=== PATIENT | female | born 1955 | race Native Hawaiian/Other Pacific Islander ===

== ENCOUNTER 2016-10-05 18:29 | Inpatient (IN) | payer MEDICARE, OTHER ==
[2016-10-05] MEDS ORDERED: SODIUM CHLORIDE 0.9% 1,000 ML IV STA (20:14)
[2016-10-05] MEDS ORDERED: SODIUM CHLORIDE 0.9% 500 ML IV STA (20:14)
[2016-10-05] MEDS ORDERED: NITROGLYCERIN SL TABS 0.4 MG TAB SUBLINGUAL STA (20:14)
[2016-10-05 20:26] LABS: Basophils % (A) 1 %; Eosinophils # (A) 0.1 k/uL (0-0.7); Eosinophils % (A) 2 %; HCT 39.3 % (34.0-46.0); HDW 2.55; Luc # (Auto) 0.09; Luc % (Auto) 1; Lymphocytes # (A) 2.5 k/uL (1.0-4.8); Lymphocytes % (A) 41 %; MCH 32.2 pg (25.0-35.0); MCHC 33.1 g/dL (31.0-37.0); MCV 97.3 fL (80.0-100.0); Mean Platelet Volume 7.1; Monocytes # (A) 0.2 k/uL (0-1.0); Monocytes % (A) 4 %; Neutrophils % (A) 51 %; RBC 4.03 m/uL (3.80-5.40); RDW 12.8 % (11.5-15.5)
--- NOTE | 2016-10-05 20:29 | ED ---
General Adult HPI - General Chief complaint: Chest Pain Stated complaint: shoulder pain Time Seen by Provider: 10/05/16 19:35 Source: patient, RN notes reviewed, old records reviewed Mode of arrival: ambulatory Limitations: no limitations - History of Present Illness Initial comments: This is a 59-year-old female here for reevaluation chest pain. Patient has history of COPD high blood pressure cholesterol and smoking, currently not on any medications, patient had stents placed thousand and 12. Patient physicians had chest pain for a week left-sided down her left arm and her left jaw and left side of her chest heaviness worse with exertion no improving factors. No recent evaluation, patient takes none of her medications. Secondary to noncompliance. No travel history no sick contacts no cough congestion or fevers - Related Data Home Medications Medication Instructions Recorded Confirmed Aspirin 325 mg PO DAILY 07/22/14 10/05/16 Calcium Carbonate [Tums] 500 mg PO TID PRN 10/05/16 10/05/16 Ibuprofen [Motrin] 600 mg PO Q8HR PRN 10/05/16 10/05/16 Allergies Allergy/AdvReac Type Severity Reaction Status Date / Time No Known Drug Allergies Allergy Unknown Unknown Verified 10/05/16 19:03 Review of Systems ROS Statement: Those systems with pertinent positive or pertinent negative responses have been documented in the HPI. ROS Other: All systems not noted in ROS Statement are negative. Past Medical History Past Medical History: Coronary Artery Disease (CAD), Chest Pain / Angina, Hyperlipidemia, Hypertension, Myocardial Infarction (MS) Last Myocardial Infarction Date:: 2011 History of Any Multi-Drug Resistant Organisms: None Reported Past Surgical History: Heart Catheterization With Stent, Tubal Ligation Additional Past Surgical History / Comment(s): left leg surgery fracture, pins and plate inserted. Past Anesthesia/Blood Transfusion Reactions: No Reported Reaction Date of Last Stent Placement:: 2011 Past Psychological History: Depression Smoking Status: Former smoker Past Alcohol Use History: None Reported Past Drug Use History: None Reported General Exam Limitations: no limitations General appearance: alert, in no apparent distress Head exam: Present: atraumatic, normocephalic, normal inspection Eye exam: Present: normal appearance, PERRL, EOMI. Absent: scleral icterus, conjunctival injection, periorbital swelling ENT exam: Present: normal exam, mucous membranes moist Neck exam: Present: normal inspection. Absent: tenderness, meningismus, lymphadenopathy Respiratory exam: Present: normal lung sounds bilaterally. Absent: respiratory distress, wheezes, rales, rhonchi, stridor Cardiovascular Exam: Present: regular rate, normal rhythm, normal heart sounds. Absent: systolic murmur, diastolic murmur, rubs, gallop, clicks GI/Abdominal exam: Present: soft, normal bowel sounds. Absent: distended, tenderness, guarding, rebound, rigid Extremities exam: Present: normal inspection, full ROM, normal capillary refill. Absent: tenderness, pedal edema, joint swelling, calf tenderness Back exam: Present: normal inspection Neurological exam: Present: alert, oriented X3, CN II-XII intact Psychiatric exam: Present: normal affect, normal mood Skin exam: Present: warm, dry, intact, normal color. Absent: rash Course Vital Signs 10/05/16 19:00 Temperature 97.8 F Pulse Rate 86 Respiratory 20 Rate Blood Pressure 215/97 O2 Sat by Pulse 99 Oximetry - Reevaluation(s) Reevaluation #1: 10/05/16 21:24 Patient remains a chest pain left-sided EKG Findings - EKG Comments: EKG Findings:: EKG shows normal sinus rhythm rate of 80, RI 146, QRS 104, QTc 459 Medical Decision Making - Medical Decision Making 59 female here for evaluation of chest pain. History of CAD, initial EKG and troponin are negative, noticed elevation EKG. Patient be admitted for anticoagulation 0 troponins, evaluation by cardiology and continued to restart medications, avoid medical noncompliance - Lab Data Result diagrams: 10/05/16 20:20 10/05/16 20:20 Lab Results 10/05/16 10/05/16 10/05/16 Range/Units 20:20 20:20 20:20 WBC 6.0 (3.8-10.6) k/uL RBC 4.03 (3.80-5.40) m/uL Hgb 13.0 (11.4-16.0) gm/dL Hct 39.3 (34.0-46.0) % MCV 97.3 (80.0-100.0) fL MCH 32.2 (25.0-35.0) pg MCHC 33.1 (31.0-37.0) g/dL RDW 12.8 (11.5-15.5) % Plt Count 215 (150-450) k/uL Neutrophils % 51 % Lymphocytes % 41 % Monocytes % 4 % Eosinophils % 2 % Basophils % 1 % Neutrophils # 3.0 (1.3-7.7) k/uL Lymphocytes # 2.5 (1.0-4.8) k/uL Monocytes # 0.2 (0-1.0) k/uL Eosinophils # 0.1 (0-0.7) k/uL Basophils # 0.0 (0-0.2) k/uL PT (9.0-12.0) sec INR (<1.1) APTT (22.0-30.0) sec Sodium 142 (137-145) mmol/L Potassium 4.1 (3.5-5.1) mmol/L Chloride 110 H (98-107) mmol/L Carbon Dioxide 22 (22-30) mmol/L Anion Gap 10 mmol/L BUN 11 (7-17) mg/dL Creatinine 0.80 (0.52-1.04) mg/dL Est GFR (MDRD) Af Amer >60 (>60 ml/min/1.73 sqM) Est GFR (MDRD) Non-Af >60 (>60 ml/min/1.73 sqM) Glucose 90 (74-99) mg/dL Calcium 8.9 (8.4-10.2) mg/dL Magnesium 1.9 (1.6-2.3) mg/dL Total Bilirubin 0.5 (0.2-1.3) mg/dL AST 25 (14-36) U/L ALT 27 (9-52) U/L Alkaline Phosphatase 70 (38-126) U/L Total Creatine Kinase 71 (30-135) U/L CK-MB (CK-2) 0.3 (0.0-2.4) ng/mL CK-MB (CK-2) Rel Index 0.4 Troponin I <0.012 (0.000-0.034) ng/mL Total Protein 7.0 (6.3-8.2) g/dL Albumin 3.9 (3.5-5.0) g/dL Lipase 163 (23-300) U/L 10/05/16 Range/Units 20:20 WBC (3.8-10.6) k/uL RBC (3.80-5.40) m/uL Hgb (11.4-16.0) gm/dL Hct (34.0-46.0) % MCV (80.0-100.0) fL MCH (25.0-35.0) pg MCHC (31.0-37.0) g/dL RDW (11.5-15.5) % Plt Count (150-450) k/uL Neutrophils % % Lymphocytes % % Monocytes % % Eosinophils % % Basophils % % Neutrophils # (1.3-7.7) k/uL Lymphocytes # (1.0-4.8) k/uL Monocytes # (0-1.0) k/uL Eosinophils # (0-0.7) k/uL Basophils # (0-0.2) k/uL PT 10.2 (9.0-12.0) sec INR 1.0 (<1.1) APTT 23.6 (22.0-30.0) sec Sodium (137-145) mmol/L Potassium (3.5-5.1) mmol/L Chloride (98-107) mmol/L Carbon Dioxide (22-30) mmol/L Anion Gap mmol/L BUN (7-17) mg/dL Creatinine (0.52-1.04) mg/dL Est GFR (MDRD) Af Amer (>60 ml/min/1.73 sqM) Est GFR (MDRD) Non-Af (>60 ml/min/1.73 sqM) Glucose (74-99) mg/dL Calcium (8.4-10.2) mg/dL Magnesium (1.6-2.3) mg/dL Total Bilirubin (0.2-1.3) mg/dL AST (14-36) U/L ALT (9-52) U/L Alkaline Phosphatase (38-126) U/L Total Creatine Kinase (30-135) U/L CK-MB (CK-2) (0.0-2.4) ng/mL CK-MB (CK-2) Rel Index Troponin I (0.000-0.034) ng/mL Total Protein (6.3-8.2) g/dL Albumin (3.5-5.0) g/dL Lipase (23-300) U/L - Radiology Data Radiology results: report reviewed (Chest x-ray 2 view negative for acute disease), image reviewed Critical Care Time Critical Care Time: Yes Total Critical Care Time: 31 Disposition Clinical Impression: Chest pain Disposition: ADMITTED IP TO THIS HOSP Condition: Undetermined Referrals: None,Stated [Primary Care Provider] - 1-2 days
[2016-10-05 20:38] LABS: ALT 27 U/L (9-52); AST 25 U/L (14-36); Alkaline Phosphatase 70 U/L (38-126); Anion Gap 10 mmol/L; Blood Urea Nitrogen 11 mg/dL (7-17); Calcium 8.9 mg/dL (8.4-10.2); Carbon Dioxide 22 mmol/L (22-30); Chloride 110 mmol/L (98-107); Creatine Kinase 71 U/L (30-135); Glucose 90 mg/dL (74-99); Magnesium 1.9 mg/dL (1.6-2.3); Non-African American GFR(MDRD) >60 (>60 ml/min/1.73 sqM); Potassium 4.1 mmol/L (3.5-5.1); Sodium 142 mmol/L (137-145); Total Bilirubin 0.5 mg/dL (0.2-1.3)
[2016-10-05 20:41] LABS: Partial Thromboplastin Time 23.6 sec (22.0-30.0); Prothrombin Time 10.2 sec (9.0-12.0)
[2016-10-05 20:52] LABS: Creatine Kinase MB 0.3 ng/mL (0.0-2.4); Troponin I <0.012 ng/mL (0.000-0.034)
--- NOTE | 2016-10-05 20:58 | XR ---
EXAMINATION TYPE: XR chest 2V DATE OF EXAM: 10/05/2016 8:35 PM COMPARISON: 07/19/2014 HISTORY: Chest pain TECHNIQUE: Frontal and lateral views of the chest are obtained. FINDINGS: Heart and mediastinum are within normal limits. Lungs are clear. Diaphragm is normal. Ther e are chest leads. The thorax is intact. IMPRESSION: Normal chest. No change.
[2016-10-05] MEDS ORDERED: MORPHINE SULFATE 4 MG/ML SYRINGE IVP STA (21:15)
[2016-10-05] MEDS ORDERED: HEPARIN SODIUM,PORCINE 5,000 UNIT/ML 1 ML VIAL IV ONE (21:21)
[2016-10-05] MEDS ORDERED: HEPARIN SODIUM,PORCINE 5,000 UNIT/ML 1 ML VIAL IV PRN (21:21)
[2016-10-05] MEDS ORDERED: ASPIRIN 81 MG CHEW PO STA (21:21)
[2016-10-05] MEDS ORDERED: NITROGLYCERIN SL TABS 0.4 MG TAB SUBLINGUAL PRN (21:21)
[2016-10-05] MEDS: HEPARIN SODIUM,PORCINE/D5W PMX 25,000 UNIT in DEXTROSE/WATER 1 500ML.BAG IV SCH (22:20)
[2016-10-05] MEDS: SODIUM CHLORIDE 0.9% 1,000 ML IV SCH (22:28)
[2016-10-05 23:20] VITALS: BMI 31.1
[2016-10-06 04:17] LABS: Creatine Kinase 61 U/L (30-135)
[2016-10-06 04:20] LABS: Cholesterol 181 mg/dL (<200); HDL Cholesterol 62 mg/dL (40-60); Triglycerides 125 mg/dL (<150)
[2016-10-06 04:30] LABS: Creatine Kinase MB 0.4 ng/mL (0.0-2.4); Troponin I <0.012 ng/mL (0.000-0.034)
[2016-10-06] MEDS: ASPIRIN 325 MG TAB PO SCH (08:52)
[2016-10-06 10:20] LABS: Creatine Kinase 59 U/L (30-135)
[2016-10-06 10:31] LABS: Creatine Kinase MB 0.3 ng/mL (0.0-2.4); Troponin I <0.012 ng/mL (0.000-0.034)
--- NOTE | 2016-10-06 12:24 | CONS ---
DATE OF CONSULTATION: Ni Seay is a patient of Dr. Wolfe who has known coronary artery disease and peripheral vascular disease. She came in complaining of chest discomfort radiating down the left arm for the last one week. She did not call Dr. Wolfe. Finally the pain was recurrent, she came to the hospital. She does complain of shortness of breath and nausea at that time, Her 12-lead ECG did not show any definite ST segment abnormalities. Three sets of cardiac enzymes have been normal. MEDICATIONS: She was supposed to be on aspirin, Plavix, lisinopril, metoprolol and simvastatin, but she has been noncompliant with the medications. REVIEW OF SYSTEMS: No fever, chills, or rigors. No cough or expectoration. She did have nausea. No vomiting, no diarrhea. No hematuria or dysuria. No strokes or seizures. No skin lesions or musculoskeletal complaints. Past history of coronary artery disease, peripheral vascular disease. 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 Wolfe in the past. On examination, her blood pressure is in normal range 131/57 mmHg, heart rate is in the 60s. She is afebrile, 98.5 degrees Fahrenheit. Head and neck examination reveals bilateral carotid bruits. Heart sounds S1 and S2 are soft. No murmurs. No gallops. Breath sounds are reduced bilaterally. No rhonchi. No crackles. Abdomen is soft, nontender. Extremities ( ) pulses. No edema. IMPRESSION: 1. Noncompliance with medical treatment. 2. Coronary artery disease, status post coronary stenting in the past. 3. Severe peripheral vascular disease, status post lower extremity interventions by Dr. Wolfe. 4. Bilateral carotid artery bruits. SUGGEST: Continue aspirin. Start atorvastatin 40 mg daily. Start beta blockers. May continue nitro paste and will speak to Dr. Wolfe regarding coronary angiography on Saturday. She has not had an acute myocardial infarction. She should be made an inpatient.
[2016-10-06] MEDS: METOPROLOL TARTRATE 25 MG TAB PO SCH ×2 (12:43→21:02)
[2016-10-06] MEDS: IBUPROFEN 400 MG TAB PO PRN ×2 (13:18→21:04)
--- NOTE | 2016-10-06 16:11 | HP ---
DATE OF ADMISSION: CHIEF COMPLAINT: Left-sided chest pain. HISTORY OF PRESENT ILLNESS: Ms. Seay is a 61-year-old female with a past medical history of coronary artery disease, status post stenting, GERD, hypertension, hyperlipidemia, osteoarthritis, coming into the hospital with a chief complaint of left-sided chest pain. The patient states that the pain is on the left side of the chest radiating to the left shoulder and left side of the neck and the right side of the neck associated with some difficulty in breathing. At times, she feels nauseous. Mild dizziness. No diaphoresis. The pain has been going on and off for the past one week. Patient does have history of coronary artery disease, status post stenting in the past, but has been noncompliant with any of her medications. She states that she cannot afford to take those pills and so has not been taking it. The only medications that she takes at home are aspirin, Motrin and calcium supplements. Patient denies having any lower extremity swelling. No cough or abdominal pain, nausea, vomiting, or diarrhea. REVIEW OF SYSTEMS: CONSTITUTIONAL: Denies having any fevers, chills or rigors. RESPIRATORY; No cough or sputum production. CARDIAC: As per HPI. GI: No abdominal pain, nausea, vomiting, or diarrhea. : No dysuria or hematuria. MUSCULOSKELETAL: No history of chronic aches or pains. HEMATOLOGICAL: No history of recurrent infections or easy bruising. All 13 review of systems are done and negative except for ones mentioned in the HPI. Past medical history is significant for coronary artery disease, status post stenting, hypertension, hyperlipidemia, osteoarthritis. PAST SURGICAL HISTORY: Heart catheterization with stenting, left leg surgery for the fracture with pins. SMOKING HISTORY: She smokes one cigarette every day in the morning with her coffee. Questionable alcohol use. No history of drug abuse. Family history of stroke in 4 of her brothers, hypertension and stroke in her sister, history of congestive heart failure in her mother. Patient's home medications are: 1. Aspirin 81 mg p.o. daily. 2. Ibuprofen 600 mg. 3. Calcium supplements. ALLERGIES: No known drug allergies. Patient's vital signs temperature 98.2, heart rate 72, respiratory rate 18, blood pressure 112./72, saturating at 97% on room air. GENERAL EXAMINATION: Patient looks appropriate for her age, appears to be in no acute distress. HEAD: Atraumatic, normocephalic. EYES: Pupils round and reactive to light. No pallor. No icterus. NECK: No JVD. No thyromegaly. CARDIOVASCULAR: S1 and S2 heard. RESPIRATORY: Bilateral breath sounds are positive. No wheeze or crackles. ABDOMEN: Soft, nontender, no organomegaly. Bowel sounds are positive. EXTREMITIES: No edema. No cyanosis. No clubbing. Peripheral pulses are felt. WAITER/WAITRESS: Alert, awake, oriented x3. No focal neurological deficits. SKIN: No rash. MUSCULOSKELETAL: No joint swelling or deformity. Patient's labs: White count of 6, hemoglobin is 13, platelets of 215. Sodium is 142, potassium 4.1, chloride 110, bicarb 22, BUN 11 and creatinine 0.80. Troponin less than 0.012 x3. ASSESSMENT AND PLAN: 1. Unstable angina. Continue with IV heparin. Cardiology services have been consulted and probably cath on Saturday. 2. Coronary artery disease, status post stenting, noncompliant with her medications. 3. Severe peripheral vascular disease, status post lower extremity stenting. 4. Nicotine dependence. 5. History of hypertension. 6. Hyperlipidemia. 7. Gastroesophageal reflux disease. 8. Osteoarthritis. PLAN: Plan is to continue the patient on IV heparin drip and probable cath on Saturday morning. Continue with the rest of her medication management. Further recommendations to follow depending on the progress of the patient. REDDD
[2016-10-06] MEDS: ATORVASTATIN 80 MG TAB PO SCH (21:02)
[2016-10-06] MEDS: SODIUM CHLORIDE 0.9% 1,000 ML IV SCH (21:03)
[2016-10-06] MEDS: HEPARIN SODIUM,PORCINE/D5W PMX 25,000 UNIT in DEXTROSE/WATER 1 500ML.BAG IV SCH (21:12)
[2016-10-07 07:25] LABS: Basophils % (A) 0 %; CH 32.6; CHCM 32.7; Eosinophils # (A) 0.2 k/uL (0-0.7); Eosinophils % (A) 5 %; HCT 36.2 % (34.0-46.0); HDW 2.46; HGB 11.8 gm/dL (11.4-16.0); Luc # (Auto) 0.16; Luc % (Auto) 4; Lymphocytes # (A) 2.5 k/uL (1.0-4.8); Lymphocytes % (A) 54 %; MCH 32.6 pg (25.0-35.0); MCHC 32.7 g/dL (31.0-37.0); MCV 99.8 fL (80.0-100.0); Mean Platelet Volume 6.7; Monocytes # (A) 0.2 k/uL (0-1.0); Monocytes % (A) 4 %; Neutrophils # (A) 1.5 k/uL (1.3-7.7); Neutrophils % (A) 33 %; RBC 3.63 m/uL (3.80-5.40); RDW 12.7 % (11.5-15.5); WBC 4.6 k/uL (3.8-10.6); WBC (Perox) 4.51
[2016-10-07 08:20] LABS: Anion Gap 6 mmol/L; Blood Urea Nitrogen 13 mg/dL (7-17); Calcium 8.7 mg/dL (8.4-10.2); Carbon Dioxide 24 mmol/L (22-30); Chloride 112 mmol/L (98-107); Glucose 92 mg/dL (74-99); Non-African American GFR(MDRD) >60 (>60 ml/min/1.73 sqM); Potassium 4.4 mmol/L (3.5-5.1); Sodium 142 mmol/L (137-145)
[2016-10-07] MEDS: ASPIRIN 325 MG TAB PO SCH (08:49)
[2016-10-07] MEDS: METOPROLOL TARTRATE 25 MG TAB PO SCH ×2 (08:49→22:44)
[2016-10-07] MEDS: ACETAMINOPHEN TAB 325 MG TAB PO PRN (08:49)
[2016-10-07 11:34] LABS: RBC Morphology Normal
[2016-10-07] MEDS ORDERED: FAMOTIDINE 20 MG TAB PO SCH (13:00)
--- NOTE | 2016-10-07 14:20 | PN ---
INTERVAL HISTORY: Ms. Seay is a 61-year-old female with a past medical history of coronary artery disease, status post stenting, GERD, hypertension, hyperlipidemia, osteoarthritis admitted to the hospital with a chief complaint of left sided chest pain. The patient has history of coronary artery disease with stenting but is noncompliant with medications as she could not afford them. Currently, the patient is on a heparin drip and the plan is to take for a cardiac cath on Saturday morning. Today, the patient is sitting up in her bed, appears to be no acute distress. She does not have any active complaints. She states that her chest pain is still present on the left side of the chest radiating to her jaw, but denies having any headache, dizziness, shortness of breath or loss of consciousness. REVIEW OF SYSTEMS: CONSTITUTIONAL: No fever, chills. RESPIRATORY: No cough. No difficulty in breathing. GI: No abdominal pain, nausea, vomiting, or diarrhea. : No dysuria or hematuria or hematuria. Patient's medications have been reviewed. On examination, patient's vital signs temperature 97.6, heart rate 59, respirations 16, blood pressure 149/67, saturating at 99% on room air. GENERAL EXAMINATION: No acute distress. HEAD: Atraumatic, normocephalic. EYES: Pupils round, and reactive to light. NECK: No JVD. No thyromegaly. CARDIOVASCULAR: S1, S2 heard. RESPIRATORY: Bilateral breath sounds are positive. No wheeze or crackles. ABDOMEN: Soft, nontender. Bowel sounds positive. EXTREMITIES: No cyanosis, no clubbing. Peripheral pulses are felt. CENTRAL NERVOUS SYSTEM: Awake, alert and oriented times three. No focal deficits. SKIN: No rash. MUSCULOSKELETAL: No joint swelling or deformity. Patient's labs: White count 4.6, hemoglobin 11.8, platelets 190, sodium 142, potassium 4.4, chloride 112, bicarb 24, BUN 13, creatinine 0.87. ASSESSMENT AND PLAN: 1. Unstable angina. Continue heparin drip. Patient is scheduled for cath for tomorrow morning so to remain n.p.o. tonight. 2. Coronary artery disease, status post stenting, noncompliant with her medications. 3. Severe peripheral vascular disease, status post lower extremity stenting. 4. Nicotine dependence. 5. History of hypertension. 6. Hyperlipidemia. 7. Gastroesophageal reflux disease. 8. Osteoarthritis. PLAN: Plan to continue with the heparin drip. Scheduled for cath on Saturday. Continue the rest of her medication regimen and further recommendations depending on the progress of the patient.
--- NOTE | 2016-10-07 18:02 | PN ---
Ni Seay is a 61-year-old female who came in complaining of anginal symptoms. She had not been taking her medications. She is a patient of Dr. Wolfe. Her cardiac enzymes are normal. Her symptoms are quite typical. Electrolytes are normal. Head and neck examination is normal. Heart sounds S1, S2 normal. No murmur, no gallops. IMPRESSION: 1. Known coronary artery disease. 2. Known severe peripheral vascular disease. 3. Past history of coronary stenting. 4. Admitted with angina like symptoms. She is to proceed with coronary angiography tomorrow. I will speak to Dr. Wolfe. Medical therapy for now. Continue current medications including aspirin, atorvastatin and metoprolol.
[2016-10-07] MEDS: ATORVASTATIN 80 MG TAB PO SCH (22:44)
[2016-10-08] MEDS: FAMOTIDINE 20 MG TAB PO SCH (06:58)
[2016-10-08] MEDS: METOPROLOL TARTRATE 25 MG TAB PO SCH ×2 (06:58→21:09)
[2016-10-08] MEDS: ASPIRIN 325 MG TAB PO SCH (06:58)
[2016-10-08] MEDS ORDERED: SODIUM CHLORIDE 0.9% 1,000 ML in EMPTY BAG 1 BAG IV ONE (08:32)
[2016-10-08] MEDS ORDERED: NITROGLYCERIN SL TABS 0.4 MG TAB SUBLINGUAL PRN (08:32)
[2016-10-08] MEDS ORDERED: ALPRAZolam 0.5 MG TAB PO PRN (08:32)
[2016-10-08] MEDS ORDERED: ALPRAZolam 0.25 MG TAB PO PRN (08:32)
[2016-10-08] MEDS ORDERED: ASPIRIN 325 MG TAB PO STA (08:32)
[2016-10-08] MEDS ORDERED: ATORVASTATIN 80 MG TAB PO STA (08:32)
--- NOTE | 2016-10-08 16:33 | PN ---
Ms. Seay is a 61 -year-old female with a past medical history of coronary artery disease, status post stenting and hypertension, hyperlipidemia, osteoarthritis, admitted to the hospital with a chief complaint of left sided chest pain. Patient has a history of coronary artery disease, status post stenting, but noncompliant with her medications as she could not afford them. She was admitted with chest pain. The patient was started on heparin drip and evaluated by cardiology and was scheduled to get a stress test this morning, but was postponed until tomorrow. ( ) the patient is lying in bed, appears to be in no acute distress. She does not have any active complaints. REVIEW OF SYSTEMS: CONSTITUTIONAL: No fever, chills, or rigors. RESPIRATORY: No cough. No difficulty breathing. GI: No abdominal pain, nausea, vomiting. : No dysuria or hematuria. Patient's medications have been reviewed. On examination, patient's vital signs, temperature is 98.7, heart rate 55, respiratory rate 16, blood pressure 150/60, saturating at 98% on room air. GENERAL EXAMINATION: No acute distress. HEAD: Atraumatic, normocephalic. EYES: Pupils, round, and reactive to light. NECK: No JVD or thyromegaly. CARDIOVASCULAR: S1, S2 muffled. ( ) RESPIRATORY: Bilateral breath sounds are positive. No wheeze or crackles. ABDOMEN: Soft, nontender. Bowel sounds are positive. EXTREMITIES: No edema. No cyanosis, no clubbing. DIESEL MECHANIC HELPER: Awake, alert and oriented x3. No focal neurological deficits. SKIN: No rash. MUSCULOSKELETAL: No joint swelling or deformity. Labs: No new labs from this morning. Labs from yesterday within normal limits. ASSESSMENT AND PLAN: 1. Unstable angina. Continue with heparin. The patient is scheduled for cath for tomorrow morning and so n.p.o. tonight. 2. Coronary artery disease, status post stenting, noncompliant with her medications. 3. Peripheral vascular disease, status post lower extremity stenting. 4. Nicotine dependence. 5. History of hypertension. 6. Hyperlipidemia. 7. Gastroesophageal reflux disease. 8. Osteoarthritis. PLAN: Plan is to continue the patient on the current medication regimen and to be kept n.p.o. tonight for catheter tomorrow morning. Further recommendations depending on the progress of the patient.
[2016-10-08] MEDS: ATORVASTATIN 80 MG TAB PO SCH (21:09)
[2016-10-09] MEDS: FAMOTIDINE 20 MG TAB PO SCH (06:04)
[2016-10-09] MEDS: ASPIRIN 325 MG TAB PO SCH (06:04)
[2016-10-09] MEDS: METOPROLOL TARTRATE 25 MG TAB PO SCH ×2 (06:47→21:12)
[2016-10-09 08:41] LABS: Glucose,Whole Blood 174 mg/dL (75-99)
[2016-10-09] MEDS ORDERED: IV FLUID CONTINUATION 1,000 ML IV ONE (11:47)
[2016-10-09] MEDS ORDERED: LIDOCAINE 2% INJ 20 MG/ML SQ ONE (12:18)
[2016-10-09] MEDS ORDERED: MIDAZOLAM 2 MG/2 ML VIAL IV ONE (12:18)
[2016-10-09] MEDS: NITROGLYCERIN 1000MCG/10ML SYRINGE INTRACORON ONE ×3 (12:34→13:25)
[2016-10-09] MEDS ORDERED: BIVALIRUDIN BOLUS 250 MG/50 ML IV ONE (12:44)
[2016-10-09] MEDS ORDERED: BIVALIRUDIN 250 MG in SODIUM CHLORIDE 0.9% 50 ML IV ONE (12:45)
[2016-10-09] MEDS ORDERED: CLOPIDOGREL 75 MG TAB PO ONE (13:32)
[2016-10-09] MEDS ORDERED: IOHEXOL 350 MG/ML 100 ML BOTTLE INJ ONE (13:33)
[2016-10-09] MEDS ORDERED: MAG HYDROX/AL HYDROX/SIMETH 30 ML CUP PO PRN (13:37)
[2016-10-09] MEDS ORDERED: NITROGLYCERIN SL TABS 0.4 MG TAB SUBLINGUAL PRN (13:37)
[2016-10-09] MEDS ORDERED: RX INFO: IV CONTRAST WAS GIVEN 1 EACH MISC MISCELLANE PRN (13:37)
[2016-10-09] MEDS ORDERED: ZOLPIDEM 5 MG TAB PO PRN (13:37)
[2016-10-09] MEDS ORDERED: ATROPINE SULFATE 0.1 MG/ML 10ML SYRINGE IV PRN (13:37)
[2016-10-09] MEDS ORDERED: SODIUM CHLORIDE 0.9% 1,000 ML IV SCH (13:45)
[2016-10-09] MEDS ORDERED: amLODIPine 10 MG TAB PO STA (14:55)
[2016-10-09] MEDS: MORPHINE SULFATE 4 MG/ML SYRINGE IV PRN ×2 (16:57→21:17)
--- NOTE | 2016-10-09 21:06 | PN ---
The patient is a 61 -year-old admitted to the hospital, came in with chest pain, underwent cardiac catheterization, underwent stenting of obtuse marginal branch OM1 and the patient ( ). REVIEW OF SYSTEMS: CARDIOVASCULAR: No chest pain, no orthopnea, no PND, no palpitations. PULMONARY: Denied any shortness of breath. No cough or hemoptysis. GASTROINTESTINAL: No diarrhea, nausea or vomiting. No abdominal pain. Normoactive bowel sounds. NEUROLOGIC: No headaches, no weakness, no numbness. Medications are reviewed. PHYSICAL EXAMINATION: VITAL SIGNS: Temperature 98.7, pulse of around 58, respiratory rate 16, blood pressure is 140/70, saturating at 98% on room air. GENERAL: The patient is alert and oriented x3, not in any acute distress. Well developed, well nourished. HEENT: Pupils are round and equally reacting to light. EOMI. No scleral icterus. No conjunctival pallor. Normocephalic, atraumatic. No pharyngeal erythema. No thyromegaly. CARDIOVASCULAR: S1 and S2 present. No murmurs, rubs, or gallops. PULMONARY: Chest is clear to auscultation, no wheezing or crackles. ABDOMEN: Soft, nontender, nondistended, normoactive bowel sounds. No palpable organomegaly. MUSCULOSKELETAL: No joint swelling or deformity. EXTREMITIES: No cyanosis, clubbing, or pedal edema. NEUROLOGICAL: Gross neurological examination did not reveal any focal deficits. SKIN: No rashes. Laboratory data reviewed. ASSESSMENT AND PLAN: 1. Unstable angina. The patient ( ) cardiac catheterization. 2. Coronary artery disease status post stenting. 3. Peripheral vascular disease. 4. Nicotine dependence. 5. Hypertension. 6. Hyperlipidemia. 7. Gastroesophageal reflux disease. 8. Osteoarthritis. PLAN: Continue with ( ) continue with beta darcie. Continue with ( ). Depending on cardiology recommendations, possibility of discharge tomorrow.
[2016-10-09] MEDS: ATORVASTATIN 80 MG TAB PO SCH (21:12)
--- NOTE | 2016-10-09 22:31 | CC ---
DATE OF SERVICE: October 09, 2016. PERFORMING PHYSICIAN: Sandip Wolfe M.D., pigment pumper. PROCEDURE PERFORMED: 1. Selective right and left coronary angiogram. 2. Successful stenting of the first obtuse marginal branch of the left circumflex using 2.5 x 15 mm integrity bare metal stent with a good angiographic results. INDICATION: This is a pleasant, 61-year-old female patient who was admitted to the hospital with chest discomfort and ruled in for acute non-ST elevation myocardial infarction. She was seen and evaluated by Dr. Galicia who recommended proceeding with a heart catheterization. The patient is known to have PAD and CAD. In 2013 she underwent a stenting of the left circumflex. Approach: Right common femoral artery. COMPLICATIONS: None. Level of sedation: Moderate. PROCEDURE DESCRIPTION: After obtaining informed consent, the patient was brought to the cardiac physical laboratory assistant. The right common femoral artery was cannulated using micropuncture technique. The micropuncture wire passed easily, then I placed 6 Swedish sheath in the right common femoral artery. Subsequently, I did selective right and left coronary angiogram. The right coronary angiogram was performed using 5 Swedish JR 4 catheter because the patient was dampening the pressure upon engaging the RCA using a 6 Swedish JR 4. The left coronary angiogram was performed using JL4 catheter. After reviewing the angiogram, we decided to intervene on the left circumflex. Please see separate paragraph for that. SELECTIVE CORONARY ANGIOGRAM: 1. Right coronary artery: The RCA is a moderate to large-caliber vessel and it is a dominant vessel. The proximal RCA appeared to have mild disease only. The mid RCA by the bifurcation of the acute marginal branch appeared to have a lesion seems to be in the range of 60%. The RCA distally appeared to have mild disease only. 2. The left main is angiographically normal. It bifurcates into the left circumflex, ramus intermedius, and left anterior descending artery. 3. The left circumflex is a large-caliber vessel and it is a nondominant vessel. The proximal left circumflex appeared to be angiographically normally. The mid left circumflex is normal and gives rises into the first and second obtuse marginal branches. The first OM branch in the ostial and proximal portion appeared to have a lesion in the range of 70%. The second OM branch, which is stented, seems to be occluded in a stent. The left circumflex in the distal portion appeared to be angiographically normal. 4. Left anterior descending artery. The proximal left anterior descending artery appeared to have a lesion in the range of 40% to 50%. The mid LAD appeared to be angiographically normal and the LAD distally is angiographically normal. The LAD gives rises into the diagonal branch, which appeared to be angiographically normal. 5. The ramus intermedius has mild disease in the proximal portion. PCI of the left circumflex: Anticoagulation was initiated using Angiomax. Subsequently, I took an XB35 LAD guide and the left main was engaged. I wired the first OM branch using a whisper wire, and I did balloon angioplasty using 20 x 12 mm balloon then I tried to advance 25 x 15 mm stent, but the stent would not make the turn from the left circumflex. At that point, I did use guide liner but again the guidewire was not making the turn by the left circumflex. At that point, I decided to wire the left circumflex using a frida wire so I wired the first OM using a run-through wire. I did balloon angioplasty second time using this time 25 x 15 mm NC balloon, which was inflated under 12 atmospheres for 20 seconds. After that, I was able to advance 25 x 15 mm integrity 25 x 15 mm integrity per medical the first OM branch, where the stent was positioned under fluoroscopy guidance and then I deployed the stent after I pulled the frida wire out. The following angiogram showed good angiographic results. CONCLUSION: 1. Occluded second OM branch of the left circumflex, which seems to be in-stent occlusion. 2. Severe disease involving the first obtuse marginal branch of the left circumflex, which seems to be de ingrid coronary artery disease. 3. Intermediate disease involving the mid RCA. 4. Intermediate disease involving the proximal LAD. 5. Successful stenting of the first OM branch of the left circumflex using 2.5 x 14 mm integrity BMS with good angiographic results. POSTPROCEDURE MANAGEMENT: 1. Dual antiplatelet therapy. 2. Coronary risk factor modifications. 3. Follow up with the patient.
[2016-10-10] MEDS: ASPIRIN 325 MG TAB PO SCH (06:04)
[2016-10-10 06:29] LABS: Basophils % (A) 0 %; CH 32.6; CHCM 32.9; Eosinophils # (A) 0.1 k/uL (0-0.7); Eosinophils % (A) 2 %; HCT 35.6 % (34.0-46.0); HDW 2.42; HGB 11.6 gm/dL (11.4-16.0); Luc # (Auto) 0.09; Luc % (Auto) 2; Lymphocytes # (A) 0.8 k/uL (1.0-4.8); Lymphocytes % (A) 19 %; MCH 32.3 pg (25.0-35.0); MCHC 32.5 g/dL (31.0-37.0); MCV 99.4 fL (80.0-100.0); Monocytes # (A) 0.2 k/uL (0-1.0); Monocytes % (A) 5 %; Neutrophils # (A) 2.9 k/uL (1.3-7.7); Neutrophils % (A) 73 %; RBC 3.58 m/uL (3.80-5.40); RDW 12.8 % (11.5-15.5); WBC 4.1 k/uL (3.8-10.6); WBC (Perox) 4.27
[2016-10-10 06:45] LABS: Anion Gap 8 mmol/L; Blood Urea Nitrogen 13 mg/dL (7-17); Calcium 8.8 mg/dL (8.4-10.2); Carbon Dioxide 24 mmol/L (22-30); Chloride 107 mmol/L (98-107); Glucose 97 mg/dL (74-99); Non-African American GFR(MDRD) >60 (>60 ml/min/1.73 sqM); Potassium 4.5 mmol/L (3.5-5.1); Sodium 139 mmol/L (137-145)
[2016-10-10] MEDS: ACETAMINOPHEN TAB 325 MG TAB PO PRN (07:23)
[2016-10-10] MEDS ORDERED: LISINOPRIL 10 MG TAB PO SCH (09:00)
[2016-10-10] MEDS: FAMOTIDINE 20 MG TAB PO SCH (09:17)
[2016-10-10] MEDS: METOPROLOL TARTRATE 25 MG TAB PO SCH (09:17)
[2016-10-10 11:42] VITALS: BP 135/63; RESP 18; TEMP 97.5
[2016-10-10] MEDS ORDERED: CLOPIDOGREL 75 MG TAB PO SCH (12:00)
--- NOTE | 2016-10-10 12:29 | P.PN ---
Subjective Principal diagnosis: Stent to the OM This is a pleasant 61-year-old female patient who follows with Dr. Lopez in the office. She has a known history of coronary artery disease and peripheral vascular disease, hypertension, hyperlipidemia, prior noncompliance with medication. She presented to the hospital with symptoms of chest discomfort, subsequent to that was taken to the cardiac catheterization lab where she underwent angioplasty with stenting of the OM. She was seen and examined this morning, denies any chest pain or difficulty in breathing. She's been up ambulating without any difficulty. The pressure this morning 134/62, heart rate in the 50s to 60s. Objective - Vital Signs Vital signs: Vital Signs Temp 97.5 F L 10/10/16 11:41 Pulse 52 L 10/10/16 11:41 Resp 18 10/10/16 11:41 BP 135/63 10/10/16 11:41 Pulse Ox 100 10/10/16 11:41 Intake & Output 10/09/16 10/10/16 10/10/16 18:59 06:59 18:59 Intake Total 881.46 1800 Output Total 1225 2200 800 Balance -343.54 -400 -800 Weight 72.3 kg 72 kg 72 kg Intake: IV 181.46 1200 Sodium Chloride 0.9% 1, 1200 000 ml @ 100 mls/hr IV . Q10H AMANDA Rx#:[id number] Intake, IV Titration 200 Amount Sodium Chloride 0.9% 1, 200 000 ml @ 100 mls/hr IV . Q10H AMANDA Rx#:[id number] Oral 500 600 Output: Urine 1225 2200 800 Other: Voiding Method Toilet Toilet Toilet # Voids 1 2 2 - Exam PHYSICAL EXAMINATION: HEENT: Head is atraumatic, normocephalic. Pupils equal, round. Neck is supple. There is no elevated jugular venous pressure. HEART EXAMINATION: Heart S1, S2 normal. No murmur or gallop heard. CHEST EXAMINATION: Lungs are clear to auscultation and precussion. No chest wall tenderness is noted on palpation or with deep breathing. ABDOMEN: Soft, nontender. Bowel sounds are heard. No organomegaly noted. Right groin soft, no evidence of any hematoma, mild tenderness noted. EXTREMITIES: 2+ peripheral pulses with no evidence of peripheral edema and no calf tenderness noted. NEUROLOGIC patient is awake, alert and oriented -3. . - Labs CBC & Chem 7: 10/10/16 05:42 10/10/16 05:42 Labs: Abnormal Lab Results - Last 24 Hours (Table) 10/10/16 Range/Units 05:42 RBC 3.58 L (3.80-5.40) m/uL Lymphocytes # 0.8 L (1.0-4.8) k/uL Assessment and Plan Plan: Assessment and plan #1 chest pain status post angioplasty and stenting of the OM #2 hypertension #3 hyperlipidemia #4 history of noncompliance #5 PVD #6 nicotine dependence From cardiology's perspective, patient may be able to be discharged home today. She's been instructed regarding the importance of taking her medications as prescribed. She's also been advised regarding nicotine cessation. She will be discharged home on aspirin 325 mg daily, Lipitor 80 mg daily, Plavix 75 mg daily , Pepcid 20 mg daily, lisinopril 10 mg daily, metoprolol tartrate 25 mg one tablet by mouth twice a day, and sublingual nitroglycerin as needed for chest pain. She has been educated regarding her medications and prescriptions for all of the above medications have been provided. DNP note has been reviewed, I agree with a documented findings and plan of care. Patient was seen and examined.
[2016-10-10 14:20] VITALS: PULSE 64
--- NOTE | 2016-10-11 08:10 | DS ---
DATE OF ADMISSION: 10/06/2016 DATE OF DISCHARGE: 10/10/2016 The patient is a 61-year-old admitted with chest pain, underwent cardiac catheterization and stenting of obtuse marginal. Patient may have acid reflux as well. Patient is being discharged today and patient is clinically doing well. Patient was seen and examined on the day of discharge. Vitals are stable. PHYSICAL EXAMINATION: GENERAL: The patient is alert and oriented x3, not in any acute distress. Well developed, well nourished. HEENT: Pupils are round and equally reacting to light. EOMI. No scleral icterus. No conjunctival pallor. Normocephalic, atraumatic. No pharyngeal erythema. No thyromegaly. CARDIOVASCULAR: S1 and S2 present. No murmurs, rubs, or gallops. PULMONARY: Chest is clear to auscultation, no wheezing or crackles. ABDOMEN: Soft, nontender, nondistended, normoactive bowel sounds. No palpable organomegaly. MUSCULOSKELETAL: No joint swelling or deformity. EXTREMITIES: No cyanosis, clubbing, or pedal edema. NEUROLOGICAL: Gross neurological examination did not reveal any focal deficits. SKIN: No rashes. FINAL DIAGNOSES: 1. Unstable angina, status post cardiac catheterization. 2. Gastroesophageal reflux disease. 3. Coronary artery disease, status post stenting. 4. Peripheral vascular disease. 5. Nicotine dependence. 6. Hypertension. 7. Hyperlipidemia. 8. Gastroesophageal reflux disease. 9. Osteoarthritis. Patient will follow with Dr. Wolfe on the october at 4:30 p.m. Patient will be referred to Dr. Shellie Bliss in about 3 to 7 days. Activity as tolerated. Cardiac diet. Spent greater than 35 minutes in total discharge process. Please refer to my depart summary for further details of discharge medications.
== END 2016-10-10 15:00 | disposition home or self-care (01) | DRG 249 ==
LOC: EC 18:29 → 3OBS 21:21 → OBSVTOIN 10-06 12:13 → 6SEL 10-08 20:16
PROVIDERS: ADMIT Hospitalist; ATTEND Hospitalist
PROC: 02703DZ Dilation of Coronary Artery, One Artery with Intraluminal Device, Percutaneous Approach (ICD-10-PCS; principal; 2016-10-09 12:00)
PROC: B2111ZZ Fluoroscopy of Multiple Coronary Arteries using Low Osmolar Contrast (ICD-10-PCS; 2016-10-09 12:00)
DX: T82.855A Stenosis of coronary artery stent, initial encounter (principal); I10 Essential (primary) hypertension; I25.110 Atherosclerotic heart disease of native coronary artery with unstable angina pectoris; I25.2 Old myocardial infarction; I73.9 Peripheral vascular disease, unspecified; J44.9 Chronic obstructive pulmonary disease, unspecified; K21.9 Gastro-esophageal reflux disease without esophagitis; M19.90 Unspecified osteoarthritis, unspecified site; E78.5 Hyperlipidemia, unspecified; F17.210 Nicotine dependence, cigarettes, uncomplicated; R09.89 Other specified symptoms and signs involving the circulatory and respiratory systems; Z91.14 Patient's other noncompliance with medication regimen; Z95.5 Presence of coronary angioplasty implant and graft; Z82.49 Family history of ischemic heart disease and other diseases of the circulatory system; Z79.82 Long term (current) use of aspirin; Z86.59 Personal history of other mental and behavioral disorders; Y84.0 Cardiac catheterization as the cause of abnormal reaction of the patient, or of later complication, without mention of misadventure at the time of the procedure
CPT/HCPCS: 36415; 71020; 80048; 80053; 80061; 82550; 82553; 83690; 83735; 84484; 85025; 85610; 85730; 92928; 93005; 93454; 96361; 96365; 96366; 96375; 96376; 99291

== ENCOUNTER → 2017-02-05 | Outpatient (CLI) | payer MEDICARE ==
--- NOTE | 2017-02-05 13:42 | MM ---
Reason for exam: screening (asymptomatic). Baseline mammogram. History: Patient is postmenopausal. Physical Findings: Nurse Summary: A 0.5 cm nodule in the left breast at 1 o'clock (nurse mm). MG 3D Screening Mammo W/Cad Bilateral CC and MLO view(s) were taken. There are scattered fibroglandular densities. Finding: There is a equal architectural distortion located 4 cm from the nipple in the upper outer quadrant, anterior position of the left breast consistent with palpable abnormality on physical exam. These results were verbally communicated with the patient and result sheet given to the patient on 02/05/17. ASSESSMENT: Incomplete: need additional imaging evaluation, BI-RAD 0 RECOMMENDATION: Ultrasound of the left breast. (Upper outer quadrant palpable)
--- NOTE | 2017-02-05 13:43 | USB ---
Reason for exam: additional evaluation requested from abnormal screening. History: Patient is postmenopausal. US Breast Workup Limited LT Left breast ultrasound demonstrates no cystic or solid lesion seen. These results were verbally communicated with the patient and result sheet given to the patient on 02/05/17. ASSESSMENT: Negative, BI-RAD 1 RECOMMENDATION: Follow-up diagnostic mammogram of the left breast in 6 months.
--- NOTE | 2017-02-05 13:44 | MM ---
Reason for exam: additional evaluation requested from abnormal screening. History: Patient is postmenopausal. Physical Findings: Breast exam preformed at baseline screening. MG 3D Work Up W/Cad LT ML, spot compression CC, and spot compression MLO view(s) were taken of the left breast. The breast tissue is heterogeneously dense. This may lower the sensitivity of mammography. There is no discrete abnormality on compression on 3D. These results were verbally communicated with the patient and result sheet given to the patient on 02/05/17. ASSESSMENT: Probably benign, BI-RAD 3 RECOMMENDATION: Follow-up diagnostic mammogram of the left breast in 6 months.
== END | disposition home or self-care (01) ==
LOC: RADMAMWWP 10:09
PROVIDERS: ATTEND Family Medicine
DX: Z12.31 Encounter for screening mammogram for malignant neoplasm of breast (principal); R92.8 Other abnormal and inconclusive findings on diagnostic imaging of breast; R92.2 Inconclusive mammogram
CPT/HCPCS: 77063; 76642; G0202; G0206; G0279

== ENCOUNTER 2017-05-27 11:30 | Emergency (ER) | payer MEDICARE ==
[2017-05-27 12:04] VITALS: RESP 16
[2017-05-27] MEDS ORDERED: HYDROcodone/APAP 5-325MG 1 EACH TAB PO STA (12:09)
--- NOTE | 2017-05-27 12:12 | ED ---
General Adult HPI - General Chief complaint: Shortness of Breath Stated complaint: [place] Time Seen by Provider: 05/27/17 12:00 Source: patient, RN notes reviewed Mode of arrival: ambulatory Limitations: no limitations - History of Present Illness Initial comments: Patient 61-year-old female who presents emergency room today with a chief complaint of right-sided chest wall pain that began after she was called by a friend. She states that she felt a pop on the side. States she's had pain located in the side since. She states she's having a difficult time sleeping at night due to pain she can't find called position. She states worse with movements or she coughs or sneezes. Patient states she's not used anything for pain at home. She denies any other complaints or symptoms. Patient denies any recent fever, chills, shortness of breath, back pain, abdominal pain, nausea or vomiting, numbness or tingling, dysuria or hematuria, constipation or diarrhea, headaches or visual changes, or any other complaints. - Related Data Home Medications Medication Instructions Recorded Confirmed Aspirin 325 mg PO DAILY 07/22/14 05/27/17 Lisinopril [Zestril] 5 mg PO DAILY 05/27/17 05/27/17 Previous Rx's Medication Instructions Recorded Atorvastatin [Lipitor] 80 mg PO HS #30 tab 10/10/16 Clopidogrel [Plavix] 75 mg PO DAILY #30 tab 10/10/16 Metoprolol Tartrate [Lopressor] 25 mg PO BID #60 tab 10/10/16 Nitroglycerin Sl Tabs [Nitrostat] 0.4 mg SUBLINGUAL Q5M PRN #25 tab 10/10/16 Hydrocodone/Acetaminophen [Frost 1 each PO Q6HR PRN #20 tab 05/27/17 5-325] Allergies Allergy/AdvReac Type Severity Reaction Status Date / Time No Known Drug Allergies Allergy Unknown Unknown Verified 05/27/17 12:21 Review of Systems ROS Statement: Those systems with pertinent positive or pertinent negative responses have been documented in the HPI. ROS Other: All systems not noted in ROS Statement are negative. Past Medical History Past Medical History: Coronary Artery Disease (CAD), Chest Pain / Angina, GERD/ Reflux, Hyperlipidemia, Hypertension, Myocardial Infarction (DC), Osteoarthritis (OA) Last Myocardial Infarction Date:: 2011 History of Any Multi-Drug Resistant Organisms: None Reported Past Surgical History: Heart Catheterization With Stent, Tubal Ligation Additional Past Surgical History / Comment(s): left leg surgery fracture, pins and plate inserted. Past Anesthesia/Blood Transfusion Reactions: No Reported Reaction Date of Last Stent Placement:: 2011 Past Psychological History: Depression Smoking Status: Current some day smoker Past Alcohol Use History: None Reported Past Drug Use History: None Reported - Past Family History Mother Family Medical History: CVA/TIA, Hypertension, Myocardial Infarction (DC) Sister(s) Family Medical History: CVA/TIA, Hypertension, Myocardial Infarction (DC) Father Family Medical History: Cancer Additional Family Medical History / Comment(s): colon CA General Exam - General Exam Comments Initial Comments: General: The patient is awake and alert, in no distress, and does not appear acutely ill. Eye: Pupils are equal, round and reactive to light, extra-ocular movements are intact. No nystagmus. There is normal conjunctiva bilaterally. No signs of icterus. Ears, nose, mouth and throat: There are moist mucous membranes and no oral lesions. Neck: The neck is supple, there is no tenderness or JVD. Cardiovascular: There is a regular rate and rhythm. No murmur, rub or gallop is appreciated. Pain reproduced on palpation to the right side of the anterior chest wall. Respiratory: Lungs are clear to auscultation, respirations are non-labored, breath sounds are equal. No wheezes, stridor, rales, or rhonchi. Musculoskeletal: Normal ROM, no tenderness. Strength 5/5. Sensation intact. Pulses equal bilaterally 2+. Neurological: A&O x 3. CN II-XII intact, There are no obvious motor or sensory deficits. Coordination appears grossly intact. Speech is normal. Skin: Skin is warm and dry and no rashes or lesions are noted. Psychiatric: Cooperative, appropriate mood & affect, normal judgment. Limitations: no limitations Course Vital Signs 05/27/17 05/27/17 11:48 12:01 Temperature 98.1 F Pulse Rate 60 Respiratory 20 16 Rate Blood Pressure 138/64 O2 Sat by Pulse 100 Oximetry Medical Decision Making - Medical Decision Making Patient reexamined at this time shows no signs of distress. Does admit to improvement of her pain medication given here in emergency room. Her EKG shows no changes from previous. Her chest x-ray is unremarkable.Discussed about nondisplaced rib fracture. Case discussed in detail with attending physician . Patient will be discharged home with pain medication advised follow- up family doctor or return here to emergency room if any symptoms worsen or for any other concerns. Disposition Clinical Impression: Rib fracture Disposition: HOME SELF-CARE Condition: Good Instructions: Rib Fracture (ED) Additional Instructions: Please use medication as prescribed. Please be aware that it may cause constipation along with dizziness or drowsiness. Please brace or hold pressure over the area if you have to cough or sneeze as discussed. Please follow-up with family doctor in the next 2 days. Please return to emergency room if the symptoms increase or worsen or for any other concerns. Prescriptions: Hydrocodone/Acetaminophen [Frost 5-325] 1 each PO Q6HR PRN #20 tab PRN Reason: Pain Referrals: Geovani Hernández MD [Primary Care Provider] - 1-2 days Time of Disposition: 13:18
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
[2017-05-27 13:24] VITALS: BP 97/54; PULSE 57; TEMP 98.8
== END 2017-05-27 13:25 | disposition home or self-care (01) ==
LOC: EC 11:30
DX: S22.31XA Fracture of one rib, right side, initial encounter for closed fracture (principal); I25.10 Atherosclerotic heart disease of native coronary artery without angina pectoris; I10 Essential (primary) hypertension; F17.200 Nicotine dependence, unspecified, uncomplicated; Z79.899 Other long term (current) drug therapy; Z79.82 Long term (current) use of aspirin; X58.XXXA Exposure to other specified factors, initial encounter
CPT/HCPCS: 71020; 93005; 99285

== ENCOUNTER → 2017-08-08 | Outpatient (CLI) | payer MEDICARE ==
--- NOTE | 2017-08-08 10:14 | MM ---
Reason for exam: follow-up at short interval from prior study. Last mammogram was performed 6 months ago. History: Patient is postmenopausal. Physical Findings: Nurse did not find any significant physical abnormalities on exam. MG 3D Diag Mammo W/Cad LT CC, MLO, and ML view(s) were taken of the left breast. Prior study comparison: February 05, 2017, left breast MG 3d work up w/cad LT. February 05, 2017, bilateral MG 3d screening mammo w/cad. There are scattered fibroglandular densities. The superior asymmetric density is unchanged for 6 months. Additional 6 month follow up can be performed. 3D images show no discrete persisting abnormality. These results were verbally communicated with the patient and result sheet given to the patient on 08/08/17. ASSESSMENT: Probably benign, BI-RAD 3 RECOMMENDATION: Follow-up diagnostic mammogram of both breasts in 6 months. Back on schedule. Manage on a clinical basis with regard to lateral breast pain.
== END | disposition home or self-care (01) ==
LOC: RADMAMWWP 08:37
PROVIDERS: ATTEND Family Medicine
DX: R92.8 Other abnormal and inconclusive findings on diagnostic imaging of breast (principal)
CPT/HCPCS: G0206; G0279

== ENCOUNTER 2017-12-27 10:59 | Inpatient (IN) | payer MEDICARE ==
[2017-12-27] MEDS ORDERED: SODIUM CHLORIDE 0.9% 500 ML IV STA (11:29)
--- NOTE | 2017-12-27 11:36 | ED ---
General Adult HPI - General Chief complaint: Neuro Symptoms/Deficit Stated complaint: Facial numbness/tingling in arm Time Seen by Provider: 12/27/17 11:30 Source: patient, RN notes reviewed Mode of arrival: ambulatory Limitations: no limitations - History of Present Illness Initial comments: This is a 62-year-old female presents emergency Department complaining of some difficulty speaking and some tingling to the left side of her face. Patient states this all started Saturday and she was hoping it would just go away. Patient states when it didn't go away just she decided to come to the emergency department check it out. Patient states she has had a cardiac history but is currently having no chest pain or palpitations. Patient denies any shortness of breath or difficulty breathing. Patient states she used to smoke but she has quit smoking. Patient denies abdominal pain patient denies nausea vomiting diarrhea. Patient denies any recent fever chills or cough. Patient denies any weakness in her extremities. Patient denies any numbness in her extremities. Patient denies any ataxia - Related Data Home Medications Medication Instructions Recorded Confirmed Aspirin 325 mg PO DAILY 07/22/14 12/27/17 Lisinopril [Zestril] 5 mg PO DAILY 05/27/17 12/27/17 Previous Rx's Medication Instructions Recorded Atorvastatin [Lipitor] 80 mg PO HS #30 tab 10/10/16 Clopidogrel [Plavix] 75 mg PO DAILY #30 tab 10/10/16 Metoprolol Tartrate [Lopressor] 25 mg PO BID #60 tab 10/10/16 Nitroglycerin Sl Tabs [Nitrostat] 0.4 mg SUBLINGUAL Q5M PRN #25 tab 10/10/16 Allergies Allergy/AdvReac Type Severity Reaction Status Date / Time No Known Drug Allergies Allergy Unknown Unknown Verified 12/27/17 11:30 Review of Systems ROS Statement: Those systems with pertinent positive or pertinent negative responses have been documented in the HPI. ROS Other: All systems not noted in ROS Statement are negative. Past Medical History Past Medical History: Coronary Artery Disease (CAD), Chest Pain / Angina, GERD/ Reflux, Hyperlipidemia, Hypertension, Myocardial Infarction (AR), Osteoarthritis (OA) Last Myocardial Infarction Date:: 2011 History of Any Multi-Drug Resistant Organisms: None Reported Past Surgical History: Heart Catheterization With Stent, Tubal Ligation Additional Past Surgical History / Comment(s): left leg surgery fracture, pins and plate inserted. Past Anesthesia/Blood Transfusion Reactions: No Reported Reaction Date of Last Stent Placement:: 2011 Past Psychological History: Depression Smoking Status: Former smoker Past Alcohol Use History: None Reported Past Drug Use History: None Reported - Past Family History Mother Family Medical History: CVA/TIA, Hypertension, Myocardial Infarction (AR) Sister(s) Family Medical History: CVA/TIA, Hypertension, Myocardial Infarction (AR) Father Family Medical History: Cancer Additional Family Medical History / Comment(s): colon CA General Exam - General Exam Comments Initial Comments: GENERAL: Patient is well-developed and well-nourished. Patient is nontoxic and well- hydrated and is in no acute distress. ENT: Neck is soft and supple. No significant lymphadenopathy is noted. Oropharynx is clear. Moist mucous membranes. Neck has full range of motion without eliciting any pain. EYES: The sclera were anicteric and conjunctiva were pink and moist. Extraocular movements were intact and pupils were equal round and reactive to light. Eyelids were unremarkable. PULMONARY: Unlabored respirations. Good breath sounds bilaterally. No audible rales rhonchi or wheezing was noted. CARDIOVASCULAR: Regular rate and rhythm no murmurs were heard ABDOMEN: Soft and nontender with normal bowel sounds. No palpable organomegaly was noted. There is no palpable pulsatile mass. SKIN: Skin is clear with no lesions or rashes and otherwise unremarkable. NEUROLOGIC: Patient is alert and oriented x3. Cranial nerves II through XII are grossly intact. Motor and sensory are also intact in the extremities. Patient has decreased sensation in the face. And occasionally the patient has a slight slur to her speech. Normal speech, volume and content. Symmetrical smile. MUSCULOSKELETAL: Normal extremities with adequate strength and full range of motion. No lower extremity swelling or edema. No calf tenderness. LYMPHATICS: No significant lymphadenopathy is noted PSYCHIATRIC: Normal psychiatric evaluation. Normal interpersonal interactions appears functionally intact in deals appropriately with others. Limitations: no limitations Course Vital Signs 12/27/17 12/27/17 12/27/17 11:03 12:11 13:00 Temperature 98 F Pulse Rate 77 63 67 Respiratory 20 17 20 Rate Blood Pressure 221/100 144/66 150/70 O2 Sat by Pulse 100 100 99 Oximetry Medical Decision Making - Medical Decision Making EKG shows normal sinus rhythm at 76 bpm IA interval is 138 QRSs 104 QT interval is 412 QTC is 463. Patient's EKG shows no ST segment elevation or depression or T wave abnormalities are noted. ct OF THE BRAIN SHOWS NO ACUTE ABNORMALITY. cHEST X-RAY SHOWS NO ACUTE NORMALITIES. i SPOKE WITH dR. Duggan AND HE AGREED TO ADMIT THE PATIENT ADMITTED THE PATIENT i WROTE ADMIT ORDERS. i CONSULT dR. Abreu. - Lab Data Result diagrams: 12/27/17 11:20 12/27/17 13:00 Lab Results 12/27/17 12/27/17 12/27/17 Range/Units 11:20 11:20 11:20 WBC 7.6 (3.8-10.6) k/uL RBC 4.02 (3.80-5.40) m/uL Hgb 12.7 (11.4-16.0) gm/dL Hct 37.8 (34.0-46.0) % MCV 94.0 (80.0-100.0) fL MCH 31.7 (25.0-35.0) pg MCHC 33.7 (31.0-37.0) g/dL RDW 13.1 (11.5-15.5) % Plt Count 258 (150-450) k/uL Neutrophils % 64 % Lymphocytes % 27 % Monocytes % 4 % Eosinophils % 1 % Basophils % 0 % Neutrophils # 4.9 (1.3-7.7) k/uL Lymphocytes # 2.0 (1.0-4.8) k/uL Monocytes # 0.3 (0-1.0) k/uL Eosinophils # 0.1 (0-0.7) k/uL Basophils # 0.0 (0-0.2) k/uL PT (9.0-12.0) sec INR (<1.2) APTT (22.0-30.0) sec Sodium 141 (137-145) mmol/L Potassium 5.9 H (3.5-5.1) mmol/L Chloride 106 (98-107) mmol/L Carbon Dioxide 23 (22-30) mmol/L Anion Gap 12 mmol/L BUN 20 H (7-17) mg/dL Creatinine 1.06 H (0.52-1.04) mg/dL Est GFR (CKD-EPI)AfAm 65 (>60 ml/min/1.73 sqM) Est GFR (CKD-EPI)NonAf 56 (>60 ml/min/1.73 sqM) Glucose 105 H (74-99) mg/dL Calcium 9.6 (8.4-10.2) mg/dL Total Bilirubin 0.4 (0.2-1.3) mg/dL AST 30 (14-36) U/L ALT 21 (9-52) U/L Alkaline Phosphatase 77 (38-126) U/L Total Creatine Kinase 150 H (30-135) U/L CK-MB (CK-2) 0.7 (0.0-2.4) ng/mL CK-MB (CK-2) Rel Index 0.5 Troponin I <0.012 (0.000-0.034) ng/mL Total Protein 7.8 (6.3-8.2) g/dL Albumin 4.6 (3.5-5.0) g/dL 12/27/17 12/27/17 Range/Units 11:20 13:00 WBC (3.8-10.6) k/uL RBC (3.80-5.40) m/uL Hgb (11.4-16.0) gm/dL Hct (34.0-46.0) % MCV (80.0-100.0) fL MCH (25.0-35.0) pg MCHC (31.0-37.0) g/dL RDW (11.5-15.5) % Plt Count (150-450) k/uL Neutrophils % % Lymphocytes % % Monocytes % % Eosinophils % % Basophils % % Neutrophils # (1.3-7.7) k/uL Lymphocytes # (1.0-4.8) k/uL Monocytes # (0-1.0) k/uL Eosinophils # (0-0.7) k/uL Basophils # (0-0.2) k/uL PT 9.5 (9.0-12.0) sec INR 1.0 (<1.2) APTT 22.6 (22.0-30.0) sec Sodium (137-145) mmol/L Potassium 5.2 H (3.5-5.1) mmol/L Chloride (98-107) mmol/L Carbon Dioxide (22-30) mmol/L Anion Gap mmol/L BUN (7-17) mg/dL Creatinine (0.52-1.04) mg/dL Est GFR (CKD-EPI)AfAm (>60 ml/min/1.73 sqM) Est GFR (CKD-EPI)NonAf (>60 ml/min/1.73 sqM) Glucose (74-99) mg/dL Calcium (8.4-10.2) mg/dL Total Bilirubin (0.2-1.3) mg/dL AST (14-36) U/L ALT (9-52) U/L Alkaline Phosphatase (38-126) U/L Total Creatine Kinase (30-135) U/L CK-MB (CK-2) (0.0-2.4) ng/mL CK-MB (CK-2) Rel Index Troponin I (0.000-0.034) ng/mL Total Protein (6.3-8.2) g/dL Albumin (3.5-5.0) g/dL Disposition Clinical Impression: Transient cerebral ischemia Disposition: ADMITTED IP TO THIS HOSP Is patient prescribed a controlled substance at d/c from ED?: No Referrals: Geovani Hernández MD [Primary Care Provider] - 1-2 days Time of Disposition: 13:43
[2017-12-27 11:53] LABS: Albumin 4.6 g/dL (3.5-5.0); Calcium 9.6 mg/dL (8.4-10.2); Potassium 5.9 mmol/L (3.5-5.1); Total Bilirubin 0.4 mg/dL (0.2-1.3); Total Protein 7.8 g/dL (6.3-8.2)
[2017-12-27 11:56] LABS: Basophils % (A) 0 %; Eosinophils # (A) 0.1 k/uL (0-0.7); Eosinophils % (A) 1 %; HCT 37.8 % (34.0-46.0); HGB 12.7 gm/dL (11.4-16.0); Lymphocytes % (A) 27 %; MCH 31.7 pg (25.0-35.0); MCHC 33.7 g/dL (31.0-37.0); Mean Platelet Volume 6.5; Monocytes # (A) 0.3 k/uL (0-1.0); Monocytes % (A) 4 %; Neutrophils # (A) 4.9 k/uL (1.3-7.7); Neutrophils % (A) 64 %; Platelet Count 258 k/uL (150-450); RBC 4.02 m/uL (3.80-5.40); RDW 13.1 % (11.5-15.5); WBC 7.6 k/uL (3.8-10.6)
[2017-12-27 12:04] LABS: Creatine Kinase 150 U/L (30-135)
[2017-12-27 12:18] LABS: Creatine Kinase MB 0.7 ng/mL (0.0-2.4); Troponin I <0.012 ng/mL (0.000-0.034)
--- NOTE | 2017-12-27 12:47 | CT ---
EXAMINATION TYPE: CT brain wo con DATE OF EXAM: 12/27/2017 COMPARISON: 07/12/2013 HISTORY: Neurologic deficit Unenhanced CT of the brain was performed. The ventricles, basal cisterns and sulci overlying the cerebral convexities demonstrate mild enlargem ent. There is no evidence for intracranial hemorrhage or sulcal effacement. There is decreased attenuation about the periventricular white matter and deep white matter of both c erebral hemispheres, compatible with chronic small vessel ischemia. Differential diagnosis does inclu de demyelination. No mass effects are seen.No midline shift. Osseous calvarium is intact. If symptoms persist consider MRI. IMPRESSION: 1. Age related atrophic and chronic small vessel ischemic change without acute intracranial process s een at this time.
--- NOTE | 2017-12-27 12:48 | XR ---
EXAMINATION TYPE: XR chest 2V DATE OF EXAM: 12/27/2017 COMPARISON: Chest x-ray May 27, 2017 HISTORY: Difficulty speaking with facial tingling TECHNIQUE: Frontal and lateral views of the chest are obtained. FINDINGS: There is chronic parenchymal change without suspicious focal air space opacity, pleural ef fusion, or pneumothorax seen. The cardiac silhouette size is within normal limits with atherosclerot ic change in aortic knob. The osseous structures are demineralized. IMPRESSION: Chronic changes without acute pulmonary process. No significant change from prior chest x-ray.
[2017-12-27 12:50] LABS: Partial Thromboplastin Time 22.6 sec (22.0-30.0); Prothrombin Time 9.5 sec (9.0-12.0)
[2017-12-27] MEDS ORDERED: ASPIRIN 325 MG TAB PO STA (13:44)
[2017-12-27] MEDS ORDERED: NITROGLYCERIN SL TABS 0.4 MG TAB SUBLINGUAL PRN (16:00)
[2017-12-27] MEDS: METOPROLOL TARTRATE 25 MG TAB PO SCH (20:39)
[2017-12-27] MEDS: ATORVASTATIN 80 MG TAB PO SCH (20:39)
[2017-12-28 07:00] LABS: Cholesterol 147 mg/dL (<200); HDL Cholesterol 66 mg/dL (40-60); LDL Cholesterol,Calculated 64 mg/dL (0-99); Triglycerides 83 mg/dL (<150)
[2017-12-28] MEDS: LISINOPRIL 5 MG TAB PO SCH (08:22)
[2017-12-28] MEDS: CLOPIDOGREL 75 MG TAB PO SCH (08:22)
[2017-12-28] MEDS: METOPROLOL TARTRATE 25 MG TAB PO SCH ×2 (08:22→19:55)
[2017-12-28] MEDS ORDERED: ASPIRIN 325 MG TAB PO SCH ×2 (09:00→12:00)
--- NOTE | 2017-12-28 11:02 | US ---
EXAMINATION TYPE: US carotid duplex BILAT DATE OF EXAM: 12/28/2017 COMPARISON: NONE CLINICAL HISTORY: TIA, bilat. bruits. EXAM MEASUREMENTS: RIGHT: Peak Systolic Velocity (PSV) cm/sec ----- Right CCA: 95.5 ----- Right ICA: 703.6 ----- Right ECA: 141.7 ICA/CCA ratio: 7.4 RIGHT: End Diastole cm/sec ----- Right CCA: 29.6 ----- Right ICA: 331.6 ----- Right ECA: 21.5 LEFT: Peak Systolic Velocity (PSV) cm/sec ----- Left CCA: 68.0 ----- Left ICA: no flow ----- Left ECA: 460.1 ICA/CCA ratio: complete occlusion LEFT: End Diastole cm/sec ----- Left CCA: 10.9 ----- Left ICA: no flow ----- Left ECA: 46.1 VERTEBRALS (direction of flow): Right Vertebral: Antegrade Left Vertebral: Antegrade Rhythm: Normal HIgh grade stenosis right side with elevated velocities and extensive plaque. Complete occlusion left side with elevated ECA velocity. Intimal thickening noted throughout. IMPRESSION: 1. GREATER THAN 70% TO NEAR OCCLUSION OF THE PROXIMAL RIGHT ICA. 2. OCCLUSION OF THE PROXIMAL LEFT ICA. 3. ELEVATED FLOW, BOTH ECAS. Criteria for Assigning % of Stenosis / Diameter reduction (Estimation based on the indirect measurements of the internal carotid artery velocities (ICA PSV). 1. Normal (no stenosis)=ICA PSV < 125 cm/s: ratio < 2.0: ICA EDV<40 cm/s. 2. Less than 50% stenosis=ICA PSV < 125 cm/s: ratio < 2.0: ICA EDV<40 cm/s. 3. 50 to 69% stenosis=ICA PSV of 125 to 230 cm/s: ration 2.0 ? 4.0: ICA EDV 40-100 cm/s. 4. Greater than 70% stenosis to near occlusion= ICA PSV > 230 cm/s: ratio > 4.0: ICA EDV > 100 cm/s. 5. Near occlusion= ICA PSV velocities may be low or undetectable: variable ratio and ICA EDV. 6. Total occlusion=unable to detect flow.
--- NOTE | 2017-12-28 14:40 | MR ---
EXAMINATION TYPE: MR brain wo/w mrane wo/wcon DATE OF EXAM: 12/28/2017 COMPARISON: Carotid ultrasound from earlier today. CT brain from yesterday HISTORY: Poss. CVA, Stenosis, Gadavist 7.5....STAT, TECHNIQUE: Multiplanar, multisequence images of the brain and brainstem is performed without and with IV contras t, utilizing 7.5 mL intravenous Gadavist . MRA imaging of the neck is performed without and with IV c ontrast. 2-D and 3-D reconstructed images are created on MRI scanner and reviewed. FINDINGS: BRAIN: Diffusion weighted images demonstrate no evidence of a recent infarct or other diffusion abnormality. There is no worrisome extra-axial fluid collection. The ventricular system and cisternal spaces ar e normal in size and appearance. The brain volume is age appropriate. There are some scattered foci of T2 hyperintensity seen throughout the white matter bilaterally. Lesions are nonspecific in appeara nce and distribution, roughly 20-30 small scattered lesions are present. There is slightly more promi nent 8 mm curvilinear subcortical left frontal lobe lesion axial image 20 noted. Midline structures demonstrate normal morphology. The craniocervical junction appears within normal limits. Post contrast images demonstrate no abnormal enhancement. The dural venous sinuses appear pa tent. The visualized sinuses are clear and the globes are intact. Nasal septum anteriorly is deviated to left of midline. IMPRESSION: 1. No evidence of a recent infarct. 2. Mild to moderate nonspecific white matter changes most likely on basis of product of chronic small vessel ischemic change in patient of this age. NECK: MRA using is suboptimal due to motion artifact degradation. The right common carotid artery dariusz ws normal origin from the right brachiocephalic artery. There is no significant plaque or stenosis. T here is more significant plaque at right carotid bulb with prominent focal narrowing at origin of rig ht internal carotid artery lumen diameter is narrowed to 2.8 x 1.3 mm axial image 75 series 801 and r econstitutes to roughly 4.5 mm diameter superior to this. Findings correlate with carotid ultrasound of roughly 75% diameter stenosis. Remainder of right internal carotid artery shows no significant foc al stenosis. Left common carotid artery is not well visualized at its origin, there appears to be trace residual f low over roughly first 4 to 5 cm length. Mid to distal common carotid artery shows no significant foc al stenosis. The left internal carotid artery is occluded at its origin. No distinct flow is present up to level of [place] of [place]. There is no significant stenosis seen in either subclavian artery on series 901. There is dominant right vertebral artery. There is nonvisualization of smaller caliber distal left ve rtebral artery. Right vertebral artery is patent to basilar junction. IMPRESSION: Markedly suboptimal study, estimated roughly 75% at origin of right internal carotid shahram ry. 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 There is significant sten osis estimated 90% at origin of left common carotid artery from arch with a long segment slightly les s prominent stenosis estimated 70% in the proximal 4 to 5 cm of the left common carotid artery. Vascu lar referral advised.
--- NOTE | 2017-12-28 16:09 | HP ---
HISTORY AND PHYSICAL CHIEF COMPLAINT: Numbness in the left arm and left side of the face. HISTORY OF PRESENT ILLNESS: This is first admission for this 62-year-old female. She has a history of coronary artery disease. She suddenly noticed numbness on the left side of the face and left arm and she came to the emergency room. Symptoms were clearing, it was determined that this was a TIA. She denies any change in her vision. She has also had a headache. CT was unremarkable. REVIEW OF SYSTEMS: She has had no fever, chills, cough, hemoptysis, nausea, vomiting, melena, hematochezia, diabetes, renal failure, etc. PAST MEDICAL HISTORY, FAMILY HISTORY, PERSONAL AND SOCIAL HISTORY: Reveal that she is not allergic to any medication. She has Nitrostat for p.r.n. use, clopidogrel 75 mg once a day, lisinopril 5 mg once a day, Metoprolol 25 mg twice a day, Atorvastatin 80 mg at bedtime, aspirin once a day. She used to be a smoker, but has stopped. She drinks occasionally. She has a family history of strokes. PHYSICAL EXAMINATION: Blood pressure is 210/100 with a pulse of 96 and regular, respirations of 40 and she is afebrile. In general, she appeared to be well developed, well nourished, and in no acute distress. Skin was dry. Head, ears, eyes, nose, mouth, and throat were normal. Neck veins were not distended. She had bilateral carotid bruits. The chest is clear to auscultation and percussion. Cardiac exam demonstrated normal sinus rhythm and no murmurs or extra sounds. Abdomen is soft, nontender without visceromegaly or masses. Extremities are normal and neurologically at this time she is intact. Cranial nerves were intact 2-12 and sensory motor exam is normal. She is admitted to the hospital with diagnoses: 1. Left-sided transient ischemic attack. 2. Atherosclerotic cardiovascular disease. 3. History of coronary artery disease. 4. Bilateral carotid bruits. PLAN: 1. Bed rest. 2. Frequent monitoring of her neurologic status and vital signs. 3. Carotid duplex imaging. 4. Echocardiogram. MMODL / IJN: [id number] /
--- NOTE | 2017-12-28 16:11 | PN ---
PROGRESS NOTE DATE OF SERVICE: 12/28/2017 CHIEF COMPLAINT: TIA. HISTORY OF PRESENT ILLNESS: This lady is doing well. She has no further neurologic problems and denies any difficulty with vision. PHYSICAL EXAM: Vital signs are normal. Blood pressure is down. Chest is clear. Cardiac exam is normal. She does have bilateral carotid bruits. IMPRESSION: 1. Transient ischemic attack. 2. Coronary artery disease. 3. Atherosclerotic cardiovascular disease. 4. Bilateral carotid bruits. PLAN: Carotid duplex imaging. This reveals 100% stenosis on one side and critical stenosis on the other. She will be referred to vascular surgery urgently. MMODL / IJN: [id number] /
[2017-12-28] MEDS ORDERED: RX INFO: IV CONTRAST WAS GIVEN 1 EACH MISC MISCELLANE PRN (16:32)
--- NOTE | 2017-12-28 16:32 | P.GSCN ---
<Marlene Field - Last Filed: 12/28/17 16:26> History of Present Illness Consult date: 12/28/17 Reason for Consult: Bilateral carotid stenosis, surgical recommendations. Requesting physician: Geovani Hernández History of present illness: This is a 62-year-old female patient who follows with Dr. Hernández on an outpatient basis. She has a previous medical history of coronary artery disease , GERD, hyperlipidemia, hypertension, myocardial infarction, osteoarthritis, depression, previous tobacco dependence, and family history of stroke and cardiac disease. She consented to [facility] emergency room with complaints of tingling to the left side of her face and arm, as well as significant occipital headache unrelieved with medication since Saturday. She denies any other symptomatology, no chest pain, palpitations, shortness of breath, fever, chills, weakness in any of her extremities. She thought it would go away, but it has not, so she presented to the emergency room. A CT of the brain was performed which demonstrated no acute process. She was admitted for stroke/TIA workup. Carotid Dopplers were ordered demonstrating complete occlusion of the left ICA, greater than 70% occlusion of the right ICA. MRI of the brain was completed demonstrating roughly 75% right internal carotid artery stenosis at the origin, as well as complete occlusion of the left internal carotid artery. Due to these findings Dr. Parisi from vascular surgery was consulted. Review of Systems 14 point review of systems was completed and was negative except as noted. - EENT Ears, nose, mouth and throat: Reports as per HPI, Reports headache - Neurological Reports as per HPI, Reports headaches, Reports numbness, Reports tingling Past Medical History Past Medical History: Coronary Artery Disease (CAD), Chest Pain / Angina, GERD/ Reflux, Hyperlipidemia, Hypertension, Myocardial Infarction ([place]), Osteoarthritis (OA) Last Myocardial Infarction Date:: 2011 and pt stated also in 2017 History of Any Multi-Drug Resistant Organisms: None Reported Past Surgical History: Heart Catheterization With Stent, Tubal Ligation Additional Past Surgical History / Comment(s): left leg surgery fracture, pins and plate inserted. 2 heart caths w/ stents Past Anesthesia/Blood Transfusion Reactions: No Reported Reaction Date of Last Stent Placement:: 2011 Smoking Status: Former smoker - Past Family History Mother Family Medical History: CVA/TIA, Hypertension, Myocardial Infarction ([place]) Sister(s) Family Medical History: CVA/TIA, Hypertension, Myocardial Infarction ([place]) Father Family Medical History: Cancer Additional Family Medical History / Comment(s): colon CA Medications and Allergies Home Medications Medication Instructions Recorded Confirmed Type Aspirin 325 mg PO DAILY 07/22/14 12/27/17 History Atorvastatin [Lipitor] 80 mg PO HS #30 tab 10/10/16 12/27/17 Rx Clopidogrel [Plavix] 75 mg PO DAILY #30 tab 10/10/16 12/27/17 Rx Metoprolol Tartrate [Lopressor] 25 mg PO BID #60 tab 10/10/16 12/27/17 Rx Nitroglycerin Sl Tabs [Nitrostat] 0.4 mg SUBLINGUAL Q5M PRN #25 tab 10/10/16 Rx Lisinopril [Zestril] 5 mg PO DAILY 05/27/17 12/27/17 History Allergies Allergy/AdvReac Type Severity Reaction Status Date / Time No Known Drug Allergies Allergy Unknown Unknown Verified 12/27/17 11:30 Surgical - Exam Vital Signs Temp Pulse Resp BP Pulse Ox 98 F 77 20 221/100 100 12/27/17 11:03 12/27/17 11:03 12/27/17 11:03 12/27/17 11:03 12/27/17 11:03 - General well developed, well nourished, no distress - Eyes PERRL, normal ocular movement - ENT no hearing loss - Neck no masses, trachea midline carotid bruit: bilateral - Respiratory Lungs sounds clear bilaterally. Respirations even, nonlabored. Currently on room air with oxygen saturation 98%. - Cardiovascular S1, S2 present. Regular rate and rhythm, sinus rhythm on telemetry. Palpable peripheral pulses bilaterally. No edema present. No calf pain or tenderness noted. - Abdomen Abdomen: soft, non tender, bowel sounds - Genitourinary Deferred - Rectum Deferred - Integumentary no rash, no growths - Neurologic normal coordination - Psychiatric oriented to time, oriented to person, oriented to place, speech is normal, memory intact Results - Labs 12/27/17 11:20 12/27/17 13:00 Abnormal Lab Results - Last 24 Hours (Table) 12/28/17 Range/Units 06:26 HDL Cholesterol 66 H (40-60) mg/dL Diabetes panel 12/28/17 Range/Units 06:26 Triglycerides 83 (<150) mg/dL HDL Cholesterol 66 H (40-60) mg/dL - Imaging Chest x-ray: report reviewed, image reviewed Additional studies: CT of the brain, MRA of the brain reviewed Assessment and Plan (1) Carotid stenosis, right Status: Chronic Code(s): I65.21 - OCCLUSION AND STENOSIS OF RIGHT CAROTID ARTERY SNOMED Code(s): 587914618084828 (2) Carotid stenosis, left Status: Chronic Code(s): I65.22 - OCCLUSION AND STENOSIS OF LEFT CAROTID ARTERY SNOMED Code(s): 941969749135666 (3) History of coronary artery disease Status: Chronic Code(s): Z86.79 - PERSONAL HISTORY OF OTHER DISEASES OF THE CIRCULATORY SYSTEM SNOMED Code(s): 034903220 (4) History of myocardial infarction Status: Resolved Code(s): I25.2 - OLD MYOCARDIAL INFARCTION SNOMED Code(s): 022619097 (5) History of coronary artery stent placement Status: Chronic Code(s): Z95.5 - PRESENCE OF CORONARY ANGIOPLASTY IMPLANT AND GRAFT SNOMED Code(s): 242142611 (6) History of hyperlipidemia Status: Chronic Code(s): Z86.39 - PERSONAL HISTORY OF ENDO, NUTRITIONAL AND METABOLIC DISEASE SNOMED Code(s): 423716678 (7) History of hypertension Status: Chronic Code(s): Z86.79 - PERSONAL HISTORY OF OTHER DISEASES OF THE CIRCULATORY SYSTEM SNOMED Code(s): 850022941 (8) Tobacco dependence in remission Status: Resolved Code(s): F17.201 - NICOTINE DEPENDENCE, UNSPECIFIED, IN REMISSION SNOMED Code(s): 076530764 (9) Transient cerebral ischemia Status: Acute Code(s): G45.9 - TRANSIENT CEREBRAL ISCHEMIC ATTACK, UNSPECIFIED SNOMED Code(s): 392147128 Plan: The patient was seen and examined at the bedside. Chart/diagnostics were reviewed. At this time we would recommend continuing aspirin, statin, Plavix. Blood pressure should be controlled but not be allowed to become hypotensive. We will order a CT angiogram of the carotids. Medical management per primary care service. Appreciate neurology recommendations. Case discussed in detail with Dr. Parisi. Patient will need right-sided carotid endarterectomy, however this is not acute. Patient can follow-up in the office on Saturday with Dr. Parisi or Dr. William. Thank you Dr. Hernández for this consult. We look forward to working with you in the care of your patient. Time with Patient: Greater than 30 <Kvng Parisi - Last Filed: 12/31/17 10:00> History of Present Illness History of present illness: Nurse practitioner notes reviewed and accepted. Symptoms not likely to be carotid in origin. However, intervention appears to be warranted in the very near future. We will await results of CT angios the carotids. We will see soon as outpatient. Surgical - Exam Osteopathic Statement: *. No significant issues noted on an osteopathic structural exam other than those noted in the History and Physical/Consult. Vital Signs Temp Pulse Resp BP Pulse Ox 98 F 77 20 221/100 100 12/27/17 11:03 12/27/17 11:03 12/27/17 11:03 12/27/17 11:03 12/27/17 11:03 Results - Labs 12/27/17 11:20 12/27/17 13:00
--- NOTE | 2017-12-28 17:31 | ECHOF ---
Referral Reason:TIA MEASUREMENTS -------- HEIGHT: 152.4 cm WEIGHT: 68.0 kg BP: RVIDd: 2.7 cm (< 3.3) IVSd: 1.2 cm (0.6 - 1.1) LVIDd: 4.3 cm (3.9 - 5.3) LVPWd: 1.3 cm (0.6 - 1.1) IVSs: 1.4 cm LVIDs: 3.0 cm LVPWs: 1.2 cm LA Diam: 3.3 cm (2.7 - 3.8) LAESV Index (A-L): 39.61 ml/m Ao Diam: 2.9 cm (2.0 - 3.7) AV Cusp: 1.5 cm (1.5 - 2.6) LA Diam: 2.9 cm (2.7 - 3.8) MV EXCURSION: 15.857 mm (> 18.000) MV EF SLOPE: 65 mm/s (70 - 150) EPSS: 0.2 cm MV E Romeo: 0.77 m/s MV DecT: 208 ms MV A Romeo: 0.20 m/s MV E/A Ratio: 3.82 RAP: 5.00 mmHg RVSP: 30.33 mmHg FINDINGS -------- Sinus rhythm. This was a techncally difficult study with suboptimal views, , Lumason utilized for enhancement of im ages. The left ventricular size is normal. There is mild concentric left ventricular hypertrophy. Overa ll left ventricular systolic function is normal with, an EF between 55 - 60 %. The right ventricle is normal in size. LA is moderately dilated 34-39 ml/m2 The right atrial size is normal. 5.0mg OF Lumason UTLIZED: 2 OR MORE WALL SEGMENTS NOT VISUALIZED. There is mild aortic valve sclerosis. There is no evidence of aortic regurgitation. Mild mitral annular calcification present. Mild mitral regurgitation is present. Mild tricuspid regurgitation present. There is no evidence of pulmonary hypertension. The right v entricular systolic pressure, as measured by Doppler, is 30.33mmHg. There is no pulmonic regurgitation present. The aortic root size is normal. There is no pericardial effusion. CONCLUSIONS -------- 1. Sinus rhythm. 2. This was a techncally difficult study with suboptimal views, , Lumason utilized for enhancement of images. 3. The left ventricular size is normal. 4. There is mild concentric left ventricular hypertrophy. 5. Overall left ventricular systolic function is normal with, an EF between 55 - 60 %. 6. LA is moderately dilated 34-39 ml/m2 7. 5.0mg OF Lumason UTLIZED: 2 OR MORE WALL SEGMENTS NOT VISUALIZED. 8. There is mild aortic valve sclerosis. 9. Mild mitral annular calcification present. 10. Mild mitral regurgitation is present. 11. Mild tricuspid regurgitation present. 12. There is no evidence of pulmonary hypertension. 13. There is no pulmonic regurgitation present. 14. The aortic root size is normal. 15. There is no pericardial effusion. SOFTWARE QUALITY AUTOMATION ENGINEER: Natasha Puga RDCS
[2017-12-28] MEDS: ATORVASTATIN 80 MG TAB PO SCH (19:55)
--- NOTE | 2017-12-28 23:06 | P.CNNES ---
History of Present Illness Consult date: 12/28/17 Requesting physician: Kvng Pitts Reason for Consult: TIA Chief complaint: left facial and left-sided weakness History of Present Illness: Neurology is consulting on a 62-year-old female complaining of difficulty noted with tingling of the left side of face which began approximately 4 days ago. Symptoms progressed to involve the left upper lower extremity with numbness and tingling and altered sensation. Patient states that she also then began having left upper and lower extremity weakness as well as drifting to the left with ambulation. Patient does have a history of cardiac stenting but no prior TIA, CVA or other neurological history. Patient denies any headache, fever, chills, diplopia or other vision changes at this time. Patient also denies any unilateral weakness or numbness and tingling with the tongue. Carotid Doppler notes greater than 70% near occlusion of the proximal right ICA. Occlusion of the proximal left ICA. Elevated flows in both ECAs. CT brain noted no acute process. MR angiogram head and neck was ordered and noted roughly 75% at the origin of the right internal carotid artery occlusion. Complete occlusion of the entire left internal carotid artery. Significant stenosis estimated 90% at the origin of the left common carotid artery from arch with a long segment slightly less prominent stenosis estimated 70% in the proximal 4-5 cm of the left common carotid artery. Radiologist notes vascular referral advised. Per orders, vascular consult has already been requested. Patient is alert and oriented 3, resting in bed in no acute distress. Review of Systems systems not noted in HPI or negative Past Medical History Past Medical History: Coronary Artery Disease (CAD), Chest Pain / Angina, GERD/ Reflux, Hyperlipidemia, Hypertension, Myocardial Infarction ([place]), Osteoarthritis ([place]) Last Myocardial Infarction Date:: 2011 and pt stated also in 2017 History of Any Multi-Drug Resistant Organisms: None Reported Past Surgical History: Heart Catheterization With Stent, Tubal Ligation Additional Past Surgical History / Comment(s): left leg surgery fracture, pins and plate inserted. 2 heart caths w/ stents Past Anesthesia/Blood Transfusion Reactions: No Reported Reaction Date of Last Stent Placement:: 2011 Smoking Status: Former smoker - Past Family History Mother Family Medical History: CVA/TIA, Hypertension, Myocardial Infarction ([place]) Sister(s) Family Medical History: CVA/TIA, Hypertension, Myocardial Infarction ([place]) Father Family Medical History: Cancer Additional Family Medical History / Comment(s): colon CA Medications and Allergies Home Medications Medication Instructions Recorded Confirmed Type Aspirin 325 mg PO DAILY 07/22/14 12/27/17 History Atorvastatin [Lipitor] 80 mg PO HS #30 tab 10/10/16 12/27/17 Rx Clopidogrel [Plavix] 75 mg PO DAILY #30 tab 10/10/16 12/27/17 Rx Metoprolol Tartrate [Lopressor] 25 mg PO BID #60 tab 10/10/16 12/27/17 Rx Nitroglycerin Sl Tabs [Nitrostat] 0.4 mg SUBLINGUAL Q5M PRN #25 tab 10/10/16 Rx Lisinopril [Zestril] 5 mg PO DAILY 05/27/17 12/27/17 History Allergies Allergy/AdvReac Type Severity Reaction Status Date / Time No Known Drug Allergies Allergy Unknown Unknown Verified 12/27/17 11:30 Physical Examination - Vital Signs Vital Signs: Vital Signs Temp Pulse Resp BP Pulse Ox 12/28/17 19:51 97.0 F L 65 18 124/59 95 12/28/17 16:19 97.7 F 71 16 118/56 98 12/28/17 12:05 97.7 F 56 L 16 178/84 100 12/28/17 08:00 97.6 F 73 16 121/56 99 12/28/17 04:00 97.9 F 70 16 105/52 98 12/28/17 00:44 61 12/27/17 23:57 98.5 F 63 16 113/81 100 Intake and Output 12/28/17 12/28/17 12/28/17 06:59 14:59 22:59 Intake Total 360 230 Output Total 500 600 Balance -140 -370 Intake: Oral 360 230 Output: Urine 500 600 Other: Voiding Method Toilet Toilet Toilet # Voids 2 2 1 Weight 68.4 kg General appearance: Alert & oriented x3, no apparent distress. Head: Atraumatic, normocephalic, normal inspection Eyes: Well appearance, PERRLA, EOMI. Ear, nose and throat: Normal exam, mucous membranes moist Neck: Normal inspection, absent tenderness, lymphadenopathy. Respiratory: No increased work of breathing Cardiovascular: Regular rate, rhythm GI/abdominal: nontender, nondistended Extremities: full range of motion, left upper and lower extremity weakness as noted below, decreased sensation in the left upper and lower extremities. Neurological: cranial nerves II through XII intact Left-sided lateralizing weakness no seizure activity noted on physical exam left pronator drift and horizontal nystagmus noted, finger to nose produces diplopia and blurred vision Left lower extremity: 3+/5 Right lower extremity: 4+/5 Left upper extremity: 3+/5 Right upper extremity: 4+/5 Sensation: diminished left upper and left lower extremity, left face (V1, V2, V3 ) Psychological: Mood and affect appropriate for setting. Results imaging as previously noted. lipid panel: All results are within normal limits with the exception of HDL which is elevated. - Laboratory Findings CBC and BMP: 12/27/17 11:20 12/27/17 13:00 Abnormal Lab Findings: Abnormal Labs 12/27/17 12/27/17 12/27/17 11:20 11:20 13:00 Potassium 5.9 H 5.2 H BUN 20 H Creatinine 1.06 H Glucose 105 H Total Creatine Kinase 150 H HDL Cholesterol 12/28/17 06:26 Potassium BUN Creatinine Glucose Total Creatine Kinase HDL Cholesterol 66 H Assessment and Plan (1) Left-sided weakness Narrative/Plan: On physical exam, patient does have decreased upper and lower extremity muscle strength as well as decreased sensation in the left upper and lower extremities. Physical exam findings are consistent with patient's extensive stenosis related findings on imaging. Patient is at high risk for stroke at this time. continue to decrease stroke risk: Continue 81 mg aspirin daily Continue Plavix as prescribed Continue Lipitor as prescribed Strict neuro checks for any neurological changes with immediate notification to neurology with any new deficits Neurological checks to be conducted no less than every 4 hours. Current Visit: Yes Status: Acute Code(s): R53.1 - WEAKNESS SNOMED Code(s) : 219693514 (2) Carotid stenosis Narrative/Plan: As noted on imaging, significant stenosis. Defer to vascular team for further recommendations and treatment Current Visit: Yes Status: Acute Code(s): I65.29 - OCCLUSION AND STENOSIS OF UNSPECIFIED CAROTID ARTERY SNOMED Code(s): 16717508 (3) Coronary artery disease Narrative/Plan: defer to vascular team for further recommendations and treatment Current Visit: Yes Status: Acute Code(s): I25.10 - ATHSCL HEART DISEASE OF [place] CORONARY ARTERY W/O ANG PCTRS SNOMED Code(s): 30927033 (4) Transient cerebral ischemia Narrative/Plan: Patient does appear to have experienced a TIA however patient's symptoms are still present greater than 48 hours after onset. Imaging does not note any new ischemic changes. However, the patient is at significant risk for developing full stroke based on significant stenosis as previously discussed. EEG ordered Recommend consult for PT, OT if not already requested stress medication adherence and compliance with patient. Current Visit: Yes Status: Acute Code(s): G45.9 - TRANSIENT CEREBRAL ISCHEMIC ATTACK, UNSPECIFIED SNOMED Code(s): 650362565 (5) History of coronary artery stent placement Narrative/Plan: patient does have history of stent placement, defer to previous medical records for dates and number of stents placed. Patient did not have good recollection of events at that time. Current Visit: Yes Status: Chronic Code(s): Z95.5 - PRESENCE OF CORONARY ANGIOPLASTY IMPLANT AND GRAFT SNOMED Code(s): 875881178 (6) History of hyperlipidemia Narrative/Plan: Although the patient's only abnormal related to lipid panel results is elevated HDL, patient still needs maximum statin therapy due to significant stenosis as previously noted. continue Lipitor at existing dose and frequency Current Visit: Yes Status: Chronic Code(s): Z86.39 - PERSONAL HISTORY OF ENDO, NUTRITIONAL AND METABOLIC DISEASE SNOMED Code(s): 987045939 (7) History of hypertension Narrative/Plan: maintain blood pressure within normal limits, prevent hypotensive situation and monitor for any neurological changes. Current Visit: Yes Status: Chronic Code(s): Z86.79 - PERSONAL HISTORY OF OTHER DISEASES OF THE CIRCULATORY SYSTEM SNOMED Code(s): 583890420 (8) History of myocardial infarction Narrative/Plan: [place] preceded stent placement, defer to prior medical records for further information. Current Visit: No Status: Resolved Code(s): I25.2 - OLD MYOCARDIAL INFARCTION SNOMED Code(s): 292283220 (9) Tobacco dependence in remission Narrative/Plan: Discussed with patient tobacco cessation. Stressed with patient that she must maintain strict abstinence from tobacco or other smoking-related products due to significant risk for stroke with ongoing use given her overall comorbidities. Current Visit: No Status: Resolved Code(s): F17.201 - NICOTINE DEPENDENCE, UNSPECIFIED, IN REMISSION SNOMED Code(s): 487433016 Plan: neurology will continue to follow provide updates as needed or warranted. I have discussed the plan of care with the physician prior to implementation and he agrees with the plan as implemented.
[2017-12-29 05:20] VITALS: RESP 16
[2017-12-29] MEDS: CLOPIDOGREL 75 MG TAB PO SCH (08:22)
[2017-12-29] MEDS: METOPROLOL TARTRATE 25 MG TAB PO SCH (08:23)
[2017-12-29] MEDS: LISINOPRIL 5 MG TAB PO SCH (08:23)
[2017-12-29 08:29] VITALS: PULSE 68
[2017-12-29] MEDS ORDERED: ASPIRIN 81 MG PO SCH (09:00)
[2017-12-29 11:59] VITALS: BP 129/53; TEMP 97.6
--- NOTE | 2017-12-29 15:00 | P.PN ---
Subjective Progress Note Date: 12/29/17 Principal diagnosis: TIA Interval update: (12/29/17): Patient does appear to have had a TIA that exceeded 48 hour time window which is now considered positive for CVA. Patient still has unchanged left upper and lower extremity deficits as noted previously yesterday. Patient's left facial numbness and tingling has resolved. Patient states her condition is overall a main relatively unchanged. Patient is known to have significant stenosis at 100 % and 70% in the carotid arteries. Vascular has seen the patient and is recommending outpatient follow-up early next week. Patient is alert and oriented 3, resting in bed in no acute distress. She reports no new neurological deficits at this time. Initial information: Neurology is following and a 62-year-old female complaining of left-sided facial numbness and tingling as well as left upper and lower extremnumbness and tingling and altered sensation with weakness. Patient began having left upper and lower extremity weakness as well as drifting to the left with ambulation prior to presentation in the emergency room. Patient has a history of cardiac stenting with no prior TIA or CVA or other neurological history. Patient denied any headache, fever, chills diplopia or other vision changes at the time. Patient also denies any history lateralizing weakness or numbness and tingling with the tongue. Objective - Vital Signs Vital signs: Vital Signs Temp 97.6 F 12/29/17 11:57 Pulse 68 12/29/17 11:57 Resp 16 12/29/17 11:57 BP 129/53 12/29/17 11:57 Pulse Ox 98 12/29/17 11:57 Intake & Output 12/28/17 12/29/17 12/29/17 18:59 06:59 18:59 Intake Total 590 Output Total 1100 Balance -510 Weight 69.3 kg Intake: Oral 590 Output: Urine 1100 Other: Voiding Method Toilet Toilet Toilet # Voids 2 1 - Exam General appearance: Alert & oriented x3. Head: Atraumatic, normocephalic, normal inspection Eyes: Well appearance, PERRLA, EOMI. Ear, nose and throat: Normal exam, mucous membranes moist Neck: Normal inspection, absent tenderness, lymphadenopathy. Respiratory: No increased work of breathing Cardiovascular: Regular rate, rhythm GI/abdominal: nontender nondistended, no guarding Extremities: All range of motion, normal capillary refill, no tenderness, pedal edema joint swelling, calf tenderness. Neurological: cranial nerves II through XII intact left-sided lateralizing weakness no seizure activity noted on physical exam left pronator drift and no nystagmus. Left lower extremity: 3+/5 Right lower extremity: 4+/5 Left upper extremity: 3+/5 Right upper extremity: 4+/5 Sensation: decreased in left upper and left lower extremity as well as left face Psychological: Mood and affect appropriate for setting. - Labs CBC & Chem 7: 12/27/17 11:20 12/27/17 13:00 Assessment and Plan (1) Left-sided weakness Narrative/Plan: On physical exam, patient does have decreased upper and lower extremity muscle strength as well as decreased sensation in the left upper and lower extremities. Physical exam findings are consistent with patient's extensive stenosis related findings on imaging. Patient is at high risk for stroke at this time. continue to decrease stroke risk: Continue 81 mg aspirin daily Continue Plavix as prescribed Continue Lipitor as prescribed neuro checks every shift. Status: Acute Code(s): R53.1 - WEAKNESS SNOMED Code(s): 905435986 (2) Carotid stenosis Narrative/Plan: As noted on imaging, significant stenosis. Defer to vascular team for further recommendations and treatment Status: Acute Code(s): I65.29 - OCCLUSION AND STENOSIS OF UNSPECIFIED CAROTID ARTERY SNOMED Code(s): 96537529 (3) Coronary artery disease Narrative/Plan: defer to vascular team for further recommendations and treatment Status: Acute Code(s): I25.10 - ATHSCL HEART DISEASE OF [place] CORONARY ARTERY W/O ANG PCTRS SNOMED Code(s): 51518277 (4) Transient cerebral ischemia Narrative/Plan: Patient does appear to have experienced a TIA however patient's symptoms are still present greater than 48 hours after onset, condition is noww considered CVA. Imaging does not note any new ischemic changes. However, the patient is at significant risk in the future given the significant stenosis noted. EEG ordered Recommend consult for PT, OT if not already requested stress medication adherence and compliance with patient. Status: Acute Code(s): G45.9 - TRANSIENT CEREBRAL ISCHEMIC ATTACK, UNSPECIFIED SNOMED Code(s): 399444281 (5) History of coronary artery stent placement Narrative/Plan: patient does have history of stent placement, defer to previous medical records for dates and number of stents placed. Patient did not have good recollection of events at that time. Status: Chronic Code(s): Z95.5 - PRESENCE OF CORONARY ANGIOPLASTY IMPLANT AND GRAFT SNOMED Code(s): 920263217 (6) History of hyperlipidemia Narrative/Plan: Although the patient's only abnormal related to lipid panel results is elevated HDL, patient still needs maximum statin therapy due to significant stenosis as previously noted. continue Lipitor at existing dose and frequency Status: Chronic Code(s): Z86.39 - PERSONAL HISTORY OF ENDO, NUTRITIONAL AND METABOLIC DISEASE SNOMED Code(s): 835830080 (7) History of hypertension Narrative/Plan: maintain blood pressure within normal limits, prevent hypotensive situation and monitor for any neurological changes. Status: Chronic Code(s): Z86.79 - PERSONAL HISTORY OF OTHER DISEASES OF THE CIRCULATORY SYSTEM SNOMED Code(s): 740180293 Plan: neurology will the patient for discharge from a neurological standpoint if EEG is only remaining testing to be completed prior to discharge. If not completed prior to discharge, EEG can be performed in the outpatient setting. Patient to follow up with our office within 14 days. I have discussed the plan of care with the physician prior to implementation and he agrees with the plan as implemented.
--- NOTE | 2017-12-30 20:11 | DS ---
DISCHARGE SUMMARY DATE OF DISCHARGE: 12/29/2017 CHIEF COMPLAINT: Left-sided facial weakness and numbness in the left arm. HISTORY OF PRESENT ILLNESS AND PHYSICAL EXAMINATION: Details of this lady's history and physical can be found in the initial workup. LABORATORY STUDIES: While she was in the hospital she had laboratory studies, details of which can be found in the laboratory section of her chart. COURSE IN THE HOSPITAL: After admission she was placed on bedrest, started on intravenous fluids and frequent monitoring of her neurologic status and vital signs. All of her neurologic symptoms disappeared. Studies demonstrated an occluded internal carotid and tight stenosis on the other side. She was referred to Vascular Surgery, and they felt she could be discharged and be seen in 2 weeks. She will go home on her usual activity and diet: She will be kept on Plavix and aspirin. She will be seen in a day or two. FINAL DIAGNOSES: 1. Transient ischemic attack. 2. Carotid occlusive disease. 3. Atherosclerotic cardiovascular disease. 4. Essential hypertension. OPERATIONS: None. CONSULTATIONS: Vascular Surgery. She is improved. MMODL / EULAN: [id number] /
--- NOTE | 2018-01-02 13:11 | CDI ---
Last Revision, August 2017 Documentation Clarification Form Date: 01/02/18 From: Jossie Danny Sofy Fontana, Hvac Installer between 8:30 am & 5 pm Moon Admit Date: 12/27/2017 1:50:00 PM Patient Name: Ni Seay Visit Number: [id number] Discharge Date: 12/29/17 ATTENTION: The Clinical Documentation Specialists (CDI) and [facility] Coding Staff appreciate your assistance in clarifying documentation. Please respond to the clarification below the line at the bottom and electronically sign. The CDI & [facility] Coding staff will review the response and follow-up if needed. Please note: Queries are made part of the Legal Health Record. If you have any questions, please contact the author of this message via ITS. Dr. Geovani Hernández TIA is documented as a diagnosis in the H&P & DS. Carotid US: greater than 70% to near occlusion of the proximal right ICA and occlusion of proximal left ICA Referral to vascular surgery, follow up in 2 weeks for surgery In your professional opinion, please specify underlying etiology of the transient ischemic attack: Carotid Sinus Syncope Carotid Stenosis Other (please specify): Etiology unknown or Unable to determine Please continue to document in your progress notes and discharge summary in order to capture severity of illness and risk of mortality. Include clinical findings that support your diagnosis. MTDD
--- NOTE | 2018-01-08 13:59 | MISC ---
MISCELLANOUS REPORT QUERY: Transient ischemic attack. Underlying etiology was carotid stenosis. MMHARVEYL / IJN: [id number] /
== END 2017-12-29 13:35 | disposition home or self-care (01) | DRG 68 ==
LOC: EC 10:59 → OBSVTOIN 13:50 → 6SEL 13:50 → UNDODISOB 12-29 13:35
PROVIDERS: ADMIT Family Medicine; ATTEND Family Medicine
DX: I65.23 Occlusion and stenosis of bilateral carotid arteries (principal); E78.5 Hyperlipidemia, unspecified; R29.702 NIHSS score 2; R40.2142 Coma scale, eyes open, spontaneous, at arrival to emergency department; R40.2362 Coma scale, best motor response, obeys commands, at arrival to emergency department; R40.2252 Coma scale, best verbal response, oriented, at arrival to emergency department; I25.10 Atherosclerotic heart disease of native coronary artery without angina pectoris; K21.9 Gastro-esophageal reflux disease without esophagitis; I10 Essential (primary) hypertension; I25.2 Old myocardial infarction; F17.201 Nicotine dependence, unspecified, in remission; M19.91 Primary osteoarthritis, unspecified site; Z79.02 Long term (current) use of antithrombotics/antiplatelets; Z79.82 Long term (current) use of aspirin; Z79.899 Other long term (current) drug therapy; Z86.59 Personal history of other mental and behavioral disorders; Z95.5 Presence of coronary angioplasty implant and graft; Z98.51 Tubal ligation status; Z82.49 Family history of ischemic heart disease and other diseases of the circulatory system; Z82.3 Family history of stroke; Z80.0 Family history of malignant neoplasm of digestive organs
CPT/HCPCS: 36415; 70450; 70549; 70553; 71046; 80053; 80061; 82550; 82553; 83090; 84132; 84484; 85025; 85610; 85730; 93005; 93306; 93880; 99285

== ENCOUNTER → 2018-01-01 | Outpatient (CLI) | payer MEDICARE ==
--- NOTE | 2018-01-01 09:58 | CT ---
EXAMINATION TYPE: CT angio neck DATE OF EXAM: 01/01/2018 HISTORY: carotid stenosis COMPARISON: MRA dated 12/27/2017 CT DLP: 250.7 mGycm. Automated Exposure Control for Dose Reduction was Utilized. TECHNIQUE: CTA scan of the neck is performed with IV Contrast, patient injected with 65 mL of Isovue 370, axial images are obtained, coronal and sagittal reformatted images are reviewed. Three-D recons tructed images are created on an independent workstation and reviewed. FINDINGS: Carotid/Vascular Structures: Left: There is approximately 90% stenosis at the origin of the left common carotid artery extending a pproximately 3.5 cm in length. At the level of the inferior thyroid gland luminal caliber transitions at although slightly smaller than the right there is no focal stenosis. Subsequently there is comple te occlusion of the left carotid bulb and remaining visualized portion of the left internal carotid a rtery with no contrast seen in the visualized intracranial portions. External carotid artery is paten t. Right: Minimal nonhemodynamically significant stenosis is seen at the origin of the right common car otid artery. Common carotid artery is patent. There is approximately 70% stenosis within a short segm ent at the right carotid bulb measuring approximately 1 cm. Subsequent to this there is only minimal nonhemodynamically significant plaquing within the right internal carotid artery just distal to the c arotid bulb and within the supraclinoid portion. Approximately 50% stenosis is seen within the cavern ous portion of the internal carotid artery. The left vertebral artery is extremely diminutive in comparison to the right but is patent. The visua lized portions of the [place] are patent. Ascending thoracic aorta and its visualized portions none enlarged measuring 2.9 cm. Descending thora cic aorta measures up to 2.1 cm. Other: Mild multilevel degenerative change of the cervical spine is noted. Small posterior disc osteo phyte complexes are seen at C3-C4 and C4-C5 creating mild spinal canal stenosis. This finding is bett er evaluated with MRI. No pneumothorax is seen within the lung apices or focal consolidation. IMPRESSION: 1. Complete occlusion of the left carotid bulb and visualized portions of the left internal carotid a rtery. 2. Approximately 90% stenosis in a long segment of approximately 3.5 cm in length of the ostia and pr oximal left common carotid artery. 3. Approximately 70% stenosis in a short segment of approximately 1 cm at the right carotid bulb. 4. Stenosis of the cavernous portion of the right internal carotid artery of approximately 50%. Visua lized portions of the [place] appear patent. 5. Mild multilevel degenerative change of the cervical spine with posterior disc osteophyte complexes at C3-C4 and C4-C5 appearing to create mild spinal canal stenosis.
== END | disposition home or self-care (01) ==
LOC: RADCTMAIN 08:02
PROVIDERS: ATTEND Thoracic Surgery (Cardiothoracic Vascular Surgery)
DX: I65.23 Occlusion and stenosis of bilateral carotid arteries (principal)
CPT/HCPCS: 70498; Q9967

== ENCOUNTER → 2018-01-28 | Outpatient (CLI) | payer MEDICARE ==
[2018-01-28 15:33] LABS: Basophils % (A) 0 %; Eosinophils # (A) 0.2 k/uL (0-0.7); Eosinophils % (A) 3 %; HCT 36.8 % (34.0-46.0); HGB 12.1 gm/dL (11.4-16.0); Lymphocytes # (A) 2.1 k/uL (1.0-4.8); Lymphocytes % (A) 40 %; MCH 31.8 pg (25.0-35.0); MCHC 32.9 g/dL (31.0-37.0); MCV 96.7 fL (80.0-100.0); Mean Platelet Volume 7.2; Monocytes # (A) 0.2 k/uL (0-1.0); Monocytes % (A) 4 %; Neutrophils # (A) 2.6 k/uL (1.3-7.7); Neutrophils % (A) 50 %; Platelet Count 233 k/uL (150-450); RDW 13.4 % (11.5-15.5); WBC 5.2 k/uL (3.8-10.6)
[2018-01-28 15:38] LABS: Appearance,Urine Clear (Clear); Bacteria,Urine Rare /hpf; Bilirubin,Urine Negative (Negative); Blood,Urine Negative (Negative); Color,Urine Light Yellow; Glucose,Urine (UA) Negative (Negative); Ketones,Urine Negative (Negative); Leukocyte Esterase,Urine Trace (Negative); Nitrite,Urine Negative (Negative); Protein,Urine Negative (Negative); RBC,Urine <1 /hpf (0-5); Squamous Epithelial Cell,Urine <1 /hpf (0-4); Urobilinogen,Urine <2.0 mg/dL (<2.0); WBC,Urine 1 /hpf (0-5)
[2018-01-28 15:48] LABS: Partial Thromboplastin Time 23.8 sec (22.0-30.0); Prothrombin Time 9.7 sec (9.0-12.0)
[2018-01-28 16:10] LABS: Potassium 4.8 mmol/L (3.5-5.1)
== END | disposition home or self-care (01) ==
LOC: LABPAT 14:42
PROVIDERS: ATTEND Surgery
DX: Z01.812 Encounter for preprocedural laboratory examination (principal); I65.21 Occlusion and stenosis of right carotid artery
CPT/HCPCS: 36415; 80051; 81001; 82565; 84520; 85025; 85610; 85730

== ENCOUNTER 2018-02-05 07:30 | Inpatient (IN) | payer MEDICARE ==
[2018-01-30 12:52] VITALS: BMI 29.7
[~2018-02-05 07:30] MED LIST: DEXAMETHASONE SOD PHOSPHATE 10 MG/ML 1 ML VIAL IV ONE; EPINEPHrine 2 MG in DEXTROSE 5% IN WATER 250 ML IV SCH; HYDROmorphone 0.5 MG/0.5 ML SYRINGE IVP PRN; LACTATED RINGERS 1,000 ML IV SCH; MIDAZOLAM 2 MG/2 ML VIAL IV PRN; MORPHINE SULFATE 4 MG/ML SYRINGE IV PRN; ONDANSETRON 4 MG/2 ML VIAL IVP ONE; ONDANSETRON 4 MG/2 ML VIAL IVP PRN
[2018-02-05] MEDS ORDERED: MIDAZOLAM 2 MG/2 ML VIAL ONE (09:40)
[2018-02-05] MEDS ORDERED: SUCCINYLCHOLINE CHLORIDE 100 MG/5 ML SYR IV ONE (09:40)
[2018-02-05] MEDS ORDERED: fentaNYL (PF) 50 MCG/ML 2 ML AMP ONE (09:40)
[2018-02-05] MEDS ORDERED: ROCURONIUM BROMIDE 10 MG/ML 10 ML VIAL IV ONE (09:40)
[2018-02-05] MEDS ORDERED: LIDOCAINE 1% INJ 10MG/ML (20 ML MDV) ONE (09:40)
[2018-02-05] MEDS ORDERED: NEOSTIGMINE 1 MG/ML 10 ML VIAL ONE (09:40)
[2018-02-05] MEDS ORDERED: PHENYLEPHRINE-0.9% NACL SYG 1 MG/10 ML SYRINGE ONE (09:40)
[2018-02-05] MEDS ORDERED: GLYCOPYRROLATE 0.2 MG/ML 2 ML VIAL ONE (09:40)
[2018-02-05] MEDS ORDERED: PROPOFOL 10 MG/ML 20 ML VIAL IV ONE (09:40)
[2018-02-05] MEDS ORDERED: ePHEDrine SULFATE/0.9% NACL/PF 50 MG/5 ML SYRINGE IV ONE (09:40)
[2018-02-05] MEDS ORDERED: ceFAZolin 1,000 MG in DEXTROSE/WATER 1 50ML.BAG IVPB ONE (09:45)
[2018-02-05] MEDS ORDERED: GELATIN SPONGE,ABSORB (LARGE) 1 EACH SPONGE MISCELLANE ONE (10:15)
[2018-02-05] MEDS ORDERED: THROMBIN (BOVINE) 5,000 UNIT VIAL MISCELLANE ONE (10:15)
[2018-02-05] MEDS ORDERED: LACTATED RINGERS 1,000 ML IV ONE (12:12)
[2018-02-05] MEDS: NITROGLYCERIN-D5W PMX 50 MG in DEXTROSE/WATER 1 250ML.BAG IV SCH ×2 (12:21→14:22)
[2018-02-05] MEDS ORDERED: diphenhydrAMINE 50 MG/ML 1 ML VIAL IVP ONE (12:40)
--- NOTE | 2018-02-05 12:47 | P.OP ---
Date of Procedure: 02/05/18 Preoperative Diagnosis: Hemodynamically severe right internal carotid artery stenosis Postoperative Diagnosis: Same Procedure(s) Performed: Right carotid endarterectomy with patch angioplasty Anesthesia: LAYNE Surgeon: Tae Navarrete Estimated Blood Loss (ml): 75 Urine output (ml): 200 Condition: stable Disposition: PACU Indications for Procedure: 70% right internal carotid artery stenosis with known total occlusion of the left internal carotid artery Operative Findings: Hemodynamically severe right ICA stenosis Description of Procedure: Patient was brought the upper and placed in the supine position and administered general endotracheal anesthesia delivered by the department of anesthesiology. The patient had received intravenously administered prophylactic antibiotics in the perioperative phase. Inf[place] catheter was placed to gravity drainage. The right lateral neck supraclavicular and anterior chest wall areas were sterilely prepped and draped in usual manner. A skin incision along the anterior border sternocleidomastoid muscle was made carried down through subjacent tissues. The incision was maintained at least one finger breath away from the angle of the mandible to protect the marginal mandibular nerve. Incision was deepened through the subcutaneous tissues. Hemostasis was achieved using electrocautery. Dissection was carried through the platysma muscle and along the anterior border the sternocleidomastoid muscle which was retracted posteriorly and inferiorly. Crossing veins were identified and doubly ligated with silk suture and transected. Carotid sheath was entered. The common carotid artery was identified dissected free of investing tissues. A vessel loop was placed around the proximal portion of the exposed carotid artery. The vagus nerve was identified and left undisturbed. Dissection was then carried cephalad along the common carotid to the level of bulb was reached. The superior thyroid artery was identified dissected free of investing tissues and encircled with vessel loop. Similar procedures performed for the external carotid artery. The dissection was then carried cephalad along the internal carotid artery. The hypoglossal nerve was identified and left undisturbed. The internal carotid artery was dissected free of investing tissues and a vessel loop was placed around the internal carotid artery distal to the bulk of the plaque. The patient received 6000 units of heparin intravenously and ACT is were drawn. Peak ACT was noted to be 248. Vessel loops surrounding the superior thyroid and external carotid, internal carotid and common carotid arteries were drawn closed and arteriotomy was made in the common carotid and extended with Pott Jeffries scissors through the bulb and into the internal carotid segment. A shunt was then placed in the internal carotid artery back bled and placed in the common carotid artery, thus restoring flow into the internal system. Endarterectomy was then performed beginning at the level of common and extending cephalad to the level of bulb. Retraction endarterectomy was performed on the external system. The dissection was carried cephalad into the internal carotid and the distal end feathered off well without need for tacking suture. The remaining luminal surface was inspected for any loose or free- floating material and this was removed when identified. Patch angioplasty utilizing bovine pericardial patch was performed with the use of 6-0 Prolene suture. Just prior to completion of the anastomotic line the shunt was removed. Backbleeding was allowed to occur through the internal carotid artery and no thrombus was retrieved. Similarly the external carotid as well as the common carotid were flushed and no thrombus was retrieved. The anastomotic line was completed. Backbleeding was allowed to occur through the internal. The internal was then occluded at its origin and Vesseloops loosened along both the external carotid and superior thyroid arteries followed by the common carotid artery, thus flushing any potential debris into the external system. Flow was then restored into the internal system. 2 points of bleeding along the anastomotic line were identified and these were controlled with 6-0 Prolene suture. The patient received 25 mg of protamine. Topical thrombin and Gelfoam were placed about the anastomotic line to help assure hemostasis. The wound was inspected for hemostasis this was judged be adequate. Deep tissues were closed with 3-0 Vicryl dermis was closed with 4-0 Monocryl placed in running intradermal fashion Steri-Strips appropriate dressings were applied. Patient tolerated the procedure well awoke without apparent neurologic dysfunction was transferred to the recovery area satisfactory and stable condition.
[2018-02-05] MEDS ORDERED: HYDROmorphone 0.5 MG/0.5 ML SYRINGE IVP ONE ×2 (13:05→13:20)
[2018-02-05] MEDS ORDERED: HYDROcodone/APAP 5-325MG 1 EACH TAB PO PRN (13:14)
[2018-02-05 15:03] LABS: Glucose,Whole Blood 135 mg/dL (75-99)
[2018-02-05] MEDS: LACTATED RINGERS 1,000 ML IV SCH ×2 (15:07→23:45)
[2018-02-05] MEDS: HYDROcodone/APAP 5-325MG 1 EACH TAB PO PRN ×2 (15:14→21:33)
[2018-02-05] MEDS ORDERED: BENZOCAINE/MENTHOL LOZENG 1 EACH LOZENGE MUCOUS MEM PRN (15:24)
[2018-02-05] MEDS ORDERED: MAG HYDROX/AL HYDROX/SIMETH 30 ML CUP PO PRN (15:24)
[2018-02-05] MEDS ORDERED: ACETAMINOPHEN TAB 325 MG TAB PO PRN (15:24)
[2018-02-05] MEDS ORDERED: NITROGLYCERIN SL TABS 0.4 MG TAB SUBLINGUAL PRN (15:30)
[2018-02-05] MEDS: LISINOPRIL 5 MG TAB PO SCH (16:43)
[2018-02-05] MEDS: ceFAZolin 1,000 MG in DEXTROSE/WATER 1 50ML.BAG IVPB SCH (17:25)
[2018-02-05] MEDS ORDERED: ATORVASTATIN 80 MG TAB PO SCH (21:00)
[2018-02-05] MEDS: METOPROLOL TARTRATE 25 MG TAB PO SCH (21:33)
[2018-02-06 05:54] LABS: Albumin 2.8 g/dL (3.5-5.0); Calcium 8.6 mg/dL (8.4-10.2); Potassium 4.6 mmol/L (3.5-5.1); Total Bilirubin 0.2 mg/dL (0.2-1.3); Total Protein 5.1 g/dL (6.3-8.2)
[2018-02-06 06:02] LABS: Basophils % (A) 0 %; Eosinophils % (A) 1 %; HCT 30.2 % (34.0-46.0); Lymphocytes # (A) 1.3 k/uL (1.0-4.8); Lymphocytes % (A) 20 %; MCH 31.9 pg (25.0-35.0); MCHC 32.5 g/dL (31.0-37.0); MCV 97.9 fL (80.0-100.0); Mean Platelet Volume 6.8; Monocytes # (A) 0.3 k/uL (0-1.0); Monocytes % (A) 5 %; Neutrophils % (A) 74 %; Platelet Count 184 k/uL (150-450); RBC 3.08 m/uL (3.80-5.40); RDW 13.6 % (11.5-15.5); WBC 6.8 k/uL (3.8-10.6)
[2018-02-06 06:12] LABS: HGB 9.8 gm/dL (11.4-16.0)
[2018-02-06] MEDS: ceFAZolin 1,000 MG in DEXTROSE/WATER 1 50ML.BAG IVPB SCH (07:39)
[2018-02-06] MEDS: METOPROLOL TARTRATE 25 MG TAB PO SCH (08:39)
[2018-02-06] MEDS: LISINOPRIL 5 MG TAB PO SCH (08:39)
[2018-02-06] MEDS: HYDROcodone/APAP 5-325MG 1 EACH TAB PO PRN (08:40)
--- NOTE | 2018-02-06 08:54 | P.PN ---
Progress Note - Text Progress Note Date: 02/06/18 Subjective: Patient has mild neck discomfort. No other voice symptoms. Objective: Vital signs stable. Neurologically intact. Neck incision shows minimal swelling and minimal redness. No drainage. Assessment: Stable first day postop right carotid endarterectomy. No contraindications to discharge. Plan: Discussed in detail patient's postop wound care and activity instructions. She will follow up with Dr. Posadas in the office in a week.
[2018-02-06] MEDS ORDERED: ASPIRIN 325 MG TAB PO SCH (09:00)
[2018-02-06] MEDS ORDERED: ASPIRIN 81 MG PO SCH (09:00)
[2018-02-06] MEDS ORDERED: CLOPIDOGREL 75 MG TAB PO SCH (09:00)
[2018-02-06 09:35] VITALS: PULSE 65
[2018-02-06 13:13] VITALS: BP 116/65; RESP 16; TEMP 98.1
--- NOTE | 2018-02-06 17:53 | PN ---
PROGRESS NOTE DATE OF SERVICE: 02/06/18. CHIEF COMPLAINT: Right carotid endarterectomy. HISTORY OF PRESENT ILLNESS: This lady is doing well. She has had no problems with vision or difficulty with either side. She has had no headache. She has had no arrhythmias. PHYSICAL EXAM: Neurologically, she is intact. Chest is clear. Cardiac exam normal. Dressing is dry on the right side of the neck. IMPRESSION: Status post right carotid endarterectomy. PLAN: No change in program and she may be going home as early as today. MMODL / IJN: [id number] /
--- NOTE | 2018-02-06 18:29 | CONS ---
CONSULTATION CHIEF COMPLAINT: Recent TIA. HISTORY OF PRESENT ILLNESS: This is another admission for this 62-year-old female who had a TIA. She was found to have a tight right carotid stenosis and has been brought in for elective carotid endarterectomy. REVIEW OF SYSTEMS: At the present time, she is doing well. She has had no change in vision or hearing, focal neurologic deficits, chest pain, shortness of breath, syncope, urinary complaints, etc. Past medical history, family and personal and social histories are all otherwise unremarkable and noncontributory and can be found in her recent hospital documents and admitting history and physical. REVIEW OF SYSTEMS: She has had no change in vision or hearing, shortness of breath, cough, hemoptysis, chest pain, orthopnea, PND, abdominal pain, nausea, vomiting, hematemesis, melena, hematochezia, jaundice, hematuria, frequency, urgency, renal failure, diabetes, etc. PHYSICAL EXAM: Blood pressure is 140/72, pulse 68, respirations of 18. She is afebrile. In general she appeared to be well developed, well nourished, no acute distress. Skin color is normal. Skin is warm, dry. Lymph nodes not enlarged. Head, ears, eyes, nose, mouth, and throat were normal. Neck veins not distended. Thyroid is not enlarged. Chest is clear. Cardiac exam is normal. The abdomen is soft and nontender. Extremities: Normal. Neurological: She is intact. IMPRESSION: Right carotid occlusive disease. RECOMMENDATIONS: None at this time. MMODL / IJN: [id number] /
== END 2018-02-06 13:40 | disposition home or self-care (01) | DRG 39 ==
LOC: 2ORMAIN 07:39 → 6ICU 13:18
PROVIDERS: ADMIT Surgery; ATTEND Surgery
PROC: 03UK0JZ Supplement Right Internal Carotid Artery with Synthetic Substitute, Open Approach (ICD-10-PCS; 2018-02-05)
PROC: 03CK0ZZ Extirpation of Matter from Right Internal Carotid Artery, Open Approach (ICD-10-PCS; principal; 2018-02-05 09:30)
DX: I65.23 Occlusion and stenosis of bilateral carotid arteries (principal); E78.5 Hyperlipidemia, unspecified; I10 Essential (primary) hypertension; F32.9 Major depressive disorder, single episode, unspecified; K21.9 Gastro-esophageal reflux disease without esophagitis; I25.10 Atherosclerotic heart disease of native coronary artery without angina pectoris; M19.91 Primary osteoarthritis, unspecified site; I73.9 Peripheral vascular disease, unspecified; I25.2 Old myocardial infarction; Z79.02 Long term (current) use of antithrombotics/antiplatelets; Z79.82 Long term (current) use of aspirin; Z79.899 Other long term (current) drug therapy; Z95.5 Presence of coronary angioplasty implant and graft; Z87.891 Personal history of nicotine dependence; Z86.73 Personal history of transient ischemic attack (TIA), and cerebral infarction without residual deficits; Z98.51 Tubal ligation status; Z80.9 Family history of malignant neoplasm, unspecified; Z82.3 Family history of stroke
CPT/HCPCS: 80053; 85025; 86850; 86900; 86901; 88304; 88311

== ENCOUNTER 2018-02-21 19:09 | Emergency (ER) | payer MEDICARE ==
[2018-02-21 19:22] VITALS: RESP 18
--- NOTE | 2018-02-21 20:45 | ED ---
General Adult HPI - General Chief complaint: Wound/Laceration Stated complaint: open incision Time Seen by Provider: 02/21/18 19:42 Source: patient, RN notes reviewed Mode of arrival: ambulatory Limitations: no limitations - History of Present Illness Initial comments: 62-year-old female since to the emergency department for a chief complaint of wound daily has since times one day. Patient had neck surgery 2 weeks ago and states the wound opened up today. Patient states she is not sure what to do so came to the emergency department. Patient has not discussed this with the surgeon. Patient denies any fevers or chills at home. Patient states the wound is draining somewhat. Patient has no other complaints at this time including shortness of breath, chest pain, abdominal pain, nausea or vomiting, headache, or visual changes. - Related Data Home Medications Medication Instructions Recorded Confirmed Aspirin 325 mg PO DAILY 07/22/14 02/21/18 Lisinopril [Zestril] 5 mg PO DAILY 05/27/17 02/21/18 Multivit-Min/Iron/Folic/Lutein 1 tab PO DAILY 01/30/18 02/21/18 [Centrum Silver Women Tablet] Ibuprofen [Motrin] 800 mg PO QID PRN 02/21/18 02/21/18 Previous Rx's Medication Instructions Recorded Atorvastatin [Lipitor] 80 mg PO HS #30 tab 10/10/16 Clopidogrel [Plavix] 75 mg PO DAILY #30 tab 10/10/16 Metoprolol Tartrate [Lopressor] 25 mg PO BID #60 tab 10/10/16 Nitroglycerin Sl Tabs [Nitrostat] 0.4 mg SUBLINGUAL Q5M PRN #25 tab 10/10/16 Cephalexin [Keflex] 500 mg PO Q8H 10 Days cap 02/21/18 Allergies Allergy/AdvReac Type Severity Reaction Status Date / Time No Known Drug Allergies Allergy Unknown Unknown Verified 02/21/18 19:36 Review of Systems ROS Statement: Those systems with pertinent positive or pertinent negative responses have been documented in the HPI. ROS Other: All systems not noted in ROS Statement are negative. Past Medical History Past Medical History: Coronary Artery Disease (CAD), GERD/Reflux, Hyperlipidemia , Hypertension, Myocardial Infarction (ID), Osteoarthritis (OA), Skin Disorder Additional Past Medical History / Comment(s): hx migraines, TIA-1 month ago-occ numbness left side of face, "little spots on my face", Last Myocardial Infarction Date:: History of Any Multi-Drug Resistant Organisms: None Reported Past Surgical History: Heart Catheterization With Stent, Orthopedic Surgery, Tubal Ligation Additional Past Surgical History / Comment(s): left ankle surgery fracture, pins and plate inserted. 2 cardiac stents, neck surgery Past Anesthesia/Blood Transfusion Reactions: No Reported Reaction Date of Last Stent Placement:: 09/2016 Past Psychological History: No Psychological Hx Reported Smoking Status: Former smoker Past Alcohol Use History: None Reported Past Drug Use History: None Reported - Past Family History Mother Family Medical History: CVA/TIA, Hypertension, Myocardial Infarction (ID) Sister(s) Family Medical History: CVA/TIA, Hypertension, Myocardial Infarction (ID) Father Family Medical History: Cancer Additional Family Medical History / Comment(s): colon CA General Exam Limitations: no limitations General appearance: alert, in no apparent distress Head exam: Present: atraumatic, normocephalic, normal inspection Eye exam: Present: normal appearance ENT exam: Present: normal exam, normal oropharynx, mucous membranes moist, TM's normal bilaterally, normal external ear exam Neck exam: Present: tenderness (tenderness around wound dehiscence.), full ROM, other (there is a 3 cm area of wound dehiscence over the left side of the neck. No deep structures exposed. No foreign bodies. There is some drainage from the wound. No cellulitic changes or spreading redness). Absent: meningismus Respiratory exam: Present: normal lung sounds bilaterally. Absent: respiratory distress, wheezes, rales, rhonchi, stridor Cardiovascular Exam: Present: regular rate, normal rhythm, normal heart sounds. Absent: systolic murmur, diastolic murmur, rubs, gallop, clicks Course Vital Signs 02/21/18 02/21/18 19:20 20:57 Temperature 98.6 F 98.4 F Pulse Rate 86 76 Respiratory 18 18 Rate Blood Pressure 123/52 145/61 O2 Sat by Pulse 99 99 Oximetry Medical Decision Making - Medical Decision Making 62-year-old female presents to the emergency department for a chief complaint of wound dehiscence times one day. Patient had neck surgery about 2 weeks ago and states that it opened up today. There is some drainage. Wound was cultured. There is a 3 cm area of wound dehiscence in the right side neck. No cellulitic changes. No spreading redness. Wound was cleaned and Steri-Strips were applied. It was covered with gauze. Patient was also given Keflex. She will follow-up with surgeon in 1-2 days. It was recommended that she follow up this weekend and try to get a hold of them. She will try to keep the area clean and covered. She will return if she has any other worsening symptoms. Disposition Clinical Impression: Wound dehiscence Disposition: HOME SELF-CARE Condition: Good Instructions: Wound Dehiscence (ED) Additional Instructions: Please try to keep wound covered and closed as much as possible. Please take antibiotic as directed. Please follow-up with the surgeon as soon as possible. You should tried to reach the surgeon or a partner this weekend. Return to the emergency department if you have any additional concerns. Prescriptions: Cephalexin [Keflex] 500 mg PO Q8H 10 Days cap Is patient prescribed a controlled substance at d/c from ED?: No Referrals: Geovani Hernández MD [Primary Care Provider] - 1-2 days Time of Disposition: 20:45
[2018-02-21 20:58] VITALS: BP 145/61; PULSE 76; TEMP 98.4
== END 2018-02-21 21:14 | disposition home or self-care (01) ==
LOC: EC 19:09
DX: T81.31XA Disruption of external operation (surgical) wound, not elsewhere classified, initial encounter (principal); I25.10 Atherosclerotic heart disease of native coronary artery without angina pectoris; E78.5 Hyperlipidemia, unspecified; I10 Essential (primary) hypertension; I25.2 Old myocardial infarction; Z86.73 Personal history of transient ischemic attack (TIA), and cerebral infarction without residual deficits; Z95.5 Presence of coronary angioplasty implant and graft; Z79.82 Long term (current) use of aspirin; Z79.899 Other long term (current) drug therapy; Z87.891 Personal history of nicotine dependence
CPT/HCPCS: 87070; 87077; 87186; 87205; 99283

== ENCOUNTER → 2019-06-18 | Outpatient (CLI) | payer MEDICARE, OTHER ==
--- NOTE | 2019-06-18 14:41 | MM ---
Reason for exam: additional evaluation requested from prior study. Last mammogram was performed 1 year and 10 months ago. History: Patient is postmenopausal. Physical Findings: Nurse did not find any significant physical abnormalities on exam. MG 3D Diag Mammo W/Cad LEEANNE Bilateral CC and MLO view(s) were taken. Prior study comparison: August 08, 2017, left breast MG 3d diag mammo w/cad LT. February 05, 2017, left breast MG 3d work up w/cad LT. The breast tissue is heterogeneously dense. This may lower the sensitivity of mammography. There is no discrete abnormality. These results were verbally communicated with the patient and result sheet given to the patient on 06/18/19. ASSESSMENT: Negative, BI-RAD 1 RECOMMENDATION: Routine screening mammogram of both breasts in 1 year.
== END | disposition home or self-care (01) ==
LOC: RADMAMWWP 13:09
PROVIDERS: ATTEND Family Medicine
DX: R92.8 Other abnormal and inconclusive findings on diagnostic imaging of breast (principal)
CPT/HCPCS: 77066; G0279; 77062

== ENCOUNTER 2021-04-25 10:43 | Day surgery (SDC) | payer MEDICARE, OTHER ==
--- NOTE | 2021-04-24 11:14 | HP ---
HISTORY AND PHYSICAL CHIEF COMPLAINT: Right ankle pain. HISTORY OF PRESENT ILLNESS: The patient is a 65-year-old female who presents with right ankle pain after an injury on 04/16/2021 after slipping and falling down some stairs at home. She was seen in the emergency room and underwent closed reduction of her right ankle fracture/dislocation. She has been non-weightbearing since. She denies previous injury. PAST MEDICAL HISTORY: Significant for coronary artery disease, hypertension, myocardial infarction, hypercholesterolemia. PAST SURGICAL HISTORY: Significant for cardiac stent placement x2 in addition to previous left ankle surgery. CURRENT MEDICATIONS: Aspirin, atorvastatin, hydrochlorothiazide, hydralazine, losartan, metoprolol. ALLERGIES: SHE DENIES DRUG ALLERGIES. FAMILY HISTORY: Negative. SOCIAL HISTORY: Negative for current tobacco or alcohol use. REVIEW OF SYSTEMS: Sixteen-point review of systems is otherwise reviewed and is noncontributory. PHYSICAL EXAMINATION: On examination, the patient is approximately 5 feet tall, 150 pounds of endomorphic habitus. HEENT exam is nonfocal. Neck is supple. She has painless passive motion of her right hip. Straight-leg raise is negative. She is nontender about the right knee and proximal fibula. On examination of the right ankle, she has moderate medial and lateral swelling and tenderness. Skin is intact. Her range of motion is limited because of pain. No mid or forefoot tenderness is noted. Her distal neurovascular exam appears intact in the right lower extremity. X-rays to include 3 views of the right ankle obtained in the office show a displaced bimalleolar ankle fracture. IMPRESSION: 1. Right displaced bimalleolar ankle fracture, closed. 2. History of coronary artery disease. RECOMMENDATIONS: I talked to the patient at length regarding her condition and treatment options. At this point, I recommend proceeding with surgical intervention. We will plan to proceed with open reduction and internal fixation of her right bimalleolar ankle fracture. Risks and benefits were discussed at length in layman's terms. MMODL / IJN: [id number] /
[2021-04-24 12:35] VITALS: BMI 29.2
[~2021-04-25 10:43] MED LIST changes: -DEXAMETHASONE SOD PHOSPHATE 10 MG/ML 1 ML VIAL IV ONE; +DEXAMETHASONE SOD PHOSPHATE 4 MG/ML 1 ML VIAL IV ONE; -EPINEPHrine 2 MG in DEXTROSE 5% IN WATER 250 ML IV SCH; -MORPHINE SULFATE 4 MG/ML SYRINGE IV PRN; -ONDANSETRON 4 MG/2 ML VIAL IVP PRN
[2021-04-25 11:37] LABS: HCT 38.3 % (34.0-46.0); HGB 13.4 gm/dL (11.4-16.0); MCH 35.1 pg (25.0-35.0); MCHC 34.8 g/dL (31.0-37.0); MCV 100.7 fL (80.0-100.0); Macrocytosis Slight; Mean Platelet Volume 7.8; Platelet Count 260 k/uL (150-450); RBC 3.81 m/uL (3.80-5.40); RDW 13.3 % (11.5-15.5); WBC 6.3 k/uL (3.8-10.6)
[2021-04-25] MEDS ORDERED: LIDOCAINE 2% (PF) 20 MG/ML 5 ML VIAL ONE ×2 (11:38→11:40)
--- NOTE | 2021-04-25 11:42 | XR ---
EXAMINATION TYPE: XR chest 1V DATE OF EXAM: 04/25/2021 COMPARISON: NONE HISTORY: Preop TECHNIQUE: Single frontal view of the chest is obtained. FINDINGS: There is no focal air space opacity, pleural effusion, or pneumothorax seen. The cardiac silhouette size is within normal limits. The osseous structures are intact. Hyperinflation correlat e for COPD. Diffuse osteopenia and arthropathy of the shoulders. Atherosclerotic change of the aorta. IMPRESSION: No acute process.
[2021-04-25 11:47] LABS: Potassium 4.1 mmol/L (3.5-5.1)
[2021-04-25] MEDS ORDERED: MIDAZOLAM 2 MG/2 ML VIAL IVP ONE (11:48)
[2021-04-25] MEDS ORDERED: LIDOCAINE 1% INJ 10MG/ML (20 ML MDV) ONE (12:28)
[2021-04-25] MEDS ORDERED: ePHEDrine SULFATE/0.9% NACL/PF 50 MG/5 ML SYRINGE IV ONE (12:28)
[2021-04-25] MEDS ORDERED: fentaNYL (PF) 50 MCG/ML 2 ML AMP ONE (12:28)
[2021-04-25] MEDS ORDERED: PROPOFOL 10 MG/ML 20 ML VIAL IV ONE (12:28)
[2021-04-25] MEDS ORDERED: GLYCOPYRROLATE 0.2 MG/ML 2 ML VIAL ONE (12:28)
[2021-04-25] MEDS ORDERED: SODIUM CHLORIDE 0.9% (PF) 10 ML VIAL ONE (12:28)
[2021-04-25] MEDS ORDERED: ROPIVACAINE 5 MG/ML 30 ML VIAL ONE (12:28)
[2021-04-25] MEDS ORDERED: ceFAZolin 1,000 MG in SODIUM CHLORIDE 0.9% 1,000 ML IRRIGATION ONE (13:06)
--- NOTE | 2021-04-25 13:36 | P.ANPRN ---
Procedure Note - Anesthesia - Nerve Block Performed Right Adductor Canal Single Time Out Performed: Yes Date of Procedure: 04/25/21 Location of Patient: PreOp Indication: Acute Post-Operative Pain, Dx/Pain Location (Right ankle), Requested by Surgeon Specifically requested for management of pain by : Wero Fairchild Sedation Type: Sedate with meaningful contact maintained Preparation: Sterile Prep Position: Supine Catheter: None Needle Types: Pajunk Needle Gauge: 21 Ultrasound used to visualize needle placement: Yes Ultrasound used to observe medication spread: Yes Injectate: 0.5% Ropivacaine (see comment for volume) (15CC and 10 mL of 1% lidocaine) Blood Aspirated: No Pain Paresthesia on Injection Noted: No Resistance on Injection: Normal Image Stored and Saved: Yes Events: Uneventful and Well Tolerated Right Popliteal Single Time Out Performed: Yes Date of Procedure: 04/25/21 Location of Patient: PreOp Indication: Acute Post-Operative Pain, Dx/Pain Location (Right ankle) Sedation Type: Sedate with meaningful contact maintained (Right ankle) Preparation: Sterile Prep Position: Left Lateral Catheter: None Needle Types: Pajunk Needle Gauge: 21 Ultrasound used to visualize needle placement: Yes Ultrasound used to observe medication spread: Yes Injectate: 0.5% Ropivacaine (see comment for volume) (15 mL +10 mL of 1% lidocaine plus Decadron 4 mg) Blood Aspirated: No Pain Paresthesia on Injection Noted: No Resistance on Injection: Normal Image Stored and Saved: Yes Events: Uneventful and Well Tolerated
[2021-04-25 14:21] VITALS: TEMP 97.6
--- NOTE | 2021-04-25 14:24 | P.OP ---
Date of Procedure: 04/25/21 Preoperative Diagnosis: Displaced right bimalleolar ankle fracture Postoperative Diagnosis: Same Procedure(s) Performed: Open reduction and internal fixation right bimalleolar ankle fracture Implants: Arthrex lateral distal fibular plate, 3.5 x 44 mm partially threaded cannulated cancellous screws 2. Anesthesia: [facility] Surgeon: Wero Fairchild [employer] Marketing Representative #1: Bernabe Arias Estimated Blood Loss (ml): 10 Pathology: none sent Condition: stable Disposition: PACU Indications for Procedure: The patient's a 65-year-old female who presents after falling injuring her right ankle recently. Evaluation she is noted significantly displaced right bimalleolar ankle fracture with initial dislocation. He discussion of the risks and benefits of operative intervention was made with patient and her family. She opted to pursue surgery. Operative risks to include infection, neurovascular injury, development of blood clots, possible development of nonunion/malunion and need for subsequent procedures was discussed. Informed consent was obtained. Operative Findings: As below Description of Procedure: The patient was brought to the operating room, and after induction of general anesthesia the right lower extremity was prepped and draped in normal fashion. The tourniquet was inflated to 270 mmHg. An 8 cm incision was then made along the posterior lateral border of the distal fibula. Skin was incised sharply. Subcu tissues were divided bluntly. The fracture site was identified and cleaned of clot and debris. This was then provisionally reduced with a reduction clamp. A front to back lag screw was placed utilizing a 3.5 mm cortical screw the appropriate length. A lateral neutralization plate was then attached to the distal fibula utilizing 3.5 mm cortical screws proximally of the appropriate length. 2.7 mm distal locking screws were placed in the plate. Fluoroscopy was used to aid in this. I felt that adequate congregation of fibular length and overall alignment. Attention was then paid towards the medial malleolar fracture. A 4 cm incision was made centered over the medial malleolus. Skin was incised sharply. Subcu tissues were divided bluntly. The fracture site was identified and cleaned of clot and debris. The medial talar dome was inspected. The fracture was then reduced provisionally and held in place with 2 smooth guidewires in a parallel fashion. This is verified with fluoroscopy. A cannulated drill was then utilized. 4.0 x 44 mm partially threaded cancellous screws were inserted compressing the fracture site. Final fluoroscopic views to include AP, mortise, and lateral view showed adequate reduction of the fractures along with the ankle mortise. The wounds were irrigated normal saline. Subcutaneous tissues reapproximated interrupted 2-0 Vicryl sutures. Skin was repaired with juju. A sterile dressing was applied in addition to a bulky splint. The tourniquet was deflated the proximal a 70 minutes total tourniquet time. The patient was awoken from general anesthesia and transferred to recovery room in good condition. Blood loss was estimated at 10 mL. No complications were incurred. Sponge and needle counts were correct at the end of the case.
--- NOTE | 2021-04-25 14:26 | FL ---
EXAMINATION TYPE: FL guidance operating room DATE OF EXAM: 04/25/2021 HISTORY: Fluoroscopy time 38 seconds of fluoroscopy provided. IMPRESSION: 1. Fluoroscopy time.
--- NOTE | 2021-04-25 14:28 | XR ---
EXAMINATION TYPE: XR ankle limited RT DATE OF EXAM: 04/25/2021 COMPARISON: NONE TECHNIQUE: Two views submitted HISTORY: Post op FINDINGS: There is post surgical ankle in near anatomic alignment. There is soft tissue edema and emphysema. IMPRESSION: 1. Postoperative change. Appears in near-anatomic alignment
[2021-04-25 14:34] VITALS: RESP 16
[2021-04-25 15:31] VITALS: BP 133/66; PULSE 81
== END 2021-04-25 15:51 | disposition home or self-care (01) ==
LOC: OR 10:43
PROVIDERS: ATTEND Orthopaedic Surgery
DX: S82.841A Displaced bimalleolar fracture of right lower leg, initial encounter for closed fracture (principal); I25.10 Atherosclerotic heart disease of native coronary artery without angina pectoris; I10 Essential (primary) hypertension; E78.5 Hyperlipidemia, unspecified; Z87.891 Personal history of nicotine dependence; Z86.73 Personal history of transient ischemic attack (TIA), and cerebral infarction without residual deficits; K21.9 Gastro-esophageal reflux disease without esophagitis; Z95.818 Presence of other cardiac implants and grafts
CPT/HCPCS: 27814; 64447; 64445; 76942; 80051; 85027; 73600; 71045; C1713; J2250; J1100; J0690 ×2; J2405; J2001; J3010; J2795; J2704

== ENCOUNTER 2021-07-10 21:48 | Emergency (ER) | payer MEDICARE ==
[2021-07-10 21:54] VITALS: BP 163/80; PULSE 96; RESP 18; TEMP 97.7
[2021-07-10] MEDS ORDERED: HYDROmorphone 1 MG/ML 1 ML SYRINGE IM STA (23:39)
--- NOTE | 2021-07-11 00:18 | XR ---
EXAMINATION TYPE: XR foot complete LT DATE OF EXAM: 07/10/2021 COMPARISON: NONE HISTORY: Foot pain TECHNIQUE: 3 views FINDINGS: Metatarsals are intact. Toes are intact. I see no fracture nor dislocation. IMPRESSION: No acute abnormality of the left foot. No fracture.
[2021-07-11] MEDS ORDERED: ceFAZolin 1,000 MG VIAL (IM USE) IM STA (00:21)
--- NOTE | 2021-07-11 00:22 | ED ---
Extremity Problem HPI - General Chief complaint: Extremity Problem,Nontraumatic Stated complaint: L Foot Pain/Swelling Time Seen by Provider: 07/10/21 23:28 Source: patient, RN notes reviewed Mode of arrival: ambulatory Limitations: no limitations - History of Present Illness Initial comments: 66-year-old female presents emergency Department chief complaint left foot pain. Patient states started 2 weeks ago. Patient denies any trauma. Patient states started her toe noticed some redness to her foot now. She states she's given an Aircast and her right denies any left ankle, upper leg pain or calf pain. No fevers or chills. - Related Data Home Medications Medication Instructions Recorded Confirmed Aspirin 325 mg PO DAILY 07/22/14 04/24/21 lisinopriL [Zestril] 5 mg PO DAILY 05/27/17 04/25/21 Multivit-Min/Iron/Folic/Lutein 1 tab PO DAILY 01/30/18 04/25/21 [Centrum Silver Women Tablet] Previous Rx's Medication Instructions Recorded Atorvastatin [Lipitor] 80 mg PO HS #30 tab 10/10/16 Metoprolol Tartrate [Lopressor] 25 mg PO BID #60 tab 10/10/16 Nitroglycerin Sl Tabs [Nitrostat] 0.4 mg SUBLINGUAL Q5M PRN #25 tab 10/10/16 Cephalexin [Keflex] 500 mg PO Q6HR #40 cap 07/11/21 Allergies Allergy/AdvReac Type Severity Reaction Status Date / Time No Known Drug Allergies Allergy Unknown Unknown Verified 07/10/21 21:55 Review of Systems ROS Statement: Those systems with pertinent positive or pertinent negative responses have been documented in the HPI. ROS Other: All systems not noted in ROS Statement are negative. Past Medical History Past Medical History: Coronary Artery Disease (CAD), CVA/TIA, GERD/Reflux, Hyperlipidemia, Hypertension, Myocardial Infarction ([place]), Osteoarthritis (OA), Skin Disorder Additional Past Medical History / Comment(s): hx migraines, TIA- FRACTURED RIGHT ANKLE 1/2 CAST Last Myocardial Infarction Date:: History of Any Multi-Drug Resistant Organisms: MRSA Date of last positivie culture/infection: 02/21/18 MDRO Source:: NECK Past Surgical History: Heart Catheterization With Stent, Orthopedic Surgery, Tubal Ligation Additional Past Surgical History / Comment(s): left ankle surgery fracture- pins and plate inserted. 2 cardiac stents, neck surgery Past Anesthesia/Blood Transfusion Reactions: No Reported Reaction Date of Last Stent Placement:: 09/2016 Past Psychological History: No Psychological Hx Reported Smoking Status: Current every day smoker Past Alcohol Use History: Occasional Past Drug Use History: None Reported - Past Family History Mother Family Medical History: Hypertension, Myocardial Infarction (NH) Sister(s) Family Medical History: CVA/TIA, Hypertension, Myocardial Infarction (NH) Father Family Medical History: Cancer Additional Family Medical History / Comment(s): colon CA General Exam Limitations: no limitations General appearance: alert, in no apparent distress Head exam: Present: atraumatic, normocephalic, normal inspection Neck exam: Present: normal inspection, full ROM. Absent: tenderness, meningismus, lymphadenopathy Respiratory exam: Present: normal lung sounds bilaterally. Absent: respiratory distress, wheezes, rales, rhonchi, stridor Cardiovascular Exam: Present: regular rate, normal rhythm, normal heart sounds. Absent: systolic murmur, diastolic murmur, rubs, gallop, clicks Extremities exam: Present: other (Left foot there is a callus noted on the fourth digit, mild erythema, neurovascular intact there is erythema in the distal metatarsal region no ankle, nose Tenderness) Course Vital Signs 07/10/21 21:52 Temperature 97.7 F Pulse Rate 96 Respiratory 18 Rate Blood Pressure 163/80 O2 Sat by Pulse 96 Oximetry Medical Decision Making - Medical Decision Making X-rays negative for acute fracture. 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 Patient was started on antibiotics return parameters were discussed. She is advised follow-up with her orthopedic physician for recheck. Disposition Clinical Impression: Cellulitis of left foot Disposition: HOME SELF-CARE Condition: Stable Instructions (If sedation given, give patient instructions): Cellulitis (ED) Additional Instructions: Please return to the Emergency Department if symptoms worsen or any other trent rns. Prescriptions: Cephalexin [Keflex] 500 mg PO Q6HR #40 cap Is patient prescribed a controlled substance at d/c from ED?: No Referrals: Geovani Hernández MD [Primary Care Provider] - 1-2 days Time of Disposition: 00:21
== END 2021-07-11 00:34 | disposition home or self-care (01) ==
LOC: EC 21:48
DX: L03.116 Cellulitis of left lower limb (principal); I10 Essential (primary) hypertension; I25.2 Old myocardial infarction; I25.10 Atherosclerotic heart disease of native coronary artery without angina pectoris; K21.9 Gastro-esophageal reflux disease without esophagitis; E78.5 Hyperlipidemia, unspecified; M19.90 Unspecified osteoarthritis, unspecified site; F17.200 Nicotine dependence, unspecified, uncomplicated; Z79.82 Long term (current) use of aspirin; Z86.73 Personal history of transient ischemic attack (TIA), and cerebral infarction without residual deficits; Z98.51 Tubal ligation status; Z95.5 Presence of coronary angioplasty implant and graft
CPT/HCPCS: 99283; 96372 ×2; 73630; J0690; J1170

== ENCOUNTER 2021-08-12 02:08 | Inpatient (IN) | payer MEDICARE ==
[2021-08-12] MEDS ORDERED: SODIUM CHLORIDE 0.9% 1,000 ML IV STA (04:38)
[2021-08-12] MEDS ORDERED: MORPHINE SULFATE 4 MG/ML SYRINGE IV STA (04:38)
[2021-08-12] MEDS ORDERED: KETOROLAC 30 MG/ML 1 ML VIAL IVP STA (04:39)
--- NOTE | 2021-08-12 04:39 | ED ---
Extremity Problem HPI - General Chief complaint: Extremity Problem,Nontraumatic Stated complaint: leg pain/swelling/redness Time Seen by Provider: 08/12/21 04:14 Source: patient, family Mode of arrival: ambulatory Limitations: no limitations - Related Data Home Medications Medication Instructions Recorded Confirmed Aspirin 325 mg PO DAILY 07/22/14 04/24/21 lisinopriL [Zestril] 5 mg PO DAILY 05/27/17 04/25/21 Multivit-Min/Iron/Folic/Lutein 1 tab PO DAILY 01/30/18 04/25/21 [Centrum Silver Women Tablet] Previous Rx's Medication Instructions Recorded Atorvastatin [Lipitor] 80 mg PO HS #30 tab 10/10/16 Metoprolol Tartrate [Lopressor] 25 mg PO BID #60 tab 10/10/16 Nitroglycerin Sl Tabs [Nitrostat] 0.4 mg SUBLINGUAL Q5M PRN #25 tab 10/10/16 Cephalexin [Keflex] 500 mg PO Q6HR #40 cap 07/11/21 Allergies Allergy/AdvReac Type Severity Reaction Status Date / Time No Known Drug Allergies Allergy Unknown Unknown Verified 08/12/21 02:39 Review of Systems ROS Statement: Those systems with pertinent positive or pertinent negative responses have been documented in the HPI. ROS Other: All systems not noted in ROS Statement are negative. Past Medical History Past Medical History: Coronary Artery Disease (CAD), CVA/TIA, GERD/Reflux, Hyperlipidemia, Hypertension, Myocardial Infarction ([place]), Osteoarthritis (OA), Skin Disorder Additional Past Medical History / Comment(s): hx migraines, TIA- FRACTURED RIGHT ANKLE 1/2 CAST Last Myocardial Infarction Date:: History of Any Multi-Drug Resistant Organisms: MRSA Date of last positivie culture/infection: 02/21/18 MDRO Source:: NECK Past Surgical History: Heart Catheterization With Stent, Orthopedic Surgery, Tubal Ligation Additional Past Surgical History / Comment(s): left ankle surgery fracture- pins and plate inserted. 2 cardiac stents, neck surgery Past Anesthesia/Blood Transfusion Reactions: No Reported Reaction Date of Last Stent Placement:: 09/2016 Past Psychological History: No Psychological Hx Reported Smoking Status: Current every day smoker Past Alcohol Use History: Occasional Past Drug Use History: None Reported - Past Family History Mother Family Medical History: Hypertension, Myocardial Infarction (ND) Sister(s) Family Medical History: CVA/TIA, Hypertension, Myocardial Infarction (ND) Father Family Medical History: Cancer Additional Family Medical History / Comment(s): colon CA General Exam Limitations: no limitations Course Vital Signs 08/12/21 02:34 Temperature 98.2 F Pulse Rate 76 Respiratory 22 Rate Blood Pressure 152/73 O2 Sat by Pulse 100 Oximetry Medical Decision Making - EKG Data -: EKG Interpreted by Me (EKG is sinus rhythm 78 LA 154 QRS 90 QTC 419) Disposition Clinical Impression: Bilateral lower leg cellulitis Disposition: ADMITTED IP TO THIS HOSP Condition: Fair Is patient prescribed a controlled substance at d/c from ED?: No Referrals: Geovani Hernández MD [Primary Care Provider] - 1-2 days
[2021-08-12] MEDS ORDERED: NALOXONE 0.4 MG/ML 1 ML VIAL IV PRN (04:50)
[2021-08-12] MEDS ORDERED: ONDANSETRON 4 MG/2 ML VIAL IVP PRN (04:50)
[2021-08-12 05:27] LABS: Basophils % (A) 0 %; Eosinophils # (A) 0.3 k/uL (0-0.7); Eosinophils % (A) 4 %; HCT 37.7 % (34.0-46.0); HGB 12.9 gm/dL (11.4-16.0); Lymphocytes # (A) 1.8 k/uL (1.0-4.8); Lymphocytes % (A) 24 %; MCH 33.6 pg (25.0-35.0); MCHC 34.2 g/dL (31.0-37.0); MCV 98.3 fL (80.0-100.0); Mean Platelet Volume 7.3; Monocytes # (A) 0.3 k/uL (0-1.0); Monocytes % (A) 4 %; Neutrophils # (A) 4.7 k/uL (1.3-7.7); Neutrophils % (A) 66 %; Platelet Count 247 k/uL (150-450); RBC 3.83 m/uL (3.80-5.40); RDW 12.8 % (11.5-15.5); WBC 7.2 k/uL (3.8-10.6)
[2021-08-12 05:38] LABS: INR 0.9 (<1.2); Partial Thromboplastin Time 23.9 sec (22.0-30.0); Prothrombin Time 9.6 sec (9.0-12.0)
[2021-08-12 05:51] LABS: Albumin 4.2 g/dL (3.5-5.0); Calcium 9.7 mg/dL (8.4-10.2); Magnesium 1.6 mg/dL (1.6-2.3); Potassium 4.3 mmol/L (3.5-5.1); Total Bilirubin 0.5 mg/dL (0.2-1.3); Total Protein 7.8 g/dL (6.3-8.2)
[2021-08-12] MEDS: SODIUM CHLORIDE 0.9% 1,000 ML IV SCH ×3 (05:56→21:09)
[2021-08-12] MEDS ORDERED: NITROGLYCERIN SL TABS 0.4 MG TAB SUBLINGUAL PRN (10:59)
[2021-08-12] MEDS: HYDROcodone/APAP 5-325MG 1 EACH TAB PO PRN (12:30)
--- NOTE | 2021-08-12 12:30 | HP ---
HISTORY AND PHYSICAL CHIEF COMPLAINT: Pain in the feet. HISTORY OF PRESENT ILLNESS: This is another admission for this 66-year-old white female who has a history of hypertension and coronary artery disease. She has been having some discomfort in the feet over the last several weeks and increased daily, worse. She came to the emergency room with both feet were slightly swollen and particularly on the left. There is redness and edema. There is no sign of necrosis. Her left fourth toe had an abrasion. It was thought that this might be gout, but there is somewhat more concern about peripheral vascular occlusive disease than cellulitis. Other than those symptoms, she has none. REVIEW OF SYSTEMS: She has had no headaches, chest pain, shortness of breath, fever, chills, abdominal pain, vomiting, urinary complaints, etc. Past medical history, family history, personal and social histories reveal that she is on Vicodin for pain, chlorthalidone 25 mg once a day, vitamin D, meloxicam 15 mg once a day, metoprolol tartrate 50 mg twice a day, losartan 100 mg once a day and atorvastatin 80 mg once a day. She has had prior myocardial infarctions in 2012 and 2017. She had a TIA in 2018. She is a former smoker. PHYSICAL EXAMINATION: Blood pressure is 138/90 with a pulse of 86, respirations of 29, and she is afebrile. In general, she appeared to be well developed, well nourished, no acute distress. Skin color is normal. Skin is warm, dry. Lymph nodes were not enlarged. Head, ears, eyes, nose, mouth and throat were normal. Neck veins not distended. Thyroid not enlarged. Chest is clear. Cardiac exam is normal. No murmurs or extra sounds. Abdomen is soft, nontender without visceromegaly or masses. Extremities demonstrate some redness, swelling and tenderness in the feet and more predominantly on the left. There is a small abrasion on the left fourth toe. Pulses could not be palpated because of the swelling and tenderness. The feet are cool and there was a question of quality of peripheral perfusion. Neurologically, she is intact. IMPRESSION: She is admitted to the hospital with diagnoses: 1. Pain and swelling in the feet, etiology unknown. 2. Cellulitis of both feet. 3. Atherosclerotic cardiovascular disease. 4. Previous transient ischemic attack. 5. Previous myocardial infarctions. 6. Possible peripheral vascular occlusive disease. PLAN: 1. Bedrest. 2. IV fluids. 3. Vascular surgery and Infectious Disease consults. SANDRO / EULAN: [id number] /
--- NOTE | 2021-08-12 16:30 | CONS ---
CONSULTATION This is 66-year-old -Tog[place] female. The patient was seen on consultation complaining of discomfort and pain in both feet, more on the left. The patient had a fourth toe trauma in the past and she was treated with local wound care. The patient had a stent placed in the past by Dr. Wolfe in the right leg and also in the left leg, she does not remember. Medical history: No history of diabetes. Patient has history of smoking; she quit 2 weeks ago, but she smoked the rest of her life. Past surgical history: Patient had stents placed in bilaterals leg in the past. PHYSICAL EXAMINATION: Patient was seen in her room. Neck is supple. Trachea central. Chest clear on auscultation. Abdomen soft. Femorals are 1+ bilaterally. Left fourth toe is dusky and has a chronic wound. Big toe also has discoloration. Posterior tibial and dorsalis pedis by the Doppler bilaterally. PLAN: Patient will be scheduled for angiogram mostly on the left side to evaluate. Most likely patient has small vessel disease of the feet. We will follow with you. We will arrange for angio. MMODL / IJN: [id number] /
[2021-08-12] MEDS: hydrALAZINE HCL 25 MG TAB PO SCH (21:09)
[2021-08-12] MEDS: ATORVASTATIN 80 MG TAB PO SCH (21:09)
[2021-08-12] MEDS: METOPROLOL TARTRATE 50 MG TAB PO SCH (21:09)
[2021-08-13] MEDS: MORPHINE SULFATE 4 MG/ML SYRINGE IV PRN ×4 (00:05→20:02)
[2021-08-13] MEDS: SODIUM CHLORIDE 0.9% 1,000 ML IV SCH ×3 (05:16→20:46)
[2021-08-13] MEDS: HYDROcodone/APAP 5-325MG 1 EACH TAB PO PRN (07:57)
[2021-08-13] MEDS: LOSARTAN 50 MG TAB PO SCH (07:58)
[2021-08-13] MEDS: hydrALAZINE HCL 25 MG TAB PO SCH ×2 (07:59→20:02)
[2021-08-13] MEDS: METOPROLOL TARTRATE 50 MG TAB PO SCH ×2 (07:59→20:02)
[2021-08-13] MEDS: ASPIRIN 325 MG TAB PO SCH (07:59)
[2021-08-13] MEDS ORDERED: LIDOCAINE 1% INJ 10MG/ML (20 ML MDV) SQ ONE (08:44)
[2021-08-13] MEDS ORDERED: .fentaNYL (PF) 50 MCG/ML 2 ML AMP IV ONE (08:44)
[2021-08-13] MEDS ORDERED: IV FLUID CONTINUATION 700 ML IV ONE (08:45)
[2021-08-13] MEDS ORDERED: MIDAZOLAM 2 MG/2 ML VIAL IV ONE (09:09)
[2021-08-13 09:27] LABS: HCT 35.4 % (37.2-46.3); MCHC 31.1 g/dL (32.0-37.0); MCV 106.3 fL (80.0-97.0); Mean Platelet Volume 9.8 fL (9.5-12.2); Platelet Count 250 X 10*3/uL (140-440); RBC 3.33 X 10*6/uL (4.10-5.20); WBC 6.85 X 10*3/uL (4.50-10.00)
--- NOTE | 2021-08-13 09:45 | P.CONS ---
History of Present Illness - Reason for Consult Consult date: 08/12/21 left foot cellulitis Requesting physician: Geovani Hernández - Chief Complaint left foot pain and redness x few days - History of Present Illness History of present illness : Patient is 66-year-old female with a past medical history significant for injury to the left fourth toe few weeks ago patient mention that the wound subsequently healed however over the last few days the wound has reopened and the patient having more swelling and redness to the left forefoot extending to the dorsum aspect of the left foot patient complaining of throbbing pain with intensity almost 6-7 out of 10 and no radiation with associated swelling redness there is no foul-smelling drainage patient denies high-grade fever and did not have any fever on presentation to the hospital patient did have a normal white count creatinine was normal humphrey PCR was negative patient was started on Rocephin has been admitted to hospital infectious disease was consulted for further management of antibiotic therapy Review of system: CONSTITUTIONAL: Positive for weakness denies fever. EYES: No complaint. ENT: No complaint. RESPIRATORY: No complaint. CARDIOVASCULAR: No complaint. GENITOURINARY: No complaint. GASTROINTESTINAL: No complaint. MUSCULOSKELETAL: As per history of present illness. INTEGUMENTARY: No complaint. PSYCHOLOGIC: No complaint. ENDOCRINE: No complaint. NEUROLOGIC: No complaint. Past medical history : Reviewed, documented below Past surgical history : Reviewed, documented below Social history: Reviewed, documented below Medications: Reviewed, as documented below EXAMINATION: Vital sigans= Reviewed and documented below GENERAL DESCRIPTION: Elderly male lying in bed, no distress. No tachypnea or accessory muscle of respiration use. HEENT: Shows Pallor , no scleral icterus. Oral mucous membrane is dry. NECK: Trachea central, no thyromegaly. LUNGS: Unlabored breathing. Clear to auscultation anteriorly. No wheeze or crackle. HEART: S1, S2, regular rate and rhythm. ABDOMEN: Soft, no tenderness , guarding or rigidity EXTREMITIES: Left fourth toe dorsum wound with slough tissue surrounding swelling redness which is extending to dorsum aspect of the left foot. SKIN: No rash, no masses palpable. NEUROLOGICAL: The patient is awake, alert, oriented x3, mood and affect normal. LABS AND RADIOLOGY: Reviewed results see below Assessment : Patient presented to hospital with left fourth toe wound traumatic with secondary cellulitis of the left foot likely from gram-positive skin tani in this patient who has not been on antibiotic in the recent past less risk factor for MRSA or gram-negative infection Plan: 1-local wound culture has been obtained to guide further eval therapy 2-antibiotic will be discharged cefazolin 2 g every 8 hours 3-local wound care with the Santyl followed by moist dressing change daily We will follow on clinical condition and cultures to further adjust medication if needed Thank you for this consultation we will follow the patient along with you Past Medical History Past Medical History: Coronary Artery Disease (CAD), CVA/TIA, Hyperlipidemia, Hypertension, Myocardial Infarction ([place]), Osteoarthritis (OA), Skin Disorder Additional Past Medical History / Comment(s): hx migraines, TIA- FRACTURED RIGHT ANKLE 1/2 CAST Last Myocardial Infarction Date:: History of Any Multi-Drug Resistant Organisms: MRSA Year Discovered:: 02/21/18 MDRO Source:: NECK Past Surgical History: Heart Catheterization With Stent, Orthopedic Surgery, Tubal Ligation Additional Past Surgical History / Comment(s): left ankle surgery fracture- pins and plate inserted. 2 cardiac stents, neck surgery Past Anesthesia/Blood Transfusion Reactions: No Reported Reaction Date of Last Stent Placement:: 09/2016 Past Psychological History: No Psychological Hx Reported Smoking Status: Former smoker Past Alcohol Use History: Occasional Additional Past Alcohol Use History / Comment(s): started smoking at age 16(1970) and quit 2016, smoked 2 ppd.STARTED SMOKING 2019 SMOKING 1/2 PPD quit smoking a few weeks ago (08/2021) Past Drug Use History: Marijuana Additional Drug Use History / Comment(s): OCCASIONAL USE OF MARIJUANA - Past Family History Mother Family Medical History: Hypertension, Myocardial Infarction ([place]) Sister(s) Family Medical History: CVA/TIA Father Family Medical History: Cancer Additional Family Medical History / Comment(s): colon CA Brother(s) Family Medical History: Coronary Artery Disease (CAD), CVA/TIA Additional Family Medical History / Comment(s): CABG Medications and Allergies Home Medications Medication Instructions Recorded Confirmed Type Aspirin 325 mg PO DAILY 07/22/14 08/12/21 History Atorvastatin [Lipitor] 80 mg PO HS #30 tab 10/10/16 08/12/21 Rx Nitroglycerin Sl Tabs [Nitrostat] 0.4 mg SUBLINGUAL Q5M PRN #25 tab 02/01/17 12/04/21 Rx Multivit-Min/Iron/Folic/Lutein 1 tab PO DAILY 01/30/18 08/12/21 History [Centrum Silver Women Tablet] Ergocalciferol (Vitamin D2) 1,250 mcg PO Q30D 08/12/21 08/12/21 History [Drisdol (50,000 Iu)] HYDROcodone/APAP 5-325MG [[place] 1 tab PO BID PRN 08/12/21 08/12/21 History 5-325] Losartan Potassium 100 mg PO DAILY 08/12/21 08/12/21 History Metoprolol Tartrate [Lopressor] 50 mg PO BID 08/12/21 08/12/21 History hydrALAZINE HCL [Apresoline] 25 mg PO BID 08/12/21 08/12/21 History Allergies Allergy/AdvReac Type Severity Reaction Status Date / Time No Known Allergies Allergy Verified 08/12/21 15:32 Physical Exam Vitals: Vital Signs Temp Pulse Pulse Resp BP Pulse Ox 08/13/21 09:34 65 16 95/58 97 08/13/21 07:00 97.6 F 95 18 157/63 95 08/13/21 02:00 94 08/13/21 01:30 98.2 F 94 17 168/76 98 08/12/21 19:58 70 18 08/12/21 19:15 98.4 F 76 17 138/72 100 08/12/21 15:00 98.3 F 70 18 130/70 99 Intake and Output 08/12/21 08/13/21 08/13/21 22:59 06:59 14:59 Intake Total 300 50 Balance 300 50 Intake: IV 50 Oral 300 Other: Voiding Method Toilet # Voids 2 3 # Bowel Movements 1 Weight 64.41 kg Results CBC & Chem 7: 08/13/21 05:24 08/12/21 05:12 Labs: Abnormal Lab Results - Last 24 Hours (Table) 08/13/21 Range/Units 05:24 RBC 3.33 L (4.10-5.20) X 10*6/uL Hgb 11.0 L (12.0-15.0) g/dL Hct 35.4 L (37.2-46.3) % MCV 106.3 H (80.0-97.0) fL MCH 33.0 H (27.0-32.0) pg MCHC 31.1 L (32.0-37.0) g/dL Microbiology - Last 24 Hours (Table) 08/12/21 17:01 Anaerobic Culture - Preliminary Toe - Left Fourth 08/12/21 17:01 Wound Culture - Preliminary Toe - Left Fourth
[2021-08-13 09:51] LABS: African American GFR (CKD) 67.5 (60.0-200.0); Albumin 3.6 g/dL (3.8-4.9); Albumin/Globulin Ratio 1.44 (1.60-3.17); BUN/Creat Ratio 16.9 Ratio (12.00-20.00); Blood Urea Nitrogen 16.9 mg/dL (9.0-27.0); Calcium 8.6 mg/dL (8.7-10.3); Globulin 2.5 g/dL (1.6-3.3); Non-African American GFR(CKD) 58.2 (60.0-200.0); Potassium 4.9 mmol/L (3.5-5.5); Total Bilirubin 0.2 mg/dL (0.30-1.20); Total Protein 6.1 g/dL (6.2-8.2)
[2021-08-13 11:02] LABS: Basophils # (A) 0.01 X 10*3/uL (0.00-0.10); Basophils % (A) 0.1 %; Eosinophils # (A) 0.17 X 10*3/uL (0.04-0.35); Eosinophils % (A) 2.5 %; Lymphocytes # (A) 1.78 X 10*3/uL (0.90-5.00); Monocytes # (A) 0.56 X 10*3/uL (0.20-1.00); Monocytes % (A) 8.2 %; Neutrophils # (A) 4.31 X 10*3/uL (1.80-7.70); Neutrophils % (A) 62.9 %
--- NOTE | 2021-08-13 13:47 | PCN ---
PROCEDURE NOTE PREOPERATIVE DIAGNOSIS: Left foot discoloration and wound on the fourth toe. POSTOPERATIVE DIAGNOSIS: Left foot discoloration and wound on the fourth toe. PROCEDURE: Left leg angiogram DESCRIPTION OF PROCEDURE: This patient brought to the laborer carpentry dock. Right and left groins were prepped and drapes applied in a sterile manner. 1% lidocaine was infiltrated into the left groin area. Ultrasound-guided micropuncture introduced to the left common femoral artery and 4- [place] sheath was advanced on top of the guidewire, flushed with heparin saline with hand injection. Left leg angiogram was performed. Left common iliac and aorta was visualized, common femoral artery was visualized, which was patent. Profunda was visualized which was patent. The left SFA is has severe atherosclerosis disease and is occluded, reconstitutes above the knee. There is some atherosclerosis disease noted on the left popliteal artery, but no occlusion. The anterior tibial, posterior visualized all the way down to the foot. IMPRESSION: Left SFA occluded and some atherosclerosis disease noted to the left popliteal artery with 2 vessel runoff. Catheter was removed. Pressure was held. Patient tolerated the procedure well. MMODL / IJN: [id number] /
[2021-08-13] MEDS: ATORVASTATIN 80 MG TAB PO SCH (20:02)
--- NOTE | 2021-08-13 22:29 | PN ---
PROGRESS NOTE DATE OF SERVICE: 08/13/2021 REASON FOR FOLLOWUP: Left fourth toe wound and cellulitis of the left foot. INTERVAL HISTORY: The patient is afebrile. The patient is breathing comfortably. Still complaining of significant pain to the left foot area. No chest pain, shortness of breath or cough. No abdominal pain or diarrhea. PHYSICAL EXAMINATION: Blood pressure 131/62 with a pulse of 58, temperature 97.6. She is 100% on room air. General description is an elderly female up in the bed in no distress. Respiratory system: Unlabored breathing. Clear to auscultation anteriorly. Heart S1, S2. Regular rate and rhythm. Abdomen soft, no tenderness. Left foot wound is currently dressed. No obvious drainage on the dressing. LABS: BUN of 11, 6.85. Creatinine is 1.0. DIAGNOSTIC IMPRESSION AND PLAN: Patient with left fourth toe wound with secondary cellulitis of the left foot in this patient who is status post left foot angiogram with evidence of left SFA occlusion. Patient is covered with cefazolin while waiting for the culture to finalize, and monitor clinical course closely. MMODL / IJN: [id number] /
[2021-08-14] MEDS: MORPHINE SULFATE 4 MG/ML SYRINGE IV PRN ×4 (01:10→23:24)
[2021-08-14] MEDS: SODIUM CHLORIDE 0.9% 1,000 ML IV SCH ×5 (03:24→23:21)
[2021-08-14] MEDS: ASPIRIN 325 MG TAB PO SCH (07:34)
[2021-08-14] MEDS: hydrALAZINE HCL 25 MG TAB PO SCH ×2 (07:34→20:50)
[2021-08-14] MEDS: METOPROLOL TARTRATE 50 MG TAB PO SCH ×2 (07:34→20:50)
--- NOTE | 2021-08-14 08:12 | IR ---
Fluoroscopy HISTORY: Pain in left leg 90 seconds fluoroscopy time supplied to the referring clinician. 277 intraoperative C-arm images doc ument the procedure. See dictated report from vascular surgery.
[2021-08-14 10:00] VITALS: BMI 27.7
[2021-08-14] MEDS: LOSARTAN 50 MG TAB PO SCH (11:41)
--- NOTE | 2021-08-14 12:54 | P.GSCN ---
History of Present Illness Consult date: 08/14/21 Reason for Consult: Left lower extremity pain, occluded left SFA Requesting physician: Juan Jimenez History of present illness: This 66-year-old female who presented to the emergency department with complaints of left foot pain and discoloration on 08/12/2021. Her past medical history includes peripheral arterial disease, TIA, hyperlipidemia, hypertension, [place], osteoarthritis, and GERD. Initially Dr. Jimenez was consulted and performed a left lower extremity angiogram yesterday finding left SFA occlusion and some arthrosclerosis disease noted in the left popliteal artery with a [address] Jimenez asked vascular surgery Dr. William to see the patient for further evaluation and treatment. Today the patient was seen and examined she is still with complaints of left lower extremity pain mostly in the foot and ankle. She still has redness and warmth to the foot. She denies pain in the upper calf or thigh. She does have a history of peripheral arterial disease and she has had stenting down bilateral lower extremities. In 2014 Dr. Wolfe did arthrectomy of the right SFA and balloon angioplasty. Report also shows balloon angioplasty of the right popliteal artery. Patient also states that she's had revascularization to the left lower extremity. Past Medical History Past Medical History: Coronary Artery Disease (CAD), CVA/TIA, Hyperlipidemia, Hypertension, Myocardial Infarction ([place]), Osteoarthritis ([place]), Skin Disorder Additional Past Medical History / Comment(s): hx migraines, TIA- FRACTURED RIGHT ANKLE 1/2 CAST Last Myocardial Infarction Date:: History of Any Multi-Drug Resistant Organisms: MRSA Year Discovered:: 02/21/18 MDRO Source:: NECK Past Surgical History: Heart Catheterization With Stent, Orthopedic Surgery, Tubal Ligation Additional Past Surgical History / Comment(s): left ankle surgery fracture- pins and plate inserted. 2 cardiac stents, neck surgery Past Anesthesia/Blood Transfusion Reactions: No Reported Reaction Date of Last Stent Placement:: 09/2016 Past Psychological History: No Psychological Hx Reported Smoking Status: Former smoker Past Alcohol Use History: Occasional Additional Past Alcohol Use History / Comment(s): started smoking at age 16(1970) and quit 2017, smoked 2 ppd.STARTED SMOKING 2020 SMOKING 1/2 PPD quit smoking a few weeks ago (08/2021) Past Drug Use History: Marijuana Additional Drug Use History / Comment(s): OCCASIONAL USE OF MARIJUANA - Past Family History Mother Family Medical History: Hypertension, Myocardial Infarction ([place]) Sister(s) Family Medical History: CVA/TIA Father Family Medical History: Cancer Additional Family Medical History / Comment(s): colon CA Brother(s) Family Medical History: Coronary Artery Disease (CAD), CVA/TIA Additional Family Medical History / Comment(s): CABG Medications and Allergies Home Medications Medication Instructions Recorded Confirmed Type Aspirin 325 mg PO DAILY 07/22/14 08/12/21 History Atorvastatin [Lipitor] 80 mg PO HS #30 tab 10/10/16 08/12/21 Rx Nitroglycerin Sl Tabs [Nitrostat] 0.4 mg SUBLINGUAL Q5M PRN #25 tab 10/10/16 08/12/21 Rx Multivit-Min/Iron/Folic/Lutein 1 tab PO DAILY 01/30/18 08/12/21 History [Centrum Silver Women Tablet] Ergocalciferol (Vitamin D2) 1,250 mcg PO Q30D 08/12/21 08/12/21 History [Drisdol (50,000 Iu)] HYDROcodone/APAP 5-325MG [[place] 1 tab PO BID PRN 08/12/21 08/12/21 History 5-325] Losartan Potassium 100 mg PO DAILY 08/12/21 08/12/21 History Metoprolol Tartrate [Lopressor] 50 mg PO BID 08/12/21 08/12/21 History hydrALAZINE HCL [Apresoline] 25 mg PO BID 08/12/21 08/12/21 History Allergies Allergy/AdvReac Type Severity Reaction Status Date / Time No Known Allergies Allergy Verified 08/12/21 15:32 Surgical - Exam Vital Signs Temp Pulse Resp BP Pulse Ox 98.2 F 76 22 152/73 100 08/12/21 02:34 08/12/21 02:34 08/12/21 02:34 08/12/21 02:34 08/12/21 02:34 General appearance: The patient is alert, oriented, appears in no acute distress. HET: Head is normocephalic and atraumatic. Neck: Supple without lymphadenopathy. Trachea midline. Heart: S1 S2. Regular rate and rhythm. Lungs: Auscultation. Abdomen: Soft, nontender, nondistended. Extremities: Left lower extremity foot and up to ankle red, swollen, and warm to touch. Decreased capillary refill. Tenderness to palpation. Inability to move 4th and 5th toes, little movement to great toe through 3rd toe. Neurological: No focal deficits. Alert and oriented x3. Results - Labs 08/13/21 05:24 08/13/21 05:24 Microbiology - Last 24 Hours (Table) 08/12/21 17:01 Gram Stain - Preliminary Toe - Left Fourth Wound Culture - Preliminary Gram Neg Bacilli Presumptive MRSA Assessment and Plan Assessment: 1. Left SFA occlusion with arthrosclerosis disease noted to the left popliteal artery 2. Lower extremity pain 3. History of peripheral arterial disease status post revascularization bilateral lower extremities 4. History of hyperlipidemia Plan: 1. Keep nothing by mouth 2. Patient scheduled for left lower extremity atherectomy with possible stent is afternoon 3. Further recommendations forthcoming Thank you for this consultation, we will continue to follow. The impression and plan of care has been dictated as directed. Dr. William I performed a history and examination of this patient, discussed the same with the dictator. I agree with the dictator's note ,documented as a scribe. Any additional findings or plans will be noted.
[2021-08-14] MEDS ORDERED: HEPARIN SODIUM 1,000 UN/ML (10ML VL) ONE (17:17)
[2021-08-14] MEDS ORDERED: MIDAZOLAM 2 MG/2 ML VIAL IV ONE (17:25)
[2021-08-14] MEDS ORDERED: fentaNYL (PF) 50 MCG/ML 5 ML AMP IV ONE (17:26)
[2021-08-14] MEDS ORDERED: LIDOCAINE 1% INJ 10MG/ML (20 ML MDV) SQ ONE (17:27)
--- NOTE | 2021-08-14 17:30 | PN ---
PROGRESS NOTE CHIEF COMPLAINT: Pain, swelling and redness in the left foot with ischemia. HISTORY OF PRESENT ILLNESS: This lady was doing well, but now her left foot seems to be swelling more and seems to be more uncomfortable. She has had no fever or chills. PHYSICAL EXAMINATION: Chest is clear. Cardiac exam is normal. Abdomen is soft, nontender. The left leg is slightly edematous and the left ankle and foot are fairly erythematous, edematous and tender. There is seems to be adequate capillary flow in the toes. 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 Continue to monitor the swelling, redness and pain. Vascular Surgery will be re- evaluating her today. MMODL / IJN: [id number] /
[2021-08-14] MEDS ORDERED: IV FLUID CONTINUATION 700 ML IV ONE (17:32)
[2021-08-14] MEDS ORDERED: HEPARIN SODIUM 1,000 UN/ML (10ML VL) IV ONE (17:35)
--- NOTE | 2021-08-14 17:35 | PN ---
PROGRESS NOTE DATE OF SERVICE: 08/13/2021 CHIEF COMPLAINT: Ischemia of the left leg. HISTORY OF PRESENT ILLNESS: This lady is doing well. 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 REVIEW OF SYSTEMS: She denies any chest pain, abdominal pain, chills, etc. PHYSICAL EXAMINATION: Her chest is clear. Cardiac exam is normal. There is good capillary fill in the toes on the left. IMPRESSION: 1. Ischemia of the left lower extremity and foot, status post stenting of the common femoral. 2. Hypertension. 3. Chronic obstructive pulmonary disease. PLAN: Continue to follow with Vascular Surgery and increase her activity tomorrow. MMODL / IJN: [id number] /
[2021-08-14] MEDS ORDERED: IOPAMIDOL-250 100ML BTL INTRAARTER ONE ×2 (18:12)
[2021-08-14] MEDS ORDERED: CLOPIDOGREL 75 MG TAB ONE (18:28)
[2021-08-14] MEDS ORDERED: CLOPIDOGREL 75 MG TAB PO ONE (18:28)
--- NOTE | 2021-08-14 18:38 | P.OP ---
Date of Procedure: 08/14/21 Description of Procedure: Preoperative diagnosis: Left lower extremity critical limb ischemia with second toe wound. Left superficial femoral artery occlusion Postop diagnosis: Same Procedure: 1. Left lower extremity selective angiogram. 2. Ultrasound-guided right common femoral artery access . 3. Percutaneous balloon angioplasty of the left superficial femoral artery 4. Percutaneous stenting of the left superficial femoral artery with Zilver PTX stent [id number] 5. Presented as closure right common femoral artery with Vascade device Surgeon: Stewart Anesthesia: Moderate sedation times 55 minutes Estimated blood loss: 5 mL Complications: None Condition: Stable Indication for procedure: 66-year-old female with history of peripheral arterial disease currently being treated for left lower extremity second toe wound and limb ischemia. She recently underwent angiogram of the left lower extremity which demonstrated occlusion of the superficial femoral artery. She has had multiple interventions to bilateral lower extremity as well as atherectomies of the superficial femoral arteries in the past. She does have two-vessel runoff to the ankle on the left but due to the fact that she has significant pain and a wound on her second toe were asked to see the patient and perform revascularization to the left lower extremity. She presents today for such procedure. Operative narrative: After written informed consent was obtained the patient all risks benefits competitions were described the patient is brought to the [employer] and laid in a supine position. The area of the groins were prepped and draped in the usual sterile fashion. Local anesthesia with moderate sedation was performed with continuous pulse ox monitoring and EKG monitoring. Utilizing ultrasound the right common femoral artery was visualized and shown to be patent without any significant plaque. Utilizing a multipurpose needle under ultrasound guidance the artery was accessed. Guidewire was placed followed by 5-[place] sheath. 035 Glidewire was then placed into the aorta followed by an RBI catheter and left common iliac artery was accessed in an up and over fashion. Angiogram was then obtained of the left lower extremity demonstrating occlusion of the superficial femoral artery just after the takeoff with reconstitution above-knee at the popliteal artery. 035 Glidewire advantage was then placed followed by a 6-[place] long sheath 55 cm Raabe. 035 Glidewire advantage was then utilized with a quick cross catheter and the occlusion was crossed. Selective angiogram distal to this area of the popliteal was then obtained demonstrating good intraluminal access. Balloon angioplasty was then performed with a 4 x 150 mm balloon 2. At that time we determined to place a drug-eluting balloon and a 4 x 250 mm impact Adm. balloon was then placed across the lesion to the takeoff of the SFA in normal fashion. Once completed there was a small dissection noted and therefore a 5 x 140 mm Silver PTX stent was chosen and deployed across this lesion. There were no other 5 mm stents available. Once completed final angiogram was obtained demonstrating brisk flow through the SFA with complete resolution of the stenosis and occlusion with two- vessel runoff to the ankle. Multiphasic signal was noted as well as palpable PT pulse. Once completed all guidewires, catheters and sheaths were removed and a Vascade closure device was placed for hemostasis. Patient tolerated procedure well was sent to PACU for recovery
[2021-08-14 19:20] LABS: Glucose,Whole Blood 109 mg/dL (75-99)
[2021-08-14] MEDS: ATORVASTATIN 80 MG TAB PO SCH (20:50)
[2021-08-14] MEDS ORDERED: VANCOMYCIN IV PER PHARMACY 1 EACH MISC MISCELLANE PRN (22:07)
[2021-08-14] MEDS ORDERED: VANCOMYCIN 1,250 MG in SODIUM CHLORIDE 0.9% 250 ML IVPB ONE (23:00)
--- NOTE | 2021-08-14 23:06 | PN ---
PROGRESS NOTE DATE OF SERVICE: 08/14/2021 REASON FOR VISIT: Left fourth toe wound and left foot cellulitis. INTERVAL HISTORY: The patient is afebrile. The patient is breathing comfortably. Patient denies having any chest pain or shortness of breath, no cough, no abdominal pain. in the left foot. PHYSICAL EXAMINATION: Blood pressure 129/70 with a pulse of 94, temperature 98.7, she is 96% on room air. General description is an elderly female lying in bed in no distress. Respiratory system: Unlabored breathing. Clear to auscultation anteriorly. Heart S1, S2. Regular rate and rhythm. Abdomen soft, no tenderness. Left foot swelling and redness has decreased. Toe wound is currently covered. LABS: Wound culture now showing gram-negative and presumptive MRSA. DIAGNOSTIC IMPRESSION AND PLAN: Patient with left fourth toe wound and secondary cellulitis. Local culture now showing presumptive MRSA and gram-negative. Antibiotic will be adjusted to cefepime and vancomycin while waiting for the final ID and sensitivity. Continue supportive care. MMODL / IJN: [id number] /
[2021-08-15] MEDS: CEFEPIME 2 GM in SODIUM CHLORIDE 0.9% 100 ML IVPB SCH ×3 (01:21→19:27)
[2021-08-15] MEDS: HYDROcodone/APAP 5-325MG 1 EACH TAB PO PRN ×2 (06:11→19:34)
[2021-08-15 06:33] LABS: African American GFR (CKD) 70 (>60 ml/min/1.73 sqM); Non-African American GFR(CKD) 61 (>60 ml/min/1.73 sqM)
[2021-08-15 08:08] LABS: Basophils % (A) 0 %; Eosinophils # (A) 0.1 k/uL (0-0.7); Eosinophils % (A) 2 %; HCT 30.8 % (34.0-46.0); HGB 10.5 gm/dL (11.4-16.0); Lymphocytes # (A) 1.2 k/uL (1.0-4.8); Lymphocytes % (A) 18 %; MCH 34.7 pg (25.0-35.0); MCHC 34.2 g/dL (31.0-37.0); MCV 101.7 fL (80.0-100.0); Macrocytosis Slight; Mean Platelet Volume 7.7; Monocytes # (A) 0.4 k/uL (0-1.0); Monocytes % (A) 6 %; Neutrophils # (A) 4.7 k/uL (1.3-7.7); Neutrophils % (A) 72 %; Platelet Count 207 k/uL (150-450); RBC 3.03 m/uL (3.80-5.40); WBC 6.5 k/uL (3.8-10.6)
[2021-08-15 08:35] LABS: Anion Gap 5 mmol/L; Blood Urea Nitrogen 13 mg/dL (7-17); Calcium 8.6 mg/dL (8.4-10.2); Carbon Dioxide 21 mmol/L (22-30); Chloride 110 mmol/L (98-107); Glucose 99 mg/dL (74-99); Potassium 4.3 mmol/L (3.5-5.1); Sodium 136 mmol/L (137-145)
[2021-08-15] MEDS: LOSARTAN 50 MG TAB PO SCH (08:37)
[2021-08-15] MEDS: hydrALAZINE HCL 25 MG TAB PO SCH ×2 (08:38→19:26)
[2021-08-15] MEDS: ASPIRIN 325 MG TAB PO SCH (08:38)
[2021-08-15] MEDS: METOPROLOL TARTRATE 50 MG TAB PO SCH ×2 (08:38→19:27)
[2021-08-15] MEDS: CLOPIDOGREL 75 MG TAB PO SCH (08:38)
--- NOTE | 2021-08-15 09:44 | IR ---
EXAMINATION TYPE: IR stent intravas non coronary DATE OF EXAM: 08/14/2021 COMPARISON: NONE HISTORY: Fluoroscopy time. Fluoroscopy was provided to the referring clinician.
--- NOTE | 2021-08-15 12:46 | P.PN ---
Subjective Progress Note Date: 08/15/21 Patient is seen and examined sitting up at the bedside. She is status post left lower extremity angiogram with percutaneous balloon angioplasty of the left SFA and stenting of the left SFA. Closure of right femoral artery with Vascade device. Patient states her pain to the left lower extremity has improved some. She is still having some discomfort redness and swelling to the dorsal aspect of her left foot. Objective - Vital Signs Vital signs: Vital Signs Temp 99.1 F 08/15/21 07:00 Pulse 73 08/15/21 07:00 Resp 18 08/15/21 07:00 BP 120/48 08/15/21 07:00 Pulse Ox 99 08/15/21 07:00 Intake & Output 08/14/21 08/15/21 08/15/21 18:59 06:59 18:59 Intake Total 1600 2000 Balance 1600 2000 Weight 64.41 kg Intake: IV 1240 1500 Sodium Chloride 0.9% 1, 1040 1300 000 ml @ 130 mls/hr IV . Q7H42M [facility] Rx#:[id number] ceFAZolin 2 gm In Sodium 100 200 Chloride 0.9% 50 ml @ 100 mls/hr IVPB Q8HR [facility] Rx# :[id number] Intake, IV Titration 500 Amount Vancomycin 1,000 mg In 250 Sodium Chloride 0.9% 250 ml @ 125 mls/hr IVPB Q24H [facility] Rx#:[id number] Vancomycin 1,250 mg In 250 Sodium Chloride 0.9% 250 ml @ 125 mls/hr IVPB ONCE ONE Rx#:[id number] Oral 360 Other: Voiding Method Toilet # Voids 2 2 - Exam General appearance: The patient is alert, oriented, in no acute distress. HET: Head is normocephalic and atraumatic. Pupils are equal and reactive. Oropharynx is clear without lesions. Neck: Supple without lymphadenopathy. Trachea midline. Heart: S1 S2. Regular rate and rhythm. Lungs: No crackles or wheezes are heard. Abdomen: Soft, nontender, nondistended with bowel sounds. No peritoneal signs. No palpable organomegaly or masses. Extremities: Left foot dorsal aspect with edema, redness, and warm to the touch. Tenderness to palpation. No tenderness in the calf. She has good capillary refill. Palpable posterior tibialis pulse. Positive Doppler signal obtained popliteal, dorsalis pedis and posterior tibialis. Right groin access site clean dry and intact without any evidence of bleeding, no hematoma, and nontender. Neurological: No focal deficits. Strength and sensation are grossly intact. - Labs CBC & Chem 7: 08/15/21 05:41 08/15/21 05:41 Labs: Abnormal Lab Results - Last 24 Hours (Table) 08/14/21 08/15/21 Range/Units 19:17 05:41 RBC 3.03 L (3.80-5.40) m/uL Hgb 10.5 L (11.4-16.0) gm/dL Hct 30.8 L (34.0-46.0) % MCV 101.7 H (80.0-100.0) fL POC Glucose (mg/dL) 109 H (75-99) mg/dL Microbiology - Last 24 Hours (Table) 08/12/21 17:01 Anaerobic Culture - Preliminary Toe - Left Fourth Assessment and Plan Assessment: 1. Postop day #1 left lower extremity angiogram with percutaneous balloon angioplasty of the left SFA with stenting. Right common femoral artery closure with Vascade device 2. Left SFA occlusion with arthrosclerosis disease noted to the left popliteal artery 3. Lower extremity pain 4. History of peripheral arterial disease status post revascularization bilateral lower extremities 5. History of hyperlipidemia Plan: 1. Diet as tolerated 2. Continue with antibiotics per recommendations from infectious disease 3. Discussed with patient she will have outpatient follow-up with Dr. Jimenez Thank you for this consultation, we will continue to follow. The impression and plan of care has been dictated as directed. Dr. William I performed a history and examination of this patient, discussed the same with the dictator. I agree with the dictator's note ,documented as a scribe. Any additional findings or plans will be noted.
[2021-08-15] MEDS: VANCOMYCIN 1,000 MG in SODIUM CHLORIDE 0.9% 250 ML IVPB SCH (19:27)
[2021-08-15] MEDS: ATORVASTATIN 80 MG TAB PO SCH (19:27)
[2021-08-15] MEDS: SODIUM CHLORIDE 0.9% 1,000 ML IV SCH ×2 (22:40→23:01)
--- NOTE | 2021-08-16 02:15 | PN ---
PROGRESS NOTE DATE OF SERVICE: 08/15/2021 REASON FOR FOLLOWUP: Left fourth toe wound with secondary cellulitis on the left foot. INTERVAL HISTORY: The patient is afebrile. The patient is breathing comfortably. The patient denies having any chest pain, shortness of breath or cough. No abdominal pain or diarrhea. PHYSICAL EXAMINATION: Her blood pressure is 141/63 with a pulse of 54, temperature 97.5. She is 98% on room air. General description is an elderly female lying in bed in no distress. Respiratory system: Unlabored breathing. Clear to auscultation anteriorly. Heart S1, S2. Regular rate and rhythm. Abdomen soft, no tenderness. Left foot swelling and redness have decreased. LABS: Hemoglobin is 10.5, white count 6.5, creatinine 0.97. Local culture with Serratia, MRSA and Enterobacter. DIAGNOSTIC IMPRESSION AND PLAN: Patient with left fourth toe traumatic wound with secondary cellulitis, left foot, with multiple pathogens. The patient is currently covered with cefepime and vancomycin. Hopefully transition to oral antibiotic on discharge. Continue with supportive care. MMODL / IJN: [id number] /
[2021-08-16] MEDS: METOPROLOL TARTRATE 50 MG TAB PO SCH ×2 (08:36→20:37)
[2021-08-16] MEDS: hydrALAZINE HCL 25 MG TAB PO SCH ×2 (08:36→20:36)
[2021-08-16] MEDS: CLOPIDOGREL 75 MG TAB PO SCH (08:36)
[2021-08-16] MEDS: LOSARTAN 50 MG TAB PO SCH (08:36)
[2021-08-16] MEDS: ASPIRIN 325 MG TAB PO SCH (08:36)
[2021-08-16] MEDS: CEFEPIME 2 GM in SODIUM CHLORIDE 0.9% 100 ML IVPB SCH ×2 (08:45→21:35)
[2021-08-16] MEDS: HYDROcodone/APAP 5-325MG 1 EACH TAB PO PRN ×2 (08:53→20:37)
[2021-08-16] MEDS: SODIUM CHLORIDE 0.9% 1,000 ML IV SCH ×2 (09:03→18:01)
--- NOTE | 2021-08-16 12:45 | P.PN ---
Subjective Progress Note Date: 08/16/21 Patient is seen and examined sitting up at the bedside. She is status post left lower extremity angiogram with percutaneous balloon angioplasty of the left SFA and stenting of the left SFA. Closure of right femoral artery with Vascade device. Reports improvement in her pain to her right ankle and foot. She still has some swelling but states somewhat improved including her redness. She's been afebrile. She remains on IV cefepime per recommendations from infectious disease. From previous no Plavix for discharge possibly on oral antibiotics. Objective - Vital Signs Vital signs: Vital Signs Temp 97.7 F 08/16/21 07:00 Pulse 66 08/16/21 07:00 Resp 17 08/16/21 07:00 BP 148/61 08/16/21 07:00 Pulse Ox 97 08/16/21 07:00 Intake & Output 08/15/21 08/16/21 08/16/21 18:59 06:59 18:59 Intake Total 480 500 118 Balance 480 500 118 Intake: Oral 480 500 118 Other: Voiding Method Toilet Toilet # Voids 1 1 - Exam General appearance: The patient is alert, oriented, in no acute distress. HET: Head is normocephalic and atraumatic. Pupils are equal and reactive. Oropharynx is clear without lesions.achea midline. Extremities: Left foot dorsal aspect with edema, redness, and warm to the touch. Tenderness to palpation. No tenderness in the calf. She has good capillary refill. Palpable posterior tibialis pulse. Positive Doppler signal obtained popliteal, dorsalis pedis and posterior tibialis. Right groin access site clean dry and intact without any evidence of bleeding, no hematoma, and nontender. Neurological: No focal deficits. Strength and sensation are grossly intact. - Labs CBC & Chem 7: 08/15/21 05:41 08/16/21 06:31 Labs: Abnormal Lab Results - Last 24 Hours (Table) 08/16/21 Range/Units 06:31 Creatinine 1.09 H (0.52-1.04) mg/dL Microbiology - Last 24 Hours (Table) 08/12/21 17:01 Gram Stain - Final Toe - Left Fourth Wound Culture - Final Serratia marcescens Methicillin resist S. aureus Enterobacter aerogenes Assessment and Plan Assessment: 1. Postop day #2 left lower extremity angiogram with percutaneous balloon angioplasty of the left SFA with stenting. Right common femoral artery closure with Vascade device 2. Left SFA occlusion with arthrosclerosis disease noted to the left popliteal artery 3. Left fourth toe infected wound with cellulitis to left foot 4. History of peripheral arterial disease status post revascularization bi lateral lower extremities 5. History of hyperlipidemia Plan: 1. Diet as tolerated 2. Continue with antibiotics per recommendations from infectious disease 3. Follow up with Dr. Jimenez Thank you for this consultation, no further plans for surgical intervention. Patient is cleared by vascular surgery for discharge. The impression and plan of care has been dictated as directed. Dr. Infante I performed a history and examination of this patient, discussed the same with the dictator. I agree with the dictator's note ,documented as a scribe. Any additional findings or plans will be noted.
--- NOTE | 2021-08-16 13:52 | PN ---
PROGRESS NOTE DATE OF SERVICE: 08/15/2021 CHIEF COMPLAINT: Ischemia of the left leg. HISTORY OF PRESENT ILLNESS: This lady was doing fairly well, but now she is having a little bit more pain in the foot and she did have a temperature last night. PHYSICAL EXAMINATION: Chest is clear. Cardiac exam is normal. Abdomen is soft, nontender. Left foot is still somewhat swollen. However, the foot and toes remain warm. There is cellulitis of the dorsum of the foot and pulses could not be evaluated. IMPRESSION: 1. Peripheral vascular occlusive disease status post stenting of the left common femoral. 2. Fever, undetermined etiology. PLAN: Continue to monitor vital signs including temperature as well as clinical signs and symptoms regarding the leg and foot. MMODL / IJN: [id number] /
--- NOTE | 2021-08-16 13:58 | PN ---
PROGRESS NOTE DATE OF SERVICE: 08/16/2021. CHIEF COMPLAINT: Ischemia of the left leg. HISTORY OF PRESENT ILLNESS: This lady is having more trouble. Her temperature has been down, but she is having more pain and swelling in the leg and it looks as though she has a cellulitis and possibly a subcutaneous abscess on the dorsum of the left foot. PHYSICAL EXAMINATION: Vital signs are normal. Chest is clear. The left foot is erythematous and edematous and she has dorsal swelling in the left foot which has gotten worse. It is very tender and slightly fluctuant. IMPRESSION: 1. Peripheral vascular occlusive disease and ischemia in the left leg. 2. Cellulitis of the left foot and possible subcutaneous abscess on the dorsal aspect. PLAN: Continue with IV fluids and antibiotics and consult Orthopedics for possible I and D. MMODL / EULAN: [id number] /
[2021-08-16 14:13] LABS: Basophils % (A) 0 %; Eosinophils # (A) 0.2 k/uL (0-0.7); Eosinophils % (A) 2 %; HCT 31.6 % (34.0-46.0); HGB 10.1 gm/dL (11.4-16.0); Hypochromasia Slight; Lymphocytes # (A) 0.9 k/uL (1.0-4.8); Lymphocytes % (A) 15 %; MCH 34.6 pg (25.0-35.0); Macrocytosis Moderate; Mean Platelet Volume 7.9; Monocytes # (A) 0.4 k/uL (0-1.0); Monocytes % (A) 6 %; Neutrophils # (A) 4.5 k/uL (1.3-7.7); Neutrophils % (A) 73 %; Platelet Count 203 k/uL (150-450); RBC 2.92 m/uL (3.80-5.40); RDW 13.5 % (11.5-15.5); WBC 6.1 k/uL (3.8-10.6)
[2021-08-16 14:14] LABS: MCV 108.3 fL (80.0-100.0)
--- NOTE | 2021-08-16 16:23 | P.CNOR ---
History of Present Illness - HPI Consult date: 08/16/21 Consult reason: other History of present illness: Patient is a very pleasant 66-year-old female who initially presented to the hospital. He is going regards to left fourth toe pain. She says it been hurting is cleansed to the hospital where she was found have significant vascular issues. The patient has been treated for her vascular issues over the past several days appropriate. She says her pain is improving and her mobility is improving. She still has swelling over the dorsum of her left foot and her toe still hurts. She has been wearing her sandals around the hospital and she says that she feels good with her sandals and it feels okay angulating. She denies any shortness of breath or chest pain. She says he has difficulty moving her foot and ankle. She has some diffuse soreness over her left lower extremity. Review of Systems As stated per HPI. Denies any fevers chills night sweats. Denies any chest pain or short of breath. Denies any weakness in her legs although it hurts at her foot and toes when she tries to move them. She says she is not having any problems at her left groin where she underwent her procedure. Past Medical History Past Medical History: Coronary Artery Disease (CAD), CVA/TIA, Hyperlipidemia, Hypertension, Myocardial Infarction ([place]), Osteoarthritis (OA), Skin Disorder Additional Past Medical History / Comment(s): hx migraines, TIA- FRACTURED RIGHT ANKLE 1/2 CAST Last Myocardial Infarction Date:: History of Any Multi-Drug Resistant Organisms: MRSA Year Discovered:: 08/12/21 MDRO Source:: TOE Past Surgical History: Heart Catheterization With Stent, Orthopedic Surgery, Tubal Ligation Additional Past Surgical History / Comment(s): left ankle surgery fracture- pins and plate inserted. 2 cardiac stents, neck surgery Past Anesthesia/Blood Transfusion Reactions: No Reported Reaction Date of Last Stent Placement:: 09/2016 Past Psychological History: No Psychological Hx Reported Smoking Status: Former smoker Past Alcohol Use History: Occasional Additional Past Alcohol Use History / Comment(s): started smoking at age 16(1970) and quit 2017, smoked 2 ppd.STARTED SMOKING 2019 SMOKING 1/2 PPD quit smoking a few weeks ago (08/2021) Past Drug Use History: Marijuana Additional Drug Use History / Comment(s): OCCASIONAL USE OF MARIJUANA - Past Family History Mother Family Medical History: Hypertension, Myocardial Infarction ([place]) Sister(s) Family Medical History: CVA/TIA Father Family Medical History: Cancer Additional Family Medical History / Comment(s): colon CA Brother(s) Family Medical History: Coronary Artery Disease (CAD), CVA/TIA Additional Family Medical History / Comment(s): CABG Medications and Allergies Home Medications Medication Instructions Recorded Confirmed Type Aspirin 325 mg PO DAILY 07/22/14 08/12/21 History Atorvastatin [Lipitor] 80 mg PO HS #30 tab 10/10/16 08/12/21 Rx Nitroglycerin Sl Tabs [Nitrostat] 0.4 mg SUBLINGUAL Q5M PRN #25 tab 10/10/16 08/12/21 Rx Multivit-Min/Iron/Folic/Lutein 1 tab PO DAILY 01/30/18 08/12/21 History [Centrum Silver Women Tablet] Ergocalciferol (Vitamin D2) 1,250 mcg PO Q30D 08/12/21 08/12/21 History [Drisdol (50,000 Iu)] HYDROcodone/APAP 5-325MG [[place] 1 tab PO BID PRN 08/12/21 08/12/21 History 5-325] Losartan Potassium 100 mg PO DAILY 08/12/21 08/12/21 History Metoprolol Tartrate [Lopressor] 50 mg PO BID 08/12/21 08/12/21 History hydrALAZINE HCL [Apresoline] 25 mg PO BID 08/12/21 08/12/21 History Allergies Allergy/AdvReac Type Severity Reaction Status Date / Time No Known Allergies Allergy Verified 08/12/21 15:32 Physical Examination Osteopathic Statement: *. No significant issues noted on an osteopathic structural exam other than those noted in the History and Physical/Consult. - Ankle & Foot left Ankle appearance: swelling (Her left lower leg she has diffuse swelling over the dorsum of her left foot. There is no gross erythema there is no fluid under pressure. She has some dryness over her toes particular the fourth toe. The nail is intact. There is capillary refill intact at the dorsum of foot. There is no fluctu) Foot appearance: swelling (Swelling at the dorsum of her left foot. There is no fluctuance. There is no drainage. She has minor motion at her ankle and toes but only minimally.) Foot swelling: dorsal Foot pain worse with weight bearing: No Results - Labs Labs: Abnormal Lab Results - Last 24 Hours (Table) 08/16/21 08/16/21 Range/Units 06:31 13:00 RBC 2.92 L (3.80-5.40) m/uL Hgb 10.1 L (11.4-16.0) gm/dL Hct 31.6 L (34.0-46.0) % MCV 108.3 H D (80.0-100.0) fL Lymphocytes # 0.9 L (1.0-4.8) k/uL Creatinine 1.09 H (0.52-1.04) mg/dL Microbiology - Last 24 Hours (Table) 08/12/21 17:01 Gram Stain - Final Toe - Left Fourth Wound Culture - Final Serratia marcescens Methicillin resist S. aureus Enterobacter aerogenes H & H 08/12/21 08/13/21 08/15/21 Range/Units 05:12 05:24 05:41 Hgb 12.9 11.0 L 10.5 L (11.4-16.0) gm/dL Hct 37.7 35.4 L 30.8 L (34.0-46.0) % 08/16/21 Range/Units 13:00 Hgb 10.1 L (11.4-16.0) gm/dL Hct 31.6 L (34.0-46.0) % Coagulation 08/12/21 Range/Units 05:12 INR 0.9 (<1.2) Result Diagrams: 08/16/21 13:00 08/16/21 06:31 Assessment and Plan Assessment: Lower extremity cellulitis improving Left foot swelling without evidence of abscess Pain at the fourth toe some chronic skin changes Plan: Lower extremity cellulitis improving Left foot swelling without evidence of abscess Pain at the fourth toe some chronic skin changes We are asked to see the patient regards possible abscess and I do not clinically see any abscess formation over her foot to require any sort of surgical drainage. I think that she has diffuse swelling and cellulitis which is being treated appropriately. She should continue her antibiotics and medical management for this. She has also been seen by vascular surgery on this admission and regards her vascular issues and if she continues to have problems with her foot or toes she can follow up with vascular surgery in this regard. I tried to discuss with this with her and she seems to understand. She'll plan to follow with vascular surgery for her lower extremity issues after discharge. We do not have plans for surgical intervention at this point from orthopedic standpoint. From orthopedic standpoint is okay for the patient to be discharged with her planned follow-up
--- NOTE | 2021-08-16 18:30 | XR ---
EXAMINATION TYPE: XR foot complete LT DATE OF EXAM: 08/16/2021 COMPARISON: 07/10/2021 HISTORY: Foot pain TECHNIQUE: 3 views FINDINGS: There is soft tissue swelling of the forefoot. Metatarsals are intact. The toes appear inta ct. I see no fracture nor dislocation. IMPRESSION: Soft tissue swelling appears increased compared to old exam. No fracture.
[2021-08-16] MEDS: VANCOMYCIN 1,000 MG in SODIUM CHLORIDE 0.9% 250 ML IVPB SCH (19:27)
[2021-08-16 20:21] LABS: African American GFR (CKD) 65.1 (60.0-200.0); Albumin 3.3 g/dL (3.8-4.9); Albumin/Globulin Ratio 1.38 (1.60-3.17); Anion Gap 7.4 mmol/L (10.00-18.00); BUN/Creat Ratio 13.69 Ratio (12.00-20.00); Blood Urea Nitrogen 14.1 mg/dL (9.0-27.0); Calcium 8.6 mg/dL (8.7-10.3); Carbon Dioxide 21.6 mmol/L (20.0-27.5); Globulin 2.4 g/dL (1.6-3.3); Non-African American GFR(CKD) 56.2 (60.0-200.0); Potassium 4.7 mmol/L (3.5-5.5); Total Bilirubin 0.3 mg/dL (0.30-1.20); Total Protein 5.7 g/dL (6.2-8.2)
[2021-08-16] MEDS: ATORVASTATIN 80 MG TAB PO SCH (20:38)
--- NOTE | 2021-08-16 22:40 | PN ---
PROGRESS NOTE DATE OF SERVICE: 08/16/2021 REASON FOR FOLLOWUP: Left fourth toe wound with secondary cellulitis of the foot. INTERVAL HISTORY: The patient is afebrile. The patient is breathing comfortably. Still complaining of pain to the left foot area. No chest pain, shortness of breath or cough. No abdominal pain or diarrhea. PHYSICAL EXAMINATION: Blood pressure 145/70 with a pulse of 71, temperature 97.4. She is 100% on room air. General description is an elderly female up in the bed in no distress. Respiratory system: Unlabored breathing. Clear to auscultation anteriorly. Heart S1, S2. Regular rate and rhythm. Abdomen soft, no tenderness. Left foot dorsum still has some swelling, redness and mild tenderness to touch. No drainage from the left fourth toe wound. LABS: Hemoglobin is 10.1, white count 6.1, creatinine 1.0. DIAGNOSTIC IMPRESSION AND PLAN: Patient with left fourth toe wound with secondary cellulitis of the left foot. Culture with multiple pathogens, including Enterobacter. Patient is covered with vancomycin and cefepime. Transition to oral Cipro and doxycycline on discharge and close outpatient followup. Continue supportive care. MMODL / IJN: [id number] /
[2021-08-17] MEDS: SODIUM CHLORIDE 0.9% 1,000 ML IV SCH ×2 (00:09→10:23)
[2021-08-17 02:12] VITALS: PULSE 59
[2021-08-17] MEDS: MORPHINE SULFATE 4 MG/ML SYRINGE IV PRN (02:41)
[2021-08-17] MEDS: METOPROLOL TARTRATE 50 MG TAB PO SCH (07:33)
[2021-08-17] MEDS: hydrALAZINE HCL 25 MG TAB PO SCH (07:34)
[2021-08-17] MEDS: CLOPIDOGREL 75 MG TAB PO SCH (07:34)
[2021-08-17] MEDS: LOSARTAN 50 MG TAB PO SCH (07:34)
[2021-08-17] MEDS: HYDROcodone/APAP 5-325MG 1 EACH TAB PO PRN (07:34)
[2021-08-17] MEDS: ASPIRIN 325 MG TAB PO SCH (07:34)
[2021-08-17] MEDS: CEFEPIME 2 GM in SODIUM CHLORIDE 0.9% 100 ML IVPB SCH (07:35)
[2021-08-17 08:06] VITALS: BP 176/67; RESP 18; TEMP 98.3
--- NOTE | 2021-08-17 12:43 | P.PN ---
Subjective Progress Note Date: 08/17/21 Patient is seen and examined sitting up at the bedside. She is status post left lower extremity angiogram with percutaneous balloon angioplasty of the left SFA and stenting of the left SFA. Closure of right femoral artery with Vascade device. Reports improvement in her pain to her right ankle and foot well as improvement to her swelling. She is afebrile. No leukocytosis as of yesterday's labs. No current labs. Objective - Vital Signs Vital signs: Vital Signs Temp 98.3 F 08/17/21 08:00 Pulse 59 L 08/17/21 08:00 Resp 18 08/17/21 08:00 BP 176/67 08/17/21 08:00 Pulse Ox 97 08/17/21 08:00 Intake & Output 08/16/21 08/17/21 08/17/21 18:59 06:59 18:59 Intake Total 358 400 476 Balance 358 400 476 Intake: Oral 358 400 476 Other: Voiding Method Toilet # Voids 2 2 # Bowel Movements 0 - Exam General appearance: The patient is alert, oriented, in no acute distress. HET: Head is normocephalic and atraumatic. Pupils are equal and reactive. Oropharynx is clear without lesions.achea midline. Extremities: Left foot dorsal aspect with improved edema. Minimal tenderness to palpation to dorsal aspect of foot. No tenderness in the calf. She has good capillary refill. Palpable posterior tibialis pulse. Positive Doppler signal obtained popliteal, dorsalis pedis and posterior tibialis. Right groin access site clean dry and intact without any evidence of bleeding, no hematoma, and nontender. Neurological: No focal deficits. Strength and sensation are grossly intact. - Labs CBC & Chem 7: 08/16/21 13:00 08/16/21 13:00 Labs: Abnormal Lab Results - Last 24 Hours (Table) 08/16/21 08/16/21 Range/Units 13:00 13:00 RBC 2.92 L (3.80-5.40) m/uL Hgb 10.1 L (11.4-16.0) gm/dL Hct 31.6 L (34.0-46.0) % MCV 108.3 H D (80.0-100.0) fL Lymphocytes # 0.9 L (1.0-4.8) k/uL Anion Gap 7.40 L (10.00-18.00) mmol/L Est GFR (CKD-EPI)NonAf 56.2 L (60.0-200.0) Glucose 116 H (70-110) mg/dL Calcium 8.6 L (8.7-10.3) mg/dL AST 49 H (13-35) U/L Total Protein 5.7 L (6.2-8.2) g/dL Albumin 3.3 L (3.8-4.9) g/dL Albumin/Globulin Ratio 1.38 L (1.60-3.17) g/dL Microbiology - Last 24 Hours (Table) 08/12/21 17:01 Anaerobic Culture - Final Toe - Left Fourth Assessment and Plan Assessment: 1. Postop day #3 left lower extremity angiogram with percutaneous balloon angioplasty of the left SFA with stenting. Right common femoral artery closure with Vascade device 2. Left SFA occlusion with arthrosclerosis disease noted to the left popliteal artery 3. Left fourth toe infected wound with cellulitis to left foot 4. Left foot edema and discomfort likely related to increased blood flow to the left lower extremity and foot status post revascularization 5. History of peripheral arterial disease status post revascularization bilateral lower extremities 6. History of hyperlipidemia Plan: 1. Diet as tolerated 2. Continue with antibiotics per recommendations from infectious disease 3. Follow up with Dr. Jimenez Thank you for this consultation, no further plans for surgical intervention. Patient is cleared by vascular surgery for discharge. The impression and plan of care has been dictated as directed. Dr. Infante I performed a history and examination of this patient, discussed the same with the dictator. I agree with the dictator's note ,documented as a scribe. Any additional findings or plans will be noted.
[2021-08-17] MEDS ORDERED: DOXYCYCLINE 100 MG CAP PO SCH (21:00)
[2021-08-17] MEDS ORDERED: CIPROFLOXACIN HCL 500 MG TAB PO SCH (21:00)
--- NOTE | 2021-08-18 05:40 | DS ---
DISCHARGE SUMMARY CHIEF COMPLAINT: Pain, swelling and redness in the left foot. HISTORY OF PRESENT ILLNESS AND PHYSICAL EXAMINATION: Details of this lady's history and physical can be found in the initial workup. COURSE IN THE HOSPITAL: After admission, she was placed on bedrest, started on intravenous fluids. She was seen by Vascular Surgery and taken for stenting of the common femoral artery. Postoperatively she did well, but she had some pain. She did retain excellent perfusion. However, the dorsum of the foot started to become more red, swollen and tender and there was concern that she may have abscess. She was seen by Orthopedics, who felt that she did not require incision and drainage. It was felt that she could go home on the nin and she will go home on her usual activity as tolerated, diet and medications. She will be on Vibramycin 100 mg twice a day with Cipro 500 mg twice a day and she will be seen in the office in several days. FINAL DIAGNOSES: 1. Peripheral vascular occlusive disease with ischemia in the left foot. 2. Cellulitis of the left foot. 3. Ischemic ulcer of the left fourth toe. 4. Chronic obstructive pulmonary disease. 5. Hypertension. OPERATIONS: Stenting of the common femoral artery. CONSULTATIONS: Vascular surgery and Infectious Disease as well as Orthopedics. She is improved. MMODL / IJN: [id number] /
== END 2021-08-17 12:25 | disposition home or self-care (01) | DRG 253 ==
LOC: EC 02:08 → 6NMEDSUR 05:17 → OBSVTOIN 08-14 15:41
PROVIDERS: ADMIT Family Medicine; ATTEND Family Medicine
PROC: B41G1ZZ Fluoroscopy of Left Lower Extremity Arteries using Low Osmolar Contrast (ICD-10-PCS; 2021-08-13)
PROC: 047L3ZZ Dilation of Left Femoral Artery, Percutaneous Approach (ICD-10-PCS; principal; 2021-08-15)
PROC: 047L3DZ Dilation of Left Femoral Artery with Intraluminal Device, Percutaneous Approach (ICD-10-PCS; 2021-08-15)
DX: I70.222 Atherosclerosis of native arteries of extremities with rest pain, left leg (principal); L03.115 Cellulitis of right lower limb; L03.116 Cellulitis of left lower limb; L97.529 Non-pressure chronic ulcer of other part of left foot with unspecified severity; I10 Essential (primary) hypertension; Z20.822 Contact with and (suspected) exposure to COVID-19; I25.10 Atherosclerotic heart disease of native coronary artery without angina pectoris; G43.909 Migraine, unspecified, not intractable, without status migrainosus; K21.9 Gastro-esophageal reflux disease without esophagitis; J44.9 Chronic obstructive pulmonary disease, unspecified; E78.5 Hyperlipidemia, unspecified; F17.210 Nicotine dependence, cigarettes, uncomplicated; M19.90 Unspecified osteoarthritis, unspecified site; L98.9 Disorder of the skin and subcutaneous tissue, unspecified; I25.2 Old myocardial infarction; Z79.82 Long term (current) use of aspirin; Z79.899 Other long term (current) drug therapy; Z86.73 Personal history of transient ischemic attack (TIA), and cerebral infarction without residual deficits; Z95.5 Presence of coronary angioplasty implant and graft; Z98.51 Tubal ligation status
CPT/HCPCS: 37226; 75710; 76937; 80048; 80053; 82565; 83735; 83880; 84100; 84484; 85025; 85610; 85730; 87070; 87075; 87077; 87186; 87205; 87635; 93005

== ENCOUNTER → 2022-03-02 | Outpatient (CLI) | payer MEDICARE, OTHER ==
--- NOTE | 2022-03-05 14:29 | MM ---
Reason for Exam: Screening (asymptomatic). Last mammogram was performed 2 year(s) and 8 month(s) ago. Patient History: Menarche at age 11. First Full-Term at age 16. Postmenopausal. Risk Values: Christie 5 year model risk: 1.2%. NCI Lifetime model risk: 4.2%. Prior Study Comparison: 02/05/2017 Left Diagnostic Mammogram, [facility]. 08/08/2017 Left Diagnostic Mammogram, [facility]. 06/18/2019 Bilateral Diagnostic Mammogram, [facility]. Tissue Density: There are scattered fibroglandular densities. Findings: Analyzed By CAD. There is no suspicious group of microcalcifications or new suspicious mass in either breast. Overall Assessment: Negative, BI-RAD 1 Management: Screening Mammogram of both breasts in 1 year. 1. Patient should continue monthly self breast exams. 2. A clinical breast exam by your physician is recommended on an annual basis. 3. This exam should not preclude additional follow-up of suspicious palpable abnormalities. Electronically signed and approved by: Leydi Peña M.D. Radiologist
== END | disposition home or self-care (01) ==
LOC: RADMAMWWP 14:56
PROVIDERS: ATTEND Family Medicine
DX: Z12.31 Encounter for screening mammogram for malignant neoplasm of breast (principal); Z78.0 Asymptomatic menopausal state
CPT/HCPCS: 77063; 77067

== ENCOUNTER 2023-11-03 23:43 | Inpatient (IN) | payer MEDICARE ==
--- NOTE | 2023-11-04 00:07 | ED ---
General Adult HPI - General Chief complaint: Extremity Problem,Nontraumatic Stated complaint: Right Leg & foot Swelling Time Seen by Provider: 11/03/23 23:52 Source: patient, RN notes reviewed, old records reviewed Mode of arrival: ambulatory Limitations: no limitations - History of Present Illness Initial comments: 68-year-old female presenting for evaluation of right leg pain and swelling. Patient states she has had symptoms for approximately the past 2 weeks. She states she was seen at outside hospital and diagnosed with cellulitis. She was started on antibiotic without significant improvement. She states that swelling is isolated to the right leg. She does report some mild increased dyspnea. No fever. No cough. No central chest pain. - Related Data Home Medications Medication Instructions Recorded Confirmed Aspirin 325 mg PO DAILY 07/22/14 08/12/21 Multivit-Min/Iron/Folic/Lutein 1 tab PO DAILY 01/30/18 08/12/21 [Centrum Silver Women Tablet] Ergocalciferol (Vitamin D2) 1,250 mcg PO Q30D 08/12/21 08/12/21 [Drisdol (50,000 Iu)] HYDROcodone/APAP 5-325MG [[place] 1 tab PO BID PRN 08/12/21 08/12/21 5-325] Losartan Potassium 100 mg PO DAILY 08/12/21 08/12/21 Metoprolol Tartrate [Lopressor] 50 mg PO BID 08/12/21 08/12/21 hydrALAZINE HCL [Apresoline] 25 mg PO BID 08/12/21 08/12/21 Previous Rx's Medication Instructions Recorded Atorvastatin [Lipitor] 80 mg PO HS #30 tab 10/10/16 Nitroglycerin Sl Tabs [Nitrostat] 0.4 mg SUBLINGUAL Q5M PRN #25 tab 10/10/16 Ciprofloxacin HCl [Cipro] 500 mg PO BID #20 tab 08/17/21 Clopidogrel [Plavix] 75 mg PO DAILY #60 tab 08/17/21 Doxycycline [Vibramycin] 100 mg PO BID #20 cap 08/17/21 Allergies Allergy/AdvReac Type Severity Reaction Status Date / Time No Known Allergies Allergy Verified 11/03/23 23:50 Review of Systems ROS Statement: Those systems with pertinent positive or pertinent negative responses have been documented in the HPI. ROS Other: All systems not noted in ROS Statement are negative. Past Medical History Past Medical History: Coronary Artery Disease (CAD), CVA/TIA, GERD/Reflux, Hyperlipidemia, Hypertension, Myocardial Infarction ([place]), Osteoarthritis (OA), Skin Disorder Additional Past Medical History / Comment(s): hx migraines, TIA- FRACTURED RIGHT ANKLE 1/2 CAST Last Myocardial Infarction Date:: History of Any Multi-Drug Resistant Organisms: MRSA Date of last positivie culture/infection: 02/21/18 MDRO Source:: NECK Past Surgical History: Heart Catheterization With Stent, Orthopedic Surgery, Tubal Ligation Additional Past Surgical History / Comment(s): left ankle surgery fracture- pins and plate inserted. 2 cardiac stents, neck surgery Past Anesthesia/Blood Transfusion Reactions: No Reported Reaction Date of Last Stent Placement:: 09/2016 Past Psychological History: No Psychological Hx Reported Smoking Status: Current every day smoker Past Alcohol Use History: Occasional Past Drug Use History: None Reported - Past Family History Mother Family Medical History: Hypertension, Myocardial Infarction ([place]) Sister(s) Family Medical History: CVA/TIA, Hypertension, Myocardial Infarction ([place]) Father Family Medical History: Cancer Additional Family Medical History / Comment(s): colon CA Brother(s) Family Medical History: Coronary Artery Disease (CAD), CVA/TIA Additional Family Medical History / Comment(s): CABG General Exam Limitations: no limitations General appearance: alert, in no apparent distress Head exam: Present: atraumatic, normocephalic Eye exam: Present: normal appearance, PERRL ENT exam: Present: normal exam Neck exam: Present: normal inspection. Absent: tenderness, meningismus Respiratory exam: Present: normal lung sounds bilaterally. Absent: respiratory distress, wheezes Cardiovascular Exam: Present: normal rhythm, tachycardia GI/Abdominal exam: Present: soft. Absent: distended, tenderness Extremities exam: Present: pedal edema (Right-sided edema and swelling, tenderness to palpation, no warmth or erythema, distal pulses intact), calf tenderness Neurological exam: Present: alert, oriented X3, CN II-XII intact. Absent: motor sensory deficit Psychiatric exam: Present: normal affect, normal mood Skin exam: Present: warm, dry, intact. Absent: cyanosis, diaphoretic Course Vital Signs 11/03/23 23:48 Temperature 98.7 F Pulse Rate 111 H Respiratory 20 Rate Blood Pressure 185/81 O2 Sat by Pulse 97 Oximetry Medical Decision Making - Medical Decision Making Was pt. sent in by a medical professional or institution (, ARIANNA, CERTIFIED PROFESSIONAL CONTROLLER, urgent care, hospital, or [place] health care facility...) When possible be specific @ -No Did you speak to anyone other than the patient for history (EMS, parent, family, police, friend...)? What history was obtained from this source @ -No Did you review nursing and triage notes (agree or disagree)? Why? @ -I reviewed and agree with nursing and triage notes Were old charts reviewed (outside hosp., previous admission, EMS record, old EKG, old radiological studies, urgent care reports/EKG's, [place] health care facility records)? Report findings @ -No old charts were reviewed Differential Diagnosis (chest pain, altered mental status, abdominal pain women, abdominal pain men, vaginal bleeding, weakness, fever, dyspnea, syncope, headache, dizziness, GI bleed, back pain, seizure, CVA, palpatations, mental health, musculoskeletal)? @Differential Dyspnea: Coronary syndrome, arrhythmia, tamponade, asthma, COPD, pulmonary embolism, pneumonia, pneumothorax, pulmonary effusion, anaphylaxis, diabetic ketoacidosis, flailed chest, pulmonary contusion, diaphragmatic rupture, anemia, neuromuscular, this is not meant to be an all-inclusive list. EKG interpreted by me (3pts min.). @ -Sinus tachycardia ventricular rate of 100, PA interval 165 QRS duration 105, QTc [address] segment elevation. X-rays interpreted by me (1pt min.). @ -Chest x-ray showing pulmonary edema and CHF. CT interpreted by me (1pt min.). @ -[CT abdomen pelvis showing fluid overload state without other acute intra- abdominal findings. U/S interpreted by me (1pt. min.). @ -Ultrasound of the right leg is negative for DVT. What testing was considered but not performed or refused? (CT, X-rays, U/S, la bs)? Why? @ -None What meds were considered but not given or refused? Why? @ -None Did you discuss the management of the patient with other professionals (professionals i.e. ARIANNA Koch, CERTIFIED PROFESSIONAL CONTROLLER, lab, RT, psych nurse, social services aide, growth media mixer mushroom, teacher, flight communications officer, shoe parts caser)? Give summary @ -Dr. Dominguez who will admit. Was smoking cessation discussed for >3mins.? @ -No Was critical care preformed (if so, how long)? @ -No Were there social determinants of health that impacted care today? How? (Ho melessness, low income, unemployed, alcoholism, drug addiction, transportation, low edu. Level, literacy, decrease access to med. care, [facility], rehab)? @ -No Was there de-escalation of care discussed even if they declined (Discuss DNR or withdrawal of care, Hospice)? DNR status @ -No What co-morbidities impacted this encounter? (DM, HTN, Smoking, COPD, CAD, Cancer, CVA, ARF, Chemo, Hep., AIDS, mental health diagnosis, sleep apnea, morbid obesity)? @ -CHF. Was patient admitted / discharged? Hospital course, mention meds given and route, prescriptions, significant lab abnormalities, going to OR and other pertinent info. @ -[68-year-old female with dyspnea and right leg lower extremity swelling. Ultrasound performed negative for DVT. Patient is in sinus rhythm. Chest x-ray shows CHF and fluid overload. Patient admitted for IV diuresis. She has a significantly elevated BNP, negative troponin. Cardiology placed on consult for evaluation. Undiagnosed new problem with uncertain prognosis? @ -No Drug Therapy requiring intensive monitoring for toxicity (Heparin, Nitro, Insulin, Cardizem)? @ -No Were any procedures done? @ -No Diagnosis/symptom? @ -CHF Acute, or Chronic, or Acute on Chronic? @Acute Uncomplicated (without systemic symptoms) or Complicated (systemic symptoms)? @ -Default Side effects of treatment? @ -No Exacerbation, Progression, or Severe Exacerbation? @ -No Poses a threat to life or bodily function? How? (Chest pain, [place], MA, pneumonia, PE, COPD, DKA, ARF, appy, cholecystitis, CVA, Diverticulitis, Homicidal, Suicidal, threat to staff... and all critical care pts) @ -Yes, CHF - Lab Data Result diagrams: 11/04/23 00:46 11/04/23 00:46 Lab Results 11/04/23 11/04/23 11/04/23 Range/Units 00:46 00:46 00:46 WBC 4.8 (3.8-10.6) k/uL RBC 3.93 (3.80-5.40) m/uL Hgb 11.9 (11.4-16.0) gm/dL Hct 38.1 (34.0-46.0) % MCV 96.9 (80.0-100.0) fL MCH 30.4 (25.0-35.0) pg MCHC 31.4 (31.0-37.0) g/dL RDW 14.1 (11.5-15.5) % Plt Count 160 (150-450) k/uL MPV 8.1 Neutrophils % 65 % Lymphocytes % 24 % Monocytes % 6 % Eosinophils % 2 % Basophils % 1 % Neutrophils # 3.1 (1.3-7.7) k/uL Lymphocytes # 1.2 (1.0-4.8) k/uL Monocytes # 0.3 (0-1.0) k/uL Eosinophils # 0.1 (0-0.7) k/uL Basophils # 0.0 (0-0.2) k/uL Hypochromasia Marked PT 12.1 (10.0-12.5) sec INR 1.1 (<1.2) APTT 22.9 (22.0-30.0) sec Sodium 141 (137-145) mmol/L Potassium 4.1 (3.5-5.1) mmol/L Chloride 111 H (98-107) mmol/L Carbon Dioxide 23 (22-30) mmol/L Anion Gap 7 mmol/L BUN 18 H (7-17) mg/dL Creatinine 0.96 (0.52-1.04) mg/dL Est GFR (CKD-EPI)AfAm 70 (>60 ml/min/1.73 sqM) Est GFR (CKD-EPI)NonAf 61 (>60 ml/min/1.73 sqM) Glucose 110 H (74-99) mg/dL Calcium 9.0 (8.4-10.2) mg/dL Magnesium 1.7 (1.6-2.3) mg/dL Total Bilirubin 1.0 (0.2-1.3) mg/dL AST 26 (14-36) U/L ALT 14 (4-34) U/L Alkaline Phosphatase 88 (38-126) U/L Troponin I (0.000-0.034) ng/mL NT-Pro-B Natriuret Pep 24492 pg/mL Total Protein 6.7 (6.3-8.2) g/dL Albumin 3.6 (3.5-5.0) g/dL 11/04/23 Range/Units 00:46 WBC (3.8-10.6) k/uL RBC (3.80-5.40) m/uL Hgb (11.4-16.0) gm/dL Hct (34.0-46.0) % MCV (80.0-100.0) fL MCH (25.0-35.0) pg MCHC (31.0-37.0) g/dL RDW (11.5-15.5) % Plt Count (150-450) k/uL MPV Neutrophils % % Lymphocytes % % Monocytes % % Eosinophils % % Basophils % % Neutrophils # (1.3-7.7) k/uL Lymphocytes # (1.0-4.8) k/uL Monocytes # (0-1.0) k/uL Eosinophils # (0-0.7) k/uL Basophils # (0-0.2) k/uL Hypochromasia PT (10.0-12.5) sec INR (<1.2) APTT (22.0-30.0) sec Sodium (137-145) mmol/L Potassium (3.5-5.1) mmol/L Chloride (98-107) mmol/L Carbon Dioxide (22-30) mmol/L Anion Gap mmol/L BUN (7-17) mg/dL Creatinine (0.52-1.04) mg/dL Est GFR (CKD-EPI)AfAm (>60 ml/min/1.73 sqM) Est GFR (CKD-EPI)NonAf (>60 ml/min/1.73 sqM) Glucose (74-99) mg/dL Calcium (8.4-10.2) mg/dL Magnesium (1.6-2.3) mg/dL Total Bilirubin (0.2-1.3) mg/dL AST (14-36) U/L ALT (4-34) U/L Alkaline Phosphatase (38-126) U/L Troponin I 0.019 (0.000-0.034) ng/mL NT-Pro-B Natriuret Pep pg/mL Total Protein (6.3-8.2) g/dL Albumin (3.5-5.0) g/dL Disposition Clinical Impression: CHF (congestive heart failure) Disposition: ADMITTED IP TO THIS HOSP Condition: Stable Is patient prescribed a controlled substance at d/c from ED?: No Referrals: None,Stated [Primary Care Provider] - 1-2 days Time of Disposition: 02:25
--- NOTE | 2023-11-04 00:47 | US ---
EXAMINATION TYPE: US venous doppler duplex LE RT DATE OF EXAM: 11/04/2023 12:27 AM COMPARISON: NONE CLINICAL INDICATION: Female, 68 years old with history of pain/swelling; pain and swelling to right l eg going on for 3 weeks, no h/o dvt SIDE PERFORMED: Right TECHNIQUE: The lower extremity deep venous system is examined utilizing real time linear array sonog jose with graded compression, doppler sonography and color-flow sonography. VESSELS IMAGED: Common Femoral Vein Deep Femoral Vein Greater Saphenous Vein * Femoral Vein Popliteal Vein Small Saphenous Vein * Proximal Calf Veins (* superficial vessels) Right Leg: Negative for DVT, area of pain on lateral calf was edematous tissue Grayscale, color doppler, spectral doppler imaging performed of the deep veins of the right lower ext remity. There is normal flow, compressibility, vascular waveforms. IMPRESSION: No ultrasound evidence for acute DVT in the right lower extremity. Moderate to severe di ffuse subcutaneous edema is seen distally on the last images obtained.
--- NOTE | 2023-11-04 01:00 | XR ---
EXAMINATION TYPE: XR chest 2V DATE OF EXAM: 11/04/2023 COMPARISON: Chest x-ray April 25, 2021 HISTORY: Difficulty breathing. TECHNIQUE: Frontal and lateral views of the chest are obtained. FINDINGS: Cardiomegaly is now seen. There is new [id number] central vascular congestion. No eubanks spicious focal airspace opacity. There are tiny bilateral pleural effusions. The osseous structures are intact. IMPRESSION: Findings are consistent with CHF exacerbation/fluid overload state as detailed above.
[2023-11-04 01:02] LABS: ALT 14 U/L (4-34); AST 26 U/L (14-36); African American GFR (CKD) 70 (>60 ml/min/1.73 sqM); Albumin 3.6 g/dL (3.5-5.0); Alkaline Phosphatase 88 U/L (38-126); Anion Gap 7 mmol/L; Blood Urea Nitrogen 18 mg/dL (7-17); Carbon Dioxide 23 mmol/L (22-30); Chloride 111 mmol/L (98-107); Glucose 110 mg/dL (74-99); Magnesium 1.7 mg/dL (1.6-2.3); Non-African American GFR(CKD) 61 (>60 ml/min/1.73 sqM); Potassium 4.1 mmol/L (3.5-5.1); Sodium 141 mmol/L (137-145); Total Protein 6.7 g/dL (6.3-8.2)
[2023-11-04 01:11] LABS: NT-Pro-B-Type Natriuretic Pept 23500 pg/mL
[2023-11-04 01:13] LABS: INR 1.1 (<1.2); Partial Thromboplastin Time 22.9 sec (22.0-30.0); Prothrombin Time 12.1 sec (10.0-12.5)
[2023-11-04 01:28] LABS: Basophils % (A) 1 %; Eosinophils # (A) 0.1 k/uL (0-0.7); Eosinophils % (A) 2 %; HCT 38.1 % (34.0-46.0); HGB 11.9 gm/dL (11.4-16.0); Hypochromasia Marked; Lymphocytes # (A) 1.2 k/uL (1.0-4.8); Lymphocytes % (A) 24 %; MCH 30.4 pg (25.0-35.0); MCHC 31.4 g/dL (31.0-37.0); MCV 96.9 fL (80.0-100.0); Mean Platelet Volume 8.1; Monocytes # (A) 0.3 k/uL (0-1.0); Monocytes % (A) 6 %; Neutrophils # (A) 3.1 k/uL (1.3-7.7); Neutrophils % (A) 65 %; Platelet Count 160 k/uL (150-450); RBC 3.93 m/uL (3.80-5.40); RDW 14.1 % (11.5-15.5); WBC 4.8 k/uL (3.8-10.6)
[2023-11-04] MEDS ORDERED: NALOXONE 0.4 MG/ML 1 ML VIAL IV PRN (01:41)
[2023-11-04] MEDS: FUROSEMIDE 10 MG/ML 4 ML VIAL IV STA (02:14)
[2023-11-04] MEDS: ASPIRIN 325 MG TAB PO STA (02:15)
--- NOTE | 2023-11-04 02:15 | CT ---
EXAMINATION TYPE: CT abdomen pelvis w con DATE OF EXAM: 11/04/2023 HISTORY: came in with right leg pain and swelling, [place], suprapubic pain CT DLP: 875.9mGycm Automated Exposure Control for Dose Reduction was Utilized. CONTRAST: CT scan of the abdomen and pelvis is performed with IV Contrast, patient injected with 80 mL of Isovu e 300. COMPARISON: None. FINDINGS: LUNG BASES: Small to tiny left pleural effusion. Small to moderate-size right pleural effusion. Assoc iated right basilar compressive atelectasis. Mild Cardiomegaly with small to tiny pericardial effusio n. LIVER/GB: Liver is diffusely low dense consistent with fatty infiltrative hepatocellular disease. Gal lbladder has mild surrounding fluid PANCREAS: No significant abnormality is seen. SPLEEN: No significant abnormality is seen. ADRENALS: No significant abnormality is seen. KIDNEYS: No hydronephrosis is seen bilaterally. BOWEL: No abnormal small or large bowel dilatation. Stomach poorly distended and thus suboptimally e valuated. Zkzn-po-ypwawddd diffuse wall thickening is seen. UTERUS/ADNEXA: Anteverted uterus. LYMPH NODES: No greater than 1cm abdominal or pelvic lymph nodes are appreciated. OSSEOUS STRUCTURES: Facet arthropathy in the lower lumbar spine. OTHER: Moderate to severe mixed plaque of the aorta extends into branch vessels. Small to moderate am ount free fluid in the pelvis. Drvv-fb-lelrjvia diffuse subcutaneous edema. IMPRESSION: 1. Small right greater than left pleural effusions. Mild to moderate diffuse subcutaneous edema. Find ings consistent with fluid overload state. 2. Fatty infiltrated hepatocellular disease. Mild pericholecystic edema is nonspecific finding may be related to liver disease. Acute cholecystitis cannot be excluded in appropriate clinical setting. 3. No bowel obstruction. Possible mild/moderate diffuse gastritis. Correlate clinically. 4. Moderate to severe diffuse atherosclerotic change of aorta extending into branch vessels.
--- NOTE | 2023-11-04 05:05 | P.HPIM ---
History of Present Illness H&P Date: 11/04/23 Chief Complaint: Leg swelling 68-year-old female with congestive heart failure, COPD CAD not on home oxygen Patient coming in due to worsening swelling of her right lower extremity. She reports that her symptoms started earlier this month when she had extreme redness and swelling of her right lower extremities she went to a different facility was diagnosed with cellulitis she was given antibiotics erythema has improved since then however she continues to having increased swelling of her right lower extremity and over the past few days she started experiencing shortness of breath with mild exertion and with orthopnea. She denies any coughing denies any fevers chills denies any chest pain denies any nausea vomiting denies any abdominal pain she denies any history of blood clots denies any diagnosis of active cancer. She denies any GI bleeding patient is not on any blood thinners however she does take aspirin and Plavix for coronary artery disease. review of systems Pertinent positives as noted in HPI. All other systems were reviewed and are negative on exam Constitutional: No acute distress, conversant, pleasant Eyes: Anicteric sclerae, moist conjunctiva, Pupils equal round reactive to light ENMT: NC/AT Oropharynx clear, no erythema, or exudates Neck: Supple, no masses, or JVD No carotid bruits No thyromegaly Lungs: Diminished breath sounds at lung bases with inspiratory rales Clear to percussion Normal respiratory effort, no accessory muscle use Cardiovascular: Heart regular in rate and rhythm, No murmurs, gallops, or rubs Unilateral peripheral leg edema on the right side Abdominal: Soft Nontender, no guarding, rebound or rigidity Abdomen moving with respiration Normoactive bowel sounds No hepatomegaly, No splenomegaly No palpable mass Extremities: No digital cyanosis No clubbing Pedal pulses intact and symmetrical Radial pulses intact and symmetrical No calf tenderness Psychiatric: Alert and oriented to person, place and time Appropriate affect fair judgement Neuro Muscles Strength 4/5 in all 4 extremities Sensation to light touch grossly present throughout Cranial nerves II-XII grossly intact Lymphatics: no palpable cervical or supraclavicular lymph nodes Past Medical History Past Medical History: Coronary Artery Disease (CAD), CVA/TIA, GERD/Reflux, Hyperlipidemia, Hypertension, Myocardial Infarction ([place]), Osteoarthritis (OA), Skin Disorder Additional Past Medical History / Comment(s): hx migraines, TIA- FRACTURED RIGHT ANKLE 1/2 CAST Last Myocardial Infarction Date:: History of Any Multi-Drug Resistant Organisms: MRSA Date of last positivie culture/infection: 02/21/18 MDRO Source:: NECK Past Surgical History: Heart Catheterization With Stent, Orthopedic Surgery, Tubal Ligation Additional Past Surgical History / Comment(s): left ankle surgery fracture- pins and plate inserted. 2 cardiac stents, neck surgery Past Anesthesia/Blood Transfusion Reactions: No Reported Reaction Date of Last Stent Placement:: 09/2016 Past Psychological History: No Psychological Hx Reported Smoking Status: Current every day smoker Past Alcohol Use History: Occasional Past Drug Use History: None Reported - Past Family History Mother Family Medical History: Hypertension, Myocardial Infarction ([place]) Sister(s) Family Medical History: CVA/TIA, Hypertension, Myocardial Infarction ([place]) Father Family Medical History: Cancer Additional Family Medical History / Comment(s): colon CA Brother(s) Family Medical History: Coronary Artery Disease (CAD), CVA/TIA Additional Family Medical History / Comment(s): CABG Medications and Allergies Home Medications Medication Instructions Recorded Confirmed Type Aspirin 325 mg PO DAILY 07/22/14 08/12/21 History Atorvastatin [Lipitor] 80 mg PO HS #30 tab 10/10/16 08/12/21 Rx Nitroglycerin Sl Tabs [Nitrostat] 0.4 mg SUBLINGUAL Q5M PRN #25 tab 10/10/16 08/12/21 Rx Multivit-Min/Iron/Folic/Lutein 1 tab PO DAILY 01/30/18 08/12/21 History [Centrum Silver Women Tablet] Ergocalciferol (Vitamin D2) 1,250 mcg PO Q30D 08/12/21 08/12/21 History [Drisdol (50,000 Iu)] HYDROcodone/APAP 5-325MG [[place] 1 tab PO BID PRN 08/12/21 08/12/21 History 5-325] Losartan Potassium 100 mg PO DAILY 08/12/21 08/12/21 History Metoprolol Tartrate [Lopressor] 50 mg PO BID 08/12/21 08/12/21 History hydrALAZINE HCL [Apresoline] 25 mg PO BID 08/12/21 08/12/21 History Ciprofloxacin HCl [Cipro] 500 mg PO BID #20 tab 08/17/21 Rx Clopidogrel [Plavix] 75 mg PO DAILY #60 tab 08/17/21 Rx Doxycycline [Vibramycin] 100 mg PO BID #20 cap 08/17/21 Rx Allergies Allergy/AdvReac Type Severity Reaction Status Date / Time No Known Allergies Allergy Verified 11/03/23 23:50 Physical Exam Vitals: Vital Signs Temp Pulse Resp BP Pulse Ox 11/04/23 02:30 88 18 174/90 94 L 11/04/23 01:00 98 22 189/99 95 11/03/23 23:48 98.7 F 111 H 20 185/81 97 Intake and Output 11/03/23 11/03/23 11/04/23 14:59 22:59 06:59 Other: Weight 64.864 kg Results CBC & Chem 7: 11/04/23 00:46 11/04/23 00:46 Labs: Abnormal Lab Results - Last 24 Hours (Table) 11/04/23 Range/Units 00:46 Chloride 111 H (98-107) mmol/L BUN 18 H (7-17) mg/dL Glucose 110 H (74-99) mg/dL Assessment and Plan Assessment: 68-year-old female congestive heart failure coronary artery disease, COPD not on home oxygen coming in for worsening exertional dyspnea over the past few days and worsening right lower extremity edema I discussed the case with ED doctor accepted the admission for acute CHF exacerbation with fluid overload with anticipated length of stay more than 2 midnights Acute CHF exacerbation Chest x-ray showing right pleural effusion Right lower extremity edema, Doppler venous ultrasound showed tissue edema without any evidence of acute DVT CT of the abdomen pelvis showed soft tissue edema no evidence of any acute intra-abdominal pathology Cardiac monitoring Check echocardiogram Cardiology consult Lasix IV push 40 mg twice daily Daily weight Supplemental oxygen as needed proBNP show [id number] Chronic conditions COPD mild exertion secondary to above Continue with DuoNebs scheduled and as needed Supplemental oxygen as needed No systemic steroids at this time CAD Continue with Plavix aspirin Continue with cardiac meds losartan 100 mg p.o. daily, metoprolol 50 mg p.o. twice daily Hydralazine 25 mg p.o. twice daily Continue with atorvastatin 80 mg p.o. nightly Blood work overall unremarkable sodium 141 potassium 4.1 BUN 18 creatinine 0.9 White count 4.8 hemoglobin 11.9 Full code DVT prophylaxis heparin subcu 3 times daily
[2023-11-04] MEDS: IPRATROPIUM-ALBUTEROL 3 ML NEB INHALATION PRN (08:13)
[2023-11-04] MEDS: HEPARIN SODIUM,PORCINE 5,000 UNIT/ML 1 ML VIAL SQ SCH (09:34)
[2023-11-04] MEDS: ASPIRIN 81 MG PO SCH (09:34)
[2023-11-04] MEDS: METOPROLOL TARTRATE 50 MG TAB PO SCH (09:35)
[2023-11-04] MEDS: LOSARTAN 50 MG TAB PO SCH (09:35)
[2023-11-04] MEDS: CLOPIDOGREL 75 MG TAB PO SCH (09:35)
[2023-11-04] MEDS: hydrALAZINE HCL 25 MG TAB PO SCH (09:35)
[2023-11-04] MEDS: FUROSEMIDE 10 MG/ML 4 ML VIAL IV SCH (09:35)
--- NOTE | 2023-11-04 11:21 | P.CRDCN ---
History of Present Illness History of present illness: HISTORY OF PRESENT ILLNESS: This is a 68-year-old female with a past medical history significant for peripheral vascular disease, coronary artery disease with previous stenting, hypertension, hyperlipidemia, COPD, and nicotine dependence. Patient follows in the office with Dr. Wolfe. We have been asked to see the patient in consultation for congestive heart failure. Patient examined at the bedside. Patient states that she recently presented to [facility] secondary to right lower extremity swelling. She states that she was diagnosed with cellulitis and was sent home with pain medication and antibiotics. She states that her swelling returned so she presented to [facility] for further evaluation. The patient denies any chest pain or pressure. She does report mild shortness of breath at the time of examination. The patient was started on IV Lasix. Vital signs are stable. DIAGNOSTICS: - EKG reveals sinus mechanism with no signs of acute ischemia. - Chest xray findings are consistent with CHF exacerbation/fluid overload state -Venous Doppler: Negative for DVT of right lower extremity. - Laboratory data: WBC 4.8. Hemoglobin 11.9. Platelet count 160. Sodium 141. Potassium 4.1. BUN 18. Creatinine 0.96. Magnesium 1.7. Troponin negative x 1. proBNP 23,500 - Current home cardiac medications include aspirin 325 mg daily, Lipitor 80 mg daily, chlorthalidone 25 mg daily, metoprolol tartrate 25 mg twice a day, and lisinopril 5 mg daily. - Most recent echocardiogram obtained in 2018 revealing ejection fraction 55 to 60%, mild MR, mild TR - Cardiac catheterization history: 2017 with stenting of the first OM REVIEW OF SYSTEMS: At the time of my exam: CONSTITUTIONAL: Denies fever or chills. HEENT: Denies blurred vision, vision changes, or eye pain. Denies hemoptysis CARDIOVASCULAR: Denies chest pain. Denies orthopnea. Denies PND. Denies palpitations RESPIRATORY: Denies shortness of breath. GASTROINTESTINAL: Denies abdominal pain. Denies nausea or vomiting. HEMATOLOGIC: Denies bleeding disorders. GENITOURINARY: Denies any blood in urine. SKIN: Denies pruitis. Denies rash. PHYSICAL EXAM: VITAL SIGNS: Reviewed. GENERAL: Well-developed in no acute distress. HEENT: Head is normocephalic. Pupils are equal, round. Sclerae anicteric. Mucous membranes of the mouth are moist. Neck supple. No JVD or thyromegaly LUNGS: Respirations even and unlabored. Lungs essentially clear to auscultation bilaterally. HEART: Regular rate and rhythm. S1 and S2 heard. ABDOMEN: Soft. Nondistended. Nontender. EXTREMITIES: Normal range of motion. No clubbing or cyanosis. Peripheral pulses intact. 1+ right lower extremity edema NEUROLOGIC: Awake and alert. Oriented x 3. ASSESSMENT: Shortness of breath and right lower extremity swelling Acute on chronic heart failure with preserved EF, 55 to 60% in 2018, repeat echo pending Coronary artery disease with previous stenting Peripheral vascular disease Hypertension Hyperlipidemia COPD Nicotine dependence PLAN: Obtain 2D echo to assess cardiac structure and function Continue IV diuretics for an additional 24 hours Daily weights, accurate intake and output, and monitoring of kidney function Resume home cardiac medications Further recommendations pending patient course Nurse practitioner note has been reviewed by physician. Signing provider agrees with the documented findings, assessment, and plan of care documented by PILOT CAPTAIN as a scribe. Past Medical History Past Medical History: Coronary Artery Disease (CAD), CVA/TIA, GERD/Reflux, Hyperlipidemia, Hypertension, Myocardial Infarction (AL), Osteoarthritis (OA), Skin Disorder Additional Past Medical History / Comment(s): hx migraines, TIA- FRACTURED RIGHT ANKLE 1/2 CAST Last Myocardial Infarction Date:: History of Any Multi-Drug Resistant Organisms: MRSA Date of last positivie culture/infection: 02/21/18 MDRO Source:: NECK Past Surgical History: Heart Catheterization With Stent, Orthopedic Surgery, Tubal Ligation Additional Past Surgical History / Comment(s): left ankle surgery fracture- pins and plate inserted. 2 cardiac stents, neck surgery Past Anesthesia/Blood Transfusion Reactions: No Reported Reaction Date of Last Stent Placement:: 09/2016 Past Psychological History: No Psychological Hx Reported Smoking Status: Current every day smoker Past Alcohol Use History: Occasional Past Drug Use History: None Reported - Past Family History Mother Family Medical History: Hypertension, Myocardial Infarction (AL) Sister(s) Family Medical History: CVA/TIA, Hypertension, Myocardial Infarction (AL) Father Family Medical History: Cancer Additional Family Medical History / Comment(s): colon CA Brother(s) Family Medical History: Coronary Artery Disease (CAD), CVA/TIA Additional Family Medical History / Comment(s): CABG Medications and Allergies Home Medications Medication Instructions Recorded Confirmed Type Aspirin 325 mg PO DAILY 07/22/14 11/04/23 History Atorvastatin [Lipitor] 80 mg PO DIRECTED 11/04/23 11/04/23 History Chlorthalidone [Hygroton] 25 mg PO DIRECTED 11/04/23 11/04/23 History Meloxicam [Mobic] 15 mg PO DIRECTED 11/04/23 11/04/23 History Metoprolol Tartrate [Lopressor] 25 mg PO DIRECTED 11/04/23 11/04/23 History lisinopriL [Zestril] 5 mg PO DIRECTED 11/04/23 11/04/23 History Allergies Allergy/AdvReac Type Severity Reaction Status Date / Time No Known Allergies Allergy Verified 11/04/23 07:17 Physical Exam Vitals: Vital Signs Temp Pulse Resp BP Pulse Ox 11/04/23 08:13 80 11/04/23 06:19 76 18 166/92 11/04/23 02:30 88 18 174/90 94 L 11/04/23 01:00 98 22 189/99 95 11/03/23 23:48 98.7 F 111 H 20 185/81 97 Intake and Output 11/03/23 11/04/23 11/04/23 22:59 06:59 14:59 Other: Weight 64.864 kg Results 11/04/23 00:46 11/04/23 00:46 Cardiac Enzymes 11/04/23 11/04/23 Range/Units 00:46 00:46 AST 26 (14-36) U/L Troponin I 0.019 (0.000-0.034) ng/mL Coagulation 11/04/23 Range/Units 00:46 PT 12.1 (10.0-12.5) sec APTT 22.9 (22.0-30.0) sec CBC 11/04/23 Range/Units 00:46 WBC 4.8 (3.8-10.6) k/uL RBC 3.93 (3.80-5.40) m/uL Hgb 11.9 (11.4-16.0) gm/dL Hct 38.1 (34.0-46.0) % Plt Count 160 (150-450) k/uL Comprehensive Metabolic Panel 11/04/23 Range/Units 00:46 Sodium 141 (137-145) mmol/L Potassium 4.1 (3.5-5.1) mmol/L Chloride 111 H (98-107) mmol/L Carbon Dioxide 23 (22-30) mmol/L BUN 18 H (7-17) mg/dL Creatinine 0.96 (0.52-1.04) mg/dL Glucose 110 H (74-99) mg/dL Calcium 9.0 (8.4-10.2) mg/dL AST 26 (14-36) U/L ALT 14 (4-34) U/L Alkaline Phosphatase 88 (38-126) U/L Total Protein 6.7 (6.3-8.2) g/dL Albumin 3.6 (3.5-5.0) g/dL Current Medications Generic Name Dose Route Start Last Admin Trade Name Freq PRN Reason Stop Dose Admin Hydrocodone Bitart/Acetaminophen 1 each 11/04/23 04:58 Hydrocodone/Apap 5-325mg 1 Each Tab PO BID PRN Pain Albuterol/Ipratropium 3 ml 11/04/23 05:07 11/04/23 08:13 Ipratropium-Albuterol 3 Ml Neb INHALATION 3 ml RT-QID PRN Administration Shortness Of Breath Or Wheezing Aspirin 81 mg 11/04/23 09:00 Aspirin 81 Mg PO DAILY [facility] Atorvastatin Calcium 80 mg 11/04/23 21:00 Atorvastatin 80 Mg Tab PO HS [facility] Clopidogrel Bisulfate 75 mg 11/04/23 09:00 Clopidogrel 75 Mg Tab PO DAILY [facility] Furosemide 40 mg 11/04/23 09:00 Furosemide 10 Mg/Ml 4 Ml Vial IV Q12HR [facility] Heparin Sodium (Porcine) 5,000 unit 11/04/23 08:00 Heparin Sodium,Porcine 5,000 Unit/Ml 1 Ml Vial SQ Q8HR [facility] Hydralazine HCl 25 mg 11/04/23 09:00 Hydralazine Hcl 25 Mg Tab PO BID [facility] Losartan Potassium 100 mg 11/04/23 09:00 Losartan 50 Mg Tab PO DAILY [facility] Metoprolol Tartrate 50 mg 11/04/23 09:00 Metoprolol Tartrate 50 Mg Tab PO BID [facility] Naloxone HCl 0.2 mg 11/04/23 01:41 Naloxone 0.4 Mg/Ml 1 Ml Vial IV Q2M PRN Opioid Reversal Intake and Output 11/03/23 11/04/23 11/04/23 22:59 06:59 14:59 Other: Weight 64.864 kg 11/04/23 00:46 11/04/23 00:46
[2023-11-04] MEDS: ATORVASTATIN 80 MG TAB PO SCH (20:27)
[2023-11-05 09:06] LABS: Blood Urea Nitrogen 17.6 mg/dL (9.0-27.0); Calcium 8.6 mg/dL (8.7-10.3); Carbon Dioxide 26.7 mmol/L (21.6-31.8); Chloride 104 mmol/L (96-109); Glucose 98 mg/dL (70-110); Potassium 3.3 mmol/L (3.5-5.5); Sodium 143 mmol/L (135-145)
[2023-11-05] MEDS: POTASSIUM CHLORIDE ER 20 MEQ TAB.ER PO STA (10:01)
--- NOTE | 2023-11-05 10:03 | CA ---
Transthoracic Echo Report Name: Ni Seay Age: 68 Gender: F : 1955 Exam Date: 11/05/2023 08:21 Exam Location: [facility] Ht (in): 60 Wt (lb): 143 Ordering Physician: Patricia Cam MD Attending/Referring Phys: [id number], Dorina Er Nurse Agustina Arrington, [facility] Procedure CPT: Indications: chf exacerbation Cardiac Hx: Technical Quality: Technically difficult study Contrast 1: Definity Total Dose (mL): 2 Contrast 2: Total Dose (mL): MEASUREMENTS (Male / Female) Normal Values 2D ECHO LV Diastolic Diameter PLAX 5.6 cm 4.2 - 5.9 / 3.9 - 5.3 cm LV Systolic Diameter PLAX 5.0 cm IVS Diastolic Thickness 1.4 cm 0.6 - 1.0 / 0.6 - 0.9 cm LVPW Diastolic Thickness 1.4 cm 0.6 - 1.0 / 0.6 - 0.9 cm LV Relative Wall Thickness 0.5 RV Internal Dim ED PLAX 3.5 cm LVOT Diameter 2.0 cm LA Systolic Diameter LX 4.6 cm 3.0 - 4.0 / 2.7 - 3.8 cm LA Volume 87.2 cm??? 18 - 58 / 22 - 52 cm??? LA Volume Index 52.0 cm???/m??? 16 - 28 cm???/m??? M-MODE Aortic Root Diameter MM 2.8 cm MV E Point Septal Separation 1.8 cm AV Cusp Separation MM 1.8 cm DOPPLER AV Peak Velocity 153.7 cm/s AV Peak Gradient 9.4 mmHg MV Area PHT 4.2 cm??? Mitral E Point Velocity 107.9 cm/s Mitral A Point Velocity 35.1 cm/s Mitral E to A Ratio 3.1 MV Deceleration Time 181.1 ms TR Peak Velocity 304.2 cm/s TR Peak Gradient 37.0 mmHg Right Ventricular Systolic Press 41.6 mmHg FINDINGS Left Ventricle Left ventricular ejection fraction is estimated at 30-35 %. Moderately increased septal wall thickness. Moderately increased posterior wall thickness. Mildly increased left ventricular diastolic diameter. Moderately reduced global left ventricular systolic function. Right Ventricle Mild right ventricular dilatation. Mild pulmonary hypertension. Right Atrium Mild right atrial dilatation. Left Atrium Moderately increased left atrial diameter. Severely increased left atrial volume. Mildly increased left atrial area. Mitral Valve Mitral valve thickened. Mild mitral annular calcification. Mild mitral regurgitation. Aortic Valve Trileaflet aortic valve. Thickened aortic valve without stenosis. Tricuspid Valve Structurally normal tricuspid valve. Mild tricuspid regurgitation. Pulmonic Valve Structurally normal pulmonic valve. No pulmonic regurgitation. Pericardium Small pericardial effusion. Pleural effusion. Aorta Normal size aortic root and proximal ascending aorta. CONCLUSIONS Moderate to severe LV systolic dysfunction with an ejection fraction of 30-35% Left atrial enlargement Mild pulmonary hypertension Mild mitral and tricuspid regurgitation Previewed by: Dr. Shreyas Mcadams MD (Electronically Signed) Final Date: 05 November 2023 10:02
[2023-11-05] MEDS ORDERED: ALPRAZolam 0.5 MG TAB PO PRN (12:42)
[2023-11-05] MEDS ORDERED: ALPRAZolam 0.25 MG TAB PO PRN (12:42)
[2023-11-05] MEDS ORDERED: NITROGLYCERIN SL TABS 0.4 MG TAB SUBLINGUAL PRN (12:42)
--- NOTE | 2023-11-05 12:42 | P.PN ---
Subjective HISTORY OF PRESENT ILLNESS: This is a 68-year-old female with a past medical history significant for peripheral vascular disease, coronary artery disease with previous stenting, hypertension, hyperlipidemia, COPD, and nicotine dependence. Patient follows in the office with Dr. Wolfe but has not been seen since 2018. We have been asked to see the patient in consultation for congestive heart failure. Patient examined at the bedside. Patient states that she recently presented to [facility] secondary to right lower extremity swelling. She states that she was diagnosed with cellulitis and was sent home with pain medication and antibiotics. She states that her swelling returned so she presented to [facility] for further evaluation. The patient denies any chest pain or pressure. She does report mild shortness of breath at the time of examination. The patient was started on IV Lasix. Vital signs are stable. DIAGNOSTICS: - EKG reveals sinus mechanism with no signs of acute ischemia. - Chest xray findings are consistent with CHF exacerbation/fluid overload state -Venous Doppler: Negative for DVT of right lower extremity. - Laboratory data: WBC 4.8. Hemoglobin 11.9. Platelet count 160. Sodium 141. Potassium 4.1. BUN 18. Creatinine 0.96. Magnesium 1.7. Troponin negative x 1. proBNP 23,500 - Current home cardiac medications include aspirin 325 mg daily, Lipitor 80 mg daily, chlorthalidone 25 mg daily, metoprolol tartrate 25 mg twice a day, and lisinopril 5 mg daily. - Most recent echocardiogram obtained in 2018 revealing ejection fraction 55 to 60%, mild MR, mild TR - Cardiac catheterization history: 2017 with stenting of the first OM 11/05/2023 Patient examined this morning at the bedside. Patient denies any chest pain or pressure. She currently denies any shortness of breath. She reports improvement in her right lower extremity edema. She remains on IV Lasix. Vital signs are stable. Echocardiogram completed revealing EF EF 30 to 35%, mild pulm hypertension, mild mitral and tricuspid regurgitation PHYSICAL EXAM: VITAL SIGNS: Reviewed. GENERAL: Well-developed in no acute distress. HEENT: Head is normocephalic. Pupils are equal, round. Sclerae anicteric. Mucous membranes of the mouth are moist. Neck supple. No JVD or thyromegaly LUNGS: Respirations even and unlabored. Lungs essentially clear to auscultation bilaterally. HEART: Regular rate and rhythm. S1 and S2 heard. ABDOMEN: Soft. Nondistended. Nontender. EXTREMITIES: Normal range of motion. No clubbing or cyanosis. Peripheral pulses intact. 1+ right lower extremity edema NEUROLOGIC: Awake and alert. Oriented x 3. ASSESSMENT: Shortness of breath and right lower extremity swelling Acute on chronic heart failure with reduced EF, 30 to 35% New onset cardiomyopathy, ischemic versus nonischemic Coronary artery disease with previous stenting Peripheral vascular disease Hypertension Hyperlipidemia COPD Nicotine dependence PLAN: Continue current cardiac medications Discontinue IV Lasix. Begin oral Lasix 40 mg daily Will schedule patient for cardiac cath tomorrow with Dr. Mcadams due to new onset cardiomyopathy Further recommendations pending patient course Nurse practitioner note has been reviewed by physician. Signing provider agrees with the documented findings, assessment, and plan of care documented by MANAGER GARAGE as a scribe. Objective - Vital Signs Vital signs: Vital Signs Temp 97.7 F 11/05/23 07:00 Pulse 64 11/05/23 08:33 Resp 16 11/05/23 07:00 BP 112/70 11/05/23 07:00 Pulse Ox 98 11/05/23 07:00 FiO2 Intake & Output 11/04/23 11/05/23 11/05/23 18:59 06:59 18:59 Intake Total 222 100 Output Total 800 700 Balance -578 -600 Weight 64.864 kg 62.823 kg Intake: Oral 222 100 Output: Urine 800 700 Other: Voiding Method External Catheter # Voids 3 - Labs CBC & Chem 7: 11/04/23 00:46 11/05/23 05:40 Labs: Abnormal Lab Results - Last 24 Hours (Table) 11/05/23 Range/Units 05:40 Potassium 3.3 L (3.5-5.5) mmol/L Anion Gap 12.30 H (4.00-12.00) mmol/L Est GFR (CKD-EPI) 54 L (>=60) Calcium 8.6 L (8.7-10.3) mg/dL
--- NOTE | 2023-11-05 17:35 | P.PN ---
Subjective Progress Note Date: 11/05/23 Hospital course: Patient is a pleasant 68-year-old female with a past medical history of CAD, CHF, COPD, hypertension, and hyperlipidemia. She presented to the emergency department on 11/03/2023 secondary to bilateral lower extremity edema and shortness of breath. Upon arrival to our facility, patient underwent full evaluation. Vital signs upon arrival show blood pressure 185/81, heart rate 111, respiratory rate 20, temp 98.7 F, and SpO2 of 97% on room air. EKG was completed showing sinus tachycardia at 100 bpm with T wave inversion in lateral leads I and aVL. Chest x-ray completed showing mild to moderate central vascular congestion consistent with CHF. Right lower extremity Doppler completed negative for DVT. CT chest/abdomen/pelvis completed showing bilateral pleural effusions right greater than left with moderate diffuse subcutaneous edema consistent with fluid overload, fatty infiltrated hepatocellular disease with mild. Cholecystic edema possibly secondary to liver disease, and moderate to severe diffuse atherosclerotic changes of aorta extending into branch vessels. Patient was free from abdominal pain/discomfort showing no signs/symptoms of acute cholecystitis. Labs were completed and reviewed. CBC unremarkable. Coagulation profile normal findings. BMP revealing mild hyperchloremia with chloride of 111 and slightly elevated BUN of 18. Glucose 110. Liver profile unremarkable. Troponin was 0.019 and proBNP was 23,500. She was admitted under services with consultation to cardiology. Echocardiogram was completed revealing a reduced EF of 30 to 35% with mild pulmonary hypertension and mild mitral and tricuspid regurgitation. Physical exam: Vital signs reviewed and stable. General: Nontoxic, no distress and appears stated age. Derm: Skin warm and dry, normal coloration for ethnicity. Head: Atraumatic, normocephalic and symmetric. Eyes: EOMs intact, no lid lag, and anicteric sclera Mouth: no lip lesions, mucus membranes moist Cardiovascular: regular rate and rhythm with normal S1S2, systolic murmur, positive posterior tibial pulses bilaterally, and cap refill < 2 seconds. Lungs: Respirations even, regular, and labored. Lungs diminished with bibasilar crackles. No accessory muscle usage. Abdominal: soft, nontender to palpation, no guarding, no appreciable organomegaly Ext: ROM intact. No gross muscle atrophy, bilateral lower extremity edema right greater than left, no contractures Neuro: Speech clear, face symmetrical and CN II-XII grossly intact with no noted focal neuro deficits Psych: Alert and oriented to person, place, time, and situation. Appropriate and pleasant affect. Assessment and Plan of Care: Acute systolic CHF exacerbation New onset cardiomyopathy, unclear if ischemic versus nonischemic History of CAD with stenting Hypertension Hyperlipidemia -Cardiology following, planning to take patient for cardiac cath tomorrow morning. -Echocardiogram was completed revealing a reduced EF of 30 to 35% with mild pulmonary hypertension and mild mitral and tricuspid regurgitation. -Telemetry monitoring -ProBNP elevated at 23,500 and troponin 0.019. -Continue Daily weights -Close monitoring of I's and O's -Cardiac diet, NPO at midnight -Lasix 40 mg daily -Continue aspirin 81 mg daily, atorvastatin 80 mg nightly, Plavix 75 mg daily, hydralazine 25 mg twice daily, losartan 100 mg daily, and metoprolol 50 mg twice daily. -Continued close monitoring of electrolytes and renal function. COPD with continued nicotine dependence, not in exacerbation. DuoNebs as needed for wheezing/shortness of breath. Recommend smoking cessation. Data and imaging reviewed: -Echocardiogram was completed revealing a reduced EF of 30 to 35% with mild pulmonary hypertension and mild mitral and tricuspid regurgitation. -Morning labs completed and reviewed. BMP revealing mild hypokalemia with potassium of 3.3, was replaced with 40 mEq K-Dur. -Vital signs reviewed. Blood pressure 112/70, heart rate 85, respiratory rate 16, temp 97.7 F, and SpO2 of 98% on room air. CODE STATUS: Full code DVT prophylaxis: Heparin Anticipated discharge date: Clinical course to determine Anticipated discharge place: Home Patient was seen independently by Nurse Pracitioner. This document was prepared using [employer] dictation software. Please allow for errors in machine operator farmworker, while rare they do occur. Noman Altamirano NP rendered care for this patient independently, reviewed the findings and plan as documented in the note above. I did not physically speak with or examine the patient on this date. Objective - Vital Signs Vital signs: Vital Signs Temp 97.7 F 11/05/23 07:00 Pulse 64 11/05/23 08:33 Resp 16 11/05/23 07:00 BP 112/70 11/05/23 07:00 Pulse Ox 98 11/05/23 07:00 FiO2 Intake & Output 11/04/23 11/05/23 11/05/23 18:59 06:59 18:59 Intake Total 222 100 Output Total 800 700 Balance -578 -600 Weight 64.864 kg 62.823 kg Intake: Oral 222 100 Output: Urine 800 700 Other: Voiding Method External Catheter # Voids 3 - Labs CBC & Chem 7: 11/04/23 00:46 11/05/23 05:40 Labs: Abnormal Lab Results - Last 24 Hours (Table) 11/05/23 Range/Units 05:40 Potassium 3.3 L (3.5-5.5) mmol/L Anion Gap 12.30 H (4.00-12.00) mmol/L Est GFR (CKD-EPI) 54 L (>=60) Calcium 8.6 L (8.7-10.3) mg/dL
[2023-11-06] MEDS: ATORVASTATIN 80 MG TAB PO ONE (05:29)
[2023-11-06] MEDS: ASPIRIN 325 MG TAB PO ONE (05:30)
[2023-11-06] MEDS: SODIUM CHLORIDE 0.9% 1,000 ML in EMPTY BAG 1 BAG IV SCH ×2 (05:30→12:19)
[2023-11-06] MEDS ORDERED: HEPARIN SODIUM,PORCINE 10,000 UNIT in SODIUM CHLORIDE 0.9% 1,000 ML IRRIGATION PRN (07:00)
[2023-11-06] MEDS ORDERED: HEPARIN SODIUM,PORCINE (1 ML) 2,500 UNIT in SODIUM CHLORIDE 0.9% 250 ML IRRIGATION PRN (07:00)
[2023-11-06] MEDS: LIDOCAINE 1% INJ 10MG/ML (20 ML MDV) SQ ONE (09:44)
[2023-11-06] MEDS: MIDAZOLAM 2 MG/2 ML VIAL IVP ONE (09:46)
[2023-11-06] MEDS: fentaNYL (PF) 50 MCG/1 ML VIAL IVP ONE ×2 (09:46→10:25)
[2023-11-06] MEDS: VERAPAMIL SYRINGE (5 MG/10 ML) INTRAARTER ONE (09:47)
[2023-11-06] MEDS: HEPARIN SODIUM 1,000 UN/ML (10ML VL) IVP ONE ×2 (10:05→10:54)
[2023-11-06] MEDS: TICAGRELOR 90 MG TAB PO ONE (10:20)
[2023-11-06] MEDS ORDERED: MAG HYDROX/AL HYDROX/SIMETH 30 ML CUP PO PRN (11:12)
[2023-11-06] MEDS ORDERED: ZOLPIDEM 5 MG TAB PO PRN (11:12)
[2023-11-06] MEDS ORDERED: RX INFO: IV CONTRAST WAS GIVEN 1 EACH MISC MISCELLANE PRN (11:12)
[2023-11-06] MEDS ORDERED: ATROPINE SULFATE 0.1 MG/ML 10ML SYRINGE IV PRN (11:12)
[2023-11-06] MEDS ORDERED: NITROGLYCERIN SL TABS 0.4 MG TAB SUBLINGUAL PRN (11:12)
[2023-11-06] MEDS: IOPAMIDOL-370 100ML BTL INTRATHECA ONE ×2 (11:13)
[2023-11-06] MEDS: SODIUM CHLORIDE 0.9% 1,000 ML IV ONE (11:21)
--- NOTE | 2023-11-06 11:23 | CC ---
CARDIAC CATHETERIZATION REPORT INDICATION: This is a 68-year-old lady, who presented to hospital with new onset congestive heart failure and was found to have ischemic cardiomyopathy on an echocardiogram. She has known history of CAD and prior angioplasty of the OM branch. The patient had been explained of risks, benefits, and alternatives understood and accepted. PROCEDURE NOTE: After obtaining informed consent, left heart catheterization and coronary angiogram performed via the right radial artery using standard Douglas catheters. The patient tolerated the procedure well without any obvious immediate complications. Total sedation time was 20 minutes. Right radial artery access was obtained using Seldinger technique. A 6-Mongolian sheath was placed. Catheters and wires were floated into the ascending aorta under fluoroscopic guidance. She received verapamil and heparin per protocol. FINDINGS: 1. Hemodynamics: Left ventricular end-diastolic pressure 18 to 20 mm. There is no significant gradient across the aortic valve. 2. Left ventriculogram: Left ventriculogram is not performed. 3. Angiographic data: a.Right coronary artery: Right coronary artery is a small caliber nondominant vessel that shows mild diffuse nonobstructive disease. Left main coronary artery appears calcified, but is free of significant stenosis, divides into left anterior descending coronary artery and circumflex coronary artery. LAD shows a focal 80% stenosis in its midportion. Circumflex coronary artery was previously stented and the stented segment appears patent. CONCLUSION: 1. 80% focal stenosis involving mid LAD. 2. Patent stent within the circumflex coronary artery. 3. Mild nonobstructive disease involving a small caliber nondominant vessel. PLAN: I reviewed angiographic data with Dr. Wolfe, the caramel cutter hand, who performed prior angioplasty and he will attempt angioplasty of the LAD. We will treat her with aggressive medical therapy and reassess her LV function either with a stress test or an echocardiogram down the road. MMODL / IJN: [id number] /
[2023-11-06 11:27] LABS: HCT 37.7 % (37.2-46.3); HGB 11.4 g/dL (12.0-15.0); MCH 29.5 pg (27.0-32.0); MCHC 30.2 g/dL (32.0-37.0); MCV 97.4 FL (80.0-97.0); Mean Platelet Volume 10.5 FL (9.5-12.2); NRBC Per 100 WBC 0 X 10*3/uL (0.00-0.01); Platelet Count 172 X 10*3/uL (140-440); RBC 3.87 X 10*6/uL (4.10-5.20); WBC 5.01 X 10*3/uL (4.50-10.00)
[2023-11-06 12:01] LABS: ALT 17 U/L (8-44); AST 36 U/L (13-35); Albumin 3.6 g/dL (3.8-4.9); Albumin/Globulin Ratio 1.38 Ratio (1.60-3.17); Alkaline Phosphatase 79 U/L (41-126); BUN/Creat Ratio 17.08 Ratio (12.00-20.00); Blood Urea Nitrogen 20.5 mg/dL (9.0-27.0); Calcium 8.8 mg/dL (8.7-10.3); Carbon Dioxide 26.1 mmol/L (21.6-31.8); Chloride 106 mmol/L (96-109); Globulin 2.6 g/dL (1.6-3.3); Glucose 94 mg/dL (70-110); Magnesium 1.7 mg/dL (1.5-2.4); Potassium 3.6 mmol/L (3.5-5.5); Sodium 143 mmol/L (135-145); Total Bilirubin 0.6 mg/dL (0.3-1.2); Total Protein 6.2 g/dL (6.2-8.2)
[2023-11-06] MEDS: FUROSEMIDE 40 MG TAB PO SCH (12:23)
--- NOTE | 2023-11-06 12:40 | PTCA ---
PERCUTANEOUSTRANS CORORONARY ANGIOGRAPHY PROCEDURES PERFORMED: Successful stenting of the mid left anterior descending artery using 3.25 x 23 mm Xience drug-eluting stent with adjunctive use of intravascular imaging and lithotripsy balloon. INDICATIONS: This is a 68-year-old female patient who was admitted to the hospital with chest discomfort and underwent a heart catheterization by Dr. Mcadams and was found to have critical disease involving the left anterior descending artery. She is known to have coronary artery disease with prior stenting of the left circumflex. APPROACH: Right radial artery. COMPLICATIONS: None. LEVEL OF SEDATION: Moderate, with sedation length of 58 minutes. PROCEDURE DESCRIPTION: Please refer to the diagnostic heart catheterization that was performed by Dr. Mcadams earlier today. Anticoagulation was initiated using heparin with continuous ACT monitoring. Subsequently, the left main was engaged using JL3.5 guiding catheter. Subsequently, I did wire the LAD using a run-through wire. Predilatation history and advancing intravascular imaging was challenging and I was able to get the catheter only to the proximal LAD, which showed a diameter around 3 to 3.5 mm. Predilatation initially was performed using 3 mm noncompliant balloon, but the balloon was not giving up and there was a dog-bone on the balloon. At that point, I decided to go with a smaller balloon and higher pressure and that was 2.5 mm balloon under 18 atmospheres. The balloon also will not give up and at that point, I decided to do lithotripsy balloon. I did balloon angioplasty using shockwave balloon and that was 3.5 x 12 mm balloon and in spite of that I was able to open the lesion 40 and at that point I did chocolate balloon and that was initially 3.0 and then 3.5. After that, I decided to move forward with a stent, so I deployed 3.25 x 23 mm stent where the stent was positioned under fluoroscopic guidance and deployed under fluoroscopic guidance. Postdilatation was initially performed using 3.5 mm x 15 and then 3.5 mm x 8 mm balloon. Both balloons were noncompliant. Final angiogram showed good angiographic results and the procedure was completed with no complication. POSTPROCEDURE MANAGEMENT: 1. Dual anti-platelet therapy. 2. Aggressive cholesterol control. 3. Risk factor modifications. 4. Follow up with the patient. MMODL / IJN: [id number] /
[2023-11-06] MEDS: HYDROcodone/APAP 5-325MG 1 EACH TAB PO PRN (13:27)
[2023-11-06] MEDS: ONDANSETRON 4 MG/2 ML VIAL IVP PRN (13:54)
--- NOTE | 2023-11-06 16:03 | P.PN ---
Subjective Progress Note Date: 11/06/23 Hospital course: Patient is a pleasant 68-year-old female with a past medical history of CAD, CHF, COPD, hypertension, and hyperlipidemia. She presented to the emergency department on 11/03/2023 secondary to bilateral lower extremity edema and shortness of breath. Upon arrival to our facility, patient underwent full evaluation. Vital signs upon arrival show blood pressure 185/81, heart rate 111, respiratory rate 20, temp 98.7 F, and SpO2 of 97% on room air. EKG was completed showing sinus tachycardia at 100 bpm with T wave inversion in lateral leads I and aVL. Chest x-ray completed showing mild to moderate central vascular congestion consistent with CHF. Right lower extremity Doppler completed negative for DVT. CT chest/abdomen/pelvis completed showing bilateral pleural effusions right greater than left with moderate diffuse subcutaneous edema consistent with fluid overload, fatty infiltrated hepatocellular disease with mild. Cholecystic edema possibly secondary to liver disease, and moderate to severe diffuse atherosclerotic changes of aorta extending into branch vessels. Patient was free from abdominal pain/discomfort showing no signs/symptoms of acute cholecystitis. Labs were completed and reviewed. CBC unremarkable. Coagulation profile normal findings. BMP revealing mild hyperchloremia with chloride of 111 and slightly elevated BUN of 18. Glucose 110. Liver profile unremarkable. Troponin was 0.019 and proBNP was 23,500. She was admitted under services with consultation to cardiology. Echocardiogram was completed revealing a reduced EF of 30 to 35% with mild pulmonary hypertension and mild mitral and tricuspid regurgitation. Patient was taken for cardiac cath resulting in successful stenting of LAD. Subjective: Patient seen and fully evaluated upon return from cardiac cath. She is currently free from any Pain or complaints at this time. Reports was feeling some throbbing in her right hand from TR band but since a little air was removed she is currently feeling much better. She denies having any headache, lightheadedness, dizziness, chest pain, palpitations, or shortness of breath at this time. Physical exam: Vital signs reviewed and stable. General: Nontoxic, no distress and appears stated age. Derm: Skin warm and dry, normal coloration for ethnicity. Head: Atraumatic, normocephalic and symmetric. Eyes: EOMs intact, no lid lag, and anicteric sclera Mouth: no lip lesions, mucus membranes moist Cardiovascular: regular rate and rhythm with normal S1S2, systolic murmur, positive posterior tibial pulses bilaterally, and cap refill < 2 seconds. Lungs: Respirations even, regular, and labored. Lungs diminished with bibasilar crackles. No accessory muscle usage. Abdominal: soft, nontender to palpation, no guarding, no appreciable organomegaly Ext: ROM intact. No gross muscle atrophy, bilateral lower extremity edema right greater than left, no contractures Neuro: Speech clear, face symmetrical and CN II-XII grossly intact with no noted focal neuro deficits Psych: Alert and oriented to person, place, time, and situation. Appropriate and pleasant affect. Assessment and Plan of Care: Acute systolic CHF exacerbation New onset cardiomyopathy, unclear if ischemic versus nonischemic History of CAD with stenting Hypertension Hyperlipidemia -Cardiology following, took patient for cardiac cath this morning resulting in successful stenting of LAD -Echocardiogram was completed revealing a reduced EF of 30 to 35% with mild pulmonary hypertension and mild mitral and tricuspid regurgitation. -Telemetry monitoring -ProBNP elevated at 23,500 and troponin 0.019. -Continue Daily weights -Close monitoring of I's and O's -Cardiac diet, NPO at midnight -Lasix 40 mg daily -Continue aspirin 81 mg daily, atorvastatin 80 mg nightly, Plavix 75 mg daily, hydralazine 25 mg twice daily, losartan 100 mg daily, and metoprolol 50 mg twice daily. -Continued close monitoring of electrolytes and renal function. COPD with continued nicotine dependence, not in exacerbation. DuoNebs as needed for wheezing/shortness of breath. Recommend smoking cessation. Data and imaging reviewed: -Echocardiogram was completed revealing a reduced EF of 30 to 35% with mild pulmonary hypertension and mild mitral and tricuspid regurgitation. -Cardiac catheterization was completed, reviewed operative report stating successful stenting to LAD. -Vital signs reviewed. Blood pressure 112/70, heart rate 85, respiratory rate 16, temp 97.7 F, and SpO2 of 98% on room air. -Morning labs reviewed. CBC showing mild anemia with hemoglobin stable at 11.4. BMP unremarkable. Magnesium was slightly low at 1.7 and to be replaced. Liver profile showing slightly elevated AST of 36 otherwise normal findings. CODE STATUS: Full code DVT prophylaxis: Heparin Anticipated discharge date: Clinical course to determine Anticipated discharge place: Home Patient was seen independently by Nurse Pracitioner. This document was prepared using [employer] dictation software. Please allow for errors in roof fitter, while rare they do occur. Objective - Vital Signs Vital signs: Vital Signs Temp 98.3 F 11/06/23 02:00 Pulse 62 11/06/23 08:06 Resp 17 11/06/23 02:00 BP 128/64 11/06/23 02:00 Pulse Ox 100 11/06/23 02:00 FiO2 Intake & Output 11/05/23 11/06/23 11/06/23 18:59 06:59 18:59 Intake Total 118 0 Output Total 500 Balance -382 0 Weight 60.3 kg Intake: Oral 118 0 Output: Urine 500 Other: Voiding Method External Catheter Toilet # Voids 1 - Labs CBC & Chem 7: 11/06/23 06:19 11/06/23 06:19 Labs: Abnormal Lab Results - Last 24 Hours (Table) 11/05/23 Range/Units 05:40 Potassium 3.3 L (3.5-5.5) mmol/L Anion Gap 12.30 H (4.00-12.00) mmol/L Est GFR (CKD-EPI) 54 L (>=60) Calcium 8.6 L (8.7-10.3) mg/dL
[2023-11-06] MEDS: MAGNESIUM OXIDE 400 MG TAB PO STA (17:51)
[2023-11-06] MEDS: TICAGRELOR 90 MG TAB PO SCH (21:39)
[2023-11-07 08:04] LABS: African American GFR (CKD) 52 (>60 ml/min/1.73 sqM); Non-African American GFR(CKD) 45 (>60 ml/min/1.73 sqM)
[2023-11-07 09:28] VITALS: BP 127/61; PULSE 62; RESP 18; TEMP 98.3
--- NOTE | 2023-11-07 09:47 | P.PN ---
Subjective HISTORY OF PRESENT ILLNESS: This is a 68-year-old female with a past medical history significant for peripheral vascular disease, coronary artery disease with previous stenting, hypertension, hyperlipidemia, COPD, and nicotine dependence. Patient follows in the office with Dr. Wolfe but has not been seen since 2018. We have been asked to see the patient in consultation for congestive heart failure. Patient examined at the bedside. Patient states that she recently presented to [facility] secondary to right lower extremity swelling. She states that she was diagnosed with cellulitis and was sent home with pain medication and antibiotics. She states that her swelling returned so she presented to [facility] for further evaluation. The patient denies any chest pain or pressure. She does report mild shortness of breath at the time of examination. The patient was started on IV Lasix. Vital signs are stable. DIAGNOSTICS: - EKG reveals sinus mechanism with no signs of acute ischemia. - Chest xray findings are consistent with CHF exacerbation/fluid overload state -Venous Doppler: Negative for DVT of right lower extremity. - Laboratory data: WBC 4.8. Hemoglobin 11.9. Platelet count 160. Sodium 141. Potassium 4.1. BUN 18. Creatinine 0.96. Magnesium 1.7. Troponin negative x 1. proBNP 23,500 - Current home cardiac medications include aspirin 325 mg daily, Lipitor 80 mg daily, chlorthalidone 25 mg daily, metoprolol tartrate 25 mg twice a day, and lisinopril 5 mg daily. - Most recent echocardiogram obtained in 2018 revealing ejection fraction 55 to 60%, mild MR, mild TR - Cardiac catheterization history: 2017 with stenting of the first OM 11/05/2023 Patient examined this morning at the bedside. Patient denies any chest pain or pressure. She currently denies any shortness of breath. She reports improvement in her right lower extremity edema. She remains on IV Lasix. Vital signs are stable. Echocardiogram completed revealing EF EF 30 to 35%, mild pulm hypertension, mild mitral and tricuspid regurgitation Patient is status postcardiac catheterization by Dr. Mcadams revealing 80% focal stenosis involving mid LAD, patent stent within the circumflex coronary artery, and mild nonobstructive disease involving small caliber nondominant vessel. She underwent stenting of the mid LAD by Dr. Wolfe. Patient examined this morning the bedside. She denies any chest pain or pressure. She denies any shortness of breath. Vital signs are stable. PHYSICAL EXAM: VITAL SIGNS: Reviewed. GENERAL: Well-developed in no acute distress. HEENT: Head is normocephalic. Pupils are equal, round. Sclerae anicteric. Mucous membranes of the mouth are moist. Neck supple. No JVD or thyromegaly LUNGS: Respirations even and unlabored. Lungs essentially clear to auscultation bilaterally. HEART: Regular rate and rhythm. S1 and S2 heard. ABDOMEN: Soft. Nondistended. Nontender. EXTREMITIES: Normal range of motion. No clubbing or cyanosis. Peripheral pulses intact. Trace right lower extremity edema, at the ankle NEUROLOGIC: Awake and alert. Oriented x 3. ASSESSMENT: Shortness of breath and right lower extremity swelling Acute on chronic heart failure with reduced EF, 30 to 35% New onset cardiomyopathy, ischemic Status post cardiac catheterization with stenting to the mid LAD Coronary artery disease with previous stenting of circumflex Peripheral vascular disease Hypertension Hyperlipidemia COPD Nicotine dependence PLAN: Continue dual antiplatelet therapy with aspirin and Brilinta Continue high intensity statin Continue additional cardiac medications Patient is stable for discharge home today from a cardiac standpoint She is to follow-up outpatient with Dr. Mcadams Nurse practitioner note has been reviewed by physician. Signing provider agrees with the documented findings, assessment, and plan of care documented by SEO ANALYST as a scribe. Objective - Vital Signs Vital signs: Vital Signs Temp 98.3 F 11/07/23 07:00 Pulse 68 11/07/23 08:04 Resp 18 11/07/23 07:00 BP 127/61 11/07/23 07:00 Pulse Ox 97 11/07/23 07:00 FiO2 Intake & Output 11/06/23 11/07/23 11/07/23 18:59 06:59 18:59 Intake Total 940 Output Total 1200 Balance -260 Weight 59.1 kg Intake: IV 400 Oral 540 Output: Urine 1200 Other: Voiding Method External Catheter - Labs CBC & Chem 7: 11/06/23 06:19 11/07/23 06:26 Labs: Abnormal Lab Results - Last 24 Hours (Table) 11/06/23 11/06/23 11/07/23 Range/Units 06:19 06:19 06:26 RBC 3.87 L (4.10-5.20) X 10*6/uL Hgb 11.4 L (12.0-15.0) g/dL MCV 97.4 H (80.0-97.0) FL MCHC 30.2 L (32.0-37.0) g/dL Creatinine 1.23 H (0.52-1.04) mg/dL Est GFR (CKD-EPI) 49 L (>=60) AST 36 H (13-35) U/L Albumin 3.6 L (3.8-4.9) g/dL Albumin/Globulin Ratio 1.38 L (1.60-3.17) Ratio
--- NOTE | 2023-11-07 11:37 | P.DS ---
Providers Date of admission: 11/06/23 07:44 Expected date of discharge: 11/07/23 Attending physician: Patricia Cam MD Consults: 11/04/23 01:41 Consult Physician Routine Consulting Provider: Javier Colbert Consult Reason/Comments: CHF Do you want consulting provider notified?: Yes 11/06/23 11:12 Consult Physician Routine Consulting Provider: [facility] Consult Reason/Comments: Post Interventional patient Do you want consulting provider notified?: Already Contacted Primary care physician: Stated None Hospital Course: Discharge Diagnosis: Acute systolic CHF exacerbation New onset cardiomyopathy, likely ischemic Mid LAD stenosis status post stent History of CAD with prior stenting Hypertension Hyperlipidemia COPD, not in exacerbation Nicotine dependence Hospital Course: Patient is a pleasant 68-year-old female with a past medical history of CAD, CHF, COPD, hypertension, and hyperlipidemia. She presented to the emergency department on 11/03/2023 secondary to bilateral lower extremity edema and shortness of breath. Upon arrival to our facility, patient underwent full evaluation. Vital signs upon arrival show blood pressure 185/81, heart rate 111, respiratory rate 20, temp 98.7 F, and SpO2 of 97% on room air. EKG was completed showing sinus tachycardia at 100 bpm with T wave inversion in lateral leads I and aVL. Chest x-ray completed showing mild to moderate central vascular congestion consistent with CHF. Right lower extremity Doppler completed negative for DVT. CT chest/abdomen/pelvis completed showing bilateral pleural effusions right greater than left with moderate diffuse subcutaneous edema consistent with fluid overload, fatty infiltrated hepatocellular disease with mild. Cholecystic edema possibly secondary to liver disease, and moderate to severe diffuse atherosclerotic changes of aorta extending into branch vessels. Patient was free from abdominal pain/discomfort showing no signs/symptoms of acute cholecystitis. Labs were completed and reviewed. CBC unremarkable. Coagulation profile normal findings. BMP revealing mild hyperchloremia with chloride of 111 and slightly elevated BUN of 18. Glucose 110. Liver profile unremarkable. Troponin was 0.019 and proBNP was 23,500. She was admitted under services with consultation to cardiology. Echocardiogram was completed revealing a reduced EF of 30 to 35% with mild pulmonary hypertension and mild mitral and tricuspid regurgitation. Cardiac cath showed 80% focal stenosis involving mid LAD, patent stent within the left circumflex, mild nonobstructive disease involving small caliber nondominant vessel. Status post stent of mid LAD. Patient on aspirin and Brilinta, high intensity statin. Being discharged home with close follow-up with cardiology. Repeat BMP outpatient. Patient seen and examined at bedside. Vital signs reviewed and stable. General: Nontoxic, no distress, appears at stated age Derm: Warm, dry Head: Atraumatic, normocephalic, symmetric Eyes: EOMI, no lid lag, anicteric sclera Mouth: No lip lesion, mucus membranes moist Cardiovascular: S1S2 reg, systolic murmur Lungs: CTA bilateral, no rhonchi, no rales, no accessory muscle use Abdominal: Soft, nontender to palpation, no guarding, no appreciable organomegaly Ext: No gross muscle atrophy, no edema, no contractures Neuro: CN II-XI grossly intact, no focal neuro deficits Psych: Alert, oriented, appropriate affect A total of 33 minutes of time were spent preparing this complex discharge summary. Patient was discharged on 11/07/2023 at 1058. Patient Condition at Discharge: Stable Plan - Discharge Summary New Discharge Prescriptions: New hydrALAZINE HCL [Apresoline] 25 mg PO BID #180 tab Aspirin 81 mg PO DAILY #90 tab Ticagrelor [Brilinta] 90 mg PO BID #60 tab Losartan [Cozaar] 100 mg PO DAILY #180 tab Furosemide [Lasix] 40 mg PO DAILY #90 tab Nitroglycerin Sl Tabs [Nitrostat] 0.4 mg SUBLINGUAL Q5M PRN #100 tab PRN Reason: Chest Pain Metoprolol Tartrate [Lopressor] 50 mg PO BID #180 tab Changed Atorvastatin [Lipitor] 80 mg PO DAILY #0 Discontinued Aspirin 325 mg PO DAILY Meloxicam [Mobic] 15 mg PO DIRECTED Chlorthalidone [Hygroton] 25 mg PO DIRECTED lisinopriL [Zestril] 5 mg PO DIRECTED Metoprolol Tartrate [Lopressor] 25 mg PO DIRECTED Discharge Medication List Aspirin 81 mg PO DAILY #90 tab 11/07/23 [Rx] Atorvastatin [Lipitor] 80 mg PO DAILY #0 11/07/23 [Rx] Furosemide [Lasix] 40 mg PO DAILY #90 tab 11/07/23 [Rx] Losartan [Cozaar] 100 mg PO DAILY #180 tab 11/07/23 [Rx] Metoprolol Tartrate [Lopressor] 50 mg PO BID #180 tab 11/07/23 [Rx] Nitroglycerin Sl Tabs [Nitrostat] 0.4 mg SUBLINGUAL Q5M PRN #100 tab 11/07/23 [Rx] Ticagrelor [Brilinta] 90 mg PO BID #60 tab 11/07/23 [Rx] hydrALAZINE HCL [Apresoline] 25 mg PO BID #180 tab 11/07/23 [Rx] Follow up Appointment(s)/Referral(s): Ayan Askew MD [REFERRING] - 1 Week Shreyas Mcadams MD [STAFF PHYSICIAN] - 11/21/23 4:30 pm Patient Instructions/Handouts: Heart Failure (DC), Coronary Artery Disease (DC) Activity/Diet/Wound Care/Special Instructions: Please see cardiology and PCP. You will likely need repeat blood work to make sure your kidney function and electrolytes are in good range. Discharge/Stand Alone Forms: Who Do I Call?, Personal Field Naturalist, Area PCPs Discharge Disposition: HOME SELF-CARE
[2023-11-07 12:13] VITALS: BMI 25.4
== END 2023-11-07 13:25 | disposition home or self-care (01) | DRG 323 ==
LOC: EC 23:43 → 6NMEDSUR 11-04 01:42 → OBSVTOIN 11-06 07:44
PROVIDERS: ADMIT Internal Medicine; ATTEND Internal Medicine
PROC: 027034Z Dilation of Coronary Artery, One Artery with Drug-eluting Intraluminal Device, Percutaneous Approach (ICD-10-PCS; principal; 2023-11-06 09:30)
PROC: 02F03ZZ Fragmentation in Coronary Artery, One Artery, Percutaneous Approach (ICD-10-PCS; principal; 2023-11-06 09:30)
PROC: B2111ZZ Fluoroscopy of Multiple Coronary Arteries using Low Osmolar Contrast (ICD-10-PCS; 2023-11-06 09:30)
PROC: 4A023N7 Measurement of Cardiac Sampling and Pressure, Left Heart, Percutaneous Approach (ICD-10-PCS; 2023-11-06 09:30)
DX: I11.0 Hypertensive heart disease with heart failure (principal); I50.23 Acute on chronic systolic (congestive) heart failure; I27.20 Pulmonary hypertension, unspecified; E87.8 Other disorders of electrolyte and fluid balance, not elsewhere classified; I73.9 Peripheral vascular disease, unspecified; J44.9 Chronic obstructive pulmonary disease, unspecified; D64.9 Anemia, unspecified; E78.5 Hyperlipidemia, unspecified; I08.1 Rheumatic disorders of both mitral and tricuspid valves; I25.5 Ischemic cardiomyopathy; I25.10 Atherosclerotic heart disease of native coronary artery without angina pectoris; I25.84 Coronary atherosclerosis due to calcified coronary lesion; I25.2 Old myocardial infarction; M79.604 Pain in right leg; L98.9 Disorder of the skin and subcutaneous tissue, unspecified; M19.90 Unspecified osteoarthritis, unspecified site; K21.9 Gastro-esophageal reflux disease without esophagitis; F17.200 Nicotine dependence, unspecified, uncomplicated; Z71.6 Tobacco abuse counseling; Z79.82 Long term (current) use of aspirin; Z79.1 Long term (current) use of non-steroidal anti-inflammatories (NSAID); Z79.899 Other long term (current) drug therapy; Z95.5 Presence of coronary angioplasty implant and graft; Z86.73 Personal history of transient ischemic attack (TIA), and cerebral infarction without residual deficits; Z86.14 Personal history of Methicillin resistant Staphylococcus aureus infection; Z82.49 Family history of ischemic heart disease and other diseases of the circulatory system
CPT/HCPCS: 36415; 71046; 74177; 80048; 80053; 82565; 83735; 83880; 84484; 85025; 85027; 85610; 85730; 92972; 92978; 93005; 93306; 93458; 94640; 96374; 99285

== ENCOUNTER 2023-12-11 08:43 | Emergency (ER) | payer MEDICARE ==
--- NOTE | 2023-12-11 09:07 | ED ---
Extremity Problem HPI - General Chief complaint: Extremity Problem,Nontraumatic Stated complaint: Bilateral knee pain Time Seen by Provider: 12/11/23 08:49 Source: patient, RN notes reviewed Mode of arrival: ambulatory Limitations: no limitations - History of Present Illness Initial comments: This is a 68-year-old female who presents to the emergency department for knee pain. States that for the last 1 to 2 days she has had pain in both knees that seems to be going down the back of both legs. Denies any injuries. Pain seemed to start after she stood up. Feels like her right knee appears swollen when compared with the left. She is not taking anything for management of her pain. MD Complaint: extremity pain - Related Data Previous Rx's Medication Instructions Recorded Aspirin 81 mg PO DAILY #90 tab 11/07/23 Atorvastatin [Lipitor] 80 mg PO DAILY #0 11/07/23 Furosemide [Lasix] 40 mg PO DAILY #90 tab 11/07/23 Losartan [Cozaar] 100 mg PO DAILY #180 tab 11/07/23 Metoprolol Tartrate [Lopressor] 50 mg PO BID #180 tab 11/07/23 Nitroglycerin Sl Tabs [Nitrostat] 0.4 mg SUBLINGUAL Q5M PRN #100 tab 11/07/23 Ticagrelor [Brilinta] 90 mg PO BID #60 tab 11/07/23 hydrALAZINE HCL [Apresoline] 25 mg PO BID #180 tab 11/07/23 Diclofenac Sodium Gel [Voltaren 1% 4 gm TOPICAL QID PRN #100 gm 12/11/23 Gel] methocarbamoL [Robaxin-750] 1,500 mg PO TID PRN #30 tab 12/11/23 Allergies Allergy/AdvReac Type Severity Reaction Status Date / Time No Known Allergies Allergy Verified 11/04/23 07:17 Review of Systems ROS Statement: Those systems with pertinent positive or pertinent negative responses have been documented in the HPI. ROS Other: All systems not noted in ROS Statement are negative. Past Medical History Past Medical History: Coronary Artery Disease (CAD), CVA/TIA, GERD/Reflux, Hyperlipidemia, Hypertension, Myocardial Infarction ([place]), Osteoarthritis (OA), Skin Disorder Additional Past Medical History / Comment(s): hx migraines, TIA- FRACTURED RIGHT ANKLE 1/2 CAST Last Myocardial Infarction Date:: History of Any Multi-Drug Resistant Organisms: MRSA Date of last positivie culture/infection: 02/21/18 MDRO Source:: NECK Past Surgical History: Heart Catheterization With Stent, Orthopedic Surgery, Tubal Ligation Additional Past Surgical History / Comment(s): left ankle surgery fracture- pins and plate inserted. 2 cardiac stents, neck surgery Past Anesthesia/Blood Transfusion Reactions: No Reported Reaction Date of Last Stent Placement:: 09/2016 Past Psychological History: No Psychological Hx Reported Smoking Status: Current every day smoker Past Alcohol Use History: Occasional Past Drug Use History: None Reported - Past Family History Mother Family Medical History: Hypertension, Myocardial Infarction ([place]) Sister(s) Family Medical History: CVA/TIA, Hypertension, Myocardial Infarction ([place]) Father Family Medical History: Cancer Additional Family Medical History / Comment(s): colon CA Brother(s) Family Medical History: Coronary Artery Disease (CAD), CVA/TIA Additional Family Medical History / Comment(s): CABG General Exam Limitations: no limitations General appearance: alert, in no apparent distress Head exam: Present: atraumatic, normocephalic, normal inspection Respiratory exam: Present: normal lung sounds bilaterally. Absent: respiratory distress, wheezes, rales, rhonchi, stridor Cardiovascular Exam: Present: regular rate, normal rhythm, normal heart sounds. Absent: systolic murmur, diastolic murmur, rubs, gallop, clicks Extremities exam: Present: other (Tenderness to palpation over the bilateral patella and bilateral calves. No swelling or overlying deformities. No erythema, heat, or tenderness. 2+ DP and PT pulses.) Neurological exam: Present: alert, oriented X3, CN II-XII intact Psychiatric exam: Present: normal affect, normal mood Skin exam: Present: warm, dry, intact, normal color. Absent: rash Course Vital Signs 12/11/23 12/11/23 08:46 10:46 Temperature 98 F 97.9 F Pulse Rate 90 74 Respiratory 16 18 Rate Blood Pressure 165/88 157/75 O2 Sat by Pulse 98 97 Oximetry Medical Decision Making - Medical Decision Making This is a 68 year old female who presents to the emergency department for knee pain. Was pt. sent in by a medical professional or institution? @ -No Did you speak to anyone other than the patient for history? @ -No Did you review nursing and triage notes? @ -Yes, and I agree, it is accurate with regards to the patient's symptoms. Were old charts reviewed? @ -No Differential Diagnosis? @ -Differential Musculoskeletal: Muscular strain, contusion, ligament sprain, fracture, arthritis, septic arthritis, bursitis, cellulitis, muscle spasm, nerve compression, DVT, arterial occlusion, herpes zoster, electrolyte abnormality, tumor.... This is not meant to be in all inclusive list EKG interpreted by me (3pts min.)? @ -Not obtained X-rays interpreted by me (1pt min.)? @ -X-ray of the bilateral knees obtained. My interpretation identifies no acute fractures. CT interpreted by me (1pt min.)? @ -Not obtained U/S interpreted by me (1pt. min.)? @ -Duplex US of the bilateral knees obtained. My interpretation identifies no evidence of a DVT. What testing was considered but not performed? (CT, X-rays, U/S, labs)? Why? @ -None What meds were considered but not given? Why? @ -None Did you discuss the management of the patient with other professionals? @ -No Did you reconcile home meds? @ -No Was smoking cessation discussed for >3mins.? @ -No Was critical care preformed (if so, how long)? @ -No Were there social determinants of health that impacted care today? How? (Homelessness, low income, unemployed, alcoholism, drug addiction, t ransportation, low edu. Level, literacy, decrease access to med. care, skilled nursing, rehab)? @ -No Was there de-escalation of care discussed even if they declined? (Discuss DNR or withdrawal of care, Hospice)? @ -No What co-morbidities impacted this encounter? (DM, HTN, Smoking, COPD, CAD, Cancer, CVA, Hep., AIDS, mental health diagnosis, sleep apnea, morbid obesity)? @ -Osteoarthritis Was patient admitted / discharged? @ -Discharged. Duplex ultrasound of the bilateral lower extremities obtained revealing no evidence of a DVT. X-rays of bilateral knees obtained demonstrating tricompartmental osteoarthritis without any acute process. Findings reviewed with the patient. Pain well-controlled in the emergency department. Patient is on Brilinta and would like to limit her use of oral NSAIDs. She was given a prescription for diclofenac gel and Robaxin with dosing instructions reviewed. Advised taking this with Tylenol. Patient discharged home in stable condition and advised to follow-up with her primary care provider. Undiagnosed new problem with uncertain prognosis? @ -None Drug Therapy requiring intensive monitoring for toxicity (Heparin, Nitro, Insulin, Cardizem)? @ -None Were any procedures done? @ -None Diagnosis/symptom? @ -Bilateral knee pain Acute, or Chronic, or Acute on Chronic? @ -Acute Uncomplicated (without systemic symptoms) or Complicated (systemic symptoms)? @ -Uncomplicated Side effects of treatment? @ -None Exacerbation, Progression, or Severe Exacerbation] @ -Not applicable Poses a threat to life or bodily function? @ -No Return precautions reviewed in depth, the patient is instructed to return to the emergency department with any new, worsening, or concerning symptoms. Patient verbalized understanding. This case was discussed in detail with the attending ED physician, Dr. Hernandez. Presentation, findings, and treatment plan discussed in detail as well. - Radiology Data Radiology results: report reviewed, image reviewed Disposition Clinical Impression: Bilateral knee pain, Osteoarthritis Disposition: HOME SELF-CARE Instructions (If sedation given, give patient instructions): Osteoarthritis (ED ), Knee Pain (ED), Arthralgia (ED) Additional Instructions: Return to the emergency department with any new, worsening, or concerning symptoms. You can apply the diclofenac gel to both knees up to 4 times daily as needed for pain. You can also take Tylenol. You can take the Robaxin as 1 to 2 tablets up to 3-4 times daily. Be aware that this may make you drowsy. Contact orthopedics as listed below for a follow-up appointment. Follow up with your primary care provider in 1-2 days. Prescriptions: methocarbamoL [Robaxin-750] 1,500 mg PO TID PRN #30 tab PRN Reason: Pain Diclofenac Sodium Gel [Voltaren 1% Gel] 4 gm TOPICAL QID PRN #100 gm PRN Reason: Pain Is patient prescribed a controlled substance at d/c from ED?: No Referrals: None,Stated [Primary Care Provider] - 1-2 days Alli Asif DO [Doctor of Osteopathic Medicine] - 1-2 days Time of Disposition: 10:58
[2023-12-11] MEDS: HYDROcodone/APAP 7.5-325MG 1 EACH TAB PO ONE (09:09)
[2023-12-11] MEDS: KETOROLAC 15 MG/ML 1 ML VIAL IM STA (09:11)
[2023-12-11] MEDS: ORPHENADRINE 30 MG/ML 2 ML VIAL IM STA (09:16)
--- NOTE | 2023-12-11 09:44 | XR ---
EXAMINATION TYPE: XR knee complete bilateral DATE OF EXAM: 12/11/2023 9:39 AM CLINICAL INDICATION:Female, 68 years old with history of Pain and swelling; FORMERLY [facility] COMPARISON: None. TECHNIQUE: XR knee complete bilateral; examined in Frontal, lateral and oblique projections. FINDINGS: No evidence of any acute osseous pathology, soft tissue swelling, or joint effusion is no christina. Tricompartmental osteophyte formation involving the femoral condyles, tibial plateau and patella . Mild joint space narrowing bilaterally. Atherosclerosis of the arterial vasculature. Femoral stent graft partially visualized in the left ext remity. IMPRESSION: 1. No acute osseous pathology. 2. Mild to moderate tricompartmental osteoarthritic changes bilaterally.
--- NOTE | 2023-12-11 10:31 | US ---
EXAMINATION TYPE: US venous doppler duplex LE BI DATE OF EXAM: 12/11/2023 9:04 AM COMPARISON: right lower extremity venous doppler 10/11/23 (negative) CLINICAL INDICATION: Female, 68 years old with history of Pain and swelling; Pain bilateral knees SIDE PERFORMED: Bilateral TECHNIQUE: The lower extremity deep venous system is examined utilizing real time linear array sonog jose with graded compression, doppler sonography and color-flow sonography. VESSELS IMAGED: Common Femoral Vein Deep Femoral Vein Greater Saphenous Vein * Femoral Vein Popliteal Vein Small Saphenous Vein * Proximal Calf Veins (* superficial vessels) Right Leg: Negative for DVT Left Leg: Negative for DVT IMPRESSION: 1. Bilateral lower extremity ultrasound negative for deep venous thrombosis.
[2023-12-11] MEDS: DEXAMETHASONE SOD PHOSPHATE 10 MG/ML 1 ML VIAL IM STA (11:00)
[2023-12-11] MEDS: ACET/COD 300 MG/30 MG STARTER PACK 6 TAB BTL PO STA (11:00)
[2023-12-11 11:16] VITALS: BP 157/75; PULSE 74; RESP 18; TEMP 97.9
== END 2023-12-11 11:14 | disposition home or self-care (01) ==
LOC: EC 08:43
DX: M25.561 Pain in right knee (principal); M25.562 Pain in left knee; M79.605 Pain in left leg; M19.90 Unspecified osteoarthritis, unspecified site; F17.200 Nicotine dependence, unspecified, uncomplicated; Z95.5 Presence of coronary angioplasty implant and graft; Z86.73 Personal history of transient ischemic attack (TIA), and cerebral infarction without residual deficits
CPT/HCPCS: 99284; 96372 ×3; 73562; 93970; J1100; J2360; J1885

== ENCOUNTER 2024-01-10 22:23 | Emergency (ER) | payer MEDICARE ==
[2024-01-10 22:45] VITALS: TEMP 99.6
[2024-01-11 00:46] LABS: Anisocytosis Slight; Basophils % (A) 0 %; Eosinophils # (A) 0.1 k/uL (0-0.7); Eosinophils % (A) 1 %; HCT 36.8 % (34.0-46.0); HGB 11.1 gm/dL (11.4-16.0); Hypochromasia Marked; Lymphocytes # (A) 1.2 k/uL (1.0-4.8); Lymphocytes % (A) 20 %; MCH 29.1 pg (25.0-35.0); MCV 96.8 fL (80.0-100.0); Macrocytosis Slight; Monocytes # (A) 0.4 k/uL (0-1.0); Monocytes % (A) 6 %; Neutrophils # (A) 4.4 k/uL (1.3-7.7); Neutrophils % (A) 71 %; Platelet Count 140 k/uL (150-450); RDW 17.4 % (11.5-15.5); WBC 6.2 k/uL (3.8-10.6)
--- NOTE | 2024-01-11 01:16 | XR ---
EXAM: XR Chest, 2 Views CLINICAL HISTORY: ITS.REASON XR Reason: Chest Pain TECHNIQUE: Frontal and lateral views of the chest. COMPARISON: No relevant prior studies available. IMPRESSION: Cardiomegaly. Right pleural effusion with atelectasis. Mild pulmonary edema
--- NOTE | 2024-01-11 01:21 | US ---
EXAM: US Duplex Right Lower Extremity Veins CLINICAL HISTORY: ITS.REASON US Reason: r/o dvt TECHNIQUE: Real-time duplex ultrasound scan of the right lower extremity veins integrating B-mode two-dimensional vascular structure, Doppler spectral analysis, color flow Doppler imaging and compression. COMPARISON: No relevant prior studies available. FINDINGS: Positive for thrombus in small branch within the calf. No DVT from CFV down to the popliteal vein. IMPRESSION: Positive for thrombus in small branch within the calf. No DVT from CFV down to the popliteal vein.
[2024-01-11 01:28] LABS: ALT 15 U/L (4-34); AST 30 U/L (14-36); African American GFR (CKD) 64 (>60 ml/min/1.73 sqM); Albumin 3.6 g/dL (3.5-5.0); Alkaline Phosphatase 97 U/L (38-126); Anion Gap 7 mmol/L; Blood Urea Nitrogen 15 mg/dL (7-17); Calcium 8.8 mg/dL (8.4-10.2); Carbon Dioxide 23 mmol/L (22-30); Chloride 110 mmol/L (98-107); Glucose 114 mg/dL (74-99); Magnesium 1.8 mg/dL (1.6-2.3); Non-African American GFR(CKD) 56 (>60 ml/min/1.73 sqM); Sodium 140 mmol/L (137-145); Total Bilirubin 1.4 mg/dL (0.2-1.3); Total Protein 6.8 g/dL (6.3-8.2)
--- NOTE | 2024-01-11 01:42 | ED ---
Extremity Problem HPI - General Chief complaint: Extremity Problem,Nontraumatic Stated complaint: R Leg Swollen Time Seen by Provider: 01/10/24 23:08 Source: patient Mode of arrival: wheelchair Limitations: no limitations - History of Present Illness Initial comments: 68-year-old female with a past medical history significant for CHF presenting to the ED with complaints of pain and swelling of her right lower leg. Reports pain and swelling of her right lower leg onset a week ago. No recent injury. No fever or chills. Denies chest pain or shortness of breath. No abdominal pain. No other complaints at this time. - Related Data Previous Rx's Medication Instructions Recorded Aspirin 81 mg PO DAILY #90 tab 11/07/23 Atorvastatin [Lipitor] 80 mg PO DAILY #0 11/07/23 Furosemide [Lasix] 40 mg PO DAILY #90 tab 11/07/23 Losartan [Cozaar] 100 mg PO DAILY #180 tab 11/07/23 Metoprolol Tartrate [Lopressor] 50 mg PO BID #180 tab 11/07/23 Nitroglycerin Sl Tabs [Nitrostat] 0.4 mg SUBLINGUAL Q5M PRN #100 tab 11/07/23 Ticagrelor [Brilinta] 90 mg PO BID #60 tab 11/07/23 hydrALAZINE HCL [Apresoline] 25 mg PO BID #180 tab 11/07/23 Diclofenac Sodium Gel [Voltaren 1% 4 gm TOPICAL QID PRN #100 gm 12/11/23 Gel] methocarbamoL [Robaxin-750] 1,500 mg PO TID PRN #30 tab 12/11/23 Apixaban [Eliquis Starter Pack 0 mg PO DIRECTED 30 Days #1 01/11/24 (for VTE)] packet Apixaban [Eliquis] 0 mg PO DIRECTED #74 tablet 01/11/24 Allergies Allergy/AdvReac Type Severity Reaction Status Date / Time No Known Allergies Allergy Verified 01/10/24 22:43 Review of Systems ROS Statement: Those systems with pertinent positive or pertinent negative responses have been documented in the HPI. ROS Other: All systems not noted in ROS Statement are negative. Past Medical History Past Medical History: Coronary Artery Disease (CAD), CVA/TIA, GERD/Reflux, Hyperlipidemia, Hypertension, Myocardial Infarction ([place]), Osteoarthritis (OA), Skin Disorder Additional Past Medical History / Comment(s): hx migraines, TIA- FRACTURED RIGHT ANKLE 1/2 CAST Last Myocardial Infarction Date:: History of Any Multi-Drug Resistant Organisms: MRSA Date of last positivie culture/infection: 02/21/18 MDRO Source:: NECK Past Surgical History: Heart Catheterization With Stent, Orthopedic Surgery, Tubal Ligation Additional Past Surgical History / Comment(s): left ankle surgery fracture- pins and plate inserted. 2 cardiac stents, neck surgery Past Anesthesia/Blood Transfusion Reactions: No Reported Reaction Date of Last Stent Placement:: 09/2016 Past Psychological History: No Psychological Hx Reported Smoking Status: Current every day smoker Past Alcohol Use History: Occasional Past Drug Use History: None Reported - Past Family History Mother Family Medical History: Hypertension, Myocardial Infarction ([place]) Sister(s) Family Medical History: CVA/TIA, Hypertension, Myocardial Infarction ([place]) Father Family Medical History: Cancer Additional Family Medical History / Comment(s): colon CA Brother(s) Family Medical History: Coronary Artery Disease (CAD), CVA/TIA Additional Family Medical History / Comment(s): CABG General Exam Limitations: no limitations General appearance: alert, in no apparent distress Eye exam: Present: normal appearance Neck exam: Present: normal inspection Respiratory exam: Present: normal lung sounds bilaterally Cardiovascular Exam: Present: other (Faint crackles bilaterally.) GI/Abdominal exam: Present: soft. Absent: distended, tenderness, guarding, rebound Extremities exam: Present: other (Right lower extremity shows 1+ pitting edema. No calf tenderness to palpation. Positive Homans' sign. DP/PT pulses are palpable.) Back exam: Present: normal inspection Neurological exam: Present: alert, oriented X3 Skin exam: Present: warm, dry Course Vital Signs 01/10/24 01/10/24 01/11/24 22:41 23:47 00:00 Temperature 99.6 F Pulse Rate 101 H 94 86 Respiratory 20 16 18 Rate Blood Pressure 171/91 146/89 146/89 O2 Sat by Pulse 93 L 94 L 94 L Oximetry 01/11/24 01/11/24 01/11/24 01:00 02:00 03:37 Temperature Pulse Rate 82 93 81 Respiratory 16 16 22 Rate Blood Pressure 150/78 151/74 127/58 O2 Sat by Pulse 95 96 94 L Oximetry Medical Decision Making - Medical Decision Making Was pt. sent in by a medical professional or institution (ARIANNA Koch, GAS TESTER, urgent care, hospital, or assisted...) When possible be specific @ -No Did you speak to anyone other than the patient for history (EMS, parent, family, police, friend...)? What history was obtained from this source @ -No Did you review nursing and triage notes (agree or disagree)? Why? @ -I reviewed and agree with nursing and triage notes Were old charts reviewed (outside hosp., previous admission, EMS record, old EKG, old radiological studies, urgent care reports/EKG's, assisted records)? Report findings @ -No old charts were reviewed Differential Diagnosis (chest pain, altered mental status, abdominal pain women, abdominal pain men, vaginal bleeding, weakness, fever, dyspnea, syncope, headache, dizziness, GI bleed, back pain, seizure, CVA, palpatations, mental health, musculoskeletal)? @ -Differential Musculoskeletal Muscular strain, contusion, ligament sprain, fracture, arthritis, septic arthritis, bursitis, cellulitis, muscle spasm, nerve compression, DVT, arterial occlusion, herpes zoster, electrolyte abnormality, tumor.... This is not meant to be in all inclusive list EKG interpreted by me (3pts min.). @ -EKG interpreted by me showing a sinus rhythm with nonspecific findings at a rate of 86 bpm. OH 139, QRS 114, QT/QTc 395/438. X-rays interpreted by me (1pt min.). @ -Chest x-ray interpreted by me showing cardiomegaly with mild pulmonary edema and right pleural effusion. CT interpreted by me (1pt min.). @ -CT of the chest interpreted me showing no evidence of PE. U/S interpreted by me (1pt. min.). @ -Ultrasound interpreted by me showing positive DVT and small branch within the calf. No DVT from common femoral vein down to the popliteal vein. What testing was considered but not performed or refused? (CT, X-rays, U/S, labs)? Why? @ -None What meds were considered but not given or refused? Why? @ -None Did you discuss the management of the patient with other professionals (professionals i.e. ARIANNA Koch, GAS TESTER, lab, RT, psych nurse, executive secretary social welfare, military lawyer, teacher, financial services officer, medical case manager)? Give summary @ -No Was smoking cessation discussed for >3mins.? @ -No Was critical care preformed (if so, how long)? @ -No Were there social determinants of health that impacted care today? How? (Homelessness, low income, unemployed, alcoholism, drug addiction, transportation, low edu. Level, literacy, decrease access to med. care, half-way, rehab)? @ -No Was there de-escalation of care discussed even if they declined (Discuss DNR or withdrawal of care, Hospice)? DNR status @ -No What co-morbidities impacted this encounter? (DM, HTN, Smoking, COPD, CAD, Cancer, CVA, ARF, Chemo, Hep., AIDS, mental health diagnosis, sleep apnea, morbid obesity)? @ -CHF Was patient admitted / discharged? Hospital course, mention meds given and route, prescriptions, significant lab abnormalities, going to OR and other pertinent info. @ -Discharge 68-year-old female with past medical history significant for CHF presenting to the ED with complaints right leg swelling and pain over the past week. Labo ratory studies reviewed. CBC largely unremarkable. Chemistry panel largely unremarkable. Patient denies complaints of chest pain or shortness of breath. Initial troponin 0.055 > 0.058. With no complaints of chest pain or shortness of breath flat troponin curve unlikely indicative of ACS. Doppler ultrasound showed a positive thrombus in the small branch within the calf. CT of the chest showed no evidence of PE. Patient provided dose of Lovenox here and provided prescription for starter pack of Eliquis. Advise close follow-up with PCP. Discharged home in stable condition. Discussed return precautions with patient who verbalized agreement. Undiagnosed new problem with uncertain prognosis? @ -No Drug Therapy requiring intensive monitoring for toxicity (Heparin, Nitro, I nsulin, Cardizem)? @ -No Were any procedures done? @ -No Diagnosis/symptom? @ -Right calf DVT Acute, or Chronic, or Acute on Chronic? @ -Acute Uncomplicated (without systemic symptoms) or Complicated (systemic symptoms)? @ -Uncomplicated Side effects of treatment? @ -No Exacerbation, Progression, or Severe Exacerbation? @ -No Poses a threat to life or bodily function? How? (Chest pain, [place], [place], pneumonia, PE, COPD, DKA, ARF, appy, cholecystitis, CVA, Diverticulitis, Homicidal, Suicidal, threat to staff... and all critical care pts) @ -Unlikely - Lab Data Result diagrams: 01/11/24 00:22 01/11/24 00:22 Lab Results 01/11/24 01/11/24 01/11/24 Range/Units 00:22 00:22 00:22 WBC 6.2 (3.8-10.6) k/uL RBC 3.80 (3.80-5.40) m/uL Hgb 11.1 L (11.4-16.0) gm/dL Hct 36.8 (34.0-46.0) % MCV 96.8 (80.0-100.0) fL MCH 29.1 (25.0-35.0) pg MCHC 30.0 L (31.0-37.0) g/dL RDW 17.4 H (11.5-15.5) % Plt Count 140 L (150-450) k/uL MPV 8.0 Neutrophils % 71 % Lymphocytes % 20 % Monocytes % 6 % Eosinophils % 1 % Basophils % 0 % Neutrophils # 4.4 (1.3-7.7) k/uL Lymphocytes # 1.2 (1.0-4.8) k/uL Monocytes # 0.4 (0-1.0) k/uL Eosinophils # 0.1 (0-0.7) k/uL Basophils # 0.0 (0-0.2) k/uL Hypochromasia Marked Anisocytosis Slight Macrocytosis Slight PT (10.0-12.5) sec INR (<1.2) APTT (22.0-30.0) sec Sodium 140 (137-145) mmol/L Potassium 4.0 (3.5-5.1) mmol/L Chloride 110 H (98-107) mmol/L Carbon Dioxide 23 (22-30) mmol/L Anion Gap 7 mmol/L BUN 15 (7-17) mg/dL Creatinine 1.03 (0.52-1.04) mg/dL Est GFR (CKD-EPI)AfAm 64 (>60 ml/min/1.73 sqM) Est GFR (CKD-EPI)NonAf 56 (>60 ml/min/1.73 sqM) Glucose 114 H (74-99) mg/dL Calcium 8.8 (8.4-10.2) mg/dL Magnesium 1.8 (1.6-2.3) mg/dL Total Bilirubin 1.4 H (0.2-1.3) mg/dL AST 30 (14-36) U/L ALT 15 (4-34) U/L Alkaline Phosphatase 97 (38-126) U/L Troponin I 0.055 H* (0.000-0.034) ng/mL Total Protein 6.8 (6.3-8.2) g/dL Albumin 3.6 (3.5-5.0) g/dL 01/11/24 01/11/24 Range/Units 03:05 03:05 WBC (3.8-10.6) k/uL RBC (3.80-5.40) m/uL Hgb (11.4-16.0) gm/dL Hct (34.0-46.0) % MCV (80.0-100.0) fL MCH (25.0-35.0) pg MCHC (31.0-37.0) g/dL RDW (11.5-15.5) % Plt Count (150-450) k/uL MPV Neutrophils % % Lymphocytes % % Monocytes % % Eosinophils % % Basophils % % Neutrophils # (1.3-7.7) k/uL Lymphocytes # (1.0-4.8) k/uL Monocytes # (0-1.0) k/uL Eosinophils # (0-0.7) k/uL Basophils # (0-0.2) k/uL Hypochromasia Anisocytosis Macrocytosis PT 13.2 H (10.0-12.5) sec INR 1.2 H (<1.2) APTT 22.6 (22.0-30.0) sec Sodium (137-145) mmol/L Potassium (3.5-5.1) mmol/L Chloride (98-107) mmol/L Carbon Dioxide (22-30) mmol/L Anion Gap mmol/L BUN (7-17) mg/dL Creatinine (0.52-1.04) mg/dL Est GFR (CKD-EPI)AfAm (>60 ml/min/1.73 sqM) Est GFR (CKD-EPI)NonAf (>60 ml/min/1.73 sqM) Glucose (74-99) mg/dL Calcium (8.4-10.2) mg/dL Magnesium (1.6-2.3) mg/dL Total Bilirubin (0.2-1.3) mg/dL AST (14-36) U/L ALT (4-34) U/L Alkaline Phosphatase (38-126) U/L Troponin I 0.058 H* (0.000-0.034) ng/mL Total Protein (6.3-8.2) g/dL Albumin (3.5-5.0) g/dL Disposition Clinical Impression: DVT (deep venous thrombosis) Disposition: HOME SELF-CARE Condition: Good Instructions (If sedation given, give patient instructions): Deep Vein Thrombosis (ED), Apixaban (By mouth) Additional Instructions: Please return to the Emergency Department if symptoms worsen or any other concerns. Please start taking Eliquis as directed in the instructions and follow-up with your primary care provider. Prescriptions: Apixaban [Eliquis] 0 mg PO DIRECTED #74 tablet Apixaban [Eliquis Starter Pack (for VTE)] 0 mg PO DIRECTED 30 Days #1 packet Is patient prescribed a controlled substance at d/c from ED?: No Referrals: None,Stated [Primary Care Provider] - 1-2 days Time of Disposition: 04:34
[2024-01-11] MEDS: MORPHINE SULFATE 2 MG/ML SYRINGE IVP STA (03:03)
[2024-01-11] MEDS: ONDANSETRON 4 MG/2 ML VIAL IVP STA (03:03)
[2024-01-11] MEDS: ACETAMINOPHEN TAB 500 MG TAB PO STA (03:04)
[2024-01-11 03:40] LABS: INR 1.2 (<1.2); Partial Thromboplastin Time 22.6 sec (22.0-30.0); Prothrombin Time 13.2 sec (10.0-12.5)
--- NOTE | 2024-01-11 03:55 | CT ---
EXAM: CT Angiography Chest With Intravenous Contrast CLINICAL HISTORY: ITS.REASON CT Reason: r/o pe TECHNIQUE: Axial computed tomographic angiography images of the chest with intravenous contrast. CTDI is 21.4 mGy and DLP is 301 mGy-cm. This CT exam was performed using one or more of the following dose reduction techniques: automated exposure control, adjustment of the mA and/or kV according to patient size, and/or use of iterative reconstruction technique. MIP reconstructed images were created and reviewed. COMPARISON: No relevant prior studies available. FINDINGS: Pulmonary arteries: No pulmonary embolism. Aorta: No thoracic aortic aneurysm. Lungs: See below. Pleural space: Moderate right pleural effusion and mild pulmonary edema. Heart: Cardiomegaly with trace pericardial effusion. Bones/joints: No acute fracture or dislocation. Soft tissues: Anasarca. Lymph nodes: No enlarged lymph nodes. IMPRESSION: 1. Moderate right pleural effusion and mild pulmonary edema. 2. Cardiomegaly with trace pericardial effusion. 3. Anasarca. 4. No pulmonary embolism.
[2024-01-11] MEDS: ENOXAPARIN 60 MG/0.6 ML SYRINGE SQ STA (04:50)
[2024-01-11 05:32] VITALS: BP 120/55; PULSE 75; RESP 18
== END 2024-01-11 04:56 | disposition home or self-care (01) ==
LOC: EC 22:23
DX: I82.401 Acute embolism and thrombosis of unspecified deep veins of right lower extremity (principal); F17.200 Nicotine dependence, unspecified, uncomplicated
CPT/HCPCS: 36415; 93005; 80053; 83735; 84484; 85025; 85610; 85730; 71046; 93971; 71275; 99284; 96374; 96375; 96372; J2405; J1650; J2270; Q9967

== ENCOUNTER 2024-02-12 02:16 | Inpatient (IN) | payer MEDICARE ==
[2024-02-12] MEDS: methylPREDNISolone SOD SUCCI 125 MG/2 ML VIAL IV STA (03:04)
[2024-02-12 03:15] LABS: INR 1.1 (<1.2)
[2024-02-12 03:18] LABS: Anisocytosis Slight; Basophils % (A) 0 %; Eosinophils # (A) 0.1 k/uL (0-0.7); Eosinophils % (A) 1 %; Hypochromasia Marked; Lymphocytes # (A) 1.3 k/uL (1.0-4.8); Lymphocytes % (A) 16 %; MCH 29.6 pg (25.0-35.0); MCV 98.8 fL (80.0-100.0); Macrocytosis Slight; Mean Platelet Volume 7.5; Monocytes # (A) 0.5 k/uL (0-1.0); Monocytes % (A) 6 %; Neutrophils # (A) 6.3 k/uL (1.3-7.7); Neutrophils % (A) 75 %; Poikilocytosis Slight; RBC 4.05 m/uL (3.80-5.40); WBC 8.4 k/uL (3.8-10.6)
[2024-02-12 03:21] LABS: ALT 12 U/L (4-34); AST 25 U/L (14-36); African American GFR (CKD) 72 (>60 ml/min/1.73 sqM); Albumin 3.6 g/dL (3.5-5.0); Alkaline Phosphatase 106 U/L (38-126); Anion Gap 9 mmol/L; Blood Urea Nitrogen 19 mg/dL (7-17); Calcium 9.2 mg/dL (8.4-10.2); Carbon Dioxide 21 mmol/L (22-30); Chloride 110 mmol/L (98-107); Glucose 174 mg/dL (74-99); Magnesium 1.8 mg/dL (1.6-2.3); Non-African American GFR(CKD) 62 (>60 ml/min/1.73 sqM); Partial Thromboplastin Time 19.3 sec (22.0-30.0); Potassium 4.6 mmol/L (3.5-5.1); Sodium 140 mmol/L (137-145); Total Bilirubin 1.9 mg/dL (0.2-1.3); Total Protein 6.9 g/dL (6.3-8.2)
--- NOTE | 2024-02-12 03:32 | XR ---
EXAM: XR Chest, 2 Views CLINICAL HISTORY: Difficulty breathing TECHNIQUE: Frontal and lateral views of the chest. COMPARISON: Chest 2 views dated 01/11/2024 FINDINGS: Lungs: Increased consolidative opacification involving the right anterior and inferior hemithorax. Pulmonary vasculature appears somewhat equalized, similar to the previous examination. Pleural space: No left pleural effusion. No pneumothorax. Heart: Prominent cardiomegaly appears more conspicuous secondary to improvement in the previously noted kyphosis. Mediastinum: The mediastinal contours are grossly stable. Similar atherosclerotic calcification aortic arch. The trachea is midline. Bones/joints: No acute osseous abnormality. Chronic anterior wedging at several mid thoracic vertebral bodies, stable. IMPRESSION: 1. Increased consolidative opacification involving the right anterior and inferior hemithorax. Findings are most consistent with advancing pneumonia and/or increasing loculated pleural effusion. 2. Prominent cardiomegaly appears more conspicuous secondary to improvement in the previously noted kyphosis.
[2024-02-12 04:14] LABS: Platelet Count 424 k/uL (150-450)
--- NOTE | 2024-02-12 04:32 | ED ---
General Adult HPI - General Chief complaint: Shortness of Breath Stated complaint: COPD, CHF Time Seen by Provider: 02/12/24 02:30 Source: EMS Mode of arrival: EMS Limitations: no limitations - History of Present Illness Initial comments: 68-year-old female with a past medical history significant for CHF and COPD presenting to the ED with complaints of dyspnea. Patient reports that she is still a smoker. Patient also admits that she stopped taking her Lasix as she did not know what that was for and states that she did not want to constantly use the restroom. Patient also admits to drinking large amounts of fluids. States over the past few days has had increasing shortness of breath with it worsening today. Denies chest pain. Also does note some pain. No abdominal pain. No changes in bowel or bladder habits. No fever or chills. Denies cough or congestion. No other complaints at this time. - Related Data Previous Rx's Medication Instructions Recorded Aspirin 81 mg PO DAILY #90 tab 11/07/23 Atorvastatin [Lipitor] 80 mg PO DAILY #0 11/07/23 Furosemide [Lasix] 40 mg PO DAILY #90 tab 11/07/23 Losartan [Cozaar] 100 mg PO DAILY #180 tab 11/07/23 Metoprolol Tartrate [Lopressor] 50 mg PO BID #180 tab 11/07/23 Nitroglycerin Sl Tabs [Nitrostat] 0.4 mg SUBLINGUAL Q5M PRN #100 tab 11/07/23 Ticagrelor [Brilinta] 90 mg PO BID #60 tab 11/07/23 hydrALAZINE HCL [Apresoline] 25 mg PO BID #180 tab 11/07/23 Diclofenac Sodium Gel [Voltaren 1% 4 gm TOPICAL QID PRN #100 gm 12/11/23 Gel] methocarbamoL [Robaxin-750] 1,500 mg PO TID PRN #30 tab 12/11/23 Apixaban [Eliquis Starter Pack 0 mg PO DIRECTED 30 Days #1 01/11/24 (for VTE)] packet Apixaban [Eliquis] 0 mg PO DIRECTED #74 tablet 01/11/24 Allergies Allergy/AdvReac Type Severity Reaction Status Date / Time No Known Allergies Allergy Verified 01/10/24 22:43 Review of Systems ROS Statement: Those systems with pertinent positive or pertinent negative responses have been documented in the HPI. ROS Other: All systems not noted in ROS Statement are negative. Past Medical History Past Medical History: Coronary Artery Disease (CAD), CVA/TIA, GERD/Reflux, Hyperlipidemia, Hypertension, Myocardial Infarction ([place]), Osteoarthritis (OA), Skin Disorder Additional Past Medical History / Comment(s): hx migraines, TIA- FRACTURED RIGHT ANKLE 1/2 CAST Last Myocardial Infarction Date:: History of Any Multi-Drug Resistant Organisms: MRSA Date of last positivie culture/infection: 02/21/18 MDRO Source:: NECK Past Surgical History: Heart Catheterization With Stent, Orthopedic Surgery, Tubal Ligation Additional Past Surgical History / Comment(s): left ankle surgery fracture- pins and plate inserted. 2 cardiac stents, neck surgery Past Anesthesia/Blood Transfusion Reactions: No Reported Reaction Date of Last Stent Placement:: 09/2016 Past Psychological History: No Psychological Hx Reported Smoking Status: Current every day smoker Past Alcohol Use History: Occasional Past Drug Use History: None Reported - Past Family History Mother Family Medical History: Hypertension, Myocardial Infarction ([place]) Sister(s) Family Medical History: CVA/TIA, Hypertension, Myocardial Infarction ([place]) Father Family Medical History: Cancer Additional Family Medical History / Comment(s): colon CA Brother(s) Family Medical History: Coronary Artery Disease (CAD), CVA/TIA Additional Family Medical History / Comment(s): CABG General Exam Limitations: no limitations General appearance: alert, in no apparent distress Neck exam: Present: normal inspection Respiratory exam: Present: wheezes, decreased breath sounds Cardiovascular Exam: Present: regular rate GI/Abdominal exam: Present: soft Extremities exam: Present: other (Pitting edema. DP/PT pulses of right lower extremity verified by Doppler.) Neurological exam: Present: alert, oriented X3 Skin exam: Present: warm, dry Course Vital Signs 02/12/24 02/12/24 02/12/24 02:18 03:59 04:34 Temperature 98.3 F Pulse Rate 85 70 64 Respiratory 20 18 Rate Blood Pressure 127/84 130/41 O2 Sat by Pulse 98 97 Oximetry Medical Decision Making - Medical Decision Making Was pt. sent in by a medical professional or institution (, PA, RAILROAD BRAKE REPAIRER, urgent care, hospital, or fdc...) When possible be specific @ -No Did you speak to anyone other than the patient for history (EMS, parent, family, police, friend...)? What history was obtained from this source @ -No Did you review nursing and triage notes (agree or disagree)? Why? @ -I reviewed and agree with nursing and triage notes Were old charts reviewed (outside hosp., previous admission, EMS record, old EKG, old radiological studies, urgent care reports/EKG's, fdc records)? Report findings @ -No old charts were reviewed Differential Diagnosis (chest pain, altered mental status, abdominal pain women, abdominal pain men, vaginal bleeding, weakness, fever, dyspnea, syncope, headache, dizziness, GI bleed, back pain, seizure, CVA, palpatations, mental health, musculoskeletal)? @ -Differential Dyspnea: Coronary syndrome, arrhythmia, tamponade, asthma, COPD, pulmonary embolism, pneumonia, pneumothorax, pulmonary effusion, anaphylaxis, diabetic ketoacidosis, flailed chest, pulmonary contusion, diaphragmatic rupture, anemia, neuromuscular, this is not meant to be an all-inclusive list. EKG interpreted by me (3pts min.). @ -Pending at this time X-rays interpreted by me (1pt min.). @ -Chest x-ray interpreted me showing cardiomegaly with increased consolididative opacification involving the right anterior and inferior hemothorax consistent with pleural effusion. CT interpreted by me (1pt min.). @ -None done U/S interpreted by me (1pt. min.). @ -None done What testing was considered but not performed or refused? (CT, X-rays, U/S, labs)? Why? @ -None What meds were considered but not given or refused? Why? @ -None Did you discuss the management of the patient with other professionals (professionals i.e. , PA, RAILROAD BRAKE REPAIRER, lab, RT, psych nurse, social media designer, front desk person, teacher, civil preparedness training officer, director case management)? Give summary @ -No Was smoking cessation discussed for >3mins.? @ -No Was critical care preformed (if so, how long)? @ -No Were there social determinants of health that impacted care today? How? (Homelessness, low income, unemployed, alcoholism, drug addiction, transportation, low edu. Level, literacy, decrease access to med. care, usp, rehab)? @ -No Was there de-escalation of care discussed even if they declined (Discuss DNR or withdrawal of care, Hospice)? DNR status @ -No What co-morbidities impacted this encounter? (DM, HTN, Smoking, COPD, CAD, Cancer, CVA, ARF, Chemo, Hep., AIDS, mental health diagnosis, sleep apnea, morbid obesity)? @ -COPD/CHF Was patient admitted / discharged? Hospital course, mention meds given and route, prescriptions, significant lab abnormalities, going to OR and other pertinent info. @ -Admission 68-year-old female presenting to the ED with complaints of shortness of breath. Does admit that she stopped taking her Lasix and has had large amounts of fluid intake. Chest x-ray does show increasing right pleural effusion. Patient will be admitted with consult to pulmonology. Undiagnosed new problem with uncertain prognosis? @ -No Drug Therapy requiring intensive monitoring for toxicity (Heparin, Nitro, Insulin, Cardizem)? @ -No Were any procedures done? @ -No Diagnosis/symptom? @ -Shortness of breath Acute, or Chronic, or Acute on Chronic? @ -Acute Uncomplicated (without systemic symptoms) or Complicated (systemic symptoms)? @ -Complicated Side effects of treatment? @ -No Exacerbation, Progression, or Severe Exacerbation? @ -No Poses a threat to life or bodily function? How? (Chest pain, [place], [place], pneumonia, PE, COPD, DKA, ARF, appy, cholecystitis, CVA, Diverticulitis, Homicidal, Suicidal, threat to staff... and all critical care pts) @ -Unlikely at this time - Lab Data Result diagrams: 02/12/24 02:46 02/12/24 02:46 Lab Results 02/12/24 02/12/24 02/12/24 Range/Units 02:46 02:46 02:46 WBC 8.4 (3.8-10.6) k/uL RBC 4.05 (3.80-5.40) m/uL Hgb 12.0 (11.4-16.0) gm/dL Hct 40.0 (34.0-46.0) % MCV 98.8 (80.0-100.0) fL MCH 29.6 (25.0-35.0) pg MCHC 30.0 L (31.0-37.0) g/dL RDW 17.0 H (11.5-15.5) % Plt Count 424 D (150-450) k/uL MPV 7.5 Neutrophils % 75 % Lymphocytes % 16 % Monocytes % 6 % Eosinophils % 1 % Basophils % 0 % Neutrophils # 6.3 (1.3-7.7) k/uL Lymphocytes # 1.3 (1.0-4.8) k/uL Monocytes # 0.5 (0-1.0) k/uL Eosinophils # 0.1 (0-0.7) k/uL Basophils # 0.0 (0-0.2) k/uL Hypochromasia Marked Poikilocytosis Slight Anisocytosis Slight Macrocytosis Slight PT 12.0 (10.0-12.5) sec INR 1.1 (<1.2) APTT 19.3 L (22.0-30.0) sec Sodium 140 (137-145) mmol/L Potassium 4.6 (3.5-5.1) mmol/L Chloride 110 H (98-107) mmol/L Carbon Dioxide 21 L (22-30) mmol/L Anion Gap 9 mmol/L BUN 19 H (7-17) mg/dL Creatinine 0.94 (0.52-1.04) mg/dL Est GFR (CKD-EPI)AfAm 72 (>60 ml/min/1.73 sqM) Est GFR (CKD-EPI)NonAf 62 (>60 ml/min/1.73 sqM) Glucose 174 H (74-99) mg/dL Calcium 9.2 (8.4-10.2) mg/dL Magnesium 1.8 (1.6-2.3) mg/dL Total Bilirubin 1.9 H (0.2-1.3) mg/dL AST 25 (14-36) U/L ALT 12 (4-34) U/L Alkaline Phosphatase 106 (38-126) U/L Troponin I (0.000-0.034) ng/mL Total Protein 6.9 (6.3-8.2) g/dL Albumin 3.6 (3.5-5.0) g/dL 02/12/24 Range/Units 02:46 WBC (3.8-10.6) k/uL RBC (3.80-5.40) m/uL Hgb (11.4-16.0) gm/dL Hct (34.0-46.0) % MCV (80.0-100.0) fL MCH (25.0-35.0) pg MCHC (31.0-37.0) g/dL RDW (11.5-15.5) % Plt Count (150-450) k/uL MPV Neutrophils % % Lymphocytes % % Monocytes % % Eosinophils % % Basophils % % Neutrophils # (1.3-7.7) k/uL Lymphocytes # (1.0-4.8) k/uL Monocytes # (0-1.0) k/uL Eosinophils # (0-0.7) k/uL Basophils # (0-0.2) k/uL Hypochromasia Poikilocytosis Anisocytosis Macrocytosis PT (10.0-12.5) sec INR (<1.2) APTT (22.0-30.0) sec Sodium (137-145) mmol/L Potassium (3.5-5.1) mmol/L Chloride (98-107) mmol/L Carbon Dioxide (22-30) mmol/L Anion Gap mmol/L BUN (7-17) mg/dL Creatinine (0.52-1.04) mg/dL Est GFR (CKD-EPI)AfAm (>60 ml/min/1.73 sqM) Est GFR (CKD-EPI)NonAf (>60 ml/min/1.73 sqM) Glucose (74-99) mg/dL Calcium (8.4-10.2) mg/dL Magnesium (1.6-2.3) mg/dL Total Bilirubin (0.2-1.3) mg/dL AST (14-36) U/L ALT (4-34) U/L Alkaline Phosphatase (38-126) U/L Troponin I 0.020 (0.000-0.034) ng/mL Total Protein (6.3-8.2) g/dL Albumin (3.5-5.0) g/dL Disposition Clinical Impression: Shortness of breath Disposition: ADMITTED IP TO THIS [facility] Referrals: None,Stated [Primary Care Provider] - 1-2 days Time of Disposition: 04:40
[2024-02-12] MEDS: IPRATROPIUM-ALBUTEROL 3 ML NEB INHALATION STA (04:33)
[2024-02-12] MEDS ORDERED: NALOXONE 0.4 MG/ML 1 ML VIAL IV PRN (04:41)
[2024-02-12] MEDS: FUROSEMIDE 10 MG/ML 4 ML VIAL IV SCH (05:11)
--- NOTE | 2024-02-12 05:16 | P.HPIM ---
History of Present Illness H&P Date: 02/12/24 Patient is a 68-year-old female with a PMH of systolic CHF EF 30 to 35%, CAD with stents, hypertension, hyperlipidemia, COPD, and tobacco abuse who presents to the emergency room with complaints of lower extremity edema, shortness of breath, and cough. Patient notes that her symptoms started this past Saturday and gradually worsened. She has been experiencing persistent shortness of breath with orthopnea and significantly diminished exercise tolerance. She reports cough is nonproductive. Does also endorse some substernal chest tightness throughout the day today. Denies experiencing fever, chills, nausea, vomiting, diaphoresis, or dizziness. Reports that she had stopped taking her Lasix a week ago as she was not sure what that medication was prescribed for. Notes the lower extremity edema is significantly worse in the right lower extremity which is usual for her. Chest x-ray in the emergency room revealed a consolidative opacification involving the right anterior and inferior hemithorax with prominent cardiomegaly. EKG revealed normal sinus rhythm at 60 bpm with T wave inversion in leads V4 to V6 with flattening in lead aVF. Laboratory evaluation revealed WBC count 8.4, hemoglobin 12.0, glucose of 174, total bilirubin 1.9, troponin 0.020, with platelet count 424. ED documentation reviewed and case discussed with ED provider. Review of systems: Pertinent positives and negatives as discussed in HPI, a complete review of systems was performed and all other systems are negative. Physical examination: Vital signs reviewed General: non toxic, no distress, appears at stated age, normal weight Derm: no unusual rashes/lesions, warm Head: atraumatic, normocephalic, symmetric Eyes: EOMI, no lid lag, anicteric sclera, pupils equal round reactive to light ENT: Nose and ears atraumatic Neck: No cervical lymphadenopathy, trachea midline, supple Mouth: no lip lesion, mucus membranes moist Cardiovascular: S1S2 reg, no murmur, positive dorsalis pedis pulse bilateral, 2+ bilateral right lower extremity edema, trace left lower extremity edema Lungs: Significant bibasilar rales with right mid and lower lung field diminished breath sounds, no accessory muscle use Abdominal: soft, nontender to palpation, no guarding Ext: muscle strength 5 out of 5 in all 4 extremities grossly, no gross muscle atrophy, no contractures, Neuro: CN II-XI grossly intact, no gross focal neuro deficits Psych: Alert, oriented, appropriate affect Assessment: Acute systolic CHF exacerbation with acute hypoxic respiratory failure Significant right-sided pleural effusion Chronic conditions: CAD status post stents, hypertension, hyperlipidemia, COPD Imaging: Chest x-ray in the emergency room revealed a consolidative opacification involving the right anterior and inferior hemithorax with prominent cardiomegaly. EKG revealed normal sinus rhythm at 60 bpm with T wave inversion in leads V4 to V6 with flattening in lead aVF. Data Review: Laboratory evaluation revealed WBC count 8.4, hemoglobin 12.0, glucose of 174, total bilirubin 1.9, troponin 0.020, with platelet count 424. Plan: Continue with Lasix IV 40 mg every 12 hourly Cardiology consulted Cardiac monitoring Intake and output Daily weights Fluid restriction Resume home medications once reconciled Consult pulmonary for possible thoracentesis Duonebs RTC and prn DVT prophylaxis: Lovenox Subq The patient is admitted with an anticipated greater than 2 midnight stay for evaluation of CHF CODE STATUS: Full Code Discussed with: Patient Anticipated discharge place: Home Past Medical History Past Medical History: Coronary Artery Disease (CAD), CVA/TIA, GERD/Reflux, Hyperlipidemia, Hypertension, Myocardial Infarction ([place]), Osteoarthritis ([place]), Skin Disorder Additional Past Medical History / Comment(s): hx migraines, TIA- FRACTURED RIGHT ANKLE 1/2 CAST Last Myocardial Infarction Date:: History of Any Multi-Drug Resistant Organisms: MRSA Date of last positivie culture/infection: 02/21/18 MDRO Source:: NECK Past Surgical History: Heart Catheterization With Stent, Orthopedic Surgery, Tubal Ligation Additional Past Surgical History / Comment(s): left ankle surgery fracture- pins and plate inserted. 2 cardiac stents, neck surgery Past Anesthesia/Blood Transfusion Reactions: No Reported Reaction Date of Last Stent Placement:: 09/2016 Past Psychological History: No Psychological Hx Reported Smoking Status: Current every day smoker Past Alcohol Use History: Occasional Past Drug Use History: None Reported - Past Family History Mother Family Medical History: Hypertension, Myocardial Infarction ([place]) Sister(s) Family Medical History: CVA/TIA, Hypertension, Myocardial Infarction ([place]) Father Family Medical History: Cancer Additional Family Medical History / Comment(s): colon CA Brother(s) Family Medical History: Coronary Artery Disease (CAD), CVA/TIA Additional Family Medical History / Comment(s): CABG Medications and Allergies Home Medications Medication Instructions Recorded Confirmed Type Aspirin 81 mg PO DAILY #90 tab 11/07/23 Rx Atorvastatin [Lipitor] 80 mg PO DAILY #0 11/07/23 11/04/23 Rx Furosemide [Lasix] 40 mg PO DAILY #90 tab 11/07/23 Rx Losartan [Cozaar] 100 mg PO DAILY #180 tab 11/07/23 Rx Metoprolol Tartrate [Lopressor] 50 mg PO BID #180 tab 11/07/23 Rx Nitroglycerin Sl Tabs [Nitrostat] 0.4 mg SUBLINGUAL Q5M PRN #100 tab 11/07/23 Rx Ticagrelor [Brilinta] 90 mg PO BID #60 tab 11/07/23 Rx hydrALAZINE HCL [Apresoline] 25 mg PO BID #180 tab 11/07/23 Rx Diclofenac Sodium Gel [Voltaren 1% 4 gm TOPICAL QID PRN #100 gm 12/11/23 Rx Gel] methocarbamoL [Robaxin-750] 1,500 mg PO TID PRN #30 tab 12/11/23 Rx Apixaban [Eliquis Starter Pack 0 mg PO DIRECTED 30 Days #1 01/11/24 Rx (for VTE)] packet Apixaban [Eliquis] 0 mg PO DIRECTED #74 tablet 01/11/24 Rx Allergies Allergy/AdvReac Type Severity Reaction Status Date / Time No Known Allergies Allergy Verified 01/10/24 22:43 Physical Exam Vitals: Vital Signs Temp Pulse Resp BP Pulse Ox 02/12/24 04:42 66 02/12/24 04:34 64 02/12/24 03:59 70 18 130/41 97 02/12/24 02:18 98.3 F 85 20 127/84 98 Intake and Output 02/11/24 02/11/24 02/12/24 14:59 22:59 06:59 Other: Weight 61.235 kg Results CBC & Chem 7: 02/12/24 02:46 02/12/24 02:46 Labs: Abnormal Lab Results - Last 24 Hours (Table) 02/12/24 02/12/24 02/12/24 Range/Units 02:46 02:46 02:46 MCHC 30.0 L (31.0-37.0) g/dL RDW 17.0 H (11.5-15.5) % APTT 19.3 L (22.0-30.0) sec Chloride 110 H (98-107) mmol/L Carbon Dioxide 21 L (22-30) mmol/L BUN 19 H (7-17) mg/dL Glucose 174 H (74-99) mg/dL Total Bilirubin 1.9 H (0.2-1.3) mg/dL
--- NOTE | 2024-02-12 09:00 | US ---
EXAMINATION TYPE: US chest DATE OF EXAM: 02/12/2024 COMPARISON: CT CLINICAL INDICATION: Female, 68 years old with history of right sided pleural effusion; right pleural effusion TECHNIQUE: Targeted ultrasound of the posterior lower right hemithorax EXAM MEASUREMENTS: Right Pleural Effusion pocket size: 12.3 cm Right skin surface to fluid distance: 2.6 cm Right side marked for possible thoracentesis outside the dept. Left side NOT marked for possible thoracentesis outside the dept. Pulmonologists are able to review the images in the patient?s EMR. IMPRESSIONS: Large right pleural effusion.
[2024-02-12] MEDS: ENOXAPARIN 40 MG/0.4 ML SYRINGE SQ SCH (09:02)
--- NOTE | 2024-02-12 09:50 | P.CRDCN ---
History of Present Illness History of present illness: HISTORY OF PRESENT ILLNESS: This is a 68-year-old female with a past medical history significant for coronary artery disease with previous stenting, peripheral vascular disease, hypertension, hyperlipidemia, congestive heart failure, and medication noncompliance. Patient has not been to the office since [address] Wolfe. We have been asked to see the patient in consultation for congestive heart failure. Patient examined at the bedside in the emergency room. Patient states she has been feeling short of breath for the past couple days. She denies having any chest pain or pressure. She also reports swelling in her right lower extremity. She states that when she has swelling only occurs in her right leg and she never has swelling in her left leg. She states that she is supposed to be taking Lasix but has not been taking it for approximately 1 month. DIAGNOSTICS: - EKG not available at the time of this dictation - Chest xray increased consolidative opacification involving right anterior and inferior hemothorax. Findings are most consistent with advancing pneumonia and/or increased loculated pleural effusion. Prominent cardiomegaly appears more conspicuous secondary to improvement in previously noted kyphosis.. - Laboratory data: WBC 8.0. Hemoglobin 12.0. Platelet count 424. Sodium 140. Potassium 4.6. BUN 19. Creatinine 0.94. Troponin negative x 1 - Current home cardiac medication list has not been updated at the time of examination - Most recent echocardiogram obtained in October 2023 revealed ejection fraction 30 to 35%, mild pulmonary hypertension, mild mitral regurgitation, mild tricuspid regurgitation - Cardiac catheterization history: November 06, 2023 with stenting of the mid LAD. Patient has had previous stenting of the left circumflex. REVIEW OF SYSTEMS: At the time of my exam: CONSTITUTIONAL: Denies fever or chills. HEENT: Denies blurred vision, vision changes, or eye pain. Denies hemoptysis CARDIOVASCULAR: Denies chest pain. Denies orthopnea. Denies PND. Denies palpitations RESPIRATORY: Denies shortness of breath. GASTROINTESTINAL: Denies abdominal pain. Denies nausea or vomiting. HEMATOLOGIC: Denies bleeding disorders. GENITOURINARY: Denies any blood in urine. SKIN: Denies pruitis. Denies rash. PHYSICAL EXAM: VITAL SIGNS: Reviewed. GENERAL: Well-developed in no acute distress. HEENT: Head is normocephalic. Pupils are equal, round. Sclerae anicteric. Mucous membranes of the mouth are moist. Neck supple. No JVD or thyromegaly LUNGS: Respirations even and unlabored. Lungs diminished with bibasilar crackles HEART: Regular rate and rhythm. S1 and S2 heard. Systolic murmur noted ABDOMEN: Soft. Nondistended. Nontender. EXTREMITIES: Normal range of motion. No clubbing or cyanosis. Peripheral pu lses intact. Right lower extremity edema noted NEUROLOGIC: Awake and alert. Oriented x 3. ASSESSMENT: Shortness of breath Acute on chronic heart failure with reduced EF, 30 to 35% Medication noncompliance, patient not taking Lasix as prescribed Acute on chronic right lower extremity swelling, venous Doppler pending Large right pleural effusion Coronary artery disease with previous stenting of the circumflex and most recent stenting of the mid LAD in October 2023 Hypertension Hyperlipidemia Peripheral vascular disease PLAN: Obtain 2D echo to assess cardiac structure and function Right lower extremity Doppler is currently pending Continue IV Lasix 40 mg every 12 hours Daily weights, accurate intake and output, and monitoring of kidney function Continue dual antiplatelet therapy with aspirin and Brilinta secondary to recent stenting in October 2023 Add losartan, metoprolol, Aldactone, and Farxiga Obtain EKG and scan into [facility] when completed Further recommendations pending patient course Nurse practitioner note has been reviewed by physician. Signing provider agrees with the documented findings, assessment, and plan of care documented by WASHING MACHINE MECHANIC as a scribe. Past Medical History Past Medical History: Coronary Artery Disease (CAD), CVA/TIA, GERD/Reflux, Hyperlipidemia, Hypertension, Myocardial Infarction ([place]), Osteoarthritis (OA), Skin Disorder Additional Past Medical History / Comment(s): hx migraines, TIA- FRACTURED RIGHT ANKLE 1/2 CAST Last Myocardial Infarction Date:: History of Any Multi-Drug Resistant Organisms: MRSA Date of last positivie culture/infection: 02/21/18 MDRO Source:: NECK Past Surgical History: Heart Catheterization With Stent, Orthopedic Surgery, Tubal Ligation Additional Past Surgical History / Comment(s): left ankle surgery fracture- pins and plate inserted. 2 cardiac stents, neck surgery Past Anesthesia/Blood Transfusion Reactions: No Reported Reaction Date of Last Stent Placement:: 09/2016 Past Psychological History: No Psychological Hx Reported Smoking Status: Current every day smoker Past Alcohol Use History: Occasional Past Drug Use History: None Reported - Past Family History Mother Family Medical History: Hypertension, Myocardial Infarction ([place]) Sister(s) Family Medical History: CVA/TIA, Hypertension, Myocardial Infarction ([place]) Father Family Medical History: Cancer Additional Family Medical History / Comment(s): colon CA Brother(s) Family Medical History: Coronary Artery Disease (CAD), CVA/TIA Additional Family Medical History / Comment(s): CABG Medications and Allergies Home Medications Medication Instructions Recorded Confirmed Type Aspirin 81 mg PO DAILY #90 tab 11/07/23 Rx Atorvastatin [Lipitor] 80 mg PO DAILY #0 11/07/23 11/04/23 Rx Furosemide [Lasix] 40 mg PO DAILY #90 tab 11/07/23 Rx Losartan [Cozaar] 100 mg PO DAILY #180 tab 11/07/23 Rx Metoprolol Tartrate [Lopressor] 50 mg PO BID #180 tab 11/07/23 Rx Nitroglycerin Sl Tabs [Nitrostat] 0.4 mg SUBLINGUAL Q5M PRN #100 tab 11/07/23 Rx Ticagrelor [Brilinta] 90 mg PO BID #60 tab 11/07/23 Rx hydrALAZINE HCL [Apresoline] 25 mg PO BID #180 tab 11/07/23 Rx Diclofenac Sodium Gel [Voltaren 1% 4 gm TOPICAL QID PRN #100 gm 12/11/23 Rx Gel] methocarbamoL [Robaxin-750] 1,500 mg PO TID PRN #30 tab 12/11/23 Rx Apixaban [Eliquis Starter Pack 0 mg PO DIRECTED 30 Days #1 01/11/24 Rx (for VTE)] packet Apixaban [Eliquis] 0 mg PO DIRECTED #74 tablet 01/11/24 Rx Allergies Allergy/AdvReac Type Severity Reaction Status Date / Time No Known Allergies Allergy Verified 01/10/24 22:43 Physical Exam Vitals: Vital Signs Temp Pulse Resp BP Pulse Ox 02/12/24 06:27 70 20 143/72 95 02/12/24 04:42 66 02/12/24 04:34 64 02/12/24 03:59 70 18 130/41 97 02/12/24 02:18 98.3 F 85 20 127/84 98 Intake and Output 02/11/24 02/12/24 02/12/24 22:59 06:59 14:59 Other: Weight 61.235 kg Results 02/12/24 02:46 02/12/24 02:46 Cardiac Enzymes 02/12/24 02/12/24 Range/Units 02:46 02:46 AST 25 (14-36) U/L Troponin I 0.020 (0.000-0.034) ng/mL Coagulation 02/12/24 Range/Units 02:46 PT 12.0 (10.0-12.5) sec APTT 19.3 L (22.0-30.0) sec CBC 02/12/24 Range/Units 02:46 WBC 8.4 (3.8-10.6) k/uL RBC 4.05 (3.80-5.40) m/uL Hgb 12.0 (11.4-16.0) gm/dL Hct 40.0 (34.0-46.0) % Plt Count 424 D (150-450) k/uL Comprehensive Metabolic Panel 02/12/24 Range/Units 02:46 Sodium 140 (137-145) mmol/L Potassium 4.6 (3.5-5.1) mmol/L Chloride 110 H (98-107) mmol/L Carbon Dioxide 21 L (22-30) mmol/L BUN 19 H (7-17) mg/dL Creatinine 0.94 (0.52-1.04) mg/dL Glucose 174 H (74-99) mg/dL Calcium 9.2 (8.4-10.2) mg/dL AST 25 (14-36) U/L ALT 12 (4-34) U/L Alkaline Phosphatase 106 (38-126) U/L Total Protein 6.9 (6.3-8.2) g/dL Albumin 3.6 (3.5-5.0) g/dL Current Medications Generic Name Dose Route Start Last Admin Trade Name Freq PRN Reason Stop Dose Admin Acetaminophen 650 mg 02/12/24 04:41 Acetaminophen Tab 325 Mg Tab PO Q6HR PRN Mild Pain or Fever > 100.5 Albuterol/Ipratropium 3 ml 02/12/24 04:46 Ipratropium-Albuterol 3 Ml Neb INHALATION RT-Q2H PRN Shortness Of Breath Or Wheezing Enoxaparin Sodium 40 mg 02/12/24 09:00 02/12/24 09:02 Enoxaparin 40 Mg/0.4 Ml Syringe SQ 40 mg DAILY AMANDA Administration Furosemide 40 mg 02/12/24 06:00 02/12/24 05:11 Furosemide 10 Mg/Ml 4 Ml Vial IV 40 mg Q12H AMANDA Administration Naloxone HCl 0.2 mg 02/12/24 04:41 Naloxone 0.4 Mg/Ml 1 Ml Vial IV Q2M PRN Opioid Reversal Ondansetron HCl 4 mg 02/12/24 04:41 Ondansetron 4 Mg/2 Ml Vial IVP Q8HR PRN Nausea And Vomiting Intake and Output 02/11/24 02/12/24 02/12/24 22:59 06:59 14:59 Other: Weight 61.235 kg 02/12/24 02:46 02/12/24 02:46
--- NOTE | 2024-02-12 09:52 | US ---
EXAMINATION TYPE: US venous doppler duplex LE RT DATE OF EXAM: 02/12/2024 9:15 AM COMPARISON: NONE CLINICAL INDICATION: Female, 68 years old with history of Edema RLE; edema SIDE PERFORMED: Right TECHNIQUE: The lower extremity deep venous system is examined utilizing real time linear array sonog jose with graded compression, doppler sonography and color-flow sonography. VESSELS IMAGED: Common Femoral Vein Deep Femoral Vein Greater Saphenous Vein * Femoral Vein Popliteal Vein Small Saphenous Vein * Proximal Calf Veins (* superficial vessels) Right Leg: Negative for DVT IMPRESSION: Grayscale, color doppler, spectral doppler imaging performed of the deep veins of the lo wer extremities. There is normal flow, compressibility, vascular waveforms.
[2024-02-12] MEDS ORDERED: ASPIRIN 81 MG PO SCH (10:07)
[2024-02-12] MEDS ORDERED: ATORVASTATIN 80 MG TAB PO SCH (10:15)
[2024-02-12] MEDS: METOPROLOL SUCCINATE (ER) 50 MG TAB.ER.24H PO SCH (10:38)
[2024-02-12] MEDS: TICAGRELOR 90 MG TAB PO SCH (10:38)
[2024-02-12] MEDS: LOSARTAN 50 MG TAB PO SCH (10:38)
[2024-02-12] MEDS: ASPIRIN 81 MG PO SCH (10:38)
[2024-02-12] MEDS: SPIRONOLACTONE 25 MG TAB PO SCH (10:38)
[2024-02-12] MEDS: DAPAGLIFLOZIN PROPANEDIOL 10 MG TABLET PO SCH (10:40)
[2024-02-12] MEDS: METOPROLOL TARTRATE 50 MG TAB PO SCH (11:33)
--- NOTE | 2024-02-12 13:54 | P.CNPUL ---
History of Present Illness Consult date: 02/12/24 Requesting physician: Bandar Rodriguez Reason for consult: dyspnea, pleural effusion, abnormal CXR/CT Chief complaint: Shortness of breath, lower extremity edema right greater than left History of present illness: This is a 68-year-old female patient with a known history of hyperlipidemia, hypertension, coronary disease with previous stent placements and recent stent placement November 06, 2019 to the mid LAD, chronic and ongoing tobacco dependence. She also has ischemic cardiomyopathy with impaired left ventricular systolic function ejection fraction of 30 to 35%. [facility] with complaints of increasing shortness of breath and lower extremity edema right greater than left. She did admit to not taking her Lasix due to causing her to use the restroom too often. Chest x-ray shows a significant right-sided pleural effusion. Ultrasound measures it at 12.3 cm. Over the right lower extremity was negative for DVT. White count 8.4. Hemoglobin 12.0. Platelets 424. Sodium 140. Potassium 4.6. Bicarb 21. BUN 19. Creatinine 0.94. Glucose 174. The patient is seen today in the emergency department. She is awake and alert in no acute distress. She is maintaining O2 saturations in the 90s on 2 L/min per nasal cannula. Review of Systems REVIEW OF SYSTEMS: CONSTITUTIONAL: Denies any recent significant weight loss or weight gain. EYES: Denies change in vision. EARS, NOSE, MOUTH, THROAT: Denies headaches, denies sore throat. CARDIOVASCULAR: Denies chest pain, palpitations or syncopal episodes. RESPIRATORY: Positive for shortness of breath, cough, congestion no hemoptysis. GASTROINTESTINAL: Denies change in appetite, denies abdominal pain GENITOURINARY: Denies hematuria, denies infections. MUSKULOSKELETAL: Positive for lower extremity swelling right greater than left. INTEGUMENTARY: Denies rash, denies eczema. NEUROLOGICAL: Denies recent memory loss, no recent seizure activity. PSYCHIATRIC: Denies anxiety, denies depression. HEMATOLOGIC/LYMPHATIC: Denies anemia, denies enlarged lymph nodes. Past Medical History Past Medical History: Coronary Artery Disease (CAD), CVA/TIA, GERD/Reflux, Hyperlipidemia, Hypertension, Myocardial Infarction ([place]), Osteoarthritis ([place]), Skin Disorder Additional Past Medical History / Comment(s): hx migraines, TIA- FRACTURED RIGHT ANKLE 1/2 CAST Last Myocardial Infarction Date:: History of Any Multi-Drug Resistant Organisms: MRSA Date of last positivie culture/infection: 02/21/18 MDRO Source:: NECK Past Surgical History: Heart Catheterization With Stent, Orthopedic Surgery, Tubal Ligation Additional Past Surgical History / Comment(s): left ankle surgery fracture- pins and plate inserted. 2 cardiac stents, neck surgery Past Anesthesia/Blood Transfusion Reactions: No Reported Reaction Date of Last Stent Placement:: 09/2016 Past Psychological History: No Psychological Hx Reported Smoking Status: Current every day smoker Past Alcohol Use History: Occasional Past Drug Use History: None Reported - Past Family History Mother Family Medical History: Hypertension, Myocardial Infarction ([place]) Sister(s) Family Medical History: CVA/TIA, Hypertension, Myocardial Infarction ([place]) Father Family Medical History: Cancer Additional Family Medical History / Comment(s): colon CA Brother(s) Family Medical History: Coronary Artery Disease (CAD), CVA/TIA Additional Family Medical History / Comment(s): CABG Medications and Allergies Home Medications Medication Instructions Recorded Confirmed Type Aspirin 81 mg PO DAILY #90 tab 11/07/23 02/12/24 Rx Atorvastatin [Lipitor] 80 mg PO DAILY #0 11/07/23 02/12/24 Rx Furosemide [Lasix] 40 mg PO DAILY #90 tab 11/07/23 02/12/24 Rx Losartan [Cozaar] 100 mg PO DAILY #180 tab 11/07/23 02/12/24 Rx Metoprolol Tartrate [Lopressor] 50 mg PO BID #180 tab 11/07/23 02/12/24 Rx Nitroglycerin Sl Tabs [Nitrostat] 0.4 mg SUBLINGUAL Q5M PRN #100 tab 11/07/23 02/12/24 Rx hydrALAZINE HCL [Apresoline] 25 mg PO BID #180 tab 11/07/23 02/12/24 Rx Diclofenac Sodium Gel [Voltaren 1% 4 gm TOPICAL QID PRN #100 gm 12/11/23 02/12/24 Rx Gel] methocarbamoL [Robaxin-750] 1,500 mg PO TID PRN #30 tab 12/11/23 02/12/24 Rx Allergies Allergy/AdvReac Type Severity Reaction Status Date / Time No Known Allergies Allergy Verified 02/12/24 09:51 Physical Exam Vitals: Vital Signs Temp Pulse Resp BP Pulse Ox 02/12/24 10:42 79 18 139/65 96 02/12/24 06:27 70 20 143/72 95 02/12/24 04:42 66 02/12/24 04:34 64 02/12/24 03:59 70 18 130/41 97 02/12/24 02:18 98.3 F 85 20 127/84 98 Intake and Output 02/11/24 02/12/24 02/12/24 22:59 06:59 14:59 Other: Weight 61.235 kg GENERAL EXAM: Alert, 68-year-old female, appears older than stated age, on 2 L nasal cannula, fairly comfortable in no apparent distress. HEAD: Normocephalic. EYES: Normal reaction of pupils, equal size. NOSE: Clear with pink turbinates. THROAT: No erythema or exudates. NECK: No masses, no JVD. CHEST: No chest wall deformity. LUNGS: Equal air entry with crackles in the bilateral bases right greater than left. Dullness. CVS: S1 and S2 normal with no audible murmur, regular rhythm. ABDOMEN: No hepatosplenomegaly, normal bowel sounds, no guarding or rigidity. SPINE: No scoliosis or deformity SKIN: No rashes CENTRAL NERVOUS SYSTEM: No focal deficits, tone is normal in all 4 extremities. EXTREMITIES: There is 1-2+ peripheral edema right greater than left. No clubbing, no cyanosis. Peripheral pulses are intact. Results - Laboratory Findings CBC and BMP: 02/12/24 02:46 02/12/24 02:46 PT/INR, D-dimer PT 12.0 sec (10.0-12.5) 02/12/24 02:46 INR 1.1 (<1.2) 02/12/24 02:46 Abnormal lab findings: Abnormal Labs 02/12/24 02/12/24 02/12/24 02:46 02:46 02:46 MCHC 30.0 L RDW 17.0 H APTT 19.3 L Chloride 110 H Carbon Dioxide 21 L BUN 19 H Glucose 174 H Total Bilirubin 1.9 H - Diagnostic Findings Chest x-ray: image reviewed Assessment and Plan Assessment: Acute hypoxemic respiratory failure secondary to an acute exacerbation of chronic systolic congestive heart failure in a patient with a known ejection fraction of 30 to 35% Coronary disease with previous stent placements most recently in October 2023 to the mid LAD Ischemic cardiomyopathy Chronic and ongoing tobacco dependence Chronic obstructive pulmonary disease Hypertension Hyperlipidemia History of CVA/TIA Plan: The patient was seen and evaluated Chest x-ray, ultrasound the chest, labs and medications reviewed There is a significant right-sided pleural effusion Will plan for thoracentesis in a.m. Continue diuretics Lovenox for DVT prophylaxis Titrate the FiO2 as tolerated We will continue to follow and make further recommendations based on her clinical status I have personally seen and examined the patient, performed the documentation and the assessment and plan as written. Number of minutes spent on the visit: 20.
--- NOTE | 2024-02-12 17:18 | CA ---
Transthoracic Echo Report Name: Ni Seay Age: 68 Gender: F : 1955 Exam Date: 02/12/2024 15:49 Exam Location: [place] [facility] Ht (in): 60 Wt (lb): 135 Ordering Physician: Gwendolyn Purcell Attending/Referring Phys: [id number], Binh Fabrication Inspector Agustina Arrington, GUSTAVO Procedure CPT: Indications: LV function, CHF Cardiac Hx: Technical Quality: Good Contrast 1: Total Dose (mL): Contrast 2: Total Dose (mL): MEASUREMENTS (Male / Female) Normal Values 2D ECHO LV Diastolic Volume MOD 4C 114.2 cm??? LV Systolic Volume MOD 4C 70.3 cm??? LV Ejection Fraction MOD 4C 38.5 % LV Cardiac Index MOD 4C 1781.9 cm???/min???m??? LV Diastolic Length 4C 8.7 cm LV Systolic Length 4C 7.9 cm LV Diastolic Volume MOD 2C 92.4 cm??? LV Systolic Volume MOD 2C 57.1 cm??? LV Ejection Fraction MOD 2C 38.2 % LV Cardiac Index MOD 2C 1431.2 cm???/min???m??? LV Diastolic Length 2C 9.0 cm LV Systolic Length 2C 8.1 cm DOPPLER AV Peak Velocity 172.2 cm/s AV Peak Gradient 11.9 mmHg AV Mean Velocity 110.4 cm/s AV Mean Gradient 5.6 mmHg AV Velocity Time Integral 38.9 cm TR Peak Velocity 250.0 cm/s TR Peak Gradient 25.0 mmHg Right Ventricular Systolic Press 30.0 mmHg FINDINGS Left Ventricle Left ventricular ejection fraction is estimated at 30-35 %. Moderately reduced global left ventricular systolic function. Right Ventricle Right ventricular systolic pressure within normal limits. Right Atrium Left Atrium Mitral Valve Mitral valve thickened. Trace mitral regurgitation. Aortic Valve Trileaflet aortic valve. Thickened aortic valve without stenosis. Tricuspid Valve Structurally normal tricuspid valve. [id number] tricuspid regurgitation. Pulmonic Valve Pericardium Right and left pleural effusion. Aorta CONCLUSIONS Ischemic cardiomyopathy with an ejection fraction of 30-35% Mild to moderate tricuspid regurgitation Pleural effusion noted Small pericardial effusion noted Previewed by: Dr. Shreyas Mcadams MD (Electronically Signed) Final Date: 12 February 2024 17:17
[2024-02-12] MEDS: IPRATROPIUM-ALBUTEROL 3 ML NEB INHALATION PRN (21:01)
[2024-02-12] MEDS: ATORVASTATIN 80 MG TAB PO SCH (22:12)
[2024-02-12] MEDS: hydrALAZINE HCL 25 MG TAB PO SCH (22:12)
[2024-02-13] MEDS ORDERED: LOSARTAN 50 MG TAB PO SCH (09:00)
[2024-02-13 09:41] LABS: ALT 11 U/L (8-44); AST 15 U/L (13-35); Albumin 3.1 g/dL (3.8-4.9); Albumin/Globulin Ratio 1.15 Ratio (1.60-3.17); Alkaline Phosphatase 89 U/L (41-126); BUN/Creat Ratio 20.75 Ratio (12.00-20.00); Blood Urea Nitrogen 24.9 mg/dL (9.0-27.0); Calcium 8.6 mg/dL (8.7-10.3); Carbon Dioxide 25.4 mmol/L (21.6-31.8); Chloride 105 mmol/L (96-109); Globulin 2.7 g/dL (1.6-3.3); Glucose 145 mg/dL (70-110); Potassium 3.4 mmol/L (3.5-5.5); Sodium 144 mmol/L (135-145); Total Bilirubin 0.7 mg/dL (0.3-1.2); Total Protein 5.8 g/dL (6.2-8.2)
[2024-02-13 09:46] LABS: Basophils # (A) 0.01 X 10*3/uL (0.00-0.10); Basophils % (A) 0.1 %; Eosinophils # (A) 0 X 10*3/uL (0.04-0.35); Eosinophils % (A) 0 %; HCT 39.1 % (37.2-46.3); HGB 11.8 g/dL (12.0-15.0); Lymphocytes # (A) 0.52 X 10*3/uL (0.90-5.00); Lymphocytes % (A) 3.4 %; MCH 28.9 pg (27.0-32.0); MCHC 30.2 g/dL (32.0-37.0); MCV 95.6 FL (80.0-97.0); Mean Platelet Volume 9.3 FL (9.5-12.2); Monocytes # (A) 1.04 X 10*3/uL (0.20-1.00); Monocytes % (A) 6.8 %; NRBC Per 100 WBC 0 X 10*3/uL (0.00-0.01); Neutrophils # (A) 13.55 X 10*3/uL (1.80-7.70); Neutrophils % (A) 88.9 %; Platelet Count 441 X 10*3/uL (140-440); RBC 4.09 X 10*6/uL (4.10-5.20); RDW 17.3 % (11.5-14.5); WBC 15.24 X 10*3/uL (4.50-10.00)
--- NOTE | 2024-02-13 10:31 | XR ---
EXAMINATION TYPE: XR chest 1V portable DATE OF EXAM: 02/13/2024 10:08 AM CLINICAL INDICATION:Female, 68 years old with history of S/P right thoracentesis; [facility] COMPARISON: Chest radiographs from 02/12/2024 TECHNIQUE: XR chest 1V portable Frontal view of the chest. FINDINGS: Lungs/Pleura: There is small right pleural effusion no pneumothorax. There is no evidence of pleural effusion, focal consolidation, or pneumothorax. Pulmonary vascularity: Unremarkable. Heart/mediastinum: Cardiomediastinal silhouette is unremarkable. Musculoskeletal: No acute osseous pathology. IMPRESSION: Interval decrease in right pleural effusion, no evidence for pneumothorax.
--- NOTE | 2024-02-13 10:36 | PCN ---
PROCEDURE NOTE PULMONARY/CRITICAL CARE PROCEDURE NOTE PROCEDURE PERFORMED: Right-sided thoracentesis. PREOPERATIVE DIAGNOSIS: Right pleural effusion. POSTOPERATIVE DIAGNOSIS: Right pleural effusion. The posterior chest marked by ultrasound. DISABILITY AIDE: Dr. Vaughn. [employer] [facility] PRACTICE MANAGER: Dr. Claire Guerra. There was informed consent and universal timeout. The patient's procedure took place in the patient's room. DESCRIPTION OF PROCEDURE: Indication: Pleural effusion. A time-out was completed verifying correct patient, procedure, site, positioning , and implant (s) or special equipment if applicable. Ultrasound guidance was/was not used and appropriate fluid pocket was identified and marked. Patient was positioned, prepped and draped in usual sterile fashion. Lidocaine was used to anesthetize the area. A Thoracentesis catheter was introduced into the pleural space and fluid was removed. Blood loss was none. A chest x-ray was ordered to evaluate for pneumothorax. Total Fluid Removed: We evacuated 1.2 L of dark brown/bloody fluid from the right pleural space. The patient tolerated the procedure well. The fluid will be sent for cytology, microbiology, and chemistry. A chest x-ray was ordered. There was no immediate complication. MMODL / IJN: [id number] /
--- NOTE | 2024-02-13 11:21 | P.PN ---
Subjective Progress Note Date: 02/13/24 Feels okay today, on room air still has episodes of dry cough and some shortness of breath. No chest pain, no hematuria dysuria hematemesis hematochezia. Objective - Vital Signs Vital signs: Vital Signs Temp 98.1 F 02/13/24 07:20 Pulse 78 02/13/24 09:49 Resp 18 02/13/24 07:20 BP 102/62 02/13/24 07:20 Pulse Ox 93 L 02/13/24 09:37 FiO2 Intake & Output 02/12/24 02/13/24 02/13/24 18:59 06:59 18:59 Intake Total 280 Output Total 400 Balance -120 Weight 61.235 kg 56.1 kg Intake: Oral 280 Output: Urine 400 Other: # Voids 2 - Exam Constitutional: No acute distress, conversant, pleasant Eyes: Anicteric sclerae, moist conjunctiva, no lid-lag, PERRLA ENMT: NC/AT,Oropharynx clear, no erythema, exudates Neck:Supple, FROM, no masses, or JVD, No carotid bruits; No thyromegaly Lungs: Creased breath sounds Cardiovascular: Heart regular in rate and rhythm, No murmurs, gallops, or rubs no peripheral edema Abdominal: Soft Nontender, non distended, no guarding, no rebound or rigidity, Normoactive bowel sounds No hepatomegaly, No splenomegaly, No palpable mass No abdominal wall hernia noted Skin: Normal temperature, tone, texture, turgor, No induration No subcutaneous nodules, No rash, lesions, No ulcers Extremities:No digital cyanosis No clubbing, Pedal pulses intact and symmetrical Radial pulses intact and symmetrical Normal gait and station, No calf tenderness Psychiatric: Alert and oriented to person, place and time, Appropriate affect Intact judgement Neuro: Muscles Strength 5/5 in all 4 extremities, Sensation to light touch grossly present throughout, Cranial nerves II-XII grossly intact. No focal sensory deficits - Labs CBC & Chem 7: 02/13/24 05:29 02/13/24 05:29 Labs: Abnormal Lab Results - Last 24 Hours (Table) 02/12/24 02/13/24 02/13/24 Range/Units 12:44 05:29 05:29 WBC 15.24 H (4.50-10.00) X 10*3/uL RBC 4.09 L (4.10-5.20) X 10*6/uL Hgb 11.8 L (12.0-15.0) g/dL MCHC 30.2 L (32.0-37.0) g/dL RDW 17.3 H (11.5-14.5) % Plt Count 441 H (140-440) X 10*3/uL MPV 9.3 L (9.5-12.2) FL Immature Gran # 0.12 H (0.00-0.04) X 10*3/uL Neutrophils # 13.55 H (1.80-7.70) X 10*3/uL Lymphocytes # 0.52 L (0.90-5.00) X 10*3/uL Monocytes # 1.04 H (0.20-1.00) X 10*3/uL Eosinophils # 0 L (0.04-0.35) X 10*3/uL Potassium 3.4 L (3.5-5.5) mmol/L Anion Gap 13.60 H (4.00-12.00) mmol/L Est GFR (CKD-EPI) 49 L (>=60) BUN/Creatinine Ratio 20.75 H (12.00-20.00) Ratio Glucose 145 H (70-110) mg/dL Calcium 8.6 L (8.7-10.3) mg/dL Troponin I 0.049 H* (0.000-0.034) ng/mL Total Protein 5.8 L (6.2-8.2) g/dL Albumin 3.1 L (3.8-4.9) g/dL Albumin/Globulin Ratio 1.15 L (1.60-3.17) Ratio Assessment and Plan Plan: Acute systolic CHF exacerbation with acute hypoxic respiratory failure, ejection fraction 30 to 35% Significant right-sided pleural effusion Chronic conditions: CAD status post stents, hypertension, hyperlipidemia, COPD Imaging: Chest x-ray in the emergency room revealed a consolidative opacification involving the right anterior and inferior hemithorax with prominent cardiomegaly. EKG revealed normal sinus rhythm at 60 bpm with T wave inversion in leads V4 to V6 with flattening in lead aVF. Data Review: Laboratory evaluation revealed WBC count 8.4, hemoglobin 12.0, glucose of 174, total bilirubin 1.9, troponin 0.020, with platelet count 424. Plan: Continue with Lasix IV 40 mg every 12 hourly Cardiology consulted input appreciated Medications adjusted with adding, metoprolol Aldactone Farxiga and continuing dual antiplatelets with aspirin and Brilinta. Cardiac monitoring Intake and output Daily weights Fluid restriction Resume home medications once reconciled Consult pulmonary for possible thoracentesis Status post 1 point liter fluid removal Duonebs RTC and prn DVT prophylaxis: Lovenox Subq Disposition: Home in the next 2 days. CODE STATUS: Full Code Discussed with: Patient Anticipated discharge place: Home
--- NOTE | 2024-02-13 12:02 | P.PN ---
Subjective Progress Note Date: 02/13/24 This is a 68-year-old female patient with a known history of hyperlipidemia, hypertension, coronary disease with previous stent placements and recent stent placement November 06, 2019 to the mid LAD, chronic and ongoing tobacco dependence. She also has ischemic cardiomyopathy with impaired left ventricular systolic function ejection fraction of 30 to 35%. She presented here to the emergency room late this morning with complaints of increasing shortness of breath and lower extremity edema right greater than left. She did admit to not taking her Lasix due to causing her to use the restroom too often. Chest x-ray shows a significant right-sided pleural effusion. Ultrasound measures it at 12.3 cm. Over the right lower extremity was negative for DVT. White count 8.4. Hemoglobin 12.0. Platelets 424. Sodium 140. Potassium 4.6. Bicarb 21. BUN 19. Creatinine 0.94. Glucose 174. The patient is seen today in the emergency department. She is awake and alert in no acute distress. She is maintaining O2 saturations in the 90s on 2 L/min per nasal cannula. The patient is seen today February 13, 2024 in follow-up on the regular medical floor. She is currently awake and alert in no acute distress. Maintaining O2 saturations in the 90s on room air. She is afebrile. Hemodynamically stable. Did undergo a right-sided thoracentesis today with 1.2 L of dark fluid removed. Fluid analysis and cytology pending. Follow-up chest x-ray continues to show some remaining fluid in the right lung base. No evidence of pneumothorax. Echocardiogram continues to show impaired left ventricular systolic function with ejection fraction of 30 to 35%. White count 15.2. Hemoglobin 11.8. Platelets 441. Sodium 144. Potassium 3.4. Bicarb 25. BUN 25. Creatinine 1.2. Glucose 145. BNP 49,000. She is continued on Lasix 40 mg IV every 12 hours. Remains on bronchodilators. Lovenox for DVT prophylaxis. Currently in a -120 mL balance. Objective - Vital Signs Vital signs: Vital Signs Temp 98.1 F 02/13/24 07:20 Pulse 78 02/13/24 09:49 Resp 18 02/13/24 07:20 BP 102/62 02/13/24 07:20 Pulse Ox 93 L 02/13/24 09:37 FiO2 Intake & Output 02/12/24 02/13/24 02/13/24 18:59 06:59 18:59 Intake Total 280 Output Total 400 Balance -120 Weight 61.235 kg 56.1 kg Intake: Oral 280 Output: Urine 400 Other: # Voids 2 - Exam GENERAL EXAM: Alert, 68-year-old female, on room air, comfortable in no apparent distress. HEAD: Normocephalic. EYES: Normal reaction of pupils, equal size. NOSE: Clear with pink turbinates. THROAT: No erythema or exudates. NECK: No masses, no JVD. CHEST: No chest wall deformity. LUNGS: Equal air entry with crackles in the bilateral bases right greater than left. Dullness. CVS: S1 and S2 normal with no audible murmur, regular rhythm. ABDOMEN: No hepatosplenomegaly, normal bowel sounds, no guarding or rigidity. SPINE: No scoliosis or deformity SKIN: No rashes CENTRAL NERVOUS SYSTEM: No focal deficits, tone is normal in all 4 extremities. EXTREMITIES: There is 1-2+ peripheral edema right greater than left. No clubbing, no cyanosis. Peripheral pulses are intact. - Labs CBC & Chem 7: 02/13/24 05:29 02/13/24 05:29 Labs: Abnormal Lab Results - Last 24 Hours (Table) 02/12/24 02/13/24 02/13/24 Range/Units 12:44 05:29 05:29 WBC 15.24 H (4.50-10.00) X 10*3/uL RBC 4.09 L (4.10-5.20) X 10*6/uL Hgb 11.8 L (12.0-15.0) g/dL MCHC 30.2 L (32.0-37.0) g/dL RDW 17.3 H (11.5-14.5) % Plt Count 441 H (140-440) X 10*3/uL MPV 9.3 L (9.5-12.2) FL Immature Gran # 0.12 H (0.00-0.04) X 10*3/uL Neutrophils # 13.55 H (1.80-7.70) X 10*3/uL Lymphocytes # 0.52 L (0.90-5.00) X 10*3/uL Monocytes # 1.04 H (0.20-1.00) X 10*3/uL Eosinophils # 0 L (0.04-0.35) X 10*3/uL Potassium 3.4 L (3.5-5.5) mmol/L Anion Gap 13.60 H (4.00-12.00) mmol/L Est GFR (CKD-EPI) 49 L (>=60) BUN/Creatinine Ratio 20.75 H (12.00-20.00) Ratio Glucose 145 H (70-110) mg/dL Calcium 8.6 L (8.7-10.3) mg/dL Troponin I 0.049 H* (0.000-0.034) ng/mL Total Protein 5.8 L (6.2-8.2) g/dL Albumin 3.1 L (3.8-4.9) g/dL Albumin/Globulin Ratio 1.15 L (1.60-3.17) Ratio Assessment and Plan Assessment: Acute hypoxemic respiratory failure secondary to an acute exacerbation of chronic systolic congestive heart failure in a patient with a known ejection fraction of 30 to 35% Large right-sided pleural effusion secondary to above, s/p thoracentesis with 1.2 L removed. Fluid analysis and cytology pending Coronary disease with previous stent placements most recently in October 2023 to the mid LAD Ischemic cardiomyopathy Chronic and ongoing tobacco dependence Chronic obstructive pulmonary disease Hypertension Hyperlipidemia History of CVA/TIA Plan: The patient was seen and evaluated Chest x-ray, echocardiogram, labs and medications reviewed Currently stable and on room air Fluid analysis and cytology pending Continue with IV diuretics Increase her activity as tolerated This patient was seen independently by the pulmonary nurse practitioner address ing pulmonary issues I have personally seen and examined the patient, performed the documentation and the assessment and plan as written. Number of minutes spent on the visit: 24.
--- NOTE | 2024-02-13 12:38 | P.PN ---
Subjective HISTORY OF PRESENT ILLNESS: This is a 68-year-old female with a past medical history significant for coronary artery disease with previous stenting, peripheral vascular disease, hypertension, hyperlipidemia, congestive heart failure, and medication noncompliance. Patient has not been to the office since [address] Wolfe. We have been asked to see the patient in consultation for congestive heart failure. Patient examined at the bedside in the emergency room. Patient states she has been feeling short of breath for the past couple days. She denies having any chest pain or pressure. She also reports swelling in her right lower extremity. She states that when she has swelling only occurs in her right leg and she never has swelling in her left leg. She states that she is supposed to be taking Lasix but has not been taking it for approximately 1 month. DIAGNOSTICS: - EKG not available at the time of this dictation - Chest xray increased consolidative opacification involving right anterior and inferior hemothorax. Findings are most consistent with advancing pneumonia and/or increased loculated pleural effusion. Prominent cardiomegaly appears more conspicuous secondary to improvement in previously noted kyphosis.. - Laboratory data: WBC 8.0. Hemoglobin 12.0. Platelet count 424. Sodium 140. Potassium 4.6. BUN 19. Creatinine 0.94. Troponin negative x 1 - Current home cardiac medication list has not been updated at the time of examination - Most recent echocardiogram obtained in October 2023 revealed ejection fraction 30 to 35%, mild pulmonary hypertension, mild mitral regurgitation, mild tricuspid regurgitation - Cardiac catheterization history: November 06, 2023 with stenting of the mid LAD. Patient has had previous stenting of the left circumflex. 02/13/2024 Patient seen this morning at the bedside. She denies chest pain or pressure. She remains on IV Lasix. Creatinine today 1.2. She reports improvement in her shortness of breath. She continues to have right lower extremity swelling. Right lower extremity Doppler performed which was negative for DVT. Echocardiogram completed revealing ejection fraction 30 to 35%, trace MR, mild to moderate TR. PHYSICAL EXAM: VITAL SIGNS: Reviewed. GENERAL: Well-developed in no acute distress. HEENT: Head is normocephalic. Pupils are equal, round. Sclerae anicteric. Mucous membranes of the mouth are moist. Neck supple. No JVD or thyromegaly LUNGS: Respirations even and unlabored. Lungs diminished HEART: Regular rate and rhythm. S1 and S2 heard. Systolic murmur noted ABDOMEN: Soft. Nondistended. Nontender. EXTREMITIES: Normal range of motion. No clubbing or cyanosis. Peripheral pulses intact. Right lower extremity edema noted NEUROLOGIC: Awake and alert. Oriented x 3. ASSESSMENT: Shortness of breath Acute on chronic heart failure with reduced EF, 30 to 35% Medication noncompliance, patient not taking Lasix as prescribed Acute on chronic right lower extremity swelling, venous Doppler negative for DVT Large right pleural effusion Coronary artery disease with previous stenting of the circumflex and most recent stenting of the mid LAD in October 2023 Hypertension Hyperlipidemia Peripheral vascular disease PLAN: Continue current cardiac medications Continue IV Lasix 40 mg every 12 hours Daily weights, accurate intake and output, and monitoring of kidney function Continue dual antiplatelet therapy with aspirin and Brilinta secondary to recent stenting in October 2023 Further recommendations pending patient course Nurse practitioner note has been reviewed by physician. Signing provider agrees with the documented findings, assessment, and plan of care documented by PRODUCTION FINISHER as a scribe. Objective - Vital Signs Vital signs: Vital Signs Temp 98.1 F 02/13/24 07:20 Pulse 81 02/13/24 09:37 Resp 18 02/13/24 07:20 BP 102/62 02/13/24 07:20 Pulse Ox 93 L 02/13/24 09:37 FiO2 Intake & Output 02/12/24 02/13/24 02/13/24 18:59 06:59 18:59 Intake Total 280 Output Total 400 Balance -120 Weight 61.235 kg 56.1 kg Intake: Oral 280 Output: Urine 400 Other: # Voids 2 - Labs CBC & Chem 7: 02/13/24 05:29 02/13/24 05:29 Labs: Abnormal Lab Results - Last 24 Hours (Table) 02/12/24 02/13/24 Range/Units 12:44 05:29 Potassium 3.4 L (3.5-5.5) mmol/L Anion Gap 13.60 H (4.00-12.00) mmol/L Est GFR (CKD-EPI) 49 L (>=60) BUN/Creatinine Ratio 20.75 H (12.00-20.00) Ratio Glucose 145 H (70-110) mg/dL Calcium 8.6 L (8.7-10.3) mg/dL Troponin I 0.049 H* (0.000-0.034) ng/mL Total Protein 5.8 L (6.2-8.2) g/dL Albumin 3.1 L (3.8-4.9) g/dL Albumin/Globulin Ratio 1.15 L (1.60-3.17) Ratio
[2024-02-13] MEDS: ACETAMINOPHEN TAB 325 MG TAB PO PRN (19:58)
[2024-02-13 22:00] LABS: Glucose, BF Source Pleural Fluid; Glucose, Body Fluid 146 mg/dL; LDH, Body Fluid Source Pleural Fluid; T. Protein, Body Fluid Source Pleural Fluid; Total Protein, Body Fluid >3600 mg/dL
[2024-02-13 22:53] LABS: Appearance,BF Bloody (Clear)
[2024-02-14] MEDS: ONDANSETRON 4 MG/2 ML VIAL IVP PRN (09:20)
--- NOTE | 2024-02-14 10:16 | P.PN ---
Subjective HISTORY OF PRESENT ILLNESS: This is a 68-year-old female with a past medical history significant for coronary artery disease with previous stenting, peripheral vascular disease, hypertension, hyperlipidemia, congestive heart failure, and medication noncompliance. Patient has not been to the office since [address] Wolfe. We have been asked to see the patient in consultation for congestive heart failure. Patient examined at the bedside in the emergency room. Patient states she has been feeling short of breath for the past couple days. She denies having any chest pain or pressure. She also reports swelling in her right lower extremity. She states that when she has swelling only occurs in her right leg and she never has swelling in her left leg. She states that she is supposed to be taking Lasix but has not been taking it for approximately 1 month. DIAGNOSTICS: - EKG not available at the time of this dictation - Chest xray increased consolidative opacification involving right anterior and inferior hemothorax. Findings are most consistent with advancing pneumonia and/or increased loculated pleural effusion. Prominent cardiomegaly appears more conspicuous secondary to improvement in previously noted kyphosis.. - Laboratory data: WBC 8.0. Hemoglobin 12.0. Platelet count 424. Sodium 140. Potassium 4.6. BUN 19. Creatinine 0.94. Troponin negative x 1 - Current home cardiac medication list has not been updated at the time of examination - Most recent echocardiogram obtained in October 2023 revealed ejection fraction 30 to 35%, mild pulmonary hypertension, mild mitral regurgitation, mild tricuspid regurgitation - Cardiac catheterization history: November 06, 2023 with stenting of the mid LAD. Patient has had previous stenting of the left circumflex. 02/13/2024 Patient seen this morning at the bedside. She denies chest pain or pressure. She remains on IV Lasix. Creatinine today 1.2. She reports improvement in her shortness of breath. She continues to have right lower extremity swelling. Right lower extremity Doppler performed which was negative for DVT. Echocardiogram completed revealing ejection fraction 30 to 35%, trace MR, mild to moderate TR. 02/14/2024 Patient examined this morning at the bedside. Patient currently denies chest pain or pressure. She denies shortness of breath. She remains on IV Lasix. Right lower extremity swelling has improved. Patient states she is being discharged from the hospital tomorrow. PHYSICAL EXAM: VITAL SIGNS: Reviewed. GENERAL: Well-developed in no acute distress. HEENT: Head is normocephalic. Pupils are equal, round. Sclerae anicteric. Mucous membranes of the mouth are moist. Neck supple. No JVD or thyromegaly LUNGS: Respirations even and unlabored. Lungs diminished HEART: Regular rate and rhythm. S1 and S2 heard. Systolic murmur noted ABDOMEN: Soft. Nondistended. Nontender. EXTREMITIES: Normal range of motion. No clubbing or cyanosis. Peripheral pulses intact. Right lower extremity edema noted, improved NEUROLOGIC: Awake and alert. Oriented x 3. ASSESSMENT: Shortness of breath Acute on chronic heart failure with reduced EF, 30 to 35% Medication noncompliance, patient not taking Lasix as prescribed Acute on chronic right lower extremity swelling, venous Doppler negative for DVT Large right pleural effusion Coronary artery disease with previous stenting of the circumflex and most recent stenting of the mid LAD in October 2023 Hypertension Hyperlipidemia Peripheral vascular disease PLAN: Continue current cardiac medications Continue IV Lasix 40 mg every 12 hours. Transition to oral diuretics tomorrow. Daily weights, accurate intake and output, and monitoring of kidney function Continue dual antiplatelet therapy with aspirin and Brilinta secondary to recent stenting in October 2023 Patient is stable for discharge from a cardiac standpoint We will sign off. Please reconsult if needed. Nurse practitioner note has been reviewed by physician. Signing provider agrees with the documented findings, assessment, and plan of care documented by PATHOLOGY LABORATORY AIDES TEACHER as a scribe. Objective - Vital Signs Vital signs: Vital Signs Temp 98.0 F 02/14/24 07:25 Pulse 69 02/14/24 07:25 Resp 17 02/14/24 07:25 BP 118/61 02/14/24 07:25 Pulse Ox 99 02/14/24 07:25 FiO2 Intake & Output 02/13/24 02/14/24 02/14/24 18:59 06:59 18:59 Intake Total 360 Balance 360 Weight 56.1 kg 53 kg Intake: Oral 360 Other: Voiding Method Toilet # Voids 3 3 - Labs CBC & Chem 7: 02/13/24 05:29 02/13/24 05:29 Labs: Abnormal Lab Results - Last 24 Hours (Table) 02/13/24 02/13/24 02/13/24 Range/Units 05:29 05:29 09:30 WBC 15.24 H (4.50-10.00) X 10*3/uL RBC 4.09 L (4.10-5.20) X 10*6/uL Hgb 11.8 L (12.0-15.0) g/dL MCHC 30.2 L (32.0-37.0) g/dL RDW 17.3 H (11.5-14.5) % Plt Count 441 H (140-440) X 10*3/uL MPV 9.3 L (9.5-12.2) FL Immature Gran # 0.12 H (0.00-0.04) X 10*3/uL Neutrophils # 13.55 H (1.80-7.70) X 10*3/uL Lymphocytes # 0.52 L (0.90-5.00) X 10*3/uL Monocytes # 1.04 H (0.20-1.00) X 10*3/uL Eosinophils # 0 L (0.04-0.35) X 10*3/uL Potassium 3.4 L (3.5-5.5) mmol/L Anion Gap 13.60 H (4.00-12.00) mmol/L Est GFR (CKD-EPI) 49 L (>=60) BUN/Creatinine Ratio 20.75 H (12.00-20.00) Ratio Glucose 145 H (70-110) mg/dL Calcium 8.6 L (8.7-10.3) mg/dL Total Protein 5.8 L (6.2-8.2) g/dL Albumin 3.1 L (3.8-4.9) g/dL Albumin/Globulin Ratio 1.15 L (1.60-3.17) Ratio Fluid Appearance Bloody A (Clear) Microbiology - Last 24 Hours (Table) 02/13/24 09:30 Gram Stain - Preliminary Pleural Fluid
--- NOTE | 2024-02-14 10:54 | P.PN ---
Subjective Progress Note Date: 02/14/24 She feels better today, shortness of breath has improved, cough has improved, remains afebrile, on room air. Objective - Vital Signs Vital signs: Vital Signs Temp 98.0 F 02/14/24 07:25 Pulse 69 02/14/24 07:25 Resp 17 02/14/24 07:25 BP 118/61 02/14/24 07:25 Pulse Ox 99 02/14/24 07:25 FiO2 Intake & Output 02/13/24 02/14/24 02/14/24 18:59 06:59 18:59 Intake Total 360 Balance 360 Weight 56.1 kg 53 kg Intake: Oral 360 Other: Voiding Method Toilet # Voids 3 3 - Exam Constitutional: No acute distress, conversant, pleasant Eyes: Anicteric sclerae, moist conjunctiva, no lid-lag, PERRLA ENMT: NC/AT,Oropharynx clear, no erythema, exudates Neck:Supple, FROM, no masses, or JVD, No carotid bruits; No thyromegaly Lungs: Creased breath sounds Cardiovascular: Heart regular in rate and rhythm, No murmurs, gallops, or rubs no peripheral edema Abdominal: Soft Nontender, non distended, no guarding, no rebound or rigidity, Normoactive bowel sounds No hepatomegaly, No splenomegaly, No palpable mass No abdominal wall hernia noted Skin: Normal temperature, tone, texture, turgor, No induration No subcutaneous nodules, No rash, lesions, No ulcers Extremities:No digital cyanosis No clubbing, Pedal pulses intact and symmetric al Radial pulses intact and symmetrical Normal gait and station, No calf tenderness Psychiatric: Alert and oriented to person, place and time, Appropriate affect Intact judgement Neuro: Muscles Strength 5/5 in all 4 extremities, Sensation to light touch grossly present throughout, Cranial nerves II-XII grossly intact. No focal sensory deficits - Labs CBC & Chem 7: 02/13/24 05:29 02/13/24 05:29 Labs: Abnormal Lab Results - Last 24 Hours (Table) 02/13/24 Range/Units 09:30 Fluid Appearance Bloody A (Clear) Microbiology - Last 24 Hours (Table) 02/13/24 09:30 Gram Stain - Preliminary Pleural Fluid Assessment and Plan Plan: Acute systolic CHF exacerbation with acute hypoxic respiratory failure, ejection fraction 30 to 35% Significant right-sided pleural effusion Chronic conditions: CAD status post stents, hypertension, hyperlipidemia, COPD Imaging: Chest x-ray in the emergency room revealed a consolidative opacification involving the right anterior and inferior hemithorax with prominent cardiomegaly. EKG revealed normal sinus rhythm at 60 bpm with T wave inversion in leads V4 to V6 with flattening in lead aVF. Data Review: Laboratory evaluation revealed WBC count 8.4, hemoglobin 12.0, glucose of 174, total bilirubin 1.9, troponin 0.020, with platelet count 424. Plan: Continue with Lasix IV 40 mg every 12 hourly, plan to transition to p.o. likely today. Cardiology consulted input appreciated Medications adjusted with adding, metoprolol Aldactone Farxiga and continuing dual antiplatelets with aspirin and Brilinta. Cardiac monitoring Intake and output Daily weights Fluid restriction Consult pulmonary for possible thoracentesis Status post 1.2 fluid removal Duonebs RTC and prn DVT prophylaxis: Lovenox Subq Disposition: Home in the next 1-2 days. CODE STATUS: Full Code Discussed with: Patient Anticipated discharge place: Home
[2024-02-14 11:18] LABS: Basophils # (A) 0.03 X 10*3/uL (0.00-0.10); Basophils % (A) 0.3 %; Eosinophils # (A) 0.11 X 10*3/uL (0.04-0.35); HCT 40.8 % (37.2-46.3); HGB 12.4 g/dL (12.0-15.0); Lymphocytes # (A) 1.28 X 10*3/uL (0.90-5.00); Lymphocytes % (A) 11.8 %; MCH 29.5 pg (27.0-32.0); MCHC 30.4 g/dL (32.0-37.0); MCV 96.9 FL (80.0-97.0); Mean Platelet Volume 9.3 FL (9.5-12.2); Monocytes # (A) 0.85 X 10*3/uL (0.20-1.00); Monocytes % (A) 7.8 %; NRBC Per 100 WBC 0 X 10*3/uL (0.00-0.01); Neutrophils # (A) 8.49 X 10*3/uL (1.80-7.70); Neutrophils % (A) 78.5 %; Platelet Count 435 X 10*3/uL (140-440); RBC 4.21 X 10*6/uL (4.10-5.20); RDW 17.3 % (11.5-14.5); WBC 10.83 X 10*3/uL (4.50-10.00)
[2024-02-14 11:30] LABS: ALT 12 U/L (8-44); AST 23 U/L (13-35); Albumin 3.2 g/dL (3.8-4.9); Alkaline Phosphatase 87 U/L (41-126); BUN/Creat Ratio 19.07 Ratio (12.00-20.00); Blood Urea Nitrogen 26.7 mg/dL (9.0-27.0); Calcium 8.5 mg/dL (8.7-10.3); Carbon Dioxide 27.8 mmol/L (21.6-31.8); Chloride 101 mmol/L (96-109); Globulin 2.9 g/dL (1.6-3.3); Glucose 86 mg/dL (70-110); Potassium 3.3 mmol/L (3.5-5.5); Sodium 143 mmol/L (135-145); Total Bilirubin 0.7 mg/dL (0.3-1.2); Total Protein 6.1 g/dL (6.2-8.2)
--- NOTE | 2024-02-14 11:44 | P.PN ---
Subjective Progress Note Date: 02/14/24 This is a 68-year-old female patient with a known history of hyperlipidemia, hypertension, coronary disease with previous stent placements and recent stent placement November 06, 2019 to the mid LAD, chronic and ongoing tobacco dependence. She also has ischemic cardiomyopathy with impaired left ventricular systolic function ejection fraction of 30 to 35%. She presented here to the emergency room late this morning with complaints of increasing shortness of breath and lower extremity edema right greater than left. She did admit to not taking her Lasix due to causing her to use the restroom too often. Chest x-ray shows a significant right-sided pleural effusion. Ultrasound measures it at 12.3 cm. Over the right lower extremity was negative for DVT. White count 8.4. Hemoglobin 12.0. Platelets 424. Sodium 140. Potassium 4.6. Bicarb 21. BUN 19. Creatinine 0.94. Glucose 174. The patient is seen today in the emergency department. She is awake and alert in no acute distress. She is maintaining O2 saturations in the 90s on 2 L/min per nasal cannula. The patient is seen today February 13, 2024 in follow-up on the regular medical floor. She is currently awake and alert in no acute distress. Maintaining O2 saturations in the 90s on room air. She is afebrile. Hemodynamically stable. Did undergo a right-sided thoracentesis today with 1.2 L of dark fluid removed. Fluid analysis and cytology pending. Follow-up chest x-ray continues to show some remaining fluid in the right lung base. No evidence of pneumothorax. Echocardiogram continues to show impaired left ventricular systolic function with ejection fraction of 30 to 35%. White count 15.2. Hemoglobin 11.8. Platelets 441. Sodium 144. Potassium 3.4. Bicarb 25. BUN 25. Creatinine 1.2. Glucose 145. BNP 49,000. She is continued on Lasix 40 mg IV every 12 hours. Remains on bronchodilators. Lovenox for DVT prophylaxis. Currently in a -120 mL balance. The patient is seen today February 14, 2024 in follow-up on the regular medical floor. She is sitting up in bed. Awake and alert in no acute distress. She is maintaining good O2 saturations in the 90s on room air. No IV fluids. She is breathing easier today compared to yesterday. She did undergo a right-sided thoracentesis with 1.2 L of fluid removed. Fluid analysis appears exudate with a total protein greater than 3.6 and LDH 299. Cytology is pending. Count 10.8. Hemoglobin 12.4. Platelets 435. Sodium 143. Potassium 3.3. Bicarb 28. BUN 27. Creatinine 1.4. Glucose 86. She remains on bronchodilators. Lovenox for DVT prophylaxis. Remains on IV Lasix and Aldactone. No accurate I & O. Objective - Vital Signs Vital signs: Vital Signs Temp 98.0 F 02/14/24 07:25 Pulse 69 02/14/24 07:25 Resp 17 02/14/24 07:25 BP 118/61 02/14/24 07:25 Pulse Ox 99 02/14/24 07:25 FiO2 Intake & Output 02/13/24 02/14/24 02/14/24 18:59 06:59 18:59 Intake Total 360 Balance 360 Weight 56.1 kg 53 kg Intake: Oral 360 Other: Voiding Method Toilet # Voids 3 3 - Exam GENERAL EXAM: Alert, pleasant 68-year-old female, on room air, seen up at the bedside, in no apparent distress. HEAD: Normocephalic. EYES: Normal reaction of pupils, equal size. NOSE: Clear with pink turbinates. THROAT: No erythema or exudates. NECK: No masses, no JVD. CHEST: No chest wall deformity. LUNGS: Equal air entry with crackles in the bilateral bases right greater than left. Dullness. CVS: S1 and S2 normal with no audible murmur, regular rhythm. ABDOMEN: No hepatosplenomegaly, normal bowel sounds, no guarding or rigidity. SPINE: No scoliosis or deformity SKIN: No rashes CENTRAL NERVOUS SYSTEM: No focal deficits, tone is normal in all 4 extremities. EXTREMITIES: There is 1-2+ peripheral edema right greater than left. No clubbing, no cyanosis. Peripheral pulses are intact. - Labs CBC & Chem 7: 02/14/24 06:54 02/14/24 06:54 Labs: Abnormal Lab Results - Last 24 Hours (Table) 02/13/24 02/14/24 02/14/24 Range/Units 09:30 06:54 06:54 WBC 10.83 H (4.50-10.00) X 10*3/uL MCHC 30.4 L (32.0-37.0) g/dL RDW 17.3 H (11.5-14.5) % MPV 9.3 L (9.5-12.2) FL Immature Gran # 0.07 H (0.00-0.04) X 10*3/uL Neutrophils # 8.49 H (1.80-7.70) X 10*3/uL Potassium 3.3 L (3.5-5.5) mmol/L Anion Gap 14.20 H (4.00-12.00) mmol/L Est GFR (CKD-EPI) 41 L (>=60) Calcium 8.5 L (8.7-10.3) mg/dL Total Protein 6.1 L (6.2-8.2) g/dL Albumin 3.2 L (3.8-4.9) g/dL Albumin/Globulin Ratio 1.10 L (1.60-3.17) Ratio Fluid Appearance Bloody A (Clear) Microbiology - Last 24 Hours (Table) 02/13/24 09:30 Gram Stain - Preliminary Pleural Fluid Assessment and Plan Assessment: Acute hypoxemic respiratory failure secondary to an acute exacerbation of chronic systolic congestive heart failure in a patient with a known ejection fraction of 30 to 35% Large right-sided pleural effusion secondary to above, s/p thoracentesis with 1.2 L removed. Fluid analysis reveals exudate and cytology pending Coronary disease with previous stent placements most recently in October 2023 to the mid LAD Ischemic cardiomyopathy Chronic and ongoing tobacco dependence Chronic obstructive pulmonary disease Hypertension Hyperlipidemia History of CVA/TIA Plan: The patient was seen and evaluated Labs and medications reviewed Currently stable and on room air Pleural fluid analysis reveals an exudate Cytology pending Continue with IV diuretics Educated regarding the importance of medication compliance This patient was seen independently by the pulmonary nurse practitioner loree sing pulmonary issues I have personally seen and examined the patient, performed the documentation and the assessment and plan as written. Number of minutes spent on the visit: 23.
--- NOTE | 2024-02-14 18:33 | US ---
EXAMINATION TYPE: US venous doppler duplex LE LT DATE OF EXAM: 02/14/2024 6:00 PM COMPARISON: NONE CLINICAL INDICATION: Female, 68 years old with history of Left leg pain.; Tingling within left foot; On Asprin daily SIDE PERFORMED: Left TECHNIQUE: The lower extremity deep venous system is examined utilizing real time linear array sonog jose with graded compression, doppler sonography and color-flow sonography. VESSELS IMAGED: Common Femoral Vein Deep Femoral Vein Greater Saphenous Vein * Femoral Vein Popliteal Vein Small Saphenous Vein * Proximal Calf Veins (* superficial vessels) Right Leg: NA Left Leg: Negative for DVT IMPRESSION: Grayscale, color doppler, spectral doppler imaging performed of the deep veins of the lo wer extremities. There is normal flow, compressibility, vascular waveforms.
--- NOTE | 2024-02-15 08:15 | P.PN ---
Subjective Progress Note Date: 02/15/24 This is a 68-year-old female patient with a known history of hyperlipidemia, hypertension, coronary disease with previous stent placements and recent stent placement November 06, 2019 to the mid LAD, chronic and ongoing tobacco dependence. She also has ischemic cardiomyopathy with impaired left ventricular systolic function ejection fraction of 30 to 35%. She presented here to the emergency room late this morning with complaints of increasing shortness of breath and lower extremity edema right greater than left. She did admit to not taking her Lasix due to causing her to use the restroom too often. Chest x-ray shows a significant right-sided pleural effusion. Ultrasound measures it at 12.3 cm. Over the right lower extremity was negative for DVT. White count 8.4. Hemoglobin 12.0. Platelets 424. Sodium 140. Potassium 4.6. Bicarb 21. BUN 19. Creatinine 0.94. Glucose 174. The patient is seen today in the emergency department. She is awake and alert in no acute distress. She is maintaining O2 saturations in the 90s on 2 L/min per nasal cannula. The patient is seen today February 13, 2024 in follow-up on the regular medical floor. She is currently awake and alert in no acute distress. Maintaining O2 saturations in the 90s on room air. She is afebrile. Hemodynamically stable. Did undergo a right-sided thoracentesis today with 1.2 L of dark fluid removed. Fluid analysis and cytology pending. Follow-up chest x-ray continues to show some remaining fluid in the right lung base. No evidence of pneumothorax. Echocardiogram continues to show impaired left ventricular systolic function with ejection fraction of 30 to 35%. White count 15.2. Hemoglobin 11.8. Platelets 441. Sodium 144. Potassium 3.4. Bicarb 25. BUN 25. Creatinine 1.2. Glucose 145. BNP 49,000. She is continued on Lasix 40 mg IV every 12 hours. Remains on bronchodilators. Lovenox for DVT prophylaxis. Currently in a -120 mL balance. The patient is seen today February 14, 2024 in follow-up on the regular medical floor. She is sitting up in bed. Awake and alert in no acute distress. She is maintaining good O2 saturations in the 90s on room air. No IV fluids. She is breathing easier today compared to yesterday. She did undergo a right-sided thoracentesis with 1.2 L of fluid removed. Fluid analysis appears exudate with a total protein greater than 3.6 and LDH 299. Cytology is pending. Count 10.8. Hemoglobin 12.4. Platelets 435. Sodium 143. Potassium 3.3. Bicarb 28. BUN 27. Creatinine 1.4. Glucose 86. She remains on bronchodilators. Lovenox for DVT prophylaxis. Remains on IV Lasix and Aldactone. No accurate I & O. The patient is seen today February 15, 2024 in follow-up on the regular medical floor. She is awake and alert in no acute distress. Resting comfortably in bed. Denies any worsening shortness of breath, cough or congestion. She is maintaining good O2 saturations in the 90s on room air. No IV fluids. Pleural fluid cultures pending. Cytology pending. Venous Doppler of the left leg reveals no evidence of DVT. No new labs yet today. She remains on bronchodilators. Oral diuretics. Lovenox for DVT prophylaxis. Objective - Vital Signs Vital signs: Vital Signs Temp 98.4 F 02/15/24 07:00 Pulse 81 02/15/24 07:00 Resp 17 02/15/24 07:00 BP 125/71 02/15/24 07:00 Pulse Ox 100 02/15/24 07:00 FiO2 Intake & Output 02/14/24 02/15/24 02/15/24 18:59 06:59 18:59 Weight 54.295 kg Other: # Voids 1 2 - Exam GENERAL EXAM: Alert, 68-year-old female, on room air, resting in bed, in no apparent distress. HEAD: Normocephalic. EYES: Normal reaction of pupils, equal size. NOSE: Clear with pink turbinates. THROAT: No erythema or exudates. NECK: No masses, no JVD. CHEST: No chest wall deformity. LUNGS: Equal air entry with crackles in the bilateral bases right greater than left. Dullness. CVS: S1 and S2 normal with no audible murmur, regular rhythm. ABDOMEN: No hepatosplenomegaly, normal bowel sounds, no guarding or rigidity. SPINE: No scoliosis or deformity SKIN: No rashes CENTRAL NERVOUS SYSTEM: No focal deficits, tone is normal in all 4 extremities. EXTREMITIES: There is 1-2+ peripheral edema right greater than left. No clubbing, no cyanosis. Peripheral pulses are intact. - Labs CBC & Chem 7: 02/14/24 06:54 02/14/24 06:54 Labs: Abnormal Lab Results - Last 24 Hours (Table) 02/14/24 02/14/24 Range/Units 06:54 06:54 WBC 10.83 H (4.50-10.00) X 10*3/uL MCHC 30.4 L (32.0-37.0) g/dL RDW 17.3 H (11.5-14.5) % MPV 9.3 L (9.5-12.2) FL Immature Gran # 0.07 H (0.00-0.04) X 10*3/uL Neutrophils # 8.49 H (1.80-7.70) X 10*3/uL Potassium 3.3 L (3.5-5.5) mmol/L Anion Gap 14.20 H (4.00-12.00) mmol/L Est GFR (CKD-EPI) 41 L (>=60) Calcium 8.5 L (8.7-10.3) mg/dL Total Protein 6.1 L (6.2-8.2) g/dL Albumin 3.2 L (3.8-4.9) g/dL Albumin/Globulin Ratio 1.10 L (1.60-3.17) Ratio Microbiology - Last 24 Hours (Table) 02/13/24 09:30 Acid Fast Bacilli Smear - Preliminary Pleural Fluid 02/13/24 09:30 Gram Stain - Preliminary Pleural Fluid Body Fluid Culture - Preliminary Assessment and Plan Assessment: Acute hypoxemic respiratory failure secondary to an acute exacerbation of chronic systolic congestive heart failure in a patient with a known ejection fraction of 30 to 35% Large right-sided pleural effusion secondary to above, s/p thoracentesis with 1.2 L removed. Fluid analysis reveals exudate and cytology pending Coronary disease with previous stent placements most recently in October 2023 to the mid LAD Ischemic cardiomyopathy Chronic and ongoing tobacco dependence Chronic obstructive pulmonary disease Hypertension Hyperlipidemia History of CVA/TIA Plan: The patient was seen and evaluated Medications reviewed Currently stable and on room air Pleural fluid cytology pending Continue with oral diuretics Educated regarding the importance of medication compliance Cleared for discharge from the pulmonary standpoint Follow-up in our office for cytology results in 1 week This patient was seen independently by the pulmonary nurse practitioner addressing pulmonary issues I have personally seen and examined the patient, performed the documentation and the assessment and plan as written. Number of minutes spent on the visit: 24.
[2024-02-15] MEDS: FUROSEMIDE 40 MG TAB PO SCH (09:10)
[2024-02-15] MEDS: ENOXAPARIN 30 MG/0.3 ML SYRINGE SQ SCH (09:11)
--- NOTE | 2024-02-15 09:41 | P.GSCN ---
History of Present Illness Consult date: 02/15/24 History of present illness: Patient is a 68-year-old female with past medical history of CHF, coronary artery disease, hypertension, hyperlipidemia COPD and tobacco abuse who presented to the ER with shortness of breath and edema as well as cough. She states that the breathing is what brought her into the hospital. Since being here in the hospital she has had a thoracentesis which has significantly improved her shortness of breath. She states that she has had issues with her legs for a long time, she has had some swelling in her right leg which is improving at this point. She states that on her left leg she has pain and coolness to her feet. She said this has been going on for months. She states she does not have much significant motion of her foot and is not able to ambulate normally. She denies any previous claudication type issues or concerns. She denies any wounds. Past Medical History Past Medical History: Coronary Artery Disease (CAD), CVA/TIA, GERD/Reflux, Hyperlipidemia, Hypertension, Myocardial Infarction (SC), Osteoarthritis (OA), Skin Disorder Additional Past Medical History / Comment(s): hx migraines, TIA- FRACTURED RIGHT ANKLE 1/2 CAST Last Myocardial Infarction Date:: History of Any Multi-Drug Resistant Organisms: MRSA Year Discovered:: 02/21/18 MDRO Source:: NECK Past Surgical History: Heart Catheterization With Stent, Orthopedic Surgery, Tubal Ligation Additional Past Surgical History / Comment(s): left ankle surgery fracture- pins and plate inserted. 2 cardiac stents, neck surgery Past Anesthesia/Blood Transfusion Reactions: No Reported Reaction Date of Last Stent Placement:: 09/2016 Past Psychological History: No Psychological Hx Reported Smoking Status: Current every day smoker Past Alcohol Use History: Occasional Additional Past Alcohol Use History / Comment(s): started smoking at age 16(1970) and quit 2017, smoked 2 ppd.STARTED SMOKING 2019 SMOKING 1/2 PPD quit smoking a few weeks ago (08/2021) Past Drug Use History: None Reported Additional Drug Use History / Comment(s): OCCASIONAL USE OF MARIJUANA - Past Family History Mother Family Medical History: Hypertension, Myocardial Infarction (SC) Sister(s) Family Medical History: CVA/TIA, Hypertension, Myocardial Infarction (SC) Father Family Medical History: Cancer Additional Family Medical History / Comment(s): colon CA Brother(s) Family Medical History: Coronary Artery Disease (CAD), CVA/TIA Additional Family Medical History / Comment(s): CABG Medications and Allergies Home Medications Medication Instructions Recorded Confirmed Type Aspirin 81 mg PO DAILY #90 tab 11/07/23 02/12/24 Rx Atorvastatin [Lipitor] 80 mg PO DAILY #0 11/07/23 02/12/24 Rx Furosemide [Lasix] 40 mg PO DAILY #90 tab 11/07/23 02/12/24 Rx Losartan [Cozaar] 100 mg PO DAILY #180 tab 11/07/23 02/12/24 Rx Metoprolol Tartrate [Lopressor] 50 mg PO BID #180 tab 11/07/23 02/12/24 Rx Nitroglycerin Sl Tabs [Nitrostat] 0.4 mg SUBLINGUAL Q5M PRN #100 tab 11/07/23 02/12/24 Rx hydrALAZINE HCL [Apresoline] 25 mg PO BID #180 tab 11/07/23 02/12/24 Rx Diclofenac Sodium Gel [Voltaren 1% 4 gm TOPICAL QID PRN #100 gm 12/11/23 02/12/24 Rx Gel] methocarbamoL [Robaxin-750] 1,500 mg PO TID PRN #30 tab 12/11/23 02/12/24 Rx Allergies Allergy/AdvReac Type Severity Reaction Status Date / Time No Known Allergies Allergy Verified 02/12/24 09:51 Surgical - Exam Vital Signs Temp Pulse Resp BP Pulse Ox 98.3 F 85 20 127/84 98 02/12/24 02:18 02/12/24 02:18 02/12/24 02:18 02/12/24 02:18 02/12/24 02:18 General is a pleasant cooperative female in no acute distress. Heart appears regular at this time lungs are diminished but clear. Abdomen is soft. Difficult to palpate femoral pulses. Nonpalpable pedal pulses. Left foot mildly more cool. Diminished motor or sensory. Diminished ankle flexion. Results - Labs 02/14/24 06:54 02/14/24 06:54 Abnormal Lab Results - Last 24 Hours (Table) 02/14/24 02/14/24 Range/Units 06:54 06:54 WBC 10.83 H (4.50-10.00) X 10*3/uL MCHC 30.4 L (32.0-37.0) g/dL RDW 17.3 H (11.5-14.5) % MPV 9.3 L (9.5-12.2) FL Immature Gran # 0.07 H (0.00-0.04) X 10*3/uL Neutrophils # 8.49 H (1.80-7.70) X 10*3/uL Potassium 3.3 L (3.5-5.5) mmol/L Anion Gap 14.20 H (4.00-12.00) mmol/L Est GFR (CKD-EPI) 41 L (>=60) Calcium 8.5 L (8.7-10.3) mg/dL Total Protein 6.1 L (6.2-8.2) g/dL Albumin 3.2 L (3.8-4.9) g/dL Albumin/Globulin Ratio 1.10 L (1.60-3.17) Ratio Microbiology - Last 24 Hours (Table) 02/13/24 09:30 Acid Fast Bacilli Smear - Preliminary Pleural Fluid 02/13/24 09:30 Gram Stain - Preliminary Pleural Fluid Body Fluid Culture - Preliminary Diabetes panel 02/14/24 Range/Units 06:54 Sodium 143 (135-145) mmol/L Potassium 3.3 L (3.5-5.5) mmol/L Chloride 101 (96-109) mmol/L Carbon Dioxide 27.8 (21.6-31.8) mmol/L BUN 26.7 (9.0-27.0) mg/dL Creatinine 1.4 (0.6-1.5) mg/dL Glucose 86 (70-110) mg/dL Calcium 8.5 L (8.7-10.3) mg/dL AST 23 (13-35) U/L ALT 12 (8-44) U/L Alkaline Phosphatase 87 (41-126) U/L Total Protein 6.1 L (6.2-8.2) g/dL Albumin 3.2 L (3.8-4.9) g/dL Calcium panel 02/14/24 Range/Units 06:54 Calcium 8.5 L (8.7-10.3) mg/dL Albumin 3.2 L (3.8-4.9) g/dL Pituitary panel 02/14/24 Range/Units 06:54 Sodium 143 (135-145) mmol/L Potassium 3.3 L (3.5-5.5) mmol/L Chloride 101 (96-109) mmol/L Carbon Dioxide 27.8 (21.6-31.8) mmol/L BUN 26.7 (9.0-27.0) mg/dL Creatinine 1.4 (0.6-1.5) mg/dL Glucose 86 (70-110) mg/dL Calcium 8.5 L (8.7-10.3) mg/dL Adrenal panel 02/14/24 Range/Units 06:54 Sodium 143 (135-145) mmol/L Potassium 3.3 L (3.5-5.5) mmol/L Chloride 101 (96-109) mmol/L Carbon Dioxide 27.8 (21.6-31.8) mmol/L BUN 26.7 (9.0-27.0) mg/dL Creatinine 1.4 (0.6-1.5) mg/dL Glucose 86 (70-110) mg/dL Calcium 8.5 L (8.7-10.3) mg/dL Total Bilirubin 0.7 (0.3-1.2) mg/dL AST 23 (13-35) U/L ALT 12 (8-44) U/L Alkaline Phosphatase 87 (41-126) U/L Total Protein 6.1 L (6.2-8.2) g/dL Albumin 3.2 L (3.8-4.9) g/dL Assessment and Plan Assessment: Likely severe peripheral vascular disease, chronic at this time CHF exacerbation Coronary artery disease Hypertension Tobacco abuse Plan: Will plan to obtain lower extremity arterial images. Long discussion had with patient about the chronicity of this issue, can continue with outpatient workup as there is likely no significant acute occlusion given the history. After discussion with patient about implications of arterial disease in the periphery, she "does not want to go through all that " with any sort of bypass. When discussion had regarding potential for amputation if left untreated she states that "she came into this world at 2 feet and she will leave to feet". This was reemphasized and she states that even if it was life-threatening she would not undergo an amputation. Will obtain ABIs to see if there is any revascularization attempts that may be beneficial to the patient overall, likely will need angiogram versus CT scan
[2024-02-15 10:11] LABS: Basophils # (A) 0.02 X 10*3/uL (0.00-0.10); Basophils % (A) 0.2 %; Eosinophils # (A) 0.22 X 10*3/uL (0.04-0.35); HCT 39.6 % (37.2-46.3); HGB 11.6 g/dL (12.0-15.0); Lymphocytes # (A) 0.99 X 10*3/uL (0.90-5.00); Lymphocytes % (A) 9.2 %; MCH 28.7 pg (27.0-32.0); MCHC 29.3 g/dL (32.0-37.0); Mean Platelet Volume 9.6 FL (9.5-12.2); Monocytes # (A) 0.73 X 10*3/uL (0.20-1.00); Monocytes % (A) 6.8 %; NRBC Per 100 WBC 0 X 10*3/uL (0.00-0.01); Neutrophils # (A) 8.78 X 10*3/uL (1.80-7.70); Neutrophils % (A) 81.3 %; Platelet Count 472 X 10*3/uL (140-440); RBC 4.04 X 10*6/uL (4.10-5.20); RDW 17.2 % (11.5-14.5); WBC 10.79 X 10*3/uL (4.50-10.00)
[2024-02-15 10:17] LABS: ALT 11 U/L (8-44); AST 21 U/L (13-35); Albumin/Globulin Ratio 1.15 Ratio (1.60-3.17); Alkaline Phosphatase 87 U/L (41-126); BUN/Creat Ratio 22.29 Ratio (12.00-20.00); Blood Urea Nitrogen 31.2 mg/dL (9.0-27.0); Calcium 8.2 mg/dL (8.7-10.3); Chloride 100 mmol/L (96-109); Globulin 2.6 g/dL (1.6-3.3); Glucose 106 mg/dL (70-110); Potassium 3.4 mmol/L (3.5-5.5); Sodium 143 mmol/L (135-145); Total Bilirubin 0.6 mg/dL (0.3-1.2); Total Protein 5.6 g/dL (6.2-8.2)
--- NOTE | 2024-02-15 11:23 | US ---
EXAMINATION TYPE: US arterial LE multi level DATE OF EXAM: 02/15/2024 10:59 AM CLINICAL INDICATION: Female, 68 years old with history of left foot cool, pad; Left foot is cold, toe s area discolored. History of: Smoker: Prev Hypertension: Yes Diabetic: No Hyperlipidemia: Yes TIA/CVA: No Previous Vascular Surgery: Yes, stents in heart and left leg CAD: yes [place]: Yes Vascular Ulcers: No Claudication: Left Gangrene: No Right Brachial Pressure: 103 Left Brachial Pressure: Def due to IV Ankle-Brachial Indices: Right: 0.62 Left: Could not hear TYPE DISK QUALITY CONTROL SUPERVISOR or DPA. Spent over 30 minutes trying to hear the left TYPE DISK QUALITY CONTROL SUPERVISOR or DPA. (Vessel hardening > 1.4; Normal 0.9 - 1.4, Moderate 0.7 - 0.9, Severe 0.5-0.7) IMPRESSION: 1. Ankle-brachial indices suggestive of moderate peripheral vascular disease in the right. 2. Nondiagnostic left Ankle-brachial index.
--- NOTE | 2024-02-15 16:34 | P.PN ---
Subjective Progress Note Date: 02/15/24 No new complaints. Seen by vascular surgeyr for poor perfusion in extremity, and they ordered ABIs - pending. Gen: In NAD, non-toxic HEENT: normocephalic, atraumatic, hearing acuity is intant, mucous membranes moist CVS: Poor perfusion to the left lower extremity, no pitting edema, Respiratory: symmetric chest expansion, no accessory muscle use, GI: soft, NTTP, ND, : no suprapubic tenderness, no CVA tenderness MSK/Derm: no rashes, cyanosis Neuro: CN II-XII intact, no motor weakness, Psych: cooperative, euthymic mood, judgment and insight is intact Hospital course: Patient is a 68-year-old female with a PMH of systolic CHF EF 30 to 35%, CAD with stents, hypertension, hyperlipidemia, COPD, and tobacco abuse who presented to the emergency room with complaints of lower extremity edema, shortness of breath, and cough. Chest x-ray in the emergency room revealed a consolidative opacification involving the right anterior and inferior hemithorax with prominent cardiomegaly. EKG revealed normal sinus rhythm at 60 bpm with T wave inversion in leads V4 to V6 with flattening in lead aVF. Laboratory evaluation revealed WBC count 8.4, hemoglobin 12.0, glucose of 174, total bilirubin 1.9, troponin 0.020, with platelet count 424. Assessment/plan: Acute systolic CHF exacerbation with acute hypoxic respiratory failure, ejection fraction 30 to 35% Significant right-sided pleural effusion -cardiology evaluating patient -lasix PO -I/Os, valentine dacosta -pulmonology consulted, pt is s/p thoracentesis, which is exudative, cytology pending -ivet PAD -vascular surgery consulted -ABIs ordered, pending Chronic conditions: CAD status post stents, hypertension, hyperlipidemia, COPD -home meds reviewed and reconciled DVT prophylaxis: Lovenox Subq Disposition: Home tomorrow CODE STATUS: Full Code Discussed with: Patient Anticipated discharge place: Home Objective - Vital Signs Vital signs: Vital Signs Temp 98.4 F 02/15/24 07:00 Pulse 81 02/15/24 07:00 Resp 19 02/15/24 09:21 BP 103/46 02/15/24 09:10 Pulse Ox 98 02/15/24 09:37 FiO2 Intake & Output 0602/15/24 02/15/24 18:59 06:59 18:59 Weight 54.295 kg Other: # Voids 1 2 - Labs CBC & Chem 7: 02/15/24 06:56 02/15/24 06:56 Labs: Abnormal Lab Results - Last 24 Hours (Table) 02/15/24 02/15/24 Range/Units 06:56 06:56 WBC 10.79 H (4.50-10.00) X 10*3/uL RBC 4.04 L (4.10-5.20) X 10*6/uL Hgb 11.6 L (12.0-15.0) g/dL MCV 98.0 H (80.0-97.0) FL MCHC 29.3 L (32.0-37.0) g/dL RDW 17.2 H (11.5-14.5) % Plt Count 472 H (140-440) X 10*3/uL Immature Gran # 0.05 H (0.00-0.04) X 10*3/uL Neutrophils # 8.78 H (1.80-7.70) X 10*3/uL Potassium 3.4 L (3.5-5.5) mmol/L Anion Gap 14.00 H (4.00-12.00) mmol/L BUN 31.2 H (9.0-27.0) mg/dL Est GFR (CKD-EPI) 41 L (>=60) BUN/Creatinine Ratio 22.29 H (12.00-20.00) Ratio Calcium 8.2 L (8.7-10.3) mg/dL Total Protein 5.6 L (6.2-8.2) g/dL Albumin 3.0 L (3.8-4.9) g/dL Albumin/Globulin Ratio 1.15 L (1.60-3.17) Ratio Microbiology - Last 24 Hours (Table) 02/13/24 09:30 Acid Fast Bacilli Smear - Preliminary Pleural Fluid 02/13/24 09:30 Gram Stain - Preliminary Pleural Fluid Body Fluid Culture - Preliminary
[2024-02-15] MEDS: MORPHINE SULFATE 2 MG/ML SYRINGE IVP PRN (22:27)
--- NOTE | 2024-02-16 09:11 | P.PN ---
Subjective Progress Note Date: 02/16/24 Patient seen and examined. Still having some left lower extremity pain. The same as it has been for the past few months. Significant. Denies any issues otherwise Objective - Vital Signs Vital signs: Vital Signs Temp 98.1 F 02/16/24 06:52 Pulse 76 02/16/24 06:52 Resp 17 02/16/24 06:52 BP 138/64 02/16/24 06:52 Pulse Ox 95 02/16/24 06:52 FiO2 Intake & Output 02/15/24 02/16/24 02/16/24 18:59 06:59 18:59 Intake Total 240 Balance 240 Weight 54.5 kg Intake: Oral 240 Other: Voiding Method Toilet # Voids 2 2 - Exam General is a pleasant cooperative female in no acute distress. Heart appears regular at this time lungs are diminished but clear. Abdomen is soft. weakly palpable right radial pulse, easily palpable left radial pulse.. Difficult to palpate femoral pulses. Nonpalpable pedal pulses. Left foot mildly more cool. Diminished motor or sensory. Diminished ankle flexion. - Labs CBC & Chem 7: 02/15/24 06:56 02/15/24 06:56 Labs: Abnormal Lab Results - Last 24 Hours (Table) 02/15/24 02/15/24 Range/Units 06:56 06:56 WBC 10.79 H (4.50-10.00) X 10*3/uL RBC 4.04 L (4.10-5.20) X 10*6/uL Hgb 11.6 L (12.0-15.0) g/dL MCV 98.0 H (80.0-97.0) FL MCHC 29.3 L (32.0-37.0) g/dL RDW 17.2 H (11.5-14.5) % Plt Count 472 H (140-440) X 10*3/uL Immature Gran # 0.05 H (0.00-0.04) X 10*3/uL Neutrophils # 8.78 H (1.80-7.70) X 10*3/uL Potassium 3.4 L (3.5-5.5) mmol/L Anion Gap 14.00 H (4.00-12.00) mmol/L BUN 31.2 H (9.0-27.0) mg/dL Est GFR (CKD-EPI) 41 L (>=60) BUN/Creatinine Ratio 22.29 H (12.00-20.00) Ratio Calcium 8.2 L (8.7-10.3) mg/dL Total Protein 5.6 L (6.2-8.2) g/dL Albumin 3.0 L (3.8-4.9) g/dL Albumin/Globulin Ratio 1.15 L (1.60-3.17) Ratio Microbiology - Last 24 Hours (Table) 02/13/24 09:30 Gram Stain - Preliminary Pleural Fluid Body Fluid Culture - Preliminary Assessment and Plan Assessment: Likely severe peripheral vascular disease, chronic at this time CHF exacerbation Coronary artery disease Hypertension Tobacco abuse Plan: Ni underwent imaging yesterday which I personally reviewed the ultrasound. There is no visualized waveform or flow at the level of the left ankle. No further imaging was performed up the leg therefore uncertain of the level of disease. Uncertain why full imaging test not performed as ordered. Will plan for CTA abdomen pelvis with runoff to the bilateral lower extremities. Long discussion had with the patient in regards to what she would be willing to undergo, is still adamant she would not have any amputation. Said she would undergo potential revascularization options if there are any. Discussed that she will likely need an angiogram potentially. Again the majority of this is been going on for a few months without significant changes. We discussed that there was likely a point at which there was an acute change however given the chronicity at this point, potential options are limited. Patient does not c urrently have any wounds. Will continue workup and evaluation while patient is inpatient
--- NOTE | 2024-02-16 09:17 | P.PN ---
Subjective Progress Note Date: 02/16/24 This is a 68-year-old female patient with a known history of hyperlipidemia, hypertension, coronary disease with previous stent placements and recent stent placement November 06, 2019 to the mid LAD, chronic and ongoing tobacco dependence. She also has ischemic cardiomyopathy with impaired left ventricular systolic function ejection fraction of 30 to 35%. She presented here to the emergency room late this morning with complaints of increasing shortness of breath and lower extremity edema right greater than left. She did admit to not taking her Lasix due to causing her to use the restroom too often. Chest x-ray shows a significant right-sided pleural effusion. Ultrasound measures it at 12.3 cm. Over the right lower extremity was negative for DVT. White count 8.4. Hemoglobin 12.0. Platelets 424. Sodium 140. Potassium 4.6. Bicarb 21. BUN 19. Creatinine 0.94. Glucose 174. The patient is seen today in the emergency department. She is awake and alert in no acute distress. She is maintaining O2 saturations in the 90s on 2 L/min per nasal cannula. The patient is seen today February 13, 2024 in follow-up on the regular medical floor. She is currently awake and alert in no acute distress. Maintaining O2 saturations in the 90s on room air. She is afebrile. Hemodynamically stable. Did undergo a right-sided thoracentesis today with 1.2 L of dark fluid removed. Fluid analysis and cytology pending. Follow-up chest x-ray continues to show some remaining fluid in the right lung base. No evidence of pneumothorax. Echocardiogram continues to show impaired left ventricular systolic function with ejection fraction of 30 to 35%. White count 15.2. Hemoglobin 11.8. Platelets 441. Sodium 144. Potassium 3.4. Bicarb 25. BUN 25. Creatinine 1.2. Glucose 145. BNP 49,000. She is continued on Lasix 40 mg IV every 12 hours. Remains on bronchodilators. Lovenox for DVT prophylaxis. Currently in a -120 mL balance. The patient is seen today February 14, 2024 in follow-up on the regular medical floor. She is sitting up in bed. Awake and alert in no acute distress. She is maintaining good O2 saturations in the 90s on room air. No IV fluids. She is breathing easier today compared to yesterday. She did undergo a right-sided thoracentesis with 1.2 L of fluid removed. Fluid analysis appears exudate with a total protein greater than 3.6 and LDH 299. Cytology is pending. Count 10.8. Hemoglobin 12.4. Platelets 435. Sodium 143. Potassium 3.3. Bicarb 28. BUN 27. Creatinine 1.4. Glucose 86. She remains on bronchodilators. Lovenox for DVT prophylaxis. Remains on IV Lasix and Aldactone. No accurate I & O. The patient is seen today February 15, 2024 in follow-up on the regular medical floor. She is awake and alert in no acute distress. Resting comfortably in bed. Denies any worsening shortness of breath, cough or congestion. She is maintaining good O2 saturations in the 90s on room air. No IV fluids. Pleural fluid cultures pending. Cytology pending. Venous Doppler of the left leg reveals no evidence of DVT. No new labs yet today. She remains on bronchodilators. Oral diuretics. Lovenox for DVT prophylaxis. The patient is seen today February 16, 2024 in follow-up on the regular medical floor. She is resting comfortably in bed. Awake and alert in no acute distress. She is maintaining O2 saturations in the 90s on 2 L/min per nasal cannula. No IV fluids. She does have complaints of lower extremity edema and pain. Ultrasound of the lower extremities revealed moderate peripheral vascular disease on the right. Nondiagnostic on the left. Vascular services are following. Pleural fluid cultures revealing no growth. Cytology negative for malignancy. Recent labs with white 4. Bicarb 29. BUN 32. Creatinine 1.4. Glucose 106. Objective - Vital Signs Vital signs: Vital Signs Temp 98.1 F 02/16/24 06:52 Pulse 76 02/16/24 06:52 Resp 17 02/16/24 06:52 BP 138/64 02/16/24 06:52 Pulse Ox 95 02/16/24 06:52 FiO2 Intake & Output 02/15/24 02/16/24 02/16/24 18:59 06:59 18:59 Intake Total 240 Balance 240 Weight 54.5 kg Intake: Oral 240 Other: Voiding Method Toilet # Voids 2 2 - Exam GENERAL EXAM: Alert, pleasant 68-year-old female, on 2 L/min per nasal cannula, resting in bed, in no apparent distress. HEAD: Normocephalic. EYES: Normal reaction of pupils, equal size. NOSE: Clear with pink turbinates. THROAT: No erythema or exudates. NECK: No masses, no JVD. CHEST: No chest wall deformity. LUNGS: Equal air entry with crackles in the bilateral bases right greater than left. Dullness. CVS: S1 and S2 normal with no audible murmur, regular rhythm. ABDOMEN: No hepatosplenomegaly, normal bowel sounds, no guarding or rigidity. SPINE: No scoliosis or deformity SKIN: No rashes CENTRAL NERVOUS SYSTEM: No focal deficits, tone is normal in all 4 extremities. EXTREMITIES: There is 1-2+ peripheral edema right greater than left. No clubbing, no cyanosis. Peripheral pulses are intact. - Labs CBC & Chem 7: 02/15/24 06:56 02/15/24 06:56 Labs: Abnormal Lab Results - Last 24 Hours (Table) 02/15/24 02/15/24 Range/Units 06:56 06:56 WBC 10.79 H (4.50-10.00) X 10*3/uL RBC 4.04 L (4.10-5.20) X 10*6/uL Hgb 11.6 L (12.0-15.0) g/dL MCV 98.0 H (80.0-97.0) FL MCHC 29.3 L (32.0-37.0) g/dL RDW 17.2 H (11.5-14.5) % Plt Count 472 H (140-440) X 10*3/uL Immature Gran # 0.05 H (0.00-0.04) X 10*3/uL Neutrophils # 8.78 H (1.80-7.70) X 10*3/uL Potassium 3.4 L (3.5-5.5) mmol/L Anion Gap 14.00 H (4.00-12.00) mmol/L BUN 31.2 H (9.0-27.0) mg/dL Est GFR (CKD-EPI) 41 L (>=60) BUN/Creatinine Ratio 22.29 H (12.00-20.00) Ratio Calcium 8.2 L (8.7-10.3) mg/dL Total Protein 5.6 L (6.2-8.2) g/dL Albumin 3.0 L (3.8-4.9) g/dL Albumin/Globulin Ratio 1.15 L (1.60-3.17) Ratio Microbiology - Last 24 Hours (Table) 02/13/24 09:30 Gram Stain - Preliminary Pleural Fluid Body Fluid Culture - Preliminary Assessment and Plan Assessment: Acute hypoxemic respiratory failure secondary to an acute exacerbation of chronic systolic congestive heart failure in a patient with a known ejection fraction of 30 to 35% Large right-sided pleural effusion secondary to above, s/p thoracentesis with 1.2 L removed. Fluid analysis reveals exudate, cultures revealed no growth and cytology negative for malignancy Coronary disease with previous stent placements most recently in October 2023 to the mid LAD Ischemic cardiomyopathy Chronic lower extremity edema, pain Chronic and ongoing tobacco dependence Chronic obstructive pulmonary disease Hypertension Hyperlipidemia History of CVA/TIA Plan: The patient was seen and evaluated Medications and labs reviewed Ultrasound of the lower extremities reviewed Vascular surgery consulted Currently on 2 L nasal cannula Pleural fluid cytology negative for malignancy Continue diuretics Continue bronchodilators Lovenox for DVT prophylaxis Educated regarding the importance of medication compliance I have personally seen and examined the patient, performed the documentation and the assessment and plan as written. Number of minutes spent on the visit: 10.
--- NOTE | 2024-02-16 12:31 | P.PN ---
Subjective Progress Note Date: 02/16/24 No new complaints. Seen by vascular surgeyr for poor perfusion in extremity, they ordered CT Abd with runoff Gen: In NAD, non-toxic HEENT: normocephalic, atraumatic, hearing acuity is intant, mucous membranes moist CVS: Poor perfusion to the left lower extremity, no pitting edema, Respiratory: symmetric chest expansion, no accessory muscle use, GI: soft, NTTP, ND, : no suprapubic tenderness, no CVA tenderness MSK/Derm: no rashes, cyanosis Neuro: CN II-XII intact, no motor weakness, Psych: cooperative, euthymic mood, judgment and insight is intact Hospital course: Patient is a 68-year-old female with a PMH of systolic CHF EF 30 to 35%, CAD with stents, hypertension, hyperlipidemia, COPD, and tobacco abuse who presented to the emergency room with complaints of lower extremity edema, shortness of breath, and cough. Chest x-ray in the emergency room revealed a consolidative opacification involving the right anterior and inferior hemithorax with prominent cardiomegaly. EKG revealed normal sinus rhythm at 60 bpm with T wave inversion in leads V4 to V6 with flattening in lead aVF. Laboratory evaluation revealed WBC count 8.4, hemoglobin 12.0, glucose of 174, total bilirubin 1.9, troponin 0.020, with platelet count 424. Assessment/plan: Acute systolic CHF exacerbation with acute hypoxic respiratory failure, ejection fraction 30 to 35% Significant right-sided pleural effusion -cardiology evaluating patient -lasix PO -I/Os, dailiy weights -pulmonology consulted, pt is s/p thoracentesis, which is exudative, cytology pending -ivet PAD -vascular surgery consulted -ABIs ordered, inconclusive -CT Abd with runoff Chronic conditions: CAD status post stents, hypertension, hyperlipidemia, COPD -home meds reviewed and reconciled DVT prophylaxis: Lovenox Subq Disposition: Home tomorrow CODE STATUS: Full Code Discussed with: Patient Anticipated discharge place: Home Objective - Vital Signs Vital signs: Vital Signs Temp 98.1 F 02/16/24 06:52 Pulse 76 02/16/24 06:52 Resp 18 02/16/24 08:00 BP 138/64 02/16/24 06:52 Pulse Ox 95 02/16/24 09:54 FiO2 Intake & Output 02/15/24 02/16/24 02/16/24 18:59 06:59 18:59 Intake Total 240 Balance 240 Weight 54.5 kg Intake: Oral 240 Other: Voiding Method Toilet Toilet # Voids 2 2 - Labs CBC & Chem 7: 02/15/24 06:56 02/15/24 06:56 Labs: Microbiology - Last 24 Hours (Table) 02/13/24 09:30 Gram Stain - Preliminary Pleural Fluid Body Fluid Culture - Preliminary
--- NOTE | 2024-02-17 10:47 | P.PN ---
Subjective Progress Note Date: 02/17/24 Principal diagnosis: Peripheral arterial disease Patient is seen and examined today as a follow-up. She is sitting up in the bedside chair. She states she is having a lot of pain in her left lower extremity. She currently denies any shortness of breath or chest pain. She has on 3 L nasal cannula with oxygen saturation 94%. Objective - Vital Signs Vital signs: Vital Signs Temp 97.4 F L 02/17/24 07:50 Pulse 77 02/17/24 07:50 Resp 19 02/17/24 07:50 BP 104/57 02/17/24 07:50 Pulse Ox 94 L 02/17/24 01:58 FiO2 Intake & Output 02/16/24 02/17/24 02/17/24 18:59 06:59 18:59 Weight 58.5 kg Other: Voiding Method Toilet Toilet # Voids 1 2 - Exam General appearance: The patient is alert, oriented, appears in no acute distr ess. HET: Head is normocephalic and atraumatic. Neck: Supple. Heart: Regular. Lungs: Equal expansion, normal respiratory effort. Abdomen: Soft, nondistended. Extremities: Normal skin color and turgor. Weakly palpable right radial pulse, easily palpable left radial pulse.. Difficult to palpate femoral pulses. Nonpalpable pedal pulses. Left foot mildly coller than right. Diminished sensorimotor. Diminished ankle flexion. Neurological: No focal deficits. Alert and oriented x 3. - Labs CBC & Chem 7: 02/15/24 06:56 02/15/24 06:56 Labs: Microbiology - Last 24 Hours (Table) 02/13/24 09:30 Gram Stain - Preliminary Pleural Fluid Body Fluid Culture - Preliminary Assessment and Plan Assessment: 1. Chronic peripheral arterial disease, with previous left SFA stenting 2020 2. Bilateral lower extremity pain, left greater than right 3. CHF exacerbation 4. Coronary artery disease with recent cardiac stents in October 2023 5. Hypertension 6. Tobacco abuse Plan: 1. Will add [place] for pain management 2. Hold Brilinta this evening and tomorrow morning 3. Hold Lovenox tomorrow 02/18/2024 4. N.p.o. after midnight 5. Will plan for angiogram with possible iliac stent 6. Further recommendations forthcoming. Patient will need cardiac clearance prior to any open revascularization. 7. Rest of medical management per primary medical team Thank you for this consultation, we will continue to follow. The impression and plan of care has been dictated as directed. I performed a history and examination of this patient, discussed the same with the dictator. I agree with the dictator's note ,documented as a scribe. Any additional findings or plans will be noted.
[2024-02-17] MEDS: HYDROcodone/APAP 5-325MG 1 EACH TAB PO PRN (10:58)
--- NOTE | 2024-02-17 13:09 | P.PN ---
Subjective Progress Note Date: 02/17/24 No new complaints. Discussed with surgery, planning on angiogram with iliac stent, pending cardiac clearance. Gen: In NAD, non-toxic HEENT: normocephalic, atraumatic, hearing acuity is intant, mucous membranes moist CVS: Poor perfusion to the left lower extremity, no pitting edema, Respiratory: symmetric chest expansion, no accessory muscle use, GI: soft, NTTP, ND, : no suprapubic tenderness, no CVA tenderness MSK/Derm: no rashes, cyanosis Neuro: CN II-XII intact, no motor weakness, Psych: cooperative, euthymic mood, judgment and insight is intact Hospital course: Patient is a 68-year-old female with a PMH of systolic CHF EF 30 to 35%, CAD with stents, hypertension, hyperlipidemia, COPD, and tobacco abuse who presented to the emergency room with complaints of lower extremity edema, shortness of breath, and cough. Chest x-ray in the emergency room revealed a consolidative opacification involving the right anterior and inferior hemithorax with prominent cardiomegaly. EKG revealed normal sinus rhythm at 60 bpm with T wave inversion in leads V4 to V6 with flattening in lead aVF. Laboratory evaluation revealed WBC count 8.4, hemoglobin 12.0, glucose of 174, total bilirubin 1.9, troponin 0.020, with platelet count 424. Assessment/plan: Acute systolic CHF exacerbation with acute hypoxic respiratory failure, ejection fraction 30 to 35% Significant right-sided pleural effusion -cardiology evaluating patient -lasix PO -I/Os, dailiy weights -pulmonology consulted, pt is s/p thoracentesis, which is exudative, cytology pending -ivet PAD -vascular surgery consulted -ABIs ordered, inconclusive -CT Abd with runoff -discussed with surgery, pending angiogram after cardiac clearance -cardiology consult for clearance Chronic conditions: CAD status post stents, hypertension, hyperlipidemia, COPD -home meds reviewed and reconciled DVT prophylaxis: Lovenox Subq Disposition: Home tomorrow CODE STATUS: Full Code Discussed with: Patient Anticipated discharge place: Home Objective - Vital Signs Vital signs: Vital Signs Temp 97.4 F L 02/17/24 07:50 Pulse 77 02/17/24 07:50 Resp 19 02/17/24 07:50 BP 104/57 02/17/24 07:50 Pulse Ox 94 L 02/17/24 07:50 FiO2 Intake & Output 02/16/24 02/17/24 02/17/24 18:59 06:59 18:59 Weight 58.5 kg Other: Voiding Method Toilet Toilet # Voids 1 2 - Labs CBC & Chem 7: 02/15/24 06:56 02/15/24 06:56 Labs: Microbiology - Last 24 Hours (Table) 02/13/24 09:30 Gram Stain - Preliminary Pleural Fluid Body Fluid Culture - Preliminary
--- NOTE | 2024-02-17 14:16 | CT ---
EXAMINATION TYPE: CT angio abd aorta w/Runoff CT DLP: 1328.6 mGycm, Automated exposure control for dose reduction was used. DATE OF EXAM: 02/16/2024 12:47 PM COMPARISON: . . 11/04/2023 CLINICAL INDICATION:Female, 68 years old with history of severe pad; PHH, Severe PAD TECHNIQUE: Multiple thin slice sub-millimeter images were obtained after administration of contrast. 3-D reconstructed images and maximum intensity projection images were obtained. CT angio abd aorta w /Runoff CT Contrast: Contrast used:80 ml mL of Isovue 370 without and with IV Contrast, Oral contrast used: None FINDINGS: CTA Abdomen and pelvis: No evidence for intramural hematoma on noncontrast imaging. Postcontrast imag ing demonstrates atherosclerotic plaque. The origins of the abdominal aorta are patent. There is katherine re atherosclerotic plaque at the origins of the major vessels. Infrarenal abdominal aortic dilation u p to 2.9 cm. More inferiorly there is a weblike appearance of the aorta series 501 image 92. The repr esent atherosclerotic plaque change and less likely dissection. Bilateral common iliac arteries demonstrate severe atherosclerotic plaque. 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 The right common iliac artery and external iliac thyroid demonstra raffi scattered areas of at least 50% stenosis. Left common iliac artery is patent. The proximal portio n of the left external iliac artery on the demonstrates short segment of occlusion/near occlusion up to 99% stenosis series 501 image 138, there is a sliver of contrast seen extending around a plaque. CTA Lower extremities: Right: Scattered atherosclerotic plaque throughout the lower extremity vasculature. The common femora l and superficial femoral arteries are patent. The popliteal artery is patent. Diminutive poorly visu alized vessels of the lower extremity. The anterior tibial artery crosses the ankle. The posterior ti bial artery is poorly visualized without Ankle. Left: Up to 90% % stenosis of the left common femoral artery series 501 image 178 secondary to calcified plaque. The superficial femoral artery is occluded just past its origin series 501 image 2 4 stent graft is also occluded distally. Reconstitution at the popliteal artery. Popliteal artery is diminutive. There is severe atherosclerotic plaque throughout the left lower extremity which is limit s evaluation. The posterior tibial artery crosses the ankle. Anterior tibial artery does not definite ly cross the ankle. CHEST: Small right pleural effusion. The heart is mildly enlarged for size. There is coronary artery calcifications. Aortic valve leaflet calcifications. No evidence of focal consolidation, pneumothorax or pleural effusion. LIVER: Unremarkable GALLBLADDER AND BILE DUCTS: Unremarkable. PANCREAS: Unremarkable. SPLEEN: Unremarkable. ADRENAL GLANDS: Unremarkable. KIDNEYS AND URETERS: Bilateral renal sinus atherosclerosis versus nonobstructing calculi. No obstruct jackie uropathy. Wedge-shaped area of the inferior left renal pole possibly representing infarct. No nilesh dence of hydronephrosis or renal calculus. The ureters are unremarkable. PELVIS BLADDER: Unremarkable REPRODUCTIVE: Unremarkable. ABDOMEN & PELVIS STOMACH AND BOWEL: No evidence of bowel obstruction. Scattered colonic diverticula.r PERITONEUM: No evidence of pneumoperitoneum or free fluid. VASCULATURE: No evidence of aortic aneurysm. MUSCULOSKELETAL: No acute osseous abnormalities, fixation hardware seen in the bilateral lower extrem ities involving the bilateral fibulas and right medial malleolus. Hardware appears intact. LYMPH NODES: No gross evidence for lymphadenopathy. SOFT TISSUE/ABDOMINAL WALL: Unremarkable IMPRESSION Abdomen: * Severe atherosclerotic plaque with patent abdominal vasculature. 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 * Colonic diverticulosis. * Bilateral renal nonobstructing conchae versus atherosclerotic calcifications. * Possible left superior renal pole infarct similar to 11/04/2023. * Moderate right pleural effusion. Right * No evidence for occlusion. * Severe atherosclerotic plaque along its course. * The anterior and posterior tibial arteries are thought to cross the ankle. Left * Left proximal external iliac artery near occlusion with slitlike appearance of the lumen. * Up to 90% % stenosis of the left common femoral artery series 501 image 178 secondary to calcified plaque. * Occlusion of the superficial femoral artery extending past its origin to the popliteal artery. 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 The anterior tibial artery does not definitely cross the ankle.
--- NOTE | 2024-02-17 18:44 | P.PN ---
Subjective Progress Note Date: 02/17/24 This is a 68-year-old female patient with a known history of hyperlipidemia, hypertension, coronary disease with previous stent placements and recent stent placement November 06, 2019 to the mid LAD, chronic and ongoing tobacco dependence. She also has ischemic cardiomyopathy with impaired left ventricular systolic function ejection fraction of 30 to 35%. She presented here to the emergency room late this morning with complaints of increasing shortness of breath and lower extremity edema right greater than left. She did admit to not taking her Lasix due to causing her to use the restroom too often. Chest x-ray shows a significant right-sided pleural effusion. Ultrasound measures it at 12.3 cm. Over the right lower extremity was negative for DVT. White count 8.4. Hemoglobin 12.0. Platelets 424. Sodium 140. Potassium 4.6. Bicarb 21. BUN 19. Creatinine 0.94. Glucose 174. The patient is seen today in the emergency department. She is awake and alert in no acute distress. She is maintaining O2 saturations in the 90s on 2 L/min per nasal cannula. The patient is seen today February 13, 2024 in follow-up on the regular medical floor. She is currently awake and alert in no acute distress. Maintaining O2 saturations in the 90s on room air. She is afebrile. Hemodynamically stable. Did undergo a right-sided thoracentesis today with 1.2 L of dark fluid removed. Fluid analysis and cytology pending. Follow-up chest x-ray continues to show some remaining fluid in the right lung base. No evidence of pneumothorax. Echocardiogram continues to show impaired left ventricular systolic function with ejection fraction of 30 to 35%. White count 15.2. Hemoglobin 11.8. Platelets 441. Sodium 144. Potassium 3.4. Bicarb 25. BUN 25. Creatinine 1.2. Glucose 145. BNP 49,000. She is continued on Lasix 40 mg IV every 12 hours. Remains on bronchodilators. Lovenox for DVT prophylaxis. Currently in a -120 mL balance. The patient is seen today February 14, 2024 in follow-up on the regular medical floor. She is sitting up in bed. Awake and alert in no acute distress. She is maintaining good O2 saturations in the 90s on room air. No IV fluids. She is breathing easier today compared to yesterday. She did undergo a right-sided thoracentesis with 1.2 L of fluid removed. Fluid analysis appears exudate with a total protein greater than 3.6 and LDH 299. Cytology is pending. Count 10.8. Hemoglobin 12.4. Platelets 435. Sodium 143. Potassium 3.3. Bicarb 28. BUN 27. Creatinine 1.4. Glucose 86. She remains on bronchodilators. Lovenox for DVT prophylaxis. Remains on IV Lasix and Aldactone. No accurate I & O. The patient is seen today February 15, 2024 in follow-up on the regular medical floor. She is awake and alert in no acute distress. Resting comfortably in bed. Denies any worsening shortness of breath, cough or congestion. She is maintaining good O2 saturations in the 90s on room air. No IV fluids. Pleural fluid cultures pending. Cytology pending. Venous Doppler of the left leg reveals no evidence of DVT. No new labs yet today. She remains on bronchodilators. Oral diuretics. Lovenox for DVT prophylaxis. The patient is seen today February 16, 2024 in follow-up on the regular medical floor. She is resting comfortably in bed. Awake and alert in no acute distress. She is maintaining O2 saturations in the 90s on 2 L/min per nasal cannula. No IV fluids. She does have complaints of lower extremity edema and pain. Ultrasound of the lower extremities revealed moderate peripheral vascular disease on the right. Nondiagnostic on the left. Vascular services are following. Pleural fluid cultures revealing no growth. Cytology negative for malignancy. Recent labs with white 4. Bicarb 29. BUN 32. Creatinine 1.4. Glucose 106. On 02/17/2024, the patient is being seen for a follow-up. The patient is being treated for an acute hypoxic failure secondary to CHF with a systolic heart failure patient has an ejection fraction of 30 to 35%. The patient has undergone previous thoracentesis with evacuation of around 1.2 L of pleural f luid on the right and the fluid was negative for malignancy. Patient is known to have coronary disease with previous stent placements back in October 2023. The patient is continuing to have some left lower extremity pain. The patient was seen by vascular surgery and the patient was kept n.p.o. after midnight for an angiogram and further intervention regarding suspected peripheral vascular disease. CTA of the aorta with runoff was done today and the patient was found to have left proximal external iliac artery occlusion with a stent like appearance of the lumen and up to 90% stenosis of the left common femoral artery and occlusion of the superficial femoral artery extending past the origin to the popliteal artery. 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 There is colonic diverticulosis. Bilateral nonobstructive renal artery calcifications. Moderate right pleural effusion. As such, Lovenox and Brilinta were placed on hold. She continues to have bilateral lower extremity pain left more than right. Her most recent blood work showed a hemoglobin of 11.6, BUN is at 31 with a creatinine of 1.4. Her GFR is at 41. She remains on Lasix 40 mg p.o. daily. She is also on Aldactone. She is currently on room air oxygen with a pulse ox of 93%. Objective - Vital Signs Vital signs: Vital Signs Temp 97.4 F L 02/17/24 07:50 Pulse 77 02/17/24 07:50 Resp 19 02/17/24 07:50 BP 104/57 02/17/24 07:50 Pulse Ox 94 L 02/17/24 07:50 FiO2 Intake & Output 02/16/24 02/17/24 02/17/24 18:59 06:59 18:59 Weight 58.5 kg Other: Voiding Method Toilet Toilet # Voids 1 2 - Exam GENERAL EXAM: Alert, pleasant 68-year-old female, on room air oxygen, resting in bed, in no apparent distress. HEAD: Normocephalic. EYES: Normal reaction of pupils, equal size. NOSE: Clear with pink turbinates. THROAT: No erythema or exudates. NECK: No masses, no JVD. CHEST: No chest wall deformity. LUNGS: Equal air entry with crackles in the bilateral bases right greater than left. Dullness. CVS: S1 and S2 normal with no audible murmur, regular rhythm. ABDOMEN: No hepatosplenomegaly, normal bowel sounds, no guarding or rigidity. SPINE: No scoliosis or deformity SKIN: No rashes CENTRAL NERVOUS SYSTEM: No focal deficits, tone is normal in all 4 extremities. EXTREMITIES: There is 1-2+ peripheral edema right greater than left. No clubbing, no cyanosis. Peripheral pulses are diminished in lower extremities bilaterally - Labs CBC & Chem 7: 06/08/24 06:56 02/15/24 06:56 Labs: Microbiology - Last 24 Hours (Table) 02/13/24 09:30 Gram Stain - Preliminary Pleural Fluid Body Fluid Culture - Preliminary Assessment and Plan Plan: Acute hypoxemic respiratory failure secondary to an acute exacerbation of chronic systolic congestive heart failure in a patient with a known ejection fraction of 30 to 35% Large right-sided pleural effusion secondary to above, s/p thoracentesis with 1.2 L removed. Fluid analysis reveals exudate, cultures revealed no growth and cytology negative for malignancy Coronary disease with previous stent placements most recently in October 2023 to the mid LAD Ischemic cardiomyopathy Chronic lower pain with cerebrovascular disease and CTA of the aorta with runoff was done today and the patient was found to have left proximal external iliac artery occlusion with a stent like appearance of the lumen and up to 90% stenosis of the left common femoral artery and occlusion of the superficial femoral artery extending past the origin to the popliteal artery. 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 Patient was taken off Brilinta and Lovenox. Continue oxygen flow to maintain saturation above 90% Pleural fluid cytology negative for malignancy Continue diuretics and the patient is currently on a combination of Lasix and Aldactone Continue bronchodilators Overall respiratory status is stable. The patient is a stable right-sided pleural effusion. Will continue to follow.
[2024-02-18] MEDS ORDERED: LIDOCAINE 1% INJ 10MG/ML (20 ML MDV) ONE (09:18)
[2024-02-18] MEDS ORDERED: fentaNYL (PF) 50 MCG/ML 2 ML AMP ONE (09:19)
[2024-02-18] MEDS ORDERED: HEPARIN SODIUM 1,000 UN/ML (10ML VL) ONE (09:19)
[2024-02-18] MEDS: MIDAZOLAM 2 MG/2 ML VIAL IVP ONE ×3 (09:30→10:53)
[2024-02-18] MEDS: fentaNYL (PF) 50 MCG/ML 2 ML AMP IVP ONE ×3 (09:30→10:29)
[2024-02-18] MEDS: SODIUM CHLORIDE 0.9% 500 ML 500 ML IV ONE (09:30)
[2024-02-18] MEDS: LIDOCAINE 1% INJ 10MG/ML (20 ML MDV) SQ ONE (09:32)
--- NOTE | 2024-02-18 09:56 | P.PN ---
Subjective Progress Note Date: 02/18/24 No new complaints. Discussed with surgery, planning on angiogram with iliac stent, pending cardiac clearance. Gen: In NAD, non-toxic HEENT: normocephalic, atraumatic, hearing acuity is intant, mucous membranes moist CVS: Poor perfusion to the left lower extremity, no pitting edema, Respiratory: symmetric chest expansion, no accessory muscle use, GI: soft, NTTP, ND, : no suprapubic tenderness, no CVA tenderness MSK/Derm: no rashes, cyanosis Neuro: CN II-XII intact, no motor weakness, Psych: cooperative, euthymic mood, judgment and insight is intact Hospital course: Patient is a 68-year-old female with a PMH of systolic CHF EF 30 to 35%, CAD with stents, hypertension, hyperlipidemia, COPD, and tobacco abuse who presented to the emergency room with complaints of lower extremity edema, shortness of breath, and cough. Chest x-ray in the emergency room revealed a consolidative opacification involving the right anterior and inferior hemithorax with prominent cardiomegaly. EKG revealed normal sinus rhythm at 60 bpm with T wave inversion in leads V4 to V6 with flattening in lead aVF. Laboratory evaluation revealed WBC count 8.4, hemoglobin 12.0, glucose of 174, total bilirubin 1.9, troponin 0.020, with platelet count 424. Assessment/plan: Acute systolic CHF exacerbation with acute hypoxic respiratory failure, ejection fraction 30 to 35% Significant right-sided pleural effusion -cardiology evaluating patient -lasix PO -I/Os, dailiy weights -pulmonology consulted, pt is s/p thoracentesis, which is exudative, cytology pending -ivet PAD -vascular surgery consulted -ABIs ordered, inconclusive -CT Abd with runoff reviewed -discussed with surgery, pending angiogram after cardiac clearance -cardiology consult for clearance Chronic conditions: CAD status post stents, hypertension, hyperlipidemia, COPD -home meds reviewed and reconciled DVT prophylaxis: Lovenox Subq Disposition: TBD CODE STATUS: Full Code Discussed with: Patient Anticipated discharge place: Home Objective - Vital Signs Vital signs: Vital Signs Temp 98.7 F 02/18/24 06:53 Pulse 77 02/18/24 06:53 Resp 17 02/18/24 06:53 BP 108/58 02/18/24 06:53 Pulse Ox 92 L 02/18/24 08:09 FiO2 Intake & Output 02/17/24 02/18/24 02/18/24 18:59 06:59 18:59 Weight 58 kg Other: # Voids 3 3 - Labs CBC & Chem 7: 02/15/24 06:56 02/15/24 06:56 Labs: Microbiology - Last 24 Hours (Table) 02/13/24 09:30 Gram Stain - Final Pleural Fluid Body Fluid Culture - Final
[2024-02-18] MEDS: HEPARIN SODIUM 1,000 UN/ML (10ML VL) IVP ONE (10:03)
[2024-02-18] MEDS ORDERED: diphenhydrAMINE 50 MG/ML 1 ML VIAL ONE (10:48)
[2024-02-18] MEDS: diphenhydrAMINE 50 MG/ML 1 ML VIAL IVP ONE (10:50)
[2024-02-18] MEDS: ALTEPLASE 2 MG VIAL (CATHFLO) MISCELLANE ONE (11:00)
[2024-02-18] MEDS: ALTEPLASE 10 MG in SODIUM CHLORIDE 0.9% 90 ML IA ONE (11:10)
[2024-02-18] MEDS: HEPARIN SOD,PORK IN 0.45% NACL 25,000 UNIT in 0.45% NACL 1 250ML.BAG IV ONE (11:17)
[2024-02-18 11:30] LABS: Glucose,Whole Blood 106 mg/dL (70-110)
--- NOTE | 2024-02-18 11:53 | P.OP ---
Date of Procedure: 02/18/24 Description of Procedure: Preoperative diagnosis: Subacute on chronic left lower extremity peripheral arterial disease, Segun 4, external iliac artery stenosis, near occlusion Postoperative diagnosis: Same Procedure: #1 ultrasound-guided right common femoral artery access 2. Right iliofemoral angiogram 3. Left selective angiogram, third order to distal popliteal artery 4. Left external iliac artery percutaneous transluminal balloon angioplasty and stent 7 x 40 ever flex 5. IVUS left common iliac artery IVUS left external iliac artery IVUS left common femoral artery IVUS left superficial femoral artery IVUS left popliteal artery 6. Initiation of tPA thrombolysis 7. Moderate conscious sedation 1 hour and 40 minutes with personal monitoring of certified RN administration with hemodynamic monitoring Surgeon: Eliana Infante D.O. EBL: 10 cc IV fluids: See records Urine output: Not measured Drains: None Complications: None immediately apparent Condition: Stable to recovery Operative indication and findings: Patient is a 68-year-old female with a previous left distal superficial femoral artery stent who 2 to 3 months ago began having worsening pain of her left lower extremity. She happened to come to the ER for shortness of breath and was complaining of left lower extremity pain therefore imaging was performed showing high-grade severe stenosis of the left external iliac artery as well as occlusion of the superficial femoral artery with reconstitution at the distal popliteal. Due to this recommendations were to go forward with an angiogram with at least angioplasty of the external iliac and potential evaluation for further intervention versus possible bypass planning. Risks and benefits were discussed with the patient. She seemingly understood and was willing to proceed. Procedure in detail: Patient was taken to the special suite and placed in supine position. Bilateral groins were prepped and draped in usual sterile fashion. A preprocedural timeout performed, all parties were in agreement. Using ultrasound, the right common femoral artery was identified, the skin overlying was anesthetized 1% lidocaine plain. Using Seldinger technique on ultrasound imaging the femoral artery was cannulated. Seldinger technique was used to place a 5 [place] sheath. A right iliofemoral angiogram was performed showing no significant stenosis with moderate disease throughout. Catheters and wires were used to access the contralateral iliac system and a left lower extremity angiogram was performed showing high-grade external iliac stenosis. This area was crossed and reconfirmed luminal gain on imaging. A 7 x 40 ever flex stent was then placed. The sheath was exchanged for an up and over 5 [place] sheath. The stent was postdilated with a 6 x 40 balloon. Repeat imaging of the left lower extremity showed a small area of proximal superficial femoral artery was visualized therefore attempts were made to cross. Eventually after multiple catheters and wires this was successful and luminal gain was confirmed at the level of the distal popliteal artery with selective imaging. Due to the course of the wire as well as stenting itself, the decision was made to utilize the IVUS in order to prove luminal gain through the entirety of the superficial femoral artery. The IVUS was passed through the common iliac, external iliac, common femoral, superficial femoral and popliteal arteries. The external iliac stent appeared widely patent with good apposition. The common femoral artery had severe disease with approximate 50% narrowing. The superficial femoral artery access remained luminal the entirety to the level the popliteal artery. At that point the decision was made to leave a tPA catheter. A 50 cm catheter was placed. The sheath was sutured in place. 2 mg of tPA was instilled into the catheter and the catheter was hooked to tPA. Dressings were placed and the patient was transported to ICU in stable condition.
--- NOTE | 2024-02-18 12:03 | P.PN ---
Subjective Progress Note Date: 02/18/24 This is a 68-year-old female patient with a known history of hyperlipidemia, hypertension, coronary disease with previous stent placements and recent stent placement November 06, 2019 to the mid LAD, chronic and ongoing tobacco dependence. She also has ischemic cardiomyopathy with impaired left ventricular systolic function ejection fraction of 30 to 35%. She presented here to the emergency room late this morning with complaints of increasing shortness of breath and lower extremity edema right greater than left. She did admit to not taking her Lasix due to causing her to use the restroom too often. Chest x-ray shows a significant right-sided pleural effusion. Ultrasound measures it at 12.3 cm. Over the right lower extremity was negative for DVT. White count 8.4. Hemoglobin 12.0. Platelets 424. Sodium 140. Potassium 4.6. Bicarb 21. BUN 19. Creatinine 0.94. Glucose 174. The patient is seen today in the emergency department. She is awake and alert in no acute distress. She is maintaining O2 saturations in the 90s on 2 L/min per nasal cannula. The patient is seen today February 13, 2024 in follow-up on the regular medical floor. She is currently awake and alert in no acute distress. Maintaining O2 saturations in the 90s on room air. She is afebrile. Hemodynamically stable. Did undergo a right-sided thoracentesis today with 1.2 L of dark fluid removed. Fluid analysis and cytology pending. Follow-up chest x-ray continues to show some remaining fluid in the right lung base. No evidence of pneumothorax. Echocardiogram continues to show impaired left ventricular systolic function with ejection fraction of 30 to 35%. White count 15.2. Hemoglobin 11.8. Platelets 441. Sodium 144. Potassium 3.4. Bicarb 25. BUN 25. Creatinine 1.2. Glucose 145. BNP 49,000. She is continued on Lasix 40 mg IV every 12 hours. Remains on bronchodilators. Lovenox for DVT prophylaxis. Currently in a -120 mL balance. The patient is seen today February 14, 2024 in follow-up on the regular medical floor. She is sitting up in bed. Awake and alert in no acute distress. She is maintaining good O2 saturations in the 90s on room air. No IV fluids. She is breathing easier today compared to yesterday. She did undergo a right-sided thoracentesis with 1.2 L of fluid removed. Fluid analysis appears exudate with a total protein greater than 3.6 and LDH 299. Cytology is pending. Count 10.8. Hemoglobin 12.4. Platelets 435. Sodium 143. Potassium 3.3. Bicarb 28. BUN 27. Creatinine 1.4. Glucose 86. She remains on bronchodilators. Lovenox for DVT prophylaxis. Remains on IV Lasix and Aldactone. No accurate I & O. The patient is seen today February 15, 2024 in follow-up on the regular medical floor. She is awake and alert in no acute distress. Resting comfortably in bed. Denies any worsening shortness of breath, cough or congestion. She is maintaining good O2 saturations in the 90s on room air. No IV fluids. Pleural fluid cultures pending. Cytology pending. Venous Doppler of the left leg reveals no evidence of DVT. No new labs yet today. She remains on bronchodilators. Oral diuretics. Lovenox for DVT prophylaxis. The patient is seen today February 16, 2024 in follow-up on the regular medical floor. She is resting comfortably in bed. Awake and alert in no acute distress. She is maintaining O2 saturations in the 90s on 2 L/min per nasal cannula. No IV fluids. She does have complaints of lower extremity edema and pain. Ultrasound of the lower extremities revealed moderate peripheral vascular disease on the right. Nondiagnostic on the left. Vascular services are following. Pleural fluid cultures revealing no growth. Cytology negative for malignancy. Recent labs with white 4. Bicarb 29. BUN 32. Creatinine 1.4. Glucose 106. On 02/17/2024, the patient is being seen for a follow-up. The patient is being treated for an acute hypoxic failure secondary to CHF with a systolic heart failure patient has an ejection fraction of 30 to 35%. The patient has undergone previous thoracentesis with evacuation of around 1.2 L of pleural f luid on the right and the fluid was negative for malignancy. Patient is known to have coronary disease with previous stent placements back in October 2023. The patient is continuing to have some left lower extremity pain. The patient was seen by vascular surgery and the patient was kept n.p.o. after midnight for an angiogram and further intervention regarding suspected peripheral vascular disease. CTA of the aorta with runoff was done today and the patient was found to have left proximal external iliac artery occlusion with a stent like appearance of the lumen and up to 90% stenosis of the left common femoral artery and occlusion of the superficial femoral artery extending past the origin to the popliteal artery. 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 There is colonic diverticulosis. Bilateral nonobstructive renal artery calcifications. Moderate right pleural effusion. As such, Lovenox and Brilinta were placed on hold. She continues to have bilateral lower extremity pain left more than right. Her most recent blood work showed a hemoglobin of 11.6, BUN is at 31 with a creatinine of 1.4. Her GFR is at 41. She remains on Lasix 40 mg p.o. daily. She is also on Aldactone. She is currently on room air oxygen with a pulse ox of 93%. On today's evaluation on 02/18/2024, the patient underwent a right iliofemoral angiogram and selective angiogram of the distal popliteal artery and the patient underwent a external iliac artery percutaneous balloon angioplasty and insertion of a stent and tPA thrombolysis was initiated. Following that, the patient was broken to the intensive care unit. The patient has established external iliac artery patency. The common femoral had severe disease with approximately 50% narrowing. Superficial femoral artery access was established and the patient has a tPA catheter in place. She is calm and comfortable and currently she is on room air oxygen with a pulse ox of 92%. No significant respiratory distress. Blood work from today still pending. The patient remains on aspirin and Brilinta. noted the patient also has CHF with systolic heart failure with an ejection fraction of 30 to 35%. She has undergone previous thoracentesis of the right lung. The rest of the medications remain unchanged. With removal of 1.2 L of pleural fluid. Objective - Vital Signs Vital signs: Vital Signs Temp 98.7 F 02/18/24 06:53 Pulse 77 02/18/24 06:53 Resp 17 02/18/24 06:53 BP 108/58 02/18/24 06:53 Pulse Ox 92 L 02/18/24 08:09 FiO2 Intake & Output 02/17/24 02/18/24 02/18/24 18:59 06:59 18:59 Weight 58 kg Other: # Voids 3 3 - Exam GENERAL EXAM: Alert, pleasant 68-year-old female, on room air oxygen, resting in bed, in no apparent distress. HEAD: Normocephalic. EYES: Normal reaction of pupils, equal size. NOSE: Clear with pink turbinates. THROAT: No erythema or exudates. NECK: No masses, no JVD. CHEST: No chest wall deformity. LUNGS: Equal air entry with crackles in the bilateral bases right greater than left. Dullness. CVS: S1 and S2 normal with no audible murmur, regular rhythm. ABDOMEN: No hepatosplenomegaly, normal bowel sounds, no guarding or rigidity. SPINE: No scoliosis or deformity SKIN: No rashes CENTRAL NERVOUS SYSTEM: No focal deficits, tone is normal in all 4 extremities. EXTREMITIES: There is 1-2+ peripheral edema right greater than left. No clubbing, no cyanosis. Peripheral pulses are diminished in lower extremities bilaterally, RT patient is being infused into the left lower extremity. Dimini shed pulses. No cyanosis or clubbing. - Labs CBC & Chem 7: 02/15/24 06:56 02/15/24 06:56 Labs: Microbiology - Last 24 Hours (Table) 02/13/24 09:30 Gram Stain - Final Pleural Fluid Body Fluid Culture - Final Assessment and Plan Plan: Acute hypoxemic respiratory failure secondary to an acute exacerbation of chronic systolic congestive heart failure in a patient with a known ejection fraction of 30 to 35% Large right-sided pleural effusion secondary to above, s/p thoracentesis with 1.2 L removed. Fluid analysis reveals exudate, cultures revealed no growth and cytology negative for malignancy Coronary disease with previous stent placements most recently in October 2023 to the mid LAD Ischemic cardiomyopathy Chronic lower pain with cerebrovascular disease and CTA of the aorta with runoff was done today and the patient was found to have left proximal external iliac artery occlusion with a stent like appearance of the lumen and up to 90% stenosis of the left common femoral artery and occlusion of the superficial femoral artery extending past the origin to the popliteal artery. 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 The patient was taken to the vascular lab and through a right femoral access, the patient underwent a Right iliofemoral angiogram, Left selective angiogram, third order to distal popliteal artery, Left external iliac artery percutaneous transluminal balloon angioplasty and stent 7 x 40 ever flex. The patient has a tPA [place] into the left lower extremity. The patient to move to the intensive care unit for further monitoring. Chronic and ongoing tobacco dependence Chronic obstructive pulmonary disease Hypertension Hyperlipidemia History of CVA/TIA Plan: Continue tPA per protocol. The patient will be monitored as ordered any bleeding complication in the intensive care unit. Same time, will monitor the flow to the left lower extremity. Currently on room air oxygen. Respiratory status is stable. Pleural fluid cytology negative for malignancy Continue diuretics and the patient is currently on a combination of Lasix and Aldactone Continue bronchodilators Will continue to follow.
[2024-02-18] MEDS: HEPARIN SOD,PORK IN 0.45% NACL 25,000 UNIT in 0.45% NACL 1 250ML.BAG IV SCH (12:21)
[2024-02-18] MEDS: MORPHINE SULFATE 4 MG/ML SYRINGE IVP PRN (12:39)
--- NOTE | 2024-02-18 12:55 | P.PN ---
Subjective Progress Note Date: 02/18/24 HISTORY OF PRESENTING ILLNESS 68-year-old female with PMH of CAD s/p PCI, PAD, HTN, dyslipidemia, CHF, med ication noncompliance, smoking. Cardiac cath in October 2023, stenting of mid LAD with previous stent in LCx which was patent. Echo October 2023 EF 30 to 35%, mild pulm hypertension, mild MR. February 12, 2024, patient was admitted with worsening shortness of breath and dyspnea on exertion. She was found to have right pleural effusion. On February 13, 2024 she underwent thoracentesis with 1.2 L fluid removal. Fluid analysis appears to be exudative in nature with total protein greater than 3.6, LDH 299. Patient reported left lower extremity pain. She is known to have PAD. She was evaluated by vascular surgery. CTA aorta with runoff found to have left external iliac artery occlusion, 90% stenosis of the left common femoral artery, occlusion of superficial femoral artery extending to the origin of popliteal artery on left. 02/18/2024, patient underwent left peripheral angiogram with s/p left external iliac artery percutaneous balloon angioplasty with stent 7 x 40. Common femoral artery had severe disease with 50% narrowing. TPA catheter was placed in. 02/18/2024 Currently patient is stable. She is on room air saturating well. She is not in respiratory distress. She continues to be on aspirin and Brilinta. BP 147/62, heart rate 77, Hemoglobin 11.6, WBC 10.7, BUN 31, creatinine 1.4 which is stable. REVIEW OF SYSTEMS 14 point review of system is negative except what is mentioned above in HPI. PHYSICAL EXAMINATION Head: Normocephalic. Eyes: Sclerae nonicteric. Neck: Brisk carotid upstroke, no jugular venous distention. Lungs: Reduced air entry bilateral bases, mild crackles audible Heart: Regular rate and rhythm, S1-S2, no S3, no murmur or rub. Abdomen: Soft nontender, Extremities: 1+ edema. Neuro: Alert, oritented, no focal deficits. Detailed neuro exam was not per formed. ASSESSMENT Ischemic cardiomyopathy, HFrEF with a EF 30 to 35%, NYHA class III Acute hypoxic respiratory failure due to CHF exacerbation and right-sided pleural effusion, improving Large right pleural effusion, exudative in nature, status post 1.2 L fluid removal CAD s/p PCI October 2023, mid LAD PAD with left lower extremity resting pain. S/p left external iliac balloon angioplasty and stenting, BP catheter COPD Smoking Dyslipidemia Essential hypertension Prior history of CVA/TIA PLAN Continue aspirin, Brilinta 90 mg twice daily, Lipitor 80 mg daily Farxiga 10 mg, metoprolol succinate 50 mg, Aldactone 25 mg daily. DC losartan. Start Entresto 49/51 mg BID from tomorrow Lasix 40 mg daily Ronni Ellington MD, FACC, RPVI Thank you for allowing [facility] to participate in this patient's care. Feel free to reach out in case of any followup questions. Objective - Vital Signs Vital signs: Vital Signs Temp 97.9 F 02/18/24 12:10 Pulse 77 02/18/24 12:10 Resp 17 02/18/24 12:10 BP 147/62 02/18/24 12:10 Pulse Ox 95 02/18/24 12:10 FiO2 Intake & Output 02/17/24 02/18/24 02/18/24 18:59 06:59 18:59 Intake Total 440 Balance 440 Weight 58 kg Intake: IV 200 Oral 240 Other: # Voids 3 3 1 - Labs CBC & Chem 7: 02/15/24 06:56 02/15/24 06:56 Labs: Microbiology - Last 24 Hours (Table) 02/13/24 09:30 Gram Stain - Final Pleural Fluid Body Fluid Culture - Final
[2024-02-18 17:53] LABS: Anisocytosis Slight; Basophils % (A) 0 %; Eosinophils # (A) 0.1 k/uL (0-0.7); Eosinophils % (A) 2 %; HCT 36.4 % (34.0-46.0); HGB 11.1 gm/dL (11.4-16.0); Hypochromasia Marked; Lymphocytes # (A) 0.6 k/uL (1.0-4.8); Lymphocytes % (A) 7 %; MCH 29.4 pg (25.0-35.0); MCHC 30.6 g/dL (31.0-37.0); MCV 96.2 fL (80.0-100.0); Mean Platelet Volume 7.5; Monocytes # (A) 0.6 k/uL (0-1.0); Monocytes % (A) 7 %; Neutrophils # (A) 6.9 k/uL (1.3-7.7); Neutrophils % (A) 82 %; Platelet Count 406 k/uL (150-450); RBC 3.78 m/uL (3.80-5.40); RDW 16.4 % (11.5-15.5); WBC 8.4 k/uL (3.8-10.6)
[2024-02-18] MEDS ORDERED: TICAGRELOR 90 MG TAB PO SCH (21:00)
[2024-02-19 00:23] LABS: Anisocytosis Slight; Basophils % (A) 0 %; Eosinophils # (A) 0.3 k/uL (0-0.7); Eosinophils % (A) 3 %; HCT 35.1 % (34.0-46.0); HGB 10.7 gm/dL (11.4-16.0); Hypochromasia Marked; Lymphocytes # (A) 0.9 k/uL (1.0-4.8); Lymphocytes % (A) 9 %; MCH 28.9 pg (25.0-35.0); MCHC 30.4 g/dL (31.0-37.0); Mean Platelet Volume 8.5; Monocytes # (A) 0.6 k/uL (0-1.0); Monocytes % (A) 6 %; Neutrophils # (A) 7.5 k/uL (1.3-7.7); Neutrophils % (A) 80 %; Platelet Count 395 k/uL (150-450); RDW 16.4 % (11.5-15.5); WBC 9.4 k/uL (3.8-10.6)
[2024-02-19 06:29] LABS: Anisocytosis Slight; Basophils % (A) 0 %; Eosinophils # (A) 0.3 k/uL (0-0.7); Eosinophils % (A) 3 %; HCT 33.3 % (34.0-46.0); HGB 10.4 gm/dL (11.4-16.0); Hypochromasia Marked; Lymphocytes % (A) 10 %; MCH 29.8 pg (25.0-35.0); MCHC 31.3 g/dL (31.0-37.0); MCV 95.1 fL (80.0-100.0); Mean Platelet Volume 7.4; Monocytes # (A) 0.8 k/uL (0-1.0); Monocytes % (A) 8 %; Neutrophils # (A) 7.2 k/uL (1.3-7.7); Neutrophils % (A) 76 %; Platelet Count 366 k/uL (150-450); RDW 16.7 % (11.5-15.5); WBC 9.5 k/uL (3.8-10.6)
[2024-02-19 06:44] LABS: African American GFR (CKD) 44 (>60 ml/min/1.73 sqM); Anion Gap 4 mmol/L; Blood Urea Nitrogen 33 mg/dL (7-17); Calcium 8.3 mg/dL (8.4-10.2); Carbon Dioxide 29 mmol/L (22-30); Chloride 102 mmol/L (98-107); Glucose 107 mg/dL (74-99); Non-African American GFR(CKD) 38 (>60 ml/min/1.73 sqM); Potassium 3.4 mmol/L (3.5-5.1); Sodium 135 mmol/L (137-145)
[2024-02-19] MEDS ORDERED: Potassium Replacement Protocol 1 EACH MISC MISCELLANE PRN (06:47)
[2024-02-19] MEDS: POTASSIUM CHLORIDE ER 20 MEQ TAB.ER PO SCH (07:02)
[2024-02-19] MEDS: SACUBITRIL/VALSARTAN 24 MG-26 MG TABLET PO SCH (08:55)
--- NOTE | 2024-02-19 10:01 | P.PN ---
Progress Note - Text Progress Note Date: 02/19/24 Patient is seen and examined this morning as a follow-up. Yesterday she underwent left external iliac artery stenting and initiation of tPA thrombolysis. She is currently in the ICU on bedrest. She is scheduled for a tPA recheck at 12:00 today. Catheters are in the right groin there is notable oozing around the sites without any evidence of hematoma. Apparently patient had been moving quite a bit through the night despite being told multiple times the risk of moving her right lower extremity or sitting up. Patient states left lower extremity pain is improved. Unable to obtain popliteal PT or DP Doppler signal. Left lower extremity warm to the touch almost to the ankle, left foot remains cool to the touch. Sensorimotor intact. Capillary refill 4 to 5 seconds. Right foot warm to the touch with DP signal present. The impression and plan of care has been dictated as directed. Dr. Infante I performed a history and examination of this patient, discussed the same with the dictator. I agree with the dictator's note ,documented as a scribe. Any additional findings or plans will be noted.
--- NOTE | 2024-02-19 10:43 | P.PN ---
Subjective Progress Note Date: 02/19/24 Pt underwent angiogram with angioplasty, stenting of the left iliac artery with right femoral access. tPA infusion. Noted today is the significant amount of oozing surrounding access site, but no hematoma. Right foot DP and TP pulses are dopplerable. Left foot is dusky with no dopplerable pulses. Gen: In NAD, non-toxic HEENT: normocephalic, atraumatic, hearing acuity is intant, mucous membranes [address] CVS: Poor perfusion to the left lower extremity, with dusky extremity, no pitting edema, Respiratory: symmetric chest expansion, no accessory muscle use, GI: soft, NTTP, ND, : no suprapubic tenderness, no CVA tenderness MSK/Derm: no rashes, cyanosis Neuro: CN II-XII intact, no motor weakness, Psych: cooperative, euthymic mood, judgment and insight is intact Hospital course: Patient is a 68-year-old female with a PMH of systolic CHF EF 30 to 35%, CAD with stents, hypertension, hyperlipidemia, COPD, and tobacco abuse who presented to the emergency room with complaints of lower extremity edema, shortness of breath, and cough. Chest x-ray in the emergency room revealed a consolidative opacification involving the right anterior and inferior hemithorax with prominent cardiomegaly. EKG revealed normal sinus rhythm at 60 bpm with T wave inversion in leads V4 to V6 with flattening in lead aVF. Laboratory evaluation revealed WBC count 8.4, hemoglobin 12.0, glucose of 174, total bilirubin 1.9, troponin 0.020, with platelet count 424. Assessment/plan: Acute systolic CHF exacerbation with acute hypoxic respiratory failure, ejection fraction 30 to 35% Significant right-sided pleural effusion -cardiology evaluating patient -lasix PO -I/Os, dailiy weights -pulmonology consulted, pt is s/p thoracentesis, which is exudative, cytology pending -ivet PAD -vascular surgery consulted -ABIs ordered, inconclusive -CT Abd with runoff reviewed -discussed with surgery, pending angiogram after cardiac clearance -cardiology consult for clearance Chronic conditions: CAD status post stents, hypertension, hyperlipidemia, COPD -home meds reviewed and reconciled DVT prophylaxis: Lovenox Subq on hold Disposition: TBD CODE STATUS: Full Code Discussed with: Patient Anticipated discharge place: Home Objective - Vital Signs Vital signs: Vital Signs Temp 97.7 F 02/19/24 08:00 Pulse 76 02/19/24 10:00 Resp 13 02/19/24 10:00 BP 114/49 02/19/24 10:00 Pulse Ox 99 02/19/24 10:00 FiO2 Intake & Output 02/18/24 02/19/24 02/19/24 18:59 06:59 18:59 Intake Total 940 193.333 40 Output Total 500 400 0 Balance 440 -206.667 40 Weight 53.6 kg Intake: IV 200 120 40 Alteplase 10 mg In Sodium 120 30 Chloride 0.9% 90 ml @ 1 MG/HR 10 mls/hr IA .Q10H ONE Rx#:[id number] Invasive Line 3 10 Intake, IV Titration 73.333 Amount Alteplase 10 mg In Sodium 73.333 Chloride 0.9% 90 ml @ 1 MG/HR 10 mls/hr IA .Q10H ONE Rx#:[id number] Oral 740 Output: Urine 500 400 0 Other: # Voids 1 - Labs CBC & Chem 7: 02/19/24 05:58 02/19/24 05:58 Labs: Abnormal Lab Results - Last 24 Hours (Table) 02/18/24 02/18/24 02/19/24 Range/Units 17:33 17:33 00:12 RBC 3.78 L 3.70 L (3.80-5.40) m/uL Hgb 11.1 L 10.7 L (11.4-16.0) gm/dL Hct (34.0-46.0) % MCHC 30.6 L 30.4 L (31.0-37.0) g/dL RDW 16.4 H 16.4 H (11.5-15.5) % Lymphocytes # 0.6 L 0.9 L (1.0-4.8) k/uL Fibrinogen 802 H (200-500) mg/dL Sodium (137-145) mmol/L Potassium (3.5-5.1) mmol/L BUN (7-17) mg/dL Creatinine (0.52-1.04) mg/dL Glucose (74-99) mg/dL Calcium (8.4-10.2) mg/dL 02/19/24 02/19/24 02/19/24 Range/Units 00:12 05:58 05:58 RBC 3.50 L (3.80-5.40) m/uL Hgb 10.4 L (11.4-16.0) gm/dL Hct 33.3 L (34.0-46.0) % MCHC (31.0-37.0) g/dL RDW 16.7 H (11.5-15.5) % Lymphocytes # (1.0-4.8) k/uL Fibrinogen 663 H (200-500) mg/dL Sodium 135 L (137-145) mmol/L Potassium 3.4 L (3.5-5.1) mmol/L BUN 33 H (7-17) mg/dL Creatinine 1.42 H (0.52-1.04) mg/dL Glucose 107 H (74-99) mg/dL Calcium 8.3 L (8.4-10.2) mg/dL 02/19/24 Range/Units 05:58 RBC (3.80-5.40) m/uL Hgb (11.4-16.0) gm/dL Hct (34.0-46.0) % MCHC (31.0-37.0) g/dL RDW (11.5-15.5) % Lymphocytes # (1.0-4.8) k/uL Fibrinogen 720 H (200-500) mg/dL Sodium (137-145) mmol/L Potassium (3.5-5.1) mmol/L BUN (7-17) mg/dL Creatinine (0.52-1.04) mg/dL Glucose (74-99) mg/dL Calcium (8.4-10.2) mg/dL
[2024-02-19 11:55] LABS: Anisocytosis Slight; Basophils % (A) 0 %; Eosinophils # (A) 0.2 k/uL (0-0.7); Eosinophils % (A) 2 %; HCT 31.6 % (34.0-46.0); HGB 9.5 gm/dL (11.4-16.0); Hypochromasia Marked; Lymphocytes # (A) 0.9 k/uL (1.0-4.8); Lymphocytes % (A) 9 %; MCH 28.7 pg (25.0-35.0); MCHC 30.1 g/dL (31.0-37.0); MCV 95.3 fL (80.0-100.0); Mean Platelet Volume 7.5; Monocytes # (A) 0.6 k/uL (0-1.0); Monocytes % (A) 6 %; Neutrophils # (A) 8.2 k/uL (1.3-7.7); Neutrophils % (A) 81 %; Platelet Count 372 k/uL (150-450); RBC 3.32 m/uL (3.80-5.40); RDW 16.8 % (11.5-15.5); WBC 10.1 k/uL (3.8-10.6)
[2024-02-19] MEDS: fentaNYL (PF) 50 MCG/1 ML VIAL IVP ONE ×3 (13:19→14:19)
[2024-02-19] MEDS: LIDOCAINE 1% INJ 10MG/ML (20 ML MDV) SQ ONE (13:19)
[2024-02-19] MEDS: MIDAZOLAM 2 MG/2 ML VIAL IVP ONE ×2 (13:19→13:43)
--- NOTE | 2024-02-19 13:33 | P.PN ---
Subjective Progress Note Date: 02/19/24 HISTORY OF PRESENTING ILLNESS 68-year-old female with PMH of CAD s/p PCI, PAD, HTN, dyslipidemia, CHF, med ication noncompliance, smoking. Cardiac cath in October 2023, stenting of mid LAD with previous stent in LCx which was patent. Echo October 2023 EF 30 to 35%, mild pulm hypertension, mild MR. February 12, 2024, patient was admitted with worsening shortness of breath and dyspnea on exertion. She was found to have right pleural effusion. On February 13, 2024 she underwent thoracentesis with 1.2 L fluid removal. Fluid analysis appears to be exudative in nature with total protein greater than 3.6, LDH 299. Patient reported left lower extremity pain. She is known to have PAD. She was evaluated by vascular surgery. CTA aorta with runoff found to have left external iliac artery occlusion, 90% stenosis of the left common femoral artery, occlusion of superficial femoral artery extending to the origin of popliteal artery on left. 02/18/2024, patient underwent left peripheral angiogram with s/p left external iliac artery percutaneous balloon angioplasty with stent 7 x 40. Common femoral artery had severe disease with 50% narrowing. TPA catheter was placed in. 02/18/2024 Currently patient is stable. She is on room air saturating well. She is not in respiratory distress. She continues to be on aspirin and Brilinta. BP 147/62, heart rate 77, Hemoglobin 11.6, WBC 10.7, BUN 31, creatinine 1.4 which is stable. 02/19/2024 Blood pressure 111 over 55 mmHg, heart rate 76, sinus rhythm on telemetry. No atrial fibrillation noticed on telemetry for last 24 hours. Hemoglobin 9.5, creatinine 1.4, sodium 135, potassium 3.4, BUN 23. Yesterday we added Entresto and discontinued losartan. Patient has tolerated well with good blood pressure control and no worsening renal function. 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 Infante. PHYSICAL EXAMINATION Head: Normocephalic. Eyes: Sclerae nonicteric. Neck: Brisk carotid upstroke, no jugular venous distention. Lungs: Reduced air entry bilateral bases, mild crackles audible Heart: Regular rate and rhythm, S1-S2, no S3, no murmur or rub. Abdomen: Soft nontender, Extremities: 1+ edema. Neuro: Alert, oritented, no focal deficits. Detailed neuro exam was not performed. ASSESSMENT Perioperative cardiac risk assessment for femoropopliteal bypass surgery Ischemic cardiomyopathy, HFrEF with a EF 30 to 35%, NYHA class III Acute hypoxic respiratory failure due to CHF exacerbation and right-sided pleural effusion, improving Large right pleural effusion, exudative in nature, status post 1.2 L fluid removal CAD s/p PCI October 2023, mid LAD PAD with left lower extremity resting pain. S/p left external iliac balloon angioplasty and stenting, BP catheter COPD Smoking Dyslipidemia Essential hypertension Prior history of CVA/TIA PLAN Patient is at moderate to high risk for a high risk procedure. Patient's cardiac risk factors are nonmodifiable at this time. She does not have obvious cardiovascular contraindication to proceed with the surgery if needed. Continue aspirin, Brilinta 90 mg twice daily, Lipitor 80 mg daily Farxiga 10 mg, metoprolol succinate 50 mg, Aldactone 25 mg daily. Entresto 49/51 mg BID from tomorrow Lasix 40 mg daily Ronni Ellington MD, FACC, RPVI Thank you for allowing [facility] to participate in t his patient's care. Feel free to reach out in case of any followup questions. Objective - Vital Signs Vital signs: Vital Signs Temp 98.4 F 02/19/24 12:00 Pulse 76 02/19/24 12:00 Resp 16 02/19/24 12:00 BP 111/55 02/19/24 12:00 Pulse Ox 97 02/19/24 12:00 FiO2 Intake & Output 02/18/24 02/19/24 02/19/24 18:59 06:59 18:59 Intake Total 940 193.333 70 Output Total 500 400 400 Balance 440 -206.667 -330 Weight 53.6 kg Intake: IV 200 120 70 Alteplase 10 mg In Sodium 120 50 Chloride 0.9% 90 ml @ 1 MG/HR 10 mls/hr IA .Q10H ONE Rx#:[id number] Invasive Line 3 20 Intake, IV Titration 73.333 Amount Alteplase 10 mg In Sodium 73.333 Chloride 0.9% 90 ml @ 1 MG/HR 10 mls/hr IA .Q10H ONE Rx#:[id number] Oral 740 Output: Urine 500 400 400 Other: # Voids 1 - Labs CBC & Chem 7: 02/19/24 11:34 02/19/24 05:58 Labs: Abnormal Lab Results - Last 24 Hours (Table) 02/18/24 02/18/24 02/19/24 Range/Units 17:33 17:33 00:12 RBC 3.78 L 3.70 L (3.80-5.40) m/uL Hgb 11.1 L 10.7 L (11.4-16.0) gm/dL Hct (34.0-46.0) % MCHC 30.6 L 30.4 L (31.0-37.0) g/dL RDW 16.4 H 16.4 H (11.5-15.5) % Neutrophils # (1.3-7.7) k/uL Lymphocytes # 0.6 L 0.9 L (1.0-4.8) k/uL Fibrinogen 802 H (200-500) mg/dL Sodium (137-145) mmol/L Potassium (3.5-5.1) mmol/L BUN (7-17) mg/dL Creatinine (0.52-1.04) mg/dL Glucose (74-99) mg/dL Calcium (8.4-10.2) mg/dL 02/19/24 02/19/24 02/19/24 Range/Units 00:12 05:58 05:58 RBC 3.50 L (3.80-5.40) m/uL Hgb 10.4 L (11.4-16.0) gm/dL Hct 33.3 L (34.0-46.0) % MCHC (31.0-37.0) g/dL RDW 16.7 H (11.5-15.5) % Neutrophils # (1.3-7.7) k/uL Lymphocytes # (1.0-4.8) k/uL Fibrinogen 663 H (200-500) mg/dL Sodium 135 L (137-145) mmol/L Potassium 3.4 L (3.5-5.1) mmol/L BUN 33 H (7-17) mg/dL Creatinine 1.42 H (0.52-1.04) mg/dL Glucose 107 H (74-99) mg/dL Calcium 8.3 L (8.4-10.2) mg/dL 02/19/24 02/19/24 02/19/24 Range/Units 05:58 11:34 11:34 RBC 3.32 L (3.80-5.40) m/uL Hgb 9.5 L (11.4-16.0) gm/dL Hct 31.6 L (34.0-46.0) % MCHC 30.1 L (31.0-37.0) g/dL RDW 16.8 H (11.5-15.5) % Neutrophils # 8.2 H (1.3-7.7) k/uL Lymphocytes # 0.9 L (1.0-4.8) k/uL Fibrinogen 720 H 714 H (200-500) mg/dL Sodium (137-145) mmol/L Potassium (3.5-5.1) mmol/L BUN (7-17) mg/dL Creatinine (0.52-1.04) mg/dL Glucose (74-99) mg/dL Calcium (8.4-10.2) mg/dL
[2024-02-19] MEDS: HEPARIN SODIUM 1,000 UN/ML (10ML VL) IVP ONE (13:35)
--- NOTE | 2024-02-19 13:57 | P.PN ---
Subjective Progress Note Date: 02/19/24 This is a 68-year-old female patient with a known history of hyperlipidemia, hypertension, coronary disease with previous stent placements and recent stent placement November 06, 2019 to the mid LAD, chronic and ongoing tobacco dependence. She also has ischemic cardiomyopathy with impaired left ventricular systolic function ejection fraction of 30 to 35%. She presented here to the emergency room late this morning with complaints of increasing shortness of breath and lower extremity edema right greater than left. She did admit to not taking her Lasix due to causing her to use the restroom too often. Chest x-ray shows a significant right-sided pleural effusion. Ultrasound measures it at 12.3 cm. Over the right lower extremity was negative for DVT. White count 8.4. Hemoglobin 12.0. Platelets 424. Sodium 140. Potassium 4.6. Bicarb 21. BUN 19. Creatinine 0.94. Glucose 174. The patient is seen today in the emergency department. She is awake and alert in no acute distress. She is maintaining O2 saturations in the 90s on 2 L/min per nasal cannula. The patient is seen today February 13, 2024 in follow-up on the regular medical floor. She is currently awake and alert in no acute distress. Maintaining O2 saturations in the 90s on room air. She is afebrile. Hemodynamically stable. Did undergo a right-sided thoracentesis today with 1.2 L of dark fluid removed. Fluid analysis and cytology pending. Follow-up chest x-ray continues to show some remaining fluid in the right lung base. No evidence of pneumothorax. Echocardiogram continues to show impaired left ventricular systolic function with ejection fraction of 30 to 35%. White count 15.2. Hemoglobin 11.8. Platelets 441. Sodium 144. Potassium 3.4. Bicarb 25. BUN 25. Creatinine 1.2. Glucose 145. BNP 49,000. She is continued on Lasix 40 mg IV every 12 hours. Remains on bronchodilators. Lovenox for DVT prophylaxis. Currently in a -120 mL balance. The patient is seen today February 14, 2024 in follow-up on the regular medical floor. She is sitting up in bed. Awake and alert in no acute distress. She is maintaining good O2 saturations in the 90s on room air. No IV fluids. She is breathing easier today compared to yesterday. She did undergo a right-sided thoracentesis with 1.2 L of fluid removed. Fluid analysis appears exudate with a total protein greater than 3.6 and LDH 299. Cytology is pending. Count 10.8. Hemoglobin 12.4. Platelets 435. Sodium 143. Potassium 3.3. Bicarb 28. BUN 27. Creatinine 1.4. Glucose 86. She remains on bronchodilators. Lovenox for DVT prophylaxis. Remains on IV Lasix and Aldactone. No accurate I & O. The patient is seen today February 15, 2024 in follow-up on the regular medical floor. She is awake and alert in no acute distress. Resting comfortably in bed. Denies any worsening shortness of breath, cough or congestion. She is maintaining good O2 saturations in the 90s on room air. No IV fluids. Pleural fluid cultures pending. Cytology pending. Venous Doppler of the left leg reveals no evidence of DVT. No new labs yet today. She remains on bronchodilators. Oral diuretics. Lovenox for DVT prophylaxis. The patient is seen today February 16, 2024 in follow-up on the regular medical floor. She is resting comfortably in bed. Awake and alert in no acute distress. She is maintaining O2 saturations in the 90s on 2 L/min per nasal cannula. No IV fluids. She does have complaints of lower extremity edema and pain. Ultrasound of the lower extremities revealed moderate peripheral vascular disease on the right. Nondiagnostic on the left. Vascular services are following. Pleural fluid cultures revealing no growth. Cytology negative for malignancy. Recent labs with white 4. Bicarb 29. BUN 32. Creatinine 1.4. Glucose 106. On 02/17/2024, the patient is being seen for a follow-up. The patient is being treated for an acute hypoxic failure secondary to CHF with a systolic heart failure patient has an ejection fraction of 30 to 35%. The patient has undergone previous thoracentesis with evacuation of around 1.2 L of pleural f luid on the right and the fluid was negative for malignancy. Patient is known to have coronary disease with previous stent placements back in October 2023. The patient is continuing to have some left lower extremity pain. The patient was seen by vascular surgery and the patient was kept n.p.o. after midnight for an angiogram and further intervention regarding suspected peripheral vascular disease. CTA of the aorta with runoff was done today and the patient was found to have left proximal external iliac artery occlusion with a stent like appearance of the lumen and up to 90% stenosis of the left common femoral artery and occlusion of the superficial femoral artery extending past the origin to the popliteal artery. 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 There is colonic diverticulosis. Bilateral nonobstructive renal artery calcifications. Moderate right pleural effusion. As such, Lovenox and Brilinta were placed on hold. She continues to have bilateral lower extremity pain left more than right. Her most recent blood work showed a hemoglobin of 11.6, BUN is at 31 with a creatinine of 1.4. Her GFR is at 41. She remains on Lasix 40 mg p.o. daily. She is also on Aldactone. She is currently on room air oxygen with a pulse ox of 93%. On today's evaluation on 02/18/2024, the patient underwent a right iliofemoral angiogram and selective angiogram of the distal popliteal artery and the patient underwent a external iliac artery percutaneous balloon angioplasty and insertion of a stent and tPA thrombolysis was initiated. Following that, the patient was broken to the intensive care unit. The patient has established external iliac artery patency. The common femoral had severe disease with approximately 50% narrowing. Superficial femoral artery access was established and the patient has a tPA catheter in place. She is calm and comfortable and currently she is on room air oxygen with a pulse ox of 92%. No significant respiratory distress. Blood work from today still pending. The patient remains on aspirin and Brilinta. noted the patient also has CHF with systolic heart failure with an ejection fraction of 30 to 35%. She has undergone previous thoracentesis of the right lung. The rest of the medications remain unchanged. With removal of 1.2 L of pleural fluid. 02/19/2024, the patient continues to have ischemic changes in the left lower extremity. There is a Doppler signal popliteal pulse on the left, absent posterior tibialis and dorsalis pedis on the left. Adequate pulse in the right lower extremity. The patient continues to have continuous tPA administration through the right femoral artery access and there is some bleeding noted at the catheter insertion site. Nevertheless, the patient has a stable hemoglobin. Noted the patient has undergone the left external iliac artery stenting with subsequent tPA thrombolysis. She is resting comfortably in bed. No significant respiratory difficulties. No evidence of any hematoma formation in the groin area. On examination, she does have cold ischemic changes in her left foot. Pain is improved compared to earlier. The plan is to do follow-up angiography today. Meanwhile, WBC count is at 10.1 hemoglobin 9.5 with a platelet count of 372, BUN is 33 with a creatinine of 1.42 and a sodium level of 135. Pulse ox is 97% liters of oxygen by nasal cannula. Objective - Vital Signs Vital signs: Vital Signs Temp 97.7 F 02/19/24 08:00 Pulse 81 02/19/24 08:00 Resp 14 02/19/24 08:00 BP 118/49 02/19/24 08:00 Pulse Ox 96 02/19/24 08:00 FiO2 Intake & Output 02/18/24 02/19/24 02/19/24 18:59 06:59 18:59 Intake Total 940 193.333 10 Output Total 500 400 Balance 440 -206.667 10 Weight 53.6 kg Intake: IV 200 120 10 Alteplase 10 mg In Sodium 120 Chloride 0.9% 90 ml @ 1 MG/HR 10 mls/hr IA .Q10H ONE Rx#:[id number] Invasive Line 3 10 Intake, IV Titration 73.333 Amount Alteplase 10 mg In Sodium 73.333 Chloride 0.9% 90 ml @ 1 MG/HR 10 mls/hr IA .Q10H ONE Rx#:[id number] Oral 740 Output: Urine 500 400 Other: # Voids 1 - Exam GENERAL EXAM: Alert, pleasant 68-year-old female, on room air oxygen, resting in bed, in no apparent distress. HEAD: Normocephalic. EYES: Normal reaction of pupils, equal size. NOSE: Clear with pink turbinates. THROAT: No erythema or exudates. NECK: No masses, no JVD. CHEST: No chest wall deformity. LUNGS: Equal air entry with crackles in the bilateral bases right greater than left. Dullness. CVS: S1 and S2 normal with no audible murmur, regular rhythm. ABDOMEN: No hepatosplenomegaly, normal bowel sounds, no guarding or rigidity. SPINE: No scoliosis or deformity SKIN: No rashes CENTRAL NERVOUS SYSTEM: No focal deficits, tone is normal in all 4 extremities. EXTREMITIES: There is 1-peripheral edema right greater than left. No clubbing, there is some cyanosis. Absent dorsalis pedis and posterior tibialis on the left. Left foot is cold and ischemic. Doppler signals in the are obtained in the left popliteal artery. Diminished yet present pulse in the right lower extremity. The patient has a right femoral artery catheter for tPA thrombolysis. Some blood oozing around the catheter was noted. - Labs CBC & Chem 7: 02/19/24 11:34 02/19/24 05:58 Labs: Abnormal Lab Results - Last 24 Hours (Table) 02/18/24 02/18/24 02/19/24 Range/Units 17:33 17:33 00:12 RBC 3.78 L 3.70 L (3.80-5.40) m/uL Hgb 11.1 L 10.7 L (11.4-16.0) gm/dL Hct (34.0-46.0) % MCHC 30.6 L 30.4 L (31.0-37.0) g/dL RDW 16.4 H 16.4 H (11.5-15.5) % Lymphocytes # 0.6 L 0.9 L (1.0-4.8) k/uL Fibrinogen 802 H (200-500) mg/dL Sodium (137-145) mmol/L Potassium (3.5-5.1) mmol/L BUN (7-17) mg/dL Creatinine (0.52-1.04) mg/dL Glucose (74-99) mg/dL Calcium (8.4-10.2) mg/dL 02/19/24 02/19/24 02/19/24 Range/Units 00:12 05:58 05:58 RBC 3.50 L (3.80-5.40) m/uL Hgb 10.4 L (11.4-16.0) gm/dL Hct 33.3 L (34.0-46.0) % MCHC (31.0-37.0) g/dL RDW 16.7 H (11.5-15.5) % Lymphocytes # (1.0-4.8) k/uL Fibrinogen 663 H (200-500) mg/dL Sodium 135 L (137-145) mmol/L Potassium 3.4 L (3.5-5.1) mmol/L BUN 33 H (7-17) mg/dL Creatinine 1.42 H (0.52-1.04) mg/dL Glucose 107 H (74-99) mg/dL Calcium 8.3 L (8.4-10.2) mg/dL 02/19/24 Range/Units 05:58 RBC (3.80-5.40) m/uL Hgb (11.4-16.0) gm/dL Hct (34.0-46.0) % MCHC (31.0-37.0) g/dL RDW (11.5-15.5) % Lymphocytes # (1.0-4.8) k/uL Fibrinogen 720 H (200-500) mg/dL Sodium (137-145) mmol/L Potassium (3.5-5.1) mmol/L BUN (7-17) mg/dL Creatinine (0.52-1.04) mg/dL Glucose (74-99) mg/dL Calcium (8.4-10.2) mg/dL Assessment and Plan Plan: Acute hypoxemic respiratory failure secondary to an acute exacerbation of chronic systolic congestive heart failure in a patient with a known ejection fraction of 30 to 35%, currently on 2 L of O2 nasal cannula Large right-sided pleural effusion secondary to above, s/p thoracentesis with 1.2 L removed. Fluid analysis reveals exudate, cultures revealed no growth and cytology negative for malignancy Coronary disease with previous stent placements most recently in October 2023 to the mid LAD Ischemic cardiomyopathy Chronic lower pain with cerebrovascular disease and CTA of the aorta with runoff was done today and the patient was found to have left proximal external iliac artery occlusion with a stent like appearance of the lumen and up to 90% stenosis of the left common femoral artery and occlusion of the superficial femoral artery extending past the origin to the popliteal artery. 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 The patient was taken to the vascular lab and through a right femoral access, the patient underwent a Right iliofemoral angiogram, Left selective angiogram, third order to distal popliteal artery, Left external iliac artery percutaneous transluminal balloon angioplasty and stent 7 x 40 ever flex. The patient has a tPA into the left lower extremity. The patient had tPA thrombolysis of the left lower extremity. On today's evaluation, the left foot remains ischemic with absent dorsalis pedis and posterior tibialis pulses in the left foot is cold and ischemic and painful. Minimal amount of blood oozing at the catheter insertion site in the right femoral artery. Chronic and ongoing tobacco dependence Chronic obstructive pulmonary disease Hypertension Hyperlipidemia History of CVA/TIA Plan: Continue tPA per protocol. The patient will have a follow-up angiography today by vascular surgery. Currently on 2 L of oxygen by nasal cannula Monitor hemoglobin Watch for any signs of bleeding Respiratory status is stable. Pleural fluid cytology negative for malignancy Continue diuretics and the patient is currently on a combination of Lasix and Aldactone Continue bronchodilators Will continue to follow.
[2024-02-19] MEDS: ALTEPLASE 2 MG VIAL (CATHFLO) IA ONE (14:11)
[2024-02-19] MEDS: IOPAMIDOL-250 100ML BTL INTRAARTER ONE (14:27)
[2024-02-19] MEDS: SODIUM CHLORIDE 0.9% 500 ML 500 ML IV ONE (14:28)
--- NOTE | 2024-02-19 14:36 | P.OP ---
Date of Procedure: 02/19/24 Description of Procedure: Preoperative diagnosis: Preble 4 peripheral arterial disease, subacute on chronic occlusion, previously placed catheter for thrombolysis Postoperative diagnosis: Same Procedure: Left lower extremity angiogram via existing catheter Percutaneous transluminal stent placement 6 x 25, 6 x 10 Viabahn covered stent Percutaneous transluminal balloon angioplasty 6 x 100 superficial femoral artery Right iliofemoral angiogram Moderate conscious sedation x 1 hour and 12 minutes, certified RN administration with personal hemodynamic monitoring Surgeon: Eliana Infante D.O. EBL: 10 cc IV fluids: See records Urine output: See records Drains: See records Complications: None Condition: Stable to ICU Operative indication and findings: Patient is a 68-year-old female with previous thrombosis of her left superficial femoral artery who underwent tPA thrombolysis and is back for recheck today. Risk and benefits were discussed. She seemingly understood and was willing to proceed. Procedure in detail: Patient was taken to the special suite placed in supine position. The previously placed catheters were prepped and draped in usual sterile fashion. Preprocedure timeout performed, all parties were in agreement. A Glidewire was placed through the previous catheter. An angiogram was performed showing significant improvement overall but was still some areas of likely more chronic appearing thrombus and stenosis. Due to this decision was made to place a covered stent. A 018 wire was then placed followed by a 6 x 25 then 6 x 10 Viabahn from the superficial femoral artery distally to the bifurcation of the profunda proximally. It was balloon angioplastied with a 6 x 100 balloon. Repeat angiogram was performed showing significant improvement. There is still some chronic appearing disease with atherosclerotic findings at the femoral level. The previously placed stent in the external iliac appeared widely patent. The anterior tibial, posterior tibial appeared patent some extra tPA was instilled as well as nitro when there appeared to be some spasm to the tibial vessels. Final angiogram showed patent vessels to the ankle with weakly biphasic signal at the DP and PT. Catheters and wires were removed. The sheath in the right femoral was exchanged for a 6 [place]ian short sheath. A Vascade closure device was utilized. She maintained tibial signal at the DP and PT on the right.
--- NOTE | 2024-02-19 14:54 | IR ---
EXAMINATION TYPE: IR stent intravas non coronary DATE OF EXAM: 02/19/2024 COMPARISON: NONE HISTORY: Fluoroscopy time. Fluoroscopy was provided to the referring clinician.
[2024-02-19] MEDS: ALTEPLASE 2 MG VIAL (CATHFLO) MISCELLANE ONE (14:55)
[2024-02-19 14:59] VITALS: BMI 23.1
[2024-02-19 15:54] LABS: Anisocytosis Slight; HGB 9.5 gm/dL (11.4-16.0); Hypochromasia Marked; MCH 29.5 pg (25.0-35.0); MCHC 30.6 g/dL (31.0-37.0); MCV 96.5 fL (80.0-100.0); Mean Platelet Volume 7.2; Platelet Count 379 k/uL (150-450); RBC 3.21 m/uL (3.80-5.40); RDW 16.8 % (11.5-15.5); WBC 10.6 k/uL (3.8-10.6)
[2024-02-19] MEDS: TICAGRELOR 90 MG TAB PO SCH (20:10)
[2024-02-20 04:46] LABS: Anisocytosis Slight; HCT 25.9 % (34.0-46.0); Hypochromasia Marked; MCH 29.2 pg (25.0-35.0); MCHC 30.2 g/dL (31.0-37.0); MCV 96.8 fL (80.0-100.0); Mean Platelet Volume 7.5; Platelet Count 310 k/uL (150-450); RBC 2.68 m/uL (3.80-5.40); RDW 16.8 % (11.5-15.5); WBC 11.5 k/uL (3.8-10.6)
[2024-02-20 04:49] LABS: HGB 7.8 gm/dL (11.4-16.0)
[2024-02-20 05:01] LABS: African American GFR (CKD) 32 (>60 ml/min/1.73 sqM); Anion Gap 3 mmol/L; Blood Urea Nitrogen 40 mg/dL (7-17); Carbon Dioxide 27 mmol/L (22-30); Chloride 100 mmol/L (98-107); Glucose 107 mg/dL (74-99); Non-African American GFR(CKD) 28 (>60 ml/min/1.73 sqM); Potassium 4.2 mmol/L (3.5-5.1); Sodium 130 mmol/L (137-145)
[2024-02-20] MEDS: FUROSEMIDE 10 MG/ML 4 ML VIAL IV STA (05:50)
[2024-02-20] MEDS: SODIUM CHLORIDE 0.9% 1,000 ML IV SCH (09:36)
[2024-02-20] MEDS: SODIUM CHLORIDE 0.9% 500 ML 500 ML IV ONE (09:40)
--- NOTE | 2024-02-20 10:10 | P.PN ---
Subjective Progress Note Date: 02/20/24 Principal diagnosis: Peripheral arterial disease Patient is seen and examined today as a follow-up. She remains in the ICU. She is status post tPA for thrombolysis and recheck, iliac stenting and superficial femoral artery stenting. She denies any pain in her right groin. States the pain to her left lower extremity has improved significantly. She has not been up ambulating on that foot according to her nurse. Bilateral lower extremities warm to touch. Patient did have a drop in her hemoglobin to 7.8 no obvious signs of bleeding. She denies any shortness of breath or chest pain, no abdominal pain, nausea or vomiting. Objective - Vital Signs Vital signs: Vital Signs Temp 97.6 F 02/20/24 08:00 Pulse 73 02/20/24 09:00 Resp 15 02/20/24 09:00 BP 109/49 02/20/24 09:00 Pulse Ox 96 02/20/24 09:00 FiO2 Intake & Output 02/19/24 02/20/24 02/20/24 18:59 06:59 18:59 Intake Total 838.397 4274 610 Output Total 775 35 0 Balance -166.799 5033 610 Weight 53.6 kg 63.1 kg Intake: IV 280 30 10 Alteplase 10 mg In Sodium 50 Chloride 0.9% 90 ml @ 1 MG/HR 10 mls/hr IA .Q10H [facility] Rx#:[id number] Invasive Line 2 10 Invasive Line 3 30 30 Intake, IV Titration 232.833 Amount Alteplase 10 mg In Sodium 100 Chloride 0.9% 90 ml @ 1 MG/HR 10 mls/hr IA .Q10H [facility] Rx#:[id number] Heparin Sod,Pork in 0.45% 132.833 NaCl 25,000 unit In 0.45 % NaCl 1 250ml.bag @ 5 mls/hr IV .Q24H [facility] Rx#: [id number] Oral 1250 600 Output: Urine 775 35 0 Other: Voiding Method Indwelling Catheter Indwelling Catheter # Bowel Movements 0 - Exam General appearance: The patient is alert, oriented, appears in no acute distress. HET: Head is normocephalic and atraumatic. Neck: Supple. Heart: Regular. Lungs: Equal expansion, normal respiratory effort. Abdomen: Soft, nondistended. Extremities: Normal skin color and turgor. Right groin without any bleeding, no hematoma. Bilateral lower extremities warm to the touch, good capillary refill and sensorimotor intact. Bilateral PT and DP Doppler signal present. Neurological: No focal deficits. Alert and oriented x 3. - Labs CBC & Chem 7: 02/20/24 04:03 02/20/24 04:03 Labs: Abnormal Lab Results - Last 24 Hours (Table) 02/19/24 02/19/24 02/19/24 Range/Units 11:34 11:34 15:19 WBC (3.8-10.6) k/uL RBC 3.32 L 3.21 L (3.80-5.40) m/uL Hgb 9.5 L 9.5 L (11.4-16.0) gm/dL Hct 31.6 L 31.0 L (34.0-46.0) % MCHC 30.1 L 30.6 L (31.0-37.0) g/dL RDW 16.8 H 16.8 H (11.5-15.5) % Neutrophils # 8.2 H (1.3-7.7) k/uL Lymphocytes # 0.9 L (1.0-4.8) k/uL Fibrinogen 714 H (200-500) mg/dL Sodium (137-145) mmol/L BUN (7-17) mg/dL Creatinine (0.52-1.04) mg/dL Glucose (74-99) mg/dL Calcium (8.4-10.2) mg/dL 02/20/24 02/20/24 Range/Units 04:03 04:03 WBC 11.5 H (3.8-10.6) k/uL RBC 2.68 L (3.80-5.40) m/uL Hgb 7.8 L D (11.4-16.0) gm/dL Hct 25.9 L (34.0-46.0) % MCHC 30.2 L (31.0-37.0) g/dL RDW 16.8 H (11.5-15.5) % Neutrophils # (1.3-7.7) k/uL Lymphocytes # (1.0-4.8) k/uL Fibrinogen (200-500) mg/dL Sodium 130 L (137-145) mmol/L BUN 40 H (7-17) mg/dL Creatinine 1.83 H (0.52-1.04) mg/dL Glucose 107 H (74-99) mg/dL Calcium 8.0 L (8.4-10.2) mg/dL Assessment and Plan Assessment: 1. Clymer 4 peripheral arterial disease, subacute on chronic occlusion status post tPA thrombolysis, left external iliac artery stenting and left SFA stenting 2. Chronic peripheral arterial disease, with previous left SFA stenting 2020 3. Bilateral lower extremity pain, left greater than right 4. CHF exacerbation 5. Coronary artery disease with recent cardiac stents in October 2023 6. Hypertension 7. Tobacco abuse 8. Acute kidney injury Plan: 1. Continue pain management 2. Brilinta resumed 3. May resume Lovenox 4. Heart healthy diet 5. Encourage ambulation 6. Patient may be transferred to cardiac stepdown unit 7. Patient has been cleared from cardiology as moderate to high risk for high risk procedures with out any obvious cardiovascular contraindication to proceed with surgery if needed. 8. Rest of medical management per primary medical team 9. Commend smoking cessation. Offered patient nicotine patch and she agreed. Prescription sent to her local pharmacy. 9. Patient to follow-up with vascular surgery in 2 weeks Thank you for this consultation, patient is cleared from vascular surgery for discharge. The impression and plan of care has been dictated as directed. I performed a history and examination of this patient, discussed the same with the dictator. I agree with the dictator's note ,documented as a scribe. Any additional findings or plans will be noted.
--- NOTE | 2024-02-20 11:46 | P.PN ---
Subjective Progress Note Date: 02/20/24 This is a 68-year-old female patient with a known history of hyperlipidemia, hypertension, coronary disease with previous stent placements and recent stent placement November 06, 2019 to the mid LAD, chronic and ongoing tobacco dependence. She also has ischemic cardiomyopathy with impaired left ventricular systolic function ejection fraction of 30 to 35%. She presented here to the emergency room late this morning with complaints of increasing shortness of breath and lower extremity edema right greater than left. She did admit to not taking her Lasix due to causing her to use the restroom too often. Chest x-ray shows a significant right-sided pleural effusion. Ultrasound measures it at 12.3 cm. Over the right lower extremity was negative for DVT. White count 8.4. Hemoglobin 12.0. Platelets 424. Sodium 140. Potassium 4.6. Bicarb 21. BUN 19. Creatinine 0.94. Glucose 174. The patient is seen today in the emergency department. She is awake and alert in no acute distress. She is maintaining O2 saturations in the 90s on 2 L/min per nasal cannula. The patient is seen today February 13, 2024 in follow-up on the regular medical floor. She is currently awake and alert in no acute distress. Maintaining O2 saturations in the 90s on room air. She is afebrile. Hemodynamically stable. Did undergo a right-sided thoracentesis today with 1.2 L of dark fluid removed. Fluid analysis and cytology pending. Follow-up chest x-ray continues to show some remaining fluid in the right lung base. No evidence of pneumothorax. Echocardiogram continues to show impaired left ventricular systolic function with ejection fraction of 30 to 35%. White count 15.2. Hemoglobin 11.8. Platelets 441. Sodium 144. Potassium 3.4. Bicarb 25. BUN 25. Creatinine 1.2. Glucose 145. BNP 49,000. She is continued on Lasix 40 mg IV every 12 hours. Remains on bronchodilators. Lovenox for DVT prophylaxis. Currently in a -120 mL balance. The patient is seen today February 14, 2024 in follow-up on the regular medical floor. She is sitting up in bed. Awake and alert in no acute distress. She is maintaining good O2 saturations in the 90s on room air. No IV fluids. She is breathing easier today compared to yesterday. She did undergo a right-sided thoracentesis with 1.2 L of fluid removed. Fluid analysis appears exudate with a total protein greater than 3.6 and LDH 299. Cytology is pending. Count 10.8. Hemoglobin 12.4. Platelets 435. Sodium 143. Potassium 3.3. Bicarb 28. BUN 27. Creatinine 1.4. Glucose 86. She remains on bronchodilators. Lovenox for DVT prophylaxis. Remains on IV Lasix and Aldactone. No accurate I & O. The patient is seen today February 15, 2024 in follow-up on the regular medical floor. She is awake and alert in no acute distress. Resting comfortably in bed. Denies any worsening shortness of breath, cough or congestion. She is maintaining good O2 saturations in the 90s on room air. No IV fluids. Pleural fluid cultures pending. Cytology pending. Venous Doppler of the left leg reveals no evidence of DVT. No new labs yet today. She remains on bronchodilators. Oral diuretics. Lovenox for DVT prophylaxis. The patient is seen today February 16, 2024 in follow-up on the regular medical floor. She is resting comfortably in bed. Awake and alert in no acute distress. She is maintaining O2 saturations in the 90s on 2 L/min per nasal cannula. No IV fluids. She does have complaints of lower extremity edema and pain. Ultrasound of the lower extremities revealed moderate peripheral vascular disease on the right. Nondiagnostic on the left. Vascular services are following. Pleural fluid cultures revealing no growth. Cytology negative for malignancy. Recent labs with white 4. Bicarb 29. BUN 32. Creatinine 1.4. Glucose 106. On 02/17/2024, the patient is being seen for a follow-up. The patient is being treated for an acute hypoxic failure secondary to CHF with a systolic heart failure patient has an ejection fraction of 30 to 35%. The patient has undergone previous thoracentesis with evacuation of around 1.2 L of pleural f luid on the right and the fluid was negative for malignancy. Patient is known to have coronary disease with previous stent placements back in October 2023. The patient is continuing to have some left lower extremity pain. The patient was seen by vascular surgery and the patient was kept n.p.o. after midnight for an angiogram and further intervention regarding suspected peripheral vascular disease. CTA of the aorta with runoff was done today and the patient was found to have left proximal external iliac artery occlusion with a stent like appearance of the lumen and up to 90% stenosis of the left common femoral artery and occlusion of the superficial femoral artery extending past the origin to the popliteal artery. 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 There is colonic diverticulosis. Bilateral nonobstructive renal artery calcifications. Moderate right pleural effusion. As such, Lovenox and Brilinta were placed on hold. She continues to have bilateral lower extremity pain left more than right. Her most recent blood work showed a hemoglobin of 11.6, BUN is at 31 with a creatinine of 1.4. Her GFR is at 41. She remains on Lasix 40 mg p.o. daily. She is also on Aldactone. She is currently on room air oxygen with a pulse ox of 93%. On today's evaluation on 02/18/2024, the patient underwent a right iliofemoral angiogram and selective angiogram of the distal popliteal artery and the patient underwent a external iliac artery percutaneous balloon angioplasty and insertion of a stent and tPA thrombolysis was initiated. Following that, the patient was broken to the intensive care unit. The patient has established external iliac artery patency. The common femoral had severe disease with approximately 50% narrowing. Superficial femoral artery access was established and the patient has a tPA catheter in place. She is calm and comfortable and currently she is on room air oxygen with a pulse ox of 92%. No significant respiratory distress. Blood work from today still pending. The patient remains on aspirin and Brilinta. noted the patient also has CHF with systolic heart failure with an ejection fraction of 30 to 35%. She has undergone previous thoracentesis of the right lung. The rest of the medications remain unchanged. With removal of 1.2 L of pleural fluid. 02/19/2024, the patient continues to have ischemic changes in the left lower extremity. There is a Doppler signal popliteal pulse on the left, absent posterior tibialis and dorsalis pedis on the left. Adequate pulse in the right lower extremity. The patient continues to have continuous tPA administration through the right femoral artery access and there is some bleeding noted at the catheter insertion site. Nevertheless, the patient has a stable hemoglobin. Noted the patient has undergone the left external iliac artery stenting with subsequent tPA thrombolysis. She is resting comfortably in bed. No significant respiratory difficulties. No evidence of any hematoma formation in the groin area. On examination, she does have cold ischemic changes in her left foot. Pain is improved compared to earlier. The plan is to do follow-up angiography today. Meanwhile, WBC count is at 10.1 hemoglobin 9.5 with a platelet count of 372, BUN is 33 with a creatinine of 1.42 and a sodium level of 135. Pulse ox is 97% liters of oxygen by nasal cannula. On 02/20/2024, the patient is doing well and she has no specific complaints. Note that the patient underwent another angiography yesterday and the angioplasty and stenting of the femoral artery was done with excellent results and the patient has a warm left lower extremity, warm foot with adequate pulses. No issues with pain. Urine output has dropped overnight and based on that, the patient was given a dose of Lasix 40 mg IV and the patient continued to have a low urine output. The hemoglobin today is at 7.3 today white cell count of 11.5 and a platelet count of 310. BUN is 40 with a creatinine of 1.8 and a sodium levels of 130. She is currently on 2 L of oxygen by nasal cannula with a pulse ox of 98%. Clinically stable. Hemodynamically stable. No other new complaints otherwise for now. No worsening shortness of breath. No chest pain. She remains on Lovenox 30 mg subcu for DVT prophylaxis. She was restarted back on a combination of aspirin and Brilinta. The catheter site over the right femoral artery is dry clean and intact and there is no hematoma formation or bleeding. Objective - Vital Signs Vital signs: Vital Signs Temp 97.6 F 02/20/24 04:00 Pulse 71 02/20/24 07:00 Resp 16 02/20/24 07:00 BP 97/47 02/20/24 07:00 Pulse Ox 97 02/20/24 07:00 FiO2 Intake & Output 02/19/24 02/20/24 02/20/24 18:59 06:59 18:59 Intake Total 443.913 3876 Output Total 775 35 Balance -358.156 0963 Weight 53.6 kg 63.1 kg Intake: IV 280 30 Alteplase 10 mg In Sodium 50 Chloride 0.9% 90 ml @ 1 MG/HR 10 mls/hr IA .Q10H [facility] Rx#:[id number] Invasive Line 3 30 30 Intake, IV Titration 232.833 Amount Alteplase 10 mg In Sodium 100 Chloride 0.9% 90 ml @ 1 MG/HR 10 mls/hr IA .Q10H [facility] Rx#:[id number] Heparin Sod,Pork in 0.45% 132.833 NaCl 25,000 unit In 0.45 % NaCl 1 250ml.bag @ 5 mls/hr IV .Q24H [facility] Rx#: [id number] Oral 1250 Output: Urine 775 35 Other: Voiding Method Indwelling Catheter Indwelling Catheter - Exam GENERAL EXAM: Alert, pleasant 68-year-old female, on room air oxygen, resting in bed, in no apparent distress. HEAD: Normocephalic. EYES: Normal reaction of pupils, equal size. NOSE: Clear with pink turbinates. THROAT: No erythema or exudates. NECK: No masses, no JVD. CHEST: No chest wall deformity. LUNGS: Equal air entry with crackles in the bilateral bases right greater than left. Dullness. CVS: S1 and S2 normal with no audible murmur, regular rhythm. ABDOMEN: No hepatosplenomegaly, normal bowel sounds, no guarding or rigidity. SPINE: No scoliosis or deformity SKIN: No rashes CENTRAL NERVOUS SYSTEM: No focal deficits, tone is normal in all 4 extremities. EXTREMITIES: There is 1-peripheral edema right greater than left. No clubbing, left lower extremity is warm and there is adequate pulses in the dorsalis pedis and posterior tibialis and popliteal area. - Labs CBC & Chem 7: 02/20/24 04:03 02/20/24 04:03 Labs: Abnormal Lab Results - Last 24 Hours (Table) 02/19/24 02/19/24 02/19/24 Range/Units 11:34 11:34 15:19 WBC (3.8-10.6) k/uL RBC 3.32 L 3.21 L (3.80-5.40) m/uL Hgb 9.5 L 9.5 L (11.4-16.0) gm/dL Hct 31.6 L 31.0 L (34.0-46.0) % MCHC 30.1 L 30.6 L (31.0-37.0) g/dL RDW 16.8 H 16.8 H (11.5-15.5) % Neutrophils # 8.2 H (1.3-7.7) k/uL Lymphocytes # 0.9 L (1.0-4.8) k/uL Fibrinogen 714 H (200-500) mg/dL Sodium (137-145) mmol/L BUN (7-17) mg/dL Creatinine (0.52-1.04) mg/dL Glucose (74-99) mg/dL Calcium (8.4-10.2) mg/dL 02/20/24 02/20/24 Range/Units 04:03 04:03 WBC 11.5 H (3.8-10.6) k/uL RBC 2.68 L (3.80-5.40) m/uL Hgb 7.8 L D (11.4-16.0) gm/dL Hct 25.9 L (34.0-46.0) % MCHC 30.2 L (31.0-37.0) g/dL RDW 16.8 H (11.5-15.5) % Neutrophils # (1.3-7.7) k/uL Lymphocytes # (1.0-4.8) k/uL Fibrinogen (200-500) mg/dL Sodium 130 L (137-145) mmol/L BUN 40 H (7-17) mg/dL Creatinine 1.83 H (0.52-1.04) mg/dL Glucose 107 H (74-99) mg/dL Calcium 8.0 L (8.4-10.2) mg/dL Assessment and Plan Plan: Acute hypoxemic respiratory failure secondary to an acute exacerbation of chronic systolic congestive heart failure in a patient with a known ejection fraction of 30 to 35%, currently on 2 L of O2 nasal cannula Large right-sided pleural effusion secondary to above, s/p thoracentesis with 1.2 L removed. Fluid analysis reveals exudate, cultures revealed no growth and cytology negative for malignancy Coronary disease with previous stent placements most recently in October 2023 to the mid LAD Ischemic cardiomyopathy Chronic lower pain with cerebrovascular disease and CTA of the aorta with runoff was done today and the patient was found to have left proximal external iliac artery occlusion with a stent like appearance of the lumen and up to 90% stenosis of the left common femoral artery and occlusion of the superficial femoral artery extending past the origin to the popliteal artery. 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 The patient was taken to the vascular lab and through a right femoral access, the patient underwent a Right iliofemoral angiogram, Left selective angiogram, third order to distal popliteal artery, Left external iliac artery percutaneous transluminal balloon angioplasty and stent 7 x 40 ever flex. The patient has a tPA into the left lower extremity. The patient had tPA thrombolysis of the left lower extremity. Due to ongoing ischemic changes in the left lower extremity, the patient underwent another angiography and stenting of the femoral artery. The patient has regained pulses in the left lower extremity. She is free of any pain and she has adequate pulses. She is on a combination of aspirin and Brilinta and the patient is also on Lovenox. Chronic and ongoing tobacco dependence Chronic obstructive pulmonary disease Hypertension Hyperlipidemia History of CVA/TIA Acute kidney injury with a low urine output with a creatinine of 1.8, rule out contrast nephropathy Plan: Completed thrombolytics Completed vascular intervention and angioplasty and stenting of the femoral artery with successful revascularization of the left lower extremity Currently on 2 L of oxygen by nasal cannula Monitor hemoglobin No signs of bleeding Monitor renal function Given a bolus of 500 cc of normal saline Start normal saline at rate of 50 cc an hour as maintenance Respiratory status is stable. Pleural fluid cytology negative for malignancy Continue diuretics and the patient is currently on a combination of Lasix and Aldactone Continue bronchodilators Patient was restarted on Entresto and beta-blockers with metoprolol 50 mg p.o. daily and the patient is also on Farxiga. Will continue to follow.
[2024-02-20] MEDS ORDERED: hydrALAZINE HCL 25 MG TAB PO PRN (14:35)
--- NOTE | 2024-02-20 15:17 | P.PN ---
Subjective Progress Note Date: 02/20/24 HISTORY OF PRESENTING ILLNESS 68-year-old female with PMH of CAD s/p PCI, PAD, HTN, dyslipidemia, CHF, med ication noncompliance, smoking. Cardiac cath in October 2023, stenting of mid LAD with previous stent in LCx which was patent. Echo October 2023 EF 30 to 35%, mild pulm hypertension, mild MR. February 12, 2024, patient was admitted with worsening shortness of breath and dyspnea on exertion. She was found to have right pleural effusion. On February 13, 2024 she underwent thoracentesis with 1.2 L fluid removal. Fluid analysis appears to be exudative in nature with total protein greater than 3.6, LDH 299. Patient reported left lower extremity pain. She is known to have PAD. She was evaluated by vascular surgery. CTA aorta with runoff found to have left external iliac artery occlusion, 90% stenosis of the left common femoral artery, occlusion of superficial femoral artery extending to the origin of popliteal artery on left. 02/18/2024, patient underwent left peripheral angiogram with s/p left external iliac artery percutaneous balloon angioplasty with stent 7 x 40. Common femoral artery had severe disease with 50% narrowing. TPA catheter was placed in. 02/18/2024 Currently patient is stable. She is on room air saturating well. She is not in respiratory distress. She continues to be on aspirin and Brilinta. BP 147/62, heart rate 77, Hemoglobin 11.6, WBC 10.7, BUN 31, creatinine 1.4 which is stable. 02/19/2024 Blood pressure 111 over 55 mmHg, heart rate 76, sinus rhythm on telemetry. No atrial fibrillation noticed on telemetry for last 24 hours. Hemoglobin 9.5, creatinine 1.4, sodium 135, potassium 3.4, BUN 23. Yesterday we added Entresto and discontinued losartan. Patient has tolerated well with good blood pressure control and no worsening renal function. She is planned for removal of TPA catheter in [employer] today by Dr. Infante. 02/20/2024 Since yesterday patient has been oliguric. Her kidney function has worsened. Her creatinine is 1.8, yesterday it was 1.4. Hemoglobin is 7.8 today yesterday it was 9.5. Patient underwent peripheral vascular procedure yesterday with minimal angioplasty and stenting of left SFA. Postintervention she had 1+ DP and PT pulses. Left lower extremity appears warm today with better circulation. For her poor kidney function, I will hold her Entresto, Aldactone and Lasix. She does not appear volume overloaded. PHYSICAL EXAMINATION Head: Normocephalic. Eyes: Sclerae nonicteric. Neck: Brisk carotid upstroke, no jugular venous distention. Lungs: Reduced air entry bilateral bases, mild crackles audible Heart: Regular rate and rhythm, S1-S2, no S3, no murmur or rub. Abdomen: Soft nontender, Extremities: 1+ edema. Neuro: Alert, oritented, no focal deficits. Detailed neuro exam was not performed. ASSESSMENT Perioperative cardiac risk assessment for femoropopliteal bypass surgery Ischemic cardiomyopathy, HFrEF with a EF 30 to 35%, NYHA class III Acute hypoxic respiratory failure due to CHF exacerbation and right-sided pleural effusion, improving Large right pleural effusion, exudative in nature, status post 1.2 L fluid removal CAD s/p PCI October 2023, mid LAD PAD with left lower extremity resting pain. S/p left external iliac balloon angioplasty and stenting, BP catheter MARCY, oliguric, likely contrast-induced nephropathy COPD Smoking Dyslipidemia Essential hypertension Prior history of CVA/TIA PLAN Patient is at moderate to high risk for a high risk procedure. Patient's cardiac risk factors are nonmodifiable at this time. She does not have obvious cardiovascular contraindication to proceed with the surgery if needed. Continue aspirin, Brilinta 90 mg twice daily, Lipitor 80 mg daily metoprolol succinate 50 mg, Hold Lasix, Entresto, Aldactone, Farxiga at this time due to low kidney function. Once patient's oliguria improves, resume these medications. Patient might be having a component of contrast-induced nephropathy. Ronni Ellington MD, FACC, RPVI Thank you for allowing [facility] to participate in this patient's care. Feel free to reach out in case of any followup questions. Objective - Vital Signs Vital signs: Vital Signs Temp 97.6 F 02/20/24 11:46 Pulse 82 02/20/24 11:46 Resp 16 02/20/24 11:46 BP 108/54 02/20/24 11:46 Pulse Ox 98 02/20/24 11:46 FiO2 Intake & Output 02/19/24 02/20/2424 18:59 06:59 18:59 Intake Total 195.511 5628 1320 Output Total 775 35 375 Balance -884.610 6355 945 Weight 53.6 kg 63.1 kg Intake: IV 280 30 720 Alteplase 10 mg In Sodium 50 Chloride 0.9% 90 ml @ 1 MG/HR 10 mls/hr IA .Q10H [facility] Rx#:[id number] Invasive Line 2 10 Invasive Line 3 30 30 Invasive Line 4 10 Sodium Chloride 0.9% 1, 200 000 ml @ 50 mls/hr IV . Q20H [facility] Rx#:[id number] Sodium Chloride 0.9% 500 500 ml 500 ml @ 999 mls/hr IV .Q31M [facility] Rx#:[id number] Intake, IV Titration 232.833 Amount Alteplase 10 mg In Sodium 100 Chloride 0.9% 90 ml @ 1 MG/HR 10 mls/hr IA .Q10H [facility] Rx#:[id number] Heparin Sod,Pork in 0.45% 132.833 NaCl 25,000 unit In 0.45 % NaCl 1 250ml.bag @ 5 mls/hr IV .Q24H [facility] Rx#: [id number] Oral 1250 600 Output: Urine 775 35 375 Other: Voiding Method Indwelling Catheter Indwelling Catheter # Bowel Movements 0 - Labs CBC & Chem 7: 02/20/24 04:03 02/20/24 04:03 Labs: Abnormal Lab Results - Last 24 Hours (Table) 02/19/24 02/20/24 02/20/24 Range/Units 15:19 04:03 04:03 WBC 11.5 H (3.8-10.6) k/uL RBC 3.21 L 2.68 L (3.80-5.40) m/uL Hgb 9.5 L 7.8 L D (11.4-16.0) gm/dL Hct 31.0 L 25.9 L (34.0-46.0) % MCHC 30.6 L 30.2 L (31.0-37.0) g/dL RDW 16.8 H 16.8 H (11.5-15.5) % Sodium 130 L (137-145) mmol/L BUN 40 H (7-17) mg/dL Creatinine 1.83 H (0.52-1.04) mg/dL Glucose 107 H (74-99) mg/dL Calcium 8.0 L (8.4-10.2) mg/dL
--- NOTE | 2024-02-20 17:13 | P.PN ---
Subjective Progress Note Date: 02/20/24 Pt underwent f/u angiogram via existing catheter. Rec'd: Percutaneous transluminal stent placement 6 x 25, 6 x 10 Viabahn covered stent, Percutaneous transluminal balloon angioplasty 6 x 100 superficial femoral artery. Gen: In NAD, non-toxic HEENT: normocephalic, atraumatic, hearing acuity is intant, mucous membranes moist CVS: Poor perfusion to the left lower extremity, with dusky extremity, no pittin g edema, Respiratory: symmetric chest expansion, no accessory muscle use, GI: soft, NTTP, ND, : no suprapubic tenderness, no CVA tenderness MSK/Derm: no rashes, cyanosis Neuro: CN II-XII intact, no motor weakness, Psych: cooperative, euthymic mood, judgment and insight is intact Hospital course: Patient is a 68-year-old female with a PMH of systolic CHF EF 30 to 35%, CAD with stents, hypertension, hyperlipidemia, COPD, and tobacco abuse who presented to the emergency room with complaints of lower extremity edema, shortness of breath, and cough. Chest x-ray in the emergency room revealed a consolidative opacification involving the right anterior and inferior hemithorax with promine nt cardiomegaly. EKG revealed normal sinus rhythm at 60 bpm with T wave inversion in leads V4 to V6 with flattening in lead aVF. Laboratory evaluation revealed WBC count 8.4, hemoglobin 12.0, glucose of 174, total bilirubin 1.9, troponin 0.020, with platelet count 424. Assessment/plan: Acute systolic CHF exacerbation with acute hypoxic respiratory failure, ejection fraction 30 to 35% Significant right-sided pleural effusion -cardiology evaluating patient, cleared from their end for surgery with udnerstanding that patient is high risk for high risk procedure with no modifiable risk factors -lasix PO -I/Os, dailiy weights -pulmonology consulted, pt is s/p thoracentesis, which is exudative, cytology pending -ivet PAD -vascular surgery consulted -ABIs ordered, inconclusive -CT Abd with runoff reviewed -discussed with surgery, pending angiogram after cardiac clearance -cardiology consult for clearance Chronic conditions: CAD status post stents, hypertension, hyperlipidemia, COPD -home meds reviewed and reconciled DVT prophylaxis: Lovenox Subq on hold Disposition: TBD CODE STATUS: Full Code Discussed with: Patient Anticipated discharge place: Home Objective - Vital Signs Vital signs: Vital Signs Temp 97.7 F 02/20/24 16:33 Pulse 79 02/20/24 16:33 Resp 16 02/20/24 16:33 BP 104/39 02/20/24 16:33 Pulse Ox 96 02/20/24 16:33 FiO2 Intake & Output 02/19/24 02/20/24 02/20/24 18:59 06:59 18:59 Intake Total 519.576 5256 1320 Output Total 775 35 375 Balance -345.445 1661 945 Weight 53.6 kg 63.1 kg Intake: IV 280 30 720 Alteplase 10 mg In Sodium 50 Chloride 0.9% 90 ml @ 1 MG/HR 10 mls/hr IA .Q10H [facility] Rx#:[id number] Invasive Line 2 10 Invasive Line 3 30 30 Invasive Line 4 10 Sodium Chloride 0.9% 1, 200 000 ml @ 50 mls/hr IV . Q20H [facility] Rx#:[id number] Sodium Chloride 0.9% 500 500 ml 500 ml @ 999 mls/hr IV .Q31M [facility] Rx#:[id number] Intake, IV Titration 232.833 Amount Alteplase 10 mg In Sodium 100 Chloride 0.9% 90 ml @ 1 MG/HR 10 mls/hr IA .Q10H [facility] Rx#:[id number] Heparin Sod,Pork in 0.45% 132.833 NaCl 25,000 unit In 0.45 % NaCl 1 250ml.bag @ 5 mls/hr IV .Q24H [facility] Rx#: [id number] Oral 1250 600 Output: Urine 775 35 375 Other: Voiding Method Indwelling Catheter Indwelling Catheter # Bowel Movements 0 - Labs CBC & Chem 7: 02/20/24 04:03 02/20/24 04:03 Labs: Abnormal Lab Results - Last 24 Hours (Table) 02/20/24 02/20/24 Range/Units 04:03 04:03 WBC 11.5 H (3.8-10.6) k/uL RBC 2.68 L (3.80-5.40) m/uL Hgb 7.8 L D (11.4-16.0) gm/dL Hct 25.9 L (34.0-46.0) % MCHC 30.2 L (31.0-37.0) g/dL RDW 16.8 H (11.5-15.5) % Sodium 130 L (137-145) mmol/L BUN 40 H (7-17) mg/dL Creatinine 1.83 H (0.52-1.04) mg/dL Glucose 107 H (74-99) mg/dL Calcium 8.0 L (8.4-10.2) mg/dL
--- NOTE | 2024-02-21 10:55 | P.PN ---
Subjective Progress Note Date: 02/21/24 Pt doing very well today, ambluatiing with minimal assist and walker to bathroom. Had Hgb decrease to 7.8 and Cr elevation to 1.8. Watching these labs. Gen: In NAD, non-toxic HEENT: normocephalic, atraumatic, hearing acuity is intant, mucous membranes moist CVS: Poor perfusion to the left lower extremity, with dusky extremity, no pitting edema, Respiratory: symmetric chest expansion, no accessory muscle use, GI: soft, NTTP, ND, : no suprapubic tenderness, no CVA tenderness MSK/Derm: no rashes, cyanosis Neuro: CN II-XII intact, no motor weakness, Psych: cooperative, euthymic mood, judgment and insight is intact Hospital course: Patient is a 68-year-old female with a PMH of systolic CHF EF 30 to 35%, CAD with stents, hypertension, hyperlipidemia, COPD, and tobacco abuse who presented to the emergency room with complaints of lower extremity edema, shortness of breath, and cough. Chest x-ray in the emergency room revealed a consolidative opacification involving the right anterior and inferior hemithorax with prominent cardiomegaly. EKG revealed normal sinus rhythm at 60 bpm with T wave inversion in leads V4 to V6 with flattening in lead aVF. Laboratory evaluation revealed WBC count 8.4, hemoglobin 12.0, glucose of 174, total bilirubin 1.9, troponin 0.020, with platelet count 424. Assessment/plan: Acute systolic CHF exacerbation with acute hypoxic respiratory failure, ejection fraction 30 to 35% Significant right-sided pleural effusion -cardiology evaluating patient, cleared from their end for surgery with udnerstanding that patient is high risk for high risk procedure with no modifiable risk factors -lasix PO -I/Os, dailiy weights -pulmonology consulted, pt is s/p thoracentesis, which is exudative, cytology pending -ivet PAD -vascular surgery consulted -ABIs ordered, inconclusive -CT Abd with runoff reviewed -discussed with surgery, pending angiogram after cardiac clearance -cardiology consult for clearance Chronic conditions: CAD status post stents, hypertension, hyperlipidemia, COPD -home meds reviewed and reconciled DVT prophylaxis: Lovenox Subq on hold Disposition: TBD CODE STATUS: Full Code Discussed with: Patient Anticipated discharge place: Home Objective - Vital Signs Vital signs: Vital Signs Temp 98.6 F 02/21/24 08:00 Pulse 91 02/21/24 09:45 Resp 14 02/21/24 08:00 BP 102/57 02/21/24 08:00 Pulse Ox 95 02/21/24 08:00 FiO2 Intake & Output 02/20/24 02/21/24 02/21/24 18:59 06:59 18:59 Intake Total 1880 70 10 Output Total 375 900 100 Balance 1505 -830 -90 Intake: IV 1040 70 10 Invasive Line 2 10 Invasive Line 4 30 20 10 Sodium Chloride 0.9% 1, 500 50 000 ml @ 50 mls/hr IV . Q20H [facility] Rx#:[id number] Sodium Chloride 0.9% 500 500 ml 500 ml @ 999 mls/hr IV .Q31M [facility] Rx#:[id number] Oral 840 Output: Urine 375 900 100 Other: Voiding Method Bedside Commode Bedside Commode Toilet # Voids 7 # Bowel Movements 0 2 1 - Labs CBC & Chem 7: 02/20/24 04:03 02/20/24 04:03
--- NOTE | 2024-02-21 11:14 | P.PN ---
Subjective Progress Note Date: 02/21/24 Principal diagnosis: Peripheral arterial disease She is seen and examined today as a follow-up in the ICU. She is up in the chair. States she still has some numbness and tingling in her left foot. She has done very little ambulation. Urine output has increased. Infante catheter was discontinued yesterday and she has been voiding. Objective - Vital Signs Vital signs: Vital Signs Temp 98.6 F 02/21/24 08:00 Pulse 91 02/21/24 09:45 Resp 14 02/21/24 08:00 BP 102/57 02/21/24 08:00 Pulse Ox 95 02/21/24 08:00 FiO2 Intake & Output 02/20/24 02/21/24 02/21/24 18:59 06:59 18:59 Intake Total 1880 70 10 Output Total 375 900 100 Balance 1505 -830 -90 Intake: IV 1040 70 10 Invasive Line 2 10 Invasive Line 4 30 20 10 Sodium Chloride 0.9% 1, 500 50 000 ml @ 50 mls/hr IV . Q20H [facility] Rx#:[id number] Sodium Chloride 0.9% 500 500 ml 500 ml @ 999 mls/hr IV .Q31M [facility] Rx#:[id number] Oral 840 Output: Urine 375 900 100 Other: Voiding Method Bedside Commode Bedside Commode Toilet # Voids 7 # Bowel Movements 0 2 1 - Exam General appearance: The patient is alert, oriented, appears in no acute distress. HET: Head is normocephalic and atraumatic. Neck: Supple. Heart: Regular. Lungs: Equal expansion, normal respiratory effort. Abdomen: Soft, nondistended. Extremities: Normal skin color and turgor. Right groin without any bleeding, no hematoma. Bilateral lower extremities warm to the touch, good capillary refill and sensorimotor intact. Bilateral palpable PT and DP pulses. Neurological: No focal deficits. Alert and oriented x 3. - Labs CBC & Chem 7: 02/20/24 04:03 02/20/24 04:03 Assessment and Plan Assessment: 1. Segun 4 peripheral arterial disease, subacute on chronic occlusion status post tPA thrombolysis, left external iliac artery stenting and left SFA stenting 2. Chronic peripheral arterial disease, with previous left SFA stenting 2020 3. Bilateral lower extremity pain, left greater than right 4. CHF exacerbation 5. Coronary artery disease with recent cardiac stents in October 2023 6. Hypertension 7. Tobacco abuse 8. Acute kidney injury Plan: 1. Continue pain management 2. Brilinta resumed 3. May resume Lovenox 4. Heart healthy diet 5. Encourage ambulation 6. Patient may be transferred to cardiac stepdown unit 7. Patient has been cleared from cardiology as moderate to high risk for high risk procedures with out any obvious cardiovascular contraindication to proceed with surgery if needed. 8. Rest of medical management per primary medical team 9. Commend smoking cessation. Offered patient nicotine patch and she agreed. Prescription sent to her local pharmacy. 9. Patient to follow-up with vascular surgery in 2 weeks Thank you for this consultation, patient is cleared from vascular surgery for discharge. We will sign off at this time. The impression and plan of care has been dictated as directed. Dr. Navarrete I performed a history and examination of this patient, discussed the same with the dictator. I agree with the dictator's note ,documented as a scribe. Any additional findings or plans will be noted.
[2024-02-21 12:57] LABS: Anisocytosis Slight; HCT 25.3 % (34.0-46.0); HGB 7.5 gm/dL (11.4-16.0); Hypochromasia Marked; MCH 28.7 pg (25.0-35.0); MCHC 29.6 g/dL (31.0-37.0); MCV 96.8 fL (80.0-100.0); Mean Platelet Volume 7.3; Platelet Count 350 k/uL (150-450); RBC 2.61 m/uL (3.80-5.40); RDW 16.7 % (11.5-15.5); WBC 14.1 k/uL (3.8-10.6)
[2024-02-21] MEDS: SODIUM CHLORIDE 0.9% 1,000 ML IV SCH (12:59)
[2024-02-21 13:16] LABS: African American GFR (CKD) 47 (>60 ml/min/1.73 sqM); Anion Gap 5 mmol/L; Blood Urea Nitrogen 37 mg/dL (7-17); Calcium 8.3 mg/dL (8.4-10.2); Carbon Dioxide 25 mmol/L (22-30); Chloride 103 mmol/L (98-107); Glucose 140 mg/dL (74-99); Magnesium 1.8 mg/dL (1.6-2.3); Non-African American GFR(CKD) 41 (>60 ml/min/1.73 sqM); Potassium 4.5 mmol/L (3.5-5.1); Sodium 133 mmol/L (137-145)
--- NOTE | 2024-02-21 15:49 | P.PN ---
Subjective Progress Note Date: 02/21/24 This is a 68-year-old female patient with a known history of hyperlipidemia, hypertension, coronary disease with previous stent placements and recent stent placement November 06, 2019 to the mid LAD, chronic and ongoing tobacco dependence. She also has ischemic cardiomyopathy with impaired left ventricular systolic function ejection fraction of 30 to 35%. She presented here to the emergency room late this morning with complaints of increasing shortness of breath and lower extremity edema right greater than left. She did admit to not taking her Lasix due to causing her to use the restroom too often. Chest x-ray shows a significant right-sided pleural effusion. Ultrasound measures it at 12.3 cm. Over the right lower extremity was negative for DVT. White count 8.4. Hemoglobin 12.0. Platelets 424. Sodium 140. Potassium 4.6. Bicarb 21. BUN 19. Creatinine 0.94. Glucose 174. The patient is seen today in the emergency department. She is awake and alert in no acute distress. She is maintaining O2 saturations in the 90s on 2 L/min per nasal cannula. The patient is seen today February 13, 2024 in follow-up on the regular medical floor. She is currently awake and alert in no acute distress. Maintaining O2 saturations in the 90s on room air. She is afebrile. Hemodynamically stable. Did undergo a right-sided thoracentesis today with 1.2 L of dark fluid removed. Fluid analysis and cytology pending. Follow-up chest x-ray continues to show some remaining fluid in the right lung base. No evidence of pneumothorax. Echocardiogram continues to show impaired left ventricular systolic function with ejection fraction of 30 to 35%. White count 15.2. Hemoglobin 11.8. Platelets 441. Sodium 144. Potassium 3.4. Bicarb 25. BUN 25. Creatinine 1.2. Glucose 145. BNP 49,000. She is continued on Lasix 40 mg IV every 12 hours. Remains on bronchodilators. Lovenox for DVT prophylaxis. Currently in a -120 mL balance. The patient is seen today February 14, 2024 in follow-up on the regular medical floor. She is sitting up in bed. Awake and alert in no acute distress. She is maintaining good O2 saturations in the 90s on room air. No IV fluids. She is breathing easier today compared to yesterday. She did undergo a right-sided thoracentesis with 1.2 L of fluid removed. Fluid analysis appears exudate with a total protein greater than 3.6 and LDH 299. Cytology is pending. Count 10.8. Hemoglobin 12.4. Platelets 435. Sodium 143. Potassium 3.3. Bicarb 28. BUN 27. Creatinine 1.4. Glucose 86. She remains on bronchodilators. Lovenox for DVT prophylaxis. Remains on IV Lasix and Aldactone. No accurate I & O. The patient is seen today February 15, 2024 in follow-up on the regular medical floor. She is awake and alert in no acute distress. Resting comfortably in bed. Denies any worsening shortness of breath, cough or congestion. She is maintaining good O2 saturations in the 90s on room air. No IV fluids. Pleural fluid cultures pending. Cytology pending. Venous Doppler of the left leg reveals no evidence of DVT. No new labs yet today. She remains on bronchodilators. Oral diuretics. Lovenox for DVT prophylaxis. The patient is seen today February 16, 2024 in follow-up on the regular medical floor. She is resting comfortably in bed. Awake and alert in no acute distress. She is maintaining O2 saturations in the 90s on 2 L/min per nasal cannula. No IV fluids. She does have complaints of lower extremity edema and pain. Ultrasound of the lower extremities revealed moderate peripheral vascular disease on the right. Nondiagnostic on the left. Vascular services are following. Pleural fluid cultures revealing no growth. Cytology negative for malignancy. Recent labs with white 4. Bicarb 29. BUN 32. Creatinine 1.4. Glucose 106. On 02/17/2024, the patient is being seen for a follow-up. The patient is being treated for an acute hypoxic failure secondary to CHF with a systolic heart failure patient has an ejection fraction of 30 to 35%. The patient has undergone previous thoracentesis with evacuation of around 1.2 L of pleural f luid on the right and the fluid was negative for malignancy. Patient is known to have coronary disease with previous stent placements back in October 2023. The patient is continuing to have some left lower extremity pain. The patient was seen by vascular surgery and the patient was kept n.p.o. after midnight for an angiogram and further intervention regarding suspected peripheral vascular disease. CTA of the aorta with runoff was done today and the patient was found to have left proximal external iliac artery occlusion with a stent like appearance of the lumen and up to 90% stenosis of the left common femoral artery and occlusion of the superficial femoral artery extending past the origin to the popliteal artery. 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 There is colonic diverticulosis. Bilateral nonobstructive renal artery calcifications. Moderate right pleural effusion. As such, Lovenox and Brilinta were placed on hold. She continues to have bilateral lower extremity pain left more than right. Her most recent blood work showed a hemoglobin of 11.6, BUN is at 31 with a creatinine of 1.4. Her GFR is at 41. She remains on Lasix 40 mg p.o. daily. She is also on Aldactone. She is currently on room air oxygen with a pulse ox of 93%. On today's evaluation on 02/18/2024, the patient underwent a right iliofemoral angiogram and selective angiogram of the distal popliteal artery and the patient underwent a external iliac artery percutaneous balloon angioplasty and insertion of a stent and tPA thrombolysis was initiated. Following that, the patient was broken to the intensive care unit. The patient has established external iliac artery patency. The common femoral had severe disease with approximately 50% narrowing. Superficial femoral artery access was established and the patient has a tPA catheter in place. She is calm and comfortable and currently she is on room air oxygen with a pulse ox of 92%. No significant respiratory distress. Blood work from today still pending. The patient remains on aspirin and Brilinta. noted the patient also has CHF with systolic heart failure with an ejection fraction of 30 to 35%. She has undergone previous thoracentesis of the right lung. The rest of the medications remain unchanged. With removal of 1.2 L of pleural fluid. 02/19/2024, the patient continues to have ischemic changes in the left lower extremity. There is a Doppler signal popliteal pulse on the left, absent posterior tibialis and dorsalis pedis on the left. Adequate pulse in the right lower extremity. The patient continues to have continuous tPA administration through the right femoral artery access and there is some bleeding noted at the catheter insertion site. Nevertheless, the patient has a stable hemoglobin. Noted the patient has undergone the left external iliac artery stenting with subsequent tPA thrombolysis. She is resting comfortably in bed. No significant respiratory difficulties. No evidence of any hematoma formation in the groin area. On examination, she does have cold ischemic changes in her left foot. Pain is improved compared to earlier. The plan is to do follow-up angiography today. Meanwhile, WBC count is at 10.1 hemoglobin 9.5 with a platelet count of 372, BUN is 33 with a creatinine of 1.42 and a sodium level of 135. Pulse ox is 97% liters of oxygen by nasal cannula. On 02/20/2024, the patient is doing well and she has no specific complaints. Note that the patient underwent another angiography yesterday and the angioplasty and stenting of the femoral artery was done with excellent results and the patient has a warm left lower extremity, warm foot with adequate pulses. No issues with pain. Urine output has dropped overnight and based on that, the patient was given a dose of Lasix 40 mg IV and the patient continued to have a low urine output. The hemoglobin today is at 7.3 today white cell count of 11.5 and a platelet count of 310. BUN is 40 with a creatinine of 1.8 and a sodium levels of 130. She is currently on 2 L of oxygen by nasal cannula with a pulse ox of 98%. Clinically stable. Hemodynamically stable. No other new complaints otherwise for now. No worsening shortness of breath. No chest pain. She remains on Lovenox 30 mg subcu for DVT prophylaxis. She was restarted back on a combination of aspirin and Brilinta. The catheter site over the right femoral artery is dry clean and intact and there is no hematoma formation or bleeding. On today's evaluation of 02/21/2024, the patient is being seen for a follow-up. The patient is doing well. She is on room air oxygen. No splint difficulties. No leg pain and she is able to ambulate. Pulses are present in the left lower extremity. White cell count of 14 with a hemoglobin 7.7 and platelet count of 350. Creatinine is at 1.33 with a BUN of 37 and sodium levels at 133. No specific complaints otherwise for now. The patient is currently on a combina tion of aspirin and Brilinta. No signs of any significant fluid overload. Objective - Vital Signs Vital signs: Vital Signs Temp 97.7 F 02/21/24 04:00 Pulse 91 02/21/24 09:45 Resp 16 02/21/24 04:00 BP 109/63 02/21/24 04:00 Pulse Ox 96 02/21/24 04:00 FiO2 Intake & Output 02/20/24 02/21/24 02/21/24 18:59 06:59 18:59 Intake Total 1880 70 10 Output Total 375 900 Balance 1505 -830 10 Intake: IV 1040 70 10 Invasive Line 2 10 Invasive Line 4 30 20 10 Sodium Chloride 0.9% 1, 500 50 000 ml @ 50 mls/hr IV . Q20H [facility] Rx#:[id number] Sodium Chloride 0.9% 500 500 ml 500 ml @ 999 mls/hr IV .Q31M [facility] Rx#:[id number] Oral 840 Output: Urine 375 900 Other: Voiding Method Bedside Commode Bedside Commode # Voids 7 # Bowel Movements 0 2 - Exam GENERAL EXAM: Alert, pleasant 68-year-old female, on room air oxygen, resting in bed, in no apparent distress. HEAD: Normocephalic. EYES: Normal reaction of pupils, equal size. NOSE: Clear with pink turbinates. THROAT: No erythema or exudates. NECK: No masses, no JVD. CHEST: No chest wall deformity. LUNGS: Equal air entry with crackles in the bilateral bases right greater than left. Dullness. CVS: S1 and S2 normal with no audible murmur, regular rhythm. ABDOMEN: No hepatosplenomegaly, normal bowel sounds, no guarding or rigidity. SPINE: No scoliosis or deformity SKIN: No rashes CENTRAL NERVOUS SYSTEM: No focal deficits, tone is normal in all 4 extremities. EXTREMITIES: There is 1-peripheral edema right greater than left. No clubbing, left lower extremity is warm and there is adequate pulses in the dorsalis pedis and posterior tibialis and popliteal area. - Labs CBC & Chem 7: 02/21/24 12:46 02/21/24 12:46 Assessment and Plan Plan: Acute hypoxemic respiratory failure secondary to an acute exacerbation of chronic systolic congestive heart failure in a patient with a known ejection fraction of 30 to 35%, currently on room air oxygen Large right-sided pleural effusion secondary to above, s/p thoracentesis with 1.2 L removed. Fluid analysis reveals exudate, cultures revealed no growth and cytology negative for malignancy Coronary disease with previous stent placements most recently in October 2023 to the mid LAD Ischemic cardiomyopathy Chronic lower pain with cerebrovascular disease and CTA of the aorta with runoff was done today and the patient was found to have left proximal external iliac artery occlusion with a stent like appearance of the lumen and up to 90% stenosis of the left common femoral artery and occlusion of the superficial femoral artery extending past the origin to the popliteal artery. 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 The patient was taken to the vascular lab and through a right femoral access, the patient underwent a Right iliofemoral angiogram, Left selective angiogram, third order to distal popliteal artery, Left external iliac artery percutaneous transluminal balloon angioplasty and stent 7 x 40 ever flex. The patient has a tPA into the left lower extremity. The patient had tPA thrombolysis of the left lower extremity. Due to ongoing ischemic changes in the left lower extremity, the patient underwent another angiography and stenting of the femoral artery. The patient has regained pulses in the left lower extremity. She is free of any pain and she has adequate pulses. She is on a combination of aspirin and Brilinta and the patient is also on Lovenox. Chronic and ongoing tobacco dependence Chronic obstructive pulmonary disease Hypertension Hyperlipidemia History of CVA/TIA Acute kidney injury with a low urine output with a creatinine of 1.8, rule out contrast nephropathy, improving the creatinine is down to 1.3 Plan: Adequate blood flow to the left lower extremity without signs of any acute ischemia. Clinically improved. Currently on room air oxygen Monitor hemoglobin No signs of bleeding Renal function is improving. Respiratory status is stable. Pleural fluid cytology negative for malignancy Continue diuretics and the patient is currently on a combination of Lasix and Aldactone Continue bronchodilators Patient was restarted on Entresto and beta-blockers with metoprolol 50 mg p.o. daily and the patient is also on Farxiga. Possible discharge today. We followed up on outpatient basis.
[2024-02-22 10:30] LABS: Anisocytosis Slight; Basophils % (A) 0 %; Eosinophils # (A) 0.1 k/uL (0-0.7); Eosinophils % (A) 1 %; HCT 22.4 % (34.0-46.0); Hypochromasia Marked; Lymphocytes # (A) 0.7 k/uL (1.0-4.8); Lymphocytes % (A) 6 %; MCH 28.9 pg (25.0-35.0); MCHC 29.7 g/dL (31.0-37.0); MCV 97.1 fL (80.0-100.0); Macrocytosis Slight; Mean Platelet Volume 7.8; Monocytes # (A) 0.7 k/uL (0-1.0); Monocytes % (A) 6 %; Neutrophils % (A) 86 %; Platelet Count 376 k/uL (150-450); RBC 2.31 m/uL (3.80-5.40); RDW 16.8 % (11.5-15.5); WBC 11.6 k/uL (3.8-10.6)
[2024-02-22 10:39] LABS: HGB 6.7 gm/dL (11.4-16.0)
[2024-02-22 10:40] LABS: African American GFR (CKD) 62 (>60 ml/min/1.73 sqM); Anion Gap 5 mmol/L; Blood Urea Nitrogen 27 mg/dL (7-17); Calcium 8.1 mg/dL (8.4-10.2); Carbon Dioxide 24 mmol/L (22-30); Chloride 107 mmol/L (98-107); Glucose 162 mg/dL (74-99); Non-African American GFR(CKD) 53 (>60 ml/min/1.73 sqM); Potassium 4.4 mmol/L (3.5-5.1); Sodium 136 mmol/L (137-145)
--- NOTE | 2024-02-22 10:49 | P.PN ---
Subjective Progress Note Date: 02/22/24 Pt c/o LE pain, Hgb is 6.7 today. Gen: In NAD, non-toxic HEENT: normocephalic, atraumatic, hearing acuity is intant, mucous membranes moist CVS: Poor perfusion to the left lower extremity, with dusky extremity, no pitting edema, Respiratory: symmetric chest expansion, no accessory muscle use, GI: soft, NTTP, ND, : no suprapubic tenderness, no CVA tenderness MSK/Derm: no rashes, cyanosis Neuro: CN II-XII intact, no motor weakness, Psych: cooperative, euthymic mood, judgment and insight is intact Hospital course: Patient is a 68-year-old female with a PMH of systolic CHF EF 30 to 35%, CAD with stents, hypertension, hyperlipidemia, COPD, and tobacco abuse who presented to the emergency room with complaints of lower extremity edema, shortness of breath, and cough. Chest x-ray in the emergency room revealed a consolidative opacification involving the right anterior and inferior hemithorax with prominent cardiomegaly. EKG revealed normal sinus rhythm at 60 bpm with T wave inversion in leads V4 to V6 with flattening in lead aVF. Laboratory evaluation revealed WBC count 8.4, hemoglobin 12.0, glucose of 174, total bilirubin 1.9, troponin 0.020, with platelet count 424. -ABIs ordered, inconclusive -CT Abd with runoff reviewed Assessment/plan: Acute systolic CHF exacerbation with acute hypoxic respiratory failure, ejection fraction 30 to 35% Significant right-sided pleural effusion -cardiology evaluating patient, cleared from their end for surgery with udnerstanding that patient is high risk for high risk procedure with no modifiable risk factors -lasix PO -I/Os, dailiy weights -pulmonology consulted, pt is s/p thoracentesis, which is exudative, cytology pending -duonebs PAD Acute Blood Loss Anemia -vascular surgery consulted -cardiology consult appreciated -transfuse 1U PRBC Chronic conditions: CAD status post stents, hypertension, hyperlipidemia, COPD -home meds reviewed and reconciled DVT prophylaxis: Lovenox Subq on hold Disposition: TBD CODE STATUS: Full Code Discussed with: Patient Anticipated discharge place: Home Objective - Vital Signs Vital signs: Vital Signs Temp 98.7 F 02/22/24 08:00 Pulse 91 02/22/24 08:00 Resp 18 02/22/24 08:00 BP 96/45 02/22/24 08:00 Pulse Ox 97 02/22/24 08:00 FiO2 Intake & Output 02/21/24 02/22/24 02/22/24 18:59 06:59 18:59 Intake Total 428 240 Output Total 100 Balance 328 240 Weight 56.6 kg Intake: IV 310 Invasive Line 4 10 Sodium Chloride 0.9% 1, 300 000 ml @ 50 mls/hr IV . Q20H [facility] Rx#:[id number] Oral 118 240 Output: Urine 100 Other: Voiding Method Toilet Toilet Bedside Commode # Bowel Movements 1 - Labs CBC & Chem 7: 02/22/24 09:19 02/22/24 09:19 Labs: Abnormal Lab Results - Last 24 Hours (Table) 02/21/24 02/21/24 02/22/24 Range/Units 12:46 12:46 09:19 WBC 14.1 H 11.6 H (3.8-10.6) k/uL RBC 2.61 L 2.31 L (3.80-5.40) m/uL Hgb 7.5 L 6.7 L* (11.4-16.0) gm/dL Hct 25.3 L 22.4 L (34.0-46.0) % MCHC 29.6 L 29.7 L (31.0-37.0) g/dL RDW 16.7 H 16.8 H (11.5-15.5) % Neutrophils # 10.0 H (1.3-7.7) k/uL Lymphocytes # 0.7 L (1.0-4.8) k/uL Sodium 133 L (137-145) mmol/L BUN 37 H (7-17) mg/dL Creatinine 1.33 H (0.52-1.04) mg/dL Glucose 140 H (74-99) mg/dL Calcium 8.3 L (8.4-10.2) mg/dL 02/22/24 Range/Units 09:19 WBC (3.8-10.6) k/uL RBC (3.80-5.40) m/uL Hgb (11.4-16.0) gm/dL Hct (34.0-46.0) % MCHC (31.0-37.0) g/dL RDW (11.5-15.5) % Neutrophils # (1.3-7.7) k/uL Lymphocytes # (1.0-4.8) k/uL Sodium 136 L (137-145) mmol/L BUN 27 H (7-17) mg/dL Creatinine 1.07 H (0.52-1.04) mg/dL Glucose 162 H (74-99) mg/dL Calcium 8.1 L (8.4-10.2) mg/dL Microbiology - Last 24 Hours (Table) 02/13/24 09:30 Fungal Culture - Preliminary Pleural Fluid
--- NOTE | 2024-02-22 15:43 | P.PN ---
Subjective Progress Note Date: 02/22/24 HISTORY OF PRESENTING ILLNESS 68-year-old female with PMH of CAD s/p PCI, PAD, HTN, dyslipidemia, CHF, med ication noncompliance, smoking. Cardiac cath in October 2023, stenting of mid LAD with previous stent in LCx which was patent. Echo October 2023 EF 30 to 35%, mild pulm hypertension, mild MR. February 12, 2024, patient was admitted with worsening shortness of breath and dyspnea on exertion. She was found to have right pleural effusion. On February 13, 2024 she underwent thoracentesis with 1.2 L fluid removal. Fluid analysis appears to be exudative in nature with total protein greater than 3.6, LDH 299. Patient reported left lower extremity pain. She is known to have PAD. She was evaluated by vascular surgery. CTA aorta with runoff found to have left external iliac artery occlusion, 90% stenosis of the left common femoral artery, occlusion of superficial femoral artery extending to the origin of popliteal artery on left. 02/18/2024, patient underwent left peripheral angiogram with s/p left external iliac artery percutaneous balloon angioplasty with stent 7 x 40. Common femoral artery had severe disease with 50% narrowing. TPA catheter was placed in. 02/18/2024 Currently patient is stable. She is on room air saturating well. She is not in respiratory distress. She continues to be on aspirin and Brilinta. BP 147/62, heart rate 77, Hemoglobin 11.6, WBC 10.7, BUN 31, creatinine 1.4 which is stable. 02/19/2024 Blood pressure 111 over 55 mmHg, heart rate 76, sinus rhythm on telemetry. No atrial fibrillation noticed on telemetry for last 24 hours. Hemoglobin 9.5, creatinine 1.4, sodium 135, potassium 3.4, BUN 23. Yesterday we added Entresto and discontinued losartan. Patient has tolerated well with good blood pressure control and no worsening renal function. She is planned for removal of TPA catheter in [employer] today by Dr. Infante. 02/20/2024 Since yesterday patient has been oliguric. Her kidney function has worsened. Her creatinine is 1.8, yesterday it was 1.4. Hemoglobin is 7.8 today yesterday it was 9.5. Patient underwent peripheral vascular procedure yesterday with minimal angioplasty and stenting of left SFA. Postintervention she had 1+ DP and PT pulses. Left lower extremity appears warm today with better circulation. For her poor kidney function, I will hold her Entresto, Aldactone and Lasix. She does not appear volume overloaded. February 22, 2024 Blood pressure 93/52, heart rate 88 bpm, sinus rhythm. Hemoglobin dropped to 6.5 today she is getting 1 unit of blood transfusion today. Patient's kidney function is improving. PHYSICAL EXAMINATION Head: Normocephalic. Eyes: Sclerae nonicteric. Neck: Brisk carotid upstroke, no jugular venous distention. Lungs: Reduced air entry bilateral bases, mild crackles audible Heart: Regular rate and rhythm, S1-S2, no S3, no murmur or rub. Abdomen: Soft nontender, Extremities: 1+ edema. Neuro: Alert, oritented, no focal deficits. Detailed neuro exam was not performed. ASSESSMENT Perioperative cardiac risk assessment for femoropopliteal bypass surgery Ischemic cardiomyopathy, HFrEF with a EF 30 to 35%, NYHA class III Acute hypoxic respiratory failure due to CHF exacerbation and right-sided pleural effusion, improving Large right pleural effusion, exudative in nature, status post 1.2 L fluid removal CAD s/p PCI October 2023, mid LAD PAD with left lower extremity resting pain. S/p left external iliac balloon angioplasty and stenting, BP catheter MARCY, oliguric, likely contrast-induced nephropathy, clinically improving COPD Smoking Dyslipidemia Essential hypertension Prior history of CVA/TIA PLAN Give 1 dose of p.o. Lasix 40 mg because patient is getting get a blood transfusion to prevent her to go into heart failure. Her kidney function is stable. Patient is at moderate to high risk for a high risk procedure. Patient's cardiac risk factors are nonmodifiable at this time. She does not have obvious cardiovascular contraindication to proceed with the surgery if needed. Continue aspirin, Brilinta 90 mg twice daily, Lipitor 80 mg daily metoprolol succinate 50 mg, Patient's renal function is improving and her urine output has picked up. Consider resuming Entresto, Aldactone, Farxiga in next 1 to 2 days depending on her blood pressure and her clinical state. Ronni Ellington MD, FACC, RPVI Thank you for allowing [facility] to participate in this patient's care. Feel free to reach out in case of any followup questions. Objective - Vital Signs Vital signs: Vital Signs Temp 99.4 F 02/22/24 13:33 Pulse 91 02/22/24 13:33 Resp 18 02/22/24 13:33 BP 93/52 02/22/24 13:33 Pulse Ox 93 L 02/22/24 13:33 FiO2 Intake & Output 02/21/24 02/22/24 02/22/24 18:59 06:59 18:59 Intake Total 428 476 Output Total 100 Balance 328 476 Weight 56.6 kg Intake: IV 310 Invasive Line 4 10 Sodium Chloride 0.9% 1, 300 000 ml @ 50 mls/hr IV . Q20H [facility] Rx#:[id number] Oral 118 476 Blood Product 0 Rc Pheresis 2 As3 Unit 0 [id number] Output: Urine 100 Other: Voiding Method Toilet Toilet Bedside Commode # Bowel Movements 1 - Labs CBC & Chem 7: 02/22/24 09:19 02/22/24 09:19 Labs: Abnormal Lab Results - Last 24 Hours (Table) 02/22/24 02/22/24 02/22/24 Range/Units 09:19 09:19 11:17 WBC 11.6 H (3.8-10.6) k/uL RBC 2.31 L (3.80-5.40) m/uL Hgb 6.7 L* (11.4-16.0) gm/dL Hct 22.4 L (34.0-46.0) % MCHC 29.7 L (31.0-37.0) g/dL RDW 16.8 H (11.5-15.5) % Neutrophils # 10.0 H (1.3-7.7) k/uL Lymphocytes # 0.7 L (1.0-4.8) k/uL Sodium 136 L (137-145) mmol/L BUN 27 H (7-17) mg/dL Creatinine 1.07 H (0.52-1.04) mg/dL Glucose 162 H (74-99) mg/dL Calcium 8.1 L (8.4-10.2) mg/dL Crossmatch See Detail Microbiology - Last 24 Hours (Table) 02/13/24 09:30 Fungal Culture - Preliminary Pleural Fluid
[2024-02-22] MEDS: FUROSEMIDE 40 MG TAB PO STA (15:47)
--- NOTE | 2024-02-22 16:17 | P.PN ---
Subjective Progress Note Date: 02/22/24 This is a 68-year-old female patient with a known history of hyperlipidemia, hypertension, coronary disease with previous stent placements and recent stent placement November 06, 2019 to the mid LAD, chronic and ongoing tobacco dependence. She also has ischemic cardiomyopathy with impaired left ventricular systolic function ejection fraction of 30 to 35%. She presented here to the emergency room late this morning with complaints of increasing shortness of breath and lower extremity edema right greater than left. She did admit to not taking her Lasix due to causing her to use the restroom too often. Chest x-ray shows a significant right-sided pleural effusion. Ultrasound measures it at 12.3 cm. Over the right lower extremity was negative for DVT. White count 8.4. Hemoglobin 12.0. Platelets 424. Sodium 140. Potassium 4.6. Bicarb 21. BUN 19. Creatinine 0.94. Glucose 174. The patient is seen today in the emergency department. She is awake and alert in no acute distress. She is maintaining O2 saturations in the 90s on 2 L/min per nasal cannula. The patient is seen today February 13, 2024 in follow-up on the regular medical floor. She is currently awake and alert in no acute distress. Maintaining O2 saturations in the 90s on room air. She is afebrile. Hemodynamically stable. Did undergo a right-sided thoracentesis today with 1.2 L of dark fluid removed. Fluid analysis and cytology pending. Follow-up chest x-ray continues to show some remaining fluid in the right lung base. No evidence of pneumothorax. Echocardiogram continues to show impaired left ventricular systolic function with ejection fraction of 30 to 35%. White count 15.2. Hemoglobin 11.8. Platelets 441. Sodium 144. Potassium 3.4. Bicarb 25. BUN 25. Creatinine 1.2. Glucose 145. BNP 49,000. She is continued on Lasix 40 mg IV every 12 hours. Remains on bronchodilators. Lovenox for DVT prophylaxis. Currently in a -120 mL balance. The patient is seen today February 14, 2024 in follow-up on the regular medical floor. She is sitting up in bed. Awake and alert in no acute distress. She is maintaining good O2 saturations in the 90s on room air. No IV fluids. She is breathing easier today compared to yesterday. She did undergo a right-sided thoracentesis with 1.2 L of fluid removed. Fluid analysis appears exudate with a total protein greater than 3.6 and LDH 299. Cytology is pending. Count 10.8. Hemoglobin 12.4. Platelets 435. Sodium 143. Potassium 3.3. Bicarb 28. BUN 27. Creatinine 1.4. Glucose 86. She remains on bronchodilators. Lovenox for DVT prophylaxis. Remains on IV Lasix and Aldactone. No accurate I & O. The patient is seen today February 15, 2024 in follow-up on the regular medical floor. She is awake and alert in no acute distress. Resting comfortably in bed. Denies any worsening shortness of breath, cough or congestion. She is maintaining good O2 saturations in the 90s on room air. No IV fluids. Pleural fluid cultures pending. Cytology pending. Venous Doppler of the left leg reveals no evidence of DVT. No new labs yet today. She remains on bronchodilators. Oral diuretics. Lovenox for DVT prophylaxis. The patient is seen today February 16, 2024 in follow-up on the regular medical floor. She is resting comfortably in bed. Awake and alert in no acute distress. She is maintaining O2 saturations in the 90s on 2 L/min per nasal cannula. No IV fluids. She does have complaints of lower extremity edema and pain. Ultrasound of the lower extremities revealed moderate peripheral vascular disease on the right. Nondiagnostic on the left. Vascular services are following. Pleural fluid cultures revealing no growth. Cytology negative for malignancy. Recent labs with white 4. Bicarb 29. BUN 32. Creatinine 1.4. Glucose 106. On 02/17/2024, the patient is being seen for a follow-up. The patient is being treated for an acute hypoxic failure secondary to CHF with a systolic heart failure patient has an ejection fraction of 30 to 35%. The patient has undergone previous thoracentesis with evacuation of around 1.2 L of pleural f luid on the right and the fluid was negative for malignancy. Patient is known to have coronary disease with previous stent placements back in October 2023. The patient is continuing to have some left lower extremity pain. The patient was seen by vascular surgery and the patient was kept n.p.o. after midnight for an angiogram and further intervention regarding suspected peripheral vascular disease. CTA of the aorta with runoff was done today and the patient was found to have left proximal external iliac artery occlusion with a stent like appearance of the lumen and up to 90% stenosis of the left common femoral artery and occlusion of the superficial femoral artery extending past the origin to the popliteal artery. 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 There is colonic diverticulosis. Bilateral nonobstructive renal artery calcifications. Moderate right pleural effusion. As such, Lovenox and Brilinta were placed on hold. She continues to have bilateral lower extremity pain left more than right. Her most recent blood work showed a hemoglobin of 11.6, BUN is at 31 with a creatinine of 1.4. Her GFR is at 41. She remains on Lasix 40 mg p.o. daily. She is also on Aldactone. She is currently on room air oxygen with a pulse ox of 93%. On today's evaluation on 02/18/2024, the patient underwent a right iliofemoral angiogram and selective angiogram of the distal popliteal artery and the patient underwent a external iliac artery percutaneous balloon angioplasty and insertion of a stent and tPA thrombolysis was initiated. Following that, the patient was broken to the intensive care unit. The patient has established external iliac artery patency. The common femoral had severe disease with approximately 50% narrowing. Superficial femoral artery access was established and the patient has a tPA catheter in place. She is calm and comfortable and currently she is on room air oxygen with a pulse ox of 92%. No significant respiratory distress. Blood work from today still pending. The patient remains on aspirin and Brilinta. noted the patient also has CHF with systolic heart failure with an ejection fraction of 30 to 35%. She has undergone previous thoracentesis of the right lung. The rest of the medications remain unchanged. With removal of 1.2 L of pleural fluid. 02/19/2024, the patient continues to have ischemic changes in the left lower extremity. There is a Doppler signal popliteal pulse on the left, absent posterior tibialis and dorsalis pedis on the left. Adequate pulse in the right lower extremity. The patient continues to have continuous tPA administration through the right femoral artery access and there is some bleeding noted at the catheter insertion site. Nevertheless, the patient has a stable hemoglobin. Noted the patient has undergone the left external iliac artery stenting with subsequent tPA thrombolysis. She is resting comfortably in bed. No significant respiratory difficulties. No evidence of any hematoma formation in the groin area. On examination, she does have cold ischemic changes in her left foot. Pain is improved compared to earlier. The plan is to do follow-up angiography today. Meanwhile, WBC count is at 10.1 hemoglobin 9.5 with a platelet count of 372, BUN is 33 with a creatinine of 1.42 and a sodium level of 135. Pulse ox is 97% liters of oxygen by nasal cannula. On 02/20/2024, the patient is doing well and she has no specific complaints. Note that the patient underwent another angiography yesterday and the angioplasty and stenting of the femoral artery was done with excellent results and the patient has a warm left lower extremity, warm foot with adequate pulses. No issues with pain. Urine output has dropped overnight and based on that, the patient was given a dose of Lasix 40 mg IV and the patient continued to have a low urine output. The hemoglobin today is at 7.3 today white cell count of 11.5 and a platelet count of 310. BUN is 40 with a creatinine of 1.8 and a sodium levels of 130. She is currently on 2 L of oxygen by nasal cannula with a pulse ox of 98%. Clinically stable. Hemodynamically stable. No other new complaints otherwise for now. No worsening shortness of breath. No chest pain. She remains on Lovenox 30 mg subcu for DVT prophylaxis. She was restarted back on a combination of aspirin and Brilinta. The catheter site over the right femoral artery is dry clean and intact and there is no hematoma formation or bleeding. On today's evaluation of 02/21/2024, the patient is being seen for a follow-up. The patient is doing well. She is on room air oxygen. No splint difficulties. No leg pain and she is able to ambulate. Pulses are present in the left lower extremity. White cell count of 14 with a hemoglobin 7.7 and platelet count of 350. Creatinine is at 1.33 with a BUN of 37 and sodium levels at 133. No specific complaints otherwise for now. The patient is currently on a combina tion of aspirin and Brilinta. No signs of any significant fluid overload. On 02/22/2024, the patient is being seen for a follow-up. The patient is doing well. She is calm and comfortable. No significant respiratory distress. The patient has adequate perfusion to the left lower extremity. Meanwhile, renal function is improved and the creatinine is down to 1.07 with a BUN of 27. Electrolytes are normal. The patient's hemoglobin is down to 6.7. The patient is going to receive units of packed RBC. The patient is currently on room air oxygen. No signs of any acute bleeding at this point in time and the patient is doing essentially well and condition is stable. BP is stable. Objective - Vital Signs Vital signs: Vital Signs Temp 98.7 F 02/22/24 08:00 Pulse 91 02/22/24 08:00 Resp 18 02/22/24 08:00 BP 96/45 02/22/24 08:00 Pulse Ox 97 02/22/24 08:00 FiO2 Intake & Output 02/21/24 02/22/24 02/22/24 18:59 06:59 18:59 Intake Total 428 240 Output Total 100 Balance 328 240 Weight 56.6 kg Intake: IV 310 Invasive Line 4 10 Sodium Chloride 0.9% 1, 300 000 ml @ 50 mls/hr IV . Q20H [facility] Rx#:[id number] Oral 118 240 Output: Urine 100 Other: Voiding Method Toilet Toilet Bedside Commode # Bowel Movements 1 - Exam GENERAL EXAM: Alert, pleasant 68-year-old female, on room air oxygen, resting in bed, in no apparent distress. HEAD: Normocephalic. EYES: Normal reaction of pupils, equal size. NOSE: Clear with pink turbinates. THROAT: No erythema or exudates. NECK: No masses, no JVD. CHEST: No chest wall deformity. LUNGS: Equal air entry with crackles in the bilateral bases right greater than left. Dullness. CVS: S1 and S2 normal with no audible murmur, regular rhythm. ABDOMEN: No hepatosplenomegaly, normal bowel sounds, no guarding or rigidity. SPINE: No scoliosis or deformity SKIN: No rashes CENTRAL NERVOUS SYSTEM: No focal deficits, tone is normal in all 4 extremities. EXTREMITIES: There is 1-peripheral edema right greater than left. No clubbing, left lower extremity is warm and there is adequate pulses in the dorsalis pedis and posterior tibialis and popliteal area. - Labs CBC & Chem 7: 02/22/24 09:19 02/22/24 09:19 Labs: Abnormal Lab Results - Last 24 Hours (Table) 02/21/24 02/21/24 02/22/24 Range/Units 12:46 12:46 09:19 WBC 14.1 H 11.6 H (3.8-10.6) k/uL RBC 2.61 L 2.31 L (3.80-5.40) m/uL Hgb 7.5 L 6.7 L* (11.4-16.0) gm/dL Hct 25.3 L 22.4 L (34.0-46.0) % MCHC 29.6 L 29.7 L (31.0-37.0) g/dL RDW 16.7 H 16.8 H (11.5-15.5) % Neutrophils # 10.0 H (1.3-7.7) k/uL Lymphocytes # 0.7 L (1.0-4.8) k/uL Sodium 133 L (137-145) mmol/L BUN 37 H (7-17) mg/dL Creatinine 1.33 H (0.52-1.04) mg/dL Glucose 140 H (74-99) mg/dL Calcium 8.3 L (8.4-10.2) mg/dL 02/22/24 Range/Units 09:19 WBC (3.8-10.6) k/uL RBC (3.80-5.40) m/uL Hgb (11.4-16.0) gm/dL Hct (34.0-46.0) % MCHC (31.0-37.0) g/dL RDW (11.5-15.5) % Neutrophils # (1.3-7.7) k/uL Lymphocytes # (1.0-4.8) k/uL Sodium 136 L (137-145) mmol/L BUN 27 H (7-17) mg/dL Creatinine 1.07 H (0.52-1.04) mg/dL Glucose 162 H (74-99) mg/dL Calcium 8.1 L (8.4-10.2) mg/dL Microbiology - Last 24 Hours (Table) 02/13/24 09:30 Fungal Culture - Preliminary Pleural Fluid Assessment and Plan Plan: Acute hypoxemic respiratory failure secondary to an acute exacerbation of chronic systolic congestive heart failure in a patient with a known ejection fraction of 30 to 35%, currently on room air oxygen Large right-sided pleural effusion secondary to above, s/p thoracentesis with 1.2 L removed. Fluid analysis reveals exudate, cultures revealed no growth and cytology negative for malignancy Coronary disease with previous stent placements most recently in October 2023 to the mid LAD Ischemic cardiomyopathy, currently inactive and stable Chronic lower pain with cerebrovascular disease and CTA of the aorta with runoff was done today and the patient was found to have left proximal external iliac artery occlusion with a stent like appearance of the lumen and up to 90% stenosis of the left common femoral artery and occlusion of the superficial femoral artery extending past the origin to the popliteal artery. 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 The patient was taken to the vascular lab and through a r ight femoral access, the patient underwent a Right iliofemoral angiogram, Left selective angiogram, third order to distal popliteal artery, Left external iliac artery percutaneous transluminal balloon angioplasty and stent 7 x 40 ever flex. The patient has a tPA into the left lower extremity. The patient had tPA thrombolysis of the left lower extremity. Due to ongoing ischemic changes in the left lower extremity, the patient underwent another angiography and stenting of the femoral artery. The patient has regained pulses in the left lower extremity. She is free of any pain and she has adequate pulses. She is on a combination of aspirin and Brilinta and the patient is also on Lovenox. Chronic and ongoing tobacco dependence Chronic obstructive pulmonary disease Hypertension Hyperlipidemia History of CVA/TIA Acute kidney injury, recovering in the renal function is normalized Acute on chronic anemia with a drop in hemoglobin down to 6.7. No evidence of any bleeding. Plan: Adequate blood flow to the left lower extremity without signs of any acute ischemia. Clinically improved. Currently on room air oxygen Monitor hemoglobin, transfuse the patient 1 unit of packed RBC No signs of bleeding Renal function is improving. Renal function has normalized Respiratory status is stable. Pleural fluid cytology negative for malignancy Continue diuretics and the patient is currently on a combination of Lasix and Aldactone Continue bronchodilators Patient is currently on hydralazine and beta-blockers with metoprolol 50 mg p.o. daily
[2024-02-22 20:10] LABS: Glucose,Whole Blood 120 mg/dL (70-110)
[2024-02-23 07:16] LABS: African American GFR (CKD) 54 (>60 ml/min/1.73 sqM); Anion Gap 6 mmol/L; Blood Urea Nitrogen 21 mg/dL (7-17); Calcium 8.1 mg/dL (8.4-10.2); Carbon Dioxide 25 mmol/L (22-30); Chloride 106 mmol/L (98-107); Glucose 90 mg/dL (74-99); Non-African American GFR(CKD) 47 (>60 ml/min/1.73 sqM); Potassium 4.2 mmol/L (3.5-5.1); Sodium 137 mmol/L (137-145)
[2024-02-23 07:22] LABS: Anisocytosis Slight; Basophils % (A) 0 %; Eosinophils # (A) 0.2 k/uL (0-0.7); Eosinophils % (A) 2 %; HCT 28.1 % (34.0-46.0); Hypochromasia Marked; Lymphocytes % (A) 9 %; MCHC 30.8 g/dL (31.0-37.0); MCV 94.3 fL (80.0-100.0); Mean Platelet Volume 7.7; Monocytes # (A) 0.6 k/uL (0-1.0); Monocytes % (A) 5 %; Neutrophils # (A) 9.7 k/uL (1.3-7.7); Neutrophils % (A) 83 %; Platelet Count 422 k/uL (150-450); Poikilocytosis Slight; RBC 2.98 m/uL (3.80-5.40); RDW 16.6 % (11.5-15.5); WBC 11.7 k/uL (3.8-10.6)
[2024-02-23 07:25] LABS: HGB 8.6 gm/dL (11.4-16.0)
[2024-02-23] MEDS: ENOXAPARIN 40 MG/0.4 ML SYRINGE SQ SCH (07:52)
--- NOTE | 2024-02-23 11:15 | P.PN ---
Subjective Progress Note Date: 02/23/24 Pt c/o LE pain and swelling, however, the lower extremity is now perfused with palpable pulse in the dorsal aspect of the left foot. Gen: In NAD, non-toxic HEENT: normocephalic, atraumatic, hearing acuity is intant, mucous membranes moist CVS: Poor perfusion to the left lower extremity, with dusky extremity, no pitting edema, Respiratory: symmetric chest expansion, no accessory muscle use, GI: soft, NTTP, ND, : no suprapubic tenderness, no CVA tenderness MSK/Derm: no rashes, cyanosis Neuro: CN II-XII intact, no motor weakness, Psych: cooperative, euthymic mood, judgment and insight is intact Hospital course: Patient is a 68-year-old female with a PMH of systolic CHF EF 30 to 35%, CAD wi th stents, hypertension, hyperlipidemia, COPD, and tobacco abuse who presented to the emergency room with complaints of lower extremity edema, shortness of breath, and cough. Chest x-ray in the emergency room revealed a consolidative opacification involving the right anterior and inferior hemithorax with prominent cardiomegaly. EKG revealed normal sinus rhythm at 60 bpm with T wave inversion in leads V4 to V6 with flattening in lead aVF. Laboratory evaluation revealed WBC count 8.4, hemoglobin 12.0, glucose of 174, total bilirubin 1.9, troponin 0.020, with platelet count 424. Patient was initially admitted for heart failure, cardiology was consulted, patient was successfully diuresed back to room air. However, she notably was complaining of left lower extremity pain and was found to have dusky extremity. Vascular surgery was consulted, ordered ABIs which were inconclusive, ordered CT abdomen with runoff which did demonstrate significant peripheral arterial disease. Patient was subsequently taken to the OR and underwent angiogram with successful stent placing in a staged procedure, with tPA infusion following. Patient had successful return of pulse to her lower extremity, and was successfully stepdown to the floor. She did have a drop in hemoglobin following her procedure and required 1 unit of packed red blood cell transfusion on 02/21 with appropriate response. Patient is a medically stable for discharge on 02/22, however, her discharge was delayed for outpatient planning of vascular surgery follow-up, cardiology follow-up, appropriate receipt of medications, as well as arrangement of home care services. Assessment/plan: Acute systolic CHF exacerbation with acute hypoxic respiratory failure, ejection fraction 30 to 35% Significant right-sided pleural effusion -cardiology evaluating patient, cleared from their end for surgery with udnerstanding that patient is high risk for high risk procedure with no modifiable risk factors -lasix PO -I/Os, dailiy weights -pulmonology consulted, pt is s/p thoracentesis, which is exudative, cytology pending -duonebs PAD Acute Blood Loss Anemia -vascular surgery consulted -cardiology consult appreciated -Status post 1U PRBC Chronic conditions: CAD status post stents, hypertension, hyperlipidemia, COPD -home meds reviewed and reconciled DVT prophylaxis: Lovenox Subq on hold Disposition: Home CODE STATUS: Full Code Discussed with: Patient Anticipated discharge place: Home Objective - Vital Signs Vital signs: Vital Signs Temp 98.4 F 02/23/24 08:00 Pulse 98 02/23/24 08:00 Resp 18 02/23/24 08:00 BP 119/62 02/23/24 08:00 Pulse Ox 94 L 02/23/24 08:00 FiO2 Intake & Output 02/22/24 02/23/24 02/23/24 18:59 06:59 18:59 Intake Total 1015 540 480 Balance 1015 540 480 Intake: Oral 716 540 480 Blood Product 299 Rc Pheresis 2 As3 Unit 299 [id number] Other 0 Rc Pheresis 2 As3 Unit 0 [id number] Other: Voiding Method Bedside Commode Bedside Commode Bedside Commode # Voids 1 1 2 # Bowel Movements 1 - Labs CBC & Chem 7: 02/23/24 06:07 02/23/24 06:07 Labs: Abnormal Lab Results - Last 24 Hours (Table) 02/22/24 02/22/24 02/23/24 Range/Units 11:17 20:08 06:07 WBC 11.7 H (3.8-10.6) k/uL RBC 2.98 L (3.80-5.40) m/uL Hgb 8.6 L D (11.4-16.0) gm/dL Hct 28.1 L (34.0-46.0) % MCHC 30.8 L (31.0-37.0) g/dL RDW 16.6 H (11.5-15.5) % Neutrophils # 9.7 H (1.3-7.7) k/uL BUN (7-17) mg/dL Creatinine (0.52-1.04) mg/dL POC Glucose (mg/dL) 120 H (70-110) mg/dL Calcium (8.4-10.2) mg/dL Crossmatch See Detail 02/23/24 Range/Units 06:07 WBC (3.8-10.6) k/uL RBC (3.80-5.40) m/uL Hgb (11.4-16.0) gm/dL Hct (34.0-46.0) % MCHC (31.0-37.0) g/dL RDW (11.5-15.5) % Neutrophils # (1.3-7.7) k/uL BUN 21 H (7-17) mg/dL Creatinine 1.19 H (0.52-1.04) mg/dL POC Glucose (mg/dL) (70-110) mg/dL Calcium 8.1 L (8.4-10.2) mg/dL Crossmatch
--- NOTE | 2024-02-23 12:08 | P.PN ---
Subjective Progress Note Date: 02/23/24 This is a 68-year-old female patient with a known history of hyperlipidemia, hypertension, coronary disease with previous stent placements and recent stent placement November 06, 2019 to the mid LAD, chronic and ongoing tobacco dependence. She also has ischemic cardiomyopathy with impaired left ventricular systolic function ejection fraction of 30 to 35%. She presented here to the emergency room late this morning with complaints of increasing shortness of breath and lower extremity edema right greater than left. She did admit to not taking her Lasix due to causing her to use the restroom too often. Chest x-ray shows a significant right-sided pleural effusion. Ultrasound measures it at 12.3 cm. Over the right lower extremity was negative for DVT. White count 8.4. Hemoglobin 12.0. Platelets 424. Sodium 140. Potassium 4.6. Bicarb 21. BUN 19. Creatinine 0.94. Glucose 174. The patient is seen today in the emergency department. She is awake and alert in no acute distress. She is maintaining O2 saturations in the 90s on 2 L/min per nasal cannula. The patient is seen today February 13, 2024 in follow-up on the regular medical floor. She is currently awake and alert in no acute distress. Maintaining O2 saturations in the 90s on room air. She is afebrile. Hemodynamically stable. Did undergo a right-sided thoracentesis today with 1.2 L of dark fluid removed. Fluid analysis and cytology pending. Follow-up chest x-ray continues to show some remaining fluid in the right lung base. No evidence of pneumothorax. Echocardiogram continues to show impaired left ventricular systolic function with ejection fraction of 30 to 35%. White count 15.2. Hemoglobin 11.8. Platelets 441. Sodium 144. Potassium 3.4. Bicarb 25. BUN 25. Creatinine 1.2. Glucose 145. BNP 49,000. She is continued on Lasix 40 mg IV every 12 hours. Remains on bronchodilators. Lovenox for DVT prophylaxis. Currently in a -120 mL balance. The patient is seen today February 14, 2024 in follow-up on the regular medical floor. She is sitting up in bed. Awake and alert in no acute distress. She is maintaining good O2 saturations in the 90s on room air. No IV fluids. She is breathing easier today compared to yesterday. She did undergo a right-sided thoracentesis with 1.2 L of fluid removed. Fluid analysis appears exudate with a total protein greater than 3.6 and LDH 299. Cytology is pending. Count 10.8. Hemoglobin 12.4. Platelets 435. Sodium 143. Potassium 3.3. Bicarb 28. BUN 27. Creatinine 1.4. Glucose 86. She remains on bronchodilators. Lovenox for DVT prophylaxis. Remains on IV Lasix and Aldactone. No accurate I & O. The patient is seen today February 15, 2024 in follow-up on the regular medical floor. She is awake and alert in no acute distress. Resting comfortably in bed. Denies any worsening shortness of breath, cough or congestion. She is maintaining good O2 saturations in the 90s on room air. No IV fluids. Pleural fluid cultures pending. Cytology pending. Venous Doppler of the left leg reveals no evidence of DVT. No new labs yet today. She remains on bronchodilators. Oral diuretics. Lovenox for DVT prophylaxis. The patient is seen today February 16, 2024 in follow-up on the regular medical floor. She is resting comfortably in bed. Awake and alert in no acute distress. She is maintaining O2 saturations in the 90s on 2 L/min per nasal cannula. No IV fluids. She does have complaints of lower extremity edema and pain. Ultrasound of the lower extremities revealed moderate peripheral vascular disease on the right. Nondiagnostic on the left. Vascular services are following. Pleural fluid cultures revealing no growth. Cytology negative for malignancy. Recent labs with white 4. Bicarb 29. BUN 32. Creatinine 1.4. Glucose 106. On 02/17/2024, the patient is being seen for a follow-up. The patient is being treated for an acute hypoxic failure secondary to CHF with a systolic heart failure patient has an ejection fraction of 30 to 35%. The patient has undergone previous thoracentesis with evacuation of around 1.2 L of pleural f luid on the right and the fluid was negative for malignancy. Patient is known to have coronary disease with previous stent placements back in October 2023. The patient is continuing to have some left lower extremity pain. The patient was seen by vascular surgery and the patient was kept n.p.o. after midnight for an angiogram and further intervention regarding suspected peripheral vascular disease. CTA of the aorta with runoff was done today and the patient was found to have left proximal external iliac artery occlusion with a stent like appearance of the lumen and up to 90% stenosis of the left common femoral artery and occlusion of the superficial femoral artery extending past the origin to the popliteal artery. 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 There is colonic diverticulosis. Bilateral nonobstructive renal artery calcifications. Moderate right pleural effusion. As such, Lovenox and Brilinta were placed on hold. She continues to have bilateral lower extremity pain left more than right. Her most recent blood work showed a hemoglobin of 11.6, BUN is at 31 with a creatinine of 1.4. Her GFR is at 41. She remains on Lasix 40 mg p.o. daily. She is also on Aldactone. She is currently on room air oxygen with a pulse ox of 93%. On today's evaluation on 02/18/2024, the patient underwent a right iliofemoral angiogram and selective angiogram of the distal popliteal artery and the patient underwent a external iliac artery percutaneous balloon angioplasty and insertion of a stent and tPA thrombolysis was initiated. Following that, the patient was broken to the intensive care unit. The patient has established external iliac artery patency. The common femoral had severe disease with approximately 50% narrowing. Superficial femoral artery access was established and the patient has a tPA catheter in place. She is calm and comfortable and currently she is on room air oxygen with a pulse ox of 92%. No significant respiratory distress. Blood work from today still pending. The patient remains on aspirin and Brilinta. noted the patient also has CHF with systolic heart failure with an ejection fraction of 30 to 35%. She has undergone previous thoracentesis of the right lung. The rest of the medications remain unchanged. With removal of 1.2 L of pleural fluid. 02/19/2024, the patient continues to have ischemic changes in the left lower extremity. There is a Doppler signal popliteal pulse on the left, absent posterior tibialis and dorsalis pedis on the left. Adequate pulse in the right lower extremity. The patient continues to have continuous tPA administration through the right femoral artery access and there is some bleeding noted at the catheter insertion site. Nevertheless, the patient has a stable hemoglobin. Noted the patient has undergone the left external iliac artery stenting with subsequent tPA thrombolysis. She is resting comfortably in bed. No significant respiratory difficulties. No evidence of any hematoma formation in the groin area. On examination, she does have cold ischemic changes in her left foot. Pain is improved compared to earlier. The plan is to do follow-up angiography today. Meanwhile, WBC count is at 10.1 hemoglobin 9.5 with a platelet count of 372, BUN is 33 with a creatinine of 1.42 and a sodium level of 135. Pulse ox is 97% liters of oxygen by nasal cannula. On 02/20/2024, the patient is doing well and she has no specific complaints. Note that the patient underwent another angiography yesterday and the angioplasty and stenting of the femoral artery was done with excellent results and the patient has a warm left lower extremity, warm foot with adequate pulses. No issues with pain. Urine output has dropped overnight and based on that, the patient was given a dose of Lasix 40 mg IV and the patient continued to have a low urine output. The hemoglobin today is at 7.3 today white cell count of 11.5 and a platelet count of 310. BUN is 40 with a creatinine of 1.8 and a sodium levels of 130. She is currently on 2 L of oxygen by nasal cannula with a pulse ox of 98%. Clinically stable. Hemodynamically stable. No other new complaints otherwise for now. No worsening shortness of breath. No chest pain. She remains on Lovenox 30 mg subcu for DVT prophylaxis. She was restarted back on a combination of aspirin and Brilinta. The catheter site over the right femoral artery is dry clean and intact and there is no hematoma formation or bleeding. On today's evaluation of 02/21/2024, the patient is being seen for a follow-up. The patient is doing well. She is on room air oxygen. No splint difficulties. No leg pain and she is able to ambulate. Pulses are present in the left lower extremity. White cell count of 14 with a hemoglobin 7.7 and platelet count of 350. Creatinine is at 1.33 with a BUN of 37 and sodium levels at 133. No specific complaints otherwise for now. The patient is currently on a combina tion of aspirin and Brilinta. No signs of any significant fluid overload. On 02/22/2024, the patient is being seen for a follow-up. The patient is doing well. She is calm and comfortable. No significant respiratory distress. The patient has adequate perfusion to the left lower extremity. Meanwhile, renal function is improved and the creatinine is down to 1.07 with a BUN of 27. Electrolytes are normal. The patient's hemoglobin is down to 6.7. The patient is going to receive units of packed RBC. The patient is currently on room air oxygen. No signs of any acute bleeding at this point in time and the patient is doing essentially well and condition is stable. BP is stable. 02/23/2024, the patient's hemoglobin is stable at 8.6 and the patient received a unit of packed RBC yesterday. Has no specific complaints. The patient remains on room air oxygen. Adequate circulation and pulses in the left lower extremity. No leg pain. White cell count 11.7, hemoglobin 8.6, BUN 21 with a creatinine of 1.1. Remains on aspirin. Remains on Brilinta. Remains on metoprolol 50 mg daily and hydralazine 25 mg twice daily. Remains on Lipitor. Remains on Lovenox for DVT prophylaxis. Objective - Vital Signs Vital signs: Vital Signs Temp 97.9 F 02/23/24 04:00 Pulse 83 02/23/24 04:00 Resp 18 02/23/24 04:00 BP 98/49 02/23/24 04:00 Pulse Ox 93 L 02/23/24 04:00 FiO2 Intake & Output 02/22/24 02/23/24 02/23/24 18:59 06:59 18:59 Intake Total 1015 540 240 Balance 1015 540 240 Intake: Oral 716 540 240 Blood Product 299 Rc Pheresis 2 As3 Unit 299 [id number] Other 0 Rc Pheresis 2 As3 Unit 0 [id number] Other: Voiding Method Bedside Commode Bedside Commode # Voids 1 1 # Bowel Movements 1 - Exam GENERAL EXAM: Alert, pleasant 68-year-old female, on room air oxygen, resting in bed, in no apparent distress. HEAD: Normocephalic. EYES: Normal reaction of pupils, equal size. NOSE: Clear with pink turbinates. THROAT: No erythema or exudates. NECK: No masses, no JVD. CHEST: No chest wall deformity. LUNGS: Equal air entry with crackles in the bilateral bases right greater than left. Dullness. CVS: S1 and S2 normal with no audible murmur, regular rhythm. ABDOMEN: No hepatosplenomegaly, normal bowel sounds, no guarding or rigidity. SPINE: No scoliosis or deformity SKIN: No rashes CENTRAL NERVOUS SYSTEM: No focal deficits, tone is normal in all 4 extremities. EXTREMITIES: There is 1-peripheral edema right greater than left. No clubbing, left lower extremity is warm and there is adequate pulses in the dorsalis pedis and posterior tibialis and popliteal area. - Labs CBC & Chem 7: 02/23/24 06:07 02/23/24 06:07 Labs: Abnormal Lab Results - Last 24 Hours (Table) 02/22/24 02/22/24 02/22/24 Range/Units 09:19 09:19 11:17 WBC 11.6 H (3.8-10.6) k/uL RBC 2.31 L (3.80-5.40) m/uL Hgb 6.7 L* (11.4-16.0) gm/dL Hct 22.4 L (34.0-46.0) % MCHC 29.7 L (31.0-37.0) g/dL RDW 16.8 H (11.5-15.5) % Neutrophils # 10.0 H (1.3-7.7) k/uL Lymphocytes # 0.7 L (1.0-4.8) k/uL Sodium 136 L (137-145) mmol/L BUN 27 H (7-17) mg/dL Creatinine 1.07 H (0.52-1.04) mg/dL Glucose 162 H (74-99) mg/dL POC Glucose (mg/dL) (70-110) mg/dL Calcium 8.1 L (8.4-10.2) mg/dL Crossmatch See Detail 02/22/24 02/23/24 02/23/24 Range/Units 20:08 06:07 06:07 WBC 11.7 H (3.8-10.6) k/uL RBC 2.98 L (3.80-5.40) m/uL Hgb 8.6 L D (11.4-16.0) gm/dL Hct 28.1 L (34.0-46.0) % MCHC 30.8 L (31.0-37.0) g/dL RDW 16.6 H (11.5-15.5) % Neutrophils # 9.7 H (1.3-7.7) k/uL Lymphocytes # (1.0-4.8) k/uL Sodium (137-145) mmol/L BUN 21 H (7-17) mg/dL Creatinine 1.19 H (0.52-1.04) mg/dL Glucose (74-99) mg/dL POC Glucose (mg/dL) 120 H (70-110) mg/dL Calcium 8.1 L (8.4-10.2) mg/dL Crossmatch Assessment and Plan Plan: Acute hypoxemic respiratory failure secondary to an acute exacerbation of chronic systolic congestive heart failure in a patient with a known ejection fraction of 30 to 35%, currently on room air oxygen Large right-sided pleural effusion secondary to above, s/p thoracentesis with 1.2 L removed. Fluid analysis reveals exudate, cultures revealed no growth and cytology negative for malignancy Coronary disease with previous stent placements most recently in October 2023 to the mid LAD Ischemic cardiomyopathy, currently inactive and stable Chronic lower pain with cerebrovascular disease and CTA of the aorta with runoff was done today and the patient was found to have left proximal external iliac artery occlusion with a stent like appearance of the lumen and up to 90% stenosis of the left common femoral artery and occlusion of the superficial femoral artery extending past the origin to the popliteal artery. 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 The patient was taken to the vascular lab and through a right femoral access, the patient underwent a Right iliofemoral angiogram, Left selective angiogram, third order to distal popliteal artery, Left external iliac artery percutaneous transluminal balloon angioplasty and stent 7 x 40 ever flex. The patient has a tPA into the left lower extremity. The patient had tPA thrombolysis of the left lower extremity. Due to ongoing ischemic changes in the left lower extremity, the patient underwent another angiography and stenting of the femoral artery. The patient has regained pulses in the left lower extremity. She is free of any pain and she has adequate pulses. She is on a combination of aspirin and Brilinta and the patient is also on Lovenox. Chronic and ongoing tobacco dependence Chronic obstructive pulmonary disease Hypertension Hyperlipidemia History of CVA/TIA Acute kidney injury, recovering in the renal function is normalized Acute on chronic anemia with a drop in hemoglobin down to 6.7. Received a unit of packed RBC and hemoglobin is up to 8.6 Plan: Adequate blood flow to the left lower extremity without signs of any acute ischemia. Clinically improved. Currently on room air oxygen Monitor hemoglobin, hemoglobin stable and improved No signs of bleeding Renal function is improving. Renal function has normalized Respiratory status is stable. Pleural fluid cytology negative for malignancy Consider restarting diuretics Continue bronchodilators Patient is currently on hydralazine and beta-blockers with metoprolol 50 mg p.o. daily Home today
--- NOTE | 2024-02-23 17:41 | P.PN ---
Subjective Progress Note Date: 02/23/24 HISTORY OF PRESENTING ILLNESS 68-year-old female with PMH of CAD s/p PCI, PAD, HTN, dyslipidemia, CHF, med ication noncompliance, smoking. Cardiac cath in October 2023, stenting of mid LAD with previous stent in LCx which was patent. Echo October 2023 EF 30 to 35%, mild pulm hypertension, mild MR. February 12, 2024, patient was admitted with worsening shortness of breath and dyspnea on exertion. She was found to have right pleural effusion. On February 13, 2024 she underwent thoracentesis with 1.2 L fluid removal. Fluid analysis appears to be exudative in nature with total protein greater than 3.6, LDH 299. Patient reported left lower extremity pain. She is known to have PAD. She was evaluated by vascular surgery. CTA aorta with runoff found to have left external iliac artery occlusion, 90% stenosis of the left common femoral artery, occlusion of superficial femoral artery extending to the origin of popliteal artery on left. 02/18/2024, patient underwent left peripheral angiogram with s/p left external iliac artery percutaneous balloon angioplasty with stent 7 x 40. Common femoral artery had severe disease with 50% narrowing. TPA catheter was placed in. 02/18/2024 Currently patient is stable. She is on room air saturating well. She is not in respiratory distress. She continues to be on aspirin and Brilinta. BP 147/62, heart rate 77, Hemoglobin 11.6, WBC 10.7, BUN 31, creatinine 1.4 which is stable. 02/19/2024 Blood pressure 111 over 55 mmHg, heart rate 76, sinus rhythm on telemetry. No atrial fibrillation noticed on telemetry for last 24 hours. Hemoglobin 9.5, creatinine 1.4, sodium 135, potassium 3.4, BUN 23. Yesterday we added Entresto and discontinued losartan. Patient has tolerated well with good blood pressure control and no worsening renal function. She is planned for removal of TPA catheter in [facility] today by Dr. Infante. 02/20/2024 Since yesterday patient has been oliguric. Her kidney function has worsened. Her creatinine is 1.8, yesterday it was 1.4. Hemoglobin is 7.8 today yesterday it was 9.5. Patient underwent peripheral vascular procedure yesterday with minimal angioplasty and stenting of left SFA. Postintervention she had 1+ DP and PT pulses. Left lower extremity appears warm today with better circulation. For her poor kidney function, I will hold her Entresto, Aldactone and Lasix. She does not appear volume overloaded. February 22, 2024 Blood pressure 93/52, heart rate 88 bpm, sinus rhythm. Hemoglobin dropped to 6.5 today she is getting 1 unit of blood transfusion today. Patient's kidney function is improving. February 23, 2024 BP 122/68, heart rate 94, sinus rhythm. Hemoglobin 8.6. S/p 1 unit of blood transfusion yesterday. Creatinine 1.19. Patient is tolerating oral diet. I will discontinue IV fluids. Denies any chest pain chest pressure. Still reports left foot pain, left foot is warm to touch PHYSICAL EXAMINATION Head: Normocephalic. Eyes: Sclerae nonicteric. Neck: Brisk carotid upstroke, no jugular venous distention. Lungs: Reduced air entry bilateral bases, mild crackles audible Heart: Regular rate and rhythm, S1-S2, no S3, no murmur or rub. Abdomen: Soft nontender, Extremities: 1+ edema left foot Neuro: Alert, oritented, no focal deficits. Detailed neuro exam was not performed. ASSESSMENT Perioperative cardiac risk assessment for femoropopliteal bypass surgery Ischemic cardiomyopathy, HFrEF with a EF 30 to 35%, NYHA class III Acute hypoxic respiratory failure due to CHF exacerbation and right-sided pleural effusion, improving Large right pleural effusion, exudative in nature, status post 1.2 L fluid removal CAD s/p PCI October 2023, mid LAD PAD with left lower extremity resting pain. S/p left external iliac balloon angioplasty and stenting, BP catheter MARCY, oliguric, likely contrast-induced nephropathy, clinically improving COPD Smoking Dyslipidemia Essential hypertension Prior history of CVA/TIA PLAN Discontinue IV fluid Patient is at moderate to high risk for a high risk procedure. Patient's cardiac risk factors are nonmodifiable at this time. She does not have obvious cardiovascular contraindication to proceed with the surgery if needed. Continue aspirin, Brilinta 90 mg twice daily, Lipitor 80 mg daily metoprolol succinate 50 mg, Add Aldactone 25 mg daily and Farxiga 10 mg daily from tomorrow. Still not able to start Entresto due to low normal blood pressure. Consider resuming Entresto, in next 1 to 2 days depending on her blood pressure and her clinical state. Objective - Vital Signs Vital signs: Vital Signs Temp 98.1 F 02/23/24 15:28 Pulse 94 02/23/24 15:28 Resp 16 02/23/24 15:28 BP 122/68 02/23/24 15:28 Pulse Ox 96 02/23/24 15:28 FiO2 Intake & Output 02/22/24 02/23/24 02/23/24 18:59 06:59 18:59 Intake Total 1015 540 480 Balance 1015 540 480 Intake: Oral 716 540 480 Blood Product 299 Rc Pheresis 2 As3 Unit 299 [id number] Other 0 Rc Pheresis 2 As3 Unit 0 [id number] Other: Voiding Method Bedside Commode Bedside Commode Bedside Commode # Voids 1 1 1 # Bowel Movements 1 1 - Labs CBC & Chem 7: 02/23/24 06:07 02/23/24 06:07 Labs: Abnormal Lab Results - Last 24 Hours (Table) 02/22/24 02/23/24 02/23/24 Range/Units 20:08 06:07 06:07 WBC 11.7 H (3.8-10.6) k/uL RBC 2.98 L (3.80-5.40) m/uL Hgb 8.6 L D (11.4-16.0) gm/dL Hct 28.1 L (34.0-46.0) % MCHC 30.8 L (31.0-37.0) g/dL RDW 16.6 H (11.5-15.5) % Neutrophils # 9.7 H (1.3-7.7) k/uL BUN 21 H (7-17) mg/dL Creatinine 1.19 H (0.52-1.04) mg/dL POC Glucose (mg/dL) 120 H (70-110) mg/dL Calcium 8.1 L (8.4-10.2) mg/dL
[2024-02-24] MEDS: DAPAGLIFLOZIN PROPANEDIOL 10 MG TABLET PO SCH (08:32)
[2024-02-24] MEDS: SPIRONOLACTONE 25 MG TAB PO SCH (08:32)
[2024-02-24 09:35] LABS: Anisocytosis Slight; Basophils % (A) 0 %; Eosinophils # (A) 0.2 k/uL (0-0.7); Eosinophils % (A) 2 %; HCT 29.3 % (34.0-46.0); HGB 8.8 gm/dL (11.4-16.0); Hypochromasia Marked; Lymphocytes # (A) 0.9 k/uL (1.0-4.8); Lymphocytes % (A) 8 %; MCH 29.3 pg (25.0-35.0); MCHC 30.1 g/dL (31.0-37.0); MCV 97.3 fL (80.0-100.0); Macrocytosis Slight; Mean Platelet Volume 7.3; Monocytes # (A) 0.5 k/uL (0-1.0); Monocytes % (A) 4 %; Neutrophils # (A) 10.3 k/uL (1.3-7.7); Neutrophils % (A) 86 %; Platelet Count 457 k/uL (150-450); RBC 3.01 m/uL (3.80-5.40); RDW 16.9 % (11.5-15.5)
[2024-02-24 09:55] LABS: African American GFR (CKD) 65 (>60 ml/min/1.73 sqM); Anion Gap 7 mmol/L; Blood Urea Nitrogen 20 mg/dL (7-17); Calcium 8.3 mg/dL (8.4-10.2); Carbon Dioxide 23 mmol/L (22-30); Chloride 108 mmol/L (98-107); Glucose 111 mg/dL (74-99); Magnesium 1.7 mg/dL (1.6-2.3); Non-African American GFR(CKD) 57 (>60 ml/min/1.73 sqM); Potassium 4.5 mmol/L (3.5-5.1); Sodium 138 mmol/L (137-145)
--- NOTE | 2024-02-24 10:02 | P.PN ---
Subjective Progress Note Date: 02/24/24 HISTORY OF PRESENTING ILLNESS 68-year-old female with PMH of CAD s/p PCI, PAD, HTN, dyslipidemia, CHF, med ication noncompliance, smoking. Cardiac cath in October 2023, stenting of mid LAD with previous stent in LCx which was patent. Echo October 2023 EF 30 to 35%, mild pulm hypertension, mild MR. February 12, 2024, patient was admitted with worsening shortness of breath and dyspnea on exertion. She was found to have right pleural effusion. On February 13, 2024 she underwent thoracentesis with 1.2 L fluid removal. Fluid analysis appears to be exudative in nature with total protein greater than 3.6, LDH 299. Patient reported left lower extremity pain. She is known to have PAD. She was evaluated by vascular surgery. CTA aorta with runoff found to have left external iliac artery occlusion, 90% stenosis of the left common femoral artery, occlusion of superficial femoral artery extending to the origin of popliteal artery on left. 02/18/2024, patient underwent left peripheral angiogram with s/p left external iliac artery percutaneous balloon angioplasty with stent 7 x 40. Common femoral artery had severe disease with 50% narrowing. TPA catheter was placed in. 02/18/2024 Currently patient is stable. She is on room air saturating well. She is not in respiratory distress. She continues to be on aspirin and Brilinta. BP 147/62, heart rate 77, Hemoglobin 11.6, WBC 10.7, BUN 31, creatinine 1.4 which is stable. 02/19/2024 Blood pressure 111 over 55 mmHg, heart rate 76, sinus rhythm on telemetry. No atrial fibrillation noticed on telemetry for last 24 hours. Hemoglobin 9.5, creatinine 1.4, sodium 135, potassium 3.4, BUN 23. Yesterday we added Entresto and discontinued losartan. Patient has tolerated well with good blood pressure control and no worsening renal function. She is planned for removal of TPA catheter in [facility] today by Dr. Infante. 02/20/2024 Since yesterday patient has been oliguric. Her kidney function has worsened. Her creatinine is 1.8, yesterday it was 1.4. Hemoglobin is 7.8 today yesterday it was 9.5. Patient underwent peripheral vascular procedure yesterday with minimal angioplasty and stenting of left SFA. Postintervention she had 1+ DP and PT pulses. Left lower extremity appears warm today with better circulation. For her poor kidney function, I will hold her Entresto, Aldactone and Lasix. She does not appear volume overloaded. February 22, 2024 Blood pressure 93/52, heart rate 88 bpm, sinus rhythm. Hemoglobin dropped to 6.5 today she is getting 1 unit of blood transfusion today. Patient's kidney function is improving. February 23, 2024 BP 122/68, heart rate 94, sinus rhythm. Hemoglobin 8.6. S/p 1 unit of blood transfusion yesterday. Creatinine 1.19. Patient is tolerating oral diet. I will discontinue IV fluids. Denies any chest pain chest pressure. Still reports left foot pain, left foot is warm to touch 02/23 Patient continues to complain of pain in her left foot that she states is unchanged from arrival. She denies having any chest pain. She states her evening was okay with no events. Patient does have a pulse on the left lower extremity. Blood pressure is 129/61, heart rate 85, pulse ox 97% on room air, afebrile. Repeat blood work reveals hemoglobin of 8.8 and patient is status post 1 unit packed RBCs for hemoglobin of 6.7 on 02/21. WBC 12. Creatinine 1.02. Potassium 4.5. Magnesium 1.7. Patient is maintained on aspirin 81 mg, atorvastatin, Toprol XL,and Brilinta. Farxiga and Aldactone 25 mg daily starting today PHYSICAL EXAMINATION Head: Normocephalic. Eyes: Sclerae nonicteric. Neck: Brisk carotid upstroke, no jugular venous distention. Lungs: Reduced air entry bilateral bases, mild crackles audible Heart: Regular rate and rhythm, S1-S2, no S3, no murmur or rub. Abdomen: Soft nontender, Extremities: 1+ edema left foot, dorsalis pedis palpable. Neuro: Alert, oritented, no focal deficits. Detailed neuro exam was not performed. ASSESSMENT Perioperative cardiac risk assessment for femoropopliteal bypass surgery Ischemic cardiomyopathy, HFrEF with a EF 30 to 35%, NYHA class III Acute hypoxic respiratory failure due to CHF exacerbation and right-sided pleural effusion, improving Large right pleural effusion, exudative in nature, status post 1.2 L fluid removal CAD s/p PCI October 2023, mid LAD PAD with left lower extremity resting pain. S/p left external iliac balloon angioplasty and stenting, BP catheter MARCY, oliguric, likely contrast-induced nephropathy, clinically improving COPD Smoking Dyslipidemia Essential hypertension Prior history of CVA/TIA PLAN Continue aspirin, Brilinta 90 mg twice daily, Lipitor 80 mg daily, metoprolol s uccinate 50 mg Aldactone 25 mg daily and Farxiga 10 mg daily started this morning Start patient on Entresto 24-26 mg twice daily. Monitor blood pressure closely Nurse practitioner note has been reviewed, I agree with documented findings and plan of care. Patient was seen and examined. Objective - Vital Signs Vital signs: Vital Signs Temp 97.9 F 02/24/24 04:01 Pulse 85 02/24/24 04:01 Resp 16 02/24/24 04:01 BP 129/61 02/24/24 04:01 Pulse Ox 97 02/24/24 04:01 FiO2 Intake & Output 02/23/24 02/24/24 02/24/24 18:59 06:59 18:59 Intake Total 480 Balance 480 Weight 57.2 kg Intake: Oral 480 Other: Voiding Method Bedside Commode Bedside Commode # Voids 1 1 # Bowel Movements 1 - Labs CBC & Chem 7: 02/24/24 08:04 02/24/24 08:04
[2024-02-24 11:08] VITALS: RESP 18
--- NOTE | 2024-02-24 12:09 | P.DS ---
Providers Date of admission: 02/12/24 04:45 Expected date of discharge: 02/24/24 Attending physician: Bandar Rodriguez MD Consults: 02/12/24 04:41 Consult Physician Urgent Consulting Provider: Liu Viveros Consult Reason/Comments: R pleural effusion Do you want consulting provider notified?: Yes 02/14/24 16:49 Consult Physician Routine Consulting Provider: Mao William Consult Reason/Comments: left leg circulation issues Do you want consulting provider notified?: Yes, Notify in am 02/17/24 10:13 Consult Physician Routine Consulting Provider: Sandip Wolfe Consult Reason/Comments: cardiac clearance for possible fem bypass Do you want consulting provider notified?: Yes Primary care physician: Stated None Hospital Course: Patient is a 68-year-old female with a PMH of systolic CHF EF 30 to 35%, CAD with stents, hypertension, hyperlipidemia, COPD, and tobacco abuse who presented to the emergency room with complaints of lower extremity edema, shortness of breath, and cough. Chest x-ray in the emergency room revealed a consolidative opacification involving the right anterior and inferior hemithorax with prominent cardiomegaly. EKG revealed normal sinus rhythm at 60 bpm with T wave inversion in leads V4 to V6 with flattening in lead aVF. Laboratory evaluation revealed WBC count 8.4, hemoglobin 12.0, glucose of 174, total bilirubin 1.9, troponin 0.020, with platelet count 424. Patient was initially admitted for heart failure, cardiology was consulted, patient was successfully diuresed back to room air. However, she notably was complaining of left lower extremity pain and was found to have dusky extremity. Vascular surgery was consulted, ordered ABIs which were inconclusive, ordered CT abdomen with runoff which did demonstrate significant peripheral arterial disease. Patient was subsequently taken to the OR and underwent angiogram with successful stent placing in a staged procedure, with tPA infusion following. Patient had successful return of pulse to her lower extremity, and was successfully stepdown to the floor. She did have a drop in hemoglobin following her procedure and required 1 unit of packed red blood cell transfusion on 02/21 with appropriate response. 02/23 Patient was seen and examined. Reports neuropathic pain in the LLE, pins and needles. Adamant about going home. CBC WBC 12, Hg 8.8 Hct 29.3, Plt 457. BMP Cl 108, BUN 20, glu 111, Ca 8.3. Started on Entresto by Cardiology. Plans for discharge home today with outpatient follow up with Cardiology, Pulmonary, Vascular surgery if Cardiology cleared. Advised to follow up results of thoracentesis with Pulmonary. She will go home with home health. New medications include Brilinta 90 mg PO BID, Aldactone 20 mg PO QD, Entresto PO BID and Farxiga 10 mg PO QD. [place] prescribed PRN for pain. Her Lasix has been discontinued due to borderline low BP and MARCY. General: non toxic, no distress, appears at stated age Derm: warm, dry Head: atraumatic, normocephalic, symmetric Eyes: EOMI, no lid lag, anicteric sclera Mouth: no lip lesion, mucus membranes moist Cardiovascular: S1S2 reg, no murmur, positive posterior tibial pulse bilateral LLE, Lungs: CTA bilateral, no rhonchi, no rales , no accessory muscle use Ext: no gross muscle atrophy, no edema, no contractures Neuro: no focal neuro deficits Psych: Alert, oriented, appropriate affect Pertinent procedures include thoracentesis, US guided right common gemoral artery acess and L external iliac artery percutaneous transluminal balloon angioplasty and stent Discharge Diagnosis: Acute systolic CHF exacerbation with acute hypoxic respiratory failure, ejection fraction 30 to 35% Significant right-sided pleural effusion LLE PAD with near occlusion Acute blood loss anemia MARCY on CKD stage IIIa CAD status post stents Hypertension Hyperlipidemia COPD This complex discharge took 35 minutes to complete. Patient Condition at Discharge: Stable Plan - Discharge Summary New Discharge Prescriptions: New Nicotine 14Mg/24Hr Patch [Habitrol] 1 patch TRANSDERM DAILY #42 patch Spironolactone [Aldactone] 25 mg PO DAILY #30 tab Sacubitril/Valsartan [Entresto 24 mg-26 mg Tablet] 1 each PO BID #60 tab HYDROcodone/APAP 5-325MG [[place] 5-325] 1 tab PO Q4HR PRN 3 Days #18 tab PRN Reason: Pain Ticagrelor [Brilinta] 90 mg PO BID #60 tab Dapagliflozin Propanediol [Farxiga] 10 mg PO DAILY #30 tab Acetaminophen Tab [Tylenol] 650 mg PO Q6HR PRN tab PRN Reason: Mild Pain Or Fever > 100.5 Continue hydrALAZINE HCL [Apresoline] 25 mg PO BID #180 tab Aspirin 81 mg PO DAILY #90 tab Nitroglycerin Sl Tabs [Nitrostat] 0.4 mg SUBLINGUAL Q5M PRN #100 tab PRN Reason: Chest Pain Metoprolol Tartrate [Lopressor] 50 mg PO BID #180 tab Atorvastatin [Lipitor] 80 mg PO DAILY #0 methocarbamoL [Robaxin-750] 1,500 mg PO TID PRN #30 tab PRN Reason: Pain Diclofenac Sodium Gel [Voltaren 1% Gel] 4 gm TOPICAL QID PRN #100 gm PRN Reason: Pain Discontinued Losartan [Cozaar] 100 mg PO DAILY #180 tab Furosemide [Lasix] 40 mg PO DAILY #90 tab Discharge Medication List Aspirin 81 mg PO DAILY #90 tab 11/07/23 [Rx] Atorvastatin [Lipitor] 80 mg PO DAILY #0 11/07/23 [Rx] Metoprolol Tartrate [Lopressor] 50 mg PO BID #180 tab 11/07/23 [Rx] Nitroglycerin Sl Tabs [Nitrostat] 0.4 mg SUBLINGUAL Q5M PRN #100 tab 11/07/23 [Rx] hydrALAZINE HCL [Apresoline] 25 mg PO BID #180 tab 11/07/23 [Rx] Diclofenac Sodium Gel [Voltaren 1% Gel] 4 gm TOPICAL QID PRN #100 gm 12/11/23 [Rx] methocarbamoL [Robaxin-750] 1,500 mg PO TID PRN #30 tab 12/11/23 [Rx] Nicotine 14Mg/24Hr Patch [Habitrol] 1 patch TRANSDERM DAILY #42 patch 02/20/24 [Rx] Acetaminophen Tab [Tylenol] 650 mg PO Q6HR PRN tab 02/22/24 [Rx] Dapagliflozin Propanediol [Farxiga] 10 mg PO DAILY #30 tab 02/22/24 [Rx] Ticagrelor [Brilinta] 90 mg PO BID #60 tab 02/22/24 [Rx] HYDROcodone/APAP 5-325MG [[place] 5-325] 1 tab PO Q4HR PRN 3 Days #18 tab 02/24/24 [Rx] Sacubitril/Valsartan [Entresto 24 mg-26 mg Tablet] 1 each PO BID #60 tab 02/24/24 [Rx] Spironolactone [Aldactone] 25 mg PO DAILY #30 tab 02/24/24 [Rx] Follow up Appointment(s)/Referral(s): Javier Colbert MD [STAFF PHYSICIAN] - 1 Week [place] [NON-STAFF] - 1 Week Eliana Infante DO [STAFF PHYSICIAN] - 03/04/24 9:00 am None,Stated [Primary Care Provider] - 1-2 days Channing Robles MD [STAFF PHYSICIAN] - 1 Week Patient Instructions/Handouts: How to Stop Smoking (DC), Peripheral Artery Disease (DC) Activity/Diet/Wound Care/Special Instructions: Patient will stay with friend post discharge at [address] [place] [facility] notified of address. Discharge Disposition: HOME SELF-CARE
[2024-02-24] MEDS: SACUBITRIL/VALSARTAN 24 MG-26 MG TABLET PO SCH (12:29)
--- NOTE | 2024-02-24 13:32 | P.PN ---
Subjective Progress Note Date: 02/24/24 Principal diagnosis: Acute hypoxic respiratory failure secondary to acute on chronic systolic congestive heart failure This is a 68-year-old female patient with a known history of hyperlipidemia, hypertension, coronary disease with previous stent placements and recent stent placement November 06, 2019 to the mid LAD, chronic and ongoing tobacco dependence. She also has ischemic cardiomyopathy with impaired left ventricular systolic function ejection fraction of 30 to 35%. She presented here to the emergency room late this morning with complaints of increasing shortness of breath and lower extremity edema right greater than left. She did admit to not taking her Lasix due to causing her to use the restroom too often. Chest x-ray shows a significant right-sided pleural effusion. Ultrasound measures it at 12.3 cm. Over the right lower extremity was negative for DVT. White count 8.4. Hemoglobin 12.0. Platelets 424. Sodium 140. Potassium 4.6. Bicarb 21. BUN 19. Creatinine 0.94. Glucose 174. The patient is seen today in the emergency department. She is awake and alert in no acute distress. She is maintaining O2 saturations in the 90s on 2 L/min per nasal cannula. The patient is seen today February 13, 2024 in follow-up on the regular medical floor. She is currently awake and alert in no acute distress. Maintaining O2 saturations in the 90s on room air. She is afebrile. Hemodynamically stable. Did undergo a right-sided thoracentesis today with 1.2 L of dark fluid removed. Fluid analysis and cytology pending. Follow-up chest x-ray continues to show some remaining fluid in the right lung base. No evidence of pneumothorax. Echocardiogram continues to show impaired left ventricular systolic function with ejection fraction of 30 to 35%. White count 15.2. Hemoglobin 11.8. Platelets 441. Sodium 144. Potassium 3.4. Bicarb 25. BUN 25. Creatinine 1.2. Glucose 145. BNP 49,000. She is continued on Lasix 40 mg IV every 12 hours. Remains on bronchodilators. Lovenox for DVT prophylaxis. Currently in a -120 mL balance. The patient is seen today February 14, 2024 in follow-up on the regular medical floor. She is sitting up in bed. Awake and alert in no acute distress. She is maintaining good O2 saturations in the 90s on room air. No IV fluids. She is breathing easier today compared to yesterday. She did undergo a right-sided thoracentesis with 1.2 L of fluid removed. Fluid analysis appears exudate with a total protein greater than 3.6 and LDH 299. Cytology is pending. Count 10.8. Hemoglobin 12.4. Platelets 435. Sodium 143. Potassium 3.3. Bicarb 28. BUN 27. Creatinine 1.4. Glucose 86. She remains on bronchodilators. Lovenox for DVT prophylaxis. Remains on IV Lasix and Aldactone. No accurate I & O. The patient is seen today February 15, 2024 in follow-up on the regular medical floor. She is awake and alert in no acute distress. Resting comfortably in bed. Denies any worsening shortness of breath, cough or congestion. She is maintaining good O2 saturations in the 90s on room air. No IV fluids. Pleural fluid cultures pending. Cytology pending. Venous Doppler of the left leg reveals no evidence of DVT. No new labs yet today. She remains on bronchodilators. Oral diuretics. Lovenox for DVT prophylaxis. The patient is seen today February 16, 2024 in follow-up on the regular medical floor. She is resting comfortably in bed. Awake and alert in no acute distress. She is maintaining O2 saturations in the 90s on 2 L/min per nasal cannula. No IV fluids. She does have complaints of lower extremity edema and pain. Ultrasound of the lower extremities revealed moderate peripheral vascular disease on the right. Nondiagnostic on the left. Vascular services are following. Pleural fluid cultures revealing no growth. Cytology negative for malignancy. Recent labs with white 4. Bicarb 29. BUN 32. Creatinine 1.4. Glucose 106. On 02/17/2024, the patient is being seen for a follow-up. The patient is being treated for an acute hypoxic failure secondary to CHF with a systolic heart mervat lure patient has an ejection fraction of 30 to 35%. The patient has undergone previous thoracentesis with evacuation of around 1.2 L of pleural fluid on the right and the fluid was negative for malignancy. Patient is known to have coronary disease with previous stent placements back in October 2023. The patient is continuing to have some left lower extremity pain. The patient was seen by vascular surgery and the patient was kept n.p.o. after midnight for an angiogram and further intervention regarding suspected peripheral vascular disease. CTA of the aorta with runoff was done today and the patient was found to have left proximal external iliac artery occlusion with a stent like appeara nce of the lumen and up to 90% stenosis of the left common femoral artery and occlusion of the superficial femoral artery extending past the origin to the popliteal artery. 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 There is colonic diverticulosis. Bilateral nonobstructive renal artery calcifications. Moderate right pleural effusion. As such, Lovenox and Brilinta were placed on hold. She continues to have bilateral lower extremity pain left more than right. Her most recent blood work showed a hemoglobin of 11.6, BUN is at 31 with a creatinine of 1.4. Her GFR is at 41. She remains on Lasix 40 mg p.o. daily. She is also on Aldactone. She is currently on room air oxygen with a pulse ox of 93%. On today's evaluation on 02/18/2024, the patient underwent a right iliofemoral angiogram and selective angiogram of the distal popliteal artery and the patient underwent a external iliac artery percutaneous balloon angioplasty and insertion of a stent and tPA thrombolysis was initiated. Following that, the patient was broken to the intensive care unit. The patient has established external iliac artery patency. The common femoral had severe disease with approximately 50% narrowing. Superficial femoral artery access was established and the patient has a tPA catheter in place. She is calm and comfortable and currently she is on room air oxygen with a pulse ox of 92%. No significant respiratory distress. Blood work from today still pending. The patient remains on aspirin and Brilinta. noted the patient also has CHF with systolic heart failure with an ejection fraction of 30 to 35%. She has undergone previous thoracentesis of the right lung. The rest of the medications remain unchanged. With removal of 1.2 L of pleural fluid. 02/19/2024, the patient continues to have ischemic changes in the left lower extremity. There is a Doppler signal popliteal pulse on the left, absent posterior tibialis and dorsalis pedis on the left. Adequate pulse in the right lower extremity. The patient continues to have continuous tPA administration through the right femoral artery access and there is some bleeding noted at the catheter insertion site. Nevertheless, the patient has a stable hemoglobin. Noted the patient has undergone the left external iliac artery stenting with subsequent tPA thrombolysis. She is resting comfortably in bed. No significant respiratory difficulties. No evidence of any hematoma formation in the groin area. On examination, she does have cold ischemic changes in her left foot. Pain is improved compared to earlier. The plan is to do follow-up angiography today. Meanwhile, WBC count is at 10.1 hemoglobin 9.5 with a platelet count of 372, BUN is 33 with a creatinine of 1.42 and a sodium level of 135. Pulse ox is 97% liters of oxygen by nasal cannula. On 02/20/2024, the patient is doing well and she has no specific complaints. Note that the patient underwent another angiography yesterday and the angioplasty and stenting of the femoral artery was done with excellent results and the patient has a warm left lower extremity, warm foot with adequate pulses. No issues with pain. Urine output has dropped overnight and based on that, the patient was given a dose of Lasix 40 mg IV and the patient continued to have a low urine output. The hemoglobin today is at 7.3 today white cell count of 11.5 and a platelet count of 310. BUN is 40 with a creatinine of 1.8 and a sodium l evels of 130. She is currently on 2 L of oxygen by nasal cannula with a pulse ox of 98%. Clinically stable. Hemodynamically stable. No other new complaints otherwise for now. No worsening shortness of breath. No chest pain. She remains on Lovenox 30 mg subcu for DVT prophylaxis. She was restarted back on a combination of aspirin and Brilinta. The catheter site over the right femoral artery is dry clean and intact and there is no hematoma formation or bleeding. On today's evaluation of 02/21/2024, the patient is being seen for a follow-up. The patient is doing well. She is on room air oxygen. No splint difficulties. No leg pain and she is able to ambulate. Pulses are present in the left lower extremity. White cell count of 14 with a hemoglobin 7.7 and platelet count of 350. Creatinine is at 1.33 with a BUN of 37 and sodium levels at 133. No specific complaints otherwise for now. The patient is currently on a combination of aspirin and Brilinta. No signs of any significant fluid overload. On 02/22/2024, the patient is being seen for a follow-up. The patient is doing well. She is calm and comfortable. No significant respiratory distress. The patient has adequate perfusion to the left lower extremity. Meanwhile, renal function is improved and the creatinine is down to 1.07 with a BUN of 27. Electrolytes are normal. The patient's hemoglobin is down to 6.7. The patient is going to receive units of packed RBC. The patient is currently on room air oxygen. No signs of any acute bleeding at this point in time and the patient is doing essentially well and condition is stable. BP is stable. 02/23/2024, the patient's hemoglobin is stable at 8.6 and the patient received a unit of packed RBC yesterday. Has no specific complaints. The patient remains on room air oxygen. Adequate circulation and pulses in the left lower extremity. No leg pain. White cell count 11.7, hemoglobin 8.6, BUN 21 with a creatinine of 1.1. Remains on aspirin. Remains on Brilinta. Remains on metoprolol 50 mg daily and hydralazine 25 mg twice daily. Remains on Lipitor. Remains on Lovenox for DVT prophylaxis. Patient was seen today on 02/24/2024, patient is doing well, feeling better, breathing easier. Patient is on room air with O2 saturation of 98%. Remains on multiple cardiac meds including Aldactone 25 mg daily, she is also on Entresto twice daily, and she is maintained on bronchodilators in the form of DuoNeb. Patient is feeling better compared to admission, she had a large pleural effusion requiring thoracentesis on her initial admission. Echocardiogram on this admission showed ejection fraction of 30 to 35% Objective - Vital Signs Vital signs: Vital Signs Temp 98.4 F 02/24/24 08:00 Pulse 82 02/24/24 08:00 Resp 18 02/24/24 08:00 BP 129/61 02/24/24 04:01 Pulse Ox 98 02/24/24 08:00 FiO2 Intake & Output 02/23/24 02/24/24 02/24/24 18:59 06:59 18:59 Intake Total 480 120 Balance 480 120 Weight 57.2 kg Intake: Oral 480 120 Other: Voiding Method Bedside Commode Bedside Commode Bedside Commode # Voids 1 1 # Bowel Movements 1 - Exam GENERAL EXAM: Reveals 68-year-old female in no distress on room air. HEAD: Normocephalic. EYES: Normal reaction of pupils, equal size. NOSE: Clear with pink turbinates. THROAT: No erythema or exudates. NECK: No masses, no JVD. CHEST: No chest wall deformity. LUNGS: Good breath sound bilaterally no crackles rhonchi or wheezes CVS: Distant S1-S2, no S3 gallop. ABDOMEN: No hepatosplenomegaly, normal bowel sounds, no guarding or rigidity. SKIN: No rashes CENTRAL NERVOUS SYSTEM: Alert oriented x 3 no gross focal deficit EXTREMITIES: Trace of bipedal edema - Labs CBC & Chem 7: 02/24/24 08:04 02/24/24 08:04 Labs: Abnormal Lab Results - Last 24 Hours (Table) 02/24/24 02/24/24 Range/Units 08:04 08:04 WBC 12.0 H (3.8-10.6) k/uL RBC 3.01 L (3.80-5.40) m/uL Hgb 8.8 L (11.4-16.0) gm/dL Hct 29.3 L (34.0-46.0) % MCHC 30.1 L (31.0-37.0) g/dL RDW 16.9 H (11.5-15.5) % Plt Count 457 H (150-450) k/uL Neutrophils # 10.3 H (1.3-7.7) k/uL Lymphocytes # 0.9 L (1.0-4.8) k/uL Chloride 108 H (98-107) mmol/L BUN 20 H (7-17) mg/dL Glucose 111 H (74-99) mg/dL Calcium 8.3 L (8.4-10.2) mg/dL Assessment and Plan Assessment: Impression: Acute hypoxic respiratory failure secondary to acute on chronic systolic congestive heart failure Large right-sided pleural effusion requiring thoracentesis, 1.2 L removed Ischemic cardiomyopathy Chronic and ongoing tobacco dependence Underlying COPD Dyslipidemia History of CVA Acute on chronic anemia patient received a unit of packed RBCs since admission Recommendation: Continue diuretics Continue Entresto Continue bronchodilators for underlying COPD Fluid cytology was noted to be negative for malignancy Consider discharge planning and follow-up on outpatient basis with Dr. Robles Time with Patient: Less than 30
[2024-02-24 15:01] VITALS: BP 123/69; PULSE 78; TEMP 98.2
== END 2024-02-24 17:02 | disposition home or self-care (01) | DRG 252 ==
LOC: EC 02:16 → 4SSUR 04:45 → 3SCARD 02-18 10:32 → 2SICU 02-18 10:42 → 3SCARD 02-21 13:34
PROVIDERS: ADMIT Internal Medicine; ATTEND Internal Medicine
PROC: 0W993ZZ Drainage of Right Pleural Cavity, Percutaneous Approach (ICD-10-PCS; principal; 2024-02-13)
PROC: B44BZZ3 Ultrasonography of Other Intra-Abdominal Arteries, Intravascular (ICD-10-PCS; 2024-02-18)
PROC: 3E05317 Introduction of Other Thrombolytic into Peripheral Artery, Percutaneous Approach (ICD-10-PCS; 2024-02-18)
PROC: 047J34Z Dilation of Left External Iliac Artery with Drug-eluting Intraluminal Device, Percutaneous Approach (ICD-10-PCS; 2024-02-18 09:30)
PROC: 04HD3DZ Insertion of Intraluminal Device into Left Common Iliac Artery, Percutaneous Approach (ICD-10-PCS; 2024-02-18 09:30)
PROC: 04HL3DZ Insertion of Intraluminal Device into Left Femoral Artery, Percutaneous Approach (ICD-10-PCS; 2024-02-18 09:30)
PROC: 047L34Z Dilation of Left Femoral Artery with Drug-eluting Intraluminal Device, Percutaneous Approach (ICD-10-PCS; 2024-02-18 09:30)
PROC: 0W993ZZ Drainage of Right Pleural Cavity, Percutaneous Approach (ICD-10-PCS; 2024-02-19)
PROC: B41F1ZZ Fluoroscopy of Right Lower Extremity Arteries using Low Osmolar Contrast (ICD-10-PCS; 2024-02-19)
PROC: B41G1ZZ Fluoroscopy of Left Lower Extremity Arteries using Low Osmolar Contrast (ICD-10-PCS; 2024-02-19)
PROC: B4101ZZ Fluoroscopy of Abdominal Aorta using Low Osmolar Contrast (ICD-10-PCS; 2024-02-19)
PROC: B41G1ZZ Fluoroscopy of Left Lower Extremity Arteries using Low Osmolar Contrast (ICD-10-PCS; 2024-02-19)
PROC: B41C1ZZ Fluoroscopy of Pelvic Arteries using Low Osmolar Contrast (ICD-10-PCS; 2024-02-19)
PROC: B41F1ZZ Fluoroscopy of Right Lower Extremity Arteries using Low Osmolar Contrast (ICD-10-PCS; 2024-02-19)
PROC: 05HA33Z Insertion of Infusion Device into Left Brachial Vein, Percutaneous Approach (ICD-10-PCS; 2024-02-21)
PROC: 05HC33Z Insertion of Infusion Device into Left Basilic Vein, Percutaneous Approach (ICD-10-PCS; 2024-02-21)
PROC: 30233N1 Transfusion of Nonautologous Red Blood Cells into Peripheral Vein, Percutaneous Approach (ICD-10-PCS; 2024-02-22)
DX: I13.0 Hypertensive heart and chronic kidney disease with heart failure and stage 1 through stage 4 chronic kidney disease, or unspecified chronic kidney disease (principal); I50.23 Acute on chronic systolic (congestive) heart failure; J96.01 Acute respiratory failure with hypoxia; I74.5 Embolism and thrombosis of iliac artery; N17.9 Acute kidney failure, unspecified; D62 Acute posthemorrhagic anemia; J91.8 Pleural effusion in other conditions classified elsewhere; J44.9 Chronic obstructive pulmonary disease, unspecified; I11.0 Hypertensive heart disease with heart failure; I25.5 Ischemic cardiomyopathy; I27.20 Pulmonary hypertension, unspecified; I70.8 Atherosclerosis of other arteries; N18.31 Chronic kidney disease, stage 3a; E78.5 Hyperlipidemia, unspecified; I25.10 Atherosclerotic heart disease of native coronary artery without angina pectoris; E11.22 Type 2 diabetes mellitus with diabetic chronic kidney disease; E11.51 Type 2 diabetes mellitus with diabetic peripheral angiopathy without gangrene; I25.2 Old myocardial infarction; F17.210 Nicotine dependence, cigarettes, uncomplicated; I34.0 Nonrheumatic mitral (valve) insufficiency; Z86.73 Personal history of transient ischemic attack (TIA), and cerebral infarction without residual deficits; M19.90 Unspecified osteoarthritis, unspecified site; Z79.01 Long term (current) use of anticoagulants; Z79.899 Other long term (current) drug therapy; Z79.82 Long term (current) use of aspirin; Z95.5 Presence of coronary angioplasty implant and graft; Z91.148 Patient's other noncompliance with medication regimen for other reason; Z82.49 Family history of ischemic heart disease and other diseases of the circulatory system; Z79.02 Long term (current) use of antithrombotics/antiplatelets; I70.202 Unspecified atherosclerosis of native arteries of extremities, left leg
CPT/HCPCS: 36410; 36415; 37211; 37214; 37221; 37226; 37252; 37253; 71045; 71046; 75635; 75710; 76604; 76937; 80048; 80053; 82945; 83615; 83735; 83880; 84132; 84157; 84484; 85025; 85027; 85384; 85610; 85730; 86850; 86900; 86901; 86920; 87070; 87102; 87116; 87205; 87206; 87496; 87498; 87502; 87529; 87634; 87635; 87798; 88108; 88305; 89050; 93005; 93308; 93923; 94640; 94760; 96372; 96374; 96375; 99285

== ENCOUNTER 2024-07-24 15:18 | Inpatient (IN) | payer MEDICARE ==
[2024-07-24] MEDS ORDERED: RX INFO: IV CONTRAST WAS GIVEN 1 EACH MISC MISCELLANE PRN (15:30)
[2024-07-24] MEDS ORDERED: HEPARIN SODIUM 1,000 UN/ML (10ML VL) IV PRN (15:49)
--- NOTE | 2024-07-24 15:59 | US ---
EXAMINATION TYPE: US venous doppler duplex LE LT DATE OF EXAM: 07/24/2024 3:31 PM COMPARISON: NONE CLINICAL INDICATION: Female, 69 years old with history of pain/pulseless; pain and pulselessness in l eft leg, TECHNIQUE: The lower extremity deep venous system is examined utilizing real time linear array sonog jose with graded compression, color doppler sonography, and spectral doppler. SIDE PERFORMED: Left FINDINGS: VESSELS IMAGED: Common Femoral Vein Deep Femoral Vein Greater Saphenous Vein * Femoral Vein Popliteal Vein Small Saphenous Vein * Proximal Calf Veins (* superficial vessels) Left Leg: Echoes seen in prox femoral vein down to the calf veins. No blood flow seen in these veins and no compressibility. , IMPRESSION: Positive deep vein to most of the left lower extremity extending from the femoral vein to the calf ve ins. Findings communicated to Dr. Liu Sen MD on 07/24/2024 3:[address] Liu Peter. [facility], , 07/24/2024 3:57 PM
[2024-07-24 16:22] LABS: Prothrombin Time 11.1 sec (10.0-12.5)
[2024-07-24 16:23] LABS: ALT 150 U/L (4-34); AST 213 U/L (14-36); African American GFR (CKD) 78 (>60 ml/min/1.73 sqM); Albumin 3.3 g/dL (3.5-5.0); Alkaline Phosphatase 107 U/L (38-126); Anion Gap 8 mmol/L; Blood Urea Nitrogen 21 mg/dL (7-17); Calcium 8.3 mg/dL (8.4-10.2); Carbon Dioxide 26 mmol/L (22-30); Chloride 103 mmol/L (98-107); Glucose 109 mg/dL (74-99); Magnesium 1.9 mg/dL (1.6-2.3); Non-African American GFR(CKD) 67 (>60 ml/min/1.73 sqM); Potassium 4.4 mmol/L (3.5-5.1); Sodium 137 mmol/L (137-145); Total Bilirubin 0.7 mg/dL (0.2-1.3); Total Protein 6.8 g/dL (6.3-8.2)
[2024-07-24 16:24] LABS: Anisocytosis Slight; Basophils % (A) 0 %; Eosinophils # (A) 0.1 k/uL (0-0.7); Eosinophils % (A) 1 %; HCT 28.6 % (34.0-46.0); HGB 8.9 gm/dL (11.4-16.0); Hypochromasia Marked; Lymphocytes % (A) 14 %; MCHC 31.1 g/dL (31.0-37.0); MCV 93.1 fL (80.0-100.0); Macrocytosis Slight; Mean Platelet Volume 6.9; Monocytes # (A) 0.4 k/uL (0-1.0); Monocytes % (A) 6 %; Neutrophils # (A) 5.1 k/uL (1.3-7.7); Neutrophils % (A) 76 %; Platelet Count 387 k/uL (150-450); RBC 3.07 m/uL (3.80-5.40); RDW 19.5 % (11.5-15.5); WBC 6.7 k/uL (3.8-10.6)
[2024-07-24 16:30] LABS: Partial Thromboplastin Time 20.3 sec (22.0-30.0)
[2024-07-24] MEDS: HYDROmorphone 0.5 MG/0.5 ML SYRINGE IVP STA (16:32)
--- NOTE | 2024-07-24 16:34 | ED ---
General Adult HPI - General Chief complaint: Extremity Injury, Lower Stated complaint: Blood clot dbt left extremity Time Seen by Provider: 07/24/24 15:21 Source: patient, RN notes reviewed, old records reviewed Mode of arrival: EMS Limitations: no limitations - History of Present Illness Initial comments: 69-year-old female presenting with pain to the left leg. 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 Patient apparently has had pain in the left leg for the past 3 days. She had an outpatient venous ultrasound which showed DVT. She was a prior smoker. - Related Data Previous Rx's Medication Instructions Recorded Aspirin 81 mg PO DAILY #90 tab 11/07/23 Atorvastatin [Lipitor] 80 mg PO DAILY #0 11/07/23 Metoprolol Tartrate [Lopressor] 50 mg PO BID #180 tab 11/07/23 Nitroglycerin Sl Tabs [Nitrostat] 0.4 mg SUBLINGUAL Q5M PRN #100 tab 11/07/23 hydrALAZINE HCL [Apresoline] 25 mg PO BID #180 tab 11/07/23 Diclofenac Sodium Gel [Voltaren 1% 4 gm TOPICAL QID PRN #100 gm 12/11/23 Gel] methocarbamoL [Robaxin-750] 1,500 mg PO TID PRN #30 tab 12/11/23 Nicotine 14Mg/24Hr Patch [Habitrol] 1 patch TRANSDERM DAILY #42 patch 02/20/24 Acetaminophen Tab [Tylenol] 650 mg PO Q6HR PRN tab 02/22/24 Dapagliflozin Propanediol [Farxiga] 10 mg PO DAILY #30 tab 02/22/24 Ticagrelor [Brilinta] 90 mg PO BID #60 tab 02/22/24 HYDROcodone/APAP 5-325MG [[place] 1 tab PO Q4HR PRN 3 Days #18 tab 02/24/24 5-325] HYDROcodone/APAP 5-325MG [[place] 1 tab PO Q4HR PRN 3 Days #18 tab 02/24/24 5-325] Sacubitril/Valsartan [Entresto 24 1 each PO BID #60 tab 02/24/24 mg-26 mg Tablet] Spironolactone [Aldactone] 25 mg PO DAILY #30 tab 02/24/24 Allergies Allergy/AdvReac Type Severity Reaction Status Date / Time No Known Allergies Allergy Verified 02/12/24 09:51 Review of Systems ROS Statement: Those systems with pertinent positive or pertinent negative responses have been documented in the HPI. ROS Other: All systems not noted in ROS Statement are negative. Past Medical History Past Medical History: Coronary Artery Disease (CAD), CVA/TIA, GERD/Reflux, Hyperlipidemia, Hypertension, Myocardial Infarction ([place]), Osteoarthritis (OA), Skin Disorder Additional Past Medical History / Comment(s): hx migraines, TIA- FRACTURED RIGHT ANKLE 1/2 CAST Last Myocardial Infarction Date:: History of Any Multi-Drug Resistant Organisms: MRSA Date of last positivie culture/infection: 02/21/18 MDRO Source:: NECK Past Surgical History: Heart Catheterization With Stent, Orthopedic Surgery, Tubal Ligation Additional Past Surgical History / Comment(s): left ankle surgery fracture- pins and plate inserted. 2 cardiac stents, neck surgery Past Anesthesia/Blood Transfusion Reactions: No Reported Reaction Date of Last Stent Placement:: 09/2016 Past Psychological History: No Psychological Hx Reported Smoking Status: Current every day smoker Past Alcohol Use History: Occasional Past Drug Use History: None Reported - Past Family History Mother Family Medical History: Hypertension, Myocardial Infarction ([place]) Sister(s) Family Medical History: CVA/TIA, Hypertension, Myocardial Infarction ([place]) Father Family Medical History: Cancer Additional Family Medical History / Comment(s): colon CA Brother(s) Family Medical History: Coronary Artery Disease (CAD), CVA/TIA Additional Family Medical History / Comment(s): CABG General Exam Limitations: no limitations General appearance: alert, in no apparent distress Head exam: Present: atraumatic, normocephalic Eye exam: Present: normal appearance, PERRL ENT exam: Present: normal exam Neck exam: Present: normal inspection. Absent: tenderness, meningismus Respiratory exam: Present: normal lung sounds bilaterally. Absent: respiratory distress, wheezes Cardiovascular Exam: Present: regular rate, normal rhythm GI/Abdominal exam: Present: soft. Absent: distended, tenderness, guarding Extremities exam: Present: other (Right [id number] amputation, left leg is warm to the knee and cold beyond the knee without palpable pulse) Neurological exam: Present: alert, oriented X3, CN II-XII intact Skin exam: Present: warm, dry Course Vital Signs 07/24/24 15:25 Temperature 98 F Pulse Rate 81 Respiratory 18 Rate Blood Pressure 120/57 O2 Sat by Pulse 94 L Oximetry Medical Decision Making - Medical Decision Making Was pt. sent in by a medical professional or institution (, [facility], [employer], urgent care, hospital, or care home...) When possible be specific @ -No Did you speak to anyone other than the patient for history (EMS, parent, family, police, friend...)? What history was obtained from this source @ -No Did you review nursing and triage notes (agree or disagree)? Why? @ -I reviewed and agree with nursing and triage notes Were old charts reviewed (outside hosp., previous admission, EMS record, old EKG, old radiological studies, urgent care reports/EKG's, care home records)? Report findings @ -No old charts were reviewed Differential Diagnosis (chest pain, altered mental status, abdominal pain women, abdominal pain men, vaginal bleeding, weakness, fever, dyspnea, syncope, hea dache, dizziness, GI bleed, back pain, seizure, CVA, palpatations, mental health, musculoskeletal)? @ -Not applicable EKG interpreted by me (3pts min.). @ -Sinus rhythm rate of 76 interventricular conduction delay, T wave inversion in the lateral precordial leads, UT interval 160, QRS duration 113, QTc 443 X-rays interpreted by me (1pt min.). @ -None done CT interpreted by me (1pt min.). @ -CT angiogram of the left leg shows arterial occlusion throughout the entire extremity U/S interpreted by me (1pt. min.). @ -[Ultrasound is positive for DVT in the left leg What testing was considered but not performed or refused? (CT, X-rays, U/S, labs)? Why? @ -None What meds were considered but not given or refused? Why? @ -None Did you discuss the management of the patient with other professionals (professionals i.e. , [facility], [employer], lab, RT, psych nurse, child protective services social worker, dairy clerk, teacher, chemical instrumentation officer, porter sample case)? Give summary @ -No Was smoking cessation discussed for >3mins.? @ -No Was critical care preformed (if so, how long)? @ -[Yes, 35 minutes Were there social determinants of health that impacted care today? How? (Homelessness, low income, unemployed, alcoholism, drug addiction, transportation, low edu. Level, literacy, decrease access to med. care, residential, rehab)? @ -No Was there de-escalation of care discussed even if they declined (Discuss DNR or withdrawal of care, Hospice)? DNR status @ -No What co-morbidities impacted this encounter? (DM, HTN, Smoking, COPD, CAD, C ancer, CVA, ARF, Chemo, Hep., AIDS, mental health diagnosis, sleep apnea, morbid obesity)? @ -[Peripheral vascular disease recent right lower extremity amputation Was patient admitted / discharged? Hospital course, mention meds given and route, prescriptions, significant lab abnormalities, going to OR and other pertinent info. @ -69-year-old female with pain for the past 3 days in the left leg. The leg is cold and pulseless. She is unable to move the leg. She has CT evidence of arterial occlusion. She started on high-dose heparin and admitted to internal medicine with vascular on consult. I did discuss case at length with Dr. William and the admitting team, Castillo willis for [facility] Undiagnosed new problem with uncertain prognosis? @ -No Drug Therapy requiring intensive monitoring for toxicity (Heparin, Nitro, Insulin, Cardizem)? @ -No Were any procedures done? @ -No Diagnosis/symptom? @ -Arterial occlusion of the left leg Acute, or Chronic, or Acute on Chronic? @ -[Acute Uncomplicated (without systemic symptoms) or Complicated (systemic symptoms)? @ -Complicated Side effects of treatment? @ -No Exacerbation, Progression, or Severe Exacerbation? @ -No Poses a threat to life or bodily function? How? (Chest pain, [place], [place], pneumonia, PE, COPD, DKA, ARF, appy, cholecystitis, CVA, Diverticulitis, Homicidal, Suicidal, threat to staff... and all critical care pts) @ -Yes, limb ischemia - Lab Data Result diagrams: 07/24/24 15:44 07/24/24 15:44 Lab Results 07/24/24 07/24/24 07/24/24 Range/Units 15:44 15:44 15:44 WBC 6.7 (3.8-10.6) k/uL RBC 3.07 L (3.80-5.40) m/uL Hgb 8.9 L (11.4-16.0) gm/dL Hct 28.6 L (34.0-46.0) % MCV 93.1 (80.0-100.0) fL MCH 29.0 (25.0-35.0) pg MCHC 31.1 (31.0-37.0) g/dL RDW 19.5 H (11.5-15.5) % Plt Count 387 (150-450) k/uL MPV 6.9 Neutrophils % 76 % Lymphocytes % 14 % Monocytes % 6 % Eosinophils % 1 % Basophils % 0 % Neutrophils # 5.1 (1.3-7.7) k/uL Lymphocytes # 1.0 (1.0-4.8) k/uL Monocytes # 0.4 (0-1.0) k/uL Eosinophils # 0.1 (0-0.7) k/uL Basophils # 0.0 (0-0.2) k/uL Hypochromasia Marked Anisocytosis Slight Macrocytosis Slight PT 11.1 (10.0-12.5) sec INR 1.0 (<1.2) APTT 20.3 L (22.0-30.0) sec Sodium 137 (137-145) mmol/L Potassium 4.4 (3.5-5.1) mmol/L Chloride 103 (98-107) mmol/L Carbon Dioxide 26 (22-30) mmol/L Anion Gap 8 mmol/L BUN 21 H (7-17) mg/dL Creatinine 0.88 (0.52-1.04) mg/dL Est GFR (CKD-EPI)AfAm 78 (>60 ml/min/1.73 sqM) Est GFR (CKD-EPI)NonAf 67 (>60 ml/min/1.73 sqM) Glucose 109 H (74-99) mg/dL Plasma Lactic Acid Pradeep (0.7-2.0) mmol/L Calcium 8.3 L (8.4-10.2) mg/dL Magnesium 1.9 (1.6-2.3) mg/dL Total Bilirubin 0.7 (0.2-1.3) mg/dL AST 213 H (14-36) U/L ALT 150 H (4-34) U/L Alkaline Phosphatase 107 (38-126) U/L Total Protein 6.8 (6.3-8.2) g/dL Albumin 3.3 L (3.5-5.0) g/dL 07/24/24 Range/Units 15:44 WBC (3.8-10.6) k/uL RBC (3.80-5.40) m/uL Hgb (11.4-16.0) gm/dL Hct (34.0-46.0) % MCV (80.0-100.0) fL MCH (25.0-35.0) pg MCHC (31.0-37.0) g/dL RDW (11.5-15.5) % Plt Count (150-450) k/uL MPV Neutrophils % % Lymphocytes % % Monocytes % % Eosinophils % % Basophils % % Neutrophils # (1.3-7.7) k/uL Lymphocytes # (1.0-4.8) k/uL Monocytes # (0-1.0) k/uL Eosinophils # (0-0.7) k/uL Basophils # (0-0.2) k/uL Hypochromasia Anisocytosis Macrocytosis PT (10.0-12.5) sec INR (<1.2) APTT (22.0-30.0) sec Sodium (137-145) mmol/L Potassium (3.5-5.1) mmol/L Chloride (98-107) mmol/L Carbon Dioxide (22-30) mmol/L Anion Gap mmol/L BUN (7-17) mg/dL Creatinine (0.52-1.04) mg/dL Est GFR (CKD-EPI)AfAm (>60 ml/min/1.73 sqM) Est GFR (CKD-EPI)NonAf (>60 ml/min/1.73 sqM) Glucose (74-99) mg/dL Plasma Lactic Acid Pradeep 1.2 (0.7-2.0) mmol/L Calcium (8.4-10.2) mg/dL Magnesium (1.6-2.3) mg/dL Total Bilirubin (0.2-1.3) mg/dL AST (14-36) U/L ALT (4-34) U/L Alkaline Phosphatase (38-126) U/L Total Protein (6.3-8.2) g/dL Albumin (3.5-5.0) g/dL Critical Care Time Critical Care Time: Yes Total Critical Care Time: 35 Disposition Clinical Impression: Superficial occlusion of femoral artery, Ischemic leg Disposition: ADMITTED IP TO THIS HOSP Condition: Stable Is patient prescribed a controlled substance at d/c from ED?: No Referrals: None,Stated [Primary Care Provider] - 1-2 days Time of Disposition: 17:41
[2024-07-24] MEDS: HEPARIN SOD,PORK IN 0.45% NACL 25,000 UNIT in 0.45% NACL 1 250ML.BAG IV SCH (16:43)
[2024-07-24] MEDS: HEPARIN SODIUM 1,000 UN/ML (10ML VL) IV ONE (16:44)
--- NOTE | 2024-07-24 17:02 | CT ---
EXAMINATION TYPE: CT angio lower extremity LT DATE OF EXAM: 07/24/2024 4:40 PM COMPARISON: None. CLINICAL INDICATION: Female, 69 years old with history of pain/pulseless, Pain, pulseless left leg, L cecilia cancer screening, History of tobacco use. TECHNIQUE: Contrast used:80 mL of Isovue 370 with IV Contrast, (none if empty) Oral contrast used: (none if empty) FINDINGS: Left Lower extremity examined in the axial coronal and sagittal planes. Contrast was utilized. The left common iliac artery is patent with contrast vascular calcifications at the bifurcation. Inte rnal and external left iliac vessels are patent. There appears to be a stent within the proximal left external iliac artery which is patent. At the anastomosis there is mild narrowing. The common femora l artery is patent. Common femoral artery extends to the profunda femoris and superficial femoral art kings. Superficial femoral artery has a stent which is obstructed. No contrast is evident within the st ent. Stent extends to the popliteal artery. No contrast within the popliteal artery is evident. No co ntrast within proximal trifurcation vessels is evident. There appears to be some reconstitution within the mid trifurcation vessels which have limited contra st. Distal trifurcation vessels do not have contrast. There is a collateral vessels from the Moise t he deep posterior musculature reconstituting trifurcation vessels. Report was called and case discussed with emergency room physician by Dr. Diaz by telephone at the time of interpretation. IMPRESSION: 1. OBSTRUCTION OF THE LEFT SUPERFICIAL FEMORAL ARTERY STENT TO THE POPLITEAL REGION. THERE IS BRIEF R ECONSTITUTION OF TRIFURCATION VESSELS WITHIN THE MID CALF REGION FROM COLLATERAL VASCULATURE. THESE A RE OBSTRUCTED WITHIN THE DISTAL CALF HOWEVER [facility], , 07/24/2024 5:00 PM
[2024-07-24] MEDS ORDERED: NALOXONE 0.4 MG/ML 1 ML VIAL IV PRN (17:37)
[2024-07-24] MEDS: SODIUM CHLORIDE 0.9% 1,000 ML IV SCH (18:28)
--- NOTE | 2024-07-24 19:56 | P.GSCN ---
History of Present Illness Consult date: 07/24/24 Reason for Consult: Acute left lower extremity arterial occlusion History of present illness: 69-year-old female with history of peripheral arterial disease, previous left lower extremity revascularization with SFA stenting initially had SFA stent placed and then earlier this year underwent revascularization for an acute occlusion of the left lower extremity and underwent Viabahn stent placement. She also recently was at [facility] due to right lower extremity occlusive disease, infection and underwent an above-knee amputation at that time. She states she has been in her nursing facility undergoing rehabilitation and noticed 3 days ago was having pain in her left lower extremity. She states she has not been able to move her left lower extremity for 3 days but today the pain was worsening and therefore was sent in for possible DVT. She underwent ultrasound which demonstrated DVT of the left lower extremity and upon ev aluation per the emergency department she had a cool extremity and therefore CT angiogram was obtained. On CT angiogram it is noted that she has no flow through her SFA stent or distally to the tibial vessels and to the foot. She does have a patent profundus femoris artery as well as iliac and common femoral on the left. Currently she states that she has left lower extremity pain, numbness which she says she has had for several months and is unable to move her foot. She denies any fevers, chills, chest pain or shortness of breath. Review of Systems All systems: negative (What is mentioned in the HPI or past medical history) Past Medical History Past Medical History: Coronary Artery Disease (CAD), CVA/TIA, GERD/Reflux, Hyperlipidemia, Hypertension, Myocardial Infarction ([place]), Osteoarthritis (OA), Skin Disorder Additional Past Medical History / Comment(s): hx migraines, TIA- FRACTURED RIGHT ANKLE 1/2 CAST, right AKA, left lower extremity revascularization and stenting Last Myocardial Infarction Date:: History of Any Multi-Drug Resistant Organisms: MRSA Year Discovered:: 02/21/18 MDRO Source:: NECK Past Surgical History: Heart Catheterization With Stent, Orthopedic Surgery, Tubal Ligation Additional Past Surgical History / Comment(s): left ankle surgery fracture- pins and plate inserted. 2 cardiac stents, neck surgery, left lower extremity revascularization and stenting and right AKA Past Anesthesia/Blood Transfusion Reactions: No Reported Reaction Date of Last Stent Placement:: 09/2016 Past Psychological History: No Psychological Hx Reported Smoking Status: Current every day smoker Past Alcohol Use History: Occasional Past Drug Use History: None Reported - Past Family History Mother Family Medical History: Hypertension, Myocardial Infarction ([place]) Sister(s) Family Medical History: CVA/TIA, Hypertension, Myocardial Infarction ([place]) Father Family Medical History: Cancer Additional Family Medical History / Comment(s): colon CA Brother(s) Family Medical History: Coronary Artery Disease (CAD), CVA/TIA Additional Family Medical History / Comment(s): CABG Medications and Allergies Home Medications Medication Instructions Recorded Confirmed Type Aspirin 81 mg PO DAILY #90 tab 11/07/23 07/24/24 Rx Nicotine 14Mg/24Hr Patch [Habitrol] 1 patch TRANSDERM DAILY #42 patch 02/20/24 07/24/24 Rx Spironolactone [Aldactone] 25 mg PO DAILY #30 tab 02/24/24 07/24/24 Rx Acetaminophen [Tylenol 8 Hour] 650 mg PO Q6H PRN 07/24/24 07/24/24 History Atorvastatin [Lipitor] 80 mg PO HS 07/24/24 07/24/24 History Budesonide [Pulmicort] 0.5 mg INHALATION RT-BID 07/24/24 07/24/24 History Budesonide/Formoterol Fumarate 2 puff INHALATION RT-BID 07/24/24 07/24/24 History [Symbicort 80-4.5 Mcg Inhaler] Dapagliflozin Propanediol [Farxiga] 5 mg PO DAILY 07/24/24 07/24/24 History Furosemide [Lasix] 40 mg PO DAILY@0700 07/24/24 07/24/24 History Metoprolol Succinate (ER) [Toprol 25 mg PO DAILY 07/24/24 07/24/24 History Xl] Mirtazapine [Remeron Soluspan] 15 mg PO HS 07/24/24 07/24/24 History Mupirocin 2% Oint [Bactroban 2% 1 applic TOPICAL MOWEFR@2100 07/24/24 07/24/24 History Oint] Naloxone HCl 0.4 mg IM DIRECTED PRN 07/24/24 07/24/24 History Naloxone HCl [Narcan] 4 mg NASAL DIRECTED PRN 07/24/24 07/24/24 History Omeprazole Magnesium [PriLOSEC OTC] 40 mg PO DAILY 07/24/24 07/24/24 History Pregabalin [Lyrica] 50 mg PO TID@0700,1300,1900 07/24/24 07/24/24 History Sacubitril/Valsartan [Entresto 24 1 tab PO BID@0700,1600 07/24/24 07/24/24 History mg-26 mg Tablet] Sennosides [Senokot] 8.6 mg PO BID@0700,1600 07/24/24 07/24/24 History Sulfamethox-Tmp 800-160Mg [Bactrim 1 tab PO BID@0700,1600 07/24/24 07/24/24 History DS 800-160 mg] Ticagrelor [Brilinta] 90 mg PO BID@0700,1600 07/24/24 07/24/24 History Tiotropium 2.5 Mcg/Puff [Spiriva 2 puff INHALATION RT-DAILY 07/24/24 07/24/24 History Respimat 2.5 Mcg] methocarbamoL [Robaxin-750] 750 mg PO QID 07/24/24 07/24/24 History oxyCODONE HCL [oxyCODONE HCL (IR)] 5 mg PO Q4H PRN 07/24/24 07/24/24 History polyethylene glycoL 3350 [Miralax] 17 gm PO DAILY 07/24/24 07/24/24 History Allergies Allergy/AdvReac Type Severity Reaction Status Date / Time No Known Allergies Allergy Verified 07/24/24 18:18 Surgical - Exam Vital Signs Temp Pulse Resp BP Pulse Ox 98 F 81 18 120/57 94 L 07/24/24 15:25 07/24/24 15:25 07/24/24 15:25 07/24/24 15:25 07/24/24 15:25 Patient Seen Date: 07/24/24 Patient Seen Time: 19:00 - General well developed, severe pain, cachectic, chronically ill - Eyes PERRL, normal ocular movement - ENT normal nares - Neck no masses, no bruits - Respiratory normal expansion, normal respiratory effort - Cardiovascular Rhythm: regular - Abdomen Abdomen: soft, non tender - Psychiatric oriented to time, oriented to person, oriented to place, speech is normal Nonpalpable popliteal, DP or PT pulse. No flow to popliteal, DP or PT Foot is cold, paralyzed, pain with passive range of motion and palpation to the calf No capillary refill noted. Leg is warm to the knee Results CTA demonstrates flow to the common femoral and profundus femoris with occlusion of the SFA, popliteal, tibial vessels down to the foot - Labs 07/24/24 15:44 07/24/24 15:44 Abnormal Lab Results - Last 24 Hours (Table) 07/24/24 07/24/24 07/24/24 Range/Units 15:44 15:44 15:44 RBC 3.07 L (3.80-5.40) m/uL Hgb 8.9 L (11.4-16.0) gm/dL Hct 28.6 L (34.0-46.0) % RDW 19.5 H (11.5-15.5) % APTT 20.3 L (22.0-30.0) sec BUN 21 H (7-17) mg/dL Glucose 109 H (74-99) mg/dL Calcium 8.3 L (8.4-10.2) mg/dL AST 213 H (14-36) U/L ALT 150 H (4-34) U/L Albumin 3.3 L (3.5-5.0) g/dL Diabetes panel 07/24/24 Range/Units 15:44 Sodium 137 (137-145) mmol/L Potassium 4.4 (3.5-5.1) mmol/L Chloride 103 (98-107) mmol/L Carbon Dioxide 26 (22-30) mmol/L BUN 21 H (7-17) mg/dL Creatinine 0.88 (0.52-1.04) mg/dL Glucose 109 H (74-99) mg/dL Calcium 8.3 L (8.4-10.2) mg/dL AST 213 H (14-36) U/L ALT 150 H (4-34) U/L Alkaline Phosphatase 107 (38-126) U/L Total Protein 6.8 (6.3-8.2) g/dL Albumin 3.3 L (3.5-5.0) g/dL Calcium panel 07/24/24 Range/Units 15:44 Calcium 8.3 L (8.4-10.2) mg/dL Albumin 3.3 L (3.5-5.0) g/dL Pituitary panel 07/24/24 Range/Units 15:44 Sodium 137 (137-145) mmol/L Potassium 4.4 (3.5-5.1) mmol/L Chloride 103 (98-107) mmol/L Carbon Dioxide 26 (22-30) mmol/L BUN 21 H (7-17) mg/dL Creatinine 0.88 (0.52-1.04) mg/dL Glucose 109 H (74-99) mg/dL Calcium 8.3 L (8.4-10.2) mg/dL Adrenal panel 07/24/24 Range/Units 15:44 Sodium 137 (137-145) mmol/L Potassium 4.4 (3.5-5.1) mmol/L Chloride 103 (98-107) mmol/L Carbon Dioxide 26 (22-30) mmol/L BUN 21 H (7-17) mg/dL Creatinine 0.88 (0.52-1.04) mg/dL Glucose 109 H (74-99) mg/dL Calcium 8.3 L (8.4-10.2) mg/dL Total Bilirubin 0.7 (0.2-1.3) mg/dL AST 213 H (14-36) U/L ALT 150 H (4-34) U/L Alkaline Phosphatase 107 (38-126) U/L Total Protein 6.8 (6.3-8.2) g/dL Albumin 3.3 L (3.5-5.0) g/dL Assessment and Plan Assessment: Acute left lower extremity limb occlusion [place] classification 3 nonsalvageable Recent history of right AKA History of severe peripheral arterial disease with previous revascularizations History of coronary artery disease with previous stents Hypertension History of ischemic cardiomyopathy Chronic tobacco abuse History of CVA Plan: Patient was evaluated at bedside in the emergency department. Reviewed CT angiogram with her in full detail which demonstrates no flow through the SFA or distally. Due to the fact that she has not had any ability to move her leg for 3 days the limb is nonsalvageable and will require primary above-knee amputation. We reviewed her labs which are stable and she is not an extremis at this time and therefore we will medically optimize for above-knee amputation. We will schedule her for an [id number] amputation tomorrow which was discussed with the patient who is agreeable. Continue pain control. Thank you for the consultation.
[2024-07-24] MEDS: HYDROmorphone 0.5 MG/0.5 ML SYRINGE IVP PRN (20:10)
[2024-07-24] MEDS: ACETAMINOPHEN TAB 325 MG TAB PO PRN (20:36)
[2024-07-24] MEDS: ASPIRIN 81 MG PO SCH (20:37)
[2024-07-24] MEDS: MIRTAZAPINE 15 MG TAB PO SCH (20:37)
[2024-07-25] MEDS: methocarbamoL 750 MG TAB PO PRN (00:02)
[2024-07-25] MEDS: FUROSEMIDE 40 MG TAB PO SCH (06:22)
[2024-07-25] MEDS: SULFAMETHOX-TMP 800-160MG 1 EACH TAB PO SCH (06:22)
[2024-07-25] MEDS: SENNOSIDES 8.6 MG TAB PO SCH (06:22)
[2024-07-25] MEDS: TICAGRELOR 90 MG TAB PO SCH (06:22)
[2024-07-25] MEDS: SACUBITRIL/VALSARTAN 24 MG-26 MG TABLET PO SCH (06:22)
[2024-07-25] MEDS: PREGABALIN 50 MG CAP PO SCH (06:22)
[2024-07-25 07:39] LABS: Anisocytosis Slight; Basophils % (A) 0 %; Eosinophils # (A) 0.2 k/uL (0-0.7); Eosinophils % (A) 2 %; HCT 28.5 % (34.0-46.0); HGB 8.6 gm/dL (11.4-16.0); Hypochromasia Marked; Lymphocytes % (A) 14 %; MCH 28.9 pg (25.0-35.0); MCHC 30.1 g/dL (31.0-37.0); MCV 95.9 fL (80.0-100.0); Macrocytosis Slight; Mean Platelet Volume 7.1; Monocytes # (A) 0.3 k/uL (0-1.0); Monocytes % (A) 4 %; Neutrophils # (A) 5.5 k/uL (1.3-7.7); Neutrophils % (A) 78 %; Platelet Count 368 k/uL (150-450); RBC 2.97 m/uL (3.80-5.40); RDW 19.8 % (11.5-15.5); WBC 7.1 k/uL (3.8-10.6)
[2024-07-25 07:51] LABS: ALT 136 U/L (4-34); AST 202 U/L (14-36); African American GFR (CKD) >90 (>60 ml/min/1.73 sqM); Albumin 3.1 g/dL (3.5-5.0); Alkaline Phosphatase 104 U/L (38-126); Anion Gap 7 mmol/L; Blood Urea Nitrogen 17 mg/dL (7-17); Carbon Dioxide 23 mmol/L (22-30); Chloride 105 mmol/L (98-107); Glucose 103 mg/dL (74-99); Non-African American GFR(CKD) 80 (>60 ml/min/1.73 sqM); Potassium 4.4 mmol/L (3.5-5.1); Sodium 135 mmol/L (137-145); Total Bilirubin 0.7 mg/dL (0.2-1.3); Total Protein 6.4 g/dL (6.3-8.2)
[2024-07-25] MEDS: BUDESONIDE 0.5 MG/2 ML NEBU INHALATION SCH (08:45)
[2024-07-25] MEDS: SYMBICORT 80-4.5 MCG INHALER INHALATION SCH (08:45)
[2024-07-25] MEDS: IPRATROPIUM 0.5 MG/2.5 ML NEBU INHALATION SCH (08:46)
[2024-07-25] MEDS: SPIRONOLACTONE 25 MG TAB PO SCH (08:51)
[2024-07-25] MEDS: PANTOPRAZOLE 40 MG TABLET PO SCH (08:51)
[2024-07-25] MEDS: polyethylene glycoL 3350 17 GM POWD.PACK PO SCH (08:51)
[2024-07-25] MEDS: NICOTINE 14MG/24HR PATCH TRANSDERM SCH (09:00)
[2024-07-25] MEDS: METOPROLOL SUCCINATE (ER) 25 MG TAB.ER.24H PO SCH (09:00)
[2024-07-25] MEDS ORDERED: DAPAGLIFLOZIN PROPANEDIOL 5 MG TABLET PO SCH (09:00)
--- NOTE | 2024-07-25 09:06 | P.HPIM ---
History of Present Illness This is a pleasant 69 years old female with past medical history of multiple medical problem including cardiomyopathy and chronic kidney disease stage III She was transferred from [facility] for decrease circulation in her left leg. Patient mentation is at baseline, she knows she is in the hospital and she has insight to her diagnosis She is complaining from left leg pain of 4 days duration, her left leg also is cold and weak. Patient has history of right AKA She denies chest pain or dyspnea. No other specific complaints No history of smoking or illicit drugs recently Patient afebrile, blood pressure stable Hemoglobin 8.9 which is chronic, rest of labs including BMP liver enzymes, INR were unremarkable Creatinine kinase is elevated Left lower extremity CTA showing obstruction of the left superficial femoral artery stent to the left popliteal artery Ejection fraction is 30 to 35% with mild to moderate mitral regurgitation Patient currently on heparin drip, normal saline at 100 mL/h and aspirin and Brilinta, some of them may be held this morning for the procedure Patient evaluated by vascular surgery team and plan to undergo AKA of the left lower extremity this morning around 11 AM Review of Systems Review of systems CONSTITUTIONAL: No fever, no malaise, no fatigue. HEENT: No recent visual problems or hearing problems. Denied any sore throat. CARDIOVASCULAR: No orthopnea, PND, no palpitations, no syncope. PULMONARY: No shortness of breath, no cough, no hemoptysis. GASTROINTESTINAL: No diarrhea, no nausea, no vomiting, no abdominal pain. Normoactive bowel sounds. NEUROLOGICAL: No headaches, no weakness, no numbness. HEMATOLOGICAL: Denies any bleeding or petechiae. GENITOURINARY: Denies any burning micturition, frequency, or urgency. MUSCULOSKELETAL/RHEUMATOLOGICAL: Denies any joint pain, swelling, or any muscle pain. ENDOCRINE: Denies any polyuria or polydipsia. Past Medical History Past Medical History: Coronary Artery Disease (CAD), CVA/TIA, GERD/Reflux, Hyperlipidemia, Hypertension, Myocardial Infarction ([place]), Osteoarthritis (OA), Skin Disorder Additional Past Medical History / Comment(s): hx migraines, TIA- FRACTURED RIGHT ANKLE 1/2 CAST, right AKA, left lower extremity revascularization and stenting Last Myocardial Infarction Date:: History of Any Multi-Drug Resistant Organisms: MRSA Date of last positivie culture/infection: 02/21/18 MDRO Source:: NECK Past Surgical History: Heart Catheterization With Stent, Orthopedic Surgery, Tubal Ligation Additional Past Surgical History / Comment(s): left ankle surgery fracture- pins and plate inserted. 2 cardiac stents, neck surgery, left lower extremity revascularization and stenting and right AKA Past Anesthesia/Blood Transfusion Reactions: No Reported Reaction Date of Last Stent Placement:: 09/2016 Past Psychological History: No Psychological Hx Reported Smoking Status: Current every day smoker Past Alcohol Use History: Occasional Additional Past Alcohol Use History / Comment(s): started smoking at age 16(1970) and quit 2016, smoked 2 ppd.STARTED SMOKING 2019 SMOKING 1/2 PPD quit smoking a few weeks ago (08/2021) Past Drug Use History: None Reported Additional Drug Use History / Comment(s): OCCASIONAL USE OF MARIJUANA - Past Family History Mother Family Medical History: Hypertension, Myocardial Infarction ([place]) Sister(s) Family Medical History: CVA/TIA, Hypertension, Myocardial Infarction ([place]) Father Family Medical History: Cancer Additional Family Medical History / Comment(s): colon CA Brother(s) Family Medical History: Coronary Artery Disease (CAD), CVA/TIA Additional Family Medical History / Comment(s): CABG Medications and Allergies Home Medications Medication Instructions Recorded Confirmed Type Aspirin 81 mg PO DAILY #90 tab 11/07/23 07/24/24 Rx Nicotine 14Mg/24Hr Patch [Habitrol] 1 patch TRANSDERM DAILY #42 patch 02/20/24 07/24/24 Rx Spironolactone [Aldactone] 25 mg PO DAILY #30 tab 02/24/24 07/24/24 Rx Acetaminophen [Tylenol 8 Hour] 650 mg PO Q6H PRN 07/24/24 07/24/24 History Atorvastatin [Lipitor] 80 mg PO HS 07/24/24 07/24/24 History Budesonide [Pulmicort] 0.5 mg INHALATION RT-BID 07/24/24 07/24/24 History Budesonide/Formoterol Fumarate 2 puff INHALATION RT-BID 07/24/24 07/24/24 History [Symbicort 80-4.5 Mcg Inhaler] Dapagliflozin Propanediol [Farxiga] 5 mg PO DAILY 07/24/24 07/24/24 History Furosemide [Lasix] 40 mg PO DAILY@0700 07/24/24 07/24/24 History Metoprolol Succinate (ER) [Toprol 25 mg PO DAILY 07/24/24 07/24/24 History Xl] Mirtazapine [Remeron Soluspan] 15 mg PO HS 07/24/24 07/24/24 History Mupirocin 2% Oint [Bactroban 2% 1 applic TOPICAL MOWEFR@2100 07/24/24 07/24/24 History Oint] Naloxone HCl 0.4 mg IM DIRECTED PRN 07/24/24 07/24/24 History Naloxone HCl [Narcan] 4 mg NASAL DIRECTED PRN 07/24/24 07/24/24 History Omeprazole Magnesium [PriLOSEC OTC] 40 mg PO DAILY 07/24/24 07/24/24 History Pregabalin [Lyrica] 50 mg PO TID@0700,1300,1900 07/24/24 07/24/24 History Sacubitril/Valsartan [Entresto 24 1 tab PO BID@0700,1600 07/24/24 07/24/24 History mg-26 mg Tablet] Sennosides [Senokot] 8.6 mg PO BID@0700,1600 07/24/24 07/24/24 History Sulfamethox-Tmp 800-160Mg [Bactrim 1 tab PO BID@0700,1600 07/24/24 07/24/24 History DS 800-160 mg] Ticagrelor [Brilinta] 90 mg PO BID@0700,1600 07/24/24 07/24/24 History Tiotropium 2.5 Mcg/Puff [Spiriva 2 puff INHALATION RT-DAILY 07/24/24 07/24/24 History Respimat 2.5 Mcg] methocarbamoL [Robaxin-750] 750 mg PO QID 07/24/24 07/24/24 History oxyCODONE HCL [oxyCODONE HCL (IR)] 5 mg PO Q4H PRN 07/24/24 07/24/24 History polyethylene glycoL 3350 [Miralax] 17 gm PO DAILY 07/24/24 07/24/24 History Allergies Allergy/AdvReac Type Severity Reaction Status Date / Time No Known Allergies Allergy Verified 07/24/24 18:18 Physical Exam Vitals: Vital Signs Temp Pulse Pulse Resp BP BP Pulse Ox 07/25/24 04:15 84 18 108/63 100 07/24/24 23:30 83 18 125/70 98 07/24/24 19:53 97.6 F 81 18 117/58 96 07/24/24 18:31 91 18 117/51 96 07/24/24 15:25 98 F 81 18 120/57 94 L Intake and Output 07/24/24 07/25/24 07/25/24 22:59 06:59 14:59 Other: Voiding Method External Catheter External Catheter # Voids 2 2 1 # Bowel Movements 1 Weight 47.627 kg 47.627 kg GENERAL: The patient is alert and oriented x3, not in any acute distress. Well developed, well nourished. HEENT: Pupils are round and equally reacting to light. EOMI. No scleral icterus. No conjunctival pallor. Normocephalic, atraumatic. No pharyngeal erythema. No thyromegaly. CARDIOVASCULAR: S1 and S2 present. No murmurs, rubs, or gallops. PULMONARY: Chest is clear to auscultation, no wheezing , no crackles. ABDOMEN: Soft, nontender, nondistended, normoactive bowel sounds. No palpable organomegaly. -MUSCULOSKELETAL: No joint swelling or deformity. Status post right AKA. Left lower extremity is cold, diminished pulses, no discoloration EXTREMITIES: No cyanosis, clubbing, or pedal edema. NEUROLOGICAL: Gross neurological examination did not reveal any focal deficits. SKIN: No rashes. no petechiae. Results CBC & Chem 7: 07/25/24 07:11 07/25/24 07:11 Labs: Abnormal Lab Results - Last 24 Hours (Table) 07/24/24 07/24/24 07/24/24 Range/Units 15:44 15:44 15:44 RBC 3.07 L (3.80-5.40) m/uL Hgb 8.9 L (11.4-16.0) gm/dL Hct 28.6 L (34.0-46.0) % MCHC (31.0-37.0) g/dL RDW 19.5 H (11.5-15.5) % APTT 20.3 L (22.0-30.0) sec Sodium (137-145) mmol/L BUN 21 H (7-17) mg/dL Glucose 109 H (74-99) mg/dL Calcium 8.3 L (8.4-10.2) mg/dL AST 213 H (14-36) U/L ALT 150 H (4-34) U/L Creatine Kinase (30-135) U/L Albumin 3.3 L (3.5-5.0) g/dL 07/24/24 07/24/24 07/25/24 Range/Units 15:44 21:45 07:11 RBC 2.97 L (3.80-5.40) m/uL Hgb 8.6 L (11.4-16.0) gm/dL Hct 28.5 L (34.0-46.0) % MCHC 30.1 L (31.0-37.0) g/dL RDW 19.8 H (11.5-15.5) % APTT 63.7 H (22.0-30.0) sec Sodium (137-145) mmol/L BUN (7-17) mg/dL Glucose (74-99) mg/dL Calcium (8.4-10.2) mg/dL AST (14-36) U/L ALT (4-34) U/L Creatine Kinase 5148 H* (30-135) U/L Albumin (3.5-5.0) g/dL 07/25/24 07/25/24 Range/Units 07:11 07:11 RBC (3.80-5.40) m/uL Hgb (11.4-16.0) gm/dL Hct (34.0-46.0) % MCHC (31.0-37.0) g/dL RDW (11.5-15.5) % APTT 74.1 H (22.0-30.0) sec Sodium 135 L (137-145) mmol/L BUN (7-17) mg/dL Glucose 103 H (74-99) mg/dL Calcium 8.0 L (8.4-10.2) mg/dL AST 202 H (14-36) U/L ALT 136 H (4-34) U/L Creatine Kinase (30-135) U/L Albumin 3.1 L (3.5-5.0) g/dL Assessment and Plan Assessment: Acute ischemia of the left lower extremity with this CTA showing obstruction of the left superficial femoral artery stent to the popliteal artery. Plan for left AKA on 07/25 Peripheral artery disease status post right AKA Rhabdomyolysis Transaminitis Cardiomyopathy with ejection fraction 30 to 35% Chronic kidney disease stage III Hypertension Plan: Continue with dual antiplatelet therapy and heparin drip Vascular surgery team are planning for AKA on 07/25 Will consult cardiology team as patient has extensive cardiac history. Currently patient has no chest pain or active dyspnea, patient still at some risk from this procedure given the nature of the procedure, her heart and kidney disease Continue with normal saline Monitor creatinine kinase and liver enzymes Labs and medication were reviewed.. Continue same treatment. Continue with symptomatic treatment. Resume home medication. Monitor labs and vitals. DVT and GI prophylaxis. Further recommendations as per clinical course of the p atient DVT prophylaxis: heparin GI Prophylaxis: Ppi Prognosis is guarded
[2024-07-25] MEDS: IV FLUID CONTINUATION 1,000 ML IV ONE (10:40)
[2024-07-25] MEDS ORDERED: PROPOFOL 10 MG/ML 20 ML VIAL IV ONE (11:25)
[2024-07-25] MEDS ORDERED: fentaNYL (PF) 50 MCG/ML 2 ML AMP ONE (11:25)
[2024-07-25] MEDS ORDERED: WATER FOR INJECTION, STERILE 10 ML VIAL IV ONE (11:25)
[2024-07-25] MEDS ORDERED: LIDOCAINE 1% INJ 10MG/ML (20 ML MDV) ONE (11:25)
[2024-07-25] MEDS ORDERED: MIDAZOLAM 2 MG/2 ML VIAL ONE (11:25)
[2024-07-25] MEDS ORDERED: PHENYLEPHRINE-0.9% NACL SYG 1,000 MCG/10 ML SYRINGE ONE (11:25)
[2024-07-25] MEDS ORDERED: ePHEDrine 50 MG/ML 1 ML VIAL ONE (11:25)
[2024-07-25] MEDS: SODIUM CHLORIDE 0.9% 100 ML with ceFAZolin 2,000 MG IV ONE (11:40)
--- NOTE | 2024-07-25 11:54 | P.CRDCN ---
History of Present Illness History of present illness: HISTORY OF PRESENT ILLNESS: This is a 69-year-old female with a past medical history significant for coronary artery disease with previous stenting, peripheral vascular disease, hypertension, hyperlipidemia, nicotine dependence, and medication noncompliance. Patient follow in the office with Dr. Wolfe but has not been seen since 2018. We have been asked to see the patient in consultation for cardiac clearance. Patient examined at the bedside. Patient presented to the hospital for chief complaint of discomfort in her left leg. Patient has a known history of peripheral vascular disease and has had previous lower extremity intervention. The patient also reports that she was at [facility] recently and underwent right AKA about 2 weeks ago. Patient underwent CT angio which revealed no flow through left SFA stent. She is scheduled to undergo left [id number] amputation today with Dr. William. The patient currently denies any chest pain or pressure. She denies shortness of breath. Vital signs are stable. DIAGNOSTICS: - EKG reveals sinus mechanism with T wave inversions in the lateral leads - Laboratory data: WBC 7.1. Hemoglobin 8.6. Platelet count 368. Sodium 135. Potassium 4.4. BUN 17. Creatinine 0.76. Creatinine kinase 5148. AST 202. ALT 136. - Current home cardiac medications include aspirin 81 mg daily, Lipitor 80 mg at night, Farxiga 5 mg daily, Lasix 40 mg daily, metoprolol succinate 25 mg daily, Entresto 24-26 mg twice a day, Aldactone 25 mg daily, Brilinta 90 mg twice a day - Most recent echocardiogram obtained in February 2024 revealed ejection fraction 30 to 35% with mild to moderate tricuspid regurgitation and small pericardial ef fusion - Cardiac catheterization history: October [address] Mcadams and underwent stenting to the mid LAD with Dr. Wolfe. Patent stent within the circumflex coronary artery. REVIEW OF SYSTEMS: At the time of my exam: CONSTITUTIONAL: Denies fever or chills. HEENT: Denies blurred vision, vision changes, or eye pain. Denies hemoptysis CARDIOVASCULAR: Denies chest pain. Denies orthopnea. Denies PND. Denies palpitations RESPIRATORY: Denies shortness of breath. GASTROINTESTINAL: Denies abdominal pain. Denies nausea or vomiting. HEMATOLOGIC: Denies bleeding disorders. GENITOURINARY: Denies any blood in urine. SKIN: Denies pruitis. Denies rash. PHYSICAL EXAM: VITAL SIGNS: Reviewed. GENERAL: Well-developed in no acute distress. HEENT: Head is normocephalic. Pupils are equal, round. Sclerae anicteric. Mucous membranes of the mouth are moist. Neck supple. No JVD or thyromegaly LUNGS: Respirations even and unlabored. Lungs essentially clear to auscultation bilaterally. HEART: Regular rate and rhythm. S1 and S2 heard. Systolic murmur noted. ABDOMEN: Soft. Nondistended. Nontender. EXTREMITIES: Normal range of motion. No clubbing or cyanosis. Right [id number]-rhuc amputation. Left lower extremity cool without pulses. NEUROLOGIC: Awake and alert. Oriented x 3. ASSESSMENT: Left leg pain Acute left lower extremity limb occlusion, CTA reveals no flow through SFA or distally, scheduled for left AKA today Recent right AKA [facility] Peripheral vascular disease with previous lower extremity intervention Coronary artery disease with previous stenting of the circumflex and most recent stenting of mid LAD, 10/2023 Ischemic cardiomyopathy, 3035% Chronic heart failure with reduced EF, currently euvolemic Hypertension Hyperlipidemia Nicotine dependence History of medication noncompliance PLAN: Obtain limited echo to assess LV function Resume home cardiac medications Continue dual antiplatelet therapy with aspirin and Brilinta due to stenting in 10/2023 Continue IV heparin per vascular surgery Increase Farxiga to 10 mg daily Patient scheduled for left AKA today with vascular surgery. There are no absolute contraindications for patient to proceed from a cardiac standpoint Further recommendations pending patient course Nurse practitioner note has been reviewed by physician. Signing provider agrees with the documented findings, assessment, and plan of care documented by [employer] as a scribe. Past Medical History Past Medical History: Coronary Artery Disease (CAD), CVA/TIA, GERD/Reflux, Hyperlipidemia, Hypertension, Myocardial Infarction ([place]), Osteoarthritis (OA), Skin Disorder Additional Past Medical History / Comment(s): hx migraines, TIA- FRACTURED RIGHT ANKLE 1/2 CAST, right AKA, left lower extremity revascularization and stenting Last Myocardial Infarction Date:: History of Any Multi-Drug Resistant Organisms: MRSA Date of last positivie culture/infection: 02/21/18 MDRO Source:: NECK Past Surgical History: Heart Catheterization With Stent, Orthopedic Surgery, Tubal Ligation Additional Past Surgical History / Comment(s): left ankle surgery fracture- pins and plate inserted. 2 cardiac stents, neck surgery, left lower extremity revascularization and stenting and right AKA Past Anesthesia/Blood Transfusion Reactions: No Reported Reaction Date of Last Stent Placement:: 09/2016 Past Psychological History: No Psychological Hx Reported Smoking Status: Current every day smoker Past Alcohol Use History: Occasional Additional Past Alcohol Use History / Comment(s): started smoking at age 16(1970) and quit 2017, smoked 2 ppd.STARTED SMOKING 2019 SMOKING 1/2 PPD quit smoking a few weeks ago (08/2021) Past Drug Use History: None Reported Additional Drug Use History / Comment(s): OCCASIONAL USE OF MARIJUANA - Past Family History Mother Family Medical History: Hypertension, Myocardial Infarction ([place]) Sister(s) Family Medical History: CVA/TIA, Hypertension, Myocardial Infarction ([place]) Father Family Medical History: Cancer Additional Family Medical History / Comment(s): colon CA Brother(s) Family Medical History: Coronary Artery Disease (CAD), CVA/TIA Additional Family Medical History / Comment(s): CABG Medications and Allergies Home Medications Medication Instructions Recorded Confirmed Type Aspirin 81 mg PO DAILY #90 tab 11/07/23 07/24/24 Rx Nicotine 14Mg/24Hr Patch [Habitrol] 1 patch TRANSDERM DAILY #42 patch 02/20/24 07/24/24 Rx Spironolactone [Aldactone] 25 mg PO DAILY #30 tab 02/24/24 07/24/24 Rx Acetaminophen [Tylenol 8 Hour] 650 mg PO Q6H PRN 07/24/24 07/24/24 History Atorvastatin [Lipitor] 80 mg PO HS 07/24/24 07/24/24 History Budesonide [Pulmicort] 0.5 mg INHALATION RT-BID 07/24/24 07/24/24 History Budesonide/Formoterol Fumarate 2 puff INHALATION RT-BID 07/24/24 07/24/24 History [Symbicort 80-4.5 Mcg Inhaler] Dapagliflozin Propanediol [Farxiga] 5 mg PO DAILY 07/24/24 07/24/24 History Furosemide [Lasix] 40 mg PO DAILY@0700 07/24/24 07/24/24 History Metoprolol Succinate (ER) [Toprol 25 mg PO DAILY 07/24/24 07/24/24 History Xl] Mirtazapine [Remeron Soluspan] 15 mg PO HS 07/24/24 07/24/24 History Mupirocin 2% Oint [Bactroban 2% 1 applic TOPICAL MOWEFR@2100 07/24/24 07/24/24 History Oint] Naloxone HCl 0.4 mg IM DIRECTED PRN 07/24/24 07/24/24 History Naloxone HCl [Narcan] 4 mg NASAL DIRECTED PRN 07/24/24 07/24/24 History Omeprazole Magnesium [PriLOSEC OTC] 40 mg PO DAILY 07/24/24 07/24/24 History Pregabalin [Lyrica] 50 mg PO TID@0700,1300,1900 07/24/24 07/24/24 History Sacubitril/Valsartan [Entresto 24 1 tab PO BID@0700,1600 07/24/24 07/24/24 History mg-26 mg Tablet] Sennosides [Senokot] 8.6 mg PO BID@0700,1600 07/24/24 07/24/24 History Sulfamethox-Tmp 800-160Mg [Bactrim 1 tab PO BID@0700,1600 07/24/24 07/24/24 History DS 800-160 mg] Ticagrelor [Brilinta] 90 mg PO BID@0700,1600 07/24/24 07/24/24 History Tiotropium 2.5 Mcg/Puff [Spiriva 2 puff INHALATION RT-DAILY 07/24/24 07/24/24 History Respimat 2.5 Mcg] methocarbamoL [Robaxin-750] 750 mg PO QID 07/24/24 07/24/24 History oxyCODONE HCL [oxyCODONE HCL (IR)] 5 mg PO Q4H PRN 07/24/24 07/24/24 History polyethylene glycoL 3350 [Miralax] 17 gm PO DAILY 07/24/24 07/24/24 History Allergies Allergy/AdvReac Type Severity Reaction Status Date / Time No Known Allergies Allergy Verified 07/24/24 18:18 Physical Exam Vitals: Vital Signs Temp Pulse Pulse Resp BP BP Pulse Ox 07/25/24 10:40 81 18 113/56 99 07/25/24 08:00 97.9 F 86 16 110/53 93 L 07/25/24 04:15 84 18 108/63 100 07/24/24 23:30 83 18 125/70 98 07/24/24 19:53 97.6 F 81 18 117/58 96 07/24/24 18:31 91 18 117/51 96 07/24/24 15:25 98 F 81 18 120/57 94 L Intake and Output 07/24/24 07/25/24 07/25/24 22:59 06:59 14:59 Intake Total 140.454 Balance 140.454 Intake: Intake, IV Titration 140.454 Amount Heparin Sod,Pork in 0.45% 140.454 NaCl 25,000 unit In 0.45 % NaCl 1 250ml.bag @ 18 UNITS/KG/HR 8.573 mls/hr IV .Q24H [facility] Rx#: [id number] Other: Voiding Method External Catheter External Catheter External Catheter # Voids 2 2 1 # Bowel Movements 1 Weight 47.627 kg 47.627 kg Results 07/25/24 07:11 07/25/24 07:11 Cardiac Enzymes 07/24/24 07/25/24 Range/Units 15:44 07:11 AST 213 H 202 H (14-36) U/L Coagulation 07/24/24 07/24/24 07/25/24 Range/Units 15:44 21:45 07:11 PT 11.1 (10.0-12.5) sec APTT 20.3 L 63.7 H 74.1 H (22.0-30.0) sec CBC 07/24/24 07/25/24 Range/Units 15:44 07:11 WBC 6.7 7.1 (3.8-10.6) k/uL RBC 3.07 L 2.97 L (3.80-5.40) m/uL Hgb 8.9 L 8.6 L (11.4-16.0) gm/dL Hct 28.6 L 28.5 L (34.0-46.0) % Plt Count 387 368 (150-450) k/uL Comprehensive Metabolic Panel 07/24/24 07/25/24 Range/Units 15:44 07:11 Sodium 137 135 L (137-145) mmol/L Potassium 4.4 4.4 (3.5-5.1) mmol/L Chloride 103 105 (98-107) mmol/L Carbon Dioxide 26 23 (22-30) mmol/L BUN 21 H 17 (7-17) mg/dL Creatinine 0.88 0.76 (0.52-1.04) mg/dL Glucose 109 H 103 H (74-99) mg/dL Calcium 8.3 L 8.0 L (8.4-10.2) mg/dL AST 213 H 202 H (14-36) U/L ALT 150 H 136 H (4-34) U/L Alkaline Phosphatase 107 104 (38-126) U/L Total Protein 6.8 6.4 (6.3-8.2) g/dL Albumin 3.3 L 3.1 L (3.5-5.0) g/dL Current Medications Generic Name Dose Route Start Last Admin Trade Name Freq PRN Reason Stop Dose Admin Acetaminophen 650 mg 07/24/24 17:37 07/24/24 20:36 Acetaminophen Tab 325 Mg Tab PO 650 mg Q6HR PRN Administration Mild Pain or Fever > 100.5 Aspirin 81 mg 07/24/24 20:15 07/25/24 08:51 Aspirin 81 Mg PO Not Given DAILY AMANDA Budesonide 0.5 mg 07/25/24 08:00 07/25/24 08:45 Budesonide 0.5 Mg/2 Ml Nebu INHALATION Not Given RT-BID [facility] Budesonide/Formoterol Fumarate 2 puff 07/25/24 08:00 07/25/24 08:45 Symbicort 80-4.5 Mcg Inhaler INHALATION Not Given RT-BID [facility] Dapagliflozin 10 mg 07/25/24 09:00 Dapagliflozin Propanediol 10 Mg Tablet PO DAILY AMANDA Furosemide 40 mg 07/25/24 07:00 07/25/24 06:22 Furosemide 40 Mg Tab PO 40 mg DAILY@0700 AMANDA Administration Hydromorphone HCl 0.5 mg 07/24/24 17:37 07/25/24 04:26 Hydromorphone 0.5 Mg/0.5 Ml Syringe IVP 0.5 mg Q3HR PRN Administration Moderate Pain (Scale 4 to 6) Sodium Chloride 1,000 mls @ 100 mls/hr 07/24/24 17:45 07/25/24 06:23 Saline 0.9% IV 100 mls/hr .Q10H AMANDA Administration Ipratropium [place] 0.5 mg 07/25/24 08:00 07/25/24 11:42 Ipratropium 0.5 Mg/2.5 Ml Nebu INHALATION Not Given RT-QID AMANDA Methocarbamol 750 mg 07/24/24 20:04 07/25/24 00:02 Methocarbamol 750 Mg Tab PO 750 mg QID PRN Administration Mild Spasms Metoprolol Succinate 25 mg 07/25/24 09:00 07/25/24 09:00 Metoprolol Succinate (Er) 25 Mg Tab.Er.24h PO 25 mg DAILY AMANDA Administration Mirtazapine 15 mg 07/24/24 21:00 07/24/24 20:37 Mirtazapine 15 Mg Tab PO 15 mg HS AMANDA Administration Miscellaneous Information 1 each 07/24/24 15:30 Rx Info: Iv Contrast Was Given 1 Each Misc MISCELLANE 07/26/24 15:31 DAILY PRN Per Protocol Naloxone HCl 0.2 mg 07/24/24 17:37 Naloxone 0.4 Mg/Ml 1 Ml Vial IV Q2M PRN Opioid Reversal Nicotine 1 patch 07/25/24 09:00 07/25/24 09:00 Nicotine 14mg/24hr Patch TRANSDERM 1 patch DAILY AMANDA Administration Oxycodone HCl 5 mg 07/24/24 20:04 07/25/24 06:27 Oxycodone Hcl 5 Mg Tab PO 5 mg Q4H PRN Administration Moderate to Severe Pain (4-10) Pantoprazole Sodium 40 mg 07/25/24 09:00 07/25/24 08:51 Pantoprazole 40 Mg Tablet PO Not Given DAILY [facility] Petrolatum 1 applic 07/25/24 03:06 Zinc Oxide Paste (Z-Guard) 1 Applic TOPICAL Q2HR PRN Wound Healing Protocol Polyethylene Glycol 17 gm 07/25/24 09:00 07/25/24 08:51 Polyethylene Glycol 3350 17 Gm Powd.Pack PO Not Given DAILY AMANDA Pregabalin 50 mg 07/25/24 07:00 07/25/24 06:22 Pregabalin 50 Mg Cap PO 50 mg TID@0700,1300,1900 AMANDA Administration Sacubitril/Valsartan 1 each 07/25/24 07:00 07/25/24 06:22 Sacubitril/Valsartan 24 Mg-26 Mg Tablet PO 1 each BID@0700,1600 AMANDA Administration Senna 8.6 mg 07/25/24 07:00 07/25/24 06:22 Sennosides 8.6 Mg Tab PO 8.6 mg BID@0700,1600 AMANDA Administration Spironolactone 25 mg 07/25/24 09:00 07/25/24 08:51 Spironolactone 25 Mg Tab PO Not Given DAILY [facility] Ticagrelor 90 mg 07/25/24 07:00 07/25/24 06:22 Ticagrelor 90 Mg Tab PO 90 mg BID@0700,1600 AMANDA Administration Trimethoprim/Sulfamethoxazole 1 each 07/25/24 07:00 07/25/24 06:22 Sulfamethox-Tmp 800-160mg 1 Each Tab PO 1 each BID@0700,1600 AMANDA Administration Protocol Intake and Output 07/24/24 07/25/24 07/25/24 22:59 06:59 14:59 Intake Total 140.454 Balance 140.454 Intake: Intake, IV Titration 140.454 Amount Heparin Sod,Pork in 0.45% 140.454 NaCl 25,000 unit In 0.45 % NaCl 1 250ml.bag @ 18 UNITS/KG/HR 8.573 mls/hr IV .Q24H [facility] Rx#: [id number] Other: Voiding Method External Catheter External Catheter External Catheter # Voids 2 2 1 # Bowel Movements 1 Weight 47.627 kg 47.627 kg 07/25/24 07:11 07/25/24 07:11
[2024-07-25] MEDS: LACTATED RINGERS 1,000 ML IV ONE (12:18)
--- NOTE | 2024-07-25 12:42 | P.OP ---
Date of Procedure: 07/25/24 Preoperative Diagnosis: Acute critical limb ischemia Segun classification 3 unsalvageable Postoperative Diagnosis: same Procedure(s) Performed: Left above knee amputation Anesthesia: CORYA Surgeon: Mao William Estimated Blood Loss (ml): 10 Pathology: other (left lower leg) Condition: stable Disposition: PACU Indications for Procedure: 69 year old female presented to the hospital after acute pain and paralysis of the left lower extremity was found to have an ischemic limb with no blood flow to the left leg and occlusion of the SFA, popliteal and tibial arteries. Due to the severity and time frame the limb was non salvageable and therefore requires above-knee amputation which she presents to the OR for today. Description of Procedure: After written and informed consent was obtained for the patient and all risk, benefits and complications were described the patient was brought to the operative suite and laid in the supine position. The area of the left leg was prepped and draped in usual sterile fashion after appropriate anesthetic was performed per the anesthesiologist. Antibiotics were given prior to surgery. Timeout was performed in normal fashion. A fishmouth incision was then created just above the knee both anterior and posteriorly with a 10 blade scalpel. Dissection was then carried down through the subcutaneous tissue and fascia to the femur. The quadriceps muscle was transected utilizing cautery. Femoral vessels were identified and were dissected and and suture-ligated with 2-0 silk suture in normal fashion. Utilizing a oscillating saw the femur was then removed in normal fashion. The posterior aspect of the leg was then dissected with a knife and the leg was removed. The sciatic nerve was located and suture-ligated normal fashion. The area was then copiously irrigated with antibiotic solution. The fascia was then reapproximated with 2-0 Vicryl suture in interrupted fashion. Skin was then closed with juju. The area was then cleansed and dressed with Adaptic, 4 x 4, Kerlix and Momo wrap. Patient tolerated the procedure well and was sent to PACU for recovery.
[2024-07-25] MEDS: DAPAGLIFLOZIN PROPANEDIOL 10 MG TABLET PO SCH (13:27)
--- NOTE | 2024-07-25 16:15 | CA ---
Transthoracic Echo Report Name: Ni Seay Age: 69 Gender: F : 1955 Exam Date: 07/25/2024 09:55 Exam Location: [facility] Ht (in): 60 Wt (lb): 105 Ordering Physician: Gwendolyn Purcell Attending/Referring Phys: [id number], Binh Elevator Repairer Apprentice Agustina Arrington, GUSTAVO Procedure CPT: Indications: LV function, preop clearance Cardiac Hx: limited study Technical Quality: Fair Contrast 1: Total Dose (mL): Contrast 2: Total Dose (mL): MEASUREMENTS (Male / Female) Normal Values 2D ECHO RV Internal Dim ED PLAX 3.1 cm LV Diastolic Volume MOD BP 112.9 cm??? 67 - 155 / 56 - 104 cm??? LV Systolic Volume MOD BP 57.3 cm??? 22 - 58 / 19 - 49 cm??? LV Ejection Fraction MOD BP 49.2 % >= 55 % LV Cardiac Index MOD BP 2932.6 cm???/min???m??? LV Diastolic Volume MOD 4C 89.0 cm??? LV Systolic Volume MOD 4C 51.2 cm??? LV Ejection Fraction MOD 4C 42.5 % LV Cardiac Index MOD 4C 1995.8 cm???/min???m??? LV Diastolic Length 4C 8.1 cm LV Systolic Length 4C 7.6 cm LV Diastolic Volume MOD 2C 110.6 cm??? LV Systolic Volume MOD 2C 67.7 cm??? LV Ejection Fraction MOD 2C 38.8 % LV Cardiac Index MOD 2C 2264.9 cm???/min???m??? LV Diastolic Length 2C 8.2 cm LV Systolic Length 2C 7.5 cm DOPPLER AV Peak Velocity 175.8 cm/s AV Peak Gradient 12.4 mmHg AV Mean Velocity 117.5 cm/s AV Mean Gradient 6.5 mmHg AV Velocity Time Integral 35.2 cm LVOT Peak Velocity 103.2 cm/s LVOT Peak Gradient 4.3 mmHg LVOT Velocity Time Integral 19.4 cm TR Peak Velocity 231.8 cm/s TR Peak Gradient 21.5 mmHg Right Ventricular Systolic Press 26.5 mmHg FINDINGS Left Ventricle Left ventricular ejection fraction is estimated at 30 to 35 %. Severely reduced global left ventricular systolic function. Right Ventricle Right ventricular systolic pressure within normal limits. Right Atrium Right atrium not well visualized. Left Atrium Mitral Valve Mitral valve thickened. mild mitral regurgitation.mitral annular calcification. Aortic Valve Thickened aortic valve without stenosis.aortic valve sclerosis. Tricuspid Valve Structurally normal tricuspid valve.mild tricuspid regurgitation. Pulmonic Valve Pulmonic valve not well visualized. Pericardium Minimal pericardial effusion (normal variant). Aorta Normal size aortic root and proximal ascending aorta. CONCLUSIONS 1. Severe impairment of the left ventricular systolic function with global hypokinesis 2. Mild mitral and tricuspid regurgitation Previewed by: Dr. Javier Colbert MD (Electronically Signed) Final Date: 25 July 2024 16:14
--- NOTE | 2024-07-26 09:16 | P.PN ---
Subjective This is a pleasant 69 years old female with past medical history of multiple medical problem including cardiomyopathy and chronic kidney disease stage III She was transferred from [facility] for decrease circulation in her left leg. Patient mentation is at baseline, she knows she is in the hospital and she has insight to her diagnosis She is complaining from left leg pain of 4 days duration, her left leg also is cold and weak. Patient has history of right AKA She denies chest pain or dyspnea. No other specific complaints No history of smoking or illicit drugs recently Patient afebrile, blood pressure stable Hemoglobin 8.9 which is chronic, rest of labs including BMP liver enzymes, INR were unremarkable Creatinine kinase is elevated Left lower extremity CTA showing obstruction of the left superficial femoral artery stent to the left popliteal artery Ejection fraction is 30 to 35% with mild to moderate mitral regurgitation Patient currently on heparin drip, normal saline at 100 mL/h and aspirin and Brilinta, some of them may be held this morning for the procedure Patient evaluated by vascular surgery team and plan to undergo AKA of the left lower extremity this morning around 11 AM 07/26 Patient awake up in bed, she is interactive but looks confused, she does not follow commands or answers questions appropriately She could not tell if she has chest pain but she does not look in distress. She is status post right AKA yesterday Patient remains on dual antiplatelet therapy of aspirin and Brilinta She is on metoprolol and Entresto Heparin drip was discontinued. She move both upper extremity symmetrically. We will lower her normal saline to 50 mL/h for another 24 hours Active Medications Generic Name Dose Route Start Last Admin Trade Name Freq PRN Reason Stop Dose Admin Acetaminophen 650 mg 07/24/24 17:37 07/24/24 20:36 Acetaminophen Tab 325 Mg Tab PO 650 mg Q6HR PRN Administration Mild Pain or Fever > 100.5 Aspirin 81 mg 07/24/24 20:15 07/25/24 08:51 Aspirin 81 Mg PO Not Given DAILY AMANDA Budesonide 0.5 mg 07/25/24 08:00 07/26/24 08:25 Budesonide 0.5 Mg/2 Ml Nebu INHALATION Not Given RT-BID AMANDA Budesonide/Formoterol Fumarate 2 puff 07/25/24 08:00 07/26/24 08:25 Symbicort 80-4.5 Mcg Inhaler INHALATION Not Given RT-BID AMANDA Dapagliflozin 10 mg 07/25/24 09:00 07/26/24 09:00 Dapagliflozin Propanediol 10 Mg Tablet PO 10 mg DAILY AMANDA Administration Furosemide 40 mg 07/25/24 07:00 07/26/24 06:18 Furosemide 40 Mg Tab PO 40 mg DAILY@0700 AMANDA Administration Hydromorphone HCl 0.5 mg 07/24/24 17:37 07/26/24 06:22 Hydromorphone 0.5 Mg/0.5 Ml Syringe IVP 0.5 mg Q3HR PRN Administration Moderate Pain (Scale 4 to 6) Sodium Chloride 1,000 mls @ 50 mls/hr 07/24/24 17:45 07/26/24 01:25 Saline 0.9% IV 07/27/24 17:44 Not Given .Q20H AMANDA Ipratropium Keaton 0.5 mg 07/25/24 08:00 07/26/24 08:25 Ipratropium 0.5 Mg/2.5 Ml Nebu INHALATION Not Given RT-QID AMANDA Methocarbamol 750 mg 07/24/24 20:04 07/25/24 00:02 Methocarbamol 750 Mg Tab PO 750 mg QID PRN Administration Mild Spasms Metoprolol Succinate 25 mg 07/25/24 09:00 07/26/24 08:59 Metoprolol Succinate (Er) 25 Mg Tab.Er.24h PO 25 mg DAILY AMANDA Administration Mirtazapine 15 mg 07/24/24 21:00 07/25/24 20:28 Mirtazapine 15 Mg Tab PO 15 mg HS AMANDA Administration Miscellaneous Information 1 each 07/24/24 15:30 Rx Info: Iv Contrast Was Given 1 Each Misc MISCELLANE 07/26/24 15:31 DAILY PRN Per Protocol Naloxone HCl 0.2 mg 07/24/24 17:37 Naloxone 0.4 Mg/Ml 1 Ml Vial IV Q2M PRN Opioid Reversal Nicotine 1 patch 07/25/24 09:00 07/26/24 08:59 Nicotine 14mg/24hr Patch TRANSDERM 1 patch DAILY AMANDA Administration Oxycodone HCl 5 mg 07/24/24 20:04 07/26/24 09:00 Oxycodone Hcl 5 Mg Tab PO 5 mg Q4H PRN Administration Moderate to Severe Pain (4-10) Pantoprazole Sodium 40 mg 07/25/24 09:00 07/26/24 09:00 Pantoprazole 40 Mg Tablet PO 40 mg DAILY AMANDA Administration Petrolatum 1 applic 07/25/24 03:06 Zinc Oxide Paste (Z-Guard) 1 Applic TOPICAL Q2HR PRN Wound Healing Protocol Polyethylene Glycol 17 gm 07/25/24 09:00 07/25/24 08:51 Polyethylene Glycol 3350 17 Gm Powd.Pack PO Not Given DAILY AMANDA Pregabalin 50 mg 07/25/24 07:00 07/26/24 06:18 Pregabalin 50 Mg Cap PO 50 mg TID@0700,1300,1900 AMANDA Administration Sacubitril/Valsartan 1 each 07/25/24 07:00 07/26/24 06:18 Sacubitril/Valsartan 24 Mg-26 Mg Tablet PO 1 each BID@0700,1600 AMANDA Administration Senna 8.6 mg 07/25/24 07:00 07/26/24 06:18 Sennosides 8.6 Mg Tab PO 8.6 mg BID@0700,1600 AMANDA Administration Spironolactone 25 mg 07/25/24 09:00 07/26/24 09:00 Spironolactone 25 Mg Tab PO 25 mg DAILY AMANDA Administration Ticagrelor 90 mg 07/25/24 07:00 07/26/24 06:18 Ticagrelor 90 Mg Tab PO 90 mg BID@0700,1600 AMANDA Administration Trimethoprim/Sulfamethoxazole 1 each 07/25/24 07:00 07/26/24 06:18 Sulfamethox-Tmp 800-160mg 1 Each Tab PO 1 each BID@0700,1600 AMANDA Administration Protocol Objective - Vital Signs Vital signs: Vital Signs Temp 98.1 F 07/26/24 04:00 Pulse 85 07/26/24 04:00 Resp 16 07/26/24 04:00 BP 103/59 07/26/24 04:00 Pulse Ox 98 07/26/24 04:00 FiO2 Intake & Output 07/25/24 07/26/24 07/26/24 18:59 06:59 18:59 Intake Total 1508.221 2638 Output Total 910 400 Balance 498.782 2506 Weight 45 kg Intake: IV 1200 Intake, IV Titration 140.454 900 Amount Heparin Sod,Pork in 0.45% 140.454 NaCl 25,000 unit In 0.45 % NaCl 1 250ml.bag @ 18 UNITS/KG/HR 8.573 mls/hr IV .Q24H AMANDA Rx#: [id number] Sodium Chloride 0.9% 1, 900 000 ml @ 100 mls/hr IV . Q10H AMANDA Rx#:[id number] Oral 1190 Output: Urine 900 400 Estimated Blood Loss 10 Other: Voiding Method External Catheter External Catheter # Voids 1 - Exam -GENERAL: The patient is alert and awake but confused, not in any acute distress. Well developed, well nourished. HEENT: Pupils are round and equally reacting to light. EOMI. No scleral icterus. No conjunctival pallor. Normocephalic, atraumatic. No pharyngeal erythema. No thyromegaly. CARDIOVASCULAR: S1 and S2 present. No murmurs, rubs, or gallops. PULMONARY: Chest is clear to auscultation, no wheezing , no crackles. ABDOMEN: Soft, nontender, nondistended, normoactive bowel sounds. No palpable organomegaly. -MUSCULOSKELETAL: No joint swelling or deformity. Status post bilateral AKA EXTREMITIES: No cyanosis, clubbing, or pedal edema. NEUROLOGICAL: Gross neurological examination did not reveal any focal deficits. SKIN: No rashes. no petechiae. - Labs CBC & Chem 7: 07/25/24 07:11 07/25/24 07:11 Labs: Abnormal Lab Results - Last 24 Hours (Table) 07/24/24 Range/Units 15:44 Creatine Kinase 5148 H* (30-135) U/L Assessment and Plan Assessment: Acute ischemia of the left lower extremity with this CTA showing obstruction of the left superficial femoral artery stent to the popliteal artery. Plan for left AKA on 07/25 Postoperative confusion most likely metabolic/toxic encephalopathy Peripheral artery disease status post right AKA Rhabdomyolysis Transaminitis Cardiomyopathy with ejection fraction 30 to 35% Chronic kidney disease stage III Hypertension Plan: Continue with dual antiplatelet therapy and heparin drip Vascular surgery team are on for AKA on 07/25 Will consult cardiology team as patient has extensive cardiac history. Currently patient has no chest pain or active dyspnea, patient still at some risk from this procedure given the nature of the procedure, her heart and kidney disease Continue with normal saline for another 24 hours Monitor mentation, if no improvement with consider further workup as it is expected postoperative Monitor creatinine kinase and liver enzymes Labs and medication were reviewed.. Continue same treatment. Continue with symptomatic treatment. Resume home medication. Monitor labs and vitals. DVT and GI prophylaxis. Further recommendations as per clinical course of the patient DVT prophylaxis: heparin GI Prophylaxis: Ppi Prognosis is guarded
--- NOTE | 2024-07-26 12:48 | P.PN ---
Subjective HISTORY OF PRESENT ILLNESS: This is a 69-year-old female with a past medical history significant for coronary artery disease with previous stenting, peripheral vascular disease, hypertension, hyperlipidemia, nicotine dependence, and medication noncompliance. Patient follow in the office with Dr. Wolfe but has not been seen since 2018. We have been asked to see the patient in consultation for cardiac clearance. Patient examined at the bedside. Patient presented to the hospital for chief complaint of discomfort in her left leg. Patient has a known history of peripheral vascular disease and has had previous lower extremity intervention. The patient also reports that she was at [facility] recently and underwent right AKA about 2 weeks ago. Patient underwent CT angio which revealed no flow through left SFA stent. She is scheduled to undergo left [id number]-zil-[id number] amputation today with Dr. William. The patient currently denies any chest pain or pressure. She denies shortness of breath. Vital signs are stable. DIAGNOSTICS: - EKG reveals sinus mechanism with T wave inversions in the lateral leads - Laboratory data: WBC 7.1. Hemoglobin 8.6. Platelet count 368. Sodium 135. Potassium 4.4. BUN 17. Creatinine 0.76. Creatinine kinase 5148. AST 202. ALT 136. - Current home cardiac medications include aspirin 81 mg daily, Lipitor 80 mg at night, Farxiga 5 mg daily, Lasix 40 mg daily, metoprolol succinate 25 mg daily, Entresto 24-26 mg twice a day, Aldactone 25 mg daily, Brilinta 90 mg twice a day - Most recent echocardiogram obtained in February 2024 revealed ejection fraction 30 to 35% with mild to moderate tricuspid regurgitation and small pericardial effusion - Cardiac catheterization history: October [address] Mcadams and underwent stenting to the mid LAD with Dr. Wolfe. Patent stent within the circumflex coronary artery. 07/26/2024 Patient is status post left AKA. Patient denies chest pain or pressure. She denies shortness of breath. Vital signs are stable. Telemetry reveals sinus mechanism. Limited echo completed revealing ejection fraction 30 to 35% with mild MR. PHYSICAL EXAM: VITAL SIGNS: Reviewed. GENERAL: Well-developed in no acute distress. HEENT: Head is normocephalic. Pupils are equal, round. Sclerae anicteric. Mucous membranes of the mouth are moist. Neck supple. No JVD or thyromegaly LUNGS: Respirations even and unlabored. Lungs essentially clear to auscultation bilaterally. HEART: Regular rate and rhythm. S1 and S2 heard. Systolic murmur noted. ABDOMEN: Soft. Nondistended. Nontender. EXTREMITIES: Normal range of motion. No clubbing or cyanosis. Right [id number]-[id number]-ffmc amputation. Left AKA NEUROLOGIC: Awake and alert. Oriented x 3. ASSESSMENT: Left leg pain Acute left lower extremity limb occlusion, CTA reveals no flow through SFA or distally, status post left AKA Recent right AKA [facility] Peripheral vascular disease with previous lower extremity intervention Coronary artery disease with previous stenting of the circumflex and most recent stenting of mid LAD, 10/2023 Ischemic cardiomyopathy, 3035% Chronic heart failure with reduced EF, currently euvolemic Hypertension Hyperlipidemia Nicotine dependence History of medication noncompliance PLAN: Continue postoperative management per vascular surgery Continue dual antiplatelet therapy with aspirin and Brilinta due to stenting in 10/2023 Continue additional cardiac medications Further recommendations pending patient course Nurse practitioner note has been reviewed by physician. Signing provider agrees with the documented findings, assessment, and plan of care documented by COMPLAINT ADJUSTER as a scribe. Objective - Vital Signs Vital signs: Vital Signs Temp 98.2 F 07/26/24 08:00 Pulse 85 07/26/24 08:00 Resp 16 07/26/24 08:00 BP 110/60 07/26/24 08:00 Pulse Ox 92 L 07/26/24 08:00 FiO2 Intake & Output 07/25/24 07/26/24 07/26/24 18:59 06:59 18:59 Intake Total 1761.304 0730 Output Total 910 400 Balance 713.366 8645 Weight 45 kg Intake: IV 1200 Intake, IV Titration 140.454 900 Amount Heparin Sod,Pork in 0.45% 140.454 NaCl 25,000 unit In 0.45 % NaCl 1 250ml.bag @ 18 UNITS/KG/HR 8.573 mls/hr IV .Q24H AMANDA Rx#: [id number] Sodium Chloride 0.9% 1, 900 000 ml @ 100 mls/hr IV . Q10H AMANDA Rx#:[id number] Oral 1190 Output: Urine 900 400 Estimated Blood Loss 10 Other: Voiding Method External Catheter External Catheter External Catheter # Voids 1 - Labs CBC & Chem 7: 07/25/24 07:11 07/25/24 07:11 Labs: Abnormal Lab Results - Last 24 Hours (Table) 07/24/24 Range/Units 15:44 Creatine Kinase 5148 H* (30-135) U/L
[2024-07-26] MEDS ORDERED: VANCOMYCIN IV PER PHARMACY 1 EACH MISC MISCELLANE PRN (13:56)
[2024-07-26] MEDS: VANCOMYCIN 1,000 MG in SODIUM CHLORIDE 0.9% 250 ML IVPB SCH (14:21)
[2024-07-26] MEDS: CEFEPIME 2 GM in SODIUM CHLORIDE 0.9% 100 ML IVPB SCH (16:53)
--- NOTE | 2024-07-26 22:05 | P.CONS ---
History of Present Illness - Reason for Consult Consult date: 07/26/24 Infected right lower extremity stump wound Requesting physician: Royal E Sheet - Chief Complaint Left leg pain x 3 days on admission - History of Present Illness Patient is a 69-year-old female with a past medical history significant for hypertension hyperlipidemia coronary artery disease osteoarthritis reflux and also with a history of peripheral arterial disease in this patient who is status post right rsdcl-ugs-ogpw amputation that was done at [facility] few weeks ago patient subsequently was readmitted to this facility with right AKA stump wound infection with a culture obtained she was treated with antibiotics and discharged on Bactrim DS patient now presenting to [facility] ER 2 days ago for evaluation of left lower extremity pain that apparently had been getting worse for the last 3 days patient has been diagnosed with the critical ischemia to the left leg and the patient is status post left weskd-rin-cnna amputation patient did have dehiscence of the right AKA stump wound that has prompted this consultation patient denies having any fever or any chills has been complaining of pain to the right AKA stump wound to be mostly sharp m oderate intensity without radiation and did have some drainage patient on presentation the hospital was afebrile and no fever have been ordered subsequently she was mildly tachycardic and hypertensive but not hypoxic or need for supplemental oxygen patient did have a white count of 7.1 creatinine 0.76 electrolytes are normal liver isms are mildly elevated Review of Systems Positive point and negatives has been mentioned in the HPI, complete review of systems was performed and all other systems are negative Past Medical History Past Medical History: Coronary Artery Disease (CAD), CVA/TIA, GERD/Reflux, Hyperlipidemia, Hypertension, Myocardial Infarction (VT), Osteoarthritis (OA), Skin Disorder Additional Past Medical History / Comment(s): hx migraines, TIA- FRACTURED RIGHT ANKLE 1/2 CAST, right AKA, left lower extremity revascularization and stenting Last Myocardial Infarction Date:: History of Any Multi-Drug Resistant Organisms: MRSA Year Discovered:: 02/21/18 MDRO Source:: NECK Past Surgical History: Heart Catheterization With Stent, Orthopedic Surgery, T ubal Ligation Additional Past Surgical History / Comment(s): left ankle surgery fracture- pins and plate inserted. 2 cardiac stents, neck surgery, left lower extremity revascu larization and stenting and right AKA Past Anesthesia/Blood Transfusion Reactions: No Reported Reaction Date of Last Stent Placement:: 09/2016 Past Psychological History: No Psychological Hx Reported Smoking Status: Current every day smoker Past Alcohol Use History: Occasional Additional Past Alcohol Use History / Comment(s): started smoking at age 16(1971) and quit 2017, smoked 2 ppd.STARTED SMOKING 2019 SMOKING 1/2 PPD quit smoking a few weeks ago (08/2021) Past Drug Use History: None Reported Additional Drug Use History / Comment(s): OCCASIONAL USE OF MARIJUANA - Past Family History Mother Family Medical History: Hypertension, Myocardial Infarction (VT) Sister(s) Family Medical History: CVA/TIA, Hypertension, Myocardial Infarction (VT) Father Family Medical History: Cancer Additional Family Medical History / Comment(s): colon CA Brother(s) Family Medical History: Coronary Artery Disease (CAD), CVA/TIA Additional Family Medical History / Comment(s): CABG Medications and Allergies Home Medications Medication Instructions Recorded Confirmed Type Aspirin 81 mg PO DAILY #90 tab 11/07/23 07/24/24 Rx Nicotine 14Mg/24Hr Patch [Habitrol] 1 patch TRANSDERM DAILY #42 patch 02/20/24 07/24/24 Rx Spironolactone [Aldactone] 25 mg PO DAILY #30 tab 02/24/24 07/24/24 Rx Acetaminophen [Tylenol 8 Hour] 650 mg PO Q6H PRN 07/24/24 07/24/24 History Atorvastatin [Lipitor] 80 mg PO HS 07/24/24 07/24/24 History Budesonide [Pulmicort] 0.5 mg INHALATION RT-BID 07/24/24 07/24/24 History Budesonide/Formoterol Fumarate 2 puff INHALATION RT-BID 07/24/24 07/24/24 History [Symbicort 80-4.5 Mcg Inhaler] Dapagliflozin Propanediol [Farxiga] 5 mg PO DAILY 07/24/24 07/24/24 History Furosemide [Lasix] 40 mg PO DAILY@0700 07/24/24 07/24/24 History Metoprolol Succinate (ER) [Toprol 25 mg PO DAILY 07/24/24 07/24/24 History Xl] Mirtazapine [Remeron Soluspan] 15 mg PO HS 07/24/24 07/24/24 History Mupirocin 2% Oint [Bactroban 2% 1 applic TOPICAL MOWEFR@2100 07/24/24 07/24/24 History Oint] Naloxone HCl 0.4 mg IM DIRECTED PRN 07/24/24 07/24/24 History Naloxone HCl [Narcan] 4 mg NASAL DIRECTED PRN 07/24/24 07/24/24 History Omeprazole Magnesium [PriLOSEC OTC] 40 mg PO DAILY 07/24/24 07/24/24 History Pregabalin [Lyrica] 50 mg PO TID@0700,1300,1900 07/24/24 07/24/24 History Sacubitril/Valsartan [Entresto 24 1 tab PO BID@0700,1600 07/24/24 07/24/24 History mg-26 mg Tablet] Sennosides [Senokot] 8.6 mg PO BID@0700,1600 07/24/24 07/24/24 History Sulfamethox-Tmp 800-160Mg [Bactrim 1 tab PO BID@0700,1600 07/24/24 07/24/24 History DS 800-160 mg] Ticagrelor [Brilinta] 90 mg PO BID@0700,1600 07/24/24 07/24/24 History Tiotropium 2.5 Mcg/Puff [Spiriva 2 puff INHALATION RT-DAILY 07/24/24 07/24/24 History Respimat 2.5 Mcg] methocarbamoL [Robaxin-750] 750 mg PO QID 07/24/24 07/24/24 History oxyCODONE HCL [oxyCODONE HCL (IR)] 5 mg PO Q4H PRN 07/24/24 07/24/24 History polyethylene glycoL 3350 [Miralax] 17 gm PO DAILY 07/24/24 07/24/24 History Allergies Allergy/AdvReac Type Severity Reaction Status Date / Time No Known Allergies Allergy Verified 07/24/24 18:18 Physical Exam Vitals: Vital Signs Temp Pulse Pulse Pulse Resp BP Pulse Ox 07/26/24 08:00 98.2 F 90 85 16 110/60 92 L 07/26/24 04:00 98.1 F 85 16 103/59 98 07/26/24 00:00 97.9 F 78 16 123/51 100 07/25/24 20:00 97.6 F 81 18 112/52 95 07/25/24 15:47 70 07/25/24 15:39 98.0 F 78 16 109/51 99 07/25/24 15:37 76 07/25/24 14:00 78 81 16 07/25/24 13:25 78 16 122/62 98 07/25/24 13:04 90 16 126/58 100 07/25/24 12:49 90 16 124/56 98 07/25/24 12:34 97.2 F L 90 16 102/49 100 Intake and Output 07/25/24 07/26/24 07/26/24 22:59 06:59 14:59 Intake Total 650 1440 Output Total 400 Balance 650 1040 Intake: Intake, IV Titration 900 Amount Sodium Chloride 0.9% 1, 900 000 ml @ 100 mls/hr IV . Q10H [facility] Rx#:[id number] Oral 650 540 Output: Urine 400 Other: Voiding Method External Catheter External Catheter External Catheter Weight 45 kg GENERAL DESCRIPTION: Elderly female lying in bed, no distress. No tachypnea or accessory muscle of respiration use. HEENT: Shows Pallor , no scleral icterus. Oral mucous membrane is dry. No pharyngeal erythema or thrush NECK: Trachea central, no thyromegaly. LUNGS: Unlabored breathing. Clear to auscultation anteriorly. No wheeze or crackle. HEART: S1, S2, regular rate and rhythm. No loud murmur ABDOMEN: Soft, no tenderness , guarding or rigidity, no organomegaly EXTREMITIES: Right AKA stump did have dehiscence with a loose stitches on did have some drainage which was cultured it is tender to touch SKIN: No rash, no masses palpable. NEUROLOGICAL: The patient is awake, alert, oriented x3, mood and affect normal. Results CBC & Chem 7: 07/25/24 07:11 07/25/24 07:11 Labs: Abnormal Lab Results - Last 24 Hours (Table) 07/24/24 Range/Units 15:44 Creatine Kinase 5148 H* (30-135) U/L Assessment and Plan (1) Infection of amputation stump, right lower extremity Current Visit: Yes Status: Acute Code(s): T87.43 - INFECTION OF AMPUTATION STUMP, RIGHT LOWER EXTREMITY SNOMED Code(s): 01367838361597238 Plan: 1patient with history of PAD in this patient who is status post right trhdf-bcp-xtlb amputation few weeks ago at [facility] subsequently admitted to that facility and did have infected stump status post debridement now with evidence of partial dehiscence of the wound likely from infection and secondary cellulitis. 2we will try to obtain culture data from her recent stay at [facility]. 3local culture has been obtained patient cannot further antibiotic therapy. 4discontinue Bactrim DS. 5we will empirically start the patient on vancomycin pharmacy to dose and cefepime while waiting for the culture to finalize. 6local wound care with Aquacel silver over packing of the wound change daily to 48 hours depending upon the drainage We will follow on clinical condition and cultures to further adjust medication if needed Thank you for this consultation we will follow the patient along with you Dictation was produced using [employer] dictation software. please excuse any grammatical, word or spelling errors. Time with Patient: Greater than 30
[2024-07-27 07:37] LABS: Anisocytosis Slight; Basophils % (A) 0 %; Eosinophils # (A) 0.1 k/uL (0-0.7); Eosinophils % (A) 2 %; HCT 26.7 % (34.0-46.0); HGB 8.1 gm/dL (11.4-16.0); Hypochromasia Marked; Lymphocytes # (A) 0.9 k/uL (1.0-4.8); Lymphocytes % (A) 11 %; MCH 29.5 pg (25.0-35.0); MCHC 30.4 g/dL (31.0-37.0); MCV 97.3 fL (80.0-100.0); Macrocytosis Slight; Mean Platelet Volume 6.9; Monocytes # (A) 0.4 k/uL (0-1.0); Monocytes % (A) 5 %; Neutrophils # (A) 6.4 k/uL (1.3-7.7); Neutrophils % (A) 81 %; Platelet Count 349 k/uL (150-450); RBC 2.74 m/uL (3.80-5.40); RDW 19.9 % (11.5-15.5); WBC 7.9 k/uL (3.8-10.6)
[2024-07-27 08:09] LABS: ALT 92 U/L (4-34); AST 185 U/L (14-36); African American GFR (CKD) 76 (>60 ml/min/1.73 sqM); Albumin 2.9 g/dL (3.5-5.0); Alkaline Phosphatase 89 U/L (38-126); Anion Gap 5 mmol/L; Bilirubin, Delta 0.4 mg/dL (0.0-0.2); Bilirubin,Unconjugated 0.3 mg/dL (0.0-1.1); Blood Urea Nitrogen 13 mg/dL (7-17); Calcium 7.9 mg/dL (8.4-10.2); Carbon Dioxide 21 mmol/L (22-30); Chloride 105 mmol/L (98-107); Glucose 105 mg/dL (74-99); Non-African American GFR(CKD) 66 (>60 ml/min/1.73 sqM); Potassium 4.5 mmol/L (3.5-5.1); Sodium 131 mmol/L (137-145); Total Bilirubin 0.7 mg/dL (0.2-1.3); Total Protein 6.1 g/dL (6.3-8.2)
[2024-07-27 09:17] LABS: Creatine Kinase 5182 U/L (30-135)
--- NOTE | 2024-07-27 11:21 | P.PN ---
Subjective Progress Note Date: 07/27/24 Principal diagnosis: Acute critical limb ischemia, unsalvageable Patient is seen and examined today as a follow-up. She is postop day #2 for left cezqb-cyl-utva amputation. She states that she is having some pain at her surgical site but is well managed. Objective - Vital Signs Vital signs: Vital Signs Temp 98.4 F 07/27/24 08:00 Pulse 72 07/27/24 08:41 Resp 17 07/27/24 08:00 BP 104/65 07/27/24 08:00 Pulse Ox 92 L 07/27/24 08:00 FiO2 Intake & Output 07/26/24 07/27/24 07/27/24 18:59 06:59 18:59 Intake Total 1230 200 360 Output Total 500 400 400 Balance 730 -200 -40 Weight 43.5 kg Intake: Intake, IV Titration 750 200 Amount Cefepime 2 gm In Sodium 100 100 Chloride 0.9% 100 ml @ 25 mls/hr IVPB Q8HR [facility] Rx# :[id number] Sodium Chloride 0.9% 1, 100 000 ml @ 50 mls/hr IV . Q20H [facility] Rx#:[id number] Sodium Chloride 0.9% 100 400 ml @ 0 mls/hr IV .STK-MED ONE with ceFAZolin 2,000 mg Rx#:[id number] Vancomycin 1,000 mg In 250 Sodium Chloride 0.9% 250 ml @ 125 mls/hr IVPB Q24H [facility] Rx#:[id number] Oral 480 360 Output: Urine 500 400 400 Other: Voiding Method External Catheter External Catheter External Catheter # Voids 0 - Exam General appearance: The patient is alert, oriented, appears in no acute distress. HET: Head is normocephalic and atraumatic. Neck: Supple. Heart: Regular. Lungs: Equal expansion, normal respiratory effort. Abdomen: Soft, nontender, nondistended. Extremities: Bilateral skzcs-bna-shqj amputations. Right with dressing in place. Left surgical site approximated with juju, Adaptic, Kerlix and Momo wrap. Neurological: Alert and oriented. - Labs CBC & Chem 7: 07/27/24 06:39 07/27/24 06:39 Labs: Abnormal Lab Results - Last 24 Hours (Table) 11/18/24 11/18/24 Range/Units 06:39 06:39 RBC 2.74 L (3.80-5.40) m/uL Hgb 8.1 L (11.4-16.0) gm/dL Hct 26.7 L (34.0-46.0) % MCHC 30.4 L (31.0-37.0) g/dL RDW 19.9 H (11.5-15.5) % Lymphocytes # 0.9 L (1.0-4.8) k/uL Sodium 131 L (137-145) mmol/L Carbon Dioxide 21 L (22-30) mmol/L Glucose 105 H (74-99) mg/dL Calcium 7.9 L (8.4-10.2) mg/dL Delta Bilirubin 0.4 H (0.0-0.2) mg/dL AST 185 H (14-36) U/L ALT 92 H (4-34) U/L Creatine Kinase 5182 H* (30-135) U/L Total Protein 6.1 L (6.3-8.2) g/dL Albumin 2.9 L (3.5-5.0) g/dL Assessment and Plan Assessment: 1. Acute critical limb ischemia Segun classification 3 unsalvageable status post left qeobt-ahm-paqb amputation 2. Recent history of right zfdot-ppp-tqxp amputation 3. History of severe peripheral arterial disease with previous revascularization 4. History of coronary artery disease with previous stents 5. Hypertension 6. History of ischemic cardiomyopathy 7. Chronic tobacco abuse 8. History of CVA Plan: 1. Consult physical and Occupational Therapy 2. Consult case management for Comfort prosthetics, stump pattern drafter and rigid dressing 3. Daily dressing change with Adaptic, 4 x 4, Kerlix. 4. Recommend smoking cessation 5. Continue Lyrica Thank you for this consultation, we will continue to follow. The impression and plan of care has been dictated as directed. I performed a history and examination of this patient, discussed the same with the dictator. I agree with the dictator's note ,documented as a scribe. Any additional findings or plans will be noted.
--- NOTE | 2024-07-27 11:42 | P.PN ---
Subjective Progress Note Date: 07/27/24 Principal diagnosis: Reason for follow-up is right AKA stump infection Patient is a 69-year-old female with a past medical history significant for hypertension hyperlipidemia coronary artery disease osteoarthritis reflux and also with a history of peripheral arterial disease in this patient who is status post right qhwdl-dym-rszv amputation that was done at [facility] few weeks ago with admission to this facility with critical left limb ischemia status post left oyvao-joz-wikb amputation patient noticed to have dehiscence of the right AKA stump prompting this consultation. On today's evaluation that is 07/27/2024,the patient remains to be afebrile, patient is on room air not requiring supplemental oxygen patient is sleepy did not answer any question no vomiting diarrhea any changes reported. Patient white count 7.8, creatinine 0.89 cultures currently pending Objective - Vital Signs Vital signs: Vital Signs Temp 97.3 F L 07/27/24 11:23 Pulse 86 07/27/24 11:23 Resp 16 07/27/24 11:23 BP 100/55 07/27/24 11:23 Pulse Ox 97 07/27/24 11:23 FiO2 Intake & Output 07/26/24 07/27/24 07/27/24 18:59 06:59 18:59 Intake Total 1230 200 360 Output Total 500 400 700 Balance 730 -200 -340 Weight 43.5 kg Intake: Intake, IV Titration 750 200 Amount Cefepime 2 gm In Sodium 100 100 Chloride 0.9% 100 ml @ 25 mls/hr IVPB Q8HR [facility] Rx# :[id number] Sodium Chloride 0.9% 1, 100 000 ml @ 50 mls/hr IV . Q20H [facility] Rx#:[id number] Sodium Chloride 0.9% 100 400 ml @ 0 mls/hr IV .STK-MED ONE with ceFAZolin 2,000 mg Rx#:[id number] Vancomycin 1,000 mg In 250 Sodium Chloride 0.9% 250 ml @ 125 mls/hr IVPB Q24H [facility] Rx#:[id number] Oral 480 360 Output: Urine 500 400 700 Other: Voiding Method External Catheter External Catheter External Catheter # Voids 0 - Exam GENERAL DESCRIPTION: An elderly female lying in bed in no distress RESPIRATORY SYSTEM: Unlabored breathing , decreased breath sounds at bases HEART: S1 S2 regular rate and rhythm , ABDOMEN: Soft , no tenderness EXTREMITIES: Right AKA stump is currently dressed - Labs CBC & Chem 7: 07/27/24 06:39 07/27/24 06:39 Labs: Abnormal Lab Results - Last 24 Hours (Table) 07/27/24 07/27/24 Range/Units 06:39 06:39 RBC 2.74 L (3.80-5.40) m/uL Hgb 8.1 L (11.4-16.0) gm/dL Hct 26.7 L (34.0-46.0) % MCHC 30.4 L (31.0-37.0) g/dL RDW 19.9 H (11.5-15.5) % Lymphocytes # 0.9 L (1.0-4.8) k/uL Sodium 131 L (137-145) mmol/L Carbon Dioxide 21 L (22-30) mmol/L Glucose 105 H (74-99) mg/dL Calcium 7.9 L (8.4-10.2) mg/dL Delta Bilirubin 0.4 H (0.0-0.2) mg/dL AST 185 H (14-36) U/L ALT 92 H (4-34) U/L Creatine Kinase 5182 H* (30-135) U/L Total Protein 6.1 L (6.3-8.2) g/dL Albumin 2.9 L (3.5-5.0) g/dL Assessment and Plan (1) Infection of amputation stump, right lower extremity Current Visit: Yes Status: Acute Code(s): T87.43 - INFECTION OF AMPUTATION STUMP, RIGHT LOWER EXTREMITY SNOMED Code(s): 17034333690237816 Plan: 1patient with history of PAD in this patient who is status post right ahxbf-kmi-ruvu amputation few weeks ago at [facility] subsequently admitted to that facility and did have infected stump status post debridement now with evidence of partial dehiscence of the wound likely from infection and secondary cellulitis. 2patient did havelocal culture as well as blood cultures are currently pending 3patient will continue vancomycin pharmacy to dose and cefepime while waiting for the culture to finalize. 4local wound care with Aquacel silver over packing of the wound change daily to 48 hours depending upon the drainage Dictation was produced using dragon dictation software. please excuse any grammatical, word or spelling errors. Time with Patient: Less than 30
--- NOTE | 2024-07-27 13:57 | P.PN ---
Subjective Progress Note Date: 07/27/24 HISTORY OF PRESENT ILLNESS: This is a 69-year-old female with a past medical history significant for co ronary artery disease with previous stenting, peripheral vascular disease, hypertension, hyperlipidemia, nicotine dependence, and medication noncompliance. Patient follow in the office with Dr. Wolfe but has not been seen since 2018. We have been asked to see the patient in consultation for cardiac clearance. Patient examined at the bedside. Patient presented to the hospital for chief complaint of discomfort in her left leg. Patient has a known history of peripheral vascular disease and has had previous lower extremity intervention. The patient also reports that she was at [facility] recently and underwent right AKA about 2 weeks ago. Patient underwent CT angio which revealed no flow through left SFA stent. She is scheduled to undergo left jrdqy-nms-tmct amputation today with Dr. William. The patient currently denies any chest pain or pressure. She denies shortness of breath. Vital signs are stable. DIAGNOSTICS: - EKG reveals sinus mechanism with T wave inversions in the lateral leads - Laboratory data: WBC 7.1. Hemoglobin 8.6. Platelet count 368. Sodium 135. Potassium 4.4. BUN 17. Creatinine 0.76. Creatinine kinase 5148. AST 202. ALT 136. - Current home cardiac medications include aspirin 81 mg daily, Lipitor 80 mg at night, Farxiga 5 mg daily, Lasix 40 mg daily, metoprolol succinate 25 mg daily, Entresto 24-26 mg twice a day, Aldactone 25 mg daily, Brilinta 90 mg twice a day - Most recent echocardiogram obtained in February 2024 revealed ejection fraction 30 to 35% with mild to moderate tricuspid regurgitation and small pericardial effusion - Cardiac catheterization history: October [address] Mcadams and underwent stenting to the mid LAD with Dr. Wolfe. Patent stent within the circumflex coronary artery. 07/26/2024 Patient is status post left AKA. Patient denies chest pain or pressure. She denies shortness of breath. Vital signs are stable. Telemetry reveals sinus mechanism. Limited echo completed revealing ejection fraction 30 to 35% with mild MR. 07/27/2024 Patient is seen and examined. She denies having any chest pain or chest pressure, no shortness of breath. She thinks she is eating okay. Repeat blood work reveals hemoglobin 8.1. Sodium 131, potassium 4.5, creatinine 0.89. CK 5182. Liver function test remain elevated. Blood pressure 100/55, heart rate 86, pulse ox 97% on room air. PHYSICAL EXAM: VITAL SIGNS: Reviewed. GENERAL: Well-developed in no acute distress. HEENT: Head is normocephalic. Pupils are equal, round. Sclerae anicteric. Mucous membranes of the mouth are moist. Neck supple. No JVD or thyromegaly LUNGS: Respirations even and unlabored. Lungs essentially clear to auscultation bilaterally. HEART: Regular rate and rhythm. S1 and S2 heard. Systolic murmur noted. ABDOMEN: Soft. Nondistended. Nontender. EXTREMITIES: No clubbing or cyanosis. Right yvkjs-wgw-svfo amputation. Left AKA NEUROLOGIC: Awake and alert. Oriented x 3. ASSESSMENT: Left leg pain Acute left lower extremity limb occlusion, CTA reveals no flow through SFA or distally, status post left AKA Recent right MTA [facility] Peripheral vascular disease with previous lower extremity intervention Coronary artery disease with previous stenting of the circumflex and most recent stenting of mid LAD, 10/2023 Ischemic cardiomyopathy, 3035% Chronic heart failure with reduced EF, currently euvolemic Hypertension Hyperlipidemia Nicotine dependence History of medication noncompliance PLAN: Continue postoperative management per vascular surgery Continue dual antiplatelet therapy with aspirin and Brilinta due to stenting in 10/2023 Continue additional cardiac medications: : Farxiga 10 mg daily, Lasix 40 mg daily, Toprol-XL 25 mg daily, Entresto 24-26 mg twice daily, Aldactone 25 mg daily Patient is stable from cardiac perspective. She is cleared for discharge once cleared by attending and other consultants Cardiology will sign off this case and follow on an as-needed basis. Please reconsult for any new concerns. Patient may follow-up with Dr. Wolfe in the office in one to 2 weeks. Nurse practitioner note has been reviewed by physician. Signing provider agrees with the documented findings, assessment, and plan of care documented by ENGINEERING DIRECTOR as a scribe. Objective - Vital Signs Vital signs: Vital Signs Temp 98.4 F 07/27/24 08:00 Pulse 72 07/27/24 08:41 Resp 17 07/27/24 08:00 BP 104/65 07/27/24 08:00 Pulse Ox 92 L 07/27/24 08:00 FiO2 Intake & Output 07/26/24 07/27/24 07/27/24 18:59 06:59 18:59 Intake Total 1230 200 360 Output Total 500 400 400 Balance 730 -200 -40 Weight 43.5 kg Intake: Intake, IV Titration 750 200 Amount Cefepime 2 gm In Sodium 100 100 Chloride 0.9% 100 ml @ 25 mls/hr IVPB Q8HR [facility] Rx# :[id number] Sodium Chloride 0.9% 1, 100 000 ml @ 50 mls/hr IV . Q20H [facility] Rx#:[id number] Sodium Chloride 0.9% 100 400 ml @ 0 mls/hr IV .STK-MED ONE with ceFAZolin 2,000 mg Rx#:[id number] Vancomycin 1,000 mg In 250 Sodium Chloride 0.9% 250 ml @ 125 mls/hr IVPB Q24H [facility] Rx#:[id number] Oral 480 360 Output: Urine 500 400 400 Other: Voiding Method External Catheter External Catheter External Catheter # Voids 0 - Labs CBC & Chem 7: 07/27/24 06:39 07/27/24 06:39 Labs: Abnormal Lab Results - Last 24 Hours (Table) 07/27/24 07/27/24 Range/Units 06:39 06:39 RBC 2.74 L (3.80-5.40) m/uL Hgb 8.1 L (11.4-16.0) gm/dL Hct 26.7 L (34.0-46.0) % MCHC 30.4 L (31.0-37.0) g/dL RDW 19.9 H (11.5-15.5) % Lymphocytes # 0.9 L (1.0-4.8) k/uL Sodium 131 L (137-145) mmol/L Carbon Dioxide 21 L (22-30) mmol/L Glucose 105 H (74-99) mg/dL Calcium 7.9 L (8.4-10.2) mg/dL Delta Bilirubin 0.4 H (0.0-0.2) mg/dL AST 185 H (14-36) U/L ALT 92 H (4-34) U/L Creatine Kinase 5182 H* (30-135) U/L Total Protein 6.1 L (6.3-8.2) g/dL Albumin 2.9 L (3.5-5.0) g/dL
--- NOTE | 2024-07-27 15:55 | XR ---
EXAMINATION TYPE: XR chest 1V portable DATE OF EXAM: 07/27/2024 3:07 PM COMPARISON: Chest radiographs from 02/13/2024. CLINICAL INDICATION: Female, 69 years old with history of chf; TECHNIQUE: XR chest 1V portable Frontal view of the chest. FINDINGS: Lungs/Pleura: Blunting of the right costophrenic angle. There is no evidence of pleural effusion, foc al consolidation, or pneumothorax. Pulmonary vascularity: Unremarkable. Heart/mediastinum: Cardiomediastinal silhouette is enlarged. Musculoskeletal: No acute osseous pathology. IMPRESSION: Cardiomegaly with small right pleural effusion and pulmonary vascular congestion. [facility], , 07/27/2024 3:53 PM
[2024-07-27] MEDS: CEFEPIME 2 GM in SODIUM CHLORIDE 0.9% 100 ML IVPB SCH (20:44)
--- NOTE | 2024-07-28 05:56 | PN ---
PROGRESS NOTE DATE OF SERVICE: 07/27/2024 SUBJECTIVE: This is a 69-year-old woman, who was admitted with right AKA stump infection, also had peripheral vascular disease also. No chest pain. No palpitations. No fever. OBJECTIVE: VITAL SIGNS: Pulse is 86, blood pressure 100/55, respirations 16. CHEST: A few scattered rhonchi. ABDOMEN: Soft. NERVOUS SYSTEM: Nonfocal. LABORATORY DATA: Hemoglobin 8.1, and creatine kinase 5182. ASSESSMENT: 1. Acute ischemia of the left lower extremity with obstruction of left SFA. 2. Possible confusion, metabolic encephalopathy. 3. Right stump infection. 4. Rhabdomyolysis. 5. Transaminitis. 6. Cardiomyopathy. 7. Chronic kidney disease. 8. Hypertension. RECOMMENDATIONS AND DISCUSSION: I recommend to continue current management and continue symptomatic treatment. Repeat labs. Otherwise, PT, OT evaluation. Continue the broad-spectrum IV antibiotics. Cultures are negative so far. Further recommendations to follow. MMODL / IJN: [id number] /
--- NOTE | 2024-07-28 09:00 | P.PN ---
Subjective Progress Note Date: 07/28/24 Principal diagnosis: Acute critical limb ischemia, unsalvageable Patient is seen and examined today as a follow-up. No acute changes through the night. Pain is well-controlled. Order was given to case management for stump automatic mounter and rigid dressing for comfort prosthetics. Labs are currently pending. Objective - Vital Signs Vital signs: Vital Signs Temp 98.7 F 07/27/24 20:41 Pulse 76 07/28/24 08:50 Resp 16 07/28/24 04:44 BP 94/55 07/28/24 04:44 Pulse Ox 99 07/28/24 04:44 FiO2 Intake & Output 07/27/24 07/28/24 07/28/24 18:59 06:59 18:59 Intake Total 1680 240 Output Total 1000 300 Balance 680 -60 Weight 43.5 kg 43.8 kg Intake: Oral 1680 240 Output: Urine 1000 300 Other: Voiding Method External Catheter External Catheter - Exam General appearance: The patient is alert, oriented, appears in no acute distress. HET: Head is normocephalic and atraumatic. Neck: Supple. Heart: Regular. Lungs: Equal expansion, normal respiratory effort. Abdomen: Soft, nontender, nondistended. Extremities: Bilateral kyqxl-ysm-kmkz amputations. Right with dressing in place. Left surgical site approximated with juju, Adaptic, Kerlix and Momo wrap. Neurological: Alert and oriented. - Labs CBC & Chem 7: 07/27/24 06:39 07/27/24 06:39 Labs: Abnormal Lab Results - Last 24 Hours (Table) 07/27/24 Range/Units 06:39 Creatine Kinase 5182 H* (30-135) U/L Microbiology - Last 24 Hours (Table) 07/26/24 14:24 Blood Culture - Preliminary Blood 07/26/24 13:00 Gram Stain - Preliminary Knee - Right Wound Culture - Preliminary Yeast species Assessment and Plan Assessment: 1. Acute critical limb ischemia [place] classification 3 unsalvageable status post left kzfle-lea-edyg amputation 2. Recent history of right cocnx-tmw-qmdy amputation 3. History of severe peripheral arterial disease with previous revascularization 4. History of coronary artery disease with previous stents 5. Hypertension 6. History of ischemic cardiomyopathy 7. Chronic tobacco abuse 8. History of CVA Plan: 1. Consult physical and Occupational Therapy 2. Consult case management for Comfort prosthetics, stump automatic mounter and rigid dressing 3. Daily dressing change with Adaptic, 4 x 4, Kerlix. 4. Recommend smoking cessation 5. Continue Lyrica Thank you for this consultation, patient is cleared from vascular surgery for discharge. The impression and plan of care has been dictated as directed. I performed a history and examination of this patient, discussed the same with the dictator. I agree with the dictator's note ,documented as a scribe. Any additional findings or plans will be noted.
[2024-07-28 09:23] LABS: Anisocytosis Moderate; Basophils % (A) 0 %; Eosinophils # (A) 0.1 k/uL (0-0.7); Eosinophils % (A) 1 %; HCT 26.9 % (34.0-46.0); HGB 8.3 gm/dL (11.4-16.0); Hypochromasia Marked; Lymphocytes # (A) 1.3 k/uL (1.0-4.8); Lymphocytes % (A) 13 %; MCH 29.4 pg (25.0-35.0); MCHC 30.7 g/dL (31.0-37.0); MCV 95.8 fL (80.0-100.0); Macrocytosis Slight; Mean Platelet Volume 7.5; Monocytes # (A) 0.4 k/uL (0-1.0); Monocytes % (A) 4 %; Neutrophils # (A) 7.9 k/uL (1.3-7.7); Neutrophils % (A) 80 %; Platelet Count 344 k/uL (150-450); RBC 2.81 m/uL (3.80-5.40); RDW 20.2 % (11.5-15.5); WBC 9.9 k/uL (3.8-10.6)
[2024-07-28 09:26] LABS: African American GFR (CKD) 67 (>60 ml/min/1.73 sqM); Anion Gap 8 mmol/L; Blood Urea Nitrogen 19 mg/dL (7-17); Calcium 8.6 mg/dL (8.4-10.2); Carbon Dioxide 23 mmol/L (22-30); Chloride 105 mmol/L (98-107); Glucose 109 mg/dL (74-99); Non-African American GFR(CKD) 58 (>60 ml/min/1.73 sqM); Potassium 4.2 mmol/L (3.5-5.1); Sodium 136 mmol/L (137-145)
--- NOTE | 2024-07-28 14:00 | P.PN ---
Subjective Progress Note Date: 07/28/24 Principal diagnosis: Reason for follow-up is right AKA stump infection Patient is a 69-year-old female with a past medical history significant for hypertension hyperlipidemia coronary artery disease osteoarthritis reflux and also with a history of peripheral arterial disease in this patient who is status post right erecf-rbk-mcqt amputation that was done at [facility] few weeks ago with admission to this facility with critical left limb ischemia status post left kizrv-kcu-znnh amputation patient noticed to have dehiscence of the right AKA stump prompting this consultation. On today's evaluation that is 07/28/2024, the patient continues to be afebrile, the patient is on room air and breathing comfortably, the Pt denies having any chest pain or cough, the patient denies having any abdominal pain no vomiting or any diarrhea has been reported still complaining of pain to bilateral AKA stump. Patient white count is 9.9, creatinine 0.9 and culture now showing yeast species Objective - Vital Signs Vital signs: Vital Signs Temp 98.0 F 07/28/24 09:21 Pulse 101 H 07/28/24 09:21 Resp 18 07/28/24 09:21 BP 93/53 07/28/24 09:21 Pulse Ox 94 L 07/28/24 09:21 FiO2 Intake & Output 07/27/24 07/28/24 07/28/24 18:59 06:59 18:59 Intake Total 1680 240 250 Output Total 1000 300 100 Balance 680 -60 150 Weight 43.5 kg 43.8 kg Intake: Oral 1680 240 250 Output: Urine 1000 300 100 Other: Voiding Method External Catheter External Catheter External Catheter # Voids 1 # Bowel Movements 1 - Exam GENERAL DESCRIPTION: An elderly female lying in bed in no distress RESPIRATORY SYSTEM: Unlabored breathing , decreased breath sounds at bases HEART: S1 S2 regular rate and rhythm , ABDOMEN: Soft , no tenderness EXTREMITIES: Right AKA stump is currently dressed - Labs CBC & Chem 7: 07/28/24 08:56 07/28/24 08:56 Labs: Abnormal Lab Results - Last 24 Hours (Table) 07/28/24 07/28/24 Range/Units 08:56 08:56 RBC 2.81 L (3.80-5.40) m/uL Hgb 8.3 L (11.4-16.0) gm/dL Hct 26.9 L (34.0-46.0) % MCHC 30.7 L (31.0-37.0) g/dL RDW 20.2 H (11.5-15.5) % Neutrophils # 7.9 H (1.3-7.7) k/uL Sodium 136 L (137-145) mmol/L BUN 19 H (7-17) mg/dL Glucose 109 H (74-99) mg/dL Microbiology - Last 24 Hours (Table) 07/26/24 14:24 Blood Culture - Preliminary Blood 07/26/24 13:00 Gram Stain - Preliminary Knee - Right Wound Culture - Preliminary Yeast species Assessment and Plan (1) Infection of amputation stump, right lower extremity Current Visit: Yes Status: Acute Code(s): T87.43 - INFECTION OF AMPUTATION STUMP, RIGHT LOWER EXTREMITY SNOMED Code(s): 87943744453536989 Plan: 1patient with history of PAD in this patient who is status post right updgh-nxd-xdxd amputation few weeks ago at [facility] subsequently admitted to that facility and did have infected stump status post debridement now with evidence of partial dehiscence of the wound likely from infection and secondary cellulitis. 2patient did havelocal culture growing yeast possible colonization blood culture pending 3local wound care with Aquacel silver over packing of the wound change daily to 48 hours depending upon the drainage 4we will continue cefepime transition to p.o. antibiotic on discharge discontinue vancomycin as no MRSA Dictation was produced using [employer] dictation software. please excuse any grammatical, word or spelling errors. Time with Patient: Less than 30
[2024-07-28] MEDS: FLUCONAZOLE 100 MG TAB PO SCH (15:10)
[2024-07-28] MEDS: SODIUM CHLORIDE 0.9% 1,000 ML IV SCH (16:07)
--- NOTE | 2024-07-29 06:21 | PN ---
PROGRESS NOTE DATE OF SERVICE: 07/28/2024 SUBJECTIVE: This is a 69-year-old woman, who was admitted with right AKA stump infection, also had peripheral vascular disease. The patient has surgery on the left SFA. The patient is slated to go to [facility] at this time. No chest pain. No palpitation. OBJECTIVE: VITAL SIGNS: Pulse is 61, blood pressure 91/50, respirations 15. CHEST: Clear to auscultation. CARDIOVASCULAR: S1, S2. ABDOMEN: Soft. NERVOUS SYSTEM: Nonfocal. LABORATORY DATA: Hemoglobin 8.3, rest of the labs are noted. CK is 5182. ASSESSMENT: 1. Acute ischemia of the left lower extremity with obstruction of left SFA. 2. Possible confusion, acute metabolic encephalopathy. 3. Right stump infection. 4. Rhabdomyolysis. 5. Transaminitis. 6. Cardiomyopathy. 7. Chronic kidney disease. 8. Hypertension. 9. Right pleural effusion. RECOMMENDATIONS AND DISCUSSION: Recommend to continue current medications and continue symptomatic treatment. The wound culture is showing yeast. I would add Diflucan to the current regimen. Otherwise, the patient reduce the dose of lopressor. The patient is on cefepime. I would also recommend a short course of IV fluids. The chest x-ray done yesterday was reviewed, showed some right pleural effusion. Further recommendations to follow. MMODL / IJN: [id number] /
[2024-07-29 06:48] LABS: Anisocytosis Moderate; Basophils % (A) 0 %; Eosinophils # (A) 0.2 k/uL (0-0.7); Eosinophils % (A) 2 %; HGB 7.1 gm/dL (11.4-16.0); Hypochromasia Marked; Lymphocytes # (A) 1.2 k/uL (1.0-4.8); Lymphocytes % (A) 16 %; MCH 29.4 pg (25.0-35.0); MCHC 30.8 g/dL (31.0-37.0); MCV 95.3 fL (80.0-100.0); Macrocytosis Slight; Mean Platelet Volume 7.5; Monocytes # (A) 0.4 k/uL (0-1.0); Monocytes % (A) 5 %; Neutrophils # (A) 5.7 k/uL (1.3-7.7); Neutrophils % (A) 75 %; Platelet Count 308 k/uL (150-450); RBC 2.42 m/uL (3.80-5.40); RDW 20.2 % (11.5-15.5); WBC 7.7 k/uL (3.8-10.6)
[2024-07-29 07:04] LABS: African American GFR (CKD) 53 (>60 ml/min/1.73 sqM); Anion Gap 8 mmol/L; Blood Urea Nitrogen 21 mg/dL (7-17); Calcium 8.2 mg/dL (8.4-10.2); Carbon Dioxide 20 mmol/L (22-30); Chloride 105 mmol/L (98-107); Glucose 98 mg/dL (74-99); Non-African American GFR(CKD) 46 (>60 ml/min/1.73 sqM); Potassium 3.8 mmol/L (3.5-5.1); Sodium 133 mmol/L (137-145)
[2024-07-29 07:11] LABS: Creatine Kinase 1534 U/L (30-135)
[2024-07-29] MEDS: METOPROLOL SUCCINATE (ER) 25 MG TAB.ER.24H PO SCH (08:33)
--- NOTE | 2024-07-29 11:20 | P.PN ---
Subjective Progress Note Date: 07/29/24 Principal diagnosis: Acute critical limb ischemia, unsalvageable Patient is seen and examined today as a follow-up. She is confused this morning and alert and oriented to self and place. Left AKA surgical site well- approximated with juju. Patient will keep dressing or Momo wrap in place. No bleeding. Surrounding skin is pink warm and dry. Elevated CK trending down and likely secondary to ischemic disease. Objective - Vital Signs Vital signs: Vital Signs Temp 98.3 F 07/29/24 08:25 Pulse 80 07/29/24 09:07 Resp 18 07/29/24 09:07 BP 104/55 07/29/24 08:25 Pulse Ox 99 07/29/24 08:25 FiO2 Intake & Output 07/28/24 07/29/24 07/29/24 18:59 06:59 18:59 Intake Total 1650 650 Output Total 700 500 Balance 950 -500 650 Intake: Oral 1650 650 Output: Urine 700 500 Other: Voiding Method External Catheter External Catheter External Catheter # Voids 1 # Bowel Movements 1 - Exam General appearance: The patient is alert, oriented to self and place, appears in no acute distress. HET: Head is normocephalic and atraumatic. Neck: Supple. Abdomen: Soft, nondistended. Extremities: Bilateral kxfcf-ind-wcok amputations. Right with dressing in place. Left surgical site approximated with juju, no bleeding, surrounding tissue warm and pink. Neurological: Confused, oriented to self and place. - Labs CBC & Chem 7: 07/29/24 06:18 07/29/24 06:18 Labs: Abnormal Lab Results - Last 24 Hours (Table) 07/29/24 07/29/24 Range/Units 06:18 06:18 RBC 2.42 L (3.80-5.40) m/uL Hgb 7.1 L (11.4-16.0) gm/dL Hct 23.0 L (34.0-46.0) % MCHC 30.8 L (31.0-37.0) g/dL RDW 20.2 H (11.5-15.5) % Sodium 133 L (137-145) mmol/L Carbon Dioxide 20 L (22-30) mmol/L BUN 21 H (7-17) mg/dL Creatinine 1.21 H (0.52-1.04) mg/dL Calcium 8.2 L (8.4-10.2) mg/dL Creatine Kinase 1534 H* (30-135) U/L Microbiology - Last 24 Hours (Table) 07/26/24 14:24 Blood Culture - Preliminary Blood 07/26/24 13:00 Anaerobic Culture - Preliminary Knee - Right 07/26/24 13:00 Gram Stain - Final Knee - Right Wound Culture - Final Alanis albicans Assessment and Plan Assessment: 1. Acute critical limb ischemia [place] classification 3 unsalvageable status post left yqgwi-xlc-erpk amputation 2. Recent history of right fihip-orn-sxit amputation 3. History of severe peripheral arterial disease with previous revascularization 4. History of coronary artery disease with previous stents 5. Hypertension 6. History of ischemic cardiomyopathy 7. Chronic tobacco abuse 8. History of CVA 9. Anemia, chronic may be some component of acute blood loss secondary to surgery Plan: 1. Consult physical and Occupational Therapy 2. Consult case management for Comfort prosthetics, stump press leader and rigid dressing comfort prosthetics to follow with patient on Saturday at [facility]. 3. Dressing change as needed, may apply Adaptic and Kerlix. Recommend Momo wrap until stump press leader applied 4. Recommend smoking cessation 5. Continue Lyrica Thank you for this consultation, patient is cleared from vascular surgery for discharge. We will sign off at this time. The impression and plan of care has been dictated as directed. Dr. Infante I performed a history and examination of this patient, discussed the same with the dictator. I agree with the dictator's note ,documented as a scribe. Any additional findings or plans will be noted.
[2024-07-29] MEDS ORDERED: VANCOMYCIN TROUGH DUE 1 EACH MISC MISCELLANE ONE (13:00)
[2024-07-29] MEDS: ZINC OXIDE PASTE (Z-GUARD) 1 APPLIC TOPICAL PRN (17:08)
[2024-07-30 06:50] LABS: Anisocytosis Slight; Basophils % (A) 0 %; Eosinophils # (A) 0.2 k/uL (0-0.7); Eosinophils % (A) 2 %; HCT 27.6 % (34.0-46.0); Hypochromasia Marked; Lymphocytes # (A) 1.5 k/uL (1.0-4.8); Lymphocytes % (A) 17 %; MCH 30.8 pg (25.0-35.0); MCHC 32.1 g/dL (31.0-37.0); Macrocytosis Slight; Mean Platelet Volume 7.2; Monocytes # (A) 0.4 k/uL (0-1.0); Monocytes % (A) 5 %; Neutrophils # (A) 6.5 k/uL (1.3-7.7); Neutrophils % (A) 73 %; Platelet Count 291 k/uL (150-450); RBC 2.88 m/uL (3.80-5.40); RDW 18.6 % (11.5-15.5); WBC 8.8 k/uL (3.8-10.6)
[2024-07-30 06:54] LABS: HGB 8.9 gm/dL (11.4-16.0)
--- NOTE | 2024-07-30 07:25 | PN ---
PROGRESS NOTE DATE OF SERVICE: 07/29/2024 SUBJECTIVE: This is a 69-year-old woman, who was admitted with right AKA stump infection, also had peripheral vascular disease. The patient also was confused. Multiple consultants are following the patient closely. The most recent chest x-ray done on 07/27 showed some cardiomegaly and pulmonary vascular congestion and right pleural effusion. PAST MEDICAL HISTORY: Reviewed. REVIEW OF SYSTEMS: Fourteen-point review is negative except as mentioned earlier. PHYSICAL EXAMINATION: VITAL SIGNS: Pulse is 65, blood pressure 92/40, respirations 18. CHEST: A few scattered rhonchi and crackles. ABDOMEN: Soft. NERVOUS SYSTEM: Nonfocal. LABORATORY DATA: Hemoglobin 7.1, sodium 133. INR 1.2. CK is 1534. ASSESSMENT: 1. Acute ischemia of the left lower extremity with obstruction of the left SFA. 2. Possible confusion, acute metabolic encephalopathy. 3. Right pleural effusion and pulmonary vascular congestion. 4. Right stump infection. 5. Rhabdomyolysis. 6. Transaminitis. 7. Cardiomyopathy. 8. Chronic kidney disease. 9. Hypertension. 10.Multiple complex medical issues. 11.Anemia multifactorial, symptomatic. RECOMMENDATIONS AND DISCUSSION: Recommend to continue current management and continue symptomatic treatment. Otherwise, at this time, I would recommend repeat labs. Repeat CK. 1 unit transfusion. Continue with antibiotics. Cultures are showing Alanis. Add Diflucan. Prognosis guarded. Further recommendations to follow. MMODL / IJN: [id number] /
[2024-07-30 07:35] LABS: African American GFR (CKD) 56 (>60 ml/min/1.73 sqM); Anion Gap 6 mmol/L; Blood Urea Nitrogen 24 mg/dL (7-17); Calcium 8.2 mg/dL (8.4-10.2); Carbon Dioxide 22 mmol/L (22-30); Chloride 104 mmol/L (98-107); Glucose 102 mg/dL (74-99); Non-African American GFR(CKD) 48 (>60 ml/min/1.73 sqM); Potassium 3.7 mmol/L (3.5-5.1); Sodium 132 mmol/L (137-145)
[2024-07-30 07:44] LABS: Creatine Kinase 1357 U/L (30-135)
--- NOTE | 2024-07-30 08:47 | P.PN ---
Subjective Progress Note Date: 07/29/24 Principal diagnosis: Reason for follow-up is right AKA stump infection Patient is a 69-year-old female with a past medical history significant for hypertension hyperlipidemia coronary artery disease osteoarthritis reflux and also with a history of peripheral arterial disease in this patient who is status post right uxatg-qbb-vvid amputation that was done at [facility] few weeks ago with admission to this facility with critical left limb ischemia status post left rdugu-jrl-uxie amputation patient noticed to have dehiscence of the right AKA stump prompting this consultation. On today's evaluation that is 07/29/2024, patient has been afebrile, patient is breathing comfortably and is currently on room air, patient denies having any significant cough no chest pain, patient denies nausea vomiting or diarrhea still complaining of pain to bilateral AKA stump. Patient white count is 8.8, creatinine is 1.15 cultures growing Alanis albicans Objective - Vital Signs Vital signs: Vital Signs Temp 98.3 F 07/29/24 08:25 Pulse 65 07/29/24 11:30 Resp 18 07/29/24 11:30 BP 92/42 07/29/24 11:30 Pulse Ox 94 L 07/29/24 11:30 FiO2 Intake & Output 07/28/24 07/29/24 07/29/24 18:59 06:59 18:59 Intake Total 1650 1900 Output Total 700 500 400 Balance 950 -500 1500 Intake: Oral 1650 1900 Output: Urine 700 500 400 Other: Voiding Method External Catheter External Catheter External Catheter # Voids 1 # Bowel Movements 1 1 - Exam GENERAL DESCRIPTION: An elderly female lying in bed in no distress RESPIRATORY SYSTEM: Unlabored breathing , decreased breath sounds at bases HEART: S1 S2 regular rate and rhythm , ABDOMEN: Soft , no tenderness EXTREMITIES: Right AKA stump is currently dressed - Labs CBC & Chem 7: 07/30/24 06:26 07/30/24 06:26 Labs: Abnormal Lab Results - Last 24 Hours (Table) 07/29/24 07/29/24 Range/Units 06:18 06:18 RBC 2.42 L (3.80-5.40) m/uL Hgb 7.1 L (11.4-16.0) gm/dL Hct 23.0 L (34.0-46.0) % MCHC 30.8 L (31.0-37.0) g/dL RDW 20.2 H (11.5-15.5) % Sodium 133 L (137-145) mmol/L Carbon Dioxide 20 L (22-30) mmol/L BUN 21 H (7-17) mg/dL Creatinine 1.21 H (0.52-1.04) mg/dL Calcium 8.2 L (8.4-10.2) mg/dL Creatine Kinase 1534 H* (30-135) U/L Microbiology - Last 24 Hours (Table) 07/26/24 14:24 Blood Culture - Preliminary Blood 07/26/24 13:00 Anaerobic Culture - Preliminary Knee - Right 07/26/24 13:00 Gram Stain - Final Knee - Right Wound Culture - Final Alanis albicans Assessment and Plan (1) Infection of amputation stump, right lower extremity Current Visit: Yes Status: Acute Code(s): T87.43 - INFECTION OF AMPUTATION STUMP, RIGHT LOWER EXTREMITY SNOMED Code(s): 81628316708677565 Plan: 1patient with history of PAD in this patient who is status post right dmuqe-zgo-ebvz amputation few weeks ago at [facility] subsequently admitted to that facility and did have infected stump status post debridement now with evidence of partial dehiscence of the wound likely from infection and secondary cellulitis. 2patient did havelocal culture growing yeast possible colonization blood culture so far negative 3local wound care with Aquacel silver over packing of the wound change daily to 48 hours depending upon the drainage 4patient will continue with the cefepime will transition to oral antibiotics on discharge Dictation was produced using [employer] dictation software. please excuse any gr ammatical, word or spelling errors. Time with Patient: Less than 30
[2024-07-30 08:50] VITALS: BMI 18.8
--- NOTE | 2024-07-30 12:34 | P.PN ---
Subjective Progress Note Date: 07/30/24 Principal diagnosis: Reason for follow-up is right AKA stump infection Patient is a 69-year-old female with a past medical history significant for hypertension hyperlipidemia coronary artery disease osteoarthritis reflux and also with a history of peripheral arterial disease in this patient who is status post right dcjiw-sqw-hokk amputation that was done at [facility] few weeks ago with admission to this facility with critical left limb ischemia status post left hqtic-cpc-tvmt amputation patient noticed to have dehiscence of the right AKA stump prompting this consultation. On today's evaluation that is 07/30/2024, Patient is afebrile this morning patient denies having any chest pain shortness of breath or cough, the patient is currently on room air, patient denies any abdominal pain no diarrhea no nausea no vomiting still having some drainage from the right AKA stump however the patient is complaining of more pain to the left AKA stump. And the family at the bedside concerned about her mental status. The patient white count is 8.8, creatinine is 1.15 Objective - Vital Signs Vital signs: Vital Signs Temp 97.7 F 07/30/24 08:15 Pulse 88 07/30/24 11:43 Resp 17 07/30/24 08:15 BP 110/53 07/30/24 08:15 Pulse Ox 99 07/30/24 08:15 FiO2 Intake & Output 07/29/24 07/30/24 07/30/24 18:59 06:59 18:59 Intake Total 2350 308 138 Output Total 400 300 Balance 1950 8 138 Weight 43.8 kg Intake: IV 30 20 Invasive Line 3 20 10 Invasive Line 4 10 10 Oral 2350 118 Blood Product 0 278 Rc Pheresis 2 As3 Unit 0 278 [id number] Output: Urine 400 300 Other: Voiding Method External Catheter External Catheter External Catheter # Voids 1 # Bowel Movements 1 - Exam GENERAL DESCRIPTION: An elderly female lying in bed in no distress RESPIRATORY SYSTEM: Unlabored breathing , decreased breath sounds at bases HEART: S1 S2 regular rate and rhythm , ABDOMEN: Soft , no tenderness EXTREMITIES: Right AKA stump did have some drainage no significant redness - Labs CBC & Chem 7: 07/30/24 06:26 07/30/24 06:26 Labs: Abnormal Lab Results - Last 24 Hours (Table) 07/29/24 07/30/24 07/30/24 Range/Units 14:09 06:26 06:26 RBC 2.88 L (3.80-5.40) m/uL Hgb 8.9 L D (11.4-16.0) gm/dL Hct 27.6 L (34.0-46.0) % RDW 18.6 H (11.5-15.5) % Sodium 132 L (137-145) mmol/L BUN 24 H (7-17) mg/dL Creatinine 1.15 H (0.52-1.04) mg/dL Glucose 102 H (74-99) mg/dL Calcium 8.2 L (8.4-10.2) mg/dL Creatine Kinase 1357 H* (30-135) U/L Crossmatch See Detail Microbiology - Last 24 Hours (Table) 07/26/24 14:24 Blood Culture - Preliminary Blood Assessment and Plan (1) Infection of amputation stump, right lower extremity Current Visit: Yes Status: Acute Code(s): T87.43 - INFECTION OF AMPUTATION STUMP, RIGHT LOWER EXTREMITY SNOMED Code(s): 34397583898925335 Plan: 1patient with history of PAD in this patient who is status post right ytegz-fui-vfdd amputation few weeks ago at [facility] subsequently admitted to that facility and did have infected stump status post debridement now with evidence of partial dehiscence of the wound likely from infection and secondary cellulitis. 2patient did havelocal culture growing yeast possible colonization blood culture so far negative 3local wound care with Aquacel silver over packing of the wound change daily to 48 hours depending upon the drainage 4patient will benefit from vascular surgery valuation of the right AKA stump as she will benefit from debridement and possible deep culture this was discussed with the surgical [employer]LECT[employer] ENGINEERING [employer] as well as the nursing staff. 5as patient having some mental status changes family has concern could be related to cefepime we will go ahead and discontinue cefepime Dictation was produced using [employer] dictation software. please excuse any grammatical, word or spelling errors.
--- NOTE | 2024-07-30 12:48 | P.PN ---
Subjective Progress Note Date: 07/30/24 Principal diagnosis: Acute critical limb ischemia, unsalvageable Patient is seen and examined today as a follow-up. She is postop for left oxcwz-nuh-fwmv amputation. Surgical site is well-approximated with juju. She has been afebrile. No leukocytosis. Nursing is reporting right AKA surgical site to have some notable drainage. The surgical site was done outside of this hospital at [facility] and apparently patient had her initial right imckw-qxl-snmg amputation done at [facility] which the surgical site was reportedly infected and had to go back and have further up amputation. Family is at the bedside and states that they did not have any follow-up with the surgeon. Patient does have some pain at both surgical sites. Objective - Vital Signs Vital signs: Vital Signs Temp 97.7 F 07/30/24 08:15 Pulse 88 07/30/24 11:43 Resp 17 07/30/24 08:15 BP 110/53 07/30/24 08:15 Pulse Ox 99 07/30/24 08:15 FiO2 Intake & Output 07/29/24 07/30/24 07/30/24 18:59 06:59 18:59 Intake Total 2350 308 138 Output Total 400 300 Balance 1950 8 138 Weight 43.8 kg Intake: IV 30 20 Invasive Line 3 20 10 Invasive Line 4 10 10 Oral 2350 118 Blood Product 0 278 Rc Pheresis 2 As3 Unit 0 278 [id number] Output: Urine 400 300 Other: Voiding Method External Catheter External Catheter External Catheter # Voids 1 # Bowel Movements 1 - Exam General appearance: The patient is alert, oriented to self and place, appears in no acute distress. HET: Head is normocephalic and atraumatic. Neck: Supple. Abdomen: Soft, nondistended. Extremities: Bilateral jppay-rjy-wpyu amputations. Right with dressing in place with drainage. Incision approximated with loose sutures, slough tissue noted with serosanguineous drainage, no foul odor or surrounding erythema. Left surgical site approximated with juju, no drainage, surrounding tissue warm and pink. Neurological: Confused, oriented to self and place. - Labs CBC & Chem 7: 07/30/24 06:26 07/30/24 06:26 Labs: Abnormal Lab Results - Last 24 Hours (Table) 07/29/24 07/30/24 07/30/24 Range/Units 14:09 06:26 06:26 RBC 2.88 L (3.80-5.40) m/uL Hgb 8.9 L D (11.4-16.0) gm/dL Hct 27.6 L (34.0-46.0) % RDW 18.6 H (11.5-15.5) % Sodium 132 L (137-145) mmol/L BUN 24 H (7-17) mg/dL Creatinine 1.15 H (0.52-1.04) mg/dL Glucose 102 H (74-99) mg/dL Calcium 8.2 L (8.4-10.2) mg/dL Creatine Kinase 1357 H* (30-135) U/L Crossmatch See Detail Microbiology - Last 24 Hours (Table) 07/26/24 14:24 Blood Culture - Preliminary Blood Assessment and Plan Assessment: 1. Acute critical limb ischemia [place] classification 3 unsalvageable status post left ajnma-jsg-vlii amputation 2. Recent history of right iysjt-ucl-dyzh amputation, with drainage 3. History of severe peripheral arterial disease with previous revascularization 4. History of coronary artery disease with previous stents 5. Hypertension 6. History of ischemic cardiomyopathy 7. Chronic tobacco abuse 8. History of CVA 9. Anemia, chronic may be some component of acute blood loss secondary to surg kings Plan: 1. Consult physical and Occupational Therapy 2. Consult case management for Comfort prosthetics, stump baker bench and rigid dressing comfort prosthetics to follow with patient on Saturday at [facility]. 3. Dressing change as needed to left AKA, may apply Adaptic and Kerlix. Recommend Momo wrap until stump baker bench applied. Patient refusing dressing to left AKA 4. Recommend smoking cessation 5. Continue Lyrica 6. There is no indication for any vascular surgical intervention. Will consult wound care for further evaluation of right AKA. Patient will need formal wound care as an outpatient. Thank you for this consultation, patient is cleared from vascular surgery for discharge once seen by wound care. The impression and plan of care has been dictated as directed. Dr. Infante I performed a history and examination of this patient, discussed the same with the dictator. I agree with the dictator's note ,documented as a scribe. Any additional findings or plans will be noted.
--- NOTE | 2024-07-30 13:54 | CT ---
EXAMINATION TYPE: CT brain wo con CT DLP: 1059.4 mGycm, Automated exposure control for dose reduction was used. DATE OF EXAM: 07/30/2024 1:49 PM COMPARISON: Prior CT Brain from 12/27/2017 . CLINICAL INDICATION:Female, 69 years old with history of stroke/ change in mentation, Altered mental status TECHNIQUE: Brain: Multiple axial CT images of the brain were obtained without IV contrast. . Coronal and sagitta l reformats reviewed. FINDINGS: Brain: Extra-axial spaces: No abnormal extra-axial fluid collections. Ventricular system: Within normal limits Cerebral parenchyma: Mild age-appropriate cerebral volume loss. No acute intraparenchymal hemorrhage or mass effect. The cuello-white junction is well differentiated. Scattered hypoattenuating areas are seen within the periventricular white matter. Cerebellum: Unremarkable. Mass effect: No evidence of midline shift. Intracranial vasculature: Atherosclerotic calcifications of the intracranial vessels. Soft tissues: Normal. Calvarium/osseous structures: No depressed skull fracture. Paranasal sinuses and mastoid air cells: Clear Visualized orbits: Orbital contents are intact. IMPRESSION: 1. No acute intracranial process. 2. Nonspecific white matter changes, likely secondary to chronic small vessel ischemic disease. [facility], , 07/30/2024 1:51 PM
--- NOTE | 2024-07-30 14:04 | P.CONS ---
History of Present Illness - Reason for Consult Consult date: 07/30/24 wound care - History of Present Illness This is a 69-year-old patient who had a [id number]-[id number] amputation at [facility] last week. Patient has sutures in place however the incision line is not well- approximated significant amount of slough and nonviable tissue present. The lateral portion of the ulceration is open with minimal granulation slough and nonviable tissue present. Patient is significantly confused only able to answer questions of self. Review Of Systems: Constitutional: No fever, no chills, no night sweats. No weight change. No weakness, fatigue or lethargy. No daytime sleepiness. Integumentary:reports wounds, no lesions. No rash or pruritus. No unusual bruising. No change in hair or nails. Physical exam: General Appearance: Alert, cooperative, no distress, appears stated age. Skin: See HPI all other Skin color, texture, tugor normal, no rashes or lesions. Neurologic: Alert oriented x3 Assessment: 1. Nonhealing ulceration with muscle involvement without necrosis 2. Dehiscence of surgical wound 3. Diabetes with skin ulceration Plan: 1.Apply Santyl, saline moist gauze, absorptive silver for excessive drainage. Wrap with rolled gauze and Momo wrap for compression. Patient would benefit from [facility]. We happy to see her upon discharge. Thank you for the consultation any questions please contact the wound care center DNP note has been reviewed and discussed with Dr. Parisi and the impression and plan of care has been directed as dictated. Past Medical History Past Medical History: Coronary Artery Disease (CAD), CVA/TIA, GERD/Reflux, Hyperlipidemia, Hypertension, Myocardial Infarction ([place]), Osteoarthritis (OA), Skin Disorder Additional Past Medical History / Comment(s): hx migraines, TIA- FRACTURED RIGHT ANKLE 1/2 CAST, right AKA, left lower extremity revascularization and stenting Last Myocardial Infarction Date:: History of Any Multi-Drug Resistant Organisms: MRSA Year Discovered:: 02/21/18 MDRO Source:: NECK Past Surgical History: Heart Catheterization With Stent, Orthopedic Surgery, Tubal Ligation Additional Past Surgical History / Comment(s): left ankle surgery fracture- pins and plate inserted. 2 cardiac stents, neck surgery, left lower extremity revascularization and stenting and right AKA Past Anesthesia/Blood Transfusion Reactions: No Reported Reaction Date of Last Stent Placement:: 09/2016 Past Psychological History: No Psychological Hx Reported Smoking Status: Current every day smoker Past Alcohol Use History: Occasional Additional Past Alcohol Use History / Comment(s): started smoking at age 16(1971) and quit 2017, smoked 2 ppd.STARTED SMOKING 2019 SMOKING 1/2 PPD quit smoking a few weeks ago (08/2021) Past Drug Use History: None Reported Additional Drug Use History / Comment(s): OCCASIONAL USE OF MARIJUANA - Past Family History Mother Family Medical History: Hypertension, Myocardial Infarction ([place]) Sister(s) Family Medical History: CVA/TIA, Hypertension, Myocardial Infarction ([place]) Father Family Medical History: Cancer Additional Family Medical History / Comment(s): colon CA Brother(s) Family Medical History: Coronary Artery Disease (CAD), CVA/TIA Additional Family Medical History / Comment(s): CABG Medications and Allergies Home Medications Medication Instructions Recorded Confirmed Type Aspirin 81 mg PO DAILY #90 tab 11/07/23 07/24/24 Rx Nicotine 14Mg/24Hr Patch [Habitrol] 1 patch TRANSDERM DAILY #42 patch 02/20/24 07/24/24 Rx Spironolactone [Aldactone] 25 mg PO DAILY #30 tab 02/24/24 07/24/24 Rx Acetaminophen [Tylenol 8 Hour] 650 mg PO Q6H PRN 07/24/24 07/24/24 History Atorvastatin [Lipitor] 80 mg PO HS 07/24/24 07/24/24 History Budesonide [Pulmicort] 0.5 mg INHALATION RT-BID 07/24/24 07/24/24 History Budesonide/Formoterol Fumarate 2 puff INHALATION RT-BID 07/24/24 07/24/24 History [Symbicort 80-4.5 Mcg Inhaler] Dapagliflozin Propanediol [Farxiga] 5 mg PO DAILY 07/24/24 07/24/24 History Furosemide [Lasix] 40 mg PO DAILY@0700 07/24/24 07/24/24 History Metoprolol Succinate (ER) [Toprol 25 mg PO DAILY 07/24/24 07/24/24 History Xl] Mirtazapine [Remeron Soluspan] 15 mg PO HS 07/24/24 07/24/24 History Mupirocin 2% Oint [Bactroban 2% 1 applic TOPICAL MOWEFR@2100 07/24/24 07/24/24 History Oint] Naloxone HCl 0.4 mg IM DIRECTED PRN 07/24/24 07/24/24 History Naloxone HCl [Narcan] 4 mg NASAL DIRECTED PRN 07/24/24 07/24/24 History Omeprazole Magnesium [PriLOSEC OTC] 40 mg PO DAILY 07/24/24 07/24/24 History Pregabalin [Lyrica] 50 mg PO TID@0700,1300,1900 07/24/24 07/24/24 History Sacubitril/Valsartan [Entresto 24 1 tab PO BID@0700,1600 07/24/24 07/24/24 History mg-26 mg Tablet] Sennosides [Senokot] 8.6 mg PO BID@0700,1600 07/24/24 07/24/24 History Sulfamethox-Tmp 800-160Mg [Bactrim 1 tab PO BID@0700,1600 07/24/24 07/24/24 History DS 800-160 mg] Ticagrelor [Brilinta] 90 mg PO BID@0700,1600 07/24/24 07/24/24 History Tiotropium 2.5 Mcg/Puff [Spiriva 2 puff INHALATION RT-DAILY 07/24/24 07/24/24 History Respimat 2.5 Mcg] methocarbamoL [Robaxin-750] 750 mg PO QID 07/24/24 07/24/24 History oxyCODONE HCL [oxyCODONE HCL (IR)] 5 mg PO Q4H PRN 07/24/24 07/24/24 History polyethylene glycoL 3350 [Miralax] 17 gm PO DAILY 07/24/24 07/24/24 History Allergies Allergy/AdvReac Type Severity Reaction Status Date / Time No Known Allergies Allergy Verified 07/24/24 18:18 Physical Exam Vitals: Vital Signs Temp Pulse Pulse Pulse Resp BP BP 07/30/24 11:43 88 07/30/24 11:33 90 07/30/24 08:47 88 07/30/24 08:35 92 07/30/24 08:15 97.7 F 79 17 110/53 07/30/24 08:00 79 17 07/30/24 04:50 98.1 F 74 15 101/49 07/29/24 23:00 98.7 F 62 18 98/56 07/29/24 20:03 98 F 61 18 106/54 07/29/24 17:05 98.5 F 87 16 95/51 07/29/24 16:45 98 F 79 18 92/45 Pulse Ox 07/30/24 11:43 07/30/24 11:33 07/30/24 08:47 07/30/24 08:35 07/30/24 08:15 99 07/30/24 08:00 07/30/24 04:50 95 07/29/24 23:00 93 L 07/29/24 20:03 07/29/24 17:05 100 07/29/24 16:45 99 Intake and Output 07/29/24 07/30/24 07/30/24 22:59 06:59 14:59 Intake Total 738 20 138 Output Total 300 Balance 738 -280 138 Intake: IV 10 20 20 Invasive Line 3 10 10 10 Invasive Line 4 10 10 Oral 450 118 Blood Product 278 Rc Pheresis 2 As3 Unit 278 [id number] Output: Urine 300 Other: Voiding Method External Catheter External Catheter External Catheter # Voids 1 Weight 43.8 kg Results CBC & Chem 7: 07/30/24 06:26 07/30/24 06:26 Labs: Abnormal Lab Results - Last 24 Hours (Table) 07/29/24 07/30/24 07/30/24 Range/Units 14:09 06:26 06:26 RBC 2.88 L (3.80-5.40) m/uL Hgb 8.9 L D (11.4-16.0) gm/dL Hct 27.6 L (34.0-46.0) % RDW 18.6 H (11.5-15.5) % Sodium 132 L (137-145) mmol/L BUN 24 H (7-17) mg/dL Creatinine 1.15 H (0.52-1.04) mg/dL Glucose 102 H (74-99) mg/dL Calcium 8.2 L (8.4-10.2) mg/dL Creatine Kinase 1357 H* (30-135) U/L Crossmatch See Detail Microbiology - Last 24 Hours (Table) 07/26/24 14:24 Blood Culture - Preliminary Blood Assessment and Plan (1) 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 without evidence of necrosis Current Visit: Yes Status: Acute Code(s): L97.115 - NON-PRS CHR ULCER OF R THIGH WITH MSL INVL W/O EVD OF NECR SNOMED Code(s): 73038766756814825 (2) Dehiscence of amputation stump of right lower extremity Current Visit: Yes Status: Acute Code(s): T87.81 - DEHISCENCE OF AMPUTATION STUMP SNOMED Code(s): 70657584182054306 (3) Type 2 diabetes mellitus with other skin ulcer Current Visit: Yes Status: Acute Code(s): E11.622 - TYPE 2 DIABETES MELLITUS WITH OTHER SKIN ULCER; L98.499 - NON-PRESSURE CHRONIC ULCER OF SKIN OF SITES W UNSP SEVERITY SNOMED Code(s): 447102107808353
[2024-07-30] MEDS: HEPARIN SODIUM,PORCINE 5,000 UNIT/ML 1 ML VIAL SQ SCH (15:03)
--- NOTE | 2024-07-30 17:20 | P.CNNES ---
History of Present Illness Consult date: 07/30/24 Requesting physician: Antionette Bridges Reason for Consult: change in mentation History of Present Illness: This is a 69-year-old woman who presents to the emergency department on 07/24/2024 for pain in her left leg. Neurology is consulted for altered mental status. It seems that the patient has history of multiple medical issues including chronic kidney insufficiency, cardiomyopathy, above the right knee amputation, peripheral artery disease, stroke TIA. It seems that she was transferred from [facility] because of decreased circulation in the left leg. Her CT angiography shows obstruction in the left superficial femoral artery. Seems to the patient had acute critical limb ischemia of the left lower extremity and had on 07/25/2024 left above-knee amputation. The patient has confusion during this hospital visit and the nurse states that she is using profanity. Upon seeing the patient she upset and stated "what do you want" then did not give much history or verbalized. Some of the workup during this hospital visit consisted of: AST of 213 slightly trending down to 185 ALT of 150 and it is down to 92. CK level on initial presentation is 5148 and currently at 1357. Creatinine on initial presentation was normal and got as high as 1.21 and currently is 1.15 Sodium as low as 135 and is trending up from a few days ago. CT of the head is unremarkable for any acute subacute stroke. Personally reviewed the CT of the head. Limited 2D echo is reported as severe impaired left ventricular systolic functio n with global hypokinesis. Review of Systems Limited. Past Medical History Past Medical History: Coronary Artery Disease (CAD), CVA/TIA, GERD/Reflux, Hyperlipidemia, Hypertension, Myocardial Infarction ([place]), Osteoarthritis (OA), Skin Disorder Additional Past Medical History / Comment(s): hx migraines, TIA- FRACTURED RIGHT ANKLE 1/2 CAST, right AKA, left lower extremity revascularization and stenting Last Myocardial Infarction Date:: History of Any Multi-Drug Resistant Organisms: MRSA Date of last positivie culture/infection: 02/21/18 MDRO Source:: NECK Past Surgical History: Heart Catheterization With Stent, Orthopedic Surgery, Tubal Ligation Additional Past Surgical History / Comment(s): left ankle surgery fracture- pins and plate inserted. 2 cardiac stents, neck surgery, left lower extremity revascularization and stenting and right AKA Past Anesthesia/Blood Transfusion Reactions: No Reported Reaction Date of Last Stent Placement:: 09/2016 Past Psychological History: No Psychological Hx Reported Smoking Status: Current every day smoker Past Alcohol Use History: Occasional Additional Past Alcohol Use History / Comment(s): started smoking at age 16(1971) and quit 2017, smoked 2 ppd.STARTED SMOKING 2019 SMOKING 1/2 PPD quit smoking a few weeks ago (08/2021) Past Drug Use History: None Reported Additional Drug Use History / Comment(s): OCCASIONAL USE OF MARIJUANA - Past Family History Mother Family Medical History: Hypertension, Myocardial Infarction ([place]) Sister(s) Family Medical History: CVA/TIA, Hypertension, Myocardial Infarction ([place]) Father Family Medical History: Cancer Additional Family Medical History / Comment(s): colon CA Brother(s) Family Medical History: Coronary Artery Disease (CAD), CVA/TIA Additional Family Medical History / Comment(s): CABG Medications and Allergies Home Medications Medication Instructions Recorded Confirmed Type Aspirin 81 mg PO DAILY #90 tab 11/07/23 07/24/24 Rx Nicotine 14Mg/24Hr Patch [Habitrol] 1 patch TRANSDERM DAILY #42 patch 02/20/24 07/24/24 Rx Spironolactone [Aldactone] 25 mg PO DAILY #30 tab 02/24/24 07/24/24 Rx Acetaminophen [Tylenol 8 Hour] 650 mg PO Q6H PRN 07/24/24 07/24/24 History Atorvastatin [Lipitor] 80 mg PO HS 07/24/24 07/24/24 History Budesonide [Pulmicort] 0.5 mg INHALATION RT-BID 07/24/24 07/24/24 History Budesonide/Formoterol Fumarate 2 puff INHALATION RT-BID 07/24/24 07/24/24 History [Symbicort 80-4.5 Mcg Inhaler] Dapagliflozin Propanediol [Farxiga] 5 mg PO DAILY 07/24/24 07/24/24 History Furosemide [Lasix] 40 mg PO DAILY@0700 07/24/24 07/24/24 History Metoprolol Succinate (ER) [Toprol 25 mg PO DAILY 07/24/24 07/24/24 History Xl] Mirtazapine [Remeron Soluspan] 15 mg PO HS 07/24/24 07/24/24 History Mupirocin 2% Oint [Bactroban 2% 1 applic TOPICAL MOWEFR@2100 07/24/24 07/24/24 History Oint] Naloxone HCl 0.4 mg IM DIRECTED PRN 07/24/24 07/24/24 History Naloxone HCl [Narcan] 4 mg NASAL DIRECTED PRN 07/24/24 07/24/24 History Omeprazole Magnesium [PriLOSEC OTC] 40 mg PO DAILY 07/24/24 07/24/24 History Pregabalin [Lyrica] 50 mg PO TID@0700,1300,1900 07/24/24 07/24/24 History Sacubitril/Valsartan [Entresto 24 1 tab PO BID@0700,1600 07/24/24 07/24/24 History mg-26 mg Tablet] Sennosides [Senokot] 8.6 mg PO BID@0700,1600 07/24/24 07/24/24 History Sulfamethox-Tmp 800-160Mg [Bactrim 1 tab PO BID@0700,1600 07/24/24 07/24/24 History DS 800-160 mg] Ticagrelor [Brilinta] 90 mg PO BID@0700,1600 07/24/24 07/24/24 History Tiotropium 2.5 Mcg/Puff [Spiriva 2 puff INHALATION RT-DAILY 07/24/24 07/24/24 History Respimat 2.5 Mcg] methocarbamoL [Robaxin-750] 750 mg PO QID 07/24/24 07/24/24 History oxyCODONE HCL [oxyCODONE HCL (IR)] 5 mg PO Q4H PRN 07/24/24 07/24/24 History polyethylene glycoL 3350 [Miralax] 17 gm PO DAILY 07/24/24 07/24/24 History Allergies Allergy/AdvReac Type Severity Reaction Status Date / Time No Known Allergies Allergy Verified 07/24/24 18:18 Physical Examination - Vital Signs Vital Signs: Vital Signs Temp Pulse Pulse Pulse Resp BP BP 07/30/24 15:49 98.5 F 75 18 97/51 07/30/24 15:38 86 07/30/24 15:29 84 07/30/24 11:43 88 07/30/24 11:33 90 07/30/24 08:47 88 07/30/24 08:35 92 07/30/24 08:15 97.7 F 79 17 110/53 07/30/24 08:00 79 17 07/30/24 04:50 98.1 F 74 15 101/49 07/29/24 23:00 98.7 F 62 18 98/56 07/29/24 20:03 98 F 61 18 106/54 Pulse Ox 07/30/24 15:49 98 07/30/24 15:38 07/30/24 15:29 07/30/24 11:43 07/30/24 11:33 07/30/24 08:47 07/30/24 08:35 07/30/24 08:15 99 07/30/24 08:00 07/30/24 04:50 95 07/29/24 23:00 93 L 07/29/24 20:03 Intake and Output 07/30/24 07/30/24 07/30/24 06:59 14:59 22:59 Intake Total 20 158 Output Total 300 Balance -280 158 Intake: IV 20 40 Invasive Line 3 10 20 Invasive Line 4 10 20 Oral 118 Output: Urine 300 Other: Voiding Method External Catheter External Catheter # Voids 1 1 Weight 43.8 kg General: Lying in bed and does not appear in acute distress. Neuro: Very limited because of her cooperation and was upset upon trying to examine her. Is not verbalizing or following command. No facial weakness from limitation of examination. Has above knee amputation. Results - Laboratory Findings CBC and BMP: 07/30/24 06:26 07/30/24 06:26 Abnormal Lab Findings: Abnormal Labs 07/24/24 07/24/24 07/24/24 15:44 15:44 15:44 RBC 3.07 L Hgb 8.9 L Hct 28.6 L MCHC RDW 19.5 H Neutrophils # Lymphocytes # APTT 20.3 L Sodium Carbon Dioxide BUN 21 H Creatinine Glucose 109 H Calcium 8.3 L Delta Bilirubin AST 213 H ALT 150 H Creatine Kinase Total Protein Albumin 3.3 L Crossmatch 07/24/24 07/24/24 07/25/24 15:44 21:45 07:11 RBC 2.97 L Hgb 8.6 L Hct 28.5 L MCHC 30.1 L RDW 19.8 H Neutrophils # Lymphocytes # APTT 63.7 H Sodium Carbon Dioxide BUN Creatinine Glucose Calcium Delta Bilirubin AST ALT Creatine Kinase 5148 H* Total Protein Albumin Crossmatch 07/25/24 07/25/24 07/27/24 07:11 07:11 06:39 RBC 2.74 L Hgb 8.1 L Hct 26.7 L MCHC 30.4 L RDW 19.9 H Neutrophils # Lymphocytes # 0.9 L APTT 74.1 H Sodium 135 L Carbon Dioxide BUN Creatinine Glucose 103 H Calcium 8.0 L Delta Bilirubin AST 202 H ALT 136 H Creatine Kinase Total Protein Albumin 3.1 L Crossmatch 07/27/24 07/28/24 07/28/24 06:39 08:56 08:56 RBC 2.81 L Hgb 8.3 L Hct 26.9 L MCHC 30.7 L RDW 20.2 H Neutrophils # 7.9 H Lymphocytes # APTT Sodium 131 L 136 L Carbon Dioxide 21 L BUN 19 H Creatinine Glucose 105 H 109 H Calcium 7.9 L Delta Bilirubin 0.4 H AST 185 H ALT 92 H Creatine Kinase 5182 H* Total Protein 6.1 L Albumin 2.9 L Crossmatch 07/29/24 07/29/24 07/29/24 06:18 06:18 14:09 RBC 2.42 L Hgb 7.1 L Hct 23.0 L MCHC 30.8 L RDW 20.2 H Neutrophils # Lymphocytes # APTT Sodium 133 L Carbon Dioxide 20 L BUN 21 H Creatinine 1.21 H Glucose Calcium 8.2 L Delta Bilirubin AST ALT Creatine Kinase 1534 H* Total Protein Albumin Crossmatch See Detail 07/30/24 07/30/24 06:26 06:26 RBC 2.88 L Hgb 8.9 L D Hct 27.6 L MCHC RDW 18.6 H Neutrophils # Lymphocytes # APTT Sodium 132 L Carbon Dioxide BUN 24 H Creatinine 1.15 H Glucose 102 H Calcium 8.2 L Delta Bilirubin AST ALT Creatine Kinase 1357 H* Total Protein Albumin Crossmatch Assessment and Plan Assessment: This is a 69 y/o woman who presents to the emergency department on 07/24/2024 for pain in her left leg. She was found to have acute critical limb ischemia in the left lower extremity and had above left knee amputation on 07/25/2024. She has elevated ammonia, mildly low sodium, acute kidney injury. Neurology is consulted for altered mentation. Altered Mental status seems due to metabolic encephalopathy and hepatic encephalpathy. CT head is unremarkable. Acute critical limb ischemia of the left lower extremity status post above the left knee amputation on 07/25/2024. Tranaminitis Mild hyponatremia Acute kidney injury Rhabdomyolysis likely due to her limb ischemia--trending down History of TIA/stroke per medical record History of cardiomyopathy History of above right knee amputation Plan: Ordered ammonia level, TSH, vitamin B12, folate. Ordered routine EEG. Patient is on aspirin 81 mg and Brilinta 90 mg twice daily. Patient is on thiamine 100 mg daily Infectious disease team is on board Vascular surgery is on board Will defer the rest of the medical management to primary and other special Plan discussed with the patient's nurse. Thank you for the consultation. Time with Patient: Greater than 30
[2024-07-30] MEDS: THIAMINE 100 MG TAB PO SCH (18:02)
[2024-07-30] MEDS: COLLAGENASE 250 UNIT/GM OINTMENT 30 GM TUBE TOPICAL SCH (18:46)
[2024-07-30 19:40] LABS: T4, Free (Free Thyroxine) 1.57 ng/dL (0.78-2.19)
[2024-07-31] MEDS: FUROSEMIDE 20 MG TAB PO SCH (06:38)
[2024-07-31 08:09] LABS: Anisocytosis Slight; Basophils % (A) 0 %; Eosinophils # (A) 0.3 k/uL (0-0.7); Eosinophils % (A) 4 %; HCT 28.1 % (34.0-46.0); HGB 8.8 gm/dL (11.4-16.0); Hypochromasia Moderate; Lymphocytes # (A) 1.2 k/uL (1.0-4.8); Lymphocytes % (A) 17 %; MCH 30.1 pg (25.0-35.0); MCHC 31.4 g/dL (31.0-37.0); MCV 95.9 fL (80.0-100.0); Macrocytosis Slight; Monocytes # (A) 0.3 k/uL (0-1.0); Monocytes % (A) 4 %; Neutrophils % (A) 73 %; Platelet Count 263 k/uL (150-450); RBC 2.93 m/uL (3.80-5.40); RDW 18.8 % (11.5-15.5)
[2024-07-31 08:33] LABS: ALT 63 U/L (4-34); AST 78 U/L (14-36); African American GFR (CKD) 61 (>60 ml/min/1.73 sqM); Albumin 2.7 g/dL (3.5-5.0); Alkaline Phosphatase 95 U/L (38-126); Anion Gap 7 mmol/L; Blood Urea Nitrogen 24 mg/dL (7-17); Calcium 8.4 mg/dL (8.4-10.2); Carbon Dioxide 24 mmol/L (22-30); Chloride 107 mmol/L (98-107); Creatine Kinase 868 U/L (30-135); Glucose 126 mg/dL (74-99); Non-African American GFR(CKD) 53 (>60 ml/min/1.73 sqM); Potassium 3.3 mmol/L (3.5-5.1); Sodium 138 mmol/L (137-145); Total Bilirubin 0.6 mg/dL (0.2-1.3)
--- NOTE | 2024-07-31 08:50 | P.PN ---
Subjective Progress Note Date: 07/31/24 Principal diagnosis: Acute critical limb ischemia, unsalvageable Patient is seen and examined today as a follow-up. She is sitting up in bed with her eyes closed. She is without any complaints at this time. No acute changes through the night. She remains afebrile. She was seen by wound care yesterday with local wound care orders given. With recommendations for outpatient advance wound care. Plan is for discharge to [facility] today. Objective - Vital Signs Vital signs: Vital Signs Temp 98.1 F 07/31/24 03:52 Pulse 79 07/31/24 03:52 Resp 16 07/31/24 03:52 BP 101/64 07/31/24 03:52 Pulse Ox 100 07/31/24 03:52 FiO2 Intake & Output 07/30/24 07/31/24 07/31/24 18:59 06:59 18:59 Intake Total 158 560 Output Total 200 450 Balance -42 110 Weight 43.8 kg Intake: IV 40 20 Invasive Line 3 20 10 Invasive Line 4 20 10 Oral 118 540 Output: Urine 200 450 Other: Voiding Method External Catheter External Catheter # Voids 1 - Exam General appearance: The patient is alert, oriented to self and place, appears in no acute distress. HET: Head is normocephalic and atraumatic. Neck: Supple. Abdomen: Soft, nondistended. Extremities: Bilateral [id number] amputations. Right with dressing in place.. Left surgical site approximated with juju, no drainage, surrounding tissue warm, dry and pink. Neurological alert and oriented - Labs CBC & Chem 7: 07/31/24 07:44 07/31/24 07:44 Labs: Abnormal Lab Results - Last 24 Hours (Table) 07/30/24 Range/Units 17:33 TSH 6.470 H (0.465-4.680) mIU/L Microbiology - Last 24 Hours (Table) 07/26/24 13:00 Anaerobic Culture - Final Knee - Right Assessment and Plan Assessment: 1. Acute critical limb ischemia Nursery classification 3 unsalvageable status post left girkg-[id number]-cosy amputation 2. Recent history of right qjoep-ijp-vuno amputation with dehiscence and drainage 3. History of severe peripheral arterial disease with previous revascularization 4. History of coronary artery disease with previous stents 5. Hypertension 6. History of ischemic cardiomyopathy 7. Chronic tobacco abuse 8. History of CVA 9. Anemia, chronic may be some component of acute blood loss secondary to surgery Plan: 1. Consult physical and Occupational Therapy 2. Consult case management for Comfort prosthetics, stump chemical processing technician and rigid dressing comfort prosthetics to follow with patient on Saturday at [facility]. 3. Dressing change as needed to left AKA, may apply Adaptic and Kerlix. Recommend Momo wrap until stump chemical processing technician applied. Patient refusing dressing to left AKA 4. Recommend smoking cessation 5. Continue Lyrica 6. Wound care consulted. Continue with local wound care per their recommendations. Recommend outpatient advance wound care. 6. There is no indication for any vascular surgical intervention. Thank you for this consultation, patient is cleared from vascular surgery for discharge. We will sign off at this time. The impression and plan of care has been dictated as directed. Dr. Infante I performed a history and examination of this patient, discussed the same with the dictator. I agree with the dictator's note ,documented as a scribe. Any additional findings or plans will be noted.
--- NOTE | 2024-07-31 09:08 | PN ---
PROGRESS NOTE DATE OF SERVICE: 07/30/2024 SUBJECTIVE: This is a 69-year-old woman with a past medical history of multiple complex medical issues, who was admitted with acute ischemia of the left lower extremity. The patient underwent left above-knee amputation. The patient has some tense areas of the skin on that leg. On the right leg, the patient had drainage also. The patient is also confused. Family is concerned about the confusion. The patient had previous history of MRSA. The patient is on vancomycin. The CT brain showed nonspecific white matter changes. No evidence of stroke. The patient had rhabdomyolysis also. PAST MEDICAL HISTORY: Reviewed. REVIEW OF SYSTEMS: A 14-point review of systems is negative except as mentioned earlier. CURRENT MEDICATIONS: Reviewed include, 1. Tylenol. 2. Pulmicort. PHYSICAL EXAMINATION: VITAL SIGNS: Pulse is 79, blood pressure 120/53, respirations 17. CHEST: Clear to auscultation. CARDIOVASCULAR: S1, S2. ABDOMEN: Soft. LEGS: Status post left above-knee amputation. NERVOUS SYSTEM: Diffusely weak and mild confusion. LABORATORY DATA: Hemoglobin 8.9, which is improved, and creatine kinase is 1357. ASSESSMENT: 1. Acute ischemia of the left lower extremity with obstruction of the left SFA, status post left above-knee amputation. 2. Possible confusion, acute metabolic encephalopathy. 3. Anemia, multifactorial, symptomatic, status post transfusion. 4. Acute rhabdomyolysis, multifactorial. 5. Right pleural effusion and pulmonary vascular congestion. 6. Right stump infection. 7. History of methicillin-resistant Staphylococcus aureus. 8. Transaminitis. 9. Cardiomyopathy history. 10.Chronic kidney disease. 11.Multiple complex medical issues. RECOMMENDATIONS AND DISCUSSION: I recommend to continue current medications, continue symptomatic treatment. Otherwise, at this time, I recommend continue monitoring. Adjust the pain medications and repeat labs. Monitor creatine kinase closely. Most recent chest x-ray done 2 days ago showed right pleural effusion. I would recommend repeat chest x-ray in the morning. Discussed with Dr. Garza about the antibiotic plan, otherwise closely follow with Vascular Surgery. I would also recommend Neurology consultation for change in mental status and continue to monitor. Prognosis guarded. Further recommendations to follow. MMODL / IJN: [id number] /
[2024-07-31] MEDS: MULTIVITAMINS, THERA 1 EACH TAB PO SCH (09:30)
[2024-07-31] MEDS: FOLIC ACID 1 MG TAB PO SCH (09:30)
--- NOTE | 2024-07-31 12:41 | P.PN ---
Subjective Progress Note Date: 07/31/24 Principal diagnosis: Reason for follow-up is right AKA stump infection Patient is a 69-year-old female with a past medical history significant for hypertension hyperlipidemia coronary artery disease osteoarthritis reflux and also with a history of peripheral arterial disease in this patient who is status post right qeqjp-znp-kthh amputation that was done at [facility] few weeks ago with admission to this facility with critical left limb ischemia status post left jawut-tts-eblm amputation patient noticed to have dehiscence of the right AKA stump prompting this consultation. On today's evaluation that is 07/31/2024,the patient remains to be afebrile she is breathing comfortably on room air and does not seem to be any distressed no vomiting diarrhea any change reported by the nursing staff patient was sleepy and adequate historian today. Patient white count 7.0, creatinine is 1.07 Objective - Vital Signs Vital signs: Vital Signs Temp 97.8 F 07/31/24 09:25 Pulse 78 07/31/24 09:25 Resp 16 07/31/24 09:25 BP 128/57 07/31/24 09:25 Pulse Ox 99 07/31/24 09:25 FiO2 Intake & Output 07/30/24 07/31/24 07/31/24 18:59 06:59 18:59 Intake Total 158 560 0 Output Total 200 450 800 Balance -42 110 -800 Weight 43.8 kg Intake: IV 40 20 Invasive Line 3 20 10 Invasive Line 4 20 10 Oral 118 540 0 Output: Urine 200 450 800 Other: Voiding Method External Catheter External Catheter External Catheter # Voids 1 - Exam GENERAL DESCRIPTION: An elderly female lying in bed in no distress RESPIRATORY SYSTEM: Unlabored breathing , decreased breath sounds at bases HEART: S1 S2 regular rate and rhythm , ABDOMEN: Soft , no tenderness EXTREMITIES: Right AKA stump did have some drainage no significant redness - Labs CBC & Chem 7: 07/31/24 07:44 07/31/24 07:44 Labs: Abnormal Lab Results - Last 24 Hours (Table) 07/30/24 07/31/24 07/31/24 Range/Units 17:33 07:44 07:44 RBC 2.93 L (3.80-5.40) m/uL Hgb 8.8 L (11.4-16.0) gm/dL Hct 28.1 L (34.0-46.0) % RDW 18.8 H (11.5-15.5) % Potassium 3.3 L (3.5-5.1) mmol/L BUN 24 H (7-17) mg/dL Creatinine 1.07 H (0.52-1.04) mg/dL Glucose 126 H (74-99) mg/dL AST 78 H (14-36) U/L ALT 63 H (4-34) U/L Creatine Kinase 868 H (30-135) U/L Total Protein 6.0 L (6.3-8.2) g/dL Albumin 2.7 L (3.5-5.0) g/dL TSH 6.470 H (0.465-4.680) mIU/L Microbiology - Last 24 Hours (Table) 07/26/24 13:00 Anaerobic Culture - Final Knee - Right Assessment and Plan (1) Infection of amputation stump, right lower extremity Current Visit: Yes Status: Acute Code(s): T87.43 - INFECTION OF AMPUTATION STUMP, RIGHT LOWER EXTREMITY SNOMED Code(s): 87428676128233523 Plan: 1patient with history of PAD in this patient who is status post right gjwps-gak-adyb amputation few weeks ago at [facility] subsequently admitted to that facility and did have infected stump status post debridement now with evidence of partial dehiscence of the wound with initial concern for possible infection,patient did havelocal culture growing yeast possible colonization blood culture so far negative 2patient has been evaluated by vascular surgery for the right AKA stump and recommending no surgical intervention and they have consulted wound care which has taken over the local wound care 3patient remains to be afebrile white count has been normal and will be monitored closely off antibiotics Dictation was produced using [employer] dictation software. please excuse any grammatical, word or spelling errors. Time with Patient: Less than 30
--- NOTE | 2024-07-31 13:37 | P.PN ---
Subjective Progress Note Date: 07/31/24 I am following up with the patient and according to the nurse she continued to be confused but at times she will have fluctuation in mentation and is more cooperative at times than others. Objective - Vital Signs Vital signs: Vital Signs Temp 97.8 F 07/31/24 09:25 Pulse 80 07/31/24 12:24 Resp 16 07/31/24 11:00 BP 125/57 07/31/24 11:00 Pulse Ox 98 07/31/24 11:00 FiO2 Intake & Output 07/30/24 07/31/24 07/31/24 18:59 06:59 18:59 Intake Total 158 560 0 Output Total 200 450 800 Balance -42 110 -800 Weight 43.8 kg Intake: IV 40 20 Invasive Line 3 20 10 Invasive Line 4 20 10 Oral 118 540 0 Output: Urine 200 450 800 Other: Voiding Method External Catheter External Catheter External Catheter # Voids 1 - Exam General: Lying in bed and is not in acute distress. Neuro: Limited. Drowsy but is at times awake able to voice. Is oriented to self should follow few simple commands such as smiling, showing a thumbs up. Otherwise she will go back to sleep. Has quqdx-fqk-mkdl amputation bilaterally. Some of the workup during this hospital visit consisted of: AST of 213 slightly trending down to 185 ALT of 150 and it is down to 92. CK level on initial presentation is 5148 and currently at 1357. Serum folate is 6.30 TSH is 6.470 and the free T4 is 1.57 Vitamin B12 is 449. Ammonia is less than 9. Creatinine on initial presentation was normal and got as high as 1.21 and currently is 1.15 Sodium as low as 135 and is trending up from a few days ago. CT of the head is unremarkable for any acute subacute stroke. Personally reviewed the CT of the head. Limited 2D echo is reported as severe impaired left ventricular systolic function with global hypokinesis. - Labs CBC & Chem 7: 07/31/24 07:44 07/31/24 07:44 Labs: Abnormal Lab Results - Last 24 Hours (Table) 07/30/24 07/31/24 07/31/24 Range/Units 17:33 07:44 07:44 RBC 2.93 L (3.80-5.40) m/uL Hgb 8.8 L (11.4-16.0) gm/dL Hct 28.1 L (34.0-46.0) % RDW 18.8 H (11.5-15.5) % Potassium 3.3 L (3.5-5.1) mmol/L BUN 24 H (7-17) mg/dL Creatinine 1.07 H (0.52-1.04) mg/dL Glucose 126 H (74-99) mg/dL AST 78 H (14-36) U/L ALT 63 H (4-34) U/L Creatine Kinase 868 H (30-135) U/L Total Protein 6.0 L (6.3-8.2) g/dL Albumin 2.7 L (3.5-5.0) g/dL TSH 6.470 H (0.465-4.680) mIU/L Microbiology - Last 24 Hours (Table) 07/26/24 13:00 Anaerobic Culture - Final Knee - Right Assessment and Plan Assessment: This is a 69 y/o woman who presents to the emergency department on 07/24/2024 for pain in her left leg. She was found to have acute critical limb ischemia in the left lower extremity and had above left knee amputation on 07/25/2024. She has elevated ammonia, mildly low sodium, acute kidney injury. Neurology is consulted for altered mentation. Altered Mental status seems due to metabolic encephalopathy and hepatic encephalpathy. CT head is unremarkable. Acute critical limb ischemia of the left lower extremity status post above the left knee amputation on 07/25/2024. Tranaminitis Severely low Folic acid level Mild hyponatremia Acute kidney injury Rhabdomyolysis likely due to her limb ischemia--trending down History of TIA/stroke per medical record History of cardiomyopathy History of above right knee amputation Plan: Continue folic acid supplement Routine EEG is pending. Patient is on aspirin 81 mg and Brilinta 90 mg twice daily. Patient is on thiamine 100 mg daily Infectious disease team is on board Vascular surgery is on board Will defer the rest of the medical management to primary and other special Plan discussed with the patient's nurse. Time with Patient: Less than 30
[2024-07-31] MEDS: HYDROmorphone 1 MG/ML 1 ML SYRINGE IVP PRN (14:27)
--- NOTE | 2024-07-31 15:50 | P.PN ---
Subjective Progress Note Date: 07/31/24 63-year-old female who resides at [facility] was sent here with concerns of possible bilateral pneumonia and increasing shortness of breath found to have COPD exacerbation. Patient initially requiring BiPAP and has been placed on Airvo and is weaning as tolerated 45/45 currently. Procalcitonin was low and pulmonary has discontinued antibiotics. Infectious disease following being closely monitored off antibiotic therapy. Patient continues on steroids and has been transition to a Medrol Dosepak along with imtyll-lth-rzywu DuoNeb treatments and inhalers. Plan is for patient to return to [facility] once patient has been weaned off Airvo. Recommend follow-up chest x-ray in the a.m. and will continue to monitor closely. Objective - Vital Signs Vital signs: Vital Signs Temp 97.8 F 07/31/24 09:25 Pulse 78 07/31/24 09:25 Resp 16 07/31/24 09:25 BP 128/57 07/31/24 09:25 Pulse Ox 99 07/31/24 09:25 FiO2 Intake & Output 07/30/24 07/31/24 07/31/24 18:59 06:59 18:59 Intake Total 158 560 0 Output Total 200 450 800 Balance -42 110 -800 Weight 43.8 kg Intake: IV 40 20 Invasive Line 3 20 10 Invasive Line 4 20 10 Oral 118 540 0 Output: Urine 200 450 800 Other: Voiding Method External Catheter External Catheter External Catheter # Voids 1 - Exam GENERAL: The patient is alert and oriented x 12. Baseline. well developed, elderly appearing, morbidly obese, ill-appearing HEENT: Pupils are round and equally reacting to light. EOMI. no scleral icterus. No conjunctival pallor. Normocephalic, atraumatic. No pharyngeal erythema. No thyromegaly. CARDIOVASCULAR: S1 and S2 muffled PULMONARY: diminished breath sounds bilaterally with some faint expiratory wheezing and rhonchi noted. ABDOMEN: soft. Nontender on exam. obese. non-distended, normoactive bowel sounds. No palpable organomegaly. MUSCULOSKELETAL: No joint swelling or deformity. EXTREMITIES: No cyanosis, clubbing, or pedal edema. NEUROLOGICAL: Gross neurological examination did not reveal any focal deficits. Diffuse weakness SKIN: No rashes. - Labs CBC & Chem 7: 07/31/24 07:44 07/31/24 07:44 Labs: Abnormal Lab Results - Last 24 Hours (Table) 07/30/24 07/31/24 07/31/24 Range/Units 17:33 07:44 07:44 RBC 2.93 L (3.80-5.40) m/uL Hgb 8.8 L (11.4-16.0) gm/dL Hct 28.1 L (34.0-46.0) % RDW 18.8 H (11.5-15.5) % Potassium 3.3 L (3.5-5.1) mmol/L BUN 24 H (7-17) mg/dL Creatinine 1.07 H (0.52-1.04) mg/dL Glucose 126 H (74-99) mg/dL AST 78 H (14-36) U/L ALT 63 H (4-34) U/L Creatine Kinase 868 H (30-135) U/L Total Protein 6.0 L (6.3-8.2) g/dL Albumin 2.7 L (3.5-5.0) g/dL TSH 6.470 H (0.465-4.680) mIU/L Microbiology - Last 24 Hours (Table) 07/26/24 13:00 Anaerobic Culture - Final Knee - Right Assessment and Plan Assessment: Acute bilateral pneumonia, possibly gram-negative versus healthcare associated pneumonia versus aspiration pneumonia Chronic obstructive pulmonary disease, acute exacerbation Acute on chronic hypoxic respiratory failure secondary above Hypercarbia Diabetes mellitus, type II Morbid obesity with a BMI of 44.6 Hypertension Hyperlipidemia GI prophylaxis DVT prophylaxis Full code Recommend to continue with current medications and management with pulmonary and infectious disease following. Patient is maintained on Airvo currently 4545 and weaning as tolerated. Patient chronically wears oxygen outpatient and would probably benefit from BiPAP although unsure if patient will keep the mask on. Per nursing staff attempting to wean although patient desats very quickly. Patient being followed by pulmonary maintained on oypcqw-izl-llyjo DuoNeb lexi tments and has been transitioned to a Medrol Dosepak Continue monitoring Accu-Cheks before meals and at bedtime and will adjust insulins accordingly Patient was evaluated by psychiatry making recommendations to medications Will discuss further with consultations regarding discharge planning. Antibi otics were discontinued by pulmonary with infectious disease following and being closely monitored off antibiotic therapy. Urine culture showing Alanis Due to multiple complex medical issues, overall prognosis is guarded
--- NOTE | 2024-08-01 02:31 | EEG ---
ELECTROENCEPHALOGRAM REPORT CLINICAL HISTORY: This is a 69-year-old woman with altered mental status. The video EEG is obtained to evaluate for seizure epileptiform activity. RELEVANT MEDICATIONS: Lyrica and Robaxin. EEG TYPE: This is a routine 21-channel EEG with video using the 10/20 electrode placement system. DESCRIPTION: Wakefulness and drowsiness are obtained. During awake state, the background consists of qrk-yq-nauqileg voltage of 6 to 6.5 Hertz activity intermixed with delta activity. There was no physiological stage 2 sleep activity. There is no focal slowing. Interictal and ictal is none. ACTIVATION PROCEDURE: Photic stimulation did not evoke a posterior driving response. There is no abnormality during the photic stimulation. Hyperventilation is not performed. CLINICAL INTERPRETATION: This is an abnormal routine EEG. The background slowing is suggestive of moderate encephalopathy likely due to toxic metabolic derangement. Otherwise, there is no focal slowing, epileptiform discharge or seizure on the EEG. Clinical correlation is recommended. SANDRO / MEAGAN: [id number] /
[2024-08-01 09:44] LABS: Anisocytosis Slight; Basophils % (A) 0 %; Eosinophils # (A) 0.1 k/uL (0-0.7); Eosinophils % (A) 1 %; HCT 29.7 % (34.0-46.0); HGB 9.2 gm/dL (11.4-16.0); Hypochromasia Marked; Lymphocytes # (A) 1.4 k/uL (1.0-4.8); Lymphocytes % (A) 18 %; MCH 30.4 pg (25.0-35.0); MCV 97.9 fL (80.0-100.0); Macrocytosis Slight; Mean Platelet Volume 6.9; Monocytes # (A) 0.3 k/uL (0-1.0); Monocytes % (A) 4 %; Neutrophils % (A) 74 %; Platelet Count 288 k/uL (150-450); RBC 3.03 m/uL (3.80-5.40); RDW 18.6 % (11.5-15.5)
[2024-08-01 10:18] LABS: African American GFR (CKD) 68 (>60 ml/min/1.73 sqM); Anion Gap 11 mmol/L; Blood Urea Nitrogen 25 mg/dL (7-17); Calcium 9.3 mg/dL (8.4-10.2); Carbon Dioxide 22 mmol/L (22-30); Chloride 106 mmol/L (98-107); Creatine Kinase 590 U/L (30-135); Glucose 98 mg/dL (74-99); Non-African American GFR(CKD) 59 (>60 ml/min/1.73 sqM); Potassium 3.4 mmol/L (3.5-5.1); Sodium 139 mmol/L (137-145)
--- NOTE | 2024-08-01 13:03 | P.PN ---
Subjective Progress Note Date: 08/01/24 Principal diagnosis: Reason for follow-up is right AKA stump infection Patient is a 69-year-old female with a past medical history significant for hypertension hyperlipidemia coronary artery disease osteoarthritis reflux and also with a history of peripheral arterial disease in this patient who is status post right ledls-xrj-kzlg amputation that was done at [facility] few weeks ago with admission to this facility with critical left limb ischemia status post left ssnay-gyz-ngvj amputation patient noticed to have dehiscence of the right AKA stump prompting this consultation. On today's evaluation that is 08/01/2024,the patient remains to be afebrile, patient is on room air not requiring supplemental oxygen and denies any shortness of breath no chest pain or cough.Patient still complaining of pain to bilateral AKA" more on the right side but no drainage. The patient white count is 8.0, creatinine 0.98 Objective - Vital Signs Vital signs: Vital Signs Temp 98.3 F 08/01/24 08:00 Pulse 73 08/01/24 08:00 Resp 17 08/01/24 08:00 BP 105/52 08/01/24 08:00 Pulse Ox 97 08/01/24 08:00 FiO2 Intake & Output 07/31/24 08/01/24 08/01/24 18:59 06:59 18:59 Intake Total 0 Output Total 3200 600 Balance -3200 -600 Intake: Oral 0 Output: Urine 3200 600 Other: Voiding Method External Catheter External Catheter External Catheter # Bowel Movements 0 - Exam Elderly female up in the bed in no distress No tachypnea or accessory muscle respiration Unlabored breathing Left AKA stump incision intact with no redness right AKA stump is currently dressed - Labs CBC & Chem 7: 08/01/24 09:23 08/01/24 09:23 Labs: Abnormal Lab Results - Last 24 Hours (Table) 08/01/24 08/01/24 Range/Units 09: 09:23 RBC 3.03 L (3.80-5.40) m/uL Hgb 9.2 L (11.4-16.0) gm/dL Hct 29.7 L (34.0-46.0) % RDW 18.6 H (11.5-15.5) % Potassium 3.4 L (3.5-5.1) mmol/L BUN 25 H (7-17) mg/dL Creatine Kinase 590 H (30-135) U/L Microbiology - Last 24 Hours (Table) 07/26/24 14:24 Blood Culture - Final Blood Assessment and Plan (1) Infection of amputation stump, right lower extremity Current Visit: Yes Status: Acute Code(s): T87.43 - INFECTION OF AMPUTATION STUMP, RIGHT LOWER EXTREMITY SNOMED Code(s): 37402757327361625 Plan: 1patient with history of PAD in this patient who is status post right abov e-the-knee amputation few weeks ago at [facility] subsequently admitted to that facility and did have infected stump status post debridement now with evidence of partial dehiscence of the wound with initial concern for possible infection,patient did havelocal culture growing yeast possible colonization blood culture so far negative 2patient has been evaluated by vascular surgery for the right AKA stump and recommending no surgical intervention and they have consulted wound care which has taken over the local wound care 3patient remains to be afebrile white count has been normal and no worsening noticed after discontinuation of antibiotics will monitor closely off antibiotic Dictation was produced using [employer] dictation software. please excuse any grammatical, word or spelling errors. Time with Patient: Less than 30
--- NOTE | 2024-08-01 16:55 | P.PN ---
Subjective Progress Note Date: 08/01/24 Following up with the patient and according to the nurse patient gets very rude with her. It seems that she has been acting that way for the past couple days per the nurse. Objective - Vital Signs Vital signs: Vital Signs Temp 98.3 F 08/01/24 08:00 Pulse 73 08/01/24 08:00 Resp 17 08/01/24 08:00 BP 105/52 08/01/24 08:00 Pulse Ox 97 08/01/24 08:00 FiO2 Intake & Output 07/31/24 08/01/24 08/01/24 18:59 06:59 18:59 Intake Total 0 Output Total 3200 600 Balance -3200 -600 Intake: Oral 0 Output: Urine 3200 600 Other: Voiding Method External Catheter External Catheter External Catheter # Bowel Movements 0 - Exam General: Lying in bed and is not in acute distress. Neuro: Limited. Seems more awake today. Is oriented to self. She states she is in [place]. Then would talk tangenial and refused to cooperate with examination. Is following some simple commands. Some of the workup during this hospital visit consisted of: AST of 213 slightly trending down to 185 ALT of 150 and it is down to 92. CK level on initial presentation is 5148 and currently at 1357. Serum folate is 6.30 TSH is 6.470 and the free T4 is 1.57 Vitamin B12 is 449. Ammonia is less than 9. Creatinine on initial presentation was normal and got as high as 1.21 and currently is 1.15 Sodium as low as 135 and is trending up from a few days ago. CT of the head is unremarkable for any acute subacute stroke. Personally reviewed the CT of the head. Limited 2D echo is reported as severe impaired left ventricular systolic function with global hypokinesis. EEG is abnormal. The background slowing suggestive of moderate encephalopathy likely due to toxic metabolic derangement. Otherwise there is no focal slowing, epileptiform discharge or seizure on the EEG - Labs CBC & Chem 7: 08/01/24 09:23 08/01/24 09:23 Labs: Abnormal Lab Results - Last 24 Hours (Table) 08/01/24 08/01/24 Range/Units : 09: RBC 3.03 L (3.80-5.40) m/uL Hgb 9.2 L (11.4-16.0) gm/dL Hct 29.7 L (34.0-46.0) % RDW 18.6 H (11.5-15.5) % Potassium 3.4 L (3.5-5.1) mmol/L BUN 25 H (7-17) mg/dL Creatine Kinase 590 H (30-135) U/L Microbiology - Last 24 Hours (Table) 07/26/24 14:24 Blood Culture - Final Blood Assessment and Plan Assessment: This is a 69 y/o woman who presents to the emergency department on 07/24/2024 for pain in her left leg. She was found to have acute critical limb ischemia in the left lower extremity and had above left knee amputation on 07/25/2024. She has elevated ammonia, mildly low sodium, acute kidney injury. Neurology is consulted for altered mentation. Altered Mental status seems due to metabolic encephalopathy and hepatic encephalpathy. CT head is unremarkable. Routine EEG is negative for seizure or discharges. Acute critical limb ischemia of the left lower extremity status post above the left knee amputation on 07/25/2024. Tranaminitis Severely low Folic acid level Mild hyponatremia Acute kidney injury Rhabdomyolysis likely due to her limb ischemia--trending down History of TIA/stroke per medical record History of cardiomyopathy History of above right knee amputation Plan: Continue folic acid supplement Patient is on aspirin 81 mg and Brilinta 90 mg twice daily. Patient is on thiamine 100 mg daily Infectious disease team is on board Vascular surgery is on board Will defer the rest of the medical management to primary and other special Plan discussed with the patient's nurse. Will follow-up sporadically. Dr. Singh will resume neurology service on 08/03/2024 A.M. Time with Patient: Less than 30
--- NOTE | 2024-08-01 18:10 | P.PN ---
Subjective Progress Note Date: 08/01/24 69 years old female with past medical history of multiple medical problem including cardiomyopathy and chronic kidney disease stage III She was transferred from [facility] for decrease circulation in her left leg. Patient mentation is at baseline, she knows she is in the hospital and she has insight to her diagnosis She is complaining from left leg pain of 4 days duration, her left leg also is cold and weak. Patient has history of right AKA She denies chest pain or dyspnea. No other specific complaints No history of smoking or illicit drugs recently Patient afebrile, blood pressure stable Hemoglobin 8.9 which is chronic, rest of labs including BMP liver enzymes, INR were unremarkable Creatinine kinase is elevated Left lower extremity CTA showing obstruction of the left superficial femoral artery stent to the left popliteal artery Ejection fraction is 30 to 35% with mild to moderate mitral regurgitation Patient currently on heparin drip, normal saline at 100 mL/h and aspirin and Brilinta, some of them may be held this morning for the procedure Patient evaluated by vascular surgery team and plan to undergo AKA of the left lower extremity this morning around 11 AM Objective - Vital Signs Vital signs: Vital Signs Temp 98.3 F 08/01/24 08:00 Pulse 73 08/01/24 08:00 Resp 17 08/01/24 08:00 BP 105/52 08/01/24 08:00 Pulse Ox 97 08/01/24 08:00 FiO2 Intake & Output 07/31/24 08/01/24 08/01/24 18:59 06:59 18:59 Intake Total 0 Output Total 3200 600 Balance -3200 -600 Intake: Oral 0 Output: Urine 3200 600 Other: Voiding Method External Catheter External Catheter External Catheter # Bowel Movements 0 - Exam GENERAL: The patient is alert and oriented x3, not in any acute distress. Well developed, well nourished. HEENT: Pupils are round and equally reacting to light. EOMI. No scleral icterus. No conjunctival pallor. Normocephalic, atraumatic. No pharyngeal erythema. No thyromegaly. CARDIOVASCULAR: S1 and S2 present. No murmurs, rubs, or gallops. PULMONARY: Chest is clear to auscultation, no wheezing , no crackles. ABDOMEN: Soft, nontender, nondistended, normoactive bowel sounds. No palpable organomegaly. -MUSCULOSKELETAL: No joint swelling or deformity. Status post right AKA. Left lower extremity is cold, diminished pulses, no discoloration EXTREMITIES: No cyanosis, clubbing, or pedal edema. NEUROLOGICAL: Gross neurological examination did not reveal any focal deficits. SKIN: No rashes. no petechiae. - Labs CBC & Chem 7: 08/01/24 09:23 08/01/24 09:23 Labs: Abnormal Lab Results - Last 24 Hours (Table) 08/01/24 08/01/24 Range/Units 09:23 09:23 RBC 3.03 L (3.80-5.40) m/uL Hgb 9.2 L (11.4-16.0) gm/dL Hct 29.7 L (34.0-46.0) % RDW 18.6 H (11.5-15.5) % Potassium 3.4 L (3.5-5.1) mmol/L BUN 25 H (7-17) mg/dL Creatine Kinase 590 H (30-135) U/L Microbiology - Last 24 Hours (Table) 07/26/24 14:24 Blood Culture - Final Blood Assessment and Plan Assessment: Acute ischemia of the left lower extremity with this CTA showing obstruction of the left superficial femoral artery stent to the popliteal artery. Plan for left AKA on 07/25 Peripheral artery disease status post right AKA Rhabdomyolysis Transaminitis Cardiomyopathy with ejection fraction 30 to 35% Chronic kidney disease stage III Hypertension Plan: Continue with dual antiplatelet therapy and heparin drip Vascular surgery team are planning for AKA on 07/25 Will consult cardiology team as patient has extensive cardiac history. Currently patient has no chest pain or active dyspnea, patient still at some risk from this procedure given the nature of the procedure, her heart and kidney disease Continue with normal saline Monitor creatinine kinase and liver enzymes Labs and medication were reviewed.. Continue same treatment. Continue with symptomatic treatment. Resume home medication. Monitor labs and vitals. DVT and GI prophylaxis. Further recommendations as per clinical course of the patient DVT prophylaxis: heparin GI Prophylaxis: Ppi Prognosis is guarded
[2024-08-02 08:28] LABS: Anisocytosis Slight; Basophils % (A) 0 %; Eosinophils # (A) 0.1 k/uL (0-0.7); Eosinophils % (A) 1 %; HCT 27.1 % (34.0-46.0); HGB 8.5 gm/dL (11.4-16.0); Hypochromasia Marked; Lymphocytes # (A) 1.1 k/uL (1.0-4.8); Lymphocytes % (A) 17 %; MCH 30.5 pg (25.0-35.0); MCHC 31.4 g/dL (31.0-37.0); MCV 97.1 fL (80.0-100.0); Macrocytosis Slight; Monocytes # (A) 0.3 k/uL (0-1.0); Monocytes % (A) 5 %; Neutrophils # (A) 4.8 k/uL (1.3-7.7); Neutrophils % (A) 74 %; Platelet Count 249 k/uL (150-450); RBC 2.79 m/uL (3.80-5.40); RDW 18.7 % (11.5-15.5); WBC 6.5 k/uL (3.8-10.6)
[2024-08-02 08:39] LABS: African American GFR (CKD) 71 (>60 ml/min/1.73 sqM); Anion Gap 7 mmol/L; Blood Urea Nitrogen 28 mg/dL (7-17); Calcium 8.9 mg/dL (8.4-10.2); Carbon Dioxide 25 mmol/L (22-30); Chloride 108 mmol/L (98-107); Creatine Kinase 405 U/L (30-135); Glucose 105 mg/dL (74-99); Non-African American GFR(CKD) 61 (>60 ml/min/1.73 sqM); Potassium 3.3 mmol/L (3.5-5.1); Sodium 140 mmol/L (137-145)
--- NOTE | 2024-08-02 14:13 | P.PN ---
Subjective Progress Note Date: 08/02/24 69 years old female with past medical history of multiple medical problem including cardiomyopathy and chronic kidney disease stage III She was transferred from [facility] for decrease circulation in her left leg. Patient mentation is at baseline, she knows she is in the hospital and she has insight to her diagnosis She is complaining from left leg pain of 4 days duration, her left leg also is cold and weak. Patient has history of right AKA She denies chest pain or dyspnea. No other specific complaints No history of smoking or illicit drugs recently Patient afebrile, blood pressure stable Hemoglobin 8.9 which is chronic, rest of labs including BMP liver enzymes, INR were unremarkable Creatinine kinase is elevated Left lower extremity CTA showing obstruction of the left superficial femoral artery stent to the left popliteal artery Ejection fraction is 30 to 35% with mild to moderate mitral regurgitation Patient currently on heparin drip, normal saline at 100 mL/h and aspirin and Brilinta, some of them may be held this morning for the procedure Patient evaluated by vascular surgery team and plan to undergo AKA of the left lower extremity this morning around 11 AM 24-hour interval change 08/02/2024 Patient is seen and evaluated and discussed with nursing staff; no new concerns reported Vital signs are reviewed and remained stable Blood work reveals WBC of 6.5, hemoglobin at 8.5 and platelet count of 249, sodium 140, potassium 3.3, BUNs/creatinine stable at 28/0.95, CK down to 405 from 1357 upon admission -EEG is completed which reveals background slowing suggestive of moderate encephalopathy likely due to toxic metabolic derangement; no epileptiform discharge or focus identified Neurology on board and recommending to continue with thiamine and folic acid supplement; patient remains on aspirin and Brilinta -No further workup is recommended Patient has been evaluated by PT/OT and is recommended skilled rehab; case management/CIDER MAKER consulted Objective - Vital Signs Vital signs: Vital Signs Temp 98.4 F 08/02/24 08:20 Pulse 73 08/02/24 08:20 Resp 17 08/02/24 08:20 BP 122/56 08/02/24 08:20 Pulse Ox 98 08/02/24 08:20 FiO2 Intake & Output 08/01/24 08/02/24 08/02/24 18:59 06:59 18:59 Output Total 300 Balance -300 Output: Urine 300 Other: Voiding Method External Catheter External Catheter External Catheter # Voids 1 # Bowel Movements 1 - Exam GENERAL: The patient is alert and oriented x3, not in any acute distress. Well developed, well nourished. HEENT: Pupils are round and equally reacting to light. EOMI. No scleral icterus. No conjunctival pallor. Normocephalic, atraumatic. No pharyngeal erythema. No thyromegaly. CARDIOVASCULAR: S1 and S2 present. No murmurs, rubs, or gallops. PULMONARY: Chest is clear to auscultation, no wheezing , no crackles. ABDOMEN: Soft, nontender, nondistended, normoactive bowel sounds. No palpable organomegaly. -MUSCULOSKELETAL: No joint swelling or deformity. Status post right AKA. Left lower extremity is cold, diminished pulses, no discoloration EXTREMITIES: No cyanosis, clubbing, or pedal edema. NEUROLOGICAL: Gross neurological examination did not reveal any focal deficits. SKIN: No rashes. no petechiae. - Labs CBC & Chem 7: 08/02/24 08:07 08/02/24 08:07 Labs: Abnormal Lab Results - Last 24 Hours (Table) 08/02/24 08/02/24 Range/Units 08:07 08:07 RBC 2.79 L (3.80-5.40) m/uL Hgb 8.5 L (11.4-16.0) gm/dL Hct 27.1 L (34.0-46.0) % RDW 18.7 H (11.5-15.5) % Potassium 3.3 L (3.5-5.1) mmol/L Chloride 108 H (98-107) mmol/L BUN 28 H (7-17) mg/dL Glucose 105 H (74-99) mg/dL Creatine Kinase 405 H (30-135) U/L Assessment and Plan Assessment: Acute ischemia of the left lower extremity with this CTA showing obstruction of the left superficial femoral artery stent to the popliteal artery. Plan for left AKA on 07/25 Peripheral artery disease status post right AKA Rhabdomyolysis Transaminitis Cardiomyopathy with ejection fraction 30 to 35% Chronic kidney disease stage III Hypertension Plan: Continue with dual antiplatelet therapy and heparin drip Vascular surgery team are planning for AKA on 07/25 Will consult cardiology team as patient has extensive cardiac history. Currently patient has no chest pain or active dyspnea, patient still at some risk from this procedure given the nature of the procedure, her heart and kidney disease Continue with normal saline Monitor creatinine kinase and liver enzymes Labs and medication were reviewed.. Continue same treatment. Continue with symptomatic treatment. Resume home medication. Monitor labs and vitals. DVT and GI prophylaxis. Further recommendations as per clinical course of the patient DVT prophylaxis: heparin GI Prophylaxis: Ppi Prognosis is guarded
[2024-08-02] MEDS ORDERED: Potassium Replacement Protocol 1 EACH MISC MISCELLANE PRN (15:39)
[2024-08-02] MEDS: POTASSIUM CHLORIDE ER 20 MEQ TAB.ER PO STA ×2 (15:50→16:56)
[2024-08-02] MEDS: POTASSIUM CHLORIDE 10 MEQ in WATER FOR INJECTION 1 100ML.BAG IVPB SCH (16:52)
--- NOTE | 2024-08-02 20:54 | P.PN ---
Subjective Progress Note Date: 08/02/24 Principal diagnosis: Reason for follow-up is right AKA stump infection This is a telehealth visit Patient is a 69-year-old female with a past medical history significant for hypertension hyperlipidemia coronary artery disease osteoarthritis reflux and also with a history of peripheral arterial disease in this patient who is status post right [id number] amputation that was done at [facility] few weeks ago with admission to this facility with critical left limb ischemia status post left agtue-xfg-[id number] amputation patient noticed to have dehiscence of the right AKA stump prompting this consultation. On today's evaluation that is 08/02/2024, the patient continues to be afebrile, the patient is on room air and breathing comfortably, the Pt up in the bed no elevated good historian did not answer any question no vomiting or diarrhea has been reported. Patient white count 6.5 creatinine 0.95 blood culture has been negative Objective - Vital Signs Vital signs: Vital Signs Temp 98.4 F 08/02/24 08:20 Pulse 73 08/02/24 08:20 Resp 17 08/02/24 08:20 BP 122/56 08/02/24 08:20 Pulse Ox 98 08/02/24 08:20 FiO2 Intake & Output 08/01/24 08/02/24 08/02/24 18:59 06:59 18:59 Output Total 300 Balance -300 Output: Urine 300 Other: Voiding Method External Catheter External Catheter External Catheter # Voids 1 # Bowel Movements 1 - Exam Elderly female up in the bed in no distress No tachypnea or accessory muscle respiration use Unlabored breathing Left AKA stump incision intact no drainage right AKA stump is dressed - Labs CBC & Chem 7: 08/02/24 08:07 08/02/24 08:07 Labs: Abnormal Lab Results - Last 24 Hours (Table) 08/02/24 08/02/24 Range/Units 08:07 08:07 RBC 2.79 L (3.80-5.40) m/uL Hgb 8.5 L (11.4-16.0) gm/dL Hct 27.1 L (34.0-46.0) % RDW 18.7 H (11.5-15.5) % Potassium 3.3 L (3.5-5.1) mmol/L Chloride 108 H (98-107) mmol/L BUN 28 H (7-17) mg/dL Glucose 105 H (74-99) mg/dL Creatine Kinase 405 H (30-135) U/L Assessment and Plan (1) Infection of amputation stump, right lower extremity Current Visit: Yes Status: Acute Code(s): T87.43 - INFECTION OF AMPUTATION STUMP, RIGHT LOWER EXTREMITY SNOMED Code(s): 46690779900365076 Plan: 1patient with history of PAD in this patient who is status post right zywai-zss-uczt amputation few weeks ago at [facility] subsequently admitted to that facility and did have infected stump status post debridement now with evidence of partial dehiscence of the wound with initial concern for possible infection,patient did havelocal culture growing yeast possible colonization blood culture so far negative 2patient has been evaluated by vascular surgery for the right AKA stump and recommending no surgical intervention and they have consulted wound care which has taken over the local wound care 3patient remains to be afebrile white count has been normal and no worsening noticed after discontinuation of antibiotics has been noticed, hence the patient will monitor closely off antibiotic therapy at this point Dictation was produced using [employer] dictation software. please excuse any grammatical, word or spelling errors. Time with Patient: Less than 30
[2024-08-03 07:39] LABS: Anisocytosis Slight; Basophils % (A) 0 %; Eosinophils # (A) 0.1 k/uL (0-0.7); Eosinophils % (A) 1 %; HCT 28.1 % (34.0-46.0); HGB 8.8 gm/dL (11.4-16.0); Hypochromasia Marked; Lymphocytes # (A) 1.2 k/uL (1.0-4.8); Lymphocytes % (A) 17 %; MCH 30.7 pg (25.0-35.0); MCHC 31.4 g/dL (31.0-37.0); MCV 97.7 fL (80.0-100.0); Macrocytosis Slight; Mean Platelet Volume 7.3; Monocytes # (A) 0.4 k/uL (0-1.0); Monocytes % (A) 5 %; Neutrophils # (A) 5.2 k/uL (1.3-7.7); Neutrophils % (A) 75 %; Platelet Count 272 k/uL (150-450); RBC 2.88 m/uL (3.80-5.40); RDW 18.6 % (11.5-15.5)
[2024-08-03 08:00] LABS: African American GFR (CKD) 74 (>60 ml/min/1.73 sqM); Anion Gap 7 mmol/L; Blood Urea Nitrogen 26 mg/dL (7-17); Calcium 8.6 mg/dL (8.4-10.2); Carbon Dioxide 24 mmol/L (22-30); Chloride 109 mmol/L (98-107); Glucose 143 mg/dL (74-99); Non-African American GFR(CKD) 64 (>60 ml/min/1.73 sqM); Potassium 4.2 mmol/L (3.5-5.1); Sodium 140 mmol/L (137-145)
--- NOTE | 2024-08-03 11:42 | P.DS ---
Providers Date of admission: 07/24/24 17:37 Attending physician: Antionette Bridges Consults: 07/24/24 17:37 Consult Physician Stat Consulting Provider: Mao William Consult Reason/Comments: Left leg arterial occlusion Do you want consulting provider notified?: Already Contacted 07/24/24 23:34 Consult Physician Urgent Consulting Provider: Ted Nova Consult Reason/Comments: leeroy-op eval Do you want consulting provider notified?: Yes, Notify in am 07/26/24 09:28 Consult Physician Urgent Consulting Provider: Kim Garza Consult Reason/Comments: infected right LE stump wound Do you want consulting provider notified?: Yes 07/30/24 13:21 Consult Physician Routine Consulting Provider: Owen Viveros Consult Reason/Comments: change in mentation Do you want consulting provider notified?: Yes Primary care physician: Stated None Hospital Course: Diagnoses: Acute ischemia of the left lower extremity with this CTA showing obstruction of the left superficial femoral artery stent to the popliteal artery. s/p left AKA on 07/25 Peripheral artery disease status post right AKA Rhabdomyolysis, improved Transaminitis, improved. Statin was held. We recommend to recheck liver enzymes in 2 to 3 days and if improved might resume statin with close monitoring of liver enzymes Cardiomyopathy with ejection fraction 30 to 35%. Evaluated by switchboard receptionist Chronic kidney disease stage III Hypertension Metabolic encephalopathy, improved Forgetfulness, possible elements of dementia. Needs to be evaluated as an outpatient Hospital course: This is a pleasant 69 years old female with past medical history of multiple medical problem including cardiomyopathy and chronic kidney disease stage III She was transferred from [facility] for decrease circulation in her left leg. Patient mentation is at baseline, she knows she is in the hospital and she has insight to her diagnosis She is complaining from left leg pain of 4 days duration, her left leg also is cold and weak. Patient has history of right AKA Patient was seen by vascular surgery team Patient underwent left AKA on 07/25/2024. Patient tolerated the procedure well ID team evaluated the patient for right stump wound dehiscence, there was no suspicion of infection currently and she has been monitored off antibiotic as per ID team Patient also evaluated by cardiology team and patient needs to continue with the current cardiac medication Also patient has some period of confusion thought secondary to metabolic/toxic encephalopathy. Neurologist evaluated the patient with EEG and CT of the brain were unremarkable for acute process Patient currently sitting up in chair fully awake and oriented to time place, she is somewhat forgetful about names of persons. But she knows she is in the hospital and she has insight into her diagnosis. She denies any other new complaint. Patient's wants to be discharged Patient was cleared for discharge by all consultants Problems and management plan were discussed with the patient and he verbalized understanding and acceptance Patient was found stable and can be discharged shelter in guarded prognosis however he needs follow-up as an outpatient. Patient was instructed to follow up with PCP within one week and patient agrees Patient was instructed to follow-up with Dr. Lopez in 2-week, Dr. Petersen already from vascular surgery in 1 to 2 weeks and she might benefit from neurologist evaluation as an outpatient with contact information for Dr. Armando it was provided Physical exam -Gen: patient is a AAOx3, patient forgetful at times. No distress CVS: S1-S2, RRR, no murmur Lungs: B/L CTA, no wheezing Abdomen: soft, no distention, no tenderness, positive bowel sounds -Extremity: no leg edema or induration. S/p bilateral AKA Time spent more than 35 minutes Patient Condition at Discharge: Stable Plan - Discharge Summary Discharge Rx Participant: Yes New Discharge Prescriptions: New Dapagliflozin Propanediol [Farxiga] 10 mg PO DAILY tab Folic Acid 1 mg PO DAILY@1200 tab Furosemide [Lasix] 20 mg PO DAILY@0700 tab Multivitamins, Thera [Multivitamin (formulary)] 1 each PO DAILY@1200 tab methocarbamoL [Robaxin-750] 750 mg PO QID PRN tab PRN Reason: Mild Spasms Metoprolol Succinate (ER) [Toprol XL] 12.5 mg PO DAILY tab Thiamine [Vitamin B-1] 100 mg PO BID-W/MEALS tab Continue Aspirin 81 mg PO DAILY #90 tab Nicotine 14Mg/24Hr Patch [Habitrol] 1 patch TRANSDERM DAILY #42 patch Spironolactone [Aldactone] 25 mg PO DAILY #30 tab Acetaminophen [Tylenol 8 Hour] 650 mg PO Q6H PRN PRN Reason: Pain Budesonide [Pulmicort] 0.5 mg INHALATION RT-BID Naloxone HCl 0.4 mg IM DIRECTED PRN PRN Reason: Opioid Reversal Naloxone HCl [Narcan] 4 mg NASAL DIRECTED PRN PRN Reason: Opioid Reversal oxyCODONE HCL [oxyCODONE HCL (IR)] 5 mg PO Q4H PRN PRN Reason: Moderate To Severe Pain (4-10) Pregabalin [Lyrica] 50 mg PO TID@0700,1300,1900 Sennosides [Senokot] 8.6 mg PO BID@0700,1600 Budesonide/Formoterol Fumarate [Symbicort 80-4.5 Mcg Inhaler] 2 puff INHALATION RT-BID Mirtazapine [Remeron Soluspan] 15 mg PO HS Mupirocin 2% Oint [Bactroban 2% Oint] 1 applic TOPICAL MOWEFR@2100 Omeprazole Magnesium [PriLOSEC OTC] 40 mg PO DAILY polyethylene glycoL 3350 [Miralax] 17 gm PO DAILY Sacubitril/Valsartan [Entresto 24 mg-26 mg Tablet] 1 tab PO BID@0700,1600 Ticagrelor [Brilinta] 90 mg PO BID@0700,1600 Tiotropium 2.5 Mcg/Puff [Spiriva Respimat 2.5 Mcg] 2 puff INHALATION RT-DAILY Discontinued Furosemide [Lasix] 40 mg PO DAILY@0700 methocarbamoL [Robaxin-750] 750 mg PO QID Atorvastatin [Lipitor] 80 mg PO HS Dapagliflozin Propanediol [Farxiga] 5 mg PO DAILY Metoprolol Succinate (ER) [Toprol Xl] 25 mg PO DAILY Sulfamethox-Tmp 800-160Mg [Bactrim DS 800-160 mg] 1 tab PO BID@0700,1600 Discharge Medication List Aspirin 81 mg PO DAILY #90 tab 11/07/23 [Rx] Nicotine 14Mg/24Hr Patch [Habitrol] 1 patch TRANSDERM DAILY #42 patch 02/20/24 [Rx] Spironolactone [Aldactone] 25 mg PO DAILY #30 tab 02/24/24 [Rx] Acetaminophen [Tylenol 8 Hour] 650 mg PO Q6H PRN 07/24/24 [History] Budesonide [Pulmicort] 0.5 mg INHALATION RT-BID 07/24/24 [History] Budesonide/Formoterol Fumarate [Symbicort 80-4.5 Mcg Inhaler] 2 puff INHALATION RT-BID 07/24/24 [History] Mirtazapine [Remeron Soluspan] 15 mg PO HS 07/24/24 [History] Mupirocin 2% Oint [Bactroban 2% Oint] 1 applic TOPICAL MOWEFR@2100 07/24/24 [ History] Naloxone HCl 0.4 mg IM DIRECTED PRN 07/24/24 [History] Naloxone HCl [Narcan] 4 mg NASAL DIRECTED PRN 07/24/24 [History] Omeprazole Magnesium [PriLOSEC OTC] 40 mg PO DAILY 07/24/24 [History] Pregabalin [Lyrica] 50 mg PO TID@0700,1300,1900 07/24/24 [History] Sacubitril/Valsartan [Entresto 24 mg-26 mg Tablet] 1 tab PO BID@0700,1600 07/24/24 [History] Sennosides [Senokot] 8.6 mg PO BID@0700,1600 07/24/24 [History] Ticagrelor [Brilinta] 90 mg PO BID@0700,1600 07/24/24 [History] Tiotropium 2.5 Mcg/Puff [Spiriva Respimat 2.5 Mcg] 2 puff INHALATION RT-DAILY 07/24/24 [History] oxyCODONE HCL [oxyCODONE HCL (IR)] 5 mg PO Q4H PRN 07/24/24 [History] polyethylene glycoL 3350 [Miralax] 17 gm PO DAILY 07/24/24 [History] Dapagliflozin Propanediol [Farxiga] 10 mg PO DAILY tab 08/03/24 [Rx] Folic Acid 1 mg PO DAILY@1200 tab 08/03/24 [Rx] Furosemide [Lasix] 20 mg PO DAILY@0700 tab 08/03/24 [Rx] Metoprolol Succinate (ER) [Toprol XL] 12.5 mg PO DAILY tab 08/03/24 [Rx] Multivitamins, Thera [Multivitamin (formulary)] 1 each PO DAILY@1200 tab 08/03/24 [Rx] Thiamine [Vitamin B-1] 100 mg PO BID-W/MEALS tab 08/03/24 [Rx] methocarbamoL [Robaxin-750] 750 mg PO QID PRN tab 08/03/24 [Rx] Follow up Appointment(s)/Referral(s): Sandip Wolfe MD [STAFF PHYSICIAN] - 2 Weeks Mao William DO [STAFF PHYSICIAN] - 2 Weeks None,Stated [Primary Care Provider] - 1-2 days Marnie Hernandez [REFERRING] - 1 Week Activity/Diet/Wound Care/Special Instructions: Activity as tolerated. Patient may shower, no bathing or soaking. Monitor left surgical site, can apply Adaptic, 4 x 4 and Kerlix daily as needed. Patient should have stump server programmer and rigid dressing to left AKA. Discharge Disposition: TRANSFER TO SNF/ECF
--- NOTE | 2024-08-03 11:58 | P.PN ---
Subjective Progress Note Date: 08/03/24 Principal diagnosis: S/p Left AKA with altered mental status/agitation. Ms. Harkins is a 69-year-old [place] female with history of cardiomyopathy as well as chronic kidney disease stage III, gastroesophageal reflux disease, hyperlipidemia, history of stroke, migraine headaches, hypertension, myocardial infarction, osteoarthritis, and skin issue. She was admitted to [facility] on July 24 following a left tjawg-qxh-wefy amputation for superficial artery superficial femoral artery occlusion on that side. Since surgery she has had some confusion with decreased cooperativity and rudeness to staff. On neuro examination on July 30 she was confused and uttering profanity with poor cooperation. This continued on August 01 and she was not been seen since then. It has been noted by staff that she has improved and she is planning to be discharged to a intermediate facility at this time. Of note today the patient does complain of some pain in her left knee since her her left knee stump she appears to be alert and pleasantly cooperative. She had 1 episode where she thought she wanted seen her ozoxvbbh-ez-qhv outside the room however cannot be sure this is hallucination. She does not appear agitated or significantly rude at this time. On exam Exam. She is oriented to the month as well as day and knows who the president is she is able to name objects, repeat well and follow one-step commands but not two-step commands. Cranial nerves appear intact strength is 5 out of 5 in the upper extremities including her finger intrinsics. She has bilateral knee amputations above the knee on the right and below the knee on the left Plan #1 the patient is planning to be discharged to a intermediate facility today and she is currently cleared by neurology. In number next I will looking on the patient she remains in the hospital however I believe she can be discharged if okay with primary team. Objective - Vital Signs Vital signs: Vital Signs Temp 97.6 F 08/03/24 07:50 Pulse 72 08/03/24 09:39 Resp 18 08/03/24 11:49 BP 109/61 08/03/24 07:50 Pulse Ox 99 08/03/24 07:50 FiO2 Intake & Output 08/02/24 08/03/24 08/03/24 18:59 06:59 18:59 Intake Total 120 180 Output Total 350 Balance -230 180 Weight 50.5 kg Intake: Oral 120 180 Output: Urine 350 Other: Voiding Method External Catheter Bedpan Bedpan Diaper Diaper # Voids 2 1 # Bowel Movements 1 - Labs CBC & Chem 7: 08/03/24 06:55 08/03/24 06:55 Labs: Abnormal Lab Results - Last 24 Hours (Table) 08/03/24 08/03/24 Range/Units 06:55 06:55 RBC 2.88 L (3.80-5.40) m/uL Hgb 8.8 L (11.4-16.0) gm/dL Hct 28.1 L (34.0-46.0) % RDW 18.6 H (11.5-15.5) % Chloride 109 H (98-107) mmol/L BUN 26 H (7-17) mg/dL Glucose 143 H (74-99) mg/dL
--- NOTE | 2024-08-03 12:46 | P.PN ---
Subjective Progress Note Date: 08/03/24 Principal diagnosis: Reason for follow-up is right AKA stump infection Patient is a 69-year-old female with a past medical history significant for hypertension hyperlipidemia coronary artery disease osteoarthritis reflux and also with a history of peripheral arterial disease in this patient who is status post right ggapr-qwn-gmqx amputation that was done at [facility] few weeks ago with admission to this facility with critical left limb ischemia status post left porht-rqj-tfpx amputation patient noticed to have dehiscence of the right AKA stump prompting this consultation. On today's evaluation that is 08/03/2024, Patient is afebrile patient is more awake and alert today, currently on room air and denies having any shortness of breath, the patient denies any chest pain or cough, the patient denies any nausea vomiting did not have any abdominal pain and no diarrhea pain to the AKA stump is currently controlled. Patient white count is 7.0 creatinine 0.91 Objective - Vital Signs Vital signs: Vital Signs Temp 97.6 F 08/03/24 07:50 Pulse 76 08/03/24 12:41 Resp 18 08/03/24 11:49 BP 109/61 08/03/24 07:50 Pulse Ox 99 08/03/24 07:50 FiO2 Intake & Output 08/02/24 08/03/24 08/03/24 18:59 06:59 18:59 Intake Total 120 180 Output Total 350 Balance -230 180 Weight 50.5 kg Intake: Oral 120 180 Output: Urine 350 Other: Voiding Method External Catheter Bedpan Bedpan Diaper Diaper # Voids 2 1 # Bowel Movements 1 - Exam GENERAL DESCRIPTION: An elderly female lying in bed in no distress RESPIRATORY SYSTEM: Unlabored breathing , EXTREMITIES: Left AKA stump incision intact with no redness right AKA stump incision dehiscence but no redness - Labs CBC & Chem 7: 08/03/24 06:55 08/03/24 06:55 Labs: Abnormal Lab Results - Last 24 Hours (Table) 08/03/24 08/03/24 Range/Units 06:55 06:55 RBC 2.88 L (3.80-5.40) m/uL Hgb 8.8 L (11.4-16.0) gm/dL Hct 28.1 L (34.0-46.0) % RDW 18.6 H (11.5-15.5) % Chloride 109 H (98-107) mmol/L BUN 26 H (7-17) mg/dL Glucose 143 H (74-99) mg/dL Assessment and Plan (1) Infection of amputation stump, right lower extremity Current Visit: Yes Status: Acute Code(s): T87.43 - INFECTION OF AMPUTATION STUMP, RIGHT LOWER EXTREMITY SNOMED Code(s): 52736311550870592 Plan: 1patient with history of PAD in this patient who is status post right bfxkq-koi-pgbi amputation few weeks ago at [facility] subsequently admitted to that facility and did have infected stump status post debridement now with evidence of partial dehiscence of the wound with initial concern for possible infection,patient did havelocal culture growing yeast possible colonization blood culture so far negative 2patient has been evaluated by vascular surgery for the right AKA stump and recommending no surgical intervention and they have consulted wound care which has taken over the local wound care 3patient remains to be afebrile white count has been normal and no worsening noticed after discontinuation of antibiotics has been noticed. 4we will continue local wound care per the wound care team and no need for antibiotics on discharge Dictation was produced using [employer] dictation software. please excuse any grammatical, word or spelling errors.
[2024-08-04 05:09] VITALS: RESP 16
[2024-08-04 11:19] VITALS: TEMP 97.8
--- NOTE | 2024-08-04 11:24 | P.DS ---
Providers Date of admission: 07/24/24 17:37 Expected date of discharge: 08/04/24 Attending physician: Antionette Bridges Consults: 07/24/24 17:37 Consult Physician Stat Consulting Provider: Mao William Consult Reason/Comments: Left leg arterial occlusion Do you want consulting provider notified?: Already Contacted 07/24/24 23:34 Consult Physician Urgent Consulting Provider: Ted Nova Consult Reason/Comments: leeroy-op eval Do you want consulting provider notified?: Yes, Notify in am 07/26/24 09:28 Consult Physician Urgent Consulting Provider: Kim Garza Consult Reason/Comments: infected right LE stump wound Do you want consulting provider notified?: Yes 07/30/24 13:21 Consult Physician Routine Consulting Provider: Owen Viveros Consult Reason/Comments: change in mentation Do you want consulting provider notified?: Yes Primary care physician: Stated None Hospital Course: Final diagnoses: Acute ischemia of the left lower extremity with this CTA showing obstruction of the left superficial femoral artery stent to the popliteal artery. s/p left AKA on 07/25 Peripheral artery disease status post right AKA Rhabdomyolysis, improved Transaminitis, improved. Statin was held. We recommend to recheck liver enzymes in 2 to 3 days and if improved might resume statin with close monitoring of liver enzymes Cardiomyopathy with ejection fraction 30 to 35%. Evaluated by coin purse framer Chronic kidney disease stage III Hypertension Metabolic encephalopathy, improved Forgetfulness, possible elements of dementia. Needs to be evaluated as an outpatient GI prophylaxis DVT prophylaxis Full code Discharge disposition Patient is going to [facility] on discharge for continued PT/OT therapy. Patient to follow-up with primary care provider patient will need continued wound care outpatient along with vascular surgery and cardiology follow-up in the next 1 to 2 weeks as discussed. Total time taken greater than 35 minutes. Hospital course: This is a pleasant 69 years old female with past medical history of multiple medical problem including cardiomyopathy and chronic kidney disease stage III She was transferred from [facility] for decrease circulation in her left leg. Patient mentation is at baseline, she knows she is in the hospital and she has insight to her diagnosis She is complaining from left leg pain of 4 days duration, her left leg also is cold and weak. Patient has history of right AKA Patient was seen by vascular surgery team Patient underwent left AKA on 07/25/2024. Patient tolerated the procedure well ID team evaluated the patient for right stump wound dehiscence, there was no suspicion of infection currently and she has been monitored off antibiotic as per ID team Patient also evaluated by cardiology team and patient needs to continue with the current cardiac medication Also patient has some period of confusion thought secondary to metabolic/toxic encephalopathy. Neurologist evaluated the patient with EEG and CT of the brain were unremarkable for acute process Patient currently sitting up in chair fully awake and oriented to time place, she is somewhat forgetful about names of persons. But she knows she is in the hospital and she has insight into her diagnosis. Patient was cleared for discharge by all consultants Problems and management plan were discussed with the patient and he verbalized understanding and acceptance Patient was found stable and can be discharged fpc in guarded prognosis however he needs follow-up as an outpatient. Patient was instructed to follow up with PCP within one week and patient agrees Patient was instructed to follow-up with Dr. Wolfe in 2-week, Dr. William from vascular surgery in 1 to 2 weeks and she might benefit from neurologist evaluation as an outpatient with contact information for Dr. Armando it was provided Physical exam: Gen: This is a 69-year-old female who is awake, alert and oriented x 2, baseline, well-developed, elderly appearing, thin built HEENT: Head is atraumatic, normocephalic. Pupils equal, round. Sclerae is anicteric. NECK: Supple. No JVD. No lymphadenopathy. No thyromegaly. LUNGS: Diminished breath sounds bilaterally otherwise clear to auscultation. No wheezes or rhonchi. No intercostal retractions. HEART: S1, S2 are muffled ABDOMEN: Soft. Thin bowel sounds are present. No masses. No tenderness. EXTREMITIES: No pedal edema. No calf tenderness. Bilateral AKA noted NEUROLOGICAL: Patient is awake, alert and oriented x3. Cranial nerves 2 through 12 are grossly intact. Diffusely weak Please refer to medication reconciliation sheet for a list of medications The impression and plan of care has been dictated by Marquita Gavin, Nurse Practitioner as directed. Dr. Joann MD I have performed a history and examination and MDM of this patient, discussed the same with the dictator, and agree with the dictator's assessment and plan as written ,documented as a scribe. Based on total visit time, I have performed more than 50% of the visit. Patient Condition at Discharge: Stable Plan - Discharge Summary Discharge Rx Participant: Yes New Discharge Prescriptions: New Dapagliflozin Propanediol [Farxiga] 10 mg PO DAILY tab Folic Acid 1 mg PO DAILY@1200 tab Furosemide [Lasix] 20 mg PO DAILY@0700 tab Multivitamins, Thera [Multivitamin (formulary)] 1 each PO DAILY@1200 tab methocarbamoL [Robaxin-750] 750 mg PO QID PRN tab PRN Reason: Mild Spasms Metoprolol Succinate (ER) [Toprol XL] 12.5 mg PO DAILY tab Thiamine [Vitamin B-1] 100 mg PO BID-W/MEALS tab Continue Aspirin 81 mg PO DAILY #90 tab Nicotine 14Mg/24Hr Patch [Habitrol] 1 patch TRANSDERM DAILY #42 patch Spironolactone [Aldactone] 25 mg PO DAILY #30 tab Acetaminophen [Tylenol 8 Hour] 650 mg PO Q6H PRN PRN Reason: Pain Budesonide [Pulmicort] 0.5 mg INHALATION RT-BID Naloxone HCl 0.4 mg IM DIRECTED PRN PRN Reason: Opioid Reversal Naloxone HCl [Narcan] 4 mg NASAL DIRECTED PRN PRN Reason: Opioid Reversal oxyCODONE HCL [oxyCODONE HCL (IR)] 5 mg PO Q4H PRN PRN Reason: Moderate To Severe Pain (4-10) Pregabalin [Lyrica] 50 mg PO TID@0700,1300,1900 Sennosides [Senokot] 8.6 mg PO BID@0700,1600 Budesonide/Formoterol Fumarate [Symbicort 80-4.5 Mcg Inhaler] 2 puff INHALATION RT-BID Mirtazapine [Remeron Soluspan] 15 mg PO HS Mupirocin 2% Oint [Bactroban 2% Oint] 1 applic TOPICAL MOWEFR@2100 Omeprazole Magnesium [PriLOSEC OTC] 40 mg PO DAILY polyethylene glycoL 3350 [Miralax] 17 gm PO DAILY Sacubitril/Valsartan [Entresto 24 mg-26 mg Tablet] 1 tab PO BID@0700,1600 Ticagrelor [Brilinta] 90 mg PO BID@0700,1600 Tiotropium 2.5 Mcg/Puff [Spiriva Respimat 2.5 Mcg] 2 puff INHALATION RT-DAILY Discontinued Furosemide [Lasix] 40 mg PO DAILY@0700 methocarbamoL [Robaxin-750] 750 mg PO QID Atorvastatin [Lipitor] 80 mg PO HS Dapagliflozin Propanediol [Farxiga] 5 mg PO DAILY Metoprolol Succinate (ER) [Toprol Xl] 25 mg PO DAILY Sulfamethox-Tmp 800-160Mg [Bactrim DS 800-160 mg] 1 tab PO BID@0700,1600 Discharge Medication List Aspirin 81 mg PO DAILY #90 tab 11/07/23 [Rx] Nicotine 14Mg/24Hr Patch [Habitrol] 1 patch TRANSDERM DAILY #42 patch 02/20/24 [Rx] Spironolactone [Aldactone] 25 mg PO DAILY #30 tab 02/24/24 [Rx] Acetaminophen [Tylenol 8 Hour] 650 mg PO Q6H PRN 07/24/24 [History] Budesonide [Pulmicort] 0.5 mg INHALATION RT-BID 07/24/24 [History] Budesonide/Formoterol Fumarate [Symbicort 80-4.5 Mcg Inhaler] 2 puff INHALATION RT-BID 07/24/24 [History] Mupirocin 2% Oint [Bactroban 2% Oint] 1 applic TOPICAL MOWEFR@2100 07/24/24 [History] Naloxone HCl 0.4 mg IM DIRECTED PRN 07/24/24 [History] Naloxone HCl [Narcan] 4 mg NASAL DIRECTED PRN 07/24/24 [History] Omeprazole Magnesium [PriLOSEC OTC] 40 mg PO DAILY 07/24/24 [History] Sacubitril/Valsartan [Entresto 24 mg-26 mg Tablet] 1 tab PO BID@0700,1600 07/24/24 [History] Sennosides [Senokot] 8.6 mg PO BID@0700,1600 07/24/24 [History] Ticagrelor [Brilinta] 90 mg PO BID@0700,1600 07/24/24 [History] Tiotropium 2.5 Mcg/Puff [Spiriva Respimat 2.5 Mcg] 2 puff INHALATION RT-DAILY 07/24/24 [History] polyethylene glycoL 3350 [Miralax] 17 gm PO DAILY 07/24/24 [History] Dapagliflozin Propanediol [Farxiga] 10 mg PO DAILY tab 08/03/24 [Rx] Folic Acid 1 mg PO DAILY@1200 tab 08/03/24 [Rx] Furosemide [Lasix] 20 mg PO DAILY@0700 tab 08/03/24 [Rx] Metoprolol Succinate (ER) [Toprol XL] 12.5 mg PO DAILY tab 08/03/24 [Rx] Multivitamins, Thera [Multivitamin (formulary)] 1 each PO DAILY@1200 tab 08/03/24 [Rx] Thiamine [Vitamin B-1] 100 mg PO BID-W/MEALS tab 08/03/24 [Rx] methocarbamoL [Robaxin-750] 750 mg PO QID PRN tab 08/03/24 [Rx] Acetaminophen Tab [Tylenol] 650 mg PO Q6HR PRN tab 08/04/24 [Rx] Collagenase [Santyl Ointment] 1 applic TOPICAL DAILY each 08/04/24 [Rx] Heparin Sodium,Porcine (1 ml) [Heparin Sodium] 5,000 unit SQ Q12HR each 08/04/24 [Rx] Pregabalin [Lyrica] 50 mg PO TID@0700,1300,1900 #6 cap 08/04/24 [Rx] oxyCODONE HCL [OxyIR] 5 mg PO Q4H PRN #4 tab 08/04/24 [Rx] Follow up Appointment(s)/Referral(s): Sandip Wolfe MD [STAFF PHYSICIAN] - 2 Weeks Mao William DO [STAFF PHYSICIAN] - 2 Weeks Leobardo Dupree MD [Medical Doctor] - 3 Weeks (Neurologist) None,Stated [Primary Care Provider] - 1-2 days Marnie Hernandez [REFERRING] - 1 Week Activity/Diet/Wound Care/Special Instructions: Activity as tolerated. Patient may shower, no bathing or soaking. Monitor left surgical site, can apply Adaptic, 4 x 4 and Kerlix daily as needed. Patient should have stump group dynamics instructor and rigid dressing to left AKA. Discharge Disposition: TRANSFER TO SNF/ECF
--- NOTE | 2024-08-04 13:22 | P.PN ---
Subjective Progress Note Date: 08/04/24 Principal diagnosis: Reason for follow-up is right AKA stump infection Patient is a 69-year-old female with a past medical history significant for hypertension hyperlipidemia coronary artery disease osteoarthritis reflux and also with a history of peripheral arterial disease in this patient who is status post right nrtim-cvt-ztqh amputation that was done at [facility] few weeks ago with admission to this facility with critical left limb ischemia status post left szzpj-ydw-xzqz amputation patient noticed to have dehiscence of the right AKA stump prompting this consultation. On today's evaluation that is 08/04/2024, patient has been afebrile, patient is more awake alert and appropriate today, please breathing comfortably and is currently on room air, patient denies having any significant cough no chest pain, patient denies nausea vomiting or diarrhea and no abdominal pain and no worsening pain to the AKA stumps. Patient did have white count of 7.0 yesterday creatinine 0.91 no lab draw today Objective - Vital Signs Vital signs: Vital Signs Temp 97.8 F 08/04/24 08:00 Pulse 80 08/04/24 11:53 Resp 16 08/04/24 08:00 BP 90/45 08/04/24 08:00 Pulse Ox 93 L 08/04/24 08:00 FiO2 Intake & Output 08/03/24 08/04/24 08/04/24 18:59 06:59 18:59 Intake Total 538 Balance 538 Weight 50.5 kg Intake: Oral 538 Other: Voiding Method Bedpan Bedpan Bedpan Diaper Diaper Diaper # Voids 3 # Bowel Movements 1 - Exam GENERAL DESCRIPTION: An elderly female lying in bed in no distress RESPIRATORY SYSTEM: Unlabored breathing , EXTREMITIES: Left AKA stump incision intact with no redness right AKA stump incision dehiscence but no redness - Labs CBC & Chem 7: 08/03/24 06:55 08/03/24 06:55 Assessment and Plan (1) Infection of amputation stump, right lower extremity Current Visit: Yes Status: Acute Code(s): T87.43 - INFECTION OF AMPUTATION STUMP, RIGHT LOWER EXTREMITY SNOMED Code(s): 85767229777558470 Plan: 1patient with history of PAD in this patient who is status post right abov e-the-knee amputation few weeks ago at [facility] subsequently admitted to that facility and did have infected stump status post debridement now with evidence of partial dehiscence of the wound with initial concern for possible infection,patient did havelocal culture growing yeast possible colonization blood culture so far negative 2patient has been evaluated by vascular surgery for the right AKA stump and recommending no surgical intervention and they have consulted wound care which has taken over the local wound care 3patient remains to be afebrile white count has been normal and no worsening noticed after discontinuation of antibiotics, no need for antibiotics on discharge continue local wound care per the wound care team Dictation was produced using [employer] dictation software. please excuse any grammatical, word or spelling errors. Time with Patient: Less than 30
[2024-08-04 14:33] VITALS: BP 91/58; PULSE 75
== END 2024-08-04 14:37 | DRG 239 ==
LOC: EC 15:18 → 3SCARD 17:37
PROVIDERS: ADMIT Hospitalist; ATTEND Hospitalist
PROC: 0Y6D0Z1 Detachment at Left Upper Leg, High, Open Approach (ICD-10-PCS; principal; 2024-07-25 11:00)
DX: T82.868A Thrombosis due to vascular prosthetic devices, implants and grafts, initial encounter (principal); G92.8 Other toxic encephalopathy; J96.22 Acute and chronic respiratory failure with hypercapnia; J15.69 Pneumonia due to other Gram-negative bacteria; J96.21 Acute and chronic respiratory failure with hypoxia; T87.43 Infection of amputation stump, right lower extremity; I82.412 Acute embolism and thrombosis of left femoral vein; J44.0 Chronic obstructive pulmonary disease with (acute) lower respiratory infection; I50.22 Chronic systolic (congestive) heart failure; J44.1 Chronic obstructive pulmonary disease with (acute) exacerbation; N17.9 Acute kidney failure, unspecified; I13.0 Hypertensive heart and chronic kidney disease with heart failure and stage 1 through stage 4 chronic kidney disease, or unspecified chronic kidney disease; L97.125 Non-pressure chronic ulcer of left thigh with muscle involvement without evidence of necrosis; Z68.41 Body mass index [BMI] 40.0-44.9, adult; B37.89 Other sites of candidiasis; M62.82 Rhabdomyolysis; E87.1 Hypo-osmolality and hyponatremia; D62 Acute posthemorrhagic anemia; B37.49 Other urogenital candidiasis; L03.115 Cellulitis of right lower limb; T87.81 Dehiscence of amputation stump; D63.1 Anemia in chronic kidney disease; Z89.611 Acquired absence of right leg above knee; E11.51 Type 2 diabetes mellitus with diabetic peripheral angiopathy without gangrene; N18.30 Chronic kidney disease, stage 3 unspecified; E11.22 Type 2 diabetes mellitus with diabetic chronic kidney disease; E11.622 Type 2 diabetes mellitus with other skin ulcer; E66.01 Morbid (severe) obesity due to excess calories; G83.14 Monoplegia of lower limb affecting left nondominant side; Z79.02 Long term (current) use of antithrombotics/antiplatelets; I08.1 Rheumatic disorders of both mitral and tricuspid valves; Z95.820 Peripheral vascular angioplasty status with implants and grafts; Z91.148 Patient's other noncompliance with medication regimen for other reason; R74.01 Elevation of levels of liver transaminase levels; E78.5 Hyperlipidemia, unspecified; I25.5 Ischemic cardiomyopathy; I25.10 Atherosclerotic heart disease of native coronary artery without angina pectoris; Y71.1 Therapeutic (nonsurgical) and rehabilitative cardiovascular devices associated with adverse incidents; Y83.5 Amputation of limb(s) as the cause of abnormal reaction of the patient, or of later complication, without mention of misadventure at the time of the procedure; Z79.82 Long term (current) use of aspirin; Z79.84 Long term (current) use of oral hypoglycemic drugs; Z79.899 Other long term (current) drug therapy; I25.2 Old myocardial infarction; Z86.73 Personal history of transient ischemic attack (TIA), and cerebral infarction without residual deficits; Z86.14 Personal history of Methicillin resistant Staphylococcus aureus infection; Z95.5 Presence of coronary angioplasty implant and graft; Z87.891 Personal history of nicotine dependence; Z79.51 Long term (current) use of inhaled steroids
CPT/HCPCS: 36415; 70450; 71045; 80048; 80053; 80076; 82140; 82550; 82607; 82746; 83605; 83735; 84439; 84443; 85025; 85610; 85730; 86850; 86900; 86901; 86920; 87040; 87070; 87075; 87205; 93005; 93308; 94640; 95816; 96365; 96366; 96375; 99291

== ENCOUNTER 2024-08-07 12:08 | Inpatient (IN) | payer MEDICARE ==
--- NOTE | 2024-08-07 12:45 | ED ---
Extremity Problem HPI - General Chief complaint: Extremity Problem,Nontraumatic Stated complaint: infection Time Seen by Provider: 08/07/24 12:30 Source: patient, EMS, RN notes reviewed Mode of arrival: EMS Limitations: no limitations - History of Present Illness Initial comments: This is a 69-year-old female who presents to the emergency department for concerns of an infection to her right stump. 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 Staff at [facility] are not entirely sure when she had this done, but believes that it may have been in June. She then ended up having a left below-knee amputation at this facility 2 weeks ago. The surgery on the right side had been done at [facility]. Staff is not sure why, believes that she was just there because family had lived in that area. [facility] states that staff went to change her bandages today and started to notice that the wound on the right leg was opening up. She was also reportedly difficult to arouse this morning and they were concerned about poten tial infection contributing to this. Denies any fevers/chills or nausea/vomiting. - Related Data Home Medications Medication Instructions Recorded Confirmed Acetaminophen [Tylenol 8 Hour] 650 mg PO Q6H PRN 07/24/24 08/07/24 Budesonide/Formoterol Fumarate 2 puff INHALATION RT-BID 07/24/24 08/07/24 [Symbicort 80-4.5 Mcg Inhaler] Mupirocin 2% Oint [Bactroban 2% 1 applic TOPICAL MOWEFR@2100 07/24/24 08/07/24 Oint] Naloxone HCl 0.4 mg IM DIRECTED PRN 07/24/24 08/07/24 Naloxone HCl [Narcan] 4 mg NASAL DIRECTED PRN 07/24/24 08/07/24 Omeprazole Magnesium [PriLOSEC OTC] 40 mg PO DAILY 07/24/24 08/07/24 Sacubitril/Valsartan [Entresto 24 1 tab PO BID 07/24/24 08/07/24 mg-26 mg Tablet] Sennosides [Senokot] 8.6 mg PO BID 07/24/24 08/07/24 Ticagrelor [Brilinta] 90 mg PO BID 07/24/24 08/07/24 Tiotropium 2.5 Mcg/Puff [Spiriva 2 puff INHALATION RT-DAILY 07/24/24 08/07/24 Respimat 2.5 Mcg] polyethylene glycoL 3350 [Miralax] 17 gm PO DAILY 07/24/24 08/07/24 Aspirin 81 mg PO HS 08/07/24 08/07/24 Folic Acid 0.8 mg PO HS 08/07/24 08/07/24 Furosemide [Lasix] 20 mg PO DAILY 08/07/24 08/07/24 Mirtazapine [Remeron] 15 mg PO HS 08/07/24 08/07/24 Senior Tabs Multivitamin 1 tab PO HS 08/07/24 08/07/24 Thiamine [Vitamin B-1] 100 mg PO BID 08/07/24 08/07/24 methocarbamoL [Robaxin-750] 750 mg PO QID PRN 08/07/24 08/07/24 oxyCODONE HCL [oxyCODONE HCL (IR)] 5 mg PO Q4H PRN 08/07/24 08/07/24 Previous Rx's Medication Instructions Recorded Nicotine 14Mg/24Hr Patch [Habitrol] 1 patch TRANSDERM DAILY #42 patch 02/20/24 Spironolactone [Aldactone] 25 mg PO DAILY #30 tab 02/24/24 Dapagliflozin Propanediol [Farxiga] 10 mg PO DAILY tab 08/03/24 Metoprolol Succinate (ER) [Toprol 12.5 mg PO DAILY tab 08/03/24 XL] Pregabalin [Lyrica] 50 mg PO TID@0700,1300,1900 #6 cap 08/04/24 Allergies Allergy/AdvReac Type Severity Reaction Status Date / Time No Known Allergies Allergy Verified 08/07/24 16:42 Review of Systems ROS Statement: Those systems with pertinent positive or pertinent negative responses have been documented in the HPI. ROS Other: All systems not noted in ROS Statement are negative. Past Medical History Past Medical History: Coronary Artery Disease (CAD), CVA/TIA, GERD/Reflux, Hyperlipidemia, Hypertension, Myocardial Infarction ([place]), Osteoarthritis (OA), Skin Disorder Additional Past Medical History / Comment(s): hx migraines, TIA- FRACTURED RIGHT ANKLE 1/2 CAST, right AKA, left lower extremity revascularization and stenting, Left AKA Last Myocardial Infarction Date:: History of Any Multi-Drug Resistant Organisms: MRSA Date of last positivie culture/infection: 02/21/18 MDRO Source:: NECK Past Surgical History: Heart Catheterization With Stent, Orthopedic Surgery, Tubal Ligation Additional Past Surgical History / Comment(s): left ankle surgery fracture- pins and plate inserted. 2 cardiac stents, neck surgery, left lower extremity revascularization and stenting and right AKA Past Anesthesia/Blood Transfusion Reactions: No Reported Reaction Date of Last Stent Placement:: 09/2016 Past Psychological History: No Psychological Hx Reported Smoking Status: Current every day smoker Past Alcohol Use History: Occasional Past Drug Use History: None Reported - Past Family History Mother Family Medical History: Hypertension, Myocardial Infarction ([place]) Sister(s) Family Medical History: CVA/TIA, Hypertension, Myocardial Infarction ([place]) Father Family Medical History: Cancer Additional Family Medical History / Comment(s): colon CA Brother(s) Family Medical History: Coronary Artery Disease (CAD), CVA/TIA Additional Family Medical History / Comment(s): CABG General Exam Limitations: no limitations General appearance: alert, in no apparent distress Head exam: Present: atraumatic, normocephalic, normal inspection Respiratory exam: Present: normal lung sounds bilaterally. Absent: respiratory distress, wheezes, rales, rhonchi, stridor Cardiovascular Exam: Present: regular rate, normal rhythm, normal heart sounds. Absent: systolic murmur, diastolic murmur, rubs, gallop, clicks Extremities exam: Present: other (Dehiscence of the right above-knee amputation incision.) Neurological exam: Present: alert, oriented X3, CN II-XII intact Psychiatric exam: Present: normal affect, normal mood Course Vital Signs 08/07/24 08/07/24 08/07/24 12:12 14:16 18:00 Temperature 98.4 F Pulse Rate 84 72 71 Respiratory 17 17 17 Rate Blood Pressure 97/56 90/42 93/46 O2 Sat by Pulse 99 98 98 Oximetry 08/07/24 08/08/24 08/08/24 21:00 00:22 03:22 Temperature Pulse Rate 71 78 67 Respiratory 18 18 18 Rate Blood Pressure 95/50 106/56 96/45 O2 Sat by Pulse 96 97 96 Oximetry 08/08/24 08/08/24 07:25 09:26 Temperature 98 F Pulse Rate 65 72 Respiratory 20 20 Rate Blood Pressure 97/54 95/58 O2 Sat by Pulse 99 100 Oximetry Medical Decision Making - Medical Decision Making This is a 69-year-old female who presents to the emergency department for concerns of an infection to her right leg stump. Was pt. sent in by a medical professional or institution? @ -No Did you speak to anyone other than the patient for history? @ -No Did you review nursing and triage notes? @ -Yes, and I agree, it is accurate with regards to the patient's symptoms. Were old charts reviewed? @ -No Differential Diagnosis? @ -Cellulitis, abscess, osteomyelitis, this is not meant to be an inclusive list. EKG interpreted by me (3pts min.)? @ -Ordered, pending at the time of admission X-rays interpreted by me (1pt min.)? @ -Not obtained CT interpreted by me (1pt min.)? @ -CT scan of the right lower extremity obtained. My interpretation identifies no drainable fluid collection. U/S interpreted by me (1pt. min.)? @ -Not obtained What testing was considered but not performed? (CT, X-rays, U/S, labs)? Why? @ -None What meds were considered but not given? Why? @ -None Did you discuss the management of the patient with other professionals? @ -Yes, Dr. David, who accepts the patient for admission. Did you reconcile home meds? @ -Yes Was smoking cessation discussed for >3mins.? @ -No Was critical care preformed (if so, how long)? @ -No Were there social determinants of health that impacted care today? How? (Homelessness, low income, unemployed, alcoholism, drug addiction, transportation, low edu. Level, literacy, decrease access to med. care, fci, rehab)? @ -No Was there de-escalation of care discussed even if they declined? (Discuss DNR or withdrawal of care, Hospice)? @ -No What co-morbidities impacted this encounter? (DM, HTN, Smoking, COPD, CAD, Cancer, CVA, Hep., AIDS, mental health diagnosis, sleep apnea, morbid obesity)? @ -CAD, PAD Was patient admitted / discharged? @ -Admitted. Lab work demonstrates leukocytosis with a white blood cell count of 13.7. CRP elevated at 15.8. She does have clear wound dehiscence on exam. CT scan of the right lower extremity obtained demonstrating postsurgical changes from the above-knee amputation. There is surrounding soft tissue gas and fluid without organizing drainable fluid collection. Underlying infectious process is not excluded. Given these findings with the leukocytosis and elevated CRP, as well as hypotension, patient was started on vancomycin and cefepime for suspected infection. Blood and wound cultures obtained. Patient admitted to medicine for infection to the stump of right AKA. Consult placed for infectious disease. Case discussed with ED attending, Dr. Levine. Undiagnosed new problem with uncertain prognosis? @ -None Drug Therapy requiring intensive monitoring for toxicity (Heparin, Nitro, Insulin, Cardizem)? @ -None Were any procedures done? @ -None Diagnosis/symptom? @ -Infection to stump of right AKA Acute, or Chronic, or Acute on Chronic? @ -Acute Uncomplicated (without systemic symptoms) or Complicated (systemic symptoms)? @ -Uncomplicated Side effects of treatment? @ -None Exacerbation, Progression, or Severe Exacerbation] @ -Not applicable Poses a threat to life or bodily function? @ -Yes, can lead to septic shock and - Lab Data Result diagrams: 08/07/24 13:05 08/08/24 07:35 Lab Results 08/07/24 08/07/24 08/07/24 Range/Units 13:05 13:05 13:05 WBC 13.7 H (3.8-10.6) k/uL RBC 2.89 L (3.80-5.40) m/uL Hgb 9.0 L (11.4-16.0) gm/dL Hct 27.6 L (34.0-46.0) % MCV 95.6 (80.0-100.0) fL MCH 31.0 (25.0-35.0) pg MCHC 32.5 (31.0-37.0) g/dL RDW 18.6 H (11.5-15.5) % Plt Count 251 (150-450) k/uL MPV 7.5 Neutrophils % 85 % Lymphocytes % 11 % Monocytes % 3 % Eosinophils % 0 % Basophils % 0 % Neutrophils # 11.6 H (1.3-7.7) k/uL Lymphocytes # 1.5 (1.0-4.8) k/uL Monocytes # 0.5 (0-1.0) k/uL Eosinophils # 0.0 (0-0.7) k/uL Basophils # 0.0 (0-0.2) k/uL Hypochromasia Moderate Anisocytosis Slight Macrocytosis Slight ESR 46 H (0-30) mm/Hr Sodium 139 (137-145) mmol/L Potassium 4.2 (3.5-5.1) mmol/L Chloride 112 H (98-107) mmol/L Carbon Dioxide 21 L (22-30) mmol/L Anion Gap 6 mmol/L BUN 26 H (7-17) mg/dL Creatinine 0.73 (0.52-1.04) mg/dL Est GFR (CKD-EPI)AfAm >90 (>60 ml/min/1.73 sqM) Est GFR (CKD-EPI)NonAf 84 (>60 ml/min/1.73 sqM) Glucose 102 H (74-99) mg/dL Plasma Lactic Acid Pradeep 0.7 (0.7-2.0) mmol/L Calcium 8.3 L (8.4-10.2) mg/dL Total Bilirubin 0.8 (0.2-1.3) mg/dL AST 28 (14-36) U/L ALT 29 (4-34) U/L Alkaline Phosphatase 91 (38-126) U/L C-Reactive Protein 15.8 H (<1.0) mg/dL Total Protein 6.2 L (6.3-8.2) g/dL Albumin 2.8 L (3.5-5.0) g/dL - Radiology Data Radiology results: report reviewed, image reviewed Disposition Clinical Impression: 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 Disposition: ADMITTED IP TO THIS HOSP
[2024-08-07] MEDS: MORPHINE SULFATE 4 MG/ML SYRINGE IVP STA (13:05)
[2024-08-07] MEDS: SODIUM CHLORIDE 0.9% 1,000 ML IV STA (13:08)
[2024-08-07 13:21] LABS: Anisocytosis Slight; Basophils % (A) 0 %; Eosinophils % (A) 0 %; HCT 27.6 % (34.0-46.0); Hypochromasia Moderate; Lymphocytes # (A) 1.5 k/uL (1.0-4.8); Lymphocytes % (A) 11 %; MCHC 32.5 g/dL (31.0-37.0); MCV 95.6 fL (80.0-100.0); Macrocytosis Slight; Mean Platelet Volume 7.5; Monocytes # (A) 0.5 k/uL (0-1.0); Monocytes % (A) 3 %; Neutrophils # (A) 11.6 k/uL (1.3-7.7); Neutrophils % (A) 85 %; Platelet Count 251 k/uL (150-450); RBC 2.89 m/uL (3.80-5.40); RDW 18.6 % (11.5-15.5); WBC 13.7 k/uL (3.8-10.6)
[2024-08-07 13:39] LABS: ALT 29 U/L (4-34); AST 28 U/L (14-36); African American GFR (CKD) >90 (>60 ml/min/1.73 sqM); Albumin 2.8 g/dL (3.5-5.0); Alkaline Phosphatase 91 U/L (38-126); Anion Gap 6 mmol/L; Blood Urea Nitrogen 26 mg/dL (7-17); Calcium 8.3 mg/dL (8.4-10.2); Carbon Dioxide 21 mmol/L (22-30); Chloride 112 mmol/L (98-107); Glucose 102 mg/dL (74-99); Non-African American GFR(CKD) 84 (>60 ml/min/1.73 sqM); Potassium 4.2 mmol/L (3.5-5.1); Sodium 139 mmol/L (137-145); Total Bilirubin 0.8 mg/dL (0.2-1.3); Total Protein 6.2 g/dL (6.3-8.2)
[2024-08-07 13:59] LABS: C Reactive Protein 15.8 mg/dL (<1.0)
--- NOTE | 2024-08-07 14:22 | CT ---
EXAMINATION TYPE: CT lower extremity RT w con CT DLP: 374.9 mGycm, Automated exposure control for dose reduction was used. DATE OF EXAM: 08/07/2024 2:05 PM COMPARISON: CTA abdominal aorta with runoff 02/16/2024 CLINICAL INDICATION:Female, 69 years old with history of Possible right AKA infection; PHH, RIGHT LEG INFECTION TECHNIQUE: Axial images were obtained of the right lower extremity with the use of 100 cc of Isovue-3 70 intravenously. Additional coronal and sagittal reformatted images and soft tissue and bone window were obtained for review. FINDINGS: Postsurgical changes from above the knee amputation of the right lower extremity at the lev el of the mid femur. No osseous erosions. There is some heterotopic ossification along the surgical s ite. There are foci of gas identified within the soft tissues near the surgical site with some fluid. No organized drainable fluid collection. There is no evidence of fracture, subluxation, or dislocation. Mild osteoarthritic changes of the rig ht hip. Diffuse anasarca. Partial visualization a rectal fecaloma with some surrounding fat stranding. No jennifer nopathy identified within the visualized pelvis and right inguinal region. Atherosclerotic calcificat ion of the arterial vasculature. IMPRESSION: 1. Postsurgical changes from garhd-[id number]-bhjl amputation of the right lower extremity. There is surrou nding soft tissue gas and fluid without organized drainable fluid collection. Underlying infectious p rocess is not excluded. 2. Partial visualization of a rectal fecaloma with some surrounding fat stranding. Could be seen wit h stercoral colitis. Correlate clinically. [facility], , 08/07/2024 2:20 PM
[2024-08-07] MEDS ORDERED: VANCOMYCIN IV PER PHARMACY 1 EACH MISC MISCELLANE PRN (14:25)
[2024-08-07] MEDS: CEFEPIME 1 GM in SODIUM CHLORIDE 0.9% 50 ML IVPB SCH (14:58)
[2024-08-07] MEDS ORDERED: ONDANSETRON 4 MG/2 ML VIAL IVP PRN (15:10)
[2024-08-07] MEDS ORDERED: ACETAMINOPHEN TAB 325 MG TAB PO PRN (15:10)
[2024-08-07] MEDS ORDERED: NALOXONE 0.4 MG/ML 1 ML VIAL IV PRN (15:10)
[2024-08-07] MEDS ORDERED: MORPHINE SULFATE 4 MG/ML SYRINGE IV PRN (15:10)
[2024-08-07] MEDS: SODIUM CHLORIDE 0.9% 1,000 ML IV SCH (15:45)
[2024-08-07] MEDS: VANCOMYCIN 750 MG in SODIUM CHLORIDE 0.9% 250 ML IVPB STA (17:04)
[2024-08-07 18:21] LABS: Erythrocyte Sedimentation Rate 46 mm/Hr (0-30)
[2024-08-08] MEDS: HYDROcodone/APAP 5-325MG 1 EACH TAB PO PRN (01:33)
[2024-08-08] MEDS ORDERED: NON FORMULARY DRUG (Naloxone Hcl [Narcan] 4 MG Each) NASAL PRN (07:04)
[2024-08-08] MEDS ORDERED: NON FORMULARY DRUG (Acetaminophen [Tylenol 8 Hour] 650 MG Tablet) PO PRN (07:04)
[2024-08-08] MEDS ORDERED: methocarbamoL 750 MG TAB PO PRN (07:04)
[2024-08-08] MEDS ORDERED: NON FORMULARY DRUG (Naloxone Hcl [Naloxone Hcl] 0.4 MG/ML Cartridge) IM PRN (07:04)
[2024-08-08] MEDS: SYMBICORT 80-4.5 MCG INHALER INHALATION SCH (08:00)
[2024-08-08 08:07] LABS: African American GFR (CKD) >90 (>60 ml/min/1.73 sqM); Anion Gap 7 mmol/L; Blood Urea Nitrogen 22 mg/dL (7-17); Calcium 7.1 mg/dL (8.4-10.2); Carbon Dioxide 17 mmol/L (22-30); Chloride 117 mmol/L (98-107); Glucose 70 mg/dL (74-99); Non-African American GFR(CKD) >90 (>60 ml/min/1.73 sqM); Potassium 3.6 mmol/L (3.5-5.1); Sodium 141 mmol/L (137-145)
--- NOTE | 2024-08-08 08:38 | P.CONS ---
History of Present Illness - Reason for Consult Consult date: 08/07/24 Right AKA stump infection Requesting physician: Estela Miller - Chief Complaint Right AKA wound opening up lethargy x 1 day - History of Present Illness Patient is a 69-year-old female with a past medical history significant for coronary artery disease hypertension hyperlipidemia [facility] recently did have right [id number] amputation for ischemic leg completed at [facility] subsequently did have dehiscence of the wound for the patient was evaluated at that facility and treated with antibiotic subsequently patient got readmitted at [facility] with left ischemic leg status post left [id number] amputation at that point there was concern for dehiscence of the right AKA stump which was cultured and the culture grew Alanis patient did not have any fever or elevated white count vascular surgery evaluated the patient and recommended no surgical debridement wound care was consulted for local wound care and subsequently the patient was sent to the local fci for rehabilitation patient has not been sent back to the hospital from the local fci concerning for infection of the right stump apparently the stump was tried reaching the dressing and noted the wound on the right legs seem to be opening up patient was difficult to be aroused this morning with concern for possible infection the patient has been brought into the hospital patient on arrival to the ER was afebrile and no fever have been recorded subsequently patient was nontachycardic mildly hypertensive but not hypoxic and no need for supplemental oxygen she did have a white count of 13.7 with a left shift creatinine 0.73 CRP is 15.8 local culture has been obtained patient did have CT of the right lower extremity postsurgical changes from above the knee amputation of the right lower extremity there is surrounding soft tissue gas and fluid without organizing fluid collection underlying infectious process not excluded patient was started on vancomycin and cefepime infectious disease was consulted for further management of antibiotic therapy most information has been obtained from review the chart as the patient has received morphine just before my evaluation she was sleepy and did not provide any history no family member at the bedside Review of Systems Positive points has been mentioned in HPI complete review could not be obtained because of his underlying mental status Past Medical History Past Medical History: Coronary Artery Disease (CAD), CVA/TIA, GERD/Reflux, Hyperlipidemia, Hypertension, Myocardial Infarction ([place]), Osteoarthritis (OA), Skin Disorder Additional Past Medical History / Comment(s): hx migraines, TIA- FRACTURED RIGHT ANKLE 1/2 CAST, right AKA, left lower extremity revascularization and stenting, Left AKA Last Myocardial Infarction Date:: History of Any Multi-Drug Resistant Organisms: MRSA Year Discovered:: 02/21/18 MDRO Source:: NECK Past Surgical History: Heart Catheterization With Stent, Orthopedic Surgery, Tubal Ligation Additional Past Surgical History / Comment(s): left ankle surgery fracture- pins and plate inserted. 2 cardiac stents, neck surgery, left lower extremity revascularization and stenting and right AKA Past Anesthesia/Blood Transfusion Reactions: No Reported Reaction Date of Last Stent Placement:: 09/2016 Past Psychological History: No Psychological Hx Reported Smoking Status: Current every day smoker Past Alcohol Use History: Occasional Past Drug Use History: None Reported - Past Family History Mother Family Medical History: Hypertension, Myocardial Infarction ([place]) Sister(s) Family Medical History: CVA/TIA, Hypertension, Myocardial Infarction ([place]) Father Family Medical History: Cancer Additional Family Medical History / Comment(s): colon CA Brother(s) Family Medical History: Coronary Artery Disease (CAD), CVA/TIA Additional Family Medical History / Comment(s): CABG Medications and Allergies Home Medications Medication Instructions Recorded Confirmed Type Nicotine 14Mg/24Hr Patch [Habitrol] 1 patch TRANSDERM DAILY #42 patch 02/20/24 08/07/24 Rx Spironolactone [Aldactone] 25 mg PO DAILY #30 tab 02/24/24 08/07/24 Rx Acetaminophen [Tylenol 8 Hour] 650 mg PO Q6H PRN 07/24/24 08/07/24 History Budesonide/Formoterol Fumarate 2 puff INHALATION RT-BID 07/24/24 08/07/24 History [Symbicort 80-4.5 Mcg Inhaler] Mupirocin 2% Oint [Bactroban 2% 1 applic TOPICAL MOWEFR@2100 07/24/24 08/07/24 History Oint] Naloxone HCl 0.4 mg IM DIRECTED PRN 07/24/24 08/07/24 History Naloxone HCl [Narcan] 4 mg NASAL DIRECTED PRN 07/24/24 08/07/24 History Omeprazole Magnesium [PriLOSEC OTC] 40 mg PO DAILY 07/24/24 08/07/24 History Sacubitril/Valsartan [Entresto 24 1 tab PO BID 07/24/24 08/07/24 History mg-26 mg Tablet] Sennosides [Senokot] 8.6 mg PO BID 07/24/24 08/07/24 History Ticagrelor [Brilinta] 90 mg PO BID 07/24/24 08/07/24 History Tiotropium 2.5 Mcg/Puff [Spiriva 2 puff INHALATION RT-DAILY 07/24/24 08/07/24 History Respimat 2.5 Mcg] polyethylene glycoL 3350 [Miralax] 17 gm PO DAILY 07/24/24 08/07/24 History Dapagliflozin Propanediol [Farxiga] 10 mg PO DAILY tab 08/03/24 08/07/24 Rx Metoprolol Succinate (ER) [Toprol 12.5 mg PO DAILY tab 08/03/24 08/07/24 Rx XL] Pregabalin [Lyrica] 50 mg PO TID@0700,1300,1900 #6 cap 08/04/24 08/07/24 Rx Aspirin 81 mg PO HS 08/07/24 08/07/24 History Folic Acid 0.8 mg PO HS 08/07/24 08/07/24 History Furosemide [Lasix] 20 mg PO DAILY 08/07/24 08/07/24 History Mirtazapine [Remeron] 15 mg PO HS 08/07/24 08/07/24 History Senior Tabs Multivitamin 1 tab PO HS 08/07/24 08/07/24 History Thiamine [Vitamin B-1] 100 mg PO BID 08/07/24 08/07/24 History methocarbamoL [Robaxin-750] 750 mg PO QID PRN 08/07/24 08/07/24 History oxyCODONE HCL [oxyCODONE HCL (IR)] 5 mg PO Q4H PRN 08/07/24 08/07/24 History Allergies Allergy/AdvReac Type Severity Reaction Status Date / Time No Known Allergies Allergy Verified 08/07/24 16:42 Physical Exam Vitals: Vital Signs Temp Pulse Resp BP Pulse Ox 08/08/24 07:25 98 F 65 20 97/54 99 08/08/24 03:22 67 18 96/45 96 08/08/24 00:22 78 18 106/56 97 08/07/24 21:00 71 18 95/50 96 08/07/24 18:00 71 17 93/46 98 08/07/24 14:16 72 17 90/42 98 08/07/24 12:12 98.4 F 84 17 97/56 99 GENERAL DESCRIPTION: Elderly female lying in bed, no distress. No tachypnea or accessory muscle of respiration use. HEENT: Shows Pallor , no scleral icterus. Oral mucous membrane is dry. NECK: Trachea central, no thyromegaly. LUNGS: Unlabored breathing. Clear to auscultation anteriorly. No wheeze or crackle. HEART: S1, S2, regular rate and rhythm. No loud murmur ABDOMEN: Soft, no tenderness , EXTREMITIES: Right AKA stump wound with minimal slough tissue some swelling no significant redness or drainage was noticed SKIN: No rash, no masses palpable. NEUROLOGICAL: The patient is lethargic orientation could not be determined Results CBC & Chem 7: 08/07/24 13:05 08/08/24 07:35 Labs: Abnormal Lab Results - Last 24 Hours (Table) 08/07/24 08/07/24 08/08/24 Range/Units 13:05 13:05 07:35 WBC 13.7 H (3.8-10.6) k/uL RBC 2.89 L (3.80-5.40) m/uL Hgb 9.0 L (11.4-16.0) gm/dL Hct 27.6 L (34.0-46.0) % RDW 18.6 H (11.5-15.5) % Neutrophils # 11.6 H (1.3-7.7) k/uL ESR 46 H (0-30) mm/Hr Chloride 112 H 117 H (98-107) mmol/L Carbon Dioxide 21 L 17 L (22-30) mmol/L BUN 26 H 22 H (7-17) mg/dL Glucose 102 H 70 L (74-99) mg/dL Calcium 8.3 L 7.1 L (8.4-10.2) mg/dL C-Reactive Protein 15.8 H (<1.0) mg/dL Total Protein 6.2 L (6.3-8.2) g/dL Albumin 2.8 L (3.5-5.0) g/dL Microbiology - Last 24 Hours (Table) 08/07/24 14:25 Gram Stain - Preliminary Leg - Right Assessment and Plan (1) Leukocytosis Current Visit: Yes Status: Acute Code(s): D72.829 - ELEVATED WHITE BLOOD CELL COUNT, UNSPECIFIED SNOMED Code(s): 773980618 (2) 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 Current Visit: Yes Status: Acute Code(s): T87.43 - INFECTION OF AMPUTATION STUMP, RIGHT LOWER EXTREMITY SNOMED Code(s): 61394756536692632 (3) Dehiscence of amputation stump of right lower extremity Current Visit: No Status: Acute Code(s): T87.81 - DEHISCENCE OF AMPUTATION STUMP SNOMED Code(s): 91524956748679338 Plan: 1patient presenting to the hospital with mental status changes in this patient who did have right AKA stump wound dehiscence on her prior admission wound was culture did grew only Alanis was evaluated by vascular surgery recommended no surgical debridement now with elevated white count abnormal CT underlying infection not entirely excluded 2patient benefit from vascular surgery evaluation for debridement of the wound and deep culture. 3for now continue with vancomycin and cefepime while waiting for the workup to be completed. We will follow on clinical condition and cultures to further adjust medication if needed Thank you for this consultation we will follow the patient along with you Dictation was produced using [employer] dictation software. please excuse any grammatical, word or spelling errors. Time with Patient: Greater than 30
[2024-08-08] MEDS ORDERED: PANTOPRAZOLE 40 MG/10 ML VIAL IV SCH (09:00)
[2024-08-08] MEDS: NICOTINE 14MG/24HR PATCH TRANSDERM SCH (09:27)
[2024-08-08] MEDS: PANTOPRAZOLE 40 MG TABLET PO SCH (09:27)
[2024-08-08] MEDS: THIAMINE 100 MG TAB PO SCH (09:27)
[2024-08-08] MEDS: DAPAGLIFLOZIN PROPANEDIOL 10 MG TABLET PO SCH (09:28)
[2024-08-08] MEDS: SPIRONOLACTONE 25 MG TAB PO SCH (09:28)
[2024-08-08] MEDS: SENNOSIDES 8.6 MG TAB PO SCH (09:28)
[2024-08-08] MEDS: FUROSEMIDE 20 MG TAB PO SCH (09:28)
[2024-08-08] MEDS: polyethylene glycoL 3350 17 GM POWD.PACK PO SCH (09:28)
[2024-08-08] MEDS: METOPROLOL SUCCINATE (ER) 25 MG TAB.ER.24H PO SCH (09:28)
[2024-08-08] MEDS: TICAGRELOR 90 MG TAB PO SCH (09:28)
[2024-08-08] MEDS: SACUBITRIL/VALSARTAN 24 MG-26 MG TABLET PO SCH (09:28)
[2024-08-08] MEDS: IPRATROPIUM 0.5 MG/2.5 ML NEBU INHALATION SCH (10:34)
--- NOTE | 2024-08-08 14:11 | P.HPIM ---
History of Present Illness 69-year-old female admitted for wound dehiscence and possible infection of the right above-knee amputation surgical site area/trauma. Patient also has a bony amputation of the left kidney as well. Patient has extensive medical history including chronic heart failure (hypothyroidism and IV fluids presently not in any heart failure exacerbation at this time. Patient was started on vancomycin and cefepime by infectious disease and probably will need a vascular surgery evaluation of the wound dehiscence. Patient does not have any fever does have leukocytosis CRP is slightly elevated at 15.8 CT of the right lower extremity postsurgical changes REVIEW OF SYSTEMS: All other systems are negative except those mentioned in the HPI PHYSICAL EXAMINATION: GENERAL: The patient is alert and oriented x3, not in any acute distress. Well developed, well nourished. HEENT: Pupils are round and equally reacting to light. EOMI. No scleral icterus. No conjunctival pallor. Normocephalic, atraumatic. No pharyngeal erythema. No thyromegaly. CARDIOVASCULAR: S1 and S2 present. No murmurs, rubs, or gallops. PULMONARY: Chest is clear to auscultation, no wheezing or crackles. ABDOMEN: Soft, nontender, nondistended, normoactive bowel sounds. No palpable organomegaly. MUSCULOSKELETAL: No joint swelling or deformity. EXTREMITIES: No cyanosis, clubbing, or pedal edema. Patient has a bony amputation of both lower extremities left leg stump appears to be clean me leg there is some redness along with wound dehiscence NEUROLOGICAL: Gross neurological examination did not reveal any focal deficits. SKIN: No rashes. Assessment and plan -Wound dehiscence and possible infection of the right above-knee amputation surgical stump site: Vascular surgery will evaluate the patient ID and evaluated the patient patient on Vanco and cefepime at this time surgical site area cultures were obtained -Congestive heart failure chronic systolic function without any acute exacerbation at this time IV fluids will be discontinued monitor closely for any heart failure exacerbation. Entresto, Lasix, beta-darcie, Farxiga will be continued Peripheral vascular disease pneumonia amputation as mentioned above -Chronic kidney disease stage II -Gastroesophageal reflux disease -Hyperlipidemia -Hypertension DVT prophylaxis: Lovenox subcutaneous Past Medical History Past Medical History: Coronary Artery Disease (CAD), CVA/TIA, GERD/Reflux, Hyperlipidemia, Hypertension, Myocardial Infarction ([place]), Osteoarthritis (OA), Skin Disorder Additional Past Medical History / Comment(s): hx migraines, TIA- FRACTURED RIGHT ANKLE 1/2 CAST, right AKA, left lower extremity revascularization and stenting, Left AKA Last Myocardial Infarction Date:: History of Any Multi-Drug Resistant Organisms: MRSA Date of last positivie culture/infection: 02/21/18 MDRO Source:: NECK Past Surgical History: Heart Catheterization With Stent, Orthopedic Surgery, Tubal Ligation Additional Past Surgical History / Comment(s): left ankle surgery fracture- pins and plate inserted. 2 cardiac stents, neck surgery, left lower extremity revascularization and stenting and right AKA Past Anesthesia/Blood Transfusion Reactions: No Reported Reaction Date of Last Stent Placement:: 09/2016 Past Psychological History: No Psychological Hx Reported Smoking Status: Current every day smoker Past Alcohol Use History: Occasional Past Drug Use History: None Reported - Past Family History Mother Family Medical History: Hypertension, Myocardial Infarction ([place]) Sister(s) Family Medical History: CVA/TIA, Hypertension, Myocardial Infarction ([place]) Father Family Medical History: Cancer Additional Family Medical History / Comment(s): colon CA Brother(s) Family Medical History: Coronary Artery Disease (CAD), CVA/TIA Additional Family Medical History / Comment(s): CABG Medications and Allergies Home Medications Medication Instructions Recorded Confirmed Type Nicotine 14Mg/24Hr Patch [Habitrol] 1 patch TRANSDERM DAILY #42 patch 02/20/24 08/07/24 Rx Spironolactone [Aldactone] 25 mg PO DAILY #30 tab 02/24/24 08/07/24 Rx Acetaminophen [Tylenol 8 Hour] 650 mg PO Q6H PRN 07/24/24 08/07/24 History Budesonide/Formoterol Fumarate 2 puff INHALATION RT-BID 07/24/24 08/07/24 History [Symbicort 80-4.5 Mcg Inhaler] Mupirocin 2% Oint [Bactroban 2% 1 applic TOPICAL MOWEFR@2100 07/24/24 08/07/24 History Oint] Naloxone HCl 0.4 mg IM DIRECTED PRN 07/24/24 08/07/24 History Naloxone HCl [Narcan] 4 mg NASAL DIRECTED PRN 07/24/24 08/07/24 History Omeprazole Magnesium [PriLOSEC OTC] 40 mg PO DAILY 07/24/24 08/07/24 History Sacubitril/Valsartan [Entresto 24 1 tab PO BID 07/24/24 08/07/24 History mg-26 mg Tablet] Sennosides [Senokot] 8.6 mg PO BID 07/24/24 08/07/24 History Ticagrelor [Brilinta] 90 mg PO BID 07/24/24 08/07/24 History Tiotropium 2.5 Mcg/Puff [Spiriva 2 puff INHALATION RT-DAILY 07/24/24 08/07/24 History Respimat 2.5 Mcg] polyethylene glycoL 3350 [Miralax] 17 gm PO DAILY 07/24/24 08/07/24 History Dapagliflozin Propanediol [Farxiga] 10 mg PO DAILY tab 08/03/24 08/07/24 Rx Metoprolol Succinate (ER) [Toprol 12.5 mg PO DAILY tab 08/03/24 08/07/24 Rx XL] Pregabalin [Lyrica] 50 mg PO TID@0700,1300,1900 #6 cap 08/04/24 08/07/24 Rx Aspirin 81 mg PO HS 08/07/24 08/07/24 History Folic Acid 0.8 mg PO HS 08/07/24 08/07/24 History Furosemide [Lasix] 20 mg PO DAILY 08/07/24 08/07/24 History Mirtazapine [Remeron] 15 mg PO HS 08/07/24 08/07/24 History Senior Tabs Multivitamin 1 tab PO HS 08/07/24 08/07/24 History Thiamine [Vitamin B-1] 100 mg PO BID 08/07/24 08/07/24 History methocarbamoL [Robaxin-750] 750 mg PO QID PRN 08/07/24 08/07/24 History oxyCODONE HCL [oxyCODONE HCL (IR)] 5 mg PO Q4H PRN 08/07/24 08/07/24 History Allergies Allergy/AdvReac Type Severity Reaction Status Date / Time No Known Allergies Allergy Verified 08/07/24 16:42 Physical Exam Vitals: Vital Signs Temp Pulse Pulse Resp BP BP Pulse Ox 08/08/24 13:51 98.1 F 67 16 109/61 100 08/08/24 13:38 78 08/08/24 13:31 76 08/08/24 11:05 82 20 106/51 97 08/08/24 09:26 72 20 95/58 100 08/08/24 07:25 98 F 65 20 97/54 99 08/08/24 03:22 67 18 96/45 96 08/08/24 00:22 78 18 106/56 97 08/07/24 21:00 71 18 95/50 96 08/07/24 18:00 71 17 93/46 98 08/07/24 14:16 72 17 90/42 98 Results CBC & Chem 7: 08/07/24 13:05 08/08/24 07:35 Labs: Abnormal Lab Results - Last 24 Hours (Table) 08/07/24 08/08/24 Range/Units 13:05 07:35 ESR 46 H (0-30) mm/Hr Chloride 117 H (98-107) mmol/L Carbon Dioxide 17 L (22-30) mmol/L BUN 22 H (7-17) mg/dL Glucose 70 L (74-99) mg/dL Calcium 7.1 L (8.4-10.2) mg/dL Microbiology - Last 24 Hours (Table) 08/07/24 14:25 Gram Stain - Preliminary Leg - Right Wound Culture - Preliminary
[2024-08-08] MEDS: PREGABALIN 50 MG CAP PO SCH (15:29)
--- NOTE | 2024-08-08 15:36 | P.PN ---
Subjective Progress Note Date: 08/08/24 Principal diagnosis: Reason for follow-up is leukocytosis possible right AKA stump infection Patient is a 69-year-old female with a past medical history significant for coronary artery disease hypertension hyperlipidemia CVA TIA MT patient recently did have right ivzzo-ite-rxyk amputation for ischemic leg completed at [facility] subsequently did have dehiscence of the wound for the patient was evaluated at that facility and treated with antibiotic subsequently patient got readmitted at [facility] with left ischemic leg status post left [id number] amputation, patient has been sent to the ER concerning for right AKA stump wound dehiscence and possible infection patient did have a mild elevated white count on admission. On today's visit that is 08/08/2024, the patient continues to be afebrile, the patient is on room air and breathing comfortably, the Pt is more awake and alert today denies having any chest pain or cough, the patient denies having any abdominal pain no vomiting or any diarrhea complaining of some pain to the right AKA stump. Patient did have a creatinine 0.56 cultures currently pending Objective - Vital Signs Vital signs: Vital Signs Temp 98.1 F 08/08/24 13:51 Pulse 67 08/08/24 13:51 Resp 16 08/08/24 13:51 BP 109/61 08/08/24 13:51 Pulse Ox 100 08/08/24 13:51 FiO2 Intake & Output 08/07/24 08/08/24 08/08/24 18:59 06:59 18:59 Weight 40.823 kg - Exam GENERAL DESCRIPTION: An elderly female lying in bed in no distress RESPIRATORY SYSTEM: Unlabored breathing , decreased breath sounds at bases HEART: S1 S2 regular rate and rhythm , ABDOMEN: Soft , no tenderness EXTREMITIES: Right AKA stump wound dehiscence stitches are still there some slough tissue - Labs CBC & Chem 7: 08/07/24 13:05 08/08/24 07:35 Labs: Abnormal Lab Results - Last 24 Hours (Table) 08/07/24 08/08/24 Range/Units 13:05 07:35 ESR 46 H (0-30) mm/Hr Chloride 117 H (98-107) mmol/L Carbon Dioxide 17 L (22-30) mmol/L BUN 22 H (7-17) mg/dL Glucose 70 L (74-99) mg/dL Calcium 7.1 L (8.4-10.2) mg/dL Microbiology - Last 24 Hours (Table) 08/07/24 14:25 Gram Stain - Preliminary Leg - Right Wound Culture - Preliminary Assessment and Plan (1) Leukocytosis Current Visit: Yes Status: Acute Code(s): D72.829 - ELEVATED WHITE BLOOD CELL COUNT, UNSPECIFIED SNOMED Code(s): 148106569 (2) 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 Current Visit: Yes Status: Acute Code(s): T87.43 - INFECTION OF AMPUTATION STUMP, RIGHT LOWER EXTREMITY SNOMED Code(s): 41978499288626432 (3) Dehiscence of amputation stump of right lower extremity Current Visit: No Status: Acute Code(s): T87.81 - DEHISCENCE OF AMPUTATION STUMP SNOMED Code(s): 52263741437391180 Plan: 1patient presenting to the hospital with mental status changes in this patient who did have right AKA stump wound dehiscence on her prior admission wound was culture did grew only Alanis was evaluated by vascular surgery recommended no surgical debridement now with elevated white count abnormal CT underlying infection not entirely excluded 2vascular surgery has been consulted for evaluation/debridement of the wound and deep culture. 3patient is currently being empirically treated with vancomycin and cefepime while waiting for the workup to be completed. Dictation was produced using [employer] dictation software. please excuse any grammatical, word or spelling errors.
[2024-08-08] MEDS: VANCOMYCIN 750 MG in SODIUM CHLORIDE 0.9% 250 ML IVPB SCH (16:02)
[2024-08-08] MEDS: ASPIRIN 81 MG PO SCH (20:48)
[2024-08-08] MEDS: MIRTAZAPINE 15 MG TAB PO SCH (20:48)
[2024-08-08] MEDS: MULTIVITAMINS, THERA 1 EACH TAB PO SCH (20:48)
[2024-08-08] MEDS: FOLIC ACID 1 MG TAB PO SCH (20:51)
--- NOTE | 2024-08-09 07:06 | XR ---
EXAMINATION TYPE: XR chest 1V portable DATE OF EXAM: 08/09/2024 COMPARISON: 07/27/2024 CLINICAL INDICATION: Female, 69 years old with history of HF history; TECHNIQUE: Single frontal view of the chest is obtained. FINDINGS: The heart size is mildly prominent. There is persistent blunting of the right costophrenic angle poss ibly indicating small pleural effusion or chronic pleural parenchymal scarring. There is no pneumotho rax. There is no airspace consolidation. The osseous structures are intact IMPRESSION: No change in the mild cardiomegaly and blunting of the right costophrenic angle as descr ibed above. Chronic right lung changes versus acute cardiopulmonary process. No change compared to th e prior study. [facility], , 08/09/2024 7:04 AM
[2024-08-09 09:01] LABS: HCT 25.1 % (37.2-46.3); HGB 7.5 g/dL (12.0-15.0); MCH 29.3 pg (27.0-32.0); MCHC 29.9 g/dL (32.0-37.0); Mean Platelet Volume 9.9 FL (9.5-12.2); NRBC Per 100 WBC 0 X 10*3/uL (0.00-0.01); Platelet Count 225 X 10*3/uL (140-440); RBC 2.56 X 10*6/uL (4.10-5.20); RDW 20.5 % (11.5-14.5); WBC 8.54 X 10*3/uL (4.50-10.00)
[2024-08-09 09:24] LABS: Blood Urea Nitrogen 19.2 mg/dL (9.0-27.0); Carbon Dioxide 20.7 mmol/L (21.6-31.8); Chloride 110 mmol/L (96-109); Glucose 105 mg/dL (70-110); Potassium 3.8 mmol/L (3.5-5.5); Sodium 140 mmol/L (135-145)
--- NOTE | 2024-08-09 11:35 | P.PN ---
Subjective 69-year-old female admitted for wound dehiscence and possible infection of the right above-knee amputation surgical site area/trauma. Patient also has a bony amputation of the left kidney as well. Patient has extensive medical history i ncluding chronic heart failure (hypothyroidism and IV fluids presently not in any heart failure exacerbation at this time. Patient was started on vancomycin and cefepime by infectious disease and probably will need a vascular surgery evaluation of the wound dehiscence. Patient does not have any fever does have leukocytosis CRP is slightly elevated at 15.8 CT of the right lower extremity postsurgical changes August 09, 2024 Patient is complaining of severe pain in the right leg patient had a CT of the right lower extremity which showed fluid collection suspicious for infection vascular surgery evaluated the patient and he recommended surgical intervention but discussed with the vascular surgeon amputation procedure. REVIEW OF SYSTEMS: All other systems are negative except those mentioned in the HPI PHYSICAL EXAMINATION: GENERAL: The patient is alert and oriented x3, not in any acute distress. Well developed, well nourished. HEENT: Pupils are round and equally reacting to light. EOMI. No scleral icterus. No conjunctival pallor. Normocephalic, atraumatic. No pharyngeal erythema. No thyromegaly. CARDIOVASCULAR: S1 and S2 present. No murmurs, rubs, or gallops. PULMONARY: Chest is clear to auscultation, no wheezing or crackles. ABDOMEN: Soft, nontender, nondistended, normoactive bowel sounds. No palpable organomegaly. MUSCULOSKELETAL: No joint swelling or deformity. EXTREMITIES: No cyanosis, clubbing, or pedal edema. Patient has a bony amputation of both lower extremities left leg stump appears to be clean me leg there is some redness along with wound dehiscence NEUROLOGICAL: Gross neurological examination did not reveal any focal deficits. SKIN: No rashes. Assessment and plan -Wound dehiscence and possible infection and abscess of the right above-knee amputation surgical stump site: Infectious disease evaluated the patient consult surgeon who performed the procedure for possible debridement Vanco and cefepime at this time surgical site area cultures were obtained -Congestive heart failure chronic systolic function without any acute exacerbation at this time IV fluids will be discontinued monitor closely for any heart failure exacerbation. Entresto, Lasix, beta-darcie, Farxiga will be continued chest x-ray showed pleural effusion on the right side which is chronic Peripheral vascular disease pneumonia amputation as mentioned above -Chronic kidney disease stage II -Gastroesophageal reflux disease -Hyperlipidemia -Hypertension DVT prophylaxis: Lovenox subcutaneous Objective - Vital Signs Vital signs: Vital Signs Temp 97.6 F 08/09/24 07:15 Pulse 72 08/09/24 09:25 Resp 16 08/09/24 07:15 BP 103/50 08/09/24 07:15 Pulse Ox 100 08/09/24 07:15 FiO2 Intake & Output 08/08/24 08/09/24 08/09/24 18:59 06:59 18:59 Weight 40.823 kg Other: Voiding Method External Catheter # Voids 1 # Bowel Movements 1 - Labs CBC & Chem 7: 08/09/24 03:29 08/09/24 03:29 Labs: Abnormal Lab Results - Last 24 Hours (Table) 08/09/24 08/09/24 Range/Units 03:29 03:29 RBC 2.56 L (4.10-5.20) X 10*6/uL Hgb 7.5 L (12.0-15.0) g/dL Hct 25.1 L (37.2-46.3) % MCV 98.0 H (80.0-97.0) FL MCHC 29.9 L (32.0-37.0) g/dL RDW 20.5 H (11.5-14.5) % Chloride 110 H (96-109) mmol/L Carbon Dioxide 20.7 L (21.6-31.8) mmol/L BUN/Creatinine Ratio 24.00 H (12.00-20.00) Ratio Calcium 8.0 L (8.7-10.3) mg/dL Microbiology - Last 24 Hours (Table) 08/07/24 14:25 Gram Stain - Final Leg - Right Wound Culture - Final 08/07/24 15:42 Blood Culture - Preliminary Blood
--- NOTE | 2024-08-09 12:23 | P.DS ---
Providers Date of admission: 08/07/24 14:59 Attending physician: Bernice David Consults: 08/07/24 15:10 Consult Physician Urgent Consulting Provider: Kim Garza Consult Reason/Comments: Infection of stump of right above knee amputation Do you want consulting provider notified?: Yes 08/08/24 14:02 Consult Physician Routine Consulting Provider: Mao William Consult Reason/Comments: right stump wound Do you want consulting provider notified?: Yes Primary care physician: Stated None Hospital Course: 69-year-old female admitted for wound dehiscence and possible infection of the right above-knee amputation surgical site area/trauma. Patient also has a bony amputation of the left kidney as well. Patient has extensive medical history including chronic heart failure (hypothyroidism and IV fluids presently not in any heart failure exacerbation at this time. Patient was started on vancomycin and cefepime by infectious disease and probably will need a vascular surgery evaluation of the wound dehiscence. Patient does not have any fever does have leukocytosis CRP is slightly elevated at 15.8 CT of the right lower extremity postsurgical changes and soft tissue gas possibility of infection infectious disease evaluated the patient recommended vascular surgery evaluation patient need to be transferred to [facility] for the surgeon who performed a bony amputation on that side. Discussed with [facility] who accepted the patient patient will be transferred to [facility] for higher level of care. PHYSICAL EXAMINATION: GENERAL: The patient is alert and oriented x3, not in any acute distress. Well developed, well nourished. HEENT: Pupils are round and equally reacting to light. EOMI. No scleral icterus. No conjunctival pallor. Normocephalic, atraumatic. No pharyngeal erythema. No thyromegaly. CARDIOVASCULAR: S1 and S2 present. No murmurs, rubs, or gallops. PULMONARY: Chest is clear to auscultation, no wheezing or crackles. ABDOMEN: Soft, nontender, nondistended, normoactive bowel sounds. No palpable organomegaly. MUSCULOSKELETAL: No joint swelling or deformity. EXTREMITIES: No cyanosis, clubbing, or pedal edema. Patient has a bony amputation of both lower extremities left leg stump appears to be clean me leg there is some redness along with wound dehiscence NEUROLOGICAL: Gross neurological examination did not reveal any focal deficits. SKIN: No rashes. Assessment and plan -Wound dehiscence and possible infection of the right above-knee amputation surgical stump site: Infectious disease evaluated the patient transferred to [facility] for evaluation by the vascular surgeon who performed a bony amputation on the right side Vanco and cefepime at this time surgical site area cultures were obtained, res ults are pending -Congestive heart failure chronic systolic function without any acute exacerbation has been continued on Entresto, Lasix, beta-darcie, Farxiga will be continued chest x-ray showed pleural effusion on the right side which is chronic Peripheral vascular disease pneumonia amputation as mentioned above -Chronic kidney disease stage II -Gastroesophageal reflux disease -Hyperlipidemia -Hypertension Plan - Discharge Summary Discharge Rx Participant: No New Discharge Prescriptions: No Action Nicotine 14Mg/24Hr Patch [Habitrol] 1 patch TRANSDERM DAILY #42 patch Spironolactone [Aldactone] 25 mg PO DAILY #30 tab Acetaminophen [Tylenol 8 Hour] 650 mg PO Q6H PRN PRN Reason: Pain Naloxone HCl 0.4 mg IM DIRECTED PRN PRN Reason: Opioid Reversal Naloxone HCl [Narcan] 4 mg NASAL DIRECTED PRN PRN Reason: Opioid Reversal Sennosides [Senokot] 8.6 mg PO BID Dapagliflozin Propanediol [Farxiga] 10 mg PO DAILY tab Metoprolol Succinate (ER) [Toprol XL] 12.5 mg PO DAILY tab Folic Acid 0.8 mg PO HS Aspirin 81 mg PO HS Furosemide [Lasix] 20 mg PO DAILY methocarbamoL [Robaxin-750] 750 mg PO QID PRN PRN Reason: Muscle Spasm Budesonide/Formoterol Fumarate [Symbicort 80-4.5 Mcg Inhaler] 2 puff INHALATION RT-BID Mupirocin 2% Oint [Bactroban 2% Oint] 1 applic TOPICAL MOWEFR@2100 Omeprazole Magnesium [PriLOSEC OTC] 40 mg PO DAILY polyethylene glycoL 3350 [Miralax] 17 gm PO DAILY Sacubitril/Valsartan [Entresto 24 mg-26 mg Tablet] 1 tab PO BID Ticagrelor [Brilinta] 90 mg PO BID Tiotropium 2.5 Mcg/Puff [Spiriva Respimat 2.5 Mcg] 2 puff INHALATION RT-DAILY Pregabalin [Lyrica] 50 mg PO TID@0700,1300,1900 #6 cap Senior Tabs Multivitamin 1 tab PO HS Mirtazapine [Remeron] 15 mg PO HS oxyCODONE HCL [oxyCODONE HCL (IR)] 5 mg PO Q4H PRN PRN Reason: Moderate To Severe Pain (4-10) Thiamine [Vitamin B-1] 100 mg PO BID Discharge Medication List Nicotine 14Mg/24Hr Patch [Habitrol] 1 patch TRANSDERM DAILY #42 patch 02/20/24 [Rx] Spironolactone [Aldactone] 25 mg PO DAILY #30 tab 02/24/24 [Rx] Acetaminophen [Tylenol 8 Hour] 650 mg PO Q6H PRN 07/24/24 [History] Budesonide/Formoterol Fumarate [Symbicort 80-4.5 Mcg Inhaler] 2 puff INHALATION RT-BID 07/24/24 [History] Mupirocin 2% Oint [Bactroban 2% Oint] 1 applic TOPICAL MOWEFR@2100 07/24/24 [History] Naloxone HCl 0.4 mg IM DIRECTED PRN 07/24/24 [History] Naloxone HCl [Narcan] 4 mg NASAL DIRECTED PRN 07/24/24 [History] Omeprazole Magnesium [PriLOSEC OTC] 40 mg PO DAILY 07/24/24 [History] Sacubitril/Valsartan [Entresto 24 mg-26 mg Tablet] 1 tab PO BID 07/24/24 [History] Sennosides [Senokot] 8.6 mg PO BID 07/24/24 [History] Ticagrelor [Brilinta] 90 mg PO BID 07/24/24 [History] Tiotropium 2.5 Mcg/Puff [Spiriva Respimat 2.5 Mcg] 2 puff INHALATION RT-DAILY 07/24/24 [History] polyethylene glycoL 3350 [Miralax] 17 gm PO DAILY 07/24/24 [History] Dapagliflozin Propanediol [Farxiga] 10 mg PO DAILY tab 08/03/24 [Rx] Metoprolol Succinate (ER) [Toprol XL] 12.5 mg PO DAILY tab 08/03/24 [Rx] Pregabalin [Lyrica] 50 mg PO TID@0700,1300,1900 #6 cap 08/04/24 [Rx] Aspirin 81 mg PO HS 08/07/24 [History] Folic Acid 0.8 mg PO HS 08/07/24 [History] Furosemide [Lasix] 20 mg PO DAILY 08/07/24 [History] Mirtazapine [Remeron] 15 mg PO HS 08/07/24 [History] Senior Tabs Multivitamin 1 tab PO HS 08/07/24 [History] Thiamine [Vitamin B-1] 100 mg PO BID 08/07/24 [History] methocarbamoL [Robaxin-750] 750 mg PO QID PRN 08/07/24 [History] oxyCODONE HCL [oxyCODONE HCL (IR)] 5 mg PO Q4H PRN 08/07/24 [History] Follow up Appointment(s)/Referral(s): None,Stated [Primary Care Provider] - 1-2 days
--- NOTE | 2024-08-09 13:45 | P.PN ---
Subjective Progress Note Date: 08/09/24 Principal diagnosis: Reason for follow-up is leukocytosis possible right AKA stump infection Patient is a 69-year-old female with a past medical history significant for coronary artery disease hypertension hyperlipidemia CVA TIA MO patient recently did have right nczrm-rro-ncvs amputation for ischemic leg completed at [facility] subsequently did have dehiscence of the wound for the patient was evaluated at that facility and treated with antibiotic subsequently patient got readmitted at [facility] with left ischemic leg status post left tfyjb-ccq-eoly amputation, patient has been sent to the ER concerning for right AKA stump wound dehiscence and possible infection patient did have a mild elevated white count on admission. On today's visit that is 08/09/2024, Patient is afebrile patient is currently on room air and denies having any shortness of breath, the patient denies any chest pain or cough, the patient denies any nausea vomiting did not have any abdominal pain and no diarrhea denies any worsening pain to the right AKA stump. Patient white count normalized to 8.54, creatinine 0.8 cultures so far pending Objective - Vital Signs Vital signs: Vital Signs Temp 97.6 F 08/09/24 07:15 Pulse 72 08/09/24 09:25 Resp 16 08/09/24 07:15 BP 103/50 08/09/24 07:15 Pulse Ox 100 08/09/24 07:15 FiO2 Intake & Output 08/08/24 08/09/24 08/09/24 18:59 06:59 18:59 Weight 40.823 kg Other: Voiding Method External Catheter # Voids 1 # Bowel Movements 1 - Exam GENERAL DESCRIPTION: An elderly female lying in bed in no distress RESPIRATORY SYSTEM: Unlabored breathing , decreased breath sounds at bases HEART: S1 S2 regular rate and rhythm , ABDOMEN: Soft , no tenderness EXTREMITIES: Right AKA stump wound dehiscence stitches are still there some slough tissue - Labs CBC & Chem 7: 08/09/24 03:29 08/09/24 03:29 Labs: Abnormal Lab Results - Last 24 Hours (Table) 08/09/24 08/09/24 Range/Units 03:29 03:29 RBC 2.56 L (4.10-5.20) X 10*6/uL Hgb 7.5 L (12.0-15.0) g/dL Hct 25.1 L (37.2-46.3) % MCV 98.0 H (80.0-97.0) FL MCHC 29.9 L (32.0-37.0) g/dL RDW 20.5 H (11.5-14.5) % Chloride 110 H (96-109) mmol/L Carbon Dioxide 20.7 L (21.6-31.8) mmol/L BUN/Creatinine Ratio 24.00 H (12.00-20.00) Ratio Calcium 8.0 L (8.7-10.3) mg/dL Microbiology - Last 24 Hours (Table) 08/07/24 14:25 Gram Stain - Final Leg - Right Wound Culture - Final 08/07/24 15:42 Blood Culture - Preliminary Blood Assessment and Plan (1) Leukocytosis Current Visit: Yes Status: Acute Code(s): D72.829 - ELEVATED WHITE BLOOD CELL COUNT, UNSPECIFIED SNOMED Code(s): 031753417 (2) 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 Current Visit: Yes Status: Acute Code(s): T87.43 - INFECTION OF AMPUTATION STUMP, RIGHT LOWER EXTREMITY SNOMED Code(s): 05694612041691903 (3) Dehiscence of amputation stump of right lower extremity Current Visit: No Status: Acute Code(s): T87.81 - DEHISCENCE OF AMPUTATION STUMP SNOMED Code(s): 23051550010842290 Plan: 1patient presenting to the hospital with mental status changes in this patient who did have right AKA stump wound dehiscence on her prior admission wound was culture did grew only Alanis was evaluated by vascular surgery recommended no surgical debridement now with elevated white count abnormal CT underlying infection not entirely excluded 2vascular surgery has been consulted for evaluation/debridement of the wound however he is recommended the patient to be transferred to her surgeon at [facility] and the primary team is currently working on transfer process 3patient is currently being empirically treated with vancomycin and cefepime while waiting for the workup to be completed. Dictation was produced using [employer] dictation software. please excuse any gramm atical, word or spelling errors. Time with Patient: Less than 30
[2024-08-10 08:34] LABS: HCT 29.6 % (37.2-46.3); HGB 8.7 g/dL (12.0-15.0); MCHC 29.4 g/dL (32.0-37.0); MCV 102.1 FL (80.0-97.0); Mean Platelet Volume 10.1 FL (9.5-12.2); NRBC Per 100 WBC 0 X 10*3/uL (0.00-0.01); Platelet Count 245 X 10*3/uL (140-440); RDW 20.2 % (11.5-14.5)
[2024-08-10 08:48] LABS: BUN/Creat Ratio 19.57 Ratio (12.00-20.00); Blood Urea Nitrogen 13.7 mg/dL (9.0-27.0); Calcium 8.3 mg/dL (8.7-10.3); Carbon Dioxide 22.8 mmol/L (21.6-31.8); Chloride 109 mmol/L (96-109); Glucose 97 mg/dL (70-110); Potassium 3.9 mmol/L (3.5-5.5); Sodium 143 mmol/L (135-145)
[2024-08-10] MEDS ORDERED: ACETAMINOPHEN TAB 325 MG TAB PO PRN (11:21)
--- NOTE | 2024-08-10 11:38 | P.GSCN ---
History of Present Illness Consult date: 08/10/24 Reason for Consult: Right stump wound Requesting physician: Geovanny Rae History of present illness: 69-year-old female with history of peripheral arterial disease, previous left lower extremity revascularization with SFA stenting who recently presented to the hospital in mid July with acute left lower extremity pain and immobility and just discharged on 08/04/2024 to subacute rehab. She underwent a left himwv-cbp-agjh amputation on 07/25/2024 which is healing well. Prior to her last admission she also recently was at [facility] due to right lower extremity occlusive disease, infection and underwent an above-knee amputation at that time and he had to go back for further surgery due to infected site where they took more of her leg off. Apparently patient is experiencing right leg pain at amputation site with drainage with concerns for infection. Vascular surgery was consulted for right leg wound. It was recommended from previous vascular surgeon to transfer patient to [facility] where her initial surgery was completed and apparently transfer has been initiated and patient is waiting for insurance authorization. On admission she had leukocytosis, infectious disease was consulted and she was started on IV antibiotics. She has been afebrile. Wound culture with no growth. Blood culture no growth after 48 hours. Patient reports no pain, drainage or surrounding erythema at left surgical site. She does report tenderness around her right amputation site which still has sutures in place and drainage. Review of Systems Vascular review of systems. Past Medical History Past Medical History: Coronary Artery Disease (CAD), CVA/TIA, GERD/Reflux, Hyperlipidemia, Hypertension, Myocardial Infarction (CO), Osteoarthritis (OA), Skin Disorder Additional Past Medical History / Comment(s): hx migraines, TIA- FRACTURED RIGHT ANKLE 1/2 CAST, right AKA, left lower extremity revascularization and stenting, Left AKA Last Myocardial Infarction Date:: History of Any Multi-Drug Resistant Organisms: MRSA Year Discovered:: 02/21/18 MDRO Source:: NECK Past Surgical History: Heart Catheterization With Stent, Orthopedic Surgery, Tubal Ligation Additional Past Surgical History / Comment(s): left ankle surgery fracture- pins and plate inserted. 2 cardiac stents, neck surgery, left lower extremity revascularization and stenting and right AKA Past Anesthesia/Blood Transfusion Reactions: No Reported Reaction Date of Last Stent Placement:: 09/2016 Past Psychological History: No Psychological Hx Reported Smoking Status: Current every day smoker Past Alcohol Use History: Occasional Past Drug Use History: None Reported - Past Family History Mother Family Medical History: Hypertension, Myocardial Infarction (CO) Sister(s) Family Medical History: CVA/TIA, Hypertension, Myocardial Infarction (CO) Father Family Medical History: Cancer Additional Family Medical History / Comment(s): colon CA Brother(s) Family Medical History: Coronary Artery Disease (CAD), CVA/TIA Additional Family Medical History / Comment(s): CABG Medications and Allergies Home Medications Medication Instructions Recorded Confirmed Type Nicotine 14Mg/24Hr Patch [Habitrol] 1 patch TRANSDERM DAILY #42 patch 02/20/24 08/07/24 Rx Spironolactone [Aldactone] 25 mg PO DAILY #30 tab 02/24/24 08/07/24 Rx Acetaminophen [Tylenol 8 Hour] 650 mg PO Q6H PRN 07/24/24 08/07/24 History Budesonide/Formoterol Fumarate 2 puff INHALATION RT-BID 07/24/24 08/07/24 History [Symbicort 80-4.5 Mcg Inhaler] Mupirocin 2% Oint [Bactroban 2% 1 applic TOPICAL MOWEFR@2100 07/24/24 08/07/24 History Oint] Naloxone HCl 0.4 mg IM DIRECTED PRN 07/24/24 08/07/24 History Naloxone HCl [Narcan] 4 mg NASAL DIRECTED PRN 07/24/24 08/07/24 History Omeprazole Magnesium [PriLOSEC OTC] 40 mg PO DAILY 07/24/24 08/07/24 History Sacubitril/Valsartan [Entresto 24 1 tab PO BID 07/24/24 08/07/24 History mg-26 mg Tablet] Sennosides [Senokot] 8.6 mg PO BID 07/24/24 08/07/24 History Ticagrelor [Brilinta] 90 mg PO BID 07/24/24 08/07/24 History Tiotropium 2.5 Mcg/Puff [Spiriva 2 puff INHALATION RT-DAILY 07/24/24 08/07/24 History Respimat 2.5 Mcg] polyethylene glycoL 3350 [Miralax] 17 gm PO DAILY 07/24/24 08/07/24 History Dapagliflozin Propanediol [Farxiga] 10 mg PO DAILY tab 08/03/24 08/07/24 Rx Metoprolol Succinate (ER) [Toprol 12.5 mg PO DAILY tab 08/03/24 08/07/24 Rx XL] Pregabalin [Lyrica] 50 mg PO TID@0700,1300,1900 #6 cap 08/04/24 08/07/24 Rx Aspirin 81 mg PO HS 08/07/24 08/07/24 History Folic Acid 0.8 mg PO HS 08/07/24 08/07/24 History Furosemide [Lasix] 20 mg PO DAILY 08/07/24 08/07/24 History Mirtazapine [Remeron] 15 mg PO HS 08/07/24 08/07/24 History Senior Tabs Multivitamin 1 tab PO HS 08/07/24 08/07/24 History Thiamine [Vitamin B-1] 100 mg PO BID 08/07/24 08/07/24 History methocarbamoL [Robaxin-750] 750 mg PO QID PRN 08/07/24 08/07/24 History oxyCODONE HCL [oxyCODONE HCL (IR)] 5 mg PO Q4H PRN 08/07/24 08/07/24 History Allergies Allergy/AdvReac Type Severity Reaction Status Date / Time No Known Allergies Allergy Verified 08/07/24 16:42 Surgical - Exam Vital Signs Temp Pulse Resp BP Pulse Ox 98.4 F 84 17 97/56 99 08/07/24 12:12 08/07/24 12:12 08/07/24 12:12 08/07/24 12:12 08/07/24 12:12 General appearance: The patient is alert, oriented, appears in no acute distress. HET: Head is normocephalic and atraumatic. Pupils are equal and reactive. Neck: Supple. Heart: Regular. Lungs: Equal expansion, normal respiratory effort. Abdomen: Soft, nondistended. Extremities: Bilateral fsebi-zje-mviw amputations. Right amputation surgical site with loose sutures in place, drainage noted, with surrounding swelling and tender to palpation. Left amputation site with juju well-approximated, no erythema or drainage noted. Neurological: No focal deficits. Alert and oriented. Results - Labs 08/10/24 02:41 08/10/24 02:41 Abnormal Lab Results - Last 24 Hours (Table) 08/09/24 08/09/24 08/10/24 Range/Units 03:29 03:29 02:41 RBC 2.56 L 2.90 L (4.10-5.20) X 10*6/uL Hgb 7.5 L 8.7 L (12.0-15.0) g/dL Hct 25.1 L 29.6 L (37.2-46.3) % MCV 98.0 H 102.1 H (80.0-97.0) FL MCHC 29.9 L 29.4 L (32.0-37.0) g/dL RDW 20.5 H 20.2 H (11.5-14.5) % Chloride 110 H (96-109) mmol/L Carbon Dioxide 20.7 L (21.6-31.8) mmol/L BUN/Creatinine Ratio 24.00 H (12.00-20.00) Ratio Calcium 8.0 L (8.7-10.3) mg/dL Microbiology - Last 24 Hours (Table) 08/07/24 15:42 Blood Culture - Preliminary Blood 08/07/24 14:25 Anaerobic Culture - Preliminary Leg - Right 08/07/24 14:25 Gram Stain - Final Leg - Right Wound Culture - Final Diabetes panel 08/09/24 Range/Units 03:29 Sodium 140 (135-145) mmol/L Potassium 3.8 (3.5-5.5) mmol/L Chloride 110 H (96-109) mmol/L Carbon Dioxide 20.7 L (21.6-31.8) mmol/L BUN 19.2 (9.0-27.0) mg/dL Creatinine 0.8 (0.6-1.5) mg/dL Glucose 105 (70-110) mg/dL Calcium 8.0 L (8.7-10.3) mg/dL Calcium panel 08/09/24 Range/Units 03:29 Calcium 8.0 L (8.7-10.3) mg/dL Pituitary panel 08/09/24 Range/Units 03:29 Sodium 140 (135-145) mmol/L Potassium 3.8 (3.5-5.5) mmol/L Chloride 110 H (96-109) mmol/L Carbon Dioxide 20.7 L (21.6-31.8) mmol/L BUN 19.2 (9.0-27.0) mg/dL Creatinine 0.8 (0.6-1.5) mg/dL Glucose 105 (70-110) mg/dL Calcium 8.0 L (8.7-10.3) mg/dL Adrenal panel 08/09/24 Range/Units 03:29 Sodium 140 (135-145) mmol/L Potassium 3.8 (3.5-5.5) mmol/L Chloride 110 H (96-109) mmol/L Carbon Dioxide 20.7 L (21.6-31.8) mmol/L BUN 19.2 (9.0-27.0) mg/dL Creatinine 0.8 (0.6-1.5) mg/dL Glucose 105 (70-110) mg/dL Calcium 8.0 L (8.7-10.3) mg/dL - Imaging Comments: CT lower extremity right with contrast reports postsurgical changes from witqb-acg-wajw amputation of the right lower extremity with surrounding soft tissue gas and fluid without organized drainable fluid collection. Underlying infectious process not excluded. Partial visualization of rectal fecaloma with some surrounding fat stranding. Could be seen with stercoral colitis. Correlate clinically. Assessment and Plan Assessment: 1. Right AKA amputation site wound 2. History of peripheral arterial disease with acute critical limb ischemia of left lower extremity with recent left iyaed-ydi-ugwh amputation, healing well 3. History of severe peripheral arterial disease with previous revascularization 4. History of coronary artery disease with previous stents 5. Hypertension 6. History of ischemic cardiomyopathy 7. Chronic tobacco use 8. History of CVA 9. Chronic anemia Plan: Patient is currently in the process of transfer to [facility] where previous right bbjxk-xhn-dsmn amputation was completed. Patient currently waiting authorization. Continue with antibiotics per recommendations from infectious disease. As far as left fvlsy-sha-pcpt amputation, surgical site is healing well. Recommend outpatient follow-up with vascular surgery as previously planned for left AKA. Thank you for this consultation, we will continue to follow. The impression and plan of care has been dictated as directed. I performed a history and examination of this patient, discussed the same with the dictator. I agree with the dictator's note ,documented as a scribe. Any additional findings or plans will be noted.
[2024-08-10] MEDS: VANCOMYCIN TROUGH DUE 1 EACH MISC MISCELLANE ONE (15:15)
[2024-08-10 19:42] VITALS: BP 95/55; PULSE 86; RESP 17; TEMP 98.4
--- NOTE | 2024-08-10 22:00 | P.PN ---
Subjective Progress Note Date: 08/10/24 69-year-old female admitted for wound dehiscence and possible infection of the right above-knee amputation surgical site area/trauma. Patient also has a bony amputation of the left kidney as well. Patient has extensive medical history including chronic heart failure (hypothyroidism and IV fluids presently not in any heart failure exacerbation at this time. Patient was started on vancomycin and cefepime by infectious disease and probably will need a vascular surgery evaluation of the wound dehiscence. Patient does not have any fever does have leukocytosis CRP is slightly elevated at 15.8 CT of the right lower extremity postsurgical changes August 09, 2024 Patient is complaining of severe pain in the right leg patient had a CT of the right lower extremity which showed fluid collection suspicious for infection vascular surgery evaluated the patient and he recommended surgical intervention but discussed with the vascular surgeon amputation procedure. 08/10/2024 Patient is evaluated today resting in bed no acute complaints. The left stump incision is healing well. Patient has increased pain and drainage from the right stump. Has been accepted to [facility] under Dr Damon and currently pending insurance authorization. Continues on IV cefepime and IV vancomycin. REVIEW OF SYSTEMS: All other systems are negative except those mentioned in the HPI PHYSICAL EXAMINATION: GENERAL: The patient is alert and oriented x3, not in any acute distress. Well developed, well nourished. HEENT: Pupils are round and equally reacting to light. EOMI. No scleral icterus. No conjunctival pallor. Normocephalic, atraumatic. No pharyngeal erythema. No thyromegaly. CARDIOVASCULAR: S1 and S2 present. No murmurs, rubs, or gallops. PULMONARY: Chest is clear to auscultation, no wheezing or crackles. ABDOMEN: Soft, nontender, nondistended, normoactive bowel sounds. No palpable organomegaly. MUSCULOSKELETAL: No joint swelling or deformity. EXTREMITIES: No cyanosis, clubbing, or pedal edema. Patient has a bony amputation of both lower extremities left leg stump appears to be clean me leg there is some redness along with wound dehiscence NEUROLOGICAL: Gross neurological examination did not reveal any focal deficits. SKIN: No rashes. Assessment and plan -Wound dehiscence and possible infection and abscess of the right above-knee amputation surgical stump site: pending transfer to [facility] for vascular surgery evaluation. Vanco and cefepime at this time surgical site area cultures were obtained -Congestive heart failure chronic systolic function without any acute exa cerbation at this time IV fluids will be discontinued monitor closely for any heart failure exacerbation. Entresto, Lasix, beta-darcie, Farxiga will be continued chest x-ray showed pleural effusion on the right side which is chronic -Peripheral vascular disease bilateral leg amputation as mentioned above -Left above the knee amputation healing well vascular evaluated the patient and will follow up in the office -Chronic kidney disease stage II -Gastroesophageal reflux disease -Hyperlipidemia -Hypertension DVT prophylaxis: Lovenox subcutaneous The impression and plan of care has been dictated by Radha Truong, Nurse Practitioner as directed. Dr. Butch MD I have performed a history and physical examination and medical decision making of this patient, discussed the same with the dictator, and agree with the dictators assessment and plan as written, documented as a scribe. Based on total visit time, I have performed more than 50% of this visit. Objective - Vital Signs Vital signs: Vital Signs Temp 98.4 F 08/10/24 19:00 Pulse 86 08/10/24 19:00 Resp 17 08/10/24 19:00 BP 95/55 08/10/24 19:00 Pulse Ox 100 08/10/24 19:00 FiO2 Intake & Output 08/10/24 08/10/24 08/11/24 06:59 18:59 06:59 Output Total 500 700 Balance -500 -700 Output: Urine 500 700 Other: Voiding Method External Catheter External Catheter # Bowel Movements 1 1 - Labs CBC & Chem 7: 08/10/24 02:41 08/10/24 02:41 Labs: Abnormal Lab Results - Last 24 Hours (Table) 08/10/24 08/10/24 Range/Units 02:41 02:41 RBC 2.90 L (4.10-5.20) X 10*6/uL Hgb 8.7 L (12.0-15.0) g/dL Hct 29.6 L (37.2-46.3) % MCV 102.1 H (80.0-97.0) FL MCHC 29.4 L (32.0-37.0) g/dL RDW 20.2 H (11.5-14.5) % Calcium 8.3 L (8.7-10.3) mg/dL Microbiology - Last 24 Hours (Table) 08/07/24 15:42 Blood Culture - Preliminary Blood Assessment and Plan Time with Patient: Less than 30
[2024-08-10] MEDS: MUPIROCIN 2% OINT 22 GM TUBE TOPICAL SCH (22:45)
--- NOTE | 2024-08-11 12:31 | P.PN ---
Subjective Progress Note Date: 08/10/24 Principal diagnosis: Reason for follow-up is leukocytosis possible right AKA stump infection Patient is a 69-year-old female with a past medical history significant for coronary artery disease hypertension hyperlipidemia CVA TIA CT patient recently did have right xguft-xvl-kzrz amputation for ischemic leg completed at [facility] subsequently did have dehiscence of the wound for the patient was evaluated at that facility and treated with antibiotic subsequently patient got readmitted at [facility] with left ischemic leg status post left qsena-yvs-npgi amputation, patient has been sent to the ER concerning for right AKA stump wound dehiscence and possible infection patient did have a mild elevated white count on admission. On today's visit that is 08/10/2024, patient has been afebrile, patient is breathing comfortably and is currently on room air, patient seem to be sleepy lethargic today and did not answer any question no vomiting or diarrhea has been reported. Patient white count is 5.70 creatinine 0.7 Vanco trough low at 11.3 blood cult ures currently pending Objective - Vital Signs Vital signs: Vital Signs Temp 97.5 F L 08/10/24 08:00 Pulse 79 08/10/24 08:00 Resp 18 08/10/24 08:00 BP 126/65 08/10/24 08:00 Pulse Ox 99 08/10/24 08:00 FiO2 Intake & Output 08/09/24 08/10/24 08/10/24 18:59 06:59 18:59 Output Total 1200 500 Balance -1200 -500 Output: Urine 1200 500 Other: Voiding Method External Catheter External Catheter # Bowel Movements 1 - Exam GENERAL DESCRIPTION: An elderly female lying in bed in no distress RESPIRATORY SYSTEM: Unlabored breathing , decreased breath sounds at bases HEART: S1 S2 regular rate and rhythm , ABDOMEN: Soft , no tenderness EXTREMITIES: Right AKA stump wound dehiscence stitches are still there some slough tissue - Labs CBC & Chem 7: 08/10/24 02:41 08/10/24 02:41 Labs: Abnormal Lab Results - Last 24 Hours (Table) 08/10/24 12 Range/Units 02:41 02:41 RBC 2.90 L (4.10-5.20) X 10*6/uL Hgb 8.7 L (12.0-15.0) g/dL Hct 29.6 L (37.2-46.3) % MCV 102.1 H (80.0-97.0) FL MCHC 29.4 L (32.0-37.0) g/dL RDW 20.2 H (11.5-14.5) % Calcium 8.3 L (8.7-10.3) mg/dL Microbiology - Last 24 Hours (Table) 08/07/24 15:42 Blood Culture - Preliminary Blood 08/07/24 14:25 Anaerobic Culture - Preliminary Leg - Right 08/07/24 14:25 Gram Stain - Final Leg - Right Wound Culture - Final Assessment and Plan (1) Leukocytosis Status: Acute Code(s): D72.829 - ELEVATED WHITE BLOOD CELL COUNT, UNSPECIFIED SNOMED Code(s): 398888853 (2) 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 Status: Acute Code(s): T87.43 - INFECTION OF AMPUTATION STUMP, RIGHT LOWER EXTREMITY SNOMED Code(s): 31771596219403543 (3) Dehiscence of amputation stump of right lower extremity Status: Acute Code(s): T87.81 - DEHISCENCE OF AMPUTATION STUMP SNOMED Code(s): 55962314902299319 Plan: 1patient presenting to the hospital with mental status changes in this patient who did have right AKA stump wound dehiscence on her prior admission wound was culture did grew only Alanis was evaluated by vascular surgery recommended no surgical debridement now with elevated white count abnormal CT underlying infection not entirely excluded 2vascular surgery has been consulted for evaluation/debridement of the wound however he is recommended the patient to be transferred to her surgeon at [facility] and the primary team is currently working on transfer process which is currently awaiting insurance authorization May continue with vancomycin and cefepime till the patient is evaluated by ID service at that facility Dictation was produced using [employer] dictation software. please excuse any grammatical, word or spelling errors. Time with Patient: Less than 30
== END 2024-08-10 23:08 | disposition short-term general hospital (02) | DRG 565 ==
LOC: EC 12:08 → 4SSUR 14:59
PROVIDERS: ADMIT Internal Medicine; ATTEND Internal Medicine
DX: T87.43 Infection of amputation stump, right lower extremity (principal); I13.0 Hypertensive heart and chronic kidney disease with heart failure and stage 1 through stage 4 chronic kidney disease, or unspecified chronic kidney disease; I50.22 Chronic systolic (congestive) heart failure; Y84.8 Other medical procedures as the cause of abnormal reaction of the patient, or of later complication, without mention of misadventure at the time of the procedure; N18.2 Chronic kidney disease, stage 2 (mild); K21.9 Gastro-esophageal reflux disease without esophagitis; T87.81 Dehiscence of amputation stump; Y83.5 Amputation of limb(s) as the cause of abnormal reaction of the patient, or of later complication, without mention of misadventure at the time of the procedure; Z79.02 Long term (current) use of antithrombotics/antiplatelets; Z79.51 Long term (current) use of inhaled steroids; Z79.82 Long term (current) use of aspirin; Z79.84 Long term (current) use of oral hypoglycemic drugs; Z79.899 Other long term (current) drug therapy; Z82.49 Family history of ischemic heart disease and other diseases of the circulatory system; Z86.73 Personal history of transient ischemic attack (TIA), and cerebral infarction without residual deficits; Z89.512 Acquired absence of left leg below knee; Z89.611 Acquired absence of right leg above knee; Z89.612 Acquired absence of left leg above knee; Z95.5 Presence of coronary angioplasty implant and graft; I25.10 Atherosclerotic heart disease of native coronary artery without angina pectoris; I25.2 Old myocardial infarction; I25.5 Ischemic cardiomyopathy; E78.5 Hyperlipidemia, unspecified; B37.2 Candidiasis of skin and nail; E03.9 Hypothyroidism, unspecified; D64.9 Anemia, unspecified; I73.9 Peripheral vascular disease, unspecified; G43.909 Migraine, unspecified, not intractable, without status migrainosus; Z98.51 Tubal ligation status; Z86.14 Personal history of Methicillin resistant Staphylococcus aureus infection
CPT/HCPCS: 36415; 71045; 80048; 80053; 80202; 83605; 85025; 85027; 85652; 86140; 87040; 87070; 87075; 87205; 93005; 94640; 96361; 96365; 96366; 96368; 96375; 99285

== ENCOUNTER 2024-08-24 07:54 | Emergency (ER) | payer MEDICARE ==
[2024-08-24 08:06] VITALS: RESP 18; TEMP 98
--- NOTE | 2024-08-24 08:29 | ED ---
Fall HPI - General Chief Complaint: Fall Stated Complaint: FALL Time Seen by Provider: 08/24/24 08:00 Source: patient, EMS, RN notes reviewed Mode of arrival: EMS Limitations: no limitations - History of Present Illness Initial Comments: 69-year-old female presents emergency department with chief complaint of a head injury. [facility] reported to her chair she has a bilateral lower extremity amputee is on Brilinta and aspirin. Patient struck her head she complains of left-sided head pain. Patient has no neck pain no extremity injuries no other complaints. - Related Data Home Medications Medication Instructions Recorded Confirmed Acetaminophen [Tylenol 8 Hour] 650 mg PO Q6H PRN 07/24/24 08/07/24 Budesonide/Formoterol Fumarate 2 puff INHALATION RT-BID 07/24/24 08/07/24 [Symbicort 80-4.5 Mcg Inhaler] Mupirocin 2% Oint [Bactroban 2% 1 applic TOPICAL MOWEFR@2100 07/24/24 08/07/24 Oint] Naloxone HCl 0.4 mg IM DIRECTED PRN 07/24/24 08/07/24 Naloxone HCl [Narcan] 4 mg NASAL DIRECTED PRN 07/24/24 08/07/24 Omeprazole Magnesium [PriLOSEC OTC] 40 mg PO DAILY 07/24/24 08/07/24 Sacubitril/Valsartan [Entresto 24 1 tab PO BID 07/24/24 08/07/24 mg-26 mg Tablet] Sennosides [Senokot] 8.6 mg PO BID 07/24/24 08/07/24 Ticagrelor [Brilinta] 90 mg PO BID 07/24/24 08/07/24 Tiotropium 2.5 Mcg/Puff [Spiriva 2 puff INHALATION RT-DAILY 07/24/24 08/07/24 Respimat 2.5 Mcg] polyethylene glycoL 3350 [Miralax] 17 gm PO DAILY 07/24/24 08/07/24 Aspirin 81 mg PO HS 08/07/24 08/07/24 Folic Acid 0.8 mg PO HS 08/07/24 08/07/24 Furosemide [Lasix] 20 mg PO DAILY 08/07/24 08/07/24 Mirtazapine [Remeron] 15 mg PO HS 08/07/24 08/07/24 Senior Tabs Multivitamin 1 tab PO HS 08/07/24 08/07/24 Thiamine [Vitamin B-1] 100 mg PO BID 08/07/24 08/07/24 methocarbamoL [Robaxin-750] 750 mg PO QID PRN 08/07/24 08/07/24 oxyCODONE HCL [oxyCODONE HCL (IR)] 5 mg PO Q4H PRN 08/07/24 08/07/24 Previous Rx's Medication Instructions Recorded Nicotine 14Mg/24Hr Patch [Habitrol] 1 patch TRANSDERM DAILY #42 patch 02/20/24 Spironolactone [Aldactone] 25 mg PO DAILY #30 tab 02/24/24 Dapagliflozin Propanediol [Farxiga] 10 mg PO DAILY tab 08/03/24 Metoprolol Succinate (ER) [Toprol 12.5 mg PO DAILY tab 08/03/24 XL] Pregabalin [Lyrica] 50 mg PO TID@0700,1300,1900 #6 cap 08/04/24 Allergies Allergy/AdvReac Type Severity Reaction Status Date / Time No Known Allergies Allergy Verified 08/24/24 08:06 Review of Systems ROS Statement: Those systems with pertinent positive or pertinent negative responses have been documented in the HPI. ROS Other: All systems not noted in ROS Statement are negative. Past Medical History Past Medical History: Coronary Artery Disease (CAD), CVA/TIA, GERD/Reflux, Hyperlipidemia, Hypertension, Myocardial Infarction (ID), Osteoarthritis (OA), Skin Disorder Additional Past Medical History / Comment(s): hx migraines, TIA- FRACTURED RIGHT ANKLE 1/2 CAST, right AKA, left lower extremity revascularization and stenting, Left AKA Last Myocardial Infarction Date:: History of Any Multi-Drug Resistant Organisms: MRSA Date of last positivie culture/infection: 02/21/18 MDRO Source:: NECK Past Surgical History: Heart Catheterization With Stent, Orthopedic Surgery, Tubal Ligation Additional Past Surgical History / Comment(s): left ankle surgery fracture- pins and plate inserted. 2 cardiac stents, neck surgery, left lower extremity revascularization and stenting and right AKA Past Anesthesia/Blood Transfusion Reactions: No Reported Reaction Date of Last Stent Placement:: 09/2016 Past Psychological History: No Psychological Hx Reported Smoking Status: Current every day smoker Past Alcohol Use History: Occasional Past Drug Use History: None Reported - Past Family History Mother Family Medical History: Hypertension, Myocardial Infarction (ID) Sister(s) Family Medical History: CVA/TIA, Hypertension, Myocardial Infarction (ID) Father Family Medical History: Cancer Additional Family Medical History / Comment(s): colon CA Brother(s) Family Medical History: Coronary Artery Disease (CAD), CVA/TIA Additional Family Medical History / Comment(s): CABG General Exam Limitations: no limitations General appearance: alert, in no apparent distress Head exam: Present: atraumatic, normocephalic, normal inspection Eye exam: Present: normal appearance, PERRL, EOMI. Absent: scleral icterus, conjunctival injection, periorbital swelling ENT exam: Present: normal exam, normal oropharynx, mucous membranes moist Neck exam: Present: normal inspection, full ROM. Absent: tenderness, meningismus, lymphadenopathy Respiratory exam: Present: normal lung sounds bilaterally. Absent: respiratory distress, wheezes, rales, rhonchi, stridor Cardiovascular Exam: Present: regular rate, normal rhythm, normal heart sounds. Absent: systolic murmur, diastolic murmur, rubs, gallop, clicks Extremities exam: Present: other (Bilateral lower extremity amputation) Course Vital Signs 08/24/24 08:02 Temperature 98 F Pulse Rate 78 Respiratory 18 Rate Blood Pressure 99/52 O2 Sat by Pulse 96 Oximetry Medical Decision Making - Medical Decision Making Was pt. sent in by a medical professional or institution (, PA, NEUROSURGICAL PHYSICIAN ASSISTANT, urgent care, hospital, or penitentiary...) When possible be specific @ -No Did you speak to anyone other than the patient for history (EMS, parent, family, police, friend...)? What history was obtained from this source @ -No Did you review nursing and triage notes (agree or disagree)? Why? @ -I reviewed and agree with nursing and triage notes Were old charts reviewed (outside hosp., previous admission, EMS record, old EKG, old radiological studies, urgent care reports/EKG's, penitentiary records)? Report findings @ -No old charts were reviewed Differential Diagnosis (chest pain, altered mental status, abdominal pain women, abdominal pain men, vaginal bleeding, weakness, fever, dyspnea, syncope, headache, dizziness, GI bleed, back pain, seizure, CVA, palpatations, mental health, musculoskeletal)? @ -Intracranial hemorrhage, skull fracture, head injury EKG interpreted by me (3pts min.). @ -None X-rays interpreted by me (1pt min.). @ -None done CT interpreted by me (1pt min.). @ -CT, C-spine showing no acute intracranial hemorrhage, mass effect or cervical fracture U/S interpreted by me (1pt. min.). @ -None done What testing was considered but not performed or refused? (CT, X-rays, U/S, labs)? Why? @ -None What meds were considered but not given or refused? Why? @ -None Did you discuss the management of the patient with other professionals (professionals i.e. , PA, NEUROSURGICAL PHYSICIAN ASSISTANT, lab, RT, psych nurse, social media designer, staff physical therapist, teacher, wildlife conservation officer, rn case manager)? Give summary @ -No Was smoking cessation discussed for >3mins.? @ -No Was critical care preformed (if so, how long)? @ -No Were there social determinants of health that impacted care today? How? (Homelessness, low income, unemployed, alcoholism, drug addiction, transportation, low edu. Level, literacy, decrease access to med. care, correction, rehab)? @ -No Was there de-escalation of care discussed even if they declined (Discuss DNR or withdrawal of care, Hospice)? DNR status @ -No What co-morbidities impacted this encounter? (DM, HTN, Smoking, COPD, CAD, Cancer, CVA, ARF, Chemo, Hep., AIDS, mental health diagnosis, sleep apnea, morbid obesity)? @ -None Was patient admitted / discharged? Hospital course, mention meds given and route, prescriptions, significant lab abnormalities, going to OR and other pertinent info. @ -Patient presented after fall, head injury patient was a code coag called upon arrival patient is on Brilinta. Patient CT was negative for acute process patient [facility]. Undiagnosed new problem with uncertain prognosis? @ -No Drug Therapy requiring intensive monitoring for toxicity (Heparin, Nitro, Insulin, Cardizem)? @ -No Were any procedures done? @ -No Diagnosis/symptom? @ -Close head injury Acute, or Chronic, or Acute on Chronic? @ -Acute Uncomplicated (without systemic symptoms) or Complicated (systemic symptoms)? @ -Uncomplicated Side effects of treatment? @ -No Exacerbation, Progression, or Severe Exacerbation? @ -No Poses a threat to life or bodily function? How? (Chest pain, USA, ID, pneumonia, PE, COPD, DKA, ARF, appy, cholecystitis, CVA, Diverticulitis, Homicidal, Suicidal, threat to staff... and all critical care pts) @ -No Disposition Clinical Impression: Closed head injury Disposition: HOME SELF-CARE Condition: Stable Additional Instructions: Please return to the Emergency Department if symptoms worsen or any other concerns. Is patient prescribed a controlled substance at d/c from ED?: No Referrals: Janeth Miller DO [Primary Care Provider] - 1-2 days Time of Disposition: 08:52
--- NOTE | 2024-08-24 08:43 | CT ---
EXAMINATION TYPE: CT brain cspine wo con DATE OF EXAM: 08/24/2024 8:19 AM COMPARISON: None. CLINICAL INDICATION: Female, 69 years old with history of pain; Fall, struck head, on blood thinners TECHNIQUE: Brain: Multiple axial CT images of the brain were obtained without IV contrast. Cspine: Axial CT images from the skull base to the inferior aspect of T2 we obtained without intraven ous contrast. Coronal and sagittal reformatted images were also reviewed. . CT DLP: 1217.6 mGycm, Automated exposure control for dose reduction was used. FINDINGS: Brain: Extra-axial spaces: No abnormal extra-axial fluid collections. Ventricular system: Dilatation in proportion to cerebral atrophy. Cerebral parenchyma: Cerebral atrophy. No acute intraparenchymal hemorrhage or mass effect. The cuello -white junction is well differentiated. Scattered hypoattenuating areas are seen within the white mat ter. Cerebellum: Unremarkable. Mass effect: No evidence of midline shift. Intracranial vasculature: Atherosclerotic calcifications of the intracranial vessels. Soft tissues: Normal. Calvarium/osseous structures: No depressed skull fracture. Paranasal sinuses and mastoid air cells: Clear. Visualized orbits: Orbital contents are intact. Cervical spine: Fracture: None. Osseous structures: Multilevel degenerative disc disease changes with endplate spurring and disc oste ophyte complex's. Vertebral alignment: Within normal limits. Spinal canal/Neural Foramina: No evidence of significant spinal canal narrowing. No evidence for sign ificant neural foraminal stenosis. Neck soft tissues: Prevertebral soft tissues are within normal limits. Other: The airway is patent. The lung apices are clear. IMPRESSION: 1. No acute intracranial process. 2. Nonspecific white matter changes, likely secondary to chronic small vessel ischemic disease. 3. No evidence of cervical spine fracture. 4. Mild multilevel degenerative disc disease. [facility], , 08/24/2024 8:40 AM
[2024-08-24 09:38] VITALS: BP 111/42; PULSE 68
== END 2024-08-24 10:23 | disposition home or self-care (01) ==
LOC: EC 07:54
DX: S09.90XA Unspecified injury of head, initial encounter (principal); F17.200 Nicotine dependence, unspecified, uncomplicated; W22.03XA Walked into furniture, initial encounter
CPT/HCPCS: 70450; 72125; 99284

== ENCOUNTER 2024-09-08 12:50 | Inpatient (IN) | payer MEDICARE ==
[2024-09-08] MEDS ORDERED: VANCOMYCIN IV PER PHARMACY 1 EACH MISC MISCELLANE PRN (12:59)
--- NOTE | 2024-09-08 13:04 | ED ---
General Adult HPI - General Chief complaint: Fever Stated complaint: fever Time Seen by Provider: 09/08/24 12:58 Source: patient, EMS, RN notes reviewed Mode of arrival: EMS Limitations: altered mental status - History of Present Illness Initial comments: Patient is a 69-year-old female present to the emergency department with concerns for not feeling well. Patient is a poor historian. Patient complains of feeling thirsty. Patient does state she does have an upset stomach. Patient states she has pain everywhere. Patient did have reported nausea and vomiting this morning. Patient also had fever reported this morning with rectal Tylenol given at 11 AM - Related Data Home Medications Medication Instructions Recorded Confirmed Acetaminophen [Tylenol 8 Hour] 650 mg PO Q6H PRN 07/24/24 08/07/24 Budesonide/Formoterol Fumarate 2 puff INHALATION RT-BID 07/24/24 08/07/24 [Symbicort 80-4.5 Mcg Inhaler] Mupirocin 2% Oint [Bactroban 2% 1 applic TOPICAL MOWEFR@2100 07/24/24 08/07/24 Oint] Naloxone HCl 0.4 mg IM DIRECTED PRN 07/24/24 08/07/24 Naloxone HCl [Narcan] 4 mg NASAL DIRECTED PRN 07/24/24 08/07/24 Omeprazole Magnesium [PriLOSEC OTC] 40 mg PO DAILY 07/24/24 08/07/24 Sacubitril/Valsartan [Entresto 24 1 tab PO BID 07/24/24 08/07/24 mg-26 mg Tablet] Sennosides [Senokot] 8.6 mg PO BID 07/24/24 08/07/24 Ticagrelor [Brilinta] 90 mg PO BID 07/24/24 08/07/24 Tiotropium 2.5 Mcg/Puff [Spiriva 2 puff INHALATION RT-DAILY 07/24/24 08/07/24 Respimat 2.5 Mcg] polyethylene glycoL 3350 [Miralax] 17 gm PO DAILY 07/24/24 08/07/24 Aspirin 81 mg PO HS 08/07/24 08/07/24 Folic Acid 0.8 mg PO HS 08/07/24 08/07/24 Furosemide [Lasix] 20 mg PO DAILY 08/07/24 08/07/24 Mirtazapine [Remeron] 15 mg PO HS 08/07/24 08/07/24 Senior Tabs Multivitamin 1 tab PO HS 08/07/24 08/07/24 Thiamine [Vitamin B-1] 100 mg PO BID 08/07/24 08/07/24 methocarbamoL [Robaxin-750] 750 mg PO QID PRN 08/07/24 08/07/24 oxyCODONE HCL [oxyCODONE HCL (IR)] 5 mg PO Q4H PRN 08/07/24 08/07/24 Previous Rx's Medication Instructions Recorded Nicotine 14Mg/24Hr Patch [Habitrol] 1 patch TRANSDERM DAILY #42 patch 02/20/24 Spironolactone [Aldactone] 25 mg PO DAILY #30 tab 02/24/24 Dapagliflozin Propanediol [Farxiga] 10 mg PO DAILY tab 08/03/24 Metoprolol Succinate (ER) [Toprol 12.5 mg PO DAILY tab 08/03/24 XL] Pregabalin [Lyrica] 50 mg PO TID@0700,1300,1900 #6 cap 08/04/24 Allergies Allergy/AdvReac Type Severity Reaction Status Date / Time No Known Allergies Allergy Verified 09/08/24 12:57 Review of Systems ROS Statement: Those systems with pertinent positive or pertinent negative responses have been documented in the HPI. ROS Other: All systems not noted in ROS Statement are negative. Constitutional: Reports: as per HPI, fever Eyes: Denies: eye pain ENT: Denies: ear pain Respiratory: Denies: dyspnea Endocrine: Reports: fatigue Gastrointestinal: Reports: nausea, vomiting Skin: Reports: as per HPI, rash (Leg wounds from amputation) Past Medical History Past Medical History: Coronary Artery Disease (CAD), CVA/TIA, GERD/Reflux, Hyperlipidemia, Hypertension, Myocardial Infarction (GA), Osteoarthritis (OA), Skin Disorder Additional Past Medical History / Comment(s): hx migraines, TIA- FRACTURED RIGHT ANKLE 1/2 CAST, right AKA, left lower extremity revascularization and stenting, Left AKA Last Myocardial Infarction Date:: History of Any Multi-Drug Resistant Organisms: MRSA Date of last positivie culture/infection: 02/21/18 MDRO Source:: NECK Past Surgical History: Heart Catheterization With Stent, Orthopedic Surgery, Tubal Ligation Additional Past Surgical History / Comment(s): left ankle surgery fracture- pins and plate inserted. 2 cardiac stents, neck surgery, left lower extremity revascularization and stenting and right AKA Past Anesthesia/Blood Transfusion Reactions: No Reported Reaction Date of Last Stent Placement:: 09/2016 Past Psychological History: No Psychological Hx Reported Smoking Status: Current every day smoker Past Alcohol Use History: Occasional Past Drug Use History: None Reported - Past Family History Mother Family Medical History: Hypertension, Myocardial Infarction (GA) Sister(s) Family Medical History: CVA/TIA, Hypertension, Myocardial Infarction (GA) Father Family Medical History: Cancer Additional Family Medical History / Comment(s): colon CA Brother(s) Family Medical History: Coronary Artery Disease (CAD), CVA/TIA Additional Family Medical History / Comment(s): CABG General Exam Limitations: altered mental status General appearance: alert, in no apparent distress Head exam: Present: normocephalic Eye exam: Present: normal appearance ENT exam: Present: normal oropharynx Neck exam: Present: normal inspection Respiratory exam: Present: normal lung sounds bilaterally Cardiovascular Exam: Present: regular rate, normal rhythm GI/Abdominal exam: Present: soft. Absent: tenderness Extremities exam: Present: normal inspection (Bilateral AKA with wounds with significant foul odor and purulent drainage) Neurological exam: Present: alert Psychiatric exam: Present: normal affect, normal mood Skin exam: Present: other (Leg wounds with foul odor and purulent drainage) Course Vital Signs 09/08/24 09/08/24 12:52 14:08 Temperature 100.2 F H Pulse Rate 65 101 H Respiratory 20 20 Rate Blood Pressure 120/64 110/46 O2 Sat by Pulse 95 96 Oximetry EKG Findings - EKG Results: EKG: interpreted by ERMD (Left axis. Q wave V1 with ST change. Previous EKG reviewed dated 08/07/2024), sinus rhythm EKG shows: tachycardia Medical Decision Making - Medical Decision Making Was pt. sent in by a medical professional or institution (, PA, WEB ADMINISTRATOR, urgent care, hospital, or snf...) When possible be specific @ -Patient sent in by nursing facility Did you speak to anyone other than the patient for history (EMS, parent, family, police, friend...)? What history was obtained from this source @ -EMS helps provide history as patient is a poor historian Did you review nursing and triage notes (agree or disagree)? Why? @ -I reviewed and agree with nursing and triage notes Were old charts reviewed (outside hosp., previous admission, EMS record, old EKG, old radiological studies, urgent care reports/EKG's, snf records)? Report findings @ -Previous EKG reviewed, see above. Previous chest x-ray reviewed Differential Diagnosis (chest pain, altered mental status, abdominal pain women, abdominal pain men, vaginal bleeding, weakness, fever, dyspnea, syncope, headac he, dizziness, GI bleed, back pain, seizure, CVA, palpatations, mental health, musculoskeletal)? @ -MDM differential sepsis differential Fever: Pneumonia, viral URI, endocarditis, myocarditis, pericarditis, otitis, sinusitis, peritonsillar Abscess, retropharyngeal Abscess, epiglottitis, peritonitis, appendicitis, Pam cystitis, diverticulitis, hepatitis, colitis, UTI, PID, TOA, pyelonephritis, prostatitis, epididymitis, meningitis, encephalitis, pulmonary embolism, CVA, thyroid storm, pancreatitis, adrenal crisis, cavernous sinus thrombosis, this is not meant to be an all-inclusive list. EKG interpreted by me (3pts min.). @ -As above X-rays interpreted by me (1pt min.). @ -Chest x-ray shows increased clearing of right costophrenic angle CT interpreted by me (1pt min.). @ -None done U/S interpreted by me (1pt. min.). @ -None done What testing was considered but not performed or refused? (CT, X-rays, U/S, labs)? Why? @ -None What meds were considered but not given or refused? Why? @ -None Did you discuss the management of the patient with other professionals (professionals i.e. Dr., PA, WEB ADMINISTRATOR, lab, RT, psych nurse, social work associate, corrections unit supervisor, teacher, protective services officer, disability case manager)? Give summary @ -[facility] will admit covering Dr. Miller Was smoking cessation discussed for >3mins.? @ -No Was critical care preformed (if so, how long)? @ -33 minutes critical care Were there social determinants of health that impacted care today? How? (Homelessness, low income, unemployed, alcoholism, drug addiction, transportation, low edu. Level, literacy, decrease access to med. care, longterm, rehab)? @ -No Was there de-escalation of care discussed even if they declined (Discuss DNR or withdrawal of care, Hospice)? DNR status @ -No What co-morbidities impacted this encounter? (DM, HTN, Smoking, COPD, CAD, Cancer, CVA, ARF, Chemo, Hep., AIDS, mental health diagnosis, sleep apnea, morbid obesity)? @ -History of bilateral AKA Was patient admitted / discharged? Hospital course, mention meds given and route, prescriptions, significant lab abnormalities, going to OR and other pertinent info. @ -Patient presents with history of bilateral AKA with fever. Wounds appear infected bilaterally. Patient will be admitted. Admission orders written. There is concern for sepsis diagnosed at 1400. Blood culture, lactic acid, and IV antibiotics have all been ordered. Undiagnosed new problem with uncertain prognosis? @ -No Drug Therapy requiring intensive monitoring for toxicity (Heparin, Nitro, Insulin, Cardizem)? @ -No Were any procedures done? @ -No Diagnosis/symptom? @ -Sepsis, cellulitis Acute, or Chronic, or Acute on Chronic? @ -Acute, acute Uncomplicated (without systemic symptoms) or Complicated (systemic symptoms)? @ -Default Side effects of treatment? @ -No Exacerbation, Progression, or Severe Exacerbation? @ -No Poses a threat to life or bodily function? How? (Chest pain, USA, GA, pneumonia, PE, COPD, DKA, ARF, appy, cholecystitis, CVA, Diverticulitis, Homicidal, Suicidal, threat to staff... and all critical care pts) @ -Threat to multiple organs - Lab Data Result diagrams: 09/08/24 13:17 09/08/24 13:17 Lab Results 09/08/24 09/08/24 09/08/24 Range/Units 13:17 13:17 13:17 WBC 11.3 H (3.8-10.6) k/uL RBC 3.20 L (3.80-5.40) m/uL Hgb 9.8 L (11.4-16.0) gm/dL Hct 30.7 L (34.0-46.0) % MCV 95.8 (80.0-100.0) fL MCH 30.5 (25.0-35.0) pg MCHC 31.9 (31.0-37.0) g/dL RDW 16.8 H (11.5-15.5) % Plt Count 270 (150-450) k/uL MPV 7.1 Neutrophils % 96 % Lymphocytes % 2 % Monocytes % 2 % Eosinophils % 0 % Basophils % 0 % Neutrophils # 10.9 H (1.3-7.7) k/uL Lymphocytes # 0.2 L (1.0-4.8) k/uL Monocytes # 0.2 (0-1.0) k/uL Eosinophils # 0.0 (0-0.7) k/uL Basophils # 0.0 (0-0.2) k/uL Hypochromasia Moderate Anisocytosis Slight PT 12.0 (10.0-12.5) sec INR 1.1 (<1.2) APTT 22.0 (22.0-30.0) sec Sodium 143 (137-145) mmol/L Potassium 4.5 (3.5-5.1) mmol/L Chloride 108 H (98-107) mmol/L Carbon Dioxide 20 L (22-30) mmol/L Anion Gap 15 mmol/L BUN 46 H (7-17) mg/dL Creatinine 1.13 H (0.52-1.04) mg/dL Est GFR (CKD-EPI)AfAm 57 (>60 ml/min/1.73 sqM) Est GFR (CKD-EPI)NonAf 50 (>60 ml/min/1.73 sqM) Glucose 167 H (74-99) mg/dL Plasma Lactic Acid Pradeep (0.7-2.0) mmol/L Calcium 9.4 (8.4-10.2) mg/dL Total Bilirubin 2.3 H (0.2-1.3) mg/dL AST 981 H (14-36) U/L ALT 448 H (4-34) U/L Alkaline Phosphatase 740 H (38-126) U/L Troponin I (0.000-0.034) ng/mL Total Protein 7.8 (6.3-8.2) g/dL Albumin 3.6 (3.5-5.0) g/dL 09/08/24 09/08/24 Range/Units 13:17 13:17 WBC (3.8-10.6) k/uL RBC (3.80-5.40) m/uL Hgb (11.4-16.0) gm/dL Hct (34.0-46.0) % MCV (80.0-100.0) fL MCH (25.0-35.0) pg MCHC (31.0-37.0) g/dL RDW (11.5-15.5) % Plt Count (150-450) k/uL MPV Neutrophils % % Lymphocytes % % Monocytes % % Eosinophils % % Basophils % % Neutrophils # (1.3-7.7) k/uL Lymphocytes # (1.0-4.8) k/uL Monocytes # (0-1.0) k/uL Eosinophils # (0-0.7) k/uL Basophils # (0-0.2) k/uL Hypochromasia Anisocytosis PT (10.0-12.5) sec INR (<1.2) APTT (22.0-30.0) sec Sodium (137-145) mmol/L Potassium (3.5-5.1) mmol/L Chloride (98-107) mmol/L Carbon Dioxide (22-30) mmol/L Anion Gap mmol/L BUN (7-17) mg/dL Creatinine (0.52-1.04) mg/dL Est GFR (CKD-EPI)AfAm (>60 ml/min/1.73 sqM) Est GFR (CKD-EPI)NonAf (>60 ml/min/1.73 sqM) Glucose (74-99) mg/dL Plasma Lactic Acid Pradeep 2.9 H* (0.7-2.0) mmol/L Calcium (8.4-10.2) mg/dL Total Bilirubin (0.2-1.3) mg/dL AST (14-36) U/L ALT (4-34) U/L Alkaline Phosphatase (38-126) U/L Troponin I 0.044 H* (0.000-0.034) ng/mL Total Protein (6.3-8.2) g/dL Albumin (3.5-5.0) g/dL Critical Care Time Critical Care Time: Yes Disposition Clinical Impression: Bilateral lower leg cellulitis, Sepsis Disposition: ADMITTED IP TO THIS [facility] Condition: Serious Is patient prescribed a controlled substance at d/c from ED?: No Referrals: [place],Janeth L, DO [Primary Care Provider] - 1-2 days Time of Disposition: 14:27
[2024-09-08 13:36] LABS: Anisocytosis Slight; Basophils % (A) 0 %; Eosinophils % (A) 0 %; HCT 30.7 % (34.0-46.0); HGB 9.8 gm/dL (11.4-16.0); Hypochromasia Moderate; Lymphocytes # (A) 0.2 k/uL (1.0-4.8); Lymphocytes % (A) 2 %; MCH 30.5 pg (25.0-35.0); MCHC 31.9 g/dL (31.0-37.0); MCV 95.8 fL (80.0-100.0); Mean Platelet Volume 7.1; Monocytes # (A) 0.2 k/uL (0-1.0); Monocytes % (A) 2 %; Neutrophils # (A) 10.9 k/uL (1.3-7.7); Neutrophils % (A) 96 %; Platelet Count 270 k/uL (150-450); RDW 16.8 % (11.5-15.5); WBC 11.3 k/uL (3.8-10.6)
[2024-09-08 13:46] LABS: ALT 448 U/L (4-34); African American GFR (CKD) 57 (>60 ml/min/1.73 sqM); Albumin 3.6 g/dL (3.5-5.0); Anion Gap 15 mmol/L; Blood Urea Nitrogen 46 mg/dL (7-17); Calcium 9.4 mg/dL (8.4-10.2); Carbon Dioxide 20 mmol/L (22-30); Chloride 108 mmol/L (98-107); Glucose 167 mg/dL (74-99); Non-African American GFR(CKD) 50 (>60 ml/min/1.73 sqM); Sodium 143 mmol/L (137-145); Total Bilirubin 2.3 mg/dL (0.2-1.3); Total Protein 7.8 g/dL (6.3-8.2)
[2024-09-08] MEDS: LACTATED RINGERS 1,000 ML IV SCH (13:46)
[2024-09-08 13:54] LABS: Potassium 4.5 mmol/L (3.5-5.1)
[2024-09-08 13:55] LABS: AST 981 U/L (14-36); Alkaline Phosphatase 740 U/L (38-126); INR 1.1 (<1.2)
[2024-09-08] MEDS: IBUPROFEN IV 400 MG in SODIUM CHLORIDE 0.9% 250 ML IV STA (13:56)
[2024-09-08] MEDS: VANCOMYCIN 500 MG in SODIUM CHLORIDE 0.9% 250 ML IVPB STA (14:05)
[2024-09-08] MEDS ORDERED: ACETAMINOPHEN TAB 325 MG TAB PO PRN (14:31)
[2024-09-08] MEDS ORDERED: NALOXONE 0.4 MG/ML 1 ML VIAL IV PRN (14:31)
--- NOTE | 2024-09-08 14:34 | XR ---
EXAMINATION TYPE: XR chest 1V portable DATE OF EXAM: 09/08/2024 2:18 PM COMPARISON: 08/09/2024 CLINICAL INDICATION: Female, 69 years old with history of Fever, , FINDINGS: Heart is mildly enlarged. Atherosclerotic arch calcifications. Mild interstitial density. There is a trace right pleural effusion with patchy right basilar opacity. Hyperinflation. Effusion decreased fr om prior. IMPRESSION: 1. Correlate to exclude CHF with mild pulmonary vascular congestion. Background COPD. 2. A trace right pleural effusion remains, improved from prior. However, some adjacent patchy atelect asis versus infiltrate is noted. [facility], , 09/08/2024 2:32 PM
--- NOTE | 2024-09-08 15:33 | XR ---
EXAMINATION TYPE: XR femur bilateral DATE OF EXAM: 09/08/2024 COMPARISON: NONE CLINICAL INDICATION: Female, 69 years old with pain, history of stump wounds; TECHNIQUE: 2 views each side FINDINGS: On the right, there is an cjjrw-qba-vgmj amputation at the level of the proximal femoral sh aft. Stump wound is suggested. There is haziness to the osteotomy margin without mohamud lytic destruct ion. On the left, additional adfml-zun-gxdn amputation at the distal femoral shaft. Vascular stent is note d. Stump wound is suggested but the osteotomy margin appears sharp. IMPRESSION: 1. Right: Emwgh-alv-ngrx amputation at the level of the proximal femoral shaft. There is a stump woun d and hazy indistinctness to the osteotomy margin suspicious for an early contiguous osteomyelitis. 2. Left: Jxjvg-xvb-cyow amputation at the level of the distal femoral shaft. There is a stump wound b ut the osteotomy margin appears sharp and normal. [facility], , 09/08/2024 3:30 PM
[2024-09-08] MEDS: LACTATED RINGERS 1,000 ML BAG IV STA ×2 (15:47→17:52)
[2024-09-08] MEDS ORDERED: methocarbamoL 750 MG TAB PO PRN (16:01)
[2024-09-08] MEDS ORDERED: SENNOSIDES 8.6 MG TAB PO PRN (16:01)
[2024-09-08] MEDS ORDERED: polyethylene glycoL 3350 17 GM POWD.PACK PO PRN (16:01)
[2024-09-08 16:50] LABS: Glucose,Whole Blood 110 mg/dL (70-110)
[2024-09-08] MEDS: NOREPINEPHRINE 4 MG in SODIUM CHLORIDE 0.9% 250 ML IV SCH (17:20)
--- NOTE | 2024-09-08 17:50 | ED ---
Medical Decision Making - Medical Decision Making Case also discussed with Dr. Viveros who will consult for critical care. Case also discussed with Dr. Posadas - Lab Data Result diagrams: 09/08/24 13:17 09/08/24 13:17 Lab Results 09/08/24 09/08/24 09/08/24 Range/Units 13:17 13:17 13:17 WBC 11.3 H (3.8-10.6) k/uL RBC 3.20 L (3.80-5.40) m/uL Hgb 9.8 L (11.4-16.0) gm/dL Hct 30.7 L (34.0-46.0) % MCV 95.8 (80.0-100.0) fL MCH 30.5 (25.0-35.0) pg MCHC 31.9 (31.0-37.0) g/dL RDW 16.8 H (11.5-15.5) % Plt Count 270 (150-450) k/uL MPV 7.1 Neutrophils % 96 % Lymphocytes % 2 % Monocytes % 2 % Eosinophils % 0 % Basophils % 0 % Neutrophils # 10.9 H (1.3-7.7) k/uL Lymphocytes # 0.2 L (1.0-4.8) k/uL Monocytes # 0.2 (0-1.0) k/uL Eosinophils # 0.0 (0-0.7) k/uL Basophils # 0.0 (0-0.2) k/uL Hypochromasia Moderate Anisocytosis Slight PT 12.0 (10.0-12.5) sec INR 1.1 (<1.2) APTT 22.0 (22.0-30.0) sec Sodium 143 (137-145) mmol/L Potassium 4.5 (3.5-5.1) mmol/L Chloride 108 H (98-107) mmol/L Carbon Dioxide 20 L (22-30) mmol/L Anion Gap 15 mmol/L BUN 46 H (7-17) mg/dL Creatinine 1.13 H (0.52-1.04) mg/dL Est GFR (CKD-EPI)AfAm 57 (>60 ml/min/1.73 sqM) Est GFR (CKD-EPI)NonAf 50 (>60 ml/min/1.73 sqM) Glucose 167 H (74-99) mg/dL Lactic Ac Sepsis Rflx Plasma Lactic Acid Pradeep (0.7-2.0) mmol/L Calcium 9.4 (8.4-10.2) mg/dL Total Bilirubin 2.3 H (0.2-1.3) mg/dL AST 981 H (14-36) U/L ALT 448 H (4-34) U/L Alkaline Phosphatase 740 H (38-126) U/L Troponin I (0.000-0.034) ng/mL Total Protein 7.8 (6.3-8.2) g/dL Albumin 3.6 (3.5-5.0) g/dL 09/08/24 09/08/24 09/08/24 Range/Units 13:17 13:17 13:56 WBC (3.8-10.6) k/uL RBC (3.80-5.40) m/uL Hgb (11.4-16.0) gm/dL Hct (34.0-46.0) % MCV (80.0-100.0) fL MCH (25.0-35.0) pg MCHC (31.0-37.0) g/dL RDW (11.5-15.5) % Plt Count (150-450) k/uL MPV Neutrophils % % Lymphocytes % % Monocytes % % Eosinophils % % Basophils % % Neutrophils # (1.3-7.7) k/uL Lymphocytes # (1.0-4.8) k/uL Monocytes # (0-1.0) k/uL Eosinophils # (0-0.7) k/uL Basophils # (0-0.2) k/uL Hypochromasia Anisocytosis PT (10.0-12.5) sec INR (<1.2) APTT (22.0-30.0) sec Sodium (137-145) mmol/L Potassium (3.5-5.1) mmol/L Chloride (98-107) mmol/L Carbon Dioxide (22-30) mmol/L Anion Gap mmol/L BUN (7-17) mg/dL Creatinine (0.52-1.04) mg/dL Est GFR (CKD-EPI)AfAm (>60 ml/min/1.73 sqM) Est GFR (CKD-EPI)NonAf (>60 ml/min/1.73 sqM) Glucose (74-99) mg/dL Lactic Ac Sepsis Rflx Y Plasma Lactic Acid Pradeep 2.9 H* (0.7-2.0) mmol/L Calcium (8.4-10.2) mg/dL Total Bilirubin (0.2-1.3) mg/dL AST (14-36) U/L ALT (4-34) U/L Alkaline Phosphatase (38-126) U/L Troponin I 0.044 H* (0.000-0.034) ng/mL Total Protein (6.3-8.2) g/dL Albumin (3.5-5.0) g/dL Disposition Clinical Impression: Bilateral lower leg cellulitis, Sepsis Disposition: ADMITTED IP TO THIS [facility] Condition: Serious Is patient prescribed a controlled substance at d/c from ED?: No Procedures - Central Line Placement Right Femoral Consent Obtained: emergent situation Prep: mask, gown, gloves Central Line Prep: Chlorhexidine scrub Ultrasound Used for Placement: Yes Central Line Lumen Inserted: triple Central Line Position: good blood return, all ports aspirated, flushed, capped, sutured in place with 3-0 nylon Dressing Applied: Tegaderm Patient Tolerated Procedure: well Complications: none - Sepsis Sepsis Focused Exam #1 Time Sepsis Criteria Met: 14:00 Sepsis Focused Exam Date: 09/08/24 Sepsis Focused Exam Time: 17:49 Sepsis Focused Exam Complete: Yes Vital Signs & RN Notes Reviewed: Yes Capillary Refill: < 2 Seconds: Fingers, Toes Peripheral Pulses: Weak: Radial (R), Radial (L) Skin Color: Normal for Patient Respiratory Exam: normal lung sounds Cardiovascular Exam: regular rate, normal rhythm
[2024-09-08] MEDS: NOREPINEPHRINE 32 MG in SODIUM CHLORIDE 0.9% 218 ML IV SCH (17:58)
[2024-09-08] MEDS: PREGABALIN 50 MG CAP PO SCH (18:10)
[2024-09-08] MEDS: MIDODRINE 5 MG TAB PO SCH (18:10)
[2024-09-08] MEDS: SYMBICORT 80-4.5 MCG INHALER INHALATION SCH (20:21)
[2024-09-08] MEDS: MIRTAZAPINE 15 MG TAB PO SCH (21:07)
[2024-09-08] MEDS: DOCUSATE 100 MG CAP PO SCH (21:07)
[2024-09-08] MEDS: ASPIRIN 81 MG PO SCH (21:07)
[2024-09-08] MEDS: ATORVASTATIN 80 MG TAB PO SCH (21:07)
[2024-09-08] MEDS: SACUBITRIL/VALSARTAN 24 MG-26 MG TABLET PO SCH (21:07)
[2024-09-08] MEDS: TICAGRELOR 90 MG TAB PO SCH (21:07)
[2024-09-09 06:44] LABS: Glucose,Whole Blood 98 mg/dL (70-110)
[2024-09-09 07:09] LABS: Appearance,Urine Turbid (Clear); Bacteria,Urine Rare /hpf; Bilirubin,Urine Negative (Negative); Blood,Urine Large (Negative); Budding Yeast,Urine Moderate /hpf; Color,Urine Yellow; Glucose,Urine (UA) Negative (Negative); Ketones,Urine Negative (Negative); Leukocyte Esterase,Urine Large (Negative); Nitrite,Urine Negative (Negative); Protein,Urine 1+ (Negative); RBC,Urine 17 /hpf (0-5); Specific Gravity,Urine 1.018 (1.001-1.035); Squamous Epithelial Cell,Urine 2 /hpf (0-4); WBC,Urine >182 /hpf (0-5)
--- NOTE | 2024-09-09 07:22 | P.CONS ---
History of Present Illness - Reason for Consult Consult date: 09/08/24 Leg wounds, cellulitis Requesting physician: Heri Hernandez - Chief Complaint Fever x 1 day - History of Present Illness Patient is a 69-year-old female with a past medical history significant for coronary artery disease hypertension hyperlipidemia ND reflux in this patient w ho did have right bmdms-pmc-qpkg amputation done at [facility] subsequently left ccfpl-zee-wpwz amputation at [facility] patient subsequently did have multiple admission to this facility for wound dehiscence and possible infection and on the last admission the patient was t ransferred to [facility] to be evaluated by her vascular surgeon at this point without clear what has happened at that facility patient not transferred from the local senior living concerning for fever that apparently started the day of presentation to the hospital and apparently the patient was complaining of some nausea and vomiting on arrival to the ER patient did have a temperature of 100.6 degrees for ongoing patient was tachycardic mildly hypertensive and hypoxic currently on 2 L nasal cannula oxygen patient did have a white count of 11.3 BUN/creatinine has been mildly elevated liver enzymes are elevated and urine has been positive patient did have a chest x-ray correlate for mild CHF trace right effusion femoral x-ray right ghwpl-tka-tgqn amputation stump wound and hazy indistinct spots to the ostomy margin suspicious for early contagious osteomyelitis on the left side there was no evidence of any bony abnormality local cultures has been obtained patient was started on vancomycin received a dose of ceftriaxone infectious disease was consulted for further management of antibiotic therapy, most information has been obtained from review the chart and talking to nursing staff the patient could not provide any history no family at the bed side Review of Systems Positive points has been mentioned in HPI complete review could not be obtained because of his underlying mental status Past Medical History Past Medical History: Coronary Artery Disease (CAD), CVA/TIA, GERD/Reflux, Hyperlipidemia, Hypertension, Myocardial Infarction (ND), Osteoarthritis (OA), Skin Disorder Additional Past Medical History / Comment(s): hx migraines, TIA- FRACTURED RIGHT ANKLE 1/2 CAST, right AKA, left lower extremity revascularization and stenting, Left AKA Last Myocardial Infarction Date:: History of Any Multi-Drug Resistant Organisms: MRSA Year Discovered:: 02/21/18 MDRO Source:: NECK Past Surgical History: Heart Catheterization With Stent, Orthopedic Surgery, Tubal Ligation Additional Past Surgical History / Comment(s): left ankle surgery fracture- pins and plate inserted. 2 cardiac stents, neck surgery, left lower extremity revascularization and stenting and right AKA Past Anesthesia/Blood Transfusion Reactions: No Reported Reaction Date of Last Stent Placement:: 09/2016 Past Psychological History: No Psychological Hx Reported Smoking Status: Current every day smoker Past Alcohol Use History: Occasional Past Drug Use History: None Reported - Past Family History Mother Family Medical History: Hypertension, Myocardial Infarction (ND) Sister(s) Family Medical History: CVA/TIA, Hypertension, Myocardial Infarction (ND) Father Family Medical History: Cancer Additional Family Medical History / Comment(s): colon CA Brother(s) Family Medical History: Coronary Artery Disease (CAD), CVA/TIA Additional Family Medical History / Comment(s): CABG Medications and Allergies Home Medications Medication Instructions Recorded Confirmed Type Acetaminophen [Tylenol 8 Hour] 650 mg PO Q6H PRN 07/24/24 09/08/24 History Naloxone HCl 0.4 mg IM ONCE PRN 07/24/24 09/08/24 History Naloxone HCl [Narcan] 4 mg NASAL ONCE PRN 07/24/24 09/08/24 History Omeprazole Magnesium [PriLOSEC OTC] 40 mg PO DAILY 07/24/24 09/08/24 History Sacubitril/Valsartan [Entresto 24 1 tab PO BID 07/24/24 09/08/24 History mg-26 mg Tablet] Sennosides [Senokot] 8.6 mg PO Q12H PRN 07/24/24 09/08/24 History Ticagrelor [Brilinta] 90 mg PO BID 07/24/24 09/08/24 History polyethylene glycoL 3350 [Miralax] 17 gm PO DAILY PRN 07/24/24 09/08/24 History Dapagliflozin Propanediol [Farxiga] 10 mg PO DAILY tab 08/03/24 09/08/24 Rx Metoprolol Succinate (ER) [Toprol 12.5 mg PO DAILY tab 08/03/24 09/08/24 Rx XL] Pregabalin [Lyrica] 50 mg PO TID@0700,1300,1900 #6 cap 08/04/24 09/08/24 Rx Aspirin 81 mg PO HS 08/07/24 09/08/24 History Furosemide [Lasix] 20 mg PO DAILY 08/07/24 09/08/24 History Mirtazapine [Remeron] 15 mg PO HS 08/07/24 09/08/24 History methocarbamoL [Robaxin-750] 750 mg PO QID PRN 08/07/24 09/08/24 History Atorvastatin [Lipitor] 80 mg PO HS 09/08/24 09/08/24 History Diphenhydramine Hcl Injection 25 mg IM Q4H PRN 09/08/24 09/08/24 History 50mg/Ml Docusate [Colace] 100 mg PO BID 09/08/24 09/08/24 History Fluticasone Propion/Salmeterol 1 puff INHALATION RT-BID@0700,1900 09/08/24 09/08/24 History [Fluticasone-Salmeterol 100-50] Midodrine HCl [ProAmantine] 2.5 mg PO TID@07,13,19 09/08/24 09/08/24 History Ondansetron [Zofran] 4 mg PO Q8HR PRN 09/08/24 09/08/24 History Spironolactone [Aldactone] 12.5 mg PO DAILY 09/08/24 09/08/24 History Umeclidinium [place] [Incruse 1 puff INHALATION RT-DAILY 09/08/24 09/08/24 History Ellipta] traMADol HCL 50 mg PO Q6H PRN 09/08/24 09/08/24 History Allergies Allergy/AdvReac Type Severity Reaction Status Date / Time No Known Allergies Allergy Verified 09/08/24 14:51 Physical Exam Vitals: Vital Signs Temp Pulse Resp BP Pulse Ox 09/08/24 14:08 101 H 20 110/46 96 09/08/24 12:52 100.2 F H 65 20 120/64 95 Intake and Output 09/08/24 09/08/24 09/08/24 06:59 14:59 22:59 Other: Weight 30.617 kg GENERAL DESCRIPTION: Elderly female lying in bed, no distress. No tachypnea or accessory muscle of respiration use. HEENT: Shows Pallor , no scleral icterus. Oral mucous membrane is dry. NECK: Trachea central, no thyromegaly. LUNGS: Unlabored breathing. Clear to auscultation anteriorly. HEART: S1, S2, regular rate and rhythm. No loud murmur ABDOMEN: Soft, no tenderness , guarding or rigidity, no organomegaly EXTREMITIES: Patient did have a wound to the bilateral AKA stump nonhealing with slough tissue and foul-smelling drainage SKIN: No rash, no masses palpable. NEUROLOGICAL: The patient is lethargic orientation could not be determined Results CBC & Chem 7: 09/09/24 09:17 09/09/24 09:17 Labs: Abnormal Lab Results - Last 24 Hours (Table) 09/08/24 09/08/24 09/08/24 Range/Units 13:17 13:17 13:17 WBC 11.3 H (3.8-10.6) k/uL RBC 3.20 L (3.80-5.40) m/uL Hgb 9.8 L (11.4-16.0) gm/dL Hct 30.7 L (34.0-46.0) % RDW 16.8 H (11.5-15.5) % Neutrophils # 10.9 H (1.3-7.7) k/uL Lymphocytes # 0.2 L (1.0-4.8) k/uL Chloride 108 H (98-107) mmol/L Carbon Dioxide 20 L (22-30) mmol/L BUN 46 H (7-17) mg/dL Creatinine 1.13 H (0.52-1.04) mg/dL Glucose 167 H (74-99) mg/dL Plasma Lactic Acid Pradeep 2.9 H* (0.7-2.0) mmol/L Total Bilirubin 2.3 H (0.2-1.3) mg/dL AST 981 H (14-36) U/L ALT 448 H (4-34) U/L Alkaline Phosphatase 740 H (38-126) U/L Troponin I (0.000-0.034) ng/mL 09/08/24 Range/Units 13:17 WBC (3.8-10.6) k/uL RBC (3.80-5.40) m/uL Hgb (11.4-16.0) gm/dL Hct (34.0-46.0) % RDW (11.5-15.5) % Neutrophils # (1.3-7.7) k/uL Lymphocytes # (1.0-4.8) k/uL Chloride (98-107) mmol/L Carbon Dioxide (22-30) mmol/L BUN (7-17) mg/dL Creatinine (0.52-1.04) mg/dL Glucose (74-99) mg/dL Plasma Lactic Acid Pradeep (0.7-2.0) mmol/L Total Bilirubin (0.2-1.3) mg/dL AST (14-36) U/L ALT (4-34) U/L Alkaline Phosphatase (38-126) U/L Troponin I 0.044 H* (0.000-0.034) ng/mL Assessment and Plan (1) Bilateral lower leg cellulitis Current Visit: Yes Status: Acute Code(s): L03.116 - CELLULITIS OF LEFT LOWER LIMB; L03.115 - CELLULITIS OF RIGHT LOWER LIMB SNOMED Code(s): 160510075 (2) Sepsis Current Visit: Yes Status: Acute Code(s): A41.9 - SEPSIS, UNSPECIFIED ORGANISM SNOMED Code(s): 73789244 Plan: 1patient is in the hospital with sepsis in this patient with a fever tachycardia elevated white count source is likely bilateral AKA wound and concern for osteomyelitis to the right AKA stump site however the patient also have elevated liver enzyme and there was a history of vomiting underlying abdominal source monitor excluded. 2patient has been started on vancomycin and Rocephin to continue while waiting for the culture to finalize. 3patient benefit from vascular surgery evaluation for debridement of the wound and deep culture. 4obtain ultrasound of the abdomen to evaluate for elevated liver enzymes to make sure no evidence of any gallbladder disease. We will follow on clinical condition and cultures to further adjust medication if needed Thank you for this consultation we will follow the patient along with you Dictation was produced using [employer] dictation software. please excuse any grammatical, word or spelling errors. Time with Patient: Greater than 30
[2024-09-09] MEDS: PANTOPRAZOLE 40 MG TABLET PO SCH (08:45)
[2024-09-09] MEDS: DAPAGLIFLOZIN PROPANEDIOL 10 MG TABLET PO SCH (08:45)
[2024-09-09] MEDS: CEFEPIME 2 GM in SODIUM CHLORIDE 0.9% 100 ML IVPB SCH (08:46)
[2024-09-09] MEDS: VANCOMYCIN 500 MG in SODIUM CHLORIDE 0.9% 250 ML IVPB ONE (08:58)
--- NOTE | 2024-09-09 09:29 | US ---
EXAMINATION TYPE: US abdomen complete DATE OF EXAM: 09/09/2024 COMPARISON: NONE CLINICAL INDICATION: Female, 69 years old with history of Elevated liver enzymes and elevated creatin ine; elevated enzymes . Abnormal laboratory results TECHNIQUE: Grayscale and color Doppler imaging of the abdomen was performed. FINDINGS: EXAM MEASUREMENTS: Liver Length: 12.3 cm Gallbladder Wall: 0.4 cm CBD: 0.8 cm, color Doppler imaging was utilized to isolate the common bile duct for measurement. Spleen: 7.6 cm Right Kidney: 10.0 x 5.0 x 5.5 cm Left Kidney: 8.3 x 4.3 x 3.7 cm Pancreas: Obscured by bowel gas Liver: small amount of of free fluid adjacent to liver Gallbladder: pericholecystic fluid. stone Evidence for sonographic Vega's sign: no CBD: dilated Spleen: appears wnl Right Kidney: no evidence of hydronephrosis Left Kidney: limited evaluation. No evidence of hydronephrosis Upper IVC: wnl Abd Aorta: distal measuring upper limits of normal IMPRESSION: 1. Cholelithiasis. Some minimal pericholecystic fluid is present with thickening of the adjacent gall bladder wall. Correlate for acute cholecystitis. 2. Minimal ascites may be present. [facility], Workstation: [facility], 09/09/2024 9:27 AM
[2024-09-09] MEDS: ONDANSETRON 4 MG TAB PO PRN (09:31)
[2024-09-09 09:34] LABS: Anisocytosis Slight; Basophils % (A) 0 %; Eosinophils % (A) 0 %; HGB 9.6 gm/dL (11.4-16.0); Hypochromasia Marked; Lymphocytes # (A) 1.2 k/uL (1.0-4.8); Lymphocytes % (A) 5 %; MCH 30.9 pg (25.0-35.0); MCHC 31.9 g/dL (31.0-37.0); MCV 96.9 fL (80.0-100.0); Mean Platelet Volume 7.1; Monocytes # (A) 0.7 k/uL (0-1.0); Monocytes % (A) 3 %; Neutrophils % (A) 92 %; Platelet Count 284 k/uL (150-450); WBC 26.2 k/uL (3.8-10.6)
[2024-09-09] MEDS: ONDANSETRON 4 MG/2 ML VIAL IVP PRN (09:42)
[2024-09-09 09:51] LABS: ALT 222 U/L (4-34); AST 307 U/L (14-36); African American GFR (CKD) 59 (>60 ml/min/1.73 sqM); Albumin 2.5 g/dL (3.5-5.0); Alkaline Phosphatase 517 U/L (38-126); Anion Gap 13 mmol/L; Blood Urea Nitrogen 38 mg/dL (7-17); Calcium 8.3 mg/dL (8.4-10.2); Carbon Dioxide 19 mmol/L (22-30); Chloride 112 mmol/L (98-107); Glucose 87 mg/dL (74-99); Non-African American GFR(CKD) 51 (>60 ml/min/1.73 sqM); Potassium 3.6 mmol/L (3.5-5.1); Sodium 144 mmol/L (137-145); Total Bilirubin 2.7 mg/dL (0.2-1.3); Total Protein 6.1 g/dL (6.3-8.2)
[2024-09-09] MEDS: IPRATROPIUM 0.5 MG/2.5 ML NEBU INHALATION SCH (09:52)
--- NOTE | 2024-09-09 11:15 | P.GSCN ---
History of Present Illness Consult date: 09/09/24 Reason for Consult: Bilateral AKA wounds. History of present illness: Patient is a 69-year-old female who is status post bilateral [id number] amputations. She presented to the emergency department with a complaint of fever. She had one of her legs amputated at [facility] in [place] and the other leg amputated here at [facility]. She lives in a rehab facility and was transferred from the rehab facility for the concern of the fever. Past Medical History Past Medical History: Coronary Artery Disease (CAD), CVA/TIA, GERD/Reflux, Hyperlipidemia, Hypertension, Myocardial Infarction (MS), Osteoarthritis (OA), Skin Disorder Additional Past Medical History / Comment(s): hx migraines, TIA- FRACTURED RIGHT ANKLE 1/2 CAST, right AKA, left lower extremity revascularization and stenting, Left AKA Last Myocardial Infarction Date:: History of Any Multi-Drug Resistant Organisms: MRSA Year Discovered:: 02/21/18 MDRO Source:: NECK Past Surgical History: Heart Catheterization With Stent, Orthopedic Surgery, Tubal Ligation Additional Past Surgical History / Comment(s): left ankle surgery fracture- pins and plate inserted. 2 cardiac stents, neck surgery, left lower extremity revascularization and stenting and right AKA Past Anesthesia/Blood Transfusion Reactions: No Reported Reaction Date of Last Stent Placement:: 09/2016 Past Psychological History: No Psychological Hx Reported Smoking Status: Current every day smoker Past Alcohol Use History: Occasional Past Drug Use History: None Reported - Past Family History Mother Family Medical History: Hypertension, Myocardial Infarction (MS) Sister(s) Family Medical History: CVA/TIA, Hypertension, Myocardial Infarction (MS) Father Family Medical History: Cancer Additional Family Medical History / Comment(s): colon CA Brother(s) Family Medical History: Coronary Artery Disease (CAD), CVA/TIA Additional Family Medical History / Comment(s): CABG Medications and Allergies Home Medications Medication Instructions Recorded Confirmed Type Acetaminophen [Tylenol 8 Hour] 650 mg PO Q6H PRN 07/24/24 09/08/24 History Naloxone HCl 0.4 mg IM ONCE PRN 07/24/24 09/08/24 History Naloxone HCl [Narcan] 4 mg NASAL ONCE PRN 07/24/24 09/08/24 History Omeprazole Magnesium [PriLOSEC OTC] 40 mg PO DAILY 07/24/24 09/08/24 History Sacubitril/Valsartan [Entresto 24 1 tab PO BID 07/24/24 09/08/24 History mg-26 mg Tablet] Sennosides [Senokot] 8.6 mg PO Q12H PRN 07/24/24 09/08/24 History Ticagrelor [Brilinta] 90 mg PO BID 07/24/24 09/08/24 History polyethylene glycoL 3350 [Miralax] 17 gm PO DAILY PRN 07/24/24 09/08/24 History Dapagliflozin Propanediol [Farxiga] 10 mg PO DAILY tab 08/03/24 09/08/24 Rx Metoprolol Succinate (ER) [Toprol 12.5 mg PO DAILY tab 08/03/24 09/08/24 Rx XL] Pregabalin [Lyrica] 50 mg PO TID@0700,1300,1900 #6 cap 08/04/24 09/08/24 Rx Aspirin 81 mg PO HS 08/07/24 09/08/24 History Furosemide [Lasix] 20 mg PO DAILY 08/07/24 09/08/24 History Mirtazapine [Remeron] 15 mg PO HS 08/07/24 09/08/24 History methocarbamoL [Robaxin-750] 750 mg PO QID PRN 08/07/24 09/08/24 History Atorvastatin [Lipitor] 80 mg PO HS 09/08/24 09/08/24 History Diphenhydramine Hcl Injection 25 mg IM Q4H PRN 09/08/24 09/08/24 History 50mg/Ml Docusate [Colace] 100 mg PO BID 09/08/24 09/08/24 History Fluticasone Propion/Salmeterol 1 puff INHALATION RT-BID@0700,1900 09/08/24 09/08/24 History [Fluticasone-Salmeterol 100-50] Midodrine HCl [ProAmantine] 2.5 mg PO TID@07,13,19 09/08/24 09/08/24 History Ondansetron [Zofran] 4 mg PO Q8HR PRN 09/08/24 09/08/24 History Spironolactone [Aldactone] 12.5 mg PO DAILY 09/08/24 09/08/24 History Umeclidinium [place] [Incruse 1 puff INHALATION RT-DAILY 09/08/24 09/08/24 History Ellipta] traMADol HCL 50 mg PO Q6H PRN 09/08/24 09/08/24 History Allergies Allergy/AdvReac Type Severity Reaction Status Date / Time No Known Allergies Allergy Verified 09/08/24 14:51 Surgical - Exam Osteopathic Statement: *. No significant issues noted on an osteopathic structural exam other than those noted in the History and Physical/Consult. Vital Signs Temp Pulse Resp BP Pulse Ox 100.2 F H 65 20 120/64 95 09/08/24 12:52 09/08/24 12:52 09/08/24 12:52 09/08/24 12:52 09/08/24 12:52 Patient Seen Date: 09/09/24 Patient Seen Time: 10:15 , Alert, cooperative and in no apparent distress. Patient has bilateral [id number] amputations. Both wounds have experienced dehiscence with some necrotic tissue noted in both wounds. There is no evidence of ascending cellulitis. I discussed with the patient my recommendation for operative debridement of both wounds. The procedure, risk and benefits were discussed. All questions were answered patient's satisfaction. I also discussed this with her attending physician to coordinate care. Surgery is scheduled to be performed on . Results - Labs 09/09/24 09:17 09/09/24 09:17 Abnormal Lab Results - Last 24 Hours (Table) 09/08/24 09/08/24 09/08/24 Range/Units 13:17 13:17 13:17 WBC 11.3 H (3.8-10.6) k/uL RBC 3.20 L (3.80-5.40) m/uL Hgb 9.8 L (11.4-16.0) gm/dL Hct 30.7 L (34.0-46.0) % RDW 16.8 H (11.5-15.5) % Neutrophils # 10.9 H (1.3-7.7) k/uL Lymphocytes # 0.2 L (1.0-4.8) k/uL Chloride 108 H (98-107) mmol/L Carbon Dioxide 20 L (22-30) mmol/L BUN 46 H (7-17) mg/dL Creatinine 1.13 H (0.52-1.04) mg/dL Glucose 167 H (74-99) mg/dL Plasma Lactic Acid Pradeep 2.9 H* (0.7-2.0) mmol/L Calcium (8.4-10.2) mg/dL Total Bilirubin 2.3 H (0.2-1.3) mg/dL AST 981 H (14-36) U/L ALT 448 H (4-34) U/L Alkaline Phosphatase 740 H (38-126) U/L Troponin I (0.000-0.034) ng/mL Total Protein (6.3-8.2) g/dL Albumin (3.5-5.0) g/dL Urine Appearance (Clear) Urine Protein (Negative) Urine Blood (Negative) Ur Leukocyte Esterase (Negative) Urine RBC (0-5) /hpf Urine WBC (0-5) /hpf Urine WBC Clumps (None) /hpf Urine Bacteria (None) /hpf Urine Yeast (Budding) (None) /hpf 09/08/24 09/08/24 09/08/24 Range/Units 13:17 13:18 16:45 WBC (3.8-10.6) k/uL RBC (3.80-5.40) m/uL Hgb (11.4-16.0) gm/dL Hct (34.0-46.0) % RDW (11.5-15.5) % Neutrophils # (1.3-7.7) k/uL Lymphocytes # (1.0-4.8) k/uL Chloride (98-107) mmol/L Carbon Dioxide (22-30) mmol/L BUN (7-17) mg/dL Creatinine (0.52-1.04) mg/dL Glucose (74-99) mg/dL Plasma Lactic Acid Pradeep 2.6 H* (0.7-2.0) mmol/L Calcium (8.4-10.2) mg/dL Total Bilirubin (0.2-1.3) mg/dL AST (14-36) U/L ALT (4-34) U/L Alkaline Phosphatase (38-126) U/L Troponin I 0.044 H* 0.096 H* (0.000-0.034) ng/mL Total Protein (6.3-8.2) g/dL Albumin (3.5-5.0) g/dL Urine Appearance (Clear) Urine Protein (Negative) Urine Blood (Negative) Ur Leukocyte Esterase (Negative) Urine RBC (0-5) /hpf Urine WBC (0-5) /hpf Urine WBC Clumps (None) /hpf Urine Bacteria (None) /hpf Urine Yeast (Budding) (None) /hpf 09/09/24 09/09/24 09/09/24 Range/Units 05:45 09:17 09:17 WBC 26.2 H (3.8-10.6) k/uL RBC 3.10 L (3.80-5.40) m/uL Hgb 9.6 L (11.4-16.0) gm/dL Hct 30.0 L (34.0-46.0) % RDW 17.0 H (11.5-15.5) % Neutrophils # 24.0 H (1.3-7.7) k/uL Lymphocytes # (1.0-4.8) k/uL Chloride 112 H (98-107) mmol/L Carbon Dioxide 19 L (22-30) mmol/L BUN 38 H (7-17) mg/dL Creatinine 1.10 H (0.52-1.04) mg/dL Glucose (74-99) mg/dL Plasma Lactic Acid Pradeep (0.7-2.0) mmol/L Calcium 8.3 L (8.4-10.2) mg/dL Total Bilirubin 2.7 H (0.2-1.3) mg/dL AST 307 H (14-36) U/L ALT 222 H (4-34) U/L Alkaline Phosphatase 517 H (38-126) U/L Troponin I (0.000-0.034) ng/mL Total Protein 6.1 L (6.3-8.2) g/dL Albumin 2.5 L (3.5-5.0) g/dL Urine Appearance Turbid H (Clear) Urine Protein 1+ H (Negative) Urine Blood Large H (Negative) Ur Leukocyte Esterase Large H (Negative) Urine RBC 17 H (0-5) /hpf Urine WBC >182 H (0-5) /hpf Urine WBC Clumps Few H (None) /hpf Urine Bacteria Rare H (None) /hpf Urine Yeast (Budding) Moderate H (None) /hpf Microbiology - Last 24 Hours (Table) 09/08/24 13:17 Gram Stain - Preliminary Leg - Left 09/08/24 14:27 Gram Stain - Preliminary Leg - Right 09/08/24 13:17 Blood Culture Gram Stain - Preliminary Blood Blood Culture - Preliminary Molecular ID Diabetes panel 09/08/24 09/09/24 Range/Units 13:17 09:17 Sodium 143 144 (137-145) mmol/L Potassium 4.5 3.6 (3.5-5.1) mmol/L Chloride 108 H 112 H (98-107) mmol/L Carbon Dioxide 20 L 19 L (22-30) mmol/L BUN 46 H 38 H (7-17) mg/dL Creatinine 1.13 H 1.10 H (0.52-1.04) mg/dL Glucose 167 H 87 (74-99) mg/dL Calcium 9.4 8.3 L (8.4-10.2) mg/dL AST 981 H 307 H (14-36) U/L ALT 448 H 222 H (4-34) U/L Alkaline Phosphatase 740 H 517 H (38-126) U/L Total Protein 7.8 6.1 L (6.3-8.2) g/dL Albumin 3.6 2.5 L (3.5-5.0) g/dL Calcium panel 09/08/24 09/09/24 Range/Units 13:17 09:17 Calcium 9.4 8.3 L (8.4-10.2) mg/dL Albumin 3.6 2.5 L (3.5-5.0) g/dL Pituitary panel 09/08/24 09/09/24 Range/Units 13:17 09:17 Sodium 143 144 (137-145) mmol/L Potassium 4.5 3.6 (3.5-5.1) mmol/L Chloride 108 H 112 H (98-107) mmol/L Carbon Dioxide 20 L 19 L (22-30) mmol/L BUN 46 H 38 H (7-17) mg/dL Creatinine 1.13 H 1.10 H (0.52-1.04) mg/dL Glucose 167 H 87 (74-99) mg/dL Calcium 9.4 8.3 L (8.4-10.2) mg/dL Adrenal panel 09/08/24 09/09/24 Range/Units 13:17 09:17 Sodium 143 144 (137-145) mmol/L Potassium 4.5 3.6 (3.5-5.1) mmol/L Chloride 108 H 112 H (98-107) mmol/L Carbon Dioxide 20 L 19 L (22-30) mmol/L BUN 46 H 38 H (7-17) mg/dL Creatinine 1.13 H 1.10 H (0.52-1.04) mg/dL Glucose 167 H 87 (74-99) mg/dL Calcium 9.4 8.3 L (8.4-10.2) mg/dL Total Bilirubin 2.3 H 2.7 H (0.2-1.3) mg/dL AST 981 H 307 H (14-36) U/L ALT 448 H 222 H (4-34) U/L Alkaline Phosphatase 740 H 517 H (38-126) U/L Total Protein 7.8 6.1 L (6.3-8.2) g/dL Albumin 3.6 2.5 L (3.5-5.0) g/dL Assessment and Plan Assessment: 1: Bilateral [id number] amputation surgical wound dehiscence. I do not believe this is the source of the patient's "sepsis". 2: Urinary tract infection which is currently being treated with appropriate antibiotics. I believe this is the most likely reason for the patient's septic like syndrome. Plan: 1: Patient is scheduled for debridement of bilateral above the knee amputation wounds for tomorrow September 10.
--- NOTE | 2024-09-09 11:18 | P.HPIM ---
History of Present Illness This is a pleasant 69 years old female who was sent from [facility] for altered mental status. 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 Since 07/2024. Patient also states she vomited once earlier. Patient fully awake and oriented, can answer questions appropriately and follows command, she does not look in distress. On admission her blood pressure was on the low side 68/53 5 sh she need to be transferred to ICU for start pressors, currently her blood pressure is better 102/50. She is having fever 103 on admission. She denies chest pain or dyspnea no right upper quadrant abdominal pain. No reports of diarrhea. Urine looks dark in the Infante catheter. No dysuria for the patient. Labs reviewed she has unremarkable CBC, BMP and LFT. Urinalysis is highly suspicious for infection Urine culture is pending Abdominal ultrasound showing cholelithiasis with minimal cholecystic fluid with thickening of the adjacent gallbladder suspicious for acute cholecystitis, however clinically does not behave like inflamed gallbladder Femur x-ray showing right AKA stump with hazy ostomy margin suspicious for osteomyelitis by the left AKA showing sharp ostomy margins. Chest x-ray showed combination of COPD and chronic CHF. Patient currently treated with broad-spectrum antibiotics with cefepime and IV vancomycin. Patient also on Ringer lactate at 130 mL/h She is continued on aspirin and Brilinta. Review of Systems Review of systems CONSTITUTIONAL: No fever, no malaise, no fatigue. HEENT: No recent visual problems or hearing problems. Denied any sore throat. CARDIOVASCULAR: No orthopnea, PND, no palpitations, no syncope. PULMONARY: No shortness of breath, no cough, no hemoptysis. GASTROINTESTINAL: No diarrhea, no nausea, no vomiting, no abdominal pain. Normoactive bowel sounds. NEUROLOGICAL: No headaches, no weakness, no numbness. HEMATOLOGICAL: Denies any bleeding or petechiae. GENITOURINARY: Denies any burning micturition, frequency, or urgency. MUSCULOSKELETAL/RHEUMATOLOGICAL: Denies any joint pain, swelling, or any muscle pain. ENDOCRINE: Denies any polyuria or polydipsia. Past Medical History Past Medical History: Coronary Artery Disease (CAD), CVA/TIA, GERD/Reflux, Hyperlipidemia, Hypertension, Myocardial Infarction (NM), Osteoarthritis (OA), Skin Disorder Additional Past Medical History / Comment(s): hx migraines, TIA- FRACTURED RIGHT ANKLE 1/2 CAST, right AKA, left lower extremity revascularization and stenting, Left AKA Last Myocardial Infarction Date:: History of Any Multi-Drug Resistant Organisms: MRSA Date of last positivie culture/infection: 02/21/18 MDRO Source:: NECK Past Surgical History: Heart Catheterization With Stent, Orthopedic Surgery, Tubal Ligation Additional Past Surgical History / Comment(s): left ankle surgery fracture- pins and plate inserted. 2 cardiac stents, neck surgery, left lower extremity revascularization and stenting and right AKA Past Anesthesia/Blood Transfusion Reactions: No Reported Reaction Date of Last Stent Placement:: 09/2016 Past Psychological History: No Psychological Hx Reported Smoking Status: Current every day smoker Past Alcohol Use History: Occasional Past Drug Use History: None Reported - Past Family History Mother Family Medical History: Hypertension, Myocardial Infarction (NM) Sister(s) Family Medical History: CVA/TIA, Hypertension, Myocardial Infarction (NM) Father Family Medical History: Cancer Additional Family Medical History / Comment(s): colon CA Brother(s) Family Medical History: Coronary Artery Disease (CAD), CVA/TIA Additional Family Medical History / Comment(s): CABG Medications and Allergies Home Medications Medication Instructions Recorded Confirmed Type Acetaminophen [Tylenol 8 Hour] 650 mg PO Q6H PRN 07/24/24 09/08/24 History Naloxone HCl 0.4 mg IM ONCE PRN 07/24/24 09/08/24 History Naloxone HCl [Narcan] 4 mg NASAL ONCE PRN 07/24/24 09/08/24 History Omeprazole Magnesium [PriLOSEC OTC] 40 mg PO DAILY 07/24/24 09/08/24 History Sacubitril/Valsartan [Entresto 24 1 tab PO BID 07/24/24 09/08/24 History mg-26 mg Tablet] Sennosides [Senokot] 8.6 mg PO Q12H PRN 07/24/24 09/08/24 History Ticagrelor [Brilinta] 90 mg PO BID 07/24/24 09/08/24 History polyethylene glycoL 3350 [Miralax] 17 gm PO DAILY PRN 07/24/24 09/08/24 History Dapagliflozin Propanediol [Farxiga] 10 mg PO DAILY tab 08/03/24 09/08/24 Rx Metoprolol Succinate (ER) [Toprol 12.5 mg PO DAILY tab 08/03/24 09/08/24 Rx XL] Pregabalin [Lyrica] 50 mg PO TID@0700,1300,1900 #6 cap 08/04/24 09/08/24 Rx Aspirin 81 mg PO HS 08/07/24 09/08/24 History Furosemide [Lasix] 20 mg PO DAILY 08/07/24 09/08/24 History Mirtazapine [Remeron] 15 mg PO HS 08/07/24 09/08/24 History methocarbamoL [Robaxin-750] 750 mg PO QID PRN 08/07/24 09/08/24 History Atorvastatin [Lipitor] 80 mg PO HS 09/08/24 09/08/24 History Diphenhydramine Hcl Injection 25 mg IM Q4H PRN 09/08/24 09/08/24 History 50mg/Ml Docusate [Colace] 100 mg PO BID 09/08/24 09/08/24 History Fluticasone Propion/Salmeterol 1 puff INHALATION RT-BID@0700,1900 09/08/24 09/08/24 History [Fluticasone-Salmeterol 100-50] Midodrine HCl [ProAmantine] 2.5 mg PO TID@07,13,19 09/08/24 09/08/24 History Ondansetron [Zofran] 4 mg PO Q8HR PRN 09/08/24 09/08/24 History Spironolactone [Aldactone] 12.5 mg PO DAILY 09/08/24 09/08/24 History Umeclidinium [place] [Incruse 1 puff INHALATION RT-DAILY 09/08/24 09/08/24 History Ellipta] traMADol HCL 50 mg PO Q6H PRN 09/08/24 09/08/24 History Allergies Allergy/AdvReac Type Severity Reaction Status Date / Time No Known Allergies Allergy Verified 09/08/24 14:51 Physical Exam Vitals: Vital Signs Temp Pulse Pulse Resp BP Pulse Ox 09/09/24 09:55 98 09/09/24 09:52 89 09/09/24 08:40 96.9 F L 96 20 102/50 94 L 09/09/24 08:30 98 14 95/66 98 09/09/24 08:20 103 H 18 95/66 98 09/09/24 08:10 106 H 19 117/57 99 09/09/24 08:00 102 H 20 106/75 100 09/09/24 07:50 98 12 106/75 100 09/09/24 07:40 99 27 H 110/55 09/09/24 07:30 92 14 126/52 09/09/24 07:20 99 15 123/60 100 09/09/24 07:10 104 H 20 114/63 99 09/09/24 07:00 96 14 125/59 09/09/24 06:50 97.4 F L 93 14 125/59 100 09/09/24 05:53 97.8 F 108 H 16 106/44 97 09/09/24 04:45 97.5 F L 104 H 14 112/59 97 09/09/24 02:25 98.3 F 112 H 14 99/46 95 09/09/24 01:09 99 09/09/24 01:00 97.5 F L 111 H 110 H 16 136/63 85 L 09/08/24 23:50 117 H 16 121/62 98 09/08/24 22:50 97.2 F L 118 H 16 140/57 97 09/08/24 21:51 112 H 14 132/57 97 09/08/24 21:25 125 H 14 85/56 98 09/08/24 21:00 125 H 16 152/78 98 09/08/24 20:00 98.3 F 98 14 129/52 98 09/08/24 18:29 104 H 16 96/45 95 09/08/24 18:07 96 18 83/40 94 L 09/08/24 17:21 99.0 F 110 H 18 67/36 99 09/08/24 16:52 98 14 68/36 97 09/08/24 15:29 100.6 F H 111 H 18 68/35 97 09/08/24 14:08 101 H 20 110/46 96 09/08/24 12:52 100.2 F H 65 20 120/64 95 Intake and Output 09/08/24 09/09/24 09/09/24 22:59 06:59 14:59 Intake Total 6.632 163.892 Output Total 250 330 85 Balance -243.368 -330 78.892 Intake: IV 150 Lactated Ringers 1,000 ml 150 @ 130 mls/hr IV .Q7H42M AMANDA Rx#:[id number] Intake, IV Titration 6.632 13.892 Amount Norepinephrine 32 mg In 4.279 13.892 Sodium Chloride 0.9% 218 ml @ 0.03 MCG/KG/MIN 0. 431 mls/hr IV .Q24H AMANDA Rx#:[id number] Norepinephrine 4 mg In 2.353 Sodium Chloride 0.9% 250 ml @ 0.03 MCG/KG/MIN 3.5 mls/hr IV .Q24H AMANDA Rx#: [id number] Output: Urine 250 330 85 Uretheral (Infante) 250 150 Other: Voiding Method Diaper Self-Catheterization # Voids 1 # Bowel Movements 1 GENERAL: The patient is alert and oriented x3, not in any acute distress. Well developed, well nourished. HEENT: Pupils are round and equally reacting to light. EOMI. No scleral icterus. No conjunctival pallor. Normocephalic, atraumatic. No pharyngeal erythema. No thyromegaly. CARDIOVASCULAR: S1 and S2 present. No murmurs, rubs, or gallops. PULMONARY: Chest is clear to auscultation, no wheezing , no crackles. -ABDOMEN: Soft, nondistended, normoactive bowel sounds. No palpable organomegaly. Suprapubic tenderness. Infante catheter in place MUSCULOSKELETAL: No joint swelling or deformity. -EXTREMITIES: No cyanosis, clubbing, or pedal edema. Bilateral AKA with superficial wounds of the bilateral stumps with some purulent discharge in the base which looks dried. Mild tenderness in the right AKA stump distally NEUROLOGICAL: Gross neurological examination did not reveal any focal deficits. SKIN: No rashes. no petechiae. Results CBC & Chem 7: 09/09/24 09:17 09/09/24 09:17 Labs: Abnormal Lab Results - Last 24 Hours (Table) 09/08/24 09/08/24 09/08/24 Range/Units 13:17 13:17 13:17 WBC 11.3 H (3.8-10.6) k/uL RBC 3.20 L (3.80-5.40) m/uL Hgb 9.8 L (11.4-16.0) gm/dL Hct 30.7 L (34.0-46.0) % RDW 16.8 H (11.5-15.5) % Neutrophils # 10.9 H (1.3-7.7) k/uL Lymphocytes # 0.2 L (1.0-4.8) k/uL Chloride 108 H (98-107) mmol/L Carbon Dioxide 20 L (22-30) mmol/L BUN 46 H (7-17) mg/dL Creatinine 1.13 H (0.52-1.04) mg/dL Glucose 167 H (74-99) mg/dL Plasma Lactic Acid Pradeep 2.9 H* (0.7-2.0) mmol/L Calcium (8.4-10.2) mg/dL Total Bilirubin 2.3 H (0.2-1.3) mg/dL AST 981 H (14-36) U/L ALT 448 H (4-34) U/L Alkaline Phosphatase 740 H (38-126) U/L Troponin I (0.000-0.034) ng/mL Total Protein (6.3-8.2) g/dL Albumin (3.5-5.0) g/dL Urine Appearance (Clear) Urine Protein (Negative) Urine Blood (Negative) Ur Leukocyte Esterase (Negative) Urine RBC (0-5) /hpf Urine WBC (0-5) /hpf Urine WBC Clumps (None) /hpf Urine Bacteria (None) /hpf Urine Yeast (Budding) (None) /hpf 09/08/24 09/08/24 09/08/24 Range/Units 13:17 13:18 16:45 WBC (3.8-10.6) k/uL RBC (3.80-5.40) m/uL Hgb (11.4-16.0) gm/dL Hct (34.0-46.0) % RDW (11.5-15.5) % Neutrophils # (1.3-7.7) k/uL Lymphocytes # (1.0-4.8) k/uL Chloride (98-107) mmol/L Carbon Dioxide (22-30) mmol/L BUN (7-17) mg/dL Creatinine (0.52-1.04) mg/dL Glucose (74-99) mg/dL Plasma Lactic Acid Pradeep 2.6 H* (0.7-2.0) mmol/L Calcium (8.4-10.2) mg/dL Total Bilirubin (0.2-1.3) mg/dL AST (14-36) U/L ALT (4-34) U/L Alkaline Phosphatase (38-126) U/L Troponin I 0.044 H* 0.096 H* (0.000-0.034) ng/mL Total Protein (6.3-8.2) g/dL Albumin (3.5-5.0) g/dL Urine Appearance (Clear) Urine Protein (Negative) Urine Blood (Negative) Ur Leukocyte Esterase (Negative) Urine RBC (0-5) /hpf Urine WBC (0-5) /hpf Urine WBC Clumps (None) /hpf Urine Bacteria (None) /hpf Urine Yeast (Budding) (None) /hpf 09/09/24 09/09/24 09/09/24 Range/Units 05:45 09:17 09:17 WBC 26.2 H (3.8-10.6) k/uL RBC 3.10 L (3.80-5.40) m/uL Hgb 9.6 L (11.4-16.0) gm/dL Hct 30.0 L (34.0-46.0) % RDW 17.0 H (11.5-15.5) % Neutrophils # 24.0 H (1.3-7.7) k/uL Lymphocytes # (1.0-4.8) k/uL Chloride 112 H (98-107) mmol/L Carbon Dioxide 19 L (22-30) mmol/L BUN 38 H (7-17) mg/dL Creatinine 1.10 H (0.52-1.04) mg/dL Glucose (74-99) mg/dL Plasma Lactic Acid Pradeep (0.7-2.0) mmol/L Calcium 8.3 L (8.4-10.2) mg/dL Total Bilirubin 2.7 H (0.2-1.3) mg/dL AST 307 H (14-36) U/L ALT 222 H (4-34) U/L Alkaline Phosphatase 517 H (38-126) U/L Troponin I (0.000-0.034) ng/mL Total Protein 6.1 L (6.3-8.2) g/dL Albumin 2.5 L (3.5-5.0) g/dL Urine Appearance Turbid H (Clear) Urine Protein 1+ H (Negative) Urine Blood Large H (Negative) Ur Leukocyte Esterase Large H (Negative) Urine RBC 17 H (0-5) /hpf Urine WBC >182 H (0-5) /hpf Urine WBC Clumps Few H (None) /hpf Urine Bacteria Rare H (None) /hpf Urine Yeast (Budding) Moderate H (None) /hpf Microbiology - Last 24 Hours (Table) 09/08/24 13:17 Gram Stain - Preliminary Leg - Left 09/08/24 14:27 Gram Stain - Preliminary Leg - Right 09/08/24 13:17 Blood Culture Gram Stain - Preliminary Blood Blood Culture - Preliminary Molecular ID Assessment and Plan Assessment: Cellulitis and infections of bilateral AKA stumps, there is suspicion of osteomyelitis at the distal margins of the right stump per x-ray Acute urinary tract infection with suprapubic tenderness. Urine cultures pending Gallbladder disease with gallstones, but the suspicion of acute cholecystitis is low. Severe sepsis/septic shock, present on admission Peripheral artery disease continue with broad-spectrum antibiotics Plan: ontinue with IV fluid Continue with pressors as needed Continu dual antiplatelet therapy Plan for IR tomorrow for I&D of the right stumpe Several consultants on the case including pulmonary/critical, vascular surgery and ID team Labs and medication were reviewed.. Continue same treatment. Continue with symptomatic treatment. Resume home medication. Monitor labs and vitals. DVT and GI prophylaxis. Further recommendations as per clinical course of the patient DVT prophylaxis: On dual antiplatelet therapy GI Prophylaxis: Protonix Prognosis is guarded
--- NOTE | 2024-09-09 12:55 | P.CNPUL ---
History of Present Illness History of present illness: Admitted 09/08 with chief complaint of fever, leg wounds, and cellulitis. 69-year-old female with PMH of coronary artery disease hypertension hyperlipidemia [place] reflux in this patient who did have right [id number] amputation done at [facility] subsequently left izpkr-[id number] a mputation at [facility]. In the ER x-ray of the right femur showed concerning signs of contiguous osteomyelitis. Initial blood cultures were positive for E. coli plus Klebsiella pneumonia and at that time patient was started on vancomycin and Rocephin while awaiting cultures to finalize. Chest x-ray done on admission showed potential CHF with mild pulmonary vascular congestion and trace right pleural effusion which is improved from prior. CBC: WBC 11.3, hemoglobin 9.8, hematocrit 30.7, platelets 270. CMP: Sodium 143, potassium 4.5, CO2 20, BUN 46, creatinine 1.3, glucose 167, total bilirubin 2.3, AST 981, ALT 438, alkaline phosphatase 740. Troponin 0.096. Lactic acid 1.8. Patient is on 2 L nasal cannula SpO2 100%. Patient is seen this morning in the intensive care unit. No significant overnight events. Patient complaining of pain in the bilateral lower extremit ies (AKA). Ultrasound team is in the room this morning performing abdominal ultrasound. Vital show heart rate 96, respiratory rate 20, blood pressure 102/50, O2 saturation 94% on 2 L nasal cannula. Physical examination: GENERAL: The patient is alert and oriented x3, not in any acute distress. Well developed, well nourished. HEENT: Pupils are round and equally reacting to light. EOMI. No scleral icterus. No conjunctival pallor. Normocephalic, atraumatic. No pharyngeal erythema. No thyromegaly. CARDIOVASCULAR: S1 and S2 present. No murmurs, rubs, or gallops. PULMONARY: Chest is clear to auscultation, no wheezing , no crackles. -ABDOMEN: Soft, nondistended, normoactive bowel sounds. No palpable organomegaly. Suprapubic tenderness. Infante catheter in place MUSCULOSKELETAL: No joint swelling or deformity. -EXTREMITIES: No cyanosis, clubbing, or pedal edema. Bilateral AKA with superficial wounds of the bilateral stumps with some purulent discharge in the base which looks dried. Mild tenderness in the right AKA stump distally NEUROLOGICAL: Gross neurological examination did not reveal any focal deficits. SKIN: No rashes. no petechiae. Assessment: Hypotension secondary to sepsis, preliminary blood cultures positive for E. coli and Klebsiella pneumoniae Transaminitis Elevated troponins MARCY likely secondary to hypotension History of hypertension History of hyperlipidemia Plan dated September 09, 2024 Continue vancomycin and cefepime for treatment of documented positive blood cultures for E. coli and Klebsiella Abdominal ultrasound taken for significant transaminitis, showed cholelithiasis with some minimal pericholecystic fluid with thickening of the adjacent gallbladder wall. Minimal ascites may be present. Will continue to monitor LFTs, likely elevated secondary to hypotension. Continue to titrate down Levophed as patient's pressures continue to stabilize. If patient can be off Levophed for 6 hours she can be transferred to the medicine floor. Ordered renal bladder ultrasound in the setting of MARCY and poor urine output Vascular surgery on consult for bilateral AKA with suspected osteomyelitis in right femur, appreciate recommendations Labs, x-rays, and all medications are reviewed. Further recommendations suggestions are forthcoming. Prognosis is guarded. Past Medical History Past Medical History: Coronary Artery Disease (CAD), CVA/TIA, GERD/Reflux, Hyperlipidemia, Hypertension, Myocardial Infarction ([place]), Osteoarthritis (OA), Skin Disorder Additional Past Medical History / Comment(s): hx migraines, TIA- FRACTURED RIGHT ANKLE 1/2 CAST, right AKA, left lower extremity revascularization and stenting, Left AKA Last Myocardial Infarction Date:: History of Any Multi-Drug Resistant Organisms: MRSA Date of last positivie culture/infection: 02/21/18 MDRO Source:: NECK Past Surgical History: Heart Catheterization With Stent, Orthopedic Surgery, Tubal Ligation Additional Past Surgical History / Comment(s): left ankle surgery fracture- pins and plate inserted. 2 cardiac stents, neck surgery, left lower extremity revascularization and stenting and right AKA Past Anesthesia/Blood Transfusion Reactions: No Reported Reaction Date of Last Stent Placement:: 09/2016 Past Psychological History: No Psychological Hx Reported Smoking Status: Current every day smoker Past Alcohol Use History: Occasional Past Drug Use History: None Reported - Past Family History Mother Family Medical History: Hypertension, Myocardial Infarction ([place]) Sister(s) Family Medical History: CVA/TIA, Hypertension, Myocardial Infarction ([place]) Father Family Medical History: Cancer Additional Family Medical History / Comment(s): colon CA Brother(s) Family Medical History: Coronary Artery Disease (CAD), CVA/TIA Additional Family Medical History / Comment(s): CABG Medications and Allergies Home Medications Medication Instructions Recorded Confirmed Type Acetaminophen [Tylenol 8 Hour] 650 mg PO Q6H PRN 07/24/24 09/08/24 History Naloxone HCl 0.4 mg IM ONCE PRN 07/24/24 09/08/24 History Naloxone HCl [Narcan] 4 mg NASAL ONCE PRN 07/24/24 09/08/24 History Omeprazole Magnesium [PriLOSEC OTC] 40 mg PO DAILY 07/24/24 09/08/24 History Sacubitril/Valsartan [Entresto 24 1 tab PO BID 07/24/24 09/08/24 History mg-26 mg Tablet] Sennosides [Senokot] 8.6 mg PO Q12H PRN 07/24/24 09/08/24 History Ticagrelor [Brilinta] 90 mg PO BID 07/24/24 09/08/24 History polyethylene glycoL 3350 [Miralax] 17 gm PO DAILY PRN 07/24/24 09/08/24 History Dapagliflozin Propanediol [Farxiga] 10 mg PO DAILY tab 08/03/24 09/08/24 Rx Metoprolol Succinate (ER) [Toprol 12.5 mg PO DAILY tab 08/03/24 09/08/24 Rx XL] Pregabalin [Lyrica] 50 mg PO TID@0700,1300,1900 #6 cap 08/04/24 09/08/24 Rx Aspirin 81 mg PO HS 08/07/24 09/08/24 History Furosemide [Lasix] 20 mg PO DAILY 08/07/24 09/08/24 History Mirtazapine [Remeron] 15 mg PO HS 08/07/24 09/08/24 History methocarbamoL [Robaxin-750] 750 mg PO QID PRN 08/07/24 09/08/24 History Atorvastatin [Lipitor] 80 mg PO HS 09/08/24 09/08/24 History Diphenhydramine Hcl Injection 25 mg IM Q4H PRN 09/08/24 09/08/24 History 50mg/Ml Docusate [Colace] 100 mg PO BID 09/08/24 09/08/24 History Fluticasone Propion/Salmeterol 1 puff INHALATION RT-BID@0700,1900 09/08/24 09/08/24 History [Fluticasone-Salmeterol 100-50] Midodrine HCl [ProAmantine] 2.5 mg PO TID@07,13,19 09/08/24 09/08/24 History Ondansetron [Zofran] 4 mg PO Q8HR PRN 09/08/24 09/08/24 History Spironolactone [Aldactone] 12.5 mg PO DAILY 09/08/24 09/08/24 History Umeclidinium [place] [Incruse 1 puff INHALATION RT-DAILY 09/08/24 09/08/24 History Ellipta] traMADol HCL 50 mg PO Q6H PRN 09/08/24 09/08/24 History Allergies Allergy/AdvReac Type Severity Reaction Status Date / Time No Known Allergies Allergy Verified 09/08/24 14:51 Physical Exam Vitals: Vital Signs Temp Pulse Pulse Resp BP Pulse Ox 09/09/24 11:00 90 17 91/40 99 09/09/24 10:45 81 21 93/45 96 09/09/24 10:30 81 10 L 82/30 100 09/09/24 10:15 84 17 87/48 100 09/09/24 10:07 91 09/09/24 10:00 93 18 82/44 100 09/09/24 09:55 98 09/09/24 09:52 89 09/09/24 09:45 108 H 20 100/64 98 09/09/24 09:30 84 14 84/50 97 09/09/24 09:15 84 16 101/51 97 09/09/24 09:00 91 14 98 09/09/24 08:40 96.9 F L 96 20 102/50 94 L 09/09/24 08:30 98 14 95/66 98 09/09/24 08:20 103 H 18 95/66 98 09/09/24 08:10 106 H 19 117/57 99 09/09/24 08:00 102 H 20 106/75 100 09/09/24 07:50 98 12 106/75 100 09/09/24 07:40 99 27 H 110/55 09/09/24 07:30 92 14 126/52 09/09/24 07:20 99 15 123/60 100 09/09/24 07:10 104 H 20 114/63 99 09/09/24 07:00 96 14 125/59 09/09/24 06:50 97.4 F L 93 14 125/59 100 09/09/24 05:53 97.8 F 108 H 16 106/44 97 09/09/24 04:45 97.5 F L 104 H 14 112/59 97 09/09/24 02:25 98.3 F 112 H 14 99/46 95 09/09/24 01:09 99 09/09/24 01:00 97.5 F L 111 H 110 H 16 136/63 85 L 09/08/24 23:50 117 H 16 121/62 98 09/08/24 22:50 97.2 F L 118 H 16 140/57 97 09/08/24 21:51 112 H 14 132/57 97 09/08/24 21:25 125 H 14 85/56 98 09/08/24 21:00 125 H 16 152/78 98 09/08/24 20:00 98.3 F 98 14 129/52 98 09/08/24 18:29 104 H 16 96/45 95 09/08/24 18:07 96 18 83/40 94 L 09/08/24 17:21 99.0 F 110 H 18 67/36 99 09/08/24 16:52 98 14 68/36 97 09/08/24 15:29 100.6 F H 111 H 18 68/35 97 09/08/24 14:08 101 H 20 110/46 96 09/08/24 12:52 100.2 F H 65 20 120/64 95 Intake and Output 09/08/24 09/09/24 09/09/24 22:59 06:59 14:59 Intake Total 6.632 775.289 Output Total 250 330 130 Balance -243.368 -330 645.289 Intake: IV 760 Cefepime 2 gm In Sodium 100 Chloride 0.9% 100 ml @ 25 mls/hr IVPB Q8HR [facility] Rx# :[id number] Lactated Ringers 1,000 ml 410 @ 130 mls/hr IV .Q7H42M [facility] Rx#:[id number] Vancomycin 500 mg In 250 Sodium Chloride 0.9% 250 ml @ 125 mls/hr IVPB ONCE ONE Rx#:[id number] Intake, IV Titration 6.632 15.289 Amount Norepinephrine 32 mg In 4.279 15.289 Sodium Chloride 0.9% 218 ml @ 0.03 MCG/KG/MIN 0. 431 mls/hr IV .Q24H [facility] Rx#:[id number] Norepinephrine 4 mg In 2.353 Sodium Chloride 0.9% 250 ml @ 0.03 MCG/KG/MIN 3.5 mls/hr IV .Q24H [facility] Rx#: [id number] Output: Urine 250 330 130 Uretheral (Infante) 250 150 Other: Voiding Method Diaper Indwelling Catheter Self-Catheterization # Voids 1 # Bowel Movements 1 Results - Laboratory Findings CBC and BMP: 09/09/24 09:17 09/09/24 09:17 PT/INR, D-dimer PT 12.0 sec (10.0-12.5) 09/08/24 13:17 INR 1.1 (<1.2) 09/08/24 13:17 Abnormal lab findings: Abnormal Labs 09/08/24 09/08/24 09/08/24 13:17 13:17 13:17 WBC 11.3 H RBC 3.20 L Hgb 9.8 L Hct 30.7 L RDW 16.8 H Neutrophils # 10.9 H Lymphocytes # 0.2 L Chloride 108 H Carbon Dioxide 20 L BUN 46 H Creatinine 1.13 H Glucose 167 H Plasma Lactic Acid Pradeep 2.9 H* Calcium Total Bilirubin 2.3 H AST 981 H ALT 448 H Alkaline Phosphatase 740 H Troponin I Total Protein Albumin Urine Appearance Urine Protein Urine Blood Ur Leukocyte Esterase Urine RBC Urine WBC Urine WBC Clumps Urine Bacteria Urine Yeast (Budding) 09/08/24 09/08/24 09/08/24 13:17 13:18 16:45 WBC RBC Hgb Hct RDW Neutrophils # Lymphocytes # Chloride Carbon Dioxide BUN Creatinine Glucose Plasma Lactic Acid Pradeep 2.6 H* Calcium Total Bilirubin AST ALT Alkaline Phosphatase Troponin I 0.044 H* 0.096 H* Total Protein Albumin Urine Appearance Urine Protein Urine Blood Ur Leukocyte Esterase Urine RBC Urine WBC Urine WBC Clumps Urine Bacteria Urine Yeast (Budding) 01/01/25 01/01/25 01/01/25 05:45 09:17 09:17 WBC 26.2 H RBC 3.10 L Hgb 9.6 L Hct 30.0 L RDW 17.0 H Neutrophils # 24.0 H Lymphocytes # Chloride 112 H Carbon Dioxide 19 L BUN 38 H Creatinine 1.10 H Glucose Plasma Lactic Acid Pradeep Calcium 8.3 L Total Bilirubin 2.7 H AST 307 H ALT 222 H Alkaline Phosphatase 517 H Troponin I Total Protein 6.1 L Albumin 2.5 L Urine Appearance Turbid H Urine Protein 1+ H Urine Blood Large H Ur Leukocyte Esterase Large H Urine RBC 17 H Urine WBC >182 H Urine WBC Clumps Few H Urine Bacteria Rare H Urine Yeast (Budding) Moderate H
--- NOTE | 2024-09-09 15:24 | P.PN ---
Subjective Progress Note Date: 09/09/24 Principal diagnosis: Reason for follow-up is sepsis bacteremia Patient is a 69-year-old female with multiple comorbidity patient did have a significant PAD and did have a bilateral [id number]-[id number] amputations with subsequent dehiscence of the wound patient has been sent from the local senior care to the hospital with fever, patient be diagnosed with sepsis admitted to the ICU did have a positive blood culture with Klebsiella. On today's evaluation that is 09/09/2024,the patient did have resolution of her fever and is afebrile this morning patient is slightly more awake but not a very good historian she is currently breathing comfortably on a 2 L nasal cannula oxygen no vomiting or diarrhea has been reported by the nursing staff. Patient white count is up to 26.2, creatinine is 1.10 liver enzymes remains to be elevated blood culture with Klebsiella, abdominal ultrasound suspicious for cholecystitis Objective - Vital Signs Vital signs: Vital Signs Temp 98.6 F 09/09/24 12:00 Pulse 86 09/09/24 14:00 Resp 14 09/09/24 14:00 BP 115/47 09/09/24 14:00 Pulse Ox 100 09/09/24 13:45 FiO2 Intake & Output 09/08/24 09/09/24 09/09/24 18:59 06:59 18:59 Intake Total 3.182 3.450 1209.345 Output Total 580 270 Balance 3.182 -576.550 939.345 Weight 30.617 kg Intake: IV 1190 Cefepime 2 gm In Sodium 100 Chloride 0.9% 100 ml @ 25 mls/hr IVPB Q8HR [facility] Rx# :[id number] Lactated Ringers 1,000 ml 840 @ 150 mls/hr IV .Q6H40M [facility] Rx#:[id number] Vancomycin 500 mg In 250 Sodium Chloride 0.9% 250 ml @ 125 mls/hr IVPB ONCE ONE Rx#:[id number] Intake, IV Titration 3.182 3.450 19.345 Amount Norepinephrine 32 mg In 0.829 3.450 19.345 Sodium Chloride 0.9% 218 ml @ 0.03 MCG/KG/MIN 0. 431 mls/hr IV .Q24H [facility] Rx#:[id number] Norepinephrine 4 mg In 2.353 Sodium Chloride 0.9% 250 ml @ 0.03 MCG/KG/MIN 3.5 mls/hr IV .Q24H [facility] Rx#: [id number] Output: Urine 580 270 Uretheral (Infante) 400 Other: Voiding Method Diaper Indwelling Catheter Self-Catheterization # Voids 1 # Bowel Movements 1 - Exam GENERAL DESCRIPTION: An elderly female lying in bed in no distress RESPIRATORY SYSTEM: Unlabored breathing , decreased breath sounds at bases HEART: S1 S2 regular rate and rhythm , ABDOMEN: Soft , no tenderness EXTREMITIES: Bilateral AKA stump are currently dressed - Labs CBC & Chem 7: 09/09/24 09:17 09/09/24 09:17 Labs: Abnormal Lab Results - Last 24 Hours (Table) 09/08/24 09/08/24 09/09/24 Range/Units 13:18 16:45 05:45 WBC (3.8-10.6) k/uL RBC (3.80-5.40) m/uL Hgb (11.4-16.0) gm/dL Hct (34.0-46.0) % RDW (11.5-15.5) % Neutrophils # (1.3-7.7) k/uL Chloride (98-107) mmol/L Carbon Dioxide (22-30) mmol/L BUN (7-17) mg/dL Creatinine (0.52-1.04) mg/dL Plasma Lactic Acid Pradeep 2.6 H* (0.7-2.0) mmol/L Calcium (8.4-10.2) mg/dL Total Bilirubin (0.2-1.3) mg/dL AST (14-36) U/L ALT (4-34) U/L Alkaline Phosphatase (38-126) U/L Troponin I 0.096 H* (0.000-0.034) ng/mL Total Protein (6.3-8.2) g/dL Albumin (3.5-5.0) g/dL Urine Appearance Turbid H (Clear) Urine Protein 1+ H (Negative) Urine Blood Large H (Negative) Ur Leukocyte Esterase Large H (Negative) Urine RBC 17 H (0-5) /hpf Urine WBC >182 H (0-5) /hpf Urine WBC Clumps Few H (None) /hpf Urine Bacteria Rare H (None) /hpf Urine Yeast (Budding) Moderate H (None) /hpf 09/09/24 09/09/24 Range/Units 09:17 09:17 WBC 26.2 H (3.8-10.6) k/uL RBC 3.10 L (3.80-5.40) m/uL Hgb 9.6 L (11.4-16.0) gm/dL Hct 30.0 L (34.0-46.0) % RDW 17.0 H (11.5-15.5) % Neutrophils # 24.0 H (1.3-7.7) k/uL Chloride 112 H (98-107) mmol/L Carbon Dioxide 19 L (22-30) mmol/L BUN 38 H (7-17) mg/dL Creatinine 1.10 H (0.52-1.04) mg/dL Plasma Lactic Acid Pradeep (0.7-2.0) mmol/L Calcium 8.3 L (8.4-10.2) mg/dL Total Bilirubin 2.7 H (0.2-1.3) mg/dL AST 307 H (14-36) U/L ALT 222 H (4-34) U/L Alkaline Phosphatase 517 H (38-126) U/L Troponin I (0.000-0.034) ng/mL Total Protein 6.1 L (6.3-8.2) g/dL Albumin 2.5 L (3.5-5.0) g/dL Urine Appearance (Clear) Urine Protein (Negative) Urine Blood (Negative) Ur Leukocyte Esterase (Negative) Urine RBC (0-5) /hpf Urine WBC (0-5) /hpf Urine WBC Clumps (None) /hpf Urine Bacteria (None) /hpf Urine Yeast (Budding) (None) /hpf Microbiology - Last 24 Hours (Table) 09/08/24 13:17 Blood Culture Gram Stain - Preliminary Blood Blood Culture - Preliminary Klebsiella Pneum subsp ozaenae Molecular ID 09/08/24 14:27 Gram Stain - Preliminary Leg - Right Wound Culture - Preliminary 09/08/24 13:17 Gram Stain - Preliminary Leg - Left Wound Culture - Preliminary Assessment and Plan (1) Bilateral lower leg cellulitis Current Visit: Yes Status: Acute Code(s): L03.116 - CELLULITIS OF LEFT LOWER LIMB; L03.115 - CELLULITIS OF RIGHT LOWER LIMB SNOMED Code(s): 182764370 (2) Sepsis Current Visit: Yes Status: Acute Code(s): A41.9 - SEPSIS, UNSPECIFIED ORGANISM SNOMED Code(s): 53509168 (3) Bacteremia Current Visit: Yes Status: Acute Code(s): R78.81 - BACTEREMIA SNOMED Code(s): 8242830 Plan: 1patient is in the hospital with sepsis in this patient with a fever tachycardia elevated white count source is likely bilateral AKA wound and concern for osteomyelitis to the right AKA stump site however the patient also have elevated liver enzyme and there was a history of vomiting underlying abdominal source monitor excluded. 2patient has been evaluated by vascular surgery with a plan for debridement of the wound and deep culture follow as reported by the nursing staff. 3patient does have a positive blood culture with Klebsiella 4 ultrasound of the abdomen suggestive of possible cholecystitis General Surgery to be consulted discussed with the admitting physician 5patient will be treated with cefepime and vancomycin while waiting for the workup to be completed Dictation was produced using [employer] dictation software. please excuse any gra mmatical, word or spelling errors. Time with Patient: Less than 30
[2024-09-09] MEDS: IBUPROFEN 400 MG TAB PO PRN (17:58)
[2024-09-09] MEDS: CEFEPIME 1 GM in SODIUM CHLORIDE 0.9% 50 ML IVPB SCH (21:58)
[2024-09-10 04:25] LABS: Anisocytosis Slight; Basophils # (A) 0.1 k/uL (0-0.2); Basophils % (A) 0 %; Eosinophils % (A) 0 %; HCT 28.4 % (34.0-46.0); Hypochromasia Slight; Lymphocytes # (A) 1.6 k/uL (1.0-4.8); Lymphocytes % (A) 9 %; MCH 30.5 pg (25.0-35.0); MCHC 31.7 g/dL (31.0-37.0); MCV 96.2 fL (80.0-100.0); Macrocytosis Slight; Mean Platelet Volume 7.8; Monocytes # (A) 0.6 k/uL (0-1.0); Monocytes % (A) 3 %; Neutrophils # (A) 15.7 k/uL (1.3-7.7); Neutrophils % (A) 86 %; Platelet Count 270 k/uL (150-450); RBC 2.95 m/uL (3.80-5.40); RDW 17.6 % (11.5-15.5); WBC 18.2 k/uL (3.8-10.6)
[2024-09-10 05:10] LABS: ALT 119 U/L (4-34); AST 138 U/L (14-36); African American GFR (CKD) 76 (>60 ml/min/1.73 sqM); Albumin 2.1 g/dL (3.5-5.0); Alkaline Phosphatase 436 U/L (38-126); Anion Gap 10 mmol/L; Blood Urea Nitrogen 30 mg/dL (7-17); Calcium 7.6 mg/dL (8.4-10.2); Carbon Dioxide 18 mmol/L (22-30); Chloride 112 mmol/L (98-107); Glucose 122 mg/dL (74-99); Non-African American GFR(CKD) 66 (>60 ml/min/1.73 sqM); Potassium 3.5 mmol/L (3.5-5.1); Sodium 140 mmol/L (137-145); Total Bilirubin 2.2 mg/dL (0.2-1.3); Total Protein 5.5 g/dL (6.3-8.2)
[2024-09-10] MEDS ORDERED: Potassium Replacement Protocol 1 EACH MISC MISCELLANE PRN (06:42)
[2024-09-10] MEDS: POTASSIUM CHLORIDE 20 MEQ in WATER FOR INJECTION 1 100ML.BAG IVPB SCH (06:56)
--- NOTE | 2024-09-10 08:49 | P.PN ---
Subjective This is a pleasant 69 years old female who was sent from [facility] for altered mental status. 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 Since 07/2024. Patient also states she vomited once earlier. Patient fully awake and oriented, can answer questions appropriately and follows command, she does not look in distress. On admission her blood pressure was on the low side 68/53 5 sh she need to be transferred to ICU for start pressors, currently her blood pressure is better 102/50. She is having fever 103 on admission. She denies chest pain or dyspnea no right upper quadrant abdominal pain. No reports of diarrhea. Urine looks dark in the Infante catheter. No dysuria for the patient. Labs reviewed she has unremarkable CBC, BMP and LFT. Urinalysis is highly suspicious for infection Urine culture is pending Abdominal ultrasound showing cholelithiasis with minimal cholecystic fluid with thickening of the adjacent gallbladder suspicious for acute cholecystitis, however clinically does not behave like inflamed gallbladder Femur x-ray showing right AKA stump with hazy ostomy margin suspicious for osteomyelitis by the left AKA showing sharp ostomy margins. Chest x-ray showed combination of COPD and chronic CHF. Patient currently treated with broad-spectrum antibiotics with cefepime and IV vancomycin. Patient also on Ringer lactate at 130 mL/h She is continued on aspirin and Brilinta. 1/2 Patient is up in bed getting breathing treatment fully awake and oriented Still complaining from suprapubic pain and tenderness, Infante catheter is in place and picking up her urine output, overnight her urine output was low so increase her fluid currently she is getting Ringer lactate at 150 mL/h also she is getting Levophed at 0.06. Her urine output this morning improved and currently 50-100. Overnight they tried to wean off Levophed and blood pressure dropped. They will try again this morning. Patient remains on antibiotics cefepime and IV vancomycin for her sepsis, several sources are suspected. Most likely the source is acute urinary tract infection I spoke with Dr. Rg this morning, he still suspect there is acute cholecystitis at the source of her sepsis and he recommended cholecystectomy but not currently because of her clinical condition and because she has been on Brilinta Also she has infected stump wounds in both legs and she is going for OR today especially on the right side however per vascular surgery it is unlikely to be the source of infection. Currently patient n.p.o. for the procedure Review of systems CONSTITUTIONAL: No fever, no malaise, no fatigue. HEENT: No recent visual problems or hearing problems. Denied any sore throat. CARDIOVASCULAR: No orthopnea, PND, no palpitations, no syncope. PULMONARY: No shortness of breath, no cough, no hemoptysis. GENITOURINARY: Denies any burning micturition, frequency, or urgency. MUSCULOSKELETAL/RHEUMATOLOGICAL: Denies any joint pain, swelling, or any muscle pain. ENDOCRINE: Denies any polyuria or polydipsia. Active Medications Generic Name Dose Route Start Last Admin Trade Name Freq PRN Reason Stop Dose Admin Acetaminophen 650 mg 09/08/24 14:31 Acetaminophen Tab 325 Mg Tab PO Q6HR PRN Mild Pain or Fever > 100.5 Aspirin 81 mg 09/08/24 21:00 09/09/24 21:54 Aspirin 81 Mg PO Not Given HS [facility]ANDA Atorvastatin Calcium 80 mg 09/08/24 21:00 09/09/24 22:06 Atorvastatin 80 Mg Tab PO 80 mg HS AMANDA Administration Budesonide/Formoterol Fumarate 2 puff 09/08/24 19:00 09/10/24 08:21 Symbicort 80-4.5 Mcg Inhaler INHALATION 2 puff RT-BID@0700,1900 [facility]ANDA Administration Dapagliflozin 10 mg 09/09/24 09:00 09/09/24 08:45 Dapagliflozin Propanediol 10 Mg Tablet PO 10 mg DAILY [facility]ANDA Administration Docusate Sodium 100 mg 09/08/24 21:00 09/09/24 21:54 Docusate 100 Mg Cap PO Not Given BID AMANDA Lactated Ringer's 1,000 mls @ 150 mls/hr 09/08/24 13:00 09/10/24 04:13 Lactated Ringers IV 150 mls/hr .Q6H40M [facility]ANDA Administration Norepinephrine Bitartrate 32 250 mls @ 0.431 mls/hr 09/08/24 18:15 09/10/24 04:32 mg/ Sodium Chloride IV 0.06 mcg/kg/min .Q24H [facility]DA 0.861 mls/hr Titration Protocol 0.03 MCG/KG/MIN Cefepime HCl 1 gm/ Sodium 50 mls @ 12.5 mls/hr 09/09/24 21:00 09/09/24 21:58 Chloride IVPB 12.5 mls/hr Q12HR [facility] Administration Potassium Chloride 20 meq/ IV 100 mls @ 50 mls/hr 09/10/24 07:00 09/10/24 06:56 Solution IVPB 09/10/24 10:59 50 mls/hr Q2H [facility]DA Administration Protocol Ibuprofen 400 mg 09/08/24 14:31 09/09/24 17:58 Ibuprofen 400 Mg Tab PO 400 mg Q6HR PRN Administration Mild Pain or Fever > 100.5 Ipratropium [place] 0.5 mg 09/09/24 08:00 09/10/24 08:21 Ipratropium 0.5 Mg/2.5 Ml Nebu INHALATION 0.5 mg RT-QID [facility] Administration Methocarbamol 750 mg 09/08/24 16:01 Methocarbamol 750 Mg Tab PO QID PRN Muscle Spasm Midodrine 2.5 mg 09/08/24 19:00 09/09/24 22:15 Midodrine 5 Mg Tab PO Not Given TID@07,13,19 AMANDA Mirtazapine 15 mg 09/08/24 21:00 09/09/24 22:13 Mirtazapine 15 Mg Tab PO 15 mg HS AMANDA Administration Miscellaneous Information 1 each 09/08/24 12:59 Vancomycin Iv Per Pharmacy 1 Each Misc MISCELLANE DIRECTED PRN Per Protocol Miscellaneous Information 1 each 09/10/24 06:42 Potassium Replacement Protocol 1 Each Misc MISCELLANE DAILY PRN Per Protocol Protocol Naloxone HCl 0.2 mg 09/08/24 14:31 Naloxone 0.4 Mg/Ml 1 Ml Vial IV Q2M PRN Opioid Reversal Ondansetron HCl 4 mg 09/09/24 09:38 09/09/24 09:42 Ondansetron 4 Mg/2 Ml Vial IVP 4 mg Q6HR PRN Administration Nausea And Vomiting Pantoprazole Sodium 40 mg 09/09/24 09:00 09/09/24 08:45 Pantoprazole 40 Mg Tablet PO 40 mg DAILY [facility]ANDA Administration Polyethylene Glycol 17 gm 09/08/24 16:01 Polyethylene Glycol 3350 17 Gm Powd.Pack PO DAILY PRN Constipation Pregabalin 50 mg 09/08/24 19:00 09/09/24 22:06 Pregabalin 50 Mg Cap PO 50 mg TID@0700,1300,1900 AM[facility]DA Administration Sacubitril/Valsartan 1 each 09/08/24 21:00 09/09/24 22:08 Sacubitril/Valsartan 24 Mg-26 Mg Tablet PO 1 each BID [facility] Administration Senna 8.6 mg 09/08/24 16:01 Sennosides 8.6 Mg Tab PO Q12H PRN Constipation Ticagrelor 90 mg 09/08/24 21:00 09/09/24 21:55 Ticagrelor 90 Mg Tab PO Not Given BID [facility] Tramadol HCl 50 mg 09/08/24 16:01 Tramadol 50 Mg Tab PO Q6H PRN Pain Objective - Vital Signs Vital signs: Vital Signs Temp 98.3 F 09/10/24 04:00 Pulse 77 09/10/24 08:33 Resp 10 L 09/10/24 07:00 BP 117/53 09/10/24 07:00 Pulse Ox 100 09/10/24 08:23 FiO2 1 09/10/24 00:00 Intake & Output 09/09/24 09/10/24 09/10/24 18:59 06:59 18:59 Intake Total 5755.195 1813.315 260 Output Total 470 895 125 Balance 4829.471 3248.315 135 Weight 30.617 kg 49.9 kg Intake: IV 1930 0.0 260 0.9 @ KVO 140 200 10 Cefepime 1 gm In Sodium 50.0 Chloride 0.9% 50 ml @ 12. 5 mls/hr IVPB Q12HR [facility] Rx#:[id number] Cefepime 2 gm In Sodium 100 Chloride 0.9% 100 ml @ 25 mls/hr IVPB Q8HR [facility] Rx# :[id number] Lactated Ringers 1,000 ml 1440 1800 150 @ 150 mls/hr IV .Q6H40M [facility] Rx#:[id number] Potassium Chloride 20 meq 100 In Water For Injection 1 100ml.bag @ 50 mls/hr IVPB Q2H [facility] Rx#: [id number] Vancomycin 500 mg In 250 Sodium Chloride 0.9% 250 ml @ 125 mls/hr IVPB ONCE ONE Rx#:[id number] Intake, IV Titration 24.427 8.315 Amount Norepinephrine 32 mg In 24.427 8.315 Sodium Chloride 0.9% 218 ml @ 0.03 MCG/KG/MIN 0. 431 mls/hr IV .Q24H [facility] Rx#:[id number] Output: Urine 470 895 125 Other: Voiding Method Indwelling Catheter Indwelling Catheter # Bowel Movements 1 - Labs CBC & Chem 7: 09/10/24 03:37 09/10/24 03:37 Labs: Abnormal Lab Results - Last 24 Hours (Table) 09/09/24 09/09/24 09/10/24 Range/Units 09:17 09:17 03:37 WBC 26.2 H 18.2 H (3.8-10.6) k/uL RBC 3.10 L 2.95 L (3.80-5.40) m/uL Hgb 9.6 L 9.0 L (11.4-16.0) gm/dL Hct 30.0 L 28.4 L (34.0-46.0) % RDW 17.0 H 17.6 H (11.5-15.5) % Neutrophils # 24.0 H 15.7 H (1.3-7.7) k/uL Chloride 112 H (98-107) mmol/L Carbon Dioxide 19 L (22-30) mmol/L BUN 38 H (7-17) mg/dL Creatinine 1.10 H (0.52-1.04) mg/dL Glucose (74-99) mg/dL Calcium 8.3 L (8.4-10.2) mg/dL Total Bilirubin 2.7 H (0.2-1.3) mg/dL AST 307 H (14-36) U/L ALT 222 H (4-34) U/L Alkaline Phosphatase 517 H (38-126) U/L Total Protein 6.1 L (6.3-8.2) g/dL Albumin 2.5 L (3.5-5.0) g/dL 09/10/24 Range/Units 03:37 WBC (3.8-10.6) k/uL RBC (3.80-5.40) m/uL Hgb (11.4-16.0) gm/dL Hct (34.0-46.0) % RDW (11.5-15.5) % Neutrophils # (1.3-7.7) k/uL Chloride 112 H (98-107) mmol/L Carbon Dioxide 18 L (22-30) mmol/L BUN 30 H (7-17) mg/dL Creatinine (0.52-1.04) mg/dL Glucose 122 H (74-99) mg/dL Calcium 7.6 L (8.4-10.2) mg/dL Total Bilirubin 2.2 H (0.2-1.3) mg/dL AST 138 H (14-36) U/L ALT 119 H (4-34) U/L Alkaline Phosphatase 436 H (38-126) U/L Total Protein 5.5 L (6.3-8.2) g/dL Albumin 2.1 L (3.5-5.0) g/dL Microbiology - Last 24 Hours (Table) 09/08/24 13:17 Blood Culture Gram Stain - Preliminary Blood Blood Culture - Preliminary Klebsiella Pneum subsp ozaenae Molecular ID 09/08/24 14:27 Gram Stain - Preliminary Leg - Right Wound Culture - Preliminary 09/08/24 13:17 Gram Stain - Preliminary Leg - Left Wound Culture - Preliminary Assessment and Plan Assessment: Cellulitis and infections of bilateral AKA stumps, there is suspicion of osteomyelitis at the distal margins of the right stump per x-ray Acute urinary tract infection with suprapubic tenderness. Urine cultures pending Gallbladder disease with gallstones, but the suspicion of acute cholecystitis is low. Severe sepsis/septic shock, present on admission Peripheral artery disease continue with broad-spectrum antibiotics Plan: Continue with IV fluid Continue with pressors as needed, currently on Levophed Continu dual antiplatelet therapy Plan for OR on 09/10/24 for I&D of the right stumpe Several consultants on the case including pulmonary/critical, vascular surgery and ID team General Surgery also seen the patient Labs and medication were reviewed.. Continue same treatment. Continue with symptomatic treatment. Resume home medication. Monitor labs and vitals. DVT and GI prophylaxis. Further recommendations as per clinical course of the patient DVT prophylaxis: On dual antiplatelet therapy GI Prophylaxis: Protonix Prognosis is guarded
[2024-09-10] MEDS ORDERED: HYDROmorphone (PF) 1 MG/ML ONE (09:44)
[2024-09-10] MEDS ORDERED: ETOMIDATE 2 MG/ML 10 ML VIAL ONE (09:44)
[2024-09-10] MEDS ORDERED: fentaNYL (PF) 50 MCG/ML 2 ML AMP ONE (09:44)
[2024-09-10] MEDS ORDERED: LIDOCAINE 1% INJ 10MG/ML (20 ML MDV) ONE (09:44)
[2024-09-10] MEDS ORDERED: KETOROLAC 15 MG/ML 1 ML VIAL ONE (09:44)
[2024-09-10] MEDS: IV FLUID CONTINUATION 1,000 ML IV ONE (09:50)
--- NOTE | 2024-09-10 11:14 | P.OP ---
Date of Procedure: 09/10/24 Preoperative Diagnosis: Bilateral lower extremity above-knee amputation wound dehiscence. Postoperative Diagnosis: Same. Procedure(s) Performed: Sharp surgical debridement of bilateral above-knee amputation wounds. Pulse volume lavage bilateral above-knee amputation wounds. Bilateral deep tissue cultures. Placement of wound VAC bilateral wjxgu-hug-iwdw amputation wounds. Anesthesia: LAYNE Surgeon: Tae Navarrete Estimated Blood Loss (ml): 10 Pathology: other (Wound culture) Condition: stable Disposition: no change Indications for Procedure: Patient is a 69-year-old female with multiple medical problems who had presented with a septic leg syndrome. She is found to have significant urinary tract infection and blood cultures were positive for Klebsiella. Additionally she was found to have bilateral above-knee amputation wound dehiscence. Both were in need of surgical debridement. I did recommend sharp surgical debridement and placement of wound VAC to both wounds. The procedure, risk and benefits were discussed not only with the patient but with her family. All questions were answered to patient and family satisfaction. Consent form was signed. Description of Procedure: Patient was brought the op room placed in the supine position administered general endotracheal anesthesia administered by the department anesthesiology. Her IV antibiotic schedule was maintained. Both lower extremities were sterilely prepped and draped. Beginning on the right the wound was noted to be bisected with normal healed tissue. The most lateral wound measured 5 cm x 5 cm x 4 mm in depth and the medial wound measured 7 x 4 cm in length and width and 1.5 cm in depth. The lateral wound had tunneling of a distance of 5 cm. Deep tissue culture was obtained and sent to pathology for culture and sensitivity. Pulse lavage was then performed of the wound. A similar procedure was performed on the left lower extremity with a wound measuring 11 x 4.5 cm in length and width and 3 cm in depth. Wound VAC was applied to both wounds. Patient tolerated the procedure well and was taken the recovery area in satisfactory and stable condition.
--- NOTE | 2024-09-10 12:09 | P.PN ---
Subjective Admitted 09/08 with chief complaint of fever, leg wounds, and cellulitis. 69-year-old female with PMH of coronary artery disease hypertension hyper lipidemia PR reflux in this patient who did have right tsrdw-uzr-esag amputation done at [facility] subsequently left phjwx-nkd-ohpc amputation at [facility]. In the ER x-ray of the right femur showed concerning signs of contiguous osteomyelitis. Initial blood cultures were positive for E. coli plus Klebsiella pneumonia and at that time patient was started on vancomycin and Rocephin while awaiting cultures to finalize. Chest x-ray done on admission showed potential CHF with mild pulmonary vascular congestion and trace right pleural effusion which is improved from prior. CBC: WBC 11.3, hemoglobin 9.8, hematocrit 30.7, platelets 270. CMP: Sodium 143, potassium 4.5, CO2 20, BUN 46, creatinine 1.3, glucose 167, total bilirubin 2.3, AST 981, ALT 438, alkaline phosphatase 740. Troponin 0.096. Lactic acid 1.8. Patient is on 2 L nasal cannula SpO2 100%. Patient is seen this morning in the intensive care unit. No significant overnight events. Patient complaining of pain in the bilateral lower extremities (AKA). Ultrasound team is in the room this morning performing abdominal ultrasound. Vital show heart rate 96, respiratory rate 20, blood pressure 102/50, O2 saturation 94% on 2 L nasal cannula. Progress note dated September 10, 2024: Patient is seen in the intensive care unit this morning. No significant overnight events. There was a concern about urine output yesterday, but since then the patient has put out 1.3 L in the last 24 hours. Patient is expected to go for debridement of the bilateral AKA sites today. CBC: WBC 18.2, hemoglobin 9.0, hematocrit 28.4, platelets 270. CMP: Sodium 140, potassium 3.5, chloride 112, BUN 30, creatinine 0.89, calcium 7.6, albumin 2.1, AST 138, ALT 119, alkaline phosphatase 436. Now saturating well on room air, but still requiring Levophed 3 mcg/min after failed attempts to wean yesterday with a dropping MAP. On day 2 of cefepime and vancomycin. LR running at 150 cc/h. Physical examination: GENERAL: The patient is alert and oriented x3, not in any acute distress. Well developed, well nourished. HEENT: Pupils are round and equally reacting to light. EOMI. No scleral icterus. No conjunctival pallor. Normocephalic, atraumatic. No pharyngeal erythema. No thyromegaly. CARDIOVASCULAR: S1 and S2 present. No murmurs, rubs, or gallops. PULMONARY: Chest is clear to auscultation, no wheezing , no crackles. -ABDOMEN: Soft, nondistended, normoactive bowel sounds. No palpable organomegaly. Suprapubic tenderness. Infante catheter in place MUSCULOSKELETAL: No joint swelling or deformity. -EXTREMITIES: No cyanosis, clubbing, or pedal edema. Bilateral AKA with superficial wounds of the bilateral stumps with some purulent discharge in the base which looks dried. Mild tenderness in the right AKA stump distally NEUROLOGICAL: Gross neurological examination did not reveal any focal deficits. SKIN: No rashes. no petechiae. Assessment: Hypotension secondary to sepsis, preliminary blood cultures positive for E. coli and Klebsiella pneumoniae Transaminitis Elevated troponins MARCY likely secondary to hypotension History of hypertension History of hyperlipidemia Plan dated September 09, 2024 Continue vancomycin and cefepime for treatment of documented positive blood cultures for E. coli and Klebsiella Abdominal ultrasound taken for significant transaminitis, showed cholelithiasis with some minimal pericholecystic fluid with thickening of the adjacent gallbladder wall. Minimal ascites may be present. Will continue to monitor LFTs, likely elevated secondary to hypotension. Continue to titrate down Levophed as patient's pressures continue to stabilize. If patient can be off Levophed for 6 hours she can be transferred to the medicine floor. Ordered renal bladder ultrasound in the setting of MARCY and poor urine output Vascular surgery on consult for bilateral AKA with suspected osteomyelitis in right femur, appreciate recommendations Labs, x-rays, and all medications are reviewed. Further recommendations suggestions are forthcoming. Prognosis is guarded. Plan dated September 10, 2024 Continue vancomycin and cefepime (day 2) for positive blood cultures showing Klebsiella Pneum subsp ozaenae, right leg wound positive for strep agalactiae, E. coli, and Klebsiella. Left leg positive for strep agalactiae and gram- negative bacilli. These are all preliminary results. Transaminitis continues to improve after mosque of normal BP, potentially indicating shock liver but cannot rule out sepsis as a culprit. Continue trying to titrate down Levophed, currently on 3 mcg/min. LR running at 150 cc/h. Blood pressure has remained stable on this current regimen. Urine output over last 24 hours is 1.3 L, continue to monitor. Improved from yesterday. Patient underwent bilateral debridement of both AKA's, appreciate further recommendations from vascular surgery Labs, x-rays, and all medications are reviewed. Further recommendations and suggestions are forthcoming. Prognosis is guarded. Objective - Vital Signs Vital signs: Vital Signs Temp 98.3 F 09/10/24 04:00 Pulse 89 09/10/24 07:00 Resp 10 L 09/10/24 07:00 BP 117/53 09/10/24 07:00 Pulse Ox 98 09/10/24 07:00 FiO2 1 09/10/24 00:00 Intake & Output 09/09/24 09/10/24 09/10/24 18:59 06:59 18:59 Intake Total 5577.958 5689.315 260 Output Total 470 895 125 Balance 2051.940 1144.315 135 Weight 30.617 kg 49.9 kg Intake: IV 1930 2050.0 260 0.9 @ KVO 140 200 10 Cefepime 1 gm In Sodium 50.0 Chloride 0.9% 50 ml @ 12. 5 mls/hr IVPB Q12HR [facility] Rx#:[id number] Cefepime 2 gm In Sodium 100 Chloride 0.9% 100 ml @ 25 mls/hr IVPB Q8HR [facility] Rx# :[id number] Lactated Ringers 1,000 ml 1440 1800 150 @ 150 mls/hr IV .Q6H40M [facility] Rx#:[id number] Potassium Chloride 20 meq 100 In Water For Injection 1 100ml.bag @ 50 mls/hr IVPB Q2H [facility] Rx#: [id number] Vancomycin 500 mg In 250 Sodium Chloride 0.9% 250 ml @ 125 mls/hr IVPB ONCE ONE Rx#:[id number] Intake, IV Titration 24.427 8.315 Amount Norepinephrine 32 mg In 24.427 8.315 Sodium Chloride 0.9% 218 ml @ 0.03 MCG/KG/MIN 0. 431 mls/hr IV .Q24H [facility] Rx#:[id number] Output: Urine 470 895 125 Other: Voiding Method Indwelling Catheter Indwelling Catheter # Bowel Movements 1 - Labs CBC & Chem 7: 09/10/24 03:37 09/10/24 03:37 Labs: Abnormal Lab Results - Last 24 Hours (Table) 09/09/24 09/09/24 09/10/24 Range/Units 09:17 09:17 03:37 WBC 26.2 H 18.2 H (3.8-10.6) k/uL RBC 3.10 L 2.95 L (3.80-5.40) m/uL Hgb 9.6 L 9.0 L (11.4-16.0) gm/dL Hct 30.0 L 28.4 L (34.0-46.0) % RDW 17.0 H 17.6 H (11.5-15.5) % Neutrophils # 24.0 H 15.7 H (1.3-7.7) k/uL Chloride 112 H (98-107) mmol/L Carbon Dioxide 19 L (22-30) mmol/L BUN 38 H (7-17) mg/dL Creatinine 1.10 H (0.52-1.04) mg/dL Glucose (74-99) mg/dL Calcium 8.3 L (8.4-10.2) mg/dL Total Bilirubin 2.7 H (0.2-1.3) mg/dL AST 307 H (14-36) U/L ALT 222 H (4-34) U/L Alkaline Phosphatase 517 H (38-126) U/L Total Protein 6.1 L (6.3-8.2) g/dL Albumin 2.5 L (3.5-5.0) g/dL 09/10/24 Range/Units 03:37 WBC (3.8-10.6) k/uL RBC (3.80-5.40) m/uL Hgb (11.4-16.0) gm/dL Hct (34.0-46.0) % RDW (11.5-15.5) % Neutrophils # (1.3-7.7) k/uL Chloride 112 H (98-107) mmol/L Carbon Dioxide 18 L (22-30) mmol/L BUN 30 H (7-17) mg/dL Creatinine (0.52-1.04) mg/dL Glucose 122 H (74-99) mg/dL Calcium 7.6 L (8.4-10.2) mg/dL Total Bilirubin 2.2 H (0.2-1.3) mg/dL AST 138 H (14-36) U/L ALT 119 H (4-34) U/L Alkaline Phosphatase 436 H (38-126) U/L Total Protein 5.5 L (6.3-8.2) g/dL Albumin 2.1 L (3.5-5.0) g/dL Microbiology - Last 24 Hours (Table) 09/08/24 13:17 Blood Culture Gram Stain - Preliminary Blood Blood Culture - Preliminary Klebsiella Pneum subsp ozaenae Molecular ID 09/08/24 14:27 Gram Stain - Preliminary Leg - Right Wound Culture - Preliminary 09/08/24 13:17 Gram Stain - Preliminary Leg - Left Wound Culture - Preliminary
[2024-09-10 12:42] LABS: Glucose,Whole Blood 107 mg/dL (70-110)
[2024-09-10] MEDS: VANCOMYCIN 750 MG in SODIUM CHLORIDE 0.9% 250 ML IVPB SCH (12:49)
--- NOTE | 2024-09-10 13:21 | P.GSCN ---
History of Present Illness Consult date: 09/10/24 History of present illness: CHIEF COMPLAINT: Wounds bilateral AKA HISTORY OF PRESENT ILLNESS: This is a 69-year-old female who presented the hospital with complaints of not feeling well with wounds at her bilateral above- knee amputation. Patient with fever and tachycardia on admission. Patient seen by vascular service and is scheduled for debridement of her bilateral lower extremity wounds. Patient is also on anticoagulation in the form of Brilinta. Surgical service has been consulted for possible acute cholecystitis. Patient had some mild right upper quadrant abdominal tenderness and gallbladder ultrasound had reported gallstones with minimal pericholecystic fluid. Also had noted elevated LFTs and total bilirubin. Patient denies any nausea or vomiting. Patient seen and examined by Dr. Aleman PAST MEDICAL HISTORY: Coronary Artery Disease (CAD), CVA/TIA, GERD/Reflux, Hyperlipidemia, Hypertension, Myocardial Infarction ([place]), Osteoarthritis (OA), Skin Disorder,hx migraines, TIA- FRACTURED RIGHT ANKLE 1/2 CAST, left lower extremity revascularization and stenting, PAST SURGICAL HISTORY: Heart Catheterization With Stent, Orthopedic Surgery, Tubal Ligation, left and right AKA MEDICATIONS: See below ALLERGIES: See below SOCIAL HISTORY: No illicit drug use. REVIEW OF SYSTEMS: CONSTITUTIONAL: Denies fever or chills. HEENT: Denies blurred vision, vision changes, or eye pain. Denies hemoptysis CARDIOVASCULAR: Denies chest pain or pressure. RESPIRATORY: No shortness of breath. GASTROINTESTINAL: See HPI for pertinent findings HEMATOLOGIC: Denies bleeding disorders. GENITOURINARY: Denies any blood in urine or increased urinary frequency. SKIN: Denies pruitis. Denies rash. PHYSICAL EXAM: VITAL SIGNS: Reviewed GENERAL: Well-developed in no acute distress. HEENT: No sclera icterus. Extraocular movements grossly intact. Moist buccal mucosa. Head is atraumatic, normocephalic. No nasal drainage. ABDOMEN: Soft. Nondistended. Minimal tenderness palpation right upper quadrant with palpation. No rebound or guarding noted. NEUROLOGIC: Alert and oriented. Cranial nerves II through XII grossly intact. LABORATORY DATA: WBC 26 down to 18.2 Hgb 9.0 platelets 270 Sodium is 140 potassium 3.5 creatinine 0.89 Total bilirubin 2.7 down to 2.2 AST 307 to 138 ALT 222 down to 119 alk phos 517 down to 436 IMAGING: Abdominal ultrasound reports cholelithiasis. Some minimal pericholecystic fluid is present with thickening of the adjacent gallbladder wall. Correlate for acute cholecystitis. Minimal ascites may be present. ASSESSMENT: 1. Cholecystitis with ultrasound reporting gallstones and minimal pericholecystic fluid 2. Bilateral loqlj-sap-yzvo amputation wounds followed by vascular surgery PLAN: -Recommend medical management for cholecystitis. Patient is currently on Brilinta and requiring debridement of her wounds at hwtjz-crk-[id number] amputation sites by vascular surgery. -Continue antibiotics -Recommend low-fat diet -Repeat labs in a.m. Physician Jawbone Puller note has been reviewed by physician. Signing provider agrees with the documented findings, assessment, and plan of care. Past Medical History Past Medical History: Coronary Artery Disease (CAD), CVA/TIA, GERD/Reflux, Hyperlipidemia, Hypertension, Myocardial Infarction ([place]), Osteoarthritis (OA), Skin Disorder Additional Past Medical History / Comment(s): hx migraines, right AKA, left lower extremity revascularization and stenting, Left AKA Last Myocardial Infarction Date:: History of Any Multi-Drug Resistant Organisms: MRSA Year Discovered:: 02/21/18 MDRO Source:: NECK Past Surgical History: Heart Catheterization With Stent, Orthopedic Surgery, Tubal Ligation Additional Past Surgical History / Comment(s): left ankle surgery fracture- pins and plate inserted. 2 cardiac stents, neck surgery, left lower extremity revascularization and stenting and right AKA Past Anesthesia/Blood Transfusion Reactions: No Reported Reaction Date of Last Stent Placement:: 09/2016 Past Psychological History: No Psychological Hx Reported Smoking Status: Former smoker Past Alcohol Use History: Occasional Additional Past Alcohol Use History / Comment(s): started smoking at age 16( 1970) and quit 2016, smoked 2 ppd.STARTED SMOKING 2019 SMOKING 1/2 PPD quit smoking a few weeks ago (08/2021) Past Drug Use History: None Reported Additional Drug Use History / Comment(s): OCCASIONAL USE OF MARIJUANA - Past Family History Mother Family Medical History: Hypertension, Myocardial Infarction ([place]) Sister(s) Family Medical History: CVA/TIA, Hypertension, Myocardial Infarction ([place]) Father Family Medical History: Cancer Additional Family Medical History / Comment(s): colon CA Brother(s) Family Medical History: Coronary Artery Disease (CAD), CVA/TIA Additional Family Medical History / Comment(s): CABG Medications and Allergies Home Medications Medication Instructions Recorded Confirmed Type Acetaminophen [Tylenol 8 Hour] 650 mg PO Q6H PRN 07/24/24 09/08/24 History Naloxone HCl 0.4 mg IM ONCE PRN 07/24/24 09/08/24 History Naloxone HCl [Narcan] 4 mg NASAL ONCE PRN 07/24/24 09/08/24 History Omeprazole Magnesium [PriLOSEC OTC] 40 mg PO DAILY 07/24/24 09/08/24 History Sacubitril/Valsartan [Entresto 24 1 tab PO BID 07/24/24 09/08/24 History mg-26 mg Tablet] Sennosides [Senokot] 8.6 mg PO Q12H PRN 07/24/24 09/08/24 History Ticagrelor [Brilinta] 90 mg PO BID 07/24/24 09/08/24 History polyethylene glycoL 3350 [Miralax] 17 gm PO DAILY PRN 07/24/24 09/08/24 History Dapagliflozin Propanediol [Farxiga] 10 mg PO DAILY tab 08/03/24 09/08/24 Rx Metoprolol Succinate (ER) [Toprol 12.5 mg PO DAILY tab 08/03/24 09/08/24 Rx XL] Pregabalin [Lyrica] 50 mg PO TID@0700,1300,1900 #6 cap 08/04/24 09/08/24 Rx Aspirin 81 mg PO HS 08/07/24 09/08/24 History Furosemide [Lasix] 20 mg PO DAILY 08/07/24 09/08/24 History Mirtazapine [Remeron] 15 mg PO HS 08/07/24 09/08/24 History methocarbamoL [Robaxin-750] 750 mg PO QID PRN 08/07/24 09/08/24 History Atorvastatin [Lipitor] 80 mg PO HS 09/08/24 09/08/24 History Diphenhydramine Hcl Injection 25 mg IM Q4H PRN 09/08/24 09/08/24 History 50mg/Ml Docusate [Colace] 100 mg PO BID 09/08/24 09/08/24 History Fluticasone Propion/Salmeterol 1 puff INHALATION RT-BID@0700,1900 09/08/24 09/08/24 History [Fluticasone-Salmeterol 100-50] Midodrine HCl [ProAmantine] 2.5 mg PO TID@07,13,19 09/08/24 09/08/24 History Ondansetron [Zofran] 4 mg PO Q8HR PRN 09/08/24 09/08/24 History Spironolactone [Aldactone] 12.5 mg PO DAILY 09/08/24 09/08/24 History Umeclidinium [place] [Incruse 1 puff INHALATION RT-DAILY 09/08/24 09/08/24 History Ellipta] traMADol HCL 50 mg PO Q6H PRN 09/08/24 09/08/24 History Allergies Allergy/AdvReac Type Severity Reaction Status Date / Time No Known Allergies Allergy Verified 09/08/24 14:51 Surgical - Exam Vital Signs Temp Pulse Resp BP Pulse Ox 100.2 F H 65 20 120/64 95 09/08/24 12:52 09/08/24 12:52 09/08/24 12:52 09/08/24 12:52 09/08/24 12:52 Results - Labs 09/10/24 03:37 09/10/24 12:23 Abnormal Lab Results - Last 24 Hours (Table) 09/10/24 09/10/24 Range/Units 03:37 03:37 WBC 18.2 H (3.8-10.6) k/uL RBC 2.95 L (3.80-5.40) m/uL Hgb 9.0 L (11.4-16.0) gm/dL Hct 28.4 L (34.0-46.0) % RDW 17.6 H (11.5-15.5) % Neutrophils # 15.7 H (1.3-7.7) k/uL Chloride 112 H (98-107) mmol/L Carbon Dioxide 18 L (22-30) mmol/L BUN 30 H (7-17) mg/dL Glucose 122 H (74-99) mg/dL Calcium 7.6 L (8.4-10.2) mg/dL Total Bilirubin 2.2 H (0.2-1.3) mg/dL AST 138 H (14-36) U/L ALT 119 H (4-34) U/L Alkaline Phosphatase 436 H (38-126) U/L Total Protein 5.5 L (6.3-8.2) g/dL Albumin 2.1 L (3.5-5.0) g/dL Microbiology - Last 24 Hours (Table) 09/08/24 13:17 Blood Culture Gram Stain - Preliminary Blood Blood Culture - Preliminary Klebsiella Pneum subsp ozaenae Molecular ID 09/08/24 14:27 Gram Stain - Preliminary Leg - Right Wound Culture - Preliminary 09/08/24 13:17 Gram Stain - Preliminary Leg - Left Wound Culture - Preliminary Diabetes panel 09/10/24 Range/Units 03:37 Sodium 140 (137-145) mmol/L Potassium 3.5 (3.5-5.1) mmol/L Chloride 112 H (98-107) mmol/L Carbon Dioxide 18 L (22-30) mmol/L BUN 30 H (7-17) mg/dL Creatinine 0.89 (0.52-1.04) mg/dL Glucose 122 H (74-99) mg/dL Calcium 7.6 L (8.4-10.2) mg/dL AST 138 H (14-36) U/L ALT 119 H (4-34) U/L Alkaline Phosphatase 436 H (38-126) U/L Total Protein 5.5 L (6.3-8.2) g/dL Albumin 2.1 L (3.5-5.0) g/dL Calcium panel 09/10/24 Range/Units 03:37 Calcium 7.6 L (8.4-10.2) mg/dL Albumin 2.1 L (3.5-5.0) g/dL Pituitary panel 09/10/24 Range/Units 03:37 Sodium 140 (137-145) mmol/L Potassium 3.5 (3.5-5.1) mmol/L Chloride 112 H (98-107) mmol/L Carbon Dioxide 18 L (22-30) mmol/L BUN 30 H (7-17) mg/dL Creatinine 0.89 (0.52-1.04) mg/dL Glucose 122 H (74-99) mg/dL Calcium 7.6 L (8.4-10.2) mg/dL Adrenal panel 09/10/24 Range/Units 03:37 Sodium 140 (137-145) mmol/L Potassium 3.5 (3.5-5.1) mmol/L Chloride 112 H (98-107) mmol/L Carbon Dioxide 18 L (22-30) mmol/L BUN 30 H (7-17) mg/dL Creatinine 0.89 (0.52-1.04) mg/dL Glucose 122 H (74-99) mg/dL Calcium 7.6 L (8.4-10.2) mg/dL Total Bilirubin 2.2 H (0.2-1.3) mg/dL AST 138 H (14-36) U/L ALT 119 H (4-34) U/L Alkaline Phosphatase 436 H (38-126) U/L Total Protein 5.5 L (6.3-8.2) g/dL Albumin 2.1 L (3.5-5.0) g/dL
--- NOTE | 2024-09-10 15:51 | P.PN ---
Subjective Progress Note Date: 09/10/24 Principal diagnosis: Reason for follow-up is sepsis bacteremia Patient is a 69-year-old female with multiple comorbidity patient did have a significant PAD and did have a bilateral kbyjk-tgr-cnhy amputations with subsequent dehiscence of the wound patient has been sent from the local shelter to the hospital with fever, patient be diagnosed with sepsis admitted to the ICU did have a positive blood culture with Klebsiella. Patient is status post surgical debridement of bilateral AKA wound and application of wound VAC culture has been obtained On today's evaluation that is 09/10/2024,the patient remains to be afebrile, patient is on room air not requiring supplemental oxygen and denies any shortness of breath no chest pain or cough.Patient denies having any nausea or vomiting, no abdominal pain and no diarrhea has been reported. Patient white count is down to 18.2, creatinine 0.89, blood culture with Klebsiella E. coli local culture growing Serratia E. coli and strep Objective - Vital Signs Vital signs: Vital Signs Temp 97.9 F 09/10/24 12:30 Pulse 112 H 09/10/24 12:45 Resp 28 H 09/10/24 12:45 BP 113/59 09/10/24 12:45 Pulse Ox 96 09/10/24 12:45 FiO2 1 09/10/24 00:00 Intake & Output 09/09/24 09/10/24 09/10/24 18:59 06:59 18:59 Intake Total 5983.863 4864.315 2300 Output Total 470 895 260 Balance 7202.944 1850.315 2040 Weight 30.617 kg 49.9 kg 49.9 kg Intake: IV 1930 2050.0 2300 0.9 @ KVO 140 200 50 500cc bolus LR (OR) 500 Cefepime 1 gm In Sodium 50.0 Chloride 0.9% 50 ml @ 12. 5 mls/hr IVPB Q12HR [facility] Rx#:[id number] Cefepime 2 gm In Sodium 100 Chloride 0.9% 100 ml @ 25 mls/hr IVPB Q8HR [facility] Rx# :[id number] Lactated Ringers 1,000 ml 1440 1800 750 @ 150 mls/hr IV .Q6H40M [facility] Rx#:[id number] Potassium Chloride 20 meq 200 In Water For Injection 1 100ml.bag @ 50 mls/hr IVPB Q2H [facility] Rx#: [id number] Vancomycin 500 mg In 250 Sodium Chloride 0.9% 250 ml @ 125 mls/hr IVPB ONCE ONE Rx#:[id number] Vancomycin 750 mg In 250 Sodium Chloride 0.9% 250 ml @ 125 mls/hr IVPB Q24HR [facility] Rx#:[id number] Intake, IV Titration 24.427 8.315 Amount Norepinephrine 32 mg In 24.427 8.315 Sodium Chloride 0.9% 218 ml @ 0.03 MCG/KG/MIN 0. 431 mls/hr IV .Q24H [facility] Rx#:[id number] Output: Urine 470 895 250 Estimated Blood Loss 10 Other: Voiding Method Indwelling Catheter Indwelling Catheter Indwelling Catheter # Bowel Movements 1 - Exam GENERAL DESCRIPTION: An elderly female lying in bed in no distress RESPIRATORY SYSTEM: Unlabored breathing , decreased breath sounds at bases HEART: S1 S2 regular rate and rhythm , ABDOMEN: Soft , no tenderness EXTREMITIES: Bilateral AKA stump wound is covered with a wound VAC - Labs CBC & Chem 7: 09/10/24 03:37 09/10/24 12:23 Labs: Abnormal Lab Results - Last 24 Hours (Table) 09/10/24 09/10/24 09/10/24 Range/Units 03:37 03:37 03:37 WBC 18.2 H (3.8-10.6) k/uL RBC 2.95 L (3.80-5.40) m/uL Hgb 9.0 L (11.4-16.0) gm/dL Hct 28.4 L (34.0-46.0) % RDW 17.6 H (11.5-15.5) % Neutrophils # 15.7 H (1.3-7.7) k/uL Chloride 112 H (98-107) mmol/L Carbon Dioxide 18 L (22-30) mmol/L BUN 30 H (7-17) mg/dL Glucose 122 H (74-99) mg/dL Calcium 7.6 L (8.4-10.2) mg/dL Total Bilirubin 2.2 H (0.2-1.3) mg/dL AST 138 H (14-36) U/L ALT 119 H (4-34) U/L Alkaline Phosphatase 436 H (38-126) U/L Total Protein 5.5 L (6.3-8.2) g/dL Albumin 2.1 L (3.5-5.0) g/dL Procalcitonin 22.70 H (0.02-0.50) ng/mL Microbiology - Last 24 Hours (Table) 09/08/24 13:17 Blood Culture Gram Stain - Final Blood Blood Culture - Final Klebsiella Pneum subsp ozaenae Escherichia coli Molecular ID 09/09/24 05:45 Urine Culture - Final Urine,Voided 09/08/24 13:17 Gram Stain - Preliminary Leg - Left Wound Culture - Preliminary Strep agalactiae - (group b) Escherichia coli Serratia marcescens ssp marces 09/08/24 14:27 Gram Stain - Preliminary Leg - Right Wound Culture - Preliminary Strep agalactiae - (group b) Escherichia coli Klebsiella Pneum subsp ozaenae Assessment and Plan (1) Bilateral lower leg cellulitis Current Visit: Yes Status: Acute Code(s): L03.116 - CELLULITIS OF LEFT LOWER LIMB; L03.115 - CELLULITIS OF RIGHT LOWER LIMB SNOMED Code(s): 242751524 (2) Sepsis Current Visit: Yes Status: Acute Code(s): A41.9 - SEPSIS, UNSPECIFIED ORGANISM SNOMED Code(s): 44320537 (3) Bacteremia Current Visit: Yes Status: Acute Code(s): R78.81 - BACTEREMIA SNOMED Code(s): 8312122 Plan: 1patient is in the hospital with sepsis in this patient with a fever tachycardia elevated white count source is likely bilateral AKA wound and concern for osteomyelitis to the right AKA stump site however the patient also have elevated liver enzyme and there was a history of vomiting underlying abdominal source monitor excluded. 2patient has been evaluated by vascular surgery and is status post debridement of the wound and deep culture completed on 09/10/2024 3patient does have a positive blood culture with Klebsiella 4 ultrasound of the abdomen suggestive of possible cholecystitis General Surgery to be consulted recommending medical treatment at this point 5patient will be treated with cefepime and vancomycin while waiting for the surgical culture to finalize Dictation was produced using [employer] dictation software. please excuse any gra mmatical, word or spelling errors. Time with Patient: Less than 30
[2024-09-10 17:04] LABS: Glucose,Whole Blood 138 mg/dL (70-110)
[2024-09-10] MEDS: NOREPINEPHRINE 8 MG in SODIUM CHLORIDE 0.9% 250 ML IV SCH (18:25)
[2024-09-10] MEDS: CEFEPIME 2 GM in SODIUM CHLORIDE 0.9% 100 ML IVPB SCH (20:29)
[2024-09-10] MEDS: traMADol 50 MG TAB PO PRN (21:44)
[2024-09-11 06:16] LABS: ALT 71 U/L (4-34); AST 102 U/L (14-36); African American GFR (CKD) 87 (>60 ml/min/1.73 sqM); Albumin 1.8 g/dL (3.5-5.0); Alkaline Phosphatase 489 U/L (38-126); Anion Gap 7 mmol/L; Blood Urea Nitrogen 21 mg/dL (7-17); Carbon Dioxide 18 mmol/L (22-30); Chloride 112 mmol/L (98-107); Glucose 89 mg/dL (74-99); Non-African American GFR(CKD) 75 (>60 ml/min/1.73 sqM); Potassium 4.2 mmol/L (3.5-5.1); Sodium 137 mmol/L (137-145); Total Protein 4.8 g/dL (6.3-8.2)
[2024-09-11 06:22] LABS: Anisocytosis Slight; Basophils % (A) 0 %; Eosinophils # (A) 0.1 k/uL (0-0.7); Eosinophils % (A) 1 %; HCT 23.3 % (34.0-46.0); Hypochromasia Marked; Lymphocytes # (A) 0.7 k/uL (1.0-4.8); Lymphocytes % (A) 6 %; MCH 31.1 pg (25.0-35.0); MCHC 31.8 g/dL (31.0-37.0); MCV 97.8 fL (80.0-100.0); Macrocytosis Slight; Monocytes # (A) 0.2 k/uL (0-1.0); Monocytes % (A) 2 %; Neutrophils # (A) 10.3 k/uL (1.3-7.7); Neutrophils % (A) 91 %; Platelet Count 154 k/uL (150-450); RBC 2.39 m/uL (3.80-5.40); RDW 17.5 % (11.5-15.5); WBC 11.3 k/uL (3.8-10.6)
[2024-09-11 06:31] LABS: HGB 7.4 gm/dL (11.4-16.0)
--- NOTE | 2024-09-11 12:26 | P.PN ---
Subjective Progress Note Date: 09/11/24 SURGICAL PROGRESS NOTE CHIEF COMPLAINT: Bilateral ifujj-axm-ggge amputation wounds HISTORY OF PRESENT ILLNESS: Patient remains in the ICU. She is status post debridement of bilateral above-knee amputation wounds with vascular surgery. She has wound vacs in place. Her abdominal discomfort she was having yesterday has improved. She was able to tolerate diet. She denies any vomiting. She did have some nausea yesterday that has improved. Afebrile. WBC is down from 18.2- 11.3 Hgb 7.4 platelets 154 total bilirubin 2.2 down to 2.0 AST 138 down to 102 ALT 119-71 alk phos 436-489 Dr. Hernandez is covering for Dr. Aleman PHYSICAL EXAM: VITAL SIGNS: Reviewed. GENERAL: Well-developed in no acute distress. ABDOMEN: Soft. Nondistended. Very mild discomfort with palpation right upper quadrant NEUROLOGIC: Alert and oriented. Cranial nerves II through XII grossly intact. ASSESSMENT: 1. Cholecystitis with ultrasound reporting gallstones and minimal pericholecystic fluid 2. Elevated LFTs 3. Bilateral above-knee amputation wounds followed by vascular surgery PLAN: -Recommend medical management for cholecystitis. Abdominal pain has improved. Patient tolerating diet. Patient is currently on Brilinta and has bilateral above the knee wounds that required debridement by vascular surgery -No surgical intervention planned at this time -Continue antibiotics -Continue low-fat diet -Repeat labs in a.m. Physician Supervisor Fiber Locking note has been reviewed by physician. Signing provider agrees with the documented findings, assessment, and plan of care. Objective - Vital Signs Vital signs: Vital Signs Temp 97.2 F L 09/11/24 08:00 Pulse 92 09/11/24 10:00 Resp 18 09/11/24 10:00 BP 105/58 09/11/24 10:00 Pulse Ox 94 L 09/11/24 10:00 FiO2 1 09/10/24 00:00 Intake & Output 09/10/24 09/11/24 09/11/24 18:59 06:59 18:59 Intake Total 4472.905 4568.301 7580.513 Output Total 505 445 260 Balance 3967.905 1320.793 933.513 Weight 49.9 kg 45.2 kg Intake: IV 3120 110 490 0.9 @ KVO 120 110 40 500cc bolus LR (OR) 500 Lactated Ringers 1,000 ml 1500 450 @ 150 mls/hr IV .Q6H40M [facility] Rx#:[id number] Potassium Chloride 20 meq 200 In Water For Injection 1 100ml.bag @ 50 mls/hr IVPB Q2H [facility] Rx#: [id number] Vancomycin 750 mg In 250 Sodium Chloride 0.9% 250 ml @ 125 mls/hr IVPB Q24HR [facility] Rx#:[id number] Intake, IV Titration 301.115 6177.793 303.513 Amount Lactated Ringers 1,000 ml 300 1650 150 @ 150 mls/hr IV .Q6H40M [facility] Rx#:[id number] Norepinephrine 32 mg In 10.491 Sodium Chloride 0.9% 218 ml @ 0.03 MCG/KG/MIN 0. 431 mls/hr IV .Q24H [facility] Rx#:[id number] Norepinephrine 8 mg In 2.414 5.793 153.513 Sodium Chloride 0.9% 250 ml @ 0.03 MCG/KG/MIN 2. 897 mls/hr IV .Q24H [facility] Rx#:[id number] Oral 1040 400 Output: Drainage 25 Bilateral AKA wound vac 25 Urine 470 445 260 Estimated Blood Loss 10 Other: Voiding Method Indwelling Catheter Indwelling Catheter # Bowel Movements 0 - Labs CBC & Chem 7: 09/11/24 05:44 09/11/24 05:44 Labs: Abnormal Lab Results - Last 24 Hours (Table) 09/10/24 09/11/24 09/11/24 Range/Units 17:03 05:44 05:44 WBC 11.3 H (3.8-10.6) k/uL RBC 2.39 L (3.80-5.40) m/uL Hgb 7.4 L D (11.4-16.0) gm/dL Hct 23.3 L (34.0-46.0) % RDW 17.5 H (11.5-15.5) % Neutrophils # 10.3 H (1.3-7.7) k/uL Lymphocytes # 0.7 L (1.0-4.8) k/uL Chloride 112 H (98-107) mmol/L Carbon Dioxide 18 L (22-30) mmol/L BUN 21 H (7-17) mg/dL POC Glucose (mg/dL) 138 H (70-110) mg/dL Calcium 7.0 L (8.4-10.2) mg/dL Total Bilirubin 2.0 H (0.2-1.3) mg/dL AST 102 H (14-36) U/L ALT 71 H (4-34) U/L Alkaline Phosphatase 489 H (38-126) U/L Total Protein 4.8 L (6.3-8.2) g/dL Albumin 1.8 L (3.5-5.0) g/dL Microbiology - Last 24 Hours (Table) 09/08/24 14:27 Gram Stain - Final Leg - Right Wound Culture - Final Klebsiella Pneum subsp ozaenae Strep agalactiae - (group b) Escherichia coli 09/08/24 13:17 Gram Stain - Final Leg - Left Wound Culture - Final Strep agalactiae - (group b) Escherichia coli Serratia marcescens ssp marces 09/08/24 13:17 Blood Culture Gram Stain - Final Blood Blood Culture - Final Klebsiella Pneum subsp ozaenae Escherichia coli Molecular ID 09/09/24 05:45 Urine Culture - Final Urine,Voided
--- NOTE | 2024-09-11 12:26 | P.PN ---
Subjective Admitted 09/08 with chief complaint of fever, leg wounds, and cellulitis. 69-year-old female with PMH of coronary artery disease hypertension hyperl ipidemia NH reflux in this patient who did have right [id number] amputation done at [facility] subsequently left aslze-ycw-fajo amputation at [facility]. In the ER x-ray of the right femur showed concerning signs of contiguous osteomyelitis. Initial blood cultures were positive for E. coli plus Klebsiella pneumonia and at that time patient was started on vancomycin and Rocephin while awaiting cultures to finalize. Chest x-ray done on admission showed potential CHF with mild pulmonary vascular congestion and trace right pleural effusion which is improved from prior. CBC: WBC 11.3, hemoglobin 9.8, hematocrit 30.7, platelets 270. CMP: Sodium 143, potassium 4.5, CO2 20, BUN 46, creatinine 1.3, glucose 167, total bilirubin 2.3, AST 981, ALT 438, alkaline phosphatase 740. Troponin 0.096. Lactic acid 1.8. Patient is on 2 L nasal cannula SpO2 100%. Patient is seen this morning in the intensive care unit. No significant overnight events. Patient complaining of pain in the bilateral lower extremities (AKA). Ultrasound team is in the room this morning performing abdominal ultrasound. Vital show heart rate 96, respiratory rate 20, blood pressure 102/50, O2 saturation 94% on 2 L nasal cannula. Progress note dated September 10, 2024: Patient is seen in the intensive care unit this morning. No significant overnight events. There was a concern about urine output yesterday, but since then the patient has put out 1.3 L in the last 24 hours. Patient is expected to go for debridement of the bilateral AKA sites today. CBC: WBC 18.2, hemoglobin 9.0, hematocrit 28.4, platelets 270. CMP: Sodium 140, potassium 3.5, chloride 1 12, BUN 30, creatinine 0.89, calcium 7.6, albumin 2.1, AST 138, ALT 119, alkaline phosphatase 436. Now saturating well on room air, but still requiring Levophed 3 mcg/min after failed attempts to wean yesterday with a dropping MAP. On day 2 of cefepime and vancomycin. LR running at 150 cc/h. Progress note dated September 11, 2024: Patient is seen in the intensive care unit this morning. No significant overnight events. Patient is recovering well after bilateral debridement of the AKA stumps. Reports better pain control in bilateral AKA stumps after debridement yesterday. CBC: WBC 11.3, hemoglobin 7 .4, platelet count 54. CMP: Sodium 137, potassium 4.2, CO2 18, creatinine 0.8, AST 102, ALT 71, and alkaline phosphatase 49. Continues to saturate well on room air, still requiring levo 3 mcg/min, on day 3 of cefepime and vancomycin, and LR running at 150 cc/h. Left and right leg wound cultures have finalized with Klebsiella, strep agalactiae, E. coli, and Serratia with sensitivities back as well. Physical examination: GENERAL: The patient is alert and oriented x3, not in any acute distress. Well developed, well nourished. HEENT: Pupils are round and equally reacting to light. EOMI. No scleral icterus. No conjunctival pallor. Normocephalic, atraumatic. No pharyngeal erythema. No thyromegaly. CARDIOVASCULAR: S1 and S2 present. No murmurs, rubs, or gallops. PULMONARY: Chest is clear to auscultation, no wheezing , no crackles. -ABDOMEN: Soft, nondistended, normoactive bowel sounds. No palpable organomegaly. Suprapubic tenderness. Infante catheter in place MUSCULOSKELETAL: No joint swelling or deformity. -EXTREMITIES: No cyanosis, clubbing, or pedal edema. Bilateral AKA with superficial wounds of the bilateral stumps with some purulent discharge in the base which looks dried. Mild tenderness in the right AKA stump distally NEUROLOGICAL: Gross neurological examination did not reveal any focal deficits. SKIN: No rashes. no petechiae. Assessment: Hypotension secondary to sepsis, preliminary blood cultures positive for E. coli and Klebsiella pneumoniae Transaminitis: Improved Elevated troponins MARCY likely secondary to hypotension: Resolved History of hypertension History of hyperlipidemia Plan dated September 09, 2024 Continue vancomycin and cefepime for treatment of documented positive blood cultures for E. coli and Klebsiella Abdominal ultrasound taken for significant transaminitis, showed cholelithiasis with some minimal pericholecystic fluid with thickening of the adjacent gallbladder wall. Minimal ascites may be present. Will continue to monitor LFTs, likely elevated secondary to hypotension. Continue to titrate down Levophed as patient's pressures continue to stabilize. If patient can be off Levophed for 6 hours she can be transferred to the medicine floor. Ordered renal bladder ultrasound in the setting of MARCY and poor urine output Vascular surgery on consult for bilateral AKA with suspected osteomyelitis in right femur, appreciate recommendations Labs, x-rays, and all medications are reviewed. Further recommendations suggestions are forthcoming. Prognosis is guarded. Plan dated September 10, 2024 Continue vancomycin and cefepime (day 2) for positive blood cultures showing Klebsiella Pneum subsp ozaenae, right leg wound positive for strep agalactiae, E. coli, and Klebsiella. Left leg positive for strep agalactiae and gram- negative bacilli. These are all preliminary results. Transaminitis continues to improve after jainism of normal BP, potentially indicating shock liver but cannot rule out sepsis as a culprit. Continue trying to titrate down Levophed, currently on 3 mcg/min. LR running at 150 cc/h. Blood pressure has remained stable on this current regimen. Urine output over last 24 hours is 1.3 L, continue to monitor. Improved from yesterday. Patient underwent bilateral debridement of both AKA's, appreciate further recommendations from vascular surgery Labs, x-rays, and all medications are reviewed. Further recommendations and suggestions are forthcoming. Prognosis is guarded. Plan dated September 11, 2024 -Postop day 1 for bilateral debridement of bilateral AKA's -Continue vancomycin and cefepime (day 3) wound culture for bilateral AKA stumps finalized and confirm infection with Klebsiella, strep agalactiae, and E. coli. -Ordered random cortisol and TSH -Increased home midodrine dose to 10 mg 3 times daily with hopes to discontinue levo today -Transaminitis continues to improve likely secondary to shock liver -Labs, x-rays, and all medications are reviewed. -Further recommendations and suggestions are forthcoming. -Prognosis is guarded. Objective - Vital Signs Vital signs: Vital Signs Temp 98.0 F 09/11/24 04:00 Pulse 87 09/11/24 07:00 Resp 16 09/11/24 07:00 BP 99/46 09/11/24 07:00 Pulse Ox 98 09/11/24 06:45 FiO2 1 09/10/24 00:00 Intake & Output 09/10/24 09/11/24 09/11/24 18:59 06:59 18:59 Intake Total 4472.905 1765.793 560 Output Total 505 445 35 Balance 3967.905 1320.793 525 Weight 49.9 kg 45.2 kg Intake: IV 3120 110 10 0.9 @ KVO 120 110 10 500cc bolus LR (OR) 500 Lactated Ringers 1,000 ml 1500 @ 150 mls/hr IV .Q6H40M [facility] Rx#:[id number] Potassium Chloride 20 meq 200 In Water For Injection 1 100ml.bag @ 50 mls/hr IVPB Q2H [facility] Rx#: [id number] Vancomycin 750 mg In 250 Sodium Chloride 0.9% 250 ml @ 125 mls/hr IVPB Q24HR [facility] Rx#:[id number] Intake, IV Titration 905.822 5587.793 150 Amount Lactated Ringers 1,000 ml 300 1650 150 @ 150 mls/hr IV .Q6H40M [facility] Rx#:[id number] Norepinephrine 32 mg In 10.491 Sodium Chloride 0.9% 218 ml @ 0.03 MCG/KG/MIN 0. 431 mls/hr IV .Q24H [facility] Rx#:[id number] Norepinephrine 8 mg In 2.414 5.793 Sodium Chloride 0.9% 250 ml @ 0.03 MCG/KG/MIN 2. 897 mls/hr IV .Q24H [facility] Rx#:[id number] Oral 1040 400 Output: Drainage 25 Bilateral AKA wound vac 25 Urine 470 445 35 Estimated Blood Loss 10 Other: Voiding Method Indwelling Catheter Indwelling Catheter # Bowel Movements 0 - Labs CBC & Chem 7: 09/11/24 05:44 09/11/24 05:44 Labs: Abnormal Lab Results - Last 24 Hours (Table) 09/10/24 09/10/24 09/11/24 Range/Units 03:37 17:03 05:44 WBC 11.3 H (3.8-10.6) k/uL RBC 2.39 L (3.80-5.40) m/uL Hgb 7.4 L D (11.4-16.0) gm/dL Hct 23.3 L (34.0-46.0) % RDW 17.5 H (11.5-15.5) % Neutrophils # 10.3 H (1.3-7.7) k/uL Lymphocytes # 0.7 L (1.0-4.8) k/uL Chloride (98-107) mmol/L Carbon Dioxide (22-30) mmol/L BUN (7-17) mg/dL POC Glucose (mg/dL) 138 H (70-110) mg/dL Calcium (8.4-10.2) mg/dL Total Bilirubin (0.2-1.3) mg/dL AST (14-36) U/L ALT (4-34) U/L Alkaline Phosphatase (38-126) U/L Total Protein (6.3-8.2) g/dL Albumin (3.5-5.0) g/dL Procalcitonin 22.70 H (0.02-0.50) ng/mL 09/11/24 Range/Units 05:44 WBC (3.8-10.6) k/uL RBC (3.80-5.40) m/uL Hgb (11.4-16.0) gm/dL Hct (34.0-46.0) % RDW (11.5-15.5) % Neutrophils # (1.3-7.7) k/uL Lymphocytes # (1.0-4.8) k/uL Chloride 112 H (98-107) mmol/L Carbon Dioxide 18 L (22-30) mmol/L BUN 21 H (7-17) mg/dL POC Glucose (mg/dL) (70-110) mg/dL Calcium 7.0 L (8.4-10.2) mg/dL Total Bilirubin 2.0 H (0.2-1.3) mg/dL AST 102 H (14-36) U/L ALT 71 H (4-34) U/L Alkaline Phosphatase 489 H (38-126) U/L Total Protein 4.8 L (6.3-8.2) g/dL Albumin 1.8 L (3.5-5.0) g/dL Procalcitonin (0.02-0.50) ng/mL Microbiology - Last 24 Hours (Table) 09/08/24 14:27 Gram Stain - Final Leg - Right Wound Culture - Final Klebsiella Pneum subsp ozaenae Strep agalactiae - (group b) Escherichia coli 09/08/24 13:17 Gram Stain - Final Leg - Left Wound Culture - Final Strep agalactiae - (group b) Escherichia coli Serratia marcescens ssp ria 09/08/24 13:17 Blood Culture Gram Stain - Final Blood Blood Culture - Final Klebsiella Pneum subsp ozaenae Escherichia coli Molecular ID 09/09/24 05:45 Urine Culture - Final Urine,Voided
[2024-09-11] MEDS: MIDODRINE 5 MG TAB PO SCH (12:46)
--- NOTE | 2024-09-12 04:49 | P.PN ---
Subjective This is a pleasant 69 years old female who was sent from [facility] for altered mental status. 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 Since 07/2024. Patient also states she vomited once earlier. Patient fully awake and oriented, can answer questions appropriately and follows command, she does not look in distress. On admission her blood pressure was on the low side 68/53 5 sh she need to be transferred to ICU for start pressors, currently her blood pressure is better 102/50. She is having fever 103 on admission. She denies chest pain or dyspnea no right upper quadrant abdominal pain. No reports of diarrhea. Urine looks dark in the Infante catheter. No dysuria for the patient. Labs reviewed she has unremarkable CBC, BMP and LFT. Urinalysis is highly suspicious for infection Urine culture is pending Abdominal ultrasound showing cholelithiasis with minimal cholecystic fluid with thickening of the adjacent gallbladder suspicious for acute cholecystitis, however clinically does not behave like inflamed gallbladder Femur x-ray showing right AKA stump with hazy ostomy margin suspicious for osteomyelitis by the left AKA showing sharp ostomy margins. Chest x-ray showed combination of COPD and chronic CHF. Patient currently treated with broad-spectrum antibiotics with cefepime and IV vancomycin. Patient also on Ringer lactate at 130 mL/h She is continued on aspirin and Brilinta. 1/2 Patient is up in bed getting breathing treatment fully awake and oriented Still complaining from suprapubic pain and tenderness, Infante catheter is in place and picking up her urine output, overnight her urine output was low so increase her fluid currently she is getting Ringer lactate at 150 mL/h also she is getting Levophed at 0.06. Her urine output this morning improved and currently 50-100. Overnight they tried to wean off Levophed and blood pressure dropped. They will try again this morning. Patient remains on antibiotics cefepime and IV vancomycin for her sepsis, several sources are suspected. Most likely the source is acute urinary tract infection I spoke with Dr. Rg this morning, he still suspect there is acute cholecystitis at the source of her sepsis and he recommended cholecystectomy but not currently because of her clinical condition and because she has been on Brilinta Also she has infected stump wounds in both legs and she is going for OR today especially on the right side however per vascular surgery it is unlikely to be the source of infection. Currently patient n.p.o. for the procedure 09/11 Patient remains awake and alert sitting up in bed. Mentation at baseline. Both AKA stumps are in a dressing after she underwent debridement yesterday, parents is more severe in these areas as patient explains. However patient still complains from suprapubic and RUQ tenderness today. No other new complaint. The patient She remains on IV vancomycin and cefepime and dual antiplatelet therapy with aspirin and Brilinta from home Her numbers are improving with WBC down 26, 18 and today 11.3, creatinine 1.1 on admission came back to 0.8 Hemoglobin also came down to 9.6 down to 7.4 but this is after debridement and will continue close monitoring and will transfuse if hemoglobin less than 7 Liver enzymes trending down as well Patient continue to need very close monitoring in the ICU with frequent rounding Review of systems CONSTITUTIONAL: No fever, no malaise, no fatigue. HEENT: No recent visual problems or hearing problems. Denied any sore throat. CARDIOVASCULAR: No orthopnea, PND, no palpitations, no syncope. PULMONARY: No shortness of breath, no cough, no hemoptysis. GENITOURINARY: Denies any burning micturition, frequency, or urgency. MUSCULOSKELETAL/RHEUMATOLOGICAL: Denies any joint pain, swelling, or any muscle pain. ENDOCRINE: Denies any polyuria or polydipsia. Active Medications Generic Name Dose Route Start Last Admin Trade Name Freq PRN Reason Stop Dose Admin Acetaminophen 650 mg 09/08/24 14:31 Acetaminophen Tab 325 Mg Tab PO Q6HR PRN Mild Pain or Fever > 100.5 Aspirin 81 mg 09/08/24 21:00 09/11/24 20:52 Aspirin 81 Mg PO 81 mg HS [facility] Administration Atorvastatin Calcium 80 mg 09/08/24 21:00 09/11/24 20:52 Atorvastatin 80 Mg Tab PO 80 mg HS [facility] Administration Budesonide/Formoterol Fumarate 2 puff 09/08/24 19:00 09/11/24 21:06 Symbicort 80-4.5 Mcg Inhaler INHALATION 2 puff RT-BID@0700,1900 [facility] Administration Dapagliflozin 10 mg 09/09/24 09:00 09/11/24 08:37 Dapagliflozin Propanediol 10 Mg Tablet PO 10 mg DAILY [facility] Administration Docusate Sodium 100 mg 09/08/24 21:00 09/11/24 20:53 Docusate 100 Mg Cap PO Not Given BID [facility] Lactated Ringer's 1,000 mls @ 150 mls/hr 09/08/24 13:00 09/11/24 20:53 Lactated Ringers IV 150 mls/hr .Q6H40M [facility] Administration Cefepime HCl 2 gm/ Sodium 100 mls @ 25 mls/hr 09/10/24 21:00 09/11/24 20:52 Chloride IVPB 25 mls/hr Q12HR [facility] Administration Vancomycin HCl 750 mg/ Sodium 250 mls @ 125 mls/hr 09/10/24 09:30 09/11/24 08:40 Chloride IVPB 125 mls/hr Q24HR [facility] Administration Norepinephrine Bitartrate 8 mg 258 mls @ 2.897 mls/hr 09/10/24 18:15 09/11/24 17:34 / Sodium Chloride IV 0.02 mcg/kg/min .Q24H [facility] 1.931 mls/hr Titration Protocol 0.03 MCG/KG/MIN Ibuprofen 400 mg 09/08/24 14:31 09/11/24 17:14 Ibuprofen 400 Mg Tab PO 400 mg Q6HR PRN Administration Mild Pain or Fever > 100.5 Ipratropium [place] 0.5 mg 09/09/24 08:00 09/11/24 21:06 Ipratropium 0.5 Mg/2.5 Ml Nebu INHALATION 0.5 mg RT-QID [facility] Administration Methocarbamol 750 mg 09/08/24 16:01 Methocarbamol 750 Mg Tab PO QID PRN Muscle Spasm Midodrine 10 mg 09/11/24 13:00 09/11/24 18:31 Midodrine 5 Mg Tab PO 10 mg TID@07,13,19 [facility] Administration Mirtazapine 15 mg 09/08/24 21:00 09/11/24 20:52 Mirtazapine 15 Mg Tab PO 15 mg HS [facility] Administration Miscellaneous Information 1 each 09/10/24 06:42 Potassium Replacement Protocol 1 Each Misc MISCELLANE DAILY PRN Per Protocol Protocol Naloxone HCl 0.2 mg 09/08/24 14:31 Naloxone 0.4 Mg/Ml 1 Ml Vial IV Q2M PRN Opioid Reversal Ondansetron HCl 4 mg 09/09/24 09:38 09/09/24 09:42 Ondansetron 4 Mg/2 Ml Vial IVP 4 mg Q6HR PRN Administration Nausea And Vomiting Pantoprazole Sodium 40 mg 09/09/24 09:00 09/11/24 08:37 Pantoprazole 40 Mg Tablet PO 40 mg DAILY [facility] Administration Polyethylene Glycol 17 gm 09/08/24 16:01 Polyethylene Glycol 3350 17 Gm Powd.Pack PO DAILY PRN Constipation Pregabalin 50 mg 09/08/24 19:00 09/11/24 18:31 Pregabalin 50 Mg Cap PO 50 mg TID@0700,1300,1900 [facility] Administration Sacubitril/Valsartan 1 each 09/08/24 21:00 09/11/24 23:20 Sacubitril/Valsartan 24 Mg-26 Mg Tablet PO Not Given BID [facility] Senna 8.6 mg 09/08/24 16:01 Sennosides 8.6 Mg Tab PO Q12H PRN Constipation Ticagrelor 90 mg 09/08/24 21:00 09/11/24 20:52 Ticagrelor 90 Mg Tab PO 90 mg BID [facility] Administration Tramadol HCl 50 mg 09/08/24 16:01 09/11/24 13:46 Tramadol 50 Mg Tab PO 50 mg Q6H PRN Administration Pain Objective - Vital Signs Vital signs: Vital Signs Temp 97.2 F L 09/11/24 08:00 Pulse 90 09/11/24 15:15 Resp 16 09/11/24 15:15 BP 93/49 09/11/24 15:00 Pulse Ox 98 09/11/24 14:45 FiO2 1 09/10/24 00:00 Intake & Output 09/10/24 09/11/24 09/11/24 18:59 06:59 18:59 Intake Total 4472.905 0418.991 0634.162 Output Total 505 445 590 Balance 3967.905 5827.014 5382.162 Weight 49.9 kg 45.2 kg Intake: IV 3120 110 1290 0.9 @ KVO 120 110 90 500cc bolus LR (OR) 500 Lactated Ringers 1,000 ml 1500 1200 @ 150 mls/hr IV .Q6H40M [facility] Rx#:[id number] Potassium Chloride 20 meq 200 In Water For Injection 1 100ml.bag @ 50 mls/hr IVPB Q2H [facility] Rx#: [id number] Vancomycin 750 mg In 250 Sodium Chloride 0.9% 250 ml @ 125 mls/hr IVPB Q24HR [facility] Rx#:[id number] Intake, IV Titration 049.079 4792.793 309.162 Amount Lactated Ringers 1,000 ml 300 1650 150 @ 150 mls/hr IV .Q6H40M [facility] Rx#:[id number] Norepinephrine 32 mg In 10.491 Sodium Chloride 0.9% 218 ml @ 0.03 MCG/KG/MIN 0. 431 mls/hr IV .Q24H [facility] Rx#:[id number] Norepinephrine 8 mg In 2.414 5.793 159.162 Sodium Chloride 0.9% 250 ml @ 0.03 MCG/KG/MIN 2. 897 mls/hr IV .Q24H [facility] Rx#:[id number] Oral 1040 400 Output: Drainage 25 50 Bilateral AKA wound vac 25 50 Urine 470 445 540 Estimated Blood Loss 10 Other: Voiding Method Indwelling Catheter Indwelling Catheter Indwelling Catheter # Bowel Movements 0 - Exam GENERAL: The patient is alert and oriented x3, not in any acute distress. Well developed, well nourished. HEENT: Pupils are round and equally reacting to light. EOMI. No scleral icterus. No conjunctival pallor. Normocephalic, atraumatic. No pharyngeal erythema. No thyromegaly. CARDIOVASCULAR: S1 and S2 present. No murmurs, rubs, or gallops. PULMONARY: Chest is clear to auscultation, no wheezing , no crackles. -ABDOMEN: Soft, nondistended, normoactive bowel sounds. No palpable organomegaly. Suprapubic tenderness. Infante catheter in place MUSCULOSKELETAL: No joint swelling or deformity. -EXTREMITIES: No cyanosis, clubbing, or pedal edema. Bilateral AKA with superficial wounds of the bilateral stumps with dressing in place after debridement on 09/10 NEUROLOGICAL: Gross neurological examination did not reveal any focal deficits. SKIN: No rashes. no petechiae. - Labs CBC & Chem 7: 09/11/24 05:44 09/11/24 05:44 Labs: Abnormal Lab Results - Last 24 Hours (Table) 09/10/24 09/11/24 09/11/24 Range/Units 17:03 05:44 05:44 WBC 11.3 H (3.8-10.6) k/uL RBC 2.39 L (3.80-5.40) m/uL Hgb 7.4 L D (11.4-16.0) gm/dL Hct 23.3 L (34.0-46.0) % RDW 17.5 H (11.5-15.5) % Neutrophils # 10.3 H (1.3-7.7) k/uL Lymphocytes # 0.7 L (1.0-4.8) k/uL Chloride 112 H (98-107) mmol/L Carbon Dioxide 18 L (22-30) mmol/L BUN 21 H (7-17) mg/dL POC Glucose (mg/dL) 138 H (70-110) mg/dL Calcium 7.0 L (8.4-10.2) mg/dL Total Bilirubin 2.0 H (0.2-1.3) mg/dL AST 102 H (14-36) U/L ALT 71 H (4-34) U/L Alkaline Phosphatase 489 H (38-126) U/L Total Protein 4.8 L (6.3-8.2) g/dL Albumin 1.8 L (3.5-5.0) g/dL Microbiology - Last 24 Hours (Table) 09/10/24 11:05 Gram Stain - Preliminary Leg - Right 09/08/24 13:17 Blood Culture Gram Stain - Final Blood Blood Culture - Preliminary Klebsiella Pneum subsp ozaenae Escherichia coli Molecular ID 09/10/24 11:10 Gram Stain - Preliminary Leg - Left 09/08/24 14:27 Gram Stain - Final Leg - Right Wound Culture - Final Klebsiella Pneum subsp ozaenae Strep agalactiae - (group b) Escherichia coli 09/08/24 13:17 Gram Stain - Final Leg - Left Wound Culture - Final Strep agalactiae - (group b) Escherichia coli Serratia marcescens ssp marces 09/09/24 05:45 Urine Culture - Final Urine,Voided Assessment and Plan Assessment: Cellulitis and infections of bilateral AKA stumps, there is suspicion of osteomyelitis at the distal margins of the right stump per x-ray. Status post I&D by vascular surgery on 09/10 Acute urinary tract infection with suprapubic tenderness. Urine cultures pending Gallbladder disease with gallstones, but there is suspicion of acute cholecystitis Severe sepsis/septic shock, present on admission, improving Peripheral artery disease Plan: continue with broad-spectrum antibiotics, currently on cefepime and IV vancomycin Continue with IV fluid Continue with pressors as needed, currently on Levophed, wean it down Continu dual antiplatelet therapy S/p 09/10/24 for I&D of the AKA stumps Several consultants on the case including pulmonary/critical, vascular surgery and ID team General Surgery also seen the patient Labs and medication were reviewed.. Continue same treatment. Continue with symptomatic treatment. Resume home medication. Monitor labs and vitals. DVT and GI prophylaxis. Further recommendations as per clinical course of the patient DVT prophylaxis: On dual antiplatelet therapy GI Prophylaxis: Protonix Prognosis is guarded
[2024-09-12 05:54] LABS: African American GFR (CKD) >90 (>60 ml/min/1.73 sqM); Anion Gap 5 mmol/L; Blood Urea Nitrogen 16 mg/dL (7-17); Calcium 6.5 mg/dL (8.4-10.2); Carbon Dioxide 19 mmol/L (22-30); Chloride 111 mmol/L (98-107); Glucose 86 mg/dL (74-99); Non-African American GFR(CKD) 83 (>60 ml/min/1.73 sqM); Potassium 3.5 mmol/L (3.5-5.1); Sodium 135 mmol/L (137-145)
[2024-09-12 06:38] LABS: Anisocytosis Slight; Basophils % (A) 0 %; Eosinophils # (A) 0.2 k/uL (0-0.7); Eosinophils % (A) 2 %; HCT 23.7 % (34.0-46.0); HGB 7.6 gm/dL (11.4-16.0); Hypochromasia Marked; Lymphocytes # (A) 1.1 k/uL (1.0-4.8); Lymphocytes % (A) 16 %; MCH 31.1 pg (25.0-35.0); MCV 97.1 fL (80.0-100.0); Macrocytosis Slight; Mean Platelet Volume 8.5; Monocytes # (A) 0.2 k/uL (0-1.0); Monocytes % (A) 2 %; Neutrophils # (A) 5.3 k/uL (1.3-7.7); Neutrophils % (A) 77 %; Platelet Count 133 k/uL (150-450); Poikilocytosis Slight; RBC 2.44 m/uL (3.80-5.40); RDW 17.5 % (11.5-15.5); WBC 6.9 k/uL (3.8-10.6)
[2024-09-12] MEDS: POTASSIUM CHLORIDE ER 20 MEQ TAB.ER PO SCH ×2 (07:02→11:06)
[2024-09-12 07:21] LABS: T4, Free (Free Thyroxine) 1.74 ng/dL (0.78-2.19)
[2024-09-12] MEDS ORDERED: Potassium Replacement Protocol 1 EACH MISC MISCELLANE PRN (10:49)
--- NOTE | 2024-09-12 11:38 | P.PN ---
Subjective Admitted 09/08 with chief complaint of fever, leg wounds, and cellulitis. 69-year-old female with PMH of coronary artery disease hypertension hyper lipidemia OR reflux in this patient who did have right ruciw-kaf-noxr amputation done at [facility] subsequently left ckqyj-aqk-lqvv amputation at [facility]. In the ER x-ray of the right femur showed concerning signs of contiguous osteomyelitis. Initial blood cultures were positive for E. coli plus Klebsiella pneumonia and at that time patient was started on vancomycin and Rocephin while awaiting cultures to finalize. Chest x-ray done on admission showed potential CHF with mild pulmonary vascular congestion and trace right pleural effusion which is improved from prior. CBC: WBC 11.3, hemoglobin 9.8, hematocrit 30.7, platelets 270. CMP: Sodium 143, potassium 4.5, CO2 20, BUN 46, creatinine 1.3, glucose 167, total bilirubin 2.3, AST 981, ALT 438, alkaline phosphatase 740. Troponin 0.096. Lactic acid 1.8. Patient is on 2 L nasal cannula SpO2 100%. Patient is seen this morning in the intensive care unit. No significant overnight events. Patient complaining of pain in the bilateral lower extremities (AKA). Ultrasound team is in the room this morning performing abdominal ultrasound. Vital show heart rate 96, respiratory rate 20, blood pressure 102/50, O2 saturation 94% on 2 L nasal cannula. Progress note dated September 10, 2024: Patient is seen in the intensive care unit this morning. No significant overnight events. There was a concern about urine output yesterday, but since then the patient has put out 1.3 L in the last 24 hours. Patient is expected to go for debridement of the bilateral AKA sites today. CBC: WBC 18.2, hemoglobin 9.0, hematocrit 28.4, platelets 270. CMP: Sodium 140, potassium 3.5, chloride 112, BUN 30, creatinine 0.89, calcium 7.6, albumin 2.1, AST 138, ALT 119, alkaline phosphatase 436. Now saturating well on room air, but still requiring Levophed 3 mcg/min after failed attempts to wean yesterday with a dropping MAP. On day 2 of cefepime and vancomycin. LR running at 150 cc/h. Progress note dated September 11, 2024: Patient is seen in the intensive care unit this morning. No significant overnight events. Patient is recovering well after bilateral debridement of the AKA stumps postop day 2. Patient is having some confusion, only A&O x 2, is unable to state the year. Patient was having some hallucinations yesterday, stated seeing a cat in the hallway. Reports better pain control in bilateral AKA stumps after debridement yesterday. CBC: WBC 11.3, hemoglobin 7 .4, platelet count 54. CMP: Sodium 137, potassium 4.2, CO2 18, creatinine 0.8, AST 102, ALT 71, and alkaline phosphatase 49. Continues to saturate well on room air, still requiring levo 3 mcg/min, on day 3 of cefepime and vancomycin, and LR running at 150 cc/h. Left and right leg wound cultures have finalized with Klebsiella, strep agalactiae, E. coli, and Serratia with sensitivities back as well. Progress note dated September 12, 2024: Patient is seen in the intensive care unit this morning. No significant overnight events. CBC: WBC 6.9, hemoglobin 7.6, platelet count 133. CMP: Sodium 135, potassium 3.5, chloride 111 TSH 7.3, free T4 1.74. Levo running at 0.45 mcg/min, reduce LR to 100 cc/h from 150 due to water retention and swelling. Continues saturate well on room air. On day 4 of cefepime and vancomycin. Physical examination: GENERAL: The patient is alert and oriented x3, not in any acute distress. Well developed, well nourished. HEENT: Pupils are round and equally reacting to light. EOMI. No scleral icterus. No conjunctival pallor. Normocephalic, atraumatic. No pharyngeal erythema. No thyromegaly. CARDIOVASCULAR: S1 and S2 present. No murmurs, rubs, or gallops. PULMONARY: Chest is clear to auscultation, no wheezing , no crackles. -ABDOMEN: Soft, nondistended, normoactive bowel sounds. No palpable organomegaly. Suprapubic tenderness. Infante catheter in place MUSCULOSKELETAL: No joint swelling or deformity. -EXTREMITIES: No cyanosis, clubbing. Swelling/minimal edema of the upper extremities bilaterally. Bilateral AKA with superficial wounds of the bilateral stumps with some purulent discharge in the base which looks dried. Mild tenderness in the right AKA stump distally NEUROLOGICAL: Gross neurological examination did not reveal any focal deficits. SKIN: No rashes. no petechiae. Assessment: Hypotension secondary to sepsis, preliminary blood cultures positive for E. coli and Klebsiella pneumoniae Transaminitis: Improved Elevated troponins MARCY likely secondary to hypotension: Resolved Subclinical hypothyroidism History of hypertension History of hyperlipidemia Plan dated September 09, 2024 Continue vancomycin and cefepime for treatment of documented positive blood cultures for E. coli and Klebsiella Abdominal ultrasound taken for significant transaminitis, showed cholelithiasis with some minimal pericholecystic fluid with thickening of the adjacent gallbladder wall. Minimal ascites may be present. Will continue to monitor LFTs, likely elevated secondary to hypotension. Continue to titrate down Levophed as patient's pressures continue to stabilize. If patient can be off Levophed for 6 hours she can be transferred to the medicine floor. Ordered renal bladder ultrasound in the setting of MARCY and poor urine output Vascular surgery on consult for bilateral AKA with suspected osteomyelitis in right femur, appreciate recommendations Labs, x-rays, and all medications are reviewed. Further recommendations suggestions are forthcoming. Prognosis is guarded. Plan dated September 10, 2024 Continue vancomycin and cefepime (day 2) for positive blood cultures showing Klebsiella Pneum subsp ozaenae, right leg wound positive for strep agalactiae, E. coli, and Klebsiella. Left leg positive for strep agalactiae and gram- negative bacilli. These are all preliminary results. Transaminitis continues to improve after mosque of normal BP, potentially indicating shock liver but cannot rule out sepsis as a culprit. Continue trying to titrate down Levophed, currently on 3 mcg/min. LR running at 150 cc/h. Blood pressure has remained stable on this current regimen. Urine output over last 24 hours is 1.3 L, continue to monitor. Improved from yesterday. Patient underwent bilateral debridement of both AKA's, appreciate further recommendations from vascular surgery Labs, x-rays, and all medications are reviewed. Further recommendations and suggestions are forthcoming. Prognosis is guarded. Plan dated September 11, 2024 -Postop day 1 for bilateral debridement of bilateral AKA's -Continue vancomycin and cefepime (day 3) wound culture for bilateral AKA stumps finalized and confirm infection with Klebsiella, strep agalactiae, and E. coli. -Ordered random cortisol and TSH -Increased home midodrine dose to 10 mg 3 times daily with hopes to discontinue levo today -Transaminitis continues to improve likely secondary to shock liver -Labs, x-rays, and all medications are reviewed. -Further recommendations and suggestions are forthcoming. -Prognosis is guarded. Plan dated September 12, 2024 -Postop day 2 for bilateral debridement of bilateral AKA's -Continue vancomycin and cefepime (day 4), wound cultures finalized at this point -Preliminary tissue culture from left leg shows Serratia and in the right leg it shows E. coli -Patient found to have subclinical hypothyroidism, pending cortisol -Continue increased dose of home midodrine at 10 mg 3 times a day, will try to completely wean off Levophed today -Decreased LR rate after patient had some swelling in the extremities -Labs, x-rays, and all medications are reviewed. -Further recommendations and suggestions are forthcoming. -Prognosis is guarded. Objective - Vital Signs Vital signs: Vital Signs Temp 97.4 F L 09/12/24 04:00 Pulse 67 09/12/24 06:30 Resp 18 09/12/24 06:30 BP 101/46 09/12/24 06:30 Pulse Ox 98 09/12/24 06:30 FiO2 1 09/10/24 00:00 Intake & Output 09/11/24 09/12/24 09/12/24 18:59 06:59 18:59 Intake Total 2490.557 2020 Output Total 760 650 Balance 7010.443 6098 Weight 50.2 kg Intake: IV 1770 1920 0.9 @ KVO 120 120 Lactated Ringers 1,000 ml 1650 1800 @ 150 mls/hr IV .Q6H40M AMANDA Rx#:[id number] Intake, IV Titration 320.557 100 Amount Cefepime 2 gm In Sodium 100 Chloride 0.9% 100 ml @ 25 mls/hr IVPB Q8HR AMANDA Rx# :[id number] Lactated Ringers 1,000 ml 150 @ 150 mls/hr IV .Q6H40M AMANDA Rx#:[id number] Norepinephrine 8 mg In 170.557 Sodium Chloride 0.9% 250 ml @ 0.03 MCG/KG/MIN 2. 897 mls/hr IV .Q24H AMANDA Rx#:[id number] Oral 400 Output: Drainage 50 Bilateral AKA wound vac 50 Urine 710 650 Other: Voiding Method Indwelling Catheter Indwelling Catheter - Labs CBC & Chem 7: 09/12/24 04:56 09/12/24 09:49 Labs: Abnormal Lab Results - Last 24 Hours (Table) 09/12/24 09/12/24 Range/Units 04:56 04:56 RBC 2.44 L (3.80-5.40) m/uL Hgb 7.6 L (11.4-16.0) gm/dL Hct 23.7 L (34.0-46.0) % RDW 17.5 H (11.5-15.5) % Plt Count 133 L (150-450) k/uL Sodium 135 L (137-145) mmol/L Chloride 111 H (98-107) mmol/L Carbon Dioxide 19 L (22-30) mmol/L Calcium 6.5 L (8.4-10.2) mg/dL TSH 7.300 H (0.465-4.680) mIU/L Microbiology - Last 24 Hours (Table) 09/10/24 11:05 Gram Stain - Preliminary Leg - Right Tissue Culture - Preliminary Escherichia coli 09/10/24 11:10 Gram Stain - Preliminary Leg - Left Tissue Culture - Preliminary Serratia marcescens ssp marces 09/08/24 13:17 Blood Culture Gram Stain - Final Blood Blood Culture - Preliminary Klebsiella Pneum subsp ozaenae Escherichia coli Molecular ID 09/08/24 14:27 Gram Stain - Final Leg - Right Wound Culture - Final Klebsiella Pneum subsp ozaenae Strep agalactiae - (group b) Escherichia coli 09/08/24 13:17 Gram Stain - Final Leg - Left Wound Culture - Final Strep agalactiae - (group b) Escherichia coli Serratia marcescens ssp marces
[2024-09-12] MEDS: MIDODRINE 5 MG TAB PO SCH (12:07)
[2024-09-12] MEDS: LACTATED RINGERS 1,000 ML IV SCH (12:32)
--- NOTE | 2024-09-12 14:55 | P.PN ---
Subjective Progress Note Date: 09/12/24 This is a pleasant 69 years old female who was sent from [facility] for altered mental status. 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 Since 07/2024. Patient also states she vomited once earlier. Patient fully awake and oriented, can answer questions appropriately and follows command, she does not look in distress. On admission her blood pressure was on the low side 68/53 5 sh she need to be transferred to ICU for start pressors, currently her blood pressure is better 102/50. She is having fever 103 on admission. She denies chest pain or dyspnea no right upper quadrant abdominal pain. No reports of diarrhea. Urine looks dark in the Infante catheter. No dysuria for the patient. Labs reviewed she has unremarkable CBC, BMP and LFT. Urinalysis is highly suspicious for infection Urine culture is pending Abdominal ultrasound showing cholelithiasis with minimal cholecystic fluid with thickening of the adjacent gallbladder suspicious for acute cholecystitis, however clinically does not behave like inflamed gallbladder Femur x-ray showing right AKA stump with hazy ostomy margin suspicious for osteomyelitis by the left AKA showing sharp ostomy margins. Chest x-ray showed combination of COPD and chronic CHF. Patient currently treated with broad-spectrum antibiotics with cefepime and IV vancomycin. Patient also on Ringer lactate at 130 mL/h She is continued on aspirin and Brilinta. 1/2 Patient is up in bed getting breathing treatment fully awake and oriented Still complaining from suprapubic pain and tenderness, Infante catheter is in place and picking up her urine output, overnight her urine output was low so increase her fluid currently she is getting Ringer lactate at 150 mL/h also she is getting Levophed at 0.06. Her urine output this morning improved and curre ntly 50-100. Overnight they tried to wean off Levophed and blood pressure dropped. They will try again this morning. Patient remains on antibiotics cefepime and IV vancomycin for her sepsis, several sources are suspected. Most likely the source is acute urinary tract infection I spoke with Dr. Rg this morning, he still suspect there is acute cholecystitis at the source of her sepsis and he recommended cholecystectomy but not currently because of her clinical condition and because she has been on Brilinta Also she has infected stump wounds in both legs and she is going for OR today especially on the right side however per vascular surgery it is unlikely to be the source of infection. Currently patient n.p.o. for the procedure 09/11 Patient remains awake and alert sitting up in bed. Mentation at baseline. Both AKA stumps are in a dressing after she underwent debridement yesterday, p arents is more severe in these areas as patient explains. However patient still complains from suprapubic and RUQ tenderness today. No other new complaint. The patient She remains on IV vancomycin and cefepime and dual antiplatelet therapy with aspirin and Brilinta from home Her numbers are improving with WBC down 26, 18 and today 11.3, creatinine 1.1 on admission came back to 0.8 Hemoglobin also came down to 9.6 down to 7.4 but this is after debridement and will continue close monitoring and will transfuse if hemoglobin less than 7 Liver enzymes trending down as well Patient continue to need very close monitoring in the ICU with frequent rounding 09/12. Patient seen and examined. Patient is alert, being weaned off the Levophed. Patient is slightly confused. REVIEW OF SYSTEMS: CONSTITUTIONAL: No fever, no malaise,. CARDIOVASCULAR: No chest pain, no palpitations, no syncope. PULMONARY: No shortness of breath, no cough, GASTROINTESTINAL: No diarrhea, no nausea, no vomiting, no abdominal pain. NEUROLOGICAL: No headaches, no weakness, PHYSICAL EXAMINATION: GENERAL: The patient is aler, chronically ill looking HEENT: Pupils are round and equally reacting to light. EOMI. No scleral icterus. No conjunctival pallor. Normocephalic, atraumatic. No pharyngeal erythema. No thyromegaly. CARDIOVASCULAR: S1 and S2 present. No murmurs, rubs, or gallops. PULMONARY: Diminished breath sound at the bases bilaterally, no wheezing or crackles. ABDOMEN: Soft, nontender, nondistended, normoactive bowel sounds. No palpable organomegaly. MUSCULOSKELETAL: No joint swelling or deformity. EXTREMITIES: Bilateral AKA with bandages seen NEUROLOGICAL: Gross neurological examination did not reveal any focal deficits. SKIN: No rashes. Assessment and plan Cellulitis and infections of bilateral AKA stumps, there is suspicion of osteomyelitis at the distal margins of the right stump per x-ray. Status post I&D by vascular surgery on 09/10 Acute urinary tract infection with suprapubic tenderness. Urine cultures pending Gallbladder disease with gallstones, but there is suspicion of acute cholecystitis Severe sepsis/septic shock, present on admission, improving Peripheral artery disease Monitor vital signs Monitor CBC Monitor CMP Continue telemetry monitoring Follow-up on blood cultures Continue wound care Continue pain management Continue midodrine Continue IV cefepime, pharmacy dose vancomycin ID following Vascular surgery following Labs and medication were reviewed.. Continue same treatment. Continue with symptomatic treatment. Resume home medication. Monitor labs and vitals. DVT and GI prophylaxis. Further recommendations as per clinical course of the patient Dictation was produced using [employer] dictation software. please excuse any grammatical, word or spelling errors. Objective - Vital Signs Vital signs: Vital Signs Temp 97.0 F L 09/12/24 08:00 Pulse 75 09/12/24 08:00 Resp 14 09/12/24 08:00 BP 109/58 09/12/24 08:00 Pulse Ox 98 09/12/24 07:15 FiO2 1 09/10/24 00:00 Intake & Output 09/11/24 09/12/24 09/12/24 18:59 06:59 18:59 Intake Total 2490.557 2020 188.821 Output Total 760 650 40 Balance 9588.517 5542 148.821 Weight 50.2 kg Intake: IV 1770 1920 160 0.9 @ KVO 120 120 10 Lactated Ringers 1,000 ml 1650 1800 150 @ 150 mls/hr IV .Q6H40M AMANDA Rx#:[id number] Intake, IV Titration 320.557 100 28.821 Amount Cefepime 2 gm In Sodium 100 Chloride 0.9% 100 ml @ 25 mls/hr IVPB Q8HR AMANDA Rx# :[id number] Lactated Ringers 1,000 ml 150 @ 150 mls/hr IV .Q6H40M AMANDA Rx#:[id number] Norepinephrine 8 mg In 170.557 28.821 Sodium Chloride 0.9% 250 ml @ 0.03 MCG/KG/MIN 2. 897 mls/hr IV .Q24H AMANDA Rx#:[id number] Oral 400 Output: Drainage 50 Bilateral AKA wound vac 50 Urine 710 650 40 Other: Voiding Method Indwelling Catheter Indwelling Catheter - Labs CBC & Chem 7: 09/12/24 04:56 09/12/24 09:49 Labs: Abnormal Lab Results - Last 24 Hours (Table) 09/12/24 09/12/24 Range/Units 04:56 04:56 RBC 2.44 L (3.80-5.40) m/uL Hgb 7.6 L (11.4-16.0) gm/dL Hct 23.7 L (34.0-46.0) % RDW 17.5 H (11.5-15.5) % Plt Count 133 L (150-450) k/uL Sodium 135 L (137-145) mmol/L Chloride 111 H (98-107) mmol/L Carbon Dioxide 19 L (22-30) mmol/L Calcium 6.5 L (8.4-10.2) mg/dL TSH 7.300 H (0.465-4.680) mIU/L Microbiology - Last 24 Hours (Table) 09/08/24 13:17 Blood Culture Gram Stain - Final Blood Blood Culture - Final Klebsiella Pneum subsp ozaenae Escherichia coli Molecular ID 09/10/24 11:05 Gram Stain - Preliminary Leg - Right Tissue Culture - Preliminary Escherichia coli 09/10/24 11:10 Gram Stain - Preliminary Leg - Left Tissue Culture - Preliminary Serratia marcescens ssp marces 09/08/24 14:27 Gram Stain - Final Leg - Right Wound Culture - Final Klebsiella Pneum subsp ozaenae Strep agalactiae - (group b) Escherichia coli 09/08/24 13:17 Gram Stain - Final Leg - Left Wound Culture - Final Strep agalactiae - (group b) Escherichia coli Serratia marcescens ssp marces
--- NOTE | 2024-09-12 15:15 | P.PN ---
Subjective Progress Note Date: 09/11/24 Principal diagnosis: Reason for follow-up is sepsis bacteremia Patient is a 69-year-old female with multiple comorbidity patient did have a significant PAD and did have a bilateral pizsm-ykx-kemu amputations with subsequent dehiscence of the wound patient has been sent from the local halfway to the hospital with fever, patient be diagnosed with sepsis admitted to the ICU did have a positive blood culture with Klebsiella. Patient is status post surgical debridement of bilateral AKA wound and application of wound VAC culture has been obtained On today's evaluation that is 09/11/2024, the patient continues to be afebrile, the patient is on room air and breathing comfortably, the Pt denies having any chest pain or cough, the patient denies having any abdominal pain no vomiting or any diarrhea has been reported by the nursing staff, pain to bilateral legs currently controlled Patient white count is down to 11.3, creatinine 0.80 Objective - Vital Signs Vital signs: Vital Signs Temp 97.2 F L 09/11/24 08:00 Pulse 92 09/11/24 10:00 Resp 18 09/11/24 10:00 BP 105/58 09/11/24 10:00 Pulse Ox 94 L 09/11/24 10:00 FiO2 1 09/10/24 00:00 Intake & Output 09/10/24 09/11/24 09/11/24 18:59 06:59 18:59 Intake Total 4472.905 7323.311 2662.513 Output Total 505 445 260 Balance 3967.905 1320.793 933.513 Weight 49.9 kg 45.2 kg Intake: IV 3120 110 490 0.9 @ KVO 120 110 40 500cc bolus LR (OR) 500 Lactated Ringers 1,000 ml 1500 450 @ 150 mls/hr IV .Q6H40M AMANDA Rx#:[id number] Potassium Chloride 20 meq 200 In Water For Injection 1 100ml.bag @ 50 mls/hr IVPB Q2H AMANDA Rx#: [id number] Vancomycin 750 mg In 250 Sodium Chloride 0.9% 250 ml @ 125 mls/hr IVPB Q24HR AMANDA Rx#:[id number] Intake, IV Titration 111.844 2625.793 303.513 Amount Lactated Ringers 1,000 ml 300 1650 150 @ 150 mls/hr IV .Q6H40M AMANDA Rx#:[id number] Norepinephrine 32 mg In 10.491 Sodium Chloride 0.9% 218 ml @ 0.03 MCG/KG/MIN 0. 431 mls/hr IV .Q24H AMANDA Rx#:[id number] Norepinephrine 8 mg In 2.414 5.793 153.513 Sodium Chloride 0.9% 250 ml @ 0.03 MCG/KG/MIN 2. 897 mls/hr IV .Q24H AMANDA Rx#:[id number] Oral 1040 400 Output: Drainage 25 Bilateral AKA wound vac 25 Urine 470 445 260 Estimated Blood Loss 10 Other: Voiding Method Indwelling Catheter Indwelling Catheter # Bowel Movements 0 - Exam GENERAL DESCRIPTION: An elderly female lying in bed in no distress RESPIRATORY SYSTEM: Unlabored breathing , decreased breath sounds at bases HEART: S1 S2 regular rate and rhythm , ABDOMEN: Soft , no tenderness EXTREMITIES: Bilateral AKA stump wound is covered with a wound VAC - Labs CBC & Chem 7: 09/12/24 04:56 09/12/24 09:49 Labs: Abnormal Lab Results - Last 24 Hours (Table) 09/10/24 09/11/24 09/11/24 Range/Units 17:03 05:44 05:44 WBC 11.3 H (3.8-10.6) k/uL RBC 2.39 L (3.80-5.40) m/uL Hgb 7.4 L D (11.4-16.0) gm/dL Hct 23.3 L (34.0-46.0) % RDW 17.5 H (11.5-15.5) % Neutrophils # 10.3 H (1.3-7.7) k/uL Lymphocytes # 0.7 L (1.0-4.8) k/uL Chloride 112 H (98-107) mmol/L Carbon Dioxide 18 L (22-30) mmol/L BUN 21 H (7-17) mg/dL POC Glucose (mg/dL) 138 H (70-110) mg/dL Calcium 7.0 L (8.4-10.2) mg/dL Total Bilirubin 2.0 H (0.2-1.3) mg/dL AST 102 H (14-36) U/L ALT 71 H (4-34) U/L Alkaline Phosphatase 489 H (38-126) U/L Total Protein 4.8 L (6.3-8.2) g/dL Albumin 1.8 L (3.5-5.0) g/dL Microbiology - Last 24 Hours (Table) 09/08/24 14:27 Gram Stain - Final Leg - Right Wound Culture - Final Klebsiella Pneum subsp ozaenae Strep agalactiae - (group b) Escherichia coli 09/08/24 13:17 Gram Stain - Final Leg - Left Wound Culture - Final Strep agalactiae - (group b) Escherichia coli Serratia marcescens ssp marces 09/08/24 13:17 Blood Culture Gram Stain - Final Blood Blood Culture - Final Klebsiella Pneum subsp ozaenae Escherichia coli Molecular ID 09/09/24 05:45 Urine Culture - Final Urine,Voided Assessment and Plan (1) Bilateral lower leg cellulitis Current Visit: Yes Status: Acute Code(s): L03.116 - CELLULITIS OF LEFT LOWER LIMB; L03.115 - CELLULITIS OF RIGHT LOWER LIMB SNOMED Code(s): 932242064 (2) Sepsis Current Visit: Yes Status: Acute Code(s): A41.9 - SEPSIS, UNSPECIFIED ORGANISM SNOMED Code(s): 55812003 (3) Bacteremia Current Visit: Yes Status: Acute Code(s): R78.81 - BACTEREMIA SNOMED Code(s): 6945431 Plan: 1patient is in the hospital with sepsis in this patient with a fever tachycardia elevated white count source is likely bilateral AKA wound and concern for osteomyelitis to the right AKA stump site however the patient also have elevated liver enzyme and there was a history of vomiting underlying abdominal source monitor excluded. 2patient has been evaluated by vascular surgery and is status post debridement of the wound and deep culture completed on 09/10/2024 3patient does have a positive blood culture with Klebsiella 4 ultrasound of the abdomen suggestive of possible cholecystitis General Surgery to be consulted recommending medical treatment at this point 5patient has shown clinical improvement we will continue with cefepime and vancomycin while waiting for the surgical culture to finalize to adjust antibiotic further Dictation was produced using [employer] dictation software. please excuse any grammatical, word or spelling errors. Time with Patient: Less than 30
--- NOTE | 2024-09-12 15:17 | P.PN ---
Subjective Progress Note Date: 09/12/24 Principal diagnosis: Reason for follow-up is sepsis bacteremia Patient is a 69-year-old female with multiple comorbidity patient did have a significant PAD and did have a bilateral xydpv-izk-xpfo amputations with subsequent dehiscence of the wound patient has been [facility] the [facility] with fever, patient be diagnosed with sepsis admitted to the ICU did have a positive blood culture with Klebsiella. Patient is status post surgical debridement of bilateral AKA wound and application of wound VAC culture has been obtained On today's evaluation that is 09/12/2024, patient did not have any fever and denies any chills, patient is breathing comfortably on room air, patient with no chest pain or cough patient did not have any abdominal pain nausea vomiting or any loose stools patient has been having some pain to the bilateral AKA wound area today. Patient white count 6.9 creatinine 0.74 local culture mostly with gram-negative Objective - Vital Signs Vital signs: Vital Signs Temp 97.2 F L 09/12/24 12:00 Pulse 77 09/12/24 14:00 Resp 21 09/12/24 14:00 BP 104/50 09/12/24 14:00 Pulse Ox 98 09/12/24 14:00 FiO2 1 09/10/24 00:00 Intake & Output 09/11/24 09/12/24 09/12/24 18:59 06:59 18:59 Intake Total 2490.557 2020 738.821 Output Total 760 650 215 Balance 9141.950 0977 523.821 Weight 50.2 kg Intake: IV 1770 1920 710 0.9 @ KVO 120 120 60 Lactated Ringers 1,000 ml 1650 1800 650 @ 150 mls/hr IV .Q6H40M [facility] Rx#:[id number] Intake, IV Titration 320.557 100 28.821 Amount Cefepime 2 gm In Sodium 100 Chloride 0.9% 100 ml @ 25 mls/hr IVPB Q8HR [facility] Rx# :[id number] Lactated Ringers 1,000 ml 150 @ 150 mls/hr IV .Q6H40M [facility] Rx#:[id number] Norepinephrine 8 mg In 170.557 28.821 Sodium Chloride 0.9% 250 ml @ 0.03 MCG/KG/MIN 2. 897 mls/hr IV .Q24H [facility] Rx#:[id number] Oral 400 Output: Drainage 50 Bilateral AKA wound vac 50 Urine 710 650 215 Other: Voiding Method Indwelling Catheter Indwelling Catheter Indwelling Catheter - Exam GENERAL DESCRIPTION: An elderly female lying in bed in no distress RESPIRATORY SYSTEM: Unlabored breathing , decreased breath sounds at bases HEART: S1 S2 regular rate and rhythm , ABDOMEN: Soft , no tenderness EXTREMITIES: Bilateral AKA stump wound is covered with a wound VAC - Labs CBC & Chem 7: 09/12/24 04:56 09/12/24 09:49 Labs: Abnormal Lab Results - Last 24 Hours (Table) 09/12/24 09/12/24 Range/Units 04:56 04:56 RBC 2.44 L (3.80-5.40) m/uL Hgb 7.6 L (11.4-16.0) gm/dL Hct 23.7 L (34.0-46.0) % RDW 17.5 H (11.5-15.5) % Plt Count 133 L (150-450) k/uL Sodium 135 L (137-145) mmol/L Chloride 111 H (98-107) mmol/L Carbon Dioxide 19 L (22-30) mmol/L Calcium 6.5 L (8.4-10.2) mg/dL TSH 7.300 H (0.465-4.680) mIU/L Microbiology - Last 24 Hours (Table) 09/11/24 05:44 Blood Culture - Preliminary Blood 09/08/24 13:17 Blood Culture Gram Stain - Final Blood Blood Culture - Final Klebsiella Pneum subsp ozaenae Escherichia coli Molecular ID 09/10/24 11:05 Gram Stain - Preliminary Leg - Right Tissue Culture - Preliminary Escherichia coli 09/10/24 11:10 Gram Stain - Preliminary Leg - Left Tissue Culture - Preliminary Serratia marcescens ssp marces Assessment and Plan (1) Bilateral lower leg cellulitis Current Visit: Yes Status: Acute Code(s): L03.116 - CELLULITIS OF LEFT LOWER LIMB; L03.115 - CELLULITIS OF RIGHT LOWER LIMB SNOMED Code(s): 623054309 (2) Sepsis Current Visit: Yes Status: Acute Code(s): A41.9 - SEPSIS, UNSPECIFIED ORGANISM SNOMED Code(s): 74638427 (3) Bacteremia Current Visit: Yes Status: Acute Code(s): R78.81 - BACTEREMIA SNOMED Code(s): 7608610 Plan: 1patient is in the hospital with sepsis in this patient with a fever tachycardia elevated white count source is likely bilateral AKA wound and concern for osteomyelitis to the right AKA stump site however the patient also have elevated liver enzyme and there was a history of vomiting underlying abdominal source monitor excluded. 2patient has been evaluated by vascular surgery and is status post debridement of the wound and deep culture completed on 09/10/2024 3patient does have a positive blood culture with Klebsiella 4 ultrasound of the abdomen suggestive of possible cholecystitis General Surgery to be consulted recommending medical treatment at this point 5patient culture has been mostly gram-negative with Serratia and E. coli in the OR culture continue cefepime discontinue vancomycin Dictation was produced using [employer] dictation software. please excuse any grammatical, word or spelling errors. Time with Patient: Less than 30
[2024-09-12] MEDS: PREGABALIN 50 MG CAP PO SCH (15:59)
[2024-09-12] MEDS: FUROSEMIDE 10 MG/ML 2 ML VIAL IV ONE (23:28)
--- NOTE | 2024-09-13 01:22 | P.PN ---
Progress Note - Text Progress Note Date: 09/12/24 CHIEF COMPLAINT: Bilateral eruct-nzk-cpwi amputation wounds HISTORY OF PRESENT ILLNESS: Patient remains in the ICU. She is status post debridement of bilateral above-knee amputation wounds with vascular surgery. She has wound vacs in place. Denies abdominal pain. Tolerating diet. She denies nausea and vomiting. Afebrile. PHYSICAL EXAM: VITAL SIGNS: Reviewed. GENERAL: Well-developed in no acute distress. ABDOMEN: Soft. Nondistended. Very mild discomfort with palpation right upper quadrant NEUROLOGIC: Alert and oriented. Cranial nerves II through XII grossly intact. ASSESSMENT: 1. Cholecystitis with ultrasound reporting gallstones and minimal pericholecystic fluid 2. Elevated LFTs 3. Bilateral above-knee amputation wounds followed by vascular surgery PLAN: -Recommend medical management for cholecystitis. -No surgical intervention planned at this time -Continue antibiotics -Continue low-fat diet -Repeat labs in deric.wendi Hernandez [facility] [phone]
[2024-09-13] MEDS: LACTATED RINGERS 1,000 ML IV SCH (04:15)
[2024-09-13 05:13] LABS: Anisocytosis Slight; Basophils % (A) 0 %; Eosinophils # (A) 0.1 k/uL (0-0.7); Eosinophils % (A) 1 %; HCT 32.2 % (34.0-46.0); HGB 10.3 gm/dL (11.4-16.0); Hypochromasia Marked; Lymphocytes # (A) 1.3 k/uL (1.0-4.8); Lymphocytes % (A) 10 %; MCHC 31.8 g/dL (31.0-37.0); MCV 97.5 fL (80.0-100.0); Macrocytosis Slight; Mean Platelet Volume 8.1; Monocytes # (A) 0.3 k/uL (0-1.0); Monocytes % (A) 2 %; Neutrophils # (A) 10.9 k/uL (1.3-7.7); Neutrophils % (A) 85 %; Platelet Count 183 k/uL (150-450); RBC 3.31 m/uL (3.80-5.40); RDW 17.2 % (11.5-15.5); WBC 12.8 k/uL (3.8-10.6)
[2024-09-13 05:24] LABS: ALT 52 U/L (4-34); AST 84 U/L (14-36); African American GFR (CKD) 76 (>60 ml/min/1.73 sqM); Albumin 1.8 g/dL (3.5-5.0); Alkaline Phosphatase 490 U/L (38-126); Anion Gap 8 mmol/L; Blood Urea Nitrogen 17 mg/dL (7-17); Calcium 6.8 mg/dL (8.4-10.2); Carbon Dioxide 17 mmol/L (22-30); Chloride 111 mmol/L (98-107); Glucose 80 mg/dL (74-99); Non-African American GFR(CKD) 66 (>60 ml/min/1.73 sqM); Potassium 4.2 mmol/L (3.5-5.1); Sodium 136 mmol/L (137-145); Total Bilirubin 1.6 mg/dL (0.2-1.3); Total Protein 4.8 g/dL (6.3-8.2)
[2024-09-13] MEDS: LEVOTHYROXINE 75 MCG TAB PO SCH (10:12)
[2024-09-13] MEDS: HYDROCORTISONE SUCCINATE 100 MG/2 ML VIAL IV SCH (12:03)
--- NOTE | 2024-09-13 12:20 | P.PN ---
Subjective Progress Note Date: 09/13/24 69-year-old female with PMH of coronary artery disease hypertension hyperlipidemia VT reflux in this patient who did have right bayga-lgf-xgjs amputation done at [facility] subsequently left eisej-qtq-elrp amputation at [facility]. In the ER x-ray of the right femur showed concerning signs of contiguous osteomyelitis. Initial blood cultures were positive for E. coli plus Klebsiella pneumonia and at that time patient was started on vancomycin and Rocephin while awaiting cultures to finalize. Chest x-ray done on admission showed potential CHF with mild pulmonary vascular c ongestion and trace right pleural effusion which is improved from prior. CBC: WBC 11.3, hemoglobin 9.8, hematocrit 30.7, platelets 270. CMP: Sodium 143, potassium 4.5, CO2 20, BUN 46, creatinine 1.3, glucose 167, total bilirubin 2.3, AST 981, ALT 438, alkaline phosphatase 740. Troponin 0.096. Lactic acid 1.8. Patient is on 2 L nasal cannula SpO2 100%. Patient is seen this morning in the intensive care unit. No significant overnight events. Patient complaining of pain in the bilateral lower extremities (AKA). Ultrasound team is in the room this morning performing abdominal ultrasound. Vital show heart rate 96, respiratory rate 20, blood pressure 102/50, O2 saturation 94% on 2 L nasal cannula. Progress note dated September 10, 2024: Patient is seen in the intensive care unit this morning. No significant overnight events. There was a concern about urine output yesterday, but since then the patient has put out 1.3 L in the last 24 hours. Patient is expected to go for debridement of the bilateral AKA sites today. CBC: WBC 18.2, hemoglobin 9.0, hematocrit 28.4, platelets 270. CMP: Sodium 140, potassium 3.5, chloride 112, BUN 30, creatinine 0.89, calcium 7.6, albumin 2.1, AST 138, ALT 119, alkaline phosphatase 436. Now saturating well on room air, but still requiring Levophed 3 mcg/min after failed attempts to wean yesterday with a dropping MAP. On day 2 of cefepime and vancomycin. LR running at 150 cc/h. Progress note dated September 11, 2024: Patient is seen in the intensive care unit this morning. No significant overnight events. Patient is recovering well after bilateral debridement of the AKA stumps postop day 2. Patient is having some confusion, only A&O x 2, is unable to state the year. Patient was having some hallucinations yesterday, stated seeing a cat in the hallway. Reports better pain control in bilateral AKA stumps after debridement yesterday. CBC: WBC 11.3, hemoglobin 7 .4, platelet count 54. CMP: Sodium 137, potassium 4.2, CO2 18, creatinine 0.8, AST 102, ALT 71, and alkaline phosphatase 49. Continues to saturate well on room air, still requiring levo 3 mcg/min, on day 3 of cefepime and vancomycin, and LR running at 150 cc/h. Left and right leg wound cultures have finalized with Klebsiella, strep agalactiae, E. coli, and Serratia with sensitivities back as well. Progress note dated September 12, 2024: Patient is seen in the intensive care unit this morning. No significant overnight events. CBC: WBC 6.9, hemoglobin 7.6, platelet count 133. CMP: Sodium 135, potassium 3.5, chloride 111 TSH 7.3, free T4 1.74. Levo running at 0.45 mcg/min, reduce LR to 100 cc/h from 150 due to water retention and swelling. Continues saturate well on room air. On day 4 of cefepime and vancomycin. The patient is seen today September 13, 2024 in follow-up in the intensive care unit. She is currently resting comfortably in bed. Awake and alert in no acute distress. She is maintaining O2 saturations in the 90s on room air. She has lactated Ringer's at 20 mL/h. Still requiring norepinephrine at 5.4 mcg/min. She did receive Lasix 20 mg IVP x 1 yesterday with -1.3 L of urine returned. She is on midodrine 10 mg 3 times daily. Left leg wound is positive for Serratia marcescens, gram-negative bacilli and strep agalactiae group B. 12.8. Hemoglobin 10.3. Platelets 183. Sodium 136. Potassium 4.2. Bicarb 17. BUN 17. Creatinine 0.89. Glucose 80. AST 84. ALT 852. Cortisol level was 10.6. She is initiated on on Solu-Cortef 50 mg IV every 6 hours today. She continues on Symbicort. Antibiotics in the form of cefepime and off the vancomycin. Objective - Vital Signs Vital signs: Vital Signs Temp 97.2 F L 09/13/24 08:00 Pulse 101 H 09/13/24 11:00 Resp 24 09/13/24 11:00 BP 103/44 09/13/24 11:00 Pulse Ox 98 09/13/24 11:00 FiO2 1 09/10/24 00:00 Intake & Output 09/12/24 09/13/24 09/13/24 18:59 06:59 18:59 Intake Total 1297.643 874.071 210.702 Output Total 325 1520 235 Balance 972.643 -645.929 -24.298 Weight 52.8 kg Intake: IV 1260 820 150 0.9 @ KVO 110 80 50 Cefepime 2 gm In Sodium 100 Chloride 0.9% 100 ml @ 25 mls/hr IVPB Q12HR [facility] Rx #:[id number] Lactated Ringers 1,000 ml 1150 500 @ 150 mls/hr IV .Q6H40M [facility] Rx#:[id number] Lactated Ringers 1,000 ml 140 100 @ 20 mls/hr IV .Q24H [facility] Rx#:[id number] Intake, IV Titration 37.643 54.071 60.702 Amount Norepinephrine 8 mg In 37.643 54.071 60.702 Sodium Chloride 0.9% 250 ml @ 0.03 MCG/KG/MIN 2. 897 mls/hr IV .Q24H [facility] Rx#:[id number] Output: Urine 325 1520 235 Other: Voiding Method Indwelling Catheter Indwelling Catheter Indwelling Catheter - Exam GENERAL: A 69-year-old female patient, alert and oriented x3, not in any acute distress. Well developed, well nourished. On room air. HEENT: Pupils are round and equally reacting to light. EOMI. No scleral icterus. No conjunctival pallor. Normocephalic, atraumatic. No pharyngeal erythema. No thyromegaly. CARDIOVASCULAR: S1 and S2 present. No murmurs, rubs, or gallops. PULMONARY: Chest is clear to auscultation, no wheezing , no crackles. ABDOMEN: Soft, nondistended, normoactive bowel sounds. No palpable organomegaly. Suprapubic tenderness. Infante catheter in place MUSCULOSKELETAL: No joint swelling or deformity. EXTREMITIES: No cyanosis, clubbing. Swelling/minimal edema of the upper extremities bilaterally. Bilateral AKA with superficial wounds of the bilateral stumps with some purulent discharge in the base which looks dried. Mild tenderness in the right AKA stump distally NEUROLOGICAL: Gross neurological examination did not reveal any focal deficits. SKIN: No rashes. no petechiae. - Labs CBC & Chem 7: 09/13/24 04:41 09/13/24 04:41 Labs: Abnormal Lab Results - Last 24 Hours (Table) 09/13/24 09/13/24 Range/Units 04:41 04:41 WBC 12.8 H (3.8-10.6) k/uL RBC 3.31 L (3.80-5.40) m/uL Hgb 10.3 L (11.4-16.0) gm/dL Hct 32.2 L (34.0-46.0) % RDW 17.2 H (11.5-15.5) % Neutrophils # 10.9 H (1.3-7.7) k/uL Sodium 136 L (137-145) mmol/L Chloride 111 H (98-107) mmol/L Carbon Dioxide 17 L (22-30) mmol/L Calcium 6.8 L (8.4-10.2) mg/dL Total Bilirubin 1.6 H (0.2-1.3) mg/dL AST 84 H (14-36) U/L ALT 52 H (4-34) U/L Alkaline Phosphatase 490 H (38-126) U/L Total Protein 4.8 L (6.3-8.2) g/dL Albumin 1.8 L (3.5-5.0) g/dL Microbiology - Last 24 Hours (Table) 09/10/24 11:10 Anaerobic Culture - Preliminary Leg - Left 09/10/24 11:10 Gram Stain - Preliminary Leg - Left Tissue Culture - Preliminary Serratia marcescens ssp marces Gram Neg Bacilli Strep agalactiae - (group b) 09/10/24 11:05 Anaerobic Culture - Preliminary Leg - Right 09/10/24 11:05 Gram Stain - Preliminary Leg - Right Tissue Culture - Preliminary Escherichia coli Strep agalactiae - (group b) 09/11/24 05:44 Blood Culture - Preliminary Blood 09/08/24 13:17 Blood Culture Gram Stain - Final Blood Blood Culture - Final Klebsiella Pneum subsp ozaenae Escherichia coli Molecular ID Assessment and Plan Assessment: Hypotension secondary to sepsis, preliminary blood cultures positive for E. coli and Klebsiella pneumoniae. Suspect relative adrenal insufficiency and myxedema coma Transaminitis: Improved Elevated troponins MARCY likely secondary to hypotension: Resolved Subclinical hypothyroidism History of hypertension History of hyperlipidemia Plan: The patient was seen and evaluated Currently stable and on room air Labs and medications reviewed Add Solu-Cortef 50 mg IV every 6 hours Add Synthroid 75 mcg daily Continue midodrine Titrate down the norepinephrine as tolerated Continue cefepime Continue to follow I have personally seen and examined the patient, performed the documentation and the assessment and plan as written. Number of minutes spent on the visit: 10 Dictation was produced using [employer] dictation software. Please excuse any grammatical, word or spelling errors. This patient was seen in coordination with the pulmonary/critical care physician, Dr. Viveros. He did spend greater than 50% of the time evaluating, examining and developing the plan of care. He agrees to the above HPI, physical exam, assessment and plan of care as dictated by the nurse practitioner.
--- NOTE | 2024-09-13 12:21 | P.PN ---
Subjective Progress Note Date: 09/13/24 This is a pleasant 69 years old female who was sent from [facility] for altered mental status. 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 Since 07/2024. Patient also states she vomited once earlier. Patient fully awake and oriented, can answer questions appropriately and follows command, she does not look in distress. On admission her blood pressure was on the low side 68/53 5 sh she need to be transferred to ICU for start pressors, currently her blood pressure is better 102/50. She is having fever 103 on admission. She denies chest pain or dyspnea no right upper quadrant abdominal pain. No reports of diarrhea. Urine looks dark in the Infante catheter. No dysuria for the patient. Labs reviewed she has unremarkable CBC, BMP and LFT. Urinalysis is highly suspicious for infection Urine culture is pending Abdominal ultrasound showing cholelithiasis with minimal cholecystic fluid with thickening of the adjacent gallbladder suspicious for acute cholecystitis, however clinically does not behave like inflamed gallbladder Femur x-ray showing right AKA stump with hazy ostomy margin suspicious for osteomyelitis by the left AKA showing sharp ostomy margins. Chest x-ray showed combination of COPD and chronic CHF. Patient currently treated with broad-spectrum antibiotics with cefepime and IV vancomycin. Patient also on Ringer lactate at 130 mL/h She is continued on aspirin and Brilinta. 1/2 Patient is up in bed getting breathing treatment fully awake and oriented Still complaining from suprapubic pain and tenderness, Infante catheter is in place and picking up her urine output, overnight her urine output was low so increase her fluid currently she is getting Ringer lactate at 150 mL/h also she is getting Levophed at 0.06. Her urine output this morning improved and curre ntly 50-100. Overnight they tried to wean off Levophed and blood pressure dropped. They will try again this morning. Patient remains on antibiotics cefepime and IV vancomycin for her sepsis, several sources are suspected. Most likely the source is acute urinary tract infection I spoke with Dr. Rg this morning, he still suspect there is acute cholecystitis at the source of her sepsis and he recommended cholecystectomy but not currently because of her clinical condition and because she has been on Brilinta Also she has infected stump wounds in both legs and she is going for OR today especially on the right side however per vascular surgery it is unlikely to be the source of infection. Currently patient n.p.o. for the procedure 09/11 Patient remains awake and alert sitting up in bed. Mentation at baseline. Both AKA stumps are in a dressing after she underwent debridement yesterday, p arents is more severe in these areas as patient explains. However patient still complains from suprapubic and RUQ tenderness today. No other new complaint. The patient She remains on IV vancomycin and cefepime and dual antiplatelet therapy with aspirin and Brilinta from home Her numbers are improving with WBC down 26, 18 and today 11.3, creatinine 1.1 on admission came back to 0.8 Hemoglobin also came down to 9.6 down to 7.4 but this is after debridement and will continue close monitoring and will transfuse if hemoglobin less than 7 Liver enzymes trending down as well Patient continue to need very close monitoring in the ICU with frequent rounding 09/12. Patient seen and examined. Patient is alert, being weaned off the Levophed. Patient is slightly confused. 09/13. Patient seen and examined. Blood work done showed WBC 12.8, hemoglobin 10.3, platelet count 183 sodium 136, potassium 4.2, BUN 17, creatinine 0.89. No acute issues over REVIEW OF SYSTEMS: CONSTITUTIONAL: No fever, no malaise,. CARDIOVASCULAR: No chest pain, no palpitations, no syncope. PULMONARY: No shortness of breath, no cough, GASTROINTESTINAL: No diarrhea, no nausea, no vomiting, no abdominal pain. NEUROLOGICAL: No headaches, no weakness, PHYSICAL EXAMINATION: GENERAL: The patient is alert, chronically ill looking HEENT: Pupils are round and equally reacting to light. EOMI. No scleral icterus. No conjunctival pallor. Normocephalic, atraumatic. No pharyngeal erythema. No thyromegaly. CARDIOVASCULAR: S1 and S2 present. No murmurs, rubs, or gallops. PULMONARY: Diminished breath sound at the bases bilaterally, no wheezing or crackles. ABDOMEN: Soft, nontender, nondistended, normoactive bowel sounds. No palpable organomegaly. MUSCULOSKELETAL: No joint swelling or deformity. EXTREMITIES: Bilateral AKA with bandages seen, wound VAC seen NEUROLOGICAL: Gross neurological examination did not reveal any focal deficits. SKIN: No rashes. Assessment and plan Cellulitis and infections of bilateral AKA stumps, there is suspicion of osteomyelitis at the distal margins of the right stump per x-ray. Status post I&D by vascular surgery on 09/10 Acute urinary tract infection with suprapubic tenderness. Urine cultures pending Gallbladder disease with gallstones, but there is suspicion of acute cholecystitis Severe sepsis/septic shock, present on admission, improving Peripheral artery disease Monitor vital signs Monitor CBC Monitor CMP Continue telemetry monitoring Follow-up on blood cultures Continue wound care Continue pain management Continue midodrine Continue IV cefepime, pharmacy dose vancomycin Continue aspirin, Lipitor, Brilinta Continue Farxiga Continue Entresto ID following Vascular surgery following Labs and medication were reviewed.. Continue same treatment. Continue with symptomatic treatment. Resume home medication. Monitor labs and vitals. DVT and GI prophylaxis. Further recommendations as per clinical course of the patient Dictation was produced using [employer] dictation software. please excuse any grammatical, word or spelling errors. Objective - Vital Signs Vital signs: Vital Signs Temp 97.2 F L 09/13/24 08:00 Pulse 102 H 09/13/24 09:00 Resp 15 09/13/24 09:00 BP 102/71 09/13/24 09:00 Pulse Ox 98 09/13/24 09:00 FiO2 1 09/10/24 00:00 Intake & Output 09/12/24 09/13/24 09/13/24 18:59 06:59 18:59 Intake Total 1297.643 874.071 118.082 Output Total 325 1520 175 Balance 972.643 -645.929 -56.918 Weight 52.8 kg Intake: IV 1260 820 90 0.9 @ KVO 110 80 30 Cefepime 2 gm In Sodium 100 Chloride 0.9% 100 ml @ 25 mls/hr IVPB Q12HR [facility] Rx #:[id number] Lactated Ringers 1,000 ml 1150 500 @ 150 mls/hr IV .Q6H40M [facility] Rx#:[id number] Lactated Ringers 1,000 ml 140 60 @ 20 mls/hr IV .Q24H [facility] Rx#:[id number] Intake, IV Titration 37.643 54.071 28.082 Amount Norepinephrine 8 mg In 37.643 54.071 28.082 Sodium Chloride 0.9% 250 ml @ 0.03 MCG/KG/MIN 2. 897 mls/hr IV .Q24H [facility] Rx#:[id number] Output: Urine 325 1520 175 Other: Voiding Method Indwelling Catheter Indwelling Catheter - Labs CBC & Chem 7: 09/13/24 04:41 09/13/24 04:41 Labs: Abnormal Lab Results - Last 24 Hours (Table) 09/13/24 09/13/24 Range/Units 04:41 04:41 WBC 12.8 H (3.8-10.6) k/uL RBC 3.31 L (3.80-5.40) m/uL Hgb 10.3 L (11.4-16.0) gm/dL Hct 32.2 L (34.0-46.0) % RDW 17.2 H (11.5-15.5) % Neutrophils # 10.9 H (1.3-7.7) k/uL Sodium 136 L (137-145) mmol/L Chloride 111 H (98-107) mmol/L Carbon Dioxide 17 L (22-30) mmol/L Calcium 6.8 L (8.4-10.2) mg/dL Total Bilirubin 1.6 H (0.2-1.3) mg/dL AST 84 H (14-36) U/L ALT 52 H (4-34) U/L Alkaline Phosphatase 490 H (38-126) U/L Total Protein 4.8 L (6.3-8.2) g/dL Albumin 1.8 L (3.5-5.0) g/dL Microbiology - Last 24 Hours (Table) 09/10/24 11:10 Anaerobic Culture - Preliminary Leg - Left 09/10/24 11:10 Gram Stain - Preliminary Leg - Left Tissue Culture - Preliminary Serratia marcescens ssp marces Gram Neg Bacilli Strep agalactiae - (group b) 09/10/24 11:05 Anaerobic Culture - Preliminary Leg - Right 09/10/24 11:05 Gram Stain - Preliminary Leg - Right Tissue Culture - Preliminary Escherichia coli Strep agalactiae - (group b) 09/11/24 05:44 Blood Culture - Preliminary Blood 09/08/24 13:17 Blood Culture Gram Stain - Final Blood Blood Culture - Final Klebsiella Pneum subsp ozaenae Escherichia coli Molecular ID
[2024-09-13] MEDS: LACTATED RINGERS 1,000 ML IV ONE (15:33)
[2024-09-13] MEDS: PROCHLORPERAZINE 5 MG TAB PO PRN (16:32)
--- NOTE | 2024-09-13 17:02 | P.PN ---
Subjective Progress Note Date: 09/13/24 Status post bilateral AKA wound debridement and wound VAC placement 2 days prior. Nursing reports some increased confusion. Presently getting a fluid bolus. Objective - Vital Signs Vital signs: Vital Signs Temp 97.0 F L 09/13/24 12:00 Pulse 105 H 09/13/24 15:45 Resp 23 09/13/24 15:45 BP 105/72 09/13/24 15:45 Pulse Ox 98 09/13/24 15:30 FiO2 1 09/10/24 00:00 Intake & Output 09/12/24 09/13/24 09/13/24 18:59 06:59 18:59 Intake Total 1297.643 874.071 356.338 Output Total 325 1520 290 Balance 972.643 -645.929 66.338 Weight 52.8 kg Intake: IV 1260 820 270 0.9 @ KVO 110 80 90 Cefepime 2 gm In Sodium 100 Chloride 0.9% 100 ml @ 25 mls/hr IVPB Q12HR [facility] Rx #:[id number] Lactated Ringers 1,000 ml 1150 500 @ 150 mls/hr IV .Q6H40M [facility] Rx#:[id number] Lactated Ringers 1,000 ml 140 180 @ 20 mls/hr IV .Q24H [facility] Rx#:[id number] Intake, IV Titration 37.643 54.071 86.338 Amount Norepinephrine 8 mg In 37.643 54.071 86.338 Sodium Chloride 0.9% 250 ml @ 0.03 MCG/KG/MIN 2. 897 mls/hr IV .Q24H [facility] Rx#:[id number] Output: Urine 325 1520 290 Other: Voiding Method Indwelling Catheter Indwelling Catheter Indwelling Catheter - Exam Wound VAC to remain in place and intact. Seal remains adequate. - Labs CBC & Chem 7: 09/13/24 04:41 09/13/24 04:41 Labs: Abnormal Lab Results - Last 24 Hours (Table) 09/13/24 09/13/24 Range/Units 04:41 04:41 WBC 12.8 H (3.8-10.6) k/uL RBC 3.31 L (3.80-5.40) m/uL Hgb 10.3 L (11.4-16.0) gm/dL Hct 32.2 L (34.0-46.0) % RDW 17.2 H (11.5-15.5) % Neutrophils # 10.9 H (1.3-7.7) k/uL Sodium 136 L (137-145) mmol/L Chloride 111 H (98-107) mmol/L Carbon Dioxide 17 L (22-30) mmol/L Calcium 6.8 L (8.4-10.2) mg/dL Total Bilirubin 1.6 H (0.2-1.3) mg/dL AST 84 H (14-36) U/L ALT 52 H (4-34) U/L Alkaline Phosphatase 490 H (38-126) U/L Total Protein 4.8 L (6.3-8.2) g/dL Albumin 1.8 L (3.5-5.0) g/dL Microbiology - Last 24 Hours (Table) 09/10/24 11:10 Anaerobic Culture - Final Leg - Left 09/11/24 05:44 Blood Culture - Preliminary Blood 09/10/24 11:10 Gram Stain - Preliminary Leg - Left Tissue Culture - Preliminary Serratia marcescens ssp marces Gram Neg Bacilli Strep agalactiae - (group b) 09/10/24 11:05 Anaerobic Culture - Preliminary Leg - Right 09/10/24 11:05 Gram Stain - Preliminary Leg - Right Tissue Culture - Preliminary Escherichia coli Strep agalactiae - (group b) Assessment and Plan Assessment: Postop day #2 status post bilateral AKA wound debridement and wound VAC placement Plan: Continue wound VAC therapy. Plan for wound VAC change tomorrow. Time with Patient: Less than 30
[2024-09-13] MEDS: ACETAMINOPHEN IV (For NPO) 1,000 MG in EMPTY BAG 1 BAG IVPB PRN (22:01)
--- NOTE | 2024-09-13 22:06 | P.PN ---
Subjective Progress Note Date: 09/13/24 Principal diagnosis: Reason for follow-up is sepsis bacteremia Patient is a 69-year-old female with multiple comorbidity patient did have a significant PAD and did have a bilateral [id number]-[id number] amputations with subsequent dehiscence of the wound patient has been sent from the local [facility] to the hospital with fever, patient be diagnosed with sepsis admitted to the ICU did have a positive blood culture with Klebsiella. Patient is status post surgical debridement of bilateral AKA wound and application of wound VAC culture has been obtained On today's evaluation that is 09/13/2024, Patient is afebrile patient is currently on room air and denies having any shortness of breath, the patient denies any chest pain or cough, the patient denies any nausea vomiting did not have any abdominal pain has been complaining of some pain to bilateral AKA stump wound. Patient white count is 12.8 creatinine 0.89 culture mostly Serratia E. coli Streptococcus agalactiae Objective - Vital Signs Vital signs: Vital Signs Temp 97.2 F L 09/13/24 08:00 Pulse 101 H 09/13/24 11:00 Resp 24 09/13/24 11:00 BP 103/44 09/13/24 11:00 Pulse Ox 98 09/13/24 11:00 FiO2 1 09/10/24 00:00 Intake & Output 09/12/24 09/13/24 09/13/24 18:59 06:59 18:59 Intake Total 1297.643 874.071 210.702 Output Total 325 1520 235 Balance 972.643 -645.929 -24.298 Weight 52.8 kg Intake: IV 1260 820 150 0.9 @ KVO 110 80 50 Cefepime 2 gm In Sodium 100 Chloride 0.9% 100 ml @ 25 mls/hr IVPB Q12HR [facility] Rx #:[id number] Lactated Ringers 1,000 ml 1150 500 @ 150 mls/hr IV .Q6H40M [facility] Rx#:[id number] Lactated Ringers 1,000 ml 140 100 @ 20 mls/hr IV .Q24H [facility] Rx#:[id number] Intake, IV Titration 37.643 54.071 60.702 Amount Norepinephrine 8 mg In 37.643 54.071 60.702 Sodium Chloride 0.9% 250 ml @ 0.03 MCG/KG/MIN 2. 897 mls/hr IV .Q24H [facility] Rx#:[id number] Output: Urine 325 1520 235 Other: Voiding Method Indwelling Catheter Indwelling Catheter Indwelling Catheter - Exam GENERAL DESCRIPTION: An elderly female lying in bed in no distress RESPIRATORY SYSTEM: Unlabored breathing , decreased breath sounds at bases HEART: S1 S2 regular rate and rhythm , ABDOMEN: Soft , no tenderness EXTREMITIES: Bilateral AKA stump wound is covered with a wound VAC - Labs CBC & Chem 7: 09/13/24 04:41 09/13/24 04:41 Labs: Abnormal Lab Results - Last 24 Hours (Table) 09/13/24 09/13/24 Range/Units 04:41 04:41 WBC 12.8 H (3.8-10.6) k/uL RBC 3.31 L (3.80-5.40) m/uL Hgb 10.3 L (11.4-16.0) gm/dL Hct 32.2 L (34.0-46.0) % RDW 17.2 H (11.5-15.5) % Neutrophils # 10.9 H (1.3-7.7) k/uL Sodium 136 L (137-145) mmol/L Chloride 111 H (98-107) mmol/L Carbon Dioxide 17 L (22-30) mmol/L Calcium 6.8 L (8.4-10.2) mg/dL Total Bilirubin 1.6 H (0.2-1.3) mg/dL AST 84 H (14-36) U/L ALT 52 H (4-34) U/L Alkaline Phosphatase 490 H (38-126) U/L Total Protein 4.8 L (6.3-8.2) g/dL Albumin 1.8 L (3.5-5.0) g/dL Microbiology - Last 24 Hours (Table) 09/10/24 11:10 Anaerobic Culture - Preliminary Leg - Left 09/10/24 11:10 Gram Stain - Preliminary Leg - Left Tissue Culture - Preliminary Serratia marcescens ssp marces Gram Neg Bacilli Strep agalactiae - (group b) 09/10/24 11:05 Anaerobic Culture - Preliminary Leg - Right 09/10/24 11:05 Gram Stain - Preliminary Leg - Right Tissue Culture - Preliminary Escherichia coli Strep agalactiae - (group b) 09/11/24 05:44 Blood Culture - Preliminary Blood 09/08/24 13:17 Blood Culture Gram Stain - Final Blood Blood Culture - Final Klebsiella Pneum subsp ozaenae Escherichia coli Molecular ID Assessment and Plan (1) Bilateral lower leg cellulitis Current Visit: Yes Status: Acute Code(s): L03.116 - CELLULITIS OF LEFT LOWER LIMB; L03.115 - CELLULITIS OF RIGHT LOWER LIMB SNOMED Code(s): 209250842 (2) Sepsis Current Visit: Yes Status: Acute Code(s): A41.9 - SEPSIS, UNSPECIFIED ORGANISM SNOMED Code(s): 00426843 (3) Bacteremia Current Visit: Yes Status: Acute Code(s): R78.81 - BACTEREMIA SNOMED Code(s): 9148369 Plan: 1patient is in the hospital with sepsis in this patient with a fever tachycardia elevated white count source is likely bilateral AKA wound and concern for osteomyelitis to the right AKA stump site however the patient also have elevated liver enzyme and there was a history of vomiting underlying abdominal source monitor excluded. 2patient has been evaluated by vascular surgery and is status post debridement of the wound and deep culture completed on 09/10/2024 3patient does have a positive blood culture with Klebsiella, repeat cultures so far negative 4 ultrasound of the abdomen suggestive of possible cholecystitis General Surgery to be consulted recommending medical treatment at this point 5patient culture has been mostly gram-negative with Serratia and E. coli in the OR culture, patient is currently being treated with cefepime will monitor white count closely which is slightly up today Dictation was produced using [employer] dictation software. please excuse any grammatical, word or spelling errors. Time with Patient: Less than 30
--- NOTE | 2024-09-13 22:52 | CT ---
EXAMINATION TYPE: CT brain wo con DATE OF EXAM: 09/13/2024 COMPARISON: Prior CT August 24, 2024 CLINICAL INDICATION: Female, 69 years old with history of AMS; PHH, AMS TECHNIQUE: CT scan of the head is performed without contrast. CT DLP: 1168.[address] CTDI: 49 mGy Automated exposure control for dose reduction was used. FINDINGS: There is no acute intracranial hemorrhage or midline shift identified. There is mild diff use ventricular and sulcal prominence redemonstrated. There is mild low-attenuation in the periventr icular white matter redemonstrated. The calvarium is intact. The globes are intact and the visualize d sinuses are clear. IMPRESSION: No acute intracranial hemorrhage or midline shift. No significant change from most recen t prior CT. [facility], , 09/13/2024 10:50 PM
[2024-09-13] MEDS: FUROSEMIDE 10 MG/ML 2 ML VIAL IV ONE (23:58)
--- NOTE | 2024-09-14 07:52 | P.PN ---
Progress Note - Text Progress Note Date: 09/13/24 CHIEF COMPLAINT: Bilateral [id number]-[id number] amputation wounds HISTORY OF PRESENT ILLNESS: Patient remains in the ICU. She is status post debridement of bilateral above-knee amputation wounds with vascular surgery. She has wound vacs in place. Denies abdominal pain. Tolerating diet. She denies nausea and vomiting. Afebrile. PHYSICAL EXAM: VITAL SIGNS: Reviewed. GENERAL: Well-developed in no acute distress. ABDOMEN: Soft. Nondistended. Very mild discomfort with palpation right upper quadrant NEUROLOGIC: Alert and oriented. Cranial nerves II through XII grossly intact. ASSESSMENT: 1. Cholecystitis with ultrasound reporting gallstones and minimal pericholecystic fluid 2. Elevated LFTs 3. Bilateral above-knee amputation wounds followed by vascular surgery PLAN: -Recommend medical management for cholecystitis. -No surgical intervention planned at this time -Continue antibiotics -Continue low-fat diet -Repeat labs in deric.wendi Hernandez [facility] [phone]
[2024-09-14 08:18] LABS: African American GFR (CKD) 53 (>60 ml/min/1.73 sqM); Anion Gap 14 mmol/L; Blood Urea Nitrogen 23 mg/dL (7-17); Calcium 7.2 mg/dL (8.4-10.2); Carbon Dioxide 13 mmol/L (22-30); Chloride 111 mmol/L (98-107); Glucose 92 mg/dL (74-99); Non-African American GFR(CKD) 46 (>60 ml/min/1.73 sqM); Sodium 138 mmol/L (137-145)
[2024-09-14 08:25] LABS: Anisocytosis Slight; Basophils # (A) 0.1 k/uL (0-0.2); Basophils % (A) 0 %; Eosinophils % (A) 0 %; Hypochromasia Marked; Lymphocytes # (A) 1.1 k/uL (1.0-4.8); Lymphocytes % (A) 5 %; MCH 30.6 pg (25.0-35.0); MCHC 31.2 g/dL (31.0-37.0); MCV 97.9 fL (80.0-100.0); Macrocytosis Slight; Mean Platelet Volume 8.7; Monocytes # (A) 0.4 k/uL (0-1.0); Monocytes % (A) 2 %; Neutrophils # (A) 19.4 k/uL (1.3-7.7); Neutrophils % (A) 92 %; Platelet Count 159 k/uL (150-450); RBC 2.76 m/uL (3.80-5.40); WBC 21.2 k/uL (3.8-10.6)
[2024-09-14 08:33] LABS: HGB 8.4 gm/dL (11.4-16.0)
--- NOTE | 2024-09-14 10:01 | P.PN ---
Subjective Progress Note Date: 09/14/24 On 09/14/2023, this 69-year-old female patient is being seen for a follow-up in the intensive care unit where she was hospitalized for cellulitis and secondary septicemia. The patient is known to have coronary artery disease, hypertension, hyperlipidemia, and previous right above-knee amputation and subsequent left above-knee amputation. The patient's blood cultures were positive for E. coli and Klebsiella at the time of admission and the patient was quite septic. She stands. EGD and debridement completed and she is was seen by vascular surgery osteomyelitis of her right femur and the patient underwent surgical debridement of the bilateral above-knee amputation wounds and wound VAC was placed on both sides. The patient did have wound dehiscence bilaterally. The x-ray of the right femur showed haziness in the right stump suspicious for osteomyelitis. Left side was essentially within normal limits. The wound cultures from the left were positive for strep group B, Serratia marcescens and E. coli in the cultures from the right were positive for E. coli and strep group B. Based on this, the patient was given broad-spectrum antibiotics and the patient is currently on IV cefepime. Hemodynamically, the patient is still requiring low- dose pressors. She remains on lactated Ringer at rate of 20 cc an hour. She is also on midodrine 10 mg p.o. 3 times daily. She was also started on hyd rocortisone due to concerns of adrenal sufficiency. Serum cortisol at baseline was 10.6. Blood work from today shows a WBC count of 12.8 with hemoglobin 10.3 and a platelet count of 183. BUN is 17 with a creatinine of 0.89 and sodium levels at 136 and a potassium level is at 4.2. LFTs have been downtrending with an AST of 84, ALT of 52 and alkaline phosphatase elevated at 490, probably related to underlying osteomyelitis. Procalcitonin level was 22.7 at the time of admission. TSH was at 7.3 at time of admission and the patient is currently on levothyroxine 75 mcg p.o. daily. Her most recent echocardiogram from October 2023 showed impaired LV function with an ejection fraction of 30 to 35% along with mild pulmonary hypertension. She is currently on 2 L of oxygen by nasal cannula. She is on LR at 75 cc / hr. She is on Ne at 0.01 mc/kg/min. Objective - Vital Signs Vital signs: Vital Signs Temp 98.4 F 09/14/24 04:00 Pulse 93 09/14/24 07:00 Resp 14 09/14/24 07:00 BP 114/51 09/14/24 07:00 Pulse Ox 98 09/14/24 03:15 FiO2 1 09/10/24 00:00 Intake & Output 09/13/24 09/14/24 09/14/24 18:59 06:59 18:59 Intake Total 8288.549 8069.312 185 Output Total 370 870 50 Balance 1241.338 642.312 135 Weight 53.6 kg Intake: IV 525 1480 185 0.9 @ KVO 120 80 10 ACETAMINOPHEN IV (For NPO 400 100 ) 1,000 mg In Empty Bag 1 bag @ 400 mls/hr IVPB Q6HR [facility] Rx#:[id number] Cefepime 2 gm In Sodium 100 Chloride 0.9% 100 ml @ 25 mls/hr IVPB Q8HR [facility] Rx# :[id number] Lactated Ringers 1,000 ml 405 900 75 @ 75 mls/hr IV .[id number] [facility] Rx#:[id number] Intake, IV Titration 1086.338 32.312 Amount Lactated Ringers 1,000 ml 1000 @ 999 mls/hr IV .Q1H1M [facility] Rx#:[id number] Norepinephrine 8 mg In 86.338 32.312 Sodium Chloride 0.9% 250 ml @ 0.03 MCG/KG/MIN 2. 897 mls/hr IV .Q24H [facility] Rx#:[id number] Output: Urine 370 870 50 Other: Voiding Method Indwelling Catheter Indwelling Catheter - Exam GENERAL: A 69-year-old female patient, alert and oriented x3, not in any acute distress. Well developed, well nourished. On 2 L of oxygen by nasal cannula HEENT: Pupils are round and equally reacting to light. EOMI. No scleral icterus. No conjunctival pallor. Normocephalic, atraumatic. No pharyngeal erythema. No thyromegaly. CARDIOVASCULAR: S1 and S2 present. No murmurs, rubs, or gallops. PULMONARY: Chest is clear to auscultation, no wheezing , no crackles. ABDOMEN: Soft, nondistended, normoactive bowel sounds. No palpable organomegaly. Suprapubic tenderness. Infante catheter in place MUSCULOSKELETAL: No joint swelling or deformity. EXTREMITIES: No cyanosis, clubbing. Swelling/minimal edema of the upper extremities bilaterally. Bilateral AKA with superficial wounds of the bilateral stumps with some purulent discharge in the base which looks dried. Mild tenderness in the right AKA stump distally NEUROLOGICAL: Gross neurological examination did not reveal any focal deficits. slightly confused and delirious SKIN: No rashes. no petechiae. - Labs CBC & Chem 7: 09/14/24 07:18 09/14/24 07:18 Labs: Microbiology - Last 24 Hours (Table) 09/10/24 11:05 Anaerobic Culture - Preliminary Leg - Right 09/10/24 11:05 Gram Stain - Final Leg - Right Tissue Culture - Final Escherichia coli Strep agalactiae - (group b) 09/10/24 11:10 Gram Stain - Final Leg - Left Tissue Culture - Final Strep agalactiae - (group b) Serratia marcescens ssp marces Escherichia coli 09/10/24 11:10 Anaerobic Culture - Final Leg - Left 09/11/24 05:44 Blood Culture - Preliminary Blood Assessment and Plan Plan: Septic shock secondary to infection/dehiscence of a left above-knee surgical wound and right above knee surgical wound. The patient has positive gram- negative septicemia with blood cultures being positive for Klebsiella pneumoniae and E. coli on 09/08/2024. Bilateral surgical stump dehiscence for above-knee amputation, status post debridement with cultures being positive for strep group B and Serratia and E. c lily on the left and Klebsiella pneumonia with strep group B and E. coli on the right. Surgical debridement has been performed on 09/10/2024 and wound VAC has been applied. Suspicion for osteomyelitis on the right. Vascular surgery is on the case. Hypotension secondary to sepsis, remains on pressors and broad-spectrum antibiotics with IV cefepime CHF with impaired LV function with an ejection fraction of 30 to 35% COPD maintained on a combination of Advair and Incruse on outpatient basis Coronary artery disease with previous stent placement in the mid LAD in October 2023 History of right-sided pleural effusion with a previous thoracentesis on the right, exudate with negative cytology Severe peripheral vascular disease as revealed on the previous CTA of the aorta with runoff and the patient has bilateral above-knee amputations Chronic and ongoing tobacco smoking History of CVA Suspect relative adrenal insufficiency, currently on stress dose hydrocortisone Hypothyroidism currently on Synthroid Transaminitis: Improved Elevated troponins MARCY likely secondary to hypotension, resolved Subclinical hypothyroidism History of hypertension History of hyperlipidemia Delirium, will monitor. Likely secondary underlying sepsis. Non-anion gap metabolic acidosis Plan: Discontinue the lactated Ringer Give the patient a bicarb infusion at a rate of 50 cc an hour for the next 24 hours. Obtain a limited echocardiogram to evaluate LV function as the patient has severe cardiomyopathy and the patient continues to have hypotension. The patient is currently on norepinephrine at 0.01 mcg/kg/min. Continue continue Solu-Cortef 50 mg IV every 6 hours Continue Synthroid 75 mcg daily Continue midodrine Titrate down the norepinephrine as tolerated Continue cefepime Repeat procalcitonin level Continue to follow
[2024-09-14] MEDS: DEXTROSE 5% IN WATER 1,000 ML with SODIUM BICARB (1 MEQ/ML) 150 ML IV SCH (11:49)
[2024-09-14] MEDS: HYDROmorphone 1 MG/ML 1 ML SYRINGE IVP STA (12:55)
--- NOTE | 2024-09-14 13:59 | P.CNNES ---
History of Present Illness Consult date: 09/14/24 Requesting physician: Radha Truong Reason for Consult: Altered mental status History of Present Illness: Patient is a 69-year-old female with history of bilateral AKA in outside hospital, came to the hospital by ambulance on 09/08/2024 for possible sepsis. Some concern about STEMI. When EMS arrived patient was alert and orient x 1, at baseline mental status, and the staff believe that patient is going septic. As per EMS report, yesterday patient began vomiting and this morning the vomiting continued and the patient developed a fever of 104.6. Patient has wounds at her bilateral amputation sites. Staff mentioned that patient has been getting infections however she is not on any antibiotics at this time. Vital signs at the scene was blood pressure 99/51, pulse rate 114 saturation 98%, blood sugar 244. Patient has blood cultures positive. She is confused, and yesterday was alert and orient x 3 but today she is not speaking, not following commands. CT head was done, which did not reveal any acute process. Patient's Tmax was 100.6 on arrival. Patient's blood test shows WBC 21.2 hemoglobin 8.4, platelets are 159. Electrolytes are normal BUN 23 creatinine 1.19. TSH is slightly abnormal 7.30, free T4 normal 1.74. Cortisol 10.6 normal. UA shows large amount of leukocyte Estrace, 17 RBC, more than 182 WBC and few WBC clumps and rare bacteria. Patient had a CTA of the neck on 01/01/2018, which revealed complete occlusion of the left carotid bulb and visualized portion of the left ICA. Approximately 90% stenosis in the long segment of approximately 3.5 cm in length of the ostial and proximal left common carotid artery. Approximately 70% stenosis in a short segment of approximately 1 cm in the right carotid bulb. Stenosis of the cavernous portion of the right ICA of approximately 50%. Visualized portion of the [place] appears patent. CT head was done, which revealed no acute intracranial hemorrhage or midline shift. No significant change from most recent prior CT. I personally reviewed CT head, agree with the findings. Some mild small vessel disease. Abdominal ultrasound showed cholelithiasis. Some minimal pericholecystic fluid is present with thickening of the adjacent gallbladder wall. Correlate for acute cholecystitis. Minimal ascites may be present. X-ray of the femur showed AKA on the right side. There is stump wound and he is indistinctness to the osteotomy margin suspicious for an early contiguous osteomyelitis. On the left side, there is stump wound but the osteotomy margins appear sharp and normal. Grayson paz had positive blood cultures with Klebsiella pneumonia, E. coli on 09/08/2024. The wound cultures have grown multiple bacteria including E. coli, Klebsiella and Streptococcus agalactiae. Infectious disease is on the case for bilateral lower leg cellulitis, sepsis, bacteremia. Repeat blood cultures have been negative. General surgery to be consulted for possible cholecystitis. Patient currently on cefepime. Review of Systems ROS unobtainable: due to mental status Past Medical History Past Medical History: Coronary Artery Disease (CAD), CVA/TIA, GERD/Reflux, Hyperlipidemia, Hypertension, Myocardial Infarction ([place]), Osteoarthritis (OA), Skin Disorder Additional Past Medical History / Comment(s): hx migraines, right AKA, left lower extremity revascularization and stenting, Left AKA Last Myocardial Infarction Date:: History of Any Multi-Drug Resistant Organisms: MRSA Date of last positivie culture/infection: 02/21/18 MDRO Source:: NECK Past Surgical History: Heart Catheterization With Stent, Orthopedic Surgery, Tubal Ligation Additional Past Surgical History / Comment(s): left ankle surgery fracture- pins and plate inserted. 2 cardiac stents, neck surgery, left lower extremity revascularization and stenting and right AKA Past Anesthesia/Blood Transfusion Reactions: No Reported Reaction Date of Last Stent Placement:: 09/2016 Past Psychological History: No Psychological Hx Reported Smoking Status: Former smoker Past Alcohol Use History: Occasional Additional Past Alcohol Use History / Comment(s): started smoking at age 16(1970) and quit 2016, smoked 2 ppd.STARTED SMOKING 2019 SMOKING 1/2 PPD quit smoking a few weeks ago (08/2021) Past Drug Use History: None Reported Additional Drug Use History / Comment(s): OCCASIONAL USE OF MARIJUANA - Past Family History Mother Family Medical History: Hypertension, Myocardial Infarction ([place]) Sister(s) Family Medical History: CVA/TIA, Hypertension, Myocardial Infarction ([place]) Father Family Medical History: Cancer Additional Family Medical History / Comment(s): colon CA Brother(s) Family Medical History: Coronary Artery Disease (CAD), CVA/TIA Additional Family Medical History / Comment(s): CABG Medications and Allergies Home Medications Medication Instructions Recorded Confirmed Type Acetaminophen [Tylenol 8 Hour] 650 mg PO Q6H PRN 07/24/24 09/08/24 History Naloxone HCl 0.4 mg IM ONCE PRN 07/24/24 09/08/24 History Naloxone HCl [Narcan] 4 mg NASAL ONCE PRN 07/24/24 09/08/24 History Omeprazole Magnesium [PriLOSEC OTC] 40 mg PO DAILY 07/24/24 09/08/24 History Sacubitril/Valsartan [Entresto 24 1 tab PO BID 07/24/24 09/08/24 History mg-26 mg Tablet] Sennosides [Senokot] 8.6 mg PO Q12H PRN 07/24/24 09/08/24 History Ticagrelor [Brilinta] 90 mg PO BID 07/24/24 09/08/24 History polyethylene glycoL 3350 [Miralax] 17 gm PO DAILY PRN 07/24/24 09/08/24 History Dapagliflozin Propanediol [Farxiga] 10 mg PO DAILY tab 08/03/24 09/08/24 Rx Metoprolol Succinate (ER) [Toprol 12.5 mg PO DAILY tab 08/03/24 09/08/24 Rx XL] Pregabalin [Lyrica] 50 mg PO TID@0700,1300,1900 #6 cap 08/04/24 09/08/24 Rx Aspirin 81 mg PO HS 08/07/24 09/08/24 History Furosemide [Lasix] 20 mg PO DAILY 08/07/24 09/08/24 History Mirtazapine [Remeron] 15 mg PO HS 08/07/24 09/08/24 History methocarbamoL [Robaxin-750] 750 mg PO QID PRN 08/07/24 09/08/24 History Atorvastatin [Lipitor] 80 mg PO HS 09/08/24 09/08/24 History Diphenhydramine Hcl Injection 25 mg IM Q4H PRN 09/08/24 09/08/24 History 50mg/Ml Docusate [Colace] 100 mg PO BID 09/08/24 09/08/24 History Fluticasone Propion/Salmeterol 1 puff INHALATION RT-BID@0700,1900 09/08/24 09/08/24 History [Fluticasone-Salmeterol 100-50] Midodrine HCl [ProAmantine] 2.5 mg PO TID@07,13,19 09/08/24 09/08/24 History Ondansetron [Zofran] 4 mg PO Q8HR PRN 09/08/24 09/08/24 History Spironolactone [Aldactone] 12.5 mg PO DAILY 09/08/24 09/08/24 History Umeclidinium Matthews [Incruse 1 puff INHALATION RT-DAILY 09/08/24 09/08/24 History Ellipta] traMADol HCL 50 mg PO Q6H PRN 09/08/24 09/08/24 History Allergies Allergy/AdvReac Type Severity Reaction Status Date / Time No Known Allergies Allergy Verified 09/08/24 14:51 Physical Examination - Vital Signs Vital Signs: Vital Signs Temp Pulse Resp BP Pulse Ox 09/14/24 10:00 103 H 29 H 113/51 100 09/14/24 09:45 101 H 18 97/53 100 09/14/24 09:30 100 25 H 111/54 98 09/14/24 09:15 104 H 18 101/55 99 09/14/24 09:00 98 22 107/69 95 09/14/24 08:45 101 H 25 H 107/57 100 09/14/24 08:30 93 15 128/60 100 09/14/24 08:15 97 20 129/59 09/14/24 08:12 98 18 09/14/24 08:00 98 F 96 24 119/48 99 09/14/24 07:58 98 18 09/14/24 07:45 98 22 127/55 09/14/24 07:30 94 15 123/52 09/14/24 07:15 96 14 117/52 09/14/24 07:00 93 14 114/51 09/14/24 06:45 89 14 108/47 09/14/24 06:30 89 11 L 99/49 09/14/24 06:15 89 13 108/53 09/14/24 06:00 100 22 102/69 09/14/24 05:45 102 H 18 116/69 09/14/24 05:30 105 H 28 H 79/62 09/14/24 05:15 99 15 107/48 09/14/24 05:00 98 14 100/70 09/14/24 04:45 99 29 H 112/51 09/14/24 04:30 106 H 18 112/54 09/14/24 04:15 98 21 106/53 09/14/24 04:00 98.4 F 103 H 21 112/68 09/14/24 03:45 107 H 11 L 133/59 09/14/24 03:30 105 H 17 120/98 09/14/24 03:15 110 H 15 92/66 98 09/14/24 03:00 109 H 14 99 09/14/24 02:45 120 H 20 97/79 98 09/14/24 02:30 115 H 15 106/65 97 09/14/24 02:15 108 H 11 L 123/56 99 09/14/24 02:00 111 H 12 106/56 98 09/14/24 01:45 106 H 20 76/61 99 09/14/24 01:30 102 H 12 93/63 99 09/14/24 01:15 106 H 20 90/45 98 09/14/24 01:00 103 H 30 H 105/48 94 L 09/14/24 00:45 106 H 19 113/52 96 09/14/24 00:30 105 H 19 85/49 96 09/14/24 00:15 106 H 26 H 76/60 92 L 09/14/24 00:00 97.9 F 103 H 26 H 108/56 82 L 09/13/24 23:45 99 21 86/44 97 09/13/24 23:30 100 21 110/52 75 L 09/13/24 23:22 96 13 110/52 87 L 09/13/24 23:15 85 16 73/62 09/13/24 23:00 98 12 09/13/24 22:15 40 H 115/66 09/13/24 22:00 18 114/48 09/13/24 21:45 105 H 7 L 101/47 09/13/24 21:30 104 H 17 100/70 09/13/24 21:15 32 H 130/70 09/13/24 21:00 110 H 13 113/42 09/13/24 20:45 105 H 15 126/62 09/13/24 20:30 104 H 20 127/74 09/13/24 20:15 112 H 20 111/53 09/13/24 20:00 98.3 F 107 H 18 107/62 09/13/24 19:45 112 H 9 L 106/60 09/13/24 19:30 110 H 17 121/86 100 09/13/24 19:15 115 H 14 125/110 99 09/13/24 19:00 112 H 29 H 115/53 98 09/13/24 18:45 112 H 16 110/51 97 09/13/24 18:30 113 H 10 L 133/79 99 09/13/24 18:15 117 H 29 H 140/64 97 09/13/24 18:00 117 H 26 H 120/75 98 09/13/24 17:45 118 H 20 113/57 98 09/13/24 17:30 96 25 H 104/82 98 09/13/24 17:15 85 16 95/49 100 09/13/24 17:00 92 9 L 95/39 09/13/24 16:45 91 12 106/66 93 L 09/13/24 16:30 97 47 H 110/55 09/13/24 16:15 91 30 H 113/75 09/13/24 16:00 97.0 F L 103 H 16 121/55 09/13/24 15:45 105 H 23 105/72 09/13/24 15:30 113 H 23 125/66 98 09/13/24 15:15 120 H 28 H 135/77 98 09/13/24 15:00 129 H 16 95/43 97 09/13/24 14:45 83 22 100/46 09/13/24 14:30 89 21 98/40 09/13/24 14:15 87 24 106/50 09/13/24 14:00 90 21 98/49 09/13/24 13:45 93 23 129/29 09/13/24 13:30 102 H 50 H 98/48 93 L 09/13/24 13:15 97 19 100/66 100 09/13/24 13:00 101 H 18 110/65 99 09/13/24 12:45 104 H 32 H 89/61 98 09/13/24 12:30 105 H 24 96/56 98 09/13/24 12:15 111 H 20 136/81 98 09/13/24 12:00 97.0 F L 111 H 11 L 139/77 98 09/13/24 11:45 126 H 16 103/57 99 09/13/24 11:30 98 18 106/63 98 09/13/24 11:15 105 H 13 109/57 Intake and Output 09/13/24 09/14/24 09/14/24 22:59 06:59 14:59 Intake Total 8405.002 3191.312 415.013 Output Total 160 795 130 Balance 1613.507 247.312 285.013 Intake: IV 755 1010 335 0.9 @ KVO 60 60 10 ACETAMINOPHEN IV (For NPO 100 300 100 ) 1,000 mg In Empty Bag 1 bag @ 400 mls/hr IVPB Q6HR PRN Rx#:[id number] Cefepime 2 gm In Sodium 50 50 Chloride 0.9% 100 ml @ 25 mls/hr IVPB Q8HR [facility] Rx# :[id number] Lactated Ringers 1,000 ml 545 600 225 @ 75 mls/hr IV .[id number] [facility] Rx#:[id number] Intake, IV Titration 1018.507 32.312 80.013 Amount Cefepime 1 gm In Sodium 50 Chloride 0.9% 50 ml @ 12. 5 mls/hr IVPB Q12HR [facility] Rx#:[id number] Lactated Ringers 1,000 ml 1000 @ 999 mls/hr IV .Q1H1M ONE Rx#:[id number] Norepinephrine 8 mg In 18.507 32.312 30.013 Sodium Chloride 0.9% 250 ml @ 0.03 MCG/KG/MIN 2. 897 mls/hr IV .Q24H [facility] Rx#:[id number] Output: Urine 160 795 130 Other: Voiding Method Indwelling Catheter Indwelling Catheter Indwelling Catheter Weight 53.6 kg Patient is an elderly female, who appears to be in mild distress, but appears significantly encephalopathic. Patient is encephalopathic, not answering to any questions. Patient does not follow commands. Patient is mute. Attention, concentration and fund of knowledge are all severely limited. On cranial nerve examination, pupils are equal, and round, patient did not hold her eyes enough to check for reactivity. Patient does move her gaze on either side. Extraocular muscles appears intact. Face appears symmetric. No obvious facial weakness. Patient did not cooperate for visual field testing. She does blink to visual threat appears bilaterally. Patient did not cooperate for facial sensation testing, protruding her tongue, or shoulder shrug or hearing. On muscle strength testing, patient moves her arms spontaneously, but appears quite rigid and stiff, partly from not willing to be examined. She would not hold her arms to check for pronator drift. Patient appears to have myoclonic jerk of both hands, when she is trying to use to touch her face or move her sheets. Patient has above-knee amputation bilaterally, therefore legs cannot be tested. No obvious seizure-like activity. Deep tendon reflexes are diminished in the upper limbs, cannot be tested in the lowers because of amputation. Sensory to touch patient did not respond. However with painful stimuli, patient does have facial grimacing bilaterally. Cerebellar function not able to be tested as patient would not cooperate. Patient has some myoclonic jerks when she trying to bring her hands to her face. Gait deferred.. On general examination, there is no carotid bruit or murmur, S1-S2 audible. Chest is clear on consultation. Abdomen is soft nontender. No organomegaly, bowel sounds present. Patient has bilateral AKA. Results - Laboratory Findings CBC and BMP: 09/14/24 07:18 09/14/24 07:18 Abnormal Lab Findings: Abnormal Labs 09/08/24 09/08/24 09/08/24 13:17 13:17 13:17 WBC 11.3 H RBC 3.20 L Hgb 9.8 L Hct 30.7 L RDW 16.8 H Plt Count Neutrophils # 10.9 H Lymphocytes # 0.2 L Sodium Chloride 108 H Carbon Dioxide 20 L BUN 46 H Creatinine 1.13 H Glucose 167 H POC Glucose (mg/dL) Plasma Lactic Acid Pradeep 2.9 H* Calcium Total Bilirubin 2.3 H AST 981 H ALT 448 H Alkaline Phosphatase 740 H Troponin I Total Protein Albumin Procalcitonin TSH Urine Appearance Urine Protein Urine Blood Ur Leukocyte Esterase Urine RBC Urine WBC Urine WBC Clumps Urine Bacteria Urine Yeast (Budding) 09/08/24 09/08/24 09/08/24 13:17 13:18 16:45 WBC RBC Hgb Hct RDW Plt Count Neutrophils # Lymphocytes # Sodium Chloride Carbon Dioxide BUN Creatinine Glucose POC Glucose (mg/dL) Plasma Lactic Acid Pradeep 2.6 H* Calcium Total Bilirubin AST ALT Alkaline Phosphatase Troponin I 0.044 H* 0.096 H* Total Protein Albumin Procalcitonin TSH Urine Appearance Urine Protein Urine Blood Ur Leukocyte Esterase Urine RBC Urine WBC Urine WBC Clumps Urine Bacteria Urine Yeast (Budding) 09/09/24 09/09/24 09/09/24 05:45 09:17 09:17 WBC 26.2 H RBC 3.10 L Hgb 9.6 L Hct 30.0 L RDW 17.0 H Plt Count Neutrophils # 24.0 H Lymphocytes # Sodium Chloride 112 H Carbon Dioxide 19 L BUN 38 H Creatinine 1.10 H Glucose POC Glucose (mg/dL) Plasma Lactic Acid Pradeep Calcium 8.3 L Total Bilirubin 2.7 H AST 307 H ALT 222 H Alkaline Phosphatase 517 H Troponin I Total Protein 6.1 L Albumin 2.5 L Procalcitonin TSH Urine Appearance Turbid H Urine Protein 1+ H Urine Blood Large H Ur Leukocyte Esterase Large H Urine RBC 17 H Urine WBC >182 H Urine WBC Clumps Few H Urine Bacteria Rare H Urine Yeast (Budding) Moderate H 09/10/24 09/10/24 09/10/24 03:37 03:37 03:37 WBC 18.2 H RBC 2.95 L Hgb 9.0 L Hct 28.4 L RDW 17.6 H Plt Count Neutrophils # 15.7 H Lymphocytes # Sodium Chloride 112 H Carbon Dioxide 18 L BUN 30 H Creatinine Glucose 122 H POC Glucose (mg/dL) Plasma Lactic Acid Pradeep Calcium 7.6 L Total Bilirubin 2.2 H AST 138 H ALT 119 H Alkaline Phosphatase 436 H Troponin I Total Protein 5.5 L Albumin 2.1 L Procalcitonin 22.70 H TSH Urine Appearance Urine Protein Urine Blood Ur Leukocyte Esterase Urine RBC Urine WBC Urine WBC Clumps Urine Bacteria Urine Yeast (Budding) 09/10/24 09/11/24 09/11/24 17:03 05:44 05:44 WBC 11.3 H RBC 2.39 L Hgb 7.4 L D Hct 23.3 L RDW 17.5 H Plt Count Neutrophils # 10.3 H Lymphocytes # 0.7 L Sodium Chloride 112 H Carbon Dioxide 18 L BUN 21 H Creatinine Glucose POC Glucose (mg/dL) 138 H Plasma Lactic Acid Pradeep Calcium 7.0 L Total Bilirubin 2.0 H AST 102 H ALT 71 H Alkaline Phosphatase 489 H Troponin I Total Protein 4.8 L Albumin 1.8 L Procalcitonin TSH Urine Appearance Urine Protein Urine Blood Ur Leukocyte Esterase Urine RBC Urine WBC Urine WBC Clumps Urine Bacteria Urine Yeast (Budding) 09/12/24 09/12/24 09/13/24 04:56 04:56 04:41 WBC RBC 2.44 L Hgb 7.6 L Hct 23.7 L RDW 17.5 H Plt Count 133 L Neutrophils # Lymphocytes # Sodium 135 L 136 L Chloride 111 H 111 H Carbon Dioxide 19 L 17 L BUN Creatinine Glucose POC Glucose (mg/dL) Plasma Lactic Acid Pradeep Calcium 6.5 L 6.8 L Total Bilirubin 1.6 H AST 84 H ALT 52 H Alkaline Phosphatase 490 H Troponin I Total Protein 4.8 L Albumin 1.8 L Procalcitonin TSH 7.300 H Urine Appearance Urine Protein Urine Blood Ur Leukocyte Esterase Urine RBC Urine WBC Urine WBC Clumps Urine Bacteria Urine Yeast (Budding) 09/13/24 09/14/24 09/14/24 04:41 07:18 07:18 WBC 12.8 H 21.2 H RBC 3.31 L 2.76 L Hgb 10.3 L 8.4 L D Hct 32.2 L 27.0 L RDW 17.2 H 17.0 H Plt Count Neutrophils # 10.9 H 19.4 H Lymphocytes # Sodium Chloride 111 H Carbon Dioxide 13 L BUN 23 H Creatinine 1.19 H Glucose POC Glucose (mg/dL) Plasma Lactic Acid Pradeep Calcium 7.2 L Total Bilirubin AST ALT Alkaline Phosphatase Troponin I Total Protein Albumin Procalcitonin TSH Urine Appearance Urine Protein Urine Blood Ur Leukocyte Esterase Urine RBC Urine WBC Urine WBC Clumps Urine Bacteria Urine Yeast (Budding) Assessment and Plan Assessment: Altered mental status, likely due to toxic metabolic encephalopathy. Probable s eptic encephalopathy. History of bilateral AKA Septic shock secondary to infection/dehiscence of the left above-knee surgical wound and right above-knee surgical wound. Gram-negative septicemia Hypotension secondary to sepsis CHF with low EF 30 to 35% COPD History of chronic left ICA occlusion, right ICA 70% stenosis in 2018. CAD Severe peripheral vascular disease Chronic tobacco use Hypothyroidism Elevated troponins MARCY secondary to hypotension, resolved Hypertension Hyperlipidemia Plan: * CT head revealed no acute process. * Check EEG evaluate for epileptiform activity versus encephalopathy * Carotid Doppler, rule out carotid stenosis/occlusion. Patient does have history of chronic left ICA occlusion and 70% stenosis right ICA as per CTA f rom 2018. * Patient currently on aspirin 81 mg, Brilinta 90 mg twice daily and Lipitor 80 mg. * Patient currently on Zosyn, midodrine, Remeron. * Avoid hypotension. * Other medical management as per IM and other specialties on board. * Discussed with patient's nurse in detail. Neurology will follow. Thank you for the consult.
--- NOTE | 2024-09-14 14:05 | P.PN ---
Subjective Progress Note Date: 09/14/24 CHIEF COMPLAINT: Cholecystitis HISTORY OF PRESENT ILLNESS: The patient is a 69-year-old female in intensive care unit due to cellulitis and sepsis. She has history of bilateral khuwv-lxp-hwav amputation. At time of assessment, patient was undergoing wound VAC dressing changes for her right upmez-mkv-btpe amputation. No reports of abdominal pain. No obvious signs of moderate bleeding. ROS: Peripheral vascular occlusive disease resulting in bilateral lojif-ehr-lpii amputation, coronary artery disease status post heart catheterization, history of myocardial infarction. Obesity, BMI 36.1 PHYSICAL EXAM: VITAL SIGNS: Reviewed CONSTITUTIONAL: Well developed and in no acute distress. EYES: Conjuctivae without sclera icterus. Extraocular movements grossly intact. HEAD, EARS, NOSE, THROAT: Moist buccal mucosa. Head is atraumatic, normocephalic. Hears conversational speech. No nasal drainage. RESPIRATORY: Non-labored respirations and equal bilateral excursions. CARDIOVASCULAR: Palpable 2+ radial pulses. ABDOMEN: Peritonitis. MUSCULOSKELETAL: Bilateral mdfbk-xpn-eqfn amputation. Open wound of the right gytfs-udp-ihfq amputation undergoing wound VAC dressing change. Beefy red ti ssue noted. SKIN: Good skin turgor. Well perfused. NEUROLOGIC: Cranial nerves II through XII grossly intact. No focal or lateralizing signs. PSYCH: Appropriate affect. Alert and oriented to person CLINICAL LABS: Reviewed. WBC elevated 12,000 to over 20,000, Leukocytosis. Hemoglobin down to 10.3-8.4, anemia. Creatinine with elevated 0.89-1.19, acute renal injury. Global LFTs trending downward. STUDIES: Ultrasound of the gallbladder independently reviewed demonstrates sludge including gallstones. Mild thickening of the gallbladder wall as 0.37 cm. This is my independent interpretation ASSESSMENT: 1. Chronic cholecystitis 2. Leukocytosis 3. Anemia 4. Acute kidney injury 5. Bilateral uqdsd-lba-tevv amputations 6. Morbid obesity, BMI 36.1 PLAN: 1. Clinically, patient is abdominal pain has been improving. 2. Patient has multiple comorbidities and medical management with IV antibiotics advised in the interim due to presenting sepsis with WBC elevated over 26,000 now trending downward. 3. Patient very high surgical risk for cholecystectomy at this time. Medical m anagement advised in the interim. Objective - Vital Signs Vital signs: Vital Signs Temp 97.9 F 09/14/24 12:00 Pulse 101 H 09/14/24 12:00 Resp 23 09/14/24 12:00 BP 114/52 09/14/24 12:00 Pulse Ox 99 09/14/24 12:00 FiO2 1 09/10/24 00:00 Intake & Output 09/13/24 09/14/24 09/14/24 18:59 06:59 18:59 Intake Total 7536.139 6211.312 595.013 Output Total 370 870 380 Balance 1241.338 642.312 215.013 Weight 53.6 kg Intake: IV 525 1480 365 0.9 @ KVO 120 80 40 ACETAMINOPHEN IV (For NPO 400 100 ) 1,000 mg In Empty Bag 1 bag @ 400 mls/hr IVPB Q6HR PRN Rx#:[id number] Cefepime 2 gm In Sodium 100 Chloride 0.9% 100 ml @ 25 mls/hr IVPB Q8HR [facility] Rx# :[id number] Lactated Ringers 1,000 ml 405 900 225 @ 75 mls/hr IV .[id number] [facility] Rx#:[id number] Intake, IV Titration 1086.338 32.312 230.013 Amount Cefepime 1 gm In Sodium 50 Chloride 0.9% 50 ml @ 12. 5 mls/hr IVPB Q12HR [facility] Rx#:[id number] Dextrose 5% in Water 1, 150 000 ml @ 50 mls/hr IV . Q23H [facility] with Sodium Bicarb (1 Meq/ml) 150 ml Rx#:[id number] Lactated Ringers 1,000 ml 1000 @ 999 mls/hr IV .Q1H1M ONE Rx#:[id number] Norepinephrine 8 mg In 86.338 32.312 30.013 Sodium Chloride 0.9% 250 ml @ 0.03 MCG/KG/MIN 2. 897 mls/hr IV .Q24H [facility] Rx#:[id number] Output: Urine 370 870 380 Other: Voiding Method Indwelling Catheter Indwelling Catheter Indwelling Catheter - Labs CBC & Chem 7: 09/14/24 07:18 09/14/24 07:18 Labs: Abnormal Lab Results - Last 24 Hours (Table) 09/14/24 09/14/24 Range/Units 07:18 07:18 WBC 21.2 H (3.8-10.6) k/uL RBC 2.76 L (3.80-5.40) m/uL Hgb 8.4 L D (11.4-16.0) gm/dL Hct 27.0 L (34.0-46.0) % RDW 17.0 H (11.5-15.5) % Neutrophils # 19.4 H (1.3-7.7) k/uL Chloride 111 H (98-107) mmol/L Carbon Dioxide 13 L (22-30) mmol/L BUN 23 H (7-17) mg/dL Creatinine 1.19 H (0.52-1.04) mg/dL Calcium 7.2 L (8.4-10.2) mg/dL Microbiology - Last 24 Hours (Table) 09/11/24 05:44 Blood Culture - Preliminary Blood 09/10/24 11:05 Anaerobic Culture - Preliminary Leg - Right 09/10/24 11:05 Gram Stain - Final Leg - Right Tissue Culture - Final Escherichia coli Strep agalactiae - (group b) 09/10/24 11:10 Gram Stain - Final Leg - Left Tissue Culture - Final Strep agalactiae - (group b) Serratia marcescens ssp marces Escherichia coli 09/10/24 11:10 Anaerobic Culture - Final Leg - Left
--- NOTE | 2024-09-14 14:55 | P.PN ---
Subjective Progress Note Date: 09/14/24 Patient is seen and examined today as a follow-up. She remains in the ICU. She is confused today and not answering any questions. Wound vacs to bilateral AKA sites intact. Objective - Vital Signs Vital signs: Vital Signs Temp 98 F 09/14/24 08:00 Pulse 101 H 09/14/24 08:45 Resp 25 H 09/14/24 08:45 BP 107/57 09/14/24 08:45 Pulse Ox 100 09/14/24 08:45 FiO2 1 09/10/24 00:00 Intake & Output 09/13/24 09/14/24 09/14/24 18:59 06:59 18:59 Intake Total 3295.314 3467.312 415.013 Output Total 370 870 130 Balance 1241.338 642.312 285.013 Weight 53.6 kg Intake: IV 525 1480 335 0.9 @ KVO 120 80 10 ACETAMINOPHEN IV (For NPO 400 100 ) 1,000 mg In Empty Bag 1 bag @ 400 mls/hr IVPB Q6HR PRN Rx#:[id number] Cefepime 2 gm In Sodium 100 Chloride 0.9% 100 ml @ 25 mls/hr IVPB Q8HR [facility] Rx# :[id number] Lactated Ringers 1,000 ml 405 900 225 @ 75 mls/hr IV .[id number] [facility] Rx#:[id number] Intake, IV Titration 1086.338 32.312 80.013 Amount Cefepime 1 gm In Sodium 50 Chloride 0.9% 50 ml @ 12. 5 mls/hr IVPB Q12HR [facility] Rx#:[id number] Lactated Ringers 1,000 ml 1000 @ 999 mls/hr IV .Q1H1M ONE Rx#:[id number] Norepinephrine 8 mg In 86.338 32.312 30.013 Sodium Chloride 0.9% 250 ml @ 0.03 MCG/KG/MIN 2. 897 mls/hr IV .Q24H [facility] Rx#:[id number] Output: Urine 370 870 130 Other: Voiding Method Indwelling Catheter Indwelling Catheter Indwelling Catheter - Exam General appearance: The patient is awake, patient is not oriented. HET: Head is normocephalic and atraumatic. Pupils are equal and reactive. Neck: Supple. Abdomen: Soft, nondistended. Extremities: Bilateral atoqg-pxs-[id number] amputations warm to the touch with wound vacs in place with good suction. Neurological: Patient awake, not oriented. - Labs CBC & Chem 7: 09/14/24 07:18 09/14/24 07:18 Labs: Abnormal Lab Results - Last 24 Hours (Table) 09/14/24 09/14/24 Range/Units 07:18 07:18 WBC 21.2 H (3.8-10.6) k/uL RBC 2.76 L (3.80-5.40) m/uL Hgb 8.4 L D (11.4-16.0) gm/dL Hct 27.0 L (34.0-46.0) % RDW 17.0 H (11.5-15.5) % Neutrophils # 19.4 H (1.3-7.7) k/uL Chloride 111 H (98-107) mmol/L Carbon Dioxide 13 L (22-30) mmol/L BUN 23 H (7-17) mg/dL Creatinine 1.19 H (0.52-1.04) mg/dL Calcium 7.2 L (8.4-10.2) mg/dL Microbiology - Last 24 Hours (Table) 09/10/24 11:05 Anaerobic Culture - Preliminary Leg - Right 09/10/24 11:05 Gram Stain - Final Leg - Right Tissue Culture - Final Escherichia coli Strep agalactiae - (group b) 09/10/24 11:10 Gram Stain - Final Leg - Left Tissue Culture - Final Strep agalactiae - (group b) Serratia marcescens ssp marces Escherichia coli 09/10/24 11:10 Anaerobic Culture - Final Leg - Left 09/11/24 05:44 Blood Culture - Preliminary Blood Assessment and Plan Assessment: 1. Postop day #3 for bilateral tiqcw-dgz-siwi amputation wound debridement and wound VAC placement 2. Bilateral qwlil-ida-axcu amputation wound dehiscence 3. Altered mental status changes Plan: 1. Consult placed for wound care 2. Wound VAC to bilateral AKA stumps. Change Saturday 3. Antibiotics per recommendations from infectious disease 4. Rest of medical management per ICU team/primary medical team Thank you for this consultation, we will continue to follow. The impression and plan of care has been dictated as directed. Dr.Giliberto I performed a history and examination of this patient, discussed the same with the dictator. I agree with the dictator's note ,documented as a scribe. Any additional findings or plans will be noted.
--- NOTE | 2024-09-14 15:08 | US ---
EXAMINATION TYPE: US carotid duplex BILAT DATE OF EXAM: 09/14/2024 COMPARISON: 12/28/17 CLINICAL INDICATION: Female, 69 years old with history of History of carotid disease, altered mental status; Hx of carotid dz. Altered mental status Additional History: I65.- Occlusion/stenosis of specified precerebral artery, specified laterality TECHNIQUE: Grayscale, color Doppler and spectral Doppler evaluation of the bilateral carotid systems and vertebral arteries. Indirect Doppler criteria was utilized. FINDINGS: Child Life Specialist notes: Severely limited exam. ICU patient, pt kept moving head and trying to move my arm away. Not all i mages were obtained. EXAM MEASUREMENTS: RIGHT: Peak Systolic Velocity (PSV) cm/sec ----- Right CCA: 110.8 ----- Right ICA: 178.1 ----- Right ECA: didn't image ICA/CCA ratio: 1.6 RIGHT: End Diastole cm/sec ----- Right CCA: 28.4 ----- Right ICA: 52.7 ----- Right ECA: didn't image LEFT: Peak Systolic Velocity (PSV) cm/sec ----- Left CCA: 76.5 ----- Left ICA: 0.0 ----- Left ECA: 152.6 ICA/CCA ratio: 0.0 LEFT: End Diastole cm/sec ----- Left CCA: 19.3 ----- Left ICA: 0.0 ----- Left ECA: 36.2 VERTEBRALS (direction of flow): Right Vertebral: Antegrade Left Vertebral: Antegrade Rhythm: Normal PIGMENT MAKING SUPERVISOR NOTES: Suboptimal study due to pt lack of cooperation. Severe amount of plaque seen bilat erally. Left ICA is occluded, same as prior. Color Doppler imaging shows patency with blood flow throughout the carotid artery. Spectral waveforms are within normal limits. IMPRESSION: 1. Suboptimal study as above. 2. Known left ICA occlusion as noted previously. 3. Measurement suggests a moderate (50-69%) right ICA stenosis. Criteria for Assigning % of Stenosis / Diameter reduction (Estimation based on the indirect measurements of the internal carotid artery velocities (ICA PSV). 1. Normal (no stenosis)=ICA PSV < 125 cm/s: ratio < 2.0: ICA EDV<40 cm/s. 2. Less than 50% stenosis=ICA PSV < 125 cm/s: ratio < 2.0: ICA EDV<40 cm/s. 3. 50 to 69% stenosis=ICA PSV of 125 to 230 cm/s: ration 2.0 ? 4.0: ICA EDV 40-100 cm/s. 4. Greater than 70% stenosis to near occlusion= ICA PSV > 230 cm/s: ratio > 4.0: ICA EDV > 100 cm/s. 5. Near occlusion= ICA PSV velocities may be low or undetectable: variable ratio and ICA EDV. 6. Total occlusion=unable to detect flow. [facility], , 09/14/2024 3:05 PM
[2024-09-14] MEDS: PIPERACILLIN-TAZOBACTAM 3.375 GM in SODIUM CHLORIDE 0.9% 100 ML IVPB SCH (17:50)
--- NOTE | 2024-09-14 20:13 | CDI ---
Documentation Clarification Form Date: 09/14/2024 07:48:08 PM From: Ami Portillo Phone: [phone] Admit Date: 09/08/2024 02:31:00 PM Patient Name: Ni Seay Visit Number: [id number] Discharge Date: ATTENTION: The Clinical Documentation Specialists (CDI) and [facility] Coding Staff appreciate your assistance in clarifying documentation. Please respond to the clarification below the line at the bottom and electronically sign. The CDI & [facility] Coding staff will review the response and follow-up if needed. Please note: Queries are made part of the Legal Health Record. If you have any questions, please contact the author of this message via ITS. Doctor. Tae Navarrete A Sharp surgical debridement of bilateral above-knee amputation wounds. is documented on 09/10/24. Unfortunately, some required elements have not been documented. Additional clarification regarding the procedure is requested. History/Risk Factors: Hyperlipidemia, Hypertension, Hyperlipidemia, Hypertension, Clinical Indicators: 69-year-old female found to have bilateral above-knee amputation wound dehiscence. Right wound: The most lateral wound measured 5 cm x 5 cm x 4 mm in depth and the medial wound measured 7 x 4 cm in length and width and 1.5 cm in depth. Treatment: Zosyn 3.375 GM IVPB Q 8 HRS Bilateral Wound Vac per orders Please clarify the procedure performed: [ ] Excisional debridement (the removal of necrotic, devitalized tissue or slough by means of cutting away of tissue) Instrument: _knife Nature of the tissue removed _fat Appearance of the wound _see op report Depth of debridement _see op report [ ] Non-excisional debridement (the removal of necrotic, devitalized tissue or slough by means of flushing, brushing, or washing. (Irrigation) Instrument: __knife Nature of the tissue removed _nonviable tissue Appearance of the wound __in need of debridement to healthy tissue Depth of debridement __see op report [ ] Other; please specify Five elements required for accurate and compliant documentation of a debridement: -Technique used (e.g., excisional, excised, cutting, brushing, jet lavage etc.) -Instrument(s) used (e.g., scalpel, curette, etc.) -Nature of the tissue removed (e.g., necrotic, devitalized tissues, non-viable tissue, etc.) -Appearance and size of the wound (e.g., down to fresh bleeding tissue, 7cm x 10cm, etc.) -Depth of the debridement* (e.g., skin, subcutaneous tissue, fascia, muscle, bone, etc.) (Template Last Revised: May 2024) MTDD
--- NOTE | 2024-09-14 21:30 | P.PN ---
Subjective This is a pleasant 69 years old female who was sent from [facility] for altered mental status. 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 Since 07/2024. Patient also states she vomited once earlier. Patient fully awake and oriented, can answer questions appropriately and follows command, she does not look in distress. On admission her blood pressure was on the low side 68/53 5 sh she need to be transferred to ICU for start pressors, currently her blood pressure is better 102/50. She is having fever 103 on admission. She denies chest pain or dyspnea no right upper quadrant abdominal pain. No reports of diarrhea. Urine looks dark in the Infante catheter. No dysuria for the patient. Labs reviewed she has unremarkable CBC, BMP and LFT. Urinalysis is highly suspicious for infection Urine culture is pending Abdominal ultrasound showing cholelithiasis with minimal cholecystic fluid with thickening of the adjacent gallbladder suspicious for acute cholecystitis, however clinically does not behave like inflamed gallbladder Femur x-ray showing right AKA stump with hazy ostomy margin suspicious for osteomyelitis by the left AKA showing sharp ostomy margins. Chest x-ray showed combination of COPD and chronic CHF. Patient currently treated with broad-spectrum antibiotics with cefepime and IV vancomycin. Patient also on Ringer lactate at 130 mL/h She is continued on aspirin and Brilinta. 1/2 Patient is up in bed getting breathing treatment fully awake and oriented Still complaining from suprapubic pain and tenderness, Infante catheter is in place and picking up her urine output, overnight her urine output was low so increase her fluid currently she is getting Ringer lactate at 150 mL/h also she is getting Levophed at 0.06. Her urine output this morning improved and currently 50-100. Overnight they tried to wean off Levophed and blood pressure dropped. They will try again this morning. Patient remains on antibiotics cefepime and IV vancomycin for her sepsis, several sources are suspected. Most likely the source is acute urinary tract infection I spoke with Dr. Rg this morning, he still suspect there is acute cholecystitis at the source of her sepsis and he recommended cholecystectomy but not currently because of her clinical condition and because she has been on Brilinta Also she has infected stump wounds in both legs and she is going for OR today especially on the right side however per vascular surgery it is unlikely to be the source of infection. Currently patient n.p.o. for the procedure 09/11 Patient remains awake and alert sitting up in bed. Mentation at baseline. Both AKA stumps are in a dressing after she underwent debridement yesterday, parents is more severe in these areas as patient explains. However patient still complains from suprapubic and RUQ tenderness today. No other new complaint. The patient She remains on IV vancomycin and cefepime and dual antiplatelet therapy with aspirin and Brilinta from home Her numbers are improving with WBC down 26, 18 and today 11.3, creatinine 1.1 on admission came back to 0.8 Hemoglobin also came down to 9.6 down to 7.4 but this is after debridement and will continue close monitoring and will transfuse if hemoglobin less than 7 Liver enzymes trending down as well Patient continue to need very close monitoring in the ICU with frequent rounding 09/14 I am resuming the care of the patient today Patient today remains in the ICU however she is very confused, looks mildly agitated and does not answer questions and follow commands. However her abdominal tenderness significantly improved, there is no suprapubic tenderness or RUQ tenderness And both AKA wounds are in dressing and looks. Patient evaluated by neurology service, ordered carotid Doppler showing with known left ICA stenosis and occlusion while right ICA is 50 to 69% occlusion Patient remains on broad-spectrum antibiotic,'s antibiotic switch from cefepime IV vancomycin to Zosyn. His leukocyte count worsened up to 21,000 Active Medications Generic Name Dose Route Start Last Admin Trade Name Freq PRN Reason Stop Dose Admin Acetaminophen 650 mg 09/08/24 14:31 Acetaminophen Tab 325 Mg Tab PO Q6HR PRN Mild Pain or Fever > 100.5 Aspirin 81 mg 09/08/24 21:00 09/14/24 20:55 Aspirin 81 Mg PO Not Given HS AMANDA Atorvastatin Calcium 80 mg 09/08/24 21:00 09/14/24 20:55 Atorvastatin 80 Mg Tab PO Not Given HS AMANDA Budesonide/Formoterol Fumarate 2 puff 09/08/24 19:00 09/14/24 21:23 Symbicort 80-4.5 Mcg Inhaler INHALATION Not Given RT-BID@0700,1900 [facility] Dapagliflozin 10 mg 09/09/24 09:00 09/14/24 08:51 Dapagliflozin Propanediol 10 Mg Tablet PO Not Given DAILY [facility] Docusate Sodium 100 mg 09/08/24 21:00 09/14/24 20:56 Docusate 100 Mg Cap PO Not Given BID [facility] Heparin Sodium (Porcine) 5,000 unit 09/15/24 00:00 Heparin Sodium,Porcine 5,000 Unit/Ml 1 Ml Vial SQ Q8HR [facility] Hydrocortisone Sodium Succinate 50 mg 09/13/24 12:00 09/14/24 17:50 Hydrocortisone Succinate 100 Mg/2 Ml Vial IV 50 mg Q6HR [facility]DA Administration Norepinephrine Bitartrate 8 mg 258 mls @ 2.897 mls/hr 09/10/24 18:15 09/14/24 17:57 / Sodium Chloride IV Not Given .Q24H [facility] Protocol 0.03 MCG/KG/MIN Sodium Bicarbonate 150 ml/ 1,150 mls @ 50 mls/hr 09/14/24 11:00 09/14/24 11:49 Dextrose/Water IV 50 mls/hr .Q23H [facility] Administration Piperacillin Sod/Tazobactam 100 mls @ 25 mls/hr 09/14/24 16:00 09/14/24 17:50 Sod 3.375 gm/ Sodium Chloride IVPB 25 mls/hr Q8HR [facility] Administration Protocol Ibuprofen 400 mg 09/08/24 14:31 09/12/24 13:35 Ibuprofen 400 Mg Tab PO 400 mg Q6HR PRN Administration Mild Pain or Fever > 100.5 Ipratropium [place] 0.5 mg 09/09/24 08:00 09/14/24 21:23 Ipratropium 0.5 Mg/2.5 Ml Nebu INHALATION Not Given RT-QID [facility] Levothyroxine Sodium 75 mcg 09/13/24 09:45 09/14/24 06:39 Levothyroxine 75 Mcg Tab PO Not Given DAILY@0630 [facility] Methocarbamol 750 mg 09/08/24 16:01 Methocarbamol 750 Mg Tab PO QID PRN Muscle Spasm Midodrine 10 mg 09/12/24 12:00 09/14/24 17:57 Midodrine 5 Mg Tab PO Not Given TID@0600,1200,1800 [facility] Mirtazapine 15 mg 09/08/24 21:00 09/14/24 20:56 Mirtazapine 15 Mg Tab PO Not Given [facility] Miscellaneous Information 1 each 09/12/24 10:49 Potassium Replacement Protocol 1 Each Misc MISCELLANE DAILY PRN Per Protocol Protocol Naloxone HCl 0.2 mg 09/08/24 14:31 Naloxone 0.4 Mg/Ml 1 Ml Vial IV Q2M PRN Opioid Reversal Ondansetron HCl 4 mg 09/09/24 09:38 09/13/24 17:54 Ondansetron 4 Mg/2 Ml Vial IVP 4 mg Q6HR PRN Administration Nausea And Vomiting Pantoprazole Sodium 40 mg 09/09/24 09:00 09/14/24 08:51 Pantoprazole 40 Mg Tablet PO Not Given DAILY [facility] Polyethylene Glycol 17 gm 09/08/24 16:01 Polyethylene Glycol 3350 17 Gm Powd.Pack PO DAILY PRN Constipation Pregabalin 50 mg 09/12/24 16:00 09/14/24 17:45 Pregabalin 50 Mg Cap PO Not Given TID [facility] Prochlorperazine Maleate 5 mg 09/13/24 15:21 09/13/24 16:32 Prochlorperazine 5 Mg Tab PO 5 mg Q8HR PRN Administration Nausea And Vomiting Sacubitril/Valsartan 1 each 09/08/24 21:00 09/14/24 20:56 Sacubitril/Valsartan 24 Mg-26 Mg Tablet PO Not Given BID [facility] Senna 8.6 mg 09/08/24 16:01 Sennosides 8.6 Mg Tab PO Q12H PRN Constipation Ticagrelor 90 mg 09/08/24 21:00 09/14/24 20:56 Ticagrelor 90 Mg Tab PO Not Given BID [facility] Tramadol HCl 50 mg 09/08/24 16:01 09/11/24 13:46 Tramadol 50 Mg Tab PO 50 mg Q6H PRN Administration Pain Objective - Vital Signs Vital signs: Vital Signs Temp 97.9 F 09/14/24 12:00 Pulse 101 H 09/14/24 12:00 Resp 23 09/14/24 12:00 BP 114/52 09/14/24 12:00 Pulse Ox 99 09/14/24 12:00 FiO2 1 09/10/24 00:00 Intake & Output 09/13/24 09/14/24 09/14/24 18:59 06:59 18:59 Intake Total 9347.771 7647.312 595.013 Output Total 370 870 380 Balance 1241.338 642.312 215.013 Weight 53.6 kg Intake: IV 525 1480 365 0.9 @ KVO 120 80 40 ACETAMINOPHEN IV (For NPO 400 100 ) 1,000 mg In Empty Bag 1 bag @ 400 mls/hr IVPB Q6HR PRN Rx#:[id number] Cefepime 2 gm In Sodium 100 Chloride 0.9% 100 ml @ 25 mls/hr IVPB Q8HR [facility] Rx# :[id number] Lactated Ringers 1,000 ml 405 900 225 @ 75 mls/hr IV .[id number] [facility] Rx#:[id number] Intake, IV Titration 1086.338 32.312 230.013 Amount Cefepime 1 gm In Sodium 50 Chloride 0.9% 50 ml @ 12. 5 mls/hr IVPB Q12HR [facility] Rx#:[id number] Dextrose 5% in Water 1, 150 000 ml @ 50 mls/hr IV . Q23H [facility] with Sodium Bicarb (1 Meq/ml) 150 ml Rx#:[id number] Lactated Ringers 1,000 ml 1000 @ 999 mls/hr IV .Q1H1M [facility] Rx#:[id number] Norepinephrine 8 mg In 86.338 32.312 30.013 Sodium Chloride 0.9% 250 ml @ 0.03 MCG/KG/MIN 2. 897 mls/hr IV .Q24H [facility] Rx#:[id number] Output: Urine 370 870 380 Other: Voiding Method Indwelling Catheter Indwelling Catheter Indwelling Catheter - Exam -GENERAL: The patient isAwake but confused, not in any acute distress. Well developed, well nourished. HEENT: Pupils are round and equally reacting to light. EOMI. No scleral icterus. No conjunctival pallor. Normocephalic, atraumatic. No pharyngeal erythema. No thyromegaly. CARDIOVASCULAR: S1 and S2 present. No murmurs, rubs, or gallops. PULMONARY: Chest is clear to auscultation, no wheezing , no crackles. -ABDOMEN: Soft, nondistended, normoactive bowel sounds. No palpable organomegaly. Suprapubic tenderness improved. Infante catheter in place MUSCULOSKELETAL: No joint swelling or deformity. -EXTREMITIES: No cyanosis, clubbing, or pedal edema. Bilateral AKA with superficial wounds of the bilateral stumps with dressing in place after debridement on 09/10 NEUROLOGICAL: Gross neurological examination did not reveal any focal deficits. SKIN: No rashes. no petechiae. - Labs CBC & Chem 7: 09/14/24 07:18 09/14/24 07:18 Labs: Abnormal Lab Results - Last 24 Hours (Table) 09/14/24 09/14/24 Range/Units 07:18 07:18 WBC 21.2 H (3.8-10.6) k/uL RBC 2.76 L (3.80-5.40) m/uL Hgb 8.4 L D (11.4-16.0) gm/dL Hct 27.0 L (34.0-46.0) % RDW 17.0 H (11.5-15.5) % Neutrophils # 19.4 H (1.3-7.7) k/uL Chloride 111 H (98-107) mmol/L Carbon Dioxide 13 L (22-30) mmol/L BUN 23 H (7-17) mg/dL Creatinine 1.19 H (0.52-1.04) mg/dL Calcium 7.2 L (8.4-10.2) mg/dL Microbiology - Last 24 Hours (Table) 09/11/24 05:44 Blood Culture - Preliminary Blood 09/10/24 11:05 Anaerobic Culture - Preliminary Leg - Right 09/10/24 11:05 Gram Stain - Final Leg - Right Tissue Culture - Final Escherichia coli Strep agalactiae - (group b) 09/10/24 11:10 Gram Stain - Final Leg - Left Tissue Culture - Final Strep agalactiae - (group b) Serratia marcescens ssp marces Escherichia coli 09/10/24 11:10 Anaerobic Culture - Final Leg - Left Assessment and Plan Assessment: Cellulitis and infections of bilateral AKA stumps, there is suspicion of osteomyelitis at the distal margins of the right stump per x-ray. Status post I&D by vascular surgery on 09/10 Acute urinary tract infection with suprapubic tenderness. Urine cultures pending Gallbladder disease with gallstones, but there is suspicion of acute cholecystitis Severe sepsis/septic shock, present on admission, improving Peripheral artery disease Plan: continue with broad-spectrum antibiotics, currently on Zosyn Continue sodium bicarb No need for pressors Continu dual antiplatelet therapy S/p 09/10/24 for I&D of the AKA stumps Several consultants on the case including pulmonary/critical, vascular surgery and ID team General Surgery also seen the patient Labs and medication were reviewed.. Continue same treatment. Continue with sym ptomatic treatment. Resume home medication. Monitor labs and vitals. DVT and GI prophylaxis. Further recommendations as per clinical course of the patient DVT prophylaxis: On dual antiplatelet therapy GI Prophylaxis: Protonix Prognosis is guarded
[2024-09-15] MEDS: HEPARIN SODIUM,PORCINE 5,000 UNIT/ML 1 ML VIAL SQ SCH (00:05)
--- NOTE | 2024-09-15 05:02 | P.PN ---
Subjective Progress Note Date: 09/14/24 Principal diagnosis: Reason for follow-up is sepsis bacteremia Patient is a 69-year-old female with multiple comorbidity patient did have a significant PAD and did have a bilateral [id number] amputations with subsequent dehiscence of the wound patient has been sent [facility] the local [facility] hospital with fever, patient be diagnosed with sepsis admitted to the ICU did have a positive blood culture with Klebsiella. Patient is status post surgical debridement of bilateral AKA wound and application of wound VAC culture has been obtained On today's evaluation that is 09/14/2023, patient has been afebrile, patient is breathing comfortably and is currently on room air, patient did have significant mental status changes and is lethargic today unable to provide any history no vomiting diarrhea and the changes reported by the nursing staff. Patient white count is up to 21.2 creatinine is 1.19 Objective - Vital Signs Vital signs: Vital Signs Temp 97.9 F 09/14/24 12:00 Pulse 101 H 09/14/24 12:00 Resp 23 09/14/24 12:00 BP 114/52 09/14/24 12:00 Pulse Ox 99 09/14/24 12:00 FiO2 1 09/10/24 00:00 Intake & Output 09/13/24 09/14/24 09/14/24 18:59 06:59 18:59 Intake Total 6353.278 5482.312 595.013 Output Total 370 870 380 Balance 1241.338 642.312 215.013 Weight 53.6 kg Intake: IV 525 1480 365 0.9 @ KVO 120 80 40 ACETAMINOPHEN IV (For NPO 400 100 ) 1,000 mg In Empty Bag 1 bag @ 400 mls/hr IVPB Q6HR PRN Rx#:[id number] Cefepime 2 gm In Sodium 100 Chloride 0.9% 100 ml @ 25 mls/hr IVPB Q8HR AMANDA Rx# :[id number] Lactated Ringers 1,000 ml 405 900 225 @ 75 mls/hr IV .[id number] AMANDA Rx#:[id number] Intake, IV Titration 1086.338 32.312 230.013 Amount Cefepime 1 gm In Sodium 50 Chloride 0.9% 50 ml @ 12. 5 mls/hr IVPB Q12HR AMANDA Rx#:[id number] Dextrose 5% in Water 1, 150 000 ml @ 50 mls/hr IV . Q23H AMANDA with Sodium Bicarb (1 Meq/ml) 150 ml Rx#:[id number] Lactated Ringers 1,000 ml 1000 @ 999 mls/hr IV .Q1H1M ONE Rx#:[id number] Norepinephrine 8 mg In 86.338 32.312 30.013 Sodium Chloride 0.9% 250 ml @ 0.03 MCG/KG/MIN 2. 897 mls/hr IV .Q24H AMANDA Rx#:[id number] Output: Urine 370 870 380 Other: Voiding Method Indwelling Catheter Indwelling Catheter Indwelling Catheter - Exam GENERAL DESCRIPTION: An elderly female lying in bed in no distress RESPIRATORY SYSTEM: Unlabored breathing , decreased breath sounds at bases HEART: S1 S2 regular rate and rhythm , ABDOMEN: Soft , no tenderness EXTREMITIES: Bilateral AKA stump wound is covered with a wound VAC - Labs CBC & Chem 7: 09/14/24 07:18 09/14/24 07:18 Labs: Abnormal Lab Results - Last 24 Hours (Table) 09/14/24 09/14/24 Range/Units 07:18 07:18 WBC 21.2 H (3.8-10.6) k/uL RBC 2.76 L (3.80-5.40) m/uL Hgb 8.4 L D (11.4-16.0) gm/dL Hct 27.0 L (34.0-46.0) % RDW 17.0 H (11.5-15.5) % Neutrophils # 19.4 H (1.3-7.7) k/uL Chloride 111 H (98-107) mmol/L Carbon Dioxide 13 L (22-30) mmol/L BUN 23 H (7-17) mg/dL Creatinine 1.19 H (0.52-1.04) mg/dL Calcium 7.2 L (8.4-10.2) mg/dL Microbiology - Last 24 Hours (Table) 09/10/24 11:05 Anaerobic Culture - Preliminary Leg - Right 09/10/24 11:05 Gram Stain - Final Leg - Right Tissue Culture - Final Escherichia coli Strep agalactiae - (group b) 09/10/24 11:10 Gram Stain - Final Leg - Left Tissue Culture - Final Strep agalactiae - (group b) Serratia marcescens ssp marces Escherichia coli 09/10/24 11:10 Anaerobic Culture - Final Leg - Left 09/11/24 05:44 Blood Culture - Preliminary Blood Assessment and Plan (1) Bilateral lower leg cellulitis Current Visit: Yes Status: Acute Code(s): L03.116 - CELLULITIS OF LEFT LOWER LIMB; L03.115 - CELLULITIS OF RIGHT LOWER LIMB SNOMED Code(s): 250272134 (2) Sepsis Current Visit: Yes Status: Acute Code(s): A41.9 - SEPSIS, UNSPECIFIED ORGANISM SNOMED Code(s): 30188486 (3) Bacteremia Current Visit: Yes Status: Acute Code(s): R78.81 - BACTEREMIA SNOMED Code(s): 9855470 Plan: 1patient is in the hospital with sepsis in this patient with a fever tachycardia elevated white count source is likely bilateral AKA wound and concern for osteomyelitis to the right AKA stump site however the patient also have elevated liver enzyme and there was a history of vomiting underlying abdominal source monitor excluded. 2patient has been evaluated by vascular surgery and is status post debridement of the wound and deep culture completed on 09/10/2024 3patient does have a positive blood culture with Klebsiella, repeat cultures so far negative 4 ultrasound of the abdomen suggestive of possible cholecystitis General Surgery is being consulted recommending medical treatment at this point 5patient culture has been mostly gram-negative with Serratia and E. coli in the OR culture, 6patient did have significant mental status changes and white count is up we will discontinue cefepime start the patient on Zosyn and monitor clinical course closely Dictation was produced using [employer] dictation software. please excuse any grammatical, word or spelling errors. Time with Patient: Less than 30
[2024-09-15 06:21] LABS: Anisocytosis Slight; Basophils % (A) 0 %; Eosinophils % (A) 0 %; HCT 22.6 % (34.0-46.0); HGB 7.3 gm/dL (11.4-16.0); Hypochromasia Moderate; Lymphocytes # (A) 0.7 k/uL (1.0-4.8); Lymphocytes % (A) 5 %; MCH 31.1 pg (25.0-35.0); MCHC 32.4 g/dL (31.0-37.0); MCV 96.1 fL (80.0-100.0); Mean Platelet Volume 8.9; Monocytes # (A) 0.3 k/uL (0-1.0); Monocytes % (A) 2 %; Neutrophils # (A) 12.1 k/uL (1.3-7.7); Neutrophils % (A) 92 %; Platelet Count 119 k/uL (150-450); RBC 2.35 m/uL (3.80-5.40); WBC 13.2 k/uL (3.8-10.6)
[2024-09-15 06:38] LABS: African American GFR (CKD) 55 (>60 ml/min/1.73 sqM); Anion Gap 9 mmol/L; Blood Urea Nitrogen 24 mg/dL (7-17); Carbon Dioxide 18 mmol/L (22-30); Chloride 113 mmol/L (98-107); Glucose 139 mg/dL (74-99); Non-African American GFR(CKD) 48 (>60 ml/min/1.73 sqM); Potassium 2.8 mmol/L (3.5-5.1); Sodium 140 mmol/L (137-145)
[2024-09-15] MEDS ORDERED: Potassium Replacement Protocol 1 EACH MISC MISCELLANE PRN (07:56)
--- NOTE | 2024-09-15 08:11 | P.PN ---
Subjective This is a pleasant 69 years old female who was sent from [facility] for altered mental status. 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 Since 07/2024. Patient also states she vomited once earlier. Patient fully awake and oriented, can answer questions appropriately and follows command, she does not look in distress. On admission her blood pressure was on the low side 68/53 5 sh she need to be transferred to ICU for start pressors, currently her blood pressure is better 102/50. She is having fever 103 on admission. She denies chest pain or dyspnea no right upper quadrant abdominal pain. No reports of diarrhea. Urine looks dark in the Infante catheter. No dysuria for the patient. Labs reviewed she has unremarkable CBC, BMP and LFT. Urinalysis is highly suspicious for infection Urine culture is pending Abdominal ultrasound showing cholelithiasis with minimal cholecystic fluid with thickening of the adjacent gallbladder suspicious for acute cholecystitis, however clinically does not behave like inflamed gallbladder Femur x-ray showing right AKA stump with hazy ostomy margin suspicious for osteomyelitis by the left AKA showing sharp ostomy margins. Chest x-ray showed combination of COPD and chronic CHF. Patient currently treated with broad-spectrum antibiotics with cefepime and IV vancomycin. Patient also on Ringer lactate at 130 mL/h She is continued on aspirin and Brilinta. 1/2 Patient is up in bed getting breathing treatment fully awake and oriented Still complaining from suprapubic pain and tenderness, Infante catheter is in place and picking up her urine output, overnight her urine output was low so increase her fluid currently she is getting Ringer lactate at 150 mL/h also she is getting Levophed at 0.06. Her urine output this morning improved and currently 50-100. Overnight they tried to wean off Levophed and blood pressure dropped. They will try again this morning. Patient remains on antibiotics cefepime and IV vancomycin for her sepsis, several sources are suspected. Most likely the source is acute urinary tract infection I spoke with Dr. Rg this morning, he still suspect there is acute cholecystitis at the source of her sepsis and he recommended cholecystectomy but not currently because of her clinical condition and because she has been on Brilinta Also she has infected stump wounds in both legs and she is going for OR today especially on the right side however per vascular surgery it is unlikely to be the source of infection. Currently patient n.p.o. for the procedure 09/11 Patient remains awake and alert sitting up in bed. Mentation at baseline. Both AKA stumps are in a dressing after she underwent debridement yesterday, parents is more severe in these areas as patient explains. However patient still complains from suprapubic and RUQ tenderness today. No other new complaint. The patient She remains on IV vancomycin and cefepime and dual antiplatelet therapy with aspirin and Brilinta from home Her numbers are improving with WBC down 26, 18 and today 11.3, creatinine 1.1 on admission came back to 0.8 Hemoglobin also came down to 9.6 down to 7.4 but this is after debridement and will continue close monitoring and will transfuse if hemoglobin less than 7 Liver enzymes trending down as well Patient continue to need very close monitoring in the ICU with frequent rounding 09/14 I am resuming the care of the patient today Patient today remains in the ICU however she is very confused, looks mildly agitated and does not answer questions and follow commands. However her abdominal tenderness significantly improved, there is no suprapubic tenderness or RUQ tenderness And both AKA wounds are in dressing and looks. Patient evaluated by neurology service, ordered carotid Doppler showing with known left ICA stenosis and occlusion while right ICA is 50 to 69% occlusion Patient remains on broad-spectrum antibiotic,'s antibiotic switch from cefepime IV vancomycin to Zosyn. His leukocyte count worsened up to 21,000 09/15 Patient remains in the ICU She is still confused and drowsy, she is not answering questions or follows command Her abdomen looks soft with mild suprapubic tenderness Urinary catheter in place. Antibiotic no was adjusted to Zosyn, leukocytosis improved down to 13,000, which is improved Hemoglobin dropped to 7.3 will need close monitoring Patient remains on sodium bicarb drip at 50 mL/h Objective - Vital Signs Vital signs: Vital Signs Temp 98.5 F 09/15/24 04:00 Pulse 92 09/15/24 07:48 Resp 22 09/15/24 07:48 BP 116/47 09/15/24 07:00 Pulse Ox 99 09/15/24 07:00 FiO2 1 09/10/24 00:00 Intake & Output 09/14/24 09/15/24 09/15/24 18:59 06:59 18:59 Intake Total 1055.013 980 60 Output Total 730 775 60 Balance 325.013 205 0 Weight 53.7 kg Intake: IV 425 830 60 0.9 @ KVO 100 80 10 ACETAMINOPHEN IV (For NPO 100 ) 1,000 mg In Empty Bag 1 bag @ 400 mls/hr IVPB Q6HR PRN Rx#:[id number] Dextrose 5% in Water 1, 550 50 000 ml @ 50 mls/hr IV . Q23H AMANDA with Sodium Bicarb (1 Meq/ml) 150 ml Rx#:[id number] Lactated Ringers 1,000 ml 225 @ 75 mls/hr IV .[id number] AMANDA Rx#:[id number] Piperacillin-Tazobactam 3 200 .375 gm In Sodium Chloride 0.9% 100 ml @ 25 mls/hr IVPB Q8HR AMANDA Rx# :[id number] Intake, IV Titration 630.013 150 Amount Cefepime 1 gm In Sodium 50 Chloride 0.9% 50 ml @ 12. 5 mls/hr IVPB Q12HR AMANDA Rx#:[id number] Dextrose 5% in Water 1, 450 50 000 ml @ 50 mls/hr IV . Q23H AMANDA with Sodium Bicarb (1 Meq/ml) 150 ml Rx#:[id number] Norepinephrine 8 mg In 30.013 Sodium Chloride 0.9% 250 ml @ 0.03 MCG/KG/MIN 2. 897 mls/hr IV .Q24H AMANDA Rx#:[id number] Piperacillin-Tazobactam 3 100 100 .375 gm In Sodium Chloride 0.9% 100 ml @ 25 mls/hr IVPB Q8HR AMANDA Rx# :[id number] Output: Urine 730 775 60 Other: Voiding Method Indwelling Catheter Indwelling Catheter # Bowel Movements 1 1 - Exam -GENERAL: The patient isAwake but confused, not in any acute distress. Well deve loped, well nourished. HEENT: Pupils are round and equally reacting to light. EOMI. No scleral icterus. No conjunctival pallor. Normocephalic, atraumatic. No pharyngeal erythema. No thyromegaly. CARDIOVASCULAR: S1 and S2 present. No murmurs, rubs, or gallops. PULMONARY: Chest is clear to auscultation, no wheezing , no crackles. -ABDOMEN: Soft, nondistended, normoactive bowel sounds. No palpable organomegaly. Suprapubic tenderness improved. Infante catheter in place MUSCULOSKELETAL: No joint swelling or deformity. -EXTREMITIES: No cyanosis, clubbing, or pedal edema. Bilateral AKA with eubanks perficial wounds of the bilateral stumps with dressing in place after debridement on 09/10 NEUROLOGICAL: Gross neurological examination did not reveal any focal deficits. SKIN: No rashes. no petechiae. - Labs CBC & Chem 7: 09/15/24 05:50 09/15/24 05:50 Labs: Abnormal Lab Results - Last 24 Hours (Table) 09/14/24 09/14/24 09/14/24 Range/Units 07:18 07:18 07:18 WBC 21.2 H (3.8-10.6) k/uL RBC 2.76 L (3.80-5.40) m/uL Hgb 8.4 L D (11.4-16.0) gm/dL Hct 27.0 L (34.0-46.0) % RDW 17.0 H (11.5-15.5) % Plt Count (150-450) k/uL Neutrophils # 19.4 H (1.3-7.7) k/uL Lymphocytes # (1.0-4.8) k/uL Potassium (3.5-5.1) mmol/L Chloride 111 H (98-107) mmol/L Carbon Dioxide 13 L (22-30) mmol/L BUN 23 H (7-17) mg/dL Creatinine 1.19 H (0.52-1.04) mg/dL Glucose (74-99) mg/dL Calcium 7.2 L (8.4-10.2) mg/dL Procalcitonin 3.18 H (0.02-0.50) ng/mL 09/15/24 09/15/24 Range/Units 05:50 05:50 WBC 13.2 H (3.8-10.6) k/uL RBC 2.35 L (3.80-5.40) m/uL Hgb 7.3 L (11.4-16.0) gm/dL Hct 22.6 L (34.0-46.0) % RDW 17.0 H (11.5-15.5) % Plt Count 119 L (150-450) k/uL Neutrophils # 12.1 H (1.3-7.7) k/uL Lymphocytes # 0.7 L (1.0-4.8) k/uL Potassium 2.8 L (3.5-5.1) mmol/L Chloride 113 H (98-107) mmol/L Carbon Dioxide 18 L (22-30) mmol/L BUN 24 H (7-17) mg/dL Creatinine 1.16 H (0.52-1.04) mg/dL Glucose 139 H (74-99) mg/dL Calcium 7.0 L (8.4-10.2) mg/dL Procalcitonin (0.02-0.50) ng/mL Microbiology - Last 24 Hours (Table) 09/10/24 11:05 Anaerobic Culture - Final Leg - Right 09/11/24 05:44 Blood Culture - Preliminary Blood Assessment and Plan Assessment: Cellulitis and infections of bilateral AKA stumps, there is suspicion of osteomyelitis at the distal margins of the right stump per x-ray. Status post I&D by vascular surgery on 09/10 Acute urinary tract infection with suprapubic tenderness. Urine cultures pending Gallbladder disease with gallstones, but there is suspicion of acute cholecystitis Severe sepsis/septic shock, present on admission, improving Peripheral artery disease Plan: continue with broad-spectrum antibiotics, currently on Zosyn Continue sodium bicarb No need for pressors Continu dual antiplatelet therapy S/p 09/10/24 for I&D of the AKA stumps Several consultants on the case including pulmonary/critical, vascular surgery and ID team General Surgery also seen the patient Labs and medication were reviewed.. Continue same treatment. Continue with symptomatic treatment. Resume home medication. Monitor labs and vitals. DVT and GI prophylaxis. Further recommendations as per clinical course of the patient DVT prophylaxis: On dual antiplatelet therapy GI Prophylaxis: Protonix Prognosis is guarded
[2024-09-15] MEDS: POTASSIUM CHLORIDE 20 MEQ in WATER FOR INJECTION 1 100ML.BAG IVPB SCH ×2 (08:14→18:18)
--- NOTE | 2024-09-15 09:50 | CA ---
Transthoracic Echo Report Name: Ni Seay Age: 69 Gender: F : 1955 Exam Date: 09/14/2024 13:23 Exam Location: [facility] Ht (in): 36 Wt (lb): 118 Ordering Physician: Bekah Burkett MD Attending/Referring Phys: Rn Document Improvement Erin Ennis RDCS Procedure CPT: Indications: hypotensive, previous reduced EF Cardiac Hx: Technical Quality: Fair Contrast 1: Total Dose (mL): Contrast 2: Total Dose (mL): MEASUREMENTS (Male / Female) Normal Values 2D ECHO LV Diastolic Diameter PLAX 5.7 cm 4.2 - 5.9 / 3.9 - 5.3 cm LV Systolic Diameter PLAX 4.5 cm IVS Diastolic Thickness 1.0 cm 0.6 - 1.0 / 0.6 - 0.9 cm LVPW Diastolic Thickness 1.0 cm 0.6 - 1.0 / 0.6 - 0.9 cm LV Relative Wall Thickness 0.3 RV Internal Dim ED PLAX 2.1 cm LA Systolic Diameter LX 4.8 cm 3.0 - 4.0 / 2.7 - 3.8 cm LV Diastolic Volume MOD BP 81.7 cm??? 67 - 155 / 56 - 104 cm??? LV Systolic Volume MOD BP 64.4 cm??? 22 - 58 / 19 - 49 cm??? LV Ejection Fraction MOD BP 21.2 % >= 55 % LV Cardiac Index MOD BP 1834.8 cm???/min???m??? LV Diastolic Volume MOD 4C 82.3 cm??? LV Systolic Volume MOD 4C 66.4 cm??? LV Ejection Fraction MOD 4C 19.3 % LV Cardiac Index MOD 4C 1681.3 cm???/min???m??? LV Diastolic Length 4C 7.2 cm LV Systolic Length 4C 7.3 cm LV Diastolic Volume MOD 2C 78.8 cm??? LV Systolic Volume MOD 2C 60.6 cm??? LV Ejection Fraction MOD 2C 23.1 % LV Cardiac Index MOD 2C 1930.9 cm???/min???m??? LV Diastolic Length 2C 7.4 cm LV Systolic Length 2C 7.0 cm M-MODE Aortic Root Diameter MM 2.6 cm LA Systolic Diameter MM 4.3 cm LA Ao Ratio MM 1.6 AV Cusp Separation MM 1.4 cm FINDINGS Left Ventricle Left ventricular ejection fraction is estimated at 20-25 %. Mildly increased left ventricular diastolic diameter. Moderately increased left ventricular systolic volume. Severely decreased left ventricular ejection fraction. Right Ventricle Right Atrium Left Atrium Severely increased left atrial diameter. Mitral Valve Aortic Valve Tricuspid Valve Pulmonic Valve Pericardium Small pericardial effusion. Pericardial effusion located near the right atrium. Aorta Normal size aortic root and proximal ascending aorta. CONCLUSIONS Limited echo LVEF 25% Severely reduced global LV systolic function Severe LA dilatation Small pericardial effusion No significant difference when compared to prior echo from July 2024 Previewed by: Dr Ronni Ellington (Electronically Signed) Final Date: 15 September 2024 09:49
--- NOTE | 2024-09-15 10:40 | P.PN ---
Subjective Progress Note Date: 09/15/24 On 09/14/2023, this 69-year-old female patient is being seen for a follow-up in the intensive care unit where she was hospitalized for cellulitis and secondary septicemia. The patient is known to have coronary artery disease, hypertension, hyperlipidemia, and previous right above-knee amputation and subsequent left above-knee amputation. The patient's blood cultures were positive for E. coli and Klebsiella at the time of admission and the patient was quite septic. She stands. EGD and debridement completed and she is was seen by vascular surgery osteomyelitis of her right femur and the patient underwent surgical debridement of the bilateral above-knee amputation wounds and wound VAC was placed on both sides. The patient did have wound dehiscence bilaterally. The x-ray of the right femur showed haziness in the right stump suspicious for osteomyelitis. Left side was essentially within normal limits. The wound cultures from the left were positive for strep group B, Serratia marcescens and E. coli in the cultures from the right were positive for E. coli and strep group B. Based on this, the patient was given broad-spectrum antibiotics and the patient is currently on IV cefepime. Hemodynamically, the patient is still requiring low- dose pressors. She remains on lactated Ringer at rate of 20 cc an hour. She is also on midodrine 10 mg p.o. 3 times daily. She was also started on hyd rocortisone due to concerns of adrenal sufficiency. Serum cortisol at baseline was 10.6. Blood work from today shows a WBC count of 12.8 with hemoglobin 10.3 and a platelet count of 183. BUN is 17 with a creatinine of 0.89 and sodium levels at 136 and a potassium level is at 4.2. LFTs have been downtrending with an AST of 84, ALT of 52 and alkaline phosphatase elevated at 490, probably related to underlying osteomyelitis. Procalcitonin level was 22.7 at the time of admission. TSH was at 7.3 at time of admission and the patient is currently on levothyroxine 75 mcg p.o. daily. Her most recent echocardiogram from October 2023 showed impaired LV function with an ejection fraction of 30 to 35% along with mild pulmonary hypertension. She is currently on 2 L of oxygen by nasal cannula. She is on LR at 75 cc / hr. She is on Ne at 0.01 mc/kg/min. On 09/15/2024, the patient remains confused. She is nonverbal. She opens her eyes spontaneously. She looks around. She grimaces and she withdraws to painful stimulation. Nevertheless, she does not initiate any conversation. She is not eating and she is unable to swallow. Meanwhile, hemodynamically, the patient is improved and the patient is currently off pressors for the past 24 hours. She remains on a bicarb infusion at a rate of 50 cc an hour. Hemoglobin stable at 7.3. Her procalcitonin level is dropped from 22 down to 3. Rest of the blood work shows a white cell count of 13.2 with a hemoglobin of 7.3 and a platelet count of 119. Sodium is at 140, potassium is at 2.8 that is to be replaced with a BUN of 24 and creatinine 1.1. Serum bicarb is at 18. The patient remains on IV Zosyn. Rest of the medication remains unchanged. Remains on stress dose hydrocortisone. Noted hemodynamically, the patient is off pressors. Limited echocardiogram was ordered to reevaluate LV function and the patient ejection fraction is currently in the order of 20 to 25% and the patient has severe impairment of the LV function. Carotid Dopplers were also performed and the patient was found to have known left internal carotid artery occlusion and moderate 50 to 69% occlusion in the right ICA. Objective - Vital Signs Vital signs: Vital Signs Temp 98.5 F 09/15/24 04:00 Pulse 92 09/15/24 07:48 Resp 22 09/15/24 07:48 BP 116/47 09/15/24 07:00 Pulse Ox 99 09/15/24 07:00 FiO2 1 09/10/24 00:00 Intake & Output 09/14/24 09/15/24 09/15/24 18:59 06:59 18:59 Intake Total 1055.013 980 60 Output Total 730 775 60 Balance 325.013 205 0 Weight 53.7 kg Intake: IV 425 830 60 0.9 @ KVO 100 80 10 ACETAMINOPHEN IV (For NPO 100 ) 1,000 mg In Empty Bag 1 bag @ 400 mls/hr IVPB Q6HR PRN Rx#:[id number] Dextrose 5% in Water 1, 550 50 000 ml @ 50 mls/hr IV . Q23H [facility] with Sodium Bicarb (1 Meq/ml) 150 ml Rx#:[id number] Lactated Ringers 1,000 ml 225 @ 75 mls/hr IV .[id number] [facility] Rx#:[id number] Piperacillin-Tazobactam 3 200 .375 gm In Sodium Chloride 0.9% 100 ml @ 25 mls/hr IVPB Q8HR [facility] Rx# :[id number] Intake, IV Titration 630.013 150 Amount Cefepime 1 gm In Sodium 50 Chloride 0.9% 50 ml @ 12. 5 mls/hr IVPB Q12HR [facility] Rx#:[id number] Dextrose 5% in Water 1, 450 50 000 ml @ 50 mls/hr IV . Q23H [facility] with Sodium Bicarb (1 Meq/ml) 150 ml Rx#:[id number] Norepinephrine 8 mg In 30.013 Sodium Chloride 0.9% 250 ml @ 0.03 MCG/KG/MIN 2. 897 mls/hr IV .Q24H [facility] Rx#:[id number] Piperacillin-Tazobactam 3 100 100 .375 gm In Sodium Chloride 0.9% 100 ml @ 25 mls/hr IVPB Q8HR [facility] Rx# :[id number] Output: Urine 730 775 60 Other: Voiding Method Indwelling Catheter Indwelling Catheter # Bowel Movements 1 1 - Exam GENERAL: A 69-year-old female patient, alert and oriented x3, not in any acute distress. Well developed, well nourished. On room air oxygen HEENT: Pupils are round and equally reacting to light. EOMI. No scleral icterus. No conjunctival pallor. Normocephalic, atraumatic. No pharyngeal erythema. No thyromegaly. CARDIOVASCULAR: S1 and S2 present. No murmurs, rubs, or gallops. PULMONARY: Chest is clear to auscultation, no wheezing , no crackles. ABDOMEN: Soft, nondistended, normoactive bowel sounds. No palpable organomegaly. Suprapubic tenderness. Infante catheter in place MUSCULOSKELETAL: No joint swelling or deformity. EXTREMITIES: No cyanosis, clubbing. Swelling/minimal edema of the upper extremities bilaterally. Bilateral AKA with superficial wounds of the bilateral stumps with some purulent discharge in the base which looks dried. Mild tenderness in the right AKA stump distally NEUROLOGICAL: Gross neurological examination did not reveal any focal deficits. slightly confused and delirious, nonverbal SKIN: No rashes. no petechiae. - Labs CBC & Chem 7: 09/15/24 05:50 09/15/24 05:50 Labs: Abnormal Lab Results - Last 24 Hours (Table) 09/14/24 09/15/24 09/15/24 Range/Units 07:18 05:50 05:50 WBC 13.2 H (3.8-10.6) k/uL RBC 2.35 L (3.80-5.40) m/uL Hgb 7.3 L (11.4-16.0) gm/dL Hct 22.6 L (34.0-46.0) % RDW 17.0 H (11.5-15.5) % Plt Count 119 L (150-450) k/uL Neutrophils # 12.1 H (1.3-7.7) k/uL Lymphocytes # 0.7 L (1.0-4.8) k/uL Potassium 2.8 L (3.5-5.1) mmol/L Chloride 113 H (98-107) mmol/L Carbon Dioxide 18 L (22-30) mmol/L BUN 24 H (7-17) mg/dL Creatinine 1.16 H (0.52-1.04) mg/dL Glucose 139 H (74-99) mg/dL Calcium 7.0 L (8.4-10.2) mg/dL Procalcitonin 3.18 H (0.02-0.50) ng/mL Microbiology - Last 24 Hours (Table) 09/10/24 11:05 Anaerobic Culture - Final Leg - Right 09/11/24 05:44 Blood Culture - Preliminary Blood Assessment and Plan Plan: Septic shock secondary to infection/dehiscence of a left above-knee surgical wound and right above knee surgical wound. The patient has positive gram- negative septicemia with blood cultures being positive for Klebsiella pneumoniae and E. coli on 09/08/2024. Currently off pressors and the patient is hemodynamically stable and the patient has been off pressors for the past 24 hours Bilateral surgical stump dehiscence for above-knee amputation, status post debridement with cultures being positive for strep group B and Serratia and E. coli on the left and Klebsiella pneumonia with strep group B and E. coli on the right. Surgical debridement has been performed on 09/10/2024 and wound VAC has been applied. Suspicion for osteomyelitis on the right. Vascular surgery is on the case. Hypotension secondary to sepsis, remains on pressors and broad-spectrum antibiotics with IV cefepime, currently off pressors CHF with impaired LV function with an ejection fraction of 30 to 35%, repeat limited echocardiogram showed an ejection fraction of 20 to 25% from 09/14/2024 Altered mentation/metabolic encephalopathy/delirium. 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 COPD maintained on a combination of Advair and Incruse on outpatient basis Coronary artery disease with previous stent placement in the mid LAD in October 2023 History of right-sided pleural effusion with a previous thoracentesis on the right, exudate with negative cytology Severe peripheral vascular disease as revealed on the previous CTA of the aorta with runoff and the patient has bilateral above-knee amputations Chronic and ongoing tobacco smoking History of CVA Suspect relative adrenal insufficiency, currently on stress dose hydrocortisone Hypothyroidism currently on Synthroid Transaminitis: Improved Elevated troponins MARCY likely secondary to hypotension, resolved Subclinical hypothyroidism History of hypertension History of hyperlipidemia Delirium, will monitor. Likely secondary underlying sepsis. Non-anion gap metabolic acidosis Plan: Currently on room air oxygen Remains confused and encephalopathic Unable to swallow Consider NG tube insertion for feeding and medication Continue bicarb infusion at a rate of 50 cc an hour for the next 24 hours. Serum bicarb level is improving Currently off pressors Continue continue Solu-Cortef 50 mg IV every 6 hours Continue Synthroid 75 mcg daily Continue midodrined Continue cefepime Repeat procalcitonin level is improving Continue to follow Critical care evaluation that was done more than 30 minutes. Time with Patient: Greater than 30
[2024-09-15] MEDS: PIPERACILLIN-TAZOBACTAM 3.375 GM in SODIUM CHLORIDE 0.9% 100 ML IVPB SCH (12:02)
--- NOTE | 2024-09-15 13:16 | P.PN ---
Subjective Progress Note Date: 09/15/24 Patient is seen and examined today as a follow-up. She remains in the ICU. Patient basically is not answering any questions or engaging in any conversation. She will look at you when calling her name. She has wound vacs to bilateral AKA's debridement site. Objective - Vital Signs Vital signs: Vital Signs Temp 98.5 F 09/15/24 04:00 Pulse 92 09/15/24 07:48 Resp 22 09/15/24 07:48 BP 116/47 09/15/24 07:00 Pulse Ox 99 09/15/24 07:00 FiO2 1 09/10/24 00:00 Intake & Output 09/14/24 09/15/24 09/15/24 18:59 06:59 18:59 Intake Total 1055.013 980 60 Output Total 730 775 60 Balance 325.013 205 0 Weight 53.7 kg Intake: IV 425 830 60 0.9 @ KVO 100 80 10 ACETAMINOPHEN IV (For NPO 100 ) 1,000 mg In Empty Bag 1 bag @ 400 mls/hr IVPB Q6HR PRN Rx#:[id number] Dextrose 5% in Water 1, 550 50 000 ml @ 50 mls/hr IV . Q23H [facility] with Sodium Bicarb (1 Meq/ml) 150 ml Rx#:[id number] Lactated Ringers 1,000 ml 225 @ 75 mls/hr IV .[id number] [facility] Rx#:[id number] Piperacillin-Tazobactam 3 200 .375 gm In Sodium Chloride 0.9% 100 ml @ 25 mls/hr IVPB Q8HR [facility] Rx# :[id number] Intake, IV Titration 630.013 150 Amount Cefepime 1 gm In Sodium 50 Chloride 0.9% 50 ml @ 12. 5 mls/hr IVPB Q12HR [facility] Rx#:[id number] Dextrose 5% in Water 1, 450 50 000 ml @ 50 mls/hr IV . Q23H [facility] with Sodium Bicarb (1 Meq/ml) 150 ml Rx#:[id number] Norepinephrine 8 mg In 30.013 Sodium Chloride 0.9% 250 ml @ 0.03 MCG/KG/MIN 2. 897 mls/hr IV .Q24H [facility] Rx#:[id number] Piperacillin-Tazobactam 3 100 100 .375 gm In Sodium Chloride 0.9% 100 ml @ 25 mls/hr IVPB Q8HR [facility] Rx# :[id number] Output: Urine 730 775 60 Other: Voiding Method Indwelling Catheter Indwelling Catheter # Bowel Movements 1 1 - Exam General appearance: The patient is awake, patient is not oriented, nonverbal or engaging. HET: Head is normocephalic and atraumatic. Pupils are equal and reactive. Neck: Supple. Abdomen: Soft, nondistended. Extremities: Bilateral evggx-jul-fukn amputations warm to the touch with wound vacs in place with good suction. Neurological: Patient awake, nonverbal or engaging. - Labs CBC & Chem 7: 09/15/24 05:50 09/15/24 05:50 Labs: Abnormal Lab Results - Last 24 Hours (Table) 09/14/24 09/15/24 09/15/24 Range/Units 07:18 05:50 05:50 WBC 13.2 H (3.8-10.6) k/uL RBC 2.35 L (3.80-5.40) m/uL Hgb 7.3 L (11.4-16.0) gm/dL Hct 22.6 L (34.0-46.0) % RDW 17.0 H (11.5-15.5) % Plt Count 119 L (150-450) k/uL Neutrophils # 12.1 H (1.3-7.7) k/uL Lymphocytes # 0.7 L (1.0-4.8) k/uL Potassium 2.8 L (3.5-5.1) mmol/L Chloride 113 H (98-107) mmol/L Carbon Dioxide 18 L (22-30) mmol/L BUN 24 H (7-17) mg/dL Creatinine 1.16 H (0.52-1.04) mg/dL Glucose 139 H (74-99) mg/dL Calcium 7.0 L (8.4-10.2) mg/dL Procalcitonin 3.18 H (0.02-0.50) ng/mL Microbiology - Last 24 Hours (Table) 09/10/24 11:05 Anaerobic Culture - Final Leg - Right 09/11/24 05:44 Blood Culture - Preliminary Blood Assessment and Plan Assessment: 1. Postop day #4 for bilateral vioqb-zlo-skvh amputation wound debridement and wound VAC placement 2. Bilateral hombn-eow-wzxu amputation wound dehiscence 3. Altered mental status changes Plan: 1. Consult placed for wound care, continue with their recommendations for local wound care and outpatient wound care. 2. Wound VAC to bilateral AKA stumps. Change Saturday 3. Antibiotics per recommendations from infectious disease 4. Rest of medical management per ICU team/primary medical team Thank you for this consultation, we will sign off at this time. The impression and plan of care has been dictated as directed. I performed a history and examination of this patient, discussed the same with the dictator. I agree with the dictator's note ,documented as a scribe. Any additional findings or plans will be noted.
--- NOTE | 2024-09-16 00:59 | EEG ---
ELECTROENCEPHALOGRAM REPORT PREAMBLE: This is a 69-year-old female with altered mental status. She has not been following commands. No seizure-like activity. CURRENT MEDICATIONS: 1. Lipitor. 2. Symbicort. 3. Farxiga. 4. Heparin. 5. Zofran. 6. Protonix. 7. Zosyn. 8. MiraLAX. 9. Lyrica. 10.Brilinta. 11.Ultram. EEG FINDINGS: This is a 21-channel digital EEG recorded with video component, utilizing 10/20 international system with referential and bipolar montages. The recording starts and continues with presence of diffuse moderate to high amplitude 2 to 3 hertz delta activity intermixed with some theta at 4 hertz seen in bihemispheric region. Very frequent high-amplitude frontally predominant triphasic waves were seen throughout the study. The background does not seem to be reactive to eye opening or closing. Different stages of sleep were not seen. Photic stimulation or hyperventilation was not done. No definitive focal or generalized epileptiform activity was seen. IMPRESSION: Abnormal EEG due to background slowing of [id number]-pcrerr degree. This is suggestive of generalized cerebral dysfunction as can be seen with toxic metabolic encephalopathy or related to diffuse structural brain abnormality. Presence of very frequent triphasic waves is consistent with metabolic encephalopathy. Rule out hepatic encephalopathy. Clinical correlation is recommended. MMODL / IJN: [id number] /
[2024-09-16] MEDS ORDERED: ACETAMINOPHEN IV (For NPO) 1,000 MG in EMPTY BAG 1 BAG IVPB PRN (05:34)
[2024-09-16] MEDS: ACETAMINOPHEN IV (For NPO) 1,000 MG in EMPTY BAG 1 BAG IVPB PRN (05:35)
[2024-09-16] MEDS ORDERED: ACETAMINOPHEN IV (For NPO) 1,000 MG in EMPTY BAG 1 BAG IVPB SCH (06:00)
[2024-09-16 06:29] LABS: Anisocytosis Slight; Basophils % (A) 0 %; Eosinophils % (A) 0 %; Hypochromasia Moderate; Lymphocytes # (A) 0.6 k/uL (1.0-4.8); Lymphocytes % (A) 6 %; MCH 30.7 pg (25.0-35.0); MCHC 31.8 g/dL (31.0-37.0); MCV 96.6 fL (80.0-100.0); Mean Platelet Volume 8.8; Monocytes # (A) 0.4 k/uL (0-1.0); Monocytes % (A) 3 %; Neutrophils # (A) 9.8 k/uL (1.3-7.7); Neutrophils % (A) 90 %; Platelet Count 120 k/uL (150-450); RBC 1.98 m/uL (3.80-5.40); RDW 17.1 % (11.5-15.5); WBC 10.9 k/uL (3.8-10.6)
[2024-09-16 06:44] LABS: HCT 19.2 % (34.0-46.0); HGB 6.1 gm/dL (11.4-16.0)
[2024-09-16 06:53] LABS: African American GFR (CKD) 61 (>60 ml/min/1.73 sqM); Anion Gap 7 mmol/L; Blood Urea Nitrogen 22 mg/dL (7-17); Calcium 6.9 mg/dL (8.4-10.2); Carbon Dioxide 23 mmol/L (22-30); Chloride 113 mmol/L (98-107); Glucose 127 mg/dL (74-99); Non-African American GFR(CKD) 53 (>60 ml/min/1.73 sqM); Potassium 3.6 mmol/L (3.5-5.1); Sodium 143 mmol/L (137-145)
--- NOTE | 2024-09-16 08:30 | P.PN ---
Subjective This is a pleasant 69 years old female who was sent from [facility] for altered mental status. 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 Since 07/2024. Patient also states she vomited once earlier. Patient fully awake and oriented, can answer questions appropriately and follows command, she does not look in distress. On admission her blood pressure was on the low side 68/53 5 sh she need to be transferred to ICU for start pressors, currently her blood pressure is better 102/50. She is having fever 103 on admission. She denies chest pain or dyspnea no right upper quadrant abdominal pain. No reports of diarrhea. Urine looks dark in the Infante catheter. No dysuria for the patient. Labs reviewed she has unremarkable CBC, BMP and LFT. Urinalysis is highly suspicious for infection Urine culture is pending Abdominal ultrasound showing cholelithiasis with minimal cholecystic fluid with thickening of the adjacent gallbladder suspicious for acute cholecystitis, however clinically does not behave like inflamed gallbladder Femur x-ray showing right AKA stump with hazy ostomy margin suspicious for osteomyelitis by the left AKA showing sharp ostomy margins. Chest x-ray showed combination of COPD and chronic CHF. Patient currently treated with broad-spectrum antibiotics with cefepime and IV vancomycin. Patient also on Ringer lactate at 130 mL/h She is continued on aspirin and Brilinta. 1/2 Patient is up in bed getting breathing treatment fully awake and oriented Still complaining from suprapubic pain and tenderness, Infante catheter is in place and picking up her urine output, overnight her urine output was low so increase her fluid currently she is getting Ringer lactate at 150 mL/h also she is getting Levophed at 0.06. Her urine output this morning improved and currently 50-100. Overnight they tried to wean off Levophed and blood pressure dropped. They will try again this morning. Patient remains on antibiotics cefepime and IV vancomycin for her sepsis, several sources are suspected. Most likely the source is acute urinary tract infection I spoke with Dr. Rg this morning, he still suspect there is acute cholecystitis at the source of her sepsis and he recommended cholecystectomy but not currently because of her clinical condition and because she has been on Brilinta Also she has infected stump wounds in both legs and she is going for OR today especially on the right side however per vascular surgery it is unlikely to be the source of infection. Currently patient n.p.o. for the procedure 09/11 Patient remains awake and alert sitting up in bed. Mentation at baseline. Both AKA stumps are in a dressing after she underwent debridement yesterday, parents is more severe in these areas as patient explains. However patient still complains from suprapubic and RUQ tenderness today. No other new complaint. The patient She remains on IV vancomycin and cefepime and dual antiplatelet therapy with aspirin and Brilinta from home Her numbers are improving with WBC down 26, 18 and today 11.3, creatinine 1.1 on admission came back to 0.8 Hemoglobin also came down to 9.6 down to 7.4 but this is after debridement and will continue close monitoring and will transfuse if hemoglobin less than 7 Liver enzymes trending down as well Patient continue to need very close monitoring in the ICU with frequent rounding 09/14 I am resuming the care of the patient today Patient today remains in the ICU however she is very confused, looks mildly agitated and does not answer questions and follow commands. However her abdominal tenderness significantly improved, there is no suprapubic tenderness or RUQ tenderness And both AKA wounds are in dressing and looks. Patient evaluated by neurology service, ordered carotid Doppler showing with known left ICA stenosis and occlusion while right ICA is 50 to 69% occlusion Patient remains on broad-spectrum antibiotic,'s antibiotic switch from cefepime IV vancomycin to Zosyn. His leukocyte count worsened up to 21,000 09/15 Patient remains in the ICU She is still confused and drowsy, she is not answering questions or follows command Her abdomen looks soft with mild suprapubic tenderness Urinary catheter in place. Antibiotic no was adjusted to Zosyn, leukocytosis improved down to 13,000, which is improved Hemoglobin dropped to 7.3 will need close monitoring Patient remains on sodium bicarb drip at 50 mL/h 09/16 Patient is more awake and interactive, she is still somewhat lethargic but significantly improved compared to the last 2 days, she can tell me her name and when she reoriented about time place person she looks to remember. She does not have abdominal pain abdomen is soft Infante catheter in place Today she is developing diarrhea, C. difficile was checked was negative, lung nodule as needed is ordered however we will discontinue Colace patient she was taking. Patient also on Senokot-S as needed. She remains on Zosyn with looks working well for her with leukocytosis improving and mentation is improving Active Medications Generic Name Dose Route Start Last Admin Trade Name Freq PRN Reason Stop Dose Admin Aspirin 81 mg 09/08/24 21:00 09/15/24 19:48 Aspirin 81 Mg PO Not Given HS AMANDA Atorvastatin Calcium 80 mg 09/08/24 21:00 09/15/24 19:48 Atorvastatin 80 Mg Tab PO Not Given HS AMANDA Budesonide/Formoterol Fumarate 2 puff 09/08/24 19:00 09/15/24 21:03 Symbicort 80-4.5 Mcg Inhaler INHALATION Not Given RT-BID@0700,1900 AMANDA Dapagliflozin 10 mg 09/09/24 09:00 09/15/24 09:07 Dapagliflozin Propanediol 10 Mg Tablet PO Not Given DAILY AMANDA Heparin Sodium (Porcine) 5,000 unit 09/15/24 00:00 09/16/24 00:48 Heparin Sodium,Porcine 5,000 Unit/Ml 1 Ml Vial SQ 5,000 unit Q8HR AMANDA Administration Hydrocortisone Sodium Succinate 50 mg 09/13/24 12:00 09/16/24 07:03 Hydrocortisone Succinate 100 Mg/2 Ml Vial IV 50 mg Q6HR AMANDA Administration Sodium Bicarbonate 150 ml/ 1,150 mls @ 50 mls/hr 09/14/24 11:00 09/15/24 10:23 Dextrose/Water IV 50 mls/hr .Q23H AMANDA Administration Piperacillin Sod/Tazobactam 100 mls @ 25 mls/hr 09/15/24 12:00 09/16/24 05:00 Sod 3.375 gm/ Sodium Chloride IVPB 25 mls/hr Q8H AMANDA Administration Protocol Acetaminophen 1,000 mg/ IV 100 mls @ 400 mls/hr 09/16/24 05:35 09/16/24 05:35 Solution IVPB 09/17/24 06:00 400 mls/hr Q6HR PRN Administration Mild Pain or Fever > 100.5 Ibuprofen 400 mg 09/08/24 14:31 09/12/24 13:35 Ibuprofen 400 Mg Tab PO 400 mg Q6HR PRN Administration Mild Pain or Fever > 100.5 Ipratropium [place] 0.5 mg 09/09/24 08:00 09/15/24 21:03 Ipratropium 0.5 Mg/2.5 Ml Nebu INHALATION Not Given RT-QID [facility] Levothyroxine Sodium 75 mcg 09/13/24 09:45 09/16/24 06:55 Levothyroxine 75 Mcg Tab PO Not Given DAILY@0630 [facility] Loperamide HCl 2 mg 09/16/24 07:28 Loperamide 2 Mg Cap PO QID PRN Diarrhea Methocarbamol 750 mg 09/08/24 16:01 Methocarbamol 750 Mg Tab PO QID PRN Muscle Spasm Midodrine 10 mg 09/12/24 12:00 09/16/24 06:55 Midodrine 5 Mg Tab PO Not Given TID@0600,1200,1800 [facility] Mirtazapine 15 mg 09/08/24 21:00 09/15/24 19:49 Mirtazapine 15 Mg Tab PO Not Given [facility] Miscellaneous Information 1 each 09/15/24 07:56 Potassium Replacement Protocol 1 Each Misc MISCELLANE DAILY PRN Per Protocol Protocol Naloxone HCl 0.2 mg 09/08/24 14:31 Naloxone 0.4 Mg/Ml 1 Ml Vial IV Q2M PRN Opioid Reversal Ondansetron HCl 4 mg 09/09/24 09:38 09/13/24 17:54 Ondansetron 4 Mg/2 Ml Vial IVP 4 mg Q6HR PRN Administration Nausea And Vomiting Pantoprazole Sodium 40 mg 09/09/24 09:00 09/15/24 09:12 Pantoprazole 40 Mg Tablet PO Not Given DAILY [facility] Polyethylene Glycol 17 gm 09/08/24 16:01 Polyethylene Glycol 3350 17 Gm Powd.Pack PO DAILY PRN Constipation Pregabalin 50 mg 09/12/24 16:00 09/15/24 19:49 Pregabalin 50 Mg Cap PO Not Given TID [facility] Prochlorperazine Maleate 5 mg 09/13/24 15:21 09/13/24 16:32 Prochlorperazine 5 Mg Tab PO 5 mg Q8HR PRN Administration Nausea And Vomiting Sacubitril/Valsartan 1 each 09/08/24 21:00 09/15/24 19:49 Sacubitril/Valsartan 24 Mg-26 Mg Tablet PO Not Given BID [facility] Senna 8.6 mg 09/08/24 16:01 Sennosides 8.6 Mg Tab PO Q12H PRN Constipation Ticagrelor 90 mg 12/31/24 21:00 09/15/24 19:49 Ticagrelor 90 Mg Tab PO Not Given BID AMANDA Tramadol HCl 50 mg 09/08/24 16:01 09/11/24 13:46 Tramadol 50 Mg Tab PO 50 mg Q6H PRN Administration Pain Objective - Vital Signs Vital signs: Vital Signs Temp 97.6 F 09/16/24 04:00 Pulse 100 09/16/24 04:00 Resp 12 09/16/24 04:00 BP 117/74 09/16/24 04:00 Pulse Ox 96 09/16/24 04:00 FiO2 1 09/10/24 00:00 Intake & Output 09/15/24 09/16/24 09/16/24 18:59 06:59 18:59 Intake Total 790 1020 Output Total 475 325 Balance 315 695 Weight 53.7 kg 52.2 kg Intake: IV 690 1020 0.9 @ KVO 90 120 Dextrose 5% in Water 1, 600 800 000 ml @ 50 mls/hr IV . Q23H AMANDA with Sodium Bicarb (1 Meq/ml) 150 ml Rx#:[id number] Piperacillin-Tazobactam 3 100 .375 gm In Sodium Chloride 0.9% 100 ml @ 25 mls/hr IVPB Q8HR AMANDA Rx# :[id number] Intake, IV Titration 100 Amount Potassium Chloride 20 meq 100 In Water For Injection 1 100ml.bag @ 50 mls/hr IVPB Q2H AMANDA Rx#: [id number] Output: Urine 475 325 Other: Voiding Method Indwelling Catheter Indwelling Catheter # Bowel Movements 1 - Exam -GENERAL: The patient isAwake but confused, not in any acute distress. Well developed, well nourished. HEENT: Pupils are round and equally reacting to light. EOMI. No scleral icterus. No conjunctival pallor. Normocephalic, atraumatic. No pharyngeal erythema. No thyromegaly. CARDIOVASCULAR: S1 and S2 present. No murmurs, rubs, or gallops. PULMONARY: Chest is clear to auscultation, no wheezing , no crackles. -ABDOMEN: Soft, nondistended, normoactive bowel sounds. No palpable organomegaly. Suprapubic tenderness improved. Infante catheter in place MUSCULOSKELETAL: No joint swelling or deformity. -EXTREMITIES: No cyanosis, clubbing, or pedal edema. Bilateral AKA with superficial wounds of the bilateral stumps with dressing in place after debridement on 09/10 NEUROLOGICAL: Gross neurological examination did not reveal any focal deficits. SKIN: No rashes. no petechiae. - Labs CBC & Chem 7: 09/16/24 05:35 09/16/24 05:35 Labs: Abnormal Lab Results - Last 24 Hours (Table) 09/15/24 09/16/24 09/16/24 Range/Units 17:05 05:35 05:35 WBC 10.9 H (3.8-10.6) k/uL RBC 1.98 L (3.80-5.40) m/uL Hgb 6.1 L* (11.4-16.0) gm/dL Hct 19.2 L* (34.0-46.0) % RDW 17.1 H (11.5-15.5) % Plt Count 120 L (150-450) k/uL Neutrophils # 9.8 H (1.3-7.7) k/uL Lymphocytes # 0.6 L (1.0-4.8) k/uL Potassium 3.4 L (3.5-5.1) mmol/L Chloride 113 H (98-107) mmol/L BUN 22 H (7-17) mg/dL Creatinine 1.07 H (0.52-1.04) mg/dL Glucose 127 H (74-99) mg/dL Calcium 6.9 L (8.4-10.2) mg/dL Microbiology - Last 24 Hours (Table) 09/11/24 05:44 Blood Culture Gram Stain - Preliminary Blood Blood Culture - Preliminary Assessment and Plan Assessment: Cellulitis and infections of bilateral AKA stumps, there is suspicion of os teomyelitis at the distal margins of the right stump per x-ray. Status post I&D by vascular surgery on 09/10 Acute urinary tract infection with suprapubic tenderness. Urine cultures pending Gallbladder disease with gallstones, but there is suspicion of acute cholecystitis Severe sepsis/septic shock, present on admission, improving Peripheral artery disease Plan: continue with broad-spectrum antibiotics, currently on Zosyn Continue sodium bicarb No need for pressors Continu dual antiplatelet therapy S/p 09/10/24 for I&D of the AKA stumps Several consultants on the case including pulmonary/critical, vascular surgery and ID team General Surgery also seen the patient Labs and medication were reviewed.. Continue same treatment. Continue with symptomatic treatment. Resume home medication. Monitor labs and vitals. DVT and GI prophylaxis. Further recommendations as per clinical course of the patient DVT prophylaxis: On dual antiplatelet therapy GI Prophylaxis: Protonix Prognosis is guarded
[2024-09-16] MEDS: PANTOPRAZOLE 40 MG/10 ML VIAL IVP SCH (09:11)
[2024-09-16] MEDS: LOPERAMIDE 2 MG CAP PO STA (09:12)
--- NOTE | 2024-09-16 10:28 | P.PN ---
Subjective Progress Note Date: 09/16/24 On 09/14/2023, this 69-year-old female patient is being seen for a follow-up in the intensive care unit where she was hospitalized for cellulitis and secondary septicemia. The patient is known to have coronary artery disease, hypertension, hyperlipidemia, and previous right above-knee amputation and subsequent left above-knee amputation. The patient's blood cultures were positive for E. coli and Klebsiella at the time of admission and the patient was quite septic. She stands. EGD and debridement completed and she is was seen by vascular surgery osteomyelitis of her right femur and the patient underwent surgical debridement of the bilateral above-knee amputation wounds and wound VAC was placed on both sides. The patient did have wound dehiscence bilaterally. The x-ray of the right femur showed haziness in the right stump suspicious for osteomyelitis. Left side was essentially within normal limits. The wound cultures from the left were positive for strep group B, Serratia marcescens and E. coli in the cultures from the right were positive for E. coli and strep group B. Based on this, the patient was given broad-spectrum antibiotics and the patient is currently on IV cefepime. Hemodynamically, the patient is still requiring low- dose pressors. She remains on lactated Ringer at rate of 20 cc an hour. She is also on midodrine 10 mg p.o. 3 times daily. She was also started on hyd rocortisone due to concerns of adrenal sufficiency. Serum cortisol at baseline was 10.6. Blood work from today shows a WBC count of 12.8 with hemoglobin 10.3 and a platelet count of 183. BUN is 17 with a creatinine of 0.89 and sodium levels at 136 and a potassium level is at 4.2. LFTs have been downtrending with an AST of 84, ALT of 52 and alkaline phosphatase elevated at 490, probably related to underlying osteomyelitis. Procalcitonin level was 22.7 at the time of admission. TSH was at 7.3 at time of admission and the patient is currently on levothyroxine 75 mcg p.o. daily. Her most recent echocardiogram from October 2023 showed impaired LV function with an ejection fraction of 30 to 35% along with mild pulmonary hypertension. She is currently on 2 L of oxygen by nasal cannula. She is on LR at 75 cc / hr. She is on Ne at 0.01 mc/kg/min. On 09/15/2024, the patient remains confused. She is nonverbal. She opens her eyes spontaneously. She looks around. She grimaces and she withdraws to painful stimulation. Nevertheless, she does not initiate any conversation. She is not eating and she is unable to swallow. Meanwhile, hemodynamically, the patient is improved and the patient is currently off pressors for the past 24 hours. She remains on a bicarb infusion at a rate of 50 cc an hour. Hemoglobin stable at 7.3. Her procalcitonin level is dropped from 22 down to 3. Rest of the blood work shows a white cell count of 13.2 with a hemoglobin of 7.3 and a platelet count of 119. Sodium is at 140, potassium is at 2.8 that is to be replaced with a BUN of 24 and creatinine 1.1. Serum bicarb is at 18. The patient remains on IV Zosyn. Rest of the medication remains unchanged. Remains on stress dose hydrocortisone. Noted hemodynamically, the patient is off pressors. Limited echocardiogram was ordered to reevaluate LV function and the patient ejection fraction is currently in the order of 20 to 25% and the patient has severe impairment of the LV function. Carotid Dopplers were also performed and the patient was found to have known left internal carotid artery occlusion and moderate 50 to 69% occlusion in the right ICA. 09/16/2024, the patient is being seen for a follow-up. This morning, the patient is awake alert and communicating. No confusion. No altered mentation. There has been significant improvement in mentation over the past 24 hours. Hemod ynamically stable. Remains on the same antibiotic coverage and the patient remains on IV Zosyn. Afebrile. No pressors for now. The white cell count of 10.9 with a hemoglobin 6.1 and the patient will need a unit of packed RBC. BUN is 22 with a creatinine of 1.07 and a sodium levels at 143. The patient is also on a bicarb infusion and serum bicarb is up to 23 and this will be further discontinued. She is currently on room air oxygen. Afebrile. Hemodynamically stable. Objective - Vital Signs Vital signs: Vital Signs Temp 96.7 F L 09/16/24 08:00 Pulse 105 H 09/16/24 08:00 Resp 24 09/16/24 08:00 BP 136/65 09/16/24 08:00 Pulse Ox 96 09/16/24 08:00 FiO2 1 09/10/24 00:00 Intake & Output 09/15/24 09/16/24 09/16/24 18:59 06:59 18:59 Intake Total 790 1020 Output Total 475 325 Balance 315 695 Weight 53.7 kg 52.2 kg Intake: IV 690 1020 0.9 @ KVO 90 120 Dextrose 5% in Water 1, 600 800 000 ml @ 50 mls/hr IV . Q23H AMANDA with Sodium Bicarb (1 Meq/ml) 150 ml Rx#:[id number] Piperacillin-Tazobactam 3 100 .375 gm In Sodium Chloride 0.9% 100 ml @ 25 mls/hr IVPB Q8HR AMANDA Rx# :[id number] Intake, IV Titration 100 Amount Potassium Chloride 20 meq 100 In Water For Injection 1 100ml.bag @ 50 mls/hr IVPB Q2H AMANDA Rx#: [id number] Output: Urine 475 325 Other: Voiding Method Indwelling Catheter Indwelling Catheter # Bowel Movements 1 - Exam GENERAL: A 69-year-old female patient, alert and oriented x3, not in any acute distress. Well developed, well nourished. On room air oxygen HEENT: Pupils are round and equally reacting to light. EOMI. No scleral icterus. No conjunctival pallor. Normocephalic, atraumatic. No pharyngeal erythema. No thyromegaly. CARDIOVASCULAR: S1 and S2 present. No murmurs, rubs, or gallops. PULMONARY: Chest is clear to auscultation, no wheezing , no crackles. ABDOMEN: Soft, nondistended, normoactive bowel sounds. No palpable organomegaly. Suprapubic tenderness. Infante catheter in place MUSCULOSKELETAL: No joint swelling or deformity. EXTREMITIES: No cyanosis, clubbing. Swelling/minimal edema of the upper extremities bilaterally. Bilateral AKA with superficial wounds of the bilateral stumps with some purulent discharge in the base which looks dried. Mild tenderness in the right AKA stump distally NEUROLOGICAL: Awake and alert and communicating SKIN: No rashes. no petechiae. - Labs CBC & Chem 7: 09/16/24 05:35 09/16/24 05:35 Labs: Abnormal Lab Results - Last 24 Hours (Table) 09/15/24 09/16/2409/16/25 Range/Units 17:05 05:35 05:35 WBC 10.9 H (3.8-10.6) k/uL RBC 1.98 L (3.80-5.40) m/uL Hgb 6.1 L* (11.4-16.0) gm/dL Hct 19.2 L* (34.0-46.0) % RDW 17.1 H (11.5-15.5) % Plt Count 120 L (150-450) k/uL Neutrophils # 9.8 H (1.3-7.7) k/uL Lymphocytes # 0.6 L (1.0-4.8) k/uL Potassium 3.4 L (3.5-5.1) mmol/L Chloride 113 H (98-107) mmol/L BUN 22 H (7-17) mg/dL Creatinine 1.07 H (0.52-1.04) mg/dL Glucose 127 H (74-99) mg/dL Calcium 6.9 L (8.4-10.2) mg/dL Crossmatch 09/16/24 Range/Units 07:44 WBC (3.8-10.6) k/uL RBC (3.80-5.40) m/uL Hgb (11.4-16.0) gm/dL Hct (34.0-46.0) % RDW (11.5-15.5) % Plt Count (150-450) k/uL Neutrophils # (1.3-7.7) k/uL Lymphocytes # (1.0-4.8) k/uL Potassium (3.5-5.1) mmol/L Chloride (98-107) mmol/L BUN (7-17) mg/dL Creatinine (0.52-1.04) mg/dL Glucose (74-99) mg/dL Calcium (8.4-10.2) mg/dL Crossmatch See Detail Microbiology - Last 24 Hours (Table) 09/11/24 05:44 Blood Culture Gram Stain - Preliminary Blood Blood Culture - Preliminary Assessment and Plan Plan: Septic shock secondary to infection/dehiscence of a left above-knee surgical wound and right above knee surgical wound. The patient has positive gram- negative septicemia with blood cultures being positive for Klebsiella pneumoniae and E. coli on 09/08/2024. Currently off pressors and the patient is hemodynamically stable and the patient has been off pressors for the past 48 hours Bilateral surgical stump dehiscence for above-knee amputation, status post debridement with cultures being positive for strep group B and Serratia and E. coli on the left and Klebsiella pneumonia with strep group B and E. coli on the right. Surgical debridement has been performed on 09/10/2024 and wound VAC has been applied. Suspicion for osteomyelitis on the right. Vascular surgery is on the case. Hypotension secondary to sepsis, remains on pressors and broad-spectrum antibiotics with IV cefepime, currently off pressors CHF with impaired LV function with an ejection fraction of 30 to 35%, repeat limited echocardiogram showed an ejection fraction of 20 to 25% from 09/14/2024 Altered mentation/metabolic encephalopathy/delirium. 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 COPD maintained on a combination of Advair and Incruse on outpatient basis Coronary artery disease with previous stent placement in the mid LAD in October 2023 History of right-sided pleural effusion with a previous thoracentesis on the right, exudate with negative cytology Severe peripheral vascular disease as revealed on the previous CTA of the aorta with runoff and the patient has bilateral above-knee amputations Chronic and ongoing tobacco smoking History of CVA Suspect relative adrenal insufficiency, currently on stress dose hydrocortisone Hypothyroidism currently on Synthroid Transaminitis: Improved Elevated troponins MARCY likely secondary to hypotension, resolved Subclinical hypothyroidism History of hypertension History of hyperlipidemia Delirium, recovered and the mental status is back to normal Non-anion gap metabolic acidosis, recovered Plan: Currently on room air oxygen Normal mentation Able to swallow Proceed with diet Discontinue the bicarb infusion Currently off pressors Discontinue the hydrocortisone stress dose Continue Synthroid 75 mcg daily Continue midodrined Continue cefepime Repeat procalcitonin level is improving Continue to follow Critical care evaluation that was done more than 30 minutes. Time with Patient: Greater than 30
--- NOTE | 2024-09-16 11:35 | P.PN ---
Subjective Progress Note Date: 09/15/24 Patient was seen for follow-up. Patient is much more alert and awake, less encephalopathic, but still mute. Patient currently receiving Zosyn IV. Offers no complaints. Objective - Vital Signs Vital signs: Vital Signs Temp 97.2 F L 09/15/24 12:00 Pulse 93 09/15/24 14:00 Resp 29 H 09/15/24 14:00 BP 118/50 09/15/24 14:00 Pulse Ox 99 09/15/24 14:00 FiO2 1 09/10/24 00:00 Intake & Output 09/14/24 09/15/24 09/15/24 18:59 06:59 18:59 Intake Total 1055.013 980 520 Output Total 730 775 265 Balance 325.013 205 255 Weight 53.7 kg 53.7 kg Intake: IV 425 830 420 0.9 @ KVO 100 80 70 ACETAMINOPHEN IV (For NPO 100 ) 1,000 mg In Empty Bag 1 bag @ 400 mls/hr IVPB Q6HR PRN Rx#:[id number] Dextrose 5% in Water 1, 550 350 000 ml @ 50 mls/hr IV . Q23H [facility] with Sodium Bicarb (1 Meq/ml) 150 ml Rx#:[id number] Lactated Ringers 1,000 ml 225 @ 75 mls/hr IV .[id number] [facility] Rx#:[id number] Piperacillin-Tazobactam 3 200 .375 gm In Sodium Chloride 0.9% 100 ml @ 25 mls/hr IVPB Q8HR [facility] Rx# :[id number] Intake, IV Titration 630.013 150 100 Amount Cefepime 1 gm In Sodium 50 Chloride 0.9% 50 ml @ 12. 5 mls/hr IVPB Q12HR [facility] Rx#:[id number] Dextrose 5% in Water 1, 450 50 000 ml @ 50 mls/hr IV . Q23H [facility] with Sodium Bicarb (1 Meq/ml) 150 ml Rx#:[id number] Norepinephrine 8 mg In 30.013 Sodium Chloride 0.9% 250 ml @ 0.03 MCG/KG/MIN 2. 897 mls/hr IV .Q24H [facility] Rx#:[id number] Piperacillin-Tazobactam 3 100 100 .375 gm In Sodium Chloride 0.9% 100 ml @ 25 mls/hr IVPB Q8HR [facility] Rx# :[id number] Potassium Chloride 20 meq 100 In Water For Injection 1 100ml.bag @ 50 mls/hr IVPB Q2H [facility] Rx#: [id number] Output: Urine 730 775 265 Other: Voiding Method Indwelling Catheter Indwelling Catheter Indwelling Catheter # Bowel Movements 1 1 - Exam Patient is much more alert and awake, less encephalopathic, makes eye contact. Still does not speak any word, mute. Patient still appears somewhat delirious. - Labs CBC & Chem 7: 09/16/24 05:35 09/16/24 05:35 Labs: Abnormal Lab Results - Last 24 Hours (Table) 09/14/24 09/15/24 09/15/24 Range/Units 07:18 05:50 05:50 WBC 13.2 H (3.8-10.6) k/uL RBC 2.35 L (3.80-5.40) m/uL Hgb 7.3 L (11.4-16.0) gm/dL Hct 22.6 L (34.0-46.0) % RDW 17.0 H (11.5-15.5) % Plt Count 119 L (150-450) k/uL Neutrophils # 12.1 H (1.3-7.7) k/uL Lymphocytes # 0.7 L (1.0-4.8) k/uL Potassium 2.8 L (3.5-5.1) mmol/L Chloride 113 H (98-107) mmol/L Carbon Dioxide 18 L (22-30) mmol/L BUN 24 H (7-17) mg/dL Creatinine 1.16 H (0.52-1.04) mg/dL Glucose 139 H (74-99) mg/dL Calcium 7.0 L (8.4-10.2) mg/dL Procalcitonin 3.18 H (0.02-0.50) ng/mL Microbiology - Last 24 Hours (Table) 09/11/24 05:44 Blood Culture Gram Stain - Preliminary Blood Blood Culture - Preliminary 09/10/24 11:05 Anaerobic Culture - Final Leg - Right Assessment and Plan Assessment: Altered mental status, likely due to toxic metabolic encephalopathy. Probable septic encephalopathy. History of bilateral AKA Septic shock secondary to infection/dehiscence of the left above-knee surgical wound and right above-knee surgical wound. Gram-negative septicemia Hypotension secondary to sepsis CHF with low EF 30 to 35% COPD History of chronic left ICA occlusion, right ICA 70% stenosis in 2018. CAD Severe peripheral vascular disease Chronic tobacco use Hypothyroidism Elevated troponins MARCY secondary to hypotension, resolved Hypertension Hyperlipidemia Plan: * CT head revealed no acute process. * EEG was abnormal due to background slowing of moderate to severe degree. This is suggestive of generalized cerebral dysfunction as can be seen with toxic metabolic encephalopathy related to diffuse structural brain abnormality. P resence of very frequent triphasic waves is consistent with metabolic encephalopathy. Rule out hepatic encephalopathy. When compared to the EEG from 08/01/2024, the background slowing due to encephalopathy and triphasic waves are much these triphasic waves were seen very sporadically in the prior study, but almost continuous in the current study. * Ammonia < 9 * Carotid Doppler revealed known left ICA occlusion. Measurements suggest a moderate (50 to 69%) right ICA stenosis. Antegrade flow in both vertebral arteries. * Patient currently on aspirin 81 mg, Brilinta 90 mg twice daily and Lipitor 80 mg. * Patient currently on Zosyn, midodrine, Remeron. * Avoid hypotension. * Other medical management as per IM and other specialties on board.
--- NOTE | 2024-09-16 12:58 | P.PN ---
Subjective Progress Note Date: 09/15/24 CHIEF COMPLAINT: Cholecystitis HISTORY OF PRESENT ILLNESS: The patient is a 69-year-old female in intensive care unit being followed for cholecystitis. At this time, she is undergoing EEG. No reports of abdominal pain. ROS: No fevers or chills. No nausea and vomiting. PHYSICAL EXAM: VITAL SIGNS: Reviewed CONSTITUTIONAL: Well developed and in no acute distress. EYES: Conjuctivae without sclera icterus. Extraocular movements grossly intact. HEAD, EARS, NOSE, THROAT: Moist buccal mucosa. Head is atraumatic, normocephalic. Hears conversational speech. No nasal drainage. RESPIRATORY: Non-labored respirations and equal bilateral excursions. CARDIOVASCULAR: Palpable 2+ radial pulses. ABDOMEN: NO Peritonitis. MUSCULOSKELETAL: Bilateral dntkw-rgm-otwr amputations. SKIN: Good skin turgor. Well perfused. NEUROLOGIC: Cranial nerves II through XII grossly intact. No focal or lateralizing signs. PSYCH: Appropriate affect. Alert and oriented to person CLINICAL LABS: Reviewed. WBC is trending downward from 21,000 to 13,000. Hemoglobin trending downward 10.5-7.3 without any obvious signs of bleeding ASSESSMENT: 1. Chronic cholecystitis 2. Leukocytosis 3. Anemia 4. Acute kidney injury 5. Bilateral iqpwa-aso-yani amputations 6. Morbid obesity, BMI 36.1 PLAN: 1. Patient has declining trend of hemoglobin 10.5-7.3 of unknown etiology. 2. Otherwise, patient is clinically asymptomatic from cholecystitis. Continue antibiotics. 3. Will sign off. Please reconsult if needed Objective - Vital Signs Vital signs: Vital Signs Temp 97.1 F L 09/16/24 12:37 Pulse 87 09/16/24 12:37 Resp 26 H 09/16/24 12:37 BP 138/62 09/16/24 12:37 Pulse Ox 95 09/16/24 12:37 FiO2 1 09/10/24 00:00 Intake & Output 09/15/24 09/16/24 09/16/24 18:59 06:59 18:59 Intake Total 790 1020 0 Output Total 475 325 Balance 315 695 0 Weight 53.7 kg 52.2 kg 52.2 kg Intake: IV 690 1020 0.9 @ KVO 90 120 Dextrose 5% in Water 1, 600 800 000 ml @ 50 mls/hr IV . Q23H [facility] with Sodium Bicarb (1 Meq/ml) 150 ml Rx#:[id number] Piperacillin-Tazobactam 3 100 .375 gm In Sodium Chloride 0.9% 100 ml @ 25 mls/hr IVPB Q8HR [facility] Rx# :[id number] Intake, IV Titration 100 Amount Potassium Chloride 20 meq 100 In Water For Injection 1 100ml.bag @ 50 mls/hr IVPB Q2H [facility] Rx#: [id number] Blood Product 0 Unit 0 Output: Urine 475 325 Other: Voiding Method Indwelling Catheter Indwelling Catheter Indwelling Catheter # Bowel Movements 1 - Labs CBC & Chem 7: 09/16/24 05:35 09/16/24 05:35 Labs: Abnormal Lab Results - Last 24 Hours (Table) 09/15/24 09/16/24 09/16/24 Range/Units 17:05 05:35 05:35 WBC 10.9 H (3.8-10.6) k/uL RBC 1.98 L (3.80-5.40) m/uL Hgb 6.1 L* (11.4-16.0) gm/dL Hct 19.2 L* (34.0-46.0) % RDW 17.1 H (11.5-15.5) % Plt Count 120 L (150-450) k/uL Neutrophils # 9.8 H (1.3-7.7) k/uL Lymphocytes # 0.6 L (1.0-4.8) k/uL Potassium 3.4 L (3.5-5.1) mmol/L Chloride 113 H (98-107) mmol/L BUN 22 H (7-17) mg/dL Creatinine 1.07 H (0.52-1.04) mg/dL Glucose 127 H (74-99) mg/dL Calcium 6.9 L (8.4-10.2) mg/dL Crossmatch 09/16/24 Range/Units 07:44 WBC (3.8-10.6) k/uL RBC (3.80-5.40) m/uL Hgb (11.4-16.0) gm/dL Hct (34.0-46.0) % RDW (11.5-15.5) % Plt Count (150-450) k/uL Neutrophils # (1.3-7.7) k/uL Lymphocytes # (1.0-4.8) k/uL Potassium (3.5-5.1) mmol/L Chloride (98-107) mmol/L BUN (7-17) mg/dL Creatinine (0.52-1.04) mg/dL Glucose (74-99) mg/dL Calcium (8.4-10.2) mg/dL Crossmatch See Detail Microbiology - Last 24 Hours (Table) 09/11/24 05:44 Blood Culture Gram Stain - Preliminary Blood Blood Culture - Preliminary
[2024-09-16 16:32] LABS: Anisocytosis Slight; HCT 25.8 % (34.0-46.0); MCH 29.6 pg (25.0-35.0); MCHC 32.3 g/dL (31.0-37.0); MCV 91.7 fL (80.0-100.0); Platelet Count 131 k/uL (150-450); Poikilocytosis Slight; RBC 2.81 m/uL (3.80-5.40); RDW 17.2 % (11.5-15.5); WBC 11.9 k/uL (3.8-10.6)
[2024-09-16 16:44] LABS: HGB 8.3 gm/dL (11.4-16.0)
[2024-09-16] MEDS: CHOLESTYRAMINE (WITH SUGAR) 4 GM PACKET PO SCH (17:37)
[2024-09-16] MEDS: METOCLOPRAMIDE 5 MG/ML 2 ML VIAL IVP STA (21:26)
[2024-09-16] MEDS: FUROSEMIDE 10 MG/ML 2 ML VIAL IV ONE (21:50)
--- NOTE | 2024-09-17 08:06 | P.PN ---
Subjective This is a pleasant 69 years old female who was sent from [facility] for altered mental status. 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 Since 07/2024. Patient also states she vomited once earlier. Patient fully awake and oriented, can answer questions appropriately and follows command, she does not look in distress. On admission her blood pressure was on the low side 68/53 5 sh she need to be transferred to ICU for start pressors, currently her blood pressure is better 102/50. She is having fever 103 on admission. She denies chest pain or dyspnea no right upper quadrant abdominal pain. No reports of diarrhea. Urine looks dark in the Infante catheter. No dysuria for the patient. Labs reviewed she has unremarkable CBC, BMP and LFT. Urinalysis is highly suspicious for infection Urine culture is pending Abdominal ultrasound showing cholelithiasis with minimal cholecystic fluid with thickening of the adjacent gallbladder suspicious for acute cholecystitis, however clinically does not behave like inflamed gallbladder Femur x-ray showing right AKA stump with hazy ostomy margin suspicious for osteomyelitis by the left AKA showing sharp ostomy margins. Chest x-ray showed combination of COPD and chronic CHF. Patient currently treated with broad-spectrum antibiotics with cefepime and IV vancomycin. Patient also on Ringer lactate at 130 mL/h She is continued on aspirin and Brilinta. 1/2 Patient is up in bed getting breathing treatment fully awake and oriented Still complaining from suprapubic pain and tenderness, Infante catheter is in place and picking up her urine output, overnight her urine output was low so increase her fluid currently she is getting Ringer lactate at 150 mL/h also she is getting Levophed at 0.06. Her urine output this morning improved and currently 50-100. Overnight they tried to wean off Levophed and blood pressure dropped. They will try again this morning. Patient remains on antibiotics cefepime and IV vancomycin for her sepsis, several sources are suspected. Most likely the source is acute urinary tract infection I spoke with Dr. Rg this morning, he still suspect there is acute cholecystitis at the source of her sepsis and he recommended cholecystectomy but not currently because of her clinical condition and because she has been on Brilinta Also she has infected stump wounds in both legs and she is going for OR today especially on the right side however per vascular surgery it is unlikely to be the source of infection. Currently patient n.p.o. for the procedure 09/11 Patient remains awake and alert sitting up in bed. Mentation at baseline. Both AKA stumps are in a dressing after she underwent debridement yesterday, parents is more severe in these areas as patient explains. However patient still complains from suprapubic and RUQ tenderness today. No other new complaint. The patient She remains on IV vancomycin and cefepime and dual antiplatelet therapy with aspirin and Brilinta from home Her numbers are improving with WBC down 26, 18 and today 11.3, creatinine 1.1 on admission came back to 0.8 Hemoglobin also came down to 9.6 down to 7.4 but this is after debridement and will continue close monitoring and will transfuse if hemoglobin less than 7 Liver enzymes trending down as well Patient continue to need very close monitoring in the ICU with frequent rounding 09/14 I am resuming the care of the patient today Patient today remains in the ICU however she is very confused, looks mildly agitated and does not answer questions and follow commands. However her abdominal tenderness significantly improved, there is no suprapubic tenderness or RUQ tenderness And both AKA wounds are in dressing and looks. Patient evaluated by neurology service, ordered carotid Doppler showing with known left ICA stenosis and occlusion while right ICA is 50 to 69% occlusion Patient remains on broad-spectrum antibiotic,'s antibiotic switch from cefepime IV vancomycin to Zosyn. His leukocyte count worsened up to 21,000 09/15 Patient remains in the ICU She is still confused and drowsy, she is not answering questions or follows command Her abdomen looks soft with mild suprapubic tenderness Urinary catheter in place. Antibiotic no was adjusted to Zosyn, leukocytosis improved down to 13,000, which is improved Hemoglobin dropped to 7.3 will need close monitoring Patient remains on sodium bicarb drip at 50 mL/h 09/16 Patient is more awake and interactive, she is still somewhat lethargic but significantly improved compared to the last 2 days, she can tell me her name and when she reoriented about time place person she looks to remember. She does not have abdominal pain abdomen is soft Infante catheter in place Today she is developing diarrhea, C. difficile was checked was negative, lung nodule as needed is ordered however we will discontinue Colace patient she was taking. Patient also on Senokot-S as needed. She remains on Zosyn with looks working well for her with leukocytosis improving and mentation is improving 09/17 Patient is awake alert today She is complaining from abdominal pain and diarrhea. However fecal management system was discontinued and she had only 2 loose bowel movement overnight. C. difficile is negative. Patient already on Questran On examination she have mild generalized tenderness little bit on the more on the right side but there is no guarding or rebound tenderness. Patient remains on Zosyn Aspirin ordered but not given. However she is taking the Brilinta. Blood pressure is improved and I do not think she needs midodrine anymore so will be discontinued Patient is status post 1 unit of blood transfusion yesterday hemoglobin went up 6.1 up to 8.3 Active Medications Generic Name Dose Route Start Last Admin Trade Name Freq PRN Reason Stop Dose Admin Aspirin 81 mg 09/08/24 21:00 09/15/24 19:48 Aspirin 81 Mg PO Not Given HS AMANDA Atorvastatin Calcium 80 mg 09/08/24 21:00 09/15/24 19:48 Atorvastatin 80 Mg Tab PO Not Given HS AMANDA Budesonide/Formoterol Fumarate 2 puff 09/08/24 19:00 09/15/24 21:03 Symbicort 80-4.5 Mcg Inhaler INHALATION Not Given RT-BID@0700,1900 [facility] Dapagliflozin 10 mg 09/09/24 09:00 09/15/24 09:07 Dapagliflozin Propanediol 10 Mg Tablet PO Not Given DAILY [facility] Heparin Sodium (Porcine) 5,000 unit 09/15/24 00:00 09/16/24 00:48 Heparin Sodium,Porcine 5,000 Unit/Ml 1 Ml Vial SQ 5,000 unit Q8HR [facility]DA Administration Hydrocortisone Sodium Succinate 50 mg 09/13/24 12:00 09/16/24 07:03 Hydrocortisone Succinate 100 Mg/2 Ml Vial IV 50 mg Q6HR [facility] Administration Sodium Bicarbonate 150 ml/ 1,150 mls @ 50 mls/hr 09/14/24 11:00 09/15/24 10:23 Dextrose/Water IV 50 mls/hr .Q23H [facility] Administration Piperacillin Sod/Tazobactam 100 mls @ 25 mls/hr 09/15/24 12:00 09/16/24 05:00 Sod 3.375 gm/ Sodium Chloride IVPB 25 mls/hr Q8H [facility] Administration Protocol Acetaminophen 1,000 mg/ IV 100 mls @ 400 mls/hr 09/16/24 05:35 09/16/24 05:35 Solution IVPB 09/17/24 06:00 400 mls/hr Q6HR PRN Administration Mild Pain or Fever > 100.5 Ibuprofen 400 mg 09/08/24 14:31 09/12/24 13:35 Ibuprofen 400 Mg Tab PO 400 mg Q6HR PRN Administration Mild Pain or Fever > 100.5 Ipratropium [place] 0.5 mg 09/09/24 08:00 09/15/24 21:03 Ipratropium 0.5 Mg/2.5 Ml Nebu INHALATION Not Given RT-QID [facility] Levothyroxine Sodium 75 mcg 09/13/24 09:45 09/16/24 06:55 Levothyroxine 75 Mcg Tab PO Not Given DAILY@0630 [facility] Loperamide HCl 2 mg 09/16/24 07:28 Loperamide 2 Mg Cap PO QID PRN Diarrhea Methocarbamol 750 mg 09/08/24 16:01 Methocarbamol 750 Mg Tab PO QID PRN Muscle Spasm Midodrine 10 mg 09/12/24 12:00 09/16/24 06:55 Midodrine 5 Mg Tab PO Not Given TID@0600,1200,1800 [facility] Mirtazapine 15 mg 09/08/24 21:00 09/15/24 19:49 Mirtazapine 15 Mg Tab PO Not Given [facility] Miscellaneous Information 1 each 09/15/24 07:56 Potassium Replacement Protocol 1 Each Misc MISCELLANE DAILY PRN Per Protocol Protocol Naloxone HCl 0.2 mg 09/08/24 14:31 Naloxone 0.4 Mg/Ml 1 Ml Vial IV Q2M PRN Opioid Reversal Ondansetron HCl 4 mg 09/09/24 09:38 09/13/24 17:54 Ondansetron 4 Mg/2 Ml Vial IVP 4 mg Q6HR PRN Administration Nausea And Vomiting Pantoprazole Sodium 40 mg 09/09/24 09:00 09/15/24 09:12 Pantoprazole 40 Mg Tablet PO Not Given DAILY [facility] Polyethylene Glycol 17 gm 09/08/24 16:01 Polyethylene Glycol 3350 17 Gm Powd.Pack PO DAILY PRN Constipation Pregabalin 50 mg 09/12/24 16:00 09/15/24 19:49 Pregabalin 50 Mg Cap PO Not Given TID [facility] Prochlorperazine Maleate 5 mg 09/13/24 15:21 09/13/24 16:32 Prochlorperazine 5 Mg Tab PO 5 mg Q8HR PRN Administration Nausea And Vomiting Sacubitril/Valsartan 1 each 09/08/24 21:00 09/15/24 19:49 Sacubitril/Valsartan 24 Mg-26 Mg Tablet PO Not Given BID [facility] Senna 8.6 mg 09/08/24 16:01 Sennosides 8.6 Mg Tab PO Q12H PRN Constipation Ticagrelor 90 mg 09/08/24 21:00 09/15/24 19:49 Ticagrelor 90 Mg Tab PO Not Given BID [facility] Tramadol HCl 50 mg 09/08/24 16:01 09/11/24 13:46 Tramadol 50 Mg Tab PO 50 mg Q6H PRN Administration Pain Objective - Vital Signs Vital signs: Vital Signs Temp 97.7 F 09/17/24 03:21 Pulse 106 H 09/17/24 03:21 Resp 20 09/17/24 03:21 BP 120/70 09/17/24 06:12 Pulse Ox 93 L 09/17/24 03:21 FiO2 1 09/10/24 00:00 Intake & Output 09/16/24 09/17/24 09/17/24 18:59 06:59 18:59 Intake Total 563 Output Total 175 400 Balance 388 -400 Weight 52.2 kg 51.2 kg Intake: IV 280 0.9 @ KVO 80 Dextrose 5% in Water 1, 200 000 ml @ 50 mls/hr IV . Q23H [facility] with Sodium Bicarb (1 Meq/ml) 150 ml Rx#:[id number] Blood Product 283 Rc Pheresis 2 As3 Unit 283 [id number] Output: Drainage 100 Bilateral AKA wound vac 100 Urine 175 300 Other: Voiding Method Indwelling Catheter Indwelling Catheter # Bowel Movements 1 - Exam -GENERAL: The patient isAwake but confused, not in any acute distress. Well developed, well nourished. HEENT: Pupils are round and equally reacting to light. EOMI. No scleral icterus. No conjunctival pallor. Normocephalic, atraumatic. No pharyngeal erythema. No thyromegaly. CARDIOVASCULAR: S1 and S2 present. No murmurs, rubs, or gallops. PULMONARY: Chest is clear to auscultation, no wheezing , no crackles. -ABDOMEN: Soft, nondistended, normoactive bowel sounds. No palpable organomegaly. Suprapubic tenderness improved. Infante catheter in place MUSCULOSKELETAL: No joint swelling or deformity. -EXTREMITIES: No cyanosis, clubbing, or pedal edema. Bilateral AKA with super ficial wounds of the bilateral stumps with dressing in place after debridement on 09/10 NEUROLOGICAL: Gross neurological examination did not reveal any focal deficits. SKIN: No rashes. no petechiae. - Labs CBC & Chem 7: 09/16/24 16:22 09/16/24 05:35 Labs: Abnormal Lab Results - Last 24 Hours (Table) 09/16/24 09/16/24 Range/Units 07:44 16:22 WBC 11.9 H (3.8-10.6) k/uL RBC 2.81 L (3.80-5.40) m/uL Hgb 8.3 L D (11.4-16.0) gm/dL Hct 25.8 L (34.0-46.0) % RDW 17.2 H (11.5-15.5) % Plt Count 131 L (150-450) k/uL Crossmatch See Detail Assessment and Plan Assessment: Cellulitis and infections of bilateral AKA stumps, there is suspicion of osteomyelitis at the distal margins of the right stump per x-ray. Status post I&D by vascular surgery on 09/10 Acute urinary tract infection with suprapubic tenderness. Urine cultures pending Gallbladder disease with gallstones, but there is suspicion of acute cholecystitis Severe sepsis/septic shock, present on admission, improving Peripheral artery disease severe anemia status post 1 unit of blood transfusion on 09/16 Plan: continue with broad-spectrum antibiotics, currently on Zosyn No IV fluids Continu dual antiplatelet therapy. Aspirin and Brilinta S/p 09/10/24 for I&D of the AKA stumps Several consultants on the case including pulmonary/critical, vascular surgery and ID team General Surgery also seen the patient Labs and medication were reviewed.. Continue same treatment. Continue with symptomatic treatment. Resume home medication. Monitor labs and vitals. DVT and GI prophylaxis. Further recommendations as per clinical course of the patient DVT prophylaxis: On dual antiplatelet therapy GI Prophylaxis: Protonix Prognosis is guarded
--- NOTE | 2024-09-17 14:04 | P.PN ---
Subjective Progress Note Date: 09/17/24 Patient is seen and examined today as a follow-up. She was transferred out of the ICU. She is much more awake and alert today. She is alert and oriented x 3. States she has some tenderness at surgical sites where wound vacs are. Otherwise no major pain. She has been afebrile. Objective - Vital Signs Vital signs: Vital Signs Temp 97.8 F 09/17/24 08:56 Pulse 103 H 09/17/24 08:56 Resp 14 09/17/24 08:56 BP 125/71 09/17/24 08:56 Pulse Ox 92 L 09/17/24 08:56 FiO2 1 09/10/24 00:00 Intake & Output 09/16/24 09/17/24 09/17/24 18:59 06:59 18:59 Intake Total 563 Output Total 175 400 Balance 388 -400 Weight 52.2 kg 51.2 kg Intake: IV 280 0.9 @ KVO 80 Dextrose 5% in Water 1, 200 000 ml @ 50 mls/hr IV . Q23H [facility] with Sodium Bicarb (1 Meq/ml) 150 ml Rx#:[id number] Blood Product 283 Rc Pheresis 2 As3 Unit 283 [id number] Output: Drainage 100 Bilateral AKA wound vac 100 Urine 175 300 Other: Voiding Method Indwelling Catheter Indwelling Catheter # Bowel Movements 1 - Exam General appearance: The patient is awake, patient is not oriented, nonverbal or engaging. HET: Head is normocephalic and atraumatic. Pupils are equal and reactive. Neck: Supple. Abdomen: Soft, nondistended. Extremities: Bilateral cnjha-qfs-jtyc amputations warm to the touch with wound vacs in place with good suction. Neurological: Patient awake, nonverbal or engaging. - Labs CBC & Chem 7: 09/16/24 16:22 09/16/24 05:35 Labs: Abnormal Lab Results - Last 24 Hours (Table) 09/16/24 09/16/24 Range/Units 07:44 16:22 WBC 11.9 H (3.8-10.6) k/uL RBC 2.81 L (3.80-5.40) m/uL Hgb 8.3 L D (11.4-16.0) gm/dL Hct 25.8 L (34.0-46.0) % RDW 17.2 H (11.5-15.5) % Plt Count 131 L (150-450) k/uL Crossmatch See Detail Assessment and Plan Assessment: 1. Postop day #4 for bilateral oghqk-raw-uezt amputation wound debridement and wound VAC placement 2. Bilateral cbafi-ojs-mdge amputation wound dehiscence 3. Altered mental status changes, improving Plan: 1. Consult placed for wound care, continue with their recommendations for local wound care and outpatient wound care. 2. Wound VAC to bilateral AKA stumps. Change Saturday 3. Antibiotics per recommendations from infectious disease Thank you for this consultation, patient can follow-up with vascular surgery in outpatient setting. We will sign off at this time. The impression and plan of care has been dictated as directed. Dr. Infante I performed a history and examination of this patient, discussed the same with the dictator. I agree with the dictator's note ,documented as a scribe. Any additional findings or plans will be noted.
--- NOTE | 2024-09-17 15:59 | P.PN ---
Subjective Progress Note Date: 09/15/24 Principal diagnosis: Reason for follow-up is sepsis bacteremia Patient is a 69-year-old female with multiple comorbidity patient did have a significant PAD and did have a bilateral ijnah-wag-tgxn amputations with subsequent dehiscence of the wound patient has been sent from the local residential to the hospital with fever, patient be diagnosed with sepsis admitted to the ICU did have a positive blood culture with Klebsiella. Patient is status post surgical debridement of bilateral AKA wound and application of wound VAC culture has been obtained On today's evaluation that is 09/15/2023, Patient is afebrile this morning patient slightly more awake today and is breathing comfortably on room air no chest pain cough vomiting or any worsening diarrhea reported by the nursing staff. Patient white count is down to 13.2, creatinine is 1.16 Objective - Vital Signs Vital signs: Vital Signs Temp 97.9 F 09/15/24 15:00 Pulse 81 09/15/24 15:33 Resp 21 09/15/24 15:33 BP 118/50 09/15/24 15:00 Pulse Ox 99 09/15/24 14:00 FiO2 1 09/10/24 00:00 Intake & Output 09/14/24 09/15/24 09/15/24 18:59 06:59 18:59 Intake Total 1055.013 980 520 Output Total 730 775 265 Balance 325.013 205 255 Weight 53.7 kg 53.7 kg Intake: IV 425 830 420 0.9 @ KVO 100 80 70 ACETAMINOPHEN IV (For NPO 100 ) 1,000 mg In Empty Bag 1 bag @ 400 mls/hr IVPB Q6HR PRN Rx#:[id number] Dextrose 5% in Water 1, 550 350 000 ml @ 50 mls/hr IV . Q23H AMANDA with Sodium Bicarb (1 Meq/ml) 150 ml Rx#:[id number] Lactated Ringers 1,000 ml 225 @ 75 mls/hr IV .[id number] AMANDA Rx#:[id number] Piperacillin-Tazobactam 3 200 .375 gm In Sodium Chloride 0.9% 100 ml @ 25 mls/hr IVPB Q8HR AMANDA Rx# :[id number] Intake, IV Titration 630.013 150 100 Amount Cefepime 1 gm In Sodium 50 Chloride 0.9% 50 ml @ 12. 5 mls/hr IVPB Q12HR AMANDA Rx#:[id number] Dextrose 5% in Water 1, 450 50 000 ml @ 50 mls/hr IV . Q23H AMANDA with Sodium Bicarb (1 Meq/ml) 150 ml Rx#:[id number] Norepinephrine 8 mg In 30.013 Sodium Chloride 0.9% 250 ml @ 0.03 MCG/KG/MIN 2. 897 mls/hr IV .Q24H AMANDA Rx#:[id number] Piperacillin-Tazobactam 3 100 100 .375 gm In Sodium Chloride 0.9% 100 ml @ 25 mls/hr IVPB Q8HR AMANDA Rx# :[id number] Potassium Chloride 20 meq 100 In Water For Injection 1 100ml.bag @ 50 mls/hr IVPB Q2H AMANDA Rx#: [id number] Output: Urine 730 775 265 Other: Voiding Method Indwelling Catheter Indwelling Catheter Indwelling Catheter # Bowel Movements 1 1 - Exam GENERAL DESCRIPTION: An elderly female lying in bed in no distress RESPIRATORY SYSTEM: Unlabored breathing , decreased breath sounds at bases HEART: S1 S2 regular rate and rhythm , ABDOMEN: Soft , no tenderness EXTREMITIES: Bilateral AKA stump wound is covered with a wound VAC - Labs CBC & Chem 7: 09/16/24 16:22 09/16/24 05:35 Labs: Abnormal Lab Results - Last 24 Hours (Table) 09/14/24 09/15/24 09/15/24 Range/Units 07:18 05:50 05:50 WBC 13.2 H (3.8-10.6) k/uL RBC 2.35 L (3.80-5.40) m/uL Hgb 7.3 L (11.4-16.0) gm/dL Hct 22.6 L (34.0-46.0) % RDW 17.0 H (11.5-15.5) % Plt Count 119 L (150-450) k/uL Neutrophils # 12.1 H (1.3-7.7) k/uL Lymphocytes # 0.7 L (1.0-4.8) k/uL Potassium 2.8 L (3.5-5.1) mmol/L Chloride 113 H (98-107) mmol/L Carbon Dioxide 18 L (22-30) mmol/L BUN 24 H (7-17) mg/dL Creatinine 1.16 H (0.52-1.04) mg/dL Glucose 139 H (74-99) mg/dL Calcium 7.0 L (8.4-10.2) mg/dL Procalcitonin 3.18 H (0.02-0.50) ng/mL Microbiology - Last 24 Hours (Table) 09/11/24 05:44 Blood Culture Gram Stain - Preliminary Blood Blood Culture - Preliminary 09/10/24 11:05 Anaerobic Culture - Final Leg - Right Assessment and Plan (1) Bilateral lower leg cellulitis Current Visit: Yes Status: Acute Code(s): L03.116 - CELLULITIS OF LEFT LOWER LIMB; L03.115 - CELLULITIS OF RIGHT LOWER LIMB SNOMED Code(s): 633387016 (2) Sepsis Current Visit: Yes Status: Acute Code(s): A41.9 - SEPSIS, UNSPECIFIED ORGANISM SNOMED Code(s): 41077897 (3) Bacteremia Current Visit: Yes Status: Acute Code(s): R78.81 - BACTEREMIA SNOMED Code(s): 7883858 Plan: 1patient is in the hospital with sepsis in this patient with a fever tachycardia elevated white count source is likely bilateral AKA wound and concern for osteomyelitis to the right AKA stump site however the patient also have elevated liver enzyme and there was a history of vomiting underlying abdominal source monitor excluded. 2patient has been evaluated by vascular surgery and is status post debridement of the wound and deep culture completed on 09/10/2024 culture has been E. coli strep and Serratia marcescens is 3patient does have a positive blood culture with Klebsiella,\4 ultrasound of the abdomen suggestive of possible cholecystitis General Surgery is being consulted recommending medical treatment at this point 5patient did have some improvement in the mental status after switching a ntibiotics to Zosyn to continue and monitor clinical course closely Dictation was produced using [employer] dictation software. please excuse any grammatical, word or spelling errors. Time with Patient: Less than 30
--- NOTE | 2024-09-17 16:00 | P.PN ---
Subjective Progress Note Date: 09/16/24 Principal diagnosis: Reason for follow-up is sepsis bacteremia Patient is a 69-year-old female with multiple comorbidity patient did have a significant PAD and did have a bilateral xawlq-dhj-[id number] amputations with subsequent dehiscence of the wound patient has been sent from the local long term to the hospital with fever, patient be diagnosed with sepsis admitted to the ICU did have a positive blood culture with Klebsiella. Patient is status post surgical debridement of bilateral AKA wound and application of wound VAC culture has been obtained On today's evaluation that is 09/16/2024,the patient denies any fever or any chills, patient is breathing comfortably on room air, the patient is more awake and alert denies chest pain shortness of breath and no significant cough, patient denies abdominal pain, no nausea vomiting still complaining of pain to bilateral AKA stump area. Patient white count down to 11.9, creatinine 1.07 Objective - Vital Signs Vital signs: Vital Signs Temp 97.4 F L 09/16/24 11:47 Pulse 94 09/16/24 11:47 Resp 20 09/16/24 11:47 BP 136/63 09/16/24 11:47 Pulse Ox 96 09/16/24 11:47 FiO2 1 09/10/24 00:00 Intake & Output 09/15/24 09/16/24 09/16/24 18:59 06:59 18:59 Intake Total 790 1020 0 Output Total 475 325 Balance 315 695 0 Weight 53.7 kg 52.2 kg Intake: IV 690 1020 0.9 @ KVO 90 120 Dextrose 5% in Water 1, 600 800 000 ml @ 50 mls/hr IV . Q23H AMANDA with Sodium Bicarb (1 Meq/ml) 150 ml Rx#:[id number] Piperacillin-Tazobactam 3 100 .375 gm In Sodium Chloride 0.9% 100 ml @ 25 mls/hr IVPB Q8HR AMANDA Rx# :[id number] Intake, IV Titration 100 Amount Potassium Chloride 20 meq 100 In Water For Injection 1 100ml.bag @ 50 mls/hr IVPB Q2H AMANDA Rx#: [id number] Blood Product 0 Unit 0 Output: Urine 475 325 Other: Voiding Method Indwelling Catheter Indwelling Catheter # Bowel Movements 1 - Exam GENERAL DESCRIPTION: An elderly female lying in bed in no distress RESPIRATORY SYSTEM: Unlabored breathing , decreased breath sounds at bases HEART: S1 S2 regular rate and rhythm , ABDOMEN: Soft , no tenderness EXTREMITIES: Bilateral AKA stump wound is covered with a wound VAC - Labs CBC & Chem 7: 09/16/24 16:22 09/16/24 05:35 Labs: Abnormal Lab Results - Last 24 Hours (Table) 09/15/24 09/16/24 09/16/24 Range/Units 17:05 05:35 05:35 WBC 10.9 H (3.8-10.6) k/uL RBC 1.98 L (3.80-5.40) m/uL Hgb 6.1 L* (11.4-16.0) gm/dL Hct 19.2 L* (34.0-46.0) % RDW 17.1 H (11.5-15.5) % Plt Count 120 L (150-450) k/uL Neutrophils # 9.8 H (1.3-7.7) k/uL Lymphocytes # 0.6 L (1.0-4.8) k/uL Potassium 3.4 L (3.5-5.1) mmol/L Chloride 113 H (98-107) mmol/L BUN 22 H (7-17) mg/dL Creatinine 1.07 H (0.52-1.04) mg/dL Glucose 127 H (74-99) mg/dL Calcium 6.9 L (8.4-10.2) mg/dL Crossmatch 09/16/24 Range/Units 07:44 WBC (3.8-10.6) k/uL RBC (3.80-5.40) m/uL Hgb (11.4-16.0) gm/dL Hct (34.0-46.0) % RDW (11.5-15.5) % Plt Count (150-450) k/uL Neutrophils # (1.3-7.7) k/uL Lymphocytes # (1.0-4.8) k/uL Potassium (3.5-5.1) mmol/L Chloride (98-107) mmol/L BUN (7-17) mg/dL Creatinine (0.52-1.04) mg/dL Glucose (74-99) mg/dL Calcium (8.4-10.2) mg/dL Crossmatch See Detail Microbiology - Last 24 Hours (Table) 09/11/24 05:44 Blood Culture Gram Stain - Preliminary Blood Blood Culture - Preliminary Assessment and Plan (1) Bilateral lower leg cellulitis Current Visit: Yes Status: Acute Code(s): L03.116 - CELLULITIS OF LEFT LOWER LIMB; L03.115 - CELLULITIS OF RIGHT LOWER LIMB SNOMED Code(s): 195412388 (2) Sepsis Current Visit: Yes Status: Acute Code(s): A41.9 - SEPSIS, UNSPECIFIED ORGANISM SNOMED Code(s): 99553170 (3) Bacteremia Current Visit: Yes Status: Acute Code(s): R78.81 - BACTEREMIA SNOMED Code(s): 5619186 Plan: 1patient is in the hospital with sepsis in this patient with a fever tachycardia elevated white count source is likely bilateral AKA wound and concern for osteomyelitis to the right AKA stump site however the patient also have elevated liver enzyme and there was a history of vomiting underlying abdominal source monitor excluded. 2patient has been evaluated by vascular surgery and is status post debridement of the wound and deep culture completed on 09/10/2024 culture has been E. coli strep and Serratia marcescens is 3patient does have a positive blood culture with Klebsiella, repeat culture currently pending 4 ultrasound of the abdomen suggestive of possible cholecystitis General Surgery is being consulted recommending medical treatment at this point 5patient did have improvement in the mental status we will continue with Zosyn and monitor clinical course closely Dictation was produced using [employer] dictation software. please excuse any grammatical, word or spelling errors. Time with Patient: Less than 30
--- NOTE | 2024-09-17 16:02 | P.PN ---
Subjective Progress Note Date: 09/17/24 Principal diagnosis: Reason for follow-up is sepsis bacteremia Patient is a 69-year-old female with multiple comorbidity patient did have a significant PAD and did have a bilateral rcxqv-qyy-[id number] amputations with subsequent dehiscence of the wound patient has been sent from the local senior living to the hospital with fever, patient be diagnosed with sepsis admitted to the ICU did have a positive blood culture with Klebsiella. Patient is status post surgical debridement of bilateral AKA wound and application of wound VAC culture has been obtained On today's evaluation that is 09/17/2024,the patient remains to be afebrile, patient is on 2 L nasal cannula supplemental oxygen and denies any shortness of breath no chest pain or cough.Patient denies having any nausea or vomiting, no abdominal pain and no worsening diarrhea has been reported. No new lab has been obtained today, local culture currently growing strep E. coli and Serratia Objective - Vital Signs Vital signs: Vital Signs Temp 98.1 F 09/17/24 11:17 Pulse 108 H 09/17/24 11:37 Resp 16 09/17/24 11:17 BP 118/67 09/17/24 11:17 Pulse Ox 92 L 09/17/24 11:17 FiO2 1 09/10/24 00:00 Intake & Output 09/16/24 09/17/24 09/17/24 18:59 06:59 18:59 Intake Total 563 Output Total 175 400 Balance 388 -400 Weight 52.2 kg 51.2 kg Intake: IV 280 0.9 @ KVO 80 Dextrose 5% in Water 1, 200 000 ml @ 50 mls/hr IV . Q23H AMANDA with Sodium Bicarb (1 Meq/ml) 150 ml Rx#:[id number] Blood Product 283 Rc Pheresis 2 As3 Unit 283 [id number] Output: Drainage 100 Bilateral AKA wound vac 100 Urine 175 300 Other: Voiding Method Indwelling Catheter Indwelling Catheter # Bowel Movements 1 1 - Exam GENERAL DESCRIPTION: An elderly female lying in bed in no distress RESPIRATORY SYSTEM: Unlabored breathing , decreased breath sounds at bases HEART: S1 S2 regular rate and rhythm , ABDOMEN: Soft , no tenderness EXTREMITIES: Bilateral AKA stump wound is covered with a wound VAC - Labs CBC & Chem 7: 09/16/24 16:22 09/16/24 05:35 Labs: Abnormal Lab Results - Last 24 Hours (Table) 09/16/24 Range/Units 16:22 WBC 11.9 H (3.8-10.6) k/uL RBC 2.81 L (3.80-5.40) m/uL Hgb 8.3 L D (11.4-16.0) gm/dL Hct 25.8 L (34.0-46.0) % RDW 17.2 H (11.5-15.5) % Plt Count 131 L (150-450) k/uL Microbiology - Last 24 Hours (Table) 09/11/24 05:44 Blood Culture Gram Stain - Final Blood Blood Culture - Preliminary Assessment and Plan (1) Bilateral lower leg cellulitis Current Visit: Yes Status: Acute Code(s): L03.116 - CELLULITIS OF LEFT LOWER LIMB; L03.115 - CELLULITIS OF RIGHT LOWER LIMB SNOMED Code(s): 461112278 (2) Sepsis Current Visit: Yes Status: Acute Code(s): A41.9 - SEPSIS, UNSPECIFIED ORGANISM SNOMED Code(s): 51737620 (3) Bacteremia Current Visit: Yes Status: Acute Code(s): R78.81 - BACTEREMIA SNOMED Code(s): 8383772 Plan: 1patient is in the hospital with sepsis in this patient with a fever tachycardia elevated white count source is likely bilateral AKA wound and concern for osteomyelitis to the right AKA stump site however the patient also have elevated liver enzyme and there was a history of vomiting underlying abdominal source monitor excluded. 2patient has been evaluated by vascular surgery and is status post debridement of the wound and deep culture completed on 09/10/2024 culture has been E. coli strep and Serratia marcescens 3patient does have a positive blood culture with Klebsiella, repeat culture currently pending 4 ultrasound of the abdomen suggestive of possible cholecystitis General Surgery is being consulted recommending medical treatment at this point 5patient will continue with Zosyn will obtain a PICC line remove the groin triple-lumen to decrease risk of line sepsis will need IV antibiotics on discharge Dictation was produced using [employer] dictation software. please excuse any grammatical, word or spelling errors. Time with Patient: Less than 30
--- NOTE | 2024-09-17 17:30 | P.PN ---
Subjective Progress Note Date: 09/17/24 On 09/14/2023, this 69-year-old female patient is being seen for a follow-up in the intensive care unit where she was hospitalized for cellulitis and secondary septicemia. The patient is known to have coronary artery disease, hypertension, hyperlipidemia, and previous right above-knee amputation and subsequent left above-knee amputation. The patient's blood cultures were positive for E. coli and Klebsiella at the time of admission and the patient was quite septic. She stands. EGD and debridement completed and she is was seen by vascular surgery osteomyelitis of her right femur and the patient underwent surgical debridement of the bilateral above-knee amputation wounds and wound VAC was placed on both sides. The patient did have wound dehiscence bilaterally. The x-ray of the right femur showed haziness in the right stump suspicious for osteomyelitis. Left side was essentially within normal limits. The wound cultures from the left were positive for strep group B, Serratia marcescens and E. coli in the cultures from the right were positive for E. coli and strep group B. Based on this, the patient was given broad-spectrum antibiotics and the patient is currently on IV cefepime. Hemodynamically, the patient is still requiring low- dose pressors. She remains on lactated Ringer at rate of 20 cc an hour. She is also on midodrine 10 mg p.o. 3 times daily. She was also started on hyd rocortisone due to concerns of adrenal sufficiency. Serum cortisol at baseline was 10.6. Blood work from today shows a WBC count of 12.8 with hemoglobin 10.3 and a platelet count of 183. BUN is 17 with a creatinine of 0.89 and sodium levels at 136 and a potassium level is at 4.2. LFTs have been downtrending with an AST of 84, ALT of 52 and alkaline phosphatase elevated at 490, probably related to underlying osteomyelitis. Procalcitonin level was 22.7 at the time of admission. TSH was at 7.3 at time of admission and the patient is currently on levothyroxine 75 mcg p.o. daily. Her most recent echocardiogram from October 2023 showed impaired LV function with an ejection fraction of 30 to 35% along with mild pulmonary hypertension. She is currently on 2 L of oxygen by nasal cannula. She is on LR at 75 cc / hr. She is on Ne at 0.01 mc/kg/min. On 09/15/2024, the patient remains confused. She is nonverbal. She opens her eyes spontaneously. She looks around. She grimaces and she withdraws to painful stimulation. Nevertheless, she does not initiate any conversation. She is not eating and she is unable to swallow. Meanwhile, hemodynamically, the patient is improved and the patient is currently off pressors for the past 24 hours. She remains on a bicarb infusion at a rate of 50 cc an hour. Hemoglobin stable at 7.3. Her procalcitonin level is dropped from 22 down to 3. Rest of the blood work shows a white cell count of 13.2 with a hemoglobin of 7.3 and a platelet count of 119. Sodium is at 140, potassium is at 2.8 that is to be replaced with a BUN of 24 and creatinine 1.1. Serum bicarb is at 18. The patient remains on IV Zosyn. Rest of the medication remains unchanged. Remains on stress dose hydrocortisone. Noted hemodynamically, the patient is off pressors. Limited echocardiogram was ordered to reevaluate LV function and the patient ejection fraction is currently in the order of 20 to 25% and the patient has severe impairment of the LV function. Carotid Dopplers were also performed and the patient was found to have known left internal carotid artery occlusion and moderate 50 to 69% occlusion in the right ICA. 09/16/2024, the patient is being seen for a follow-up. This morning, the patient is awake alert and communicating. No confusion. No altered mentation. There has been significant improvement in mentation over the past 24 hours. Hemod ynamically stable. Remains on the same antibiotic coverage and the patient remains on IV Zosyn. Afebrile. No pressors for now. The white cell count of 10.9 with a hemoglobin 6.1 and the patient will need a unit of packed RBC. BUN is 22 with a creatinine of 1.07 and a sodium levels at 143. The patient is also on a bicarb infusion and serum bicarb is up to 23 and this will be further discontinued. She is currently on room air oxygen. Afebrile. Hemodynamically stable. On 09/17/2024, the patient is having some occasional hallucination. Awake alert and communicating. She was transferred out of the intensive care unit yesterday. She remains on room air oxygen with a pulse ox of 93%. She remains on the same antibiotic coverage and the patient remains on IV Zosyn. No fever. No hemodynamic instability and the patient's blood pressure is essentially stabilized. She was taken off the IV hydrocortisone. The white cell count is 11 with a hemoglobin 9.3 and a platelet count of 131. No evidence of any GI bleeding. ID is on the case. Tolerating diet. Able to swallow. Objective - Vital Signs Vital signs: Vital Signs Temp 97.8 F 09/17/24 08:56 Pulse 103 H 09/17/24 08:56 Resp 14 09/17/24 08:56 BP 125/71 09/17/24 08:56 Pulse Ox 92 L 09/17/24 08:56 FiO2 1 09/10/24 00:00 Intake & Output 09/16/24 09/17/24 09/17/24 18:59 06:59 18:59 Intake Total 563 Output Total 175 400 Balance 388 -400 Weight 52.2 kg 51.2 kg Intake: IV 280 0.9 @ KVO 80 Dextrose 5% in Water 1, 200 000 ml @ 50 mls/hr IV . Q23H AMANDA with Sodium Bicarb (1 Meq/ml) 150 ml Rx#:[id number] Blood Product 283 Rc Pheresis 2 As3 Unit 283 [id number] Output: Drainage 100 Bilateral AKA wound vac 100 Urine 175 300 Other: Voiding Method Indwelling Catheter Indwelling Catheter # Bowel Movements 1 - Exam GENERAL: A 69-year-old female patient, alert and oriented x3, not in any acute distress. Well developed, well nourished. On room air oxygen HEENT: Pupils are round and equally reacting to light. EOMI. No scleral icterus. No conjunctival pallor. Normocephalic, atraumatic. No pharyngeal erythema. No thyromegaly. CARDIOVASCULAR: S1 and S2 present. No murmurs, rubs, or gallops. PULMONARY: Chest is clear to auscultation, no wheezing , no crackles. ABDOMEN: Soft, nondistended, normoactive bowel sounds. No palpable organomegaly. Suprapubic tenderness. Infante catheter in place MUSCULOSKELETAL: No joint swelling or deformity. EXTREMITIES: No cyanosis, clubbing. Swelling/minimal edema of the upper extremities bilaterally. Bilateral AKA with superficial wounds of the bilateral stumps with some purulent discharge in the base which looks dried. Mild tenderness in the right AKA stump distally NEUROLOGICAL: Awake and alert and communicating SKIN: No rashes. no petechiae. - Labs CBC & Chem 7: 09/16/24 16:22 09/16/24 05:35 Labs: Abnormal Lab Results - Last 24 Hours (Table) 09/16/24 09/16/24 Range/Units 07:44 16:22 WBC 11.9 H (3.8-10.6) k/uL RBC 2.81 L (3.80-5.40) m/uL Hgb 8.3 L D (11.4-16.0) gm/dL Hct 25.8 L (34.0-46.0) % RDW 17.2 H (11.5-15.5) % Plt Count 131 L (150-450) k/uL Crossmatch See Detail Assessment and Plan Plan: Septic shock secondary to infection/dehiscence of a left above-knee surgical wound and right above knee surgical wound. The patient has positive gram- negative septicemia with blood cultures being positive for Klebsiella pneumoniae and E. coli on 09/08/2024. Currently off pressors and the patient is hemodynamically stable Bilateral surgical stump dehiscence for above-knee amputation, status post debridement with cultures being positive for strep group B and Serratia and E. coli on the left and Klebsiella pneumonia with strep group B and E. coli on the right. Surgical debridement has been performed on 09/10/2024 and wound VAC has been applied. Suspicion for osteomyelitis on the right. Vascular surgery is on the case. Hypotension secondary to sepsis, remains on pressors and broad-spectrum antibiotics with IV cefepime, currently off pressors CHF with impaired LV function with an ejection fraction of 30 to 35%, repeat limited echocardiogram showed an ejection fraction of 20 to 25% from 09/14/2024 Altered mentation/metabolic encephalopathy/delirium. 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 COPD maintained on a combination of Advair and Incruse on outpatient basis Coronary artery disease with previous stent placement in the mid LAD in October 2023 History of right-sided pleural effusion with a previous thoracentesis on the right, exudate with negative cytology Severe peripheral vascular disease as revealed on the previous CTA of the aorta with runoff and the patient has bilateral above-knee amputations Chronic and ongoing tobacco smoking History of CVA Suspect relative adrenal insufficiency, currently on stress dose hydrocortisone Hypothyroidism currently on Synthroid Transaminitis: Improved Elevated troponins MARCY likely secondary to hypotension, resolved Subclinical hypothyroidism History of hypertension History of hyperlipidemia Delirium, recovered and the mental status is back to normal Non-anion gap metabolic acidosis, recovered Plan: Clinically and hemodynamically stable Currently on room air oxygen Normal mentation, having occasional hallucinations. Overall mental status is improved. Able to swallow Advance diet as tolerated Currently off pressors and the patient has been transferred out of the intensive care unit Continue Synthroid 75 mcg daily Continue midodrine Continue cefepime Repeat procalcitonin level is improving Continue to follow
--- NOTE | 2024-09-18 15:14 | P.PN ---
Subjective Progress Note Date: 09/18/24 This is a pleasant 69 years old female who was sent from [facility] for altered mental status. 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 Since 07/2024. Patient also states she vomited once earlier. Patient fully awake and oriented, can answer questions appropriately and follows command, she does not look in distress. On admission her blood pressure was on the low side 68/53 5 sh she need to be transferred to ICU for start pressors, currently her blood pressure is better 102/50. She is having fever 103 on admission. She denies chest pain or dyspnea no right upper quadrant abdominal pain. No reports of diarrhea. Urine looks dark in the Infante catheter. No dysuria for the patient. Labs reviewed she has unremarkable CBC, BMP and LFT. Urinalysis is highly suspicious for infection Urine culture is pending Abdominal ultrasound showing cholelithiasis with minimal cholecystic fluid with thickening of the adjacent gallbladder suspicious for acute cholecystitis, however clinically does not behave like inflamed gallbladder Femur x-ray showing right AKA stump with hazy ostomy margin suspicious for osteomyelitis by the left AKA showing sharp ostomy margins. Chest x-ray showed combination of COPD and chronic CHF. Patient currently treated with broad-spectrum antibiotics with cefepime and IV vancomycin. Patient also on Ringer lactate at 130 mL/h She is continued on aspirin and Brilinta. 1/2 Patient is up in bed getting breathing treatment fully awake and oriented Still complaining from suprapubic pain and tenderness, Infante catheter is in place and picking up her urine output, overnight her urine output was low so increase her fluid currently she is getting Ringer lactate at 150 mL/h also she is getting Levophed at 0.06. Her urine output this morning improved and curre ntly 50-100. Overnight they tried to wean off Levophed and blood pressure dropped. They will try again this morning. Patient remains on antibiotics cefepime and IV vancomycin for her sepsis, several sources are suspected. Most likely the source is acute urinary tract infection I spoke with Dr. Rg this morning, he still suspect there is acute cholecystitis at the source of her sepsis and he recommended cholecystectomy but not currently because of her clinical condition and because she has been on Brilinta Also she has infected stump wounds in both legs and she is going for OR today especially on the right side however per vascular surgery it is unlikely to be the source of infection. Currently patient n.p.o. for the procedure 09/11 Patient remains awake and alert sitting up in bed. Mentation at baseline. Both AKA stumps are in a dressing after she underwent debridement yesterday, p arents is more severe in these areas as patient explains. However patient still complains from suprapubic and RUQ tenderness today. No other new complaint. The patient She remains on IV vancomycin and cefepime and dual antiplatelet therapy with aspirin and Brilinta from home Her numbers are improving with WBC down 26, 18 and today 11.3, creatinine 1.1 on admission came back to 0.8 Hemoglobin also came down to 9.6 down to 7.4 but this is after debridement and will continue close monitoring and will transfuse if hemoglobin less than 7 Liver enzymes trending down as well Patient continue to need very close monitoring in the ICU with frequent rounding 09/12. Patient seen and examined. Patient is alert, being weaned off the Levophed. Patient is slightly confused. 09/13. Patient seen and examined. Blood work done showed WBC 12.8, hemoglobin 10.3, platelet count 183 sodium 136, potassium 4.2, BUN 17, creatinine 0.89. No acute issues over 09/14 Patient today remains in the ICU however she is very confused, looks mildly agitated and does not answer questions and follow commands. However her abdominal tenderness significantly improved, there is no suprapubic tenderness or RUQ tenderness And both AKA wounds are in dressing and looks. Patient evaluated by neurology service, ordered carotid Doppler showing with known left ICA stenosis and occlusion while right ICA is 50 to 69% occlusion Patient remains on broad-spectrum antibiotic,'s antibiotic switch from cefepime IV vancomycin to Zosyn. His leukocyte count worsened up to 21,000 09/15 Patient remains in the ICU She is still confused and drowsy, she is not answering questions or follows command Her abdomen looks soft with mild suprapubic tenderness Urinary catheter in place. Antibiotic no was adjusted to Zosyn, leukocytosis improved down to 13,000, which is improved Hemoglobin dropped to 7.3 will need close monitoring Patient remains on sodium bicarb drip at 50 mL/h 09/16 Patient is more awake and interactive, she is still somewhat lethargic but significantly improved compared to the last 2 days, she can tell me her name and when she reoriented about time place person she looks to remember. She does not have abdominal pain abdomen is soft Infante catheter in place Today she is developing diarrhea, C. difficile was checked was negative, lung nodule as needed is ordered however we will discontinue Colace patient she was taking. Patient also on Senokot-S as needed. She remains on Zosyn with looks working well for her with leukocytosis improving and mentation is improving 09/17 Patient is awake alert today She is complaining from abdominal pain and diarrhea. However fecal management system was discontinued and she had only 2 loose bowel movement overnight. C. difficile is negative. Patient already on Questran On examination she have mild generalized tenderness little bit on the more on the right side but there is no guarding or rebound tenderness. Patient remains on Zosyn Aspirin ordered but not given. However she is taking the Brilinta. Blood pressure is improved and I do not think she needs midodrine anymore so will be discontinue 09/18. Patient seen and examined. States she feels better. Still complain lethargic and weakness REVIEW OF SYSTEMS: CONSTITUTIONAL: No fever, no malaise,. CARDIOVASCULAR: No chest pain, no palpitations, no syncope. PULMONARY: No shortness of breath, no cough, GASTROINTESTINAL: No diarrhea, no nausea, no vomiting, no abdominal pain. NEUROLOGICAL: No headaches, no weakness, PHYSICAL EXAMINATION: GENERAL: The patient is alert, chronically ill looking HEENT: Pupils are round and equally reacting to light. EOMI. No scleral icterus. No conjunctival pallor. Normocephalic, atraumatic. No pharyngeal erythema. No thyromegaly. CARDIOVASCULAR: S1 and S2 present. No murmurs, rubs, or gallops. PULMONARY: Diminished breath sound at the bases bilaterally, no wheezing or crackles. ABDOMEN: Soft, nontender, nondistended, normoactive bowel sounds. No palpable organomegaly. MUSCULOSKELETAL: No joint swelling or deformity. EXTREMITIES: Bilateral AKA with bandages seen, wound VAC seen NEUROLOGICAL: Gross neurological examination did not reveal any focal deficits. SKIN: No rashes. Assessment and plan Cellulitis and infections of bilateral AKA stumps, there is suspicion of osteomyelitis at the distal margins of the right stump per x-ray. Status post I&D by vascular surgery on 09/10 Acute urinary tract infection with suprapubic tenderness. Urine cultures pending Gallbladder disease with gallstones, but there is suspicion of acute cholecystitis Severe sepsis/septic shock, present on admission, improving Peripheral artery disease Monitor vital signs Monitor CBC Monitor CMP Continue telemetry monitoring Follow-up on blood cultures Continue wound care Continue pain management Continue IV Zosyn Continue aspirin, Lipitor, Brilinta Continue Farxiga Continue Entresto ID following Vascular surgery following Labs and medication were reviewed.. Continue same treatment. Continue with symptomatic treatment. Resume home medication. Monitor labs and vitals. DVT and GI prophylaxis. Further recommendations as per clinical course of the patient Dictation was produced using [employer] dictation software. please excuse any grammatical, word or spelling errors. Objective - Vital Signs Vital signs: Vital Signs Temp 97.6 F 09/18/24 07:57 Pulse 96 09/18/24 11:57 Resp 16 09/18/24 07:57 BP 143/77 09/18/24 07:57 Pulse Ox 95 09/18/24 07:57 FiO2 1 09/10/24 00:00 Intake & Output 09/17/24 09/18/24 09/18/24 18:59 06:59 18:59 Intake Total 240 Output Total 500 400 Balance -500 -160 Weight 51.2 kg Intake: IV 140 0.9 @ KVO 120 Invasive Line 3 20 Intake, IV Titration 100 Amount Piperacillin-Tazobactam 3 100 .375 gm In Sodium Chloride 0.9% 100 ml @ 25 mls/hr IVPB Q8H [facility] Rx#: [id number] Output: Urine 500 400 Uretheral (Infante) 400 Other: Voiding Method Indwelling Catheter Indwelling Catheter Indwelling Catheter # Bowel Movements 1 2 2 - Labs CBC & Chem 7: 09/16/24 16:22 09/16/24 05:35 Labs: Microbiology - Last 24 Hours (Table) 09/11/24 05:44 Blood Culture Gram Stain - Final Blood Blood Culture - Preliminary
--- NOTE | 2024-09-18 15:48 | P.PN ---
Subjective Progress Note Date: 09/18/24 On 09/14/2023, this 69-year-old female patient is being seen for a follow-up in the intensive care unit where she was hospitalized for cellulitis and secondary septicemia. The patient is known to have coronary artery disease, hypertension, hyperlipidemia, and previous right above-knee amputation and subsequent left above-knee amputation. The patient's blood cultures were positive for E. coli and Klebsiella at the time of admission and the patient was quite septic. She stands. EGD and debridement completed and she is was seen by vascular surgery osteomyelitis of her right femur and the patient underwent surgical debridement of the bilateral above-knee amputation wounds and wound VAC was placed on both sides. The patient did have wound dehiscence bilaterally. The x-ray of the right femur showed haziness in the right stump suspicious for osteomyelitis. Left side was essentially within normal limits. The wound cultures from the left were positive for strep group B, Serratia marcescens and E. coli in the cultures from the right were positive for E. coli and strep group B. Based on this, the patient was given broad-spectrum antibiotics and the patient is currently on IV cefepime. Hemodynamically, the patient is still requiring low- dose pressors. She remains on lactated Ringer at rate of 20 cc an hour. She is also on midodrine 10 mg p.o. 3 times daily. She was also started on hyd rocortisone due to concerns of adrenal sufficiency. Serum cortisol at baseline was 10.6. Blood work from today shows a WBC count of 12.8 with hemoglobin 10.3 and a platelet count of 183. BUN is 17 with a creatinine of 0.89 and sodium levels at 136 and a potassium level is at 4.2. LFTs have been downtrending with an AST of 84, ALT of 52 and alkaline phosphatase elevated at 490, probably related to underlying osteomyelitis. Procalcitonin level was 22.7 at the time of admission. TSH was at 7.3 at time of admission and the patient is currently on levothyroxine 75 mcg p.o. daily. Her most recent echocardiogram from October 2023 showed impaired LV function with an ejection fraction of 30 to 35% along with mild pulmonary hypertension. She is currently on 2 L of oxygen by nasal cannula. She is on LR at 75 cc / hr. She is on Ne at 0.01 mc/kg/min. On 09/15/2024, the patient remains confused. She is nonverbal. She opens her eyes spontaneously. She looks around. She grimaces and she withdraws to painful stimulation. Nevertheless, she does not initiate any conversation. She is not eating and she is unable to swallow. Meanwhile, hemodynamically, the patient is improved and the patient is currently off pressors for the past 24 hours. She remains on a bicarb infusion at a rate of 50 cc an hour. Hemoglobin stable at 7.3. Her procalcitonin level is dropped from 22 down to 3. Rest of the blood work shows a white cell count of 13.2 with a hemoglobin of 7.3 and a platelet count of 119. Sodium is at 140, potassium is at 2.8 that is to be replaced with a BUN of 24 and creatinine 1.1. Serum bicarb is at 18. The patient remains on IV Zosyn. Rest of the medication remains unchanged. Remains on stress dose hydrocortisone. Noted hemodynamically, the patient is off pressors. Limited echocardiogram was ordered to reevaluate LV function and the patient ejection fraction is currently in the order of 20 to 25% and the patient has severe impairment of the LV function. Carotid Dopplers were also performed and the patient was found to have known left internal carotid artery occlusion and moderate 50 to 69% occlusion in the right ICA. 09/16/2024, the patient is being seen for a follow-up. This morning, the patient is awake alert and communicating. No confusion. No altered mentation. There has been significant improvement in mentation over the past 24 hours. Hemod ynamically stable. Remains on the same antibiotic coverage and the patient remains on IV Zosyn. Afebrile. No pressors for now. The white cell count of 10.9 with a hemoglobin 6.1 and the patient will need a unit of packed RBC. BUN is 22 with a creatinine of 1.07 and a sodium levels at 143. The patient is also on a bicarb infusion and serum bicarb is up to 23 and this will be further discontinued. She is currently on room air oxygen. Afebrile. Hemodynamically stable. On 09/17/2024, the patient is having some occasional hallucination. Awake alert and communicating. She was transferred out of the intensive care unit yesterday. She remains on room air oxygen with a pulse ox of 93%. She remains on the same antibiotic coverage and the patient remains on IV Zosyn. No fever. No hemodynamic instability and the patient's blood pressure is essentially stabilized. She was taken off the IV hydrocortisone. The white cell count is 11 with a hemoglobin 9.3 and a platelet count of 131. No evidence of any GI bleeding. ID is on the case. Tolerating diet. Able to swallow. On 09/18/2024, patient is being seen for a follow-up. Resting comfortably in bed. No specific complaints. Hemodynamically stable. Remains on the same antibiotic coverage which include IV Zosyn. Labs were noted. Hemoglobin is at 8.3 and a platelet count is at 131 from 09/16/2024. No new labs are available f rom today. She remains on 2 L of oxygen by nasal cannula. At times, having hallucinations. No significant confusion. No focal neurological deficits. The patient is still lethargic and weak. Overall she is feeling better. Objective - Vital Signs Vital signs: Vital Signs Temp 97.6 F 09/18/24 07:57 Pulse 100 09/18/24 15:38 Resp 16 09/18/24 07:57 BP 143/77 09/18/24 07:57 Pulse Ox 95 09/18/24 07:57 FiO2 1 09/10/24 00:00 Intake & Output 09/17/24 09/18/24 09/18/24 18:59 06:59 18:59 Intake Total 240 Output Total 500 400 Balance -500 -160 Weight 51.2 kg Intake: IV 140 0.9 @ KVO 120 Invasive Line 3 20 Intake, IV Titration 100 Amount Piperacillin-Tazobactam 3 100 .375 gm In Sodium Chloride 0.9% 100 ml @ 25 mls/hr IVPB Q8H [facility] Rx#: [id number] Output: Urine 500 400 Uretheral (Infante) 400 Other: Voiding Method Indwelling Catheter Indwelling Catheter Indwelling Catheter # Bowel Movements 1 2 2 - Exam GENERAL: A 69-year-old female patient, alert and oriented x3, not in any acute distress. Well developed, well nourished. On room air oxygen HEENT: Pupils are round and equally reacting to light. EOMI. No scleral icterus. No conjunctival pallor. Normocephalic, atraumatic. No pharyngeal erythema. No thyromegaly. CARDIOVASCULAR: S1 and S2 present. No murmurs, rubs, or gallops. PULMONARY: Chest is clear to auscultation, no wheezing , no crackles. ABDOMEN: Soft, nondistended, normoactive bowel sounds. No palpable organomegaly. Suprapubic tenderness. Infante catheter in place MUSCULOSKELETAL: No joint swelling or deformity. EXTREMITIES: No cyanosis, clubbing. Swelling/minimal edema of the upper extremities bilaterally. Bilateral AKA with superficial wounds of the bilateral stumps with some purulent discharge in the base which looks dried. Mild tenderness in the right AKA stump distally NEUROLOGICAL: Awake and alert and communicating SKIN: No rashes. no petechiae. - Labs CBC & Chem 7: 09/16/24 16:22 09/16/24 05:35 Labs: Microbiology - Last 24 Hours (Table) 09/11/24 05:44 Blood Culture Gram Stain - Final Blood Blood Culture - Preliminary Assessment and Plan Plan: Septic shock secondary to infection/dehiscence of a left above-knee surgical wound and right above knee surgical wound. The patient has positive gram- negative septicemia with blood cultures being positive for Klebsiella pneumoniae and E. coli on 09/08/2024. Currently off pressors and the patient is hemodynamically stable and the patient remains on IV Zosyn. Bilateral surgical stump dehiscence for above-knee amputation, status post debridement with cultures being positive for strep group B and Serratia and E. coli on the left and Klebsiella pneumonia with strep group B and E. coli on the right. Surgical debridement has been performed on 09/10/2024 and wound VAC has been applied. Suspicion for osteomyelitis on the right. Vascular surgery is on the case. Hypotension secondary to sepsis, remains on pressors and broad-spectrum antibiotics with IV Zosyn and the patient remains off pressors, hemodynamically stable CHF with impaired LV function with an ejection fraction of 30 to 35%, repeat limited echocardiogram showed an ejection fraction of 20 to 25% from 09/14/2024 Altered mentation/metabolic encephalopathy/delirium. 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 COPD maintained on a combination of Advair and Incruse on outpatient basis Coronary artery disease with previous stent placement in the mid LAD in October 2023 History of right-sided pleural effusion with a previous thoracentesis on the right, exudate with negative cytology Severe peripheral vascular disease as revealed on the previous CTA of the aorta with runoff and the patient has bilateral above-knee amputations Chronic and ongoing tobacco smoking History of CVA Suspect relative adrenal insufficiency, currently on stress dose hydrocortisone Hypothyroidism currently on Synthroid Transaminitis: Improved Elevated troponins MARCY likely secondary to hypotension, resolved Subclinical hypothyroidism History of hypertension History of hyperlipidemia Delirium, recovered and the mental status is back to normal Non-anion gap metabolic acidosis, recovered Plan: Clinically and hemodynamically stable Currently on 2 L of oxygen by nasal cannula Normal mentation, having occasional hallucinations. Overall mental status is improved. Able to swallow Advance diet as tolerated Currently off pressors and the patient has been transferred out of the intensive care unit Continue Synthroid 75 mcg daily Continue midodrine Continue IV Zosyn Repeat procalcitonin level is improving Continue to follow
--- NOTE | 2024-09-18 22:27 | CDI ---
Documentation Clarification Form Date: 09/18/2024 10:01:00 PM From: Ami Portillo RN, CCDS Phone: [phone] Admit Date: 09/08/2024 02:31:00 PM Patient Name: Ni Seay Visit Number: [id number] Discharge Date: ATTENTION: The Clinical Documentation Specialists (CDI) and [facility] Coding Staff appreciate your assistance in clarifying documentation. Please respond to the clarification below the line at the bottom and electronically sign. The CDI & [facility] Coding staff will review the response and follow-up if needed. Please note: Queries are made part of the Legal Health Record. If you have any questions, please contact the author of this message via ITS. Doctor. Toño Ho Unspecified anemia is documented in the progress notes starting on 09/14/24 Additional specificity regarding the type, acuity of anemia is requested. History/Risk Factors: Hyperlipidemia, Hypertension, Hyperlipidemia, Hypertension, Clinical indicators: 69-year-old female found to have bilateral above-knee amputation wound dehiscence. She was ruled in for sepsis with WBC 11.3 , 26.2, She is on ASA 81 mg, and Brilinta 90 mg bid. 09/08 HGB 9.8, HCT 30.7 /3 HGB 7.4 , HCT 23.3 / HGB 10.3, HCT 32.2 6 HGB 8.4, HCT 27.0 /8 HGB 6.1, HCT 19.2 /8 HGB 8.3, HCT 25.8 Treatment: Cardiac/Telemetry monitoring Transfuse 1 unit packed red blood cells Monitor CBC daily, per orders Please clarify the type and acuity of anemia: [ ] Acute blood loss anemia [ x] Acute on chronic blood loss anemia [ ] Chronic blood loss anemia [ ] Drug induced anemia [ ] Unable to determine [ ] Other, please specify (Template Last Revised: October 2020) MTDD
[2024-09-19 08:39] LABS: Anisocytosis Slight; Basophils % (A) 0 %; Eosinophils % (A) 0 %; HCT 27.3 % (34.0-46.0); HGB 8.5 gm/dL (11.4-16.0); Hypochromasia Marked; Lymphocytes # (A) 0.9 k/uL (1.0-4.8); Lymphocytes % (A) 9 %; MCH 30.6 pg (25.0-35.0); Macrocytosis Slight; Monocytes # (A) 0.2 k/uL (0-1.0); Monocytes % (A) 2 %; Neutrophils # (A) 9.6 k/uL (1.3-7.7); Neutrophils % (A) 89 %; Platelet Count 142 k/uL (150-450); Poikilocytosis Slight; RBC 2.76 m/uL (3.80-5.40); RDW 17.1 % (11.5-15.5); WBC 10.8 k/uL (3.8-10.6)
[2024-09-19 08:42] LABS: MCV 98.7 fL (80.0-100.0)
[2024-09-19 09:07] LABS: ALT 123 U/L (4-34); AST 337 U/L (14-36); African American GFR (CKD) 69 (>60 ml/min/1.73 sqM); Albumin 2.1 g/dL (3.5-5.0); Alkaline Phosphatase 239 U/L (38-126); Anion Gap 12 mmol/L; Blood Urea Nitrogen 19 mg/dL (7-17); Calcium 7.5 mg/dL (8.4-10.2); Carbon Dioxide 18 mmol/L (22-30); Chloride 118 mmol/L (98-107); Glucose 63 mg/dL (74-99); Non-African American GFR(CKD) 60 (>60 ml/min/1.73 sqM); Sodium 148 mmol/L (137-145); Total Bilirubin 0.8 mg/dL (0.2-1.3); Total Protein 5.1 g/dL (6.3-8.2)
[2024-09-19 09:24] LABS: Potassium 2.7 mmol/L (3.5-5.1)
[2024-09-19] MEDS ORDERED: Potassium Replacement Protocol 1 EACH MISC MISCELLANE PRN ×2 (09:33→09:35)
[2024-09-19] MEDS: POTASSIUM CHLORIDE ER 20 MEQ TAB.ER PO SCH (09:53)
[2024-09-19 11:13] LABS: Glucose,Whole Blood 60 mg/dL (70-110)
[2024-09-19 11:37] LABS: Glucose,Whole Blood 60 mg/dL (70-110)
[2024-09-19] MEDS: DEXTROSE 50% SYRINGE 50 ML IVP STA (11:39)
[2024-09-19 12:08] LABS: Glucose,Whole Blood 116 mg/dL (70-110)
--- NOTE | 2024-09-19 12:54 | P.PN ---
Subjective Progress Note Date: 09/19/24 On 09/14/2023, this 69-year-old female patient is being seen for a follow-up in the intensive care unit where she was hospitalized for cellulitis and secondary septicemia. The patient is known to have coronary artery disease, hypertension, hyperlipidemia, and previous right above-knee amputation and subsequent left above-knee amputation. The patient's blood cultures were positive for E. coli and Klebsiella at the time of admission and the patient was quite septic. She stands. EGD and debridement completed and she is was seen by vascular surgery osteomyelitis of her right femur and the patient underwent surgical debridement of the bilateral above-knee amputation wounds and wound VAC was placed on both sides. The patient did have wound dehiscence bilaterally. The x-ray of the right femur showed haziness in the right stump suspicious for osteomyelitis. Left side was essentially within normal limits. The wound cultures from the left were positive for strep group B, Serratia marcescens and E. coli in the cultures from the right were positive for E. coli and strep group B. Based on this, the patient was given broad-spectrum antibiotics and the patient is currently on IV cefepime. Hemodynamically, the patient is still requiring low- dose pressors. She remains on lactated Ringer at rate of 20 cc an hour. She is also on midodrine 10 mg p.o. 3 times daily. She was also started on hyd rocortisone due to concerns of adrenal sufficiency. Serum cortisol at baseline was 10.6. Blood work from today shows a WBC count of 12.8 with hemoglobin 10.3 and a platelet count of 183. BUN is 17 with a creatinine of 0.89 and sodium levels at 136 and a potassium level is at 4.2. LFTs have been downtrending with an AST of 84, ALT of 52 and alkaline phosphatase elevated at 490, probably related to underlying osteomyelitis. Procalcitonin level was 22.7 at the time of admission. TSH was at 7.3 at time of admission and the patient is currently on levothyroxine 75 mcg p.o. daily. Her most recent echocardiogram from October 2023 showed impaired LV function with an ejection fraction of 30 to 35% along with mild pulmonary hypertension. She is currently on 2 L of oxygen by nasal cannula. She is on LR at 75 cc / hr. She is on Ne at 0.01 mc/kg/min. On 09/15/2024, the patient remains confused. She is nonverbal. She opens her eyes spontaneously. She looks around. She grimaces and she withdraws to painful stimulation. Nevertheless, she does not initiate any conversation. She is not eating and she is unable to swallow. Meanwhile, hemodynamically, the patient is improved and the patient is currently off pressors for the past 24 hours. She remains on a bicarb infusion at a rate of 50 cc an hour. Hemoglobin stable at 7.3. Her procalcitonin level is dropped from 22 down to 3. Rest of the blood work shows a white cell count of 13.2 with a hemoglobin of 7.3 and a platelet count of 119. Sodium is at 140, potassium is at 2.8 that is to be replaced with a BUN of 24 and creatinine 1.1. Serum bicarb is at 18. The patient remains on IV Zosyn. Rest of the medication remains unchanged. Remains on stress dose hydrocortisone. Noted hemodynamically, the patient is off pressors. Limited echocardiogram was ordered to reevaluate LV function and the patient ejection fraction is currently in the order of 20 to 25% and the patient has severe impairment of the LV function. Carotid Dopplers were also performed and the patient was found to have known left internal carotid artery occlusion and moderate 50 to 69% occlusion in the right ICA. 09/16/2024, the patient is being seen for a follow-up. This morning, the patient is awake alert and communicating. No confusion. No altered mentation. There has been significant improvement in mentation over the past 24 hours. Hemod ynamically stable. Remains on the same antibiotic coverage and the patient remains on IV Zosyn. Afebrile. No pressors for now. The white cell count of 10.9 with a hemoglobin 6.1 and the patient will need a unit of packed RBC. BUN is 22 with a creatinine of 1.07 and a sodium levels at 143. The patient is also on a bicarb infusion and serum bicarb is up to 23 and this will be further discontinued. She is currently on room air oxygen. Afebrile. Hemodynamically stable. On 09/17/2024, the patient is having some occasional hallucination. Awake alert and communicating. She was transferred out of the intensive care unit yesterday. She remains on room air oxygen with a pulse ox of 93%. She remains on the same antibiotic coverage and the patient remains on IV Zosyn. No fever. No hemodynamic instability and the patient's blood pressure is essentially stabilized. She was taken off the IV hydrocortisone. The white cell count is 11 with a hemoglobin 9.3 and a platelet count of 131. No evidence of any GI bleeding. ID is on the case. Tolerating diet. Able to swallow. On 09/18/2024, patient is being seen for a follow-up. Resting comfortably in bed. No specific complaints. Hemodynamically stable. Remains on the same antibiotic coverage which include IV Zosyn. Labs were noted. Hemoglobin is at 8.3 and a platelet count is at 131 from 09/16/2024. No new labs are available f rom today. She remains on 2 L of oxygen by nasal cannula. At times, having hallucinations. No significant confusion. No focal neurological deficits. The patient is still lethargic and weak. Overall she is feeling better. On 09/19/2024, the patient remains hemodynamically stable without any significant complaints. No change in her condition. Remains on antibiotics. White cell count of 10.8 with a hemoglobin of 8.5 and and sodium levels at 148 with a potassium level of 2.7 that is to be replaced. BUN is 19 with a creatinine of 0.9. Serum bicarb at 18. Remains on IV Zosyn. Remains on room air oxygen with a pulse ox of 98%. No other significant events overnight. Objective - Vital Signs Vital signs: Vital Signs Temp 97.6 F 09/19/24 09:48 Pulse 103 H 09/19/24 09:48 Resp 20 09/19/24 09:48 BP 138/77 09/19/24 09:48 Pulse Ox 97 09/19/24 09:48 FiO2 1 09/10/24 00:00 Intake & Output 09/18/24 09/19/24 09/19/24 18:59 06:59 18:59 Intake Total 240 Output Total 650 Balance -410 Weight 51.2 kg Intake: IV 140 0.9 @ KVO 120 Invasive Line 3 20 Intake, IV Titration 100 Amount Piperacillin-Tazobactam 3 100 .375 gm In Sodium Chloride 0.9% 100 ml @ 25 mls/hr IVPB Q8H [facility] Rx#: [id number] Output: Urine 650 Uretheral (Infante) 650 Other: Voiding Method Indwelling Catheter Indwelling Catheter # Bowel Movements 2 2 - Exam GENERAL: A 69-year-old female patient, alert and oriented x3, not in any acute distress. Well developed, well nourished. On room air oxygen HEENT: Pupils are round and equally reacting to light. EOMI. No scleral icterus. No conjunctival pallor. Normocephalic, atraumatic. No pharyngeal erythema. No thyromegaly. CARDIOVASCULAR: S1 and S2 present. No murmurs, rubs, or gallops. PULMONARY: Chest is clear to auscultation, no wheezing , no crackles. ABDOMEN: Soft, nondistended, normoactive bowel sounds. No palpable organomegaly. Suprapubic tenderness. Infante catheter in place MUSCULOSKELETAL: No joint swelling or deformity. EXTREMITIES: No cyanosis, clubbing. Swelling/minimal edema of the upper extr emities bilaterally. Bilateral AKA with superficial wounds of the bilateral stumps with some purulent discharge in the base which looks dried. Mild tenderness in the right AKA stump distally NEUROLOGICAL: Awake and alert and communicating SKIN: No rashes. no petechiae. - Labs CBC & Chem 7: 09/19/24 08:06 09/19/24 08:06 Labs: Abnormal Lab Results - Last 24 Hours (Table) 09/19/24 09/19/24 Range/Units 08:06 08:06 WBC 10.8 H (3.8-10.6) k/uL RBC 2.76 L (3.80-5.40) m/uL Hgb 8.5 L (11.4-16.0) gm/dL Hct 27.3 L (34.0-46.0) % RDW 17.1 H (11.5-15.5) % Plt Count 142 L (150-450) k/uL Neutrophils # 9.6 H (1.3-7.7) k/uL Lymphocytes # 0.9 L (1.0-4.8) k/uL Sodium 148 H (137-145) mmol/L Potassium 2.7 L* (3.5-5.1) mmol/L Chloride 118 H (98-107) mmol/L Carbon Dioxide 18 L (22-30) mmol/L BUN 19 H (7-17) mg/dL Glucose 63 L (74-99) mg/dL Calcium 7.5 L (8.4-10.2) mg/dL AST 337 H (14-36) U/L ALT 123 H (4-34) U/L Alkaline Phosphatase 239 H (38-126) U/L Total Protein 5.1 L (6.3-8.2) g/dL Albumin 2.1 L (3.5-5.0) g/dL Assessment and Plan Plan: Septic shock secondary to infection/dehiscence of a left above-knee surgical wound and right above knee surgical wound. The patient has positive gram- negative septicemia with blood cultures being positive for Klebsiella pneumoniae and E. coli on 09/08/2024. Currently off pressors and the patient is hemodynamically stable and the patient remains on IV Zosyn. Bilateral surgical stump dehiscence for above-knee amputation, status post debridement with cultures being positive for strep group B and Serratia and E. coli on the left and Klebsiella pneumonia with strep group B and E. coli on the right. Surgical debridement has been performed on 09/10/2024 and wound VAC has been applied. Suspicion for osteomyelitis on the right. Vascular surgery is on the case. Hypotension secondary to sepsis, remains on pressors and broad-spectrum antibiotics with IV Zosyn and the patient remains off pressors, hemodynamically stable CHF with impaired LV function with an ejection fraction of 30 to 35%, repeat limited echocardiogram showed an ejection fraction of 20 to 25% from 09/14/2024 Altered mentation/metabolic encephalopathy/delirium. 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 COPD maintained on a combination of Advair and Incruse on outpatient basis Coronary artery disease with previous stent placement in the mid LAD in October 2023 History of right-sided pleural effusion with a previous thoracentesis on the right, exudate with negative cytology Severe peripheral vascular disease as revealed on the previous CTA of the aorta with runoff and the patient has bilateral above-knee amputations Chronic and ongoing tobacco smoking History of CVA Suspect relative adrenal insufficiency, currently on stress dose hydrocortisone Hypothyroidism currently on Synthroid Transaminitis: Improved Elevated troponins MARCY likely secondary to hypotension, resolved Subclinical hypothyroidism History of hypertension History of hyperlipidemia Delirium, recovered and the mental status is back to normal Non-anion gap metabolic acidosis Hypokalemia, K needs to be replaced Plan: Clinically and hemodynamically stable Currently on room air oxygen Normal mentation, having occasional hallucinations. Overall mental status is improved. Continue Synthroid 75 mcg daily Continue midodrine Continue IV Zosyn Repeat procalcitonin level is improving Pulmonary critical care services will sign off.
--- NOTE | 2024-09-19 14:02 | P.PN ---
Subjective Progress Note Date: 09/19/24 This is a pleasant 69 years old female who was sent from [facility] for altered mental status. 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 Since 07/2024. Patient also states she vomited once earlier. Patient fully awake and oriented, can answer questions appropriately and follows command, she does not look in distress. On admission her blood pressure was on the low side 68/53 5 sh she need to be transferred to ICU for start pressors, currently her blood pressure is better 102/50. She is having fever 103 on admission. She denies chest pain or dyspnea no right upper quadrant abdominal pain. No reports of diarrhea. Urine looks dark in the Infante catheter. No dysuria for the patient. Labs reviewed she has unremarkable CBC, BMP and LFT. Urinalysis is highly suspicious for infection Urine culture is pending Abdominal ultrasound showing cholelithiasis with minimal cholecystic fluid with thickening of the adjacent gallbladder suspicious for acute cholecystitis, however clinically does not behave like inflamed gallbladder Femur x-ray showing right AKA stump with hazy ostomy margin suspicious for osteomyelitis by the left AKA showing sharp ostomy margins. Chest x-ray showed combination of COPD and chronic CHF. Patient currently treated with broad-spectrum antibiotics with cefepime and IV vancomycin. Patient also on Ringer lactate at 130 mL/h She is continued on aspirin and Brilinta. 1/2 Patient is up in bed getting breathing treatment fully awake and oriented Still complaining from suprapubic pain and tenderness, Infante catheter is in place and picking up her urine output, overnight her urine output was low so increase her fluid currently she is getting Ringer lactate at 150 mL/h also she is getting Levophed at 0.06. Her urine output this morning improved and curre ntly 50-100. Overnight they tried to wean off Levophed and blood pressure dropped. They will try again this morning. Patient remains on antibiotics cefepime and IV vancomycin for her sepsis, several sources are suspected. Most likely the source is acute urinary tract infection I spoke with Dr. Rg this morning, he still suspect there is acute cholecystitis at the source of her sepsis and he recommended cholecystectomy but not currently because of her clinical condition and because she has been on Brilinta Also she has infected stump wounds in both legs and she is going for OR today especially on the right side however per vascular surgery it is unlikely to be the source of infection. Currently patient n.p.o. for the procedure 09/11 Patient remains awake and alert sitting up in bed. Mentation at baseline. Both AKA stumps are in a dressing after she underwent debridement yesterday, p arents is more severe in these areas as patient explains. However patient still complains from suprapubic and RUQ tenderness today. No other new complaint. The patient She remains on IV vancomycin and cefepime and dual antiplatelet therapy with aspirin and Brilinta from home Her numbers are improving with WBC down 26, 18 and today 11.3, creatinine 1.1 on admission came back to 0.8 Hemoglobin also came down to 9.6 down to 7.4 but this is after debridement and will continue close monitoring and will transfuse if hemoglobin less than 7 Liver enzymes trending down as well Patient continue to need very close monitoring in the ICU with frequent rounding 09/12. Patient seen and examined. Patient is alert, being weaned off the Levophed. Patient is slightly confused. 09/13. Patient seen and examined. Blood work done showed WBC 12.8, hemoglobin 10.3, platelet count 183 sodium 136, potassium 4.2, BUN 17, creatinine 0.89. No acute issues over 09/14 Patient today remains in the ICU however she is very confused, looks mildly agitated and does not answer questions and follow commands. However her abdominal tenderness significantly improved, there is no suprapubic tenderness or RUQ tenderness And both AKA wounds are in dressing and looks. Patient evaluated by neurology service, ordered carotid Doppler showing with known left ICA stenosis and occlusion while right ICA is 50 to 69% occlusion Patient remains on broad-spectrum antibiotic,'s antibiotic switch from cefepime IV vancomycin to Zosyn. His leukocyte count worsened up to 21,000 09/15 Patient remains in the ICU She is still confused and drowsy, she is not answering questions or follows command Her abdomen looks soft with mild suprapubic tenderness Urinary catheter in place. Antibiotic no was adjusted to Zosyn, leukocytosis improved down to 13,000, which is improved Hemoglobin dropped to 7.3 will need close monitoring Patient remains on sodium bicarb drip at 50 mL/h 09/16 Patient is more awake and interactive, she is still somewhat lethargic but significantly improved compared to the last 2 days, she can tell me her name and when she reoriented about time place person she looks to remember. She does not have abdominal pain abdomen is soft Infante catheter in place Today she is developing diarrhea, C. difficile was checked was negative, lung nodule as needed is ordered however we will discontinue Colace patient she was taking. Patient also on Senokot-S as needed. She remains on Zosyn with looks working well for her with leukocytosis improving and mentation is improving 09/17 Patient is awake alert today She is complaining from abdominal pain and diarrhea. However fecal management system was discontinued and she had only 2 loose bowel movement overnight. C. difficile is negative. Patient already on Questran On examination she have mild generalized tenderness little bit on the more on the right side but there is no guarding or rebound tenderness. Patient remains on Zosyn Aspirin ordered but not given. However she is taking the Brilinta. Blood pressure is improved and I do not think she needs midodrine anymore so will be discontinue 09/18. Patient seen and examined. States she feels better. Still complain lethargic and weakness 09/19. Patient seen and examined. Patient blood sugars are low this morning, patient is not eating much. Potassium this morning was 2.7, replacement ordered REVIEW OF SYSTEMS: CONSTITUTIONAL: No fever, no malaise,. CARDIOVASCULAR: No chest pain, no palpitations, no syncope. PULMONARY: No shortness of breath, no cough, GASTROINTESTINAL: No diarrhea, no nausea, no vomiting, no abdominal pain. NEUROLOGICAL: No headaches, no weakness, PHYSICAL EXAMINATION: GENERAL: The patient is alert, chronically ill looking HEENT: Pupils are round and equally reacting to light. EOMI. No scleral icterus. No conjunctival pallor. Normocephalic, atraumatic. No pharyngeal erythema. No thyromegaly. CARDIOVASCULAR: S1 and S2 present. No murmurs, rubs, or gallops. PULMONARY: Diminished breath sound at the bases bilaterally, no wheezing or crackles. ABDOMEN: Soft, nontender, nondistended, normoactive bowel sounds. No palpable organomegaly. MUSCULOSKELETAL: No joint swelling or deformity. EXTREMITIES: Bilateral AKA with bandages seen, wound VAC seen NEUROLOGICAL: Gross neurological examination did not reveal any focal deficits. SKIN: No rashes. Assessment and plan Cellulitis and infections of bilateral AKA stumps, there is suspicion of osteomyelitis at the distal margins of the right stump per x-ray. Status post I&D by vascular surgery on 09/10 Acute urinary tract infection with suprapubic tenderness. Urine cultures pending Gallbladder disease with gallstones, but there is suspicion of acute cholecystitis Severe sepsis/septic shock, present on admission, improving Peripheral artery disease Monitor vital signs Monitor CBC Monitor CMP Continue telemetry monitoring Follow-up on blood cultures Continue wound care Continue pain management Continue IV Zosyn Continue aspirin, Lipitor, Brilinta Potassium replacement ordered Continue Farxiga Continue Entresto ID following Vascular surgery following Labs and medication were reviewed.. Continue same treatment. Continue with symptomatic treatment. Resume home medication. Monitor labs and vitals. DVT and GI prophylaxis. Further recommendations as per clinical course of the patient Dictation was produced using [employer] dictation software. please excuse any grammatical, word or spelling errors. Objective - Vital Signs Vital signs: Vital Signs Temp 97.6 F 09/19/24 09:48 Pulse 69 09/19/24 12:08 Resp 18 09/19/24 12:08 BP 141/74 09/19/24 12:08 Pulse Ox 98 09/19/24 12:08 FiO2 1 09/10/24 00:00 Intake & Output 09/18/24 09/19/24 09/19/24 18:59 06:59 18:59 Intake Total 240 240 Output Total 650 450 Balance -410 -210 Weight 51.2 kg Intake: IV 140 0.9 @ KVO 120 Invasive Line 3 20 Intake, IV Titration 100 Amount Piperacillin-Tazobactam 3 100 .375 gm In Sodium Chloride 0.9% 100 ml @ 25 mls/hr IVPB Q8H REPLACED BY [facility] Rx#: [id number] Oral 240 Output: Urine 650 450 Uretheral (Infante) 650 Other: Voiding Method Indwelling Catheter Indwelling Catheter Indwelling Catheter # Bowel Movements 2 2 1 - Labs CBC & Chem 7: 09/19/24 08:06 09/19/24 08:06 Labs: Abnormal Lab Results - Last 24 Hours (Table) 09/19/24 09/19/24 09/19/24 Range/Units 08:06 08:06 11:12 WBC 10.8 H (3.8-10.6) k/uL RBC 2.76 L (3.80-5.40) m/uL Hgb 8.5 L (11.4-16.0) gm/dL Hct 27.3 L (34.0-46.0) % RDW 17.1 H (11.5-15.5) % Plt Count 142 L (150-450) k/uL Neutrophils # 9.6 H (1.3-7.7) k/uL Lymphocytes # 0.9 L (1.0-4.8) k/uL Sodium 148 H (137-145) mmol/L Potassium 2.7 L* (3.5-5.1) mmol/L Chloride 118 H (98-107) mmol/L Carbon Dioxide 18 L (22-30) mmol/L BUN 19 H (7-17) mg/dL Glucose 63 L (74-99) mg/dL POC Glucose (mg/dL) 60 L (70-110) mg/dL Calcium 7.5 L (8.4-10.2) mg/dL AST 337 H (14-36) U/L ALT 123 H (4-34) U/L Alkaline Phosphatase 239 H (38-126) U/L Total Protein 5.1 L (6.3-8.2) g/dL Albumin 2.1 L (3.5-5.0) g/dL 09/19/24 09/19/24 Range/Units 11:35 12:06 WBC (3.8-10.6) k/uL RBC (3.80-5.40) m/uL Hgb (11.4-16.0) gm/dL Hct (34.0-46.0) % RDW (11.5-15.5) % Plt Count (150-450) k/uL Neutrophils # (1.3-7.7) k/uL Lymphocytes # (1.0-4.8) k/uL Sodium (137-145) mmol/L Potassium (3.5-5.1) mmol/L Chloride (98-107) mmol/L Carbon Dioxide (22-30) mmol/L BUN (7-17) mg/dL Glucose (74-99) mg/dL POC Glucose (mg/dL) 60 L 116 H (70-110) mg/dL Calcium (8.4-10.2) mg/dL AST (14-36) U/L ALT (4-34) U/L Alkaline Phosphatase (38-126) U/L Total Protein (6.3-8.2) g/dL Albumin (3.5-5.0) g/dL Microbiology - Last 24 Hours (Table) 09/18/24 07:02 Blood Culture - Preliminary Blood
--- NOTE | 2024-09-19 15:26 | P.PN ---
Subjective Progress Note Date: 09/19/24 Principal diagnosis: Reason for follow-up is sepsis bacteremia Patient is a 69-year-old female with multiple comorbidity patient did have a significant PAD and did have a bilateral [id number] amputations with subsequent dehiscence of the wound patient has been sent from the local senior care to the hospital with fever, patient be diagnosed with sepsis admitted to the ICU did have a positive blood culture with Klebsiella. Patient is status post surgical debridement of bilateral AKA wound and application of wound VAC culture has been obtained On today's evaluation that is 09/19/2024, patient did not have any fever and denies any chills, patient is breathing comfortably on room air, patient with no chest pain or cough patient did not have any abdominal pain nausea vomiting or any loose stools Patient white count is down to 10.8, creatinine 0.96 Objective - Vital Signs Vital signs: Vital Signs Temp 97.6 F 09/19/24 09:48 Pulse 103 H 09/19/24 09:48 Resp 20 09/19/24 09:48 BP 138/77 09/19/24 09:48 Pulse Ox 97 09/19/24 09:48 FiO2 1 09/10/24 00:00 Intake & Output 09/18/24 09/19/24 09/19/24 18:59 06:59 18:59 Intake Total 240 Output Total 650 Balance -410 Weight 51.2 kg Intake: IV 140 0.9 @ KVO 120 Invasive Line 3 20 Intake, IV Titration 100 Amount Piperacillin-Tazobactam 3 100 .375 gm In Sodium Chloride 0.9% 100 ml @ 25 mls/hr IVPB Q8H [facility] Rx#: [id number] Output: Urine 650 Uretheral (Infante) 650 Other: Voiding Method Indwelling Catheter Indwelling Catheter # Bowel Movements 2 2 - Exam GENERAL DESCRIPTION: An elderly female lying in bed in no distress RESPIRATORY SYSTEM: Unlabored breathing , decreased breath sounds at bases HEART: S1 S2 regular rate and rhythm , ABDOMEN: Soft , no tenderness EXTREMITIES: Bilateral AKA stump wound is covered with a wound VAC - Labs CBC & Chem 7: 09/19/24 08:06 09/19/24 08:06 Labs: Abnormal Lab Results - Last 24 Hours (Table) 09/19/24 09/19/24 09/19/24 Range/Units 08:06 08:06 11:12 WBC 10.8 H (3.8-10.6) k/uL RBC 2.76 L (3.80-5.40) m/uL Hgb 8.5 L (11.4-16.0) gm/dL Hct 27.3 L (34.0-46.0) % RDW 17.1 H (11.5-15.5) % Plt Count 142 L (150-450) k/uL Neutrophils # 9.6 H (1.3-7.7) k/uL Lymphocytes # 0.9 L (1.0-4.8) k/uL Sodium 148 H (137-145) mmol/L Potassium 2.7 L* (3.5-5.1) mmol/L Chloride 118 H (98-107) mmol/L Carbon Dioxide 18 L (22-30) mmol/L BUN 19 H (7-17) mg/dL Glucose 63 L (74-99) mg/dL POC Glucose (mg/dL) 60 L (70-110) mg/dL Calcium 7.5 L (8.4-10.2) mg/dL AST 337 H (14-36) U/L ALT 123 H (4-34) U/L Alkaline Phosphatase 239 H (38-126) U/L Total Protein 5.1 L (6.3-8.2) g/dL Albumin 2.1 L (3.5-5.0) g/dL 09/19/24 Range/Units 11:35 WBC (3.8-10.6) k/uL RBC (3.80-5.40) m/uL Hgb (11.4-16.0) gm/dL Hct (34.0-46.0) % RDW (11.5-15.5) % Plt Count (150-450) k/uL Neutrophils # (1.3-7.7) k/uL Lymphocytes # (1.0-4.8) k/uL Sodium (137-145) mmol/L Potassium (3.5-5.1) mmol/L Chloride (98-107) mmol/L Carbon Dioxide (22-30) mmol/L BUN (7-17) mg/dL Glucose (74-99) mg/dL POC Glucose (mg/dL) 60 L (70-110) mg/dL Calcium (8.4-10.2) mg/dL AST (14-36) U/L ALT (4-34) U/L Alkaline Phosphatase (38-126) U/L Total Protein (6.3-8.2) g/dL Albumin (3.5-5.0) g/dL Assessment and Plan (1) Bilateral lower leg cellulitis Current Visit: Yes Status: Acute Code(s): L03.116 - CELLULITIS OF LEFT LOWER LIMB; L03.115 - CELLULITIS OF RIGHT LOWER LIMB SNOMED Code(s): 709404405 (2) Sepsis Current Visit: Yes Status: Acute Code(s): A41.9 - SEPSIS, UNSPECIFIED ORGANISM SNOMED Code(s): 20590833 (3) Bacteremia Current Visit: Yes Status: Acute Code(s): R78.81 - BACTEREMIA SNOMED Code(s): 7896612 Plan: 1patient is in the hospital with sepsis in this patient with a fever tachycardia elevated white count source is likely bilateral AKA wound and concern for osteomyelitis to the right AKA stump site however the patient also have elevated liver enzyme and there was a history of vomiting underlying abdominal source monitor excluded. 2patient has been evaluated by vascular surgery and is status post debridement of the wound and deep culture completed on 09/10/2024 culture has been E. coli strep and Serratia marcescens 3patient does have a positive blood culture with Klebsiella, repeat blood cultures are negative 4 ultrasound of the abdomen suggestive of possible cholecystitis General Surgery is being consulted recommending medical treatment at this point 5patient PICC line she will need a 5-week course of IV Zosyn on discharge for osteomyelitis involving bilateral AKA stump with multiple gram-negative dis cussed with admitting team Dictation was produced using [employer] dictation software. please excuse any grammatical, word or spelling errors. Time with Patient: Less than 30
--- NOTE | 2024-09-19 15:26 | P.PN ---
Subjective Progress Note Date: 09/18/24 Principal diagnosis: Reason for follow-up is sepsis bacteremia Patient is a 69-year-old female with multiple comorbidity patient did have a significant PAD and did have a bilateral [id number] amputations with subsequent dehiscence of the wound patient has been sent from the local long-term to the hospital with fever, patient be diagnosed with sepsis admitted to the ICU did have a positive blood culture with Klebsiella. Patient is status post surgical debridement of bilateral AKA wound and application of wound VAC culture has been obtained On today's evaluation that is 09/18/2024, the patient continues to be afebrile, the patient is on room air and breathing comfortably, the Pt denies having any chest pain or cough, the patient denies having any abdominal pain no vomiting and diarrhea has slowed down. Patient white count is 11.9 Objective - Vital Signs Vital signs: Vital Signs Temp 97.8 F 09/18/24 20:51 Pulse 104 H 09/18/24 20:51 Resp 17 09/18/24 20:51 BP 147/81 09/18/24 20:51 Pulse Ox 95 09/18/24 20:51 FiO2 1 09/10/24 00:00 Intake & Output 09/18/24 09/18/24 09/19/24 06:59 18:59 06:59 Intake Total 240 Output Total 650 Balance -410 Weight 51.2 kg Intake: IV 140 0.9 @ KVO 120 Invasive Line 3 20 Intake, IV Titration 100 Amount Piperacillin-Tazobactam 3 100 .375 gm In Sodium Chloride 0.9% 100 ml @ 25 mls/hr IVPB Q8H [facility] Rx#: [id number] Output: Urine 650 Uretheral (Infante) 650 Other: Voiding Method Indwelling Catheter Indwelling Catheter # Bowel Movements 2 2 - Exam GENERAL DESCRIPTION: An elderly female lying in bed in no distress RESPIRATORY SYSTEM: Unlabored breathing , decreased breath sounds at bases HEART: S1 S2 regular rate and rhythm , ABDOMEN: Soft , no tenderness EXTREMITIES: Bilateral AKA stump wound is covered with a wound VAC - Labs CBC & Chem 7: 09/19/24 08:06 09/19/24 08:06 Assessment and Plan (1) Bilateral lower leg cellulitis Current Visit: Yes Status: Acute Code(s): L03.116 - CELLULITIS OF LEFT LOWER LIMB; L03.115 - CELLULITIS OF RIGHT LOWER LIMB SNOMED Code(s): 851158615 (2) Sepsis Current Visit: Yes Status: Acute Code(s): A41.9 - SEPSIS, UNSPECIFIED ORGANISM SNOMED Code(s): 61954246 (3) Bacteremia Current Visit: Yes Status: Acute Code(s): R78.81 - BACTEREMIA SNOMED Code(s): 6184664 Plan: 1patient is in the hospital with sepsis in this patient with a fever tachycardia elevated white count source is likely bilateral AKA wound and concern for osteomyelitis to the right AKA stump site however the patient also have elevated liver enzyme and there was a history of vomiting underlying abdomi nal source monitor excluded. 2patient has been evaluated by vascular surgery and is status post debridement of the wound and deep culture completed on 09/10/2024 culture has been E. coli strep and Serratia marcescens 3patient does have a positive blood culture with Klebsiella, repeat blood cultures are negative 4 ultrasound of the abdomen suggestive of possible cholecystitis General Surgery is being consulted recommending medical treatment at this point 5patient PICC line as she will need outpatient antibiotic in the form of Zosyn Dictation was produced using [employer] software. please excuse any grammatical, word or spelling errors. Time with Patient: Less than 30
[2024-09-19 21:00] LABS: Glucose,Whole Blood 118 mg/dL (70-110)
[2024-09-19] MEDS: LOPERAMIDE 2 MG CAP PO PRN (22:01)
[2024-09-19] MEDS: LORazepam 2 MG/ML INJ IV PRN (22:10)
[2024-09-20 07:54] LABS: Anisocytosis Slight; Basophils % (A) 0 %; Eosinophils # (A) 0.1 k/uL (0-0.7); Eosinophils % (A) 0 %; HCT 25.7 % (34.0-46.0); HGB 8.1 gm/dL (11.4-16.0); Hypochromasia Marked; Lymphocytes # (A) 0.6 k/uL (1.0-4.8); Lymphocytes % (A) 4 %; MCHC 31.4 g/dL (31.0-37.0); MCV 98.6 fL (80.0-100.0); Macrocytosis Slight; Mean Platelet Volume 9.2; Monocytes # (A) 0.2 k/uL (0-1.0); Monocytes % (A) 1 %; Neutrophils # (A) 16.3 k/uL (1.3-7.7); Neutrophils % (A) 95 %; Platelet Count 140 k/uL (150-450); Poikilocytosis Slight; RDW 18.1 % (11.5-15.5); WBC 17.2 k/uL (3.8-10.6)
[2024-09-20 08:12] LABS: ALT 138 U/L (4-34); AST 425 U/L (14-36); African American GFR (CKD) 60 (>60 ml/min/1.73 sqM); Albumin 2.1 g/dL (3.5-5.0); Alkaline Phosphatase 215 U/L (38-126); Anion Gap 13 mmol/L; Blood Urea Nitrogen 22 mg/dL (7-17); Calcium 7.4 mg/dL (8.4-10.2); Carbon Dioxide 16 mmol/L (22-30); Chloride 120 mmol/L (98-107); Glucose 123 mg/dL (74-99); Non-African American GFR(CKD) 52 (>60 ml/min/1.73 sqM); Potassium 3.5 mmol/L (3.5-5.1); Sodium 149 mmol/L (137-145); Total Bilirubin 0.7 mg/dL (0.2-1.3); Total Protein 5.1 g/dL (6.3-8.2)
[2024-09-20 09:04] LABS: Glucose,Whole Blood 126 mg/dL (70-110)
[2024-09-20] MEDS: DEXTROSE 5% IN WATER 1,000 ML IV SCH (09:27)
--- NOTE | 2024-09-20 10:26 | XR ---
EXAMINATION TYPE: XR chest 1V portable DATE OF EXAM: 09/20/2024 9:41 AM COMPARISON: 09/08/2024 CLINICAL INDICATION: Female, 69 years old with history of elevated wbc, TECHNIQUE: XR chest 1V portable view(s) obtained. FINDINGS: The heart size is enlarged. The pulmonary vasculature is normal. Minimal scattered linear opacities are present. Correlate for atelectasis. Some blunting of the costo phrenic angles is present. Small effusions may be present. PICC line enters on the right with the tip in the right atrium IMPRESSION: 1. Mild scattered platelike atelectasis. 2. Cardiomegaly. 3. Minimal bilateral pleural effusions [facility], , 09/20/2024 10:24 AM
--- NOTE | 2024-09-20 12:58 | P.PN ---
Subjective Progress Note Date: 09/20/24 This is a pleasant 69 years old female who was sent from [facility] for altered mental status. 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 Since 07/2024. Patient also states she vomited once earlier. Patient fully awake and oriented, can answer questions appropriately and follows command, she does not look in distress. On admission her blood pressure was on the low side 68/53 5 sh she need to be transferred to ICU for start pressors, currently her blood pressure is better 102/50. She is having fever 103 on admission. She denies chest pain or dyspnea no right upper quadrant abdominal pain. No reports of diarrhea. Urine looks dark in the Infante catheter. No dysuria for the patient. Labs reviewed she has unremarkable CBC, BMP and LFT. Urinalysis is highly suspicious for infection Urine culture is pending Abdominal ultrasound showing cholelithiasis with minimal cholecystic fluid with thickening of the adjacent gallbladder suspicious for acute cholecystitis, however clinically does not behave like inflamed gallbladder Femur x-ray showing right AKA stump with hazy ostomy margin suspicious for osteomyelitis by the left AKA showing sharp ostomy margins. Chest x-ray showed combination of COPD and chronic CHF. Patient currently treated with broad-spectrum antibiotics with cefepime and IV vancomycin. Patient also on Ringer lactate at 130 mL/h She is continued on aspirin and Brilinta. 1/2 Patient is up in bed getting breathing treatment fully awake and oriented Still complaining from suprapubic pain and tenderness, Infante catheter is in place and picking up her urine output, overnight her urine output was low so increase her fluid currently she is getting Ringer lactate at 150 mL/h also she is getting Levophed at 0.06. Her urine output this morning improved and curre ntly 50-100. Overnight they tried to wean off Levophed and blood pressure dropped. They will try again this morning. Patient remains on antibiotics cefepime and IV vancomycin for her sepsis, several sources are suspected. Most likely the source is acute urinary tract infection I spoke with Dr. Rg this morning, he still suspect there is acute cholecystitis at the source of her sepsis and he recommended cholecystectomy but not currently because of her clinical condition and because she has been on Brilinta Also she has infected stump wounds in both legs and she is going for OR today especially on the right side however per vascular surgery it is unlikely to be the source of infection. Currently patient n.p.o. for the procedure 09/11 Patient remains awake and alert sitting up in bed. Mentation at baseline. Both AKA stumps are in a dressing after she underwent debridement yesterday, p arents is more severe in these areas as patient explains. However patient still complains from suprapubic and RUQ tenderness today. No other new complaint. The patient She remains on IV vancomycin and cefepime and dual antiplatelet therapy with aspirin and Brilinta from home Her numbers are improving with WBC down 26, 18 and today 11.3, creatinine 1.1 on admission came back to 0.8 Hemoglobin also came down to 9.6 down to 7.4 but this is after debridement and will continue close monitoring and will transfuse if hemoglobin less than 7 Liver enzymes trending down as well Patient continue to need very close monitoring in the ICU with frequent rounding 09/12. Patient seen and examined. Patient is alert, being weaned off the Levophed. Patient is slightly confused. 09/13. Patient seen and examined. Blood work done showed WBC 12.8, hemoglobin 10.3, platelet count 183 sodium 136, potassium 4.2, BUN 17, creatinine 0.89. No acute issues over 09/14 Patient today remains in the ICU however she is very confused, looks mildly agitated and does not answer questions and follow commands. However her abdominal tenderness significantly improved, there is no suprapubic tenderness or RUQ tenderness And both AKA wounds are in dressing and looks. Patient evaluated by neurology service, ordered carotid Doppler showing with known left ICA stenosis and occlusion while right ICA is 50 to 69% occlusion Patient remains on broad-spectrum antibiotic,'s antibiotic switch from cefepime IV vancomycin to Zosyn. His leukocyte count worsened up to 21,000 09/15 Patient remains in the ICU She is still confused and drowsy, she is not answering questions or follows command Her abdomen looks soft with mild suprapubic tenderness Urinary catheter in place. Antibiotic no was adjusted to Zosyn, leukocytosis improved down to 13,000, which is improved Hemoglobin dropped to 7.3 will need close monitoring Patient remains on sodium bicarb drip at 50 mL/h 09/16 Patient is more awake and interactive, she is still somewhat lethargic but significantly improved compared to the last 2 days, she can tell me her name and when she reoriented about time place person she looks to remember. She does not have abdominal pain abdomen is soft Infante catheter in place Today she is developing diarrhea, C. difficile was checked was negative, lung nodule as needed is ordered however we will discontinue Colace patient she was taking. Patient also on Senokot-S as needed. She remains on Zosyn with looks working well for her with leukocytosis improving and mentation is improving 09/17 Patient is awake alert today She is complaining from abdominal pain and diarrhea. However fecal management system was discontinued and she had only 2 loose bowel movement overnight. C. difficile is negative. Patient already on Questran On examination she have mild generalized tenderness little bit on the more on the right side but there is no guarding or rebound tenderness. Patient remains on Zosyn Aspirin ordered but not given. However she is taking the Brilinta. Blood pressure is improved and I do not think she needs midodrine anymore so will be discontinue 09/18. Patient seen and examined. States she feels better. Still complain lethargic and weakness 09/19. Patient seen and examined. Patient blood sugars are low this morning, patient is not eating much. Potassium this morning was 2.7, replacement ordered 09/20. Patient seen and examined. Patient is not eating much.Blood work done this morning showed WBC 17.2, hemoglobin 8.1, platelet count 140, sodium 141, potassium 3.5, BUN 22, creatinine 1.08. Currently on room air patient is lethargic. Patient LFTs are elevated, will DC Lipitor. Start patient on D5W REVIEW OF SYSTEMS: CONSTITUTIONAL: No fever, no malaise,. CARDIOVASCULAR: No chest pain, no palpitations, no syncope. PULMONARY: No shortness of breath, no cough, GASTROINTESTINAL: No diarrhea, no nausea, no vomiting, no abdominal pain. NEUROLOGICAL: No headaches, no weakness, PHYSICAL EXAMINATION: GENERAL: The patient is alert, chronically ill looking HEENT: Pupils are round and equally reacting to light. EOMI. No scleral icterus. No conjunctival pallor. Normocephalic, atraumatic. No pharyngeal erythema. No thyromegaly. CARDIOVASCULAR: S1 and S2 present. No murmurs, rubs, or gallops. PULMONARY: Diminished breath sound at the bases bilaterally, no wheezing or crackles. ABDOMEN: Soft, nontender, nondistended, normoactive bowel sounds. No palpable organomegaly. MUSCULOSKELETAL: No joint swelling or deformity. EXTREMITIES: Bilateral AKA with bandages seen, wound VAC seen NEUROLOGICAL: Gross neurological examination did not reveal any focal deficits. SKIN: No rashes. Assessment and plan Cellulitis and infections of bilateral AKA stumps, there is suspicion of osteomyelitis at the distal margins of the right stump per x-ray. Status post I&D by vascular surgery on 09/10 Acute urinary tract infection with suprapubic tenderness. Urine cultures pendin g Gallbladder disease with gallstones, but there is suspicion of acute cholecystitis Severe sepsis/septic shock, present on admission, improving Peripheral artery disease Monitor vital signs Monitor CBC Monitor CMP Continue telemetry monitoring Follow-up on blood cultures Continue wound care Continue pain management Continue IV Zosyn Continue aspirin, Brilinta DC Lipitor for elevated LFTs Start D5W Continue Farxiga Continue Entresto ID following Vascular surgery following Labs and medication were reviewed.. Continue same treatment. Continue with symptomatic treatment. Resume home medication. Monitor labs and vitals. DVT and GI prophylaxis. Further recommendations as per clinical course of the patient Dictation was produced using [employer] dictation software. please excuse any gra mmatical, word or spelling errors. Objective - Vital Signs Vital signs: Vital Signs Temp 97.8 F 09/20/24 08:59 Pulse 99 09/20/24 08:59 Resp 12 09/20/24 08:59 BP 119/69 09/20/24 08:59 Pulse Ox 96 09/20/24 08:59 FiO2 1 09/10/24 00:00 Intake & Output 09/19/24 09/20/24 09/20/24 18:59 06:59 18:59 Intake Total 240 Output Total 450 250 Balance -210 -250 Weight 52 kg Intake: Oral 240 Output: Urine 450 250 Other: Voiding Method Indwelling Catheter Indwelling Catheter # Bowel Movements 1 - Labs CBC & Chem 7: 09/20/24 07:38 09/20/24 07:38 Labs: Abnormal Lab Results - Last 24 Hours (Table) 09/19/24 09/19/24 09/19/24 Range/Units 11:12 11:35 12:06 WBC (3.8-10.6) k/uL RBC (3.80-5.40) m/uL Hgb (11.4-16.0) gm/dL Hct (34.0-46.0) % RDW (11.5-15.5) % Plt Count (150-450) k/uL Neutrophils # (1.3-7.7) k/uL Lymphocytes # (1.0-4.8) k/uL Sodium (137-145) mmol/L Chloride (98-107) mmol/L Carbon Dioxide (22-30) mmol/L BUN (7-17) mg/dL Creatinine (0.52-1.04) mg/dL Glucose (74-99) mg/dL POC Glucose (mg/dL) 60 L 60 L 116 H (70-110) mg/dL Calcium (8.4-10.2) mg/dL AST (14-36) U/L ALT (4-34) U/L Alkaline Phosphatase (38-126) U/L Total Protein (6.3-8.2) g/dL Albumin (3.5-5.0) g/dL 09/19/24 09/20/24 09/20/24 Range/Units 20:58 07:38 07:38 WBC 17.2 H (3.8-10.6) k/uL RBC 2.60 L (3.80-5.40) m/uL Hgb 8.1 L (11.4-16.0) gm/dL Hct 25.7 L (34.0-46.0) % RDW 18.1 H (11.5-15.5) % Plt Count 140 L (150-450) k/uL Neutrophils # 16.3 H (1.3-7.7) k/uL Lymphocytes # 0.6 L (1.0-4.8) k/uL Sodium 149 H (137-145) mmol/L Chloride 120 H (98-107) mmol/L Carbon Dioxide 16 L (22-30) mmol/L BUN 22 H (7-17) mg/dL Creatinine 1.08 H (0.52-1.04) mg/dL Glucose 123 H (74-99) mg/dL POC Glucose (mg/dL) 118 H (70-110) mg/dL Calcium 7.4 L (8.4-10.2) mg/dL AST 425 H (14-36) U/L ALT 138 H (4-34) U/L Alkaline Phosphatase 215 H (38-126) U/L Total Protein 5.1 L (6.3-8.2) g/dL Albumin 2.1 L (3.5-5.0) g/dL 09/20/24 Range/Units 09:02 WBC (3.8-10.6) k/uL RBC (3.80-5.40) m/uL Hgb (11.4-16.0) gm/dL Hct (34.0-46.0) % RDW (11.5-15.5) % Plt Count (150-450) k/uL Neutrophils # (1.3-7.7) k/uL Lymphocytes # (1.0-4.8) k/uL Sodium (137-145) mmol/L Chloride (98-107) mmol/L Carbon Dioxide (22-30) mmol/L BUN (7-17) mg/dL Creatinine (0.52-1.04) mg/dL Glucose (74-99) mg/dL POC Glucose (mg/dL) 126 H (70-110) mg/dL Calcium (8.4-10.2) mg/dL AST (14-36) U/L ALT (4-34) U/L Alkaline Phosphatase (38-126) U/L Total Protein (6.3-8.2) g/dL Albumin (3.5-5.0) g/dL Microbiology - Last 24 Hours (Table) 09/18/24 07:02 Blood Culture - Preliminary Blood
--- NOTE | 2024-09-20 14:30 | P.PN ---
Subjective Progress Note Date: 09/20/24 Principal diagnosis: Reason for follow-up is sepsis bacteremia Patient is a 69-year-old female with multiple comorbidity patient did have a significant PAD and did have a bilateral [id number]-[id number] amputations with subsequent dehiscence of the wound patient has been sent from the local long-term to the hospital with fever, patient be diagnosed with sepsis admitted to the ICU did have a positive blood culture with Klebsiella. Patient is status post surgical debridement of bilateral AKA wound and application of wound VAC culture has been obtained On today's evaluation that is 09/20/2024, Patient is afebrile patient is currently on room air and breathing comfortably no distress patient was sleepy lethargic did not answer any question vomiting or any change reported by the nursing staff. Patient white count slightly up to 17.2 today, creatinine 1.08 liver isms mildly elevated Objective - Vital Signs Vital signs: Vital Signs Temp 97.4 F L 09/20/24 12:30 Pulse 96 09/20/24 12:30 Resp 16 09/20/24 12:30 BP 130/84 09/20/24 12:30 Pulse Ox 98 09/20/24 12:30 FiO2 1 09/10/24 00:00 Intake & Output 09/19/24 09/20/24 09/20/24 18:59 06:59 18:59 Intake Total 240 0 Output Total 450 250 Balance -210 -250 0 Weight 52 kg Intake: Oral 240 0 Output: Urine 450 250 Other: Voiding Method Indwelling Catheter Indwelling Catheter Indwelling Catheter # Bowel Movements 1 - Exam GENERAL DESCRIPTION: An elderly female lying in bed in no distress RESPIRATORY SYSTEM: Unlabored breathing , decreased breath sounds at bases HEART: S1 S2 regular rate and rhythm , ABDOMEN: Soft , no tenderness EXTREMITIES: Bilateral AKA stump wound is covered with a wound VAC - Labs CBC & Chem 7: 09/20/24 07:38 09/20/24 07:38 Labs: Abnormal Lab Results - Last 24 Hours (Table) 09/19/24 09/20/24 09/20/24 Range/Units 20:58 07:38 07:38 WBC 17.2 H (3.8-10.6) k/uL RBC 2.60 L (3.80-5.40) m/uL Hgb 8.1 L (11.4-16.0) gm/dL Hct 25.7 L (34.0-46.0) % RDW 18.1 H (11.5-15.5) % Plt Count 140 L (150-450) k/uL Neutrophils # 16.3 H (1.3-7.7) k/uL Lymphocytes # 0.6 L (1.0-4.8) k/uL Sodium 149 H (137-145) mmol/L Chloride 120 H (98-107) mmol/L Carbon Dioxide 16 L (22-30) mmol/L BUN 22 H (7-17) mg/dL Creatinine 1.08 H (0.52-1.04) mg/dL Glucose 123 H (74-99) mg/dL POC Glucose (mg/dL) 118 H (70-110) mg/dL Calcium 7.4 L (8.4-10.2) mg/dL AST 425 H (14-36) U/L ALT 138 H (4-34) U/L Alkaline Phosphatase 215 H (38-126) U/L Total Protein 5.1 L (6.3-8.2) g/dL Albumin 2.1 L (3.5-5.0) g/dL 09/20/24 Range/Units 09:02 WBC (3.8-10.6) k/uL RBC (3.80-5.40) m/uL Hgb (11.4-16.0) gm/dL Hct (34.0-46.0) % RDW (11.5-15.5) % Plt Count (150-450) k/uL Neutrophils # (1.3-7.7) k/uL Lymphocytes # (1.0-4.8) k/uL Sodium (137-145) mmol/L Chloride (98-107) mmol/L Carbon Dioxide (22-30) mmol/L BUN (7-17) mg/dL Creatinine (0.52-1.04) mg/dL Glucose (74-99) mg/dL POC Glucose (mg/dL) 126 H (70-110) mg/dL Calcium (8.4-10.2) mg/dL AST (14-36) U/L ALT (4-34) U/L Alkaline Phosphatase (38-126) U/L Total Protein (6.3-8.2) g/dL Albumin (3.5-5.0) g/dL Microbiology - Last 24 Hours (Table) 09/18/24 07:02 Blood Culture - Preliminary Blood Assessment and Plan (1) Bilateral lower leg cellulitis Current Visit: Yes Status: Acute Code(s): L03.116 - CELLULITIS OF LEFT LOWER LIMB; L03.115 - CELLULITIS OF RIGHT LOWER LIMB SNOMED Code(s): 290058531 (2) Sepsis Current Visit: Yes Status: Acute Code(s): A41.9 - SEPSIS, UNSPECIFIED ORGANISM SNOMED Code(s): 56781960 (3) Bacteremia Current Visit: Yes Status: Acute Code(s): R78.81 - BACTEREMIA SNOMED Code(s): 7054038 Plan: 1patient is in the hospital with sepsis in this patient with a fever tachycardia elevated white count source is likely bilateral AKA wound and concern for osteomyelitis to the right AKA stump site however the patient also have elevated liver enzyme and there was a history of vomiting underlying abdominal source monitor excluded. 2patient has been evaluated by vascular surgery and is status post debridement of the wound and deep culture completed on 09/10/2024 culture has been E. coli strep and Serratia marcescens 3patient does have a positive blood culture with Klebsiella, repeat blood cultures are negative 4 ultrasound of the abdomen suggestive of possible cholecystitis General Surgery is being consulted recommending medical treatment at this point 5patient is currently on Zosyn waiting for placement noticed to have worsening of the white count to be monitored closely Dictation was produced using [employer] dictation software. please excuse any grammatical, word or spelling errors. Time with Patient: Less than 30
[2024-09-21 02:01] LABS: Glucose,Whole Blood 120 mg/dL (70-110)
--- NOTE | 2024-09-21 16:38 | P.PN ---
Subjective Progress Note Date: 09/21/24 69-year-old female with PMH of coronary artery disease hypertension hyperlipidemia IL reflux in this patient who did have right xpnba-zxq-zxnn amputation done at [facility] subsequently left kmnbt-vox-uufn amputation at [facility]. In the ER x-ray of the right femur showed concerning signs of contiguous osteomyelitis. Initial blood cultures were positive for E. coli plus Klebsiella pneumonia and at that time patient was started on vancomycin and Rocephin while awaiting cultures to finalize. Chest x-ray done on admission showed potential CHF with mild pulmonary vascular c ongestion and trace right pleural effusion which is improved from prior. CBC: WBC 11.3, hemoglobin 9.8, hematocrit 30.7, platelets 270. CMP: Sodium 143, potassium 4.5, CO2 20, BUN 46, creatinine 1.3, glucose 167, total bilirubin 2.3, AST 981, ALT 438, alkaline phosphatase 740. Troponin 0.096. Lactic acid 1.8. Patient is on 2 L nasal cannula SpO2 100%. Patient is seen this morning in the intensive care unit. No significant overnight events. Patient complaining of pain in the bilateral lower extremities (AKA). Ultrasound team is in the room this morning performing abdominal ultrasound. Vital show heart rate 96, respiratory rate 20, blood pressure 102/50, O2 saturation 94% on 2 L nasal cannula. Progress note dated September 10, 2024: Patient is seen in the intensive care unit this morning. No significant overnight events. There was a concern about urine output yesterday, but since then the patient has put out 1.3 L in the last 24 hours. Patient is expected to go for debridement of the bilateral AKA sites today. CBC: WBC 18.2, hemoglobin 9.0, hematocrit 28.4, platelets 270. CMP: Sodium 140, potassium 3.5, chloride 112, BUN 30, creatinine 0.89, calcium 7.6, albumin 2.1, AST 138, ALT 119, alkaline phosphatase 436. Now saturating well on room air, but still requiring Levophed 3 mcg/min after failed attempts to wean yesterday with a dropping MAP. On day 2 of cefepime and vancomycin. LR running at 150 cc/h. Progress note dated September 11, 2024: Patient is seen in the intensive care unit this morning. No significant overnight events. Patient is recovering well after bilateral debridement of the AKA stumps postop day 2. Patient is having some confusion, only A&O x 2, is unable to state the year. Patient was having some hallucinations yesterday, stated seeing a cat in the hallway. Reports better pain control in bilateral AKA stumps after debridement yesterday. CBC: WBC 11.3, hemoglobin 7 .4, platelet count 54. CMP: Sodium 137, potassium 4.2, CO2 18, creatinine 0.8, AST 102, ALT 71, and alkaline phosphatase 49. Continues to saturate well on room air, still requiring levo 3 mcg/min, on day 3 of cefepime and vancomycin, and LR running at 150 cc/h. Left and right leg wound cultures have finalized with Klebsiella, strep agalactiae, E. coli, and Serratia with sensitivities back as well. Progress note dated September 12, 2024: Patient is seen in the intensive care unit this morning. No significant overnight events. CBC: WBC 6.9, hemoglobin 7.6, platelet count 133. CMP: Sodium 135, potassium 3.5, chloride 111 TSH 7.3, free T4 1.74. Levo running at 0.45 mcg/min, reduce LR to 100 cc/h from 150 due to water retention and swelling. Continues saturate well on room air. On day 4 of cefepime and vancomycin. The patient is seen today September 13, 2024 in follow-up in the intensive care unit. She is currently resting comfortably in bed. Awake and alert in no acute distress. She is maintaining O2 saturations in the 90s on room air. She has lactated Ringer's at 20 mL/h. Still requiring norepinephrine at 5.4 mcg/min. She did receive Lasix 20 mg IVP x 1 yesterday with -1.3 L of urine returned. She is on midodrine 10 mg 3 times daily. Left leg wound is positive for Serratia marcescens, gram-negative bacilli and strep agalactiae group B. 12.8. Hemoglobin 10.3. Platelets 183. Sodium 136. Potassium 4.2. Bicarb 17. BUN 17. Creatinine 0.89. Glucose 80. AST 84. ALT 852. Cortisol level was 10.6. She is initiated on on Solu-Cortef 50 mg IV every 6 hours today. She continues on Symbicort. Antibiotics in the form of cefepime and off the vancomycin. The patient is seen today September 21, 2024 in follow-up on the 3 S. floor. She is currently resting in bed. Awake and alert in no acute distress. She is maintaining good O2 saturations in the 90s on room air. She pulled out her PICC line today. She pulled off her wound vacs. She has refused every medication scheduled for her. She has not ate or drank anything today. She refused hospice consult. Glucose 120. Follow-up blood cultures revealed no growth. She was to be receiving Zosyn. Objective - Vital Signs Vital signs: Vital Signs Temp 97.6 F 09/21/24 00:00 Pulse 101 H 09/21/24 14:00 Resp 14 09/21/24 14:00 BP 122/81 09/21/24 00:00 Pulse Ox 98 09/21/24 00:00 FiO2 1 09/10/24 00:00 Intake & Output 09/20/24 09/21/24 09/21/24 18:59 06:59 18:59 Intake Total 0 1000 Output Total 225 Balance 0 775 Intake: IV 1000 0.9 @ KVO 400 Dextrose 5% in Water 1, 400 000 ml @ 50 mls/hr IV . Q20H AMANDA Rx#:[id number] Piperacillin-Tazobactam 3 200 .375 gm In Sodium Chloride 0.9% 100 ml @ 25 mls/hr IVPB Q8H AMANDA Rx#: [id number] Oral 0 Output: Urine 225 Other: Voiding Method Indwelling Catheter Indwelling Catheter Indwelling Catheter # Bowel Movements 1 - Exam GENERAL: A 69-year-old female patient, alert and oriented, not in any acute dist ress. Well developed, well nourished. On room air. HEENT: Pupils are round and equally reacting to light. EOMI. No scleral icterus. No conjunctival pallor. Normocephalic, atraumatic. No pharyngeal erythema. No thyromegaly. CARDIOVASCULAR: S1 and S2 present. No murmurs, rubs, or gallops. PULMONARY: Chest is clear to auscultation, no wheezing , no crackles. ABDOMEN: Soft, nondistended, normoactive bowel sounds. No palpable organomegaly. Suprapubic tenderness. Infante catheter in place MUSCULOSKELETAL: No joint swelling or deformity. EXTREMITIES: No cyanosis, clubbing. Swelling/minimal edema of the upper extremities bilaterally. Bilateral AKA with superficial wounds of the bilateral stumps with some purulent discharge in the base which looks dried. Mild tenderness in the right AKA stump distally NEUROLOGICAL: Gross neurological examination did not reveal any focal deficits. SKIN: No rashes. no petechiae. - Labs CBC & Chem 7: 09/20/24 07:38 09/20/24 07:38 Labs: Abnormal Lab Results - Last 24 Hours (Table) 09/21/24 Range/Units 01:58 POC Glucose (mg/dL) 120 H (70-110) mg/dL Microbiology - Last 24 Hours (Table) 09/18/24 07:02 Blood Culture - Preliminary Blood Assessment and Plan Assessment: Septic shock secondary to infection/dehiscence of a left above-knee surgical wound and right above knee surgical wound. The patient has positive gram- negative septicemia with blood cultures being positive for Klebsiella pneumoniae and E. coli on 09/08/2024. Currently off pressors and the patient is hemodynamically stable and the patient remains on IV Zosyn. Bilateral surgical stump dehiscence for above-knee amputation, status post debridement with cultures being positive for strep group B and Serratia and E. coli on the left and Klebsiella pneumonia with strep group B and E. coli on the right. Surgical debridement has been performed on 09/10/2024 and wound VAC has been applied. Suspicion for osteomyelitis on the right. Vascular surgery is on the case. Hypotension secondary to sepsis, remains on pressors and broad-spectrum antibiotics with IV Zosyn and the patient remains off pressors, hemodynamically stable CHF with impaired LV function with an ejection fraction of 30 to 35%, repeat limited echocardiogram showed an ejection fraction of 20 to 25% from 09/14/2024 Altered mentation/metabolic encephalopathy/delirium. 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 COPD maintained on a combination of Advair and Incruse on outpatient basis Coronary artery disease with previous stent placement in the mid LAD in October 2023 History of right-sided pleural effusion with a previous thoracentesis on the right, exudate with negative cytology Severe peripheral vascular disease as revealed on the previous CTA of the aorta with runoff and the patient has bilateral above-knee amputations Chronic and ongoing tobacco smoking History of CVA Suspect relative adrenal insufficiency, currently on stress dose hydrocortisone Hypothyroidism currently on Synthroid Transaminitis: Improved Elevated troponins MARCY likely secondary to hypotension: Resolved History of hypertension History of hyperlipidemia Plan: The patient was seen and evaluated Currently stable and on room air Labs and medications reviewed The patient has pulled out her PICC line She refused all medications She is not eating or drinking Refused hospice consult Plan is to return to [facility] I have personally seen and examined the patient, performed the documentation and the assessment and plan as written. Number of minutes spent on the visit: 10 Dictation was produced using [employer] dictation software. Please excuse any grammatical, word or spelling errors.
[2024-09-21] MEDS: HYDROcodone/APAP 5-325MG 1 EACH TAB PO PRN (17:22)
[2024-09-21] MEDS: SODIUM CHLORIDE 0.9% 500 ML 500 ML IV ONE (19:08)
[2024-09-22 07:48] LABS: Anisocytosis Slight; Basophils % (A) 0 %; Eosinophils % (A) 0 %; HCT 28.8 % (34.0-46.0); Hypochromasia Moderate; Lymphocytes # (A) 1.3 k/uL (1.0-4.8); Lymphocytes % (A) 14 %; MCH 30.3 pg (25.0-35.0); MCHC 31.1 g/dL (31.0-37.0); MCV 97.3 fL (80.0-100.0); Macrocytosis Slight; Mean Platelet Volume 9.2; Monocytes # (A) 0.3 k/uL (0-1.0); Monocytes % (A) 3 %; Neutrophils # (A) 7.8 k/uL (1.3-7.7); Neutrophils % (A) 82 %; Platelet Count 142 k/uL (150-450); Poikilocytosis Slight; RBC 2.96 m/uL (3.80-5.40); RDW 18.8 % (11.5-15.5); WBC 9.6 k/uL (3.8-10.6)
[2024-09-22 08:44] LABS: African American GFR (CKD) 41 (>60 ml/min/1.73 sqM); Anion Gap 11 mmol/L; Blood Urea Nitrogen 24 mg/dL (7-17); Calcium 7.3 mg/dL (8.4-10.2); Carbon Dioxide 18 mmol/L (22-30); Chloride 119 mmol/L (98-107); Glucose 88 mg/dL (74-99); Non-African American GFR(CKD) 36 (>60 ml/min/1.73 sqM); Potassium 3.1 mmol/L (3.5-5.1); Sodium 148 mmol/L (137-145)
--- NOTE | 2024-09-22 11:45 | P.PN ---
Subjective Progress Note Date: 09/22/24 69-year-old female with PMH of coronary artery disease hypertension hyperlipidemia HI reflux in this patient who did have right lsrzm-zas-uarf amputation done at [facility] subsequently left glmnu-rlg-fzwu amputation at [facility]. In the ER x-ray of the right femur showed concerning signs of contiguous osteomyelitis. Initial blood cultures were positive for E. coli plus Klebsiella pneumonia and at that time patient was started on vancomycin and Rocephin while awaiting cultures to finalize. Chest x-ray done on admission showed potential CHF with mild pulmonary vascular c ongestion and trace right pleural effusion which is improved from prior. CBC: WBC 11.3, hemoglobin 9.8, hematocrit 30.7, platelets 270. CMP: Sodium 143, potassium 4.5, CO2 20, BUN 46, creatinine 1.3, glucose 167, total bilirubin 2.3, AST 981, ALT 438, alkaline phosphatase 740. Troponin 0.096. Lactic acid 1.8. Patient is on 2 L nasal cannula SpO2 100%. Patient is seen this morning in the intensive care unit. No significant overnight events. Patient complaining of pain in the bilateral lower extremities (AKA). Ultrasound team is in the room this morning performing abdominal ultrasound. Vital show heart rate 96, respiratory rate 20, blood pressure 102/50, O2 saturation 94% on 2 L nasal cannula. Progress note dated September 10, 2024: Patient is seen in the intensive care unit this morning. No significant overnight events. There was a concern about urine output yesterday, but since then the patient has put out 1.3 L in the last 24 hours. Patient is expected to go for debridement of the bilateral AKA sites today. CBC: WBC 18.2, hemoglobin 9.0, hematocrit 28.4, platelets 270. CMP: Sodium 140, potassium 3.5, chloride 112, BUN 30, creatinine 0.89, calcium 7.6, albumin 2.1, AST 138, ALT 119, alkaline phosphatase 436. Now saturating well on room air, but still requiring Levophed 3 mcg/min after failed attempts to wean yesterday with a dropping MAP. On day 2 of cefepime and vancomycin. LR running at 150 cc/h. Progress note dated September 11, 2024: Patient is seen in the intensive care unit this morning. No significant overnight events. Patient is recovering well after bilateral debridement of the AKA stumps postop day 2. Patient is having some confusion, only A&O x 2, is unable to state the year. Patient was having some hallucinations yesterday, stated seeing a cat in the hallway. Reports better pain control in bilateral AKA stumps after debridement yesterday. CBC: WBC 11.3, hemoglobin 7 .4, platelet count 54. CMP: Sodium 137, potassium 4.2, CO2 18, creatinine 0.8, AST 102, ALT 71, and alkaline phosphatase 49. Continues to saturate well on room air, still requiring levo 3 mcg/min, on day 3 of cefepime and vancomycin, and LR running at 150 cc/h. Left and right leg wound cultures have finalized with Klebsiella, strep agalactiae, E. coli, and Serratia with sensitivities back as well. Progress note dated September 12, 2024: Patient is seen in the intensive care unit this morning. No significant overnight events. CBC: WBC 6.9, hemoglobin 7.6, platelet count 133. CMP: Sodium 135, potassium 3.5, chloride 111 TSH 7.3, free T4 1.74. Levo running at 0.45 mcg/min, reduce LR to 100 cc/h from 150 due to water retention and swelling. Continues saturate well on room air. On day 4 of cefepime and vancomycin. The patient is seen today September 13, 2024 in follow-up in the intensive care unit. She is currently resting comfortably in bed. Awake and alert in no acute distress. She is maintaining O2 saturations in the 90s on room air. She has lactated Ringer's at 20 mL/h. Still requiring norepinephrine at 5.4 mcg/min. She did receive Lasix 20 mg IVP x 1 yesterday with -1.3 L of urine returned. She is on midodrine 10 mg 3 times daily. Left leg wound is positive for Serratia marcescens, gram-negative bacilli and strep agalactiae group B. 12.8. Hemoglobin 10.3. Platelets 183. Sodium 136. Potassium 4.2. Bicarb 17. BUN 17. Creatinine 0.89. Glucose 80. AST 84. ALT 852. Cortisol level was 10.6. She is initiated on on Solu-Cortef 50 mg IV every 6 hours today. She continues on Symbicort. Antibiotics in the form of cefepime and off the vancomycin. The patient is seen today September 21, 2024 in follow-up on the 3 S. floor. She is currently resting in bed. Awake and alert in no acute distress. She is maintaining good O2 saturations in the 90s on room air. She pulled out her PICC line today. She pulled off her wound vacs. She has refused every medication scheduled for her. She has not ate or drank anything today. She refused hospice consult. Glucose 120. Follow-up blood cultures revealed no growth. She was to be receiving Zosyn. The patient is seen today September 22, 2024 in follow-up on the selective care unit. She is currently resting in bed. Awake and alert in no acute distress. He is maintaining good O2 saturations up to 100% on room air. She is afebrile. Hemodynamically stable. She continues to refuse her morning medications. Refusing to eat. Psychiatry has been consulted. Follow-up blood cultures revealing no growth. White count 9.6. Hemoglobin 9.0. Platelets 142. Sodium 148. Potassium 3.1. Bicarb 18. BUN 24. Creatinine 1.47. Glucose 88. She is continued on D5W at 50 mL/h. Heparin for DVT prophylaxis. Remains on Zosyn. Objective - Vital Signs Vital signs: Vital Signs Temp 97.5 F L 09/22/24 08:00 Pulse 85 09/22/24 08:00 Resp 16 09/22/24 08:00 BP 126/64 09/22/24 08:00 Pulse Ox 100 09/22/24 08:00 FiO2 1 09/10/24 00:00 Intake & Output 09/21/24 09/22/24 09/22/24 18:59 06:59 18:59 Intake Total 20 437 Output Total 185 Balance -165 437 Weight 52.5 kg Intake: IV 20 200 Dextrose 5% in Water 1, 200 000 ml @ 50 mls/hr IV . Q20H [facility] Rx#:[id number] Invasive Line 5 20 Oral 237 Output: Urine 185 Other: Voiding Method Indwelling Catheter Indwelling Catheter Indwelling Catheter # Bowel Movements 1 - Exam GENERAL: A 69-year-old female patient, alert and oriented, not in any acute distress. On room air. HEENT: Pupils are round and equally reacting to light. EOMI. No scleral icterus. No conjunctival pallor. Normocephalic, atraumatic. No pharyngeal erythema. No thyromegaly. CARDIOVASCULAR: S1 and S2 present. No murmurs, rubs, or gallops. PULMONARY: Chest is clear to auscultation, no wheezing , no crackles. ABDOMEN: Soft, nondistended, normoactive bowel sounds. No palpable organomegaly. Suprapubic tenderness. Infante catheter in place MUSCULOSKELETAL: No joint swelling or deformity. EXTREMITIES: No cyanosis, clubbing. Swelling/minimal edema of the upper extremi ties bilaterally. Bilateral AKA with superficial wounds of the bilateral stumps with some purulent discharge in the base which looks dried. Mild tenderness in the right AKA stump distally NEUROLOGICAL: Gross neurological examination did not reveal any focal deficits. SKIN: No rashes. no petechiae. - Labs CBC & Chem 7: 09/22/24 06:46 09/22/24 06:46 Labs: Abnormal Lab Results - Last 24 Hours (Table) 09/22/24 09/22/24 Range/Units 06:46 06:46 RBC 2.96 L (3.80-5.40) m/uL Hgb 9.0 L (11.4-16.0) gm/dL Hct 28.8 L (34.0-46.0) % RDW 18.8 H (11.5-15.5) % Plt Count 142 L (150-450) k/uL Neutrophils # 7.8 H (1.3-7.7) k/uL Sodium 148 H (137-145) mmol/L Potassium 3.1 L (3.5-5.1) mmol/L Chloride 119 H (98-107) mmol/L Carbon Dioxide 18 L (22-30) mmol/L BUN 24 H (7-17) mg/dL Creatinine 1.47 H (0.52-1.04) mg/dL Calcium 7.3 L (8.4-10.2) mg/dL Microbiology - Last 24 Hours (Table) 09/18/24 07:02 Blood Culture - Preliminary Blood Assessment and Plan Assessment: Septic shock secondary to infection/dehiscence of a left above-knee surgical wound and right above knee surgical wound. The patient has positive gram- negative septicemia with blood cultures being positive for Klebsiella pneumoniae and E. coli on 09/08/2024. Currently off pressors and the patient is hemodyn amically stable and the patient remains on IV Zosyn. Bilateral surgical stump dehiscence for above-knee amputation, status post debridement with cultures being positive for strep group B and Serratia and E. coli on the left and Klebsiella pneumonia with strep group B and E. coli on the right. Surgical debridement has been performed on 09/10/2024 and wound VAC has been applied and pulled off by patient 09/21/2024. Hypotension secondary to sepsis, remains on pressors and broad-spectrum antibiotics with IV Zosyn and the patient remains hemodynamically stable CHF with impaired LV function with an ejection fraction of 30 to 35%, repeat limited echocardiogram showed an ejection fraction of 20 to 25% from 09/14/2024 Altered mentation/metabolic encephalopathy/delirium. 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 COPD maintained on a combination of Advair and Incruse on outpatient basis Coronary artery disease with previous stent placement in the mid LAD in October 2023 History of right-sided pleural effusion with a previous thoracentesis on the right, exudate with negative cytology Severe peripheral vascular disease as revealed on the previous CTA of the aorta with runoff and the patient has bilateral above-knee amputations Chronic and ongoing tobacco smoking History of CVA Suspect relative adrenal insufficiency, currently on stress dose hydrocortisone Hypothyroidism currently on Synthroid Transaminitis: Improved Elevated troponins MARCY likely secondary to hypotension: Resolved History of hypertension History of hyperlipidemia Plan: The patient was seen and evaluated Currently stable and on room air Labs and medications reviewed She is refusing medications She is not eating or drinking Psychiatry consult placed for competency Plan is to return to [facility] at discharge This patient was seen independently by the pulmonary nurse practitioner addressing pulmonary issues I have personally seen and examined the patient, performed the documentation and the assessment and plan as written. Number of minutes spent on the visit: 24 Dictation was produced using in[employer]air dictation software. Please excuse any grammatical, word or spelling errors.
--- NOTE | 2024-09-22 13:45 | P.CN ---
Psychiatric Consult - . Consult date: 09/22/24 Consult:: 09/22/24 13:04 IDENTIFYING DATA: This patient is a 69-year-old female, currently living in a [place] REASON FOR REFERRAL: Psychiatry was consulted for "medical incompetence" HISTORY OF PRESENT ILLNESS: The patient presented to the hospital initially on 09/08 coming from a [place]. she came into the hospital due to feeling unwell. Patient apparently was also reporting pain had cellulitis in her legs, was found to have septic shock. Patient apparently has been refusing some medications and also refusing to eat and also vitals and other care from staff. Component Prep Operator was contacted for evaluation for decision-making capacity. Patient was seen at the bedside agreeable to speak to engineering writer. She was alert attempting to cooperate. She was a fairly poor historian about her symptoms and what led her to come to the hospital. She did know that she is in the hospital however does not know what city she is in or which hospital, knows her full name and her age, she does not know the situation that is going on, she believes that it is "September 28". She believes that she came to the hospital for a "thing on my arm". She had a rather soft tone of voice. She claims that she is taking all her medications and not refusing anything however this is not corroborated in the medical chart and also by nurse. Patient does have poor insight and poor judgment. She was fairly focused on returning back to [facility]. She claims that her appetite has been on and off, sleep has been on and off. Attention span is fair. At this time patient denies any suicidal or homical ideations, intent or plan. Patient denies any auditory, visual hallucinations and denies any paranoia or delusions. Patients admits to using no recreational drugs or cigarettes Patient allowed engineering writer to speak with patient's son over the phone Robert. Candis bateman attempted to call him today, he was rather upset over the phone claiming that his team is not communicating well with him. He claims that he signed the POA forms and that he is the decision maker for her. He asked questions about her prognosis and discharge planning. He claims that she has no other neurocognitive issues or dementia that he is aware of. PAST PSYCHIATRIC HISTORY: Patient has no reported history of mental illness. Patient is currently on Remeron at nighttime. Patient denies any previous psychiatric hospitalizations. Patient denies any psychiatric outpatient follow- up. Patient denies any history of suicide attempts in the past. Past Medical History: Coronary Artery Disease (CAD), CVA/TIA, GERD/Reflux, Hyperlipidemia, Hypertension, Myocardial Infarction (DE), Osteoarthritis (OA), Skin Disorder Additional Past Medical History / Comment(s): hx migraines, TIA- FRACTURED RIGHT ANKLE 1/2 CAST, right AKA, left lower extremity revascularization and stenting, Left AKA Last Myocardial Infarction Date:: History of Any Multi-Drug Resistant Organisms: MRSA Date of last positivie culture/infection: 02/21/18 MDRO Source:: NECK Past Surgical History: Heart Catheterization With Stent, Orthopedic Surgery, Tubal Ligation Additional Past Surgical History / Comment(s): left ankle surgery fracture- pins and plate inserted. 2 cardiac stents, neck surgery, left lower extremity revascularization and stenting and right AKA Past Anesthesia/Blood Transfusion Reactions: No Reported Reaction Date of Last Stent Placement:: 09/2016 Past Psychological History: No Psychological Hx Reported Smoking Status: Current every day smoker Past Alcohol Use History: Occasional Past Drug Use History: None Reported ALLERGIES: as per EMR. CHEMICAL DEPENDENCY HISTORY: as per HPI. FAMILY PSYCHIATRIC/SUBSTANCE USE HISTORY: Denies SOCIAL HISTORY: Patient was born and raised in [facility] [place] [place]. Claims that she completed up to 10th grade in school. 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 States that she was in prison several years ago for domestic violence. She current lives in a custodial, she is single she has 3 kids. MENTAL STATUS EXAM: General Appearance: Patient appears to be thin, short hair, stated age is alert, attempts to be cooperative. Patient appears to have fair hygiene and grooming wearing hospital gown with fair eye contact. Behavior: Patient is calmly lying in bed without any agitated behavior. Attempts to cooperate, focused on discharge Speech: Patient's speech is fluent and nonpressured. Soft tone, hesitant at times Mood/Affect: Patient reports their mood is "ok", affect is congruent and constricted Suicidality/Homicidality: Patient denies having any suicidal or homicidal ideation intent or plan. Perceptions: Patient denies any visual hallucinations and denies any auditory hallucinations Though content/process: Rambles at times, poor insight into her condition and need for treatment. Focused on discharge. Minimizing Memory and concentration: AOX1-2, does not know her current location and also today's date. Cannot spell "WORLD" backwards. 0 out of 3 memory recall after 5 minutes. Judgment and insight: Poor IMPRESSIONS: likely underlying neurcognitive disorder PLAN: -At this time patient DOES NOT meet criteria for inpatient psychiatric admission. -Patient DOES NOT have decision making capacity at this time and is unable to reason through and communicate/appreciate the risks, benefits and alternatives to treatment. -Delirium precautions recommended with patient including - avoiding use of narcotics and WELT BUTTER HAND sedatives, limit anticholinergic medications when possible, frequent re-orientation, minimize use of restraints, open window shades during the day and close them at night -Would recommend the following medication changes/additions: Can continue Remeron 15 mg nightly for sleep/appetite. can add melatonin if needed if patient is still having difficulty with sleep rhythm. -packing room worker to provide patient with outpatient mental health/psychiatry resources for appropriate follow up upon discharge -answered questions and Communicated plan to patient's nurse, doctor and also patients son Ernie -Psychiatry will sign off at this time -Please contact with any questions. 09/22/24 13:29
--- NOTE | 2024-09-22 14:10 | P.PN ---
Subjective Progress Note Date: 09/22/24 This is a pleasant 69 years old female who was sent from [facility] for altered mental status. 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 Since 07/2024. Patient also states she vomited once earlier. Patient fully awake and oriented, can answer questions appropriately and follows command, she does not look in distress. On admission her blood pressure was on the low side 68/53 5 sh she need to be transferred to ICU for start pressors, currently her blood pressure is better 102/50. She is having fever 103 on admission. She denies chest pain or dyspnea no right upper quadrant abdominal pain. No reports of diarrhea. Urine looks dark in the Infante catheter. No dysuria for the patient. Labs reviewed she has unremarkable CBC, BMP and LFT. Urinalysis is highly suspicious for infection Urine culture is pending Abdominal ultrasound showing cholelithiasis with minimal cholecystic fluid with thickening of the adjacent gallbladder suspicious for acute cholecystitis, however clinically does not behave like inflamed gallbladder Femur x-ray showing right AKA stump with hazy ostomy margin suspicious for osteomyelitis by the left AKA showing sharp ostomy margins. Chest x-ray showed combination of COPD and chronic CHF. Patient currently treated with broad-spectrum antibiotics with cefepime and IV vancomycin. Patient also on Ringer lactate at 130 mL/h She is continued on aspirin and Brilinta. 1/2 Patient is up in bed getting breathing treatment fully awake and oriented Still complaining from suprapubic pain and tenderness, Infante catheter is in place and picking up her urine output, overnight her urine output was low so increase her fluid currently she is getting Ringer lactate at 150 mL/h also she is getting Levophed at 0.06. Her urine output this morning improved and curre ntly 50-100. Overnight they tried to wean off Levophed and blood pressure dropped. They will try again this morning. Patient remains on antibiotics cefepime and IV vancomycin for her sepsis, several sources are suspected. Most likely the source is acute urinary tract infection I spoke with Dr. Rg this morning, he still suspect there is acute cholecystitis at the source of her sepsis and he recommended cholecystectomy but not currently because of her clinical condition and because she has been on Brilinta Also she has infected stump wounds in both legs and she is going for OR today especially on the right side however per vascular surgery it is unlikely to be the source of infection. Currently patient n.p.o. for the procedure 09/11 Patient remains awake and alert sitting up in bed. Mentation at baseline. Both AKA stumps are in a dressing after she underwent debridement yesterday, p arents is more severe in these areas as patient explains. However patient still complains from suprapubic and RUQ tenderness today. No other new complaint. The patient She remains on IV vancomycin and cefepime and dual antiplatelet therapy with aspirin and Brilinta from home Her numbers are improving with WBC down 26, 18 and today 11.3, creatinine 1.1 on admission came back to 0.8 Hemoglobin also came down to 9.6 down to 7.4 but this is after debridement and will continue close monitoring and will transfuse if hemoglobin less than 7 Liver enzymes trending down as well Patient continue to need very close monitoring in the ICU with frequent rounding 09/12. Patient seen and examined. Patient is alert, being weaned off the Levophed. Patient is slightly confused. 09/13. Patient seen and examined. Blood work done showed WBC 12.8, hemoglobin 10.3, platelet count 183 sodium 136, potassium 4.2, BUN 17, creatinine 0.89. No acute issues over 09/14 Patient today remains in the ICU however she is very confused, looks mildly agitated and does not answer questions and follow commands. However her abdominal tenderness significantly improved, there is no suprapubic tenderness or RUQ tenderness And both AKA wounds are in dressing and looks. Patient evaluated by neurology service, ordered carotid Doppler showing with known left ICA stenosis and occlusion while right ICA is 50 to 69% occlusion Patient remains on broad-spectrum antibiotic,'s antibiotic switch from cefepime IV vancomycin to Zosyn. His leukocyte count worsened up to 21,000 09/15 Patient remains in the ICU She is still confused and drowsy, she is not answering questions or follows command Her abdomen looks soft with mild suprapubic tenderness Urinary catheter in place. Antibiotic no was adjusted to Zosyn, leukocytosis improved down to 13,000, which is improved Hemoglobin dropped to 7.3 will need close monitoring Patient remains on sodium bicarb drip at 50 mL/h 09/16 Patient is more awake and interactive, she is still somewhat lethargic but significantly improved compared to the last 2 days, she can tell me her name and when she reoriented about time place person she looks to remember. She does not have abdominal pain abdomen is soft Infante catheter in place Today she is developing diarrhea, C. difficile was checked was negative, lung nodule as needed is ordered however we will discontinue Colace patient she was taking. Patient also on Senokot-S as needed. She remains on Zosyn with looks working well for her with leukocytosis improving and mentation is improving 09/17 Patient is awake alert today She is complaining from abdominal pain and diarrhea. However fecal management system was discontinued and she had only 2 loose bowel movement overnight. C. difficile is negative. Patient already on Questran On examination she have mild generalized tenderness little bit on the more on the right side but there is no guarding or rebound tenderness. Patient remains on Zosyn Aspirin ordered but not given. However she is taking the Brilinta. Blood pressure is improved and I do not think she needs midodrine anymore so will be discontinue 09/18. Patient seen and examined. States she feels better. Still complain lethargic and weakness 09/19. Patient seen and examined. Patient blood sugars are low this morning, patient is not eating much. Potassium this morning was 2.7, replacement ordered 09/20. Patient seen and examined. Patient is not eating much.Blood work done this morning showed WBC 17.2, hemoglobin 8.1, platelet count 140, sodium 141, potassium 3.5, BUN 22, creatinine 1.08. Currently on room air patient is lethargic. Patient LFTs are elevated, will DC Lipitor. Start patient on D5W 09/22. Patient seen and examined. Patient is more alert, stated she wants to go back to rehab. Psychiatry consulted for capacity evaluation REVIEW OF SYSTEMS: CONSTITUTIONAL: No fever, no malaise,. CARDIOVASCULAR: No chest pain, no palpitations, no syncope. PULMONARY: No shortness of breath, no cough, GASTROINTESTINAL: No diarrhea, no nausea, no vomiting, no abdominal pain. NEUROLOGICAL: No headaches, no weakness, PHYSICAL EXAMINATION: GENERAL: The patient is alert, chronically ill looking HEENT: Pupils are round and equally reacting to light. EOMI. No scleral icterus. No conjunctival pallor. Normocephalic, atraumatic. No pharyngeal erythema. No thyromegaly. CARDIOVASCULAR: S1 and S2 present. No murmurs, rubs, or gallops. PULMONARY: Diminished breath sound at the bases bilaterally, no wheezing or crackles. ABDOMEN: Soft, nontender, nondistended, normoactive bowel sounds. No palpable organomegaly. MUSCULOSKELETAL: No joint swelling or deformity. EXTREMITIES: Bilateral AKA with bandages seen, wound VAC seen NEUROLOGICAL: Gross neurological examination did not reveal any focal deficits. SKIN: No rashes. Assessment and plan Cellulitis and infections of bilateral AKA stumps, there is suspicion of osteomyelitis at the distal margins of the right stump per x-ray. Status post I&D by vascular surgery on 09/10 Acute urinary tract infection with suprapubic tenderness. Urine cultures pending Gallbladder disease with gallstones, but there is suspicion of acute cholecystitis Severe sepsis/septic shock, present on admission, improving Peripheral artery disease Acute transaminitis Monitor vital signs Monitor CBC Monitor CMP Continue telemetry monitoring Follow-up on blood cultures Continue wound care Continue pain management Continue IV Zosyn Continue aspirin, Brilinta Continue Farxiga Continue Entresto ID following Vascular surgery following Psych consulted for capacity evaluation Labs and medication were reviewed.. Continue same treatment. Continue with symptomatic treatment. Resume home medication. Monitor labs and vitals. DVT and GI prophylaxis. Further recommendations as per clinical course of the patient Dictation was produced using [employer] dictation software. please excuse any grammatical, word or spelling errors. Objective - Vital Signs Vital signs: Vital Signs Temp 97.5 F L 09/22/24 08:00 Pulse 57 L 09/22/24 12:00 Resp 16 09/22/24 08:00 BP 145/74 09/22/24 12:00 Pulse Ox 94 L 09/22/24 12:00 FiO2 1 09/10/24 00:00 Intake & Output 09/21/24 09/22/24 09/22/24 18:59 06:59 18:59 Intake Total 20 437 Output Total 185 Balance -165 437 Weight 52.5 kg 52.5 kg Intake: IV 20 200 Dextrose 5% in Water 1, 200 000 ml @ 50 mls/hr IV . Q20H [facility] Rx#:[id number] Invasive Line 5 20 Oral 237 Output: Urine 185 Other: Voiding Method Indwelling Catheter Indwelling Catheter Indwelling Catheter # Bowel Movements 1 - Labs CBC & Chem 7: 09/22/24 06:46 09/22/24 06:46 Labs: Abnormal Lab Results - Last 24 Hours (Table) 09/22/24 09/22/24 Range/Units 06:46 06:46 RBC 2.96 L (3.80-5.40) m/uL Hgb 9.0 L (11.4-16.0) gm/dL Hct 28.8 L (34.0-46.0) % RDW 18.8 H (11.5-15.5) % Plt Count 142 L (150-450) k/uL Neutrophils # 7.8 H (1.3-7.7) k/uL Sodium 148 H (137-145) mmol/L Potassium 3.1 L (3.5-5.1) mmol/L Chloride 119 H (98-107) mmol/L Carbon Dioxide 18 L (22-30) mmol/L BUN 24 H (7-17) mg/dL Creatinine 1.47 H (0.52-1.04) mg/dL Calcium 7.3 L (8.4-10.2) mg/dL Microbiology - Last 24 Hours (Table) 09/18/24 07:02 Blood Culture - Preliminary Blood
--- NOTE | 2024-09-22 15:37 | P.PN ---
Subjective Progress Note Date: 09/21/24 Principal diagnosis: Reason for follow-up is sepsis bacteremia Patient is a 69-year-old female with multiple comorbidity patient did have a significant PAD and did have a bilateral [id number] amputations with subsequent dehiscence of the wound patient [facility], patient be diagnosed with sepsis admitted to the ICU did have a positive blood culture with Klebsiella. Patient is status post surgical debridement of bilateral AKA wound and application of wound VAC culture has been obtained On today's evaluation that is 09/21/2023, patient has been afebrile, patient is breathing comfortably and is currently on room air, patient denies having any significant cough no chest pain, patient denies nausea vomiting or diarrhea and no abdominal pain patient apparently has been keep on pulling of her wound VAC from the EKG has reported by the nursing staff Patient did not have any CBC done today Objective - Vital Signs Vital signs: Vital Signs Temp 97.6 F 09/21/24 00:00 Pulse 64 09/21/24 00:00 Resp 14 09/21/24 00:00 BP 122/81 09/21/24 00:00 Pulse Ox 98 09/21/24 00:00 FiO2 1 09/10/24 00:00 Intake & Output 09/20/24 09/21/24 09/21/24 18:59 06:59 18:59 Intake Total 0 1000 Output Total 225 Balance 0 775 Intake: IV 1000 0.9 @ KVO 400 Dextrose 5% in Water 1, 400 000 ml @ 50 mls/hr IV . Q20H [facility] Rx#:[id number] Piperacillin-Tazobactam 3 200 .375 gm In Sodium Chloride 0.9% 100 ml @ 25 mls/hr IVPB Q8H [facility] Rx#: [id number] Oral 0 Output: Urine 225 Other: Voiding Method Indwelling Catheter Indwelling Catheter # Bowel Movements 1 - Exam GENERAL DESCRIPTION: An elderly female lying in bed in no distress RESPIRATORY SYSTEM: Unlabored breathing , decreased breath sounds at bases HEART: S1 S2 regular rate and rhythm , ABDOMEN: Soft , no tenderness EXTREMITIES: Bilateral AKA stump wound is covered with a wound VAC - Labs CBC & Chem 7: 09/22/24 06:46 09/22/24 06:46 Labs: Abnormal Lab Results - Last 24 Hours (Table) 09/21/24 Range/Units 01:58 POC Glucose (mg/dL) 120 H (70-110) mg/dL Microbiology - Last 24 Hours (Table) 09/18/24 07:02 Blood Culture - Preliminary Blood Assessment and Plan (1) Bilateral lower leg cellulitis Current Visit: Yes Status: Acute Code(s): L03.116 - CELLULITIS OF LEFT LOWER LIMB; L03.115 - CELLULITIS OF RIGHT LOWER LIMB SNOMED Code(s): 454782419 (2) Sepsis Current Visit: Yes Status: Acute Code(s): A41.9 - SEPSIS, UNSPECIFIED ORGANISM SNOMED Code(s): 90230435 (3) Bacteremia Current Visit: Yes Status: Acute Code(s): R78.81 - BACTEREMIA SNOMED Code(s): 0596553 Plan: 1patient is in the hospital with sepsis in this patient with a fever tachycardia elevated white count source is likely bilateral AKA wound and concern for osteomyelitis to the right AKA stump site however the patient also have elevated liver enzyme and there was a history of vomiting underlying abdominal source monitor excluded. 2patient has been evaluated by vascular surgery and is status post debridement of the wound and deep culture completed on 09/10/2024 culture has been E. coli strep and Serratia marcescens 3patient does have a positive blood culture with Klebsiella, repeat blood cultures has been negative 4 ultrasound of the abdomen suggestive of possible cholecystitis General Surgery is being consulted recommending medical treatment at this point 5patient is currently on Zosyn waiting for placement, patient apparently seem to be pulling out her wound VAC may be discontinued local wound care per the wound care team Dictation was produced using [employer] dictation software. please excuse any gram matical, word or spelling errors. Time with Patient: Less than 30
--- NOTE | 2024-09-22 15:38 | P.PN ---
Subjective Progress Note Date: 09/22/24 Principal diagnosis: Reason for follow-up is sepsis bacteremia Patient is a 69-year-old female with multiple comorbidity patient did have a significant PAD and did have a bilateral [id number] amputations with subsequent dehiscence of the wound patient has been sent [facility] the local long term to the hospital with fever, patient be diagnosed with sepsis admitted to the ICU did have a positive blood culture with Klebsiella. Patient is status post surgical debridement of bilateral AKA wound and application of wound VAC culture has been obtained On today's evaluation that is 09/22/2023, Patient is afebrile this morning patient denies having any chest pain shortness of breath or cough, the patient is currently on room air, patient denies any abdominal pain no diarrhea no nausea no vomiting, patient wants to go back to rehab Patient white count is 9.6 creatinine is 1.47 blood culture repeat has been negative Objective - Vital Signs Vital signs: Vital Signs Temp 97.5 F L 09/22/24 08:00 Pulse 57 L 09/22/24 12:00 Resp 16 09/22/24 08:00 BP 145/74 09/22/24 12:00 Pulse Ox 94 L 09/22/24 12:00 FiO2 1 09/10/24 00:00 Intake & Output 09/21/24 09/22/24 09/22/24 18:59 06:59 18:59 Intake Total 20 437 Output Total 185 Balance -165 437 Weight 52.5 kg 52.5 kg Intake: IV 20 200 Dextrose 5% in Water 1, 200 000 ml @ 50 mls/hr IV . Q20H [facility] Rx#:[id number] Invasive Line 5 20 Oral 237 Output: Urine 185 Other: Voiding Method Indwelling Catheter Indwelling Catheter Indwelling Catheter # Bowel Movements 1 - Exam GENERAL DESCRIPTION: An elderly female lying in bed in no distress RESPIRATORY SYSTEM: Unlabored breathing , decreased breath sounds at bases HEART: S1 S2 regular rate and rhythm , ABDOMEN: Soft , no tenderness EXTREMITIES: Bilateral AKA stump wound is covered with a wound VAC - Labs CBC & Chem 7: 09/22/24 06:46 09/22/24 06:46 Labs: Abnormal Lab Results - Last 24 Hours (Table) 09/22/24 09/22/24 Range/Units 06:46 06:46 RBC 2.96 L (3.80-5.40) m/uL Hgb 9.0 L (11.4-16.0) gm/dL Hct 28.8 L (34.0-46.0) % RDW 18.8 H (11.5-15.5) % Plt Count 142 L (150-450) k/uL Neutrophils # 7.8 H (1.3-7.7) k/uL Sodium 148 H (137-145) mmol/L Potassium 3.1 L (3.5-5.1) mmol/L Chloride 119 H (98-107) mmol/L Carbon Dioxide 18 L (22-30) mmol/L BUN 24 H (7-17) mg/dL Creatinine 1.47 H (0.52-1.04) mg/dL Calcium 7.3 L (8.4-10.2) mg/dL Microbiology - Last 24 Hours (Table) 09/18/24 07:02 Blood Culture - Preliminary Blood Assessment and Plan (1) Bilateral lower leg cellulitis Current Visit: Yes Status: Acute Code(s): L03.116 - CELLULITIS OF LEFT LOWER LIMB; L03.115 - CELLULITIS OF RIGHT LOWER LIMB SNOMED Code(s): 501881114 (2) Sepsis Current Visit: Yes Status: Acute Code(s): A41.9 - SEPSIS, UNSPECIFIED ORGANISM SNOMED Code(s): 77476722 (3) Bacteremia Current Visit: Yes Status: Acute Code(s): R78.81 - BACTEREMIA SNOMED Code(s): 0506004 Plan: 1patient is in the hospital with sepsis in this patient with a fever tachycardia elevated white count source is likely bilateral AKA wound and concern for osteomyelitis to the right AKA stump site however the patient also have elevated liver enzyme and there was a history of vomiting underlying abdominal source monitor excluded. 2patient has been evaluated by vascular surgery and is status post debridement of the wound and deep culture completed on 09/10/2024 culture has been E. coli strep and Serratia marcescens 3patient does have a positive blood culture with Klebsiella, repeat blood cultures has been negative 4 ultrasound of the abdomen suggestive of possible cholecystitis General Surgery is being consulted recommending medical treatment at this point 5patigia is currently on Zosyn she will need for another 4 to 5-week to finish her 6-week course of therapy and monitor clinical course closely Dictation was produced using [employer] dictation software. please excuse any grammatical, word or spelling errors. Time with Patient: Less than 30
[2024-09-22] MEDS: POTASSIUM CHLORIDE ER 20 MEQ TAB.ER PO SCH (23:32)
[2024-09-23 07:22] LABS: Anisocytosis Slight; Basophils % (A) 0 %; Eosinophils % (A) 0 %; HCT 29.8 % (34.0-46.0); HGB 9.6 gm/dL (11.4-16.0); Hypochromasia Moderate; Lymphocytes # (A) 1.3 k/uL (1.0-4.8); Lymphocytes % (A) 15 %; MCH 31.9 pg (25.0-35.0); MCHC 32.2 g/dL (31.0-37.0); MCV 99.1 fL (80.0-100.0); Macrocytosis Slight; Mean Platelet Volume 9.8; Monocytes # (A) 0.2 k/uL (0-1.0); Monocytes % (A) 2 %; Neutrophils # (A) 6.7 k/uL (1.3-7.7); Neutrophils % (A) 81 %; Platelet Count 151 k/uL (150-450); Poikilocytosis Slight; RBC 3.01 m/uL (3.80-5.40); RDW 19.9 % (11.5-15.5); WBC 8.2 k/uL (3.8-10.6)
[2024-09-23 07:34] LABS: ALT 260 U/L (4-34); African American GFR (CKD) 39 (>60 ml/min/1.73 sqM); Alkaline Phosphatase 193 U/L (38-126); Anion Gap 8 mmol/L; Blood Urea Nitrogen 26 mg/dL (7-17); Calcium 7.1 mg/dL (8.4-10.2); Carbon Dioxide 17 mmol/L (22-30); Chloride 119 mmol/L (98-107); Glucose 90 mg/dL (74-99); Non-African American GFR(CKD) 34 (>60 ml/min/1.73 sqM); Potassium 3.6 mmol/L (3.5-5.1); Sodium 144 mmol/L (137-145); Total Bilirubin 0.7 mg/dL (0.2-1.3)
[2024-09-23 07:59] LABS: AST 709 U/L (14-36)
--- NOTE | 2024-09-23 13:17 | P.PN ---
Subjective Progress Note Date: 09/23/24 This is a pleasant 69 years old female who was sent from [facility] for altered mental status. 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 Since 07/2024. Patient also states she vomited once earlier. Patient fully awake and oriented, can answer questions appropriately and follows command, she does not look in distress. On admission her blood pressure was on the low side 68/53 5 sh she need to be transferred to ICU for start pressors, currently her blood pressure is better 102/50. She is having fever 103 on admission. She denies chest pain or dyspnea no right upper quadrant abdominal pain. No reports of diarrhea. Urine looks dark in the Infante catheter. No dysuria for the patient. Labs reviewed she has unremarkable CBC, BMP and LFT. Urinalysis is highly suspicious for infection Urine culture is pending Abdominal ultrasound showing cholelithiasis with minimal cholecystic fluid with thickening of the adjacent gallbladder suspicious for acute cholecystitis, however clinically does not behave like inflamed gallbladder Femur x-ray showing right AKA stump with hazy ostomy margin suspicious for osteomyelitis by the left AKA showing sharp ostomy margins. Chest x-ray showed combination of COPD and chronic CHF. Patient currently treated with broad-spectrum antibiotics with cefepime and IV vancomycin. Patient also on Ringer lactate at 130 mL/h She is continued on aspirin and Brilinta. 1/2 Patient is up in bed getting breathing treatment fully awake and oriented Still complaining from suprapubic pain and tenderness, Infante catheter is in place and picking up her urine output, overnight her urine output was low so increase her fluid currently she is getting Ringer lactate at 150 mL/h also she is getting Levophed at 0.06. Her urine output this morning improved and curre ntly 50-100. Overnight they tried to wean off Levophed and blood pressure dropped. They will try again this morning. Patient remains on antibiotics cefepime and IV vancomycin for her sepsis, several sources are suspected. Most likely the source is acute urinary tract infection I spoke with Dr. Rg this morning, he still suspect there is acute cholecystitis at the source of her sepsis and he recommended cholecystectomy but not currently because of her clinical condition and because she has been on Brilinta Also she has infected stump wounds in both legs and she is going for OR today especially on the right side however per vascular surgery it is unlikely to be the source of infection. Currently patient n.p.o. for the procedure 09/11 Patient remains awake and alert sitting up in bed. Mentation at baseline. Both AKA stumps are in a dressing after she underwent debridement yesterday, p arents is more severe in these areas as patient explains. However patient still complains from suprapubic and RUQ tenderness today. No other new complaint. The patient She remains on IV vancomycin and cefepime and dual antiplatelet therapy with aspirin and Brilinta from home Her numbers are improving with WBC down 26, 18 and today 11.3, creatinine 1.1 on admission came back to 0.8 Hemoglobin also came down to 9.6 down to 7.4 but this is after debridement and will continue close monitoring and will transfuse if hemoglobin less than 7 Liver enzymes trending down as well Patient continue to need very close monitoring in the ICU with frequent rounding 09/12. Patient seen and examined. Patient is alert, being weaned off the Levophed. Patient is slightly confused. 09/13. Patient seen and examined. Blood work done showed WBC 12.8, hemoglobin 10.3, platelet count 183 sodium 136, potassium 4.2, BUN 17, creatinine 0.89. No acute issues over 09/14 Patient today remains in the ICU however she is very confused, looks mildly agitated and does not answer questions and follow commands. However her abdominal tenderness significantly improved, there is no suprapubic tenderness or RUQ tenderness And both AKA wounds are in dressing and looks. Patient evaluated by neurology service, ordered carotid Doppler showing with known left ICA stenosis and occlusion while right ICA is 50 to 69% occlusion Patient remains on broad-spectrum antibiotic,'s antibiotic switch from cefepime IV vancomycin to Zosyn. His leukocyte count worsened up to 21,000 09/15 Patient remains in the ICU She is still confused and drowsy, she is not answering questions or follows command Her abdomen looks soft with mild suprapubic tenderness Urinary catheter in place. Antibiotic no was adjusted to Zosyn, leukocytosis improved down to 13,000, which is improved Hemoglobin dropped to 7.3 will need close monitoring Patient remains on sodium bicarb drip at 50 mL/h 09/16 Patient is more awake and interactive, she is still somewhat lethargic but significantly improved compared to the last 2 days, she can tell me her name and when she reoriented about time place person she looks to remember. She does not have abdominal pain abdomen is soft Infante catheter in place Today she is developing diarrhea, C. difficile was checked was negative, lung nodule as needed is ordered however we will discontinue Colace patient she was taking. Patient also on Senokot-S as needed. She remains on Zosyn with looks working well for her with leukocytosis improving and mentation is improving 09/17 Patient is awake alert today She is complaining from abdominal pain and diarrhea. However fecal management system was discontinued and she had only 2 loose bowel movement overnight. C. difficile is negative. Patient already on Questran On examination she have mild generalized tenderness little bit on the more on the right side but there is no guarding or rebound tenderness. Patient remains on Zosyn Aspirin ordered but not given. However she is taking the Brilinta. Blood pressure is improved and I do not think she needs midodrine anymore so will be discontinue 09/18. Patient seen and examined. States she feels better. Still complain lethargic and weakness 09/19. Patient seen and examined. Patient blood sugars are low this morning, patient is not eating much. Potassium this morning was 2.7, replacement ordered 09/20. Patient seen and examined. Patient is not eating much.Blood work done this morning showed WBC 17.2, hemoglobin 8.1, platelet count 140, sodium 141, potassium 3.5, BUN 22, creatinine 1.08. Currently on room air patient is lethargic. Patient LFTs are elevated, will DC Lipitor. Start patient on D5W 09/22. Patient seen and examined. Patient is more alert, stated she wants to go back to rehab. Psychiatry consulted for capacity evaluation 09/23. Patient seen and examined. Psychiatry evaluated, patient has no capacity at this time to make decisions regarding treatment. Son contacted, coming this afternoon to talk with hospice REVIEW OF SYSTEMS: CONSTITUTIONAL: No fever, no malaise,. CARDIOVASCULAR: No chest pain, no palpitations, no syncope. PULMONARY: No shortness of breath, no cough, GASTROINTESTINAL: No diarrhea, no nausea, no vomiting, no abdominal pain. NEUROLOGICAL: No headaches, no weakness, PHYSICAL EXAMINATION: GENERAL: The patient is alert, chronically ill looking HEENT: Pupils are round and equally reacting to light. EOMI. No scleral icterus. No conjunctival pallor. Normocephalic, atraumatic. No pharyngeal erythema. No thyromegaly. CARDIOVASCULAR: S1 and S2 present. No murmurs, rubs, or gallops. PULMONARY: Diminished breath sound at the bases bilaterally, no wheezing or crackles. ABDOMEN: Soft, nontender, nondistended, normoactive bowel sounds. No palpable organomegaly. MUSCULOSKELETAL: No joint swelling or deformity. EXTREMITIES: Bilateral AKA with bandages seen, wound VAC seen NEUROLOGICAL: Gross neurological examination did not reveal any focal deficits. SKIN: No rashes. Assessment and plan Cellulitis and infections of bilateral AKA stumps, there is suspicion of osteomyelitis at the distal margins of the right stump per x-ray. Status post I&D by vascular surgery on 09/10 Acute urinary tract infection with suprapubic tenderness. Urine cultures pending Gallbladder disease with gallstones, but there is suspicion of acute cholecystitis Severe sepsis/septic shock, present on admission, improving Peripheral artery disease Acute transaminitis Monitor vital signs Monitor CBC Monitor CMP Continue telemetry monitoring Follow-up on blood cultures Continue wound care Continue pain management Continue IV Zosyn Continue aspirin, Brilinta Continue Farxiga Continue Entresto ID following Vascular surgery following Psychiatry evaluated, patient has no capacity at this time to make decisions regarding treatment. Labs and medication were reviewed.. Continue same treatment. Continue with symptomatic treatment. Resume home medication. Monitor labs and vitals. DVT and GI prophylaxis. Further recommendations as per clinical course of the patient Dictation was produced using [employer] dictation software. please excuse any grammatical, word or spelling errors. Objective - Vital Signs Vital signs: Vital Signs Temp 97.4 F L 09/23/24 03:40 Pulse 79 09/23/24 12:00 Resp 18 09/23/24 12:00 BP 126/68 09/23/24 12:00 Pulse Ox 97 09/23/24 12:00 FiO2 1 09/10/24 00:00 Intake & Output 09/22/24 09/23/24 09/23/24 18:59 06:59 18:59 Intake Total 437 20 Output Total 400 150 Balance 437 -380 -150 Weight 52.5 kg 52.5 kg Intake: IV 200 20 Dextrose 5% in Water 1, 200 000 ml @ 50 mls/hr IV . Q20H [facility] Rx#:[id number] Invasive Line 5 20 Oral 237 Output: Urine 400 150 Other: Voiding Method Indwelling Catheter Indwelling Catheter Indwelling Catheter # Bowel Movements 1 1 1 - Labs CBC & Chem 7: 09/23/24 06:46 09/23/24 06:46 Labs: Abnormal Lab Results - Last 24 Hours (Table) 09/23/24 09/23/24 Range/Units 06:46 06:46 RBC 3.01 L (3.80-5.40) m/uL Hgb 9.6 L (11.4-16.0) gm/dL Hct 29.8 L (34.0-46.0) % RDW 19.9 H (11.5-15.5) % Chloride 119 H (98-107) mmol/L Carbon Dioxide 17 L (22-30) mmol/L BUN 26 H (7-17) mg/dL Creatinine 1.56 H (0.52-1.04) mg/dL Calcium 7.1 L (8.4-10.2) mg/dL AST 709 H (14-36) U/L ALT 260 H (4-34) U/L Alkaline Phosphatase 193 H (38-126) U/L Total Protein 5.0 L (6.3-8.2) g/dL Albumin 2.0 L (3.5-5.0) g/dL Microbiology - Last 24 Hours (Table) 09/18/24 07:02 Blood Culture - Final Blood
--- NOTE | 2024-09-23 14:21 | P.PN ---
Subjective Progress Note Date: 09/23/24 69-year-old female with PMH of coronary artery disease hypertension hyperlipidemia SC reflux in this patient who did have right [id number] amputation done at [facility] subsequently left apvkb-zwa-tior amputation at [facility]. In the ER x-ray of the right femur showed concerning signs of contiguous osteomyelitis. Initial blood cultures were positive for E. coli plus Klebsiella pneumonia and at that time patient was started on vancomycin and Rocephin while awaiting cultures to finalize. Chest x-ray done on admission showed potential CHF with mild pulmonary vascular c ongestion and trace right pleural effusion which is improved from prior. CBC: WBC 11.3, hemoglobin 9.8, hematocrit 30.7, platelets 270. CMP: Sodium 143, potassium 4.5, CO2 20, BUN 46, creatinine 1.3, glucose 167, total bilirubin 2.3, AST 981, ALT 438, alkaline phosphatase 740. Troponin 0.096. Lactic acid 1.8. Patient is on 2 L nasal cannula SpO2 100%. Patient is seen this morning in the intensive care unit. No significant overnight events. Patient complaining of pain in the bilateral lower extremities (AKA). Ultrasound team is in the room this morning performing abdominal ultrasound. Vital show heart rate 96, respiratory rate 20, blood pressure 102/50, O2 saturation 94% on 2 L nasal cannula. Progress note dated September 10, 2024: Patient is seen in the intensive care unit this morning. No significant overnight events. There was a concern about urine output yesterday, but since then the patient has put out 1.3 L in the last 24 hours. Patient is expected to go for debridement of the bilateral AKA sites today. CBC: WBC 18.2, hemoglobin 9.0, hematocrit 28.4, platelets 270. CMP: Sodium 140, potassium 3.5, chloride 112, BUN 30, creatinine 0.89, calcium 7.6, albumin 2.1, AST 138, ALT 119, alkaline phosphatase 436. Now saturating well on room air, but still requiring Levophed 3 mcg/min after failed attempts to wean yesterday with a dropping MAP. On day 2 of cefepime and vancomycin. LR running at 150 cc/h. Progress note dated September 11, 2024: Patient is seen in the intensive care unit this morning. No significant overnight events. Patient is recovering well after bilateral debridement of the AKA stumps postop day 2. Patient is having some confusion, only A&O x 2, is unable to state the year. Patient was having some hallucinations yesterday, stated seeing a cat in the hallway. Reports better pain control in bilateral AKA stumps after debridement yesterday. CBC: WBC 11.3, hemoglobin 7 .4, platelet count 54. CMP: Sodium 137, potassium 4.2, CO2 18, creatinine 0.8, AST 102, ALT 71, and alkaline phosphatase 49. Continues to saturate well on room air, still requiring levo 3 mcg/min, on day 3 of cefepime and vancomycin, and LR running at 150 cc/h. Left and right leg wound cultures have finalized with Klebsiella, strep agalactiae, E. coli, and Serratia with sensitivities back as well. Progress note dated September 12, 2024: Patient is seen in the intensive care unit this morning. No significant overnight events. CBC: WBC 6.9, hemoglobin 7.6, platelet count 133. CMP: Sodium 135, potassium 3.5, chloride 111 TSH 7.3, free T4 1.74. Levo running at 0.45 mcg/min, reduce LR to 100 cc/h from 150 due to water retention and swelling. Continues saturate well on room air. On day 4 of cefepime and vancomycin. The patient is seen today September 13, 2024 in follow-up in the intensive care unit. She is currently resting comfortably in bed. Awake and alert in no acute distress. She is maintaining O2 saturations in the 90s on room air. She has lactated Ringer's at 20 mL/h. Still requiring norepinephrine at 5.4 mcg/min. She did receive Lasix 20 mg IVP x 1 yesterday with -1.3 L of urine returned. She is on midodrine 10 mg 3 times daily. Left leg wound is positive for Serratia marcescens, gram-negative bacilli and strep agalactiae group B. 12.8. Hemoglobin 10.3. Platelets 183. Sodium 136. Potassium 4.2. Bicarb 17. BUN 17. Creatinine 0.89. Glucose 80. AST 84. ALT 852. Cortisol level was 10.6. She is initiated on on Solu-Cortef 50 mg IV every 6 hours today. She continues on Symbicort. Antibiotics in the form of cefepime and off the vancomycin. The patient is seen today September 21, 2024 in follow-up on the 3 S. floor. She is currently resting in bed. Awake and alert in no acute distress. She is maintaining good O2 saturations in the 90s on room air. She pulled out her PICC line today. She pulled off her wound vacs. She has refused every medication scheduled for her. She has not ate or drank anything today. She refused hospice consult. Glucose 120. Follow-up blood cultures revealed no growth. She was to be receiving Zosyn. The patient is seen today September 22, 2024 in follow-up on the selective care unit. She is currently resting in bed. Awake and alert in no acute distress. He is maintaining good O2 saturations up to 100% on room air. She is afebrile. Hemodynamically stable. She continues to refuse her morning medications. Refusing to eat. Psychiatry has been consulted. Follow-up blood cultures revealing no growth. White count 9.6. Hemoglobin 9.0. Platelets 142. Sodium 148. Potassium 3.1. Bicarb 18. BUN 24. Creatinine 1.47. Glucose 88. She is continued on D5W at 50 mL/h. Heparin for DVT prophylaxis. Remains on Zosyn. The patient is seen today September 23, 2023 in follow-up on the selective care unit. She is currently resting in bed. Awake and alert in no acute distress. A bit more cooperative today. Taking some of her medications. Still with minimal oral intake. She remains on Symbicort, ipratropium bromide. D5W at 50 mL/h. Heparin for DVT prophylaxis. Antibiotics in the form of Zosyn. Continues to maintain good O2 saturation up to 100% on room air. Afebrile. Hemodynamically stable. White count 8.2. Hemoglobin 9.6. Platelets 151. Sodium 144. Potassium 3.6. Bicarb 17. BUN 26. Creatinine 1.56. AST 709. ALT 260 Objective - Vital Signs Vital signs: Vital Signs Temp 97.4 F L 09/23/24 03:40 Pulse 79 09/23/24 12:00 Resp 18 09/23/24 12:00 BP 126/68 09/23/24 12:00 Pulse Ox 97 09/23/24 12:00 FiO2 1 09/10/24 00:00 Intake & Output 09/22/24 09/23/24 09/23/24 18:59 06:59 18:59 Intake Total 437 20 Output Total 400 150 Balance 437 -380 -150 Weight 52.5 kg 52.5 kg Intake: IV 200 20 Dextrose 5% in Water 1, 200 000 ml @ 50 mls/hr IV . Q20H [facility] Rx#:[id number] Invasive Line 5 20 Oral 237 Output: Urine 400 150 Other: Voiding Method Indwelling Catheter Indwelling Catheter Indwelling Catheter # Bowel Movements 1 1 1 - Exam GENERAL: A 69-year-old female, resting in bed, alert, not in any acute distress. On room air. HEENT: Pupils are round and equally reacting to light. EOMI. No scleral icterus. No conjunctival pallor. Normocephalic, atraumatic. No pharyngeal erythema. No thyromegaly. CARDIOVASCULAR: S1 and S2 present. No murmurs, rubs, or gallops. PULMONARY: Chest is clear to auscultation, no wheezing , no crackles. ABDOMEN: Soft, nondistended, normoactive bowel sounds. No palpable organomegaly. Suprapubic tenderness. Infante catheter in place MUSCULOSKELETAL: No joint swelling or deformity. EXTREMITIES: No cyanosis, clubbing. Swelling/minimal edema of the upper extremities bilaterally. Bilateral AKA with superficial wounds that have bilateral dressings in place. NEUROLOGICAL: Gross neurological examination did not reveal any focal deficits. SKIN: No rashes. no petechiae. - Labs CBC & Chem 7: 09/23/24 06:46 09/23/24 06:46 Labs: Abnormal Lab Results - Last 24 Hours (Table) 09/23/24 09/23/24 Range/Units 06:46 06:46 RBC 3.01 L (3.80-5.40) m/uL Hgb 9.6 L (11.4-16.0) gm/dL Hct 29.8 L (34.0-46.0) % RDW 19.9 H (11.5-15.5) % Chloride 119 H (98-107) mmol/L Carbon Dioxide 17 L (22-30) mmol/L BUN 26 H (7-17) mg/dL Creatinine 1.56 H (0.52-1.04) mg/dL Calcium 7.1 L (8.4-10.2) mg/dL AST 709 H (14-36) U/L ALT 260 H (4-34) U/L Alkaline Phosphatase 193 H (38-126) U/L Total Protein 5.0 L (6.3-8.2) g/dL Albumin 2.0 L (3.5-5.0) g/dL Microbiology - Last 24 Hours (Table) 09/18/24 07:02 Blood Culture - Final Blood Assessment and Plan Assessment: Septic shock secondary to infection/dehiscence of a left above-knee surgical wound and right above knee surgical wound. The patient has positive gram- negative septicemia with blood cultures being positive for Klebsiella pneumoniae and E. coli on 09/08/2024. Currently off pressors and the patient is hemodynamically stable and the patient remains on IV Zosyn. Bilateral surgical stump dehiscence for above-knee amputation, status post debridement with cultures being positive for strep group B and Serratia and E. coli on the left and Klebsiella pneumonia with strep group B and E. coli on the right. Surgical debridement has been performed on 09/10/2024 and wound VAC has been applied and pulled off by patient 09/21/2024. Hypotension secondary to sepsis, remains on pressors and broad-spectrum antibiotics with IV Zosyn and the patient remains hemodynamically stable CHF with impaired LV function with an ejection fraction of 30 to 35%, repeat limited echocardiogram showed an ejection fraction of 20 to 25% from 09/14/2024 Altered mentation/metabolic encephalopathy/delirium. 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 COPD maintained on a combination of Advair and Incruse on outpatient basis Coronary artery disease with previous stent placement in the mid LAD in October 2023 History of right-sided pleural effusion with a previous thoracentesis on the right, exudate with negative cytology Severe peripheral vascular disease as revealed on the previous CTA of the aorta with runoff and the patient has bilateral above-knee amputations Chronic and ongoing tobacco smoking History of CVA Suspect relative adrenal insufficiency, currently on stress dose hydrocortisone Hypothyroidism currently on Synthroid Transaminitis: Improved Elevated troponins MARCY likely secondary to hypotension: Resolved History of hypertension History of hyperlipidemia Plan: The patient was seen and evaluated Stable and on room air Labs and medications reviewed Plan is for hospice meeting with her son today at 2:00 Plan is to return to [facility] at discharge This patient was seen independently by the pulmonary nurse practitioner addressing pulmonary issues I have personally seen and examined the patient, performed the documentation and the assessment and plan as written. Number of minutes spent on the visit: 23 Dictation was produced using [employer] dictation software. Please excuse any grammatical, word or spelling errors.
--- NOTE | 2024-09-24 09:30 | P.PN ---
Subjective Progress Note Date: 09/16/24 Patient was seen for follow-up. Patient has improved significantly as compared to yesterday. Patient denies headache. She is able to speak much better fluently. She perseverates on 1999. Please refer to examination below. Patient currently receiving Zosyn IV. Offers no complaints. Objective - Vital Signs Vital signs: Vital Signs Temp 97.6 F 09/16/24 15:20 Pulse 86 09/16/24 16:58 Resp 24 09/16/24 15:20 BP 134/74 09/16/24 15:20 Pulse Ox 92 L 09/16/24 15:20 FiO2 1 09/10/24 00:00 Intake & Output 09/16/24 09/16/24 09/17/24 06:59 18:59 06:59 Intake Total 1020 563 Output Total 325 175 Balance 695 388 Weight 52.2 kg 52.2 kg Intake: IV 1020 280 0.9 @ KVO 120 80 Dextrose 5% in Water 1, 800 200 000 ml @ 50 mls/hr IV . Q23H AMANDA with Sodium Bicarb (1 Meq/ml) 150 ml Rx#:[id number] Piperacillin-Tazobactam 3 100 .375 gm In Sodium Chloride 0.9% 100 ml @ 25 mls/hr IVPB Q8HR AMANDA Rx# :[id number] Blood Product 283 Rc Pheresis 2 As3 Unit 283 [id number] Output: Urine 325 175 Other: Voiding Method Indwelling Catheter Indwelling Catheter # Bowel Movements 1 - Exam Patient is much more alert and awake, less encephalopathic, makes eye contact, starting to speak now. She could not tell current month although she states the year is 2025 and that she is in [place]. She perseverates on 1999. Patient is following some directions. Her speech is clear but still limited. Patient has bilateral above-knee amputation. - Labs CBC & Chem 7: 09/23/24 06:46 09/23/24 06:46 Labs: Abnormal Lab Results - Last 24 Hours (Table) 09/16/24 09/16/24 09/16/24 Range/Units 05:35 05:35 07:44 WBC 10.9 H (3.8-10.6) k/uL RBC 1.98 L (3.80-5.40) m/uL Hgb 6.1 L* (11.4-16.0) gm/dL Hct 19.2 L* (34.0-46.0) % RDW 17.1 H (11.5-15.5) % Plt Count 120 L (150-450) k/uL Neutrophils # 9.8 H (1.3-7.7) k/uL Lymphocytes # 0.6 L (1.0-4.8) k/uL Chloride 113 H (98-107) mmol/L BUN 22 H (7-17) mg/dL Creatinine 1.07 H (0.52-1.04) mg/dL Glucose 127 H (74-99) mg/dL Calcium 6.9 L (8.4-10.2) mg/dL Crossmatch See Detail 09/16/24 Range/Units 16:22 WBC 11.9 H (3.8-10.6) k/uL RBC 2.81 L (3.80-5.40) m/uL Hgb 8.3 L D (11.4-16.0) gm/dL Hct 25.8 L (34.0-46.0) % RDW 17.2 H (11.5-15.5) % Plt Count 131 L (150-450) k/uL Neutrophils # (1.3-7.7) k/uL Lymphocytes # (1.0-4.8) k/uL Chloride (98-107) mmol/L BUN (7-17) mg/dL Creatinine (0.52-1.04) mg/dL Glucose (74-99) mg/dL Calcium (8.4-10.2) mg/dL Crossmatch Assessment and Plan Assessment: Altered mental status, likely due to toxic metabolic encephalopathy. Probable septic encephalopathy. History of bilateral AKA Septic shock secondary to infection/dehiscence of the left above-knee surgical wound and right above-knee surgical wound. Gram-negative septicemia Hypotension secondary to sepsis CHF with low EF 30 to 35% COPD History of chronic left ICA occlusion, right ICA 70% stenosis in 2018. CAD Severe peripheral vascular disease Chronic tobacco use Hypothyroidism Elevated troponins MARCY secondary to hypotension, resolved Hypertension Hyperlipidemia Plan: * CT head revealed no acute process. * EEG 09/15/2024 was abnormal due to background slowing of moderate to severe degree. This is suggestive of generalized cerebral dysfunction as can be seen with toxic metabolic encephalopathy related to diffuse structural brain abnormality. Presence of very frequent triphasic waves is consistent with metabolic encephalopathy. Rule out hepatic encephalopathy. When compared to the EEG from 07/31/2024, the background slowing due to encephalopathy and triphasic waves are much worse in the current study. These triphasic waves were seen very sporadically in the prior study, but almost continuous in the current study. * Ammonia < 9 * Carotid Doppler revealed known left ICA occlusion. Measurements suggest a moderate (50 to 69%) right ICA stenosis. Antegrade flow in both vertebral arteries. * Vascular surgery on board. * Patient currently on aspirin 81 mg, Brilinta 90 mg twice daily and Lipitor 80 mg. * Patient currently on Zosyn, midodrine, Remeron. * Avoid hypotension. * We will discontinue tramadol, as It can lower seizure threshold. * Other medical management as per IM and other specialties on board.
--- NOTE | 2024-09-24 09:39 | P.PN ---
Subjective Progress Note Date: 09/17/24 Patient was seen for follow-up. Patient is very interactive, following directions, speaking much more clearly. Please refer to examination below. Patient having some hallucinations, seeing spiders. Her orientation has much improved today. Offers no complaints otherwise. Denies headache. Objective - Vital Signs Vital signs: Vital Signs Temp 97.8 F 09/17/24 16:11 Pulse 113 H 09/17/24 16:11 Resp 16 09/17/24 16:11 BP 126/75 09/17/24 16:11 Pulse Ox 93 L 09/17/24 16:11 FiO2 1 09/10/24 00:00 Intake & Output 09/16/24 09/17/24 09/17/24 18:59 06:59 18:59 Intake Total 563 Output Total 175 400 Balance 388 -400 Weight 52.2 kg 51.2 kg Intake: IV 280 0.9 @ KVO 80 Dextrose 5% in Water 1, 200 000 ml @ 50 mls/hr IV . Q23H AMANDA with Sodium Bicarb (1 Meq/ml) 150 ml Rx#:[id number] Blood Product 283 Rc Pheresis 2 As3 Unit 283 [id number] Output: Drainage 100 Bilateral AKA wound vac 100 Urine 175 300 Other: Voiding Method Indwelling Catheter Indwelling Catheter Indwelling Catheter # Bowel Movements 1 1 - Exam Patient is much more alert and awake. Her speech is mostly clear. Patient knows it is September 2024. She knows that she is in [place] in [facility]. She knows that she is the doctor's building. But then she [place] [facility] [place] [facility] [place] [facility]. Patient is awaiting PICC line placement. Patient has good floral associate. Biceps appears normal. Patient has bilateral above-knee amputation. Her tone has improved. She is more limber. - Labs CBC & Chem 7: 09/23/24 06:46 09/23/24 06:46 Labs: Microbiology - Last 24 Hours (Table) 09/11/24 05:44 Blood Culture Gram Stain - Final Blood Blood Culture - Preliminary Assessment and Plan Assessment: Altered mental status, likely due to toxic metabolic encephalopathy. Probable septic encephalopathy. Patient's mentation has remarkably improved. History of bilateral AKA Septic shock secondary to infection/dehiscence of the left above-knee surgical wound and right above-knee surgical wound. Gram-negative septicemia Hypotension secondary to sepsis CHF with low EF 30 to 35% COPD History of chronic left ICA occlusion, right ICA 70% stenosis in 2018. CAD Severe peripheral vascular disease Chronic tobacco use Hypothyroidism Elevated troponins MARCY secondary to hypotension, resolved Hypertension Hyperlipidemia Plan: * CT head revealed no acute process. * EEG 09/15/2024 was abnormal due to background slowing of moderate to severe degree. This is suggestive of generalized cerebral dysfunction as can be seen with toxic metabolic encephalopathy related to diffuse structural brain abnormality. Presence of very frequent triphasic waves is consistent with metabolic encephalopathy. Rule out hepatic encephalopathy. When compared to the EEG from 07/31/2024, the background slowing due to encephalopathy and tr iphasic waves are much worse in the current study. These triphasic waves were seen very sporadically in the prior study, but almost continuous in the current study. * Patient was on cefepime. However because of abnormal EEG and mentation, cefepime has been discontinued and patient started on Zosyn. * Ammonia < 9 * Carotid Doppler revealed known left ICA occlusion. Measurements suggest a moderate (50 to 69%) right ICA stenosis. Antegrade flow in both vertebral arteries. * Vascular surgery on board. * Patient currently on aspirin 81 mg, Brilinta 90 mg twice daily and Lipitor 80 mg. * Patient currently on Zosyn, midodrine, Remeron. * Avoid hypotension. * We will discontinue tramadol, as It can lower seizure threshold. * Other medical management as per IM and other specialties on board. * Neurologically patient is much improved. Examination nonfocal. No other workup indicated. * Neurology will sign off. Please reconsult neurology if any other concerns.
--- NOTE | 2024-09-24 12:05 | P.PN ---
Subjective Progress Note Date: 09/24/24 69-year-old female with PMH of coronary artery disease hypertension hyperlipidemia CO reflux in this patient who did have right uvrjy-lsa-upoy amputation done at [facility] subsequently left tsnhu-jku-zjgz amputation at [facility]. In the ER x-ray of the right femur showed concerning signs of contiguous osteomyelitis. Initial blood cultures were positive for E. coli plus Klebsiella pneumonia and at that time patient was started on vancomycin and Rocephin while awaiting cultures to finalize. Chest x-ray done on admission showed potential CHF with mild pulmonary vascular c ongestion and trace right pleural effusion which is improved from prior. CBC: WBC 11.3, hemoglobin 9.8, hematocrit 30.7, platelets 270. CMP: Sodium 143, potassium 4.5, CO2 20, BUN 46, creatinine 1.3, glucose 167, total bilirubin 2.3, AST 981, ALT 438, alkaline phosphatase 740. Troponin 0.096. Lactic acid 1.8. Patient is on 2 L nasal cannula SpO2 100%. Patient is seen this morning in the intensive care unit. No significant overnight events. Patient complaining of pain in the bilateral lower extremities (AKA). Ultrasound team is in the room this morning performing abdominal ultrasound. Vital show heart rate 96, respiratory rate 20, blood pressure 102/50, O2 saturation 94% on 2 L nasal cannula. Progress note dated September 10, 2024: Patient is seen in the intensive care unit this morning. No significant overnight events. There was a concern about urine output yesterday, but since then the patient has put out 1.3 L in the last 24 hours. Patient is expected to go for debridement of the bilateral AKA sites today. CBC: WBC 18.2, hemoglobin 9.0, hematocrit 28.4, platelets 270. CMP: Sodium 140, potassium 3.5, chloride 112, BUN 30, creatinine 0.89, calcium 7.6, albumin 2.1, AST 138, ALT 119, alkaline phosphatase 436. Now saturating well on room air, but still requiring Levophed 3 mcg/min after failed attempts to wean yesterday with a dropping MAP. On day 2 of cefepime and vancomycin. LR running at 150 cc/h. Progress note dated September 11, 2024: Patient is seen in the intensive care unit this morning. No significant overnight events. Patient is recovering well after bilateral debridement of the AKA stumps postop day 2. Patient is having some confusion, only A&O x 2, is unable to state the year. Patient was having some hallucinations yesterday, stated seeing a cat in the hallway. Reports better pain control in bilateral AKA stumps after debridement yesterday. CBC: WBC 11.3, hemoglobin 7 .4, platelet count 54. CMP: Sodium 137, potassium 4.2, CO2 18, creatinine 0.8, AST 102, ALT 71, and alkaline phosphatase 49. Continues to saturate well on room air, still requiring levo 3 mcg/min, on day 3 of cefepime and vancomycin, and LR running at 150 cc/h. Left and right leg wound cultures have finalized with Klebsiella, strep agalactiae, E. coli, and Serratia with sensitivities back as well. Progress note dated September 12, 2024: Patient is seen in the intensive care unit this morning. No significant overnight events. CBC: WBC 6.9, hemoglobin 7.6, platelet count 133. CMP: Sodium 135, potassium 3.5, chloride 111 TSH 7.3, free T4 1.74. Levo running at 0.45 mcg/min, reduce LR to 100 cc/h from 150 due to water retention and swelling. Continues saturate well on room air. On day 4 of cefepime and vancomycin. The patient is seen today September 13, 2024 in follow-up in the intensive care unit. She is currently resting comfortably in bed. Awake and alert in no acute distress. She is maintaining O2 saturations in the 90s on room air. She has lactated Ringer's at 20 mL/h. Still requiring norepinephrine at 5.4 mcg/min. She did receive Lasix 20 mg IVP x 1 yesterday with -1.3 L of urine returned. She is on midodrine 10 mg 3 times daily. Left leg wound is positive for Serratia marcescens, gram-negative bacilli and strep agalactiae group B. 12.8. Hemoglobin 10.3. Platelets 183. Sodium 136. Potassium 4.2. Bicarb 17. BUN 17. Creatinine 0.89. Glucose 80. AST 84. ALT 852. Cortisol level was 10.6. She is initiated on on Solu-Cortef 50 mg IV every 6 hours today. She continues on Symbicort. Antibiotics in the form of cefepime and off the vancomycin. The patient is seen today September 21, 2024 in follow-up on the 3 S. floor. She is currently resting in bed. Awake and alert in no acute distress. She is maintaining good O2 saturations in the 90s on room air. She pulled out her PICC line today. She pulled off her wound vacs. She has refused every medication scheduled for her. She has not ate or drank anything today. She refused hospice consult. Glucose 120. Follow-up blood cultures revealed no growth. She was to be receiving Zosyn. The patient is seen today September 22, 2024 in follow-up on the selective care unit. She is currently resting in bed. Awake and alert in no acute distress. He is maintaining good O2 saturations up to 100% on room air. She is afebrile. Hemodynamically stable. She continues to refuse her morning medications. Refusing to eat. Psychiatry has been consulted. Follow-up blood cultures revealing no growth. White count 9.6. Hemoglobin 9.0. Platelets 142. Sodium 148. Potassium 3.1. Bicarb 18. BUN 24. Creatinine 1.47. Glucose 88. She is continued on D5W at 50 mL/h. Heparin for DVT prophylaxis. Remains on Zosyn. The patient is seen today September 23, 2023 in follow-up on the selective care unit. She is currently resting in bed. Awake and alert in no acute distress. A bit more cooperative today. Taking some of her medications. Still with minimal oral intake. She remains on Symbicort, ipratropium bromide. D5W at 50 mL/h. Heparin for DVT prophylaxis. Antibiotics in the form of Zosyn. Continues to maintain good O2 saturation up to 100% on room air. Afebrile. Hemodynamically stable. White count 8.2. Hemoglobin 9.6. Platelets 151. Sodium 144. Potassium 3.6. Bicarb 17. BUN 26. Creatinine 1.56. AST 709. ALT 260 The patient is seen today September 24, 2023 in follow-up on the selective care unit. She is awake and alert in no acute distress. Maintaining good O2 saturations in the upper 90s on room air. She is afebrile. Hemodynamically stable. Most recent hemoglobin was 9.6. Follow-up blood cultures revealed no growth. She remains on Symbicort and DVT prophylaxis. Antibiotics in the form of Zosyn. Continued on D5W at 50 mL/h Objective - Vital Signs Vital signs: Vital Signs Temp 97.5 F L 09/24/24 08:00 Pulse 76 09/24/24 11:23 Resp 16 09/24/24 11:23 BP 120/59 09/24/24 11:23 Pulse Ox 98 09/24/24 11:23 FiO2 1 09/10/24 00:00 Intake & Output 09/23/24 09/24/24 09/24/24 18:59 06:59 18:59 Intake Total 240 Output Total 150 250 275 Balance -150 -250 -35 Intake: Oral 240 Output: Urine 150 250 275 Other: Voiding Method Indwelling Catheter Indwelling Catheter Indwelling Catheter # Bowel Movements 1 1 1 - Exam GENERAL: A 69-year-old female, alert, not in any acute distress. On room air. HEENT: Pupils are round and equally reacting to light. EOMI. No scleral icterus. No conjunctival pallor. Normocephalic, atraumatic. CARDIOVASCULAR: S1 and S2 present. No murmurs, rubs, or gallops. PULMONARY: Chest is clear to auscultation, no wheezing , no crackles. ABDOMEN: Soft, nondistended, normoactive bowel sounds. No palpable organomegaly. Suprapubic tenderness. Infante catheter in place MUSCULOSKELETAL: No joint swelling or deformity. EXTREMITIES: No cyanosis, clubbing. Swelling/minimal edema of the upper extremities bilaterally. Bilateral AKA with superficial wounds that have bilateral dressings in place. NEUROLOGICAL: Gross neurological examination did not reveal any focal deficits. SKIN: No rashes. no petechiae. - Labs CBC & Chem 7: 09/23/24 06:46 09/23/24 06:46 Labs: Microbiology - Last 24 Hours (Table) 09/18/24 07:02 Blood Culture - Final Blood Assessment and Plan Assessment: Septic shock secondary to infection/dehiscence of a left above-knee surgical wound and right above knee surgical wound. The patient has positive gram-neg ative septicemia with blood cultures being positive for Klebsiella pneumoniae and E. coli on 09/08/2024. Currently off pressors and the patient is hemodynamically stable and the patient remains on IV Zosyn. Bilateral surgical stump dehiscence for above-knee amputation, status post debridement with cultures being positive for strep group B and Serratia and E. coli on the left and Klebsiella pneumonia with strep group B and E. coli on the right. Surgical debridement has been performed on 09/10/2024 and wound VAC has been applied and pulled off by patient 09/21/2024. Hypotension secondary to sepsis, remains on pressors and broad-spectrum antibiotics with IV Zosyn and the patient remains hemodynamically stable CHF with impaired LV function with an ejection fraction of 30 to 35%, repeat limited echocardiogram showed an ejection fraction of 20 to 25% from 09/14/2024 Altered mentation/metabolic encephalopathy/delirium. 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 COPD maintained on a combination of Advair and Incruse on outpatient basis Coronary artery disease with previous stent placement in the mid LAD in October 2023 History of right-sided pleural effusion with a previous thoracentesis on the right, exudate with negative cytology Severe peripheral vascular disease as revealed on the previous CTA of the aorta with runoff and the patient has bilateral above-knee amputations Chronic and ongoing tobacco smoking History of CVA Suspect relative adrenal insufficiency, currently on stress dose hydrocortisone Hypothyroidism currently on Synthroid Transaminitis: Improved Elevated troponins MARCY likely secondary to hypotension: Resolved History of hypertension History of hyperlipidemia Plan: The patient was seen and evaluated Stable and on room air Labs and medications reviewed The patient's son did not agree to hospice yesterday Antibiotics could possibly be transitioned to oral Bactrim Plan is to return to [facility] This patient was seen independently by the pulmonary nurse practitioner addressing pulmonary issues I have personally seen and examined the patient, performed the documentation and the assessment and plan as written. Number of minutes spent on the visit: 24 Dictation was produced using [employer] dictation software. Please excuse any grammatical, word or spelling errors.
--- NOTE | 2024-09-24 13:24 | P.PN ---
Subjective Progress Note Date: 09/24/24 This is a pleasant 69 years old female who was sent from [facility] for altered mental status. 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 Since 07/2024. Patient also states she vomited once earlier. Patient fully awake and oriented, can answer questions appropriately and follows command, she does not look in distress. On admission her blood pressure was on the low side 68/53 5 sh she need to be transferred to ICU for start pressors, currently her blood pressure is better 102/50. She is having fever 103 on admission. She denies chest pain or dyspnea no right upper quadrant abdominal pain. No reports of diarrhea. Urine looks dark in the Infante catheter. No dysuria for the patient. Labs reviewed she has unremarkable CBC, BMP and LFT. Urinalysis is highly suspicious for infection Urine culture is pending Abdominal ultrasound showing cholelithiasis with minimal cholecystic fluid with thickening of the adjacent gallbladder suspicious for acute cholecystitis, however clinically does not behave like inflamed gallbladder Femur x-ray showing right AKA stump with hazy ostomy margin suspicious for osteomyelitis by the left AKA showing sharp ostomy margins. Chest x-ray showed combination of COPD and chronic CHF. Patient currently treated with broad-spectrum antibiotics with cefepime and IV vancomycin. Patient also on Ringer lactate at 130 mL/h She is continued on aspirin and Brilinta. 1/2 Patient is up in bed getting breathing treatment fully awake and oriented Still complaining from suprapubic pain and tenderness, Infante catheter is in place and picking up her urine output, overnight her urine output was low so increase her fluid currently she is getting Ringer lactate at 150 mL/h also she is getting Levophed at 0.06. Her urine output this morning improved and curre ntly 50-100. Overnight they tried to wean off Levophed and blood pressure dropped. They will try again this morning. Patient remains on antibiotics cefepime and IV vancomycin for her sepsis, several sources are suspected. Most likely the source is acute urinary tract infection I spoke with Dr. Rg this morning, he still suspect there is acute cholecystitis at the source of her sepsis and he recommended cholecystectomy but not currently because of her clinical condition and because she has been on Brilinta Also she has infected stump wounds in both legs and she is going for OR today especially on the right side however per vascular surgery it is unlikely to be the source of infection. Currently patient n.p.o. for the procedure 09/11 Patient remains awake and alert sitting up in bed. Mentation at baseline. Both AKA stumps are in a dressing after she underwent debridement yesterday, p arents is more severe in these areas as patient explains. However patient still complains from suprapubic and RUQ tenderness today. No other new complaint. The patient She remains on IV vancomycin and cefepime and dual antiplatelet therapy with aspirin and Brilinta from home Her numbers are improving with WBC down 26, 18 and today 11.3, creatinine 1.1 on admission came back to 0.8 Hemoglobin also came down to 9.6 down to 7.4 but this is after debridement and will continue close monitoring and will transfuse if hemoglobin less than 7 Liver enzymes trending down as well Patient continue to need very close monitoring in the ICU with frequent rounding 09/12. Patient seen and examined. Patient is alert, being weaned off the Levophed. Patient is slightly confused. 09/13. Patient seen and examined. Blood work done showed WBC 12.8, hemoglobin 10.3, platelet count 183 sodium 136, potassium 4.2, BUN 17, creatinine 0.89. No acute issues over 09/14 Patient today remains in the ICU however she is very confused, looks mildly agitated and does not answer questions and follow commands. However her abdominal tenderness significantly improved, there is no suprapubic tenderness or RUQ tenderness And both AKA wounds are in dressing and looks. Patient evaluated by neurology service, ordered carotid Doppler showing with known left ICA stenosis and occlusion while right ICA is 50 to 69% occlusion Patient remains on broad-spectrum antibiotic,'s antibiotic switch from cefepime IV vancomycin to Zosyn. His leukocyte count worsened up to 21,000 09/15 Patient remains in the ICU She is still confused and drowsy, she is not answering questions or follows command Her abdomen looks soft with mild suprapubic tenderness Urinary catheter in place. Antibiotic no was adjusted to Zosyn, leukocytosis improved down to 13,000, which is improved Hemoglobin dropped to 7.3 will need close monitoring Patient remains on sodium bicarb drip at 50 mL/h 09/16 Patient is more awake and interactive, she is still somewhat lethargic but significantly improved compared to the last 2 days, she can tell me her name and when she reoriented about time place person she looks to remember. She does not have abdominal pain abdomen is soft Infante catheter in place Today she is developing diarrhea, C. difficile was checked was negative, lung nodule as needed is ordered however we will discontinue Colace patient she was taking. Patient also on Senokot-S as needed. She remains on Zosyn with looks working well for her with leukocytosis improving and mentation is improving 09/17 Patient is awake alert today She is complaining from abdominal pain and diarrhea. However fecal management system was discontinued and she had only 2 loose bowel movement overnight. C. difficile is negative. Patient already on Questran On examination she have mild generalized tenderness little bit on the more on the right side but there is no guarding or rebound tenderness. Patient remains on Zosyn Aspirin ordered but not given. However she is taking the Brilinta. Blood pressure is improved and I do not think she needs midodrine anymore so will be discontinue 09/18. Patient seen and examined. States she feels better. Still complain lethargic and weakness 09/19. Patient seen and examined. Patient blood sugars are low this morning, patient is not eating much. Potassium this morning was 2.7, replacement ordered 09/20. Patient seen and examined. Patient is not eating much.Blood work done this morning showed WBC 17.2, hemoglobin 8.1, platelet count 140, sodium 141, potassium 3.5, BUN 22, creatinine 1.08. Currently on room air patient is lethargic. Patient LFTs are elevated, will DC Lipitor. Start patient on D5W 09/22. Patient seen and examined. Patient is more alert, stated she wants to go back to rehab. Psychiatry consulted for capacity evaluation 09/23. Patient seen and examined. Psychiatry evaluated, patient has no capacity at this time to make decisions regarding treatment. Son contacted, coming this afternoon to talk with hospice 09/24. Patient seen and examined. Hospice discussed with patient's son yesterday, decision made to send patient to rehab with antibiotics, no plan for hospice at this time REVIEW OF SYSTEMS: CONSTITUTIONAL: No fever, no malaise,. CARDIOVASCULAR: No chest pain, no palpitations, no syncope. PULMONARY: No shortness of breath, no cough, GASTROINTESTINAL: No diarrhea, no nausea, no vomiting, no abdominal pain. NEUROLOGICAL: No headaches, no weakness, PHYSICAL EXAMINATION: GENERAL: The patient is alert, chronically ill looking HEENT: Pupils are round and equally reacting to light. EOMI. No scleral icterus. No conjunctival pallor. Normocephalic, atraumatic. No pharyngeal erythema. No thyromegaly. CARDIOVASCULAR: S1 and S2 present. No murmurs, rubs, or gallops. PULMONARY: Diminished breath sound at the bases bilaterally, no wheezing or crackles. ABDOMEN: Soft, nontender, nondistended, normoactive bowel sounds. No palpable o rganomegaly. MUSCULOSKELETAL: No joint swelling or deformity. EXTREMITIES: Bilateral AKA with bandages seen, wound VAC seen NEUROLOGICAL: Gross neurological examination did not reveal any focal deficits. SKIN: No rashes. Assessment and plan Cellulitis and infections of bilateral AKA stumps, there is suspicion of osteomyelitis at the distal margins of the right stump per x-ray. Status post I&D by vascular surgery on 09/10 Acute urinary tract infection with suprapubic tenderness. Urine cultures pending Gallbladder disease with gallstones, but there is suspicion of acute cholecystitis Severe sepsis/septic shock, present on admission, improving Peripheral artery disease Acute transaminitis Monitor vital signs Monitor CBC Monitor CMP Continue telemetry monitoring Trend LFTs Follow-up on blood cultures Continue wound care Continue pain management Continue IV Zosyn Continue aspirin, Brilinta Continue Farxiga Continue Entresto ID following Vascular surgery following Psychiatry evaluated, patient has no capacity at this time to make decisions regarding treatment. Hospice evaluated, patient's son wants patient to be discharged to rehab facility Labs and medication were reviewed.. Continue same treatment. Continue with symptomatic treatment. Resume home medication. Monitor labs and vitals. DVT and GI prophylaxis. Further recommendations as per clinical course of the patient Dictation was produced using [employer] dictation software. please excuse any gr ammatical, word or spelling errors. Objective - Vital Signs Vital signs: Vital Signs Temp 97.5 F L 09/24/24 08:00 Pulse 76 09/24/24 11:23 Resp 16 09/24/24 11:23 BP 120/59 09/24/24 11:23 Pulse Ox 98 09/24/24 11:23 FiO2 1 09/10/24 00:00 Intake & Output 09/23/24 09/24/24 09/24/24 18:59 06:59 18:59 Intake Total 240 Output Total 150 250 275 Balance -150 -250 -35 Intake: Oral 240 Output: Urine 150 250 275 Other: Voiding Method Indwelling Catheter Indwelling Catheter Indwelling Catheter # Bowel Movements 1 1 1 - Labs CBC & Chem 7: 09/23/24 06:46 09/23/24 06:46 Labs: Microbiology - Last 24 Hours (Table) 09/18/24 07:02 Blood Culture - Final Blood
--- NOTE | 2024-09-24 15:10 | P.PN ---
Subjective Progress Note Date: 09/23/24 Principal diagnosis: Reason for follow-up is sepsis bacteremia Patient is a 69-year-old female with multiple comorbidity patient did have a significant PAD and did have a bilateral [id number] amputations with subsequent dehiscence of the wound patient has been sent from the local snf to the hospital with fever, patient be diagnosed with sepsis admitted to the ICU did have a positive blood culture with Klebsiella. Patient is status post surgical debridement of bilateral AKA wound and application of wound VAC culture has been obtained On today's evaluation that is 09/23/2024,the patient denies any fever or any chills, patient is breathing comfortably on room air, the patient denies chest pain shortness of breath and no significant cough, patient denies abdominal pain, no nausea vomiting or diarrhea. No worsening pain to lower extremity wound. Patient did have white count of 8.2, creatinine 1.56 Objective - Vital Signs Vital signs: Vital Signs Temp 97.4 F L 09/23/24 03:40 Pulse 80 09/23/24 08:20 Resp 16 09/23/24 08:20 BP 123/74 09/23/24 08:20 Pulse Ox 100 09/23/24 08:20 FiO2 1 09/10/24 00:00 Intake & Output 09/22/24 09/23/24 09/23/24 18:59 06:59 18:59 Intake Total 437 20 Output Total 400 150 Balance 437 -380 -150 Weight 52.5 kg 52.5 kg Intake: IV 200 20 Dextrose 5% in Water 1, 200 000 ml @ 50 mls/hr IV . Q20H FORMERLY [facility], 1928–1983 Rx#:[id number] Invasive Line 5 20 Oral 237 Output: Urine 400 150 Other: Voiding Method Indwelling Catheter Indwelling Catheter Indwelling Catheter # Bowel Movements 1 1 1 - Exam GENERAL DESCRIPTION: An elderly female lying in bed in no distress RESPIRATORY SYSTEM: Unlabored breathing , decreased breath sounds at bases HEART: S1 S2 regular rate and rhythm , ABDOMEN: Soft , no tenderness EXTREMITIES: Bilateral AKA stump wound is covered with a wound VAC - Labs CBC & Chem 7: 09/23/24 06:46 09/23/24 06:46 Labs: Abnormal Lab Results - Last 24 Hours (Table) 09/23/24 09/23/24 Range/Units 06:46 06:46 RBC 3.01 L (3.80-5.40) m/uL Hgb 9.6 L (11.4-16.0) gm/dL Hct 29.8 L (34.0-46.0) % RDW 19.9 H (11.5-15.5) % Chloride 119 H (98-107) mmol/L Carbon Dioxide 17 L (22-30) mmol/L BUN 26 H (7-17) mg/dL Creatinine 1.56 H (0.52-1.04) mg/dL Calcium 7.1 L (8.4-10.2) mg/dL AST 709 H (14-36) U/L ALT 260 H (4-34) U/L Alkaline Phosphatase 193 H (38-126) U/L Total Protein 5.0 L (6.3-8.2) g/dL Albumin 2.0 L (3.5-5.0) g/dL Assessment and Plan (1) Bilateral lower leg cellulitis Current Visit: Yes Status: Acute Code(s): L03.116 - CELLULITIS OF LEFT LOWER LIMB; L03.115 - CELLULITIS OF RIGHT LOWER LIMB SNOMED Code(s): 353992464 (2) Sepsis Current Visit: Yes Status: Acute Code(s): A41.9 - SEPSIS, UNSPECIFIED ORGANISM SNOMED Code(s): 53439726 (3) Bacteremia Current Visit: Yes Status: Acute Code(s): R78.81 - BACTEREMIA SNOMED Code(s): 8020053 Plan: 1patient is in the hospital with sepsis in this patient with a fever tachycardia elevated white count source is likely bilateral AKA wound and concern for osteomyelitis to the right AKA stump site however the patient also have elevated liver enzyme and there was a history of vomiting underlying abdominal source monitor excluded. 2patient has been evaluated by vascular surgery and is status post debridement of the wound and deep culture completed on 09/10/2024 culture has been E. coli str ep and Serratia marcescens 3patient does have a positive blood culture with Klebsiella, repeat blood cultures has been negative 4 patient is currently on Zosyn she will need for another 4 to 5-week to finish her 6-week course of therapy unfortunately the patient pulled out her PICC line and also had bilateral AKA wound vac and child support case officer mention possible hospice which may be appropriate in that case antibiotics can be discontinued Dictation was produced using [employer] software. please excuse any grammatical, word or spelling errors. Time with Patient: Less than 30
--- NOTE | 2024-09-24 15:11 | P.PN ---
Subjective Progress Note Date: 09/24/24 Principal diagnosis: Reason for follow-up is sepsis bacteremia Patient is a 69-year-old female with multiple comorbidity patient did have a significant PAD and did have a bilateral [id number] amputations with subsequent dehiscence of the wound patient has been sent from the local correction to the hospital with fever, patient be diagnosed with sepsis admitted to the ICU did have a positive blood culture with Klebsiella. Patient is status post surgical debridement of bilateral AKA wound and application of wound VAC culture has been obtained On today's evaluation that is 09/24/2024,the patient remains to be afebrile, patient is on room air not requiring supplemental oxygen and denies any shortness of breath no chest pain or cough.Patient denies having any nausea or vomiting, no abdominal pain and no diarrhea has been reported patient mention wants to go back to her correction. No new lab has been obtained today Objective - Vital Signs Vital signs: Vital Signs Temp 97.5 F L 09/24/24 08:00 Pulse 71 09/24/24 08:00 Resp 17 09/24/24 08:00 BP 121/56 09/24/24 08:00 Pulse Ox 97 09/24/24 08:00 FiO2 1 09/10/24 00:00 Intake & Output 09/23/24 09/24/24 09/24/24 18:59 06:59 18:59 Intake Total 240 Output Total 150 250 275 Balance -150 -250 -35 Intake: Oral 240 Output: Urine 150 250 275 Other: Voiding Method Indwelling Catheter Indwelling Catheter Indwelling Catheter # Bowel Movements 1 1 1 - Exam GENERAL DESCRIPTION: An elderly female lying in bed in no distress RESPIRATORY SYSTEM: Unlabored breathing , decreased breath sounds at bases HEART: S1 S2 regular rate and rhythm , ABDOMEN: Soft , no tenderness EXTREMITIES: Bilateral AKA stump wound with slough tissue no surrounding redness - Labs CBC & Chem 7: 09/23/24 06:46 09/23/24 06:46 Labs: Microbiology - Last 24 Hours (Table) 09/18/24 07:02 Blood Culture - Final Blood Assessment and Plan (1) Bilateral lower leg cellulitis Current Visit: Yes Status: Acute Code(s): L03.116 - CELLULITIS OF LEFT LOWER LIMB; L03.115 - CELLULITIS OF RIGHT LOWER LIMB SNOMED Code(s): 097434703 (2) Sepsis Current Visit: Yes Status: Acute Code(s): A41.9 - SEPSIS, UNSPECIFIED ORGANISM SNOMED Code(s): 47964838 (3) Bacteremia Current Visit: Yes Status: Acute Code(s): R78.81 - BACTEREMIA SNOMED Co de(s): 9897986 Plan: 1patient is in the hospital with sepsis in this patient with a fever tachycardia elevated white count source is likely bilateral AKA wound and concern for osteomyelitis to the right AKA stump site however the patient also have elevated liver enzyme and there was a history of vomiting underlying abdominal source monitor excluded. 2patient has been evaluated by vascular surgery and is status post debridement of the wound and deep culture completed on 09/10/2024 culture has been E. coli strep and Serratia marcescens 3patient does have a positive blood culture with Klebsiella, repeat blood cultures has been negative 4 patient family has refused hospice PICC line has been ordered, the patient will continue with Zosyn for another 4 weeks local wound care per the wound care team Dictation was produced using [employer] dictation software. please excuse any grammatical, word or spelling errors. Time with Patient: Less than 30
[2024-09-25 07:54] LABS: Anisocytosis Moderate; Basophils % (A) 0 %; Eosinophils % (A) 0 %; HCT 31.4 % (34.0-46.0); Hypochromasia Moderate; Lymphocytes # (A) 1.1 k/uL (1.0-4.8); Lymphocytes % (A) 11 %; MCH 31.7 pg (25.0-35.0); MCHC 31.9 g/dL (31.0-37.0); MCV 99.2 fL (80.0-100.0); Macrocytosis Moderate; Monocytes # (A) 0.2 k/uL (0-1.0); Monocytes % (A) 2 %; Neutrophils # (A) 8.7 k/uL (1.3-7.7); Neutrophils % (A) 87 %; Platelet Count 150 k/uL (150-450); Poikilocytosis Slight; RBC 3.16 m/uL (3.80-5.40); RDW 20.9 % (11.5-15.5)
[2024-09-25 08:19] LABS: ALT 284 U/L (4-34); AST 572 U/L (14-36); African American GFR (CKD) 28 (>60 ml/min/1.73 sqM); Albumin 1.8 g/dL (3.5-5.0); Alkaline Phosphatase 164 U/L (38-126); Anion Gap 8 mmol/L; Blood Urea Nitrogen 31 mg/dL (7-17); Calcium 7.3 mg/dL (8.4-10.2); Carbon Dioxide 18 mmol/L (22-30); Chloride 117 mmol/L (98-107); Glucose 79 mg/dL (74-99); Non-African American GFR(CKD) 25 (>60 ml/min/1.73 sqM); Potassium 3.3 mmol/L (3.5-5.1); Sodium 143 mmol/L (137-145); Total Bilirubin 0.7 mg/dL (0.2-1.3); Total Protein 4.4 g/dL (6.3-8.2)
[2024-09-25] MEDS: POTASSIUM CHLORIDE ER 20 MEQ TAB.ER PO SCH (08:56)
--- NOTE | 2024-09-25 10:20 | P.NPCON ---
History of Present Illness - Reason for Consult acute renal failure - History of Present Illness Reason for consultation: Acute kidney injury History of present illness: Patient is a 69-year-old female seen in renal consultation for acute kidney injury. Patient came to the hospital on September 08, 2024 and creatinine was 1.13 and subsequently improved to 0.74 on September 12, 2024. Last few days renal function has been worsening again with creatinine up to 2.01 today. Patient came to the hospital due to not feeling well. She was having nausea and vomiting prior to admission. Subsequently patient was noted to be septic with bilateral lower extremity czdfz-[id number]-glba amputation wound dehiscence. She underwent surgical debridement and placement of wound VAC on September 10, 2024. Blood cultures were positive for Klebsiella and E. coli. Patient has been receiving IV antibiotics. It is noted the patient is also on Entresto as well as Farxiga. Additionally she is also receiving Motrin as needed for fever. Blood pressure stable. Has been voiding. Urine output on the lower end. Receiving D5W at 50 cc an hour. Sodium level 143. Denies history of diabetes. Does have history of coronary disease with cardiac stent. Also has history of systolic CHF ejection fraction of 30 to 35% with mild mitral and tricuspid regurgitation. Vital signs are stable. General: No acute distress. HEENT: Head exam is unremarkable. On room air. LUNGS: No audible rhonchi or wheezes. HEART: Rate and Rhythm are regular. ABDOMEN: Nontender. EXTREMITITES: Bilateral mpiie-qqw-jkub amputations noted. Dressings noted. No drainage. Past Medical History Past Medical History: Coronary Artery Disease (CAD), CVA/TIA, GERD/Reflux, Hyperlipidemia, Hypertension, Myocardial Infarction (DE), Osteoarthritis (OA), Skin Disorder Additional Past Medical History / Comment(s): hx migraines, right AKA, left lower extremity revascularization and stenting, Left AKA Last Myocardial Infarction Date:: History of Any Multi-Drug Resistant Organisms: MRSA Date of last positivie culture/infection: 02/21/18 MDRO Source:: NECK Past Surgical History: Heart Catheterization With Stent, Orthopedic Surgery, Tubal Ligation Additional Past Surgical History / Comment(s): left ankle surgery fracture- pins and plate inserted. 2 cardiac stents, neck surgery, left lower extremity revascularization and stenting and right AKA Past Anesthesia/Blood Transfusion Reactions: No Reported Reaction Date of Last Stent Placement:: 09/2016 Past Psychological History: No Psychological Hx Reported Smoking Status: Former smoker Past Alcohol Use History: Occasional Additional Past Alcohol Use History / Comment(s): started smoking at age 16(1971) and quit 2017, smoked 2 ppd.STARTED SMOKING 2020 SMOKING 1/2 PPD quit smoking a few weeks ago (08/2021) Past Drug Use History: None Reported Additional Drug Use History / Comment(s): OCCASIONAL USE OF MARIJUANA - Past Family History Mother Family Medical History: Hypertension, Myocardial Infarction (DE) Sister(s) Family Medical History: CVA/TIA, Hypertension, Myocardial Infarction (DE) Father Family Medical History: Cancer Additional Family Medical History / Comment(s): colon CA Brother(s) Family Medical History: Coronary Artery Disease (CAD), CVA/TIA Additional Family Medical History / Comment(s): CABG Medications and Allergies Home Medications Medication Instructions Recorded Confirmed Type Acetaminophen [Tylenol 8 Hour] 650 mg PO Q6H PRN 07/24/24 09/08/24 History Naloxone HCl 0.4 mg IM ONCE PRN 07/24/24 09/08/24 History Naloxone HCl [Narcan] 4 mg NASAL ONCE PRN 07/24/24 09/08/24 History Omeprazole Magnesium [PriLOSEC OTC] 40 mg PO DAILY 07/24/24 09/08/24 History Sacubitril/Valsartan [Entresto 24 1 tab PO BID 07/24/24 09/08/24 History mg-26 mg Tablet] Sennosides [Senokot] 8.6 mg PO Q12H PRN 07/24/24 09/08/24 History Ticagrelor [Brilinta] 90 mg PO BID 07/24/24 09/08/24 History polyethylene glycoL 3350 [Miralax] 17 gm PO DAILY PRN 07/24/24 09/08/24 History Dapagliflozin Propanediol [Farxiga] 10 mg PO DAILY tab 08/03/24 09/08/24 Rx Metoprolol Succinate (ER) [Toprol 12.5 mg PO DAILY tab 08/03/24 09/08/24 Rx XL] Pregabalin [Lyrica] 50 mg PO TID@0700,1300,1900 #6 cap 08/04/24 09/08/24 Rx Aspirin 81 mg PO HS 08/07/24 09/08/24 History Furosemide [Lasix] 20 mg PO DAILY 08/07/24 09/08/24 History Mirtazapine [Remeron] 15 mg PO HS 08/07/24 09/08/24 History methocarbamoL [Robaxin-750] 750 mg PO QID PRN 08/07/24 09/08/24 History Atorvastatin [Lipitor] 80 mg PO HS 09/08/24 09/08/24 History Diphenhydramine Hcl Injection 25 mg IM Q4H PRN 09/08/24 09/08/24 History 50mg/Ml Docusate [Colace] 100 mg PO BID 09/08/24 09/08/24 History Fluticasone Propion/Salmeterol 1 puff INHALATION RT-BID@0700,1900 09/08/24 09/08/24 History [Fluticasone-Salmeterol 100-50] Midodrine HCl [ProAmantine] 2.5 mg PO TID@07,13,19 09/08/24 09/08/24 History Ondansetron [Zofran] 4 mg PO Q8HR PRN 09/08/24 09/08/24 History Spironolactone [Aldactone] 12.5 mg PO DAILY 09/08/24 09/08/24 History Umeclidinium [place] [Incruse 1 puff INHALATION RT-DAILY 09/08/24 09/08/24 History Ellipta] traMADol HCL 50 mg PO Q6H PRN 09/08/24 09/08/24 History Allergies Allergy/AdvReac Type Severity Reaction Status Date / Time No Known Allergies Allergy Verified 09/08/24 14:51 Physical Exam Vitals: Vital Signs Temp Pulse Resp BP Pulse Ox 09/25/24 08:00 97.7 F 75 17 118/68 98 09/25/24 04:00 97.7 F 75 14 108/67 97 09/25/24 00:00 78 18 99/63 96 09/24/24 21:00 97.7 F 80 18 104/68 96 09/24/24 16:00 97.8 F 81 16 113/59 97 09/24/24 11:23 76 16 120/59 98 Intake and Output 09/24/24 09/25/2409/25/25 22:59 06:59 14:59 Intake Total 240 240 Output Total 100 200 275 Balance 140 -200 -35 Intake: Oral 240 240 Output: Urine 100 200 275 Other: Voiding Method Indwelling Catheter Indwelling Catheter Indwelling Catheter # Bowel Movements 1 1 1 Weight 52.5 kg Results - Lab Results Most recent lab results Calcium 7.3 mg/dL (8.4-10.2) L 09/25/24 07:01 09/25/24 07:01 09/25/24 07:01 Assessment and Plan Plan: Assessment: 1. Acute kidney injury secondary to ATN secondary to severe sepsis further worsen with the use of Farxiga and Entresto. Creatinine 2.01 today. Baseline creatinine near 1. Abdominal ultrasound showed atrophic left kidney with no evidence of hydronephrosis. 2. Severe sepsis secondary to osteomyelitis of right AKA stump status post paul gical debridement this admission. Blood cultures positive for E. coli and Klebsiella. On IV antibiotics. 3. Hypokalemia from poor intake. Being replaced. 4. Hypernatremia from lack of oral water intake. Improved with D5W. 5. Metabolic acidosis secondary to acute kidney injury. 6. Coronary artery disease. 7. Chronic systolic CHF ejection fraction of 30 to 35% with mild mitral and tricuspid regurgitation. Plan: Change IV fluids to bicarb drip at 75 cc an hour. Stop Farxiga. Avoid nephrotoxins. Stop ibuprofen. Maintain Infante catheter. Strict I's and O's. Repeat labs in the morning. If GFR further worsens, will need to hold Entresto. Thank you for the consultation. I will continue to follow the patient with you during her hospital stay.
[2024-09-25] MEDS: DEXTROSE 5% IN WATER 1,000 ML with SODIUM BICARB (1 MEQ/ML) 150 ML IV SCH (10:57)
--- NOTE | 2024-09-25 12:54 | P.PN ---
Subjective Progress Note Date: 09/25/24 69-year-old female with PMH of coronary artery disease hypertension hyperlipidemia IL reflux in this patient who did have right isizr-asz-bvql amputation done at [facility] subsequently left iihsv-kll-bobp amputation at [facility]. In the ER x-ray of the right femur showed concerning signs of contiguous osteomyelitis. Initial blood cultures were positive for E. coli plus Klebsiella pneumonia and at that time patient was started on vancomycin and Rocephin while awaiting cultures to finalize. Chest x-ray done on admission showed potential CHF with mild pulmonary vascular c ongestion and trace right pleural effusion which is improved from prior. CBC: WBC 11.3, hemoglobin 9.8, hematocrit 30.7, platelets 270. CMP: Sodium 143, potassium 4.5, CO2 20, BUN 46, creatinine 1.3, glucose 167, total bilirubin 2.3, AST 981, ALT 438, alkaline phosphatase 740. Troponin 0.096. Lactic acid 1.8. Patient is on 2 L nasal cannula SpO2 100%. Patient is seen this morning in the intensive care unit. No significant overnight events. Patient complaining of pain in the bilateral lower extremities (AKA). Ultrasound team is in the room this morning performing abdominal ultrasound. Vital show heart rate 96, respiratory rate 20, blood pressure 102/50, O2 saturation 94% on 2 L nasal cannula. Progress note dated September 10, 2024: Patient is seen in the intensive care unit this morning. No significant overnight events. There was a concern about urine output yesterday, but since then the patient has put out 1.3 L in the last 24 hours. Patient is expected to go for debridement of the bilateral AKA sites today. CBC: WBC 18.2, hemoglobin 9.0, hematocrit 28.4, platelets 270. CMP: Sodium 140, potassium 3.5, chloride 112, BUN 30, creatinine 0.89, calcium 7.6, albumin 2.1, AST 138, ALT 119, alkaline phosphatase 436. Now saturating well on room air, but still requiring Levophed 3 mcg/min after failed attempts to wean yesterday with a dropping MAP. On day 2 of cefepime and vancomycin. LR running at 150 cc/h. Progress note dated September 11, 2024: Patient is seen in the intensive care unit this morning. No significant overnight events. Patient is recovering well after bilateral debridement of the AKA stumps postop day 2. Patient is having some confusion, only A&O x 2, is unable to state the year. Patient was having some hallucinations yesterday, stated seeing a cat in the hallway. Reports better pain control in bilateral AKA stumps after debridement yesterday. CBC: WBC 11.3, hemoglobin 7 .4, platelet count 54. CMP: Sodium 137, potassium 4.2, CO2 18, creatinine 0.8, AST 102, ALT 71, and alkaline phosphatase 49. Continues to saturate well on room air, still requiring levo 3 mcg/min, on day 3 of cefepime and vancomycin, and LR running at 150 cc/h. Left and right leg wound cultures have finalized with Klebsiella, strep agalactiae, E. coli, and Serratia with sensitivities back as well. Progress note dated September 12, 2024: Patient is seen in the intensive care unit this morning. No significant overnight events. CBC: WBC 6.9, hemoglobin 7.6, platelet count 133. CMP: Sodium 135, potassium 3.5, chloride 111 TSH 7.3, free T4 1.74. Levo running at 0.45 mcg/min, reduce LR to 100 cc/h from 150 due to water retention and swelling. Continues saturate well on room air. On day 4 of cefepime and vancomycin. The patient is seen today September 13, 2024 in follow-up in the intensive care unit. She is currently resting comfortably in bed. Awake and alert in no acute distress. She is maintaining O2 saturations in the 90s on room air. She has lactated Ringer's at 20 mL/h. Still requiring norepinephrine at 5.4 mcg/min. She did receive Lasix 20 mg IVP x 1 yesterday with -1.3 L of urine returned. She is on midodrine 10 mg 3 times daily. Left leg wound is positive for Serratia marcescens, gram-negative bacilli and strep agalactiae group B. 12.8. Hemoglobin 10.3. Platelets 183. Sodium 136. Potassium 4.2. Bicarb 17. BUN 17. Creatinine 0.89. Glucose 80. AST 84. ALT 852. Cortisol level was 10.6. She is initiated on on Solu-Cortef 50 mg IV every 6 hours today. She continues on Symbicort. Antibiotics in the form of cefepime and off the vancomycin. The patient is seen today September 21, 2024 in follow-up on the 3 S. floor. She is currently resting in bed. Awake and alert in no acute distress. She is maintaining good O2 saturations in the 90s on room air. She pulled out her PICC line today. She pulled off her wound vacs. She has refused every medication scheduled for her. She has not ate or drank anything today. She refused hospice consult. Glucose 120. Follow-up blood cultures revealed no growth. She was to be receiving Zosyn. The patient is seen today September 22, 2024 in follow-up on the selective care unit. She is currently resting in bed. Awake and alert in no acute distress. He is maintaining good O2 saturations up to 100% on room air. She is afebrile. Hemodynamically stable. She continues to refuse her morning medications. Refusing to eat. Psychiatry has been consulted. Follow-up blood cultures revealing no growth. White count 9.6. Hemoglobin 9.0. Platelets 142. Sodium 148. Potassium 3.1. Bicarb 18. BUN 24. Creatinine 1.47. Glucose 88. She is continued on D5W at 50 mL/h. Heparin for DVT prophylaxis. Remains on Zosyn. The patient is seen today September 23, 2023 in follow-up on the selective care unit. She is currently resting in bed. Awake and alert in no acute distress. A bit more cooperative today. Taking some of her medications. Still with minimal oral intake. She remains on Symbicort, ipratropium bromide. D5W at 50 mL/h. Heparin for DVT prophylaxis. Antibiotics in the form of Zosyn. Continues to maintain good O2 saturation up to 100% on room air. Afebrile. Hemodynamically stable. White count 8.2. Hemoglobin 9.6. Platelets 151. Sodium 144. Potassium 3.6. Bicarb 17. BUN 26. Creatinine 1.56. AST 709. ALT 260 The patient is seen today September 24, 2023 in follow-up on the selective care unit. She is awake and alert in no acute distress. Maintaining good O2 saturations in the upper 90s on room air. She is afebrile. Hemodynamically stable. Most recent hemoglobin was 9.6. Follow-up blood cultures revealed no growth. She remains on Symbicort and DVT prophylaxis. Antibiotics in the form of Zosyn. Continued on D5W at 50 mL/h The patient is seen today September 25, 2023 in follow-up on the selective care unit. She is currently resting in bed. Awake and alert in no acute distress. Continues to maintain good O2 saturations in the mid to upper 90s on room air. Afebrile. Hemodynamically stable. She did allow a midline IV catheter to be placed and has not pulled it out thus far. She is continued on Zosyn. She is now on D5W with 3 A of bicarb at 75 mL/h per nephrology. White count 10.0. Hemoglobin 10.0. Platelets 150. Sodium 143. Potassium 3.3. Bicarb 18. BUN 31. Creatinine 2.01. AST 572. ALT 284. Alk phos 164. Glucose 79. Continued on Symbicort. Heparin for DVT prophylaxis. Objective - Vital Signs Vital signs: Vital Signs Temp 97.7 F 09/25/24 08:00 Pulse 76 09/25/24 11:32 Resp 16 09/25/24 11:32 BP 107/68 09/25/24 11:32 Pulse Ox 95 09/25/24 11:32 FiO2 1 09/10/24 00:00 Intake & Output 09/24/24 09/25/24 09/25/24 18:59 06:59 18:59 Intake Total 480 240 Output Total 375 200 275 Balance 105 -200 -35 Weight 52.5 kg Intake: Oral 480 240 Output: Urine 375 200 275 Other: Voiding Method Indwelling Catheter Indwelling Catheter Indwelling Catheter # Bowel Movements 1 1 1 - Exam GENERAL: A 69-year-old female, alert, resting comfortably in bed, not in any acute distress. On room air. HEENT: Pupils are round and equally reacting to light. EOMI. No scleral icterus. No conjunctival pallor. Normocephalic, atraumatic. CARDIOVASCULAR: S1 and S2 present. No murmurs, rubs, or gallops. PULMONARY: Chest is clear to auscultation, no wheezing , no crackles. ABDOMEN: Soft, nondistended, normoactive bowel sounds. No palpable organomegaly. Suprapubic tenderness. Infante catheter in place MUSCULOSKELETAL: No joint swelling or deformity. EXTREMITIES: No cyanosis, clubbing. Swelling/minimal edema of the upper extremities bilaterally. Bilateral AKA with superficial wounds that have bilateral dressings in place. NEUROLOGICAL: Gross neurological examination did not reveal any focal deficits. SKIN: No rashes. no petechiae. - Labs CBC & Chem 7: 09/25/24 07:01 09/25/24 07:01 Labs: Abnormal Lab Results - Last 24 Hours (Table) 09/25/24 09/25/24 Range/Units 07:01 07:01 RBC 3.16 L (3.80-5.40) m/uL Hgb 10.0 L (11.4-16.0) gm/dL Hct 31.4 L (34.0-46.0) % RDW 20.9 H (11.5-15.5) % Neutrophils # 8.7 H (1.3-7.7) k/uL Potassium 3.3 L (3.5-5.1) mmol/L Chloride 117 H (98-107) mmol/L Carbon Dioxide 18 L (22-30) mmol/L BUN 31 H (7-17) mg/dL Creatinine 2.01 H (0.52-1.04) mg/dL Calcium 7.3 L (8.4-10.2) mg/dL AST 572 H (14-36) U/L ALT 284 H (4-34) U/L Alkaline Phosphatase 164 H (38-126) U/L Total Protein 4.4 L (6.3-8.2) g/dL Albumin 1.8 L (3.5-5.0) g/dL Assessment and Plan Assessment: Septic shock secondary to infection/dehiscence of a left above-knee surgical wound and right above knee surgical wound. The patient has positive gram- negative septicemia with blood cultures being positive for Klebsiella pneumoniae and E. coli on 09/08/2024. Currently off pressors and the patient is hemodynamically stable and the patient remains on IV Zosyn. Bilateral surgical stump dehiscence for above-knee amputation, status post debridement with cultures being positive for strep group B and Serratia and E. coli on the left and Klebsiella pneumonia with strep group B and E. coli on the right. Surgical debridement has been performed on 09/10/2024 and wound VAC has been applied and pulled off by patient 09/21/2024. Hypotension secondary to sepsis, remains on pressors and broad-spectrum antibiotics with IV Zosyn and the patient remains hemodynamically stable CHF with impaired LV function with an ejection fraction of 30 to 35%, repeat limited echocardiogram showed an ejection fraction of 20 to 25% from 09/14/2024 Altered mentation/metabolic encephalopathy/delirium. 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 COPD maintained on a combination of Advair and Incruse on outpatient basis Coronary artery disease with previous stent placement in the mid LAD in October 2023 History of right-sided pleural effusion with a previous thoracentesis on the right, exudate with negative cytology Severe peripheral vascular disease as revealed on the previous CTA of the aorta with runoff and the patient has bilateral above-knee amputations Chronic and ongoing tobacco smoking History of CVA Suspect relative adrenal insufficiency, currently on stress dose hydrocortisone Hypothyroidism currently on Synthroid Transaminitis: Improved Elevated troponins MARCY likely secondary to hypotension: Resolved History of hypertension History of hyperlipidemia Plan: The patient was seen and evaluated Stable and on room air Labs and medications reviewed She has been initiated on a bicarb drip Mid line placed, remains on Zosyn Patient and family declined hospice Plan is to return to [facility] at discharge This patient was seen independently by the pulmonary nurse practitioner addressing pulmonary issues I have personally seen and examined the patient, performed the documentation and the assessment and plan as written. Number of minutes spent on the visit: 25 Dictation was produced using [employer] dictation software. Please excuse any gr ammatical, word or spelling errors.
--- NOTE | 2024-09-25 15:29 | P.PN ---
Subjective Progress Note Date: 09/25/24 Principal diagnosis: Reason for follow-up is sepsis bacteremia Patient is a 69-year-old female with multiple comorbidity patient did have a significant PAD and did have a bilateral rmxzk-bai-snvq amputations with subsequent dehiscence of the wound patient [facility] with fever, patient be diagnosed with sepsis admitted to the ICU did have a positive blood culture with Klebsiella. Patient is status post surgical debridement of bilateral AKA wound and application of wound VAC culture has been obtained On today's evaluation that is 09/25/2024, the patient continues to be afebrile, the patient is on room air and breathing comfortably, the Pt denies having any chest pain or cough, the patient denies having any abdominal pain no vomiting or any diarrhea has been reported by the nursing staff. Patient white count is 10.0, creatinine 2.01 Objective - Vital Signs Vital signs: Vital Signs Temp 97.7 F 09/25/24 08:00 Pulse 76 09/25/24 11:32 Resp 16 09/25/24 11:32 BP 107/68 09/25/24 11:32 Pulse Ox 95 09/25/24 11:32 FiO2 1 09/10/24 00:00 Intake & Output 09/24/24 09/25/24 09/25/24 18:59 06:59 18:59 Intake Total 480 240 Output Total 375 200 275 Balance 105 -200 -35 Weight 52.5 kg 52.5 kg Intake: Oral 480 240 Output: Urine 375 200 275 Other: Voiding Method Indwelling Catheter Indwelling Catheter Indwelling Catheter # Bowel Movements 1 1 1 - Exam GENERAL DESCRIPTION: An elderly female lying in bed in no distress RESPIRATORY SYSTEM: Unlabored breathing , decreased breath sounds at bases HEART: S1 S2 regular rate and rhythm , ABDOMEN: Soft , no tenderness EXTREMITIES: Bilateral AKA stump wound with slough tissue no surrounding redness - Labs CBC & Chem 7: 09/25/24 07:01 09/25/24 07:01 Labs: Abnormal Lab Results - Last 24 Hours (Table) 09/25/24 09/25/24 Range/Units 07:01 07:01 RBC 3.16 L (3.80-5.40) m/uL Hgb 10.0 L (11.4-16.0) gm/dL Hct 31.4 L (34.0-46.0) % RDW 20.9 H (11.5-15.5) % Neutrophils # 8.7 H (1.3-7.7) k/uL Potassium 3.3 L (3.5-5.1) mmol/L Chloride 117 H (98-107) mmol/L Carbon Dioxide 18 L (22-30) mmol/L BUN 31 H (7-17) mg/dL Creatinine 2.01 H (0.52-1.04) mg/dL Calcium 7.3 L (8.4-10.2) mg/dL AST 572 H (14-36) U/L ALT 284 H (4-34) U/L Alkaline Phosphatase 164 H (38-126) U/L Total Protein 4.4 L (6.3-8.2) g/dL Albumin 1.8 L (3.5-5.0) g/dL Assessment and Plan (1) Bilateral lower leg cellulitis Current Visit: Yes Status: Acute Code(s): L03.116 - CELLULITIS OF LEFT LOWER LIMB; L03.115 - CELLULITIS OF RIGHT LOWER LIMB SNOMED Code(s): 233998540 (2) Sepsis Current Visit: Yes Status: Acute Code(s): A41.9 - SEPSIS, UNSPECIFIED ORGANISM SNOMED Code(s): 93948988 (3) Bacteremia Current Visit: Yes Status: Acute Code(s): R78.81 - BACTEREMIA SNOMED Code(s): 5936096 Plan: 1patient is in the hospital with sepsis in this patient with a fever tachycardia elevated white count source is likely bilateral AKA wound and concern for osteomyelitis to the right AKA stump site however the patient also have elevated liver enzyme and there was a history of vomiting underlying abdominal source monitor excluded. 2patient has been evaluated by vascular surgery and is status post debridement of the wound and deep culture completed on 09/10/2024 culture has been E. coli strep and Serratia marcescens 3patient does have a positive blood culture with Klebsiella, repeat blood cultures has been negative 4 patient did have placement of another PICC line to continue with the Zosyn for another 4 weeks to finish his 6-week course of therapy for underlying osteomyelitis involving the bilateral AKA stump wound Son at the bedside multiple question concern answered Dictation was produced using [employer] ([employer]ation software. please excuse any grammatical, word or spelling errors. Time with Patient: Less than 30
[2024-09-25] MEDS: HYDROmorphone 0.5 MG/0.5 ML SYRINGE IVP STA (18:40)
[2024-09-25] MEDS: PIPERACILLIN-TAZOBACTAM 3.375 GM in SODIUM CHLORIDE 0.9% 100 ML IVPB SCH (23:30)
--- NOTE | 2024-09-26 10:20 | P.PN ---
Subjective Patient is seen in follow-up for acute kidney injury. Creatinine 2.01 yesterday. Resting in bed. On bicarb drip. Nonoliguric. Oral intake fair. Vital signs are stable. General: No acute distress. HEENT: Head exam is unremarkable. LUNGS: No audible rhonchi or wheezes. HEART: Rate and Rhythm are regular. ABDOMEN: Nontender. EXTREMITITES: Left wound stump noted. Lower extremity amputations noted. Objective - Vital Signs Vital signs: Vital Signs Temp 97.4 F L 09/26/24 08:25 Pulse 67 09/26/24 08:25 Resp 16 09/26/24 08:25 BP 115/66 09/26/24 08:25 Pulse Ox 90 L 09/26/24 08:25 FiO2 1 09/10/24 00:00 Intake & Output 09/25/24 09/26/24 09/26/24 18:59 06:59 18:59 Intake Total 480 600 Output Total 450 Balance 30 600 Weight 52.5 kg 52.5 kg Intake: Intake, IV Titration 600 Amount Dextrose 5% in Water 1, 600 000 ml @ 75 mls/hr IV . [id number] AMANDA with Sodium Bicarb (1 Meq/ml) 150 ml Rx#:[id number] Oral 480 Output: Urine 450 Other: Voiding Method Indwelling Catheter Indwelling Catheter Indwelling Catheter # Bowel Movements 1 1 - Labs CBC & Chem 7: 09/25/24 07:01 09/25/24 07:01 Assessment and Plan Plan: Assessment: 1. Acute kidney injury secondary to ATN secondary to severe sepsis further worsen with the use of Farxiga and Entresto. Creatinine 2.01 yesterday. Baseline creatinine near 1. Abdominal ultrasound showed atrophic left kidney with no evidence of hydronephrosis. 2. Severe sepsis secondary to osteomyelitis of right AKA stump status post surgical debridement this admission. Blood cultures positive for E. coli and Klebsiella. On IV antibiotics. 3. Hypokalemia from poor intake. Replaced. 4. Hypernatremia from lack of oral water intake. Status post D5W. Improved. 5. Metabolic acidosis secondary to acute kidney injury. On bicarb drip. 6. Coronary artery disease. 7. Chronic systolic CHF ejection fraction of 30 to 35% with mild mitral and tricuspid regurgitation. Plan: Maintain bicarb drip for now. Farxiga discontinued. Avoid nephrotoxins. Ibuprofen discontinued. Maintain Infante catheter. Strict I's and O's. Repeat labs in the morning. If GFR further worsens, will need to hold Entresto. Morning labs pending.
--- NOTE | 2024-09-26 10:54 | P.PN ---
Subjective Progress Note Date: 09/26/24 69-year-old female with PMH of coronary artery disease hypertension hyperlipidemia ND reflux in this patient who did have right [id number] amputation done at [facility] subsequently left ucxyo-[id number] amputation at [facility]. In the ER x-ray of the right femur showed concerning signs of contiguous osteomyelitis. Initial blood cultures were positive for E. coli plus Klebsiella pneumonia and at that time patient was started on vancomycin and Rocephin while awaiting cultures to finalize. Chest x-ray done on admission showed potential CHF with mild pulmonary vascular c ongestion and trace right pleural effusion which is improved from prior. CBC: WBC 11.3, hemoglobin 9.8, hematocrit 30.7, platelets 270. CMP: Sodium 143, potassium 4.5, CO2 20, BUN 46, creatinine 1.3, glucose 167, total bilirubin 2.3, AST 981, ALT 438, alkaline phosphatase 740. Troponin 0.096. Lactic acid 1.8. Patient is on 2 L nasal cannula SpO2 100%. Patient is seen this morning in the intensive care unit. No significant overnight events. Patient complaining of pain in the bilateral lower extremities (AKA). Ultrasound team is in the room this morning performing abdominal ultrasound. Vital show heart rate 96, respiratory rate 20, blood pressure 102/50, O2 saturation 94% on 2 L nasal cannula. Progress note dated September 10, 2024: Patient is seen in the intensive care unit this morning. No significant overnight events. There was a concern about urine output yesterday, but since then the patient has put out 1.3 L in the last 24 hours. Patient is expected to go for debridement of the bilateral AKA sites today. CBC: WBC 18.2, hemoglobin 9.0, hematocrit 28.4, platelets 270. CMP: Sodium 140, potassium 3.5, chloride 112, BUN 30, creatinine 0.89, calcium 7.6, albumin 2.1, AST 138, ALT 119, alkaline phosphatase 436. Now saturating well on room air, but still requiring Levophed 3 mcg/min after failed attempts to wean yesterday with a dropping MAP. On day 2 of cefepime and vancomycin. LR running at 150 cc/h. Progress note dated September 11, 2024: Patient is seen in the intensive care unit this morning. No significant overnight events. Patient is recovering well after bilateral debridement of the AKA stumps postop day 2. Patient is having some confusion, only A&O x 2, is unable to state the year. Patient was having some hallucinations yesterday, stated seeing a cat in the hallway. Reports better pain control in bilateral AKA stumps after debridement yesterday. CBC: WBC 11.3, hemoglobin 7 .4, platelet count 54. CMP: Sodium 137, potassium 4.2, CO2 18, creatinine 0.8, AST 102, ALT 71, and alkaline phosphatase 49. Continues to saturate well on room air, still requiring levo 3 mcg/min, on day 3 of cefepime and vancomycin, and LR running at 150 cc/h. Left and right leg wound cultures have finalized with Klebsiella, strep agalactiae, E. coli, and Serratia with sensitivities back as well. Progress note dated September 12, 2024: Patient is seen in the intensive care unit this morning. No significant overnight events. CBC: WBC 6.9, hemoglobin 7.6, platelet count 133. CMP: Sodium 135, potassium 3.5, chloride 111 TSH 7.3, free T4 1.74. Levo running at 0.45 mcg/min, reduce LR to 100 cc/h from 150 due to water retention and swelling. Continues saturate well on room air. On day 4 of cefepime and vancomycin. The patient is seen today September 13, 2024 in follow-up in the intensive care unit. She is currently resting comfortably in bed. Awake and alert in no acute distress. She is maintaining O2 saturations in the 90s on room air. She has lactated Ringer's at 20 mL/h. Still requiring norepinephrine at 5.4 mcg/min. She did receive Lasix 20 mg IVP x 1 yesterday with -1.3 L of urine returned. She is on midodrine 10 mg 3 times daily. Left leg wound is positive for Serratia marcescens, gram-negative bacilli and strep agalactiae group B. 12.8. Hemoglobin 10.3. Platelets 183. Sodium 136. Potassium 4.2. Bicarb 17. BUN 17. Creatinine 0.89. Glucose 80. AST 84. ALT 852. Cortisol level was 10.6. She is initiated on on Solu-Cortef 50 mg IV every 6 hours today. She continues on Symbicort. Antibiotics in the form of cefepime and off the vancomycin. The patient is seen today September 21, 2024 in follow-up on the 3 S. floor. She is currently resting in bed. Awake and alert in no acute distress. She is maintaining good O2 saturations in the 90s on room air. She pulled out her PICC line today. She pulled off her wound vacs. She has refused every medication scheduled for her. She has not ate or drank anything today. She refused hospice consult. Glucose 120. Follow-up blood cultures revealed no growth. She was to be receiving Zosyn. The patient is seen today September 22, 2024 in follow-up on the selective care unit. She is currently resting in bed. Awake and alert in no acute distress. He is maintaining good O2 saturations up to 100% on room air. She is afebrile. Hemodynamically stable. She continues to refuse her morning medications. Refusing to eat. Psychiatry has been consulted. Follow-up blood cultures revealing no growth. White count 9.6. Hemoglobin 9.0. Platelets 142. Sodium 148. Potassium 3.1. Bicarb 18. BUN 24. Creatinine 1.47. Glucose 88. She is continued on D5W at 50 mL/h. Heparin for DVT prophylaxis. Remains on Zosyn. The patient is seen today September 23, 2023 in follow-up on the selective care unit. She is currently resting in bed. Awake and alert in no acute distress. A bit more cooperative today. Taking some of her medications. Still with minimal oral intake. She remains on Symbicort, ipratropium bromide. D5W at 50 mL/h. Heparin for DVT prophylaxis. Antibiotics in the form of Zosyn. Continues to maintain good O2 saturation up to 100% on room air. Afebrile. Hemodynamically stable. White count 8.2. Hemoglobin 9.6. Platelets 151. Sodium 144. Potassium 3.6. Bicarb 17. BUN 26. Creatinine 1.56. AST 709. ALT 260 The patient is seen today September 24, 2023 in follow-up on the selective care unit. She is awake and alert in no acute distress. Maintaining good O2 saturations in the upper 90s on room air. She is afebrile. Hemodynamically stable. Most recent hemoglobin was 9.6. Follow-up blood cultures revealed no growth. She remains on Symbicort and DVT prophylaxis. Antibiotics in the form of Zosyn. Continued on D5W at 50 mL/h The patient is seen today September 25, 2023 in follow-up on the selective care unit. She is currently resting in bed. Awake and alert in no acute distress. Continues to maintain good O2 saturations in the mid to upper 90s on room air. Afebrile. Hemodynamically stable. She did allow a midline IV catheter to be placed and has not pulled it out thus far. She is continued on Zosyn. She is now on D5W with 3 A of bicarb at 75 mL/h per nephrology. White count 10.0. Hemoglobin 10.0. Platelets 150. Sodium 143. Potassium 3.3. Bicarb 18. BUN 31. Creatinine 2.01. AST 572. ALT 284. Alk phos 164. Glucose 79. Continued on Symbicort. Heparin for DVT prophylaxis. The patient is seen today September 26, 2023 in follow-up on the selective care unit. She is awake and alert in no acute distress. Sitting up in bed. Denies any worsening shortness of breath, cough or congestion. Maintaining good O2 saturations in the 90s on room air. She is continued on Symbicort and Atrovent. Heparin for DVT prophylaxis. D5W with 3 A of bicarb at 75 mL/h. Remains on Zosyn. Today's labs are pending. Objective - Vital Signs Vital signs: Vital Signs Temp 97.4 F L 09/26/24 08:25 Pulse 67 09/26/24 08:25 Resp 16 09/26/24 08:25 BP 115/66 09/26/24 08:25 Pulse Ox 90 L 09/26/24 08:25 FiO2 1 09/10/24 00:00 Intake & Output 09/25/24 09/26/24 09/26/24 18:59 06:59 18:59 Intake Total 480 600 Output Total 450 Balance 30 600 Weight 52.5 kg 52.5 kg Intake: Intake, IV Titration 600 Amount Dextrose 5% in Water 1, 600 000 ml @ 75 mls/hr IV . [id number] AMANDA with Sodium Bicarb (1 Meq/ml) 150 ml Rx#:[id number] Oral 480 Output: Urine 450 Other: Voiding Method Indwelling Catheter Indwelling Catheter Indwelling Catheter # Bowel Movements 1 1 - Exam GENERAL: A pleasant 69-year-old female, alert, not in any acute distress. On room air. HEENT: Pupils are round and equally reacting to light. EOMI. No scleral icterus. No conjunctival pallor. Normocephalic, atraumatic. CARDIOVASCULAR: S1 and S2 present. No murmurs, rubs, or gallops. PULMONARY: Chest is clear to auscultation, no wheezing , no crackles. ABDOMEN: Soft, nondistended, normoactive bowel sounds. No palpable organomegaly. Infante catheter in place MUSCULOSKELETAL: No joint swelling or deformity. EXTREMITIES: Swelling/minimal edema of the upper extremities bilaterally. Bilateral AKA with superficial wounds that have bilateral dressings in place. NEUROLOGICAL: Gross neurological examination did not reveal any focal deficits. SKIN: No rashes. no petechiae. - Labs CBC & Chem 7: 09/25/24 07:01 09/25/24 07:01 Assessment and Plan Assessment: Septic shock secondary to infection/dehiscence of a left above-knee surgical wound and right above knee surgical wound. The patient has positive gram- negative septicemia with blood cultures being positive for Klebsiella pneumoniae and E. coli on 09/08/2024. Currently off pressors and the patient is hemodynamically stable and the patient remains on IV Zosyn. Bilateral surgical stump dehiscence for above-knee amputation, status post debridement with cultures being positive for strep group B and Serratia and E. coli on the left and Klebsiella pneumonia with strep group B and E. coli on the right. Surgical debridement has been performed on 09/10/2024 and wound VAC has been applied and pulled off by patient 09/21/2024. Hypotension secondary to sepsis, remains on pressors and broad-spectrum an tibiotics with IV Zosyn and the patient remains hemodynamically stable CHF with impaired LV function with an ejection fraction of 30 to 35%, repeat limited echocardiogram showed an ejection fraction of 20 to 25% from 09/14/2024 Altered mentation/metabolic encephalopathy/delirium. 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 COPD maintained on a combination of Advair and Incruse on outpatient basis Coronary artery disease with previous stent placement in the mid LAD in October 2023 History of right-sided pleural effusion with a previous thoracentesis on the right, exudate with negative cytology Severe peripheral vascular disease as revealed on the previous CTA of the aorta with runoff and the patient has bilateral above-knee amputations Chronic and ongoing tobacco smoking History of CVA Suspect relative adrenal insufficiency, currently on stress dose hydrocortisone Hypothyroidism currently on Synthroid Transaminitis: Improved Elevated troponins MARCY likely secondary to hypotension: Resolved History of hypertension History of hyperlipidemia Plan: The patient was seen and evaluated Stable and on room air Medications reviewed She continues on a bicarb drip Remains on Zosyn Plan is to return to [facility] or home with home care This patient was seen independently by the pulmonary nurse practitioner addressing pulmonary issues I have personally seen and examined the patient, performed the documentation and the assessment and plan as written. Number of minutes spent on the visit: 24 Dictation was produced using [employer] dictation software. Please excuse any grammatical, word or spelling errors.
[2024-09-26] MEDS: POTASSIUM CHLORIDE 20 MEQ in WATER FOR INJECTION 1 100ML.BAG IVPB SCH (11:08)
[2024-09-26 14:53] LABS: African American GFR (CKD) 28 (>60 ml/min/1.73 sqM); Anion Gap 8 mmol/L; Blood Urea Nitrogen 34 mg/dL (7-17); Calcium 7.2 mg/dL (8.4-10.2); Carbon Dioxide 21 mmol/L (22-30); Chloride 114 mmol/L (98-107); Glucose 94 mg/dL (74-99); Non-African American GFR(CKD) 25 (>60 ml/min/1.73 sqM); Sodium 143 mmol/L (137-145)
[2024-09-26 14:59] LABS: Magnesium 1.4 mg/dL (1.6-2.3); Potassium 4.3 mmol/L (3.5-5.1)
[2024-09-26] MEDS: MAGNESIUM SULFATE-D5W PMX 1 GM in DEXTROSE/WATER 1 100ML.BAG IVPB SCH (17:09)
--- NOTE | 2024-09-26 18:02 | P.PN ---
Subjective Progress Note Date: 09/25/24 69 years old female who was sent from [facility] for altered mental status. 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 Since 07/2024. Patient also states she vomited once earlier. Patient fully awake and oriented, can answer questions appropriately and follows command, she does not look in distress. On admission her blood pressure was on the low side 68/53 5 sh she need to be transferred to ICU for start pressors, currently her blood pressure is better 102/50. She is having fever 103 on admission. She denies chest pain or dyspnea no right upper quadrant abdominal pain. No reports of diarrhea. Urine looks dark in the Infante catheter. No dysuria for the patient. Labs reviewed she has unremarkable CBC, BMP and LFT. Urinalysis is highly suspicious for infection Urine culture is pending Abdominal ultrasound showing cholelithiasis with minimal cholecystic fluid with thickening of the adjacent gallbladder suspicious for acute cholecystitis, however clinically does not behave like inflamed gallbladder Femur x-ray showing right AKA stump with hazy ostomy margin suspicious for o steomyelitis by the left AKA showing sharp ostomy margins. Chest x-ray showed combination of COPD and chronic CHF. Patient currently treated with broad-spectrum antibiotics with cefepime and IV vancomycin. Patient also on Ringer lactate at 130 mL/h She is continued on aspirin and Brilinta. Objective - Vital Signs Vital signs: Vital Signs Temp 97.7 F 09/25/24 08:00 Pulse 76 09/25/24 11:32 Resp 16 09/25/24 11:32 BP 107/68 09/25/24 11:32 Pulse Ox 95 09/25/24 11:32 FiO2 1 09/10/24 00:00 Intake & Output 09/24/24 09/25/24 09/25/24 18:59 06:59 18:59 Intake Total 480 240 Output Total 375 200 275 Balance 105 -200 -35 Weight 52.5 kg Intake: Oral 480 240 Output: Urine 375 200 275 Other: Voiding Method Indwelling Catheter Indwelling Catheter Indwelling Catheter # Bowel Movements 1 1 1 - Exam GENERAL: The patient is alert, chronically ill looking HEENT: Pupils are round and equally reacting to light. EOMI. No scleral icterus. No conjunctival pallor. Normocephalic, atraumatic. No pharyngeal erythema. No thyromegaly. CARDIOVASCULAR: S1 and S2 present. No murmurs, rubs, or gallops. PULMONARY: Diminished breath sound at the bases bilaterally, no wheezing or crackles. ABDOMEN: Soft, nontender, nondistended, normoactive bowel sounds. No palpable organomegaly. MUSCULOSKELETAL: No joint swelling or deformity. EXTREMITIES: Bilateral AKA with bandages seen, wound VAC seen NEUROLOGICAL: Gross neurological examination did not reveal any focal deficits. SKIN: No rashes. - Labs CBC & Chem 7: 09/25/24 07:01 09/26/24 14:15 Labs: Abnormal Lab Results - Last 24 Hours (Table) 09/25/24 09/25/24 Range/Units 07:01 07:01 RBC 3.16 L (3.80-5.40) m/uL Hgb 10.0 L (11.4-16.0) gm/dL Hct 31.4 L (34.0-46.0) % RDW 20.9 H (11.5-15.5) % Neutrophils # 8.7 H (1.3-7.7) k/uL Potassium 3.3 L (3.5-5.1) mmol/L Chloride 117 H (98-107) mmol/L Carbon Dioxide 18 L (22-30) mmol/L BUN 31 H (7-17) mg/dL Creatinine 2.01 H (0.52-1.04) mg/dL Calcium 7.3 L (8.4-10.2) mg/dL AST 572 H (14-36) U/L ALT 284 H (4-34) U/L Alkaline Phosphatase 164 H (38-126) U/L Total Protein 4.4 L (6.3-8.2) g/dL Albumin 1.8 L (3.5-5.0) g/dL Assessment and Plan Assessment: Cellulitis and infections of bilateral AKA stumps, there is suspicion of osteomyelitis at the distal margins of the right stump per x-ray. Status post I&D by vascular surgery on 09/10 Acute urinary tract infection with suprapubic tenderness. Urine cultures pending Gallbladder disease with gallstones, but there is suspicion of acute cholecystitis Severe sepsis/septic shock, present on admission, improving Peripheral artery disease Acute transaminitis Monitor vital signs Monitor CBC Monitor CMP Continue telemetry monitoring Trend LFTs Follow-up on blood cultures Continue wound care Continue pain management Continue IV Zosyn Continue aspirin, Brilinta Continue Farxiga Continue Entresto ID following Vascular surgery following Psychiatry evaluated, patient has no capacity at this time to make decisions regarding treatment. Hospice evaluated, patient's son wants patient to be discharged to rehab facility
--- NOTE | 2024-09-26 18:09 | P.PN ---
Subjective Progress Note Date: 09/26/24 69 years old female who was sent from [facility] for altered mental status. 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 Since 07/2024. Patient also states she vomited once earlier. Patient fully awake and oriented, can answer questions appropriately and follows command, she does not look in distress. On admission her blood pressure was on the low side 68/53 5 sh she need to be transferred to ICU for start pressors, currently her blood pressure is better 102/50. She is having fever 103 on admission. She denies chest pain or dyspnea no right upper quadrant abdominal pain. No reports of diarrhea. Urine looks dark in the Infante catheter. No dysuria for the patient. Labs reviewed she has unremarkable CBC, BMP and LFT. Urinalysis is highly suspicious for infection Urine culture is pending Abdominal ultrasound showing cholelithiasis with minimal cholecystic fluid with thickening of the adjacent gallbladder suspicious for acute cholecystitis, however clinically does not behave like inflamed gallbladder Femur x-ray showing right AKA stump with hazy ostomy margin suspicious for o steomyelitis by the left AKA showing sharp ostomy margins. Chest x-ray showed combination of COPD and chronic CHF. Patient currently treated with broad-spectrum antibiotics with cefepime and IV vancomycin. Patient also on Ringer lactate at 130 mL/h She is continued on aspirin and Brilinta. 09/26/2023 Patient is seen and evaluated in follow-up on the selective care unit. She is awake and alert in no acute distress. Sitting up in bed. Denies any worsening shortness of breath, cough or congestion. Current O2 saturations in the 90s on room air. Blood work reveals sodium 143, potassium 4.3, BUNs/creatinine of 34/2.01; liver enzymes trending down on blood work yesterday She is continued on Symbicort and Atrovent. Heparin for DVT prophylaxis. D5W with 3 A of bicarb at 75 mL/h. Remains on Zosyn. Nephrology on board for acute renal injury; patient remains on IV bicarbonate infusion; Farxiga remains on hold; ibuprofen is discontinued; nephrology recommending holding Entresto if EGD continues to worsen Objective - Vital Signs Vital signs: Vital Signs Temp 97.4 F L 09/26/24 08:25 Pulse 67 09/26/24 08:25 Resp 16 09/26/24 08:25 BP 115/66 09/26/24 08:25 Pulse Ox 90 L 09/26/24 08:25 FiO2 1 09/10/24 00:00 Intake & Output 09/25/24 09/26/24 09/26/24 18:59 06:59 18:59 Intake Total 480 600 Output Total 450 Balance 30 600 Weight 52.5 kg 52.5 kg Intake: Intake, IV Titration 600 Amount Dextrose 5% in Water 1, 600 000 ml @ 75 mls/hr IV . [id number] AMANDA with Sodium Bicarb (1 Meq/ml) 150 ml Rx#:[id number] Oral 480 Output: Urine 450 Other: Voiding Method Indwelling Catheter Indwelling Catheter Indwelling Catheter # Bowel Movements 1 1 - Exam GENERAL: The patient is alert, chronically ill looking HEENT: Pupils are round and equally reacting to light. EOMI. No scleral icterus. No conjunctival pallor. Normocephalic, atraumatic. No pharyngeal erythema. No thyromegaly. CARDIOVASCULAR: S1 and S2 present. No murmurs, rubs, or gallops. PULMONARY: Diminished breath sound at the bases bilaterally, no wheezing or crackles. ABDOMEN: Soft, nontender, nondistended, normoactive bowel sounds. No palpable organomegaly. MUSCULOSKELETAL: No joint swelling or deformity. EXTREMITIES: Bilateral AKA with bandages seen, wound VAC seen NEUROLOGICAL: Gross neurological examination did not reveal any focal deficits. SKIN: No rashes. - Labs CBC & Chem 7: 09/25/24 07:01 09/26/24 14:15 Assessment and Plan Assessment: Cellulitis and infections of bilateral AKA stumps, there is suspicion of osteomyelitis at the distal margins of the right stump per x-ray. Status post I&D by vascular surgery on 09/10 Acute urinary tract infection with suprapubic tenderness. Urine cultures pending Gallbladder disease with gallstones, but there is suspicion of acute c holecystitis Severe sepsis/septic shock, present on admission, improving Peripheral artery disease Acute transaminitis Monitor vital signs Monitor CBC Monitor CMP Continue telemetry monitoring Trend LFTs Follow-up on blood cultures Continue wound care Continue pain management Continue IV Zosyn Continue aspirin, Brilinta Continue Farxiga Continue Entresto ID following Vascular surgery following Psychiatry evaluated, patient has no capacity at this time to make decisions regarding treatment. Hospice evaluated, patient's son wants patient to be discharged to rehab facility
[2024-09-26] MEDS: MELATONIN 3 MG TABLET PO PRN (20:11)
[2024-09-26] MEDS: HYDROcodone/APAP 7.5-325MG 1 EACH TAB PO PRN (20:11)
--- NOTE | 2024-09-26 22:45 | P.PN ---
Subjective Progress Note Date: 09/26/24 Principal diagnosis: Reason for follow-up is sepsis bacteremia Patient is a 69-year-old female with multiple comorbidity patient did have a significant PAD and did have a bilateral pqdgq-avd-dssu amputations with subsequent dehiscence of the wound patient has been sent from the local senior living to the hospital with fever, patient be diagnosed with sepsis admitted to the ICU did have a positive blood culture with Klebsiella. Patient is status post surgical debridement of bilateral AKA wound and application of wound VAC culture has been obtained On today's evaluation that is 09/26/2024, patient did not have any fever and denies any chills, patient is breathing comfortably on 2 L nasal oxygen, patient with no chest pain or cough patient did not have any abdominal pain nausea vomiting or any loose stools. Patient did have a creatinine 0.01 no CBC was obtained today Objective - Vital Signs Vital signs: Vital Signs Temp 97.2 F L 09/26/24 12:10 Pulse 65 09/26/24 12:10 Resp 16 09/26/24 12:10 BP 119/76 09/26/24 12:10 Pulse Ox 91 L 09/26/24 12:10 FiO2 1 09/10/24 00:00 Intake & Output 09/25/24 09/26/24 09/26/24 18:59 06:59 18:59 Intake Total 480 600 Output Total 450 Balance 30 600 Weight 52.5 kg 52.5 kg Intake: Intake, IV Titration 600 Amount Dextrose 5% in Water 1, 600 000 ml @ 75 mls/hr IV . [id number] AMANDA with Sodium Bicarb (1 Meq/ml) 150 ml Rx#:[id number] Oral 480 Output: Urine 450 Other: Voiding Method Indwelling Catheter Indwelling Catheter Indwelling Catheter # Bowel Movements 1 1 - Exam GENERAL DESCRIPTION: An elderly female lying in bed in no distress RESPIRATORY SYSTEM: Unlabored breathing , decreased breath sounds at bases HEART: S1 S2 regular rate and rhythm , ABDOMEN: Soft , no tenderness EXTREMITIES: Bilateral AKA stump wound with slough tissue no surrounding redness - Labs CBC & Chem 7: 09/25/24 07:01 09/26/24 14:15 Assessment and Plan (1) Bilateral lower leg cellulitis Current Visit: Yes Status: Acute Code(s): L03.116 - CELLULITIS OF LEFT LOWER LIMB; L03.115 - CELLULITIS OF RIGHT LOWER LIMB SNOMED Code(s): 811476833 (2) Sepsis Current Visit: Yes Status: Acute Code(s): A41.9 - SEPSIS, UNSPECIFIED ORGANISM SNOMED Code(s): 80179579 (3) Bacteremia Current Visit: Yes Status: Acute Code(s): R78.81 - BACTEREMIA SNOMED Code(s): 3889570 Plan: 1patient is in the hospital with sepsis in this patient with a fever tachycardia elevated white count source is likely bilateral AKA wound and concern for osteomyelitis to the right AKA stump site however the patient also have elevated liver enzyme and there was a history of vomiting underlying abdominal source monitor excluded. 2patient has been evaluated by vascular surgery and is status post debridement of the wound and deep culture completed on 09/10/2024 culture has been E. coli strep and Serratia marcescens 3patient does have a positive blood culture with Klebsiella, repeat blood cultures has been negative 4 patient did have placement of another PICC line plan is for a full course of Zosyn on discharge currently waiting for placement Dictation was produced using [employer] dictation software. please excuse any grammatical, word or spelling errors. Time with Patient: Less than 30
[2024-09-27 08:10] LABS: Anisocytosis Moderate; Basophils % (A) 0 %; Eosinophils # (A) 0.1 k/uL (0-0.7); Eosinophils % (A) 1 %; HCT 30.8 % (34.0-46.0); Hypochromasia Slight; Lymphocytes # (A) 0.7 k/uL (1.0-4.8); Lymphocytes % (A) 7 %; MCH 32.1 pg (25.0-35.0); MCHC 32.5 g/dL (31.0-37.0); MCV 98.7 fL (80.0-100.0); Macrocytosis Moderate; Monocytes # (A) 0.3 k/uL (0-1.0); Monocytes % (A) 3 %; Neutrophils # (A) 8.8 k/uL (1.3-7.7); Neutrophils % (A) 89 %; Platelet Count 105 k/uL (150-450); Poikilocytosis Moderate; RBC 3.12 m/uL (3.80-5.40); RDW 22.3 % (11.5-15.5); WBC 9.9 k/uL (3.8-10.6)
[2024-09-27 08:33] LABS: African American GFR (CKD) 28 (>60 ml/min/1.73 sqM); Anion Gap 6 mmol/L; Blood Urea Nitrogen 35 mg/dL (7-17); Calcium 7.2 mg/dL (8.4-10.2); Carbon Dioxide 25 mmol/L (22-30); Chloride 110 mmol/L (98-107); Glucose 103 mg/dL (74-99); Magnesium 1.8 mg/dL (1.6-2.3); Non-African American GFR(CKD) 24 (>60 ml/min/1.73 sqM); Potassium 3.9 mmol/L (3.5-5.1); Sodium 141 mmol/L (137-145)
--- NOTE | 2024-09-27 10:54 | P.PN ---
Subjective Patient is seen in follow-up for acute kidney injury. Renal function stable. Acidosis improved. Resting in bed. On bicarb drip. Nonoliguric. Oral intake fair. Vital signs are stable. General: No acute distress. HEENT: Head exam is unremarkable. LUNGS: No audible rhonchi or wheezes. HEART: Rate and Rhythm are regular. ABDOMEN: Nontender. EXTREMITITES: Left wound stump noted. Lower extremity amputations noted. Objective - Vital Signs Vital signs: Vital Signs Temp 98.2 F 09/27/24 04:00 Pulse 65 09/27/24 04:00 Resp 19 09/27/24 04:00 BP 105/52 09/27/24 04:00 Pulse Ox 95 09/27/24 04:00 FiO2 1 09/10/24 00:00 Intake & Output 09/26/24 09/27/24 09/27/24 18:59 06:59 18:59 Intake Total 1500 Output Total 100 Balance 1500 -100 Weight 52 kg Intake: Intake, IV Titration 1500 Amount Dextrose 5% in Water 1, 1200 000 ml @ 75 mls/hr IV . [id number] AMANDA with Sodium Bicarb (1 Meq/ml) 150 ml Rx#:[id number] Piperacillin-Tazobactam 3 100 .375 gm In Sodium Chloride 0.9% 100 ml @ 25 mls/hr IVPB Q12H AMANDA Rx# :[id number] Potassium Chloride 20 meq 200 In Water For Injection 1 100ml.bag @ 50 mls/hr IVPB Q2H AMANDA Rx#: [id number] Output: Urine 100 Other: Voiding Method Indwelling Catheter Indwelling Catheter - Labs CBC & Chem 7: 09/27/24 07:28 09/27/24 07:28 Labs: Abnormal Lab Results - Last 24 Hours (Table) 09/26/24 09/27/24 09/27/24 Range/Units 14:15 07:28 07:28 RBC 3.12 L (3.80-5.40) m/uL Hgb 10.0 L (11.4-16.0) gm/dL Hct 30.8 L (34.0-46.0) % RDW 22.3 H (11.5-15.5) % Plt Count 105 L (150-450) k/uL Neutrophils # 8.8 H (1.3-7.7) k/uL Lymphocytes # 0.7 L (1.0-4.8) k/uL Chloride 114 H 110 H (98-107) mmol/L Carbon Dioxide 21 L (22-30) mmol/L BUN 34 H 35 H (7-17) mg/dL Creatinine 2.01 H 2.05 H (0.52-1.04) mg/dL Glucose 103 H (74-99) mg/dL Calcium 7.2 L 7.2 L (8.4-10.2) mg/dL Magnesium 1.4 L (1.6-2.3) mg/dL Assessment and Plan Plan: Assessment: 1. Acute kidney injury secondary to ATN secondary to severe sepsis further worsen with the use of Farxiga and Entresto. Creatinine stable at 2.05 today. Baseline creatinine near 1. Abdominal ultrasound showed atrophic left kidney with no evidence of hydronephrosis. 2. Severe sepsis secondary to osteomyelitis of right AKA stump status post surgical debridement this admission. Blood cultures positive for E. coli and Klebsiella. On IV antibiotics. 3. Hypokalemia from poor intake. Replaced. 4. Hypernatremia from lack of oral water intake. Status post D5W. Improved. 5. Metabolic acidosis secondary to acute kidney injury. Improved with bicarb drip. 6. Coronary artery disease. 7. Chronic systolic CHF ejection fraction of 30 to 35% with mild mitral and tricuspid regurgitation. Plan: Hep-Lock IV fluids. Avoid nephrotoxins. Ibuprofen discontinued. Maintain Infante catheter. Strict I's and O's. Repeat labs in the morning. If GFR further worsens, will need to hold Entresto.
--- NOTE | 2024-09-27 11:09 | P.PN ---
Subjective Progress Note Date: 09/27/24 69-year-old female with PMH of coronary artery disease hypertension hyperlipidemia OH reflux in this patient who did have right bjgxx-jqv-kzlu amputation done at [facility] subsequently left kizcu-qzd-cqsj amputation at [facility]. In the ER x-ray of the right femur showed concerning signs of contiguous osteomyelitis. Initial blood cultures were positive for E. coli plus Klebsiella pneumonia and at that time patient was started on vancomycin and Rocephin while awaiting cultures to finalize. Chest x-ray done on admission showed potential CHF with mild pulmonary vascular c ongestion and trace right pleural effusion which is improved from prior. CBC: WBC 11.3, hemoglobin 9.8, hematocrit 30.7, platelets 270. CMP: Sodium 143, potassium 4.5, CO2 20, BUN 46, creatinine 1.3, glucose 167, total bilirubin 2.3, AST 981, ALT 438, alkaline phosphatase 740. Troponin 0.096. Lactic acid 1.8. Patient is on 2 L nasal cannula SpO2 100%. Patient is seen this morning in the intensive care unit. No significant overnight events. Patient complaining of pain in the bilateral lower extremities (AKA). Ultrasound team is in the room this morning performing abdominal ultrasound. Vital show heart rate 96, respiratory rate 20, blood pressure 102/50, O2 saturation 94% on 2 L nasal cannula. Progress note dated September 10, 2024: Patient is seen in the intensive care unit this morning. No significant overnight events. There was a concern about urine output yesterday, but since then the patient has put out 1.3 L in the last 24 hours. Patient is expected to go for debridement of the bilateral AKA sites today. CBC: WBC 18.2, hemoglobin 9.0, hematocrit 28.4, platelets 270. CMP: Sodium 140, potassium 3.5, chloride 112, BUN 30, creatinine 0.89, calcium 7.6, albumin 2.1, AST 138, ALT 119, alkaline phosphatase 436. Now saturating well on room air, but still requiring Levophed 3 mcg/min after failed attempts to wean yesterday with a dropping MAP. On day 2 of cefepime and vancomycin. LR running at 150 cc/h. Progress note dated September 11, 2024: Patient is seen in the intensive care unit this morning. No significant overnight events. Patient is recovering well after bilateral debridement of the AKA stumps postop day 2. Patient is having some confusion, only A&O x 2, is unable to state the year. Patient was having some hallucinations yesterday, stated seeing a cat in the hallway. Reports better pain control in bilateral AKA stumps after debridement yesterday. CBC: WBC 11.3, hemoglobin 7 .4, platelet count 54. CMP: Sodium 137, potassium 4.2, CO2 18, creatinine 0.8, AST 102, ALT 71, and alkaline phosphatase 49. Continues to saturate well on room air, still requiring levo 3 mcg/min, on day 3 of cefepime and vancomycin, and LR running at 150 cc/h. Left and right leg wound cultures have finalized with Klebsiella, strep agalactiae, E. coli, and Serratia with sensitivities back as well. Progress note dated September 12, 2024: Patient is seen in the intensive care unit this morning. No significant overnight events. CBC: WBC 6.9, hemoglobin 7.6, platelet count 133. CMP: Sodium 135, potassium 3.5, chloride 111 TSH 7.3, free T4 1.74. Levo running at 0.45 mcg/min, reduce LR to 100 cc/h from 150 due to water retention and swelling. Continues saturate well on room air. On day 4 of cefepime and vancomycin. The patient is seen today September 13, 2024 in follow-up in the intensive care unit. She is currently resting comfortably in bed. Awake and alert in no acute distress. She is maintaining O2 saturations in the 90s on room air. She has lactated Ringer's at 20 mL/h. Still requiring norepinephrine at 5.4 mcg/min. She did receive Lasix 20 mg IVP x 1 yesterday with -1.3 L of urine returned. She is on midodrine 10 mg 3 times daily. Left leg wound is positive for Serratia marcescens, gram-negative bacilli and strep agalactiae group B. 12.8. Hemoglobin 10.3. Platelets 183. Sodium 136. Potassium 4.2. Bicarb 17. BUN 17. Creatinine 0.89. Glucose 80. AST 84. ALT 852. Cortisol level was 10.6. She is initiated on on Solu-Cortef 50 mg IV every 6 hours today. She continues on Symbicort. Antibiotics in the form of cefepime and off the vancomycin. The patient is seen today September 21, 2024 in follow-up on the 3 S. floor. She is currently resting in bed. Awake and alert in no acute distress. She is maintaining good O2 saturations in the 90s on room air. She pulled out her PICC line today. She pulled off her wound vacs. She has refused every medication scheduled for her. She has not ate or drank anything today. She refused hospice consult. Glucose 120. Follow-up blood cultures revealed no growth. She was to be receiving Zosyn. The patient is seen today September 22, 2024 in follow-up on the selective care unit. She is currently resting in bed. Awake and alert in no acute distress. He is maintaining good O2 saturations up to 100% on room air. She is afebrile. Hemodynamically stable. She continues to refuse her morning medications. Refusing to eat. Psychiatry has been consulted. Follow-up blood cultures revealing no growth. White count 9.6. Hemoglobin 9.0. Platelets 142. Sodium 148. Potassium 3.1. Bicarb 18. BUN 24. Creatinine 1.47. Glucose 88. She is continued on D5W at 50 mL/h. Heparin for DVT prophylaxis. Remains on Zosyn. The patient is seen today September 23, 2023 in follow-up on the selective care unit. She is currently resting in bed. Awake and alert in no acute distress. A bit more cooperative today. Taking some of her medications. Still with minimal oral intake. She remains on Symbicort, ipratropium bromide. D5W at 50 mL/h. Heparin for DVT prophylaxis. Antibiotics in the form of Zosyn. Continues to maintain good O2 saturation up to 100% on room air. Afebrile. Hemodynamically stable. White count 8.2. Hemoglobin 9.6. Platelets 151. Sodium 144. Potassium 3.6. Bicarb 17. BUN 26. Creatinine 1.56. AST 709. ALT 260 The patient is seen today September 24, 2023 in follow-up on the selective care unit. She is awake and alert in no acute distress. Maintaining good O2 saturations in the upper 90s on room air. She is afebrile. Hemodynamically stable. Most recent hemoglobin was 9.6. Follow-up blood cultures revealed no growth. She remains on Symbicort and DVT prophylaxis. Antibiotics in the form of Zosyn. Continued on D5W at 50 mL/h The patient is seen today September 25, 2023 in follow-up on the selective care unit. She is currently resting in bed. Awake and alert in no acute distress. Continues to maintain good O2 saturations in the mid to upper 90s on room air. Afebrile. Hemodynamically stable. She did allow a midline IV catheter to be placed and has not pulled it out thus far. She is continued on Zosyn. She is now on D5W with 3 A of bicarb at 75 mL/h per nephrology. White count 10.0. Hemoglobin 10.0. Platelets 150. Sodium 143. Potassium 3.3. Bicarb 18. BUN 31. Creatinine 2.01. AST 572. ALT 284. Alk phos 164. Glucose 79. Continued on Symbicort. Heparin for DVT prophylaxis. The patient is seen today September 26, 2023 in follow-up on the selective care unit. She is awake and alert in no acute distress. Sitting up in bed. Denies any worsening shortness of breath, cough or congestion. Maintaining good O2 saturations in the 90s on room air. She is continued on Symbicort and Atrovent. Heparin for DVT prophylaxis. D5W with 3 A of bicarb at 75 mL/h. Remains on Zosyn. Today's labs are pending. The patient is seen today September 27, 2023 in follow-up on the selective care unit. She is awake. Sitting up in bed. Denies any shortness of breath, cough or congestion. Maintaining good O2 saturations in the 90s on room air. Today she is less cooperative with nursing staff. She is spitting out her medicati ons. Refusing updraft treatments. White count 9.9. Hemoglobin 10.0. Platelets 105. Sodium 141. Potassium 3.9. Bicarb 25. BUN 35. Creatinine 2.05. Glucose 103. She remains on Zosyn. Objective - Vital Signs Vital signs: Vital Signs Temp 98.6 F 09/27/24 08:35 Pulse 75 09/27/24 08:35 Resp 19 09/27/24 08:35 BP 106/52 09/27/24 08:35 Pulse Ox 100 09/27/24 08:35 FiO2 1 09/10/24 00:00 Intake & Output 09/26/24 09/27/24 09/27/24 18:59 06:59 18:59 Intake Total 1500 700 Output Total 100 Balance 1500 -100 700 Weight 52 kg Intake: Intake, IV Titration 1500 700 Amount Dextrose 5% in Water 1, 1200 600 000 ml @ 75 mls/hr IV . [id number] AMANDA with Sodium Bicarb (1 Meq/ml) 150 ml Rx#:[id number] Piperacillin-Tazobactam 3 100 100 .375 gm In Sodium Chloride 0.9% 100 ml @ 25 mls/hr IVPB Q12H AMANDA Rx# :[id number] Potassium Chloride 20 meq 200 In Water For Injection 1 100ml.bag @ 50 mls/hr IVPB Q2H AMANDA Rx#: [id number] Output: Urine 100 Other: Voiding Method Indwelling Catheter Indwelling Catheter Indwelling Catheter - Exam GENERAL: A 69-year-old female, alert, uncooperative, not in any acute distress. On room air. HEENT: Pupils are round and equally reacting to light. EOMI. No scleral icterus. No conjunctival pallor. Normocephalic, atraumatic. CARDIOVASCULAR: S1 and S2 present. No murmurs, rubs, or gallops. PULMONARY: Chest is clear to auscultation, no wheezing , no crackles. ABDOMEN: Soft, nondistended, normoactive bowel sounds. No palpable organomegaly. Infante catheter in place MUSCULOSKELETAL: No joint swelling or deformity. EXTREMITIES: Swelling/minimal edema of the upper extremities bilaterally. Bilateral AKA with superficial wounds that have bilateral dressings in place. NEUROLOGICAL: Gross neurological examination did not reveal any focal deficits. SKIN: No rashes. no petechiae. - Labs CBC & Chem 7: 09/27/24 07:28 09/27/24 07:28 Labs: Abnormal Lab Results - Last 24 Hours (Table) 09/26/24 09/27/24 09/27/24 Range/Units 14:15 07:28 07:28 RBC 3.12 L (3.80-5.40) m/uL Hgb 10.0 L (11.4-16.0) gm/dL Hct 30.8 L (34.0-46.0) % RDW 22.3 H (11.5-15.5) % Plt Count 105 L (150-450) k/uL Neutrophils # 8.8 H (1.3-7.7) k/uL Lymphocytes # 0.7 L (1.0-4.8) k/uL Chloride 114 H 110 H (98-107) mmol/L Carbon Dioxide 21 L (22-30) mmol/L BUN 34 H 35 H (7-17) mg/dL Creatinine 2.01 H 2.05 H (0.52-1.04) mg/dL Glucose 103 H (74-99) mg/dL Calcium 7.2 L 7.2 L (8.4-10.2) mg/dL Magnesium 1.4 L (1.6-2.3) mg/dL Assessment and Plan Assessment: Septic shock secondary to infection/dehiscence of a left above-knee surgical wound and right above knee surgical wound. The patient has positive gram- negative septicemia with blood cultures being positive for Klebsiella pneumoniae and E. coli on 09/08/2024. Currently off pressors and the patient is hemodynamically stable and the patient remains on IV Zosyn. Bilateral surgical stump dehiscence for above-knee amputation, status post debridement with cultures being positive for strep group B and Serratia and E. coli on the left and Klebsiella pneumonia with strep group B and E. coli on the right. Surgical debridement has been performed on 09/10/2024 and wound VAC has been applied and pulled off by patient 09/21/2024. Hypotension secondary to sepsis, remains on pressors and broad-spectrum antibiotics with IV Zosyn and the patient remains hemodynamically stable CHF with impaired LV function with an ejection fraction of 30 to 35%, repeat limited echocardiogram showed an ejection fraction of 20 to 25% from 09/14/2024 Altered mentation/metabolic encephalopathy/delirium. 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 COPD maintained on a combination of Advair and Incruse on outpatient basis Coronary artery disease with previous stent placement in the mid LAD in October 2023 History of right-sided pleural effusion with a previous thoracentesis on the right, exudate with negative cytology Severe peripheral vascular disease as revealed on the previous CTA of the aorta with runoff and the patient has bilateral above-knee amputations Chronic and ongoing tobacco smoking History of CVA Suspect relative adrenal insufficiency, currently on stress dose hydrocortisone Hypothyroidism currently on Synthroid Transaminitis: Improved Elevated troponins MARCY likely secondary to hypotension: Resolved History of hypertension History of hyperlipidemia Plan: The patient was seen and evaluated Labs and medications reviewed She is spitting out her medications at staff today Refusing updraft treatments Stable and on room air Remains on Zosyn Plan is to return to [facility] or home with home care This patient was seen independently by the pulmonary nurse practitioner addressing pulmonary issues I have personally seen and examined the patient, performed the documentation and the assessment and plan as written. Number of minutes spent on the visit: 23 Dictation was produced using [employer] dictation software. Please excuse any grammatical, word or spelling errors.
[2024-09-27] MEDS ORDERED: ALBUTEROL HFA INHALER INHALATION PRN (11:10)
--- NOTE | 2024-09-27 14:47 | P.PN ---
Subjective Progress Note Date: 09/27/24 69 years old female who was sent from [facility] for altered mental status. 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 Since 07/2024. Patient also states she vomited once earlier. Patient fully awake and oriented, can answer questions appropriately and follows command, she does not look in distress. On admission her blood pressure was on the low side 68/53 5 sh she need to be transferred to ICU for start pressors, currently her blood pressure is better 102/50. She is having fever 103 on admission. She denies chest pain or dyspnea no right upper quadrant abdominal pain. No reports of diarrhea. Urine looks dark in the Infante catheter. No dysuria for the patient. Labs reviewed she has unremarkable CBC, BMP and LFT. Urinalysis is highly suspicious for infection Urine culture is pending Abdominal ultrasound showing cholelithiasis with minimal cholecystic fluid with thickening of the adjacent gallbladder suspicious for acute cholecystitis, however clinically does not behave like inflamed gallbladder Femur x-ray showing right AKA stump with hazy ostomy margin suspicious for o steomyelitis by the left AKA showing sharp ostomy margins. Chest x-ray showed combination of COPD and chronic CHF. Patient currently treated with broad-spectrum antibiotics with cefepime and IV vancomycin. Patient also on Ringer lactate at 130 mL/h She is continued on aspirin and Brilinta. 09/26/2023 Patient is seen and evaluated in follow-up on the selective care unit. She is awake and alert in no acute distress. Sitting up in bed. Denies any worsening shortness of breath, cough or congestion. Current O2 saturations in the 90s on room air. Blood work reveals sodium 143, potassium 4.3, BUNs/creatinine of 34/2.01; liver enzymes trending down on blood work yesterday She is continued on Symbicort and Atrovent. Heparin for DVT prophylaxis. D5W with 3 A of bicarb at 75 mL/h. Remains on Zosyn. Nephrology on board for acute renal injury; patient remains on IV bicarbonate infusion; Farxiga remains on hold; ibuprofen is discontinued; nephrology recommending holding Entresto if EGD continues to worsen 09/27/2023 Patient is seen and evaluated in follow-up on the selective care unit. She is awake. Sitting up in bed. Denies any shortness of breath, cough or congestion. Maintaining good O2 saturations in the 90s on room air. Today she is less cooperative with nursing staff. She is spitting out her medications. Refusing updraft treatments. - White count 9.9. Hemoglobin 10.0. Platelets 105. Sodium 141. Potassium 3. 9. Bicarb 25. BUN 35. Creatinine 2.05. Glucose 103. She remains on Zosyn. Refusing updraft treatments -- Nephrology on board and recommending to Hep-Lock IV fluids, discontinue ibuprofen and maintain Infante at this time; continue to monitor strict NARENDRA's and avoid nephrotoxins Plan is to return to [facility] or home with home care -- Nephrology on board and recommending to Hep-Lock IV; nephrotoxins are recommended to be avoided; ibuprofen is discontinued Objective - Vital Signs Vital signs: Vital Signs Temp 98.2 F 09/27/24 04:00 Pulse 65 09/27/24 04:00 Resp 19 09/27/24 04:00 BP 105/52 09/27/24 04:00 Pulse Ox 95 09/27/24 04:00 FiO2 1 09/10/24 00:00 Intake & Output 09/26/24 09/27/24 09/27/24 18:59 06:59 18:59 Intake Total 1500 Output Total 100 Balance 1500 -100 Weight 52 kg Intake: Intake, IV Titration 1500 Amount Dextrose 5% in Water 1, 1200 000 ml @ 75 mls/hr IV . [id number] AMANDA with Sodium Bicarb (1 Meq/ml) 150 ml Rx#:[id number] Piperacillin-Tazobactam 3 100 .375 gm In Sodium Chloride 0.9% 100 ml @ 25 mls/hr IVPB Q12H AMANDA Rx# :[id number] Potassium Chloride 20 meq 200 In Water For Injection 1 100ml.bag @ 50 mls/hr IVPB Q2H AMANDA Rx#: [id number] Output: Urine 100 Other: Voiding Method Indwelling Catheter Indwelling Catheter - Exam GENERAL: The patient is alert, chronically ill looking HEENT: Pupils are round and equally reacting to light. EOMI. No scleral icterus. No conjunctival pallor. Normocephalic, atraumatic. No pharyngeal erythema. No thyromegaly. CARDIOVASCULAR: S1 and S2 present. No murmurs, rubs, or gallops. PULMONARY: Diminished breath sound at the bases bilaterally, no wheezing or crackles. ABDOMEN: Soft, nontender, nondistended, normoactive bowel sounds. No palpable organomegaly. MUSCULOSKELETAL: No joint swelling or deformity. EXTREMITIES: Bilateral AKA with bandages seen, wound VAC seen NEUROLOGICAL: Gross neurological examination did not reveal any focal deficits. SKIN: No rashes. - Labs CBC & Chem 7: 09/27/24 07:28 09/27/24 07:28 Labs: Abnormal Lab Results - Last 24 Hours (Table) 09/26/24 09/27/24 09/27/24 Range/Units 14:15 07:28 07:28 RBC 3.12 L (3.80-5.40) m/uL Hgb 10.0 L (11.4-16.0) gm/dL Hct 30.8 L (34.0-46.0) % RDW 22.3 H (11.5-15.5) % Plt Count 105 L (150-450) k/uL Neutrophils # 8.8 H (1.3-7.7) k/uL Lymphocytes # 0.7 L (1.0-4.8) k/uL Chloride 114 H 110 H (98-107) mmol/L Carbon Dioxide 21 L (22-30) mmol/L BUN 34 H 35 H (7-17) mg/dL Creatinine 2.01 H 2.05 H (0.52-1.04) mg/dL Glucose 103 H (74-99) mg/dL Calcium 7.2 L 7.2 L (8.4-10.2) mg/dL Magnesium 1.4 L (1.6-2.3) mg/dL Assessment and Plan Assessment: Cellulitis and infections of bilateral AKA stumps, there is suspicion of osteomyelitis at the distal margins of the right stump per x-ray. Status post I&D by vascular surgery on 09/10 Acute urinary tract infection with suprapubic tenderness. Urine cultures pending Gallbladder disease with gallstones, but there is suspicion of acute cholecystitis Severe sepsis/septic shock, present on admission, improving Peripheral artery disease Acute transaminitis Monitor vital signs Monitor CBC Monitor CMP Continue telemetry monitoring Trend LFTs Follow-up on blood cultures Continue wound care Continue pain management Continue IV Zosyn Continue aspirin, Brilinta Continue Farxiga Continue Entresto ID following Vascular surgery following Psychiatry evaluated, patient has no capacity at this time to make decisions regarding treatment. Hospice evaluated, patient's son wants patient to be discharged to rehab facility
--- NOTE | 2024-09-27 14:59 | P.PN ---
Subjective Progress Note Date: 09/27/24 Principal diagnosis: Reason for follow-up is sepsis bacteremia Patient is a 69-year-old female with multiple comorbidity patient did have a significant PAD and did have a bilateral [id number] amputations with subsequent dehiscence of the wound patient has been sent from the local alf to the hospital with fever, patient be diagnosed with sepsis admitted to the ICU did have a positive blood culture with Klebsiella. Patient is status post surgical debridement of bilateral AKA wound and application of wound VAC culture has been obtained On today's evaluation that is 09/27/2024, Patient is afebrile patient is currently on room air and breathing comfortably the patient slightly lethargic not a very good historian no vomiting diarrhea or any other changes reported by the nursing staff. Patient white count is 9.8, creatinine is 2.05 Objective - Vital Signs Vital signs: Vital Signs Temp 98.4 F 09/27/24 12:20 Pulse 72 09/27/24 12:20 Resp 18 09/27/24 12:20 BP 104/51 09/27/24 12:20 Pulse Ox 95 09/27/24 12:20 FiO2 1 09/10/24 00:00 Intake & Output 09/26/24 09/27/24 09/27/24 18:59 06:59 18:59 Intake Total 1500 700 Output Total 100 Balance 1500 -100 700 Weight 52 kg Intake: Intake, IV Titration 1500 700 Amount Dextrose 5% in Water 1, 1200 600 000 ml @ 75 mls/hr IV . [id number] AMANDA with Sodium Bicarb (1 Meq/ml) 150 ml Rx#:[id number] Piperacillin-Tazobactam 3 100 100 .375 gm In Sodium Chloride 0.9% 100 ml @ 25 mls/hr IVPB Q12H AMANDA Rx# :[id number] Potassium Chloride 20 meq 200 In Water For Injection 1 100ml.bag @ 50 mls/hr IVPB Q2H AMANDA Rx#: [id number] Output: Urine 100 Other: Voiding Method Indwelling Catheter Indwelling Catheter Indwelling Catheter - Exam GENERAL DESCRIPTION: An elderly female lying in bed in no distress RESPIRATORY SYSTEM: Unlabored breathing , decreased breath sounds at bases HEART: S1 S2 regular rate and rhythm , ABDOMEN: Soft , no tenderness EXTREMITIES: Bilateral AKA stump wound covered with a wound VAC - Labs CBC & Chem 7: 09/27/24 07:28 01/19/25 07:28 Labs: Abnormal Lab Results - Last 24 Hours (Table) 09/26/24 09/27/24 09/27/24 Range/Units 14:15 07:28 07:28 RBC 3.12 L (3.80-5.40) m/uL Hgb 10.0 L (11.4-16.0) gm/dL Hct 30.8 L (34.0-46.0) % RDW 22.3 H (11.5-15.5) % Plt Count 105 L (150-450) k/uL Neutrophils # 8.8 H (1.3-7.7) k/uL Lymphocytes # 0.7 L (1.0-4.8) k/uL Chloride 114 H 110 H (98-107) mmol/L Carbon Dioxide 21 L (22-30) mmol/L BUN 34 H 35 H (7-17) mg/dL Creatinine 2.01 H 2.05 H (0.52-1.04) mg/dL Glucose 103 H (74-99) mg/dL Calcium 7.2 L 7.2 L (8.4-10.2) mg/dL Magnesium 1.4 L (1.6-2.3) mg/dL Assessment and Plan (1) Bilateral lower leg cellulitis Current Visit: Yes Status: Acute Code(s): L03.116 - CELLULITIS OF LEFT LOWER LIMB; L03.115 - CELLULITIS OF RIGHT LOWER LIMB SNOMED Code(s): 957910247 (2) Sepsis Current Visit: Yes Status: Acute Code(s): A41.9 - SEPSIS, UNSPECIFIED ORGANISM SNOMED Code(s): 96783608 (3) Bacteremia Current Visit: Yes Status: Acute Code(s): R78.81 - BACTEREMIA SNOMED Code(s): 2623524 Plan: 1patient is in the hospital with sepsis in this patient with a fever tachycardia elevated white count source is likely bilateral AKA wound and concern for osteomyelitis to the right AKA stump site however the patient also have elevated liver enzyme and there was a history of vomiting underlying abdominal source monitor excluded. 2patient has been evaluated by vascular surgery and is status post debridement of the wound and deep culture completed on 09/10/2024 culture has been E. coli strep and Serratia marcescens 3patient does have a positive blood culture with Klebsiella, repeat blood cultures has been negative 4 patient is afebrile patient to continue with Zosyn plan is for 4-week course on discharge to finish a total of 6-week course of therapy Dictation was produced using [employer] dictation software. please excuse any grammatical, word or spelling errors. Time with Patient: Less than 30
[2024-09-27 20:37] LABS: Glucose,Whole Blood 82 mg/dL (70-110)
--- NOTE | 2024-09-28 12:29 | P.PN ---
Subjective Progress Note Date: 09/28/24 Principal diagnosis: Reason for follow-up is sepsis bacteremia Patient is a 69-year-old female with multiple comorbidity patient did have a significant PAD and did have a bilateral [id number]-lwg-vpby amputations with subsequent dehiscence of the wound patient has been sent from the local alf to the hospital with fever, patient be diagnosed with sepsis admitted to the ICU did have a positive blood culture with Klebsiella. Patient is status post surgical debridement of bilateral AKA wound and application of wound VAC culture has been obtained On today's evaluation that is 09/28/2023, patient has been afebrile, patient is breathing comfortably and is currently on room air, patient denies having any significant cough no chest pain, patient denies nausea vomiting or diarrhea and no abdominal pain patient wants to go home. No lab draw today Objective - Vital Signs Vital signs: Vital Signs Temp 98.0 F 09/28/24 08:00 Pulse 77 09/28/24 11:28 Resp 18 09/28/24 11:28 BP 111/63 09/28/24 11:28 Pulse Ox 94 L 09/28/24 11:28 FiO2 1 09/10/24 00:00 Intake & Output 09/27/24 09/28/24 09/28/24 18:59 06:59 18:59 Intake Total 800 100 Output Total 400 200 Balance 400 -100 Intake: IV 100 Piperacillin-Tazobactam 3 100 .375 gm In Sodium Chloride 0.9% 100 ml @ 25 mls/hr IVPB Q12H AMANDA Rx# :[id number] Intake, IV Titration 800 Amount Dextrose 5% in Water 1, 600 000 ml @ 75 mls/hr IV . [id number] AMANDA with Sodium Bicarb (1 Meq/ml) 150 ml Rx#:[id number] Piperacillin-Tazobactam 3 200 .375 gm In Sodium Chloride 0.9% 100 ml @ 25 mls/hr IVPB Q12H AMANDA Rx# :[id number] Output: Urine 400 200 Other: Voiding Method Indwelling Catheter Indwelling Catheter Indwelling Catheter # Bowel Movements 1 - Exam GENERAL DESCRIPTION: An elderly female lying in bed in no distress RESPIRATORY SYSTEM: Unlabored breathing , decreased breath sounds at bases HEART: S1 S2 regular rate and rhythm , ABDOMEN: Soft , no tenderness EXTREMITIES: Bilateral AKA stump wound covered with a wound VAC - Labs CBC & Chem 7: 09/27/24 07:28 09/27/24 07:28 Assessment and Plan (1) Bilateral lower leg cellulitis Current Visit: Yes Status: Acute Code(s): L03.116 - CELLULITIS OF LEFT LOWER LIMB; L03.115 - CELLULITIS OF RIGHT LOWER LIMB SNOMED Code(s): 701261474 (2) Sepsis Current Visit: Yes Status: Acute Code(s): A41.9 - SEPSIS, UNSPECIFIED ORGANISM SNOMED Code(s): 92145460 (3) Bacteremia Current Visit: Yes Status: Acute Code(s): R78.81 - BACTEREMIA SNOMED Code(s): 1122079 Plan: 1patient is in the hospital with sepsis in this patient with a fever tachycardia elevated white count source is likely bilateral AKA wound and concern for osteomyelitis to the right AKA stump site however the patient also have elevated liver enzyme and there was a history of vomiting underlying abdominal source monitor excluded. 2patient has been evaluated by vascular surgery and is status post debridement of the wound and deep culture completed on 09/10/2024 culture has been E. coli strep and Serratia marcescens 3patient does have a positive blood culture with Klebsiella, repeat blood cultures has been negative 4 patient is afebrile and last white count has been normal, patient is currently being treated with Zosyn which she will need for another 4-week course on discharge to finish a total of 6-week course of therapy and close outpatient follow-up Dictation was produced using [employer] dictation software. please excuse any grammatical, word or spelling errors. Time with Patient: Less than 30
[2024-09-28 14:44] VITALS: BMI 34.9
--- NOTE | 2024-09-28 15:22 | P.PN ---
Subjective Progress Note Date: 09/28/24 69-year-old female with PMH of coronary artery disease hypertension hyperlipidemia MA reflux in this patient who did have right mugni-flh-wwga amputation done at [facility] subsequently left btecx-hlh-zzvw amputation at [facility]. In the ER x-ray of the right femur showed concerning signs of contiguous osteomyelitis. Initial blood cultures were positive for E. coli plus Klebsiella pneumonia and at that time patient was started on vancomycin and Rocephin while awaiting cultures to finalize. Chest x-ray done on admission showed potential CHF with mild pulmonary vascular c ongestion and trace right pleural effusion which is improved from prior. CBC: WBC 11.3, hemoglobin 9.8, hematocrit 30.7, platelets 270. CMP: Sodium 143, potassium 4.5, CO2 20, BUN 46, creatinine 1.3, glucose 167, total bilirubin 2.3, AST 981, ALT 438, alkaline phosphatase 740. Troponin 0.096. Lactic acid 1.8. Patient is on 2 L nasal cannula SpO2 100%. Patient is seen this morning in the intensive care unit. No significant overnight events. Patient complaining of pain in the bilateral lower extremities (AKA). Ultrasound team is in the room this morning performing abdominal ultrasound. Vital show heart rate 96, respiratory rate 20, blood pressure 102/50, O2 saturation 94% on 2 L nasal cannula. Progress note dated September 10, 2024: Patient is seen in the intensive care unit this morning. No significant overnight events. There was a concern about urine output yesterday, but since then the patient has put out 1.3 L in the last 24 hours. Patient is expected to go for debridement of the bilateral AKA sites today. CBC: WBC 18.2, hemoglobin 9.0, hematocrit 28.4, platelets 270. CMP: Sodium 140, potassium 3.5, chloride 112, BUN 30, creatinine 0.89, calcium 7.6, albumin 2.1, AST 138, ALT 119, alkaline phosphatase 436. Now saturating well on room air, but still requiring Levophed 3 mcg/min after failed attempts to wean yesterday with a dropping MAP. On day 2 of cefepime and vancomycin. LR running at 150 cc/h. Progress note dated September 11, 2024: Patient is seen in the intensive care unit this morning. No significant overnight events. Patient is recovering well after bilateral debridement of the AKA stumps postop day 2. Patient is having some confusion, only A&O x 2, is unable to state the year. Patient was having some hallucinations yesterday, stated seeing a cat in the hallway. Reports better pain control in bilateral AKA stumps after debridement yesterday. CBC: WBC 11.3, hemoglobin 7 .4, platelet count 54. CMP: Sodium 137, potassium 4.2, CO2 18, creatinine 0.8, AST 102, ALT 71, and alkaline phosphatase 49. Continues to saturate well on room air, still requiring levo 3 mcg/min, on day 3 of cefepime and vancomycin, and LR running at 150 cc/h. Left and right leg wound cultures have finalized with Klebsiella, strep agalactiae, E. coli, and Serratia with sensitivities back as well. Progress note dated September 12, 2024: Patient is seen in the intensive care unit this morning. No significant overnight events. CBC: WBC 6.9, hemoglobin 7.6, platelet count 133. CMP: Sodium 135, potassium 3.5, chloride 111 TSH 7.3, free T4 1.74. Levo running at 0.45 mcg/min, reduce LR to 100 cc/h from 150 due to water retention and swelling. Continues saturate well on room air. On day 4 of cefepime and vancomycin. The patient is seen today September 13, 2024 in follow-up in the intensive care unit. She is currently resting comfortably in bed. Awake and alert in no acute distress. She is maintaining O2 saturations in the 90s on room air. She has lactated Ringer's at 20 mL/h. Still requiring norepinephrine at 5.4 mcg/min. She did receive Lasix 20 mg IVP x 1 yesterday with -1.3 L of urine returned. She is on midodrine 10 mg 3 times daily. Left leg wound is positive for Serratia marcescens, gram-negative bacilli and strep agalactiae group B. 12.8. Hemoglobin 10.3. Platelets 183. Sodium 136. Potassium 4.2. Bicarb 17. BUN 17. Creatinine 0.89. Glucose 80. AST 84. ALT 852. Cortisol level was 10.6. She is initiated on on Solu-Cortef 50 mg IV every 6 hours today. She continues on Symbicort. Antibiotics in the form of cefepime and off the vancomycin. The patient is seen today September 21, 2024 in follow-up on the 3 S. floor. She is currently resting in bed. Awake and alert in no acute distress. She is maintaining good O2 saturations in the 90s on room air. She pulled out her PICC line today. She pulled off her wound vacs. She has refused every medication scheduled for her. She has not ate or drank anything today. She refused hospice consult. Glucose 120. Follow-up blood cultures revealed no growth. She was to be receiving Zosyn. The patient is seen today September 22, 2024 in follow-up on the selective care unit. She is currently resting in bed. Awake and alert in no acute distress. He is maintaining good O2 saturations up to 100% on room air. She is afebrile. Hemodynamically stable. She continues to refuse her morning medications. Refusing to eat. Psychiatry has been consulted. Follow-up blood cultures revealing no growth. White count 9.6. Hemoglobin 9.0. Platelets 142. Sodium 148. Potassium 3.1. Bicarb 18. BUN 24. Creatinine 1.47. Glucose 88. She is continued on D5W at 50 mL/h. Heparin for DVT prophylaxis. Remains on Zosyn. The patient is seen today September 23, 2023 in follow-up on the selective care unit. She is currently resting in bed. Awake and alert in no acute distress. A bit more cooperative today. Taking some of her medications. Still with minimal oral intake. She remains on Symbicort, ipratropium bromide. D5W at 50 mL/h. Heparin for DVT prophylaxis. Antibiotics in the form of Zosyn. Continues to maintain good O2 saturation up to 100% on room air. Afebrile. Hemodynamically stable. White count 8.2. Hemoglobin 9.6. Platelets 151. Sodium 144. Potassium 3.6. Bicarb 17. BUN 26. Creatinine 1.56. AST 709. ALT 260 The patient is seen today September 24, 2023 in follow-up on the selective care unit. She is awake and alert in no acute distress. Maintaining good O2 saturations in the upper 90s on room air. She is afebrile. Hemodynamically stable. Most recent hemoglobin was 9.6. Follow-up blood cultures revealed no growth. She remains on Symbicort and DVT prophylaxis. Antibiotics in the form of Zosyn. Continued on D5W at 50 mL/h The patient is seen today September 25, 2023 in follow-up on the selective care unit. She is currently resting in bed. Awake and alert in no acute distress. Continues to maintain good O2 saturations in the mid to upper 90s on room air. Afebrile. Hemodynamically stable. She did allow a midline IV catheter to be placed and has not pulled it out thus far. She is continued on Zosyn. She is now on D5W with 3 A of bicarb at 75 mL/h per nephrology. White count 10.0. Hemoglobin 10.0. Platelets 150. Sodium 143. Potassium 3.3. Bicarb 18. BUN 31. Creatinine 2.01. AST 572. ALT 284. Alk phos 164. Glucose 79. Continued on Symbicort. Heparin for DVT prophylaxis. The patient is seen today September 26, 2023 in follow-up on the selective care unit. She is awake and alert in no acute distress. Sitting up in bed. Denies any worsening shortness of breath, cough or congestion. Maintaining good O2 saturations in the 90s on room air. She is continued on Symbicort and Atrovent. Heparin for DVT prophylaxis. D5W with 3 A of bicarb at 75 mL/h. Remains on Zosyn. Today's labs are pending. The patient is seen today September 27, 2023 in follow-up on the selective care unit. She is awake. Sitting up in bed. Denies any shortness of breath, cough or congestion. Maintaining good O2 saturations in the 90s on room air. Today she is less cooperative with nursing staff. She is spitting out her medicati ons. Refusing updraft treatments. White count 9.9. Hemoglobin 10.0. Platelets 105. Sodium 141. Potassium 3.9. Bicarb 25. BUN 35. Creatinine 2.05. Glucose 103. She remains on Zosyn. The patient is seen today September 28, 2023 in follow-up on the selective care unit. She is currently awake and alert in no acute distress. Maintaining good O2 saturations in the 90s on room air. She continues to refuse medications today. She pulled off her wound VAC dressing. Pulling at her IV. Refusing to eat. She remains afebrile. Hemodynamically stable. Follow-up blood cultures revealed no growth. No new labs today. She remains on Zosyn. Heparin for DVT prophylaxis. Objective - Vital Signs Vital signs: Vital Signs Temp 98.0 F 09/28/24 08:00 Pulse 77 09/28/24 14:00 Resp 18 09/28/24 14:00 BP 111/63 09/28/24 11:28 Pulse Ox 94 L 09/28/24 11:28 FiO2 1 09/10/24 00:00 Intake & Output 09/27/24 09/28/24 09/28/24 18:59 06:59 18:59 Intake Total 800 100 Output Total 400 200 1 Balance 400 -100 -1 Weight 52 kg Intake: IV 100 Piperacillin-Tazobactam 3 100 .375 gm In Sodium Chloride 0.9% 100 ml @ 25 mls/hr IVPB Q12H [facility] Rx# :[id number] Intake, IV Titration 800 Amount Dextrose 5% in Water 1, 600 000 ml @ 75 mls/hr IV . [id number] [facility] with Sodium Bicarb (1 Meq/ml) 150 ml Rx#:[id number] Piperacillin-Tazobactam 3 200 .375 gm In Sodium Chloride 0.9% 100 ml @ 25 mls/hr IVPB Q12H [facility] Rx# :[id number] Output: Urine 400 200 1 Other: Voiding Method Indwelling Catheter Indwelling Catheter Indwelling Catheter # Bowel Movements 1 1 - Exam GENERAL: A 69-year-old female, alert, uncooperative, not in any acute distress. On room air. HEENT: Pupils are round and equally reacting to light. EOMI. No scleral icterus. No conjunctival pallor. Normocephalic, atraumatic. CARDIOVASCULAR: S1 and S2 present. No murmurs, rubs, or gallops. PULMONARY: Chest is clear to auscultation, no wheezing , no crackles. ABDOMEN: Soft, nondistended, normoactive bowel sounds. No palpable organomegaly. Infante catheter in place MUSCULOSKELETAL: No joint swelling or deformity. EXTREMITIES: Swelling/minimal edema of the upper extremities bilaterally. Bilateral AKA with superficial wounds that have bilateral dressings in place. NEUROLOGICAL: Gross neurological examination did not reveal any focal deficits. SKIN: No rashes. no petechiae. - Labs CBC & Chem 7: 09/27/24 07:28 09/27/24 07:28 Assessment and Plan Assessment: Septic shock secondary to infection/dehiscence of a left above-knee surgical wound and right above knee surgical wound. The patient has positive gram- negative septicemia with blood cultures being positive for Klebsiella pneumoniae and E. coli on 09/08/2024. Currently off pressors and the patient is hemodynamically stable and the patient remains on IV Zosyn. Bilateral surgical stump dehiscence for above-knee amputation, status post debridement with cultures being positive for strep group B and Serratia and E. coli on the left and Klebsiella pneumonia with strep group B and E. coli on the right. Surgical debridement has been performed on 09/10/2024 and wound VAC has been applied and pulled off by patient 09/21/2024. Hypotension secondary to sepsis, remains on pressors and broad-spectrum an tibiotics with IV Zosyn and the patient remains hemodynamically stable CHF with impaired LV function with an ejection fraction of 30 to 35%, repeat limited echocardiogram showed an ejection fraction of 20 to 25% from 09/14/2024 Altered mentation/metabolic encephalopathy/delirium. 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 COPD maintained on a combination of Advair and Incruse on outpatient basis Coronary artery disease with previous stent placement in the mid LAD in October 2023 History of right-sided pleural effusion with a previous thoracentesis on the right, exudate with negative cytology Severe peripheral vascular disease as revealed on the previous CTA of the aorta with runoff and the patient has bilateral above-knee amputations Chronic and ongoing tobacco smoking History of CVA Suspect relative adrenal insufficiency, currently on stress dose hydrocortisone Hypothyroidism currently on Synthroid Transaminitis: Improved Elevated troponins MARCY likely secondary to hypotension: Resolved History of hypertension History of hyperlipidemia Failure to thrive Plan: The patient was seen and evaluated Medications reviewed Stable and on room air Remains on Zosyn Overall prognosis is poor Case management working on discharge planning I have personally seen and examined the patient, performed the documentation and the assessment and plan as written. Number of minutes spent on the visit: 10 Dictation was produced using [employer] dictation software. Please excuse any grammatical, word or spelling errors.
--- NOTE | 2024-09-28 15:34 | P.PN ---
Subjective Patient is seen in follow-up for acute kidney injury. Renal function stable as of yesterday. Acidosis improved. Resting in bed. Off IV fluids. Nonoliguric. Oral intake fair. Vital signs are stable. General: No acute distress. HEENT: Head exam is unremarkable. LUNGS: No audible rhonchi or wheezes. HEART: Rate and Rhythm are regular. ABDOMEN: Nontender. EXTREMITITES: Left wound stump noted. Lower extremity amputations noted. Objective - Vital Signs Vital signs: Vital Signs Temp 98.0 F 09/28/24 08:00 Pulse 77 09/28/24 14:00 Resp 18 09/28/24 14:00 BP 111/63 09/28/24 11:28 Pulse Ox 94 L 09/28/24 11:28 FiO2 1 09/10/24 00:00 Intake & Output 09/27/24 09/28/24 09/28/24 18:59 06:59 18:59 Intake Total 800 100 Output Total 400 200 1 Balance 400 -100 -1 Weight 52 kg Intake: IV 100 Piperacillin-Tazobactam 3 100 .375 gm In Sodium Chloride 0.9% 100 ml @ 25 mls/hr IVPB Q12H [facility] Rx# :[id number] Intake, IV Titration 800 Amount Dextrose 5% in Water 1, 600 000 ml @ 75 mls/hr IV . [id number] [facility] with Sodium Bicarb (1 Meq/ml) 150 ml Rx#:[id number] Piperacillin-Tazobactam 3 200 .375 gm In Sodium Chloride 0.9% 100 ml @ 25 mls/hr IVPB Q12H [facility] Rx# :[id number] Output: Urine 400 200 1 Other: Voiding Method Indwelling Catheter Indwelling Catheter Indwelling Catheter # Bowel Movements 1 1 - Labs CBC & Chem 7: 09/27/24 07:28 09/27/24 07:28 Assessment and Plan Plan: Assessment: 1. Acute kidney injury secondary to ATN secondary to severe sepsis further worsen with the use of Farxiga and Entresto. Creatinine stable at 2.05 yesterday. Baseline creatinine near 1. Abdominal ultrasound showed atrophic left kidney with no evidence of hydronephrosis. 2. Severe sepsis secondary to osteomyelitis of right AKA stump status post surgical debridement this admission. Blood cultures positive for E. coli and Klebsiella. On IV antibiotics. 3. Hypokalemia from poor intake. Replaced. 4. Hypernatremia from lack of oral water intake. Status post D5W. Improved. 5. Metabolic acidosis secondary to acute kidney injury. Improved with bicarb drip. 6. Coronary artery disease. 7. Chronic systolic CHF ejection fraction of 30 to 35% with mild mitral and tricuspid regurgitation. Plan: Remains off IV fluids. Avoid nephrotoxins. Ibuprofen discontinued. Repeat labs in the morning. If GFR further worsens, will need to hold Entresto.
--- NOTE | 2024-09-28 19:17 | PN ---
PROGRESS NOTE DATE OF SERVICE: 09/28/2024 SUBJECTIVE: This is a 69-year-old woman, who was admitted with change in mental status and cellulitis from the AKA stump. She is being closely monitored. The culture showed multiple organisms including strep agalactiae, Klebsiella, and as well as E coli. OBJECTIVE: VITAL SIGNS: Pulse is 77, blood pressure 108/66, respirations 18. CHEST: A few scattered rhonchi. ABDOMEN: Soft. LEGS: Bilateral amputations. NERVOUS SYSTEM: Nonfocal. LABORATORY DATA: Reviewed. ASSESSMENT: 1. Cellulitis from bilateral AKA stump suggesting polymicrobial tani. 2. History of coronary artery disease. 3. Hypertension. 4. Hyperlipidemia. 5. Degenerative joint disease. 6. Cerebrovascular accident, transient ischemic attack. 7. History of coronary artery disease stent. RECOMMENDATIONS: Recommend to continue current management, continue antibiotics. PT, OT evaluation, possible ECF rehab. Closely follow with Infectious Disease. Further recommendations to follow. Creatinine slightly worsened to 0.05. We will repeat LFTs also. MMODL / IJN: [id number] /
[2024-09-28] MEDS: HYDROcodone/APAP 10-325MG 1 EACH TAB PO PRN (22:09)
[2024-09-29] MEDS: HYDROmorphone 0.5 MG/0.5 ML SYRINGE IVP PRN (08:31)
[2024-09-29 11:34] LABS: Anisocytosis Moderate; Basophils % (A) 0 %; Eosinophils # (A) 0.1 k/uL (0-0.7); Eosinophils % (A) 1 %; HGB 9.4 gm/dL (11.4-16.0); Hypochromasia Moderate; Lymphocytes # (A) 0.9 k/uL (1.0-4.8); Lymphocytes % (A) 15 %; MCH 31.5 pg (25.0-35.0); MCHC 31.4 g/dL (31.0-37.0); MCV 100.2 fL (80.0-100.0); Macrocytosis Moderate; Mean Platelet Volume 9.4; Monocytes # (A) 0.2 k/uL (0-1.0); Monocytes % (A) 4 %; Neutrophils # (A) 4.5 k/uL (1.3-7.7); Neutrophils % (A) 79 %; Platelet Count 108 k/uL (150-450); Poikilocytosis Slight; RBC 2.99 m/uL (3.80-5.40); RDW 22.1 % (11.5-15.5); WBC 5.8 k/uL (3.8-10.6)
[2024-09-29 11:46] LABS: ALT 255 U/L (4-34); AST 241 U/L (14-36); African American GFR (CKD) 24 (>60 ml/min/1.73 sqM); Albumin 1.8 g/dL (3.5-5.0); Alkaline Phosphatase 175 U/L (38-126); Anion Gap 8 mmol/L; Blood Urea Nitrogen 36 mg/dL (7-17); Calcium 7.6 mg/dL (8.4-10.2); Carbon Dioxide 25 mmol/L (22-30); Chloride 110 mmol/L (98-107); Glucose 85 mg/dL (74-99); Magnesium 1.6 mg/dL (1.6-2.3); Non-African American GFR(CKD) 21 (>60 ml/min/1.73 sqM); Potassium 3.5 mmol/L (3.5-5.1); Sodium 143 mmol/L (137-145); Total Bilirubin 0.6 mg/dL (0.2-1.3); Total Protein 4.7 g/dL (6.3-8.2)
--- NOTE | 2024-09-29 15:23 | P.PN ---
Subjective Progress Note Date: 09/29/24 Principal diagnosis: Reason for follow-up is sepsis bacteremia Patient is a 69-year-old female with multiple comorbidity patient did have a significant PAD and did have a bilateral hepxe-vwi-hoke amputations with subsequent dehiscence of the wound patient has been sent from the local longterm to the hospital with fever, patient be diagnosed with sepsis admitted to the ICU did have a positive blood culture with Klebsiella. Patient is status post surgical debridement of bilateral AKA wound and application of wound VAC culture has been obtained On today's evaluation that is 09/29/2024, Patient is afebrile this morning patient is breathing comfortable 2 L nasal oxygen patient does not seem to be any distress currently sleepy no vomiting diarrhea change reported by the family at bedside. Patient white count is 5.8, creatinine is 2.32 Objective - Vital Signs Vital signs: Vital Signs Temp 98.1 F 09/29/24 08:38 Pulse 74 09/29/24 08:38 Resp 18 09/29/24 08:38 BP 132/73 09/29/24 08:38 Pulse Ox 97 09/29/24 08:38 FiO2 1 09/10/24 00:00 Intake & Output 09/28/24 09/29/24 09/29/24 18:59 06:59 18:59 Intake Total 200 Output Total 501 300 0 Balance -501 -100 0 Weight 52 kg Intake: IV 100 Piperacillin-Tazobactam 3 100 .375 gm In Sodium Chloride 0.9% 100 ml @ 25 mls/hr IVPB Q12H [facility] Rx# :[id number] Oral 100 Output: Drainage 0 0 Bilateral AKA wound vac 0 0 Urine 501 300 Other: Voiding Method Indwelling Catheter Indwelling Catheter Indwelling Catheter # Bowel Movements 1 1 - Labs CBC & Chem 7: 09/29/24 11:08 09/29/24 11:08 Labs: Abnormal Lab Results - Last 24 Hours (Table) 09/29/24 09/29/24 Range/Units 11:08 11:08 RBC 2.99 L (3.80-5.40) m/uL Hgb 9.4 L (11.4-16.0) gm/dL Hct 30.0 L (34.0-46.0) % MCV 100.2 H (80.0-100.0) fL RDW 22.1 H (11.5-15.5) % Plt Count 108 L (150-450) k/uL Lymphocytes # 0.9 L (1.0-4.8) k/uL Chloride 110 H (98-107) mmol/L BUN 36 H (7-17) mg/dL Creatinine 2.32 H (0.52-1.04) mg/dL Calcium 7.6 L (8.4-10.2) mg/dL AST 241 H (14-36) U/L ALT 255 H (4-34) U/L Alkaline Phosphatase 175 H (38-126) U/L Total Protein 4.7 L (6.3-8.2) g/dL Albumin 1.8 L (3.5-5.0) g/dL Assessment and Plan (1) Bilateral lower leg cellulitis Current Visit: Yes Status: Acute Code(s): L03.116 - CELLULITIS OF LEFT LOWER LIMB; L03.115 - CELLULITIS OF RIGHT LOWER LIMB SNOMED Code(s): 639635506 (2) Sepsis Current Visit: Yes Status: Acute Code(s): A41.9 - SEPSIS, UNSPECIFIED ORGANISM SNOMED Code(s): 44551180 (3) Bacteremia Current Visit: Yes Status: Acute Code(s): R78.81 - BACTEREMIA SNOMED Code(s): 6112161 Plan: 1patient is in the hospital with sepsis in this patient with a fever tachycardia elevated white count source is likely bilateral AKA wound and concern for osteomyelitis to the right AKA stump site however the patient also have elevated liver enzyme and there was a history of vomiting underlying abdominal source monitor excluded. 2patient has been evaluated by vascular surgery and is status post debridement of the wound and deep culture completed on 09/10/2024 culture has been E. coli strep and Serratia marcescens 3patient does have a positive blood culture with Klebsiella, repeat blood cultures has been negative 4 patient is afebrile and last white count has been normal, patient to continue with Zosyn awaiting final decision by the family by the nursing staff possible hospice, in that case antibiotics can be safely discontinued Son at the bedside question answered Dictation was produced using [employer] dictation software. please excuse any gr ammatical, word or spelling errors. Time with Patient: Less than 30
--- NOTE | 2024-09-29 15:53 | P.PN ---
Subjective Progress Note Date: 09/29/24 69-year-old female with PMH of coronary artery disease hypertension hyperlipidemia KS reflux in this patient who did have right [id number] amputation done at [facility] subsequently left [id number] amputation at [facility]. In the ER x-ray of the right femur showed concerning signs of contiguous osteomyelitis. Initial blood cultures were positive for E. coli plus Klebsiella pneumonia and at that time patient was started on vancomycin and Rocephin while awaiting cultures to finalize. Chest x-ray done on admission showed potential CHF with mild pulmonary vascular c ongestion and trace right pleural effusion which is improved from prior. CBC: WBC 11.3, hemoglobin 9.8, hematocrit 30.7, platelets 270. CMP: Sodium 143, potassium 4.5, CO2 20, BUN 46, creatinine 1.3, glucose 167, total bilirubin 2.3, AST 981, ALT 438, alkaline phosphatase 740. Troponin 0.096. Lactic acid 1.8. Patient is on 2 L nasal cannula SpO2 100%. Patient is seen this morning in the intensive care unit. No significant overnight events. Patient complaining of pain in the bilateral lower extremities (AKA). Ultrasound team is in the room this morning performing abdominal ultrasound. Vital show heart rate 96, respiratory rate 20, blood pressure 102/50, O2 saturation 94% on 2 L nasal cannula. Progress note dated September 10, 2024: Patient is seen in the intensive care unit this morning. No significant overnight events. There was a concern about urine output yesterday, but since then the patient has put out 1.3 L in the last 24 hours. Patient is expected to go for debridement of the bilateral AKA sites today. CBC: WBC 18.2, hemoglobin 9.0, hematocrit 28.4, platelets 270. CMP: Sodium 140, potassium 3.5, chloride 112, BUN 30, creatinine 0.89, calcium 7.6, albumin 2.1, AST 138, ALT 119, alkaline phosphatase 436. Now saturating well on room air, but still requiring Levophed 3 mcg/min after failed attempts to wean yesterday with a dropping MAP. On day 2 of cefepime and vancomycin. LR running at 150 cc/h. Progress note dated September 11, 2024: Patient is seen in the intensive care unit this morning. No significant overnight events. Patient is recovering well after bilateral debridement of the AKA stumps postop day 2. Patient is having some confusion, only A&O x 2, is unable to state the year. Patient was having some hallucinations yesterday, stated seeing a cat in the hallway. Reports better pain control in bilateral AKA stumps after debridement yesterday. CBC: WBC 11.3, hemoglobin 7 .4, platelet count 54. CMP: Sodium 137, potassium 4.2, CO2 18, creatinine 0.8, AST 102, ALT 71, and alkaline phosphatase 49. Continues to saturate well on room air, still requiring levo 3 mcg/min, on day 3 of cefepime and vancomycin, and LR running at 150 cc/h. Left and right leg wound cultures have finalized with Klebsiella, strep agalactiae, E. coli, and Serratia with sensitivities back as well. Progress note dated September 12, 2024: Patient is seen in the intensive care unit this morning. No significant overnight events. CBC: WBC 6.9, hemoglobin 7.6, platelet count 133. CMP: Sodium 135, potassium 3.5, chloride 111 TSH 7.3, free T4 1.74. Levo running at 0.45 mcg/min, reduce LR to 100 cc/h from 150 due to water retention and swelling. Continues saturate well on room air. On day 4 of cefepime and vancomycin. The patient is seen today September 13, 2024 in follow-up in the intensive care unit. She is currently resting comfortably in bed. Awake and alert in no acute distress. She is maintaining O2 saturations in the 90s on room air. She has lactated Ringer's at 20 mL/h. Still requiring norepinephrine at 5.4 mcg/min. She did receive Lasix 20 mg IVP x 1 yesterday with -1.3 L of urine returned. She is on midodrine 10 mg 3 times daily. Left leg wound is positive for Serratia marcescens, gram-negative bacilli and strep agalactiae group B. 12.8. Hemoglobin 10.3. Platelets 183. Sodium 136. Potassium 4.2. Bicarb 17. BUN 17. Creatinine 0.89. Glucose 80. AST 84. ALT 852. Cortisol level was 10.6. She is initiated on on Solu-Cortef 50 mg IV every 6 hours today. She continues on Symbicort. Antibiotics in the form of cefepime and off the vancomycin. The patient is seen today September 21, 2024 in follow-up on the 3 S. floor. She is currently resting in bed. Awake and alert in no acute distress. She is maintaining good O2 saturations in the 90s on room air. She pulled out her PICC line today. She pulled off her wound vacs. She has refused every medication scheduled for her. She has not ate or drank anything today. She refused hospice consult. Glucose 120. Follow-up blood cultures revealed no growth. She was to be receiving Zosyn. The patient is seen today September 22, 2024 in follow-up on the selective care unit. She is currently resting in bed. Awake and alert in no acute distress. He is maintaining good O2 saturations up to 100% on room air. She is afebrile. Hemodynamically stable. She continues to refuse her morning medications. Refusing to eat. Psychiatry has been consulted. Follow-up blood cultures revealing no growth. White count 9.6. Hemoglobin 9.0. Platelets 142. Sodium 148. Potassium 3.1. Bicarb 18. BUN 24. Creatinine 1.47. Glucose 88. She is continued on D5W at 50 mL/h. Heparin for DVT prophylaxis. Remains on Zosyn. The patient is seen today September 23, 2023 in follow-up on the selective care unit. She is currently resting in bed. Awake and alert in no acute distress. A bit more cooperative today. Taking some of her medications. Still with minimal oral intake. She remains on Symbicort, ipratropium bromide. D5W at 50 mL/h. Heparin for DVT prophylaxis. Antibiotics in the form of Zosyn. Continues to maintain good O2 saturation up to 100% on room air. Afebrile. Hemodynamically stable. White count 8.2. Hemoglobin 9.6. Platelets 151. Sodium 144. Potassium 3.6. Bicarb 17. BUN 26. Creatinine 1.56. AST 709. ALT 260 The patient is seen today September 24, 2023 in follow-up on the selective care unit. She is awake and alert in no acute distress. Maintaining good O2 saturations in the upper 90s on room air. She is afebrile. Hemodynamically stable. Most recent hemoglobin was 9.6. Follow-up blood cultures revealed no growth. She remains on Symbicort and DVT prophylaxis. Antibiotics in the form of Zosyn. Continued on D5W at 50 mL/h The patient is seen today September 25, 2023 in follow-up on the selective care unit. She is currently resting in bed. Awake and alert in no acute distress. Continues to maintain good O2 saturations in the mid to upper 90s on room air. Afebrile. Hemodynamically stable. She did allow a midline IV catheter to be placed and has not pulled it out thus far. She is continued on Zosyn. She is now on D5W with 3 A of bicarb at 75 mL/h per nephrology. White count 10.0. Hemoglobin 10.0. Platelets 150. Sodium 143. Potassium 3.3. Bicarb 18. BUN 31. Creatinine 2.01. AST 572. ALT 284. Alk phos 164. Glucose 79. Continued on Symbicort. Heparin for DVT prophylaxis. The patient is seen today September 26, 2023 in follow-up on the selective care unit. She is awake and alert in no acute distress. Sitting up in bed. Denies any worsening shortness of breath, cough or congestion. Maintaining good O2 saturations in the 90s on room air. She is continued on Symbicort and Atrovent. Heparin for DVT prophylaxis. D5W with 3 A of bicarb at 75 mL/h. Remains on Zosyn. Today's labs are pending. The patient is seen today September 27, 2023 in follow-up on the selective care unit. She is awake. Sitting up in bed. Denies any shortness of breath, cough or congestion. Maintaining good O2 saturations in the 90s on room air. Today she is less cooperative with nursing staff. She is spitting out her medicati ons. Refusing updraft treatments. White count 9.9. Hemoglobin 10.0. Platelets 105. Sodium 141. Potassium 3.9. Bicarb 25. BUN 35. Creatinine 2.05. Glucose 103. She remains on Zosyn. The patient is seen today September 28, 2023 in follow-up on the selective care unit. She is currently awake and alert in no acute distress. Maintaining good O2 saturations in the 90s on room air. She continues to refuse medications today. She pulled off her wound VAC dressing. Pulling at her IV. Refusing to eat. She remains afebrile. Hemodynamically stable. Follow-up blood cultures revealed no growth. No new labs today. She remains on Zosyn. Heparin for DVT prophylaxis. The patient is seen today September 29, 2023 in follow-up on the selective care unit. She is currently resting in bed. Awake in no acute distress. Quite weak, frail and debilitated. She has been having failure to thrive. Maintaining O2 saturations in the 90s on room air. She has been afebrile. Hemodynamically stable. White count 5.8. Hemoglobin 9.4. Platelets 108. Sodium 143. Potassium 3.5. Bicarb 25. BUN 36. Creatinine 2.32. Glucose 85. AST 241. ALT 255. Albumin 1.8. She remains on Zosyn. Objective - Vital Signs Vital signs: Vital Signs Temp 98.0 F 09/29/24 15:28 Pulse 73 09/29/24 15:28 Resp 18 09/29/24 15:28 BP 120/65 09/29/24 15:28 Pulse Ox 99 09/29/24 15:28 FiO2 1 09/10/24 00:00 Intake & Output 09/28/24 09/29/24 09/29/24 18:59 06:59 18:59 Intake Total 200 Output Total 501 300 0 Balance -501 -100 0 Weight 52 kg Intake: IV 100 Piperacillin-Tazobactam 3 100 .375 gm In Sodium Chloride 0.9% 100 ml @ 25 mls/hr IVPB Q12H [facility] Rx# :[id number] Oral 100 Output: Drainage 0 0 Bilateral AKA wound vac 0 0 Urine 501 300 Other: Voiding Method Indwelling Catheter Indwelling Catheter Indwelling Catheter # Bowel Movements 1 1 - Exam GENERAL: A 69-year-old female, alert, frail, cachectic, debilitated, not in any acute distress. On room air. HEENT: Pupils are round and equally reacting to light. EOMI. No scleral icterus. No conjunctival pallor. Normocephalic, atraumatic. CARDIOVASCULAR: S1 and S2 present. No murmurs, rubs, or gallops. PULMONARY: Chest is clear to auscultation, no wheezing , no crackles. ABDOMEN: Soft, nondistended, normoactive bowel sounds. No palpable organomegaly. Infante catheter in place MUSCULOSKELETAL: No joint swelling or deformity. EXTREMITIES: Swelling/minimal edema of the upper extremities bilaterally. Bilateral AKA with superficial wounds that have bilateral dressings in place. NEUROLOGICAL: Gross neurological examination did not reveal any focal deficits. SKIN: No rashes. no petechiae. - Labs CBC & Chem 7: 09/29/24 11:08 09/29/24 11:08 Labs: Abnormal Lab Results - Last 24 Hours (Table) 09/29/24 09/29/24 Range/Units 11:08 11:08 RBC 2.99 L (3.80-5.40) m/uL Hgb 9.4 L (11.4-16.0) gm/dL Hct 30.0 L (34.0-46.0) % MCV 100.2 H (80.0-100.0) fL RDW 22.1 H (11.5-15.5) % Plt Count 108 L (150-450) k/uL Lymphocytes # 0.9 L (1.0-4.8) k/uL Chloride 110 H (98-107) mmol/L BUN 36 H (7-17) mg/dL Creatinine 2.32 H (0.52-1.04) mg/dL Calcium 7.6 L (8.4-10.2) mg/dL AST 241 H (14-36) U/L ALT 255 H (4-34) U/L Alkaline Phosphatase 175 H (38-126) U/L Total Protein 4.7 L (6.3-8.2) g/dL Albumin 1.8 L (3.5-5.0) g/dL Assessment and Plan Assessment: Septic shock secondary to infection/dehiscence of a left above-knee surgical wound and right above knee surgical wound. The patient has positive gram- negative septicemia with blood cultures being positive for Klebsiella pneumoniae and E. coli on 09/08/2024. Currently off pressors and the patient is hemodynamically stable and the patient remains on IV Zosyn. Bilateral surgical stump dehiscence for above-knee amputation, status post debridement with cultures being positive for strep group B and Serratia and E. coli on the left and Klebsiella pneumonia with strep group B and E. coli on the right. Surgical debridement has been performed on 09/10/2024 and wound VAC has been applied and pulled off by patient 09/21/2024. Hypotension secondary to sepsis, remains on pressors and broad-spectrum antibiotics with IV Zosyn and the patient remains hemodynamically stable CHF with impaired LV function with an ejection fraction of 30 to 35%, repeat limited echocardiogram showed an ejection fraction of 20 to 25% from 09/14/2024 Altered mentation/metabolic encephalopathy/delirium. 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 COPD maintained on a combination of Advair and Incruse on outpatient basis Coronary artery disease with previous stent placement in the mid LAD in October 2023 History of right-sided pleural effusion with a previous thoracentesis on the right, exudate with negative cytology Severe peripheral vascular disease as revealed on the previous CTA of the aorta with runoff and the patient has bilateral above-knee amputations Chronic and ongoing tobacco smoking History of CVA Suspect relative adrenal insufficiency, currently on stress dose hydrocortisone Hypothyroidism currently on Synthroid Transaminitis: Improved Elevated troponins MARCY likely secondary to hypotension: Resolved History of hypertension History of hyperlipidemia Failure to thrive Plan: The patient was seen and evaluated Medications and labs reviewed Stable and on room air Remains on Zosyn Overall prognosis is poor Plan is for home with hospice at discharge I have personally seen and examined the patient, performed the documentation and the assessment and plan as written. Number of minutes spent on the visit: 10 Dictation was produced using invi dictation software. Please excuse any grammatical, word or spelling errors.
--- NOTE | 2024-09-29 21:36 | P.PN ---
Subjective Patient is seen for follow-up for acute kidney injury. She is not communicating much. 24-hour urine output at about 800 mL. Patient has an indwelling Infante catheter. Serum creatinine 2.3 today. Objective - Vital Signs Vital signs: Vital Signs Temp 98.3 F 09/29/24 19:58 Pulse 71 09/29/24 19:58 Resp 18 09/29/24 19:58 BP 113/55 09/29/24 19:58 Pulse Ox 100 09/29/24 19:58 FiO2 1 09/10/24 00:00 Intake & Output 09/29/24 09/29/24 09/30/24 06:59 18:59 06:59 Intake Total 200 Output Total 300 240 Balance -100 -240 Intake: IV 100 Piperacillin-Tazobactam 3 100 .375 gm In Sodium Chloride 0.9% 100 ml @ 25 mls/hr IVPB Q12H [facility] Rx# :[id number] Oral 100 Output: Drainage 0 0 Bilateral AKA wound vac 0 0 Urine 300 240 Other: Voiding Method Indwelling Catheter Indwelling Catheter # Bowel Movements 1 - Exam Patient is sleeping but arousable. Examination of the heart S1 and S2 Examination of the lungs bilateral breath sounds are heard Abdomen is soft nontender Examination of lower extremity shows bilateral AKA with stump wounds Patient does not communicate much - Labs CBC & Chem 7: 09/29/24 11:08 09/29/24 11:08 Labs: Abnormal Lab Results - Last 24 Hours (Table) 09/29/24 09/29/24 Range/Units 11:08 11:08 RBC 2.99 L (3.80-5.40) m/uL Hgb 9.4 L (11.4-16.0) gm/dL Hct 30.0 L (34.0-46.0) % MCV 100.2 H (80.0-100.0) fL RDW 22.1 H (11.5-15.5) % Plt Count 108 L (150-450) k/uL Lymphocytes # 0.9 L (1.0-4.8) k/uL Chloride 110 H (98-107) mmol/L BUN 36 H (7-17) mg/dL Creatinine 2.32 H (0.52-1.04) mg/dL Calcium 7.6 L (8.4-10.2) mg/dL AST 241 H (14-36) U/L ALT 255 H (4-34) U/L Alkaline Phosphatase 175 H (38-126) U/L Total Protein 4.7 L (6.3-8.2) g/dL Albumin 1.8 L (3.5-5.0) g/dL Assessment and Plan Assessment: 1. Acute kidney injury secondary to ATN secondary to severe sepsis further worsen with the use of Farxiga and Entresto. Creatinine 2.3 today. Baseline creatinine near 1. Abdominal ultrasound showed atrophic left kidney with no evidence of hydronephrosis. 2. Severe sepsis secondary to osteomyelitis of right AKA stump status post surgical debridement this admission. Blood cultures positive for E. coli and Klebsiella. On IV antibiotics. 3. Hypokalemia from poor intake. Replaced. 4. Hypernatremia from lack of oral water intake. Status post D5W. Improved. 5. Metabolic acidosis secondary to acute kidney injury. Improved with bicarb drip. 6. Coronary artery disease. 7. Chronic systolic CHF ejection fraction of 30 to 35% with mild mitral and tricuspid regurgitation. Plan: Continue off of diuretics. Consider adding IV fluids based on labs and volume status tomorrow.
--- NOTE | 2024-09-30 05:42 | P.PN ---
Subjective Progress Note Date: 09/29/24 69 years old female who was sent from [facility] for altered mental status. 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 Since 07/2024. Patient also states she vomited once earlier. Patient fully awake and oriented, can answer questions appropriately and follows command, she does not look in distress. On admission her blood pressure was on the low side 68/53 5 sh she need to be transferred to ICU for start pressors, currently her blood pressure is better 102/50. She is having fever 103 on admission. She denies chest pain or dyspnea no right upper quadrant abdominal pain. No reports of diarrhea. Urine looks dark in the Infante catheter. No dysuria for the patient. Labs reviewed she has unremarkable CBC, BMP and LFT. Urinalysis is highly suspicious for infection Urine culture is pending Abdominal ultrasound showing cholelithiasis with minimal cholecystic fluid with thickening of the adjacent gallbladder suspicious for acute cholecystitis, however clinically does not behave like inflamed gallbladder Femur x-ray showing right AKA stump with hazy ostomy margin suspicious for osteomyelitis by the left AKA showing sharp ostomy margins. Chest x-ray showed combination of COPD and chronic CHF. Patient currently treated with broad-spectrum antibiotics with cefepime and IV vancomycin. Patient also on Ringer lactate at 130 mL/h She is continued on aspirin and Brilinta. 09/26/2023 Patient is seen and evaluated in follow-up on the selective care unit. She is awake and alert in no acute distress. Sitting up in bed. Denies any worsening shortness of breath, cough or congestion. Current O2 saturations in the 90s on room air. Blood work reveals sodium 143, potassium 4.3, BUNs/creatinine of 34/2.01; liver enzymes trending down on blood work yesterday She is continued on Symbicort and Atrovent. Heparin for DVT prophylaxis. D5W with 3 A of bicarb at 75 mL/h. Remains on Zosyn. Nephrology on board for acute renal injury; patient remains on IV bicarbonate infusion; Farxiga remains on hold; ibuprofen is discontinued; nephrology recommending holding Entresto if EGD continues to worsen 09/27/2023 Patient is seen and evaluated in follow-up on the selective care unit. She is awake. Sitting up in bed. Denies any shortness of breath, cough or congestion. Maintaining good O2 saturations in the 90s on room air. Today she is less cooperative with nursing staff. She is spitting out her medications. Refusing updraft treatments. - White count 9.9. Hemoglobin 10.0. Platelets 105. Sodium 141. Potassium 3.9. Bicarb 25. BUN 35. Creatinine 2.05. Glucose 103. She remains on Zosyn. Refusing updraft treatments -- Nephrology on board and recommending to Hep-Lock IV fluids, discontinue ibuprofen and maintain Infante at this time; continue to monitor strict NARENDRA's and avoid nephrotoxins Plan is to return to [facility] or home with home care -- Nephrology on board and recommending to Hep-Lock IV; nephrotoxins are recommended to be avoided; ibuprofen is discontinued 09/29/2024 Patient is seen in follow-up today and somnolent was just given Dilaudid earlier. Lengthy discussion was had with family regarding overall prognosis with continued ongoing comorbidities and ongoing infection with difficulty in healing and now worsening kidney functions, plan is to go home with hospice. [facility] consulted with case management following. Continue with pain management although recommend decreasing the dose of Dilaudid as patient is extremely lethargic and difficult to arouse after receiving. Review of systems: Unable to obtain as patient is lethargic and sleeping PHYSICAL EXAMINATION: GENERAL: The patient is alert and oriented x0, asleep, lethargic, well developed, elderly appearing, ill-appearing HEENT: Pupils are round and equally reacting to light. EOMI. no scleral icterus. No conjunctival pallor. Normocephalic, atraumatic. No pharyngeal erythema. No thyromegaly. CARDIOVASCULAR: S1 and S2 muffled PULMONARY: diminished breath sounds bilaterally with no wheezing or rhonchi noted. ABDOMEN: soft. Nontender on exam. obese. non-distended, normoactive bowel sounds. No palpable organomegaly. MUSCULOSKELETAL: No joint swelling or deformity. EXTREMITIES: No cyanosis, clubbing, or pedal edema. Bilateral AKA noted NEUROLOGICAL: Gross neurological examination did not reveal any focal deficits. Diffuse weakness SKIN: No rashes. Assessment: Cellulitis and infections of bilateral AKA stumps, there is suspicion of osteomyelitis at the distal margins of the right stump per x-ray. Status post I&D by vascular surgery on 1/2 Possible acute urinary tract infection with suprapubic tenderness. Ruled out. Urine cultures negative Gallbladder disease with gallstones, but there is suspicion of acute cholecystitis Severe sepsis/septic shock, present on admission, improving secondary to lower extremity cellulitis Peripheral artery disease Acute transaminitis, trending down Obesity with a BMI 35.0 GI prophylaxis DVT prophylaxis No code Plan: Patient continued on antibiotics with infectious disease following and continue local wound care. Patient had been reporting significant pain due to the wound VAC and will be removed per patient request if needed Lengthy discussion was had with family regarding overall prognosis and treatment plan moving forward and given significant comorbidities, multiple hospitalizations, recent assisted admissions, patient family would like to go home with hospice. Case management following and [facility] is recommended by family. Family will need to arrange for care in the home and will be coming to stay with mother. Overall prognosis is extremely poor and guarded at this time. The impression and plan of care has been dictated by Marquita Gavin, nurse practitioner as directed. Dr. Cyrus MD I have performed a history and examination and MDM of this patient, discussed the same with the dictator, and agree with the dictator's assessment and plan as written ,documented as a scribe. Based on total visit time, I have performed more than 50% of the visit. Any additional findings or plans will be noted. Objective - Vital Signs Vital signs: Vital Signs Temp 98.0 F 09/29/24 15:28 Pulse 73 09/29/24 15:28 Resp 18 09/29/24 15:28 BP 120/65 09/29/24 15:28 Pulse Ox 99 09/29/24 15:28 FiO2 1 09/10/24 00:00 Intake & Output 09/28/24 09/29/24 09/29/24 18:59 06:59 18:59 Intake Total 200 Output Total 501 300 0 Balance -501 -100 0 Weight 52 kg Intake: IV 100 Piperacillin-Tazobactam 3 100 .375 gm In Sodium Chloride 0.9% 100 ml @ 25 mls/hr IVPB Q12H [facility] Rx# :[id number] Oral 100 Output: Drainage 0 0 Bilateral AKA wound vac 0 0 Urine 501 300 Other: Voiding Method Indwelling Catheter Indwelling Catheter Indwelling Catheter # Bowel Movements 1 1 - Labs CBC & Chem 7: 09/29/24 11:08 09/29/24 11:08 Labs: Abnormal Lab Results - Last 24 Hours (Table) 09/29/24 09/29/24 Range/Units 11:08 11:08 RBC 2.99 L (3.80-5.40) m/uL Hgb 9.4 L (11.4-16.0) gm/dL Hct 30.0 L (34.0-46.0) % MCV 100.2 H (80.0-100.0) fL RDW 22.1 H (11.5-15.5) % Plt Count 108 L (150-450) k/uL Lymphocytes # 0.9 L (1.0-4.8) k/uL Chloride 110 H (98-107) mmol/L BUN 36 H (7-17) mg/dL Creatinine 2.32 H (0.52-1.04) mg/dL Calcium 7.6 L (8.4-10.2) mg/dL AST 241 H (14-36) U/L ALT 255 H (4-34) U/L Alkaline Phosphatase 175 H (38-126) U/L Total Protein 4.7 L (6.3-8.2) g/dL Albumin 1.8 L (3.5-5.0) g/dL
[2024-09-30] MEDS: HYDROmorphone 0.5 MG/0.5 ML SYRINGE IVP PRN ×2 (11:24→23:50)
--- NOTE | 2024-09-30 12:04 | P.PN ---
Subjective Progress Note Date: 09/30/24 Principal diagnosis: Reason for follow-up is sepsis bacteremia Patient is a 69-year-old female with multiple comorbidity patient did have a significant PAD and did have a bilateral [id number] amputations with subsequent dehiscence of the wound patient has been [facility] with fever, patient be diagnosed with sepsis admitted to the ICU did have a positive blood culture with Klebsiella. Patient is status post surgical debridement of bilateral AKA wound and application of wound VAC culture has been obtained On today's evaluation that is 09/30/2024,the patient continues to be afebrile patient breathing comfortably currently on 2 L nasal cannula oxygen no vomiting diarrhea and the changes reported by nursing staff. No new lab has been repeated today Objective - Vital Signs Vital signs: Vital Signs Temp 97.7 F 09/30/24 08:39 Pulse 65 09/30/24 08:40 Resp 14 09/30/24 08:39 BP 91/53 09/30/24 08:39 Pulse Ox 98 09/30/24 08:39 FiO2 1 09/10/24 00:00 Intake & Output 09/29/24 09/30/24 09/30/24 18:59 06:59 18:59 Output Total 240 400 Balance -240 -400 Output: Drainage 0 Bilateral AKA wound vac 0 Urine 240 400 Other: Voiding Method Indwelling Catheter Indwelling Catheter Indwelling Catheter # Bowel Movements 1 - Exam Elderly female lying in bed in no distress Unlabored breathing Bilateral AKA stump currently dressed no drainage - Labs CBC & Chem 7: 09/29/24 11:08 09/29/24 11:08 Labs: Abnormal Lab Results - Last 24 Hours (Table) 09/29/24 09/29/24 Range/Units 11:08 11:08 RBC 2.99 L (3.80-5.40) m/uL Hgb 9.4 L (11.4-16.0) gm/dL Hct 30.0 L (34.0-46.0) % MCV 100.2 H (80.0-100.0) fL RDW 22.1 H (11.5-15.5) % Plt Count 108 L (150-450) k/uL Lymphocytes # 0.9 L (1.0-4.8) k/uL Chloride 110 H (98-107) mmol/L BUN 36 H (7-17) mg/dL Creatinine 2.32 H (0.52-1.04) mg/dL Calcium 7.6 L (8.4-10.2) mg/dL AST 241 H (14-36) U/L ALT 255 H (4-34) U/L Alkaline Phosphatase 175 H (38-126) U/L Total Protein 4.7 L (6.3-8.2) g/dL Albumin 1.8 L (3.5-5.0) g/dL Assessment and Plan (1) Bilateral lower leg cellulitis Current Visit: Yes Status: Acute Code(s): L03.116 - CELLULITIS OF LEFT LOWER LIMB; L03.115 - CELLULITIS OF RIGHT LOWER LIMB SNOMED Code(s): 881993230 (2) Sepsis Current Visit: Yes Status: Acute Code(s): A41.9 - SEPSIS, UNSPECIFIED ORGANISM SNOMED Code(s): 65200229 (3) Bacteremia Current Visit: Yes Status: Acute Code(s): R78.81 - BACTEREMIA SNOMED Code(s): 9218763 Plan: 1patient is in the hospital with sepsis in this patient with a fever tachycardia elevated white count source is likely bilateral AKA wound and concern for osteomyelitis to the right AKA stump site however the patient also have elevated liver enzyme and there was a history of vomiting underlying abdominal source monitor excluded. 2patient has been evaluated by vascular surgery and is status post debridement of the wound and deep culture completed on 09/10/2024 culture has been E. coli st rep and Serratia marcescens 3patient does have a positive blood culture with Klebsiella, repeat blood cultures has been negative 4 patient is afebrile and last white count has been normal, patient to continue with Zosyn however will place for possible hospice antibiotics can be safely discontinued family the bedside question answered Dictation was produced using [employer] dictation software. please excuse any grammatical, word or spelling errors. Time with Patient: Less than 30
--- NOTE | 2024-09-30 13:28 | P.PN ---
Subjective Progress Note Date: 09/30/24 Principal diagnosis: Cellulitis. The patient is seen today September 21, 2024 in follow-up on the 3 S. floor. She is currently resting in bed. Awake and alert in no acute distress. She is maintaining good O2 saturations in the 90s on room air. She pulled out her PICC line today. She pulled off her wound vacs. She has refused every medication scheduled for her. She has not ate or drank anything today. She refused hospice consult. Glucose 120. Follow-up blood cultures revealed no growth. She was to be receiving Zosyn. The patient is seen today September 22, 2024 in follow-up on the selective care unit. She is currently resting in bed. Awake and alert in no acute distress. He is maintaining good O2 saturations up to 100% on room air. She is afebrile. Hemodynamically stable. She continues to refuse her morning medications. Refusing to eat. Psychiatry has been consulted. Follow-up blood cultures revealing no growth. White count 9.6. Hemoglobin 9.0. Platelets 142. Sodium 148. Potassium 3.1. Bicarb 18. BUN 24. Creatinine 1.47. Glucose 88. She is continued on D5W at 50 mL/h. Heparin for DVT prophylaxis. Remains on Zosyn. The patient is seen today September 23, 2023 in follow-up on the selective care unit. She is currently resting in bed. Awake and alert in no acute distress. A bit more cooperative today. Taking some of her medications. Still with minimal oral intake. She remains on Symbicort, ipratropium bromide. D5W at 50 mL/h. Heparin for DVT prophylaxis. Antibiotics in the form of Zosyn. Continues to maintain good O2 saturation up to 100% on room air. Afebrile. Hemodynamically stable. White count 8.2. Hemoglobin 9.6. Platelets 151. Sodium 144. Potassium 3.6. Bicarb 17. BUN 26. Creatinine 1.56. AST 709. ALT 260 The patient is seen today September 24, 2023 in follow-up on the selective care unit. She is awake and alert in no acute distress. Maintaining good O2 saturations in the upper 90s on room air. She is afebrile. Hemodynamically stable. Most recent hemoglobin was 9.6. Follow-up blood cultures revealed no growth. She remains on Symbicort and DVT prophylaxis. Antibiotics in the form of Zosyn. Continued on D5W at 50 mL/h The patient is seen today September 25, 2023 in follow-up on the selective care unit. She is currently resting in bed. Awake and alert in no acute distress. Continues to maintain good O2 saturations in the mid to upper 90s on room air. Afebrile. Hemodynamically stable. She did allow a midline IV catheter to be placed and has not pulled it out thus far. She is continued on Zosyn. She is now on D5W with 3 A of bicarb at 75 mL/h per nephrology. White count 10.0. Hemoglobin 10.0. Platelets 150. Sodium 143. Potassium 3.3. Bicarb 18. BUN 31. Creatinine 2.01. AST 572. ALT 284. Alk phos 164. Glucose 79. Continued on Symbicort. Heparin for DVT prophylaxis. The patient is seen today September 26, 2023 in follow-up on the selective care unit. She is awake and alert in no acute distress. Sitting up in bed. Denies any worsening shortness of breath, cough or congestion. Maintaining good O2 saturations in the 90s on room air. She is continued on Symbicort and Atrovent. Heparin for DVT prophylaxis. D5W with 3 A of bicarb at 75 mL/h. Remains on Zosyn. Today's labs are pending. The patient is seen today September 27, 2023 in follow-up on the selective care unit. She is awake. Sitting up in bed. Denies any shortness of breath, cough or congestion. Maintaining good O2 saturations in the 90s on room air. Today she is less cooperative with nursing staff. She is spitting out her medications. Refusing updraft treatments. White count 9.9. Hemoglobin 10.0. Platelets 105. Sodium 141. Potassium 3.9. Bicarb 25. BUN 35. Creatinine 2.05. Glucose 103. She remains on Zosyn. The patient is seen today September 28, 2023 in follow-up on the selective care unit. She is currently awake and alert in no acute distress. Maintaining good O2 saturations in the 90s on room air. She continues to refuse medications today. She pulled off her wound VAC dressing. Pulling at her IV. Refusing to eat. She remains afebrile. Hemodynamically stable. Follow-up blood cultures revealed no growth. No new labs today. She remains on Zosyn. Heparin for DVT prophylaxis. The patient is seen today September 29, 2023 in follow-up on the selective care unit. She is currently resting in bed. Awake in no acute distress. Quite weak, frail and debilitated. She has been having failure to thrive. Maintaining O2 saturations in the 90s on room air. She has been afebrile. Hemodynamically stable. White count 5.8. Hemoglobin 9.4. Platelets 108. Sodium 143. Potassium 3.5. Bicarb 25. BUN 36. Creatinine 2.32. Glucose 85. AST 241. ALT 255. Albumin 1.8. She remains on Zosyn. Progress note dated September 30, 2024. The patient is seen again today in room 382. Currently, the patient is on O2, by nasal cannula at 3 L. She is getting saline at 10 cc an hour. Family members are in the room with the patient. The patient is a DO NOT RESUSCITATE patient. Yesterday, some of the family members are talking about possible hospice referral. No new labs today. The labs from September 29, have been reviewed. Objective - Vital Signs Vital signs: Vital Signs Temp 98.3 F 09/30/24 10:55 Pulse 78 09/30/24 10:55 Resp 14 09/30/24 10:55 BP 118/66 09/30/24 10:55 Pulse Ox 100 09/30/24 10:55 FiO2 1 09/10/24 00:00 Intake & Output 09/29/24 09/30/24 09/30/24 18:59 06:59 18:59 Intake Total 118 Output Total 240 400 Balance -240 -400 118 Intake: Oral 118 Output: Drainage 0 Bilateral AKA wound vac 0 Urine 240 400 Other: Voiding Method Indwelling Catheter Indwelling Catheter Indwelling Catheter # Bowel Movements 1 3 - Exam No acute distress, oriented 3. Currently on 3 L nasal cannula. HEENT examination is grossly unremarkable. Mucous membranes are moist. No oral lesions. Neck supple. Full range of motion. No adenopathy thyromegaly or neck vein distention. Cardiovascular examination reveals regular rhythm rate. S1-S2 normal. No S3 or S4. No discernible murmur noted. Lungs reveal clear breath sounds. Her sounds are equal bilaterally. No adventitious lung sounds including wheezes rhonchi or crackles. Abdomen soft bowel sounds are heard. No masses or tenderness. Extremities reveal bilateral [id number]-[id number] amputations, with superficial wounds, with dressings. Skin is without rash or lesion. Neurologic examination is brief but nonfocal. - Labs CBC & Chem 7: 09/29/24 11:08 09/29/24 11:08 Assessment and Plan Assessment: Septic shock secondary to infection/dehiscence of a left above-knee surgical wound and right above knee surgical wound. The patient has positive gram- negative septicemia with blood cultures being positive for Klebsiella pneumoniae and E. coli on 09/08/2024. Bilateral surgical stump dehiscence for above-knee amputation, status post debridement with cultures being positive for strep group B and Serratia and E. coli on the left and Klebsiella pneumonia with strep group B and E. coli on the right. Surgical debridement has been performed on 09/10/2024 and wound VAC has been applied and pulled off by patient 09/21/2024. Hypotension secondary to sepsis. CHF with impaired LV function with an ejection fraction of 30 to 35%, repeat limited echocardiogram showed an ejection fraction of 20 to 25% from 09/14/2024. Altered mentation/metabolic encephalopathy/delirium. COPD, stable. Coronary artery disease with previous stent placement in the mid LAD in October 2023. History of right-sided pleural effusion with a previous thoracentesis. Severe peripheral vascular disease as revealed on the previous CTA of the aorta with runoff and the patient has bilateral above-knee amputations. Chronic and ongoing tobacco smoking. History of CVA. Suspect relative adrenal insufficiency. Hypothyroidism. Transaminitis, improved. Elevated troponins. MARCY likely secondary to hypotension. History of hypertension. History of hyperlipidemia. Failure to thrive. Plan: Plan dated September 30, 2024. Seen today in room 382. Family members are at the bedside. The patient remains a DO NOT RESUSCITATE patient. Currently, the patient is on saline at 10 cc an hour. She has nasal O2 at 3 L, although, will be entered the room, she was not wearing it. Labs, x-rays, and medications are reviewed. We will continue to follow the patient, make recommendations along the way. Prognosis is poor. Time with Patient: Less than 30
[2024-09-30] MEDS: HYDROmorphone 0.5 MG/0.5 ML SYRINGE IVP STA (16:44)
--- NOTE | 2024-09-30 20:33 | P.PN ---
Subjective Patient is seen for follow-up for acute kidney injury. She is more awake today. Family present at bedside. Patient has an indwelling Infante catheter. Serum creatinine 2.3 yesterday Objective - Vital Signs Vital signs: Vital Signs Temp 98.3 F 09/30/24 15:29 Pulse 70 09/30/24 15:29 Resp 14 09/30/24 15:29 BP 111/68 09/30/24 15:29 Pulse Ox 94 L 09/30/24 15:29 FiO2 1 09/10/24 00:00 Intake & Output 09/30/24 09/30/24 10/01/24 06:59 18:59 06:59 Intake Total 118 Output Total 400 400 Balance -400 -282 Intake: Oral 118 Output: Urine 400 400 Other: Voiding Method Indwelling Catheter Indwelling Catheter # Bowel Movements 1 1 - Exam Patient is sleeping but arousable. Examination of the heart S1 and S2 Examination of the lungs bilateral breath sounds are heard Abdomen is soft nontender Examination of lower extremity shows bilateral AKA with stump wounds - Labs CBC & Chem 7: 09/29/24 11:08 09/29/24 11:08 Assessment and Plan Assessment: 1. Acute kidney injury secondary to ATN secondary to severe sepsis further worsen with the use of Farxiga and Entresto. Creatinine 2.3 yesterday. Baseline creatinine near 1. Abdominal ultrasound showed atrophic left kidney with no evidence of hydronephrosis. 2. Severe sepsis secondary to osteomyelitis of right AKA stump status post surgical debridement this admission. Blood cultures positive for E. coli and Klebsiella. On IV antibiotics. 3. Hypokalemia from poor intake. Replaced. 4. Hypernatremia from lack of oral water intake. Status post D5W. Improved. 5. Metabolic acidosis secondary to acute kidney injury. Improved with bicarb drip. 6. Coronary artery disease. 7. Chronic systolic CHF ejection fraction of 30 to 35% with mild mitral and tricuspid regurgitation. Plan: Continue off of diuretics. Repeat labs in a.m.
--- NOTE | 2024-10-01 06:00 | P.PN ---
Subjective Progress Note Date: 09/30/24 69 years old female who was sent from [facility] for altered mental status. 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 Since 07/2024. Patient also states she vomited once earlier. Patient fully awake and oriented, can answer questions appropriately and follows command, she does not look in distress. On admission her blood pressure was on the low side 68/53 5 sh she need to be transferred to ICU for start pressors, currently her blood pressure is better 102/50. She is having fever 103 on admission. She denies chest pain or dyspnea no right upper quadrant abdominal pain. No reports of diarrhea. Urine looks dark in the Infante catheter. No dysuria for the patient. Labs reviewed she has unremarkable CBC, BMP and LFT. Urinalysis is highly suspicious for infection Urine culture is pending Abdominal ultrasound showing cholelithiasis with minimal cholecystic fluid with thickening of the adjacent gallbladder suspicious for acute cholecystitis, however clinically does not behave like inflamed gallbladder Femur x-ray showing right AKA stump with hazy ostomy margin suspicious for osteomyelitis by the left AKA showing sharp ostomy margins. Chest x-ray showed combination of COPD and chronic CHF. Patient currently treated with broad-spectrum antibiotics with cefepime and IV vancomycin. Patient also on Ringer lactate at 130 mL/h She is continued on aspirin and Brilinta. 09/26/2023 Patient is seen and evaluated in follow-up on the selective care unit. She is awake and alert in no acute distress. Sitting up in bed. Denies any worsening shortness of breath, cough or congestion. Current O2 saturations in the 90s on room air. Blood work reveals sodium 143, potassium 4.3, BUNs/creatinine of 34/2.01; liver enzymes trending down on blood work yesterday She is continued on Symbicort and Atrovent. Heparin for DVT prophylaxis. D5W with 3 A of bicarb at 75 mL/h. Remains on Zosyn. Nephrology on board for acute renal injury; patient remains on IV bicarbonate infusion; Farxiga remains on hold; ibuprofen is discontinued; nephrology recommending holding Entresto if EGD continues to worsen 09/27/2023 Patient is seen and evaluated in follow-up on the selective care unit. She is awake. Sitting up in bed. Denies any shortness of breath, cough or congestion. Maintaining good O2 saturations in the 90s on room air. Today she is less cooperative with nursing staff. She is spitting out her medications. Refusing updraft treatments. - White count 9.9. Hemoglobin 10.0. Platelets 105. Sodium 141. Potassium 3.9. Bicarb 25. BUN 35. Creatinine 2.05. Glucose 103. She remains on Zosyn. Refusing updraft treatments -- Nephrology on board and recommending to Hep-Lock IV fluids, discontinue ibuprofen and maintain Infante at this time; continue to monitor strict NARENDRA's and avoid nephrotoxins Plan is to return to [facility] or home with home care -- Nephrology on board and recommending to Hep-Lock IV; nephrotoxins are recommended to be avoided; ibuprofen is discontinued 09/29/2024 Patient is seen in follow-up today and somnolent was just given Dilaudid earlier. Lengthy discussion was had with family regarding overall prognosis with continued ongoing comorbidities and ongoing infection with difficulty in healing and now worsening kidney functions, plan is to go home with hospice. [facility] consulted with case management following. Continue with pain management although recommend decreasing the dose of Dilaudid as patient is extremely lethargic and difficult to arouse after receiving. 09/30/2024 Patient is seen in follow-up today with multiple family members present at bedside. Patient is awake and tolerating some minimal intake. Patient is reporting significant pain and per nursing staff yelling out in pain. Have decreased the Dilaudid dose as patient becomes extremely lethargic and sleeps long amounts of time. Will discuss with family and if okay slightly increase the dose and also continue with Higgins as needed. Plan is for discharge home with [facility] on 10/01/2024. Arrangements are being made with family. Review of systems: Unable to obtain as patient is still lethargic although is awake PHYSICAL EXAMINATION: GENERAL: The patient is alert and oriented x1-2, more awake today, well developed, elderly appearing, ill-appearing HEENT: Pupils are round and equally reacting to light. EOMI. no scleral icterus. No conjunctival pallor. Normocephalic, atraumatic. No pharyngeal erythema. No thyromegaly. CARDIOVASCULAR: S1 and S2 muffled PULMONARY: diminished breath sounds bilaterally with no wheezing or rhonchi noted. ABDOMEN: soft. Nontender on exam. obese. non-distended, normoactive bowel sounds. No palpable organomegaly. MUSCULOSKELETAL: No joint swelling or deformity. EXTREMITIES: No cyanosis, clubbing, or pedal edema. Bilateral AKA noted NEUROLOGICAL: Gross neurological examination did not reveal any focal deficits. Diffuse weakness SKIN: No rashes. Assessment: Cellulitis and infections of bilateral AKA stumps, there is suspicion of osteomyelitis at the distal margins of the right stump per x-ray. Status post I&D by vascular surgery on 09/10 Possible acute urinary tract infection with suprapubic tenderness. Ruled out. Urine cultures negative Gallbladder disease with gallstones, but there is suspicion of acute cholecys titis Severe sepsis/septic shock, present on admission, improving secondary to lower extremity cellulitis Peripheral artery disease Acute transaminitis, trending down Obesity with a BMI 35.0 GI prophylaxis DVT prophylaxis No code Plan: Patient continued on antibiotics with infectious disease following and continue local wound care. Patient had been reporting significant pain due to the wound VAC and will be removed per patient request if needed Lengthy discussion was had with family regarding overall prognosis and treatment plan moving forward and given significant comorbidities, multiple hospitalizations, recent jail admissions, patient family would like to go home with hospice. Case management following and [facility] hospice is recommended by family. Family will need to arrange for care in the home and will be coming to stay with mother. Plan is for discharge home with [facility] hospice on 10/01/2024. Will adjust pain medications as patient is yelling out in pain and family requesting to increase medications. Will adjust Dilaudid and continue with as needed Higgins Overall prognosis is extremely poor and guarded at this time. Discharge to home with hospice in 24 hours The impression and plan of care has been dictated by Marquita Gavin nurse practitioner as directed. Dr. Cyrus MD I have performed a history and examination and MDM of this patient, discussed the same with the dictator, and agree with the dictator's assessment and plan as written ,documented as a scribe. Based on total visit time, I have performed more than 50% of the visit. Any additional findings or plans will be noted. Objective - Vital Signs Vital signs: Vital Signs Temp 96.8 F L 10/01/24 04:22 Pulse 50 L 10/01/24 04:22 Resp 16 10/01/24 04:22 BP 115/54 10/01/24 04:22 Pulse Ox 97 10/01/24 04:22 FiO2 1 09/10/24 00:00 Intake & Output 09/30/24 09/30/24 10/01/24 06:59 18:59 06:59 Intake Total 118 Output Total 400 400 Balance -400 -282 Intake: Oral 118 Output: Urine 400 400 Other: Voiding Method Indwelling Catheter Indwelling Catheter Indwelling Catheter # Bowel Movements 1 1 1 - Labs CBC & Chem 7: 09/29/24 11:08 09/29/24 11:08
[2024-10-01 07:59] VITALS: BP 113/64; PULSE 72; RESP 15; TEMP 98.2
--- NOTE | 2024-10-01 09:12 | P.DS ---
Providers Date of admission: 09/08/24 14:31 Expected date of discharge: 10/01/24 Attending physician: Cleveland Antonio MD Consults: 09/08/24 14:31 Consult Physician Routine Consulting Provider: Kim Garza Consult Reason/Comments: leg wounds, cellulitis Do you want consulting provider notified?: Yes 09/08/24 17:21 Consult Physician Urgent Consulting Provider: Liu Viveros Consult Reason/Comments: cc Do you want consulting provider notified?: Already Contacted 09/13/24 20:56 Consult Physician Urgent Consulting Provider: Owen Viveros Consult Reason/Comments: AMS Do you want consulting provider notified?: Already Contacted 09/22/24 09:25 Consult Physician Urgent Consulting Provider: Psychiatry - [facility] Psychiatry Consult Reason/Comments: medical incompetence Do you want consulting provider notified?: Yes 09/24/24 11:33 Consult Physician Urgent Consulting Provider: Cipriano Penaloza Consult Reason/Comments: GFR elevated, need nephro clearance for PICC insertion. Do you want consulting provider notified?: Yes Primary care physician: Janeth Miller DO Hospital Course: Final diagnosis Cellulitis and infections of bilateral AKA stumps, there is suspicion of osteomyelitis at the distal margins of the right stump per x-ray. Status post I&D by vascular surgery on 09/10 Possible acute urinary tract infection with suprapubic tenderness. Ruled out. Urine cultures negative Gallbladder disease with gallstones, but there is suspicion of acute cholecystitis Severe sepsis/septic shock, present on admission, improving secondary to lower extremity cellulitis Peripheral artery disease Acute transaminitis, trending down Obesity with a BMI 35.0 GI prophylaxis DVT prophylaxis No code Discharge disposition Patient is being discharged in a stable condition with guarded prognosis to home with visiting nurses [facility]. Total time taken is greater than 35 minutes. Hospital course This is a 69 year old female who was sent from [facility] for altered mental status. 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 Since 07/2024. Patient also states she vomited once earlier. Patient fully awake and oriented, can answer questions appropriately and follows command, she does not look in distress. On admission her blood pressure was on the low side 68/53 5 sh she need to be transferred to ICU for start pressors, currently her blood pressure is better 102/50. She is having fever 103 on admission. She denies chest pain or dyspnea no right upper quadrant abdominal pain. No reports of diarrhea. Urine looks dark in the Infante catheter. No dysuria for the patient. Labs reviewed she has unremarkable CBC, BMP and LFT. Urinalysis is highly suspicious for infection Urine culture is pending Abdominal ultrasound showing cholelithiasis with minimal cholecystic fluid with thickening of the adjacent gallbladder suspicious for acute cholecystitis, however clinically does not behave like inflamed gallbladder Femur x-ray showing right AKA stump with hazy ostomy margin suspicious for osteomyelitis by the left AKA showing sharp ostomy margins. Chest x-ray showed combination of COPD and chronic CHF. Patient currently treated with broad-spectrum antibiotics with cefepime and IV vancomycin. Patient also on Ringer lactate at 130 mL/h She is continued on aspirin and Brilinta. 09/26/2023 Patient is seen and evaluated in follow-up on the selective care unit. She is awake and alert in no acute distress. Sitting up in bed. Denies any worsening shortness of breath, cough or congestion. Current O2 saturations in the 90s on room air. Blood work reveals sodium 143, potassium 4.3, BUNs/creatinine of 34/2.01; liver enzymes trending down on blood work yesterday She is continued on Symbicort and Atrovent. Heparin for DVT prophylaxis. D5W with 3 A of bicarb at 75 mL/h. Remains on Zosyn. Nephrology on board for acute renal injury; patient remains on IV bicarbonate infusion; Farxiga remains on hold; ibuprofen is discontinued; nephrology recommending holding Entresto if EGD continues to worsen 09/27/2023 Patient is seen and evaluated in follow-up on the selective care unit. She is awake. Sitting up in bed. Denies any shortness of breath, cough or congestion. Maintaining good O2 saturations in the 90s on room air. Today she is less cooperative with nursing staff. She is spitting out her medications. Refusing updraft treatments. - White count 9.9. Hemoglobin 10.0. Platelets 105. Sodium 141. Potassium 3.9. Bicarb 25. BUN 35. Creatinine 2.05. Glucose 103. She remains on Zosyn. Refusing updraft treatments -- Nephrology on board and recommending to Hep-Lock IV fluids, discontinue ibuprofen and maintain Infante at this time; continue to monitor strict NARENDRA's and avoid nephrotoxins [facility] -- Nephrology on board and recommending to Hep-Lock IV; nephrotoxins are recommended to be avoided; ibuprofen is discontinued 09/29/2024 Patient is seen in follow-up today and somnolent was just given Dilaudid earlier. Lengthy discussion was had with family regarding overall prognosis with continued ongoing comorbidities and ongoing infection with difficulty in healing and now worsening kidney functions, plan is to go home with hospice. [facility] consulted with case management following. Continue with pain management although recommend decreasing the dose of Dilaudid as patient is extremely lethargic and difficult to arouse after receiving. 09/30/2024 Patient is seen in follow-up today with multiple family members present at bedside. Patient is awake and tolerating some minimal intake. Patient is reporting significant pain and per nursing staff yelling out in pain. Have decreased the Dilaudid dose as patient becomes extremely lethargic and sleeps long amounts of time. Will discuss with family and if okay slightly increase the dose and also continue with [place] as needed. Plan is for discharge home with [facility] on 10/01/2024. Arrangements are being made with family. 10/01/2024 currently no reports of chest pain, shortness of breath, or palpitations. Patient is afebrile. No reports of nausea or vomiting and patient is tolerating diet. Continue supportive care and comfort measures and is going home with [facility]. Overall prognosis is extremely poor and guarded at this time. Please refer to other consultation notes for further HPI. PHYSICAL EXAMINATION: GENERAL: The patient is alert and oriented x1-2, more awake today, well d eveloped, elderly appearing, ill-appearing HEENT: Pupils are round and equally reacting to light. EOMI. no scleral icterus. No conjunctival pallor. Normocephalic, atraumatic. No pharyngeal erythema. No thyromegaly. CARDIOVASCULAR: S1 and S2 muffled PULMONARY: diminished breath sounds bilaterally with no wheezing or rhonchi noted. ABDOMEN: soft. Nontender on exam. obese. non-distended, normoactive bowel sounds. No palpable organomegaly. MUSCULOSKELETAL: No joint swelling or deformity. EXTREMITIES: No cyanosis, clubbing, or pedal edema. Bilateral AKA noted NEUROLOGICAL: Gross neurological examination did not reveal any focal deficits. Diffuse weakness SKIN: No rashes. Please refer to medication reconciliation sheet for a list of medications. The impression and plan of care has been dictated by Marquita Gavin, Nurse Practitioner as directed. Dr. Cyrus MD I have performed a history and examination and MDM of this patient, discussed the same with the dictator, and agree with the dictator's assessment and plan as written ,documented as a scribe. Based on total visit time, I have performed more than 50% of the visit. Patient Condition at Discharge: Serious Plan - Discharge Summary Discharge Rx Participant: Yes New Discharge Prescriptions: New Loperamide [Imodium] 2 mg PO QID PRN cap PRN Reason: Diarrhea Melatonin 3 mg PO HS PRN tab PRN Reason: Insomnia HYDROcodone/APAP 10-325MG [[place] 10-325] 1 each PO Q6HR PRN tab PRN Reason: Pain Cholestyramine (with Sugar) [Questran Packet] 4 gm PO BID@1000,1800 #60 packet Levothyroxine Sodium [Synthroid] 75 mcg PO DAILY@0630 #30 tab Albuterol Inhaler [Ventolin Hfa Inhaler] 2 puff INHALATION RT-TID PRN each PRN Reason: Shortness Of Breath Or Wheezing Continue Acetaminophen [Tylenol 8 Hour] 650 mg PO Q6H PRN PRN Reason: Pain Sennosides [Senokot] 8.6 mg PO Q12H PRN PRN Reason: Constipation Aspirin 81 mg PO HS methocarbamoL [Robaxin-750] 750 mg PO QID PRN PRN Reason: Muscle Spasm Diphenhydramine Hcl Injection 50mg/Ml 25 mg IM Q4H PRN PRN Reason: Nausea Docusate [Colace] 100 mg PO BID Fluticasone Propion/Salmeterol [Fluticasone-Salmeterol 100-50] 1 puff INHALATION RT-BID@0700,1900 Midodrine HCl [ProAmantine] 2.5 mg PO TID@07,13,19 Ondansetron [Zofran] 4 mg PO Q8HR PRN PRN Reason: Nausea Umeclidinium Broaddus [Incruse Ellipta] 1 puff INHALATION RT-DAILY Omeprazole Magnesium [PriLOSEC OTC] 40 mg PO DAILY polyethylene glycoL 3350 [Miralax] 17 gm PO DAILY PRN PRN Reason: Constipation Sacubitril/Valsartan [Entresto 24 mg-26 mg Tablet] 1 tab PO BID Ticagrelor [Brilinta] 90 mg PO BID Pregabalin [Lyrica] 50 mg PO TID@0700,1300,1900 #6 cap Atorvastatin [Lipitor] 80 mg PO HS Discontinued Naloxone HCl 0.4 mg IM ONCE PRN PRN Reason: Opioid Reversal Naloxone HCl [Narcan] 4 mg NASAL ONCE PRN PRN Reason: Opioid Reversal Dapagliflozin Propanediol [Farxiga] 10 mg PO DAILY tab Metoprolol Succinate (ER) [Toprol XL] 12.5 mg PO DAILY tab Furosemide [Lasix] 20 mg PO DAILY Spironolactone [Aldactone] 12.5 mg PO DAILY Mirtazapine [Remeron] 15 mg PO HS traMADol HCL 50 mg PO Q6H PRN PRN Reason: Pain Discharge Medication List Acetaminophen [Tylenol 8 Hour] 650 mg PO Q6H PRN 07/24/24 [History] Omeprazole Magnesium [PriLOSEC OTC] 40 mg PO DAILY 07/24/24 [History] Sacubitril/Valsartan [Entresto 24 mg-26 mg Tablet] 1 tab PO BID 07/24/24 [History] Sennosides [Senokot] 8.6 mg PO Q12H PRN 07/24/24 [History] Ticagrelor [Brilinta] 90 mg PO BID 07/24/24 [History] polyethylene glycoL 3350 [Miralax] 17 gm PO DAILY PRN 07/24/24 [History] Pregabalin [Lyrica] 50 mg PO TID@0700,1300,1900 #6 cap 08/04/24 [Rx] Aspirin 81 mg PO HS 08/07/24 [History] methocarbamoL [Robaxin-750] 750 mg PO QID PRN 08/07/24 [History] Atorvastatin [Lipitor] 80 mg PO HS 09/08/24 [History] Diphenhydramine Hcl Injection 50mg/Ml 25 mg IM Q4H PRN 09/08/24 [History] Docusate [Colace] 100 mg PO BID 09/08/24 [History] Fluticasone Propion/Salmeterol [Fluticasone-Salmeterol 100-50] 1 puff INHALATION RT-BID@0700,1900 09/08/24 [History] Midodrine HCl [ProAmantine] 2.5 mg PO TID@07,13,19 09/08/24 [History] Ondansetron [Zofran] 4 mg PO Q8HR PRN 09/08/24 [History] Umeclidinium Broaddus [Incruse Ellipta] 1 puff INHALATION RT-DAILY 09/08/24 [History] Albuterol Inhaler [Ventolin Hfa Inhaler] 2 puff INHALATION RT-TID PRN each 10/01/24 [Rx] Cholestyramine (with Sugar) [Questran Packet] 4 gm PO BID@1000,1800 #60 packet 10/01/24 [Rx] HYDROcodone/APAP 10-325MG [[place] 10-325] 1 each PO Q6HR PRN tab 10/01/24 [Rx] Levothyroxine Sodium [Synthroid] 75 mcg PO DAILY@0630 #30 tab 10/01/24 [Rx] Loperamide [Imodium] 2 mg PO QID PRN cap 10/01/24 [Rx] Melatonin 3 mg PO HS PRN tab 10/01/24 [Rx] Follow up Appointment(s)/Referral(s): Janeth Miller DO [Primary Care Provider] - 1-2 days Tae Navarrete DO [Doctor of Osteopathic Medicine] - 2 Weeks [facility] [NON-STAFF] - 1 Week Kleber Aleman MD [STAFF PHYSICIAN] - 1 Week Activity/Diet/Wound Care/Special Instructions: Patient is going home with [facility] Activity as tolerated Continue pain control supportPatient is going home with [facility] Activity as tolerated Continue pain control support Discharge Disposition: HOME WITH HOSPICE
--- NOTE | 2024-10-01 12:29 | P.PN ---
Subjective Progress Note Date: 10/01/24 Principal diagnosis: Reason for follow-up is sepsis bacteremia Patient is a 69-year-old female with multiple comorbidity patient did have a significant PAD and did have a bilateral [id number] amputations with subsequent dehiscence of the wound patient has been sent from the local senior living to the hospital with fever, patient be diagnosed with sepsis admitted to the ICU did have a positive blood culture with Klebsiella. Patient is status post surgical debridement of bilateral AKA wound and application of wound VAC culture has been obtained On today's evaluation that is 10/01/2024,the patient remains to be afebrile, patient is on 4 L nasal cannula supplemental oxygen patient seen be slightly lethargic elderly good historian no vomiting or diarrhea has been reported by the nursing staff. No new labs has been repeated today Objective - Vital Signs Vital signs: Vital Signs Temp 98.2 F 10/01/24 07:31 Pulse 72 10/01/24 07:32 Resp 15 10/01/24 07:31 BP 113/64 10/01/24 07:31 Pulse Ox 92 L 10/01/24 07:31 FiO2 1 09/10/24 00:00 Intake & Output 09/30/24 10/01/24 10/01/24 18:59 06:59 18:59 Intake Total 118 120 Output Total 400 350 Balance -282 -350 120 Intake: Oral 118 120 Output: Urine 400 350 Other: Voiding Method Indwelling Catheter Indwelling Catheter Indwelling Catheter # Bowel Movements 1 1 - Exam Elderly female lying in bed in no distress Unlabored breathing, decreased breath sound at base Abdominal soft no tenderness Bilateral AKA stump currently dressed no drainage - Labs CBC & Chem 7: 09/29/24 11:08 09/29/24 11:08 Assessment and Plan (1) Bilateral lower leg cellulitis Status: Acute Code(s): L03.116 - CELLULITIS OF LEFT LOWER LIMB; L03.115 - CELL ULITIS OF RIGHT LOWER LIMB SNOMED Code(s): 881066747 (2) Sepsis Status: Acute Code(s): A41.9 - SEPSIS, UNSPECIFIED ORGANISM SNOMED Code(s): 93726796 (3) Bacteremia Status: Acute Code(s): R78.81 - BACTEREMIA SNOMED Code(s): 2072936 Plan: 1patient is in the hospital with sepsis in this patient with a fever tachycardia elevated white count source is likely bilateral AKA wound and concern for osteomyelitis to the right AKA stump site however the patient also have elevated liver enzyme and there was a history of vomiting underlying abdominal source monitor excluded. 2patient has been evaluated by vascular surgery and is status post debridement of the wound and deep culture completed on 09/10/2024 culture has been E. coli strep and Serratia marcescens 3patient does have a positive blood culture with Klebsiella, repeat blood cultures has been negative 4 patient is afebrile and last white count has been normal, plan is for hospice hence no need for antibiotic on discharge we will discontinue Zosyn Dictation was produced using P[employer] dictation software. please excuse any grammatical, word or spelling errors. Time with Patient: Less than 30
--- NOTE | 2024-10-01 13:50 | PN ---
PROGRESS NOTE SUBJECTIVE: This is a 69-year-old female, who is seen today in room 382. The patient continues on oxygen at 3 L. She is not receiving any IV fluids. According to the mechanical planner, the patient will be discharged to home hospice. No new labs today. The last labs are done on September 29. No recent microbiologic sampling. No recent chest x- ray. PHYSICAL EXAMINATION: VITAL SIGNS: Current vital signs are reviewed. Temperature 98.2, heart rate 72, respiratory rate 16, blood pressure 113/64 with mean of 80 and saturations on 3 L are 97%. GENERAL: She appears in no acute distress. She is resting comfortably in bed. HEENT: Grossly unremarkable. NECK: Supple. Full range of motion. No adenopathy. Neck veins are flat. No neck vein distention. No adenopathy or thyromegaly. CARDIOVASCULAR: Reveals regular rhythm and rate. S1, S2 normal. LUNGS: Reveal clear breath sounds. No wheezes or rhonchi. ABDOMEN: Soft. Bowel sounds are heard. EXTREMITIES: Reveal bilateral [id number] amputations. SKIN: Without rash. NEUROLOGIC: Brief, but nonfocal. ASSESSMENT: 1. Septic shock secondary to Klebsiella pneumoniae and E coli infections. 2. Bilateral surgical stump dehiscence, secondary to infection, and sepsis. 3. Hypotension, secondary to sepsis. 4. Congestive heart failure with impaired LV function. 5. Altered mentation secondary to metabolic encephalopathy. 6. Chronic obstructive pulmonary disease. 7. Coronary artery disease with previous stent placement in the mid left anterior descending. 8. History of right-sided pleural effusion with previous thoracentesis. 9. Severe peripheral vascular occlusive disease. 10.Chronic and ongoing tobacco use. 11.History of cerebrovascular accident. 12.Suspected relative adrenal insufficiency. 13.Hypothyroidism. 14.Acute kidney injury. 15.Hypertension. 16.Hyperlipidemia. 17.Failure to thrive. PLAN: The patient is seen today in room 382. The patient is stable. She continues on oxygen at 3 L. No IV fluids. The patient apparently will be discharged to home hospice. Labs, x-rays, and all medications are reviewed. MMODL / IJN: [id number] /
--- NOTE | 2024-10-01 18:22 | P.PN ---
Subjective Patient is seen for follow-up for acute kidney injury. She is awake and complaining of abdominal pain There are plans to proceed with hospice care. Objective - Vital Signs Vital signs: Vital Signs Temp 98.2 F 10/01/24 07:31 Pulse 72 10/01/24 07:32 Resp 15 10/01/24 07:31 BP 113/64 10/01/24 07:31 Pulse Ox 92 L 10/01/24 07:31 FiO2 1 09/10/24 00:00 Intake & Output 09/30/24 10/01/24 10/01/24 18:59 06:59 18:59 Intake Total 118 120 Output Total 400 350 Balance -282 -350 120 Intake: Oral 118 120 Output: Urine 400 350 Other: Voiding Method Indwelling Catheter Indwelling Catheter Indwelling Catheter # Voids 125 # Bowel Movements 1 1 - Exam Patient is sleeping but arousable. Examination of the heart S1 and S2 Examination of the lungs bilateral breath sounds are heard Abdomen is soft nontender Examination of lower extremity shows bilateral AKA with stump wounds - Labs CBC & Chem 7: 09/29/24 11:08 09/29/24 11:08 Assessment and Plan Assessment: 1. Acute kidney injury secondary to ATN secondary to severe sepsis further worsen with the use of Farxiga and Entresto. Creatinine 2.3. Baseline creatinine near 1. Abdominal ultrasound showed atrophic left kidney with no evidence of hydronephrosis. 2. Severe sepsis secondary to osteomyelitis of right AKA stump status post paul gical debridement this admission. Blood cultures positive for E. coli and Klebsiella. On IV antibiotics. 3. Hypokalemia from poor intake. Replaced. 4. Hypernatremia from lack of oral water intake. Status post D5W. Improved. 5. Metabolic acidosis secondary to acute kidney injury. Improved with bicarb drip. 6. Coronary artery disease. 7. Chronic systolic CHF ejection fraction of 30 to 35% with mild mitral and tricuspid regurgitation. Plan: Agree with plans for hospice given the significant underlying comorbidities.
--- NOTE | 2024-10-06 10:10 | CDI ---
Documentation Clarification Form Date: 10/06/2024 09:59:00 AM From: Ami Portillo RN, CCDS Phone: [phone] Admit Date: 09/08/2024 02:31:00 PM Patient Name: Ni Seay Visit Number: [id number] Discharge Date: 10/01/2024 12:01:00 PM ATTENTION: The Clinical Documentation Specialists (CDI) and [facility] Coding Staff appreciate your assistance in clarifying documentation. Please respond to the clarification below the line at the bottom and electronically sign. The CDI & [facility] Coding staff will review the response and follow-up if needed. Please note: Queries are made part of the Legal Health Record. If you have any questions, please contact the author of this message via ITS. Doctor Tae Polk Sharp surgical debridement of bilateral above-knee amputation wounds is documented on 09/10/24. Unfortunately, some required elements have not been documented. Additional clarification regarding the procedure is requested. History/Risk Factors: Hyperlipidemia, Hypertension, Hyperlipidemia, Hypertension, Clinical Indicators: 69-year-old female found to have bilateral above-knee amputation wound dehiscence. Right wound: The most lateral wound measured 5 cm x 5 cm x 4 mm in depth and the medial wound measured 7 x 4 cm in length and width and 1.5 cm in depth. Treatment: Zosyn 3.375 GM IVPB Q 8 HRS Bilateral Wound Vac per orders Please clarify the procedure performed: [ x] Excisional debridement (the removal of necrotic, devitalized tissue or slough by means of cutting away of tissue) [ x] Non-excisional debridement (the removal of necrotic, devitalized tissue or slough by means of flushing, brushing, or washing. (Irrigation) (Template Last Revised: May 2024) MTDD
== END 2024-10-01 12:01 | disposition hospice, home (50) | DRG 500 ==
LOC: EC 12:50 → 5NMEDONC 14:31 → 2SICU 18:33 → 3SCARD 09-16 15:10
PROVIDERS: ADMIT Internal Medicine; ATTEND Internal Medicine
PROC: 06HY33Z Insertion of Infusion Device into Lower Vein, Percutaneous Approach (ICD-10-PCS; 2024-09-08)
PROC: 3E043XZ Introduction of Vasopressor into Central Vein, Percutaneous Approach (ICD-10-PCS; 2024-09-08)
PROC: 0KBR0ZZ Excision of Left Upper Leg Muscle, Open Approach (ICD-10-PCS; 2024-09-10)
PROC: 0KBQ0ZZ Excision of Right Upper Leg Muscle, Open Approach (ICD-10-PCS; principal; 2024-09-10 09:15)
PROC: 30233N1 Transfusion of Nonautologous Red Blood Cells into Peripheral Vein, Percutaneous Approach (ICD-10-PCS; 2024-09-16)
DX: T87.44 Infection of amputation stump, left lower extremity (principal); A41.51 Sepsis due to Escherichia coli [E. coli]; G92.8 Other toxic encephalopathy; R65.21 Severe sepsis with septic shock; K72.00 Acute and subacute hepatic failure without coma; N17.0 Acute kidney failure with tubular necrosis; G93.41 Metabolic encephalopathy; K80.10 Calculus of gallbladder with chronic cholecystitis without obstruction; I11.0 Hypertensive heart disease with heart failure; M86.8X5 Other osteomyelitis, thigh; L03.115 Cellulitis of right lower limb; L03.116 Cellulitis of left lower limb; T87.43 Infection of amputation stump, right lower extremity; B96.1 Klebsiella pneumoniae [K. pneumoniae] as the cause of diseases classified elsewhere; B95.1 Streptococcus, group B, as the cause of diseases classified elsewhere; B96.89 Other specified bacterial agents as the cause of diseases classified elsewhere; I27.22 Pulmonary hypertension due to left heart disease; I73.9 Peripheral vascular disease, unspecified; J44.9 Chronic obstructive pulmonary disease, unspecified; E66.01 Morbid (severe) obesity due to excess calories; E03.8 Other specified hypothyroidism; I08.1 Rheumatic disorders of both mitral and tricuspid valves; I50.22 Chronic systolic (congestive) heart failure; E27.40 Unspecified adrenocortical insufficiency; D62 Acute posthemorrhagic anemia; E87.0 Hyperosmolality and hypernatremia; E87.20 Acidosis, unspecified; T81.31XA Disruption of external operation (surgical) wound, not elsewhere classified, initial encounter; Z51.5 Encounter for palliative care; Z66 Do not resuscitate; R62.7 Adult failure to thrive; Z89.611 Acquired absence of right leg above knee; Z89.612 Acquired absence of left leg above knee; Z68.36 Body mass index [BMI] 36.0-36.9, adult; K59.00 Constipation, unspecified; I25.10 Atherosclerotic heart disease of native coronary artery without angina pectoris; E78.5 Hyperlipidemia, unspecified; F17.210 Nicotine dependence, cigarettes, uncomplicated; E87.6 Hypokalemia; N26.1 Atrophy of kidney (terminal); T38.3X5A Adverse effect of insulin and oral hypoglycemic [antidiabetic] drugs, initial encounter; T46.5X5A Adverse effect of other antihypertensive drugs, initial encounter; R09.02 Hypoxemia; R54 Age-related physical debility; R91.1 Solitary pulmonary nodule; Y83.5 Amputation of limb(s) as the cause of abnormal reaction of the patient, or of later complication, without mention of misadventure at the time of the procedure; Z79.51 Long term (current) use of inhaled steroids; Z79.02 Long term (current) use of antithrombotics/antiplatelets; Z79.82 Long term (current) use of aspirin; Z79.899 Other long term (current) drug therapy; Z79.84 Long term (current) use of oral hypoglycemic drugs; I25.2 Old myocardial infarction; Z86.73 Personal history of transient ischemic attack (TIA), and cerebral infarction without residual deficits; Z95.5 Presence of coronary angioplasty implant and graft; Z86.14 Personal history of Methicillin resistant Staphylococcus aureus infection; Z79.01 Long term (current) use of anticoagulants
CPT/HCPCS: 36415; 36573; 51702; 70450; 71045; 76700; 80048; 80053; 80202; 81001; 82140; 82533; 83605; 83735; 84132; 84145; 84439; 84443; 84484; 85025; 85027; 85610; 85730; 86850; 86900; 86901; 86920; 87040; 87070; 87075; 87077; 87086; 87186; 87205; 87324; 93005; 93308; 93880; 94640; 94760; 95816; 96361; 96365; 96366; 96367; 96368; 96375; 99291